=== PATIENT | female | born 1955 | race Caucasian/White ===

== ENCOUNTER 2024-02-26 05:35 | Outpatient (REF) | payer OTHER, SELFPAY ==
[2024-02-26 08:00] LABS: Basophils Absolute Auto 0.1 10^3/uL (0.0-0.1); Basophils Percent Auto 0.6 % (0.2-2.0); Eosinophils Absolute Auto 0.2 10^3/uL (0.0-0.7); Eosinophils Percent Auto 2.1 % (0.9-7.0); Hematocrit 33.3 % (36.0-48.0); Hemoglobin 10.8 g/dL (12.0-16.0); Immature Granulocytes Abs Auto 0.06 10^3/uL (0.00-0.03); Immature Granulocytes Pct Auto 0.6 % (0.0-0.5); Lymphocytes Absolute Auto 1.3 10^3/uL (1.2-3.8); Lymphocytes Percent Auto 11.8 % (20.5-60.0); Mean Corpuscular HGB Conc 32.4 g/dL (29.9-35.2); Mean Corpuscular Volume 95.7 fL (81.0-99.0); Mean Platelet Volume 8.7 fL (9.5-13.5); Monocytes Absolute Auto 0.6 10^3/uL (0.3-0.8); Monocytes Percent Auto 5.3 % (1.7-12.0); Neutrophils Absolute Auto 8.5 10^3/uL (1.4-6.5); Neutrophils Percent Auto 79.6 % (43.0-75.0); Platelet Count 203 10^3/uL (150-450); Red Blood Count 3.48 10^6/uL (4.20-5.40); Red Cell Distribution Width 13.5 % (11.0-15.0); White Blood Count 10.7 10^3/uL (4.0-11.0)
[2024-02-26 08:09] LABS: BUN Creatinine Ratio 19.6; Calcium 9.3 mg/dL (8.5-10.1); Chloride 101 mmol/L (98-107); Estimated GFR (African America 46 (>=60); Estimated GFR (Non-African Ame 38 (>=60); Glucose 91 mg/dL (74-106); Sodium 138 mmol/L (136-145)
== END 2024-02-26 05:36 | disposition home or self-care (01) ==
LOC: LAB 05:35
PROVIDERS: Visit Provider Family Medicine
DX: A41.9 Sepsis, unspecified organism (principal)
CPT/HCPCS: 36415; 80048; 85025

== ENCOUNTER 2024-03-04 03:14 | Outpatient (REF) | payer OTHER, SELFPAY ==
--- OUTSIDE RECORDS SUMMARY | 2024-03-04 03:23 | XMS_ITS ---
Author Name Auto Generated Organization OHIP Support Name Relationship Address Phone Cedric Jack Next of Kin [address] [place] [address] + Keturah Mobley Next of Kin [facility] [place] [address] + Gilmar Jacke Next of Kin [facility] [place] [address] + Keturah Mobley Next of Kin [address] [place] [phone] + HAYLEY CORDERO Next of Kin Unknown [phone] JAIME JACK Next of Kin Unknown [phone] CANELO JACK Next of Kin Unknown + Cedric Jack Next of Kin [address] [place] [address] + Keturah Mobley Next of Kin [facility] [place] [address] + HAYLEY CORDERO Next of Kin Unknown [phone] JAIME JACK Next of Kin Unknown [phone] CANELO JACK Next of Kin Unknown + HAYLEY CORDERO Next of Kin Unknown [phone] GUERO JAIME Next of Kin Unknown [phone] CANELO JACK Next of Kin Unknown + Guero Cedric Next of Kin [address] [place] [address] + Keturah Mobley Next of Kin [address] [place] [address] + Cedric Jack Next of Kin [address] [place] [address] + Keturah Mobley Next of Kin [address] [place] [address] + CORDERO, HAYLEY Next of Kin Unknown [phone] KLOS, JAIME Next of Kin Unknown [phone] KLOS, CANELO Next of Kin Unknown + CORDERO, HAYLEY Next of Kin Unknown [phone] KLOS, JAIME Next of Kin Unknown [phone] KLOS, CANELO Next of Kin Unknown + CORDERO, HAYLEY Next of Kin Unknown [phone] KLOS, JAIME Next of Kin Unknown [phone] KLOS, CANELO Next of Kin Unknown + KLOS, LETICIA Next of Kin Unknown + KLOS, LETICIA Next of Kin Unknown + KLOS, LETICIA Next of Kin Unknown + KLOS, LETICIA Next of Kin Unknown + KLOS, LETICIA Next of Kin Unknown + KLOS, LETICIA Next of Kin Unknown + KLOS, LETICIA Next of Kin Unknown + KLOS, LETICIA Next of Kin Unknown + KLOS, LETICIA Next of Kin Unknown + KLOS, LETICIA Next of Kin Unknown + KLOS, LETICIA Next of Kin Unknown + Care Team Providers Care Certified Energy Manager Name Role Phone Joceline Ortega Attending Unavailable Dr. Latrice Perez Primary Care Unavailab Joceline Panda Referring Unavailable Joceline Ortega Admitting Unavailable Dr. Latrice Perez Primary Care Unavailab JOCELINE Panda Attending Unavailable JOCELINE ORTEGA Referring Unavailable Hill, Dr. Latrice Whitfield Primary Care Unavailab le JES, JOCELINE Attending Unavailable JOCELINE ORTEGA Referring Unavailable Hill, Dr. Latrice Whitfield Primary Care Unavailab le Hill, Dr. Latrice Whitfield Primary Care Unavailab le Hardin, Dr. Latrice Whitfield Primary Care Unavailab le Hardin, Dr. Latrice Whitfield Primary Care Unavailab le Hardin, Dr. Latrice Whitfield Primary Care Unavailab le Hardin, Dr. Latrice Whitfield Primary Care Unavailab le Hardin, Dr. Latrice Whitfield Primary Care Unavailab le Hardin, Dr. Latrice Whitfield Primary Care Unavailab le Hardin, Dr. Latrice Whitfield Referring Unavailab le JOCELINE ORTEGA Attending Unavailable CHRIS, LATRICE Bartholomew Attending Unavailable HILL, LATRICE Bartholomew Referring Unavailable BARBARA, NANDO Ferreira Attending Unavailable DIDABDIRIZAK NANCE Attending Unavailable KUBITJosiah, NANDO Ferreira Attending Unavailable HILL, LATRICE Bartholomew Attending Unavailable HILL, LATRICE Bartholomew Referring Unavailable HILL, LATRICE Bartholomew Attending Unavailable HILL, LATRICE Bartholomew Referring Unavailable Hardin, Latrice Primary Care Unavailable Pradeep, Kianam Admitting Unavailable Ari Fernández Attending Unavailable [facility] Care Unavailable Andres Monterroso Attending Unavailabl Andres Ledezma Admitting Unavailabl e [facility] Care Unavailable Cheryl De La Garza Admitting Unavailable Cheryl De La Garza Attending Unavailable Caridad Ortegaa Admitting Unavailable Joceline Ortega Attending Unavailable [facility] Care Unavailable [facility] Care Unavailable Medardo Darling Admitting Unavailable Mazin Ortiz Attending Unavailab Vincenzo Ricketts Admitting Unavailabl e Pradeep Essam Consulting Unavailable Sawyer Dozier Attending Unavailable [facility] Primary Care Unavailable Deep Eubanks Consulting Unavailable Brooke Del Cid Consulting Unavailable Dandre Benson Consulting Unavailable Christa Hatch Consulting Unavailable Jermaine Rogel Consulting Unavail able Dara Fernandez Consulting Unavailable Galileo Kennedy Consulting Unavailab Brinda Baeza Consulting Unavailable Ortega, Joceline Consulting Unavailable Fabio, Olinda Bobeb Consulting Unavailab Connie Santillan Consulting Unavailable Raquel Schneider Consulting Unavailable Clarice Mcguire Consulting Unavailable [facility] Primary Care Unavailable [place] Consulting Unavailable Paige Aburto Admitting Unavailable Fahad Dobson Attending Unavailable Sydnie Milian Consulting Unavailable [facility] Primary Care Unavailable David Lane Attending Unavailable Ari Fernández Consulting Unavailable Medardo Darling Admitting Unavailable Andres Witt Admitting Unavailable Andres Witt Attending Unavailable Hardin, Latrice Primary Care Unavailable Hardin, Latrice Primary Care Unavailable Dwayne Apodaca Jr Admitting Unavailable Dwayne Apodaca Jr Attending Unavailable Hardin, Latrice Primary Care Unavailable Robyn Robin Admitting Unavailable Robyn Robin Attending Unavailable Hardin, Latrice Primary Care Unavailable Robyn Robin Admitting Unavailable NainpaRobyn Attending Unavailable Aryan Kellogg Admitting Unavailable Aryan Kellogg Attending Unavailable Hardin, Latrice Primary Care Unavailable Hardin, Latrice Primary Care Unavailable Aleksandr Pascual Admitting Unavailable Aleksandr Pascual Attending Unavailable Aleksandr Pascual Attending Unavailable PROBLEMS DATE TYPE CONDITION / CODE ATTENDING STATUS [facility] 02/13/2024 Unknown Nausea with vomi ting, unspecified / R11.2(ICD-10) [facility] 02/13/2024 Unknown Diarrhea, unspec ified / R19.7(ICD-10) [facility] 02/13/2024 Unknown Dehydration / E86.0(ICD-10) [facility] 02/13/2024 Unknown Type 2 diabetes mellitus with diabetic neuropathy, unspecified / E11.40(ICD-10) [facility] 02/13/2024 Unknown Type 2 diabetes mellitus with unspecified diabetic retinopathy without macular edema / E11.319(ICD-10) [facility] 02/13/2024 Unknown Type 2 diabetes mellitus with hyperglycemia / E11.65(ICD-10) [facility] 02/13/2024 Unknown Atherosclerotic heart disease of [place] coronary artery without angina pectoris / I25.10(ICD-10) [facility] 02/13/2024 Unknown Acute respirator y failure with hypoxia / J96.01(ICD-10) [facility] 02/13/2024 Unknown Morbid (severe) obesity with alveolar hypoventilation / E66.2(ICD-10) [facility] 02/13/2024 Unknown Elevated white b lood cell count, unspecified / D72.829(ICD-10) [facility] 02/13/2024 Unknown Varicose veins o f right lower extremity with ulcer of unspecified site / I83.019(ICD-10) [facility] 02/13/2024 Unknown Varicose veins o f left lower extremity with ulcer of unspecified site / I83.029(ICD-10) [facility] 02/13/2024 Unknown Non-pressure chr onic ulcer of unspecified part of right lower leg with unspecified severity / L97.919(ICD-10) [facility] 02/13/2024 Unknown Non-pressure chr onic ulcer of unspecified part of left lower leg with unspecified severity / L97.929(ICD-10) [facility] 02/13/2024 Unknown Hypo-osmolality and hyponatremia / E87.1(ICD-10) [facility] 02/13/2024 Unknown Chronic systolic (congestive) heart failure / I50.22(ICD-10) [facility] 02/13/2024 Unknown Coronary angiopl asty status / Z98.61(ICD-10) [facility] 02/13/2024 Unknown Hypomagnesemia / E83.42(ICD-10) [facility] 02/13/2024 Unknown Other ventricula r tachycardia / I47.29(ICD-10) [facility] 02/13/2024 Unknown Cellulitis, unspecified / L03.90(ICD-10) [facility] 02/13/2024 Unknown Generalized abdo jeremiah pain / R10.84(ICD-10) Andres Witt [facility] 01/04/2024 Unknown Non-pressure chr onic ulcer of unspecified part of right lower leg limited to breakdown of skin / L97.911(ICD-10) Cheryl De La Garza [facility] 12/14/2023 Unknown Pain in left ugo ulder / CE(ICD-10) Aryan Kellogg [facility] 12/13/2023 Unknown Atherosclerosis of [place] arteries of extremities with intermittent claudication, bilateral legs / CE(ICD-10) Andres Monterroso [facility] 09/11/2023 Unknown Radiculopathy, l umbar region / CE(ICD-10) NainchuchoRobyn Ru [facility] 08/31/2023 Unknown Sepsis, unspecif ied organism / CE(ICD-10) Doamekpor, Mazin E [facility] 08/31/2023 Unknown Unspecified abdo jeremiah pain / R10.9(ICD-10) Doamekpor, Mazin E [facility] 08/31/2023 Unknown Fever, unspecifi ed / R50.9(ICD-10) Doamekpor, Mazin E [facility] 08/31/2023 Unknown Hypokalemia / E87.6(ICD-10) Doamekpor, Mazin E [facility] 08/31/2023 Unknown Chronic kidney disease, stage 3 unspecified / N18.30(ICD-10) Doamekpor, Mazin E [facility] 08/31/2023 Unknown Type 2 diabetes mellitus with diabetic chronic kidney disease / E11.22(ICD-10) Doamekpor, Mazin E [facility] 08/31/2023 Unknown Constipation, unspecified / K59.00(ICD-10) Doamekpor, Mazin E [facility] 08/31/2023 Unknown Unspecified skin changes / R23.9(ICD-10) Doamekpor, Mazin E [facility] 08/31/2023 Unknown Gastro-esophagea l reflux disease without esophagitis / K21.9(ICD-10) Doamekpor, Mazin E [facility] 08/31/2023 Unknown Essential (prima ry) hypertension / I10(ICD-10) [facility] Unknown Morbid (severe) obesity due to excess calories / E66.01(ICD-10) [facility] 08/31/2023 Unknown Body mass index [BMI] 50.0-59.9, adult / Z68.43(ICD-10) [facility] 08/31/2023 Unknown Diverticulitis o f intestine, part unspecified, without perforation or abscess without bleeding / K57.92(ICD-10) [facility] 08/31/2023 Unknown Radiculopathy, l umbar region / M54.16(ICD-10) [facility] 06/01/2023 Active SEPSIS, UNSPECIF IED ORGANISM / A41.9(ICD-10) [facility] 06/01/2023 Active BACTEREMIA / R78.81(ICD-10) [facility] 06/01/2023 Active TYPE 2 DIABETES MELLITUS WITH DIABETIC CHRONIC KIDNEY DISEASE / E11.22(ICD-10) [facility] 06/01/2023 Active RETENTION OF URI NE, UNSPECIFIED / R33.9(ICD-10) [facility] 06/01/2023 Active HYPOKALEMIA / E87.6(ICD-10) [facility] 06/01/2023 Active HYPOTENSION, UNSPECIFIED / I95.9(ICD-10) [facility] 06/01/2023 Active DEPRESSION, UNSPECIFIED / F32.A(ICD-10) Alkesandr Pascual [facility] 05/31/2023 Active HYPERTENSIVE HEA RT AND CHRONIC KIDNEY DISEASE WITH HEART FAILURE AND STAGE 1 THROUGH STAGE 4 CHRONIC KIDNEY DISEASE, OR UNSPECIFIED CHRONIC KIDNEY DISEASE / I13.0(ICD-10) Aleksandr Pascual [facility] 05/31/2023 Active CHRONIC DIASTOLI C (CONGESTIVE) HEART FAILURE / I50.32(ICD-10) [facility] 05/31/2023 Active ACUTE KIDNEY SHANDA LURE, UNSPECIFIED / N17.9(ICD-10) [facility] 05/31/2023 Active URINARY TRACT INFECTION, SITE NOT SPECIFIED / N39.0(ICD-10) [facility] 05/31/2023 Active NON-ST ELEVATION (NSTEMI) MYOCARDIAL INFARCTION / I21.4(ICD-10) [facility] Active NONRHEUMATIC AOR TIC (VALVE) STENOSIS / I35.0(ICD-10) [facility] Active CHRONIC KIDNEY DISEASE, STAGE 3 UNSPECIFIED / N18.30(ICD-10) [facility] 05/31/2023 Active HYPERLIPIDEMIA, UNSPECIFIED / E78.5(ICD-10) [facility] 05/31/[facility]23 Active TYPE 2 DIABETES MELLITUS WITHOUT COMPLICATIONS / E11.9(ICD-10) [facility] 05/31/2023 Active ATHEROSCLEROTIC HEART DISEASE OF [place] CORONARY ARTERY WITHOUT ANGINA PECTORIS / I25.10(ICD-10) [facility] 05/31/2023 Active GASTRO-ESOPHAGEA L REFLUX DISEASE WITHOUT ESOPHAGITIS / K21.9(ICD-10) [facility] 05/31/2023 Active MORBID (SEVERE) OBESITY DUE TO EXCESS CALORIES / E66.01(ICD-10) [facility] Active UNSPECIFIED OSTEOARTHRITIS, UNSPECIFIED SITE / M19.90(ICD-10) [facility] 05/31/2023 Active MORBID (SEVERE) OBESITY WITH ALVEOLAR HYPOVENTILATION / E66.2(ICD-10) [facility] 05/31/2023 Active POLYNEUROPATHY, UNSPECIFIED / G62.9(ICD-10) [facility] 05/31/[facility]23 Active DIVERTICULOSIS O F INTESTINE, PART UNSPECIFIED, WITHOUT PERFORATION OR ABSCESS WITHOUT BLEEDING / K57.90(ICD-10) Aleksandr Pascual [facility] 05/31/2023 Active PRESENCE OF FREDDY NARY ANGIOPLASTY IMPLANT AND GRAFT / Z95.5(ICD-10) Aleksandr Pascual [facility] 05/31/2023 Active CORONARY ANGIOPL ASTY STATUS / Z98.61(ICD-10) Aleksandr Pascual [facility] 05/28/2023 Unknown Urinary tract infection, site not specified / CE(ICD-10) [facility] 05/28/2023 Unknown Bacteremia / R78.81(ICD-10) [facility] 05/28/2023 Unknown Chronic kidney disease, unspecified / N18.9(ICD-10) [facility] 05/28/2023 Unknown Hypertensive chr onic kidney disease with stage 1 through stage 4 chronic kidney disease, or unspecified chronic kidney disease / I12.9(ICD-10) [facility] 05/28/2023 Unknown Chronic diastoli c (congestive) heart failure / I50.32(ICD-10) [facility] 05/28/2023 Unknown Dorsalgia, unspecified / M54.9(ICD-10) [facility] 05/12/2023 Unknown Right heart fail ure, unspecified / CE(ICD-10) [facility] 05/12/2023 Unknown Acute kidney shanda lure, unspecified / N17.9(ICD-10) [facility] 05/04/2023 Unknown Acute on chronic diastolic (congestive) heart failure / CE(ICD-10) [facility] 05/04/2023 Unknown Type 2 diabetes mellitus without complications / E11.9(ICD-10) [facility] 05/04/2023 Unknown Right heart fail ure, unspecified / I50.810(ICD-10) Domingo, [facility] 03/16/2023 Final diagnosis (discharge) Athscl heart disease of [place] cor art w ang pctrs w spasm / I25.111(ICD-10) [facility] 03/16/2023 Final diagnosis (discharge) Hyperlipidemia, unspecified / E78.5(ICD-10) [facility] 03/16/2023 Final diagnosis (discharge) Essential (primary) hypertension / I10(ICD-10) [facility] 03/16/2023 Final diagnosis (discharge) Type 2 diabetes mellitus without complications / E11.9(ICD-10) [facility] 03/16/2023 Final diagnosis (discharge) Morbid (severe) obesity due to excess calories / E66.01(ICD-10) [facility] 03/16/2023 Final diagnosis (discharge) Body mass index [BMI] 50.0-59.9, adult / Z68.43(ICD-10) [facility] 03/16/2023 Final diagnosis (discharge) Presence of coronary angioplasty implant and graft / Z95.5(ICD-10) [facility] 03/16/2023 Active Athscl heart dis ease of [place] cor art w ang pctrs w spasm / I25.111(ICD-10) [facility] 03/15/2023 Admitting diagnosis Peripheral vascular angioplasty status / Z98.62(ICD-10) [facility] 03/15/2023 Admitting diagnosis Chest pain, unspecified / R07.9(ICD-10) [facility] PROCEDURES No Procedure Records Found RESULTS GLUCOSE POCT GLUCOMETERS Collected: 02/22/2024 10:40 AM Status: F Source: [facility] REPOSITORY TYPE CODE TESTS RESULT OUT OF RANGE REFERENCE UNITS LAB GLUPOC Glucose Poc Glucometers 153 mg/dL Result Comment: Random Gluco se Reference Range is dependent on time and content of last meal. Glucose of more than 200 mg/dL in a nonstressed, ambulatory subject supports the diagnosis of Diabetes Mellitus. PERFORMED BY: [place] [id number] PATHOLOGIST SALESPERSON HOSIERY XAVIER AGARWAL M.D. Performed By: #### GLULS ### # Point of Care testing , GLUCOSE POCT GLUCOMETERS Collected: 02/22/2024 6:36 A M Status: F Source: [facility] REPOSITORY TYPE CODE TESTS RESULT OUT OF RANGE REFERENCE UNITS LAB GLUPOC Glucose Poc Glucometers 96 mg/dL Result Comment: Random Gluc ose Reference Range is dependent on time and content of last meal. Glucose of more than 200 mg/dL in a nonstressed, ambulatory subject supports the diagnosis of Diabetes Mellitus. PERFORMED BY: [place] [address] PATHOLOGIST SALESPERSON HOSIERY XAVIER AGARWAL M.D. Performed By: #### GLULS ### # Point of Care testing , BASIC METABOLIC PANEL Collected: 2023 6:31 AM Status: F Source: [facility] REPOSITORY TYPE CODE TESTS RESULT OUT OF RANGE REFERENCE UNITS LAB GLU Glucose 69 Low 70-100 mg/dL Result Comment: Random Gluco se Reference Range is dependent on time and content of last meal. Glucose of more than 200 mg/dL in a nonstressed, ambulatory subject supports the diagnosis of Diabetes Mellitus. ADA recommended reference range LAB BUN Blood Urea Nitrogen 44 High 7-25 mg/dL LAB CREATT Creatinine 1.30 High 0.60-1.20 mg/dL LAB GFReNR Estimated GFR 44.513 LAB NA Sodium 140 Normal 136-145 mmol/L LAB K Potassium 4.2 Normal 3.5-5.1 mmol/L LAB CL Chloride 96 Low 98-107 mmol/L LAB CO2 Carbon Dioxide 33.9 High 21.0-31.0 mmol/L LAB GAP Anion Gap 14.3 Normal 6.0-15.0 LAB CA Calcium 8.7 Normal 8.6-10.3 mg/dL LAB CRCLPHA Creatinine Clr Calc Pharmacy 64.89 Performed By: #### BMP, DIFF CBC, MG #### [facility] [address] [place] [address] [facility] MAGNESIUM Collected: 6:31 AM Status: F Source: [facility] REPOSITORY TYPE CODE TESTS RESULT OUT OF RANGE REFERENCE UNITS LAB MG Magnesium 1.9 Normal 1.9-2.7 mg/dL Result Comment: PERFORMED BY : [address] [address] PATHOLOGIST SALESPERSON HOSIERY XAVIER AGARWAL M.D. Performed By: #### BMP, DIFF CBC, MG #### [facility] [address] [place] [address] [facility] DIFF AND CBC Collected: 02/22/2024 6:31 AM Status: F Source: [facility] REPOSITORY TYPE CODE TESTS RESULT OUT OF RANGE REFERENCE UNITS LAB WBC White Blood Count 17.1 High 3.8-11.6 10*3/uL LAB UNWBC Uncorrected WBC 17.1 High 3.8-11.6 10*3/uL LAB RBC Red Blood Count 3.67 Normal 3.60-5.00 LAB HGB Hemoglobin 11.2 Low 11.8-15.4 g/dL LAB HCT Hematocrit 34.0 Normal 34.0-46.4 % LAB MCV Mean Corpuscular Volume 92.6 Normal 80-100 fL LAB MCH Mean Corpuscular Hemoglobin 30.6 Normal 24.7-34.3 pg LAB MCHC Mean Corpuscular HGB Conc 33.0 Normal 32.0-35.0 g/dL LAB RDW Red Cell Distribution Width 14.3 Normal 11.9-15.3 % LAB PLT Platelet Count 285 Normal 150-450 10*3/uL LAB MPV Mean Platelet Volume 6.5 Normal 6.3-10.7 fL LAB SEG Segmented Neutrophils 82 High 50-70 % LAB LYMPH Lymphocytes 9 Low 18-42 % LAB MON Monocytes 4 Normal 2-11 % LAB EOS Eosinophils 3 Normal 1-3 % LAB MYELO Myelocytes 3 High 0-0 % LAB RM RBC Morphology Normal Normal LAB PLT EST Platelet Estimate Normal Normal LAB PLTM Platelet Morphology Normal Normal Result Comment: PERFORMED BY : [address] [address] PATHOLOGIST SALESPERSON HOSIERY XAVIER AGARWAL M.D. Performed By: #### BMP, DIFF CBC, MG #### [facility] [address] [place] [address] [facility] GLUCOSE POCT GLUCOMETERS Collected: 02/21/2024 8:38 P M Status: F Source: [facility] REPOSITORY TYPE CODE TESTS RESULT OUT OF RANGE REFERENCE UNITS LAB GLUPOC Glucose Poc Glucometers 141 mg/dL Result Comment: Random Gluco se Reference Range is dependent on time and content of last meal. Glucose of more than 200 mg/dL in a nonstressed, ambulatory subject supports the diagnosis of Diabetes Mellitus. PERFORMED BY: [place] [address] PATHOLOGIST SALESPERSON HOSIERY XAVIER AGARWAL M.D. Performed By: #### GLULS ### # Point of Care testing , GLUCOSE POCT GLUCOMETERS Collected: 02/21/2024 3:54 P M Status: F Source: [facility] REPOSITORY TYPE CODE TESTS RESULT OUT OF RANGE REFERENCE UNITS LAB GLUPOC Glucose Poc Glucometers 211 mg/dL Result Comment: Random Gluco se Reference Range is dependent on time and content of last meal. Glucose of more than 200 mg/dL in a nonstressed, ambulatory subject supports the diagnosis of Diabetes Mellitus. PERFORMED BY: [place] [id number] PATHOLOGIST SALESPERSON HOSIERY XAVIER AGARWAL M.D. Performed By: #### GLULS ### # Point of Care testing , GLUCOSE POCT GLUCOMETERS Collected: 02/21/2024 11:36 AM Status: F Source: [facility] REPOSITORY TYPE CODE TESTS RESULT OUT OF RANGE REFERENCE UNITS LAB GLUPOC Glucose Poc Glucometers 225 mg/dL Result Comment: Random Gluco se Reference Range is dependent on time and content of last meal. Glucose of more than 200 mg/dL in a nonstressed, ambulatory subject supports the diagnosis of Diabetes Mellitus. PERFORMED BY: [place] [id number] PATHOLOGIST SALESPERSON HOSIERY XAVIER AGARWAL M.D. Performed By: #### GLULS ### # Point of Care testing , ECH ECHO TRANSTHORACIC Observed: 024 11:16 AM Status: COMPLETED Source: [facility] REPOSITORY [facility] [place] Main [place] [address] [place] [address] Echocardiogram Signed Patient: Namrata Jack MR#: [id number] 6 : 1955 Acct:[id number] Age/Sex: 68 / F ADM Date: 02/13/24 Loc: Room: [address] [place] [address] Type: ADM IN Attending Dr: Sawyer Dozier MD Ordering Provider: Sawyer Dozier MD Date of Service: 02/21/24 ECH/ECH echo transthoracic: CAD, NS V TAch Copies to: MD Sawyer Nath MD BSA: 2.5 m2 BP: 124/72 mmHg HR: 70 Reason For Study: CAD, NS V TAch History: CHF, CKD, Obesity, CAD, DM, HTN, Asthma Interpretation Summary Ejection Fraction = 65-70%. The left ventricular wall motion is normal. Technically difficult study due to poor acoustic windows. Procedure/Quality: A two-dimensional transthoracic echocardiogram with color flow, Doppler and injection of contrast agent Definity was performed. The study was technically suboptimal in quality due to poor acoustic windows . Left Ventricle: The left ventricular size is normal. The left ventricular thickness is normal. Ejection Fraction = 65-70%. The left ventricular wall motion is normal. Right Ventricle: The right ventricle is not well visualized. Aortic Valve: The aortic valve is not well visualized. Mitral Valve: There is moderate mitral annular calcification. There is no mitral regurgitation noted. Tricuspid Valve: The tricuspid valve is not well visualized. Pulmonic Valve: The pulmonic valve is not well visualized. Arteries: The aortic root is normal size. Pericardium/Pleura: No pericardial effusion seen. There is no pleural effusion. IVC/Hepatic Veins: The inferior vena cava was not visualized during the exam. Measurements with Normals Ao root diam: 2.3 cm (2.0-3.6 cm) asc Aorta Diam: 2.8 cm(2.1-3.4cm) Doppler with Normals LV V1 max: 108.3 cm/sec (0.7-1.7m/s)MV E max bianka: 133.0 cm/sec(0.8-1.3m/s) MV A max bianka: 103.4 cm/sec(0.0-0.0m/s) MV E/A: 1.3 (<1.5) MMode/2D Measurements Calculations Ao root area: LVOT diam: 2.0 cmLVLd ap4: 6.8 cm SV(MOD-sp4): 4.2 cm2 LVOT area: EDV(MOD-sp4): 32.3 ml 3.2 cm2 46.3 ml LVLs ap4: 5.8 cm ESV(MOD-sp4): 14.0 ml EF(MOD-sp4): 69.8 % Doppler Measurements Calculations MV dec time: E/E' lat: 20.9 MV dec slope: Ao V2 max: 0.17 sec E/E' med: 13.3 777.5 cm/sec2 196.8 cm/sec Ao max P.5 mmHg Ao mean P.1 mmHg Ao V2 mean: 149.8 cm/sec Ao V2 VTI: 47.5 cm RASHAUN(I,D): 2.5 cm2 RASHAUN(V,D): 1.8 cm2 __ LV V1 max PG: RAP systole: 4.7 mmHg 5.0 mmHg LV V1 mean P.6 mmHg LV V1 mean: 76.8 cm/sec LV V1 VTI: 37.7 cm Transcribed By: SCV Performed At: 02/21/24 1116 Signed By: Keturah Lewis MD 02/21/24 1601 BASIC METABOLIC PANEL Collected: 2023 6:30 AM Status: F Source: [facility] REPOSITORY TYPE CODE TESTS RESULT OUT OF RANGE REFERENCE UNITS LAB GLU Glucose 109 High 70-100 mg/dL Result Comment: Random Gluco se Reference Range is dependent on time and content of last meal. Glucose of more than 200 mg/dL in a nonstressed, ambulatory subject supports the diagnosis of Diabetes Mellitus. ADA recommended reference range LAB BUN Blood Urea Nitrogen 50 High 7-25 mg/dL LAB CREATT Creatinine 1.19 Normal 0.60-1.20 mg/dL LAB GFReNR Estimated GFR 49.495 LAB NA Sodium 138 Normal 136-145 mmol/L LAB K Potassium 3.6 Normal 3.5-5.1 mmol/L LAB CL Chloride 93 Low 98-107 mmol/L LAB CO2 Carbon Dioxide 35.9 High 21.0-31.0 mmol/L LAB GAP Anion Gap 12.7 Normal 6.0-15.0 LAB CA Calcium 8.7 Normal 8.6-10.3 mg/dL LAB CRCLPHA Creatinine Clr Calc Pharmacy 70.83 Performed By: #### BMP, MG # ### [address] MAGNESIUM Collected: 6:30 AM Status: F Source: [facility] REPOSITORY TYPE CODE TESTS RESULT OUT OF RANGE REFERENCE UNITS LAB MG Magnesium 1.7 Low 1.9-2.7 mg/dL Result Comment: PERFORMED BY : [place] [address] PATHOLOGIST SALESPERSON HOSIERY XAVIER AGARWAL M.D. Performed By: #### BMP, MG # ### [place] [id number] [facility] GLUCOSE POCT GLUCOMETERS Collected: 02/21/2024 6:22 A M Status: F Source: [facility] REPOSITORY TYPE CODE TESTS RESULT OUT OF RANGE REFERENCE UNITS LAB GLUPOC Glucose Poc Glucometers 126 mg/dL Result Comment: Random Gluco se Reference Range is dependent on time and content of last meal. Glucose of more than 200 mg/dL in a nonstressed, ambulatory subject supports the diagnosis of Diabetes Mellitus. PERFORMED BY: [place] [address] PATHOLOGIST SALESPERSON HOSIERY XAVIER AGARWAL M.D. Performed By: #### GLULS ### # Point of Care testing , STOOL CULTURE Observed: 02/21/2024 2:31 AM Status: F Source: [facility] REPOSITORY Negative for Shiga Toxin 1 Negative for Shiga Toxin 2 Pred. Yeast Like Org Predominantly Yeast-like Organisms A negative Shiga Toxin result may occur if the antigen level in the specimen is below the detection limit of the assay. Stool culture results No Salmonella, Shigella, Campy or E. coli 0157:H7 Isolated PERFORMED BY: [place] [address] PATHOLOGIST SALESPERSON HOSIERY XAVIER AGARWAL M.D. Performed By: #### GI PROFIL E, STL #### [facility] , #### CUSTOOL #### [address] GASTROINTESTINAL PROFILE, PCR Collected: 02/21/2024 2 :31 AM Status: F Source: [facility] REPOSITORY Order Comment: SOURCE OF SPE CIMEN: stool TYPE CODE TESTS RESULT OUT OF RANGE REFERENCE UNITS LAB GICAMPYLOBACTER Campylobacter Not Detected Not Detected LAB GICDT C Difficile Toxi n A/B Not Detected Not Detected LAB GIPLESSHIG Plesiomonas shigelloides Not Detected Not Detected LAB GISALMONELLA Salmonella Not Detected Not Detected LAB GIVIBRIO Vibrio Not Detected Not Detected LAB GIVIBCHOL Vibrio cholerae Not Detected Not Detected LAB GIYERENT Yersinia enterocolitica Not Detected Not Detected LAB GIENTECOLI Enteroaggregativ e E coli Not Detected Not Detected LAB GIENTPECOLI Enteropathogenic E coli Not Detected Not Detected LAB GIENTTECOLI Enterotoxigenic E coli Not Detected Not Detected LAB GISHIGTECOLI Czest-dpdrz-drrf uc ing E coli Not Detected Not Detected LAB [id number] E coli O157 Not applicable Not Detected LAB GISHIGENTECOLI Shigella/Enteroi nv asive E coli Not Detected Not Detected LAB GICRYPTO Cryptosporidium Not Detected Not Detected LAB GICYCLOCAY Cyclospora cayetanensis Not Detected Not Detected LAB GIENTAHISTO Entamoeba histolytica Not Detected Not Detected LAB GIGIARDIALAM Giardia lamblia Not Detected Not Detected LAB [id number] Adenovirus F 40/41 Not Detected Not Detected LAB GIASTRO Astrovirus Not Detected Not Detected LAB GINORO Norovirus GI/GII Not Detected Not Detected LAB GIROTA Rotavirus A Not Detected Not Detected LAB GISAPO Sapovirus Not Detected Not Detected Result Comment: Performed at : [address] [id number] Lead Esthetician: Rohit eMsa MD, Phone: [phone] PERFORMED BY: [place] [address] PATHOLOGIST SALESPERSON HOSIERY XAVIER AGARWAL M.D. Performed By: #### GI PROFIL E, STL #### [facility] , #### CUSTOOL #### [place] [id number] [facility] CLOSTRIDIUM DIFFICILE Collected: 02/21/2024 2:31 AM Status: F Source: [facility] REPOSITORY Order Comment: > or = to 3 l oose/watery stools in the last 24 HRS? Y Is patient on promotility agents or tube feeding? Y TYPE CODE TESTS RESULT OUT OF RANGE REFERENCE UNITS LAB CDTRES Clostridium Difficile Negative Negative Result Comment: Testing perf ormed by RT-PCR PERFORMED BY: [place] [address] PATHOLOGIST SALESPERSON HOSIERY XAVIER AGARWAL M.D. Performed By: #### CDT #### [place] [id number] [facility] GLUCOSE POCT GLUCOMETERS Collected: 02/20/2024 8:27 P M Status: F Source: [facility] REPOSITORY TYPE CODE TESTS RESULT OUT OF RANGE REFERENCE UNITS LAB GLUPOC Glucose Poc Glucometers 219 mg/dL Result Comment: Random Gluco se Reference Range is dependent on time and content of last meal. Glucose of more than 200 mg/dL in a nonstressed, ambulatory subject supports the diagnosis of Diabetes Mellitus. PERFORMED BY: [place] [address] PATHOLOGIST SALESPERSON HOSIERY XAVIER AGARWAL M.D. Performed By: #### GLULS ### # Point of Care testing , GLUCOSE POCT GLUCOMETERS Collected: 02/20/2024 4:33 P M Status: F Source: [facility] REPOSITORY TYPE CODE TESTS RESULT OUT OF RANGE REFERENCE UNITS LAB GLUPOC Glucose Poc Glucometers 143 mg/dL Result Comment: Random Gluco se Reference Range is dependent on time and content of last meal. Glucose of more than 200 mg/dL in a nonstressed, ambulatory subject supports the diagnosis of Diabetes Mellitus. LAB COMM1 Commemt1 Glu2: Cleaned Meter Result Comment: PERFORMED BY : [place] [address] PATHOLOGIST SALESPERSON HOSIERY XAVIER AGARWAL M.D. Performed By: #### GLULS ### # Point of Care testing , US VENOUS DUPLEX LE BI Observed: 024 3:48 PM Status: COMPLETED Source: [facility] REPOSITORY [facility] [place] [address] Ultrasound Report Signed Patient: Namrata Jack MR#: [id number] 6 : 1955 Acct:[id number] Age/Sex: 68 / F ADM Date: 02/13/24 Loc: Room: [address] [place] [address] Type: ADM IN Attending Dr: Sawyer Dozier MD Ordering Provider: Sawyer Dozier MD Date of Service: 02/19/24 US/US venous duplex LE BI: Edema r/o DVT Copies to: Sawyer Dozier MD BILATERAL LOWER EXTREMITY VENOUS DUPLEX INDICATION: swollen painful legs PROCEDURE: Color-flow duplex scanning is used to interrogate the deep venous system of the right and left lower extremities. The common femoral vein, femoral vein and popliteal vein show good compressibility with normal proximal and distal augmentation. The posterior tibial and peroneal veins are compressible. US/US venous duplex LE BI IMPRESSION: NO EVIDENCE FOR DEEP VEIN THROMBOSIS OR PROXIMAL SUPERFICIAL THROMBOPHLEBITIS IN THE RIGHT OR LEFT LOWER EXTREMITY. Impression dictated by: Harmeet Jalloh M.D.02/20/2024 3:48 PM Dictation Location: [place] [address] Tech: Meri Celestin Transcribed By: FABRICIO 02/20/24 1548 Dictated By: Harmeet Jalloh MD 02/20/24 154 Signed By: <Electronically signed by MD Harmeet Jalloh in OV> 02/20/24 1548 GLUCOSE POCT GLUCOMETERS Collected: 02/20/2024 11:31 AM Status: F Source: [facility] REPOSITORY TYPE CODE TESTS RESULT OUT OF RANGE REFERENCE UNITS LAB GLUPOC Glucose Poc Glucometers 248 mg/dL Result Comment: Random Gluco se Reference Range is dependent on time and content of last meal. Glucose of more than 200 mg/dL in a nonstressed, ambulatory subject supports the diagnosis of Diabetes Mellitus. PERFORMED BY: [facility] [address] [place] [address] PATHOLOGIST SALESPERSON HOSIERY XAVIER AGARWAL M.D. Performed By: #### GLULS ### # Point of Care testing , GLUCOSE POCT GLUCOMETERS Collected: 02/20/2024 6:47 A M Status: F Source: [facility] REPOSITORY TYPE CODE TESTS RESULT OUT OF RANGE REFERENCE UNITS LAB GLUPOC Glucose Poc Glucometers 160 mg/dL Result Comment: Random Gluco se Reference Range is dependent on time and content of last meal. Glucose of more than 200 mg/dL in a nonstressed, ambulatory subject supports the diagnosis of Diabetes Mellitus. PERFORMED BY: [facility] [address] [place] [address] PATHOLOGIST SALESPERSON HOSIERY XAVIER AGARWAL M.D. Performed By: #### GLULS ### # Point of Care testing , DIFF AND CBC Collected: 02/20/2024 5:50 AM Status: F Source: [facility] REPOSITORY TYPE CODE TESTS RESULT OUT OF RANGE REFERENCE UNITS LAB WBC White Blood Count 16.5 High 3.8-11.6 10*3/ uL LAB UNWBC Uncorrected WBC 16.5 High 3.8-11.6 10*3/uL LAB RBC Red Blood Count 3.91 Normal 3.60-5.00 LAB HGB Hemoglobin 12.0 Normal 11.8-15.4 g/dL LAB HCT Hematocrit 36.1 Normal 34.0-46.4 % LAB MCV Mean Corpuscular Volume 92.3 Normal 80-100 fL LAB MCH Mean Corpuscular Hemoglobin 30.7 Normal 24.7-34.3 pg LAB MCHC Mean Corpuscular HGB Conc 33.3 Normal 32.0-35.0 g/dL LAB RDW Red Cell Distribution Width 14.5 Normal 11.9-15.3 % LAB PLT Platelet Count 311 Normal 150-450 10*3/uL LAB MPV Mean Platelet Volume 6.9 Normal 6.3-10.7 fL LAB SEG Segmented Neutrophils 66 Normal 50-70 % LAB BAND Band Neutrophils 13 High 0-5 % LAB LYMPH Lymphocytes 6 Low 18-42 % LAB MON Monocytes 3 Normal 2-11 % LAB EOS Eosinophils 4 High 1-3 % LAB META Metamyelocytes 7 High 0-0 % LAB MYELO Myelocytes 1 High 0-0 % LAB POIK Poikilocytosis Slight LAB PLT EST Platelet Estimate Normal Normal LAB PLTM Platelet Morphology Normal Normal Result Comment: PERFORMED BY : [place] [address] PATHOLOGIST SALESPERSON HOSIERY XAVIER AGARWAL M.D. Performed By: #### DIFF CBC #### [facility] [address] [place] [address] HEPATIC PANEL Collected: 02/20/2024 5:50 AM Status: F Source: [facility] REPOSITORY TYPE CODE TESTS RESULT OUT OF RANGE REFERENCE UNITS LAB TP Total Protein 5.0 Low 6.4-8.9 g/dL LAB ALB Albumin Level 2.6 Low 3.5-5.7 g/dL LAB GLOB Globulin 2.4 g/dL LAB AGRATIO Albumin/Globulin Ratio 1.1 LAB BILIT Bilirubin,Total 0.5 Normal 0.3-1.0 mg/dL LAB BILID Bilirubin,Direct 0.10 Normal 0.03-0.18 mg/dL LAB BILII Bilirubin,Indirect 0.4 mg/dL LAB AST Aspartate Amino Transferase 41 High 13-39 U/L LAB ALT Alanine Aminotransferase 28 Normal 7-52 U/L LAB ALP Alkaline Phosphatase 108 High 34-104 U/L Performed By: #### HEPATIC, BMP #### [facility] [address] [place] [address] BASIC METABOLIC PANEL Collected: 2023 5:50 AM Status: F Source: [facility] REPOSITORY TYPE CODE TESTS RESULT OUT OF RANGE REFERENCE UNITS LAB GLU Glucose 140 High 70-100 mg/dL Result Comment: Random Gluco se Reference Range is dependent on time and content of last meal. Glucose of more than 200 mg/dL in a nonstressed, ambulatory subject supports the diagnosis of Diabetes Mellitus. ADA recommended reference range LAB BUN Blood Urea Nitrogen 56 High 7-25 mg/dL LAB CREATT Creatinine 1.21 High 0.60-1.20 mg/dL LAB GFReNR Estimated GFR 48.514 LAB NA Sodium 136 Normal 136-145 mmol/L LAB K Potassium 3.7 Normal 3.5-5.1 mmol/L LAB CL Chloride 92 Low 98-107 mmol/L LAB CO2 Carbon Dioxide 35.0 High 21.0-31.0 mmol/L LAB GAP Anion Gap 12.7 Normal 6.0-15.0 LAB CA Calcium 8.7 Normal 8.6-10.3 mg/dL LAB CRCLPHA Creatinine Clr Calc Pharmacy 69.80 Result Comment: PERFORMED BY : [place] [address] PATHOLOGIST SALESPERSON HOSIERY XAVIER AGARWAL M.D. Performed By: #### HEPATIC, BMP #### [address] GLUCOSE POCT GLUCOMETERS Collected: 02/19/2024 8:46 P M Status: F Source: [facility] REPOSITORY TYPE CODE TESTS RESULT OUT OF RANGE REFERENCE UNITS LAB GLUPOC Glucose Poc Glucometers 174 mg/dL Result Comment: Random Gluco se Reference Range is dependent on time and content of last meal. Glucose of more than 200 mg/dL in a nonstressed, ambulatory subject supports the diagnosis of Diabetes Mellitus. PERFORMED BY: [place] [address] PATHOLOGIST SALESPERSON HOSIERY XAVIER AGARWAL M.D. Performed By: #### GLULS ### # Point of Care testing , GLUCOSE POCT GLUCOMETERS Collected: 02/19/2024 4:50 P M Status: F Source: [facility] REPOSITORY TYPE CODE TESTS RESULT OUT OF RANGE REFERENCE UNITS LAB GLUPOC Glucose Poc Glucometers 83 mg/dL Result Comment: Random Gluco se Reference Range is dependent on time and content of last meal. Glucose of more than 200 mg/dL in a nonstressed, ambulatory subject supports the diagnosis of Diabetes Mellitus. PERFORMED BY: [place] [id number] PATHOLOGIST SALESPERSON HOSIERY XAVIER AGARWAL M.D. Performed By: #### GLULS ### # Point of Care testing , GLUCOSE POCT GLUCOMETERS Collected: 02/19/2024 11:10 AM Status: F Source: [facility] REPOSITORY TYPE CODE TESTS RESULT OUT OF RANGE REFERENCE UNITS LAB GLUPOC Glucose Poc Glucometers 259 mg/dL Result Comment: Random Gluco se Reference Range is dependent on time and content of last meal. Glucose of more than 200 mg/dL in a nonstressed, ambulatory subject supports the diagnosis of Diabetes Mellitus. LAB COMM1 Commemt1 Glu2: Cleaned Meter Result Comment: PERFORMED BY : [facility] [address] [place] [address] PATHOLOGIST SALESPERSON HOSIERY XAVIER AGARWAL M.D. Performed By: #### GLULS ### # Point of Care testing , GLUCOSE POCT GLUCOMETERS Collected: 02/19/2024 6:45 A M Status: F Source: [facility] REPOSITORY TYPE CODE TESTS RESULT OUT OF RANGE REFERENCE UNITS LAB GLUPOC Glucose Poc Glucometers 205 mg/dL Result Comment: Random Gluco se Reference Range is dependent on time and content of last meal. Glucose of more than 200 mg/dL in a nonstressed, ambulatory subject supports the diagnosis of Diabetes Mellitus. PERFORMED BY: [facility] [address] [place] [address] PATHOLOGIST SALESPERSON HOSIERY XAVIER AGARWAL M.D. Performed By: #### GLULS ### # Point of Care testing , DIFF AND CBC Collected: 02/19/2024 6:22 AM Status: F Source: [facility] REPOSITORY TYPE CODE TESTS RESULT OUT OF RANGE REFERENCE UNITS LAB WBC White Blood Count 19.6 High 3.8-11.6 10*3/ uL LAB UNWBC Uncorrected WBC 19.6 High 3.8-11.6 10*3/uL LAB RBC Red Blood Count 3.81 Normal 3.60-5.00 LAB HGB Hemoglobin 11.8 Normal 11.8-15.4 g/dL LAB HCT Hematocrit 35.2 Normal 34.0-46.4 % LAB MCV Mean Corpuscular Volume 92.5 Normal 80-100 fL LAB MCH Mean Corpuscular Hemoglobin 31.0 Normal 24.7-34.3 pg LAB MCHC Mean Corpuscular HGB Conc 33.5 Normal 32.0-35.0 g/dL LAB RDW Red Cell Distribution Width 14.4 Normal 11.9-15.3 % LAB PLT Platelet Count 288 Normal 150-450 10*3/uL LAB MPV Mean Platelet Volume 7.4 Normal 6.3-10.7 fL Result Comment: PERFORMED BY : [place] [address] PATHOLOGIST SALESPERSON HOSIERY XAVIER AGARWAL M.D. LAB SEG Segmented Neutrophils 76 High 50-70 % LAB BAND Band Neutrophils 6 High 0-5 % LAB LYMPH Lymphocytes 3 Low 18-42 % LAB MON Monocytes 3 Normal 2-11 % LAB EOS Eosinophils 4 High 1-3 % LAB BASO Basophils 1 Normal 0-2 % LAB META Metamyelocytes 3 High 0-0 % LAB MYELO Myelocytes 4 High 0-0 % LAB POIK Poikilocytosis Slight LAB ANISO Anisocytosis Slight LAB PLT EST Platelet Estimate Normal Normal LAB PLTM Platelet Morphology Normal Normal Result Comment: PERFORMED BY : [place] [address] PATHOLOGIST SALESPERSON HOSIERY XAVIER AGARWAL M.D. Performed By: #### DIFF CBC #### [place] [id number] [facility] BASIC METABOLIC PANEL Collected: 2023 6:22 AM Status: F Source: [facility] REPOSITORY TYPE CODE TESTS RESULT OUT OF RANGE REFERENCE UNITS LAB GLU Glucose 190 High 70-100 mg/dL Result Comment: Random Gluco se Reference Range is dependent on time and content of last meal. Glucose of more than 200 mg/dL in a nonstressed, ambulatory subject supports the diagnosis of Diabetes Mellitus. ADA recommended reference range LAB BUN Blood Urea Nitrogen 66 High 7-25 mg/dL LAB CREATT Creatinine 1.43 Increased 0.60-1.20 mg/dL LAB GFReNR Estimated GFR 39.702 LAB NA Sodium 132 Low 136-145 mmol/L LAB K Potassium 3.7 Normal 3.5-5.1 mmol/L LAB CL Chloride 92 Low 98-107 mmol/L LAB CO2 Carbon Dioxide 32.0 High 21.0-31.0 mmol/L LAB GAP Anion Gap 11.7 Normal 6.0-15.0 LAB CA Calcium 9.2 Normal 8.6-10.3 mg/dL LAB CRCLPHA Creatinine Clr Calc Pharmacy 53.79 Result Comment: PERFORMED BY : [address] [place] [address] PATHOLOGIST SALESPERSON HOSIERY XAVIER AGARWAL M.D. Performed By: #### BMP #### [address] [address] [facility] GLUCOSE POCT GLUCOMETERS Collected: 02/18/2024 8:37 P M Status: F Source: [facility] REPOSITORY TYPE CODE TESTS RESULT OUT OF RANGE REFERENCE UNITS LAB GLUPOC Glucose Poc Glucometers 218 mg/dL Result Comment: Random Gluco se Reference Range is dependent on time and content of last meal. Glucose of more than 200 mg/dL in a nonstressed, ambulatory subject supports the diagnosis of Diabetes Mellitus. PERFORMED BY: [place] [address] PATHOLOGIST SALESPERSON HOSIERY XAVIER AGARWAL M.D. Performed By: #### GLULS ### # Point of Care testing , GLUCOSE POCT GLUCOMETERS Collected: 02/18/2024 5:03 P M Status: F Source: [facility] REPOSITORY TYPE CODE TESTS RESULT OUT OF RANGE REFERENCE UNITS LAB GLUPOC Glucose Poc Glucometers 231 mg/dL Result Comment: Random Gluco se Reference Range is dependent on time and content of last meal. Glucose of more than 200 mg/dL in a nonstressed, ambulatory subject supports the diagnosis of Diabetes Mellitus. PERFORMED BY: [address] [place] [address] PATHOLOGIST SALESPERSON HOSIERY XAVIER AGARWAL M.D. Performed By: #### GLULS ### # Point of Care testing , GLUCOSE POCT GLUCOMETERS Collected: 02/18/2024 11:21 AM Status: F Source: [facility] REPOSITORY TYPE CODE TESTS RESULT OUT OF RANGE REFERENCE UNITS LAB GLUPOC Glucose Poc Glucometers 212 mg/dL Result Comment: Random Gluco se Reference Range is dependent on time and content of last meal. Glucose of more than 200 mg/dL in a nonstressed, ambulatory subject supports the diagnosis of Diabetes Mellitus. PERFORMED BY: [address] [place] [address] PATHOLOGIST SALESPERSON HOSIERY XAVIER AGARWAL M.D. Performed By: #### GLULS ### # Point of Care testing , GLUCOSE POCT GLUCOMETERS Collected: 02/18/2024 6:43 A M Status: F Source: [facility] REPOSITORY TYPE CODE TESTS RESULT OUT OF RANGE REFERENCE UNITS LAB GLUPOC Glucose Poc Glucometers 137 mg/dL Result Comment: Random Gluco se Reference Range is dependent on time and content of last meal. Glucose of more than 200 mg/dL in a nonstressed, ambulatory subject supports the diagnosis of Diabetes Mellitus. PERFORMED BY: [place] [address] PATHOLOGIST SALESPERSON HOSIERY XAVIER AGARWAL M.D. Performed By: #### GLULS ### # Point of Care testing , BASIC METABOLIC PANEL Collected: 2023 6:06 AM Status: F Source: [facility] REPOSITORY TYPE CODE TESTS RESULT OUT OF RANGE REFERENCE UNITS LAB GLU Glucose 133 High 70-100 mg/dL Result Comment: Random Gluco se Reference Range is dependent on time and content of last meal. Glucose of more than 200 mg/dL in a nonstressed, ambulatory subject supports the diagnosis of Diabetes Mellitus. ADA recommended reference range LAB BUN Blood Urea Nitrogen 74 High 7-25 mg/dL LAB CREATT Creatinine 2.00 Increased 0.60-1.20 mg/dL LAB GFReNR Estimated GFR 26.544 LAB NA Sodium 131 Low 136-145 mmol/L LAB K Potassium 3.5 Normal 3.5-5.1 mmol/L LAB CL Chloride 91 Low 98-107 mmol/L LAB CO2 Carbon Dioxide 32.1 High 21.0-31.0 mmol/L LAB GAP Anion Gap 11.4 Normal 6.0-15.0 LAB CA Calcium 9.3 Normal 8.6-10.3 mg/dL LAB CRCLPHA Creatinine Clr Calc Pharmacy 38.47 Result Comment: PERFORMED BY : [place] [address] PATHOLOGIST SALESPERSON HOSIERY XAVIER AGARWAL M.D. Performed By: #### BMP #### [place] [address] [place] DIFF AND CBC Collected: 02/18/2024 6:06 AM Status: F Source: [facility] REPOSITORY TYPE CODE TESTS RESULT OUT OF RANGE REFERENCE UNITS LAB WBC White Blood Count 18.1 High 3.8-11.6 10*3/ uL LAB UNWBC Uncorrected WBC 18.1 High 3.8-11.6 10*3/uL LAB RBC Red Blood Count 3.99 Normal 3.60-5.00 LAB HGB Hemoglobin 12.3 Normal 11.8-15.4 g/dL LAB HCT Hematocrit 36.8 Normal 34.0-46.4 % LAB MCV Mean Corpuscular Volume 92.3 Normal 80-100 fL LAB MCH Mean Corpuscular Hemoglobin 30.8 Normal 24.7-34.3 pg LAB MCHC Mean Corpuscular HGB Conc 33.4 Normal 32.0-35.0 g/dL LAB RDW Red Cell Distribution Width 14.4 Normal 11.9-15.3 % LAB PLT Platelet Count 261 Normal 150-450 10*3/uL LAB MPV Mean Platelet Volume 7.9 Normal 6.3-10.7 fL Result Comment: PERFORMED BY : [place] [id number] PATHOLOGIST SALESPERSON HOSIERY XAVIER AGARWAL M.D. LAB SEG Segmented Neutrophils 73 High 50-70 % LAB BAND Band Neutrophils 4 Normal 0-5 % LAB LYMPH Lymphocytes 5 Low 18-42 % LAB MON Monocytes 4 Normal 2-11 % LAB EOS Eosinophils 3 Normal 1-3 % LAB META Metamyelocytes 5 High 0-0 % LAB MYELO Myelocytes 5 High 0-0 % LAB PROM Promyelocytes 1 High 0-0 % LAB NRBC Nucleated Red Blood Cell 1 High 0-0 /100{WBC } LAB POIK Poikilocytosis Slight LAB ANISO Anisocytosis Slight LAB PLT EST Platelet Estimate Normal Normal LAB PLTM Platelet Morphology Normal Normal Result Comment: PERFORMED BY : [place] [address] PATHOLOGIST SALESPERSON HOSIERY XAVIER AGARWAL M.D. Performed By: #### DIFF CBC #### [address] GLUCOSE POCT GLUCOMETERS Collected: 02/17/2024 8:49 P M Status: F Source: [facility] REPOSITORY TYPE CODE TESTS RESULT OUT OF RANGE REFERENCE UNITS LAB GLUPOC Glucose Poc Glucometers 206 mg/dL Result Comment: Random Gluco se Reference Range is dependent on time and content of last meal. Glucose of more than 200 mg/dL in a nonstressed, ambulatory subject supports the diagnosis of Diabetes Mellitus. PERFORMED BY: [address] [address] PATHOLOGIST SALESPERSON HOSIERY AXVIER AGARWAL M.D. Performed By: #### GLULS ### # Point of Care testing , GLUCOSE POCT GLUCOMETERS Collected: 02/17/2024 4:37 P M Status: F Source: [facility] REPOSITORY TYPE CODE TESTS RESULT OUT OF RANGE REFERENCE UNITS LAB GLUPOC Glucose Poc Glucometers 290 mg/dL Result Comment: Random Gluco se Reference Range is dependent on time and content of last meal. Glucose of more than 200 mg/dL in a nonstressed, ambulatory subject supports the diagnosis of Diabetes Mellitus. PERFORMED BY: [address] [address] PATHOLOGIST SALESPERSON HOSIERY XAVIER AGARWAL M.D. Performed By: #### GLULS ### # Point of Care testing , CT ABDOMEN PELVIS WO CON Observed: 02/16 2:51 PM Status: COMPLETED Source: [facility] REPOSITORY [facility] Main [address] [address] [address] Scan Report Signed Patient: Namrata Jack MR#: [id number] 6 : 1955 Acct:[id number] Age/Sex: 68 / F ADM Date: 02/13/24 Loc: Room: [address] [place] [address] Type: ADM IN Attending Dr: Vincenzo Ragsdale DO Copies to: Vincenzo Ragsdale DO Ordering Provider: Vincenzo Ragsdale DO Date of Service: 02/17/24 CT/CT abdomen pelvis wo con: left flank pain CT ABDOMEN AND PELVIS WITHOUT CONTRAST CLINICAL DATA: Left flank pain with nausea, vomiting and diarrhea. COMPARISON: 02/13/2024 Spiral images were obtained through the abdomen and pelvis without contrast. This CT exam was performed using one or more following dose reduction techniques: Automated exposure control, adjustment of the mA and/or kV according to patient size, or use of iterative reconstruction technique. Limited cuts through the lung bases show calcification at the mitral annulus. There is subtle patchy groundglass density. There are calcified granulomas. A trace amount of pleural fluid is seen on the left. Assessment of the intra-abdominal organs is slightly limited by the absence of contrast and artifact related to large body habitus. The gallbladder is surgically absent. The liver shows no acute findings. There are splenic granulomas. There is minimal adrenal limb thickening. The pancreas is atrophic. There is bilateral perinephric fibrofatty stranding. No renal calculi or hydronephrosis are identified. No ureteral dilatation or stones are seen. There is minor atherosclerotic plaque at the aorta, proximal visceral and iliac arteries. There are small abdominal lymph nodes. No ascites is present. The small bowel loops are normal caliber. There is stool along the colon. Postoperative and degenerative changes are present at the spine. Patient has a dorsal stimulator. Images through the pelvis show no dilated small bowel. There is air within the sigmoid colon. There is rectal stool. No diverticular disease is noted. The appendix and uterus are surgically absent. No urinary bladder abnormalities are seen. There is no ascites. There is mild skin thickening and subcutaneous infiltrative change at the anterior pelvic wall. This might relate to medicinal injections. CT/CT abdomen pelvis wo con IMPRESSION: MINOR BASILAR PARENCHYMAL CHANGES AND TINY LEFT EFFUSION. GRANULOMATOUS CHANGES. NO BOWEL OR URINARY TRACT OBSTRUCTION. NO ACUTE FINDINGS. Impression dictated by: Jessica Hawkins M.D.02/17/2024 2:58 PM Dictation Location: [place] [address] Transcribed By: [facility] 02/17/24 1458 Dictated By: Jessica Hawkins MD 02/17/24 1451 Signed By: <Electronically signed by MD Jessica Hawkins in OV> 02/17/24 1458 GLUCOSE POCT GLUCOMETERS Collected: 02/17/2024 11:15 AM Status: F Source: [facility] REPOSITORY TYPE CODE TESTS RESULT OUT OF RANGE REFERENCE UNITS LAB GLUPOC Glucose Poc Glucometers 196 mg/dL Result Comment: Random Gluco se Reference Range is dependent on time and content of last meal. Glucose of more than 200 mg/dL in a nonstressed, ambulatory subject supports the diagnosis of Diabetes Mellitus. PERFORMED BY: [place] [address] [place] [id number] PATHOLOGIST SALESPERSON HOSIERY XAVIER AGARWAL M.D. Performed By: #### GLULS ### # Point of Care testing , GLUCOSE POCT GLUCOMETERS Collected: 02/17/2024 7:14 A M Status: F Source: [facility] REPOSITORY TYPE CODE TESTS RESULT OUT OF RANGE REFERENCE UNITS LAB GLUPOC Glucose Poc Glucometers 155 mg/dL Result Comment: Random Gluco se Reference Range is dependent on time and content of last meal. Glucose of more than 200 mg/dL in a nonstressed, ambulatory subject supports the diagnosis of Diabetes Mellitus. PERFORMED BY: [place] [address] PATHOLOGIST SALESPERSON HOSIERY XAVIER AGARWAL M.D. Performed By: #### GLULS ### # Point of Care testing , BASIC METABOLIC PANEL Collected: 2023 6:13 AM Status: F Source: [facility] REPOSITORY TYPE CODE TESTS RESULT OUT OF RANGE REFERENCE UNITS LAB GLU Glucose 142 High 70-100 mg/dL Result Comment: Random Gluco se Reference Range is dependent on time and content of last meal. Glucose of more than 200 mg/dL in a nonstressed, ambulatory subject supports the diagnosis of Diabetes Mellitus. ADA recommended reference range LAB BUN Blood Urea Nitrogen 84 High 7-25 mg/dL LAB CREATT Creatinine 2.68 High 0.60-1.20 mg/dL LAB GFReNR Estimated GFR 18.683 LAB NA Sodium 127 Low 136-145 mmol/L LAB K Potassium 3.6 Normal 3.5-5.1 mmol/L LAB CL Chloride 90 Low 98-107 mmol/L LAB CO2 Carbon Dioxide 28.2 Normal 21.0-31.0 mmol/L LAB GAP Anion Gap 12.4 Normal 6.0-15.0 LAB CA Calcium 8.8 Normal 8.6-10.3 mg/dL LAB CRCLPHA Creatinine Clr Calc Pharmacy 28.70 Result Comment: PERFORMED BY : [place] [address] PATHOLOGIST SALESPERSON HOSIERY XAVIER AGARWAL M.D. Performed By: #### BMP, DIFF CBC #### [address] [address] [place] DIFF AND CBC Collected: 02/17/2024 6:13 AM Status: F Source: [facility] REPOSITORY TYPE CODE TESTS RESULT OUT OF RANGE REFERENCE UNITS LAB WBC White Blood Count 16.4 High 3.8-11.6 10*3/ uL LAB UNWBC Uncorrected WBC 16.4 High 3.8-11.6 10*3/uL LAB RBC Red Blood Count 3.74 Normal 3.60-5.00 LAB HGB Hemoglobin 11.5 Low 11.8-15.4 g/dL LAB HCT Hematocrit 34.7 Normal 34.0-46.4 % LAB MCV Mean Corpuscular Volume 92.8 Normal 80-100 fL LAB MCH Mean Corpuscular Hemoglobin 30.9 Normal 24.7-34.3 pg LAB MCHC Mean Corpuscular HGB Conc 33.2 Normal 32.0-35.0 g/dL LAB RDW Red Cell Distribution Width 14.2 Normal 11.9-15.3 % LAB PLT Platelet Count 216 Normal 150-450 10*3/uL LAB MPV Mean Platelet Volume 8.2 Normal 6.3-10.7 fL LAB SEG Segmented Neutrophils 81 High 50-70 % LAB BAND Band Neutrophils 5 Normal 0-5 % LAB LYMPH Lymphocytes 3 Low 18-42 % LAB MON Monocytes 5 Normal 2-11 % LAB EOS Eosinophils 1 Normal 1-3 % LAB META Metamyelocytes 3 High 0-0 % LAB MYELO Myelocytes 3 High 0-0 % LAB ANISO Anisocytosis Slight LAB TOX Toxic Granulation Slight LAB PLT EST Platelet Estimate Normal Normal LAB PLTM Platelet Morphology Normal Normal Result Comment: PERFORMED BY : [place] [address] PATHOLOGIST SALESPERSON HOSIERY XAVIER AGARWAL M.D. Performed By: #### BMP, DIFF CBC #### [facility] [address] GLUCOSE POCT GLUCOMETERS Collected: 02/16/2024 8:51 P M Status: F Source: [facility] REPOSITORY TYPE CODE TESTS RESULT OUT OF RANGE REFERENCE UNITS LAB GLUPOC Glucose Poc Glucometers 212 mg/dL Result Comment: Random Gluco se Reference Range is dependent on time and content of last meal. Glucose of more than 200 mg/dL in a nonstressed, ambulatory subject supports the diagnosis of Diabetes Mellitus. PERFORMED BY: [address] [place] [address] PATHOLOGIST SALESPERSON HOSIERY XAVIER AGARWAL M.D. Performed By: #### GLULS ### # Point of Care testing , GLUCOSE POCT GLUCOMETERS Collected: 02/16/2024 4:13 P M Status: F Source: [facility] REPOSITORY TYPE CODE TESTS RESULT OUT OF RANGE REFERENCE UNITS LAB GLUPOC Glucose Poc Glucometers 210 mg/dL Result Comment: Random Gluco se Reference Range is dependent on time and content of last meal. Glucose of more than 200 mg/dL in a nonstressed, ambulatory subject supports the diagnosis of Diabetes Mellitus. PERFORMED BY: [address] [address] PATHOLOGIST SALESPERSON HOSIERY XAVIER AGARWAL M.D. Performed By: #### GLULS ### # Point of Care testing , GLUCOSE POCT GLUCOMETERS Collected: 02/16/2024 11:10 AM Status: F Source: [facility] REPOSITORY TYPE CODE TESTS RESULT OUT OF RANGE REFERENCE UNITS LAB GLUPOC Glucose Poc Glucometers 225 mg/dL Result Comment: Random Gluco se Reference Range is dependent on time and content of last meal. Glucose of more than 200 mg/dL in a nonstressed, ambulatory subject supports the diagnosis of Diabetes Mellitus. PERFORMED BY: [address] [place] [address] PATHOLOGIST SALESPERSON HOSIERY XAVIER AGARWAL M.D. Performed By: #### GLULS ### # Point of Care testing , GLUCOSE POCT GLUCOMETERS Collected: 02/16/2024 6:46 A M Status: F Source: [facility] REPOSITORY TYPE CODE TESTS RESULT OUT OF RANGE REFERENCE UNITS LAB GLUPOC Glucose Poc Glucometers 218 mg/dL Result Comment: Random Gluco se Reference Range is dependent on time and content of last meal. Glucose of more than 200 mg/dL in a nonstressed, ambulatory subject supports the diagnosis of Diabetes Mellitus. PERFORMED BY: [address] [place] [address] PATHOLOGIST SALESPERSON HOSIERY XAVIER AGARWAL M.D. Performed By: #### GLULS ### # Point of Care testing , BASIC METABOLIC PANEL Collected: 2023 5:57 AM Status: F Source: [facility] REPOSITORY TYPE CODE TESTS RESULT OUT OF RANGE REFERENCE UNITS LAB GLU Glucose 198 High 70-100 mg/dL Result Comment: Random Gluco se Reference Range is dependent on time and content of last meal. Glucose of more than 200 mg/dL in a nonstressed, ambulatory subject supports the diagnosis of Diabetes Mellitus. ADA recommended reference range LAB BUN Blood Urea Nitrogen 85 High 7-25 mg/dL LAB CREATT Creatinine 3.14 High 0.60-1.20 mg/dL LAB GFReNR Estimated GFR 15.449 LAB NA Sodium 125 Low 136-145 mmol/L LAB K Potassium 4.1 Normal 3.5-5.1 mmol/L LAB CL Chloride 90 Low 98-107 mmol/L LAB CO2 Carbon Dioxide 23.2 Normal 21.0-31.0 mmol/L LAB GAP Anion Gap 15.9 High 6.0-15.0 LAB CA Calcium 8.2 Low 8.6-10.3 mg/dL LAB CRCLPHA Creatinine Clr Calc Pharmacy 24.49 Result Comment: PERFORMED BY : [place] [address] PATHOLOGIST SALESPERSON HOSIERY XAVIER AGARWAL M.D. Performed By: #### SCAN CBC, [facility] #### [address] SCAN AND CBC Collected: 02/16/2024 5:57 AM Status: F Source: [facility] REPOSITORY TYPE CODE TESTS RESULT OUT OF RANGE REFERENCE UNITS LAB WBC White Blood Count 19.7 High 3.8-11.6 10*3/uL LAB UNWBC Uncorrected WBC 20.9 High 3.8-11.6 10*3/uL LAB RBC Red Blood Count 3.55 Low 3.60-5.00 LAB HGB Hemoglobin 11.0 Low 11.8-15.4 g/dL LAB HCT Hematocrit 33.0 Low 34.0-46.4 % LAB MCV Mean Corpuscular Volume 93.0 Normal 80-100 fL LAB MCH Mean Corpuscular Hemoglobin 31.1 Normal 24.7-34.3 pg LAB MCHC Mean Corpuscular HGB Conc 33.4 Normal 32.0-35.0 g/dL LAB RDW Red Cell Distribution Width 14.1 Normal 11.9-15.3 % LAB PLT Platelet Count 202 Normal 150-450 10*3/uL LAB MPV Mean Platelet Volume 8.4 Normal 6.3-10.7 fL LAB NE% Neutrophils % (Auto) 93.7 . % LAB LY% Lymphocytes % (Auto) 3.4 . % LAB MO% Monocytes % (Auto) 1.6 . % LAB EO% Eosinophils % (Auto) 1.0 . % LAB BA% Basophils % (Auto) 0.3 . % LAB NRBC% NRBC% 0.1 Normal 0-0.5 /100{WBC } LAB NE# Neutrophils # (Auto) 18.5 High 1.8-7.7 10*3/uL LAB LY# Lymphocytes # (Auto) 0.7 Low 1.00-4.8 10*3/uL LAB MO# Monocytes # (Auto) 0.3 Normal 0.0-0.8 10*3/uL LAB EO# Eosinophils # (Auto) 0.2 Normal 0.0-0.45 10*3/uL LAB BA# Basophils # (Auto) 0.1 Normal 0.0-0.2 10*3/uL Result Comment: PERFORMED BY : [place] [address] PATHOLOGIST SALESPERSON HOSIERY XAVIER AGARWAL M.D. LAB RM RBC Morphology Normal Normal LAB PLT EST Platelet Estimate Normal Normal LAB PLTM Platelet Morphology Normal Normal Result Comment: NO CLOTS OR CLUMPS PERFORMED BY: [place] [address] PATHOLOGIST SALESPERSON HOSIERY XAVIER AGARWAL M.D. Performed By: #### SCAN CBC, BMP #### [facility] [address] [place] [address] GLUCOSE POCT GLUCOMETERS Collected: 02/15/2024 8:28 P M Status: F Source: [facility] REPOSITORY TYPE CODE TESTS RESULT OUT OF RANGE REFERENCE UNITS LAB GLUPOC Glucose Poc Glucometers 289 mg/dL Result Comment: Random Gluco se Reference Range is dependent on time and content of last meal. Glucose of more than 200 mg/dL in a nonstressed, ambulatory subject supports the diagnosis of Diabetes Mellitus. PERFORMED BY: [address] [place] [address] PATHOLOGIST SALESPERSON HOSIERY XAVIER AGARWAL M.D. Performed By: #### GLULS ### # Point of Care testing , DIPSTICK AND MICROSCOPIC Collected: 6:20 PM Status: F Source: [facility] REPOSITORY Order Comment: Name Collecti on Type:: Voided TYPE CODE TESTS RESULT OUT OF RANGE REFERENCE UNITS LAB UCOL Color,Urine Dark Yellow Abnormal Alert Yellow LAB UAPP Appearance,Uri ne Cloudy Abnormal Alert Clear LAB USG Specificy [place],Urine 1.016 Normal 1.001-1.030 LAB UPH pH,Urine 5.0 Normal 5.0-9.0 LAB ULE Leukocyte Esterase,Urine 2+ High Negative LAB UNIT Nitrite,Urine Negative Negative LAB UPRO Protein,Urine Negative Negative LAB UGL Glucose,Urine (UA) Normal Normal LAB UKET Ketones,Urine Trace High Negative LAB UURO Urobilinogen,U rine Normal Normal LAB UBIL Bilirubin,Urin e 1+ High Negative LAB UBLD Occult Blood,Urine Negative Negative Result Comment: PERFORMED BY : [place] [address] PATHOLOGIST SALESPERSON HOSIERY XAVIER AGARWAL M.D. LAB URBC RBC,Urine 3-4 0-4 LAB UWBC WBC,Urine 1-2 0-4 LAB USQEPI Squamous Epithelial Cell,Urine 5-9 High 0-2 LAB UBACT Bacteria,Urine 1+ High None Seen LAB UHYALC Hyaline Casts,Urine 0-8 0-8 Result Comment: PERFORMED BY : [place] [address] PATHOLOGIST SALESPERSON HOSIERY XAVIER AGARWAL M.D. Performed By: #### UCREA, UN A, ADDONUAPLUS #### [address] CREATININE, URINE (RANDOM) Collected: 0 02/15/2024 6:20 PM Status: F Source: [facility] REPOSITORY TYPE CODE TESTS RESULT OUT OF RANGE REFERENCE UNITS LAB UCREA Creatinine, Urine (Random) 120.0 mg/dL Result Comment: No reference range established Performed By: #### UCREA, UN A, ADDONUAPLUS #### [facility] [address] [place] [id number] [place] SODIUM, URINE (RANDOM) Collected: 02/14 6:20 PM Status: F Source: [facility] REPOSITORY TYPE CODE TESTS RESULT OUT OF RANGE REFERENCE UNITS LAB RAFIQ Sodium, Urine (Random) 19 mmol/L Result Comment: No reference range established PERFORMED BY: [place] [address] PATHOLOGIST SALESPERSON HOSIERY XAVIER AGARWAL M.D. Performed By: #### UCREA UN A, ADDONUAPLUS #### [facility] [address] [place] [address] ECG 12 LEAD ECG Observed: 02/15/2024 5:04 PM Status: COMPLETED Source: [facility] REPOSITORY [facility] [place] Main [place] [address] [place] [address] Electrocardiograph Report Signed Patient: Namrata Jack MR#: [id number] 6 : 1955 Acct:[id number] Age/Sex: 68 / F ADM Date: 02/13/24 Loc: Room: [address] [place] [address] Type: ADM IN Attending Dr: Vincenzo Ragsdale DO Ordering Provider: Vincenzo Ragsdale DO Date of Service: 02/15/24 ECG/ECG 12 lead ECG: RHYTHM CHECK Copies to: Test Reason : Blood Pressure : / mmHG Vent. Rate : 065 BPM Atrial Rate : 065 BPM P-R Int : 192 ms QRS Dur : 088 ms QT Int : 468 ms P-R-T Axes : 051 009 030 degrees QTc Int : 486 ms Normal sinus rhythm Low voltage QRS Borderline ECG When compared with ECG of 14-FEB-2024 07:42, Minimal criteria for Anterior infarct are no longer present Confirmed by Carlos Rizzo ([id number]) on 02/16/2024 9:33:47 AM Referred By: Electronically Signed By:Carlos Rizzo Transcribed By: MUS Signed By Carlos Rizzo MD 02/16/24 0933 GLUCOSE POCT GLUCOMETERS Collected: 02/15/2024 4:16 P M Status: F Source: [facility] REPOSITORY TYPE CODE TESTS RESULT OUT OF RANGE REFERENCE UNITS LAB GLUPOC Glucose Poc Glucometers 188 mg/dL Result Comment: Random Gluco se Reference Range is dependent on time and content of last meal. Glucose of more than 200 mg/dL in a nonstressed, ambulatory subject supports the diagnosis of Diabetes Mellitus. PERFORMED BY: [facility] [address] [place] [address] PATHOLOGIST SALESPERSON HOSIERY XAVIER AGARWAL M.D. Performed By: #### GLULS ### # Point of Care testing , GLUCOSE POCT GLUCOMETERS Collected: 02/15/2024 11:39 AM Status: F Source: [facility] REPOSITORY TYPE CODE TESTS RESULT OUT OF RANGE REFERENCE UNITS LAB GLUPOC Glucose Poc Glucometers 177 mg/dL Result Comment: Random Gluco se Reference Range is dependent on time and content of last meal. Glucose of more than 200 mg/dL in a nonstressed, ambulatory subject supports the diagnosis of Diabetes Mellitus. PERFORMED BY: [facility] [address] [place] [address] PATHOLOGIST SALESPERSON HOSIERY XAVIER AGARWAL M.D. Performed By: #### GLULS ### # Point of Care testing , BASIC METABOLIC PANEL Collected: 2023 6:53 AM Status: F Source: [facility] REPOSITORY TYPE CODE TESTS RESULT OUT OF RANGE REFERENCE UNITS LAB GLU Glucose 153 High 70-100 mg/dL Result Comment: Random Gluc ose Reference Range is dependent on time and content of last meal. Glucose of more than 200 mg/dL in a nonstressed, ambulatory subject supports the diagnosis of Diabetes Mellitus. ADA recommended reference range LAB BUN Blood Urea Nitrogen 72 High 7-25 mg/dL LAB CREATT Creatinine 3.37 High 0.60-1.20 mg/dL LAB GFReNR Estimated GFR 14.192 LAB NA Sodium 126 Low 136-145 mmol/L LAB K Potassium 3.9 Normal 3.5-5.1 mmol/L LAB CL Chloride 89 Low 98-107 mmol/L LAB CO2 Carbon Dioxide 26.4 Normal 21.0-31.0 mmol/L LAB GAP Anion Gap 14.5 Normal 6.0-15.0 LAB CA Calcium 8.4 Low 8.6-10.3 mg/dL LAB CRCLPHA Creatinine Clr Calc Pharmacy 22.82 Result Comment: PERFORMED BY : [address] [place] [address] PATHOLOGIST SALESPERSON HOSIERY XAVIER AGARWAL M.D. Performed By: #### BMP, DIFF CBC, LIPASE #### [facility] [address] [place] [address] [facility] DIFF AND CBC Collected: 02/15/2024 6:53 AM Status: F Source: [facility] REPOSITORY TYPE CODE TESTS RESULT OUT OF RANGE REFERENCE UNITS LAB WBC White Blood Count 16.9 High 3.8-11.6 10*3/uL LAB UNWBC Uncorrected WBC 16.9 High 3.8-11.6 10*3/uL LAB RBC Red Blood Count 3.51 Low 3.60-5.00 LAB HGB Hemoglobin 11.0 Low 11.8-15.4 g/dL LAB HCT Hematocrit 32.6 Low 34.0-46.4 % LAB MCV Mean Corpuscular Volume 92.9 Normal 80-100 fL LAB MCH Mean Corpuscular Hemoglobin 31.4 Normal 24.7-34.3 pg LAB MCHC Mean Corpuscular HGB Conc 33.8 Normal 32.0-35.0 g/dL LAB RDW Red Cell Distribution Width 14.1 Normal 11.9-15.3 % LAB PLT Platelet Count 225 Normal 150-450 10*3/uL LAB MPV Mean Platelet Volume 8.0 Normal 6.3-10.7 fL LAB SEG Segmented Neutrophils 74 High 50-70 % LAB BAND Band Neutrophils 21 High 0-5 % LAB LYMPH Lymphocytes 2 Low 18-42 % LAB MON Monocytes 1 Low 2-11 % LAB EOS Eosinophils 2 Normal 1-3 % LAB CREN Crenated RBC Slight LAB PLT EST Platelet Estimate Normal Normal LAB GPLT Giant Platelet Tally 1 /100{WBC } LAB PLTM Platelet Morphology Normal Normal Result Comment: PERFORMED BY : [facility] [address] [place] [address] PATHOLOGIST SALESPERSON HOSIERY XAVIER AGARWAL M.D. Performed By: #### BMP, DIFF CBC, LIPASE #### [facility] [address] [place] [address] [place] LIPASE Collected: 6:53 AM Status: F Source: [facility] REPOSITORY TYPE CODE TESTS RESULT OUT OF RANGE REFERENCE UNITS LAB LIPASE Lipase < 3.0 Low 11.0-82.0 Result Comment: PERFORMED BY : [place] [address] PATHOLOGIST SALESPERSON HOSIERY XAVIER AGARWAL M.D. Performed By: #### BMP, DIFF CBC, LIPASE #### [address] GLUCOSE POCT GLUCOMETERS Collected: 02/15/2024 6:31 A M Status: F Source: [facility] REPOSITORY TYPE CODE TESTS RESULT OUT OF RANGE REFERENCE UNITS LAB GLUPOC Glucose Poc Glucometers 161 mg/dL Result Comment: Random Gluco se Reference Range is dependent on time and content of last meal. Glucose of more than 200 mg/dL in a nonstressed, ambulatory subject supports the diagnosis of Diabetes Mellitus. PERFORMED BY: [place] [address] PATHOLOGIST SALESPERSON HOSIERY XAVIER AGARWAL M.D. Performed By: #### GLULS ### # Point of Care testing , GLUCOSE POCT GLUCOMETERS Collected: 02/14/2024 8:39 P M Status: F Source: [facility] REPOSITORY TYPE CODE TESTS RESULT OUT OF RANGE REFERENCE UNITS LAB GLUPOC Glucose Poc Glucometers 202 mg/dL Result Comment: Random Gluco se Reference Range is dependent on time and content of last meal. Glucose of more than 200 mg/dL in a nonstressed, ambulatory subject supports the diagnosis of Diabetes Mellitus. PERFORMED BY: [place] [address] PATHOLOGIST SALESPERSON HOSIERY XAVIER AGARWAL M.D. Performed By: #### GLULS ### # Point of Care testing , URINE CULTURE Observed: 02/14/2024 5:55 PM Status: F Source: [facility] REPOSITORY <9,000 colonies/ml mixed bacterial skin contaminants 2 Days PERFORMED BY: [place] [address] PATHOLOGIST SALESPERSON HOSIERY XAVIER AGARWAL M.D. Performed By: #### CUU #### [facility] [address] [place] [id number] [facility] DIPSTICK AND MICROSCOPIC Collected: 5:55 PM Status: F Source: [facility] REPOSITORY Order Comment: Name Collecti on Type:: Straight Catheter TYPE CODE TESTS RESULT OUT OF RANGE REFERENCE UNITS LAB UCOL Color,Urine Dark Yellow Abnormal Alert Yellow LAB UAPP Appearance,Uri ne Cloudy Abnormal Alert Clear LAB USG Specificy [place],Urine 1.019 Normal 1.001-1.030 LAB UPH pH,Urine 5.0 Normal 5.0-9.0 LAB ULE Leukocyte Esterase,Urine 2+ High Negative LAB UNIT Nitrite,Urine Negative Negative LAB UPRO Protein,Urine Negative Negative LAB UGL Glucose,Urine (UA) Normal Normal LAB UKET Ketones,Urine Negative Negative LAB UURO Urobilinogen,U rine Normal Normal LAB UBIL Bilirubin,Urin e 1+ High Negative LAB UBLD Occult Blood,Urine Negative Negative Result Comment: PERFORMED BY : [place] [address] PATHOLOGIST SALESPERSON HOSIERY XAVIER AGARWAL M.D. LAB URBC RBC,Urine 3-4 0-4 LAB UWBC WBC,Urine 10-19 High 0-4 LAB USQEPI Squamous Epithelial Cell,Urine 5-9 High 0-2 LAB UBACT Bacteria,Urine 3+ High None Seen LAB UHYALC Hyaline Casts,Urine 0-8 0-8 LAB MUCUS Mucus,Urine 2+ Abnormal Alert LAB UYEAST Yeast,Urine None Seen None Seen Result Comment: PERFORMED BY : [place] [id number] PATHOLOGIST SALESPERSON HOSIERY XAVIER AGARWAL M.D. Performed By: #### ADDONUAPL #### [place] [id number] [facility] GLUCOSE POCT GLUCOMETERS Collected: 02/14/2024 4:22 P M Status: F Source: [facility] REPOSITORY TYPE CODE TESTS RESULT OUT OF RANGE REFERENCE UNITS LAB GLUPOC Glucose Poc Glucometers 174 mg/dL Result Comment: Random Gluco se Reference Range is dependent on time and content of last meal. Glucose of more than 200 mg/dL in a nonstressed, ambulatory subject supports the diagnosis of Diabetes Mellitus. PERFORMED BY: [place] [id number] PATHOLOGIST SALESPERSON HOSIERY XAVIER AGARWAL M.D. Performed By: #### GLULS ### # Point of Care testing , BASIC METABOLIC PANEL Collected: 2023 3:00 PM Status: F Source: [facility] REPOSITORY TYPE CODE TESTS RESULT OUT OF RANGE REFERENCE UNITS LAB GLU Glucose 166 High 70-100 mg/dL Result Comment: Random Gluco se Reference Range is dependent on time and content of last meal. Glucose of more than 200 mg/dL in a nonstressed, ambulatory subject supports the diagnosis of Diabetes Mellitus. ADA recommended reference range LAB BUN Blood Urea Nitrogen 60 High 7-25 mg/dL LAB CREATT Creatinine 3.04 High 0.60-1.20 mg/dL LAB GFReNR Estimated GFR 16.061 LAB NA Sodium 127 Low 136-145 mmol/L LAB K Potassium 3.9 Normal 3.5-5.1 mmol/L LAB CL Chloride 90 Low 98-107 mmol/L LAB CO2 Carbon Dioxide 23.2 Normal 21.0-31.0 mmol/L LAB GAP Anion Gap 17.7 High 6.0-15.0 LAB CA Calcium 8.4 Low 8.6-10.3 mg/dL LAB CRCLPHA Creatinine Clr Calc Pharmacy 25.42 Result Comment: PERFORMED BY : [place] [id number] PATHOLOGIST SALESPERSON HOSIERY XAVIER AGARWAL M.D. Performed By: #### BMP, DIFF CBC #### [address] DIFF AND CBC Collected: 02/14/2024 3:00 PM Status: F Source: [facility] REPOSITORY TYPE CODE TESTS RESULT OUT OF RANGE REFERENCE UNITS LAB WBC White Blood Count 15.7 High 3.8-11.6 10*3/ uL LAB UNWBC Uncorrected WBC 15.7 High 3.8-11.6 10*3/uL LAB RBC Red Blood Count 4.11 Normal 3.60-5.00 LAB HGB Hemoglobin 12.6 Normal 11.8-15.4 g/dL LAB HCT Hematocrit 38.6 Normal 34.0-46.4 % LAB MCV Mean Corpuscular Volume 94.0 Normal 80-100 fL LAB MCH Mean Corpuscular Hemoglobin 30.8 Normal 24.7-34.3 pg LAB MCHC Mean Corpuscular HGB Conc 32.8 Normal 32.0-35.0 g/dL LAB RDW Red Cell Distribution Width 14.0 Normal 11.9-15.3 % LAB PLT Platelet Count 240 Normal 150-450 10*3/uL LAB MPV Mean Platelet Volume 7.7 Normal 6.3-10.7 fL LAB SEG Segmented Neutrophils 21 Low 50-70 % LAB BAND Band Neutrophils 65 High 0-5 % LAB LYMPH Lymphocytes 5 Low 18-42 % LAB MON Monocytes 3 Normal 2-11 % LAB EOS Eosinophils 0 Low 1-3 % LAB BASO Basophils 0 Normal 0-2 % LAB META Metamyelocytes 5 High 0-0 % LAB MYELO Myelocytes 1 High 0-0 % LAB RM RBC Morphology Normal Normal LAB PLT EST Platelet Estimate Normal Normal LAB PLTM Platelet Morphology Normal Normal Result Comment: PERFORMED BY : [place] [address] PATHOLOGIST SALESPERSON HOSIERY XAVIER AGARWAL M.D. Performed By: #### BMP, DIFF CBC #### [address] GLUCOSE POCT GLUCOMETERS Collected: 02/14/2024 11:29 AM Status: F Source: [facility] REPOSITORY TYPE CODE TESTS RESULT OUT OF RANGE REFERENCE UNITS LAB GLUPOC Glucose Poc Glucometers 175 mg/dL Result Comment: Random Gluco se Reference Range is dependent on time and content of last meal. Glucose of more than 200 mg/dL in a nonstressed, ambulatory subject supports the diagnosis of Diabetes Mellitus. PERFORMED BY: [place] [address] PATHOLOGIST SALESPERSON HOSIERY XAVIER AGARWAL M.D. Performed By: #### GLULS ### # Point of Care testing , ECG 12 LEAD ECG Observed: 02/14/2024 7:42 AM Status: COMPLETED Source: [facility] REPOSITORY [facility] [place] [place] Main [place] [address] [place] [address] Electrocardiograph Report Signed Patient: Namrata Jack MR#: [id number] 6 : 1955 Acct:[id number] Age/Sex: 68 / F ADM Date: 02/13/24 Loc: Room: [address] [place] [address] Type: ADM IN Attending Dr: Vincenzo Ragsdale DO Ordering Provider: Vincenzo Ragsdale DO Date of Service: 02/14/24 ECG/ECG 12 lead ECG: dyspnea Copies to: Test Reason : Blood Pressure : / mmHG Vent. Rate : 093 BPM Atrial Rate : 093 BPM P-R Int : 184 ms QRS Dur : 080 ms QT Int : 368 ms P-R-T Axes : 069 -11 054 degrees QTc Int : 457 ms Normal sinus rhythm Minimal voltage criteria for LVH, may be normal variant Cannot rule out Anterior infarct (cited on or before 14-FEB-2024) Abnormal ECG When compared with ECG of 13-FEB-2024 01:58, No significant change was found Confirmed by Carlos Rizzo ([id number]) on 02/14/2024 11:23:46 AM Referred By: Electronically Signed By:Carlos Rizzo Transcribed By: MUS Signed By Carlos Rizzo MD 02/14/24 1123 DIFF AND CBC Collected: 02/14/2024 6:45 AM Status: F Source: [facility] REPOSITORY TYPE CODE TESTS RESULT OUT OF RANGE REFERENCE UNITS LAB WBC White Blood Count 13.9 High 3.8-11.6 10*3/ uL LAB UNWBC Uncorrected WBC 13.9 High 3.8-11.6 10*3/uL LAB RBC Red Blood Count 4.28 Normal 3.60-5.00 LAB HGB Hemoglobin 13.1 Normal 11.8-15.4 g/dL LAB HCT Hematocrit 39.6 Normal 34.0-46.4 % LAB MCV Mean Corpuscular Volume 92.6 Normal 80-100 fL LAB MCH Mean Corpuscular Hemoglobin 30.7 Normal 24.7-34.3 pg LAB MCHC Mean Corpuscular HGB Conc 33.1 Normal 32.0-35.0 g/dL LAB RDW Red Cell Distribution Width 14.2 Normal 11.9-15.3 % LAB PLT Platelet Count 300 Normal 150-450 10*3/uL LAB MPV Mean Platelet Volume 7.7 Normal 6.3-10.7 fL Result Comment: PERFORMED BY : [place] [address] PATHOLOGIST SALESPERSON HOSIERY XAVIER AGARWAL M.D. LAB SEG Segmented Neutrophils 16 Low 50-70 % LAB BAND Band Neutrophils 75 High 0-5 % LAB LYMPH Lymphocytes 2 Low 18-42 % LAB MON Monocytes 1 Low 2-11 % LAB META Metamyelocytes 7 High 0-0 % LAB RM RBC Morphology Normal Normal LAB PLT EST Platelet Estimate Normal Normal LAB PLTM Platelet Morphology Normal Normal Result Comment: PERFORMED BY : [place] [address] PATHOLOGIST SALESPERSON HOSIERY XAVIER AGARWAL M.D. Performed By: #### DIFF CBC #### [place] [id number] [facility] BASIC METABOLIC PANEL Collected: 2023 6:45 AM Status: F Source: [facility] REPOSITORY TYPE CODE TESTS RESULT OUT OF RANGE REFERENCE UNITS LAB GLU Glucose 151 High 70-100 mg/dL Result Comment: Random Gluco se Reference Range is dependent on time and content of last meal. Glucose of more than 200 mg/dL in a nonstressed, ambulatory subject supports the diagnosis of Diabetes Mellitus. ADA recommended reference range LAB BUN Blood Urea Nitrogen 55 High 7-25 mg/dL LAB CREATT Creatinine 2.84 Increased 0.60-1.20 mg/dL LAB GFReNR Estimated GFR 17.428 LAB NA Sodium 131 Low 136-145 mmol/L LAB K Potassium 3.8 Normal 3.5-5.1 mmol/L LAB CL Chloride 88 Low 98-107 mmol/L LAB CO2 Carbon Dioxide 28.1 Normal 21.0-31.0 mmol/L LAB GAP Anion Gap 18.7 High 6.0-15.0 LAB CA Calcium 8.5 Low 8.6-10.3 mg/dL LAB CRCLPHA Creatinine Clr Calc Pharmacy 27.21 Performed By: #### BMP, A1C WTH eA, MG #### [place] [id number] [facility] MAGNESIUM Collected: 6:45 AM Status: F Source: [facility] REPOSITORY TYPE CODE TESTS RESULT OUT OF RANGE REFERENCE UNITS LAB MG Magnesium 1.4 Low 1.9-2.7 mg/dL Result Comment: PERFORMED BY : [address] [place] [address] PATHOLOGIST SALESPERSON HOSIERY XAVIER AGARWAL M.D. Performed By: #### BMP, A1C WTH eA, MG #### [place] [id number] [facility] A1C WITH ESTIMATED AVERAGE GLU Collected: 02/14/2024 6:45 AM Status: F Source: F [facility] REPOSITORY TYPE CODE TESTS RESULT OUT OF RANGE REFERENCE UNITS LAB .A1C Hemoglobin A1C 7.4 High 4.3-5.6 % Result Comment: Increased r isk for diabetes: 5.7 - 6.4 diabetes: >6.4 glycemic control for adults with diabetes: <7.0 LAB eAG Estimated Average Glucose 166 mg/dL Result Comment: PERFORMED BY : [place] [address] PATHOLOGIST SALESPERSON HOSIERY XAVIER AGARWAL M.D. Performed By: #### JEANNIE, A1C [facility] eA, MG #### [place] [id number] [facility] GLUCOSE POCT GLUCOMETERS Collected: 02/14/2024 6:28 A M Status: F Source: [facility] REPOSITORY TYPE CODE TESTS RESULT OUT OF RANGE REFERENCE UNITS LAB GLUPOC Glucose Poc Glucometers 142 mg/dL Result Comment: Random Gluco se Reference Range is dependent on time and content of last meal. Glucose of more than 200 mg/dL in a nonstressed, ambulatory subject supports the diagnosis of Diabetes Mellitus. PERFORMED BY: [address] [place] [id number] PATHOLOGIST SALESPERSON HOSIERY XAVIER AGARWAL M.D. Performed By: #### GLULS ### # Point of Care testing , GLUCOSE POCT GLUCOMETERS Collected: 02/13/2024 10:23 PM Status: F Source: [facility] REPOSITORY TYPE CODE TESTS RESULT OUT OF RANGE REFERENCE UNITS LAB GLUPOC Glucose Poc Glucometers 202 mg/dL Result Comment: Random Gluco se Reference Range is dependent on time and content of last meal. Glucose of more than 200 mg/dL in a nonstressed, ambulatory subject supports the diagnosis of Diabetes Mellitus. PERFORMED BY: [place] [address] PATHOLOGIST SALESPERSON HOSIERY XAVIER AGARWAL M.D. Performed By: #### GLULS ### # Point of Care testing , LDH LACTATE DEHYDROGENASE Collected: 02/13/2024 9:56 PM Status: F Source: [facility] REPOSITORY TYPE CODE TESTS RESULT OUT OF RANGE REFERENCE UNITS LAB LDH LDH Lactate Dehydrogenase 247 Normal 140-271 U/L Result Comment: PERFORMED BY : [address] [place] [address] PATHOLOGIST SALESPERSON HOSIERY XAVIER AGARWAL M.D. Performed By: #### LDH, CUBL D, PTT, PT #### [facility] [address] [place] [id number] [facility] PROTHROMBIN TIME INR Collected: 02/13/2024 9:56 PM S tatus: F Source: [facility] REPOSITORY TYPE CODE TESTS RESULT OUT OF RANGE REFERENCE UNITS LAB R PT Prothrombin Time 18.3 High 9.0-12.9 s Result Comment: A hematocri t value greater than 55% may lead to inaccurate results in coagulation testing. Patients having hematocrit values >55% require a special collection tube for coagulation studies. Please contact the laboratory at [phone] for redraw instructions. LAB INR INR 1.6 Result Comment: INR Therapeu tic Range A) Pre- and Peroperative OAT started two weeks before surgery. NOT HIP SURGERY: 1.5 - 2.5 HIP SURGERY: 2 - 3 B) Primary and secondary prevention of venous THROMBOSIS: 2 - 3 C) Active venous thrombosis, pulmonary embolism and prevention of recurrent venous thrombosis: 2 - 3 D) Prevention of arterial thromboembolism including patients with mechanical heart valves: 3 - 4.5 Performed By: #### LDH, CUBL D, PTT, PT #### [facility] [address] [place] [address] [place] PARTIAL THROMBOPLASTIN TIME Collected: 02/13/2024 9:5 6 PM Status: F Source: [facility] REPOSITORY TYPE CODE TESTS RESULT OUT OF RANGE REFERENCE UNITS LAB PTT Partial Thromboplastin Time 29.3 Normal 25.1-36.5 s Result Comment: A hematocrit value greater than 55% may lead to inaccurate results in coagulation testing. Patients having hematocrit values >55% require a special collection tube for coagulation studies. Please contact the laboratory at [phone] for redraw instructions. PERFORMED BY: [address] [place] [address] PATHOLOGIST SALESPERSON HOSIERY XAVIER AGARWAL M.D. Performed By: #### LDH, CUBL D, PTT, PT #### [place] [phone] [facility] BLOOD CULTURE Observed: 02/13/2024 9:56 PM Status: F Source: [facility] REPOSITORY NO GROWTH 5 DAYS PERFORMED BY: [place] [address] PATHOLOGIST SALESPERSON HOSIERY XAVIER AGARWAL M.D. Performed By: #### LDH, CUBL D, PTT, PT #### [address] BLOOD CULTURE Observed: 02/13/2024 9:46 PM Status: F Source: [facility] REPOSITORY NO GROWTH 5 DAYS PERFORMED BY: [place] [address] PATHOLOGIST SALESPERSON HOSIERY XAVIER AGARWAL M.D. Performed By: #### LDH, CUBL D, PTT, PT #### [place] [phone] [facility] REDRAW POTASSIUM Collected: 02/13/2024 7:15 PM Statu s: F Source: [facility] REPOSITORY TYPE CODE TESTS RESULT OUT OF RANGE REFERENCE UNITS LAB REDRAW K Redraw Potassium 3.7 Normal 3.5-5.1 mmol/L Result Comment: Hemolysis is present at a level that could interfere with the result. Performed By: #### REDRAW K, REDRAW AST #### [address] REDRAW AST Collected: 7:15 PM Status: F Source: [facility] REPOSITORY TYPE CODE TESTS RESULT OUT OF RANGE REFERENCE UNITS LAB REDRAW AST Redraw AST 45 High 13-39 U/L Result Comment: PERFORMED BY : [place] [address] PATHOLOGIST SALESPERSON HOSIERY XAVIER AGARWAL M.D. Performed By: #### REDCIARA Landin REDRAW AST #### [place] [phone] [facility] XR CHEST 1V PORTABLE Observed: 7:00 PM Status: COMPLETED Source: [facility] REPOSITORY [facility] [place] [address] XRay Report Signed Patient: Namrata Jack MR#: [id number] 6 : 1955 Acct:[id number] Age/Sex: 68 / F ADM Date: 02/13/24 Loc: ER Room: Type: [facility] ER Attending Dr: Copies to: NIRMALA Garcia Ordering Provider: NIRMALA Garcia Date of Service: 02/13/24 XR/XR chest 1V portable: Weakness SINGLE VIEW CHEST CLINICAL HISTORY: Flulike symptoms weakness vomiting. COMPARISON: Chest 08/31/2023 FINDINGS: Cardiomegaly with vascular congestion grossly similar to the prior study. No new consolidation pneumothorax pleural effusion or free air. XR/XR chest 1V portable IMPRESSION: CHF FINDINGS, GROSSLY SIMILAR TO THE PRIOR STUDY. NO NEW CONSOLIDATION TO SUGGEST PNEUMONIA. Impression dictated by: Chapin Maher Jr., D.OJostin02/13/2024 7:00 PM Dictation Location: [place] [address] Transcribed By: [facility] 02/13/241899 Dictated By: Chapin Maher Jr, DO 02/13/241899 Signed By: <Electronically signed by Chapin Maher Jr, DO in OV> 02/13/241899 COMPLETE BLOOD COUNT AUTO DIFF Collected: 02/13/2024 6:30 PM Status: F Source: F [facility] REPOSITORY TYPE CODE TESTS RESULT OUT OF RANGE REFERENCE UNITS LAB WBC White Blood Count 4.7 Normal 3.8-11.6 10*3/uL LAB UNWBC Uncorrected WBC 4.7 Normal 3.8-11.6 10*3/uL LAB RBC Red Blood Count 4.80 Normal 3.60-5.00 LAB HGB Hemoglobin 15.2 Normal 11.8-15.4 g/dL LAB HCT Hematocrit 44.8 Normal 34.0-46.4 % LAB MCV Mean Corpuscular Volume 93.3 Normal 80-100 fL LAB MCH Mean Corpuscular Hemoglobin 31.6 Normal 24.7-34.3 pg LAB MCHC Mean Corpuscular HGB Conc 33.9 Normal 32.0-35.0 g/dL LAB RDW Red Cell Distribution Width 13.9 Normal 11.9-15.3 % LAB PLT Platelet Count 304 Normal 150-450 10*3/uL LAB MPV Mean Platelet Volume 7.4 Normal 6.3-10.7 fL LAB MDW Monocyte Distribution Width 44.14 High 0.00-20.00 % Result Comment: For adults i n ED, MDW > 20.0 may be associated with a higher risk of sepsis during the first 12 hrs of hospital admission LAB NE% Neutrophils % (Auto) 83.3 . % LAB LY% Lymphocytes % (Auto) 11.6 . % LAB MO% Monocytes % (Auto) 4.8 . % LAB EO% Eosinophils % (Auto) 0.1 . % LAB BA% Basophils % (Auto) 0.2 . % LAB NRBC% NRBC% 0.1 Normal 0-0.5 /100{WBC } LAB NE# Neutrophils # (Auto) 3.9 Normal 1.8-7.7 10*3/uL LAB LY# Lymphocytes # (Auto) 0.5 Low 1.00-4.8 10*3/uL LAB MO# Monocytes # (Auto) 0.2 Normal 0.0-0.8 10*3/uL LAB EO# Eosinophils # (Auto) 0.0 Normal 0.0-0.45 10*3/uL LAB BA# Basophils # (Auto) 0.0 Normal 0.0-0.2 10*3/uL Result Comment: PERFORMED BY : [address] [address] PATHOLOGIST SALESPERSON HOSIERY XAVIER AGARWAL M.D. Performed By: #### CBC, CMP #### [address] B-TYPE NATRIURETIC PEPTIDE Collected: 02/13/2024 6:30 PM Status: F Source: [facility] REPOSITORY TYPE CODE TESTS RESULT OUT OF RANGE REFERENCE UNITS LAB BNP B-Type Natriuretic Peptide 242.0 High 5-100 pg/mL Result Comment: PERFORMED BY : [place] [address] PATHOLOGIST SALESPERSON HOSIERY XAVIER AGARWAL M.D. Performed By: #### BNP #### [place] [phone] [facility] COMPREHENSIVE METABOLIC PANEL Collected: 02/13/2024 6:08 PM Status: F Source: F [facility] REPOSITORY TYPE CODE TESTS RESULT OUT OF RANGE REFERENCE UNITS LAB GLU Glucose 229 Increased 70-100 mg/dL Result Comment: Random Gluco se Reference Range is dependent on time and content of last meal. Glucose of more than 200 mg/dL in a nonstressed, ambulatory subject supports the diagnosis of Diabetes Mellitus. ADA recommended reference range LAB BUN Blood Urea Nitrogen 43 High 7-25 mg/dL LAB CREATT Creatinine 1.81 High 0.60-1.20 mg/dL LAB GFReNR Estimated GFR 29.923 LAB NA Sodium 129 Decreased 136-145 mmol/L LAB K Potassium 3.5-5.1 Result Comment: Specimen hem olyzed, redraw requested LAB CL Chloride 89 Low 98-107 mmol/L LAB CO2 Carbon Dioxide 25.2 Normal 21.0-31.0 mmol/L LAB GAP Anion Gap Test not performed 6.0-15.0 LAB CA Calcium 9.0 Normal 8.6-10.3 mg/dL LAB TP Total Protein 6.8 Normal 6.4-8.9 g/dL LAB ALB Albumin Level 3.5 Normal 3.5-5.7 g/dL LAB GLOB Globulin 3.3 g/dL LAB AGRATIO Albumin/Globulin Ratio 1.1 LAB BILIT Bilirubin,Total 1.1 High 0.3-1.0 mg/dL LAB AST Aspartate Amino Transferase Test not performed 13-39 LAB ALT Alanine Aminotransferase 25 Normal 7-52 U/L LAB ALP Alkaline Phosphatase 52 Normal 34-104 U/L LAB CRCLPHA Creatinine Clr Calc Pharmacy 41.53 Result Comment: PERFORMED BY : [address] [address] PATHOLOGIST SALESPERSON HOSIERY XAVIER AGARWAL M.D. Performed By: #### CBC, CMP #### [facility] [address] ABDOMEN PELVIS WO CON Observed: 02/12 9:30 AM Status: COMPLETED Source: [facility] REPOSITORY [facility] C [facility] [place] Main [place] [address] [place] [address] CT Scan Report Signed Patient: Namrata Jack MR#: [id number] 6 : 1955 Acct:[id number] Age/Sex: 68 / F ADM Date: 02/13/24 Loc: ER Room: Type: [facility] ER Attending Dr: Copies to: Andres Witt DO Ordering Provider: Andres Witt DO Date of Service: 02/13/24 CT/CT abdomen pelvis wo con: evaluate for appendicitis, colitis CT abdomen pelvis wo con 02/13/2024 2:11 AM SIGNS AND SYMPTOMS: Abdominal pain with nausea, vomiting, and diarrhea TECHNIQUE: Multidetector ct axial images of the abdomen and pelvis were obtained without IV contrast. Multiplanar reformats were performed and reviewed to further define anatomy and possible pathology. CT was performed with one or more of the following dose reduction techniques: Automated exposure control, adjustment of the mA and/or kV according to patient size, or use of iterative reconstruction technique. COMPARISON: 08/31/2023 FINDINGS: Lower Chest: Atherosclerotic changes are noted thoracic aorta and coronary arteries. Calcification along the mitral annulus. There is a 3 mm calcified granuloma posteriorly in the right lung base with 2 mm calcified granuloma laterally in the right lung base. There is a 3 mm calcified granuloma at the left lung base. ABDOMEN: Liver: Within normal limits. Bile Ducts: Normal caliber. Gallbladder: Previously removed Pancreas: Within normal limits. Spleen: Calcified granulomas are present in the spleen. Adrenals: Within normal limits. Kidneys: Within normal limits. Pelvis: Reproductive Organs: No pelvic masses. Ureters: Within normal limits. Bladder: Within normal limits. Bowel: Normal caliber. Mesenteric Lymph Nodes: No enlarged mesenteric lymph nodes. Peritoneum: No ascites or free air, no fluid collection. Vessels: Atherosclerotic changes are noted in the abdominal aorta. Retroperitoneum: Within normal limits. Abdominal Wall: Within normal limits. Bones: Postoperative changes are noted in the lower lumbar spine. There is a spinal cord stimulator. Degenerative changes are noted in the thoracolumbar spine. CT/CT abdomen pelvis wo con IMPRESSION: No bowel obstruction or obstructive uropathy. No acute intra-abdominal pathology. Impression dictated by: Boogie Lawler M.D.02/13/2024 9:43 AM Dictation Location: [place] [address] Transcribed By: [facility] 02/13/24942 Dictated By: Boogie Lawler II, MD 02/13/24929 Signed By: <Electronically signed by Boogie Lawler II, MD in OV> 02/13/24942 DIPSTICK AND MICROSCOPIC Collected: 2:40 AM Status: F Source: [facility] REPOSITORY Order Comment: Name Collecti on Type:: Other TYPE CODE TESTS RESULT OUT OF RANGE REFERENCE UNITS LAB UCOL Color,Urine Yellow Yellow LAB UAPP Appearance,Uri ne Clear Clear LAB USG Specificy [place],Urine 1.014 Normal 1.001-1.030 LAB UPH pH,Urine 5.0 Normal 5.0-9.0 LAB ULE Leukocyte Esterase,Urine Negative Negative LAB UNIT Nitrite,Urine Negative Negative LAB UPRO Protein,Urine Trace High Negative LAB UGL Glucose,Urine (UA) Normal Normal LAB UKET Ketones,Urine Negative Negative LAB UURO Urobilinogen,U rine Normal Normal LAB UBIL Bilirubin,Urin e Negative Negative LAB UBLD Occult Blood,Urine Negative Negative Result Comment: PERFORMED BY : [address] [address] PATHOLOGIST SALESPERSON HOSIERY XAVIER AGARWAL M.D. LAB URBC RBC,Urine 0-1 0-4 LAB UWBC WBC,Urine 0-1 0-4 LAB USQEPI Squamous Epithelial Cell,Urine 0-1 0-2 LAB UBACT Bacteria,Urine None Seen None Seen LAB UHYALC Hyaline Casts,Urine None Seen 0-8 Result Comment: PERFORMED BY : [address] [address] PATHOLOGIST SALESPERSON HOSIERY XAVIER AGARWAL M.D. Performed By: #### ADDNIGELUAPL #### [address] [place] [address] [facility] B-TYPE NATRIURETIC PEPTIDE Collected: 02/13/2024 2:02 AM Status: F Source: [facility] REPOSITORY TYPE CODE TESTS RESULT OUT OF RANGE REFERENCE UNITS LAB BNP B-Type Natriuretic Peptide 87.0 Normal 5-100 pg/mL Result Comment: PERFORMED BY : [place] [address] PATHOLOGIST SALESPERSON HOSIERY XAVIER AGARWAL M.D. Performed By: #### LIPASE, C BC, BNP, HEPATIC, BMP #### [place] [phone] [facility] COMPLETE BLOOD COUNT AUTO DIFF Collected: 02/13/2024 2:02 AM Status: F Source: [facility] REPOSITORY TYPE CODE TESTS RESULT OUT OF RANGE REFERENCE UNITS LAB WBC White Blood Count 14.9 High 3.8-11.6 10*3/uL LAB UNWBC Uncorrected WBC 14.9 High 3.8-11.6 10*3/uL LAB RBC Red Blood Count 4.60 Normal 3.60-5.00 LAB HGB Hemoglobin 14.5 Normal 11.8-15.4 g/dL LAB HCT Hematocrit 42.6 Normal 34.0-46.4 % LAB MCV Mean Corpuscular Volume 92.7 Normal 80-100 fL LAB MCH Mean Corpuscular Hemoglobin 31.5 Normal 24.7-34.3 pg LAB MCHC Mean Corpuscular HGB Conc 34.0 Normal 32.0-35.0 g/dL LAB RDW Red Cell Distribution Width 13.9 Normal 11.9-15.3 % LAB PLT Platelet Count 377 Normal 150-450 10*3/uL LAB MPV Mean Platelet Volume 7.7 Normal 6.3-10.7 fL LAB MDW Monocyte Distribution Width 29.27 High 0.00-20.00 % Result Comment: For adults i n ED, MDW > 20.0 may be associated with a higher risk of sepsis during the first 12 hrs of hospital admission The predictive value of MDW for identifying sepsis in patients with hematological abnormalities has not been established LAB NE% Neutrophils % (Auto) 95.2 . % LAB LY% Lymphocytes % (Auto) 2.2 . % LAB MO% Monocytes % (Auto) 2.3 . % LAB EO% Eosinophils % (Auto) 0.2 . % LAB BA% Basophils % (Auto) 0.1 . % LAB NRBC% NRBC% 0.1 Normal 0-0.5 /100{WBC } LAB NE# Neutrophils # (Auto) 14.2 High 1.8-7.7 10*3/uL LAB LY# Lymphocytes # (Auto) 0.3 Low 1.00-4.8 10*3/uL LAB MO# Monocytes # (Auto) 0.3 Normal 0.0-0.8 10*3/uL LAB EO# Eosinophils # (Auto) 0.0 Normal 0.0-0.45 10*3/uL LAB BA# Basophils # (Auto) 0.0 Normal 0.0-0.2 10*3/uL Result Comment: PERFORMED BY : [place] [address] PATHOLOGIST SALESPERSON HOSIERY XAVIER AGARWAL M.D. Performed By: #### LIPASE, C BC, BNP, HEPATIC, BMP #### [address] HEPATIC PANEL Collected: 02/13/2024 2:02 AM Status: F Source: [facility] REPOSITORY TYPE CODE TESTS RESULT OUT OF RANGE REFERENCE UNITS LAB TP Total Protein 7.7 Normal 6.4-8.9 g/dL LAB ALB Albumin Level 4.0 Normal 3.5-5.7 g/dL LAB GLOB Globulin 3.7 g/dL LAB AGRATIO Albumin/Globulin Ratio 1.1 LAB BILIT Bilirubin,Total 0.6 Normal 0.3-1.0 mg/dL LAB BILID Bilirubin,Direct 0.10 Normal 0.03-0.18 mg/dL LAB BILII Bilirubin,Indirect 0.5 mg/dL LAB AST Aspartate Amino Transferase 18 Normal 13-39 U/L LAB ALT Alanine Aminotransferase 12 Normal 7-52 U/L LAB ALP Alkaline Phosphatase 61 Normal 34-104 U/L Performed By: #### LIPASE, C BC, BNP, HEPATIC, BMP #### [address] BASIC METABOLIC PANEL Collected: 2023 2:02 AM Status: F Source: [facility] REPOSITORY TYPE CODE TESTS RESULT OUT OF RANGE REFERENCE UNITS LAB GLU Glucose 128 High 70-100 mg/dL Result Comment: Random Gluco se Reference Range is dependent on time and content of last meal. Glucose of more than 200 mg/dL in a nonstressed, ambulatory subject supports the diagnosis of Diabetes Mellitus. ADA recommended reference range LAB BUN Blood Urea Nitrogen 40 High 7-25 mg/dL LAB CREATT Creatinine 1.57 High 0.60-1.20 mg/dL LAB GFReNR Estimated GFR 35.493 LAB NA Sodium 136 Normal 136-145 mmol/L LAB K Potassium 3.0 Low 3.5-5.1 mmol/L LAB CL Chloride 93 Low 98-107 mmol/L LAB CO2 Carbon Dioxide 27.7 Normal 21.0-31.0 mmol/L LAB GAP Anion Gap 18.3 High 6.0-15.0 LAB CA Calcium 9.8 Normal 8.6-10.3 mg/dL LAB CRCLPHA Creatinine Clr Calc Pharmacy 48.39 Performed By: #### LIPASE, C BC, BNP, HEPATIC, BMP #### [address] LIPASE Collected: 2:02 AM Status: F Source: [facility] REPOSITORY TYPE CODE TESTS RESULT OUT OF RANGE REFERENCE UNITS LAB LIPASE Lipase < 3.0 Low 11.0-82.0 Result Comment: PERFORMED BY : [place] [address] PATHOLOGIST SALESPERSON HOSIERY XAVIER AGARWAL M.D. Performed By: #### LIPASE, C BC, BNP, HEPATIC, BMP #### [address] ECG 12 LEAD ECG Observed: 02/13/2024 1:58 AM Status: COMPLETED Source: [facility] REPOSITORY [facility] [place] [address] Electrocardiograph Report Signed Patient: Namrata Jack MR#: [id number] 6 : 1955 Acct:[id number] Age/Sex: 68 / F ADM Date: 02/13/24 Loc: ER Room: Type: [facility] ER Attending Dr: Ordering Provider: Andres Witt, Date of Service: 02/13/24 ECG/ECG 12 lead ECG: Nausea/Vomiting/Diarrhea Copies to: Test Reason : Blood Pressure : 168/065 mmHG Vent. Rate : 091 BPM Atrial Rate : 091 BPM P-R Int : 174 ms QRS Dur : 078 ms QT Int : 382 ms P-R-T Axes : 016 -01 032 degrees QTc Int : 469 ms Normal sinus rhythm with sinus arrhythmia Confirmed by Andres Witt DO ([id number]) on 02/13/2024 6:56:04 AM Referred By: Electronically Signed By:Andres Witt DO Transcribed By: MUS Signed By Andres Witt DO [id number] COVID-19 / FLU A/B / RSV PCR Observed: 0 02/13/2024 1:09 AM Status: F Source: [facility] REPOSITORY COVID-19 Cepheid Result Negative for SARS-CoV-2 RNA by RT-PCR Flu A Cepheid Result Negative for Flu A RNA by RT-PCR Flu B Cepheid Result Negative for Flu B RNA by RT-PCR RSV Cepheid Result Negative for RSV RNA by RT-PCR COVID19 Blank Space Reference: Negative COVID19 Blank Space Cepheid Disclaimer The Cepheid Xpert Xpress CoV-2/Flu/RSV Plus has Cepheid Disclaimer not been FDA cleared or approved; this test has Cepheid Disclaimer been authorized by FDA under an EUA for use by Cepheid Disclaimer authorized laboratories; this test has been Cepheid Disclaimer authorized only for the simultaneous qualitative Cepheid Disclaimer detection and differentiation of nucleic acids from Cepheid Disclaimer SARS-CoV-2, influenza A, influenza B, and Cepheid Disclaimer respiratory syncytial virus (RSV), and not for any Cepheid Disclaimer other viruses or pathogens; and this test is only Cepheid Disclaimer authorized for the duration of the declaration that Cepheid Disclaimer circumstances exist justifying the authorization of Cepheid Disclaimer emergency use of in vitro diagnostic tests for Cepheid Disclaimer detection and/or diagnosis of COVID-19 under Cepheid Disclaimer Section 564(b)(1) of the Act, 21 U.S.C. 360bbb- Cepheid Disclaimer 3(b)(1), unless the authorization is terminated or Cepheid Disclaimer revoked sooner. PERFORMED BY: [place] [address] PATHOLOGIST SALESPERSON HOSIERY XAVIER AGARWAL M.D. Performed By: #### CEPHEID N EG, COVID19 FLU RSV #### [address] CEPHEID COVID PCR NEGATIVE Collected: 0 02/13/2024 1:09 AM Status: F Source: [facility] REPOSITORY TYPE CODE TESTS RESULT OUT OF RANGE REFERENCE UNITS LAB CEPHEID NEG Cepheid COVID PCR Negative Negative Negative Result Comment: This is a du plicate Cepheid Xpert Xpress CoV-2/Flu/RSV Plus RNA by RT-PCR result to be used for statistical tracking purpose only. PERFORMED BY: [place] [address] PATHOLOGIST SALESPERSON HOSIERY XAVIER AGARWAL M.D. Performed By: #### CEPHEID N EG, COVID19 FLU RSV #### [place] [id number] [facility] XR SHOULDER LT MIN 2V* Observed: 024 8:30 AM Status: COMPLETED Source: [facility] REPOSITORY [facility] [place] [address] XRay Report Signed Patient: Namrata Jack MR#: [id number] 6 : 1955 Acct:[id number] Age/Sex: 67 / F ADM Date: 12/14/23 Loc: ER Room: Type: [facility] ER Attending Dr: Copies to: Aryan Kellogg DO Ordering Provider: Aryan Kellogg DO Date of Service: 12/14/23 XR/XR shoulder LT min 2V*: Fall LEFT SHOULDER - - 3 views CLINICAL HISTORY: Fall onto left side/shoulder now with posterior shoulder pain. COMPARISON: None FINDINGS: Evidence of calcific tendinitis. Moderate degenerative changes of the AC joint. Mild degenerative changes of the glenohumeral joint. No acute bony process is seen. Bones are grossly demineralized. XR/XR shoulder LT min 2V* IMPRESSION: DEGENERATIVE CHANGES OF THE LEFT SHOULDER WITH EVIDENCE OF CALCIFIC TENDINITIS. NO ACUTE BONY PROCESS IS SEEN. Impression dictated by: Chapin Maher Jr., D.OJostin12/14/2023 8:31 AM Dictation Location: [place] [address] Transcribed By: [facility] 12/14/23830 Dictated By: Chapin Maher Jr, DO 12/14/23829 Signed By: <Electronically signed by Chapin Maher Jr, DO in OV> 12/14/23 0831 US VENOUS DUPLEX LE BI Observed: 024 11:14 AM Status: COMPLETED Source: [facility] REPOSITORY [facility] [place] [address] Ultrasound Report Signed Patient: Namrata Jack MR#: [id number] 6 : 1955 Acct:[id number] Age/Sex: 67 / F ADM Date: 12/13/23 Loc: Room: Type: [facility] Attending Dr: Andres Monterroso MD Ordering Provider: Andres Monterroso MD Date of Service: 12/13/23 US/US venous duplex LE BI: . Copies to: Andres Monterroso MD Bilateral lower extremity full functional venous duplex examination Indication for study: Nonhealing right leg wound PROCEDURE: Color-flow duplex scanning is used to interrogate the deep venous system of both lower extremities. There is no evidence for deep vein thrombosis in either leg. Bilaterally the common femoral vein, femoral vein, and popliteal veins show good compressibility, color-flow, and augmentation. In the patient's right lower extremity there is severe saphenofemoral incompetence with greater than 5 seconds of reflux from the common femoral vein emptying into the greater saphenous vein. There is also greater than 5 seconds of reflux in the femoral vein. The lesser saphenous vein junction is not visualized. Right greater saphenous vein is dilated at just under 8 mm below the saphenofemoral junction and remains 5 mm to the mid thigh. Its almost 5 mm at the level of the knee. Lesser saphenous vein is not visualized. Small varicosities at 2 mm are noted. In the patient's left lower extremity there is no reflux in the deep venous valvular system but reflux is noted in the greater saphenous vein and lasting for seconds. Left greater saphenous vein is 6 mm below the saphenofemoral junction and remains almost 4 mm to the level of the knee. Small varicosities are noted at 3 mm in the left lower extremity. There is a thigh pediatric geneticist which is 3 mm in diameter and a calf pediatric geneticist which is 3 mm in diameter. The lesser saphenous vein on the left is normal in size. US/US venous duplex LE BI IMPRESSION: No evidence for deep vein thrombosis in either lower extremity. Severe saphenofemoral incompetence is noted in the right leg with dilation of the right greater saphenous vein. There is reflux isolated to the left greater saphenous vein which may be due to the large thigh pediatric geneticist. Impression dictated by: Harmeet Jalloh M.D.12/13/2023 11:18 AM [facility] Tech: Meri Fawad Transcribed By: FABRICIO 12/13/23 1118 Dictated By: Harmeet Jalloh MD 12/13/23 1114 Signed By: <Electronically signed by MD Harmeet Jalloh in OV> 12/13/23 1118 US ARTERIAL PVR REST LE Observed: 2023 11:10 AM Status: COMPLETED Source: [facility] REPOSITORY [facility] [place] [address] Ultrasound Report Signed Patient: Namrata Jack MR#: [id number] 6 : 1955 Acct:[id number] Age/Sex: 67 / F ADM Date: 12/13/23 Loc: Room: Type: [facility] Attending Dr: Andres Mnoterroso MD Ordering Provider: Andres Monterroso MD Date of Service: 12/13/23 US/US arterial pvr rest LE: I70.213 Copies to: Andres Monterroso MD LOWER EXTREMITY SEGMENTAL ARTERIAL DOPSCAN (PVR) INDICATION: Claudication PROCEDURE: Right arm blood pressure is 183 , left is 179 . Pressures throughout the right leg are cno at the low thigh, 195 at the calf, 194 at the ankle using the posterior tibial artery, and 172 at the ankle using the dorsalis pedis artery with ankle-brachial index of 1.06 0.94 . Pressures throughout the left leg are cno at the low thigh, 189 at the calf and 168 at the ankle using the posterior tibial artery, and 153 at the ankle using the dorsalis pedis artery with ankle-brachial index of 0.92 0.84 . Wave forms by plethysmography are pulsatile US/US arterial pvr rest LE IMPRESSION: Ankle-brachial index is slightly lower on the left than the right. Right-sided plethysmographic waveforms are normal. There is mild blunting on the left. This suggest mild peripheral vascular occlusive disease and left lower extremity at rest. No hemodynamically significant peripheral vascular occlusive disease in the right lower extremity at rest. Impression dictated by: Harmeet Jalloh M.D.12/13/2023 11:14 AM Dictation Location: [place] [address] Tech: Meri Celestin Transcribed By: FABRICIO 12/13/23 1114 Dictated By: Harmeet Jalloh MD 12/13/23 1110 Signed By: <Electronically signed by MD Harmeet Jalloh in OV> 12/13/[address] HEAD/BRAIN WO CON Observed: 3 6:39 AM Status: COMPLETED Source: [facility] REPOSITORY [facility] [place] [place] [address] CT Scan Report Signed Patient: Namrata Jack MR#: [id number] 6 : 1955 Acct:[id number] Age/Sex: 67 / F ADM Date: 09/11/23 Loc: ER Room: Type: [facility] ER Attending Dr: Copies to: Robyn Robin DO Ordering Provider: Robyn Robin DO Date of Service: 09/11/23 CT/CT head/brain wo con: head inj CT BRAIN WITHOUT CONTRAST: CLINICAL HISTORY: Patient fell and hit the back of head. COMPARISON: 04/11/2023 TECHNIQUE: Contiguous axial unenhanced images were obtained through the brain. This CT exam was performed using one or more following dose reduction techniques: Automated exposure control, adjustment of the mA and/or kV according to patient size, or use of iterative reconstruction technique. FINDINGS: There is mild cortical atrophy. The ventricles are within normal limits for size and position. Microvascular changes are again noted. There are no additional areas of abnormal attenuation. There is no hemorrhage, mass effect or extra-axial collections. The calvarium is intact. The imaged paranasal sinuses and mastoid air cells are clear. Carotid siphon and intervertebral artery plaque is seen. CT/CT head/brain wo con IMPRESSION: ATROPHY AND SMALL VESSEL ISCHEMIC CHANGES. NO ACUTE INTRACRANIAL TRAUMA. Impression dictated by: Jessica Hawkins M.D.09/11/2023 6:42 AM Dictation Location: [place] [address] Transcribed By: [facility] 09/11/23641 Dictated By: Jessica Hawkins MD 09/11/23 0639 Signed By: <Electronically signed by MD Jessica Hawkins in OV> 09/11/2342 CT LUMBAR SPINE WO CON Observed: 023 6:34 AM Status: COMPLETED Source: [facility] REPOSITORY [facility] [place] [place] [address] CT Scan Report Signed Patient: Namrata Jack MR#: [id number] 6 : 1955 Acct:[id number] Age/Sex: 67 / F ADM Date: 09/11/23 Loc: ER Room: Type: [facility] ER Attending Dr: Copies to: Robyn Robin DO Ordering Provider: Robyn Robin DO Date of Service: 09/11/23 CT/CT lumbar spine wo con: back pain, fall CT LUMBAR SPINE WITHOUT CONTRAST CLINICAL DATA: Patient fell. Low back pain. COMPARISON: 04/11/2023 Spiral images were obtained through the lumbar spine without contrast. Sagittal and coronal reconstructions were reviewed. This CT exam was performed using one or more following dose reduction techniques: Automated exposure control, adjustment of the mA and/or kV according to patient size, or use of iterative reconstruction technique. Evaluation is limited by this also streak artifact from fusion hardware. Slight S-shaped thoracolumbar scoliotic curvature is present. There are posterior rods and pedicle screws at L4-5. No acute compression fractures are identified. There is disc space narrowing at L3-4 with vacuum phenomenon. There are tiny endplate spurs. There is facet disease. There is continued central and foraminal stenosis at L3-4. Patient has a dorsal stimulator. The sacrum, SI joints, imaged bony pelvis and proximal femora show no obvious acute bony injury. There are no paraspinal soft tissue abnormalities. There is atherosclerotic disease. CT/CT lumbar spine wo con IMPRESSION: SLIGHT LIMITED STUDY, WITHOUT OBVIOUS ACUTE BONY INJURY. SUBTLE SCOLIOSIS, POSTOPERATIVE AND DEGENERATIVE CHANGES SIMILAR TO THE COMPARISON. Impression dictated by: Jessica Hawkins M.D.09/11/2023 6:39 AM Dictation Location: [place] [address] Transcribed By: [facility] 09/11/23638 Dictated By: Jessica Hawkins MD 09/11/23 0634 Signed By: <Electronically signed by MD Jessica Hawkins in OV> 09/11/2339 ECG 12 LEAD ECG Observed: 09/11/2023 5:24 AM Status: COMPLETED Source: [facility] REPOSITORY [facility] [place] [address] Electrocardiograph Report Signed Patient: Namrata Jack MR#: [id number] 6 : 1955 Acct:[id number] Age/Sex: 67 / F ADM Date: 09/11/23 Loc: ER Room: Type: [facility] ER Attending Dr: Ordering Provider: Robyn Robin DO Date of Service: 09/11/23 ECG/ECG 12 lead ECG: Fall Copies to: Test Reason : Blood Pressure : 175/072 mmHG Vent. Rate : 066 BPM Atrial Rate : 066 BPM P-R Int : 182 ms QRS Dur : 086 ms QT Int : 438 ms P-R-T Axes : 041 002 023 degrees QTc Int : 459 ms Normal sinus rhythm Cannot rule out Anterior infarct , age undetermined Abnormal ECG When compared with ECG of 31-AUG-2023 00:25, premature atrial complexes are no longer present Vent. rate has decreased BY 32 BPM QT has shortened Confirmed by GERALD WELCH [facility] ([id number]) on 09/13/2023 12:22:34 PM Referred By: Electronically Signed By:ROBYN ROGEL MD [facility] Transcribed By: MUS Signed By Jermaine Rogel MD 09/13/23 1222 GLUCOSE POCT GLUCOMETERS Collected: 09/06/2023 4:18 P M Status: F Source: [facility] REPOSITORY TYPE CODE TESTS RESULT OUT OF RANGE REFERENCE UNITS LAB GLUPOC Glucose Poc Glucometers 167 mg/dL Result Comment: Random Gluco se Reference Range is dependent on time and content of last meal. Glucose of more than 200 mg/dL in a nonstressed, ambulatory subject supports the diagnosis of Diabetes Mellitus. PERFORMED BY: [address] [address] PATHOLOGIST SALESPERSON HOSIERY XAVIER AGARWAL M.D. Performed By: #### GLULS ### # Point of Care testing , GLUCOSE POCT GLUCOMETERS Collected: 09/06/2023 11:12 AM Status: F Source: [facility] REPOSITORY TYPE CODE TESTS RESULT OUT OF RANGE REFERENCE UNITS LAB GLUPOC Glucose Poc Glucometers 192 mg/dL Result Comment: Random Gluco se Reference Range is dependent on time and content of last meal. Glucose of more than 200 mg/dL in a nonstressed, ambulatory subject supports the diagnosis of Diabetes Mellitus. PERFORMED BY: [facility] [address] [place] [address] PATHOLOGIST SALESPERSON HOSIERY XAVIER AGARWAL M.D. Performed By: #### GLULS ### # Point of Care testing , SCAN AND CBC Collected: 09/06/2023 7:33 AM Status: F Source: [facility] REPOSITORY TYPE CODE TESTS RESULT OUT OF RANGE REFERENCE UNITS LAB WBC White Blood Count 9.2 Normal 3.8-11.6 10*3/ uL LAB UNWBC Uncorrected WBC 9.2 Normal 3.8-11.6 10*3/uL LAB RBC Red Blood Count 3.87 Normal 3.60-5.00 LAB HGB Hemoglobin 11.9 Normal 11.8-15.4 g/dL LAB HCT Hematocrit 35.2 Normal 34.0-46.4 % LAB MCV Mean Corpuscular Volume 91.0 Normal 80-100 fL LAB MCH Mean Corpuscular Hemoglobin 30.7 Normal 24.7-34.3 pg LAB MCHC Mean Corpuscular HGB Conc 33.7 Normal 32.0-35.0 g/dL LAB RDW Red Cell Distribution Width 13.7 Normal 11.9-15.3 % LAB PLT Platelet Count 353 Normal 150-450 10*3/uL LAB MPV Mean Platelet Volume 7.2 Normal 6.3-10.7 fL LAB NE% Neutrophils % (Auto) 70.9 . % LAB LY% Lymphocytes % (Auto) 17.6 . % LAB MO% Monocytes % (Auto) 8.0 . % LAB EO% Eosinophils % (Auto) 2.6 . % LAB BA% Basophils % (Auto) 0.9 . % LAB NRBC% NRBC% 0.1 Normal 0-0.5 /100{WBC } LAB NE# Neutrophils # (Auto) 6.5 Normal 1.8-7.7 10*3/uL LAB LY# Lymphocytes # (Auto) 1.6 Normal 1.00-4.8 10*3/uL LAB MO# Monocytes # (Auto) 0.7 Normal 0.0-0.8 10*3/ uL LAB EO# Eosinophils # (Auto) 0.2 Normal 0.0-0.45 10*3/uL LAB BA# Basophils # (Auto) 0.1 Normal 0.0-0.2 10*3/ uL LAB POIK Poikilocytosis Slight LAB ANISO Anisocytosis Slight LAB MICR Microcytosis Slight LAB PLT EST Platelet Estimate Normal Normal LAB PLTM Platelet Morphology Normal Normal Result Comment: PERFORMED BY : [facility] [address] [place] [address] PATHOLOGIST SALESPERSON HOSIERY XAVIER AGARWAL M.D. Performed By: #### SCAN CBC #### [facility] [address] BASIC METABOLIC PANEL Collected: 2022 7:33 AM Status: F Source: [facility] REPOSITORY TYPE CODE TESTS RESULT OUT OF RANGE REFERENCE UNITS LAB GLU Glucose 201 High 70-100 mg/dL Result Comment: Random Gluco se Reference Range is dependent on time and content of last meal. Glucose of more than 200 mg/dL in a nonstressed, ambulatory subject supports the diagnosis of Diabetes Mellitus. ADA recommended reference range LAB BUN Blood Urea Nitrogen 35 High 7-25 mg/dL LAB CREATT Creatinine 1.29 High 0.60-1.20 mg/dL LAB GFReNR Estimated GFR 45.208 LAB NA Sodium 134 Low 136-145 mmol/L LAB K Potassium 3.6 Normal 3.5-5.1 mmol/L LAB CL Chloride 94 Low 98-107 mmol/L LAB CO2 Carbon Dioxide 33.8 High 21.0-31.0 mmol/L LAB GAP Anion Gap 9.8 Normal 6.0-15.0 LAB CA Calcium 8.9 Normal 8.6-10.3 mg/dL LAB CRCLPHA Creatinine Clr Calc Pharmacy 60.78 Performed By: #### BMP, MG # ### [address] MAGNESIUM Collected: 7:33 AM Status: F Source: [facility] REPOSITORY TYPE CODE TESTS RESULT OUT OF RANGE REFERENCE UNITS LAB MG Magnesium 1.8 Low 1.9-2.7 mg/dL Result Comment: PERFORMED BY : [place] [address] PATHOLOGIST SALESPERSON HOSIERY XAVIER AGARWAL M.D. Performed By: #### BMP, MG # ### [facility] [address] [place], [place] [id number] [facility] GLUCOSE POCT GLUCOMETERS Collected: 09/06/2023 6:28 A M Status: F Source: [facility] REPOSITORY TYPE CODE TESTS RESULT OUT OF RANGE REFERENCE UNITS LAB GLUPOC Glucose Poc Glucometers 228 mg/dL Result Comment: Random Gluco se Reference Range is dependent on time and content of last meal. Glucose of more than 200 mg/dL in a nonstressed, ambulatory subject supports the diagnosis of Diabetes Mellitus. PERFORMED BY: [place] [address] PATHOLOGIST SALESPERSON HOSIERY XAVIER AGARWAL M.D. Performed By: #### GLULS ### # Point of Care testing , GLUCOSE POCT GLUCOMETERS Collected: 09/05/2023 9:05 P M Status: F Source: [facility] REPOSITORY TYPE CODE TESTS RESULT OUT OF RANGE REFERENCE UNITS LAB GLUPOC Glucose Poc Glucometers 147 mg/dL Result Comment: Random Gluco se Reference Range is dependent on time and content of last meal. Glucose of more than 200 mg/dL in a nonstressed, ambulatory subject supports the diagnosis of Diabetes Mellitus. PERFORMED BY: [address] [place] [address] PATHOLOGIST SALESPERSON HOSIERY XAVIER AGARWAL M.D. Performed By: #### GLULS ### # Point of Care testing , GLUCOSE POCT GLUCOMETERS Collected: 09/05/2023 4:20 P M Status: F Source: [facility] REPOSITORY TYPE CODE TESTS RESULT OUT OF RANGE REFERENCE UNITS LAB GLUPOC Glucose Poc Glucometers 158 mg/dL Result Comment: Random Gluco se Reference Range is dependent on time and content of last meal. Glucose of more than 200 mg/dL in a nonstressed, ambulatory subject supports the diagnosis of Diabetes Mellitus. PERFORMED BY: [address] [place] [address] PATHOLOGIST SALESPERSON HOSIERY XAVIER AGARWAL M.D. Performed By: #### GLULS ### # Point of Care testing , GLUCOSE POCT GLUCOMETERS Collected: 09/05/2023 11:13 AM Status: F Source: [facility] REPOSITORY TYPE CODE TESTS RESULT OUT OF RANGE REFERENCE UNITS LAB GLUPOC Glucose Poc Glucometers 170 mg/dL Result Comment: Random Gluco se Reference Range is dependent on time and content of last meal. Glucose of more than 200 mg/dL in a nonstressed, ambulatory subject supports the diagnosis of Diabetes Mellitus. PERFORMED BY: [facility] [address] [place] [address] PATHOLOGIST SALESPERSON HOSIERY XAVIER AGARWAL M.D. Performed By: #### GLULS ### # Point of Care testing , COMPLETE BLOOD COUNT AUTO DIFF Collected: 09/05/2023 6:52 AM Status: F Source: F [facility] REPOSITORY TYPE CODE TESTS RESULT OUT OF RANGE REFERENCE UNITS LAB WBC White Blood Count 10.8 Normal 3.8-11.6 10*3/uL LAB UNWBC Uncorrected WBC 10.8 Normal 3.8-11.6 10*3/uL LAB RBC Red Blood Count 3.33 Low 3.60-5.00 LAB HGB Hemoglobin 10.5 Low 11.8-15.4 g/dL LAB HCT Hematocrit 30.3 Low 34.0-46.4 % LAB MCV Mean Corpuscular Volume 91.0 Normal 80-100 fL LAB MCH Mean Corpuscular Hemoglobin 31.4 Normal 24.7-34.3 pg LAB MCHC Mean Corpuscular HGB Conc 34.5 Normal 32.0-35.0 g/dL LAB RDW Red Cell Distribution Width 13.4 Normal 11.9-15.3 % LAB PLT Platelet Count 303 Normal 150-450 10*3/uL LAB MPV Mean Platelet Volume 7.5 Normal 6.3-10.7 fL LAB NE% Neutrophils % (Auto) 74.3 . % LAB LY% Lymphocytes % (Auto) 13.2 . % LAB MO% Monocytes % (Auto) 9.6 . % LAB EO% Eosinophils % (Auto) 2.6 . % LAB BA% Basophils % (Auto) 0.3 . % LAB NRBC% NRBC% 0.0 Normal 0-0.5 /100{WBC } LAB NE# Neutrophils # (Auto) 8.0 High 1.8-7.7 10*3/uL LAB LY# Lymphocytes # (Auto) 1.4 Normal 1.00-4.8 10*3/uL LAB MO# Monocytes # (Auto) 1.0 High 0.0-0.8 10*3/uL LAB EO# Eosinophils # (Auto) 0.3 Normal 0.0-0.45 10*3/uL LAB BA# Basophils # (Auto) 0.0 Normal 0.0-0.2 10*3/uL Result Comment: PERFORMED BY : [facility] [address] [place] [address] PATHOLOGIST SALESPERSON HOSIERY XAVIER AGARWAL M.D. Performed By: #### CBC #### [facility] [address] [place] [id number] [facility] BASIC METABOLIC PANEL Collected: 2022 6:52 AM Status: F Source: [facility] REPOSITORY TYPE CODE TESTS RESULT OUT OF RANGE REFERENCE UNITS LAB GLU Glucose 103 High 70-100 mg/dL Result Comment: Random Gluco se Reference Range is dependent on time and content of last meal. Glucose of more than 200 mg/dL in a nonstressed, ambulatory subject supports the diagnosis of Diabetes Mellitus. ADA recommended reference range LAB BUN Blood Urea Nitrogen 39 High 7-25 mg/dL LAB CREATT Creatinine 1.47 High 0.60-1.20 mg/dL LAB GFReNR Estimated GFR 38.649 LAB NA Sodium 136 Normal 136-145 mmol/L LAB K Potassium 3.6 Normal 3.5-5.1 mmol/L LAB CL Chloride 93 Low 98-107 mmol/L LAB CO2 Carbon Dioxide 37.2 High 21.0-31.0 mmol/L LAB GAP Anion Gap 9.4 Normal 6.0-15.0 LAB CA Calcium 8.6 Normal 8.6-10.3 mg/dL LAB CRCLPHA Creatinine Clr Calc Pharmacy 53.34 Performed By: #### BMP, MG # ### [address] MAGNESIUM Collected: 6:52 AM Status: F Source: [facility] REPOSITORY TYPE CODE TESTS RESULT OUT OF RANGE REFERENCE UNITS LAB MG Magnesium 1.7 Low 1.9-2.7 mg/dL Result Comment: PERFORMED BY : [place] [address] PATHOLOGIST SALESPERSON HOSIERY XAVIER AGARWAL M.D. Performed By: #### BMP, MG # ### [facility] [address] [place], [place] [id number] [facility] GLUCOSE POCT GLUCOMETERS Collected: 09/05/2023 6:29 A M Status: F Source: [facility] REPOSITORY TYPE CODE TESTS RESULT OUT OF RANGE REFERENCE UNITS LAB GLUPOC Glucose Poc Glucometers 123 mg/dL Result Comment: Random Gluco se Reference Range is dependent on time and content of last meal. Glucose of more than 200 mg/dL in a nonstressed, ambulatory subject supports the diagnosis of Diabetes Mellitus. PERFORMED BY: [place] [address] PATHOLOGIST SALESPERSON HOSIERY XAVIER AGARWAL M.D. Performed By: #### GLULS ### # Point of Care testing , GLUCOSE POCT GLUCOMETERS Collected: 09/05/2023 2:33 A M Status: F Source: [facility] REPOSITORY TYPE CODE TESTS RESULT OUT OF RANGE REFERENCE UNITS LAB GLUPOC Glucose Poc Glucometers 67 mg/dL Result Comment: Random Gluco se Reference Range is dependent on time and content of last meal. Glucose of more than 200 mg/dL in a nonstressed, ambulatory subject supports the diagnosis of Diabetes Mellitus. PERFORMED BY: [facility] [address] [place] [address] PATHOLOGIST SALESPERSON HOSIERY XAVIER AGARWAL M.D. Performed By: #### GLULS ### # Point of Care testing , GLUCOSE POCT GLUCOMETERS Collected: 09/04/2023 6:45 A M Status: F Source: [facility] REPOSITORY TYPE CODE TESTS RESULT OUT OF RANGE REFERENCE UNITS LAB GLUPOC Glucose Poc Glucometers 122 mg/dL Result Comment: Random Gluco se Reference Range is dependent on time and content of last meal. Glucose of more than 200 mg/dL in a nonstressed, ambulatory subject supports the diagnosis of Diabetes Mellitus. LAB COMM1 Commemt1 Glu2: Cleaned Meter Result Comment: PERFORMED BY : [facility] [address] [place] [address] PATHOLOGIST SALESPERSON HOSIERY XAVIER AGARWAL M.D. Performed By: #### GLULS ### # Point of Care testing , BASIC METABOLIC PANEL Collected: 2022 6:10 AM Status: F Source: [facility] REPOSITORY TYPE CODE TESTS RESULT OUT OF RANGE REFERENCE UNITS LAB GLU Glucose 118 High 70-100 mg/dL Result Comment: Random Gluco se Reference Range is dependent on time and content of last meal. Glucose of more than 200 mg/dL in a nonstressed, ambulatory subject supports the diagnosis of Diabetes Mellitus. ADA recommended reference range LAB BUN Blood Urea Nitrogen 32 High 7-25 mg/dL LAB CREATT Creatinine 1.11 Normal 0.60-1.20 mg/dL LAB GFReNR Estimated GFR 54.142 LAB NA Sodium 136 Normal 136-145 mmol/L LAB K Potassium 3.2 Low 3.5-5.1 mmol/L LAB CL Chloride 93 Low 98-107 mmol/L LAB CO2 Carbon Dioxide 34.1 High 21.0-31.0 mmol/L LAB GAP Anion Gap 12.1 Normal 6.0-15.0 LAB CA Calcium 9.1 Normal 8.6-10.3 mg/dL LAB CRCLPHA Creatinine Clr Calc Pharmacy 70.60 Result Comment: PERFORMED BY : [place] [address] PATHOLOGIST SALESPERSON HOSIERY XAVIER AGARWAL M.D. Performed By: #### BMP #### [facility] [address] COMPLETE BLOOD COUNT AUTO DIFF Collected: 09/04/2023 6:10 AM Status: F Source: F [facility] REPOSITORY TYPE CODE TESTS RESULT OUT OF RANGE REFERENCE UNITS LAB WBC White Blood Count 10.8 Normal 3.8-11.6 10*3/uL LAB UNWBC Uncorrected WBC 10.8 Normal 3.8-11.6 10*3/uL LAB RBC Red Blood Count 3.87 Normal 3.60-5.00 LAB HGB Hemoglobin 11.9 Normal 11.8-15.4 g/dL LAB HCT Hematocrit 35.0 Normal 34.0-46.4 % LAB MCV Mean Corpuscular Volume 90.4 Normal 80-100 fL LAB MCH Mean Corpuscular Hemoglobin 30.8 Normal 24.7-34.3 pg LAB MCHC Mean Corpuscular HGB Conc 34.1 Normal 32.0-35.0 g/dL LAB RDW Red Cell Distribution Width 13.6 Normal 11.9-15.3 % LAB PLT Platelet Count 310 Normal 150-450 10*3/uL LAB MPV Mean Platelet Volume 7.3 Normal 6.3-10.7 fL LAB NE% Neutrophils % (Auto) 85.4 . % LAB LY% Lymphocytes % (Auto) 7.5 . % LAB MO% Monocytes % (Auto) 6.3 . % LAB EO% Eosinophils % (Auto) 0.5 . % LAB BA% Basophils % (Auto) 0.3 . % LAB NRBC% NRBC% 0.0 Normal 0-0.5 /100{WBC } LAB NE# Neutrophils # (Auto) 9.2 High 1.8-7.7 10*3/uL LAB LY# Lymphocytes # (Auto) 0.8 Low 1.00-4.8 10*3/uL LAB MO# Monocytes # (Auto) 0.7 Normal 0.0-0.8 10*3/uL LAB EO# Eosinophils # (Auto) 0.1 Normal 0.0-0.45 10*3/uL LAB BA# Basophils # (Auto) 0.0 Normal 0.0-0.2 10*3/uL Result Comment: PERFORMED BY : [place] [address] PATHOLOGIST SALESPERSON HOSIERY XAVIER AGARWAL M.D. Performed By: #### CBC #### [address] GLUCOSE POCT GLUCOMETERS Collected: 09/03/2023 8:30 P M Status: F Source: [facility] REPOSITORY TYPE CODE TESTS RESULT OUT OF RANGE REFERENCE UNITS LAB GLUPOC Glucose Poc Glucometers 189 mg/dL Result Comment: Random Gluco se Reference Range is dependent on time and content of last meal. Glucose of more than 200 mg/dL in a nonstressed, ambulatory subject supports the diagnosis of Diabetes Mellitus. LAB COMM1 Commemt1 Glu2: Cleaned Meter Result Comment: PERFORMED BY : [place] [address] PATHOLOGIST SALESPERSON HOSIERY XAVIER AGARWAL M.D. Performed By: #### GLULS ### # Point of Care testing , GLUCOSE POCT GLUCOMETERS Collected: 09/03/2023 6:12 A M Status: F Source: [facility] REPOSITORY TYPE CODE TESTS RESULT OUT OF RANGE REFERENCE UNITS LAB GLUPOC Glucose Poc Glucometers 169 mg/dL Result Comment: Random Gluco se Reference Range is dependent on time and content of last meal. Glucose of more than 200 mg/dL in a nonstressed, ambulatory subject supports the diagnosis of Diabetes Mellitus. PERFORMED BY: [place] [address] PATHOLOGIST SALESPERSON HOSIERY XAVIER AGARWAL M.D. Performed By: #### GLULS ### # Point of Care testing , BASIC METABOLIC PANEL Collected: 2022 5:54 AM Status: F Source: [facility] REPOSITORY TYPE CODE TESTS RESULT OUT OF RANGE REFERENCE UNITS LAB GLU Glucose 138 High 70-100 mg/dL Result Comment: Random Gluco se Reference Range is dependent on time and content of last meal. Glucose of more than 200 mg/dL in a nonstressed, ambulatory subject supports the diagnosis of Diabetes Mellitus. ADA recommended reference range LAB BUN Blood Urea Nitrogen 39 High 7-25 mg/dL LAB CREATT Creatinine 1.48 High 0.60-1.20 mg/dL LAB GFReNR Estimated GFR 38.336 LAB NA Sodium 133 Low 136-145 mmol/L LAB K Potassium 3.4 Low 3.5-5.1 mmol/L LAB CL Chloride 92 Low 98-107 mmol/L LAB CO2 Carbon Dioxide 32.6 High 21.0-31.0 mmol/L LAB GAP Anion Gap 11.8 Normal 6.0-15.0 LAB CA Calcium 8.5 Low 8.6-10.3 mg/dL LAB CRCLPHA Creatinine Clr Calc Pharmacy 52.93 Result Comment: PERFORMED BY : [place] [address] PATHOLOGIST SALESPERSON HOSIERY XAVIER AGARWAL M.D. Performed By: #### BMP #### [address] COMPLETE BLOOD COUNT AUTO DIFF Collected: 09/03/2023 5:54 AM Status: F Source: F [facility] REPOSITORY TYPE CODE TESTS RESULT OUT OF RANGE REFERENCE UNITS LAB WBC White Blood Count 10.4 Normal 3.8-11.6 10*3/uL LAB UNWBC Uncorrected WBC 10.4 Normal 3.8-11.6 10*3/uL LAB RBC Red Blood Count 3.66 Normal 3.60-5.00 LAB HGB Hemoglobin 11.2 Low 11.8-15.4 g/dL LAB HCT Hematocrit 33.2 Low 34.0-46.4 % LAB MCV Mean Corpuscular Volume 90.6 Normal 80-100 fL LAB MCH Mean Corpuscular Hemoglobin 30.5 Normal 24.7-34.3 pg LAB MCHC Mean Corpuscular HGB Conc 33.7 Normal 32.0-35.0 g/dL LAB RDW Red Cell Distribution Width 13.4 Normal 11.9-15.3 % LAB PLT Platelet Count 255 Normal 150-450 10*3/uL LAB MPV Mean Platelet Volume 7.5 Normal 6.3-10.7 fL LAB NE% Neutrophils % (Auto) 81.1 . % LAB LY% Lymphocytes % (Auto) 8.5 . % LAB MO% Monocytes % (Auto) 6.9 . % LAB EO% Eosinophils % (Auto) 3.0 . % LAB BA% Basophils % (Auto) 0.5 . % LAB NRBC% NRBC% 0.0 Normal 0-0.5 /100{WBC } LAB NE# Neutrophils # (Auto) 8.4 High 1.8-7.7 10*3/uL LAB LY# Lymphocytes # (Auto) 0.9 Low 1.00-4.8 10*3/uL LAB MO# Monocytes # (Auto) 0.7 Normal 0.0-0.8 10*3/uL LAB EO# Eosinophils # (Auto) 0.3 Normal 0.0-0.45 10*3/uL LAB BA# Basophils # (Auto) 0.1 Normal 0.0-0.2 10*3/uL Result Comment: PERFORMED BY : [place] [address] PATHOLOGIST SALESPERSON HOSIERY XAVIER AGARWAL M.D. Performed By: #### CBC #### [address] GLUCOSE POCT GLUCOMETERS Collected: 09/02/2023 6:06 P M Status: F Source: [facility] REPOSITORY TYPE CODE TESTS RESULT OUT OF RANGE REFERENCE UNITS LAB GLUPOC Glucose Poc Glucometers 138 mg/dL Result Comment: Random Gluco se Reference Range is dependent on time and content of last meal. Glucose of more than 200 mg/dL in a nonstressed, ambulatory subject supports the diagnosis of Diabetes Mellitus. LAB COMM1 Commemt1 Glu2: Cleaned Meter Result Comment: PERFORMED BY : [place] [address] PATHOLOGIST SALESPERSON HOSIERY XAVIER AGARWAL M.D. Performed By: #### GLULS ### # Point of Care testing , GLUCOSE POCT GLUCOMETERS Collected: 09/02/2023 3:34 P M Status: F Source: [facility] REPOSITORY TYPE CODE TESTS RESULT OUT OF RANGE REFERENCE UNITS LAB GLUPOC Glucose Poc Glucometers 75 mg/dL Result Comment: Random Gluc ose Reference Range is dependent on time and content of last meal. Glucose of more than 200 mg/dL in a nonstressed, ambulatory subject supports the diagnosis of Diabetes Mellitus. LAB COMM1 Commemt1 Glu2: Cleaned Meter Result Comment: PERFORMED BY : [place] [address] PATHOLOGIST SALESPERSON HOSIERY XAVIER AGARWAL M.D. Performed By: #### GLULS ### # Point of Care testing , SCAN AND CBC Collected: 09/02/2023 5:57 AM Status: F Source: [facility] REPOSITORY TYPE CODE TESTS RESULT OUT OF RANGE REFERENCE UNITS LAB WBC White Blood Count 13.9 High 3.8-11.6 10*3/uL LAB UNWBC Uncorrected WBC 13.9 High 3.8-11.6 10*3/uL LAB RBC Red Blood Count 3.61 Normal 3.60-5.00 LAB HGB Hemoglobin 11.0 Low 11.8-15.4 g/dL LAB HCT Hematocrit 32.9 Low 34.0-46.4 % LAB MCV Mean Corpuscular Volume 91.0 Normal 80-100 fL LAB MCH Mean Corpuscular Hemoglobin 30.3 Normal 24.7-34.3 pg LAB MCHC Mean Corpuscular HGB Conc 33.3 Normal 32.0-35.0 g/dL LAB RDW Red Cell Distribution Width 13.4 Normal 11.9-15.3 % LAB PLT Platelet Count 249 Normal 150-450 10*3/uL LAB MPV Mean Platelet Volume 7.8 Normal 6.3-10.7 fL LAB NE% Neutrophils % (Auto) 84.3 . % LAB LY% Lymphocytes % (Auto) 8.0 . % LAB MO% Monocytes % (Auto) 4.3 . % LAB EO% Eosinophils % (Auto) 3.0 . % LAB BA% Basophils % (Auto) 0.4 . % LAB NRBC% NRBC% 0.0 Normal 0-0.5 /100{WBC } LAB NE# Neutrophils # (Auto) 11.7 High 1.8-7.7 10*3/uL LAB LY# Lymphocytes # (Auto) 1.1 Normal 1.00-4.8 10*3/uL LAB MO# Monocytes # (Auto) 0.6 Normal 0.0-0.8 10*3/uL LAB EO# Eosinophils # (Auto) 0.4 Normal 0.0-0.45 10*3/uL LAB BA# Basophils # (Auto) 0.1 Normal 0.0-0.2 10*3/uL LAB ANISO Anisocytosis Slight LAB MICR Microcytosis Slight LAB PLT EST Platelet Estimate Normal Normal LAB PLTM Platelet Morphology Normal Normal Result Comment: PERFORMED BY : [place] [address] PATHOLOGIST SALESPERSON HOSIERY XAVIER AGARWAL M.D. Performed By: #### SCAN CBC #### [facility] [address] GLUCOSE POCT GLUCOMETERS Collected: 09/02/2023 12:31 AM Status: F Source: [facility] REPOSITORY TYPE CODE TESTS RESULT OUT OF RANGE REFERENCE UNITS LAB GLUPOC Glucose Poc Glucometers 70 mg/dL Result Comment: Random Gluco se Reference Range is dependent on time and content of last meal. Glucose of more than 200 mg/dL in a nonstressed, ambulatory subject supports the diagnosis of Diabetes Mellitus. PERFORMED BY: [place] [address] PATHOLOGIST SALESPERSON HOSIERY XAVIER AGARWAL M.D. Performed By: #### GLULS ### # Point of Care testing , GLUCOSE POCT GLUCOMETERS Collected: 09/01/2023 6:06 P M Status: F Source: [facility] REPOSITORY TYPE CODE TESTS RESULT OUT OF RANGE REFERENCE UNITS LAB GLUPOC Glucose Poc Glucometers 232 mg/dL Result Comment: Random Gluco se Reference Range is dependent on time and content of last meal. Glucose of more than 200 mg/dL in a nonstressed, ambulatory subject supports the diagnosis of Diabetes Mellitus. PERFORMED BY: [place] [id number] PATHOLOGIST SALESPERSON HOSIERY XAVIER AGARWAL M.D. Performed By: #### GLULS ### # Point of Care testing , GLUCOSE POCT GLUCOMETERS Collected: 09/01/2023 11:14 AM Status: F Source: [facility] REPOSITORY TYPE CODE TESTS RESULT OUT OF RANGE REFERENCE UNITS LAB GLUPOC Glucose Poc Glucometers 116 mg/dL Result Comment: Random Gluco se Reference Range is dependent on time and content of last meal. Glucose of more than 200 mg/dL in a nonstressed, ambulatory subject supports the diagnosis of Diabetes Mellitus. PERFORMED BY: [address] [place] [address] PATHOLOGIST SALESPERSON HOSIERY XAVIER AGARWAL M.D. Performed By: #### GLULS ### # Point of Care testing , GLUCOSE POCT GLUCOMETERS Collected: 09/01/2023 6:56 A M Status: F Source: [facility] REPOSITORY TYPE CODE TESTS RESULT OUT OF RANGE REFERENCE UNITS LAB GLUPOC Glucose Poc Glucometers 124 mg/dL Result Comment: Random Gluco se Reference Range is dependent on time and content of last meal. Glucose of more than 200 mg/dL in a nonstressed, ambulatory subject supports the diagnosis of Diabetes Mellitus. PERFORMED BY: [facility] [address] [facility] [place] [address] PATHOLOGIST SALESPERSON HOSIERY XAVIER AGARWAL M.D. Performed By: #### GLULS ### # Point of Care testing , COMPLETE BLOOD COUNT AUTO DIFF Collected: 09/01/2023 6:27 AM Status: F Source: [facility] REPOSITORY TYPE CODE TESTS RESULT OUT OF RANGE REFERENCE UNITS LAB WBC White Blood Count 17.6 High 3.8-11.6 10*3/uL LAB UNWBC Uncorrected WBC 17.6 High 3.8-11.6 10*3/uL LAB RBC Red Blood Count 3.64 Normal 3.60-5.00 LAB HGB Hemoglobin 11.0 Low 11.8-15.4 g/dL LAB HCT Hematocrit 33.1 Low 34.0-46.4 % LAB MCV Mean Corpuscular Volume 90.9 Normal 80-100 fL LAB MCH Mean Corpuscular Hemoglobin 30.3 Normal 24.7-34.3 pg LAB MCHC Mean Corpuscular HGB Conc 33.3 Normal 32.0-35.0 g/dL LAB RDW Red Cell Distribution Width 13.7 Normal 11.9-15.3 % LAB PLT Platelet Count 253 Normal 150-450 10*3/uL LAB MPV Mean Platelet Volume 7.8 Normal 6.3-10.7 fL LAB NE% Neutrophils % (Auto) 91.2 . % LAB LY% Lymphocytes % (Auto) 5.5 . % LAB MO% Monocytes % (Auto) 2.3 . % LAB EO% Eosinophils % (Auto) 0.7 . % LAB BA% Basophils % (Auto) 0.3 . % LAB NRBC% NRBC% 0.2 Normal 0-0.5 /100{WBC } LAB NE# Neutrophils # (Auto) 16.0 High 1.8-7.7 10*3/uL LAB LY# Lymphocytes # (Auto) 1.0 Normal 1.00-4.8 10*3/uL LAB MO# Monocytes # (Auto) 0.4 Normal 0.0-0.8 10*3/uL LAB EO# Eosinophils # (Auto) 0.1 Normal 0.0-0.45 10*3/uL LAB BA# Basophils # (Auto) 0.1 Normal 0.0-0.2 10*3/uL Result Comment: PERFORMED BY : [place] [address] PATHOLOGIST SALESPERSON HOSIERY XAVIER AGARWAL M.D. Performed By: #### CBC #### [facility] [address] GLUCOSE POCT GLUCOMETERS Collected: 08/31/2023 8:39 P M Status: F Source: [facility] REPOSITORY TYPE CODE TESTS RESULT OUT OF RANGE REFERENCE UNITS LAB GLUPOC Glucose Poc Glucometers 293 mg/dL Result Comment: Random Gluco se Reference Range is dependent on time and content of last meal. Glucose of more than 200 mg/dL in a nonstressed, ambulatory subject supports the diagnosis of Diabetes Mellitus. PERFORMED BY: [place] [address] PATHOLOGIST SALESPERSON HOSIERY XAVIER AGARWAL M.D. Performed By: #### GLULS ### # Point of Care testing , GLUCOSE POCT GLUCOMETERS Collected: 08/31/2023 4:28 P M Status: F Source: [facility] REPOSITORY TYPE CODE TESTS RESULT OUT OF RANGE REFERENCE UNITS LAB GLUPOC Glucose Poc Glucometers 476 High Off Scale mg/dL Result Comment: Random Gluco se Reference Range is dependent on time and content of last meal. Glucose of more than 200 mg/dL in a nonstressed, ambulatory subject supports the diagnosis of Diabetes Mellitus. LAB COMM1 Commemt1 Result Comment: Glu2: WILL N OTIFY DR/HEAD OF INSIGHT COMM2 Commemt2 Cleaned Meter Result Comment: PERFORMED BY : [place] [address] PATHOLOGIST SALESPERSON HOSIERY XAVIER AGARWAL M.D. Performed By: #### GLULS ### # Point of Care testing , XR CHEST 1V PORTABLE Observed: 3 8:38 AM Status: COMPLETED Source: [facility] REPOSITORY [facility] [place] [address] XRay Report Signed Patient: Namrata Jack MR#: [id number] 6 : 1955 Acct:[id number] Age/Sex: 67 / F ADM Date: 08/31/23 Loc: Room: [address] [place] [address] Type: ADM IN Attending Dr: Pavel Charles DO Copies to: DO Andres Purvis DO Ordering Provider: Andres Witt DO Date of Service: 08/31/23 XR/XR chest 1V portable: Nausea/Vomiting/Diarrhea Plain film chest Single view HISTORY: Nausea and vomiting. Weakness. COMPARISON: 05/27/2023 FINDINGS: SUPPORT DEVICES: None POSTSURGICAL CHANGES: Lower cervical spine fixation hardware HEART: Within normal limits PULMONARY MARY: Within normal limits MEDIASTINUM: Unremarkable LUNGS AND PLEURA: No acute lung process, pleural effusion or pneumothorax identified. BONY STRUCTURES: Intact ADDITIONAL FINDINGS None XR/XR chest 1V portable IMPRESSION: No acute process. Impression dictated by: Harmeet Jackson M.D.08/31/2023 8:39 AM Dictation Location: [place] [address] Transcribed By: [facility] 08/31/23838 Dictated By: Harmeet Jackson DO 08/31/23837 Signed By: <Electronically signed by Harmeet Jackson DO in OV> 08/31/23838 CT ABDOMEN PELVIS WO CON Observed: 08/31 8:34 AM Status: COMPLETED Source: [facility] REPOSITORY [facility] [place] [address] CT Scan Report Signed Patient: Namrata Jack MR#: [id number] 6 : 1955 Acct:[id number] Age/Sex: 67 / F ADM Date: 08/31/23 Loc: Room: [address] [place] [address] Type: ADM IN Attending Dr: Pavel Charles DO Copies to: DO Andres Purvis DO Ordering Provider: Andres Witt DO Date of Service: 08/31/23 CT/CT abdomen pelvis wo con: lower abd tenderness, fever CT Abdomen and Pelvis withoutcontrast TECHNIQUE: Axial imaging with 2-D reconstruction. . The CT exam was performed using one or more the following dose reduction techniques: Automated exposure control, adjustment of the MA and/or Kv according to patient size, or use of the iterative reconstruction technique. COMPARISON: 12/08/2021 History: Lower abdominal pain. Fever. LIMITATIONS: None LOWER THORAX Unremarkable LIVER: Unremarkable GALLBLADDER: Cholecystectomy clips identified. BILE DUCTS: No dilatation SPLEEN: Unremarkable PANCREAS: Atrophic changes. No pancreatic lesion or ductal dilatation seen. No inflammatory changes. ADRENAL GLANDS: Unremarkable KIDNEYS:Unremarkable AORTA: No abdominal aortic aneurysm identified. Atherosclerosis. RETROPERITONEUM: No significant retroperitoneal abnormalities identified. MESENTERY:Unremarkable SMALL BOWEL: The small bowel loops are nondistended. APPENDIX: The appendix is not seen. No pericecal inflammatory changes identified. COLON: Dense colonic catheter fecal retention without obstruction. URINARY BLADDER: Urinary bladder is unremarkable. REPRODUCTIVE SYSTEM: The uterus is absent. PNEUMOPERITONEUM: None PERITONEAL FLUID:None BONY STRUCTURES: Lumbar degeneration. L4-5 fusion. ABDOMINAL WALL: Unremarkable CT/CT abdomen pelvis wo con IMPRESSION: No nephrolithiasis or obstructive uropathy. No acute findings. Impression dictated by: Harmeet Jackson M.D.08/31/2023 8:38 AM Dictation Location: [place] [address] Transcribed By: [facility] 08/31/2338 Dictated By: Harmeet Jackson DO 08/31/23 0834 Signed By: <Electronically signed by Harmeet Jackson DO in OV> 08/31/23837 COMPREHENSIVE METABOLIC PANEL Collected: 08/31/2023 7 :01 AM Status: F Source: [facility] REPOSITORY TYPE CODE TESTS RESULT OUT OF RANGE REFERENCE UNITS LAB GLU Glucose 374 High 70-100 mg/dL Result Comment: Random Gluco se Reference Range is dependent on time and content of last meal. Glucose of more than 200 mg/dL in a nonstressed, ambulatory subject supports the diagnosis of Diabetes Mellitus. ADA recommended reference range LAB BUN Blood Urea Nitrogen 39 High 7-25 mg/d L LAB CREATT Creatinine 1.69 High 0.60-1.20 mg/dL LAB GFReNR Estimated GFR 32.693 LAB NA Sodium 130 Low 136-145 mmol/L LAB K Potassium 3.9 Normal 3.5-5.1 mmol/L LAB CL Chloride 91 Low 98-107 mmol/L LAB CO2 Carbon Dioxide 30.1 Normal 21.0-31.0 mmol/L LAB GAP Anion Gap 12.8 Normal 6.0-15.0 LAB CA Calcium 8.2 Low 8.6-10.3 mg/dL LAB TP Total Protein 5.7 Low 6.4-8.9 g/dL LAB ALB Albumin Level 3.2 Low 3.5-5.7 g/dL LAB GLOB Globulin 2.5 g/dL LAB AGRATIO Albumin/Globulin Ratio 1.3 LAB BILIT Bilirubin,Total 0.6 Normal 0.3-1.0 mg/dL LAB AST Aspartate Amino Transferase 13 Normal 13-39 U/L LAB ALT Alanine Aminotransferase 10 Normal 7-52 U/L LAB ALP Alkaline Phosphatase 48 Normal 34-104 U/L LAB CRCLPHA Creatinine Clr C alc Pharmacy 45.95 Performed By: #### MG, CMP, CBC #### [facility] [address] [place], [place] [id number] [facility] MAGNESIUM Collected: 7:01 AM Status: F Source: [facility] REPOSITORY TYPE CODE TESTS RESULT OUT OF RANGE REFERENCE UNITS LAB MG Magnesium 1.4 Low 1.9-2.7 mg/dL Result Comment: PERFORMED BY : [place] [address] PATHOLOGIST SALESPERSON HOSIERY XAVIER AGARWAL M.D. Performed By: #### MG, CMP, CBC #### [address] COMPLETE BLOOD COUNT AUTO DIFF Collected: 08/31/2023 7:01 AM Status: F Source: F [facility] REPOSITORY TYPE CODE TESTS RESULT OUT OF RANGE REFERENCE UNITS LAB WBC White Blood Count 15.6 High 3.8-11.6 10*3/uL LAB UNWBC Uncorrected WBC 15.6 High 3.8-11.6 10*3/uL LAB RBC Red Blood Count 3.73 Normal 3.60-5.00 LAB HGB Hemoglobin 11.3 Low 11.8-15.4 g/dL LAB HCT Hematocrit 34.0 Normal 34.0-46.4 % LAB MCV Mean Corpuscular Volume 91.2 Normal 80-100 fL LAB MCH Mean Corpuscular Hemoglobin 30.4 Normal 24.7-34.3 pg LAB MCHC Mean Corpuscular HGB Conc 33.3 Normal 32.0-35.0 g/dL LAB RDW Red Cell Distribution Width 13.7 Normal 11.9-15.3 % LAB PLT Platelet Count 274 Normal 150-450 10*3/uL LAB MPV Mean Platelet Volume 7.4 Normal 6.3-10.7 fL LAB MDW Monocyte Distribution Width Test Not Performed Normal 0.00-20.00 Result Comment: Unable to ca lculate MDW because the Absolute Monocyte Count is <0.8. LAB NE% Neutrophils % (Auto) 96.1 . % LAB LY% Lymphocytes % (Auto) 2.7 . % LAB MO% Monocytes % (Auto) 1.0 . % LAB EO% Eosinophils % (Auto) 0.0 . % LAB BA% Basophils % (Auto) 0.2 . % LAB NRBC% NRBC% 0.0 Normal 0-0.5 /100{WBC } LAB NE# Neutrophils # (Auto) 15.0 High 1.8-7.7 10*3/uL LAB LY# Lymphocytes # (Auto) 0.4 Low 1.00-4.8 10*3/uL LAB MO# Monocytes # (Auto) 0.2 Normal 0.0-0.8 10*3/uL LAB EO# Eosinophils # (Auto) 0.0 Normal 0.0-0.45 10*3/uL LAB BA# Basophils # (Auto) 0.0 Normal 0.0-0.2 10*3/uL Result Comment: PERFORMED BY : [place] [address] PATHOLOGIST SALESPERSON HOSIERY XAVIER AGARWAL M.D. Performed By: #### MG, CMP, CBC #### [facility] [address] [place], [place] [id number] [facility] LACTIC ACID Collected: 3:38 AM Status: F Source: [facility] REPOSITORY TYPE CODE TESTS RESULT OUT OF RANGE REFERENCE UNITS LAB LACTIC Lactic Acid 1.3 0.5-2.2 mmol/L Result Comment: PERFORMED BY : [place] [address] PATHOLOGIST SALESPERSON HOSIERY XAVIER AGARWAL M.D. Performed By: #### LACTIC ## ## [facility] [address] [place] [address] BLOOD CULTURE Observed: 08/31/2023 1:17 AM Status: F Source: [facility] REPOSITORY NO GROWTH 5 DAYS PERFORMED BY: [place] [address] PATHOLOGIST SALESPERSON HOSIERY XAVIER AGARWAL M.D. Performed By: #### BMP, CBC, CUBLD, BILIT, PTT, PT, LACTIC #### [facility] [address] [place] [address] DIPSTICK AND MICROSCOPIC Collected: 11/2022 1:06 AM Status: F Source: [facility] REPOSITORY Order Comment: Name Collecti on Type:: Clean-Voided Midstream TYPE CODE TESTS RESULT OUT OF RANGE REFERENCE UNITS LAB UCOL Color,Urine Yellow Yellow LAB UAPP Appearance,Uri ne Turbid Abnormal Alert Clear LAB USG Specificy [place],Urine 1.013 Normal 1.001-1.030 LAB UPH pH,Urine 6.0 Normal 5.0-9.0 LAB ULE Leukocyte Esterase,Urine Negative Negative LAB UNIT Nitrite,Urine Negative Negative LAB UPRO Protein,Urine Negative Negative LAB UGL Glucose,Urine (UA) Normal Normal LAB UKET Ketones,Urine Negative Negative LAB UURO Urobilinogen,U rine Normal Normal LAB UBIL Bilirubin,Urin e Negative Negative LAB UBLD Occult Blood,Urine Negative Negative Result Comment: PERFORMED BY : [place] [address] PATHOLOGIST SALESPERSON HOSIERY XAVIER AGARWAL M.D. LAB URBC RBC,Urine 5-9 High 0-4 LAB UWBC WBC,Urine 1-2 0-4 LAB USQEPI Squamous Epithelial Cell,Urine 5-9 High 0-2 LAB UBACT Bacteria,Urine None Seen None Seen LAB UHYALC Hyaline Casts,Urine 0-8 0-8 LAB UYEAST Yeast,Urine Rare Abnormal Alert None Seen Result Comment: PERFORMED BY : [facility] [address] [place] [id number] PATHOLOGIST SALESPERSON HOSIERY XAVIER AGARWAL M.D. Performed By: #### ADDONUAPL #### [address] COMPLETE BLOOD COUNT AUTO DIFF Collected: 08/31/2023 12:35 AM Status: F Source: [facility] REPOSITORY TYPE CODE TESTS RESULT OUT OF RANGE REFERENCE UNITS LAB WBC White Blood Count 18.1 High 3.8-11.6 10*3/uL LAB UNWBC Uncorrected WBC 18.1 High 3.8-11.6 10*3/uL LAB RBC Red Blood Count 4.30 Normal 3.60-5.00 LAB HGB Hemoglobin 13.0 Normal 11.8-15.4 g/dL LAB HCT Hematocrit 39.1 Normal 34.0-46.4 % LAB MCV Mean Corpuscular Volume 91.0 Normal 80-100 fL LAB MCH Mean Corpuscular Hemoglobin 30.3 Normal 24.7-34.3 pg LAB MCHC Mean Corpuscular HGB Conc 33.3 Normal 32.0-35.0 g/dL LAB RDW Red Cell Distribution Width 13.7 Normal 11.9-15.3 % LAB PLT Platelet Count 338 Normal 150-450 10*3/uL LAB MPV Mean Platelet Volume 7.8 Normal 6.3-10.7 fL LAB MDW Monocyte Distribution Width 25.60 High 0.00-20.00 % Result Comment: For adults i n ED, MDW > 20.0 may be associated with a higher risk of sepsis during the first 12 hrs of hospital admission LAB NE% Neutrophils % (Auto) 96.1 . % LAB LY% Lymphocytes % (Auto) 1.9 . % LAB MO% Monocytes % (Auto) 1.7 . % LAB EO% Eosinophils % (Auto) 0.1 . % LAB BA% Basophils % (Auto) 0.2 . % LAB NRBC% NRBC% 0.0 Normal 0-0.5 /100{WBC } LAB NE# Neutrophils # (Auto) 17.4 High 1.8-7.7 10*3/uL LAB LY# Lymphocytes # (Auto) 0.3 Low 1.00-4.8 10*3/uL LAB MO# Monocytes # (Auto) 0.3 Normal 0.0-0.8 10*3/uL LAB EO# Eosinophils # (Auto) 0.0 Normal 0.0-0.45 10*3/uL LAB BA# Basophils # (Auto) 0.0 Normal 0.0-0.2 10*3/uL Result Comment: PERFORMED BY : [place] [address] PATHOLOGIST SALESPERSON HOSIERY XAVIER AGARWAL M.D. Performed By: #### BMP, CBC, CUBLD, BILIT, PTT, PT, LACTIC #### [facility] [address] BASIC METABOLIC PANEL Collected: 2022 12:35 AM Status: F Source: [facility] REPOSITORY TYPE CODE TESTS RESULT OUT OF RANGE REFERENCE UNITS LAB GLU Glucose 280 High 70-100 mg/dL Result Comment: Random Gluco se Reference Range is dependent on time and content of last meal. Glucose of more than 200 mg/dL in a nonstressed, ambulatory subject supports the diagnosis of Diabetes Mellitus. ADA recommended reference range LAB BUN Blood Urea Nitrogen 41 High 7-25 mg/dL LAB CREATT Creatinine 1.87 High 0.60-1.20 mg/dL LAB GFReNR Estimated GFR 28.954 LAB NA Sodium 133 Low 136-145 mmol/L LAB K Potassium 3.3 Low 3.5-5.1 mmol/L LAB CL Chloride 91 Low 98-107 mmol/L LAB CO2 Carbon Dioxide 32.0 High 21.0-31.0 mmol/L LAB GAP Anion Gap 13.3 Normal 6.0-15.0 LAB CA Calcium 9.2 Normal 8.6-10.3 mg/dL LAB CRCLPHA Creatinine Clr Calc Pharmacy 41.01 Performed By: #### BMP, CBC, CUBLD, BILIT, PTT, PT, LACTIC #### [facility] [address] [place] [id number] [facility] BILIRUBIN,TOTAL Collected: 12:35 AM Status: F Source: [facility] REPOSITORY TYPE CODE TESTS RESULT OUT OF RANGE REFERENCE UNITS LAB BILIT Bilirubin,T otal 0.5 Normal 0.3-1.0 mg/dL Result Comment: PERFORMED BY : [place] [address] PATHOLOGIST [employer] HOSIERY XAVIER AGARWAL M.D. Performed By: #### BMP, CBC, CUBLD, BILIT, PTT, PT, LACTIC #### [facility] [address] [id number] [facility] PROTHROMBIN TIME INR Collected: 12:35 AM Status: F Source: [facility] REPOSITORY TYPE CODE TESTS RESULT OUT OF RANGE REFERENCE UNITS LAB R PT Prothrombin Time 13.1 High 9.0-12.9 s Result Comment: A hematocrit value greater than 55% may lead to inaccurate results in coagulation testing. Patients having hematocrit values >55% require a special collection tube for coagulation studies. Please contact the laboratory at [phone] for redraw instructions. LAB INR INR 1.1 Result Comment: INR Therapeu tic Range A) Pre- and Peroperative OAT started two weeks before surgery. NOT HIP SURGERY: 1.5 - 2.5 HIP SURGERY: 2 - 3 B) Primary and secondary prevention of venous THROMBOSIS: 2 - 3 C) Active venous thrombosis, pulmonary embolism and prevention of recurrent venous thrombosis: 2 - 3 D) Prevention of arterial thromboembolism including patients with mechanical heart valves: 3 - 4.5 Performed By: #### BMP, CBC, CUBLD, BILIT, PTT, PT, LACTIC #### [facility] [address] [id number] [facility] PARTIAL THROMBOPLASTIN TIME Collected: 08/31/2023 12: 35 AM Status: F Source: [facility] REPOSITORY TYPE CODE TESTS RESULT OUT OF RANGE REFERENCE UNITS LAB PTT Partial Thromboplastin Time 27.4 Normal 25.1-36.5 s Result Comment: A hematocrit value greater than 55% may lead to inaccurate results in coagulation testing. Patients having hematocrit values >55% require a special collection tube for coagulation studies. Please contact the laboratory at [phone] for redraw instructions. PERFORMED BY: [place] [address] PATHOLOGIST SALESPERSON HOSIERY XAVIER AGARWAL M.D. Performed By: #### BMP, CBC, CUBLD, BILIT, PTT, PT, LACTIC #### [facility] [address] [id number] [facility] LACTIC ACID Collected: 12:35 AM Status: F Source: [facility] REPOSITORY TYPE CODE TESTS RESULT OUT OF RANGE REFERENCE UNITS LAB LACTIC Lactic Acid 2.6 High Off Scale 0.5-2.2 mmol/L Result Comment: Critical Res ult : Called to and read back by: RACHEL WILLARD at: 08/31/2023 02:04:37 by:[id number] PERFORMED BY: [place] [address] PATHOLOGIST SALESPERSON HOSIERY XAVIER AGARWAL M.D. Performed By: #### BMP, CBC, CUBLD, BILIT, PTT, PT, LACTIC #### [address] [id number] [facility] BLOOD CULTURE Observed: 08/31/2023 12:35 AM Status: F Source: [facility] REPOSITORY [employer] BCID Panel results c alled at 1528 on 08/31/23 Gram Stain Gram Positive Cocci in Chains ORGANISM: Strep dysgalactiae (O:STRDYS) Aerobic Aida Charge (Strep) SUSCEPTIBILITY ORGANISM: O:STRDYS ANTIBIOTIC INTERPRETATION AIDA Ampicillin S <0.06 Cefepime S <0.25 Ceftriaxone S <0.25 Erythromycin S <0.06 Levofloxacin S 0.5 Penicillin S <0.03 Vancomycin S 0.5 [employer] BCID Panel results called at 1528 on 08/31/23 Staphylococcus aureus DNA [Presence] by BRANDY with non-probe detection in Positive blood culture Not detected Bacteroides fragilis DNA [Presence] by BRANDY with non-probe detection in Positive blood culture Not detected Maria R auris DNA [Presence] by BRANDY with non-probe detection in Positive blood culture Not detected Maria R albicans DNA [Presence] by BRANDY with non-probe detection in Positive blood culture Not detected Acinetobacter calcoaceticus-baumannii complex DNA [Presence] by BRANDY with non- probe detection in Positive blood culture Not detected Cryptococcus neoformans or gattii 9002 Not detected Cephalosporin resistance blaCTX-M gene [Presence] by Molecular method Not Applicable Escherichia coli Not detected Enterobacterales DNA [Presence] by BRANDY with non-probe detection in Positive blood culture Not detected Enterobacter cloacae complex DNA [Presence] by BRANDY with non-probe detection in Positive blood culture Not detected Staphylococcus epidermidis DNA [Presence] by RBANDY with non-probe detection in Positive blood culture Not detected Enterococcus faecalis DNA [Presence] by BRANDY with non-probe detection in Positive blood culture Not detected Enterococcus faecium DNA [Presence] by BRANDY with non-probe detection in Positive blood culture Not detected Maria R glabrata DNA [Presence] by BRANDY with non-probe detection in Positive blood culture Not detected Haemophilus influenzae (reported as H flu) Not detected Carbapenem resistance blaIMP gene [Presence] by Molecular method Not Applicable Klebsiella aerogenes DNA [Presence] by BRANDY with non-probe detection in Positive blood culture Not detected Klebsiella pneumoniae+Klebsiella variicola+Klebsiella quasipneumoniae DNA [Presence] by BRANDY with non-probe detection in Positive blood culture Not detected Klebsiella oxytoca DNA [Presence] by BRANDY with non-probe detection in Positive blood culture Not detected Carbapenem resistance blaKPC gene [Presence] by Molecular method Not Applicable Maria R krusei DNA [Presence] by BRANDY with non-probe detection in Positive blood culture Not detected Listeria monocytogenes (reported as listeriosis) Not detected Staphylococcus lugdunensis DNA [Presence] by BRANDY with non-probe detection in Positive blood culture Not detected Methicillin resistance mecA+mecC genes+SCCmec+OrfX junction [Presence] by Molecular method Not Applicable Carbapenem resistance blaNDM gene [Presence] by Molecular method Not Applicable Neisseria meningitidis - reported as meningococcal disease Not detected Carbapenem resistance marissa OXA-48-like gene [Presence] by Molecular method Not Applicable Maria R parapsilosis DNA [Presence] by BRANDY with non-probe detection in Positive blood culture Not detected Streptococcus pneumoniae - reported at IS Not detected Proteus sp DNA [Presence] by BRANDY with non-probe detection in Positive blood culture Not detected Pseudomonas aeruginosa DNA [Presence] by BRANDY with non-probe detection in Positive blood culture Not detected Salmonella sp DNA [Presence] by BRANDY with non-probe detection in Positive blood culture Not detected Serratia marcescens DNA [Presence] by BRANDY with non-probe detection in Positive blood culture Not detected Staphylococcus sp DNA [Presence] by BRANDY with non-probe detection in Positive blood culture Not detected Stenotrophomonas maltophilia DNA [Presence] by BRANDY with non-probe detection in Positive blood culture Not detected Group A (Streptococcus pyogenes) [id number] Not detected Group B Strep (Streptococcus agalactiae) Not detected Streptococcus sp DNA [Presence] by BRANDY with non-probe detection in Positive blood culture Detected Maria R tropicalis DNA [Presence] by BRANDY with non-probe detection in Positive blood culture Not detected Vancomycin resistance Abdiel + vanB genes [Presence] by Molecular method Not Applicable Carbapenem resistance blaVIM gene [Presence] by Molecular method Not Applicable Colistin resistance mcr-1 gene [Presence] by Molecular method Not Applicable Methicillin resistance mecA+mecC genes [Presence] in Isolate or Specimen by Molecular genetics method Not Applicable RESIS. GENE COMMENT 1 Antimicrobial resistance can occur via multiple RESIS. GENE COMMENT 2 mechanisms. A Not Detected result for antimicrobial RESIS. GENE COMMENT 3 resistance gene(s) does not indicate antimicrobial RESIS. GENE COMMENT 4 susceptibility. S = SUSCEPTIBLE I = INTERMEDIATE R = RESISTANT BLANK = DATA NOT AVAILABLE, OR DRUG NOT ADVISABLE OR TESTED R* = RESISTANCE DUE TO EXTENDED SPECTRUM BETA-LACTAMASES ESBL = EXTENDED SPECTRUM BETA-LACTAMASE TFG = THYMIDINE-DEPENDENT STRAIN ARTHUR = BETA-LACTAMASE POSITIVE IB = INDUCIBLE BETA-LACTAMASE. APPEARS IN PLACE OF 'S' WITH SPECIES KNOWN TO POSSESS INDUCIBLE BETA-LACTAMASES. POTENTIALLY THEY MAY BECOME RESISTANT TO ALL B-LACTAM DRUGS. PERFORMED BY: [place] [address] PATHOLOGIST SALESPERSON HOSIERY XAVIER AGARWAL M.D. Performed By: #### BMP, CBC, CUBLD, BILIT, PTT, PT, LACTIC #### [address] ECG 12 LEAD ECG Observed: 08/31/2023 12:25 AM Status: COMPLETED Source: [facility] REPOSITORY [facility] [place] [address] [place] [address] Electrocardiograph Report Signed Patient: Namrata Jack MR#: [id number] 6 : 1955 Acct:[id number] Age/Sex: 67 / F ADM Date: 08/31/23 Loc: Room: [address] [place] [address] Type: ADM IN Attending Dr: Medardo Darling DO Ordering Provider: Andres Witt DO Date of Service: 08/31/2312/22/20 ECG/ECG 12 lead ECG: Nausea/Vomiting/Diarrhea Copies to: Test Reason : Blood Pressure : 173/070 mmHG Vent. Rate : 098 BPM Atrial Rate : 098 BPM P-R Int : 192 ms QRS Dur : 086 ms QT Int : 400 ms P-R-T Axes : 014 -07 042 degrees QTc Int : 510 ms Sinus rhythm with premature atrial complexes Left ventricular hypertrophy with repolarization abnormality Prolonged QT Confirmed by Andres Witt DO ([id number]) on 08/31/2023 6:17:56 AM Referred By: Electronically Signed By:Andres Witt DO Transcribed By: MUS Signed By Andres Witt DO [id number] COVID-19 / FLU A/B / RSV PCR Observed: 1 10/31/2022 12:23 AM Status: F Source: [facility] REPOSITORY COVID-19 Cepheid Result Negative for SARS-CoV-2 RNA by RT-PCR Flu A Cepheid Result Negative for Flu A RNA by RT-PCR Flu B Cepheid Result Negative for Flu B RNA by RT-PCR RSV Cepheid Result Negative for RSV RNA by RT-PCR COVID19 Blank Space Reference: Negative COVID19 Blank Space Cepheid Disclaimer The Cepheid Xpert Xpress CoV-2/Flu/RSV Plus has Cepheid Disclaimer not been FDA cleared or approved; this test has Cepheid Disclaimer been authorized by FDA under an EUA for use by Cepheid Disclaimer authorized laboratories; this test has been Cepheid Disclaimer authorized only for the simultaneous qualitative Cepheid Disclaimer detection and differentiation of nucleic acids from Cepheid Disclaimer SARS-CoV-2, influenza A, influenza B, and Cepheid Disclaimer respiratory syncytial virus (RSV), and not for any Cepheid Disclaimer other viruses or pathogens; and this test is only Cepheid Disclaimer authorized for the duration of the declaration that Cepheid Disclaimer circumstances exist justifying the authorization of Cepheid Disclaimer emergency use of in vitro diagnostic tests for Cepheid Disclaimer detection and/or diagnosis of COVID-19 under Cepheid Disclaimer Section 564(b)(1) of the Act, 21 U.S.C. 360bbb- Cepheid Disclaimer 3(b)(1), unless the authorization is terminated or Cepheid Disclaimer revoked sooner. PERFORMED BY: [place] [address] PATHOLOGIST SALESPERSON HOSIERY XAVIER AGARWAL M.D. Performed By: #### COVID19 F LORE RSV, CEPHEID NEG #### [address] [id number] [facility] CEPHEID COVID PCR NEGATIVE Collected: 10/31/2022 12:23 AM Status: F Source: [facility] REPOSITORY TYPE CODE TESTS RESULT OUT OF RANGE REFERENCE UNITS LAB CEPHEID NEG Cepheid COVID PCR Negative Negative Negative Result Comment: This is a du plicate Cepheid Xpert Xpress CoV-2/Flu/RSV Plus RNA by RT-PCR result to be used for statistical tracking purpose only. PERFORMED BY: [address] [address] PATHOLOGIST SALESPERSON HOSIERY XAVIER AGARWAL M.D. Performed By: #### COVID19 F LORE RSV, CEPHEID NEG #### [address] [address] [facility] OFFICE VISIT (CARDIOLOGY) Observed: 05/31 12:45 PM Status: UNK Source: [facility] REPOSITORY Diagnoses/Problems Assessed Hospital discharge follow-up (V67.59) (Z09) CKD (chronic kidney disease), stage III (585.3) (N18.30) 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,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) Hypertensive kidney disease with chronic kidney disease, stage 1-4 (403.90) (I12.9) Diastolic dysfunction with chronic heart failure (428.32) (I50.32) Atherosclerosis of [place] coronary artery of [place] heart with angina pectoris (414.01,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) Hyperlipidemia (272.4) (E78.5) Hypertension (401.9) (I10) Stage 3b chronic kidney disease (585.3) (N18.32) Morbid obesity with BMI of 50.0-59.9, adult (278.01,V85.43) (E66.01,Z68.43) Never a smoker Orders Angina concurrent with and due to arteriosclerosis of coronary artery, Atherosclerosis of [place] coronary artery of [place] heart with angina pectoris Changed: From Aspirin EC 81 MG TBEC TAKE 1 TABLET DAILY To Aspirin 81 MG Oral Tablet Delayed Release TAKE 1 TABLET DAILY Atherosclerosis of [place] coronary artery of [place] heart with angina pectoris, CKD (chronic kidney disease), stage III, Diabetes mellitus with chronic kidney disease, Diastolic dysfunction with chronic heart failure, Dyspnea on exertion, Hyperlipidemia, Hypertensive kidney disease with chronic kidney disease, stage 1-4, Morbid obesity with BMI of 50.0-59.9, adult Complete Blood Count; Status:Active - Retrospective Authorization; Requested for:27Feb2023; Comprehensive Metabolic Panel; Status:Active - Retrospective Authorization; Requested for:27Feb2023; Hemoglobin A1C; Status:Active - Retrospective Authorization; Requested for:27Feb2023; Lipid Panel; Status:Active - Retrospective Authorization; Requested for:27Feb2023; Atherosclerosis of [place] coronary artery of [place] heart with angina pectoris, Hyperlipidemia Renew: Atorvastatin Calcium 80 MG Oral Tablet; TAKE 1 TABLET AT BEDTIME Morbid obesity with BMI of 50.0-59.9, adult Healthy Weight Tips; Status:Complete - Retrospective Authorization; Done: 26Jun2023 Some eating tips that can help you lose weight.; Status:Complete - Retrospective Authorization; Done: 26Jun2023 SocHx: Never a smoker Tobacco Use Screening; Status:Complete; Done: [id number] Patient Instructions Please bring all medicines, vitamins, and herbal supplements with you when you come to the office. Prescriptions will not be filled unless you are compliant with your follow up appointments or have a follow up appointment scheduled as per instruction of your physician. Refills should be requested at the time of your visit. Fall Prevention Education Given Follow up in 10 months March 2024 Chief Complaint [facility] – [place] d/c 05/30/23. History of Present Illness This is a hospital discharge follow-up Accompanied by to the office. Reviewed extensive records from the hospital at [facility] Patient was admitted with acute metabolic encephalopathy related to hypoglycemia, she says her blood sugar was in the 20s Patient was septic, related to urinary tract infection. Blood culture grew Streptococcus. Repeat cultures were negative and urine culture was negative. Treated initially with Rocephin and discharged on cefdinir. Infectious disease was involved Gastroenteritis Hyponatremia Acute on chronic kidney injury, treated with gentle hydration seen by nephrology losartan and Aldactone were held Lasix was held initially and then resumed by nephrology at the time of discharge losartan and Aldactone were placed on hold. Rehabilitated for 10 days postdischarge She says she lost 10 pounds during the course of the hospitalization and after that Laboratory data from May GFR is back to baseline. Potassium is normal. Blood pressure today is at target. Gets around in a motorized wheelchair. Denies chest pressure tightness or heaviness. Cardiology saw patient during hospital stay, medical therapy recommended, I agree, particularly given her recent coronary angiography findings. Has chronic 2+ lower extremity edema which is multifactorial. There is a dressing on the left leg, where a bleb had burst. On 03/16/2023 glucose was 242 creatinine 1.38 GFR 42. RAD 23 glucose 286 BUN 28 creatinine 1.37 GFR 42 sodium 137 potassium 4.5 Assessment: 1. 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 Morbid obesity 3. Diabetes mellitus, insulin-dependent 4. Difficulty with ambulation-predominantly gets around in the wheelchair 5. Echocardiogram November 2021-LVEF 60 to 65%, impaired diastolic filling, aortic sclerosis, RV systolic pressure 26 mmHg, TAPSE 2.2 cm, left atrial volume index 41 mL per metered square. 6. Left heart catheterization May 2019-right femoral approach-right dominant, normal left main, multiple stents overlapping mid LAD, patent, first diagonal branch 0% stenosis left circumflex nondominant, 1 major obtuse marginal branch, 50% proximal stenosis in the obtuse marginal branch, RCA dominant large, multiple stents positioned in the midsegment with no indication of in-stent restenosis LVEF 65% LVEDP 32 mmHg. Report suggested diffuse typical diabetic coronary artery disease patient was hypertensive 7. Patient's most recent PCI was to the distal RCA and that was done in April 2017 8. History of diverticulosis 9. History of back surgery cholecystectomy 10. Anaphylaxis to iodinated contrast 11. Cardiac catheterization February 2023-LVEF 50% no regional wall motion abnormality in the SALAS view LVEDP 25 to 30 mmHg no systolic gradient across the aortic valve no appreciable mitral regurgitation. Right dominant system with mild diffuse disease, mid RCA 40 to 50% smooth stenosis left main 20% stenosis left circumflex relatively large 50% to 60%ostial stenosis 50% first and major obtuse marginal branch proximal LAD 40% stenosis entire mid LAD is stented, with patent stent distal LAD subtotally occluded with CORINA II distal flow distal LAD diffusely calcified diagonal branch is small, diagonal branch fills retrograde from the distal LAD IFR of ostial circumflex was recommended by Dr. Fink, functionally ostial circumflex was not significant. 12. Echocardiogram April 2023-LVEF 65 to 70%, diastolic dysfunction, elevated left atrial pressure, peak gradient across aortic valve 25 mmHg. Left atrial diameter 4.7 cm RV systolic pressure 40 mmHg, left atrial volume index 37 ml per metered square Patient has multiple comorbidities as noted above. She has lost 10 pounds after her hospital stay with picture of sepsis acute on chronic kidney injury and several medications were changed. From now on, I think it is better if nephrology manages her diuretics and some of her antihypertensives such as SAMANTA inhibitors and angiotensin receptor blockers. Angiotensin receptor maria esther and spironolactone were held during hospital stay, and I defer to nephrology about resuming these agents or holding them, and I understand the rationale. Her kidney function is now back to baseline. She has chronic lower extremity edema which is multifactorial. She is not complaining of any angina pectoris. Recommendations are to see her back in summer 2023, with comprehensive profile CBC lipid profile and hemoglobin A1c prior to that next visit. Patient's accompanied her to the office today. I also completely concur with cardiology recommendations for ongoing medical therapy, based on this patient's prior and most recent coronary angiography. Surgical History Problems History of Appendectomy History of Back surgery History of Cataract surgery History of Cholecystectomy History of Complete colonoscopy History of Eye surgery History of Hernia repair History of Hysterectomy History of Knee surgery History of Neck surgery History of Percutaneous transluminal coronary angioplasty History of Sinus surgery Past Medical History Problems History of Patient new to provider Resolved Date: 26 Jun 2023 History of Pre-op testing (V72.84) (Z01.818) Current Meds Medication NameInstruction amLODIPine Besylate 5 MG Oral TabletTAKE 1 TABLET DAILY. Aspirin EC 81 MG TBECTAKE 1 TABLET DAILY. Atorvastatin Calcium 80 MG Oral TabletTAKE 1 TABLET AT BEDTIME. Clopidogrel Bisulfate 75 MG Oral TabletTAKE 1 TABLET DAILY. Cyclobenzaprine HCl - 10 MG Oral TabletTAKE 1 TABLET DAILY NEEDED. Docusate Sodium 100 MG Oral CapsuleTAKE 2 CAPSULE Bedtime Famotidine 20 MG Oral TabletTAKE 1 TABLET Bedtime Furosemide 40 MG Oral TabletTake 1 tablet twice daily Gabapentin 300 MG Oral CapsuleTAKE 1 CAPSULE TWICE DAILY. Levemir SOLNINJECT SUBCUTANEOUSLY EVERY 12 HOURS DIRECTED. Metoprolol Tartrate 25 MG Oral TabletTAKE 1 TABLET TWICE DAILY. Nitroglycerin 0.4 MG Sublingual Tablet SublingualPLACE 1 TABLET UNDER THE TONGUE EVERY 5 MINUTES FOR UP TO 3 DOSES NEEDED FOR CHEST PAIN.CALL 911 IF PAIN PERSISTS. [place] 10-325 MG TABSTAKE 1 TABLET EVERY 4 TO 6 HOURS NEEDED FOR PAIN. NovoLOG SOLNUSE DIRECTED Oxybutynin Chloride 5 MG Oral TabletTake 1 tablet twice daily Potassium Chloride Fabiana ER 20 MEQ Oral Tablet Extended ReleaseTAKE 1 TABLET DAILY. Ranolazine ER 500 MG Oral Tablet Extended Release 12 HourTAKE 1 TABLET Every twelve hours Sertraline HCl - 50 MG Oral TabletTAKE 2 TABLET Daily Vitamin B Complex Oral CapsuleTAKE 1 CAPSULE Daily Vitamin C 1000 MG Oral TabletTAKE 1 TABLET DAILY. Vitamin D3 50 MCG (2000 UT) Oral CapsuleTAKE 1 CAPSULE Daily Zolpidem Tartrate 5 MG Oral TabletTAKE 1 TABLET AT BEDTIME NEEDED. Allergies Medication SAMANTA Inhibitors defferal; Recorded By: Patricia Emery; 06/26/2023 1:18:32 PM Penicillins Recorded By: Lety Gann; 03/03/2023 2:35:46 PM NonMedication IV Contrast Dye Allergy; Anaphylaxis;; Updated By: Reba Zambrano; 03/06/2023 11:28:08 AM Social History Problems Daily caffeine consumption OCCASSIONAL Never a smoker No alcohol use No illicit drug use Review of Systems Constitutional: Denies: fever, chills, malaise Eye: Denies: discharge from eyes, eye pain, changes in vision HEENT: Denies: headache, nasal discharge, sore throat, ear pain Gastrointestinal: Denies: nausea, vomiting, diarrhea, abdominal pain Integument: Denies: rash, itching, new skin lesions Neurologic: Denies: muscular weakness, tingling, numbness, tremors, loss of balance Endocrine: Denies: polyuria, polydipsia, cold intolerance, heat intolerance Psychiatric: Denies: anxiety, depression, suicidal ideation Heme -lymph: Denies: easy bruising, petechia, lymph node enlargement, or tenderness Remaining ROS is negative, noncontributory, or as previously mentioned. Vitals Vital Signs Recorded: [id number] 12:54PM Heart Rate60, R Radial Hapedmem266, RUE, Sitting Mucqiitev47, RUE, Sitting Height5 ft 3 in [id number] lb BMI Gmqaldqyhj69.93 kg/m2 BSA Calculated2.38 Tobacco Useb) No Falls Screening (Age 18+)a) No falls within the last year Physical Exam GENERAL: Well developed, well nourished, in no acute distress. CHEST: Symmetrical and non-tender. NEURO/PSYCH: Alert and oriented x 3; appropriate behavior and responses. NECK: Supple, no JVD, no bruit. LUNGS: Clear to auscultation bilaterally, normal respiratory effort. HEART: Rate and rhythm regular with no evident murmur; no gallop appreciated. There are no rubs, clicks or heaves. EXTREMITIES: Warm with good color, no clubbing or cyanosis. 2+ pitting edema both extremities PERIPHERAL VASCULAR: Femoral and Pedal pulses present and equally palpable; 2+ throughout. Signatures Electronically signed by : Joceline Ortega MD; Jun 26 2023 1:57PM EST (Author) BASIC METABOLIC PANEL Collected: 2022 6:48 AM Status: F Source: [facility] REPOSITORY Order Comment: Diagnosis: N1 7.9, I50.32, E11.22 Comment: [id number], FELICIANO, RM102, , 06/01/23 TYPE CODE TESTS RESULT OUT OF RANGE REFERENCE UNITS LAB GLU Glucose 286 High 70-100 mg/dL Result Comment: Random Gluco se Reference Range is dependent on time and content of last meal. Glucose of more than 200 mg/dL in a nonstressed, ambulatory subject supports the diagnosis of Diabetes Mellitus. ADA recommended reference range LAB BUN Blood Urea Nitrogen 20 Normal 7-25 mg/dL LAB CREATT Creatinine 1.37 High 0.60-1.20 mg/dL LAB GFReNR Estimated GFR 42.059 LAB NA Sodium 137 Normal 136-145 mmol/L LAB K Potassium 4.5 Normal 3.5-5.1 mmol/L LAB CL Chloride 98 Normal 98-107 mmol/L LAB CO2 Carbon Dioxide 31.9 High 21.0-31.0 mmol/L LAB GAP Anion Gap 11.6 Normal 6.0-15.0 LAB CA Calcium 8.2 Low 8.6-10.3 mg/dL Performed By: #### DIFF CBC, [id number], BMP, ALB #### [facility] [address] [id number] [facility] ALBUMIN LEVEL Collected: 06/06/2023 6:48 AM Status: F Source: [facility] REPOSITORY Order Comment: Diagnosis: N1 7.9, I50.32, E11.22 Comment: FELICIANO Lea ALISHA, , 06/01/23 TYPE CODE TESTS RESULT OUT OF RANGE REFERENCE UNITS LAB ALB Albumin Level 3.2 Low 3.5-5.7 g/dL Performed By: #### DIFF CBC, [id number], BMP, ALB #### [facility] [address] [id number] [facility] VITAMIN D 25 HYDROXY TOTAL Collected: 0 06/06/2023 6:48 AM Status: F Source: [facility] REPOSITORY Order Comment: Diagnosis: N1 7.9, I50.32, E11.22 Comment: FELICIANO Lea RM102, , 06/01/23 TYPE CODE TESTS RESULT OUT OF RANGE REFERENCE UNITS LAB [id number] Vitamin D 25 Hydroxy Total 35.7 Normal 30-100 ng/mL Result Comment: VITAMIN D ST ATUS 25(OH)VITAMIN D RANGE (ng/mL) Deficient <20 Insufficient 20 to <30 Sufficient 30 to 100 Reference: Sudeep Yakley NC, Chloe VICTORIA, et al. Evaluation,treatment, and prevention of vitamin D deficiency; an Endocrine Society clinical practice guideline. JCEM. 2010; 96(7):1911-30. PERFORMED BY: [address] [address] PATHOLOGIST SALESPERSON HOSIERY XAVIER AGARWAL M.D. Performed By: #### DIFF CBC, [id number], BMP, ALB #### [facility] [address] [id number] [facility] DIFF AND CBC Collected: 06/06/2023 6:48 AM Status: F Source: [facility] REPOSITORY Order Comment: Diagnosis: N1 7.9, I50.32, E11.22 Comment: [id number], FELICIANO, RM102, , 06/01/23 TYPE CODE TESTS RESULT OUT OF RANGE REFERENCE UNITS LAB WBC White Blood Count 9.5 Normal 3.8-11.6 10*3/ uL LAB UNWBC Uncorrected WBC 9.5 Normal 3.8-11.6 10*3/uL LAB RBC Red Blood Count 3.48 Low 3.60-5.00 LAB HGB Hemoglobin 10.7 Low 11.8-15.4 g/dL LAB HCT Hematocrit 32.3 Low 34.0-46.4 % LAB MCV Mean Corpuscular Volume 92.7 Normal 80-100 fL LAB MCH Mean Corpuscular Hemoglobin 30.9 Normal 24.7-34.3 pg LAB MCHC Mean Corpuscular HGB Conc 33.3 Normal 32.0-35.0 g/dL LAB RDW Red Cell Distribution Width 13.8 Normal 11.9-15.3 % LAB PLT Platelet Count 431 Normal 150-450 10*3/uL LAB MPV Mean Platelet Volume 7.0 Normal 6.3-10.7 fL Result Comment: PERFORMED BY : [address] [address] PATHOLOGIST SALESPERSON HOSIERY XAVIER AGARWAL M.D. LAB SEG Segmented Neutrophils 69 Normal 50-70 % LAB BAND Band Neutrophils 4 Normal 0-5 % LAB LYMPH Lymphocytes 15 Low 18-42 % LAB MON Monocytes 8 Normal 2-11 % LAB EOS Eosinophils 2 Normal 1-3 % LAB BASO Basophils 0 Normal 0-2 % LAB META Metamyelocytes 2 High 0-0 % LAB ANISO Anisocytosis Slight LAB PLT EST Platelet Estimate Normal Normal LAB PLTM Platelet Morphology Normal Normal Result Comment: PERFORMED BY : [place] [address] PATHOLOGIST SALESPERSON HOSIERY XAVIER AGARWAL M.D. Performed By: #### DIFF CBC, [id number], BMP, ALB #### [facility] [address] [place] [address] [place] GLUCOSE POCT GLUCOMETERS Collected: 06/01/2023 11:19 AM Status: F Source: [facility] REPOSITORY TYPE CODE TESTS RESULT OUT OF RANGE REFERENCE UNITS LAB GLUPOC Glucose Poc Glucometers 332 mg/dL Result Comment: Random Gluco se Reference Range is dependent on time and content of last meal. Glucose of more than 200 mg/dL in a nonstressed, ambulatory subject supports the diagnosis of Diabetes Mellitus. PERFORMED BY: [place] [address] PATHOLOGIST SALESPERSON HOSIERY XAVIER AGARWAL M.D. Performed By: #### GLULS ### # Point of Care testing , BASIC METABOLIC PANEL Collected: 2022 6:35 AM Status: F Source: [facility] REPOSITORY TYPE CODE TESTS RESULT OUT OF RANGE REFERENCE UNITS LAB GLU Glucose 282 High 70-100 mg/dL Result Comment: Random Gluco se Reference Range is dependent on time and content of last meal. Glucose of more than 200 mg/dL in a nonstressed, ambulatory subject supports the diagnosis of Diabetes Mellitus. ADA recommended reference range LAB BUN Blood Urea Nitrogen 39 High 7-25 mg/dL LAB CREATT Creatinine 1.76 High 0.60-1.20 mg/dL LAB GFReNR Estimated GFR 31.139 LAB NA Sodium 127 Low 136-145 mmol/L LAB K Potassium 4.0 Normal 3.5-5.1 mmol/L LAB CL Chloride 93 Low 98-107 mmol/L LAB CO2 Carbon Dioxide 28.3 Normal 21.0-31.0 mmol/L LAB GAP Anion Gap 9.7 Normal 6.0-15.0 LAB CA Calcium 8.5 Low 8.6-10.3 mg/dL LAB CRCLPHA Creatinine Clr Calc Pharmacy 44.95 Result Comment: PERFORMED BY : [place] [id number] PATHOLOGIST SALESPERSON HOSIERY XAVIER AGARWAL M.D. Performed By: #### BMP #### [place] [id number] [facility] GLUCOSE POCT GLUCOMETERS Collected: 06/01/2023 6:25 A M Status: F Source: [facility] REPOSITORY TYPE CODE TESTS RESULT OUT OF RANGE REFERENCE UNITS LAB GLUPOC Glucose Poc Glucometers 319 mg/dL Result Comment: Random Gluco se Reference Range is dependent on time and content of last meal. Glucose of more than 200 mg/dL in a nonstressed, ambulatory subject supports the diagnosis of Diabetes Mellitus. PERFORMED BY: [place] [address] PATHOLOGIST SALESPERSON HOSIERY XAVIER AGARWAL M.D. Performed By: #### GLULS ### # Point of Care testing , GLUCOSE POCT GLUCOMETERS Collected: 05/31/2023 8:35 P M Status: F Source: [facility] REPOSITORY TYPE CODE TESTS RESULT OUT OF RANGE REFERENCE UNITS LAB GLUPOC Glucose Poc Glucometers 364 mg/dL Result Comment: Random Gluco se Reference Range is dependent on time and content of last meal. Glucose of more than 200 mg/dL in a nonstressed, ambulatory subject supports the diagnosis of Diabetes Mellitus. PERFORMED BY: [place] [address] PATHOLOGIST SALESPERSON HOSIERY XAVIER AGARWAL M.D. Performed By: #### GLULS ### # Point of Care testing , GLUCOSE POCT GLUCOMETERS Collected: 05/31/2023 3:55 P M Status: F Source: [facility] REPOSITORY TYPE CODE TESTS RESULT OUT OF RANGE REFERENCE UNITS LAB GLUPOC Glucose Poc Glucometers 311 mg/dL Result Comment: Random Gluco se Reference Range is dependent on time and content of last meal. Glucose of more than 200 mg/dL in a nonstressed, ambulatory subject supports the diagnosis of Diabetes Mellitus. PERFORMED BY: [address] [address] PATHOLOGIST SALESPERSON HOSIERY XAVIER AGARWAL M.D. Performed By: #### GLULS ### # Point of Care testing , GLUCOSE POCT GLUCOMETERS Collected: 05/31/2023 11:08 AM Status: F Source: [facility] REPOSITORY TYPE CODE TESTS RESULT OUT OF RANGE REFERENCE UNITS LAB GLUPOC Glucose Poc Glucometers 341 mg/dL Result Comment: Random Gluco se Reference Range is dependent on time and content of last meal. Glucose of more than 200 mg/dL in a nonstressed, ambulatory subject supports the diagnosis of Diabetes Mellitus. PERFORMED BY: [facility] [address] [place] [address] PATHOLOGIST SALESPERSON HOSIERY XAVIER AGARWAL M.D. Performed By: #### GLULS ### # Point of Care testing , GLUCOSE POCT GLUCOMETERS Collected: 05/31/2023 6:37 A M Status: F Source: [facility] REPOSITORY TYPE CODE TESTS RESULT OUT OF RANGE REFERENCE UNITS LAB GLUPOC Glucose Poc Glucometers 270 mg/dL Result Comment: Random Gluco se Reference Range is dependent on time and content of last meal. Glucose of more than 200 mg/dL in a nonstressed, ambulatory subject supports the diagnosis of Diabetes Mellitus. PERFORMED BY: [facility] [address] [place] [address] PATHOLOGIST SALESPERSON HOSIERY XAVIER AGARWAL M.D. Performed By: #### GLULS ### # Point of Care testing , BASIC METABOLIC PANEL Collected: 2022 6:11 AM Status: F Source: [facility] REPOSITORY TYPE CODE TESTS RESULT OUT OF RANGE REFERENCE UNITS LAB GLU Glucose 247 High 70-100 mg/dL Result Comment: Random Gluco se Reference Range is dependent on time and content of last meal. Glucose of more than 200 mg/dL in a nonstressed, ambulatory subject supports the diagnosis of Diabetes Mellitus. ADA recommended reference range LAB BUN Blood Urea Nitrogen 41 High 7-25 mg/dL LAB CREATT Creatinine 1.91 High 0.60-1.20 mg/dL LAB GFReNR Estimated GFR 28.228 LAB NA Sodium 127 Low 136-145 mmol/L LAB K Potassium 3.5 Normal 3.5-5.1 mmol/L LAB CL Chloride 93 Low 98-107 mmol/L LAB CO2 Carbon Dioxide 28.7 Normal 21.0-31.0 mmol/L LAB GAP Anion Gap 8.8 Normal 6.0-15.0 LAB CA Calcium 8.3 Low 8.6-10.3 mg/dL LAB CRCLPHA Creatinine Clr Calc Pharmacy 41.33 Result Comment: PERFORMED BY : [place] [address] PATHOLOGIST SALESPERSON HOSIERY XAVIER AGARWAL M.D. Performed By: #### BMP #### [facility] [address] [place], [place] [phone] [facility] US RENAL BI Observed: 05/30/2023 8:39 PM Status: COMPLETED Source: [facility] REPOSITORY [facility] [place] Main [place] [address] [place] [address] Ultrasound Report Signed Patient: Namrata Jack MR#: [id number] 6 : 1955 Acct:[id number] Age/Sex: 67 / F ADM Date: 05/28/23 Loc: Room: [address] [place] [address] Type: ADM IN Attending Dr: Fahad Dobson MD Ordering Provider: Sydnie Milian MD Date of Service: 05/30/23 US/US renal BI: JOY Copies to: MD Fahad Sosa MD BILATERAL RENAL AND BLADDER ULTRASOUND CLINICAL HISTORY: Acute kidney injury COMPARISON: None Estimation of renal size is approximately 10.83 cm on the right and 9.96 cm on the left. No contour deforming mass, shadowing stone or hydronephrosis. 2.3 cm cyst left kidney The urinary bladder is partially distended with a volume of 966.38 ml. No shadowing stone or focal lesion. US/US renal BI IMPRESSION: No acute findings. Impression dictated by: Chapin Maher Jr., D.O.05/30/2023 8:39 PM Dictation Location: [facility]15 Tech: Macy Mason Transcribed By: FABRICIO 05/30/232038 Dictated By: Chapin Maher Jr, DO 05/30/232038 Signed By: <Electronically signed by Chaipn Maher Jr, DO in OV> 05/30/232038 GLUCOSE POCT GLUCOMETERS Collected: 05/30/2023 4:01 P M Status: F Source: [facility] REPOSITORY TYPE CODE TESTS RESULT OUT OF RANGE REFERENCE UNITS LAB GLUPOC Glucose Poc Glucometers 280 mg/dL Result Comment: Random Gluco se Reference Range is dependent on time and content of last meal. Glucose of more than 200 mg/dL in a nonstressed, ambulatory subject supports the diagnosis of Diabetes Mellitus. PERFORMED BY: [place] [address] PATHOLOGIST SALESPERSON HOSIERY XAVIER AGARWAL M.D. Performed By: #### GLULS ### # Point of Care testing , THYROID STIMULATING HORMONE Collected: 05/30/2023 11:58 AM Status: F Source: [facility] REPOSITORY TYPE CODE TESTS RESULT OUT OF RANGE REFERENCE UNITS LAB TSH3 Thyroid Stimulating Hormone 1.35 Normal 0.45-5.33 u[iU]/mL Performed By: #### TSH3, COR T #### [place] [id number] [facility] CORTISOL Collected: 3 11:58 AM Status: F Source: [facility] REPOSITORY TYPE CODE TESTS RESULT OUT OF RANGE REFERENCE UNITS LAB LEVI Cortisol 20.9 ug/dL Result Comment: Reference ra nge: AM 6 - 24 ug/dl PM <10 ug/dl PERFORMED BY: [place] [id number] PATHOLOGIST SALESPERSON HOSIERY XAVIER AGARWAL M.D. Performed By: #### TSH3, COR T #### [place] [id number] [facility] MAGNESIUM Collected: 3 11:58 AM Status: F Source: [facility] REPOSITORY TYPE CODE TESTS RESULT OUT OF RANGE REFERENCE UNITS LAB MG Magnesium 2.1 Normal 1.9-2.7 mg/dL Result Comment: PERFORMED BY : [address] [address] PATHOLOGIST SALESPERSON HOSIERY XAVIER AGARWAL M.D. Performed By: #### MG #### [place] [id number] [facility] CREATINE KINASE Collected: 3 11:58 AM Status: F Source: [facility] REPOSITORY TYPE CODE TESTS RESULT OUT OF RANGE REFERENCE UNITS LAB CK Creatine Kinase 295 High 30-223 U/L Result Comment: PERFORMED BY : [address] [address] PATHOLOGIST SALESPERSON HOSIERY XAVIER AGARWAL M.D. Performed By: #### CK #### [address] [address] [facility] GLUCOSE POCT GLUCOMETERS Collected: 05/30/2023 11:10 AM Status: F Source: [facility] REPOSITORY TYPE CODE TESTS RESULT OUT OF RANGE REFERENCE UNITS LAB GLUPOC Glucose Poc Glucometers 228 mg/dL Result Comment: Random Gluco se Reference Range is dependent on time and content of last meal. Glucose of more than 200 mg/dL in a nonstressed, ambulatory subject supports the diagnosis of Diabetes Mellitus. PERFORMED BY: [address] [address] PATHOLOGIST SALESPERSON HOSIERY XAVIER AGARWAL M.D. Performed By: #### GLULS ### # Point of Care testing , GLUCOSE POCT GLUCOMETERS Collected: 05/30/2023 6:29 A M Status: F Source: [facility] REPOSITORY TYPE CODE TESTS RESULT OUT OF RANGE REFERENCE UNITS LAB GLUPOC Glucose Poc Glucometers 177 mg/dL Result Comment: Random Gluco se Reference Range is dependent on time and content of last meal. Glucose of more than 200 mg/dL in a nonstressed, ambulatory subject supports the diagnosis of Diabetes Mellitus. PERFORMED BY: [address] [address] PATHOLOGIST SALESPERSON HOSIERY XAVIER AGARWAL M.D. Performed By: #### GLULS ### # Point of Care testing , COMPLETE BLOOD COUNT AUTO DIFF Collected: 05/30/2023 5:43 AM Status: F Source: F [facility] REPOSITORY TYPE CODE TESTS RESULT OUT OF RANGE REFERENCE UNITS LAB WBC White Blood Count 12.3 High 3.8-11.6 10*3/uL LAB UNWBC Uncorrected WBC 12.3 High 3.8-11.6 10*3/uL LAB RBC Red Blood Count 3.53 Low 3.60-5.00 LAB HGB Hemoglobin 10.9 Low 11.8-15.4 g/dL LAB HCT Hematocrit 32.1 Low 34.0-46.4 % LAB MCV Mean Corpuscular Volume 91.1 Normal 80-100 fL LAB MCH Mean Corpuscular Hemoglobin 30.9 Normal 24.7-34.3 pg LAB MCHC Mean Corpuscular HGB Conc 33.9 Normal 32.0-35.0 g/dL LAB RDW Red Cell Distribution Width 13.7 Normal 11.9-15.3 % LAB PLT Platelet Count 202 Normal 150-450 10*3/uL LAB MPV Mean Platelet Volume 7.6 Normal 6.3-10.7 fL LAB NE% Neutrophils % (Auto) 88.1 . % LAB LY% Lymphocytes % (Auto) 5.6 . % LAB MO% Monocytes % (Auto) 3.3 . % LAB EO% Eosinophils % (Auto) 2.8 . % LAB BA% Basophils % (Auto) 0.2 . % LAB NRBC% NRBC% 0.1 Normal 0-0.5 /100{WBC } LAB NE# Neutrophils # (Auto) 10.9 High 1.8-7.7 10*3/uL LAB LY# Lymphocytes # (Auto) 0.7 Low 1.00-4.8 10*3/uL LAB MO# Monocytes # (Auto) 0.4 Normal 0.0-0.8 10*3/uL LAB EO# Eosinophils # (Auto) 0.3 Normal 0.0-0.45 10*3/uL LAB BA# Basophils # (Auto) 0.0 Normal 0.0-0.2 10*3/uL Result Comment: PERFORMED BY : [place] [address] PATHOLOGIST SALESPERSON HOSIERY XAVIER AGARWAL M.D. Performed By: #### CBC, BMP #### [address] BASIC METABOLIC PANEL Collected: 2022 5:43 AM Status: F Source: [facility] REPOSITORY TYPE CODE TESTS RESULT OUT OF RANGE REFERENCE UNITS LAB GLU Glucose 164 High 70-100 mg/dL Result Comment: Random Gluco se Reference Range is dependent on time and content of last meal. Glucose of more than 200 mg/dL in a nonstressed, ambulatory subject supports the diagnosis of Diabetes Mellitus. ADA recommended reference range LAB BUN Blood Urea Nitrogen 45 High 7-25 mg/dL LAB CREATT Creatinine 2.29 High 0.60-1.20 mg/dL LAB GFReNR Estimated GFR 22.705 LAB NA Sodium 131 Low 136-145 mmol/L LAB K Potassium 3.2 Low 3.5-5.1 mmol/L LAB CL Chloride 95 Low 98-107 mmol/L LAB CO2 Carbon Dioxide 29.6 Normal 21.0-31.0 mmol/L LAB GAP Anion Gap 9.6 Normal 6.0-15.0 LAB CA Calcium 8.4 Low 8.6-10.3 mg/dL LAB CRCLPHA Creatinine Clr Calc Pharmacy 34.34 Result Comment: PERFORMED BY : [place] [address] PATHOLOGIST SALESPERSON HOSIERY XAVIER AGARWAL M.D. Performed By: #### CBC, BMP #### [address] GLUCOSE POCT GLUCOMETERS Collected: 05/30/2023 4:40 A M Status: F Source: [facility] REPOSITORY TYPE CODE TESTS RESULT OUT OF RANGE REFERENCE UNITS LAB GLUPOC Glucose Poc Glucometers 156 mg/dL Result Comment: Random Gluco se Reference Range is dependent on time and content of last meal. Glucose of more than 200 mg/dL in a nonstressed, ambulatory subject supports the diagnosis of Diabetes Mellitus. PERFORMED BY: [place] [address] PATHOLOGIST SALESPERSON HOSIERY XAVIER AGARWAL M.D. Performed By: #### GLULS ### # Point of Care testing , GLUCOSE POCT GLUCOMETERS Collected: 05/30/2023 12:01 AM Status: F Source: [facility] REPOSITORY TYPE CODE TESTS RESULT OUT OF RANGE REFERENCE UNITS LAB GLUPOC Glucose Poc Glucometers 144 mg/dL Result Comment: Random Gluco se Reference Range is dependent on time and content of last meal. Glucose of more than 200 mg/dL in a nonstressed, ambulatory subject supports the diagnosis of Diabetes Mellitus. PERFORMED BY: [place] [id number] PATHOLOGIST SALESPERSON HOSIERY XAVIER AGARWAL M.D. Performed By: #### GLULS ### # Point of Care testing , GLUCOSE POCT GLUCOMETERS Collected: 05/29/2023 8:52 P M Status: F Source: [facility] REPOSITORY TYPE CODE TESTS RESULT OUT OF RANGE REFERENCE UNITS LAB GLUPOC Glucose Poc Glucometers 81 mg/dL Result Comment: Random Gluco se Reference Range is dependent on time and content of last meal. Glucose of more than 200 mg/dL in a nonstressed, ambulatory subject supports the diagnosis of Diabetes Mellitus. PERFORMED BY: [address] [place] [id number] PATHOLOGIST SALESPERSON HOSIERY XAVIER AGARWAL M.D. Performed By: #### GLULS ### # Point of Care testing , GLUCOSE POCT GLUCOMETERS Collected: 05/29/2023 7:06 P M Status: F Source: [facility] REPOSITORY TYPE CODE TESTS RESULT OUT OF RANGE REFERENCE UNITS LAB GLUPOC Glucose Poc Glucometers 70 mg/dL Result Comment: Random Gluco se Reference Range is dependent on time and content of last meal. Glucose of more than 200 mg/dL in a nonstressed, ambulatory subject supports the diagnosis of Diabetes Mellitus. LAB COMM1 Commemt1 Glu2: Cleaned Meter Result Comment: PERFORMED BY : [address] [place] [address] PATHOLOGIST SALESPERSON HOSIERY XAVIER AGARWAL M.D. Performed By: #### GLULS ### # Point of Care testing , GLUCOSE POCT GLUCOMETERS Collected: 05/29/2023 6:02 P M Status: F Source: [facility] REPOSITORY TYPE CODE TESTS RESULT OUT OF RANGE REFERENCE UNITS LAB GLUPOC Glucose Poc Glucometers 78 mg/dL Result Comment: Random Gluco se Reference Range is dependent on time and content of last meal. Glucose of more than 200 mg/dL in a nonstressed, ambulatory subject supports the diagnosis of Diabetes Mellitus. LAB COMM1 Commemt1 Glu2: Cleaned Meter Result Comment: PERFORMED BY : [address] [place] [address] PATHOLOGIST SALESPERSON HOSIERY XAVIER AGARWAL M.D. Performed By: #### GLULS ### # Point of Care testing , GLUCOSE POCT GLUCOMETERS Collected: 05/29/2023 5:00 P M Status: F Source: [facility] REPOSITORY TYPE CODE TESTS RESULT OUT OF RANGE REFERENCE UNITS LAB GLUPOC Glucose Poc Glucometers 122 mg/dL Result Comment: Random Gluco se Reference Range is dependent on time and content of last meal. Glucose of more than 200 mg/dL in a nonstressed, ambulatory subject supports the diagnosis of Diabetes Mellitus. LAB COMM1 Commemt1 Glu2: Cleaned Meter Result Comment: PERFORMED BY : [address] [place] [id number] PATHOLOGIST SALESPERSON HOSIERY XAVIER AGARWAL M.D. Performed By: #### GLULS ### # Point of Care testing , GLUCOSE POCT GLUCOMETERS Collected: 05/29/2023 4:48 P M Status: F Source: [facility] REPOSITORY TYPE CODE TESTS RESULT OUT OF RANGE REFERENCE UNITS LAB GLUPOC Glucose Poc Glucometers 24 Low Off Scale mg/dL Result Comment: Random Gluco se Reference Range is dependent on time and content of last meal. Glucose of more than 200 mg/dL in a nonstressed, ambulatory subject supports the diagnosis of Diabetes Mellitus. LAB COMM1 Commemt1 Result Comment: Glu2: Will R epeat Test PERFORMED BY: [address] [place] [address] PATHOLOGIST SALESPERSON HOSIERY XAVIER AGARWAL M.D. Performed By: #### GLULS ### # Point of Care testing , GLUCOSE POCT GLUCOMETERS Collected: 05/29/2023 11:26 AM Status: F Source: [facility] REPOSITORY TYPE CODE TESTS RESULT OUT OF RANGE REFERENCE UNITS LAB GLUPOC Glucose Poc Glucometers 131 mg/dL Result Comment: Random Gluco se Reference Range is dependent on time and content of last meal. Glucose of more than 200 mg/dL in a nonstressed, ambulatory subject supports the diagnosis of Diabetes Mellitus. LAB COMM1 Commemt1 Glu2: Cleaned Meter Result Comment: PERFORMED BY : [address] [place] [address] PATHOLOGIST SALESPERSON HOSIERY XAVIER AGARWAL M.D. Performed By: #### GLULS ### # Point of Care testing , GLUCOSE POCT GLUCOMETERS Collected: 05/29/2023 6:43 A M Status: F Source: [facility] REPOSITORY TYPE CODE TESTS RESULT OUT OF RANGE REFERENCE UNITS LAB GLUPOC Glucose Poc Glucometers 174 mg/dL Result Comment: Random Gluco se Reference Range is dependent on time and content of last meal. Glucose of more than 200 mg/dL in a nonstressed, ambulatory subject supports the diagnosis of Diabetes Mellitus. PERFORMED BY: [place] [id number] PATHOLOGIST SALESPERSON HOSIERY XAVIER AGARWAL M.D. Performed By: #### GLULS ### # Point of Care testing , BLOOD CULTURE Observed: 05/29/2023 6:28 AM Status: F Source: [facility] REPOSITORY NO GROWTH 5 DAYS PERFORMED BY: [place] [id number] PATHOLOGIST SALESPERSON HOSIERY XAVIER AGARWAL M.D. Performed By: #### CUBLD ### # [place] [id number] [facility] HEMOGRAM CBC WITHOUT DIFF Collected: 05/29/2023 6:28 AM Status: F Source: [facility] REPOSITORY TYPE CODE TESTS RESULT OUT OF RANGE REFERENCE UNITS LAB WBC White Blood Count 12.7 High 3.8-11.6 10*3/uL LAB RBC Red Blood Count 3.71 Normal 3.60-5.00 LAB HGB Hemoglobin 11.6 Low 11.8-15.4 g/dL LAB HCT Hematocrit 34.1 Normal 34.0-46.4 % LAB MCV Mean Corpuscular Volume 92.0 Normal 80-100 fL LAB MCH Mean Corpuscular Hemoglobin 31.2 Normal 24.7-34.3 pg LAB MCHC Mean Corpuscular HGB Conc 33.9 Normal 32.0-35.0 g/dL LAB RDW Red Cell Distribution Width 13.8 Normal 11.9-15.3 % LAB PLT Platelet Count 228 Normal 150-450 10*3/uL LAB MPV Mean Platelet Volume 7.6 Normal 6.3-10.7 fL Result Comment: PERFORMED BY : [place] [id number] PATHOLOGIST SALESPERSON HOSIERY XAVIER AGARWAL M.D. Performed By: #### CBCNO, BM P #### [facility] [address] [place], [place] [id number] [facility] BASIC METABOLIC PANEL Collected: 2022 6:28 AM Status: F Source: [facility] REPOSITORY TYPE CODE TESTS RESULT OUT OF RANGE REFERENCE UNITS LAB GLU Glucose 161 Increased 70-100 mg/dL Result Comment: Random Gluco se Reference Range is dependent on time and content of last meal. Glucose of more than 200 mg/dL in a nonstressed, ambulatory subject supports the diagnosis of Diabetes Mellitus. ADA recommended reference range LAB BUN Blood Urea Nitrogen 39 High 7-25 mg/dL LAB CREATT Creatinine 2.04 High 0.60-1.20 mg/dL LAB GFReNR Estimated GFR 26.083 LAB NA Sodium 132 Low 136-145 mmol/L LAB K Potassium 3.9 Normal 3.5-5.1 mmol/L LAB CL Chloride 95 Low 98-107 mmol/L LAB CO2 Carbon Dioxide 27.4 Normal 21.0-31.0 mmol/L LAB GAP Anion Gap 13.5 Normal 6.0-15.0 LAB CA Calcium 7.9 Low 8.6-10.3 mg/dL LAB CRCLPHA Creatinine Clr Calc Pharmacy 38.83 Result Comment: PERFORMED BY : [place] [address] PATHOLOGIST SALESPERSON HOSIERY XAVIER AGARWAL M.D. Performed By: #### CBCNO, BM P #### [facility] [address] [place], [place] [id number] [facility] BLOOD CULTURE Observed: 05/29/2023 6:21 AM Status: F Source: [facility] REPOSITORY NO GROWTH 5 DAYS PERFORMED BY: [place] [address] PATHOLOGIST SALESPERSON HOSIERY XAVIER AGARWAL M.D. Performed By: #### CUBLD ### # [place] [id number] [facility] LACTOFERRIN, STOOL WBC Observed: 023 2:00 AM Status: F Source: [facility] REPOSITORY LACTOFERRIN Negative for Fecal Lactoferrin Immune suppression may cause reduced WBC counts, leading to a false negative result. Reference range = Negative PERFORMED BY: [place] [address] PATHOLOGIST SALESPERSON HOSIERY XAVIER AGARWAL M.D. Performed By: #### LACTO SWB C, CDT, CUSTOOL #### [place] [id number] [facility] CLOSTRIDIUM DIFFICILE Collected: 05/29/2023 2:00 AM Status: F Source: [facility] REPOSITORY Order Comment: > or = to 3 l oose/watery stools in the last 24 HRS? Y Is patient on promotility agents or tube feeding? N TYPE CODE TESTS RESULT OUT OF RANGE REFERENCE UNITS LAB CDTRES Clostridium Difficile Negative Negative Result Comment: Testing perf ormed by RT-PCR PERFORMED BY: [place] [address] PATHOLOGIST SALESPERSON HOSIERY XAVIER AGARWAL M.D. Performed By: #### LACTO SWB C, CDT, CUSTOOL #### [place] [id number] [facility] STOOL CULTURE Observed: 05/29/2023 2:00 AM Status: F Source: [facility] REPOSITORY Negative for Shiga Toxin 1 Negative for Shiga Toxin 2 Pred. Gram Pos Org Predominantly Gram Positive Organisms A negative Shiga Toxin result may occur if the antigen level in the specimen is below the detection limit of the assay. Stool culture results No Salmonella, Shigella, Campy or E. coli 0157:H7 Isolated PERFORMED BY: [address] [place] [address] PATHOLOGIST SALESPERSON HOSIERY XAVIER AGARWAL M.D. Performed By: #### LACTO [place] Celaya CDT, CUSTOOL #### [place] [phone] [place] GLUCOSE POCT GLUCOMETERS Collected: 05/28/2023 4:51 P M Status: F Source: [facility] REPOSITORY TYPE CODE TESTS RESULT OUT OF RANGE REFERENCE UNITS LAB GLUPOC Glucose Poc Glucometers 82 mg/dL Result Comment: Random Gluco se Reference Range is dependent on time and content of last meal. Glucose of more than 200 mg/dL in a nonstressed, ambulatory subject supports the diagnosis of Diabetes Mellitus. LAB COMM1 Commemt1 Glu2: Cleaned Meter Result Comment: PERFORMED BY : [place] [id number] PATHOLOGIST SALESPERSON HOSIERY XAVIER AGARWAL M.D. Performed By: #### GLULS ### # Point of Care testing , GLUCOSE POCT GLUCOMETERS Collected: 05/28/2023 4:28 P M Status: F Source: [facility] REPOSITORY TYPE CODE TESTS RESULT OUT OF RANGE REFERENCE UNITS LAB GLUPOC Glucose Poc Glucometers 52 Low Off Scale mg/dL Result Comment: Random Gluco se Reference Range is dependent on time and content of last meal. Glucose of more than 200 mg/dL in a nonstressed, ambulatory subject supports the diagnosis of Diabetes Mellitus. LAB COMM1 Commemt1 Result Comment: Glu2: WILL N OTIFY /RN PERFORMED BY: [address] [address] PATHOLOGIST SALESPERSON HOSIERY XAVIER AGARWAL M.D. Performed By: #### GLULS ### # Point of Care testing , LACTIC ACID REFLEX Collected: 2:53 PM Status: F Source: [facility] REPOSITORY TYPE CODE TESTS RESULT OUT OF RANGE REFERENCE UNITS LAB LACTIC RFX Lactic Acid Reflex 1.5 0.5-2.2 mmol/L Result Comment: PERFORMED BY : [address] [address] PATHOLOGIST SALESPERSON HOSIERY XAVIER AGARWAL M.D. Performed By: #### LACTIC RF X #### [facility] [address] [place] [address] [place] TROPONIN I HIGH SENSITIVITY Collected: 05/28/2023 12: 16 PM Status: F Source: [facility] REPOSITORY TYPE CODE TESTS RESULT OUT OF RANGE REFERENCE UNITS LAB HS TROP Troponin I High Sensitivity 476.9 High Off Scale 0.0-15.0 pg/mL Result Comment: Critical Res ult : Called to and read back by: ALONSO NELSON at: 05/28/2023 13:02:12 by:SHAHEEN PERFORMED BY: [place] [address] PATHOLOGIST SALESPERSON HOSIERY XAVIER AGARWAL M.D. Performed By: #### HS TROP # ### [place] [id number] [facility] GLUCOSE POCT GLUCOMETERS Collected: 05/28/2023 11:44 AM Status: F Source: [facility] REPOSITORY TYPE CODE TESTS RESULT OUT OF RANGE REFERENCE UNITS LAB GLUPOC Glucose Poc Glucometers 229 mg/dL Result Comment: Random Gluco se Reference Range is dependent on time and content of last meal. Glucose of more than 200 mg/dL in a nonstressed, ambulatory subject supports the diagnosis of Diabetes Mellitus. LAB COMM1 Commemt1 Glu2: Cleaned Meter Result Comment: PERFORMED BY : [place] [address] PATHOLOGIST SALESPERSON HOSIERY XAVIER AGARWAL M.D. Performed By: #### GLULS ### # Point of Care testing , XR SHOULDER LT MIN 2V* Observed: 023 10:46 AM Status: COMPLETED Source: [facility] REPOSITORY [facility] [place] [address] XRay Report Signed Patient: Namrata Jack MR#: [id number] 6 : 1955 Acct:[id number] Age/Sex: 67 / F ADM Date: 05/28/23 Loc: Room: [address] [place] [address] Type: ADM IN Attending Dr: Rohit Francis MD Copies to: MD Robyn Harrison, Ordering Provider: Robyn Robin DO Date of Service: 05/27/23 XR/XR chest 1V: Nausea/Vomiting/Diarrhea ([id number]) XR/XR shoulder LT min 2V*: Nausea/Vomiting/Diarrhea Single view chest: , Left shoulder 3 views. CLINICAL HISTORY: Nausea vomiting diarrhea since yesterday with left-sided chest pain and posterior left shoulder pain. Fever. COMPARISON: None FINDINGS: Chest: Cardiomegaly with vascular congestion. No consolidation pneumothorax pleural effusion or free air. Left shoulder: Evidence of calcific tendinitis. No acute bony process is seen. Mild degenerative changes of the AC and glenohumeral joints. XR/XR chest 1V IMPRESSION: CHEST DEMONSTRATES CHF FINDINGS FOR ACUTE PROCESS. LEFT SHOULDER DEMONSTRATES DEGENERATIVE CHANGE WITH EVIDENCE OF CALCIFIC TENDINITIS. NO ACUTE BONY PROCESS. Impression dictated by: Chapin Maher Jr., D.O.05/28/2023 10:47 AM Dictation Location: [employer] Transcribed By: [facility] 05/28/23 1047 Dictated By: Chapin Maher Jr, DO 05/28/23 1046 Signed By: <Electronically signed by Chapin Maher Jr, DO in OV> 05/28/23 104 ECG 12 LEAD ECG Observed: 05/28/2023 7:01 AM Status: COMPLETED Source: [facility] REPOSITORY [facility] [place] [address] Electrocardiograph Report Signed Patient: Namrata Jack MR#: [id number] 6 : 1955 Acct:[id number] Age/Sex: 67 / F ADM Date: 05/28/23 Loc: Room: [address] [place] [address] Type: ADM IN Attending Dr: Fahad Dobson MD Ordering Provider: Paige Aburto MD Date of Service: 05/28/23 ECG/ECG 12 lead ECG: trop spike Copies to: Test Reason : Blood Pressure : / mmHG Vent. Rate : 094 BPM Atrial Rate : 094 BPM P-R Int : 192 ms QRS Dur : 082 ms QT Int : 366 ms P-R-T Axes : 007 -17 060 degrees QTc Int : 457 ms Normal sinus rhythm Minimal voltage criteria for LVH, may be normal variant Borderline ECG When compared with ECG of 27-MAY-2023 22:27, Minimal criteria for Anterior infarct are no longer present Confirmed by GERALD WELCH [facility] ([id number]) on 05/29/2023 2:24:39 PM Referred By: Electronically Signed By:ROBYN ROGEL MD [facility] Transcribed By: MUS Signed By Jermaine Rogel MD 05/29/23 1424 GLUCOSE POCT GLUCOMETERS Collected: 05/28/2023 6:41 A M Status: F Source: [facility] REPOSITORY TYPE CODE TESTS RESULT OUT OF RANGE REFERENCE UNITS LAB GLUPOC Glucose Poc Glucometers 263 mg/dL Result Comment: Random Gluco se Reference Range is dependent on time and content of last meal. Glucose of more than 200 mg/dL in a nonstressed, ambulatory subject supports the diagnosis of Diabetes Mellitus. LAB COMM1 Commemt1 Glu2: Cleaned Meter Result Comment: PERFORMED BY : [address] [place] [address] PATHOLOGIST SALESPERSON HOSIERY XAVIER AGARWAL M.D. Performed By: #### GLULS ### # Point of Care testing , COMPLETE BLOOD COUNT AUTO DIFF Collected: 05/28/2023 5:51 AM Status: F Source: F [facility] REPOSITORY TYPE CODE TESTS RESULT OUT OF RANGE REFERENCE UNITS LAB WBC White Blood Count 7.9 Normal 3.8-11.6 10*3/uL LAB UNWBC Uncorrected WBC 7.9 Normal 3.8-11.6 10*3/uL LAB RBC Red Blood Count 4.23 Normal 3.60-5.00 LAB HGB Hemoglobin 13.2 Normal 11.8-15.4 g/dL LAB HCT Hematocrit 39.5 Normal 34.0-46.4 % LAB MCV Mean Corpuscular Volume 93.4 Normal 80-100 fL LAB MCH Mean Corpuscular Hemoglobin 31.2 Normal 24.7-34.3 pg LAB MCHC Mean Corpuscular HGB Conc 33.4 Normal 32.0-35.0 g/dL LAB RDW Red Cell Distribution Width 13.7 Normal 11.9-15.3 % LAB PLT Platelet Count 222 Normal 150-450 10*3/uL LAB MPV Mean Platelet Volume 7.3 Normal 6.3-10.7 fL LAB NE% Neutrophils % (Auto) 89.6 . % LAB LY% Lymphocytes % (Auto) 7.6 . % LAB MO% Monocytes % (Auto) 2.5 . % LAB EO% Eosinophils % (Auto) 0.1 . % LAB BA% Basophils % (Auto) 0.2 . % LAB NRBC% NRBC% 0.1 Normal 0-0.5 /100{WBC } LAB NE# Neutrophils # (Auto) 7.1 Normal 1.8-7.7 10*3/uL LAB LY# Lymphocytes # (Auto) 0.6 Low 1.00-4.8 10*3/uL LAB MO# Monocytes # (Auto) 0.2 Normal 0.0-0.8 10*3/uL LAB EO# Eosinophils # (Auto) 0.0 Normal 0.0-0.45 10*3/uL LAB BA# Basophils # (Auto) 0.0 Normal 0.0-0.2 10*3/uL Result Comment: PERFORMED BY : [place] [address] PATHOLOGIST SALESPERSON HOSIERY XAVIER AGARWAL M.D. Performed By: #### CBC, CMP #### [address] COMPREHENSIVE METABOLIC PANEL Collected: 05/28/2023 5 :51 AM Status: F Source: [facility] REPOSITORY TYPE CODE TESTS RESULT OUT OF RANGE REFERENCE UNITS LAB GLU Glucose 296 High 70-100 mg/dL Result Comment: Random Gluco se Reference Range is dependent on time and content of last meal. Glucose of more than 200 mg/dL in a nonstressed, ambulatory subject supports the diagnosis of Diabetes Mellitus. ADA recommended reference range LAB BUN Blood Urea Nitrogen 29 High 7-25 mg/d L LAB CREATT Creatinine 1.76 High 0.60-1.20 mg/dL LAB GFReNR Estimated GFR 31.139 LAB NA Sodium 131 Low 136-145 mmol/L LAB K Potassium 4.1 Normal 3.5-5.1 mmol/L LAB CL Chloride 95 Low 98-107 mmol/L LAB CO2 Carbon Dioxide 24.5 Normal 21.0-31.0 mmol/L LAB GAP Anion Gap 15.6 High 6.0-15.0 LAB CA Calcium 8.8 Normal 8.6-10.3 mg/dL LAB TP Total Protein 6.8 Normal 6.4-8.9 g/dL LAB ALB Albumin Level 3.9 Normal 3.5-5.7 g/dL LAB GLOB Globulin 2.9 g/dL LAB AGRATIO Albumin/Globulin Ratio 1.3 LAB BILIT Bilirubin,Total 0.7 Normal 0.3-1.0 mg/dL LAB AST Aspartate Amino Transferase 22 Normal 13-39 U/L LAB ALT Alanine Aminotransferase 12 Normal 7-52 U/L LAB ALP Alkaline Phosphatase 51 Normal 34-104 U/L LAB CRCLPHA Creatinine Clr C alc Pharmacy 44.45 Result Comment: PERFORMED BY : [place] [address] PATHOLOGIST SALESPERSON HOSIERY XAVIER AGARWAL M.D. Performed By: #### CBC, CMP #### [facility] [address] [place], [place] [id number] [facility] LACTIC ACID Collected: 5:51 AM Status: F Source: [facility] REPOSITORY TYPE CODE TESTS RESULT OUT OF RANGE REFERENCE UNITS LAB LACTIC Lactic Acid 3.7 High Off Scale 0.5-2.2 mmol/L Result Comment: Critical Res ult : Called to and read back by: ARIES BROOKS at: 05/28/2023 06:58:26 by:SHAHEEN PERFORMED BY: [place] [address] PATHOLOGIST SALESPERSON HOSIERY XAVIER AGARWAL M.D. Performed By: #### LACTIC ## ## [facility] [address] [place], [place] [id number] [place] TROPONIN I HIGH SENSITIVITY Collected: 05/28/2023 5:5 1 AM Status: F Source: [facility] REPOSITORY TYPE CODE TESTS RESULT OUT OF RANGE REFERENCE UNITS LAB HS TROP Troponin I High Sensitivity 574.2 High Off Scale 0.0-15.0 pg/mL Result Comment: Critical Res ult : Called to and read back by: ARIES BROOKS at: 05/28/2023 06:55:26 by:SHAHEEN PERFORMED BY: [place] [address] PATHOLOGIST SALESPERSON HOSIERY XAVIER AGARWAL M.D. Performed By: #### HS TROP # ### [facility] [address] [place] [address] DIPSTICK AND MICROSCOPIC Collected: 12:42 AM Status: F Source: [facility] REPOSITORY Order Comment: Name Collecti on Type:: Straight Catheter TYPE CODE TESTS RESULT OUT OF RANGE REFERENCE UNITS LAB UCOL Color,Urine Yellow Yellow LAB UAPP Appearance,Uri ne Clear Clear LAB USG Specificy [place],Urine 1.017 Normal 1.001-1.030 LAB UPH pH,Urine 5.5 Normal 5.0-9.0 LAB ULE Leukocyte Esterase,Urine 1+ High Negative LAB UNIT Nitrite,Urine Negative Negative LAB UPRO Protein,Urine 30 High Negative mg/dL LAB UGL Glucose,Urine (UA) 500 High Normal mg/dL LAB UKET Ketones,Urine Trace High Negative LAB UURO Urobilinogen,U rine Normal Normal LAB UBIL Bilirubin,Urin e Negative Negative LAB UBLD Occult Blood,Urine Negative Negative Result Comment: PERFORMED BY : [place] [address] PATHOLOGIST SALESPERSON HOSIERY XAVIER AGARWAL M.D. LAB URBC RBC,Urine 0-1 0-4 LAB UWBC WBC,Urine 5-9 High 0-4 LAB USQEPI Squamous Epithelial Cell,Urine 1-2 0-2 LAB UBACT Bacteria,Urine None Seen None Seen LAB UHYALC Hyaline Casts,Urine 0-8 0-8 Result Comment: PERFORMED BY : [place] [address] PATHOLOGIST SALESPERSON HOSIERY XAVIER AGARWAL M.D. Performed By: #### CUU, SALLIE NUAPLUS #### [facility] [address] [place] [address] URINE CULTURE Observed: 05/28/2023 12:42 AM Status: F Source: [facility] REPOSITORY No Growth 2 Days PERFORMED BY: [place] [address] PATHOLOGIST SALESPERSON HOSIERY XAVIER AGARWAL M.D. Performed By: #### CUU, SALLIE NUAPLUS #### [place] [id number] [facility] TROPONIN I HIGH SENSITIVITY Collected: 05/28/2023 12: 10 AM Status: F Source: [facility] REPOSITORY TYPE CODE TESTS RESULT OUT OF RANGE REFERENCE UNITS LAB HS TROP Troponin I High Sensitivity 382.2 High Off Scale 0.0-15.0 pg/mL Result Comment: Critical Res ult : Called to and read back by: CARMINA THURSTON at: 05/28/2023 00:55:39 by:[id number] PERFORMED BY: [place] [address] PATHOLOGIST SALESPERSON HOSIERY XAVIER AGARWAL M.D. Performed By: #### HS TROP # ### [place] [id number] [facility] BLOOD CULTURE Observed: 05/27/2023 11:20 PM Status: F Source: [facility] REPOSITORY Results called at 1153 on 05/28/23 Gram Stain Gram Positive Cocci in Chains ORGANISM: Strep dysgalactiae (O:STRDYS) Aerobic Aida Charge (Strep) SUSCEPTIBILITY ORGANISM: O:STRDYS ANTIBIOTIC INTERPRETATION AIDA Ampicillin S <0.06 Cefepime S <0.25 Ceftriaxone S <0.25 Erythromycin S <0.06 Levofloxacin S 0.5 Penicillin S <0.03 Vancomycin S 0.5 Results called at 1153 on 05/28/23 Staphylococcus aureus DNA [Presence] by BRANDY with non-probe detection in Positive blood culture Not detected Bacteroides fragilis DNA [Presence] by BRANDY with non-probe detection in Positive blood culture Not detected Maria R auris DNA [Presence] by BRANDY with non-probe detection in Positive blood culture Not detected Maria R albicans DNA [Presence] by BRANDY with non-probe detection in Positive blood culture Not detected Acinetobacter calcoaceticus-baumannii complex DNA [Presence] by BRANDY with non- probe detection in Positive blood culture Not detected Cryptococcus neoformans or gattii 9002 Not detected Cephalosporin resistance blaCTX-M gene [Presence] by Molecular method Not Applicable Escherichia coli Not detected Enterobacterales DNA [Presence] by BRANDY with non-probe detection in Positive blood culture Not detected Enterobacter cloacae complex DNA [Presence] by BRANDY with non-probe detection in Positive blood culture Not detected Staphylococcus epidermidis DNA [Presence] by BRANDY with non-probe detection in Positive blood culture Not detected Enterococcus faecalis DNA [Presence] by BRANDY with non-probe detection in Positive blood culture Not detected Enterococcus faecium DNA [Presence] by BRANDY with non-probe detection in Positive blood culture Not detected Maria R glabrata DNA [Presence] by BRANDY with non-probe detection in Positive blood culture Not detected Haemophilus influenzae (reported as H flu) Not detected Carbapenem resistance blaIMP gene [Presence] by Molecular method Not Applicable Klebsiella aerogenes DNA [Presence] by BRANDY with non-probe detection in Positive blood culture Not detected Klebsiella pneumoniae+Klebsiella variicola+Klebsiella quasipneumoniae DNA [Presence] by BRANDY with non-probe detection in Positive blood culture Not detected Klebsiella oxytoca DNA [Presence] by BRANDY with non-probe detection in Positive blood culture Not detected Carbapenem resistance blaKPC gene [Presence] by Molecular method Not Applicable Maria R krusei DNA [Presence] by BRANDY with non-probe detection in Positive blood culture Not detected Listeria monocytogenes (reported as listeriosis) Not detected Staphylococcus lugdunensis DNA [Presence] by BRANDY with non-probe detection in Positive blood culture Not detected Methicillin resistance mecA+mecC genes+SCCmec+OrfX junction [Presence] by Molecular method Not Applicable Carbapenem resistance blaNDM gene [Presence] by Molecular method Not Applicable Neisseria meningitidis - reported as meningococcal disease Not detected Carbapenem resistance marissa OXA-48-like gene [Presence] by Molecular method Not Applicable Maria R parapsilosis DNA [Presence] by BRANDY with non-probe detection in Positive blood culture Not detected Streptococcus pneumoniae - reported at [facility] Not detected Proteus sp DNA [Presence] by BRANDY with non-probe detection in Positive blood culture Not detected Pseudomonas aeruginosa DNA [Presence] by BRANDY with non-probe detection in Positive blood culture Not detected Salmonella sp DNA [Presence] by BRANDY with non-probe detection in Positive blood culture Not detected Serratia marcescens DNA [Presence] by BRANDY with non-probe detection in Positive blood culture Not detected Staphylococcus sp DNA [Presence] by BRANDY with non-probe detection in Positive blood culture Not detected Stenotrophomonas maltophilia DNA [Presence] by BRANDY with non-probe detection in Positive blood culture Not detected Group A (Streptococcus pyogenes) [id number] Not detected Group B Strep (Streptococcus agalactiae) Not detected Streptococcus sp DNA [Presence] by BRANDY with non-probe detection in Positive blood culture Detected Maria R tropicalis DNA [Presence] by BRANDY with non-probe detection in Positive blood culture Not detected Vancomycin resistance Abdiel + vanB genes [Presence] by Molecular method Not Applicable Carbapenem resistance blaVIM gene [Presence] by Molecular method Not Applicable Colistin resistance mcr-1 gene [Presence] by Molecular method Not Applicable Methicillin resistance mecA+mecC genes [Presence] in Isolate or Specimen by Molecular genetics method Not Applicable RESIS. GENE COMMENT 1 Antimicrobial resistance can occur via multiple RESIS. GENE COMMENT 2 mechanisms. A Not Detected result for antimicrobial RESIS. GENE COMMENT 3 resistance gene(s) does not indicate antimicrobial RESIS. GENE COMMENT 4 susceptibility. S = SUSCEPTIBLE I = INTERMEDIATE R = RESISTANT BLANK = DATA NOT AVAILABLE, OR DRUG NOT ADVISABLE OR TESTED R* = RESISTANCE DUE TO EXTENDED SPECTRUM BETA-LACTAMASES ESBL = EXTENDED SPECTRUM BETA-LACTAMASE TFG = THYMIDINE-DEPENDENT STRAIN ARTHUR = BETA-LACTAMASE POSITIVE IB = INDUCIBLE BETA-LACTAMASE. APPEARS IN PLACE OF 'S' WITH SPECIES KNOWN TO POSSESS INDUCIBLE BETA-LACTAMASES. POTENTIALLY THEY MAY BECOME RESISTANT TO ALL B-LACTAM DRUGS. PERFORMED BY: [place] [address] PATHOLOGIST SALESPERSON HOSIERY XAVIER AGARWAL M.D. Performed By: #### CUBLD ### # [address] GLUCOSE POCT GLUCOMETERS Collected: 05/27/2023 10:56 PM Status: F Source: [facility] REPOSITORY TYPE CODE TESTS RESULT OUT OF RANGE REFERENCE UNITS LAB GLUPOC Glucose Poc Glucometers 397 mg/dL Result Comment: Random Gluco se Reference Range is dependent on time and content of last meal. Glucose of more than 200 mg/dL in a nonstressed, ambulatory subject supports the diagnosis of Diabetes Mellitus. PERFORMED BY: [place] [address] PATHOLOGIST SALESPERSON HOSIERY XAVIER AGARWAL M.D. Performed By: #### GLULS ### # Point of Care testing , MAGNESIUM Collected: 10:42 PM Status: F Source: [facility] REPOSITORY TYPE CODE TESTS RESULT OUT OF RANGE REFERENCE UNITS LAB MG Magnesium 1.4 Low 1.9-2.7 mg/dL Result Comment: PERFORMED BY : [place] [address] PATHOLOGIST SALESPERSON HOSIERY XAVIER AGARWAL M.D. Performed By: #### MG #### [address] BLOOD CULTURE Observed: 05/27/2023 10:42 PM Status: F Source: [facility] REPOSITORY NO GROWTH 5 DAYS PERFORMED BY: [place] [address] PATHOLOGIST SALESPERSON HOSIERY XAVIER AGARWAL M.D. Performed By: #### CUBLD ### # [address] LACTIC ACID Collected: 3 10:42 PM Status: F Source: [facility] REPOSITORY TYPE CODE TESTS RESULT OUT OF RANGE REFERENCE UNITS LAB LACTIC Lactic Acid 5.8 High Off Scale 0.5-2.2 mmol/L Result Comment: Critical Res ult : Called to and read back by: BHUPINDER COLEMAN at: 05/27/2023 23:12:04 by:[id number] PERFORMED BY: [place] [address] PATHOLOGIST SALESPERSON HOSIERY XAVIER AGARWAL M.D. Performed By: #### SCAN CBC, HS TROP, LACTIC, CK, CMP #### [facility] [address] [place] [address] COMPREHENSIVE METABOLIC PANEL Collected: 05/27/2023 1 0:42 PM Status: F Source: [facility] REPOSITORY TYPE CODE TESTS RESULT OUT OF RANGE REFERENCE UNITS LAB GLU Glucose 376 High 70-100 mg/dL Result Comment: Random Gluco se Reference Range is dependent on time and content of last meal. Glucose of more than 200 mg/dL in a nonstressed, ambulatory subject supports the diagnosis of Diabetes Mellitus. ADA recommended reference range LAB BUN Blood Urea Nitrogen 31 High 7-25 mg/d L LAB CREATT Creatinine 1.83 High 0.60-1.20 mg/dL LAB GFReNR Estimated GFR 29.715 LAB NA Sodium 131 Low 136-145 mmol/L LAB K Potassium 4.2 Normal 3.5-5.1 mmol/L LAB CL Chloride 93 Low 98-107 mmol/L LAB CO2 Carbon Dioxide 22.2 Normal 21.0-31.0 mmol/L LAB GAP Anion Gap 20.0 High 6.0-15.0 LAB CA Calcium 9.1 Normal 8.6-10.3 mg/dL LAB TP Total Protein 7.1 Normal 6.4-8.9 g/dL LAB ALB Albumin Level 3.8 Normal 3.5-5.7 g/dL LAB GLOB Globulin 3.3 g/dL LAB AGRATIO Albumin/Globulin Ratio 1.2 LAB BILIT Bilirubin,Total 0.8 Normal 0.3-1.0 mg/dL LAB AST Aspartate Amino Transferase 17 Normal 13-39 U/L LAB ALT Alanine Aminotransferase 13 Normal 7-52 U/L LAB ALP Alkaline Phosphatase 54 Normal 34-104 U/L LAB CRCLPHA Creatinine Clr C alc Pharmacy 42.25 Result Comment: PERFORMED BY : [place] [address] PATHOLOGIST SALESPERSON HOSIERY XAVIER AGARWAL M.D. Performed By: #### SCAN CBC, HS TROP, LACTIC, CK, CMP #### [facility] [address] [place] [address] SCAN AND CBC Collected: 3 10:42 PM Status: F Source: [facility] REPOSITORY TYPE CODE TESTS RESULT OUT OF RANGE REFERENCE UNITS LAB WBC White Blood Count 11.7 High 3.8-11.6 10*3/uL LAB UNWBC Uncorrected WBC 11.7 High 3.8-11.6 10*3/uL LAB RBC Red Blood Count 4.12 Normal 3.60-5.00 LAB HGB Hemoglobin 12.8 Normal 11.8-15.4 g/dL LAB HCT Hematocrit 38.5 Normal 34.0-46.4 % LAB MCV Mean Corpuscular Volume 93.4 Normal 80-100 fL LAB MCH Mean Corpuscular Hemoglobin 31.0 Normal 24.7-34.3 pg LAB MCHC Mean Corpuscular HGB Conc 33.2 Normal 32.0-35.0 g/dL LAB RDW Red Cell Distribution Width 13.5 Normal 11.9-15.3 % LAB PLT Platelet Count 264 Normal 150-450 10*3/uL LAB MPV Mean Platelet Volume 7.5 Normal 6.3-10.7 fL LAB MDW Monocyte Distribution Width 40.58 High 0.00-20.00 % Result Comment: The predicti ve value of MDW for identifying sepsis in patients with hematological abnormalities has not been established LAB NE% Neutrophils % (Auto) 95.2 . % LAB LY% Lymphocytes % (Auto) 3.1 . % LAB MO% Monocytes % (Auto) 1.4 . % LAB EO% Eosinophils % (Auto) 0.0 . % LAB BA% Basophils % (Auto) 0.3 . % LAB NRBC% NRBC% 0.0 Normal 0-0.5 /100{WBC } LAB NE# Neutrophils # (Auto) 11.2 High 1.8-7.7 10*3/uL LAB LY# Lymphocytes # (Auto) 0.4 Low 1.00-4.8 10*3/uL LAB MO# Monocytes # (Auto) 0.2 Normal 0.0-0.8 10*3/uL LAB EO# Eosinophils # (Auto) 0.0 Normal 0.0-0.45 10*3/uL LAB BA# Basophils # (Auto) 0.0 Normal 0.0-0.2 10*3/uL LAB RM RBC Morphology Normal Normal LAB PLT EST Platelet Estimate Normal Normal LAB PLTM Platelet Morphology Normal Normal Result Comment: PERFORMED BY : [place] [address] PATHOLOGIST SALESPERSON HOSIERY XAVIER AGARWAL M.D. Performed By: #### SCAN CBC, HS TROP, LACTIC, CK, CMP #### [facility] [address] [place], [place] [id number] [place] CREATINE KINASE Collected: 10:42 PM Status: F Source: [facility] REPOSITORY TYPE CODE TESTS RESULT OUT OF RANGE REFERENCE UNITS LAB CK Creatine Kinase 137 Normal 30-223 U/L Performed By: #### SCAN CBC, HS TROP, LACTIC, CK, CMP #### [facility] [address] [place] [address] [facility] TROPONIN I HIGH SENSITIVITY Collected: 05/27/2023 10: 42 PM Status: F Source: [facility] REPOSITORY TYPE CODE TESTS RESULT OUT OF RANGE REFERENCE UNITS LAB HS TROP Troponin I High Sensitivity 302.1 High Off Scale 0.0-15.0 pg/mL Result Comment: Critical Res ult : Called to and read back by: LUDIN SCHAEFFER at: 05/27/2023 23:39:53 by:[id number] PERFORMED BY: [place] [address] PATHOLOGIST SALESPERSON HOSIERY XAVIER AGARWAL M.D. Performed By: #### SCAN CBC, HS TROP, LACTIC, CK, CMP #### [facility] [address] [place] [address] ECG 12 LEAD ECG Observed: 05/27/2023 10:27 PM Status: COMPLETED Source: [facility] REPOSITORY [facility] [place] [address] [place] [address] Electrocardiograph Report Signed Patient: Namrata Jack MR#: [id number] 6 : 1955 Acct:[id number] Age/Sex: 67 / F ADM Date: 05/28/23 Loc: Room: [address] [place] [address] Type: ADM IN Attending Dr: Paige Aburto MD Ordering Provider: Robyn Robin DO Date of Service: 05/27/23 ECG/ECG 12 lead ECG: Nausea/Vomiting/Diarrhea Copies to: Test Reason : Blood Pressure : 144/065 mmHG Vent. Rate : 093 BPM Atrial Rate : 093 BPM P-R Int : 188 ms QRS Dur : 082 ms QT Int : 388 ms P-R-T Axes : -20 -10 048 degrees QTc Int : 482 ms Normal sinus rhythm Low voltage QRS Cannot rule out Anterior infarct , age undetermined Abnormal ECG When compared with ECG of 10-MAY-2023 03:57, Minimal criteria for Anterior infarct are now present Confirmed by ROBYN ROBIN DO ([id number]) on 05/28/2023 5:24:20 AM Referred By: Electronically Signed By:ROBYN ROBIN DO Transcribed By: MUS Signed By Robyn Robin DO 0524 BASIC METABOLIC PANEL Collected: 2022 10:10 AM Status: F Source: [facility] REPOSITORY TYPE CODE TESTS RESULT OUT OF RANGE REFERENCE UNITS LAB GLU Glucose 315 High 70-100 mg/dL Result Comment: Random Gluco se Reference Range is dependent on time and content of last meal. Glucose of more than 200 mg/dL in a nonstressed, ambulatory subject supports the diagnosis of Diabetes Mellitus. ADA recommended reference range LAB BUN Blood Urea Nitrogen 45 High 7-25 mg/dL LAB CREATT Creatinine 1.71 High 0.60-1.20 mg/dL LAB GFReNR Estimated GFR 32.235 LAB NA Sodium 137 Normal 136-145 mmol/L LAB K Potassium 4.0 Normal 3.5-5.1 mmol/L LAB CL Chloride 95 Low 98-107 mmol/L LAB CO2 Carbon Dioxide 33.0 High 21.0-31.0 mmol/L LAB GAP Anion Gap 13.0 Normal 6.0-15.0 LAB CA Calcium 9.3 Normal 8.6-10.3 mg/dL Result Comment: PERFORMED BY : [place] [address] PATHOLOGIST SALESPERSON HOSIERY XAVIER AGARWAL M.D. Performed By: #### BMP #### [address] XR CHEST 1V PORTABLE Observed: 3 9:38 AM Status: COMPLETED Source: [facility] REPOSITORY [facility] [place] [address] XRay Report Signed Patient: Namrtaa Jack MR#: [id number] 6 : 1955 Acct:[id number] Age/Sex: 67 / F ADM Date: 05/10/23 Loc: ER Room: Type: [facility] ER Attending Dr: Copies to: Robyn Robin DO Ordering Provider: Robyn Robin DO Date of Service: 05/10/23 XR/XR chest 1V portable: Weakness Plain film chest single view HISTORY: Generalized weakness. Dizziness. COMPARISON: 05/04/23 FINDINGS: SUPPORT DEVICES: None POSTSURGICAL CHANGES: Cervical spine fixation hardware redemonstrated. HEART: Continued cardiomegaly. PULMONARY MARY: Within normal limits MEDIASTINUM: Unremarkable LUNGS AND PLEURA: Similar interstitial prominence. No developing pleural effusion or pneumothorax. BONY STRUCTURES: Intact ADDITIONAL FINDINGS None XR/XR chest 1V portable IMPRESSION: Similar interstitial prominence. Impression dictated by: Harmeet Jackson M.D.05/10/2023 9:39 AM Dictation Location: [place] [address] Transcribed By: [facility] 05/10/23938 Dictated By: Harmeet Jackson DO 05/10/2338 Signed By: <Electronically signed by Harmeet Jackson DO in OV> 05/10/23938 DIPSTICK AND MICROSCOPIC Collected: 09/2023 4:55 AM Status: F Source: [facility] REPOSITORY Order Comment: Name Collecti on Type:: Straight Catheter TYPE CODE TESTS RESULT OUT OF RANGE REFERENCE UNITS LAB UCOL Color,Urine Yellow Yellow LAB UAPP Appearance,Uri ne Clear Clear LAB USG Specificy [place],Urine 1.015 Normal 1.001-1.030 LAB UPH pH,Urine 6.5 Normal 5.0-9.0 LAB ULE Leukocyte Esterase,Urine 4+ High Negative LAB UNIT Nitrite,Urine Negative Negative LAB UPRO Protein,Urine Negative Negative LAB UGL Glucose,Urine (UA) Normal Normal LAB UKET Ketones,Urine Negative Negative LAB UURO Urobilinogen,U rine Normal Normal LAB UBIL Bilirubin,Urin e Negative Negative LAB UBLD Occult Blood,Urine Negative Negative Result Comment: PERFORMED BY : [address] [address] PATHOLOGIST SALESPERSON HOSIERY XAVIER AGARWAL M.D. LAB URBC RBC,Urine 5-9 High 0-4 LAB UWBC WBC,Urine 10-19 High 0-4 LAB USQEPI Squamous Epithelial Cell,Urine 3-4 High 0-2 LAB UBACT Bacteria,Urine None Seen None Seen LAB UHYALC Hyaline Casts,Urine None Seen 0-8 Result Comment: PERFORMED BY : [address] [address] PATHOLOGIST SALESPERSON HOSIERY XAVIER AGARWAL M.D. Performed By: #### SALLIE ROSAS #### [address] [address] [facility] URINE CULTURE Observed: 05/10/2023 4:55 AM Status: F Source: [facility] REPOSITORY Urine Culture Results 75,000 colonies/ml Mixed Bacterial Skin Contaminants 2 Days PERFORMED BY: [facility] [address] [place] [address] PATHOLOGIST SALESPERSON HOSIERY XAVIER AGARWAL M.D. Performed By: #### SALLIE ROSAS #### [facility] [address] [place] [id number] [facility] COMPLETE BLOOD COUNT AUTO DIFF Collected: 05/10/2023 4:20 AM Status: F Source: F [facility] REPOSITORY TYPE CODE TESTS RESULT OUT OF RANGE REFERENCE UNITS LAB WBC White Blood Count 9.4 Normal 3.8-11.6 10*3/uL LAB UNWBC Uncorrected WBC 9.4 Normal 3.8-11.6 10*3/uL LAB RBC Red Blood Count 4.08 Normal 3.60-5.00 LAB HGB Hemoglobin 12.6 Normal 11.8-15.4 g/dL LAB HCT Hematocrit 37.6 Normal 34.0-46.4 % LAB MCV Mean Corpuscular Volume 92.2 Normal 80-100 fL LAB MCH Mean Corpuscular Hemoglobin 30.9 Normal 24.7-34.3 pg LAB MCHC Mean Corpuscular HGB Conc 33.6 Normal 32.0-35.0 g/dL LAB RDW Red Cell Distribution Width 13.6 Normal 11.9-15.3 % LAB PLT Platelet Count 283 Normal 150-450 10*3/uL LAB MPV Mean Platelet Volume 7.4 Normal 6.3-10.7 fL LAB MDW Monocyte Distribution Width 21.20 High 0.00-20.00 % Result Comment: For adults i n ED, MDW > 20.0 may be associated with a higher risk of sepsis during the first 12 hrs of hospital admission LAB NE% Neutrophils % (Auto) 72.7 . % LAB LY% Lymphocytes % (Auto) 15.2 . % LAB MO% Monocytes % (Auto) 8.2 . % LAB EO% Eosinophils % (Auto) 3.0 . % LAB BA% Basophils % (Auto) 0.9 . % LAB NRBC% NRBC% 0.2 Normal 0-0.5 /100{WBC } LAB NE# Neutrophils # (Auto) 6.9 Normal 1.8-7.7 10*3/uL LAB LY# Lymphocytes # (Auto) 1.4 Normal 1.00-4.8 10*3/uL LAB MO# Monocytes # (Auto) 0.8 Normal 0.0-0.8 10*3/uL LAB EO# Eosinophils # (Auto) 0.3 Normal 0.0-0.45 10*3/uL LAB BA# Basophils # (Auto) 0.1 Normal 0.0-0.2 10*3/uL Result Comment: PERFORMED BY : [facility] [address] [place] [address] PATHOLOGIST SALESPERSON HOSIERY XAVIER AGARWAL M.D. Performed By: #### CMP, CBC, PHOS, MG, TSH3 #### [address] COMPREHENSIVE METABOLIC PANEL Collected: 05/10/2023 4 :20 AM Status: F Source: [facility] REPOSITORY TYPE CODE TESTS RESULT OUT OF RANGE REFERENCE UNITS LAB GLU Glucose 143 High 70-100 mg/dL Result Comment: Random Gluco se Reference Range is dependent on time and content of last meal. Glucose of more than 200 mg/dL in a nonstressed, ambulatory subject supports the diagnosis of Diabetes Mellitus. ADA recommended reference range LAB BUN Blood Urea Nitrogen 38 High 7-25 mg/d L LAB CREATT Creatinine 1.71 High 0.60-1.20 mg/dL LAB GFReNR Estimated GFR 32.235 LAB NA Sodium 136 Normal 136-145 mmol/L LAB K Potassium 3.6 Normal 3.5-5.1 mmol/L LAB CL Chloride 94 Low 98-107 mmol/L LAB CO2 Carbon Dioxide 34.0 High 21.0-31.0 mmol/L LAB GAP Anion Gap 11.6 Normal 6.0-15.0 LAB CA Calcium 9.2 Normal 8.6-10.3 mg/dL LAB TP Total Protein 6.6 Normal 6.4-8.9 g/dL LAB ALB Albumin Level 3.7 Normal 3.5-5.7 g/dL LAB GLOB Globulin 2.9 g/dL LAB AGRATIO Albumin/Globulin Ratio 1.3 LAB BILIT Bilirubin,Total 0.5 Normal 0.3-1.0 mg/dL LAB AST Aspartate Amino Transferase 18 Normal 13-39 U/L LAB ALT Alanine Aminotransferase 13 Normal 7-52 U/L LAB ALP Alkaline Phosphatase 66 Normal 34-104 U/L LAB CRCLPHA Creatinine Clr C alc Pharmacy 45.39 Performed By: #### CMP, CBC, PHOS, MG, TSH3 #### [place] [id number] [facility] PHOSPHORUS Collected: 3 4:20 AM Status: F Source: [facility] REPOSITORY TYPE CODE TESTS RESULT OUT OF RANGE REFERENCE UNITS LAB PHOS Phosphorus 3.9 Normal 3.7-7.2 mg/dL Performed By: #### CMP, CBC, PHOS, MG, TSH3 #### [address] MAGNESIUM Collected: 3 4:20 AM Status: F Source: [facility] REPOSITORY TYPE CODE TESTS RESULT OUT OF RANGE REFERENCE UNITS LAB MG Magnesium 1.9 Normal 1.9-2.7 mg/dL Performed By: #### CMP, CBC, PHOS, MG, TSH3 #### [address] THYROID STIMULATING HORMONE Collected: 05/10/2023 4:2 0 AM Status: F Source: [facility] REPOSITORY TYPE CODE TESTS RESULT OUT OF RANGE REFERENCE UNITS LAB TSH3 Thyroid Stimulating Hormone 4.47 Normal 0.45-5.33 u[iU]/mL Result Comment: PERFORMED BY : [place] [address] PATHOLOGIST SALESPERSON HOSIERY XAVIER AGARWAL M.D. Performed By: #### CMP, CBC, PHOS, MG, TSH3 #### [address] ECG 12 LEAD ECG Observed: 05/10/2023 3:57 AM Status: COMPLETED Source: [facility] REPOSITORY [facility] [place] [address] Electrocardiograph Report Signed Patient: Namrata Jack MR#: [id number] 6 : 1955 Acct:[id number] Age/Sex: 67 / F ADM Date: 05/10/23 Loc: ER Room: Type: [facility] ER Attending Dr: Ordering Provider: Robyn Robin, DO Date of Service: 05/10/2310/21/345 ECG/ECG 12 lead ECG: Weakness Copies to: Test Reason : Blood Pressure : 134/096 mmHG Vent. Rate : 063 BPM Atrial Rate : 063 BPM P-R Int : 210 ms QRS Dur : 086 ms QT Int : 478 ms P-R-T Axes : 052 -06 037 degrees QTc Int : 489 ms Sinus rhythm with 1st degree AV block Prolonged QT Abnormal ECG No previous ECGs available Confirmed by DARA FERNANDEZ MD ([id number]) on 05/11/2023 12:01:21 PM Referred By: Electronically Signed By:DARA FERNANDEZ MD Transcribed By: MUS Signed By Dara Fernandez MD 0 05/11/23 1201 GLUCOSE POCT GLUCOMETERS Collected: 05/10/2023 3:53 A M Status: F Source: [facility] REPOSITORY TYPE CODE TESTS RESULT OUT OF RANGE REFERENCE UNITS LAB GLUPOC Glucose Poc Glucometers 143 mg/dL Result Comment: Random Gluco se Reference Range is dependent on time and content of last meal. Glucose of more than 200 mg/dL in a nonstressed, ambulatory subject supports the diagnosis of Diabetes Mellitus. LAB COMM1 Commemt1 Glu2: Cleaned Meter Result Comment: PERFORMED BY : [address] [place] [address] PATHOLOGIST SALESPERSON HOSIERY XAVIER AGARWAL M.D. Performed By: #### GLULS ### # Point of Care testing , GLUCOSE POCT GLUCOMETERS Collected: 05/09/2023 7:03 A M Status: F Source: [facility] REPOSITORY TYPE CODE TESTS RESULT OUT OF RANGE REFERENCE UNITS LAB GLUPOC Glucose Poc Glucometers 157 mg/dL Result Comment: Random Gluco se Reference Range is dependent on time and content of last meal. Glucose of more than 200 mg/dL in a nonstressed, ambulatory subject supports the diagnosis of Diabetes Mellitus. PERFORMED BY: [facility] [address] [facility] [place] [address] PATHOLOGIST SALESPERSON HOSIERY XAVIER AGARWAL M.D. Performed By: #### GLULS ### # Point of Care testing , IRON AND TIBC PROFILE Collected: 05/09/2023 5:50 AM Status: F Source: [facility] REPOSITORY TYPE CODE TESTS RESULT OUT OF RANGE REFERENCE UNITS LAB FE Iron 49 Low 50-212 ug/dL LAB TIBCT Total Iron Binding Capacity 280 Normal 255-450 ug/dL LAB FESAT% % Iron Saturation 17.5 Low 20-50 % LAB TRANS Transferrin 200 Low 203-362 mg/dL Performed By: #### [id number] , MANDA, FE and TIBC #### [address] FERRITIN Collected: 5:50 AM Status: F Source: [facility] REPOSITORY TYPE CODE TESTS RESULT OUT OF RANGE REFERENCE UNITS LAB MANDA Ferritin 60.9 Normal 11.0-306.8 ng/mL Performed By: #### [id number] , MANDA, FE and TIBC #### [place] [id number] [facility] VIT. B12/FOLATE PROFILE Collected: 04/29 5:50 AM Status: F Source: [facility] REPOSITORY TYPE CODE TESTS RESULT OUT OF RANGE REFERENCE UNITS LAB B12 Vitamin B12 428 Normal 180-914 pg/mL LAB FOL Folate 19.7 >5.9 ng/mL Result Comment: Folate refer ence range: >5.9 ng/ml The WHO technical consultation on folate and vitamin b12 deficiencies has determined that folate concentrations less than 4 ng/ml are considered deficient. PERFORMED BY: [place] [address] PATHOLOGIST SALESPERSON HOSIERY XAVIER AGARWAL M.D. Performed By: #### [id number] , MANDA, FE and TIBC #### [place] [id number] [facility] BASIC METABOLIC PANEL Collected: 2022 5:50 AM Status: F Source: [facility] REPOSITORY TYPE CODE TESTS RESULT OUT OF RANGE REFERENCE UNITS LAB GLU Glucose 110 High 70-100 mg/dL Result Comment: Random Gluco se Reference Range is dependent on time and content of last meal. Glucose of more than 200 mg/dL in a nonstressed, ambulatory subject supports the diagnosis of Diabetes Mellitus. ADA recommended reference range LAB BUN Blood Urea Nitrogen 35 High 7-25 mg/dL LAB CREATT Creatinine 1.76 High 0.60-1.20 mg/dL LAB GFReNR Estimated GFR 31.139 LAB NA Sodium 138 Normal 136-145 mmol/L LAB K Potassium 3.6 Normal 3.5-5.1 mmol/L LAB CL Chloride 94 Low 98-107 mmol/L LAB CO2 Carbon Dioxide 36.9 High 21.0-31.0 mmol/L LAB GAP Anion Gap 10.7 Normal 6.0-15.0 LAB CA Calcium 9.2 Normal 8.6-10.3 mg/dL LAB CRCLPHA Creatinine Clr Calc Pharmacy 43.91 Performed By: #### MG, BMP # ### [facility] [address] MAGNESIUM Collected: 5:50 AM Status: F Source: [facility] REPOSITORY TYPE CODE TESTS RESULT OUT OF RANGE REFERENCE UNITS LAB MG Magnesium 1.9 Normal 1.9-2.7 mg/dL Result Comment: PERFORMED BY : [place] [address] PATHOLOGIST SALESPERSON HOSIERY XAVIER AGARWAL M.D. Performed By: #### MG, BMP # ### [address] GLUCOSE POCT GLUCOMETERS Collected: 05/08/2023 8:42 P M Status: F Source: [facility] REPOSITORY TYPE CODE TESTS RESULT OUT OF RANGE REFERENCE UNITS LAB GLUPOC Glucose Poc Glucometers 151 mg/dL Result Comment: Random Gluco se Reference Range is dependent on time and content of last meal. Glucose of more than 200 mg/dL in a nonstressed, ambulatory subject supports the diagnosis of Diabetes Mellitus. PERFORMED BY: [place] [address] PATHOLOGIST SALESPERSON HOSIERY XAVIER AGARWAL M.D. Performed By: #### GLULS ### # Point of Care testing , GLUCOSE POCT GLUCOMETERS Collected: 05/08/2023 6:35 A M Status: F Source: [facility] REPOSITORY TYPE CODE TESTS RESULT OUT OF RANGE REFERENCE UNITS LAB GLUPOC Glucose Poc Glucometers 148 mg/dL Result Comment: Random Gluco se Reference Range is dependent on time and content of last meal. Glucose of more than 200 mg/dL in a nonstressed, ambulatory subject supports the diagnosis of Diabetes Mellitus. PERFORMED BY: [place] [id number] PATHOLOGIST SALESPERSON HOSIERY XAVIER AGARWAL M.D. Performed By: #### GLULS ### # Point of Care testing , BASIC METABOLIC PANEL Collected: 2022 6:05 AM Status: F Source: [facility] REPOSITORY TYPE CODE TESTS RESULT OUT OF RANGE REFERENCE UNITS LAB GLU Glucose 162 High 70-100 mg/dL Result Comment: Random Gluco se Reference Range is dependent on time and content of last meal. Glucose of more than 200 mg/dL in a nonstressed, ambulatory subject supports the diagnosis of Diabetes Mellitus. ADA recommended reference range LAB BUN Blood Urea Nitrogen 34 High 7-25 mg/dL LAB CREATT Creatinine 1.74 High 0.60-1.20 mg/dL LAB GFReNR Estimated GFR 31.569 LAB NA Sodium 140 Normal 136-145 mmol/L LAB K Potassium 3.7 Normal 3.5-5.1 mmol/L LAB CL Chloride 96 Low 98-107 mmol/L LAB CO2 Carbon Dioxide 37.3 High 21.0-31.0 mmol/L LAB GAP Anion Gap 10.4 Normal 6.0-15.0 LAB CA Calcium 9.2 Normal 8.6-10.3 mg/dL LAB CRCLPHA Creatinine Clr Calc Pharmacy 44.49 Result Comment: PERFORMED BY : [place] [id number] PATHOLOGIST SALESPERSON HOSIERY XAVIER AGARWAL M.D. Performed By: #### BMP #### [place] [id number] [place] GLUCOSE POCT GLUCOMETERS Collected: 05/07/2023 8:12 P M Status: F Source: [facility] REPOSITORY TYPE CODE TESTS RESULT OUT OF RANGE REFERENCE UNITS LAB GLUPOC Glucose Poc Glucometers 113 mg/dL Result Comment: Random Gluco se Reference Range is dependent on time and content of last meal. Glucose of more than 200 mg/dL in a nonstressed, ambulatory subject supports the diagnosis of Diabetes Mellitus. PERFORMED BY: [address] [address] PATHOLOGIST SALESPERSON HOSIERY XAVIER AGARWAL M.D. Performed By: #### GLULS ### # Point of Care testing , GLUCOSE POCT GLUCOMETERS Collected: 05/07/2023 4:02 P M Status: F Source: [facility] REPOSITORY TYPE CODE TESTS RESULT OUT OF RANGE REFERENCE UNITS LAB GLUPOC Glucose Poc Glucometers 125 mg/dL Result Comment: Random Gluco se Reference Range is dependent on time and content of last meal. Glucose of more than 200 mg/dL in a nonstressed, ambulatory subject supports the diagnosis of Diabetes Mellitus. PERFORMED BY: [address] [place] [address] PATHOLOGIST SALESPERSON HOSIERY XAVIER AGARWAL M.D. Performed By: #### GLULS ### # Point of Care testing , GLUCOSE POCT GLUCOMETERS Collected: 05/07/2023 11:13 AM Status: F Source: [facility] REPOSITORY TYPE CODE TESTS RESULT OUT OF RANGE REFERENCE UNITS LAB GLUPOC Glucose Poc Glucometers 180 mg/dL Result Comment: Random Gluco se Reference Range is dependent on time and content of last meal. Glucose of more than 200 mg/dL in a nonstressed, ambulatory subject supports the diagnosis of Diabetes Mellitus. LAB COMM1 Commemt1 Glu2: Cleaned Meter Result Comment: PERFORMED BY : [address] [place] [address] PATHOLOGIST SALESPERSON HOSIERY XAVIER AGARWAL M.D. Performed By: #### GLULS ### # Point of Care testing , GLUCOSE POCT GLUCOMETERS Collected: 05/07/2023 6:25 A M Status: F Source: [facility] REPOSITORY TYPE CODE TESTS RESULT OUT OF RANGE REFERENCE UNITS LAB GLUPOC Glucose Poc Glucometers 189 mg/dL Result Comment: Random Gluco se Reference Range is dependent on time and content of last meal. Glucose of more than 200 mg/dL in a nonstressed, ambulatory subject supports the diagnosis of Diabetes Mellitus. PERFORMED BY: [address] [place] [address] PATHOLOGIST SALESPERSON HOSIERY XAVIER AGARWAL M.D. Performed By: #### GLULS ### # Point of Care testing , BASIC METABOLIC PANEL Collected: 2022 4:37 AM Status: F Source: [facility] REPOSITORY TYPE CODE TESTS RESULT OUT OF RANGE REFERENCE UNITS LAB GLU Glucose 219 High 70-100 mg/dL Result Comment: Random Gluco se Reference Range is dependent on time and content of last meal. Glucose of more than 200 mg/dL in a nonstressed, ambulatory subject supports the diagnosis of Diabetes Mellitus. ADA recommended reference range LAB BUN Blood Urea Nitrogen 35 High 7-25 mg/dL LAB CREATT Creatinine 1.78 High 0.60-1.20 mg/dL LAB GFReNR Estimated GFR 30.720 LAB NA Sodium 137 Normal 136-145 mmol/L LAB K Potassium 3.7 Normal 3.5-5.1 mmol/L LAB CL Chloride 96 Low 98-107 mmol/L LAB CO2 Carbon Dioxide 33.8 High 21.0-31.0 mmol/L LAB GAP Anion Gap 10.9 Normal 6.0-15.0 LAB CA Calcium 8.9 Normal 8.6-10.3 mg/dL LAB CRCLPHA Creatinine Clr Calc Pharmacy 43.80 Performed By: #### MG, BMP # ### [facility] [address] MAGNESIUM Collected: 4:37 AM Status: F Source: [facility] REPOSITORY TYPE CODE TESTS RESULT OUT OF RANGE REFERENCE UNITS LAB MG Magnesium 1.9 Normal 1.9-2.7 mg/dL Result Comment: PERFORMED BY : [place] [address] PATHOLOGIST SALESPERSON HOSIERY XAVIER AGARWAL M.D. Performed By: #### MG, BMP # ### [facility] [address] [place] [id number] [place] GLUCOSE POCT GLUCOMETERS Collected: 05/06/2023 8:44 P M Status: F Source: [facility] REPOSITORY TYPE CODE TESTS RESULT OUT OF RANGE REFERENCE UNITS LAB GLUPOC Glucose Poc Glucometers 220 mg/dL Result Comment: Random Gluco se Reference Range is dependent on time and content of last meal. Glucose of more than 200 mg/dL in a nonstressed, ambulatory subject supports the diagnosis of Diabetes Mellitus. PERFORMED BY: [address] [address] PATHOLOGIST SALESPERSON HOSIERY XAVIER AGARWAL M.D. Performed By: #### GLULS ### # Point of Care testing , GLUCOSE POCT GLUCOMETERS Collected: 05/06/2023 3:29 P M Status: F Source: [facility] REPOSITORY TYPE CODE TESTS RESULT OUT OF RANGE REFERENCE UNITS LAB GLUPOC Glucose Poc Glucometers 60 Low Off Scale mg/dL Result Comment: Random Gluco se Reference Range is dependent on time and content of last meal. Glucose of more than 200 mg/dL in a nonstressed, ambulatory subject supports the diagnosis of Diabetes Mellitus. PERFORMED BY: [address] [address] PATHOLOGIST SALESPERSON HOSIERY XAVIER AGARWAL M.D. Performed By: #### GLULS ### # Point of Care testing , BASIC METABOLIC PANEL Collected: 2022 7:25 AM Status: F Source: [facility] REPOSITORY TYPE CODE TESTS RESULT OUT OF RANGE REFERENCE UNITS LAB GLU Glucose 141 High 70-100 mg/dL Result Comment: Random Gluco se Reference Range is dependent on time and content of last meal. Glucose of more than 200 mg/dL in a nonstressed, ambulatory subject supports the diagnosis of Diabetes Mellitus. ADA recommended reference range LAB BUN Blood Urea Nitrogen 29 High 7-25 mg/dL LAB CREATT Creatinine 1.48 High 0.60-1.20 mg/dL LAB GFReNR Estimated GFR 38.336 LAB NA Sodium 139 Normal 136-145 mmol/L LAB K Potassium 3.6 Normal 3.5-5.1 mmol/L LAB CL Chloride 99 Normal 98-107 mmol/L LAB CO2 Carbon Dioxide 33.2 High 21.0-31.0 mmol/L LAB GAP Anion Gap 10.4 Normal 6.0-15.0 LAB CA Calcium 9.2 Normal 8.6-10.3 mg/dL LAB CRCLPHA Creatinine Clr Calc Pharmacy 52.68 Result Comment: PERFORMED BY : [place] [address] PATHOLOGIST SALESPERSON HOSIERY XAVIER AGARWAL M.D. Performed By: #### BMP #### [address] [address] [facility] GLUCOSE POCT GLUCOMETERS Collected: 05/06/2023 6:22 A M Status: F Source: [facility] REPOSITORY TYPE CODE TESTS RESULT OUT OF RANGE REFERENCE UNITS LAB GLUPOC Glucose Poc Glucometers 137 mg/dL Result Comment: Random Gluco se Reference Range is dependent on time and content of last meal. Glucose of more than 200 mg/dL in a nonstressed, ambulatory subject supports the diagnosis of Diabetes Mellitus. PERFORMED BY: [place] [address] [place] [address] PATHOLOGIST SALESPERSON HOSIERY XAVIER AGARWAL M.D. Performed By: #### GLULS ### # Point of Care testing , GLUCOSE POCT GLUCOMETERS Collected: 05/05/2023 8:44 P M Status: F Source: [facility] REPOSITORY TYPE CODE TESTS RESULT OUT OF RANGE REFERENCE UNITS LAB GLUPOC Glucose Poc Glucometers 220 mg/dL Result Comment: Random Gluco se Reference Range is dependent on time and content of last meal. Glucose of more than 200 mg/dL in a nonstressed, ambulatory subject supports the diagnosis of Diabetes Mellitus. PERFORMED BY: [facility] [address] [place] [address] PATHOLOGIST SALESPERSON HOSIERY XAVIER AGARWAL M.D. Performed By: #### GLULS ### # Point of Care testing , GLUCOSE POCT GLUCOMETERS Collected: 05/05/2023 5:01 P M Status: F Source: [facility] REPOSITORY TYPE CODE TESTS RESULT OUT OF RANGE REFERENCE UNITS LAB GLUPOC Glucose Poc Glucometers 76 mg/dL Result Comment: Random Gluco se Reference Range is dependent on time and content of last meal. Glucose of more than 200 mg/dL in a nonstressed, ambulatory subject supports the diagnosis of Diabetes Mellitus. PERFORMED BY: [facility] [address] [place] [address] PATHOLOGIST SALESPERSON HOSIERY XAVIER AGARWAL M.D. Performed By: #### GLULS ### # Point of Care testing , GLUCOSE POCT GLUCOMETERS Collected: 05/05/2023 4:31 P M Status: F Source: [facility] REPOSITORY TYPE CODE TESTS RESULT OUT OF RANGE REFERENCE UNITS LAB GLUPOC Glucose Poc Glucometers 64 mg/dL Result Comment: Random Gluco se Reference Range is dependent on time and content of last meal. Glucose of more than 200 mg/dL in a nonstressed, ambulatory subject supports the diagnosis of Diabetes Mellitus. PERFORMED BY: [place] [address] PATHOLOGIST SALESPERSON HOSIERY XAVIER AGARWAL M.D. Performed By: #### GLULS ### # Point of Care testing , GLUCOSE POCT GLUCOMETERS Collected: 05/05/2023 11:09 AM Status: F Source: [facility] REPOSITORY TYPE CODE TESTS RESULT OUT OF RANGE REFERENCE UNITS LAB GLUPOC Glucose Poc Glucometers 148 mg/dL Result Comment: Random Gluco se Reference Range is dependent on time and content of last meal. Glucose of more than 200 mg/dL in a nonstressed, ambulatory subject supports the diagnosis of Diabetes Mellitus. PERFORMED BY: [place] [address] PATHOLOGIST SALESPERSON HOSIERY XAVIER AGARWAL M.D. Performed By: #### GLULS ### # Point of Care testing , ECH ECHO TRANSTHORACIC Observed: 023 10:03 AM Status: COMPLETED Source: [facility] REPOSITORY [facility] [place] Main [place] [id number] Echocardiogram Signed Patient: Namrata Jack MR#: [id number] 6 : 1955 Acct:[id number] Age/Sex: 67 / F ADM Date: 05/04/23 Loc: Room: [address] [place] [address] Type: ADM IN Attending Dr: Fahad Dobson MD Ordering Provider: Davina Grimes APRN Date of Service: 05/05/2305/21/500 ECH/ECH echo transthoracic: Shortness of Breath/Dyspnea, chf Copies to: Christa Hatch MD, FACC Davina Grimes, DYED [employer]OCK BLOWER FEEDER Height: 63 in Weight: 340 lb Performed By: Seema Sanderson TAO BSA: 2.4 m2 BP: 126/69 mmHg HR: 58 Reason For Study: Shortness of Breath/Dyspnea, chf History: Asthma. CAD. DM. GERD. HTN. HLD. PCI. Morbid Obesity. Family history of CAD. Former Smoker. Interpretation Summary Left ventricular systolic function is normal. Ejection Fraction = 65-70%. A variety of Doppler measurements indicate pseudonormalized left ventricular relaxation, which is associated with grade II/IV or mild to moderate diastolic dysfunction. Mitral valve annulus tissue Doppler imaging is consistent with elevated left atrial pressure. The left atrium appears mildly dilated. Mild valvular aortic stenosis. The aortic valve peak velocity is 248 cm/s. The aortic valve maximum pressure gradient is 25 mmHg. Compared to the prior echo report on 12/10/2021, there is no significant change. Procedure/Quality: A two-dimensional transthoracic echocardiogram with color flow, Doppler and injection of contrast agent Definity was performed. The study was technically fair in quality. Compared to the prior echo report on 12/10/2021, there is no significant change. Left Ventricle: The left ventricle is not well visualized. Left ventricular systolic function is normal. Ejection Fraction = 65-70%. A variety of Doppler measurements indicate pseudonormalized left ventricular relaxation, which is associated with grade II/IV or mild to moderate diastolic dysfunction. Mitral valve annulus tissue Doppler imaging is consistent with elevated left atrial pressure. Left Atrium: The left atrium appears mildly dilated. The atrial septum appears normal. Right Atrium: The right atrium appears normal in size. Right Ventricle: The right ventricular size, thickness and function are normal. Aortic Valve: The aortic valve is mildly calcified. Mild valvular aortic stenosis. The aortic valve peak velocity is 248 cm/s. The aortic valve maximum pressure gradient is 25 mmHg. Mitral Valve: The mitral valve is moderately sclerotic. Tricuspid Valve: The tricuspid valve is normal. There is trace tricuspid regurgitation. Pulmonic Valve: The pulmonic valve is not well seen, but is grossly normal. Arteries: The aortic root is normal size. Pericardium/Pleura: No pericardial effusion seen. There is no pleural effusion. IVC/Hepatic Viens: The IVC is normal in size with an inspiratory collapse of greater then 50%, suggesting normal right atrial pressure. Miscellaneous: No thrombus, vegetation or mass is seen. Measurements with Normals LA dimension: 4.7 cm (2.3-4.0 cm)Ao root diam: 2.8 cm(2.0-3.6 cm) asc Aorta Diam: 2.6 cm(2.1-3.4cm) Doppler with Normals RVSP(TR): 38.9 mmHg (18-35mmHg) LV V1 max: 125.0 cm/sec (0.7-1.7m/s)MV E max bianka: 171.0 cm/sec(0.8-1.3m/s) MV A max bianka: 131.0 cm/sec(0.0-0.0m/s) MV E/A: 1.3 (<1.5) MMode/2D Measurements Calculations TAPSE: 1.9 cm Ao root area: LVOT diam: 2.0 cm LVLd ap4: 8.4 cm RV S Bianka: 6.2 cm2 LVOT area: 3.1 cm2 EDV(MOD-sp4): 14.8 cm/sec 142.0 ml LVLs ap4: 8.0 cm ESV(MOD-sp4): 60.5 ml EF(MOD-sp4): 57.4 % __ SV(MOD-sp4): LAV(MOD-sp4): LA A2 area: 27.7 cm2 81.5 ml 90.2 ml LAV(MOD-sp2): LA A4 area: 29.3 cm2 83.1 ml LA length (vol): 7.7 cm LA vol: 89.2 ml LA vol index: 36.9 ml/m2 Doppler Measurements Calculations MV dec time: MV V2 max: E/E' lat: 24.3 MV P1/2t max bianka: 0.19 sec 199.0 cm/sec E/E' med: 26.3 201.0 cm/sec MV max PG: MV P1/2t: 70.1 msec 15.8 mmHg MV V2 mean: MVA(P1/2t): 3.1 cm2 92.5 cm/sec MV dec slope: MV mean P.0 cm/sec2 4.0 mmHg MV V2 VTI: 72.3 cm MVA(VTI): 1.3 cm2 __ Ao V2 max: LV V1 max PG: TV max PG: TR max bianka: 248.0 cm/sec 6.3 mmHg 31.0 mmHg 278.0 cm/sec Ao max PG: LV V1 mean PG: TR max P.9 mmHg 24.6 mmHg 4.0 mmHg RAP systole: 8.0 mmHg Ao mean PG: LV V1 mean: 15.0 mmHg 93.7 cm/sec Ao V2 mean: LV V1 VTI: 29.9 cm 187.0 cm/sec Ao V2 VTI: 58.5 cm RASHAUN(I,D): 1.6 cm2 RASHAUN(V,D): 1.6 cm2 Transcribed By: MILAGROS Performed At: 05/05/23 1003 Signed By: Christa Hatch MD, [facility] 05/05/23 1130 GLUCOSE POCT GLUCOMETERS Collected: 05/05/2023 6:32 A M Status: F Source: [facility] REPOSITORY TYPE CODE TESTS RESULT OUT OF RANGE REFERENCE UNITS LAB GLUPOC Glucose Poc Glucometers 137 mg/dL Result Comment: Random Gluco se Reference Range is dependent on time and content of last meal. Glucose of more than 200 mg/dL in a nonstressed, ambulatory subject supports the diagnosis of Diabetes Mellitus. PERFORMED BY: [facility] [address] [place] [address] PATHOLOGIST SALESPERSON HOSIERY XAVIER AGARWAL M.D. Performed By: #### GLULS ### # Point of Care testing , COMPLETE BLOOD COUNT AUTO DIFF Collected: 05/05/2023 5:33 AM Status: F Source: F [facility] REPOSITORY TYPE CODE TESTS RESULT OUT OF RANGE REFERENCE UNITS LAB WBC White Blood Count 7.6 Normal 3.8-11.6 10*3/uL LAB UNWBC Uncorrected WBC 7.6 Normal 3.8-11.6 10*3/uL LAB RBC Red Blood Count 3.54 Low 3.60-5.00 LAB HGB Hemoglobin 11.2 Low 11.8-15.4 g/dL LAB HCT Hematocrit 33.0 Low 34.0-46.4 % LAB MCV Mean Corpuscular Volume 93.3 Normal 80-100 fL LAB MCH Mean Corpuscular Hemoglobin 31.5 Normal 24.7-34.3 pg LAB MCHC Mean Corpuscular HGB Conc 33.8 Normal 32.0-35.0 g/dL LAB RDW Red Cell Distribution Width 13.6 Normal 11.9-15.3 % LAB PLT Platelet Count 240 Normal 150-450 10*3/uL LAB MPV Mean Platelet Volume 7.9 Normal 6.3-10.7 fL LAB NE% Neutrophils % (Auto) 63.5 . % LAB LY% Lymphocytes % (Auto) 23.4 . % LAB MO% Monocytes % (Auto) 8.2 . % LAB EO% Eosinophils % (Auto) 3.9 . % LAB BA% Basophils % (Auto) 1.0 . % LAB NRBC% NRBC% 0.2 Normal 0-0.5 /100{WBC } LAB NE# Neutrophils # (Auto) 4.8 Normal 1.8-7.7 10*3/uL LAB LY# Lymphocytes # (Auto) 1.8 Normal 1.00-4.8 10*3/uL LAB MO# Monocytes # (Auto) 0.6 Normal 0.0-0.8 10*3/uL LAB EO# Eosinophils # (Auto) 0.3 Normal 0.0-0.45 10*3/uL LAB BA# Basophils # (Auto) 0.1 Normal 0.0-0.2 10*3/uL Result Comment: PERFORMED BY : [place] [address] PATHOLOGIST SALESPERSON HOSIERY XAVIER AGARWAL M.D. Performed By: #### BMP, MG, CBC, A1C [facility] #### [address] BASIC METABOLIC PANEL Collected: 2022 5:33 AM Status: F Source: [facility] REPOSITORY TYPE CODE TESTS RESULT OUT OF RANGE REFERENCE UNITS LAB GLU Glucose 124 High 70-100 mg/dL Result Comment: Random Gluco se Reference Range is dependent on time and content of last meal. Glucose of more than 200 mg/dL in a nonstressed, ambulatory subject supports the diagnosis of Diabetes Mellitus. ADA recommended reference range LAB BUN Blood Urea Nitrogen 27 High 7-25 mg/dL LAB CREATT Creatinine 1.39 High 0.60-1.20 mg/dL LAB GFReNR Estimated GFR 41.334 LAB NA Sodium 141 Normal 136-145 mmol/L LAB K Potassium 3.7 Normal 3.5-5.1 mmol/L LAB CL Chloride 104 Normal 98-107 mmol/L LAB CO2 Carbon Dioxide 31.9 High 21.0-31.0 mmol/L LAB GAP Anion Gap 8.8 Normal 6.0-15.0 LAB CA Calcium 9.2 Normal 8.6-10.3 mg/dL LAB CRCLPHA Creatinine Clr Calc Pharmacy 56.89 Performed By: #### BMP, MG, CBC, A1C WTH eA #### [facility] [address] [place] [id number] [facility] MAGNESIUM Collected: 5:33 AM Status: F Source: [facility] REPOSITORY TYPE CODE TESTS RESULT OUT OF RANGE REFERENCE UNITS LAB MG Magnesium 1.7 Low 1.9-2.7 mg/dL Result Comment: PERFORMED BY : [place] [address] PATHOLOGIST SALESPERSON HOSIERY XAVIER AGARWAL M.D. Performed By: #### BMP, MG, CBC, A1C WTH eA #### [address] [address] [facility] A1C WITH ESTIMATED AVERAGE GLU Collected: 05/05/2023 5:33 AM Status: F Source: F [facility] REPOSITORY TYPE CODE TESTS RESULT OUT OF RANGE REFERENCE UNITS LAB .A1C Hemoglobin A1C 8.0 High 4.3-5.6 % Result Comment: Increased ri sk for diabetes: 5.7 - 6.4 diabetes: >6.4 glycemic control for adults with diabetes: <7.0 LAB eAG Estimated Average Glucose 183 mg/dL Result Comment: PERFORMED BY : [place] [id number] PATHOLOGIST SALESPERSON HOSIERY XAVIER AGARWAL M.D. Performed By: #### BMP, MG, CBC, A1C WTH eA #### [address] [address] [facility] GLUCOSE POCT GLUCOMETERS Collected: 05/04/2023 10:43 PM Status: F Source: [facility] REPOSITORY TYPE CODE TESTS RESULT OUT OF RANGE REFERENCE UNITS LAB GLUPOC Glucose Poc Glucometers 144 mg/dL Result Comment: Random Gluco se Reference Range is dependent on time and content of last meal. Glucose of more than 200 mg/dL in a nonstressed, ambulatory subject supports the diagnosis of Diabetes Mellitus. LAB COMM1 Commemt1 Glu2: Cleaned Meter Result Comment: PERFORMED BY : [address] [address] PATHOLOGIST SALESPERSON HOSIERY XAVIER AGARAWL M.D. Performed By: #### GLULS ### # Point of Care testing , TROPONIN I HIGH SENSITIVITY Collected: 05/04/2023 7:0 3 PM Status: F Source: [facility] REPOSITORY TYPE CODE TESTS RESULT OUT OF RANGE REFERENCE UNITS LAB HS TROP Troponin I High Sensitivity 6.4 Normal 0.0-15.0 pg/mL Result Comment: PERFORMED BY : [place] [id number] PATHOLOGIST SALESPERSON HOSIERY XAVIER AGARWAL M.D. Performed By: #### HS TROP # ### [place] [id number] [place] DIPSTICK AND MICROSCOPIC Collected: 03/2023 6:34 PM Status: F Source: [facility] REPOSITORY Order Comment: Name Collecti on Type:: Clean-Voided Midstream TYPE CODE TESTS RESULT OUT OF RANGE REFERENCE UNITS LAB UCOL Color,Urine Yellow Yellow LAB UAPP Appearance,Uri ne Clear Clear LAB USG Specificy [place],Urine 1.012 Normal 1.001-1.030 LAB UPH pH,Urine 5.0 Normal 5.0-9.0 LAB ULE Leukocyte Esterase,Urine 1+ High Negative LAB UNIT Nitrite,Urine Negative Negative LAB UPRO Protein,Urine Negative Negative LAB UGL Glucose,Urine (UA) Normal Normal LAB UKET Ketones,Urine Negative Negative LAB UURO Urobilinogen,U rine Normal Normal LAB UBIL Bilirubin,Urin e Negative Negative LAB UBLD Occult Blood,Urine Negative Negative Result Comment: PERFORMED BY : [address] [address] PATHOLOGIST SALESPERSON HOSIERY XAVIER AGARWAL M.D. LAB URBC RBC,Urine 0-1 0-4 LAB UWBC WBC,Urine 3-4 0-4 LAB USQEPI Squamous Epithelial Cell,Urine 1-2 0-2 LAB UBACT Bacteria,Urine None Seen None Seen LAB UHYALC Hyaline Casts,Urine 0-8 0-8 Result Comment: PERFORMED BY : [place] [address] PATHOLOGIST SALESPERSON HOSIERY XAVIER AGARWAL M.D. Performed By: #### ADDONUAPL #### [address] XR CHEST 2V* Observed: 05/04/2023 6:06 PM Status: COMPLETED Source: [facility] REPOSITORY [facility] [place] Main [place] [address] [place] [address] XRay Report Signed Patient: Namrata Jack MR#: [id number] 6 : 1955 Acct:[id number] Age/Sex: 67 / F ADM Date: 05/04/23 Loc: ER Room: Type: [facility] ER Attending Dr: Copies to: Ann Gillis MD Ordering Provider: Ann Gillis MD Date of Service: 05/04/23 XR/XR chest 2V*: Shortness of Breath/Dyspnea Chest 2 views CLINICAL HISTORY: Increased swelling in both legs down to the feet with shortness of breath COMPARISON: Chest 12/08/2021 FINDINGS: Cardiomegaly with vascular congestion grossly similar to the prior study. No consolidation pneumothorax pleural effusion or free air. XR/XR chest 2V* IMPRESSION: CHF FINDINGS, SIMILAR TO THE PRIOR STUDY. Impression dictated by: Chapin Maher Jr., D.OJostin05/04/2023 6:06 PM Dictation Location: [place] [address] Transcribed By: [facility] 05/04/231805 Dictated By: Chapin Maher Jr, DO 05/04/231805 Signed By: <Electronically signed by Chapin Maher Jr, DO in OV> 05/04/231805 COMPLETE BLOOD COUNT AUTO DIFF Collected: 05/04/2023 5:27 PM Status: F Source: F [facility] REPOSITORY TYPE CODE TESTS RESULT OUT OF RANGE REFERENCE UNITS LAB WBC White Blood Count 6.4 Normal 3.8-11.6 10*3/uL LAB UNWBC Uncorrected WBC 6.4 Normal 3.8-11.6 10*3/uL LAB RBC Red Blood Count 3.77 Normal 3.60-5.00 LAB HGB Hemoglobin 11.7 Low 11.8-15.4 g/dL LAB HCT Hematocrit 35.1 Normal 34.0-46.4 % LAB MCV Mean Corpuscular Volume 93.3 Normal 80-100 fL LAB MCH Mean Corpuscular Hemoglobin 31.0 Normal 24.7-34.3 pg LAB MCHC Mean Corpuscular HGB Conc 33.2 Normal 32.0-35.0 g/dL LAB RDW Red Cell Distribution Width 14.0 Normal 11.9-15.3 % LAB PLT Platelet Count 242 Normal 150-450 10*3/uL LAB MPV Mean Platelet Volume 7.8 Normal 6.3-10.7 fL LAB MDW Monocyte Distribution Width 19.38 Normal 0.00-20.00 % LAB NE% Neutrophils % (Auto) 62.4 . % LAB LY% Lymphocytes % (Auto) 23.0 . % LAB MO% Monocytes % (Auto) 9.8 . % LAB EO% Eosinophils % (Auto) 3.9 . % LAB BA% Basophils % (Auto) 0.9 . % LAB NRBC% NRBC% 0.0 Normal 0-0.5 /100{WBC } LAB NE# Neutrophils # (Auto) 4.0 Normal 1.8-7.7 10*3/uL LAB LY# Lymphocytes # (Auto) 1.5 Normal 1.00-4.8 10*3/uL LAB MO# Monocytes # (Auto) 0.6 Normal 0.0-0.8 10*3/uL LAB EO# Eosinophils # (Auto) 0.3 Normal 0.0-0.45 10*3/uL LAB BA# Basophils # (Auto) 0.1 Normal 0.0-0.2 10*3/uL Result Comment: PERFORMED BY : [facility] [address] [place] [address] PATHOLOGIST SALESPERSON HOSIERY XAVIER AGARWAL M.D. Performed By: #### BNP, HS T ROP, CK, CMP, CBC #### [facility] [address] [place] [address] [facility] B-TYPE NATRIURETIC PEPTIDE Collected: 05/04/2023 5:27 PM Status: F Source: [facility] REPOSITORY TYPE CODE TESTS RESULT OUT OF RANGE REFERENCE UNITS LAB BNP B-Type Natriuretic Peptide 115.0 High 5-100 pg/mL Result Comment: PERFORMED BY : [place] [address] PATHOLOGIST SALESPERSON HOSIERY XAVIER AGARWAL M.D. Performed By: #### BNP, HS T ROP, CK, CMP, CBC #### [place] [id number] [facility] COMPREHENSIVE METABOLIC PANEL Collected: 05/04/2023 5 :27 PM Status: F Source: [facility] REPOSITORY TYPE CODE TESTS RESULT OUT OF RANGE REFERENCE UNITS LAB GLU Glucose 94 Normal 70-100 mg/dL Result Comment: Random Gluco se Reference Range is dependent on time and content of last meal. Glucose of more than 200 mg/dL in a nonstressed, ambulatory subject supports the diagnosis of Diabetes Mellitus. ADA recommended reference range LAB BUN Blood Urea Nitrogen 29 High 7-25 mg/d L LAB CREATT Creatinine 1.44 High 0.60-1.20 mg/dL LAB GFReNR Estimated GFR 39.618 LAB NA Sodium 143 Normal 136-145 mmol/L LAB K Potassium 3.9 Normal 3.5-5.1 mmol/L LAB CL Chloride 106 Normal 98-107 mmol/L LAB CO2 Carbon Dioxide 30.1 Normal 21.0-31.0 mmol/L LAB GAP Anion Gap 10.8 Normal 6.0-15.0 LAB CA Calcium 9.5 Normal 8.6-10.3 mg/dL LAB TP Total Protein 6.6 Normal 6.4-8.9 g/dL LAB ALB Albumin Level 3.8 Normal 3.5-5.7 g/dL LAB GLOB Globulin 2.8 g/dL LAB AGRATIO Albumin/Globulin Ratio 1.4 LAB BILIT Bilirubin,Total 0.4 Normal 0.3-1.0 mg/dL LAB AST Aspartate Amino Transferase 17 Normal 13-39 U/L LAB ALT Alanine Aminotransferase 13 Normal 7-52 U/L LAB ALP Alkaline Phosphatase 58 Normal 34-104 U/L LAB CRCLPHA Creatinine Clr C alc Pharmacy 54.97 Result Comment: PERFORMED BY : [address] [address] PATHOLOGIST SALESPERSON HOSIERY XAVIER AGARWAL M.D. Performed By: #### BNP, HS T ROP, CK, CMP, CBC #### [place] [id number] [facility] CREATINE KINASE Collected: 5:27 PM Status: F Source: [facility] REPOSITORY TYPE CODE TESTS RESULT OUT OF RANGE REFERENCE UNITS LAB CK Creatine Kinase 50 Normal 30-223 U/L Performed By: #### BNP, HS T ROP, CK, CMP, CBC #### [place] [id number] [facility] TROPONIN I HIGH SENSITIVITY Collected: 05/04/2023 5:2 7 PM Status: F Source: [facility] REPOSITORY TYPE CODE TESTS RESULT OUT OF RANGE REFERENCE UNITS LAB HS TROP Troponin I High Sensitivity 6.4 Normal 0.0-15.0 pg/mL Result Comment: PERFORMED BY : [place] [address] PATHOLOGIST SALESPERSON HOSIERY XAVIER AGARWAL M.D. Performed By: #### BNP, HS T ROP, CK, CMP, CBC #### [place] [id number] [facility] ECG 12 LEAD ECG Observed: 05/04/2023 5:02 PM Status: COMPLETED Source: [facility] REPOSITORY [facility] [place] Main [place] [id number] Electrocardiograph Report Signed Patient: Namrata Jack MR#: [id number] 6 : 1955 Acct:[id number] Age/Sex: 67 / F ADM Date: 05/04/23 Loc: ER Room: Type: [facility] ER Attending Dr: Ordering Provider: Ann Gillis MD Date of Service: 05/04/2304/21/1657 ECG/ECG 12 lead ECG: Shortness of Breath/Dyspnea Copies to: Test Reason : Blood Pressure : / mmHG Vent. Rate : 056 BPM Atrial Rate : 056 BPM P-R Int : 216 ms QRS Dur : 076 ms QT Int : 476 ms P-R-T Axes : 046 002 040 degrees QTc Int : 459 ms Sinus bradycardia with 1st degree AV block Low voltage QRS Borderline ECG When compared with ECG of 11-APR-2023 04:13, No significant change was found Confirmed by Aryan Kellogg DO ([id number]) on 05/04/2023 7:04:09 PM Referred By: Electronically Signed By:Aryan Kellogg DO Transcribed By: MUS Signed By Aryan Kellogg DO [address] LUMBAR SPINE WO CON Observed: 023 9:22 AM Status: COMPLETED Source: [facility] REPOSITORY [facility] [place] [address] CT Scan Report Signed Patient: Namrata Jack MR#: [id number] 6 : 1955 Acct:[id number] Age/Sex: 67 / F ADM Date: 04/11/23 Loc: ER Room: Type: [facility] ER Attending Dr: Copies to: Dwayne Apodaca Jr, MD Ordering Provider: Dwayne Apodaca Jr, MD Date of Service: 04/11/23 CT/CT lumbar spine wo con: fall CT LUMBAR SPINE WITHOUT CONTRAST WITH 3-D RECONSTRUCTIONS COMPARISON: 05/19/2022 CLINICAL DATA: Patient fell. Back pain. Previous fusion. Spiral axial unenhanced images were obtained through the lumbar spine. Sagittal, coronal and 3-D volume rendered reconstructions were reviewed. This CT exam was performed using one or more following dose reduction techniques: Automated exposure control, adjustment of the mA and/or kV according to patient size, or use of iterative reconstruction technique. Evaluation is slightly limited by body habitus and technique. There is subtle levoscoliotic curvature. Prior laminectomy and fusion fusion is seen at L4-5 with posterior rods and pedicle screws. There is associated streak artifact. A dorsal stimulator is also noted. No acute compression fractures or displacement are present. There is mild disc space narrowing with vacuum phenomenon at L3-4. There is mild endplate spurring, greater in the thoracolumbar region. There is lower lumbar facet disease. Although evaluation is slightly limited, severe central and foraminal stenosis is still suspected at L3-4. The bony pelvis and sacrum showed no acute bony injury. At the imaged lung bases, there are calcified granulomas. There are also splenic granulomas. There is slight adrenal limb thickening. There is atherosclerotic plaque at the aorta. No paraspinal soft tissue abnormalities are present. CT/CT lumbar spine wo con IMPRESSION: SUBTLE SCOLIOSIS WITH POSTOPERATIVE AND DEGENERATIVE CHANGES SIMILAR TO THE COMPARISON. NO ACUTE BONY INJURY. Impression dictated by: Jessica Hawkins M.D.04/11/2023 9:29 AM Dictation Location: [place] [address] Transcribed By: [facility] 04/11/23928 Dictated By: Jessica Hawkins MD 04/11/23921 Signed By: <Electronically signed by MD Jessica Hawkins in OV> 04/11/23928 CT CERVICAL SPINE WO CON Observed: 04/11 9:11 AM Status: COMPLETED Source: [facility] REPOSITORY [facility] [place] [place] [address] CT Scan Report Signed Patient: Namrata Jack MR#: [id number] 6 : 1955 Acct:[id number] Age/Sex: 67 / F ADM Date: 04/11/23 Loc: ER Room: Type: [facility] ER Attending Dr: Copies to: Dwayne Apodaca Jr, MD Ordering Provider: Dwayne Apodaca Jr, MD Date of Service: 04/11/23 CT/CT cervical spine wo con: fall ([id number]) CT/CT head/brain wo con: fall CLINICAL DATA: Patient fell at home and after being dizzy. Patient hit head on the floor. Blood thinners. CT BRAIN WITHOUT CONTRAST: COMPARISON: 08/19/2022 TECHNIQUE: Contiguous axial unenhanced images were obtained through the brain. This CT exam was performed using one or more following dose reduction techniques: Automated exposure control, adjustment of the mA and/or kV according to patient size, or use of iterative reconstruction technique. FINDINGS: There is mild cortical atrophy. The ventricles are within normal limits for size and position. There is minimal white matter hypodensity which is probably microvascular disease given the presence of vertebral artery and carotid siphon plaque. There are no additional areas of abnormal attenuation. There is no hemorrhage, mass effect or extra-axial collections. The calvarium is intact. The imaged paranasal sinuses and mastoid air cells are clear. CT/CT head/brain wo con IMPRESSION: AGE-RELATED CHANGES. NO ACUTE INTRACRANIAL TRAUMA. CT CERVICAL SPINE WITHOUT CONTRAST WITH 3D RECONSTRUCTIONS: COMPARISON: 05/19/2022 TECHNIQUE: Spiral axial unenhanced images were obtained through the cervical spine. Sagittal, coronal and 3D volume-rendered reconstructions were also reviewed. This CT exam was performed using one or more following dose reduction techniques: Automated exposure control, adjustment of the mA and/or kV according to patient size, or use of iterative reconstruction technique. FINDINGS: There is straightening of the normal cervical lordosis. There is prior anterior fusion with plate and screws at C6-7. There is associated streak artifact. Alignment is maintained in the sagittal plane. No fractures are identified. There is disc space narrowing at C5-6. Endplate spurring and mild facet disease are seen. The atlantoaxial relationship is maintained. The prevertebral soft tissues are mildly prominent due to tortuous carotid arteries that have associated plaque. The upper imaged lung apices show calcified granulomas. IMPRESSION: POSTOPERATIVE AND DEGENERATIVE CHANGES. NO ACUTE BONY INJURY. Impression dictated by: Jessica Hawkins M.D.04/11/2023 9:22 AM Dictation Location: [place] [address] Transcribed By: [facility] 04/11/23921 Dictated By: Jessica Hawkins MD 04/11/23 0911 Signed By: <Electronically signed by MD Jessica Hawkins in OV> 04/11/23921 DIPSTICK AND MICROSCOPIC Collected: 7:30 AM Status: F Source: [facility] REPOSITORY Order Comment: Name Collecti on Type:: Clean-Voided Midstream TYPE CODE TESTS RESULT OUT OF RANGE REFERENCE UNITS LAB UCOL Color,Urine Dark Yellow Abnormal Alert Yellow LAB UAPP Appearance,Ur ine Cloudy Abnormal Alert Clear LAB USG Specificy [place],Urine 1.020 Normal 1.001-1.030 LAB UPH pH,Urine 5.5 Normal 5.0-9.0 LAB ULE Leukocyte Esterase,Urin e 3+ High Negative LAB UNIT Nitrite,Urine Positive High Negative LAB UPRO Protein,Urine Trace High Negative LAB UGL Glucose,Urine (UA) Normal Normal LAB UKET Ketones,Urine Negative Negative LAB UURO Urobilinogen, Urine Normal Normal LAB UBIL Bilirubin,Uri ne Negative Negative LAB UBLD Occult Blood,Urine Negative Negative Result Comment: PERFORMED BY : [place] [id number] PATHOLOGIST SALESPERSON HOSIERY XAVIER AGARWAL M.D. LAB URBC RBC,Urine 3-4 0-4 LAB UWBC WBC,Urine Innumerable High 0-4 LAB USQEPI Squamous Epithelial Cell,Urine 3-4 High 0-2 LAB UBACT Bacteria,Urin e 4+ High None Seen LAB UHYALC Hyaline Casts,Urine 0-8 0-8 Result Comment: PERFORMED BY : [place] [address] PATHOLOGIST SALESPERSON HOSIERY XAVIER AGARWAL M.D. Performed By: #### ADDNIGELUAPL , CUU #### [address] URINE CULTURE Observed: 04/11/2023 7:30 AM Status: F Source: [facility] REPOSITORY ORGANISM: Escherichia coli ( O:ESCCOL) Dupont Count >100,000 Aerobic AIDA Charge ([id number]) SUSCEPTIBILITY ORGANISM: O:ESCCOL ANTIBIOTIC INTERPRETATION AIDA Amikacin S <16 Amoxacillin/K Clavulanate S <8 Ampicillin S <8 Ampicillin/Sulbactam S <4 Aztreonam S <4 Cefazolin S <2 Cefepime S <2 Ceftazidime S <1 Ceftazidime/Avibactam S <4 Ceftolozane/Tazobactam S <2 Ceftriaxone S <1 Cefuroxime S <4 Ciprofloxacin S <0.25 Ertapenem S <0.5 Gentamicin S <2 Levofloxacin S <0.5 Meropenem S <1 Meropenem/Vaborbactam S <2 Nitrofurantoin S <32 Piperacillin/Tazobactam S <8 Tetracycline S <4 Tigecycline S <2 Tobramycin S <2 Trimethoprim/Sulfamethoxazole S <0.5 S = SUSCEPTIBLE I = INTERMEDIATE R = RESISTANT BLANK = DATA NOT AVAILABLE, OR DRUG NOT ADVISABLE OR TESTED R* = RESISTANCE DUE TO EXTENDED SPECTRUM BETA-LACTAMASES ESBL = EXTENDED SPECTRUM BETA-LACTAMASE TFG = THYMIDINE-DEPENDENT STRAIN ARTHUR = BETA-LACTAMASE POSITIVE IB = INDUCIBLE BETA-LACTAMASE. APPEARS IN PLACE OF 'S' WITH SPECIES KNOWN TO POSSESS INDUCIBLE BETA-LACTAMASES. POTENTIALLY THEY MAY BECOME RESISTANT TO ALL B-LACTAM DRUGS. PERFORMED BY: [facility] [address] [place] [address] PATHOLOGIST SALESPERSON HOSIERY XAVIER AGARWAL M.D. Performed By: #### KATELIN , CUU #### [facility] [address] [id number] [facility] COMPLETE BLOOD COUNT AUTO DIFF Collected: 04/11/2023 4:51 AM Status: F Source: F [facility] REPOSITORY TYPE CODE TESTS RESULT OUT OF RANGE REFERENCE UNITS LAB WBC White Blood Count 6.6 Normal 3.8-11.6 10*3/uL LAB UNWBC Uncorrected WBC 6.6 Normal 3.8-11.6 10*3/uL LAB RBC Red Blood Count 3.77 Normal 3.60-5.00 LAB HGB Hemoglobin 11.8 Normal 11.8-15.4 g/dL LAB HCT Hematocrit 35.1 Normal 34.0-46.4 % LAB MCV Mean Corpuscular Volume 93.1 Normal 80-100 fL LAB MCH Mean Corpuscular Hemoglobin 31.4 Normal 24.7-34.3 pg LAB MCHC Mean Corpuscular HGB Conc 33.8 Normal 32.0-35.0 g/dL LAB RDW Red Cell Distribution Width 13.9 Normal 11.9-15.3 % LAB PLT Platelet Count 229 Normal 150-450 10*3/uL LAB MPV Mean Platelet Volume 7.7 Normal 6.3-10.7 fL LAB NE% Neutrophils % (Auto) 64.5 . % LAB LY% Lymphocytes % (Auto) 21.8 . % LAB MO% Monocytes % (Auto) 8.5 . % LAB EO% Eosinophils % (Auto) 4.4 . % LAB BA% Basophils % (Auto) 0.8 . % LAB NRBC% NRBC% 0.0 Normal 0-0.5 /100{WBC } LAB NE# Neutrophils # (Auto) 4.2 Normal 1.8-7.7 10*3/uL LAB LY# Lymphocytes # (Auto) 1.4 Normal 1.00-4.8 10*3/uL LAB MO# Monocytes # (Auto) 0.6 Normal 0.0-0.8 10*3/uL LAB EO# Eosinophils # (Auto) 0.3 Normal 0.0-0.45 10*3/uL LAB BA# Basophils # (Auto) 0.1 Normal 0.0-0.2 10*3/uL Result Comment: PERFORMED BY : [place] [address] PATHOLOGIST SALESPERSON HOSIERY XAVIER AGARWAL M.D. Performed By: #### CMP, PTT, CBC, PT #### [place] [id number] [facility] PROTHROMBIN TIME INR Collected: 4:51 AM Status: F Source: [facility] REPOSITORY TYPE CODE TESTS RESULT OUT OF RANGE REFERENCE UNITS LAB R PT Prothrombin Time 12.5 Normal 9.0-12.9 s LAB INR INR 1.1 Result Comment: INR Therapeu tic Range A) Pre- and Peroperative OAT started two weeks before surgery. NOT HIP SURGERY: 1.5 - 2.5 HIP SURGERY: 2 - 3 B) Primary and secondary prevention of venous THROMBOSIS: 2 - 3 C) Active venous thrombosis, pulmonary embolism and prevention of recurrent venous thrombosis: 2 - 3 D) Prevention of arterial thromboembolism including patients with mechanical heart valves: 3 - 4.5 Performed By: #### CMP, PTT, CBC, PT #### [address] [address] [facility] PARTIAL THROMBOPLASTIN TIME Collected: 04/11/2023 4:5 1 AM Status: F Source: [facility] REPOSITORY TYPE CODE TESTS RESULT OUT OF RANGE REFERENCE UNITS LAB PTT Partial Thromboplastin Time 32.2 Normal 25.1-36.5 s Result Comment: PERFORMED BY : [place] [address] PATHOLOGIST SALESPERSON HOSIERY XAVIER AGARWAL M.D. Performed By: #### CMP, PTT, CBC, PT #### [address] [address] [facility] COMPREHENSIVE METABOLIC PANEL Collected: 04/11/2023 4 :51 AM Status: F Source: [facility] REPOSITORY TYPE CODE TESTS RESULT OUT OF RANGE REFERENCE UNITS LAB GLU Glucose 244 High 70-100 mg/dL Result Comment: Random Gluco se Reference Range is dependent on time and content of last meal. Glucose of more than 200 mg/dL in a nonstressed, ambulatory subject supports the diagnosis of Diabetes Mellitus. ADA recommended reference range LAB BUN Blood Urea Nitrogen 24 Normal 7-25 mg/d L LAB CREATT Creatinine 1.34 High 0.60-1.20 mg/dL LAB GFReNR Estimated GFR 43.191 LAB NA Sodium 139 Normal 136-145 mmol/L LAB K Potassium 4.1 Normal 3.5-5.1 mmol/L LAB CL Chloride 102 Normal 98-107 mmol/L LAB CO2 Carbon Dioxide 30.5 Normal 21.0-31.0 mmol/L LAB GAP Anion Gap 10.6 Normal 6.0-15.0 LAB CA Calcium 9.0 Normal 8.6-10.3 mg/dL LAB TP Total Protein 6.2 Low 6.4-8.9 g/dL LAB ALB Albumin Level 3.8 Normal 3.5-5.7 g/dL LAB GLOB Globulin 2.4 g/dL LAB AGRATIO Albumin/Globulin Ratio 1.6 LAB BILIT Bilirubin,Total 0.6 Normal 0.3-1.0 mg/dL LAB AST Aspartate Amino Transferase 13 Normal 13-39 U/L LAB ALT Alanine Aminotransferase 12 Normal 7-52 U/L LAB ALP Alkaline Phosphatase 62 Normal 34-104 U/L LAB CRCLPHA Creatinine Clr C [facility] Pharmacy 58.26 Result Comment: PERFORMED BY : [place] [address] PATHOLOGIST SALESPERSON HOSIERY XAVIER AGARWAL M.D. Performed By: #### CMP, PTT, CBC, PT #### [facility] [address] [place] [address] ECG 12 LEAD ECG Observed: 04/11/2023 4:13 AM Status: COMPLETED Source: [facility] REPOSITORY [facility] [place] [address] Electrocardiograph Report Signed Patient: Namrata Jack MR#: [id number] 6 : 1955 Acct:[id number] Age/Sex: 67 / F ADM Date: 04/11/23 Loc: ER Room: Type: [facility] ER Attending Dr: Ordering Provider: Dwayne Apodaca Jr, MD Date of Service: 04/11/23 ECG/ECG 12 lead ECG: Fall Copies to: Test Reason : Blood Pressure : 176/070 mmHG Vent. Rate : 051 BPM Atrial Rate : 051 BPM P-R Int : 208 ms QRS Dur : 090 ms QT Int : 520 ms P-R-T Axes : 037 -08 059 degrees QTc Int : 479 ms Sinus bradycardia with 1st degree AV block Low voltage QRS Borderline ECG When compared with ECG of 09-DEC-2021 07:32, Vent. rate has decreased BY 25 BPM WA interval has increased Confirmed by DWAYNE APODACA MD ([id number]) on 04/11/2023 5:40:25 AM Referred By: Electronically Signed By:DWAYNE APODACA MD Transcribed By: MUS Signed By Dwayne Apodaca Jr, MD [id number] OFFICE VISIT (CARDIOLOGY) Observed: 03/30 2:30 PM Status: UNK Source: [facility] REPOSITORY Diagnoses/Problems Assessed Atherosclerosis of [place] coronary artery of [place] heart with angina pectoris (414.01,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) History of angioplasty (V45.89) (Z98.62) Hyperlipidemia (272.4) (E78.5) Hypertension (401.9) (I10) Morbid obesity (278.01) (E66.01) Dyspnea on exertion (786.09) (R06.09) Arteriosclerosis of coronary artery in patient with history of myocardial infarction (414.00,412) (I25.10,I25.2) Angina, class III (413.9) (I20.9) Encounter to discuss test results (V65.49) (Z71.2) Stage 3b chronic kidney disease (585.3) (N18.32) Orders Atherosclerosis of [place] coronary artery of [place] heart with angina pectoris, Chest pain, Diabetes, Hyperlipidemia Hemoglobin A1C; Status:Active - Retrospective Authorization; Requested for:10Sep2023; Atherosclerosis of [place] coronary artery of the [place] heart with angina pectoris, History of angioplasty, Hyperlipidemia Complete Blood Count; Status:Active - Retrospective Authorization; Requested for:10Sep2023; Atherosclerosis of [place] coronary artery of [place] heart with angina pectoris, Hyperlipidemia Lipid Panel; Status:Active - Retrospective Authorization; Requested for:10Sep2023; Morbid obesity Healthy Weight Tips; Status:Complete - Retrospective Authorization; Done: 10Apr2023 Some eating tips that can help you lose weight.; Status:Complete - Retrospective Authorization; Done: 10Apr2023 Patient Instructions Please bring all medicines, vitamins, and herbal supplements with you when you come to the office. Prescriptions will not be filled unless you are compliant with your follow up appointments or have a follow up appointment scheduled as per instruction of your physician. Refills should be requested at the time of your visit. Follow up in 6 months Chief Complaint NAMRATA JACK is being seen for follow-up of a hospitalization for. History of Present Illness Patient with multiple comorbidities, some of which involve morbid obesity obstructive sleep apnea Long history of diabetes atherosclerotic the [place] vessel coronary artery disease angina pectoris functional class II sedentary lifestyle chronic lower extremity edema, presents for follow-up after cardiac catheterization. Technically challenging procedure, due to body habitus, right radial access unsuccessful. Reports feeling reasonably well, no issues pertaining to the right groin, no swelling tenderness, right radial pulse strong to palpation today, no vascular compromise. Continues to have anginal symptoms takes sublingual nitroglycerin occasionally, pattern is stable, usually with activity. Sometimes with emotional distress. Was examined in the wheelchair. Patient's health insurance nurse increased furosemide temporarily to 40 mg p.o. twice daily, and then patient says there was no improvement in lower extremity edema, her feet do not look much swollen to me, currently on 40 mg daily, BMP shows GFR in the 30s. Potassium is within normal limits No symptoms of hypoglycemia. Cardiac catheterization findings were reviewed, patient has moderate coronary artery disease, and also subtotal occlusion of the distal LAD proximal segment followed by a tortuous underfilled diffusely diseased relatively small caliber LAD. LVEF is normal discussed with Dr. Fink my interventional colleague, decision is to continue medical therapy as the risk benefit does not favor proceeding with an intervention. On 03/16/2023 glucose was 242 creatinine 1.38 GFR 42. Assessment: 1. 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 Morbid obesity 3. Diabetes mellitus, insulin-dependent 4. Difficulty with ambulation-predominantly gets around in the wheelchair 5. Echocardiogram November 2021-LVEF 60 to 65%, impaired diastolic filling, aortic sclerosis, RV systolic pressure 26 mmHg, TAPSE 2.2 cm, left atrial volume index 41 mL per metered square. 6. Left heart catheterization May 2019-right femoral approach-right dominant, normal left main, multiple stents overlapping mid LAD, patent, first diagonal branch 0% stenosis left circumflex nondominant, 1 major obtuse marginal branch, 50% proximal stenosis in the obtuse marginal branch, RCA dominant large, multiple stents positioned in the midsegment with no indication of in-stent restenosis LVEF 65% LVEDP 32 mmHg. Report suggested diffuse typical diabetic coronary artery disease patient was hypertensive 7. Patient's most recent PCI was to the distal RCA and that was done in April 2017 8. History of diverticulosis 9. History of back surgery cholecystectomy 10. Anaphylaxis to iodinated contrast 11. Cardiac catheterization February 2023-LVEF 50% no regional wall motion abnormality in the SALAS view LVEDP 25 to 30 mmHg no systolic gradient across the aortic valve no appreciable mitral regurgitation. Right dominant system with mild diffuse disease, mid RCA 40 to 50% smooth stenosis left main 20% stenosis left circumflex relatively large 50% to 60%ostial stenosis 50% first and major obtuse marginal branch proximal LAD 40% stenosis entire mid LAD is stented, with patent stent distal LAD subtotally occluded with CORINA II distal flow distal LAD diffusely calcified diagonal branch is small, diagonal branch fills retrograde from the distal LAD IFR of ostial circumflex was recommended by Dr. Fink, functionally ostial circumflex was not significant. We have a patient with class II/III angina pectoris with multiple comorbidities, and chronic diastolic heart failure hypertensive and diabetic kidney disease. Recommendations: I suggested that we add oral nitrates, she declined, says she is already on too many medications and does not want to add any more. She cannot participate in cardiac rehab habilitation because her mobility is still restricted. She also has a blistering rash in the left leg, for which she sees primary care/dermatology. Aggressive risk factor modification and medical therapy will be recommended. Follow-up in August 2023 with comprehensive profile lipid profile and hemoglobin A1c prior to visit. Regular follow-up with primary care and endocrinology. Patient was present during this visit. Surgical History Problems History of Appendectomy History of Back surgery History of Cataract surgery History of Cholecystectomy History of Complete colonoscopy History of Eye surgery History of Hernia repair History of Hysterectomy History of Knee surgery History of Neck surgery History of Percutaneous transluminal coronary angioplasty History of Sinus surgery Current Meds Medication NameInstruction amLODIPine Besylate 5 MG Oral TabletTAKE 1 TABLET DAILY. Aspirin EC 81 MG TBECTAKE 1 TABLET DAILY. Clopidogrel Bisulfate 75 MG Oral TabletTAKE 1 TABLET DAILY. Cyclobenzaprine HCl - 10 MG Oral TabletTAKE 1 TABLET DAILY NEEDED. Docusate Sodium 100 MG Oral CapsuleTAKE 1 CAPSULE Daily Furosemide 40 MG Oral TabletTake 1 tablet daily Levemir SOLNINJECT SUBCUTANEOUSLY EVERY 12 HOURS DIRECTED. Losartan Potassium 100 MG Oral TabletTAKE 1 TABLET DAILY. Metoprolol Tartrate 50 MG Oral TabletTAKE 1 TABLET TWICE DAILY. Nitroglycerin 0.4 MG Sublingual Tablet SublingualPL[address] 1 TABLET UNDER THE TONGUE EVERY 5 MINUTES FOR UP TO 3 DOSES NEEDED FOR CHEST PAIN.CALL 911 IF PAIN PERSISTS. [place] 10-325 MG TABSTAKE 1 TABLET EVERY 4 TO 6 HOURS NEEDED FOR PAIN. NovoLOG SOLNUSE DIRECTED Oxybutynin Chloride 5 MG Oral TabletTake 1 tablet twice daily Potassium Chloride Fabiana ER 20 MEQ Oral Tablet Extended ReleaseTAKE 1 TABLET DAILY. Ranolazine ER 500 MG Oral Tablet Extended Release 12 HourTAKE 1 TABLET Every twelve hours Rosuvastatin Calcium 40 MG Oral TabletTAKE 1 TABLET DAILY. Sertraline HCl - 50 MG Oral TabletTAKE 1 TABLET DAILY DIRECTED. Vitamin B Complex Oral CapsuleTAKE 1 CAPSULE Daily Vitamin C 1000 MG Oral TabletTAKE 1 TABLET DAILY. Vitamin D3 50 MCG (2000 UT) Oral CapsuleTAKE 1 CAPSULE Daily Zolpidem Tartrate 5 MG Oral TabletTAKE 1 TABLET AT BEDTIME NEEDED. Patient did not bring medication list or bottles. Updated verbally with patient Allergies Medication Penicillins Recorded By: Lety Gann; 03/03/2023 2:35:46 PM NonMedication IV Contrast Dye Allergy; Anaphylaxis;; Updated By: Reba Zambrano; 03/06/2023 11:28:08 AM Social History Problems Daily caffeine consumption OCCASSIONAL Never a smoker No alcohol use No illicit drug use Review of Systems Constitutional: not feeling tired. Cardiovascular: no intermittent leg claudication and as noted in HPI. Respiratory: no cough and no shortness of breath. Gastrointestinal: no change in bowel habits and no blood in stools. Integumentary: no skin rashes. Neurological: no seizures and no frequent falls. All other systems have been reviewed and are negative for complaint. Constitutional: Denies: fever, chills, malaise Eye: Denies: discharge from eyes, eye pain, changes in vision HEENT: Denies: headache, nasal discharge, sore throat, ear pain Gastrointestinal: Denies: nausea, vomiting, diarrhea, abdominal pain Integument: Denies: rash, itching, new skin lesions Neurologic: Denies: muscular weakness, tingling, numbness, tremors, loss of balance Endocrine: Denies: polyuria, polydipsia, cold intolerance, heat intolerance Psychiatric: Denies: anxiety, depression, suicidal ideation Heme -lymph: Denies: easy bruising, petechia, lymph node enlargement, or tenderness Remaining ROS is negative, noncontributory, or as previously mentioned. Vitals Vital Signs Recorded: 10Apr2023 02:45PM Heart Rate60, L Radial [id number], LUE, Sitting [id number], LUE, Sitting Height5 ft 3 in Height or Weight NOT DoneMedical Reason Not Done Physical Exam GENERAL: Well developed, well nourished, in no acute distress. CHEST: Symmetrical and non-tender. NEURO/PSYCH: Alert and oriented x 3; appropriate behavior and responses. NECK: Supple, no JVD, no bruit. LUNGS: Clear to auscultation bilaterally, normal respiratory effort. HEART: Rate and rhythm regular with no evident murmur; no gallop appreciated. There are no rubs, clicks or heaves. EXTREMITIES: Warm with good color, no clubbing or cyanosis. red blistery rash left lower leg. PERIPHERAL VASCULAR: Femoral and Pedal pulses present and equally palpable; 2+ throughout. physical exam done in motorized chair. Signatures Electronically signed by : Joceline Ortega MD; Apr 10 2023 6:29PM EST (Author) DISCHARGE SUMMARY Observed: 03/16/2023 9:50 AM Status: COMPLETED Source: [facility] REPOSITORY Send Summary: Discharge Summary Providers: Provider RoleProvider Name AttendingMoJoceline luna ReferringJoceline Ortega Robert L Note Recipients: Latrice Perez MD - [id number] [] Joceline Ortega MD - [id number] [preferred] Discharge: Summary: Admission Date: .15-Mar-2023 11:17:00 Discharge Date: 16-Mar-2023 Attending Physician at Discharge: Joceline Ortega Admission Reason: angina, class 3 Final Discharge Diagnoses: Angina, class III Procedures: Date: 15-Mar-2023 16:49:00 Procedure Name: LHC/Cors/LVgram/IFR of left Circumflex Condition at Discharge: Satisfactory Disposition at Discharge: .Home Vital Signs: T PRBPMAPSpO2 [id number]% Date/Time03/16 8: 8: 8: 8: 8: 8:00 Range(35.9C - 36.3C ) (46 - 49 ) (16 - 18 ) (142 - 185 )/ (63 - 77 ) (91 - 111 ) (92% - 96% ) As of 15-Mar-2023 21:47:00, patient is on 2 L/min of oxygen via nasal cannula. Date: Weight/Scale Type:Height: 15-Mar-2023 12:77546.6 kg 159.8 cm Hospital Course: 67-year-old female with history of class III angina admitted 03/15/2023 for elective left heart catheterization with Dr. Ortega. Initially attempted right radial procedure without success, then went to right femoral approach. See cardiac cath report per Dr. Ortega. Plan for medical management. At this time patient denies discomfort right groin. Pressure dressing removed. No hematoma or bleeding noted at site. Bilateral pedal pulses palpable. Patient to follow-up with Dr. Ortega in 3 to 4 weeks in the [place] office. Post procedure potential complication, activity restrictions, medications, and follow up reviewed with patient. Total time for discharge 36 minutes. Discharge Information: and Continuing Care: Lab Results - Pending: None Radiology Results - Pending: None Discharge Instructions: . Follow Up Appointments: Follow-Up Appointment 01: Physician/Dept/Service: Dr Ortega Scheduled Date/Time: 10-Apr-2023 14:30 Location: [facility] Discharge Medications: Home Medication amLODIPine 5 mg oral tablet - 1 tab(s) orally once a day Aspirin Enteric Coated 81 mg oral delayed release tablet - 1 tab(s) orally once a day Benadryl Allergy 25 mg oral tablet - 1 tab(s) orally 3 times a day before heart cath clopidogrel 75 mg oral tablet - 1 tab(s) orally once a day docusate sodium 100 mg oral capsule - 1 cap(s) orally once a day furosemide 40 mg oral tablet - 1 tab(s) orally once a day losartan 100 mg oral tablet - 1 tab(s) orally once a day Metoprolol Tartrate 50 mg oral tablet - 1 tab(s) orally 2 times a day oxyBUTYnin 5 mg oral tablet - 1 tab(s) orally 2 times a day potassium chloride 20 mEq oral tablet, extended release - 1 tab(s) orally once a day ranolazine 500 mg oral tablet, extended release - 1 tab(s) orally 2 times a day rosuvastatin 40 mg oral tablet - 1 tab(s) orally once a day sertraline 50 mg oral tablet - 1 tab(s) orally once a day Vitamin B-100 oral tablet - 1 tab(s) orally once a day Vitamin C 1000 mg oral tablet - 1 tab(s) orally once a day Vitamin D3 50 mcg (2000 intl units) oral capsule - 1 cap(s) orally once a day Levemir 100 units/mL subcutaneous solution - 50 subcutaneous 2 times a day NovoLOG 100 units/mL subcutaneous solution - 40 subcutaneous 3 times a day (with meals) In addition to sliding scale NovoLOG 100 units/mL subcutaneous solution - 20 unit(s) subcutaneous once a day (at bedtime) In addition to sliding scale PRN Medication zolpidem 5 mg oral tablet - 1 tab(s) orally once a day (at bedtime), As Needed Nitrostat 0.4 mg sublingual tablet - 1 tab(s) sublingual every 5 minutes, As Needed [place] 10 mg-325 mg oral tablet - 1 tab(s) orally every 4 hours, As Needed cyclobenzaprine 10 mg oral tablet - 1 tab(s) orally once a day, As Needed DNR Status: Code StatusCode Status order at time of discharge: Full Code Electronic Signatures: Beth Taylor ([employer] [facility]) (Signed 16-Mar-2023 10:00) Authored: Send Summary, Summary Content, Ongoing Care, DNR Status, Note Completion Last Updated: 16-Mar-2023 10:00 by Beth Taylor ([employer] [facility]) ORDER RECONCILIATION Observed: 3 8:40 AM Status: UNK Source: [facility] REPOSITORY Page 1 Discharge Reconciliation Document Reconciliation Type: Discharge requested on behalf of Beth Taylor (Advanced Practice Nurse) done by Beth Taylor ([employer] [facility]) Discharge - Reconciliation: 16-Mar-2023 08:40 by: Beth Taylor ([employer]ODUCTION [employer]NER SCHEDULER) Home Medications EnteredHOME MEDICATIONS AT DISCHARGE DateReconciliation Comment/ Additional Information amLODIPine 5 mg oral tablet 1 tab(s) orally once a day 14-Mar-2023 09:39 amLODIPine 5 mg oral tablet 1 tab(s) orally once a day 14-Mar-2023 09:39 amLODIPine 5 mg oral tablet is continued as amLODIPine 5 mg oral tablet Aspirin Enteric Coated 81 mg oral delayed release tablet 1 tab(s) orally once a day 14-Mar-2023 09:40 Aspirin Enteric Coated 81 mg oral delayed release tablet 1 tab(s) orally once a day 14-Mar-2023 09:40 Aspirin Enteric Coated 81 mg oral delayed release tablet is continued as Aspirin Enteric Coated 81 mg oral delayed release tablet Benadryl Allergy 25 mg oral tablet 1 tab(s) orally 3 times a day before heart cath 14-Mar-2023 09:40 Benadryl Allergy 25 mg oral tablet 1 tab(s) orally 3 times a day before heart cath 14-Mar-2023 09:40 Benadryl Allergy 25 mg oral tablet is continued as Benadryl Allergy 25 mg oral tablet clopidogrel 75 mg oral tablet 1 tab(s) orally once a day 14-Mar-2023 09:40 clopidogrel 75 mg oral tablet 1 tab(s) orally once a day 14-Mar-2023 09:40 clopidogrel 75 mg oral tablet is continued as clopidogrel 75 mg oral tablet cyclobenzaprine 10 mg oral tablet 1 tab(s) orally once a day, As Needed 14-Mar-2023 09:41 cyclobenzaprine 10 mg oral tablet 1 tab(s) orally once a day, As Needed 14-Mar-2023 09:41 cyclobenzaprine 10 mg oral tablet is continued as cyclobenzaprine 10 mg oral tablet docusate sodium 100 mg oral capsule 1 cap(s) orally once a day 14-Mar-2023 09:41 docusate sodium 100 mg oral capsule 1 cap(s) orally once a day 14-Mar-2023 09:41 docusate sodium 100 mg oral capsule is continued as docusate sodium 100 mg oral capsule famotidine 20 mg oral tablet 1 tab(s) orally 2 times a day before heart cath 14-Mar-2023 09:41 Discontinued; Discontinue from ORM famotidine 20 mg oral tablet is not required furosemide 40 mg oral tablet 1 tab(s) orally once a day 14-Mar-2023 09:42 furosemide 40 mg oral tablet 1 tab(s) orally once a day 14-Mar-2023 09:42 furosemide 40 mg oral tablet is continued as furosemide 40 mg oral tablet Levemir 100 units/mL subcutaneous solution 50 subcutaneous 2 times a day 15-Mar-2023 12:19 Levemir 100 units/mL subcutaneous solution 50 subcutaneous 2 times a day 15-Mar-2023 12:19 Levemir 100 units/mL subcutaneous solution is continued as Levemir 100 units/mL subcutaneous solution losartan 100 mg oral tablet 1 tab(s) orally once a day 14-Mar-2023 09:42 losartan 100 mg oral tablet 1 tab(s) orally once a day 14-Mar-2023 09:42 losartan 100 mg oral tablet is continued as losartan 100 mg oral tablet Metoprolol Tartrate 50 mg oral tablet 1 tab(s) orally 2 times a day 14-Mar-2023 09:42 Metoprolol Tartrate 50 mg oral tablet 1 tab(s) orally 2 times a day 14-Mar-2023 09:42 Metoprolol Tartrate 50 mg oral tablet is continued as Metoprolol Tartrate 50 mg oral tablet Nitrostat 0.4 mg sublingual tablet 1 tab(s) sublingual every 5 minutes, As Needed 14-Mar-2023 09:42 Nitrostat 0.4 mg sublingual tablet 1 tab(s) sublingual every 5 minutes, As Needed 14-Mar-2023 09:42 Nitrostat 0.4 mg sublingual tablet is continued as Nitrostat 0.4 mg sublingual tablet [place] 10 mg-325 mg oral tablet 1 tab(s) orally every 4 hours, As Needed 14-Mar-2023 09:43 [place] 10 mg-325 mg oral tablet 1 tab(s) orally every 4 hours, As Needed 14-Mar-2023 09:43 [place] 10 mg-325 mg oral tablet is continued as [place] 10 mg-325 mg oral tablet NovoLOG 100 units/mL subcutaneous solution 20 unit(s) subcutaneous once a day (at bedtime) In addition to sliding scale 15-Mar-2023 17:05 NovoLOG 100 units/mL subcutaneous solution 20 unit(s) subcutaneous once a day (at bedtime) In addition to sliding scale 15-Mar-2023 17:05 NovoLOG 100 units/mL subcutaneous solution is continued as NovoLOG 100 units/mL subcutaneous solution NovoLOG 100 units/mL subcutaneous solution 40 subcutaneous 3 times a day (with meals) In addition to sliding scale 15-Mar-2023 17:02 NovoLOG 100 units/mL subcutaneous solution 40 subcutaneous 3 times a day (with meals) In addition to sliding scale 15-Mar-2023 17:02 NovoLOG 100 units/mL subcutaneous solution is continued as NovoLOG 100 units/mL subcutaneous solution oxyBUTYnin 5 mg oral tablet 1 tab(s) orally 2 times a day 14-Mar-2023 09:43 oxyBUTYnin 5 mg oral tablet 1 tab(s) orally 2 times a day 14-Mar-2023 09:43 oxyBUTYnin 5 mg oral tablet is continued as oxyBUTYnin 5 mg oral tablet potassium chloride 20 mEq oral tablet, extended release 1 tab(s) orally once a day 14-Mar-2023 09:44 potassium chloride 20 mEq oral tablet, extended release 1 tab(s) orally once a day 14-Mar-2023 09:44 potassium chloride 20 mEq oral tablet, extended release is continued as potassium chloride 20 mEq oral tablet, extended release predniSONE 20 mg oral tablet 1 tab(s) orally 3 times a day before heart cath 14-Mar-2023 09:44 Discontinued; Discontinue from ORM predniSONE 20 mg oral tablet is not required ranolazine 500 mg oral tablet, extended release 1 tab(s) orally 2 times a day 14-Mar-2023 09:44 ranolazine 500 mg oral tablet, extended release 1 tab(s) orally 2 times a day 14-Mar-2023 09:44 ranolazine 500 mg oral tablet, extended release is continued as ranolazine 500 mg oral tablet, extended release rosuvastatin 40 mg oral tablet 1 tab(s) orally once a day 14-Mar-2023 09:45 rosuvastatin 40 mg oral tablet 1 tab(s) orally once a day 14-Mar-2023 09:45 rosuvastatin 40 mg oral tablet is continued as rosuvastatin 40 mg oral tablet sertraline 50 mg oral tablet 1 tab(s) orally once a day 14-Mar-2023 09:45 sertraline 50 mg oral tablet 1 tab(s) orally once a day 14-Mar-2023 09:45 sertraline 50 mg oral tablet is continued as sertraline 50 mg oral tablet Vitamin B-100 oral tablet 1 tab(s) orally once a day 14-Mar-2023 09:45 Vitamin B-100 oral tablet 1 tab(s) orally once a day 14-Mar-2023 09:45 Vitamin B-100 oral tablet is continued as Vitamin B-100 oral tablet Vitamin C 1000 mg oral tablet 1 tab(s) orally once a day 14-Mar-2023 09:45 Vitamin C 1000 mg oral tablet 1 tab(s) orally once a day 14-Mar-2023 09:45 Vitamin C 1000 mg oral tablet is continued as Vitamin C 1000 mg oral tablet Vitamin D3 50 mcg (2000 intl units) oral capsule 1 cap(s) orally once a day 14-Mar-2023 09:46 Vitamin D3 50 mcg (2000 intl units) oral capsule 1 cap(s) orally once a day 14-Mar-2023 09:46 Vitamin D3 50 mcg (2000 intl units) oral capsule is continued as Vitamin D3 50 mcg (2000 intl units) oral capsule zolpidem 5 mg oral tablet 1 tab(s) orally once a day (at bedtime), As Needed 14-Mar-2023 09:46 zolpidem 5 mg oral tablet 1 tab(s) orally once a day (at bedtime), As Needed 14-Mar-2023 09:46 zolpidem 5 mg oral tablet is continued as zolpidem 5 mg oral tablet Current OrdersDateHOME MEDICATIONS AT DISCHARGE DateReconciliation Comment/ Additional Information Acetaminophen Tablet (TYLENOL)DOSE = 650 mg Oral Every 6 Hours, PRN Pain - Mild (1-3) 15-Mar-2023 15:58 Acetaminophen is not required amLODIPine (NORVASC) TabletDOSE = 5 mg Oral Daily 15-Mar-2023 16:05 amLODIPine (NORVASC) is not required Aspirin Enteric Coated Enteric Coated Tablet (ECOTRIN)DOSE = 81 mg Oral Daily 15-Mar-2023 16:05 Aspirin Enteric Coated is not required Clopidogrel Tablet (PLAVIX)DOSE = 75 mg Oral Daily 15-Mar-2023 16:05 Clopidogrel is not required Cyclobenzaprine Tablet (FLEXERIL)DOSE = 10 mg Oral Daily, PRN spasm 15-Mar-2023 16:05 Cyclobenzaprine is not required Dextrose 50% in Water Injectable DOSE = 25 gram(s) IntraVenous Push Every 15 Minutes, PRN Blood Glucose 70 mg/dL or LESS & HAS IV access;Clinician Notes: IF patient HAS a secure IV access & is Unconscious, Conscious, NPO or Unable to Eat or Drink. R 15-Mar-2023 17:58 Dextrose 50% in Water Injectable is not required Docusate Capsule (COLACE)DOSE = 100 mg Oral Daily 15-Mar-2023 16:05 Docusate is not required Furosemide Tablet (LASIX)DOSE = 40 mg Oral Daily 15-Mar-2023 16:05 Furosemide is not required Glucagon Injectable DOSE = 1 mg IntraMuscular Every 15 Minutes, PRN Blood Glucose 70 mg/dL or LESS & NO IV accessClinician Notes: IF patient DOES NOT have secure IV access & is Unconscious, Conscious, NPO or Unable to Eat or Drink. Repeat until BG r 15-Mar-2023 17:58 Glucagon Injectable is not required HYDROcodone 10 mg - Acetaminophen 325 mg Tablet (NORCO)DOSE = 1 tablet(s) Oral Every 4 Hours, PRN Pain - Mod (4-6) 15-Mar-2023 16:05 HYDROcodone 10 mg - Acetaminophen 325 mg is not required Insulin Detemir (Levemir) Injectable - PEDS in Syringe (Total Volume) 0.5 mLDOSE = 50 unit(s) SubCutaneous Inj 2 Times a DayNotes from Pharmacy: Concentration = 100 units/mLRCRA 15-Mar-2023 16:05 Insulin Detemir (Levemir) Injectable - PEDS is not required Insulin Lispro (HumaLOG) Injectable (HUMALOG)DOSE = 40 unit(s) SubCutaneous 3 Times a Day Before MealsNotes from Pharmacy: RC 15-Mar-2023 17:56 Insulin Lispro (HumaLOG) Injectable is not required Losartan Tablet (COZAAR)DOSE = 100 mg Oral Daily 15-Mar-2023 16:05 Losartan is not required Metoprolol Tartrate Tablet (LOPRESSOR)DOSE = 50 mg Oral 2 Times a Day 15-Mar-2023 16:05 Metoprolol Tartrate is not required Oxybutynin - PEDS TabletDOSE = 5 mg Oral 2 Times a Day 15-Mar-2023 16:05 Oxybutynin - PEDS is not required Potassium Chloride Extended Release Tablet, Extended ReleaseDOSE = 20 mEq Oral Daily 15-Mar-2023 16:05 Potassium Chloride Extended Release is not required Ranolazine Tablet, Extended Release (RANEXA)DOSE = 500 mg Oral 2 Times a Day 15-Mar-2023 16:05 Ranolazine is not required Rosuvastatin Tablet (CRESTOR)DOSE = 40 mg Oral Daily 15-Mar-2023 16:05 Rosuvastatin is not required Sertraline Tablet (ZOLOFT)DOSE = 50 mg Oral Daily 15-Mar-2023 16:05 Sertraline is not required Zolpidem Tablet (AMBIEN)DOSE = 5 mg Oral At Bedtime, PRN Insomnia 15-Mar-2023 16:05 Zolpidem is not required All Active Home Medications at time of Discharge Reconciliation: 16-Mar-2023 08:40 amLODIPine 5 mg oral tablet 1 tab(s) orally once a day Aspirin Enteric Coated 81 mg oral delayed release tablet 1 tab(s) orally once a day Benadryl Allergy 25 mg oral tablet 1 tab(s) orally 3 times a day before heart cath clopidogrel 75 mg oral tablet 1 tab(s) orally once a day cyclobenzaprine 10 mg oral tablet 1 tab(s) orally once a day, As Needed docusate sodium 100 mg oral capsule 1 cap(s) orally once a day furosemide 40 mg oral tablet 1 tab(s) orally once a day Levemir 100 units/mL subcutaneous solution 50 subcutaneous 2 times a day losartan 100 mg oral tablet 1 tab(s) orally once a day Metoprolol Tartrate 50 mg oral tablet 1 tab(s) orally 2 times a day Nitrostat 0.4 mg sublingual tablet 1 tab(s) sublingual every 5 minutes, As Needed [place] 10 mg-325 mg oral tablet 1 tab(s) orally every 4 hours, As Needed NovoLOG 100 units/mL subcutaneous solution 20 unit(s) subcutaneous once a day (at bedtime) In addition to sliding scale NovoLOG 100 units/mL subcutaneous solution 40 subcutaneous 3 times a day (with meals) In addition to sliding scale oxyBUTYnin 5 mg oral tablet 1 tab(s) orally 2 times a day potassium chloride 20 mEq oral tablet, extended release 1 tab(s) orally once a day ranolazine 500 mg oral tablet, extended release 1 tab(s) orally 2 times a day rosuvastatin 40 mg oral tablet 1 tab(s) orally once a day sertraline 50 mg oral tablet 1 tab(s) orally once a day Vitamin B-100 oral tablet 1 tab(s) orally once a day Vitamin C 1000 mg oral tablet 1 tab(s) orally once a day Vitamin D3 50 mcg (2000 intl units) oral capsule 1 cap(s) orally once a day zolpidem 5 mg oral tablet 1 tab(s) orally once a day (at bedtime), As Needed DAILY PROGRESS NOTE-CARDIOLOGY Observed: 03/16/2023 8:31 AM Status: COMPLETED Source: [facility] REPOSITORY Service: Cardiology Subjective Data: NAMRATA JACK is a 67 year old Female who is Hospital Day # 2. MRS JACK IS DOING MUCH BETTER TODAY, NO CHEST PAIN OR DYSPNEA, SHE HAS BEEN UP IN THE ROOM AND USES A CANE NORMALLY IS AT HER NORM AT THIS TIME. Objective Data: Objective Information: T PRBPMAPSpO2 [id number]% Date/Time03/16 8: 8: 8: 8: 8: 8:00 Range(35.9C - 36.3C ) (46 - 49 ) (16 - 18 ) (142 - 185 )/ (63 - 77 ) (91 - 111 ) (92% - 96% ) As of 15-Mar-2023 21:47:00, patient is on 2 L/min of oxygen via nasal cannula. Pain reported at 03/15 21:45: 5 = Moderate Physical Exam by System: Constitutional: obese female , awake/alert/oriented x3, no distress, alert and cooperative Eyes: PERRL, EOMI, clear sclera ENMT: mucous membranes moist, no apparent injury, no lesions seen Head/Neck: Neck supple, no apparent injury, thyroid without mass or tenderness, No JVD, trachea midline, no bruits Respiratory/Thorax: Patent airways, CTAB, normal breath sounds with good chest expansion, thorax symmetric Cardiovascular: Regular, rate and rhythm, no murmurs, 2+ equal pulses of the extremities, normal S 1and S 2 Gastrointestinal: Nondistended, soft, non-tender, no rebound tenderness or guarding, no masses palpable, no organomegaly, +BS, no bruits Musculoskeletal: ROM intact, no joint swelling, normal strength Extremities: normal extremities, no cyanosis edema, contusions or wounds, no clubbing Neurological: alert and oriented x3, intact senses, motor, response and reflexes, normal strength Lymphatic: No significant lymphadenopathy Psychological: Appropriate mood and behavior Skin: Warm and dry, no lesions, no rashes Medication: Medications: Continuous Medications No continuous medications are active Scheduled Medications 1. amLODIPine (NORVASC): 5 mg Oral Daily 2. Docusate: 100 mg Oral Daily 3. Furosemide: 40 mg Oral Daily 4. Insulin Detemir (Levemir) Injectable - PEDS: 50 unit(s) SubCutaneous Inj 2 Times a Day 5. Insulin Lispro (HumaLOG) Injectable: 40 unit(s) SubCutaneous 3 Times a Day Before Meals 6. Losartan: 100 mg Oral Daily 7. Metoprolol Tartrate: 50 mg Oral 2 Times a Day 8. Oxybutynin - PEDS: 5 mg Oral 2 Times a Day 9. Potassium Chloride Extended Release: 20 mEq Oral Daily 10. Ranolazine: 500 mg Oral 2 Times a Day 11. Rosuvastatin: 40 mg Oral Daily 12. Sertraline: 50 mg Oral Daily PRN Medications 1. Acetaminophen: 650 mg Oral Every 6 Hours 2. Cyclobenzaprine: 10 mg Oral Daily 3. Dextrose 50% in Water Injectable: 25 gram(s) IntraVenous Push Every 15 Minutes 4. Glucagon Injectable: 1 mg IntraMuscular Every 15 Minutes 5. HYDROcodone 10 mg - Acetaminophen 325 m tablet(s) Oral Every 4 Hours 6. Zolpidem: 5 mg Oral At Bedtime Currently Suspended Medications 1. Aspirin Enteric Coated: 81 mg Oral Daily 2. Clopidogrel: 75 mg Oral Daily Recent Lab Results: Results: BMP: 03/16/2023 04:24 NA+ Cl- BUN / 138 103 34 H / Glucose 242 H K+ HCO3- Creat \ 4.1 29 1.38 H \ Calcium : 8.5 L Anion Gap : 10 I have reviewed these laboratory results: Glucose_POCT Trending View [id number] 06:49:00 15-Mar-2023 21:30:00 Glucose-[id number] H 236 H Basic Metabolic Panel 16-Mar-2023 04:24:00 ResultValue Glucose, Serum 242 H NA 138 K 4.1 CL 103 Bicarbonate, Serum 29 Anion Gap, Serum 10 BUN 34 H CREAT 1.38 H GFR Female 42 A Calcium, Serum 8.5 L Activated Clotting Time Low Range Trending View [id number] 14:43:00 15-Mar-2023 14:33:00 15-Mar-2023 14:31:00 Activated Clotting Time-Low [id number] H 221 H 69 L Radiology Results: Results: No Results have been selected. Please select Results from the Available Results list before marking as Reviewed. Conclusion: CONCLUSIONS: 1. Right dominant system. Right coronary artery arises from the right sinus of Valsalva. There is 20% diffuse disease, in addition the mid RCA has about 40 to 50% smooth stenosis. Posterior descending artery and posterolateral ventricular branch have mild luminal irregularities Left main coronary artery arises from the left sinus of Valsalva, bifurcates into the left anterior descending artery and the left circumflex artery Left circumflex artery is a relatively large. Ostium of this vessel has 50% stenosis first and major obtuse marginal branch has 50 to 60% ostial stenosis the AV groove left circumflex artery has 20% stenosis and gives off relatively small distal branches. ProximalLAD has 40% stenosis the entire mid LAD is deep stented, stents are patent. 2. There is mild diffuse disease throughout the proximal and mid LAD. The distal LAD has subtotal occlusion, and CORINA II distal flow. 3. The entire distal LAD is suboptimally visualized, diffusely calcified, and has areas of 99% stenosis. Septal perforators have diffuse disease diagonal branches are small in fact her diagonal branch is seen to fill retrograde from the distal LAD. 4. Visually estimated left ventricular ejection fraction is about 50%. No regional wall motion abnormality is apparent in the SALAS view. LV end-diastolic pressure is elevated at 25 to 30 mmHg, no systolic gradient across the aortic valve. No appreciable mitral regurgitation. Selective right common femoral angiography shows that the access is in the common femoral artery above its bifurcation. Patient underwent IFR of the ostial circumflex, based on IFR criteria lesion was not functionally significant. ____ CPT Codes: Left Heart Cath (visualization of coronaries) and LV-42399; Moderate Sedation Services initial 15 minutes patient >5 years-62320; Moderate Sedation Services 1st additional 15 minutes patient >5 years-95795; Moderate Sedation Services 2nd additional 15 minutes patient >5 years-30826; Moderate Sedation Services 3rd additional 15 minutes patient >5 years-66979; Complicated/Unusual Procedure-MOD22; Angiography, Extremity,uni,S&I (PER)-83192; FFR, initial Vessel (PCI)-58346 ICD 10 Codes: I25.111-Atherosclerotic heart disease of the [place] coronary artery with angina pectoris with documented spasm [id number] Joceline Ortega MD Performing Physician cc Report to: JOCELINE ORTEGA cc Report to: [id number] Joceline Ortega MD cc Report to: Chris Final Cardiac Catheterization Lab Procedures [Mar 15 2023 7:01PM] Assessment and Plan: Comorbidities: ComorbidityOther Code Status: Code StatusFull Code Impression 1: CAD, DIFFUSE DISTAL LAD 99% WITH COLLATERALS TO THE D1 Impression 2: HYPERTENSION Impression 3: DYSLIPIDEMIA Impression 4: DIABETES Impression 5: CKD Attestation: Note Completion: I am a: Advanced Practice Provider Attending Only - Shared Visit with Advanced Practice ProviderThis is a shared visit. I have reviewed the Advanced Practice Providers encounter note, approve the Advanced Practice Providers documentation, and provide the following additional information from my personal encounter. Comments/ Additional Findings . Electronic Signatures: Coreen Joya (DYED RAW STOCK BLOWER FEEDER-PRODUCTION PLANNER SCHEDULER) (Signed 16-Mar-2023 08:45) Authored: Service, Subjective Data, Objective Data, Assessment and Plan, Note Completion Last Updated: 22-Mar-2023 08:19 by Alberta Pichardo (DATA QUAL ASST) GLUCOSE-POCT Collected: 3 6:49 AM Status: F Source: [facility] REPOSITORY TYPE CODE TESTS RESULT OUT OF RANGE REFERENCE UNITS LAB GLUP(LOINC) GLUCOSE-POCT 179 High 74 - 99 mg/dL Performed By: #### GLUPO ### # [address] [id number] BASIC METABOLIC PANEL Collected: 2022 4:24 AM Status: F Source: [facility] REPOSITORY TYPE CODE TESTS RESULT OUT OF RANGE REFERENCE UNITS LAB GLU(LOINC) GLUCOSE 242 High 74 - 99 mg/dL LAB SOD(LOINC) SODIUM 138 136 - 145 mmol/L LAB K(LOINC) POTASSIUM 4.1 3.5 - 5.3 mmol/L LAB CHLOR(LOINC) CHLORIDE 103 98 - 107 mmol/L LAB BIC(LOINC) BICARBONATE 29 21 - 32 mmol/L LAB ANGAP(LOINC) ANION GAP 10 10 - 20 mmol/L LAB UREA(LOINC) UREA NITROGEN 34 High 6 - 23 mg/dL LAB CREA(LOINC) CREATININE 1.38 High 0.50 - 1.05 mg/dL LAB GFRF(LOINC) eGFR FEMALE 42 Abnormal >90 mL/min/ 1.73m2 Result Comment: CALCULATIONS OF ESTIMATED GFR ARE PERFORMED USING THE 2020 CKD-EPI STUDY REFIT EQUATION WITHOUT THE RACE VARIABLE FOR THE IDMS-TRACEABLE CREATININE METHODS. https://jasn.asnjournals.org/content//09/22/ASN.3014619082 LAB CA(LOINC) CALCIUM 8.5 Low 8.6 - 10.3 mg/dL Performed By: #### BMP #### [address] [id number] GLUCOSE-POCT Collected: 9:30 PM Status: F Source: [facility] REPOSITORY TYPE CODE TESTS RESULT OUT OF RANGE REFERENCE UNITS LAB GLUP(LOINC) GLUCOSE-POCT 236 High 74 - 99 mg/dL Performed By: #### GLUPO ### # [address] [id number] DISCHARGE PROFILE2 Observed: 03/15/2023 6:23 PM Status: UNK Source: [facility] REPOSITORY Discharge Orders: DNAR: Code Status at Discharge: Full Code Hospital Course (Home Care/Gold Form): Hospital Course: Hospital Course: include significant abnormal lab values 67-year-old female with history of class III angina admitted 03/15/2023 for elective left heart catheterization with Dr. Ortega. Initially attempted right radial procedure without success, then went to right femoral approach. See cardiac cath report per Dr. Ortega. Plan for medical management. At this time patient denies discomfort right groin. Pressure dressing removed. No hematoma or bleeding noted at site. Bilateral pedal pulses palpable. Patient to follow-up with Dr. Ortega in 3 to 4 weeks in the [place] office. Post procedure potential complication, activity restrictions, medications, and follow up reviewed with patient. Total time for discharge 36 minutes. Provider FINAL REVIEW of Orders: Final Review: Final Review of Medication Reconciliation and Orders Completedby DYED RAW STOCK BLOWER FEEDER Reviewing ProviderAmy ARELY Taylor at 16-Mar-2023 09:59:48 Appointments: Follow-Up Appointment 01: Physician/Dept/Americo Ortega Scheduled Date/[id number]-[id number] 14:30 [facility] office Phone [phone] Electronic Signatures: Beth Taylor (ARELY) (Signed 16-Mar-2023 09:59) Authored: Discharge Orders, Hospital Course (Home Care/Gold Form), Provider FINAL REVIEW of Orders, Appointments, Gold Form - Mathematics Education Professor Summary Last Updated: 16-Mar-2023 09:59 by Beth Taylor (SINA-DEVAN) POST PROCEDURE NOTE - NOT IN OR-LHC/CORS/LVGRAM/IFR OF LEFT Observed: 03/15/2023 4:49 PM Status: COMPLETED Source: [facility] REPOSITORY Pre-procedure Verification a nd Time Out: Pre-Procedure Verification and Time Out: Procedure Locationprocedure area HUDDLE - Pre-procedure Verificationcompleted TIME OUT - Final Verificationcompleted immediately prior to procedure start DEBRIEFcompleted General Information: Anesthesia Critical Care: Non-Anesthesia Date/Time of Procedure: 15-Mar-2023 Post-Procedure Diagnosis: Codominant system.RCA 20 to 30%.LMCA 0%.LAD extensively stented distal LAD close to LV apex subtotal then totalLarge Left Circ with ostial 50%,major OM with ostial 50%,LVedp high at 25 to 30mm Hg.LVef 55%. Ostial left Circ IFR 1.00 Angioseal RFA Watch for delayed contrast allergy.bed rest for 6 hours.High risk of groin bleed.DC in am( pt lives an hour away ,morbidly obese) Discussed with Beth Taylor Procedure Name: LHC/Cors/LVgram/IFR of left Circumflex Findings: as above Procedure performed by: me Professor Of Theater(s): none Estimated Blood Loss (mL): 20cc Specimen: no Indication(s): CAD,Class 3 angina Informed Consent: written consent obtained Electronic Signatures: Joceline Ortega) (Signed 15-Mar-2023 16:55) Authored: Pre-procedure Verification and Time Out, General Information, Note Completion Last Updated: 15-Mar-2023 16:55 by Joceline Ortega) HISTORY AND PHYSICAL - SURGICAL UPDATE < 30 DAYS Observed: 03/15/2023 4:48 PM Status: COMPLETED Source: [facility] REPOSITORY History & Physical Reviewed: I have reviewed the History and Physical dated: 06-Mar-2023 History and Physical reviewed and relevant findings noted. Patient examined to review pertinent physical findings.: No significant changes Home Medications Reviewed: changes noted Allergies Reviewed: no changes noted Airway/Sedation Assessment: Oropharyngeal ClassificationClass III ASA PS ClassificationASA III Sedation Planmoderate sedation ERAS (Enhanced Recovery After Surgery): ERAS Patient: no Consent: COVID-19 Consent: COVID-19 Risk ConsentSurgeon has reviewed da silva risks related to the risk of jolly COVID-19 and if they contract COVID-19 what the risks are. Electronic Signatures: Joceline Ortega) (Signed 15-Mar-2023 16:49) Authored: History & Physical Reviewed, Airway/Sedation, ERAS, Consent, Note Completion Last Updated: 15-Mar-2023 16:49 by Joceline Ortega) CLINICAL EVENT NOTE-LEFT HEART CATH?EDIPHONE OPERATOR NOTE Observed: 03/15/2023 4:16 PM Status: UNK Source: [facility] REPOSITORY Clinical Event: Clinical Event Note: TopicLeft heart cathNP note Details Results of left heart catheterization discussed with patient and patient's . Per Dr. Ortega, patient will remain on bedrest x6 hours and be monitored overnight. Patient had oozing from right groin site, manual pressure held, and pressure bandage applied. Follow-up with Dr. Ortega in 3 to 4 weeks in [facility] office Electronic Signatures: Beth Taylor (DYED RAW STOCK BLOWER FEEDER-[facility]) (Signed 15-Mar-2023 16:18) Authored: Clinical Event Note Last Updated: 15-Mar-2023 16:18 by Beth Taylor (DYED RAW STOCK BLOWER FEEDER-[facility]) ORDER RECONCILIATION Observed: 4:05 PM Status: UNK Source: [facility] REPOSITORY Page 1 Admission Reconciliation Document Reconciliation Type: Admission requested on behalf of Beth Taylro (Advanced Practice Nurse) done by Beth Taylor (DYED RAW STOCK BLOWER FEEDER-[facility]) Admission - Reconciliation: 15-Mar-2023 16:05 by: Beth Taylor (DYED RAW STOCK BLOWER FEEDER-PRODUCTION PLANNER SCHEDULER) Admission - Reset to Incomplete: 15-Mar-2023 17:54 by: Beth Taylor (DYED RAW STOCK BLOWER FEEDER-PRODUCTION PLANNER SCHEDULER) Admission - Reconciliation: 15-Mar-2023 17:56 by: Beth Taylor (DYED RAW STOCK BLOWER FEEDER-PRODUCTION PLANNER SCHEDULER) Home MedicationsEnteredLast Dose TakenReconciled with current Order Reconciliation Comment/ Additional Information amLODIPine 5 mg oral tablet 1 tab(s) orally once a [id number] 7:00 AM amLODIPine (NORVASC) TabletDOSE = 5 mg Oral DailyamLODIPine 5 mg oral tablet continued as the inpatient order amLODIPine (NORVASC) Aspirin Enteric Coated 81 mg oral delayed release tablet 1 tab(s) orally once a [id number] 7:00 AM Aspirin Enteric Coated Enteric Coated Tablet (ECOTRIN)DOSE = 81 mg Oral DailyAspirin Enteric Coated 81 mg oral delayed release tablet continued as the inpatient order Aspirin Enteric Coated Benadryl Allergy 25 mg oral tablet 1 tab(s) orally 3 times a day before heart [id number] 7:00 AM Reviewed and Held clopidogrel 75 mg oral tablet 1 tab(s) orally once a [id number]-Mar-2023 7:00 AM Clopidogrel Tablet (PLAVIX)DOSE = 75 mg Oral Daily clopidogrel 75 mg oral tablet continued as the inpatient order Clopidogrel cyclobenzaprine 10 mg oral tablet 1 tab(s) orally once a day, As Needed [id number] PM Cyclobenzaprine Tablet (FLEXERIL)DOSE = 10 mg Oral Daily, PRN spasmcyclobenzaprine 10 mg oral tablet continued as the inpatient order Cyclobenzaprine docusate sodium 100 mg oral capsule 1 cap(s) orally once a [id number]-Mar-2023 PM Docusate Capsule (COLACE)DOSE = 100 mg Oral Dailydocusate sodium 100 mg oral capsule continued as the inpatient order Docusate famotidine 20 mg oral tablet 1 tab(s) orally 2 times a day before heart cath [id number] 7:00 AM Famotidine Tablet (PEPCID)DOSE = 20 mg Oral 2 Times a DayStop After 2 Dosesfamotidine 20 mg oral tablet continued as the inpatient order Famotidine furosemide 40 mg oral tablet 1 tab(s) orally once a [id number] 7:00 AM Furosemide Tablet (LASIX)DOSE = 40 mg Oral Dailyfurosemide 40 mg oral tablet continued as the inpatient order Furosemide Levemir 100 units/mL subcutaneous solution 50 subcutaneous 2 times a day [id number] PM Insulin Detemir (Levemir) Injectable - PEDS in Syringe (Total Volume) 0.5 mLDOSE = 50 unit(s) SubCutaneous Inj 2 Times a DayNotes from Pharmacy: Concentration = 100 units/mLRCRALevemir 100 units/mL subcutaneous solution continued as the inpatient order Insulin Detemir (Levemir) Injectable - PEDS losartan 100 mg oral tablet 1 tab(s) orally once a [id number] 7:00 AM Losartan Tablet (COZAAR)DOSE = 100 mg Oral Dailylosartan 100 mg oral tablet continued as the inpatient order Losartan Metoprolol Tartrate 50 mg oral tablet 1 tab(s) orally 2 times a [id number]-Mar-2023 7:00 AM Metoprolol Tartrate Tablet (LOPRESSOR)DOSE = 50 mg Oral 2 Times a DayMetoprolol Tartrate 50 mg oral tablet continued as the inpatient order Metoprolol Tartrate Nitrostat 0.4 mg sublingual tablet 1 tab(s) sublingual every 5 minutes, As [id number]-5995 Reviewed and Held [place] 10 mg-325 mg oral tablet 1 tab(s) orally every 4 hours, As Needed [id number] PM HYDROcodone 10 mg - Acetaminophen 325 mg Tablet (NORCO)DOSE = 1 tablet(s) Oral Every 4 Hours, PRN Pain - Mod (4-6)[place] 10 mg-325 mg oral tablet continued as the inpatient order HYDROcodone 10 mg - Acetaminophen 325 mg NovoLOG 100 units/mL subcutaneous solution 20 unit(s) subcutaneous once a day (at bedtime) In addition to sliding -[id number] Insulin Lispro (HumaLOG) Injectable (HUMALOG)DOSE = 40 unit(s) SubCutaneous 3 Times a Day Before MealsNovoLOG 100 units/mL subcutaneous solution continued as the inpatient order Insulin Lispro (HumaLOG) Injectable NovoLOG 100 units/mL subcutaneous solution 40 subcutaneous 3 times a day (with meals) In addition to sliding [id number]-5512 PM Reviewed and Held NovoLOG 100 units/mL subcutaneous solution 40 units subcutaneous with sliding scale coverage [id number]-7113 PM Discontinued; Copy / Discontinue Reviewed and Held oxyBUTYnin 5 mg oral tablet 1 tab(s) orally 2 times a [id number]-Tim-601415-Mar-2023 7:00 AM Oxybutynin - PEDS TabletDOSE = 5 mg Oral 2 Times a Day oxyBUTYnin 5 mg oral tablet continued as the inpatient order Oxybutynin - PEDS potassium chloride 20 mEq oral tablet, extended release 1 tab(s) orally once a [id number]-[id number]-6736 7:00 AM Potassium Chloride Extended Release Tablet, Extended ReleaseDOSE = 20 mEq Oral Dailypotassium chloride 20 mEq oral tablet, extended release continued as the inpatient order Potassium Chloride Extended Release predniSONE 20 mg oral tablet 1 tab(s) orally 3 times a day before heart cath [id number] 7:00 AM Reviewed and Held ranolazine 500 mg oral tablet, extended release 1 tab(s) orally 2 times a day [id number] 7:00 AM Ranolazine Tablet, Extended Release (RANEXA)DOSE = 500 mg Oral 2 Times a Dayranolazine 500 mg oral tablet, extended release continued as the inpatient order Ranolazine rosuvastatin 40 mg oral tablet 1 tab(s) orally once a olp23-Zsk-072815-Mar-2023 PM Rosuvastatin Tablet (CRESTOR)DOSE = 40 mg Oral Daily rosuvastatin 40 mg oral tablet continued as the inpatient order Rosuvastatin sertraline 50 mg oral tablet 1 tab(s) orally once a [id number]-0210 7:00 AM Sertraline Tablet (ZOLOFT)DOSE = 50 mg Oral Dailysertraline 50 mg oral tablet continued as the inpatient order Sertraline Vitamin B-100 oral tablet 1 tab(s) orally once a [id number]-[id number]-9799 7:00 AM Reviewed and Held Vitamin C 1000 mg oral tablet 1 tab(s) orally once a [id number]-Kap-061515-Mar-2023 7:00 AM Reviewed and Held Vitamin D3 50 mcg (2000 intl units) oral capsule 1 cap(s) orally once a day [id number] 7:00 AM Reviewed and Held zolpidem 5 mg oral tablet 1 tab(s) orally once a day (at bedtime), As Needed [id number]-2154 PM Zolpidem Tablet (AMBIEN)DOSE = 5 mg Oral At Bedtime, PRN Insomniazolpidem 5 mg oral tablet continued as the inpatient order Zolpidem Additional Current Orders Acetaminophen Tablet (TYLENOL)DOSE = 650 mg Oral Every 6 Hours, PRN Pain - Mild (1-3) ACT-LOW RANGE Collected: 3 2:43 PM Status: F Source: [facility] REPOSITORY TYPE CODE TESTS RESULT OUT OF RANGE REFERENCE UNITS LAB ACTL(LOINC) ACT-LOW RANGE 226 High 89 - 169 SECONDS Result Comment: Note new ref erence range as of 02/01/2019. Target ACT range will vary based on the patient population, clinical status, and surgical intervention occurring. Performed By: #### ACTLR ### # [address] [id number] ACT-LOW RANGE Collected: 3 2:33 PM Status: F Source: [facility] REPOSITORY TYPE CODE TESTS RESULT OUT OF RANGE REFERENCE UNITS LAB ACTL(LOINC) ACT-LOW RANGE 221 High 89 - 169 SECONDS Result Comment: Note new ref erence range as of 02/01/2019. Target ACT range will vary based on the patient population, clinical status, and surgical intervention occurring. Performed By: #### ACTLR ### # [address] [id number] ACT-LOW RANGE Collected: 3 2:31 PM Status: F Source: [facility] REPOSITORY TYPE CODE TESTS RESULT OUT OF RANGE REFERENCE UNITS LAB ACTL(LOINC) ACT-LOW RANGE 69 Low 89 - 169 SECONDS Result Comment: Note new ref erence range as of 02/01/2019. Target ACT range will vary based on the patient population, clinical status, and surgical intervention occurring. Performed By: #### ACTLR ### # [address] [id number] LEFT HEART CATHETERIZATION Observed: 1:01 PM Status: F Source: [facility], Rehabilitation Therapy Aide [address] [place] [address] Cardiovascular Catheterization Report Patient Name: NAMRATA JACK Performing Physician: Omari Ortega MD Study Date: 03/15/2023 Verifying Physician: Omari Ortega MD MRN/PID: [id number] Remote Coders: Accession/Order#: [id number] Referring Physician: JOCELINE ORTEGA Date of : 1955 Referring Physician: Chris Gender: F Referring Physician: [id number] Joceline Ortega MD Study: Left Heart Catheterization Indications: NAMRATA JACK is a 67 year old female who presents with dyslipidemia, hypertension, diabetes, tobacco Use - never and obesity. Worsening angina, new onset angina <=2 months and stable known coronary artery disease, with a chest pain assessment of typical angina. Study performed as an elective cath procedure. Medical History: Stress test performed: No. CTA performed: No. Osei accessed: No. LVEF Assessed: No. Procedure Description: After infiltration with 2% Lidocaine, the right femoral artery was cannulated with a modified Seldinger technique. Subsequently a 5 Togolese sheath was placed in the right femoral artery. Selective coronary catheterization was performed using a 5 Fr catheter(s) exchanged over a guide wire to cannulate the coronary arteries. A JL 4 tip catheter was used for left coronary injections. A 3DRC tip catheter was used for right coronary injections. Multiple injections of contrast were made into the left and right coronary arteries with angiograms recorded in multiple projections. Retrograde left heart catheterizion was accomplished with a 5 Fr. pigtail catheter. A single plane left ventriculogram was recorded in the 30 degree SALAS projection. The contrast dose was 20 ml injected at 10 ml/sec. The catheter was then withdrawn across the aortic valve under continuous pressure monitoring and removed. After completion of the procedure, femoral artery angiography was performed. This demonstrated a common femoral artery puncture appropriate for closure. An Angio-Seal VIP 6F ([employer]) vascular closure device was placed per protocol. Coronary Angiography: The coronary circulation is co-dominant. Additional Findings: This is a technically challenging study. Initial attempt for right radial access was unsuccessful. At that time the right groin access was chosen. Micropuncture technique was used. Single anterior percutaneous stick was used. All catheters were exchanged over a 0.035 guidewire. In order to perform IFR, initially 5 Togolese guide catheter was tried, but the catheter would not selectively engage the left main coronary artery and was removed. The procedure was started again, with 6 Togolese system. The right femoral sheath had to be changed to a 6 Togolese sheath, and a 6 Togolese guide catheter was advanced, the flow wire had to be recalibrated, and there was also difficulty navigating the FloWire into the obtuse marginal branch. There were technical challenges with the Angio-Seal hemostatic device because of extensive soft tissue in the groin area. Amplatz Super Stiff wire was used. Multiple dilatations were performed before the Angio-Seal device would advance. Hemo Personnel: + + + Name Duty + + + Joceline Ortega MD PROC MD 1 + + + Tejal Alexandra RT PROC SCRUB 1 + + + Vilma Sheffield RN PROC SCRUB 2 + + + Du Vera RN PROC CIRC 1 + + + Susan Santa RN PROC CIRC 2 + + + Melissa Hodges RT PROC RECORD 1 + + + Vivi Bedoya RN PROC NURSE 1 + + + Sedation Time: + + + Sedation Start/End Times Time + + + Start 03/15/2023 13:45:45 + + + Drugs Fentanyl 50 mcg IV per physician for sed + + + Equipment Used: + + + Date/Time Description + + + 03/15/2023 1:45:38 PM {5 Fr Catheter} - 5F Jose Alejandro Optitorque Catheter 110CM - Qty: 1 Each Part #: 61 + + + 03/15/2023 1:59:49 PM {Sheath} - 5F Merit Stiffened Micropuncture Kit BX/10 - Qty: 1 Each Part #: 1393 + + + 03/15/2023 1:59:54 PM {Sheath} - 5F [place] Sheath w/ Wire - Qty: 1 Each Part #: 1401 + + + 03/15/2023 2:06:49 PM {5 Fr Catheter} - 5F 3DRC - Qty: 1 Each Part #: 24 + + + 03/15/2023 2:07:04 PM {5 Fr Catheter} - 5F JL4 Infiniti - Qty: 1 Each Part #: 35 + + + 03/15/2023 2:07:12 PM {5 Fr Catheter} - 5F Pigtail Angled 145 Infiniti - Qty: 1 Each Part #: 47 + + + 03/15/2023 2:13:02 PM {Closure Device} - Angio-Seal 6F Closure VIP Plus - Qty: 1 Each Part #: 395 + + + 03/15/2023 2:27:30 PM {5 Fr Coronary Guide Catheter} - 5F JL4 LBT Peytona Brite - Qty: 1 Each Part #: 51 + + + 03/15/2023 2:31:47 PM Bunch IFR wire + + + 03/15/2023 2:43:21 PM {6 Fr Coronary Guide Catheter} - 6F JL3.5 Peytona Brite Tip - Qty: 1 Each Part #: 84 + + + 03/15/2023 2:43:29 PM {Interventional Wires} - .014 Runthrough NS 180cm - Qty: 1 Each Part #: 858 + + + 03/15/2023 2:51:46 PM {Diagnostic Wires} - .035 Amplatz Super Stiff 180cm - Qty: 1 Each Part #: 469 + + + Hemodynamic Pressures: +----+ +---------+ + +------+---------+ Site Date Time Phase Systolic Diastolic ED Mean mmHg Name mmHg mmHg mmHg +----+ +---------+ + +------+---------+ AO 03/15/2023 2:08:26 AIR REST 137 76 102 PM +----+ +---------+ + +------+---------+ LV 03/15/2023 2:17:02 AIR REST 173 23 28 PM +----+ +---------+ + +------+---------+ LV 03/15/2023 2:17:18 AIR REST 170 29 34 PM +----+ +---------+ + +------+---------+ LVp 03/15/2023 2:18:01 AIR REST 162 52 64 PM +----+ +---------+ + +------+---------+ AO 03/15/2023 2:30:08 AIR REST 157 73 108 PM +----+ +---------+ + +------+---------+ Complications: No in-lab complications observed. Cardiac Cath Transition of Care Summary: Post Procedure Diagnosis: Double vessel disease. Blood Loss: Estimated blood loss during the procedure was 20cc mls. Specimens Removed: Number of specimen(s) removed: none. Recommendations: Maximize medical therapy. Agressive risk factor modification efforts. Follow-up with cardiology clinic. Follow-up with primary care physician. Anti-platelet therapy with Dual antiplatelet therapy and Clopidogrel (Plavix) 75mg daily. Lipid lowering agent or Statin therapy. Medical management of coronary artery disease. Beta maria esther therapy. ____ CONCLUSIONS: 1. Right dominant system. Right coronary artery arises from the right sinus of Valsalva. There is 20% diffuse disease, in addition the mid RCA has about 40 to 50% smooth stenosis. Posterior descending artery and posterolateral ventricular branch have mild luminal irregularities Left main coronary artery arises from the left sinus of Valsalva, bifurcates into the left anterior descending artery and the left circumflex artery Left circumflex artery is a relatively large. Ostium of this vessel has 50% stenosis first and major obtuse marginal branch has 50 to 60% ostial stenosis the AV groove left circumflex artery has 20% stenosis and gives off relatively small distal branches. Proximal LAD has 40% stenosis the entire mid LAD is deep stented, stents are patent. 2. There is mild diffuse disease throughout the proximal and mid LAD. The distal LAD has subtotal occlusion, and CORINA II distal flow. 3. The entire distal LAD is suboptimally visualized, diffusely calcified, and has areas of 99% stenosis. Septal perforators have diffuse disease diagonal branches are small in fact her diagonal branch is seen to fill retrograde from the distal LAD. 4. Visually estimated left ventricular ejection fraction is about 50%. No regional wall motion abnormality is apparent in the SALAS view. LV end-diastolic pressure is elevated at 25 to 30 mmHg, no systolic gradient across the aortic valve. No appreciable mitral regurgitation. Selective right common femoral angiography shows that the access is in the common femoral artery above its bifurcation. Patient underwent IFR of the ostial circumflex, based on IFR criteria lesion was not functionally significant. ____ CPT Codes: Left Heart Cath (visualization of coronaries) and LV-37287; Moderate Sedation Services initial 15 minutes patient >5 years-57445; Moderate Sedation Services 1st additional 15 minutes patient >5 years-30390; Moderate Sedation Services 2nd additional 15 minutes patient >5 years-43302; Moderate Sedation Services 3rd additional 15 minutes patient >5 years-88238; Complicated/Unusual Procedure- MOD22; Angiography, Extremity,uni,MAYRA (PER)-08386; FFR, initial Vessel (PCI)-18895 ICD 10 Codes: I25.111-Atherosclerotic heart disease of the [place] coronary artery with angina pectoris with documented spasm [id number] Joceline Ortega MD Performing Physician cc Report to: JOCELINE ORTEGA cc Report to: [id number] Joceline Ortega MD cc Report to: Hardin Final ELECTROCARDIOGRAM 12 LEAD Observed: 02/27 12:37 PM Status: F Source: [facility] REPOSITORY Ventricular Rate 51 Atrial Rate 51 P-R Interval 176 QRS Duration 86 Q-T Interval 494 QTC Calculation(Bazett) 455 P Uehling -15 R Uehling -10 T Uehling 47 QRS Count 8 Q Onset 218 P Onset 130 P Offset 185 T Offset 465 QTC Fredericia 468 Diagnosis Class Borderline Abnormal Diagnosis Sinus bradycardia Otherwise normal ECG No previous ECGs available Confirmed by Thierry Mishra ([id number]) on 03/16/2023 11:11:46 PM PATIENT PROFILE - PREOP V3 Observed: 12:00 PM Status: UNK Source: [facility] REPOSITORY Patient Profile - Preop: Initial Info: Patient DemographicsName: NAMRATA JACK Date: 1955 Address: [address] [place] [address] Primary Phone [phone] How to be AddressedSharon Spoken Language PreferredEnglish Source of Informationpatient Stated Reason for Admissionheart cath Primary Contact Name and NumberSteve [phone] Medications Brought to Hospitalno General Health: Weight in kg145.6 kilogram(s) Weight in gly437.9 pound(s) Weight Methodactual (measured) Scale Typestanding Height in feet5 feet Height in inches2.95 inch(es) Height in cm159.8 centimeter(s) Height Methodstated BMI (kg/m2)57.017 square meter Patient or Family Member Reaction to Anesthesiapatient reaction Patient Reaction to Anesthesianausea and vomiting Blood Avoidance/Restrictionsnone Previous Transfusion Reactionno Health Mgmt: Symptoms/Conditions Managed at Homecardiovascular; endocrine; gastrointestinal; neurological; respiratory; skin; behavioral health; chronic pain; peripheral/neurovascular Behavioral Health Symptoms/Conditionsdepression; anxiety Cardiovascular Symptoms/Conditionshypertension Cardiovascular Symptoms/Conditions Commentdyslipidemia, PCI Endocrine Symptoms/Conditionsdiabetes Gastrointestinal Symptoms/Conditionsreflux/heartburn; constipation Gastrointestinal Symptoms/Conditions Commentdiverticulitis Neurological Symptoms/Conditionsmigraines Neurological Symptoms/Conditions CommentTIA Chronic Pain Locationlower back Peripheral Neurovascular Symptoms/Conditionsneuropathy Respiratory Symptoms/Conditionssleep disordered breathing Skin Symptoms/Conditionswound Patient Receiving Wound [place] Skin Symptoms/Conditions Commentwill see 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 automatic 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 in two weeks for left lower leg wound Barriers to Managing Healthnone Relationship/Environ: Lives Withspouse Living Arrangementshouse Resource/Environmental Concernsnone Anticipated Transition [place] Services Anticipated at Transitionnone Tobacco Use: Tobacco Useno Pre-op Checklist: Arrival [id number] Arrival Time11:17 Procedure Typeheart cath NPOyes Last Food [id number]-Oxq-5199 07:00 ID Band On Patientpatient ID (name), allergy, falls risk Consent Signedyes H&P Completeyes Anesthesia Assessment Completedpending EKG Performedyes Chest X-Ray Performednot ordered Preop Antibioticsnot ordered Type and Screen Resultedn/a HCG Urine TestN/A Chlorhexadine Bath Givennot applicable Nasal Antiseptic Appliednot applicable Soap and Water Bath the Night Before Surgerynot applicable Hair Washed with Shampoonot applicable Bowel Prepno Surgical Site Infection Preventionyes Pain Scales and Managementyes Additional Information: Information Review: Allergies, Home Meds and Significant Events have been Reviewed and Verified with Patient/Familyyes Allergy, Intolerance, Adverse Event: Allergies: contrast (specific type unknown): Contrast, Anaphylaxis, Active penicillin: Drug, Unknown, Active Electronic Signatures: Vivi Bedoya) (Signed 15-Mar-2023 12:11) Authored: Initial Info, General Health, Health Mgmt, Relationship/Environ, Tobacco Use, Pre-op Checklist, Additional Information Last Updated: 15-Mar-2023 12:11 by Vivi Bedoya) COMPLETE BLOOD COUNT AUTO DIFF Collected: 03/08/2023 8:48 AM Status: F Source: F [facility] REPOSITORY TYPE CODE TESTS RESULT OUT OF RANGE REFERENCE UNITS LAB WBC White Blood Count 8.1 Normal 3.8-11.6 10*3/uL LAB UNWBC Uncorrected WBC 8.1 Normal 3.8-11.6 10*3/uL LAB RBC Red Blood Count 4.21 Normal 3.60-5.00 LAB HGB Hemoglobin 13.0 Normal 11.8-15.4 g/dL LAB HCT Hematocrit 39.3 Normal 34.0-46.4 % LAB MCV Mean Corpuscular Volume 93.2 Normal 80-100 fL LAB MCH Mean Corpuscular Hemoglobin 31.0 Normal 24.7-34.3 pg LAB MCHC Mean Corpuscular HGB Conc 33.2 Normal 32.0-35.0 g/dL LAB RDW Red Cell Distribution Width 13.8 Normal 11.9-15.3 % LAB PLT Platelet Count 311 Normal 150-450 10*3/uL LAB MPV Mean Platelet Volume 7.3 Normal 6.3-10.7 fL LAB NE% Neutrophils % (Auto) 61.7 . % LAB LY% Lymphocytes % (Auto) 26.6 . % LAB MO% Monocytes % (Auto) 6.8 . % LAB EO% Eosinophils % (Auto) 4.0 . % LAB BA% Basophils % (Auto) 0.9 . % LAB NRBC% NRBC% 0.1 Normal 0-0.5 /100{WBC } LAB NE# Neutrophils # (Auto) 5.0 Normal 1.8-7.7 10*3/uL LAB LY# Lymphocytes # (Auto) 2.1 Normal 1.00-4.8 10*3/uL LAB MO# Monocytes # (Auto) 0.5 Normal 0.0-0.8 10*3/uL LAB EO# Eosinophils # (Auto) 0.3 Normal 0.0-0.45 10*3/uL LAB BA# Basophils # (Auto) 0.1 Normal 0.0-0.2 10*3/uL Result Comment: PERFORMED BY : [place] [address] PATHOLOGIST SALESPERSON HOSIERY XAVIER AGARWAL M.D. Performed By: #### LIPID, CB C, BMP, PT #### [place] [id number] [facility] PROTHROMBIN TIME INR Collected: 8:48 AM Status: F Source: [facility] REPOSITORY TYPE CODE TESTS RESULT OUT OF RANGE REFERENCE UNITS LAB R PT Prothrombin Time 11.7 Normal 9.0-12.9 s LAB INR INR 1.0 Result Comment: INR Therapeu tic Range A) Pre- and Peroperative OAT started two weeks before surgery. NOT HIP SURGERY: 1.5 - 2.5 HIP SURGERY: 2 - 3 B) Primary and secondary prevention of venous THROMBOSIS: 2 - 3 C) Active venous thrombosis, pulmonary embolism and prevention of recurrent venous thrombosis: 2 - 3 D) Prevention of arterial thromboembolism including patients with mechanical heart valves: 3 - 4.5 PERFORMED BY: [place] [address] PATHOLOGIST SALESPERSON HOSIERY XAVIER AGARWAL M.D. Performed By: #### LIPID, CB C, BMP, PT #### [place] [id number] [facility] BASIC METABOLIC PANEL Collected: 2022 8:48 AM Status: F Source: [facility] REPOSITORY TYPE CODE TESTS RESULT OUT OF RANGE REFERENCE UNITS LAB GLU Glucose 77 Normal 70-100 mg/dL Result Comment: Random Gluco se Reference Range is dependent on time and content of last meal. Glucose of more than 200 mg/dL in a nonstressed, ambulatory subject supports the diagnosis of Diabetes Mellitus. ADA recommended reference range LAB BUN Blood Urea Nitrogen 22 Normal 7-25 mg/dL LAB CREATT Creatinine 1.05 Normal 0.60-1.20 mg/dL LAB GFReNR Estimated GFR 57.875 LAB NA Sodium 142 Normal 136-145 mmol/L LAB K Potassium 4.0 Normal 3.5-5.1 mmol/L LAB CL Chloride 105 Normal 98-107 mmol/L LAB CO2 Carbon Dioxide 29.6 Normal 21.0-31.0 mmol/L LAB GAP Anion Gap 11.4 Normal 6.0-15.0 LAB CA Calcium 8.6 Normal 8.6-10.3 mg/dL Performed By: #### LIPID, CB C, BMP, PT #### [facility] [address] [place] [place] [id number] [facility] LIPID PANEL Collected: 03/08/2023 8:48 AM Status: F Source: [facility] REPOSITORY TYPE CODE TESTS RESULT OUT OF RANGE REFERENCE UNITS LAB CHOL Cholesterol 140 Normal 140-200 mg/dL Result Comment: Chol less th an 200 mg/dl low risk Chol 201-239 mg/dl borderline risk Chol 240 mg/dl and greater high risk LAB HDL HDL Cholesterol 46 Normal 35-85 mg/dL Result Comment: HDL CHOL ATP -III CLASSIFICATION Cardiovascular Risk HDL > or equal to 60 mg/dL LOW HDL < 40 mg/dL HIGH LAB TRIG W REF Triglyceride w/Reflex 96 Normal 0-149 mg/dL Result Comment: TRIG ATP III CLASSIFICATION TRIG less than 150 mg/dL Normal TRIG 150-199 mg/dL Borderline high TRIG 200-500 mg/dL High TRIG greater than 500 mg/dL Very high Standard traceable to the Center for Disease Conrtrol and Prevention (CDC) test method. LAB LDLC LDL Cholesterol,[place] culated 75 Normal 0-100 mg/dL Result Comment: LDL ATP III CLASSIFICATION LDL less than 100 mg/dL Optimal LDL 100-129 mg/dL Near or above optimal LDL 130-159 mg/dL Borderline high LDL 160-189 mg/dL High LDL greater than 189 mg/dL Very high LAB VLDL VLDL CHOLESTEROL 19 mg/dL LAB CHLHDL Chol/HDL Ratio 3.0 <5.0 Result Comment: PERFORMED BY : [place] [address] PATHOLOGIST SALESPERSON HOSIERY XAVIER AGARWAL M.D. Performed By: #### LIPID, CB C, BMP, PT #### [place] [id number] [facility] XR BONE DENSITY (DEXA) Observed: 023 3:09 PM Status: F Source: [facility] HISTORY: Bone density screen ing. COMPARISON: DEXA 01/16/2019 PROCEDURE: Imaging of the right forearm and bilateral hips was obtained for bone density evaluation. FINDINGS: REGION BMD (g/cm??) YOUNG ADULT T-SCORE AGE-MATCHED Z-SCORE LEFT NECK 0.713 -1.2 0.5 RIGHT NECK 0.762 -0.8 0.9 RIGHT FOREARM 0.597 -1.6 0.3 The mean BMD and corresponding T-score listed above indicate: Osteopenia and places the patient at a mild to moderate increased risk for fracture. There may be a future risk of developing osteoporosis. Recommend follow-up exam in 1 year, sooner as clinically necessary. Comment: The T-score is the primary focus of the interpretation of a patient???s bone mineral density measurement. The T-score is the number of standard deviations and individual is above or below the mean value for a young female having normal bone mass. The WHO defines osteoporosis based on the T-score value: +1.0 to -0.9 : Normal bone mass -1.0 to -2.5 : Osteopenia and thus may be at future risk of fracture. -2.6 to -5.0 : Osteoporosis and at significantly increased risk of fracture. Right forearm bone mineral density change versus previous -0.7%. Hip bone mineral density change versus previous -2.8%. IMPRESSION: OSTEOPENIA : ONE YEAR FOLLOW-UP RECOMMENDED Report reported and signed by Latrice Amaya on 03/07/2023 1619 SCREENING MAMMOGRAM, BILATERAL Observed: 03/07/2023 2:55 PM Status: F Source: [facility] CLINICAL HISTORY: Screening Mammogram COMPARISON: Priors dating back to 2017. TECHNIQUE: 2D and 3D mammogram imaging of both breasts was performed. RESULT: DENSITY: There are scattered areas of fibroglandular density. There is no suspicious mass, asymmetry, architectural distortion, or calcification. No significant change since the prior mammograms. Benign calcifications including vascular calcifications. IMPRESSION: BIRADS 2 : BENIGN FINDINGS, NORMAL INTERVAL FOLLOW UP. FOLLOW-UP: 12 months DENSITY: Scattered MAMMOGRAPHY IS VERY IMPORTANT TO YOUR HEALTH. THE CURRENT [employer] GUIDELINES RECOMMENDS ANNUAL MAMMOGRAPHY BEGINNING AT AGE 39 THIS FACILITY USES A REMINDER SYSTEM TO ENSURE ALL PATIENTS RECEIVE REMINDER NOTIFICATIONS AT THE APPROPRIATE TIME BASED ON THE RECOMMENDATIONS OF THIS EXAM. Board Certified Radiologist. Accredited by the ACR and FDA. Report reported and signed by Oswald Parr on 03/08/2023 1037 OFFICE VISIT (CARDIOLOGY) Observed: 05/2023 10:30 AM Status: UNK Source: [facility] Diagnoses/Problems Assessed Atherosclerosis of the [place] coronary artery of the [place] heart with unstable angina pectoris (414.01,411.1) (I25.110) Hypertension (401.9) (I10) Hyperlipidemia (272.4) (E78.5) Patient new to provider History of angioplasty (V45.89) (Z98.62) Diabetes (250.00) (E11.9) Never a smoker Morbid obesity (278.01) (E66.01) Sleep apnea (780.57) (G47.30) Pre-op testing (V72.84) (Z01.818) Atherosclerosis of the [place] coronary artery of the [place] heart with angina pectoris (414.01,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) Dyspnea on exertion (786.09) (R06.09) Orders Atherosclerosis of the [place] coronary artery of the [place] heart with unstable angina pectoris, Chest pain Start: Benadryl Allergy 25 MG Oral Tablet; Onet tablet three tiems daily for 2 days and the last dose being the morning of the procedure IO EKG Electrocardiogram- 12 Lead; Status:Complete; Done: 06Mar2023 Start: Famotidine 20 MG Oral Tablet; one tablet twice daily for 2 days and the last dose the morning of the procedure Start: Metoprolol Tartrate 50 MG Oral Tablet; TAKE 1 TABLET TWICE DAILY Start: Nitroglycerin 0.4 MG Sublingual Tablet Sublingual; PLACE 1 TABLET UNDER THE TONGUE EVERY 5 MINUTES FOR UP TO 3 DOSES NEEDED FOR CHEST PAIN.CALL 911 IF PAIN PERSISTS Start: predniSONE 20 MG Oral Tablet; one tablet three times daily for 2 days and then the morning of the procedure Start: Ranolazine ER 500 MG Oral Tablet Extended Release 12 Hour; TAKE 1 TABLET Every twelve hours Atherosclerosis of the [place] coronary artery of the [place] heart with unstable angina pectoris, Chest pain, History of angioplasty, Hyperlipidemia Cardiac Catherization; Status:Active - Retrospective Authorization; Requested for:06Mar2023; Atherosclerosis of the [place] coronary artery of the [place] heart with unstable angina pectoris, Chest pain, History of angioplasty, Hyperlipidemia, Pre-op testing Basic Metabolic Panel; Status:Active - Retrospective Authorization; Requested for:06Mar2023; Complete Blood Count; Status:Active - Retrospective Authorization; Requested for:06Mar2023; Lipid Panel; Status:Active - Retrospective Authorization; Requested for:06Mar2023; PT/INR; Status:Active - Retrospective Authorization; Requested for:06Mar2023; Morbid obesity Healthy Weight Tips; Status:Complete - Retrospective Authorization; Done: 06Mar2023 Some eating tips that can help you lose weight.; Status:Complete - Retrospective Authorization; Done: 06Mar2023 SocHx: Never a smoker Tobacco Use Screening; Status:Complete; Done: 06Mar2023 Unlinked Stop: Metoprolol Tartrate 25 MG Oral Tablet Patient Instructions Please bring all medicines, vitamins, and herbal supplements with you when you come to the office. Prescriptions will not be filled unless you are compliant with your follow up appointments or have a follow up appointment scheduled as per instruction of your physician. Refills should be requested at the time of your visit. FALL PREVENTION EDUCATION GIVEN Nitro sent to [employer] [facility] increase Metoprolol Tartrate to 50mg twice daily Start Ranexa 500mg twice daily Cardiac cath with dye allergy prep reviewed with patient. skip sliding scale insulin the night prior, half normal dose of insulin the morning of the procedure, clear liquid breakfast by 8AM. take Aspirin and plavix morning of procedure. labs provided today to be completed at facility. iodine /dye allergy , prednisone, benadryl and pepcid rx sent to pharmacy. Follow-up after testing completed Chief Complaint NAMRATA JACK is being seen for NPT CAD/ CHEST PAIN. History of Present Illness 68-year-old is new to this provider, being seen in cardiology consultation at the request of Dr. Peerz regarding atherosclerotic the [place] vessel coronary artery disease and chest discomfort. Patient reports having chest discomfort over the last 1-1/2 weeks to 2 weeks. She is predominantly wheelchair-bound, but also ambulates with a cane, today she is examined in the wheelchair. She has been under tremendous situational stress, and she is quite tearful. Her accompanies her to the office. She has lived in this particular house for 50 years, but they are in the process of getting ready to move to [place] to be closer to patient's son. This has reported significant amount of situational stress. Patient has morbid obesity. Activity level is very limited because of degenerative joint disease and aches and pains everywhere. She is an insulin requiring diabetic hypertensive dyslipidemic, she remains on dual antiplatelet therapy, she has anaphylactic response to iodinated contrast. Any form of testing will be challenging in her case because of her body habitus. Noninvasive testing is likely to be unhelpful, moreover her symptoms are very compelling and she has history of atherosclerotic the [place] vessel coronary artery disease and the symptoms remind her about her prior angina pectoris. The symptoms are described as an anterior pressure, moderate in intensity, exacerbated by activity and sometimes by emotional stress. The chest discomfort is associated with shortness of breath. EKG today shows sinus rhythm at 66 bpm WA interval 190 ms QRS duration 80 ms QTc 463 ms. Most recent laboratory data is from April 2022, at which time hemoglobin was 14 hematocrit 42 Assessment: 1. 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 Morbid obesity 3. Diabetes mellitus, insulin-dependent 4. Difficulty with ambulation-predominantly gets around in the wheelchair 5. Echocardiogram November 2021-LVEF 60 to 65%, impaired diastolic filling, aortic sclerosis, RV systolic pressure 26 mmHg, TAPSE 2.2 cm, left atrial volume index 41 mL per metered square. 6. Left heart catheterization May 2019-right femoral approach-right dominant, normal left main, multiple stents overlapping mid LAD, patent, first diagonal branch 0% stenosis left circumflex nondominant, 1 major obtuse marginal branch, 50% proximal stenosis in the obtuse marginal branch, RCA dominant large, multiple stents positioned in the midsegment with no indication of in-stent restenosis LVEF 65% LVEDP 32 mmHg. Report suggested diffuse typical diabetic coronary artery disease patient was hypertensive 7. Patient's most recent PCI was to the distal RCA and that was done in April 2017 8. History of diverticulosis 9. History of back surgery cholecystectomy 10. Anaphylaxis to iodinated contrast Recommendations: 1. Patient with multiple risk factors including diabetes prior multivessel stenting morbid obesity presents with crescendo angina pectoris. EKG does not show any dynamic ST-T abnormality at this time, patient is chest pain-free in the office at this time. 2. Her body habitus makes it very difficult for noninvasive testing, and quality of testing either invasive or noninvasive may be affected. 3. Cardiac catheterization is preferable, rationale for cardiac catheterization and possible intervention was discussed. Procedure, risks, benefits, and alternatives were discussed. Procedure was explained to patient in layman's terms ie the catheters would be introduced under local anesthetic via the right groin or the right radial approach, and under x-ray guidance catheters would be positioned in the coronary arteries and pictures would be taken. This will be followed by opening up of blockages using balloon tipped catheters, followed by placement of stents within the arteries. Each stent is described as a metal scaffolding that keeps the artery open . Risks discussed included, but were not limited to [place], stroke, , peripheral vascular compromise, allergic reaction to dye, bleeding complications, and kidney injury. The very rare occurrence of needing emergency coronary artery bypass grafting was also discussed. When the procedure is done at in a facility that does not do coronary artery bypass grafting on site, the patient would be transferred to a facility that has bypass capability. Patient expressed understanding and agrees to the procedure. We will plan right radial approach, right femoral if clinically warranted. Patient should avoid any food for 6 hours prior to the procedure. Patient should take medications as prescribed with sips of water. If procedure is scheduled after , a light breakfast such as tea and toast or crackers is allowed before 7 am.. Patient should not stop aspirin ,Brilinta or Plavix if they are on these medications. 4. To improve antianginal therapy we will increase the metoprolol to tartrate to 50 mg p.o. twice daily 5. Start Ranexa 500 mg p.o. twice daily if cost is not prohibitive 6. Premedicate for allergy to contrast with prednisone Pepcid and Benadryl. 7. Obtain blood work to include comprehensive profile lipid profile CBC PT/INR 8. Patient should skip sliding scale insulin the night before procedure, and in the a.m. of procedure she should take half the usual dose of insulin. 9. If symptoms escalate while awaiting additional testing, she understands that she needs to seek prompt medical attention. I am avoiding p.o. nitrates at this time because of her history of migraine headaches. Thank you for allowing us to participate. Namrata's care, please do not hesitate to call if further questions arise, Sincerely, Joceline Ortega MD [facility] *Active Problems Problems Atherosclerosis of the [place] coronary artery of the [place] heart with unstable angina pectoris (414.01,411.1) (I25.110) Diabetes (250.00) (E11.9) Dyspnea on exertion (786.09) (R06.09) Esophageal reflux (530.81) (K21.9) History of angioplasty (V45.89) (Z98.62) Hyperlipidemia (272.4) (E78.5) Hypertension (401.9) (I10) Migraine headache (346.90) (G43.909) Never a smoker Sleep apnea (780.57) (G47.30) Surgical History Problems History of Appendectomy History of Back surgery History of Cataract surgery History of Cholecystectomy History of Complete colonoscopy History of Eye surgery History of Hernia repair History of Hysterectomy History of Neck surgery History of Percutaneous transluminal coronary angioplasty History of Sinus surgery Current Meds Medication NameInstruction amLODIPine Besylate 5 MG Oral TabletTAKE 1 TABLET DAILY. Aspirin EC 81 MG TBECTAKE 1 TABLET DAILY. Clopidogrel Bisulfate 75 MG Oral TabletTAKE 1 TABLET DAILY. Cyclobenzaprine HCl - 10 MG Oral TabletTAKE 1 TABLET DAILY NEEDED. Docusate Sodium 100 MG Oral CapsuleTAKE 1 CAPSULE Daily Furosemide 40 MG Oral TabletTake 1 tablet daily Levemir SOLNINJECT SUBCUTANEOUSLY EVERY 12 HOURS DIRECTED. Losartan Potassium 100 MG Oral TabletTAKE 1 TABLET DAILY. Metoprolol Tartrate 25 MG Oral TabletTAKE 1 TABLET TWICE DAILY. [place] 10-325 MG TABSTAKE 1 TABLET EVERY 4 TO 6 HOURS NEEDED FOR PAIN. NovoLOG SOLNUSE DIRECTED Oxybutynin Chloride 5 MG Oral TabletTake 1 tablet twice daily Potassium Chloride Fabiana ER 20 MEQ Oral Tablet Extended ReleaseTAKE 1 TABLET DAILY. Rosuvastatin Calcium 40 MG Oral TabletTAKE 1 TABLET DAILY. Sertraline HCl - 50 MG Oral TabletTAKE 1 TABLET DAILY DIRECTED. Vitamin B Complex Oral CapsuleTAKE 1 CAPSULE Daily Vitamin C 1000 MG Oral TabletTAKE 1 TABLET DAILY. Vitamin D3 50 MCG (2000 UT) Oral CapsuleTAKE 1 CAPSULE Daily Zolpidem Tartrate 5 MG Oral TabletTAKE 1 TABLET AT BEDTIME NEEDED. Allergies Medication Penicillins Recorded By: Lety Gann; 03/03/2023 2:35:46 PM NonMedication IV Contrast Dye Allergy; Anaphylaxis;; Updated By: Reba Zambrano; 03/06/2023 11:28:08 AM Social History Problems Daily caffeine consumption OCCASSIONAL Never a smoker No alcohol use No illicit drug use Review of Systems Constitutional: not feeling tired. Cardiovascular: chest pain and palpitations, but no intermittent leg claudication and as noted in HPI. Respiratory: shortness of breath, but no cough. Gastrointestinal: no change in bowel habits and no blood in stools. Integumentary: no skin rashes. Neurological: no seizures and no frequent falls. All other systems have been reviewed and are negative for complaint. Vitals Vital Signs Recorded: 60Iuv3263 10:36AMRecorded: 25Tfx9863 10:35AM Eqqdmfgd659, RUE, Bupgusp056, LUE, Sitting Hhyihmdhz96, RUE, Bzdywyh17, LUE, Sitting Heart Rate66, Apical Height5 ft 3 in Height or Weight NOT DonePatient Reason Not Done Tobacco Useb) No PHQ-2 #1. Over the last 2 weeks have you felt down, depressed or hopeless? (If yes, answer PHQ-9 below)No PHQ-2 #2. Over the last 2 weeks have you felt little interest or pleasure in doing things? (If yes, answer PHQ-9 below)No Falls Screening (Age 18+)b) One or more falls in the last year EKG done in office today. Physical Exam GENERAL: Well developed, well nourished, in no acute distress. CHEST: Symmetrical and nontender. INTEGUMENT: Skin warm and dry, without gross excoriations or lesions. HEENT: No gross abnormalities of conjunctiva, teeth, gums, oral mucosa. patient in scooter chair for transportation. NECK: Supple, no JVD, no bruit. Thyroid not palpable. Carotid upstrokes normal. NEURO/PSYCH: Alert and oriented x 3; appropriate behavior and responses, grossly normal cerebellar function with normal balance and coordination. LUNGS: Clear to auscultation bilaterally; normal respiratory effort. HEART: Rate and rhythm regular with no evident murmur; no gallop appreciated. There are no rubs, clicks or heaves. PMI nondisplaced. Normal S1 and S2 ABDOMEN: Soft, nontender, no palpable hepatosplenomegaly, no masses, no bruits. Abdominal aorta not noted to be enlarged . MUSCULOSKELETAL: Ambulatory with normal tandem gait. EXTREMITIES: Warm with good color, no clubbing or cyanosis. There is no edema noted. Signatures Electronically signed by : Joceline Ortega MD; Mar 07 2023 8:37PM EST (Author) XR CHEST 2 VIEWS* Observed: 07/29/2022 8:50 AM Status: F Source: [facility] CLINICAL HISTORY: Shortness of breath. Cough. COMPARISON: 06/09/2020. RESULT: No consolidation. No pleural effusion. No pneumothorax. Mildly coarsened lung markings, chronic appearing and similar to prior. Stable cardiomediastinal silhouette. Aortic vascular calcification. No acute osseous findings. Degenerative changes. Spinal stimulator, unchanged. Postsurgical changes lower cervical spine. IMPRESSION: No acute radiographic abnormality. Report reported and signed by Oswald Parr on 07/29/2022 1226 ALLERGIES DATE TYPE / CODE NAME / CODE REACTION SEVERITY SOURCE 02/13/2024 Drug Allergy/[id number](S NOMED CT) Iodinated Contrast Media/[id number](RXNORM) Anaphylaxis Mild (Qualifier Value) [facility] 02/13/2024 Drug Allergy/[id number](S NOMED CT) Penicillins/[id number](RXNORM) Anaphylaxis Severe (Severity Modifier) (Qualifier Value) [facility] Miscellaneous Allergy/[id number](S NOMED CT) Penicillins, IV Dye [facility] ENCOUNTERS ADMIT/DISCHARGE ACCOUNT NUMBER ADMITTING ENCOUNTER CLASS LOCATION SOURCE 02/13/2024/02/22/20 24 [id number] Vincenzo Ragsdale [facility] [id number]: 1 [facility] 02/13/2024/02/13/20 24 [id number] Andres Witt [facility] 01/18/2024/01/18/20 24 [id number] Ambulatory Building:NOM [facility] 01/04/2024/01/04/20 24 [id number] Cheryl De La Garza [facility]ulatory [facility] 12/21/2023/12/21/19 24 [id number] Ambulatory Building:NOM [facility] 12/21/2023/12/21/19 24 [id number] Ambulatory Building:NOM S SWS POD [facility] 12/14/2023/12/14/19 24 [id number] Aryan Kellogg [facility] 12/13/2023/12/13/19 24 [id number] Andres Monterroso Ambulatory [facility] 11/27/2023/11/27/19 24 [id number] Ambulatory Building:NOM SSWSIM [facility] 09/18/2023/09/18/20 23 [id number] Ambulatory Building:NOM S SWS POD [facility] 09/13/2023/09/13/20 23 [id number] Ambulatory Building:NOM [facility] 09/11/2023/09/11/20 23 [id number] [facility] 08/31/2023/09/06/20 23 [id number] Medardo Darling [facility] nTRoom: [id number]: 1 [facility] 06/26/2023 [id number] Ambulatory [id number] g:Unknown [facility] 06/06/2023/06/06/20 23 [id number] Aleksandr Pascual [facility]ulatory [facility] 06/01/2023/06/10/20 23 [id number] Inpatient Encounter Building:Ogo ntzRoom: 102Bed: A [facility] 05/30/2023 [id number] Ambulatory 9090Building :Unknown [facility] 05/29/2023 [id number] Ambulatory 9090Building :Unknown [facility] 05/28/2023/06/01/20 23 [id number] Paige Aburto [facility]patient [facility] nTRoom: [id number]: 1 [facility] 05/28/2023 [id number] Ambulatory 9090Building :Unknown [facility] 05/12/2023/05/12/20 23 [id number] Ari Fernández [facility] 05/10/2023/05/10/20 23 [id number] Robyn Robin Emergency [facility] 05/07/2023 [id number] Ambulatory 9090Building :Unknown [facility] 05/06/2023 [id number] Ambulatory 9090Building :Unknown [facility] 05/05/2023 [id number] Ambulatory 9090Building :Unknown [facility] 05/05/2023 [id number] Ambulatory 9090Building :Unknown [facility] 05/04/2023/05/09/20 23 [id number] Medardo Darling [facility] nTRoom: [id number]: 1 [facility] 04/11/2023/04/11/20 23 [id number] Dwayne Apodaca Jr [facility] 04/10/2023 [id number] Ambulatory [id number] g:Unknown [facility] 03/15/2023/03/16/20 23 [id number] Joceline Ortega Ambulatory 9507Building :ELCICURoom: [id number]: [id number] [facility] 03/08/2023/03/08/20 23 [id number] Joceline Ortega [facility]ulatory [facility] 03/06/2023 [id number] Ambulatory [id number] g:Unknown [facility] PAYERS ENCOUNTER GUARANTOR PAYER SUBSCRIBER SOURCE 02/13/[address] [place] [address]Gab: () Primary Insurance:[facility] [employer] [facility] Number: [id number] Date:2024-02-13 Namrata Lafleur: [id number] [address]Lzw: (HP) [facility] 02/13/2024 Secondary Insurance:MedicarePo licy Number: [id number] Date:2024-02-13 Namrata Lafleur: [id number] [place] [address]Iwu: (HP) [facility] 02/13/2024 Tertiary Insurance:Self PayPolicy Number: Effective Date:2024-02-13 [facility] 02/13/[address] [place] [address]Tsr: () Primary Insurance:[employer] [facility] PFFSPolicy Number: [id number] Date:2024-02-13 Namrata Lafleur: [id number] [place] [address]Myj: (HP) [facility] 02/13/2024 Secondary Insurance:Self PayPolicy Number: Effective Date:2024-02-13 [facility] 01/18/2024 NAMRATA LAFLEUR: [place] [address]Uox: (HP) Primary Insurance:DEVOTED HEALTHPolicy Number: [id number] Date:2023-04-04 NAMRATA LAFLEUR: [id number] [place] [address] [facility] 01/04/2024 Namrata [address] [place] [address]Kwm: (HP) Primary Insurance:[employer] [facility] PFFSPolicy Number: [id number] Date:2023-11-28 Namrata Lafleur: [id number] [place] [address]Ezh: (HP) [facility] 01/04/2024 Secondary Insurance:Self PayPolicy Number: Effective Date:2023-11-28 [facility] 12/21/2023 NAMRATA LAFLEUR: [place] [address]Rzj: (HP) Primary Insurance:DEVOTED HEALTHPolicy Number: [id number] Date:2023-04-04 NAMRATA LAFLEUR: [id number] [place] [address] [place] 12/21/2023 NAMRATA LAFLEUR: [place] [address]Hyx: (HP) Primary Insurance:DEVOTED HEALTHPolicy Number: [id number] Date:2023-04-04 NAMRATA LAFLEUR: [id number] [place] [address] [place] 12/14/2023 [address]rata [place] [address]Iqj: (HP) Primary Insurance:[employer] [facility] PFFSPolicy Number: [id number] Date:2023-12-14 Namrata Lafleur: [id number] [place] [address]Bsx: (HP) [facility] 12/14/2023 Secondary Insurance:Self PayPolicy Number: Effective Date:2023-12-14 [facility] 12/13/2023 Namrata [place] [address]Bnj: (HP) Primary Insurance:[employer] MCR PFFSPolicy Number: [id number] Date:2023-11-30 Namrata YanezB: [id number] [place] [address]Mxu: (HP) [facility] 12/13/2023 Secondary Insurance:Self PayPolicy Number: Effective Date:2023-12-01 NOT GIVENUNK [facility] 11/27/2023 NAMRATA YANEZB: [place] [address]Ltm: (HP) Primary Insurance:DEVOTED HEALTHPolicy Number: [id number] Date:2023-04-04 NAMRATA LAFLEUR: [id number] [place] [address] [facility] EPIC 09/18/2023 NAMRATA YANEZB: [address] [place] [address]Svf: (HP) Primary Insurance:DEVOTED HEALTHPolicy Number: [id number] Date:2023-04-04 NAMRATA LAFLEUR: [id number] [place] [address] [facility] EPIC 09/13/2023 NAMRATA YANEZB: [address] [place] [address]Iag: (HP) Primary Insurance:DEVOTED HEALTHPolicy Number: [id number] Date:2023-04-04 NAMRATA YANEZB: [id number] [place] [address] [facility] EPIC 06/26/2023 NAMRATA YANEZB: [address] [place], [place] [address]Wec: (HP) Primary Insurance:[employer] Health IncPolicy Number: [id number] Date:Plan Name:Health NAMRATA LAFLEUR: [id number] [place] [address]Bif: (HP) [facility] 05/30/2023 NAMRATA YANEZB: [address] [place] [address]Jbk: (HP) Primary Insurance:[employer] Health IncPolicy Number: [id number] Date:Plan Name:Martha YANEZB: [id number] [place] [address]Tnj: (HP) [facility] 05/29/2023 NAMRATA YANEZB: [address] [place] [address]Itr: (HP) Primary Insurance:[employer] Health IncPolicy Number: [id number] Date:Plan Name:Martha YANEZB: [id number] [place] [address]Ryf: (HP) [facility] 05/28/2023 NAMRATA YANEZB: [address] [place] [address]Msw: (HP) Primary Insurance:[employer]oted Health IncPolicy Number: [id number] Date:Plan Name:Martha YANEZB: [id number] [place] [address]Zns: (HP) [facility] 05/07/2023 NAMRATA JACKDOB: [address] [place] [address]Cbw: (HP) Primary Insurance:[employer]oted Health IncPolicy Number: [id number] Date:Plan Name:Martha YANEZB: [id number] [place] [address]Vcu: (HP) [facility] 05/06/2023 NAMRATA JACKDOB: [address] [place] [address]Sxs: (HP) Primary Insurance:[employer] Health IncPolicy Number: [id number] Date:Plan Name:Martha JACKDOB: [id number] [place] [address]Kyu: (HP) [facility] 05/05/2023 NAMRATA JACKDOB: [address] [place] [address]Snp: (HP) Primary Insurance:[employer] IncPolicy Number: [id number] Date:Plan Name:Martha JACKDOB: [id number] [place] [address]Cjh: (HP) [facility] 05/05/2023 Secondary Insurance:Medicare OPolicy Number: Effective Date:Plan Name:Martha JACKDOB: [id number] [place] [address]Ipo: (HP) [facility] 05/05/2023 NAMRATA JACKDOB: [address] [place] [address]Owa: (HP) Primary Insurance:[employer]Policy Number: [id number] Date:Plan Name:Martha JACKDOB: [id number] [place] [address]Ier: (HP) [facility] 04/10/2023 NAMRATA JACKDOB: [address] [place] [address]Ame: (HP) Primary Insurance:[employer] Health IncPolicy Number: [id number] Date:Plan Name:Martha JACKDOB: [id number] [place] [address]Qca: () [facility] 03/15/2023 NAMRATA Bartholomew CIARRA: [address] [place] [address]Hdq: (HP) Primary Insurance:[facility] Number: [id number] Date:Plan Name:[facility] NAMRATA Bartholomew CIARRA: [id number] [place] [address]Jif: (HP) [facility] 03/06/2023 NAMRATA Bartholomew CIARRA: [place] [address] [place] [address]Zpe: () Primary Insurance:[facility] Number: [id number] Date:Plan Name:[facility] NAMRATA [place] LAFLEUR: [id number] [place] [address]Ene: () [facility]
[2024-03-04 08:11] LABS: Basophils Absolute Auto 0.1 10^3/uL (0.0-0.1); Basophils Percent Auto 1.1 % (0.2-2.0); Eosinophils Absolute Auto 0.2 10^3/uL (0.0-0.7); Hematocrit 31.9 % (36.0-48.0); Hemoglobin 10.3 g/dL (12.0-16.0); Immature Granulocytes Abs Auto 0.03 10^3/uL (0.00-0.03); Immature Granulocytes Pct Auto 0.4 % (0.0-0.5); Lymphocytes Absolute Auto 1.6 10^3/uL (1.2-3.8); Lymphocytes Percent Auto 19.8 % (20.5-60.0); Mean Corpuscular HGB Conc 32.3 g/dL (29.9-35.2); Mean Corpuscular Hemoglobin 31.4 pg (26.7-34.0); Mean Corpuscular Volume 97.3 fL (81.0-99.0); Mean Platelet Volume 9.1 fL (9.5-13.5); Monocytes Absolute Auto 0.7 10^3/uL (0.3-0.8); Neutrophils Absolute Auto 5.4 10^3/uL (1.4-6.5); Neutrophils Percent Auto 66.7 % (43.0-75.0); Platelet Count 337 10^3/uL (150-450); Red Blood Count 3.28 10^6/uL (4.20-5.40); Red Cell Distribution Width 14.5 % (11.0-15.0)
[2024-03-04 10:00] LABS: BUN Creatinine Ratio 16.7; Calcium 9.3 mg/dL (8.5-10.1); Carbon Dioxide 27.9 mmol/L (21.0-32.0); Chloride 106 mmol/L (98-107); Estimated GFR (African America 44 (>=60); Estimated GFR (Non-African Ame 36 (>=60); Glucose 75 mg/dL (74-106); Potassium 3.9 mmol/L (3.5-5.1); Sodium 142 mmol/L (136-145)
== END 2024-03-04 03:15 | disposition home or self-care (01) ==
LOC: LAB 03:14
PROVIDERS: Visit Provider Family Medicine
DX: A41.9 Sepsis, unspecified organism (principal)
CPT/HCPCS: 36415; 80048; 85025

== ENCOUNTER 2024-03-11 01:05 | Outpatient (REF) | payer OTHER, SELFPAY ==
--- OUTSIDE RECORDS SUMMARY | 2024-03-11 01:11 | XMS_ITS | CCD ---
Author Organization [facility] Care Team Providers Care Parking Meter Attendant Name Role Phone MD Latrice Bergeron Primary Care Provider [phone] MD Antolin Apodaca Jr Emergency Provider Latrice Bergeron Unavailable Unavailable Unavailable MD Latrice Bergeron Primary Care Provider MD Joceline Ortega Attending Provider MD Antolin Apodaca Jr Emergency Provider MD Ann Gillis Emergency Provider DO Medardo Darling Admit Provider DO Medardo Darling Attending Provider MD Ari eFrnández Other Provider MD David Lane Attending Provider DO Hamzah Burnham Emergency Provider [phone] MD Ari Fernández Attending Provider [phone] MD Paige Aburto Admit Provider MD Paige Aburto Attending Provider MD Deep Eubanks Other Provider MD Fahad Dobson Attending Provider [phone] MD Sydnie Milian Other Provider MD Latrice Bergeron Primary Care Provider [phone] MD Aleksandr Pascual Attending Provider [phone] Dr. Aleksandr Pascual Unavailable Unavailable Dr. Latrice Bergeron Primary Care Unavailab le Ortega, Dr. Car Attending Unavailable Chris, Dr. Latrice Whitfield Referring Unavailab le Ortega, Dr. Car Referring Unavailable Jordan, Dr. Car Attending Unavailable Rufus, Dr. Latrice Whitfield Primary Care Unavailab le Rufus, Dr. Latrice Whitfield Primary Care Unavailab le Rufus, Dr. Latrice Whitfield Primary Care Unavailab le Rufus, Dr. Latrice Whitfield Primary Care Unavailab le Rufus, Dr. Latrice Whitfield Primary Care Unavailab le Rufus, Dr. Latrice Whitfield Primary Care Unavailab le Rufus, Dr. Latrice Whitfield Primary Care Unavailab le Rufus, Dr. Latrice Whitfield Primary Care Unavailab le Rufus, Dr. Latrice Whitfield Primary Care Unavailab le Ortega, Dr. Car Referring Unavailable Ortega, Dr. Car Attending MD Latrice Melo Primary Care Provider DO Andres Orellana Emergency Provider Unavai DO Medardo Jenkins Admit Provider [phone] DO Medardo Darling Attending Provider MD Latrice Bergeron Primary Care Provider [phone] DO Andres Orellana Emergency Provider Unavai DO Medardo Jenkins Admit Provider MD Mazin Ortiz Attending Provider [phone] DO Hamzah Burnham Emergency Provider Latrice Bergeron MD Primary Care Provider Andres Monterroso Unavailable MD Latrice Bergeron Primary Care Provider SINA De La Garza Attending Provider MD Andres Monterroso Attending Provider DO Aryan Kellogg Emergency Provider MD Latrice Bergeron Primary Care Provider [phone] SINA De La Garza Attending Provider LATRICE BERGERON Attending LATRICE Melo Referring Unavailable LASHONDA LOVE Attending Unavailable NANDO JIMENEZ Attending Unavailable NANDO JIMENEZ Attending Unavailable LATRICE BERGERON Attending Unavailable LATRICE BERGERON Referring Unavailable LATRICE BERGERON Attending Unavailable LATRICE BERGERON Referring Unavailable MD Latrice Bergeron Primary Care Provider [phone] MD Andres Monterroso Attending Provider DO Aryan Kellogg Emergency Provider SINA De La Garza Attending Provider [phone] DO Andres [facility]rellana [facility] Provider [facility] Celsa E Emergency Provider DO Vincenzo Ragsdale Admit Provider DO Vincenzo Ragsdale Attending Provider MD Ari Fernández Other Provider MD Deep Eubanks Other Provider MD Sawyer Dozier Attending Provider ROSEMARIE Del Cid Other Provider Unavailable DO Rui Benson Other Provider [phone] MD Christa Jaime Other Provider [phone] MD Jermaine Rogel Other Provider MD Pinky Kern Other Provider [phone] MD Galileo Kennedy Other Provider SINA Grimes Other Provider MD Joceline Ortega Other Provider MD Olinda Mccarthy Other Provider MD Connie Alba Other Provider Wyatt [facility] Raquel Bartholomew Other Provider MD Clarice Mcguire Other Provider [phone] Andres Monterroso Attending UnavailAndres Danielle Admitting Unavailabl e Latrice Bergeron Primary Care Unavailable Latrice Bergeron Primary Care Unavailable Cheryl De La Garza Attending Unavailable Cheryl De La Garza Admitting Unavailable Joceline Ortega Admitting Unavailable Latrice Bergeron Primary Care Unavailable Joceline Ortega Attending Unavailable Kian Fernándezam Attending Unavailable [facility] Primary Care Unavailable Elashi, Essam Admitting Unavailable Medardo Darling Admitting Unavailable [facility] Primary Care Unavailable Mazin Ortiz Attending Unavailab Fahad Cabrera Attending Unavailable Deep Eubanks Consulting Unavailable Paige Aburto Admitting Unavailable [facility] Primary Care Unavailable Sydnie Milian Consulting Unavailable Elashi, Essam Consulting Unavailable [facility] Primary Care Unavailable Vincenzo Ragsdale Admitting UnavailSawyer Wallace Attending Unavailable Deep Eubanks Consulting Unavailable Brooke Del Cid Consulting Unavailable Rui Benson Consulting Unavailable Christa Jaime Consulting Unavailable Jermaine Rogel Consulting Unavail able Pinky Kern Consulting Unavailable Galileo Kennedy Consulting Unavailab Brinda Baeza Consulting Unavailable Joceline Ortega Consulting Unavailable Olinda Mccarthy Consulting Unavailab Connie Santillan Consulting Unavailable Raquel Schneider Consulting Unavailable Clarice Mcguire Consulting Unavailable Medardo Darling Admitting Unavailable Elashi, Essam Consulting Unavailable [facility] Primary Care Unavailable David Lane Attending Unavailable [facility] Primary Care Unavailable Aryan Kellogg Admitting Unavailable Aryan Kellogg Attending Unavailable Andres Orellana Attending Unavailable Andres Orellana Admitting Unavailable [facility] Primary Care Unavailable Rufus, Latrice Primary Care Unavailable Antolin Apodaca Jr Attending Unavailable Antolin Apodaca Jr Admitting Unavailable Hamzah Burnham Attending Unavailable [facility] Latrice Primary Care Unavailable Hamzah Burnham Admitting Unavailable Hamzah Burnham M Admitting Unavailable Hamzah Burnham Attending Unavailable [facility] Primary Care Unavailable [facility] Primary Care Unavailable Aleksandr Pascual Attending Unavailable Aleksandr Pascual Admitting Unavailable Allergies Allergy Classification Reported Allergen(s) Allergy Type Date of Onset Reaction(s) Facility (15 sources) Contrast media; Translations: [IV Dye] Allergy to substance 2 Anaphylaxis [facility] (20 sources) Penicillins; Translations: [Penicillins] Allergy to substance 2 Anaphylaxis [facility] (6 sources) Contrast media All[facility] ([facility]) [facility] Work Phone: (2 sources) Angiotensin Converting Enzyme (Lisa) Inhibitors Allergy to drug (finding) [facility] 250 DO Work Phone: (1 source) Penicillin Drug Allergy Unknown [facility] [employer] Other (7 sources) Iodinated Contrast Media; Translations: [Iodinated Contrast Media] Allergy to substance Anaphylaxis [facility] Medications Current Medications Medication Drug Class(es) Dates Sig (Normalized) Sig (Original) acetaminophen 325 mg / HYDROcodone bitartrate 5 mg oral tablet (20 sources) Opioid Agonist Start: 02-22-2024 take 1 tablet by mouth every four hours Hydrocodone-Aceta minophen Active 1 TAB PO Q4H 15 February 22, 2024 Start: 09-11-2023 End: 11-30-2023 take 1 tablet by mouth every four hours Hydrocodone-Acetaminophen Discontinued 1 TAB PO Q4H 6 September 11, 2023 November 30, 2023 11:06am Start: 08-31-2023 End: 02-22-2024 take 10-325 mg by mouth every six hours Hydrocodone-Acetaminophen Discontinued 1 0 - 325 MG PO Q6H August 31, 2023 4:15am February 22, 2024 12:08pm Start: 06-01-2023 take 1 tablet by yessica th four times daily as needed for pain HYDROcodone-Acetaminophen Oral Tablet 10-325 MG 1 tablet Tablet Oral GIVE 1 TABLET BY MOUTH FOUR TIMES DAILY NEEDED FOR PAIN 06/01/2023 12:45:00 Start: 08-04-2019 End: 12-08-2021 take 1 tablet by mouth every four to six hours Hydrocodone-Acetaminophen ([place]) 5-325 mg Tablet Discontinued 1 TAB PO EVERY 4-6 HOURS 7 August 04, 2019 December 08, 2021 11:28am Start: 01-20-2018 End: 08-31-2023 take 10-325 mg by mouth four times daily Hydrocodone-Acetaminophen Discontinued 1 0 - 325 MG PO Four times daily 12 June 01, 2023 August 31, 2023 4:16am [place] 10-325 MG TABS TAKE 1 TABLET EVERY 4 TO 6 HOURS NEEDED FOR PAIN. Quantity: 0 Refills: 0 Ordered: 06-Mar-2023 DO Active amLODIPine 5 mg oral tablet (20 sources) Dihydropyridine Calcium Channel Maria Esther Start: 08-31-2023 take 5 mg by mouth once daily Amlodipine Active 5 MG PO Daily August 31, 2023 12:00am Start: 08-31-2023 take 5 mg by mouth twice daily Amlodipine Active 5 MG PO Twice daily August 31, 2023 12:00am Start: 01-20-2018 End: 05-09-2023 take 5 mg by mouth once daily Amlodipine Discontinued 5 MG PO Daily January 20, 2018 12:00am May 09, 2023 1:17pm aspirin 81 mg delayed release oral tablet (20 sources) Platelet Aggregation Inhibitor, Nonsteroidal Anti-inflammatory Drug Start: 06-02-2023 take 1 tablet by mouth once daily Aspirin Oral Tablet Chewable 81 MG 1 tablet Tablet Chewable Oral Give 1 tablet by mouth every day shift related to ATHEROSCLEROTIC HEART DISEASE OF [place] CORONARY ARTERY WITHOUT ANGINA PECTORIS (I25.10) 06/02/2023 7:00:00 Start: 06-01-2019 End: 08-31-2023 take 81 mg by mouth once daily Aspirin Active 81 MG PO Daily August 31, 2023 12:00am Aspirin 81 Activ e cefadroxil 500 mg oral capsule (1 source) Cephalosporin Antibacterial Start: 02-22-2024 take 500 mg by mouth every eight hours Cefadroxil Active 500 MG PO Every 8 hours 18 February 22, 2024 12:00am cholecalciferol 0.05 mg oral capsule (20 sources) Vitamin D Start: 02-22-2024 take 2000 [IU] by mouth once daily Cholecalciferol (Vitamin D3) Active 2000 UNIT PO Daily February 22, 2024 11:54am Start: 06-02-2023 take 2 tablets by mo ut once daily Cholecalciferol Oral Tablet 50 MCG (1999 UT) 2 tablet Tablet Oral Give 2 tablet by mouth every day shift for Vitamin D deficiency 06/02/2023 7:00:00 Start: 06-01-2019 End: 02-22-2024 take 4000 [IU] by mouth once daily Cholecalciferol (Vitamin D3) Discontinued 4000 UNIT PO Daily June 01, 2019 12:00am February 22, 2024 12:08pm Start: 06-01-2019 take 2000 [IU] by mo uth once daily Cholecalciferol (Vitamin D3) Active 2000 UNIT PO Daily June 01, 2019 12:00am clopidogrel 75 mg oral tablet (20 sources) [id number] Platelet Inhibitor Start: 06-01-2019 take 1 tablet by mouth once daily Clopidogrel (Plavix) 75 mg Tablet Active 75 MG PO Daily June 01, 2019 12:00am cyclobenzaprine hydrochloride 10 mg oral tablet (20 sources) Muscle Relaxant Start: 06-01-2023 take 1 tablet by mouth every eight hours as needed for muscle spasms Cyclobenzaprine HCl Oral Tablet 10 MG 1 tablet Tablet Oral Give 1 tablet by mouth every 8 hours as needed for Muscle spasms 06/01/2023 13:00:00 Start: 06-01-2019 End: 02-22-2024 take 10 mg by mouth three times daily Cyclobenzaprine Discontinued 10 MG PO Three times daily June 01, 2019 12:00am February 22, 2024 12:08pm Start: 01-20-2018 End: 02-24-2018 Cyclobenzaprine Discontinued TABLET January 20, 2018 12:00am February 24, 2018 9:59am Flexeril Active take 1 tablet by [facility] once daily as needed Cyclobenzaprine HCl - 10 MG Oral Tablet TAKE 1 TABLET DAILY NEEDED. Quantity: 0 Refills: 0 Ordered: 06-Mar-2023 DO Active docusate sodium 100 mg oral capsule (16 sources) Start: 02-22-2024 take 100 mg by mouth twice daily Docusate Sodium Active 100 MG PO Twice daily 0 February 22, 2024 12:00am Start: 08-31-2023 End: 08-31-2023 take 100 mg by mouth once daily Docusate Sodium Discon tinued 100 MG PO Daily August 31, 2023 12:00am August 31, 2023 11:49am take 2 capsules by [facility] at bedtime Docusate Sodium 100 MG Oral Capsule TAKE 2 CAPSULE Bedtime Quantity: 0 Refills: 0 Ordered: 26-Jun-2023 DO Active take 1 capsule by [facility] once daily Docusate Sodium 100 MG Oral Capsule TAKE 1 CAPSULE Daily Quantity: 0 Refills: 0 Ordered: 06-Mar-2023 DO Active gabapentin 100 mg oral capsule (20 sources) Anti-epileptic Agent Start: 02-22-2024 take 200 mg by mouth twice daily Gabapentin Active 200 MG PO Twice daily 0 February 22, 2024 12:00am Start: 06-01-2023 take 1 tablet by yessica th every twelve hours Gabapentin Oral Tablet 600 MG 1 tablet Tablet Oral Give 1 tablet by mouth every 12 hours related to POLYNEUROPATHY, UNSPECIFIED (G62.9) 06/01/2023 20:00:00 Start: 02-24-2018 End: 02-22-2024 take 600 mg by mouth twice daily Gabapentin Discontinued 600 MG PO Twice daily February 24, 2018 12:00am February 22, 2024 12:08pm Start: 02-24-2018 take 300 mg by mouth twice daily Gabapentin Active 300 MG PO Twice daily February 24, 2018 12:00am take 1 tablet by yessica th every twelve hours Gabapentin 600 MG 1 Capsule orally bid Active glucose 0.4 mg/mg oral gel (1 source) Start: 02-22-2024 Dextrose (Glutose-15) 40 % Gel Active 0.6 GM PO PRN 0 February 22, 2024 12:00am Insulin Aspart U-100 (Novolog Flexpen U-100 Insulin) 100 unit/mL (3 mL) Insulin Pen (1 source) Start: 02-22-2024 inject 1 [IU] by subcutaneous injection once at mealtime Insulin Aspart U-100 (Novolog Flexpen U-100 Insulin) 100 unit/mL (3 mL) Insulin Pen Active 1 UNIT SUBCUT 3X/Day with meals and bedtime 0 February 22, 2024 12:00am insulin aspart, human 100 unt/ml injectable solution (7 sources) Insulin Analog NovoLOG 100 UNIT/ML as directed Injection Active NovoLOG SOLN USE DIRECTED Quantity: 0 Refills: 0 Ordered: 06-Mar-2023 DO Active 3 ml insulin glargine 100 unt/ml pen injector (1 source) Insulin Analog Start: 02-22-2024 Insulin Glargi ne (Lantus Solostar U-100 Insulin) 100 unit/mL (3 mL) Insulin Pen Active 25 UNIT SUBCUT Twice daily 0 February 22, 2024 12:00am INSULIN GLARGINE-YFGN U100 PEN{3 ML} (2 sources) Start: 06-04-2023 INSULIN GLARGI NE-YFGN U100 PEN{3 ML} 30 unit Solution Pen-injector Subcutaneous Inject 30 unit subcutaneously at bedtime related to 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 06/04/2023 20:00:00 Start: 06-02-2023 End: 06-03-2023 inject 50 [IU] by subcutaneous injection once, then inject 42 [IU] by subcutaneous injection at bedtime INSULIN GLARGINE-YFGN U100 PEN{3 ML} 50 unit Solution Pen-injector Subcutaneous INJECT 50 UNITS SUBCUTANEOUSLY ONCE DAILY..INJECT 42 UNITS SUBCUTANEOUSLY AT BEDTIME (FORMULARY INTERCHANGE FOR LEVEMIR) 06/02/2023 20:00:00 06/03/2023 21:34:00 Aborted Insulin Lispro Injection Solution 100 UNIT/ML (2 sources) Start: 06-08-2023 Insulin Lispro Injection Solution 100 UNIT/ML Solution Injection Inject as per sliding scale: if 150 - 199 = 1 unit; 200 - 249 = 2 units; 250 - 299 = 3 units; 300 - 349 = 4 units; 350 - 06/08/2023 11:30:00 Start: 06-01-2023 End: 06-08-2023 Insulin Lispro Injection Floresita ution 100 UNIT/ML Solution Injection Inject as per sliding scale: if 150 - 199 = 1 unit; 200 - 249 = 2 units; 250 - 299 = 3 units; 300 - 349 = 4 units; 350 - 06/01/2023 16:00:00 06/08/2023 8:52:00 Aborted linezolid 600 mg oral tablet (1 source) Oxazolidinone Antibacterial Start: 02-22-2024 take 600 mg by mouth twice daily Linezolid Active 600 MG PO Twice daily 6 3 February 22, 2024 12:00am losartan potassium 25 mg oral tablet (20 sources) Angiotensin 2 Receptor Maria Esther Start: 02-22-2024 take 25 mg by mouth once daily Losartan Active 25 MG PO Daily February 22, 2024 12:00am Start: 08-31-2023 End: 02-22-2024 take 100 mg by mouth once daily Losartan Discontinued 100 MG PO Daily August 31, 2023 12:00am February 22, 2024 12:08pm Start: 08-31-2023 End: 08-31-2023 take 10 mg by mouth once daily Losartan Discontinued 1 0 MG PO Daily August 31, 2023 12:00am August 31, 2023 11:49am Start: 05-09-2023 End: 06-01-2023 take 25 mg by mouth once daily Losartan Discontinued 2 5 MG PO Daily May 09, 2023 12:00am June 01, 2023 11:22am Start: 01-20-2018 End: 05-09-2023 take 100 mg by mouth once daily Losartan Discontinued 100 MG PO Daily January 20, 2018 12:00am May 09, 2023 1:17pm magnesium oxide 400 mg oral tablet (1 source) Start: 02-22-2024 take 400 mg by mouth once daily Magnesium Oxide Active 400 MG PO Daily February 22, 2024 12:00am oxybutynin chloride 5 mg oral tablet (20 sources) Cholinergic Muscarinic Antagonist Start: 06-01-2023 take 1 tablet by mouth once daily Oxybutynin Chloride Oral Tablet 5 MG 1 tablet Tablet Oral Give 1 tablet by mouth every day and evening shift related to RETENTION OF URINE, UNSPECIFIED (R33.9) 06/01/2023 15:00:00 Start: 01-20-2018 take 5 mg by mouth twice daily Oxybutynin Chloride Active 5 MG PO Twice daily January 20, 2018 12:00am potassium chloride 20 meq or al tablet (20 sources) Start: 06-02-2023 Potassium Chlo ride ER Oral Tablet Extended Release 20 MEQ 1 tablet Tablet Extended Release Oral Give 1 tablet by mouth every day shift related to CHRONIC KIDNEY DISEASE, STAGE 3 UNSPECIFIED (N18.30) 06/02/2023 7:00:00 Start: 06-11-2019 End: 02-22-2024 take 20 mEq by mouth once daily Potassium Chloride Dis continued 20 MEQ PO Daily June 11, 2019 12:00am February 22, 2024 12:08pm take 1 tablet by yessica th once daily Potassium Chloride Fabiana ER 20 MEQ Oral Tablet Extended Release TAKE 1 TABLET DAILY. Quantity: 90 Refills: 3 Ordered: 06-Mar-2023 DO Active 12 hr ranolazine 500 mg extended release oral tablet (20 sources) Anti-anginal Start: 11-30-2023 take 500 mg by mouth every twelve hours Ranolazine Active 500 MG PO Q12H November 30, 2023 1:00am Start: 05-04-2023 End: 08-31-2023 take 500 mg by mouth twice daily Ranolazine Discontinued 500 MG PO Twice daily May 04, 2023 12:00am August 31, 2023 4:11am Start: 03-06-2023 take 1 tablet by yessica th every twelve hours Ranolazine ER 500 MG Oral Tablet Extended Release 12 Hour TAKE 1 TABLET Every twelve hours Quantity: 180 Refills: 3 Ordered: 06-Mar-2023 Joceline Ortega MD Start : 06-Mar-2023 Active new start Start: 06-03-2019 End: 07-31-2020 take 1 tablet by mouth twice daily Ranolazine (Ranexa) 1,000 mg tablet extended release 12 hr Discontinued 1000 MG PO Twice daily 60 30 June 03, 2019 12:00am July 31, 2020 9:41am Ranexa Active Ranolazine ER Oral Tablet Extended Release 12 Hour 500 MG (1 source) Start: 06-01-2023 take 1 tablet by mouth every twelve hours Ranolazine ER Oral Tablet Extended Release 12 Hour 500 MG 1 tablet Tablet Extended Release 12 Hour Oral Give 1 tablet by mouth every 12 hours related to NON-ST ELEVATION (NSTEMI) MYOCARDIAL INFARCTION (I21.4);NONRHEUMATIC AO 06/01/2023 20:00:00 sertraline 100 mg oral tablet (20 sources) Serotonin Reuptake Inhibitor Start: 11-30-2023 take 100 mg by mouth every twenty-four hours Sertraline Active 100 MG PO Q24H November 30, 2023 1:00am Start: 06-02-2023 take 1 tablet by yessica th once daily Sertraline HCl Oral Tablet 100 MG 1 tablet Tablet Oral Give 1 tablet by mouth every day shift related to DEPRESSION, UNSPECIFIED (F32.A) 06/02/2023 7:00:00 Start: 06-01-2019 End: 02-13-2024 take 2 tablets by mouth once daily Sertraline (Zoloft) 50 mg Tablet Discontinued 100 MG PO Daily June 01, 2019 12:00am February 13, 2024 7:26pm Start: 06-01-2019 take 1 tablet by yessica th once daily Sertraline (Zoloft) 50 mg Tablet Active 50 MG PO Daily June 01, 2019 12:00am Start: 01-20-2018 End: 02-24-2018 Sertraline Discontinued TABL ET January 20, 2018 12:00am February 24, 2018 10:08am Start: 01-20-2018 End: 02-24-2018 Sertraline Discontinued TABL ET January 20, 2018 12:00am February 24, 2018 10:08am simethicone 80 mg chewable tablet (1 source) Start: 02-22-2024 take 80 mg by mouth once at mealtime Simethicone Active 80 MG PO 3X/Day with meals and bedtime 0 February 22, 2024 12:00am spironolactone 25 mg oral tablet (20 sources) Aldosterone Antagonist Start: 11-30-2023 take 25 mg by mouth once daily Spironolactone Active 25 MG PO Daily November 30, 2023 1:00am Start: 05-09-2023 End: 06-01-2023 take 25 mg by mouth twice daily Spironolactone Discontinued 25 MG PO Twice daily 60 May 09, 2023 12:00am June 01, 2023 11:22am torsemide 20 mg oral tablet (1 source) Loop Diuretic Start: 02-22-2024 take 20 mg by mouth once daily Torsemide Active 20 MG PO DAILY@0800 0 February 22, 2024 12:00am Vitamin B Complex (8 sources) Start: 08-31-2023 take 1 capsule by mouth once daily Vitamin B Complex Active 1 CAP PO Daily August 31, 2023 12:00am Start: 08-31-2023 take 1 capsule by mo uth once daily Vitamin B Complex Active 1 CAP PO Daily August 30, 2023 11:00pm Vitamin B Complex (B Complex) Capsule (1 source) Start: 08-31-2023 take 1 capsule by mouth once daily Vitamin B Complex (B Complex) Capsule Active 1 CAP PO Daily August 31, 2023 12:00am Completed/Discontinued Medications Medication Drug Class(es) Dates Sig (Normalized) Sig (Original) ascorbic acid 1000 mg oral tablet (15 sources) Vitamin C Start: 08-31-2023 End: 02-22-2024 take 1 tablet by mouth once daily Ascorbic Acid (Vitamin C) (Vitamin C) 1,000 mg Tablet Discontinued 1000 MG PO Daily August 31, 2023 12:00am February 22, 2024 12:08pm take 1 tablet by mouth once pasha y Vitamin C 1000 MG Oral Tablet TAKE 1 TABLET DAILY. Quantity: 0 Refills: 0 Ordered: 06-Mar-2023 DO Active atorvastatin 80 mg oral tablet (15 sources) HMG-CoA Reductase Inhibitor Start: 05-30-2023 End: 08-31-2023 take 80 mg by mouth at bedtime Atorvastatin Discontinued 80 MG PO Bedtime 30 May 30, 2023 12:00am August 31, 2023 4:12am cefdinir 300 mg oral capsule (12 sources) Cephalosporin Antibacterial Start: 06-02-2023 End: 06-09-2023 take 1 capsule by mouth once daily Cefdinir Oral Capsule 300 MG 1 capsule Capsule Oral Give 1 capsule by mouth every day and evening shift related to URINARY TRACT INFECTION, SITE NOT SPECIFIED (N39.0) for 7 06/02/2023 7:00:00 06/09/2023 6:59:00 Completed Start: 06-01-2023 End: 08-31-2023 take 300 mg by mouth twice daily Cefdinir Discontinued 300 MG PO Twice daily June 01, 2023 12:00am August 31, 2023 4:12am cephalexin 500 mg oral capsule (6 sources) Cephalosporin Antibacterial Start: 11-30-2023 End: 02-13-2024 take 500 mg by mouth every twelve hours Cephalexin Discontinued 500 MG PO Q12H November 30, 2023 1:00am February 13, 2024 7:21pm ciprofloxacin 500 mg oral tablet (18 sources) Quinolone Antimicrobial Start: 12-11-2021 End: 05-04-2023 take 1 tablet by mouth every two hours Ciprofloxacin Hcl (Cipro) 500 mg tablet Discontinued 500 MG PO Twice daily 18 08December 11, 2021 1:00am May 04, 2023 6:10pm administer dose at least 2 hrs before/6 hrs after dairy products, calcium, zinc, and/or iron-containing products clindamycin 300 mg oral capsule (18 sources) Lincosamide Antibacterial Start: 01-20-2018 End: 02-24-2018 take 300 mg by mouth every six hours Clindamycin Hcl Discontinued 300 MG PO Q6H 40 January 20, 2018 12:00am February 24, 2018 9:57am clotrimazole 10 mg/ml topical cream (18 sources) Azole Antifungal Start: 01-20-2018 End: 02-24-2018 Clotrimazole Discontinued 1 APPLIC TOPICAL Twice daily January 20, 2018 12:00am February 24, 2018 9:57am diphenhydrAMINE hydrochloride 25 mg oral tablet (3 sources) Histamine-1 Receptor Antagonist Start: 03-06-2023 Benadryl Allergy 25 MG Oral Tablet Onet tablet three tiems daily for 2 days and the last dose being the morning of the procedure Quantity: 7 Refills: 0 Ordered: 06-Mar-2023 Joceline Ortega MD Start : 06-Mar-2023 Active famotidine 20 mg oral tablet (20 sources) Histamine-2 Receptor Antagonist Start: 08-31-2023 End: 08-31-2023 take 40 mg by mouth once daily in the morning Famotidine Discontinued 40 MG PO Every morning August 31, 2023 4:15am August 31, 2023 11:49am Start: 05-09-2023 End: 08-31-2023 take 20 mg by mouth once daily at bedtime Famotidine Discontinued 20 MG PO Daily at bedtime May 09, 2023 12:00am August 31, 2023 4:16am Start: 03-06-2023 take 1 tablet by yessica twice daily Famotidine 20 MG Oral Tablet one tablet twice daily for 2 days and the last dose the morning of the procedure Quantity: 5 Refills: 0 Ordered: 10-Mar-2023 Joceline Ortega MD Start : 06-Mar-2023 Active Start: 06-01-2019 End: 05-04-2023 take 20 mg by mouth once daily at bedtime Famotidine Discontinued 20 MG PO Daily at bedtime June 01, 2019 12:00am May 04, 2023 11:45pm furosemide 40 mg oral tablet (20 sources) Loop Diuretic Start: 09-06-2023 End: 02-22-2024 Furosemide Discontinued 40 MG PO Daily September 06, 2023 4:59pm February 22, 2024 12:08pm We discussed once a day and if your weight increases by 3 pounds, take an additional dose of Lasix in the afternoon Start: 05-28-2023 End: 09-06-2023 take 40 mg by mouth before breakfast Furosemide Discontinued 40 MG PO Before breakfast and lunch May 28, 2023 3:44am September 06, 2023 5:00pm Start: 05-28-2023 take 40 mg by mouth twice pasha y Furosemide Active 40 MG PO Twice daily May 28, 2023 3:44am Start: 05-09-2023 End: 05-28-2023 take 80 mg by mouth twice daily Furosemide Discontinue d 80 MG PO Twice daily 120 May 09, 2023 10:34am May 28, 2023 3:44am Start: 05-04-2023 End: 05-09-2023 take 80 mg by mouth once daily Furosemide Discontinued 80 MG PO Daily at 0800 May 04, 2023 6:15pm May 09, 2023 1:17pm Start: 06-11-2019 End: 05-04-2023 take 40 mg by mouth once daily Furosemide Discontinued 40 MG PO Daily at 0800 30 June 11, 2019 12:00am May 04, 2023 6:15pm Insulin Aspart U-100 (Novolog U-100 Insulin Aspart) 100 unit/mL solution (9 sources) Start: 08-31-2023 End: 02-22-2024 inject 30 [IU] by subcutaneous injection once before mealtime Insulin Aspart U-100 (Novolog U-100 Insulin Aspart) 100 unit/mL solution Discontinued 30 UNIT SUBCUT 3x/Day before meals August 31, 2023 12:00am February 22, 2024 12:08pm This in additon to Sliding scale Start: 08-31-2023 inject 30 [IU] by santana bcutaneous injection once before mealtime Insulin Aspart U-100 (Novolog U-100 Insulin Aspart) 100 unit/mL solution Active 30 UNIT SUBCUT 3x/Day before meals August 31, 2023 12:00am This in additon to Sliding scale Start: 08-31-2023 inject 40 [IU] by santana bcutaneous injection once before mealtime Insulin Aspart U-100 (Novolog U-100 Insulin Aspart) 100 unit/mL solution Active 40 UNIT SUBCUT 3x/Day before meals August 31, 2023 12:00am This in additon to Sliding scale Start: 08-31-2023 inject 40 [IU] by santana bcutaneous injection once before mealtime Insulin Aspart U-100 (Novolog U-100 Insulin Aspart) 100 unit/mL solution Active 40 UNIT SUBCUT 3x/Day before meals August 30, 2023 11:00pm This in additon to Sliding scale Start: 08-31-2023 inject 40 [IU] by santana bcutaneous injection twice daily Insulin Aspart U-100 (Novolog U-100 Insulin Aspart) 100 unit/mL solution Active 40 UNIT SUBCUT Twice daily August 31, 2023 12:00am insulin detemir 100 unt/ml injectable solution (20 sources) Insulin Analog Start: 05-04-2023 End: 02-22-2024 inject 30 [IU] by subcutaneous injection once daily at bedtime Insulin Detemir U-100 (Levemir U-100 Insulin) 100 unit/mL Solution Discontinued 30 UNIT SUBCUT Daily at bedtime August 31, 2023 12:00am February 22, 2024 12:08pm Start: 05-04-2023 inject 50 [IU] by santana bcutaneous injection once daily in the morning Insulin Detemir U-100 (Levemir U-100 Insulin) 100 unit/mL Solution Active 50 UNIT SUBCUT Daily May 04, 2023 12:00am QAM Start: 02-24-2018 End: 07-14-2020 Insulin Detemir U-100 (Levem ir Flextouch U100 Insulin) 100 unit/mL (3 mL) Insulin Pen Discontinued 60 UNITS SUBCUT Daily at bedtime February 24, 2018 12:00am July 14, 2020 10:10am Start: 01-20-2018 End: 08-31-2023 inject 40 [IU] by subcutaneous injection at bedtime Insulin Detemir U-100 (Levemir U-100 Insulin) 100 unit/mL solution Discontinued 40 UNITS SUBCUT Bedtime January 20, 2018 12:00am August 31, 2023 4:12am Start: 01-20-2018 inject 50 [IU] by santana bcutaneous injection twice daily Insulin Detemir U-100 (Levemir U-100 Insulin) 100 unit/mL solution Active 50 UNITS SUBCUT Twice daily January 20, 2018 12:00am Start: 01-20-2018 inject 70 [IU] by santana bcutaneous injection once daily in the morning Insulin Detemir U-100 (Levemir U-100 Insulin) 100 unit/mL solution Active 70 UNITS SUBCUT Every morning January 20, 2018 12:00am Levemir SOLN INJ ECT SUBCUTANEOUSLY EVERY 12 HOURS DIRECTED. Quantity: 0 Refills: 0 Ordered: 06-Mar-2023 DO Active Insulin Lispro (20 sources) Insulin Analog Start: 06-09-2019 End: 08-31-2023 inject 40 [IU] by subcutaneous injection three times daily at mealtime Insulin Lispro Discontinued 40 UNITS SUBCUT Three times daily June 09, 2019 12:00am August 31, 2023 11:51am Takes 40 units with each meal plus sliding scale Start: 06-09-2019 End: 08-31-2023 inject 40 [IU] by subcutaneous injection three times daily at mealtime Insulin Lispro Discontinued 40 UNITS SUBCUT Three times daily June 08, 2019 11:00pm August 31, 2023 10:51am Takes 40 units with each meal plus sliding scale Start: 06-09-2019 inject 40 [IU] by santana bcutaneous injection three times daily at mealtime Insulin Lispro Active 40 UNITS SUBCUT Three times daily June 09, 2019 12:00am Takes 40 units with each meal plus sliding scale Start: 06-09-2019 inject 40 [IU] by santana bcutaneous injection at mealtime Insulin Lispro Active 40 UNITS SUBCUT As Directed June 09, 2019 12:00am Takes 40 units with each meal plus sliding scale Start: 06-09-2019 inject 40 [IU] by santana bcutaneous injection at mealtime Insulin Lispro Active 40 UNITS SUBCUT As Directed June 09, 2019 12:00am Takes 40 units with each meal plus sliding scale Start: 01-20-2018 Insulin Lispro (Humalog U-100 Insulin) 100 unit/mL solution Active 1 UNIT SUBCUT As Directed January 20, 2018 12:00am sliding scale coverage Insulin Lispro (Humalog U-10 0 Insulin) 100 unit/mL solution (15 sources) Start: 01-20-2018 End: 05-04-2023 Insulin Lispro (Humalog U-10 0 Insulin) 100 unit/mL solution Discontinued 1 UNIT SUBCUT As Directed January 19, 2018 11:00pm May 04, 2023 5:12pm sliding scale coverage Start: 01-20-2018 End: 05-04-2023 Insulin Lispro (Humalog U-10 0 Insulin) 100 unit/mL solution Discontinued 1 UNIT SUBCUT As Directed January 20, 2018 12:00am May 04, 2023 6:12pm sliding scale coverage Levemir FlexTouch Subcutaneous Solution Pen-injector 100 UNIT/ML (1 source) Start: 06-01-2023 End: 06-01-2023 Levemir FlexTouch Subcutaneous Solution Pen-injector 100 UNIT/ML Solution Pen-injector Subcutaneous Inject 40 unit subcutaneously at bedtime related to TYPE 2 DIABETES MELLITUS WITHOUT COMPLICATIONS (E11.9) AND Inject 50 unit subcutaneously one time a day related to TYPE 2 DIABETES MELLITUS WITHOUT COMPLICATIONS (E11.9) 06/01/2023 20:00:00 06/01/2023 23:07:00 Aborted levoFLOXacin 750 mg oral tablet (18 sources) Quinolone Antimicrobial Start: 07-15-2020 End: 07-31-2020 take 750 mg by mouth once daily Levofloxacin Discontinued 750 MG PO Daily 10 30July 15, 2020 12:00am July 31, 2020 9:41am loperamide hydrochloride 2 mg oral capsule (3 sources) Opioid Agonist Start: 02-13-2024 End: 02-13-2024 take 1 capsule by mouth every six hours Loperamide (Imodium A-D) 2 mg capsule Discontinued 2 MG PO Every 6 hours 18 03February 13, 2024 12:00am February 13, 2024 7:24pm metaxalone 800 mg oral tablet (18 sources) Start: 01-20-2018 End: 02-24-2018 take 1 tablet by mouth three times daily Metaxalone (Skelaxin) 800 mg Tablet Discontinued 800 MG PO Three times daily January 20, 2018 12:00am February 24, 2018 10:05am metOLazone 5 mg oral tablet (10 sources) Thiazide-like Diuretic Start: 08-31-2023 End: 02-22-2024 take 5 mg by mouth once daily Metolazone Discontinued 5 MG PO Daily August 31, 2023 12:00am February 22, 2024 12:08pm metoprolol tartrate 25 mg oral tablet (20 sources) beta-Adrenergic Maria Esther Start: 08-31-2023 End: 08-31-2023 take 25 mg by mouth twice daily Metoprolol Tartrate Discontinued 25 MG PO Twice daily August 31, 2023 4:15am August 31, 2023 11:49am Start: 06-01-2023 take 0.5 tablet by m outh once daily Metoprolol Tartrate Oral Tablet 25 MG 0.5 tablet Tablet Oral Give 0.5 tablet by mouth every day and evening shift related to NON-ST ELEVATION (NSTEMI) MYOCARDIAL INFARCTION (I21.4); 06/01/2023 15:00:00 Start: 05-09-2023 End: 08-31-2023 take 12.5 mg by mouth twice daily Metoprolol Tartrate Active 12.5 MG PO Twice daily August 31, 2023 12:00am Start: 03-06-2023 take 1 tablet by yessica th twice daily Metoprolol Tartrate 50 MG Oral Tablet TAKE 1 TABLET TWICE DAILY. Quantity: 180 Refills: 3 Ordered: 06-Mar-2023 Joceline Ortega MD Start : 06-Mar-2023 Active dose increased Start: 01-20-2018 End: 05-09-2023 take 50 mg by mouth twice daily Metoprolol Tartrate Di scontinued 50 MG PO Twice daily January 20, 2018 12:00am May 09, 2023 10:34am Start: 01-20-2018 End: 07-01-2023 take 25 mg by mouth twice daily Metoprolol Tartrate Ac tive 25 MG PO Twice daily January 20, 2018 12:00am nitroglycerin 0.4 mg sublingual tablet (20 sources) Nitrate Vasodilator Start: 03-06-2023 Nitroglyce rin 0.4 MG Sublingual Tablet Sublingual PLACE 1 TABLET UNDER THE TONGUE EVERY 5 MINUTES FOR UP TO 3 DOSES NEEDED FOR CHEST PAIN.CALL 911 IF PAIN PERSISTS. Quantity: 25 Refills: 3 Ordered: 06-Mar-2023 Joceline Ortega MD Start : 06-Mar-2023 Active Start: 02-24-2018 End: 07-31-2020 apply 1 dose topically once daily Nitroglycerin Discontinued 0.2 PATCH TOPICAL Daily February 24, 2018 12:00am July 31, 2020 9:41am Nitroglycerin Ac tive ondansetron 4 mg oral tablet (20 sources) Serotonin-3 Receptor Antagonist Start: 02-13-2024 End: 02-22-2024 take 4 mg by mouth every eight hours Ondansetron Hcl Discontinued 4 MG PO Every 8 hours 15 5 February 13, 2024 12:00am February 22, 2024 12:08pm Start: 02-24-2018 End: 06-01-2019 take 1 tablet by mouth every eight hours Ondansetron (Zofran Odt) 4 mg tablet,disintegrating Discontinued 4 MG PO Q8H 9 3 February 24, 2018 12:00am June 01, 2019 5:54pm polyethylene glycol 3350 06934 mg powder for oral solution (8 sources) Osmotic Laxative Start: 09-05-2023 End: 02-22-2024 Polyethylene Glycol 3350 (Healthylax) 17 gram Powder In Packet Discontinued 17 GM PO Twice daily 0 September 05, 2023 1:00am February 22, 2024 12:08pm predniSONE 20 mg oral tablet (20 sources) Start: 03-06-2023 predniSONE 20 MG Oral Tablet one tablet three times daily for 2 days and then the morning of the procedure. Quantity: 7 Refills: 0 Ordered: 06-Mar-2023 Joceline Ortega MD Start : 06-Mar-2023 Active Start: 01-20-2018 End: 02-24-2018 take 60 mg by mouth once daily at mealtime Prednisone Discontinued 60 MG PO Daily January 20, 2018 12:00am February 24, 2018 10:08am administer with food or milk promethazine hydrochloride 25 mg oral tablet (9 sources) Phenothiazine Start: 08-31-2023 End: 08-31-2023 take 25 mg by mouth every six hours Promethazine Discontinued 25 MG PO Q6H August 31, 2023 12:00am August 31, 2023 11:49am rosuvastatin calcium 20 mg oral tablet (20 sources) HMG-CoA Reductase Inhibitor Start: 08-31-2023 End: 02-13-2024 take 40 mg by mouth once daily at bedtime Rosuvastatin Discontinued 40 MG PO Daily at bedtime August 31, 2023 12:00am February 13, 2024 7:26pm Start: 08-31-2023 End: 08-31-2023 take 20 mg by mouth once daily at bedtime Rosuvastatin Discontinued 20 MG PO Daily at bedtime August 31, 2023 12:00am August 31, 2023 11:49am Start: 06-11-2019 End: 06-01-2023 take 2 tablets by mouth at bedtime Rosuvastatin (Crestor) 20 mg Tablet Discontinued 40 MG PO Bedtime 30 June 11, 2019 2:17pm June 01, 2023 11:22am Start: 06-01-2019 End: 06-11-2019 take 1 tablet by mouth at bedtime Rosuvastatin (Crestor) 20 mg Tablet Discontinued 20 MG PO Bedtime June 01, 2019 12:00am June 11, 2019 2:18pm take 1 tablet by yessica once daily Rosuvastatin Calcium 40 MG Oral Tablet TAKE 1 TABLET DAILY. Quantity: 90 Refills: 3 Ordered: 06-Mar-2023 DO Active Vitamin B Complex Oral Capsule (6 sources) take 1 capsule by mouth once daily Vitamin B Complex Oral Capsule TAKE 1 CAPSULE Daily Quantity: 0 Refills: 0 Ordered: 06-Mar-2023 DO Active zolpidem tartrate 5 mg oral tablet (20 sources) gamma-Aminobutyri c Acid-ergic Agonist Start: 01-20-2018 End: 02-22-2024 take 5 mg by mouth at bedtime Zolpidem Discontinued 5 MG PO Bedtime January 20, 2018 12:00am February 22, 2024 12:08pm Problems Active Problems Problem Classification Problem Date Documented Date Episodic/Chronic Abdominal pain (14 sources) Abdominal pain; Translations: [Unspecified abdominal pain] Onset: 3 08-31-2023 Episodic Acute myocardial infarction (18 sources) Myocardial infarction; Translations: [Myocardial infarction type 2] 06-09-2019 Chronic Administrative/social admission (3 sources) Follow-up status; Translations: [Other specified counseling] Episodic Cardiac dysrhythmias (2 sources) Nonsustained ventricular tachycardia ; Translations: [Nonsustained ventricular tachycardia] 02-21-2024 Chronic Chronic kidney disease (20 sources) Chronic kidney disease stage 3B ; Translations: [Chronic kidney disease, Stage III (moderate)] Onset: 3 05-30-2023 Chronic Chronic kidney disease (2 sources) Chronic kidney disease; Translations: [Chronic kidney disease, stage 3 unspecified] Onset: 3 Chronic ulcer of skin (20 sources) Chronic non-pressure ulcer of calf extending to fat level; Translations: [Non-pressure chronic ulcer of left calf with fat layer exposed] Onset: 4 Chronic Congestive heart failure; nonhypertensive (20 sources) Diastolic heart failure; Translations: [Unspecified diastolic (congestive) heart failure] Onset: 3 06-09-2019 Chronic Congestive heart failure; nonhypertensive (2 sources) Congestive heart failure; nonhypertensive; Translations: [Right heart failure, unspecified] Onset: 3 Coronary atherosclerosis and other heart disease (20 sources) Coronary arteriosclerosis; Translations: [Atherosclerotic heart disease of [place] coronary artery without angina pectoris] Onset: 4 06-10-2019 Chronic Coronary atherosclerosis and other heart disease (20 sources) Past history of procedure; Translations: [Coronary angioplasty status] Onset: 4 06-09-2019 Episodic Coronary atherosclerosis and other heart disease (2 sources) Coronary atherosclerosis and other heart disease; Translations: [Atherosclerosis of [place] arteries of extremities with intermittent claudication, bilateral legs] Onset: 3 Deficiency and other anemia (18 sources) Anemia; Translations: [Anemia, unspecified] 06-10-2019 Episodic Diabetes mellitus with complications (20 sources) Neuropathy due to diabetes mellitus; Translations: [Type 2 diabetes mellitus with diabetic neuropathy, unspecified] Onset: 3 06-09-2019 Chronic Diabetes mellitus without complication (20 sources) Diabetes mellitus; Translations: [Type 2 diabetes mellitus without complications] Onset: 3 06-09-2019 Chronic Diabetes mellitus without complication (1 source) Diabetes mellitus without complication Onset: 3 Diseases of white blood cells (20 sources) Leukocytosis; Translations: [Elevated white blood cell count, unspecified] Onset: 4 12-08-2021 Chronic Disorders of lipid metabolism (7 sources) Hyperlipidemia; Translations: [Other and unspecified hyperlipidemia] 03-22-2023 Chronic Diverticulosis and diverticulitis (20 sources) Diverticular disease; Translations: [Diverticulosis of intestine, part unspecified, without perforation or abscess without bleeding] Onset: 3 06-01-2019 Chronic E Codes: Fall (20 sources) Fall; Translations: [Unspecified fall, initial encounter] 04-11-2023 Episodic Esophageal disorders (20 sources) Gastroesophageal reflux disease; Translations: [Gastro-esophageal reflux disease without esophagitis] Onset: 3 06-01-2019 Chronic Esophageal disorders (1 source) Esophageal disorders Onset: 3 Essential hypertension (20 sources) Hypertensive disorder; Translations: [Essential (primary) hypertension] Onset: 3 06-09-2019 Chronic Fluid and electrolyte disorders (20 sources) Lactic acidosis; Translations: [Acidosis] Onset: 3 12-08-2021 Episodic Genitourinary symptoms and ill-defined conditions (13 sources) Retention of urine; Translations: [Increased frequency of urination] Onset: 3 08-31-2023 Episodic Headache; including migraine (6 sources) Migraine; Translations: [Migraine, unspecified, without mention of intractable migraine without mention of status migrainosus] Chronic Hypertension with complications and secondary hypertension (17 sources) Chronic kidney disease due to hypertension; Translations: [Hypertensive chronic kidney disease with stage 1 through stage 4 chronic kidney disease, or unspecified chronic kidney disease] Onset: 3 05-30-2023 Chronic Malaise and fatigue (20 sources) Asthenia; Translations: [Weakness] 05-10-2023 Episodic Miscellaneous mental health disorders (1 source) Chronic insomnia; Translations: [Psychophysiologic insomnia] Chronic Mood disorders (1 source) Mood disorders Onset: 3 Mycoses (18 sources) Mycosis; Translations: [Candidiasis, unspecified] 01-20-2018 Episodic Nausea and vomiting (20 sources) Nausea; Translations: [Nausea] Onset: 4 12-08-2021 Episodic Noninfectious gastroenteritis (3 sources) Gastroenteritis; Translations: [Noninfective gastroenteritis and colitis, unspecified] 02-13-2024 Episodic Nonspecific chest pain (20 sources) Chest pain; Translations: [Chest pain, unspecified] 06-01-2019 Episodic Osteoarthritis (18 sources) Osteoarthritis; Translations: [Unspecified osteoarthritis, unspecified site] 06-01-2019 Chronic Other aftercare (2 sources) Post-discharge follow-up; Translations: [Other follow-up examination] Episodic Other and unspecified benign neoplasm (3 sources) Benign neoplastic disease; Translations: [Benign neoplasm, unspecified site] 01-04-2024 Episodic Other and unspecified benign neoplasm (3 sources) Benign neoplasm, unspecified site; Translations: [Benign neoplasm of unspecified site] 01-04-2024 Episodic Other circulatory disease (6 sources) History of angioplasty; Translations: [Other postprocedural status] Episodic Other circulatory disease (1 source) Low blood pressure Onset: 3 Episodic Other circulatory disease (1 source) Patient status finding; Translations: [Peripheral vascular angioplasty status] 03-15-2023 Episodic Other connective tissue disease (18 sources) Paraparesis; Translations: [Other symptoms and signs involving the musculoskeletal system] 06-09-2019 Episodic Other diseases of kidney and ureters (1 source) Secondary hyperparathyroidism; Translations: [Secondary hyperparathyroidism of renal origin] Chronic Other diseases of veins and lymphatics (6 sources) Non-infectious disorder of lymphatics; Translations: [Other specified noninfective disorders of lymphatic vessels and lymph nodes] 11-30-2023 Chronic Other diseases of veins and lymphatics (6 sources) Lymphedema of bilateral lower limbs; Translations: [Lymphedema, not elsewhere classified] 11-30-2023 Chronic Other diseases of veins and lymphatics (6 sources) Lymphedema, not elsewhere classified; Translations: [Other lymphedema] 11-30-2023 Chronic Other diseases of veins and lymphatics (6 sources) Other specified noninfective disorders of lymphatic vessels and lymph nodes; Translations: [Other noninfectious disorders of lymphatic channels] 11-30-2023 Chronic Other diseases of veins and lymphatics (6 sources) Peripheral venous insufficiency; Translations: [Venous insufficiency (chronic) (peripheral)] 11-30-2023 Episodic Other diseases of veins and lymphatics (6 sources) Venous insufficiency (chronic) (peripheral); Translations: [Venous (peripheral) insufficiency, unspecified] 11-30-2023 Episodic Other gastrointestinal disorders (18 sources) Constipation; Translations: [Constipation, unspecified] 12-10-2021 Episodic Other gastrointestinal disorders (1 source) Dysphagia; Translations: [Dysphagia, unspecified] Episodic Other gastrointestinal disorders (3 sources) Diarrhea; Translations: [Diarrhea, unspecified] 02-13-2024 Episodic Other gastrointestinal disorders (2 sources) Diarrhea, unspecified; Translations: [Diarrhea] Onset: 02-13-2024 Episodic Other hematologic conditions (18 sources) High troponin I level; Translations: [Other specified abnormalities of plasma proteins] 12-08-2021 Episodic Other hematologic conditions (18 sources) Raised cardiac enzyme or marker; Translations: [Other specified abnormalities of plasma proteins] 06-09-2019 Episodic Other hematologic conditions (3 sources) Other specified abnormalities of plasma proteins; Translations: [Other abnormal blood chemistry] 05-28-2023 Episodic Other injuries and conditions due to external causes (18 sources) Contusion of multiple sites; Translations: [Unspecified multiple injuries, initial encounter] 05-19-2022 Episodic Other injuries and conditions due to external causes (20 sources) Minor head injury; Translations: [Unspecified injury of head, initial encounter] 06-22-2020 Episodic Other injuries and conditions due to external causes (18 sources) Injury of head; Translations: [Unspecified injury of head, initial encounter] 08-04-2019 Episodic Other lower respiratory disease (18 sources) Hypoxemia; Translations: [Hypoxemia] 12-08-2021 Episodic Other lower respiratory disease (18 sources) Cough; Translations: [Cough] 12-08-2021 Episodic Other lower respiratory disease (6 sources) Dyspnea on exertion; Translations: [Other respiratory abnormalities] Episodic Other nervous system disorders (1 source) Sleep-wake schedule disorder, delayed phase type; Translations: [Circadian rhythm sleep disorder, delayed sleep phase type] Chronic Other non-traumatic joint disorders (5 sources) Shoulder pain; Translations: [Pain in unspecified shoulder] 12-14-2023 Episodic Other nutritional; endocrine; and metabolic disorders (20 sources) Morbid obesity; Translations: [Morbid (severe) obesity due to excess calories] Onset: 3 06-01-2019 Chronic Other nutritional; endocrine; and metabolic disorders (20 sources) Body mass index 40+ - severely obese; Translations: [Morbid (severe) obesity due to excess calories] 12-11-2021 Chronic Other nutritional; endocrine; and metabolic disorders (18 sources) Alveolar hypoventilation; Translations: [Morbid (severe) obesity with alveolar hypoventilation] 12-11-2021 Chronic Other nutritional; endocrine; and metabolic disorders (14 sources) Hypomagnesemia; Translations: [Hypomagnesemia] 05-05-2023 Chronic Other nutritional; endocrine; and metabolic disorders (10 sources) Hypomagnesemia; Translations: [Disorders of magnesium metabolism] Onset: 4 05-09-2023 Chronic Other nutritional; endocrine; and metabolic disorders (20 sources) Morbid (severe) obesity due to excess calories; Translations: [Morbid obesity] Onset: 3 05-09-2023 Chronic Other nutritional; endocrine; and metabolic disorders (8 sources) Morbid (severe) obesity with alveolar hypoventilation; Translations: [Obesity hypoventilation syndrome] Onset: 4 05-09-2023 Chronic Other nutritional; endocrine; and metabolic disorders (1 source) Obesity caused by energy imbalance; Translations: [Morbid (severe) obesity due to excess calories] 03-22-2023 Chronic Other nutritional; endocrine; and metabolic disorders (3 sources) Body mass index (BMI) 50.0-59.9, adult; Translations: [Body Mass Index 50.0-59.9, adult] Onset: 3 02-13-2024 Chronic Other skin disorders (6 sources) Hyperpigmentation of skin; Translations: [Disorder of pigmentation, unspecified] 11-30-2023 Episodic Other skin disorders (6 sources) Hemosiderin pigmentation of skin; Translations: [Other specified disorders of pigmentation] 11-30-2023 Episodic Other skin disorders (6 sources) Other specified disorders of pigmentation; Translations: [Other dyschromia] 11-30-2023 Episodic Other skin disorders (6 sources) Disorder of pigmentation, unspecified; Translations: [Dyschromia, unspecified] 11-30-2023 Episodic Pneumonia (except that caused by tuberculosis or sexually transmitted disease) (18 sources) Pneumonia; Translations: [Pneumonia, unspecified organism] 07-12-2020 Episodic Residual codes; unclassified (6 sources) Sleep apnea; Translations: [Unspecified sleep apnea] Chronic Residual codes; unclassified (18 sources) Chill; Translations: [Chills (without fever)] 12-08-2021 Episodic Respiratory failure; insufficiency; arrest (adult) (20 sources) Acute respiratory failure; Translations: [Acute respiratory failure with hypoxia] Onset: 4 12-10-2021 Episodic Respiratory failure; insufficiency; arrest (adult) (2 sources) Respiratory failure; insufficiency; arrest (adult) Onset: 3 Septicemia (except in labor) (20 sources) Sepsis; Translations: [Sepsis, unspecified organism] 07-12-2020 Episodic Septicemia (except in labor) (2 sources) Septicemia (except in labor); Translations: [Sepsis, unspecified organism] Onset: 3 Skin and subcutaneous tissue infections (13 sources) Cellulitis; Translations: [Cellulitis, unspecified] Onset: 4 08-31-2023 Episodic Sprains and strains (7 sources) Lumbar sprain; Translations: [Sprain of ligaments of lumbar spine, initial encounter] 09-11-2023 Episodic Superficial injury; contusion (20 sources) Contusion of coccyx; Translations: [Contusion of lower back and pelvis, initial encounter] 08-04-2019 Episodic Unclassified (12 sources) Onset: 3 Unclassified (13 sources) Inflammatory disorder; Translations: [Inflammation] 11-30-2023 Unclassified (1 source) Other ventricular tachycardia; Translations: [Other ventricular tachycardia] Onset: 4 Unclassified (1 source) Pain in left shoulder; Translations: [Pain in left shoulder] Onset: 4 Urinary tract infections (20 sources) Urinary tract infectious disease; Translations: [Urinary tract infection, site not specified] 12-11-2021 Episodic Urinary tract infections (2 sources) Urinary tract infections; Translations: [Urinary tract infection, site not specified] Onset: 3 Varicose veins of lower extremity (13 sources) Varicose veins of left lower extremity with ulcer of calf; Translations: [Varicose ulcer of lower extremity] Onset: 4 Episodic Past or Other Problems Problem Classification Problem Date Documented Da te Episodic/Chronic Acute and unspecified renal failure (20 sources) Injury of kidney; Translations: [Acute kidney failure, unspecified] Onset: 05-12-2023 06-09-2019 Episodic Bacterial infection; unspecified site (20 sources) Microbiologic culture positive; Translations: [Bacteremia] Onset: 05-28-2023 05-29-2023 Episodic Diabetes mellitus with complications (1 source) Diabetes mellitus with complications; Translations: [Type II diabetes mellitus with complication, uncontrolled] Fever of unknown origin (20 sources) Pyrexia of unknown origin; Translations: [Fever, unspecified] Onset: 08-31-2023 07-15-2020 Episodic Other gastrointestinal disorders (4 sources) Constipation, unspecified; Translations: [Constipation, unspecified] Onset: 08-31-2023 08-31-2023 Episodic Other skin disorders (1 source) Unspecified skin changes; Translations: [Unspecified skin changes] Onset: 08-31-2023 Episodic Spondylosis; intervertebral disc disorders; other back problems (20 sources) Lumbar radiculopathy; Translations: [Radiculopathy, lumbar region] Onset: 05-28-2023 01-20-2018 Episodic Unclassified (6 sources) Patient status finding; Translations: [Patient new to provider] Resolved: 06-26-2023 Unclassified (6 sources) Never smoked tobacco; Translations: [Never a smoker] Unclassified (1 source) Long-term current use of insulin; Translations: [Insulin long-term use] Results Test Name Value Interpretation Reference Range Facility Basic Metabolic Panelon 01-29 Anion gap [Moles/Vol] 14.3 mmol/L Normal 6.0-15.0 [facility] Comment on above: Performed By: #### B MP, DIFF CBC, MG ####[address] Calcium [Mass/Vol] 8.7 mg/dL Normal 8.6-10.3 [facility] Comment on above: Performed By: #### B MP, DIFF CBC, MG ####[place] [id number] [facility] Chloride [Moles/Vol] 96 mmol/L Low 98-107 [facility] Comment on above: Performed By: #### B MP, DIFF CBC, MG ####[place] [id number] [facility] CO2 [Moles/Vol] 33.9 mmol/L High 21.0-31.0 [facility] Comment on above: Performed By: #### B MP, DIFF CBC, MG ####[place] [id number] [facility] Creatinine [Mass/Vol] 1.30 mg/dL High 0.60-1.20 [facility] Comment on above: Performed By: #### B MP, DIFF CBC, MG ####[address] [address] [place] Creatinine Clr Calc Pharmacy 64.89 Normal [facility] Comment on above: Performed By: #### B MP, DIFF CBC, MG ####[place] [id number] [place] GFR/1.73 sq M.predicted MDRD (S/P/Bld) [Vol rate/Area] 44.513 mL/min/{1.73_m2} Normal [facility] Comment on above: Performed By: #### B MP, DIFF CBC, MG ####[place] [id number] Glucose [Mass/Vol] 69 mg/dL Low 70-100 [facility] Comment on above: Result Comment: [place] Glucose Reference Range is dependent on time and content of last meal. Glucose of more than 200 mg/dL in a nonstressed, ambulatory subject supports the diagnosis of Diabetes Mellitus. ADA recommended reference range Performed By: #### B MP, DIFF CBC, MG ####[facility] [id number] Potassium [Moles/Vol] 4.2 mmol/L Normal 3.5-5.1 [facility] Comment on above: Performed By: #### B MP, DIFF CBC, MG ####[facility] Sodium [Moles/Vol] 140 mmol/L Normal 136-145 [facility] Comment on above: Performed By: #### B MP, DIFF CBC, MG ####[facility] [place] [id number] [facility] Urea nitrogen [Mass/Vol] 44 mg/dL High 7-25 [facility] Comment on above: Performed By: #### B MP, DIFF CBC, MG ####[facility] [place] [id number] [facility] Basophils Auto (Bld) [#/Vol] Ordered By: Sawyer Dozier on 02-22-2024 Basophils (Bld) [#/Vol] N/A [facility] Basophils/100 WBC Auto (Bld) Ordered By: Sawyer Dozier on 02-22-2024 Basophils/100 WBC (Bld) N/A [facility] Calcium [Mass/volume] in Ser um or PlasmaOrdered By: Sawyer Dozier on 02-22-2024 Calcium [Mass/Vol] 8.7 mg/dL 8.6-10.[address] [facility] Carbon dioxide, total [Moles /volume] in Serum or PlasmaOrdered By: Sawyer Dozier on 02-22-2024 CO2 [Moles/Vol] 33.9 mmol/L 21.0-31.0 [facility] Chloride [Moles/volume] in S moriah or PlasmaOrdered By: Sawyer Dozier on 02-22-2024 Chloride [Moles/Vol] 96 mmol/L 98-107 [facility] Creatinine [Mass/volume] in Serum or PlasmaOrdered By: Sawyer Dozier on 02-22-2024 Creatinine [Mass/Vol] 1.30 mg/dL 0.60-1.20 [facility] Diff and CBCon 02-22-2024 Eosinophils/100 WBC (Bld) 3 % Normal 1-3 [facility] Comment on above: Performed By: #### B MP, DIFF CBC, MG ####[address] Erythrocyte distribution width (RBC) [Ratio] 14.3 % Normal 11.9-15.3 [facility] Comment on above: Performed By: #### B MP, DIFF CBC, MG ####[address] Hematocrit (Bld) [Volume fraction] 34.0 % Normal 34.0-46.4 [facility] Comment on above: Performed By: #### B MP, DIFF CBC, MG ####[address] Hemoglobin (Bld) [Mass/Vol] 11.2 g/dL Low 11.8-15.4 [facility] Comment on above: Performed By: #### B MP, DIFF CBC, MG ####[address] Lymphocytes/100 WBC (Bld) 9 % Low 18-42 [facility] Comment on above: Performed By: #### B MP, DIFF CBC, MG ####[address] MCH (RBC) [Entitic mass] 30.6 pg Normal 24.7-34.3 [facility] Comment on above: Performed By: #### B MP, DIFF CBC, MG ####[place] [id number] MCV (RBC) [Entitic vol] 92.6 fL Normal 80-100 [facility] Comment on above: Performed By: #### B MP, DIFF CBC, MG ####[address] Mean Corpuscular HGB Conc 33.0 g/dL Normal 32.0-35.0 [facility] Comment on above: Performed By: #### B MP, DIFF CBC, MG ####[address] Monocytes/100 WBC (Bld) 4 % Normal 2-11 [facility] Comment on above: Performed By: #### B MP, DIFF CBC, MG ####[address] Myelocytes 3 % High 0-0 [facility] Comment on above: Performed By: #### B MP, DIFF CBC, MG ####[address] Platelet Estimate Normal Normal Normal [facility] Comment on above: Performed By: #### B MP, DIFF CBC, MG ####[address] Platelet mean volume (Bld) [Entitic vol] 6.5 fL Normal 6.3-10.7 [facility] Comment on above: Performed By: #### B MP, DIFF CBC, MG ####[address] Platelet Morphology Normal Normal Normal [facility] Comment on above: Result Comment: PERF ORMED BY:[address] [place] [phone] MEDICAL DIRECTORXAVIER AGARWAL M.D. Performed By: #### B MP, DIFF CBC, MG ####[address] Platelets (Bld) [#/Vol] 285 10*3/uL Normal 150-450 [facility] Comment on above: Performed By: #### B MP, DIFF CBC, MG ####[place] [address] RBC (Bld) [#/Vol] 3.67 10*6/uL Normal 3.60-5.00 [facility] Comment on above: Performed By: #### B MP, DIFF CBC, MG ####[place] [address] RBC morphology finding Nom (Bld) Normal Normal Normal [facility] Comment on above: Performed By: #### B MP, DIFF CBC, MG ####[place] [address] Segmented neutrophils/100 WBC (Bld) 82 % High 50-70 [facility] Comment on above: Performed By: #### B MP, DIFF CBC, MG ####[place] [address] WBC (Bld) [#/Vol] 17.1 10*3/uL High 3.8-11.6 [facility] Comment on above: Performed By: #### B MP, DIFF CBC, MG ####[address] Eosinophils Auto (Bld) [#/Vo l]Ordered By: Sawyer Dozier on 02-22-2024 Eosinophils (Bld) [#/Vol] N/A [facility] Eosinophils/100 WBC Auto (Bl d)Ordered By: Sawyer Dozier on 02-22-2024 Eosinophils/100 WBC (Bld) N/A [facility] Eosinophils/100 WBC Manual c nt (Bld)Ordered By: Sawyer Dozier on 02-22-2024 Eosinophils/100 WBC (Bld) 3 % 1-3 [facility] Erythrocyte distribution wid th Auto (RBC) [Ratio]Ordered By: Sawyer Dozier on 02-22-2024 Erythrocyte distribution width (RBC) [Ratio] 14.3 % 11.9-15.3 [facility] Glucose Glucometer (BldC) [M ass/Vol]Ordered By: Sawyer Dozier on 02-22-2024 Glucose [Mass/Vol] 153 mg/dL [facility] Comment on above: Random Glucose Refer ence Range is dependent on time and content of last meal. Glucose of more than 200 mg/dL in a nonstressed, ambulatory subject supports the diagnosis of Diabetes Mellitus. Glucose Poct Glucometerson 0 02-22-2024 Glucose [Mass/Vol] 153 mg/dL Normal [facility] Comment on above: Result Comment: [place] om Glucose Reference Range is dependent on time and content of last meal. Glucose of more than 200 mg/dL in a nonstressed, ambulatory subject supports the diagnosis of Diabetes Mellitus.PERFORMED BY:[place] [address] [place], [place] [phone] MEDICAL DIRECTORXAVIER AGARWAL M.D. Performed By: #### G LULS ####Point of Care testing, Glucose [Mass/Vol] 96 mg/dL Normal [facility] Comment on above: Result Comment: [place] om Glucose Reference Range is dependent on time and content of last meal. Glucose of more than 200 mg/dL in a nonstressed, ambulatory subject supports the diagnosis of Diabetes Mellitus.PERFORMED BY:[place] [address] [place], [place] [phone] MEDICAL DIRECTORXAVIER AGARWAL M.D. Performed By: #### G LULS ####Point of Care testing, Glucose [Mass/volume] in Ser um or PlasmaOrdered By: Sawyer Dozier on 02-22-2024 Glucose [Mass/Vol] 69 mg/dL 70-[address] [facility] Comment on above: ADA recommended refe rence rangeRandom Glucose Reference Range is dependent on time and content of last meal. Glucose of more than 200 mg/dL in a nonstressed, ambulatory subject supports the diagnosis of Diabetes Mellitus. Hematocrit Auto (Bld) [Volum e fraction]Ordered By: Sawyer Dozier on 02-22-2024 Hematocrit (Bld) [Volume fraction] 34.0 % 34.0-46.4 [facility] Hemoglobin [Mass/volume] in BloodOrdered By: Sawyer Dozier on 02-22-2024 Hemoglobin (Bld) [Mass/Vol] 11.2 g/dL 11.8-15.4 [facility] Leukocytes [#/volume] correc babak for nucleated erythrocytes in Blood by Automated counOrdered By: Sawyer Dozier on 02-22-2024 WBC corrected for nucl RBC Auto (Bld) [#/Vol] 17.1 10*3/uL 3.8-11.6 [facility] Lymphocytes Auto (Bld) [#/Vo l]Ordered By: Sawyer Dozier on 02-22-2024 Lymphocytes (Bld) [#/Vol] N/A [facility] Lymphocytes/100 WBC Auto (Bl d)Ordered By: Sawyer Dozier on 02-22-2024 Lymphocytes/100 WBC (Bld) N/A [facility] Lymphocytes/100 WBC Manual c nt (Bld)Ordered By: Sawyer Dozier on 02-22-2024 Lymphocytes/100 WBC (Bld) 9 % 18-42 [facility] MCH Auto (RBC) [Entitic mass ]Ordered By: Sawyer Dozier on 02-22-2024 MCH (RBC) [Entitic mass] 30.6 pg 24.7-34.3 [facility] MCHC Auto (RBC) [Mass/Vol]Or dered By: Sawyer Dozier on 02-22-2024 MCHC (RBC) [Mass/Vol] 33.0 g/dL 32.0-35.0 [facility] MCV Auto (RBC) [Entitic vol] Ordered By: Sawyer Dozier on 02-22-2024 MCV (RBC) [Entitic vol] 92.6 fL 80-100 [facility] Magnesiumon 02-22-2024 Magnesium [Mass/Vol] 1.9 mg/dL Normal 1.9-2.7 [facility] Comment on above: Result Comment: PERF ORMED BY:[facility] [place], [place] [phone] MEDICAL DIRECTORXAVIER AGARWAL M.D. Performed By: #### B MP, DIFF CBC, MG ####[facility] [id number] [place] [address] [facility] Magnesium [Mass/volume] in S moriah or PlasmaOrdered By: Sawyer Dozier on 02-22-2024 Magnesium [Mass/Vol] 1.9 mg/dL 1.9-2.7 [facility] Monocytes Auto (Bld) [#/Vol] Ordered By: Sawyer Dozier on 02-22-2024 Monocytes (Bld) [#/Vol] N/A [facility] Monocytes/100 WBC Auto (Bld) Ordered By: Sawyer Dozier on 02-22-2024 Monocytes/100 WBC (Bld) N/A [facility] Monocytes/100 WBC Manual cnt (Bld)Ordered By: Sawyer Dozier on 02-22-2024 Monocytes/100 WBC (Bld) 4 % 2-11 [facility] Myelocytes/100 WBC Manual cn t (Bld)Ordered By: Sawyer Dozier on 02-22-2024 Myelocytes/100 WBC (Bld) 3 % 0-0 [facility] Neutrophils Auto (Bld) [#/Vo l]Ordered By: Sawyer Dozier on 02-22-2024 Neutrophils (Bld) [#/Vol] N/A [facility] Neutrophils/100 WBC Auto (Bl d)Ordered By: Sawyer Dozier on 02-22-2024 Neutrophils/100 WBC (Bld) N/A [facility] No Panel InformationOrdered By: Sawyer Dozier on 02-22-2024 Estimated GFR (CKD-EPI) 44.513 mL/Min [facility] Creatinine Clearance (Chem 64.89 [facility] Nucleated erythrocytes [Pres ence] in Blood by Automated countOrdered By: Sawyer Dozier on 02-22-2024 Nucleated RBC Auto Ql (Bld) N/A [facility] Platelet adequacy [Presence] in Blood by Light microscopyOrdered By: Sawyer Dozier on 02-22-2024 Platelets LM Ql (Bld) Normal Normal [facility] Platelet mean volume Auto (B ld) [Entitic vol]Ordered By: Sawyer Dozier on 02-22-2024 Platelet mean volume (Bld) [Entitic vol] 6.5 fL 6.3-10.7 [facility] Platelet morphology finding [Identifier] in BloodOrdered By: Sawyer Dozier on 02-22-2024 Platelet morphology finding Nom (Bld) Normal Normal [facility] Platelets Auto (Bld) [#/Vol] Ordered By: Sawyer Dozier on 02-22-2024 Platelets (Bld) [#/Vol] 285 10*3/uL 150-450 [facility] Potassium [Moles/volume] in Serum or PlasmaOrdered By: Sawyer Dozier on 02-22-2024 Potassium [Moles/Vol] 4.2 mmol/L 3.5-5.1 [facility] RBC Auto (Bld) [#/Vol]Ordere d By: Sawyer Dozier on 02-22-2024 RBC (Bld) [#/Vol] 3.67 10*6/uL 3.60-5.00 [facility] RBC morphologyOrdered By: Ra raiza Dozier on 02-22-2024 RBC morphology finding Nom (Bld) Normal Normal [facility] Segmented neutrophils/100 WB C Manual cnt (Bld)Ordered By: Sawyer Dozier on 02-22-2024 Segmented neutrophils/100 WBC (Bld) 82 % 50-70 [facility] Serum or plasma anion gap de terminationOrdered By: Sawyer Dozier on 02-22-2024 Anion gap [Moles/Vol] 14.3 mmol/L 6.0-15.0 [facility] Sodium [Moles/volume] in Ser um or PlasmaOrdered By: Sawyer Dozier on 02-22-2024 Sodium [Moles/Vol] 140 mmol/L 136-[address] [facility] Urea nitrogen [Mass/volume] in Serum or PlasmaOrdered By: Sawyer Dozier on 02-22-2024 Urea nitrogen [Mass/Vol] 44 mg/dL 05-23 [facility] WBC Auto (Bld) [#/Vol]Ordere d By: Sawyer Dozier on 02-22-2024 WBC (Bld) [#/Vol] 17.1 10*3/uL 3.8-11.6 [facility] Basic Metabolic Panelon 01-29 Anion gap [Moles/Vol] 12.7 mmol/L Normal 6.0-15.0 [facility] Comment on above: Performed By: #### B MP, MG ####[address] Calcium [Mass/Vol] 8.7 mg/dL Normal 8.6-10.3 [facility] Comment on above: Performed By: #### B MP, MG ####[address] Chloride [Moles/Vol] 93 mmol/L Low 98-107 [facility] Comment on above: Performed By: #### B MP, MG ####[address] CO2 [Moles/Vol] 35.9 mmol/L High 21.0-31.0 [facility] Comment on above: Performed By: #### B MP, MG ####[address] Creatinine [Mass/Vol] 1.19 mg/dL Normal 0.60-1.20 [facility] Comment on above: Performed By: #### B MP, MG ####[address] Creatinine Clr Calc Pharmacy 70.83 Normal [facility] Comment on above: Performed By: #### B MP, MG ####[address] GFR/1.73 sq M.predicted MDRD (S/P/Bld) [Vol rate/Area] 49.495 mL/min/{1.73_m2} Normal [facility] Comment on above: Performed By: #### B MP, MG ####[address] Glucose [Mass/Vol] 109 mg/dL High 70-100 [facility] Comment on above: Result Comment: [place] Glucose Reference Range is dependent on time and content of last meal. Glucose of more than 200 mg/dL in a nonstressed, ambulatory subject supports the diagnosis of Diabetes Mellitus. ADA recommended reference range Performed By: #### B MP, MG ####[place] [address] [place] [address] [facility] Potassium [Moles/Vol] 3.6 mmol/L Normal 3.5-5.1 [facility] Comment on above: Performed By: #### B MP, MG ####[place] [address] [place] [id number] [facility] Sodium [Moles/Vol] 138 mmol/L Normal 136-145 [facility] Comment on above: Performed By: #### B MP, MG ####[place] [address] [place] [id number] [facility] Urea nitrogen [Mass/Vol] 50 mg/dL High 7-25 [facility] Comment on above: Performed By: #### B MP, MG ####[place] [address] [place] [id number] [facility] Clostridioides difficile tox in B tcdB gene [Presence] in Stool by BRANDY with probe deteOrdered By: Deep Eubanks on 02-21-2024 C. difficile toxin B tcdB gene BRANDY+probe Ql (Stl) Negative Negative [facility] Comment on above: Testing performed by RT-PCR Clostridium Difficileon 01-29 Clostridium Difficile Negative Normal Negative [facility] Comment on above: Order Comment: > or = to 3 loose/watery stools in the last 24 HRS? Y Is patient on promotility agents or tube feeding? Y Result Comment: Test ing performed by RT-PCRPERFORMED BY:[address] [place], [place] [phone] MEDICAL DIRECTORXAVIER AGARWAL M.D. Performed By: #### C DT ####[place] [address] [place] [address] [facility] ECH echo transthoracicon ECH echo transthoracic Normal [facility] Gastrointestinal Profile, PC Guillermo 02-21-2024 Adenovirus F 40/41 Not detected Normal Not Detected [facility] Comment on above: Order Comment: SOURC E OF SPECIMEN: stool Performed By: #### G I PROFILE, STL ####[facility] ,#### CUSTOOL ####[address] Astrovirus Not detected Normal Not Detected [facility] Comment on above: Order Comment: SOURC E OF SPECIMEN: stool Performed By: #### G I PROFILE, STL ####[facility] ,#### CUSTOOL ####[place] [id number] [facility] C Difficile Toxin A/B Not detected Normal Not Detected [facility] Comment on above: Order Comment: SOURC E OF SPECIMEN: stool Performed By: #### G I PROFILE, STL ####[facility] ,#### CUSTOOL ####[address] Campylobacter Not detected Normal Not Detected [facility] Comment on above: Order Comment: SOURC E OF SPECIMEN: stool Performed By: #### G I PROFILE, STL ####[facility] ,#### CUSTOOL ####[address] Cryptosporidium Not detected Normal Not Detected [facility] Comment on above: Order Comment: SOURC E OF SPECIMEN: stool Performed By: #### G I PROFILE, STL ####[facility] ,#### CUSTOOL ####[place] [id number] [facility] Cyclospora cayetanensis Not detected Normal Not Detected [facility] Comment on above: Order Comment: SOURC E OF SPECIMEN: stool Performed By: #### G I PROFILE, STL ####[facility] ,#### CUSTOOL ####[place] [id number] [facility] E coli O157 Not applicable Normal Not Detected [facility] Comment on above: Order Comment: SOURC E OF SPECIMEN: stool Performed By: #### G I PROFILE, STL ####[facility] ,#### CUSTOOL ####[address] [address] [facility] Entamoeba histolytica Not detected Normal Not Detected [facility] Comment on above: Order Comment: SOURC E OF SPECIMEN: stool Performed By: #### G I PROFILE, STL ####[facility] ,#### CUSTOOL ####[address] [address] [place] Enteroaggregative E coli Not detected Normal Not Detected [facility] Comment on above: Order Comment: SOURC E OF SPECIMEN: stool Performed By: #### G I PROFILE, STL ####[facility] ,#### CUSTOOL ####[address] [address] [facility] Enteropathogenic E coli Not detected Normal Not Detected [facility] Comment on above: Order Comment: SOURC E OF SPECIMEN: stool Performed By: #### G I PROFILE, STL ####[facility] ,#### CUSTOOL ####[address] [address] [place] Enterotoxigenic E coli Not detected Normal Not Detected [facility] Comment on above: Order Comment: SOURC E OF SPECIMEN: stool Performed By: #### G I PROFILE, STL ####[facility] ,#### CUSTOOL ####[address] [address] [place] Giardia lamblia Not detected Normal Not Detected [facility] Comment on above: Order Comment: SOURC E OF SPECIMEN: stool Performed By: #### G I PROFILE, STL ####[facility] ,#### CUSTOOL ####[address] [address] [place] Norovirus GI/GII Not detected Normal Not Detected [facility] Comment on above: Order Comment: SOURC E OF SPECIMEN: stool Performed By: #### G I PROFILE, STL ####[facility] ,#### CUSTOOL ####[address] [address] [facility] Plesiomonas shigelloides Not detected Normal Not Detected [facility] Comment on above: Order Comment: SOURC E OF SPECIMEN: stool Performed By: #### G I PROFILE, STL ####[facility] ,#### CUSTOOL ####[address] [address] [facility] Rotavirus A Not detected Normal Not Detected [facility] Comment on above: Order Comment: SOURC E OF SPECIMEN: stool Performed By: #### G I PROFILE, STL ####[facility] ,#### CUSTOOL ####[address] [address] [facility] Salmonella Not detected Normal Not Detected [facility] Comment on above: Order Comment: SOURC E OF SPECIMEN: stool Performed By: #### G I PROFILE, STL ####[facility] ,#### CUSTOOL ####[address] [address] [place] [facility] Sapovirus Not detected Normal Not Detected [facility] Comment on above: Order Comment: SOURC E OF SPECIMEN: stool Result Comment: Perf ormed at: [facility] Lab[address] [id number] Freight Coordinator: Rohit Mesa MD, Phone: [phone] BY:[address] [place], [place] [phone] MEDICAL DIRECTORXAVIER AGARWAL M.D. Performed By: #### G I PROFILE, STL ####[facility] ,#### CUSTOOL ####[address] [address] [facility] Gdgkz-gxuvs-gzywealso E coli Not detected Normal Not Detected [facility] Comment on above: Order Comment: SOURC E OF SPECIMEN: stool Performed By: #### G I PROFILE, STL ####[facility] ,#### CUSTOOL ####[place] [id number] [facility] Shigella/Enteroinvasiv e E coli Not detected Normal Not Detected [facility] Comment on above: Order Comment: SOURC E OF SPECIMEN: stool Performed By: #### G I PROFILE, STL ####[facility] ,#### CUSTOOL ####[place] [id number] [facility] Vibrio Not detected Normal Not Detected [facility] Comment on above: Order Comment: SOURC E OF SPECIMEN: stool Performed By: #### G I PROFILE, STL ####[facility] ,#### CUSTOOL ####[address] Vibrio cholerae Not detected Normal Not Detected [facility] Comment on above: Order Comment: SOURC E OF SPECIMEN: stool Performed By: #### G I PROFILE, STL ####[facility] ,#### CUSTOOL ####[address] Yersinia enterocolitica Not detected Normal Not Detected [facility] Comment on above: Order Comment: SOURC E OF SPECIMEN: stool Performed By: #### G I PROFILE, STL ####[facility] ,#### CUSTOOL ####[place] [id number] [facility] Glucose Poct Glucometerson 0 02-21-2024 Glucose [Mass/Vol] 141 mg/dL Normal [facility] Comment on above: Result Comment: [place] Glucose Reference Range is dependent on time and content of last meal. Glucose of more than 200 mg/dL in a nonstressed, ambulatory subject supports the diagnosis of Diabetes Mellitus.PERFORMED BY:[address] [place], [place] [phone] MEDICAL DIRECTORXAVIER AGARWAL M.D. Performed By: #### G LULS ####Point of Care testing, Glucose [Mass/Vol] 211 mg/dL Normal [facility] Comment on above: Result Comment: [facility] Glucose Reference Range is dependent on time and content of last meal. Glucose of more than 200 mg/dL in a nonstressed, ambulatory subject supports the diagnosis of Diabetes Mellitus.PERFORMED BY:[address] [place], [place] [phone] MEDICAL DIRECTORXAVIER AGARWAL M.D. Performed By: #### G LULS ####Point of Care testing, Glucose [Mass/Vol] 225 mg/dL Normal [facility] Comment on above: Result Comment: [facility] Glucose Reference Range is dependent on time and content of last meal. Glucose of more than 200 mg/dL in a nonstressed, ambulatory subject supports the diagnosis of Diabetes Mellitus.PERFORMED BY:[address] [place], [place] [phone] MEDICAL LILIYA AGARWAL M.D. Performed By: #### G LULS ####Point of Care testing, Glucose [Mass/Vol] 126 mg/dL Normal [facility] Comment on above: Result Comment: [facility] Glucose Reference Range is dependent on time and content of last meal. Glucose of more than 200 mg/dL in a nonstressed, ambulatory subject supports the diagnosis of Diabetes Mellitus.PERFORMED BY:[address] [place], [place] [phone] MEDICAL LILIYA AGARWAL M.D. Performed By: #### G LULS ####Point of Care testing, Magnesiumon 02-21-2024 Magnesium [Mass/Vol] 1.7 mg/dL Low 1.9-2.7 [facility] Comment on above: Result Comment: PERF ORMED BY:[address] [place], [place] [phone] JACOBY AGARWAL M.D. Performed By: #### B MP, MG ####[address] [address] [place] Alanine aminotransferase [En zymatic activity/volume] in Serum or PlasmaOrdered By: Sawyer Dozier on 02-20-2024 ALT [Catalytic activity/Vol] 28 U/L 7-52 [facility] Albumin [Mass/volume] in Ser um or Plasma by Bromocresol green (BCG) dye binding methoOrdered By: Sawyer Dozier on 02-20-2024 Albumin BCG dye [Mass/Vol] 2.6 g/dL 3.5-5.7 [facility] Alkaline phosphatase [Enzyma tic activity/volume] in Serum or PlasmaOrdered By: Sawyer Dozier on 02-20-2024 ALP [Catalytic activity/Vol] 108 U/L 34-104 [facility] Aspartate aminotransferase [ Enzymatic activity/volume] in Serum or PlasmaOrdered By: Sawyer Dozier on 02-20-2024 AST [Catalytic activity/Vol] 41 U/L 13-39 [facility] Band form neutrophils/100 WB C Manual cnt (Bld)Ordered By: Vincenzo Ragsdale on 02-20-2024 Band form neutrophils/100 WBC (Bld) 13 % 0-5 [facility] Basic Metabolic Panelon 01-29 Anion gap [Moles/Vol] 12.7 mmol/L Normal 6.0-15.0 [facility] Comment on above: Performed By: #### H JUHI BMP ####[place] [address] [place] [id number] [facility] Calcium [Mass/Vol] 8.7 mg/dL Normal 8.6-10.3 [facility] Comment on above: Performed By: #### H EPAANDREEA, BMP ####[facility] [place] [address] [facility] Chloride [Moles/Vol] 92 mmol/L Low 98-107 [facility] Comment on above: Performed By: #### H JUHI, BMP ####[place] [address] [place] [address] [facility] CO2 [Moles/Vol] 35.0 mmol/L High 21.0-31.0 [facility] Comment on above: Performed By: #### H EPAANDREEA, BMP ####[address] [address] [facility] Creatinine [Mass/Vol] 1.21 mg/dL High 0.60-1.20 [facility] Comment on above: Performed By: #### H JUHI, BMP ####[address] [address] [facility] Creatinine Clr Calc Pharmacy 69.80 Normal [facility] Comment on above: Result Comment: PERF ORMED BY:[address] [place], [place] [phone] MEDICAL LILIYA AGARWAL M.D. Performed By: #### H JUHI BMP ####[place] [address] [facility] GFR/1.73 sq M.predicted MDRD (S/P/Bld) [Vol rate/Area] 48.514 mL/min/{1.73_m2} Normal [facility] Comment on above: Performed By: #### H JUHI, BMP ####[place] [address] [facility] Glucose [Mass/Vol] 140 mg/dL High 70-100 [facility] Comment on above: Result Comment: [facility] Glucose Reference Range is dependent on time and content of last meal. Glucose of more than 200 mg/dL in a nonstressed, ambulatory subject supports the diagnosis of Diabetes Mellitus. ADA recommended reference range Performed By: #### H JUHI BMP ####[place] [address] [facility] Potassium [Moles/Vol] 3.7 mmol/L Normal 3.5-5.1 [facility] Comment on above: Performed By: #### H JUHI, BMP ####[place] [address] [facility] Sodium [Moles/Vol] 136 mmol/L Normal 136-145 [facility] Comment on above: Performed By: #### H JUHI, BMP ####[place] [address] [facility] Urea nitrogen [Mass/Vol] 56 mg/dL High 7-25 [facility] Comment on above: Performed By: #### H EPATIC, BMP ####[place] [address] [facility] Bilirubin.direct [Mass/volum e] in Serum or PlasmaOrdered By: Sawyer Dozier on 02-20-2024 Bilirubin.direct [Mass/Vol] 0.10 mg/dL 0.03-0.18 [facility] Bilirubin.total [Mass/volume ] in Serum or PlasmaOrdered By: Sawyer Dozier on 02-20-2024 Bilirubin [Mass/Vol] 0.5 mg/dL 0.3-1.0 [facility] Diff and CBCon 02-20-2024 Band form neutrophils/100 WBC (Bld) 13 % High 0-5 [facility] Comment on above: Performed By: #### D IFF CBC ####[place] [address] [facility] Eosinophils/100 WBC (Bld) 4 % High 1-3 [facility] Comment on above: Performed By: #### D IFF CBC ####[place] [address] [facility] Erythrocyte distribution width (RBC) [Ratio] 14.5 % Normal 11.9-15.3 [facility] Comment on above: Performed By: #### D IFF CBC ####[place] [address] [facility] Hematocrit (Bld) [Volume fraction] 36.1 % Normal 34.0-46.4 [facility] Comment on above: Performed By: #### D IFF CBC ####[place] [address] [facility] Hemoglobin (Bld) [Mass/Vol] 12.0 g/dL Normal 11.8-15.4 [facility] Comment on above: Performed By: #### D IFF CBC ####[place] [address] [facility] Lymphocytes/100 WBC (Bld) 6 % Low 18-42 [facility] Comment on above: Performed By: #### D IFF CBC ####[address] [address] [facility] MCH (RBC) [Entitic mass] 30.7 pg Normal 24.7-34.3 [facility] Comment on above: Performed By: #### D IFF CBC ####[place] [address] [facility] MCV (RBC) [Entitic vol] 92.3 fL Normal 80-100 [facility] Comment on above: Performed By: #### D IFF CBC ####[place] [address] [facility] Mean Corpuscular HGB Conc 33.3 g/dL Normal 32.0-35.0 [facility] Comment on above: Performed By: #### D IFF CBC ####[place] [address] [facility] Metamyelocytes 7 % High 0-0 [facility] Comment on above: Performed By: #### D IFF CBC ####[place] [address] [facility] Monocytes/100 WBC (Bld) 3 % Normal 2-11 [facility] Comment on above: Performed By: #### D IFF CBC ####[place] [address] [facility] Myelocytes 1 % High 0-0 [facility] Comment on above: Performed By: #### D IFF CBC ####[place] [address] [facility] Platelet Estimate Normal Normal Normal [facility] Comment on above: Performed By: #### D IFF CBC ####[place] [address] [facility] Platelet mean volume (Bld) [Entitic vol] 6.9 fL Normal 6.3-10.7 [facility] Comment on above: Performed By: #### D IFF CBC ####[place] [address] [facility] Platelet Morphology Normal Normal Normal [facility] Comment on above: Result Comment: PERF ORMED BY:[address] [place] [phone] MEDICAL DIRECTORXAVIER AGARWAL M.D. Performed By: #### D IFF CBC ####[place] [address] [place] [address] [facility] Platelets (Bld) [#/Vol] 311 10*3/uL Normal 150-450 [facility] Comment on above: Performed By: #### D IFF CBC ####[place] [address] [facility] Poikilocytosis Slight Normal [facility] Comment on above: Performed By: #### D IFF CBC ####[place] [address] [place] [address] [facility] RBC (Bld) [#/Vol] 3.91 10*6/uL Normal 3.60-5.00 [facility] Comment on above: Performed By: #### D IFF CBC ####[place] [address] [facility] Segmented neutrophils/100 WBC (Bld) 66 % Normal 50-70 [facility] Comment on above: Performed By: #### D IFF CBC ####[place] [address] [facility] WBC (Bld) [#/Vol] 16.5 10*3/uL High 3.8-11.6 [facility] Comment on above: Performed By: #### D IFF CBC ####[place] [address] [facility] Globulin Calc (S) [Mass/Vol] Ordered By: Sawyer Dozier on 02-20-2024 Globulin (S) [Mass/Vol] 2.4 g/dL [facility] Glucose Poct Glucometerson 0 02-20-2024 Glucose [Mass/Vol] 219 mg/dL Normal [facility] Comment on above: Result Comment: [place] Glucose Reference Range is dependent on time and content of last meal. Glucose of more than 200 mg/dL in a nonstressed, ambulatory subject supports the diagnosis of Diabetes Mellitus.PERFORMED BY:[place] [address] [address] [place], [place] [phone] MEDICAL LILIYA AGARWAL M.D. Performed By: #### G LULS ####Point of Care testing, Commemt1 Glu2: Cleaned Meter Normal [facility] Comment on above: Result Comment: PERF ORMED BY:[place] [address] [address] [place]ost[place], [place] [phone] MEDICAL LILIYA AGARWAL M.D. Performed By: #### G LULS ####Point of Care testing, Glucose [Mass/Vol] 143 mg/dL Normal [facility] Comment on above: Result Comment: [place] om Glucose Reference Range is dependent on time and content of last meal. Glucose of more than 200 mg/dL in a nonstressed, ambulatory subject supports the diagnosis of Diabetes Mellitus. Performed By: #### G LULS ####Point of Care testing, Glucose [Mass/Vol] 248 mg/dL Normal [facility] Comment on above: Result Comment: [place] om Glucose Reference Range is dependent on time and content of last meal. Glucose of more than 200 mg/dL in a nonstressed, ambulatory subject supports the diagnosis of Diabetes Mellitus.PERFORMED BY:[place] [address] [address] [place]AUFFMANJostinDANIELLE[place], [place] [phone] MEDICAL LILIYA AGARWAL M.D. Performed By: #### G LULS ####Point of Care testing, Glucose [Mass/Vol] 160 mg/dL Normal [facility] Comment on above: Result Comment: [place] om Glucose Reference Range is dependent on time and content of last meal. Glucose of more than 200 mg/dL in a nonstressed, ambulatory subject supports the diagnosis of Diabetes Mellitus.PERFORMED BY:[place] [address] [address] [place], [place] [phone] MEDICAL LILIYA AGARWAL M.D. Performed By: #### G LULS ####Point of Care testing, Hepatic Panelon 02-20-2024 Albumin [Mass/Vol] 2.6 g/dL Low 3.5-5.7 [facility] Comment on above: Performed By: #### H EPATIC, BMP ####[address] Albumin/Globulin [Mass ratio] 1.1 {ratio} Normal [facility] Comment on above: Performed By: #### H EPATIC, BMP ####[address] ALP [Catalytic activity/Vol] 108 U/L High 34-104 [facility] Comment on above: Performed By: #### H EPATIC, BMP ####[address] ALT [Catalytic activity/Vol] 28 U/L Normal 7-52 [facility] Comment on above: Performed By: #### H EPATIC, BMP ####[address] AST [Catalytic activity/Vol] 41 U/L High 13-39 [facility] Comment on above: Performed By: #### H EPATIC, BMP ####[place] [address] [facility] Bilirubin [Mass/Vol] 0.5 mg/dL Normal 0.3-1.0 [facility] Comment on above: Performed By: #### H EPATIC, BMP ####[address] Bilirubin,Indirect 0.4 mg/dL Normal [facility] Comment on above: Performed By: #### H EPATIC, BMP ####[place] [address] [facility] Bilirubin.indirect [Mass/Vol] 0.10 mg/dL Normal 0.03-0.18 [facility] Comment on above: Performed By: #### H EPATIC, BMP ####[address] Globulin (S) [Mass/Vol] 2.4 g/dL Normal [facility] Comment on above: Performed By: #### H EPATIC, BMP ####[facility] [id number] Protein [Mass/Vol] 5.0 g/dL Low 6.4-8.9 [facility] Comment on above: Performed By: #### H JUHI, BMP ####[facility] [id number] [place] [address] [facility] Metamyelocytes/100 WBC Manua l cnt (Bld)Ordered By: Vincenzo Ragsdale on 02-20-2024 Metamyelocytes/100 WBC (Bld) 7 % 0-0 [facility] No Panel InformationOrdered By: Sawyer Dozier on 02-20-2024 Bedside Glucose Comment Glu2: cleaned meter [facility] Poikilocytosis [Presence] in Blood by Light microscopyOrdered By: Vincenzo Ragsdale on 02-20-2024 Poikilocytosis LM Ql (Bld) Slight [facility] Protein [Mass/volume] in Ser um or PlasmaOrdered By: Sawyer Dozier on 02-20-2024 Protein [Mass/Vol] 5.0 g/dL 6.4-8.[address] [facility] Serum or plasma albumin/glob ulin mass ratioOrdered By: Sawyer Dozier on 02-20-2024 Albumin/Globulin [Mass ratio] 1.1 {ratio} [facility] Serum or plasma non-glucuron idated bilirubin measurement (mass/volume)Ordered By: Sawyer Dozier on 02-20-2024 Bilirubin.indirect [Mass/Vol] 0.4 mg/dL [facility] US venous duplex LE BIon US venous duplex LE BI Normal [facility] Anisocytosis LM Ql (Bld)Orde red By: Vincenzo Ragsdale on 02-19-2024 Anisocytosis Ql (Bld) Slight [facility] Basic Metabolic Panelon 01-29 Anion gap [Moles/Vol] 11.7 mmol/L Normal 6.0-15.0 [facility] Comment on above: Performed By: #### B MP ####[facility] [place] [address] [facility] Calcium [Mass/Vol] 9.2 mg/dL Normal 8.6-10.3 [facility] Comment on above: Performed By: #### B MP ####[address] [address] [facility] Chloride [Moles/Vol] 92 mmol/L Low 98-107 [facility] Comment on above: Performed By: #### B MP ####[place] [address] [facility] CO2 [Moles/Vol] 32.0 mmol/L High 21.0-31.0 [facility] Comment on above: Performed By: #### B MP ####[place] [address] [facility] Creatinine [Mass/Vol] 1.43 mg/dL Significan t change up 0.60-1.20 [facility] Comment on above: Performed By: #### B MP ####[place] [address] [facility] Creatinine Clr Calc Pharmacy 53.79 Normal [facility] Comment on above: Result Comment: PERF ORMED BY:[address] [place], [place] [phone] MEDICAL DIRECTORXAVIER AGARWAL M.D. Performed By: #### B MP ####[address] [address] [facility] GFR/1.73 sq M.predicted MDRD (S/P/Bld) [Vol rate/Area] 39.702 mL/min/{1.73_m2} Normal [facility] Comment on above: Performed By: #### B MP ####[place] [address] [facility] Glucose [Mass/Vol] 190 mg/dL High 70-100 [facility] Comment on above: Result Comment: [place] om Glucose Reference Range is dependent on time and content of last meal. Glucose of more than 200 mg/dL in a nonstressed, ambulatory subject supports the diagnosis of Diabetes Mellitus. ADA recommended reference range Performed By: #### B MP ####[place] [address] [facility] Potassium [Moles/Vol] 3.7 mmol/L Normal 3.5-5.1 [facility] Comment on above: Performed By: #### B MP ####[place] [address] [facility] Sodium [Moles/Vol] 132 mmol/L Low 136-145 [facility] Comment on above: Performed By: #### B MP ####[place] [address] [facility] Urea nitrogen [Mass/Vol] 66 mg/dL High 7-25 [facility] Comment on above: Performed By: #### B MP ####[place] [address] [facility] Basophils/100 WBC Manual cnt (Bld)Ordered By: Vincenzo Ragsdale on 02-19-2024 Basophils/100 WBC (Bld) 1 % 0-2 [facility] Diff and CBCon 02-19-2024 Anisocytosis Ql (Bld) Slight Normal [facility] Comment on above: Performed By: #### D IFF CBC ####[address] Band form neutrophils/100 WBC (Bld) 6 % High 0-5 [facility] Comment on above: Performed By: #### D IFF CBC ####[place] [id number] [facility] Basophils/100 WBC (Bld) 1 % Normal 0-2 [facility] Comment on above: Performed By: #### D IFF CBC ####[place] [address] [facility] Eosinophils/100 WBC (Bld) 4 % High 1-3 [facility] Comment on above: Performed By: #### D IFF CBC ####[place] [address] [facility] Erythrocyte distribution width (RBC) [Ratio] 14.4 % Normal 11.9-15.3 [facility] Comment on above: Performed By: #### D IFF CBC ####[address] Hematocrit (Bld) [Volume fraction] 35.2 % Normal 34.0-46.4 [facility] Comment on above: Performed By: #### D IFF CBC ####[address] Hemoglobin (Bld) [Mass/Vol] 11.8 g/dL Normal 11.8-15.4 [facility] Comment on above: Performed By: #### D IFF CBC ####[address] Lymphocytes/100 WBC (Bld) 3 % Low 18-42 [facility] Comment on above: Performed By: #### D IFF CBC ####[address] MCH (RBC) [Entitic mass] 31.0 pg Normal 24.7-34.3 [facility] Comment on above: Performed By: #### D IFF CBC ####[address] MCV (RBC) [Entitic vol] 92.5 fL Normal 80-100 [facility] Comment on above: Performed By: #### D IFF CBC ####[address] Mean Corpuscular HGB Conc 33.5 g/dL Normal 32.0-35.0 [facility] Comment on above: Performed By: #### D IFF CBC ####[address] Metamyelocytes 3 % High 0-0 [facility] Comment on above: Performed By: #### D IFF CBC ####[address] Monocytes/100 WBC (Bld) 3 % Normal 2-11 [facility] Comment on above: Performed By: #### D IFF CBC ####[place] [address] [place] Myelocytes 4 % High 0-0 [facility] Comment on above: Performed By: #### D IFF CBC ####[place] [id number] [facility] Platelet Estimate Normal Normal Normal [facility] Comment on above: Performed By: #### D IFF CBC ####[place] [address] [facility] Platelet mean volume (Bld) [Entitic vol] 7.4 fL Normal 6.3-10.7 [facility] Comment on above: Result Comment: PERF ORMED BY:[address] [place] [phone] MEDICAL DIRECTORXAVIER AGARWAL M.D. Performed By: #### D IFF CBC ####[address] Platelet Morphology Normal Normal Normal [facility] Comment on above: Result Comment: PERF ORMED BY:[address] [place], [place] [phone] MEDICAL DIRECTORXAVIER AGARWAL M.D. Performed By: #### D IFF CBC ####[address] Platelets (Bld) [#/Vol] 288 10*3/uL Normal 150-450 [facility] Comment on above: Performed By: #### D IFF CBC ####[place] [address] [facility] Poikilocytosis Slight Normal [facility] Comment on above: Performed By: #### D IFF CBC ####[place] [address] [facility] RBC (Bld) [#/Vol] 3.81 10*6/uL Normal 3.60-5.00 [facility] Comment on above: Performed By: #### D IFF CBC ####[place] [id number] [facility] Segmented neutrophils/100 WBC (Bld) 76 % High 50-70 [facility] Comment on above: Performed By: #### D IFF CBC ####[facility] [id number] [place] [address] [facility] WBC (Bld) [#/Vol] 19.6 10*3/uL High 3.8-11.6 [facility] Comment on above: Performed By: #### D IFF CBC ####[facility] [place], [place] [address] [facility] Glucose Poct Glucometerson 0 02-19-2024 Glucose [Mass/Vol] 174 mg/dL Normal [facility] Comment on above: Result Comment: [place] om Glucose Reference Range is dependent on time and content of last meal. Glucose of more than 200 mg/dL in a nonstressed, ambulatory subject supports the diagnosis of Diabetes Mellitus.PERFORMED BY:[address] [place]ost[place], [place] [phone] MEDICAL DIRECTORXAVIER AGARWAL M.D. Performed By: #### G LULS ####Point of Care testing, Glucose [Mass/Vol] 83 mg/dL Normal [facility] Comment on above: Result Comment: [place] Glucose Reference Range is dependent on time and content of last meal. Glucose of more than 200 mg/dL in a nonstressed, ambulatory subject supports the diagnosis of Diabetes Mellitus.PERFORMED BY:[place] [address] [place], [place] [phone] MEDICAL LILIYA AGARWAL M.D. Performed By: #### G LULS ####Point of Care testing, Commemt1 Glu2: Cleaned Meter Normal [facility] Comment on above: Result Comment: PERF ORMED BY:[address] [place], [place] [phone] MEDICAL LILIYA AGARWAL M.D. Performed By: #### G LULS ####Point of Care testing, Glucose [Mass/Vol] 259 mg/dL Normal [facility] Comment on above: Result Comment: [place] om Glucose Reference Range is dependent on time and content of last meal. Glucose of more than 200 mg/dL in a nonstressed, ambulatory subject supports the diagnosis of Diabetes Mellitus. Performed By: #### G LULS ####Point of Care testing, Glucose [Mass/Vol] 205 mg/dL Normal [facility] Comment on above: Result Comment: [facility] Glucose Reference Range is dependent on time and content of last meal. Glucose of more than 200 mg/dL in a nonstressed, ambulatory subject supports the diagnosis of Diabetes Mellitus.PERFORMED BY:[address] [place], [place] [phone] MEDICAL DIRECTORXAVIER AGARWAL M.D. Performed By: #### G LULS ####Point of Care testing, Basic Metabolic Panelon 01-29 Anion gap [Moles/Vol] 11.4 mmol/L Normal 6.0-15.0 [facility] Comment on above: Performed By: #### B MP ####[address] [address] [facility] Calcium [Mass/Vol] 9.3 mg/dL Normal 8.6-10.3 [facility] Comment on above: Performed By: #### B MP ####[address] [address] [facility] Chloride [Moles/Vol] 91 mmol/L Low 98-107 [facility] Comment on above: Performed By: #### B MP ####[address] [address] [facility] CO2 [Moles/Vol] 32.1 mmol/L High 21.0-31.0 [facility] Comment on above: Performed By: #### B MP ####[address] [address] [facility] Creatinine [Mass/Vol] 2.00 mg/dL Significan t change up 0.60-1.20 [facility] Comment on above: Performed By: #### B MP ####[address] [address] [facility] Creatinine Clr Calc Pharmacy 38.47 Normal [facility] Comment on above: Result Comment: PERF ORMED BY:[address] [address] [place], [place] [phone] MEDICAL DIRECTORXAVIER AGARWAL M.D. Performed By: #### B MP ####[place] [id number] [facility] GFR/1.73 sq M.predicted MDRD (S/P/Bld) [Vol rate/Area] 26.544 mL/min/{1.73_m2} Normal [facility] Comment on above: Performed By: #### B MP ####[place] [address] [facility] Glucose [Mass/Vol] 133 mg/dL High 70-100 [facility] Comment on above: Result Comment: [facility] Glucose Reference Range is dependent on time and content of last meal. Glucose of more than 200 mg/dL in a nonstressed, ambulatory subject supports the diagnosis of Diabetes Mellitus. ADA recommended reference range Performed By: #### B MP ####[address] Potassium [Moles/Vol] 3.5 mmol/L Normal 3.5-5.1 [facility] Comment on above: Performed By: #### B MP ####[address] Sodium [Moles/Vol] 131 mmol/L Low 136-145 [facility] Comment on above: Performed By: #### B MP ####[place] [address] [facility] Urea nitrogen [Mass/Vol] 74 mg/dL High 7-25 [facility] Comment on above: Performed By: #### B MP ####[place] [address] [facility] Diff and CBCon 02-18-2024 Anisocytosis Ql (Bld) Slight Normal [facility] Comment on above: Performed By: #### D IFF CBC ####[place] [address] [facility] Band form neutrophils/100 WBC (Bld) 4 % Normal 0-5 [facility] Comment on above: Performed By: #### D IFF CBC ####[place] [address] [facility] Eosinophils/100 WBC (Bld) 3 % Normal 1-3 [facility] Comment on above: Performed By: #### D IFF CBC ####[address] [address] [facility] Erythrocyte distribution width (RBC) [Ratio] 14.4 % Normal 11.9-15.3 [facility] Comment on above: Performed By: #### D IFF CBC ####[place] [address] [facility] Hematocrit (Bld) [Volume fraction] 36.8 % Normal 34.0-46.4 [facility] Comment on above: Performed By: #### D IFF CBC ####[place] [address] [facility] Hemoglobin (Bld) [Mass/Vol] 12.3 g/dL Normal 11.8-15.4 [facility] Comment on above: Performed By: #### D IFF CBC ####[place] [address] [facility] Lymphocytes/100 WBC (Bld) 5 % Low 18-42 [facility] Comment on above: Performed By: #### D IFF CBC ####[address] [address] [facility] MCH (RBC) [Entitic mass] 30.8 pg Normal 24.7-34.3 [facility] Comment on above: Performed By: #### D IFF CBC ####[address] [address] [facility] MCV (RBC) [Entitic vol] 92.3 fL Normal 80-100 [facility] Comment on above: Performed By: #### D IFF CBC ####[place] [address] [facility] Mean Corpuscular HGB Conc 33.4 g/dL Normal 32.0-35.0 [facility] Comment on above: Performed By: #### D IFF CBC ####[address] [address] [facility] Metamyelocytes 5 % High 0-0 [facility] Comment on above: Performed By: #### D IFF CBC ####[address] [address] [facility] Monocytes/100 WBC (Bld) 4 % Normal 2-11 [facility] Comment on above: Performed By: #### D IFF CBC ####[address] [address] [facility] Myelocytes 5 % High 0-0 [facility] Comment on above: Performed By: #### D IFF CBC ####[address] [address] [facility] Nucleated Red Blood Cell 1 /100{WBC} High 0-0 [facility] Comment on above: Performed By: #### D IFF CBC ####[address] [address] [facility] Platelet Estimate Normal Normal Normal [facility] Comment on above: Performed By: #### D IFF CBC ####[address] [address] [facility] Platelet mean volume (Bld) [Entitic vol] 7.9 fL Normal 6.3-10.7 [facility] Comment on above: Result Comment: PERF ORMED BY:[place] [address] [place]NAFer[place]ostinD[place], [place] [phone] MEDICAL DIRECTORXAVIER AGARWAL M.D. Performed By: #### D IFF CBC ####[address] [address] [facility] Platelet Morphology Normal Normal Normal [facility] Comment on above: Result Comment: PERF ORMED BY:[place] [address] [place]AUFFMANJostinDANIELLE, [place] [phone] MEDICAL DIRECTORXAVIER AGARWAL M.D. Performed By: #### D IFF CBC ####[address] [address] [place] Platelets (Bld) [#/Vol] 261 10*3/uL Normal 150-450 [facility] Comment on above: Performed By: #### D IFF CBC ####[place] [address] [facility] Poikilocytosis Slight Normal [facility] Comment on above: Performed By: #### D IFF CBC ####[place] [address] [facility] Promyelocytes 1 % High 0-0 [facility] Comment on above: Performed By: #### D IFF CBC ####[place] [address] [facility] RBC (Bld) [#/Vol] 3.99 10*6/uL Normal 3.60-5.00 [facility] Comment on above: Performed By: #### D IFF CBC ####[place] [address] [facility] Segmented neutrophils/100 WBC (Bld) 73 % High 50-70 [facility] Comment on above: Performed By: #### D IFF CBC ####[place] [address] [facility] WBC (Bld) [#/Vol] 18.1 10*3/uL High 3.8-11.6 [facility] Comment on above: Performed By: #### D IFF CBC ####[place] [address] [facility] Glucose Poct Glucometerson 0 02-18-2024 Glucose [Mass/Vol] 218 mg/dL Normal [facility] Comment on above: Result Comment: [place] Glucose Reference Range is dependent on time and content of last meal. Glucose of more than 200 mg/dL in a nonstressed, ambulatory subject supports the diagnosis of Diabetes Mellitus.PERFORMED BY:[address] [place]ONELL[place], [place] [phone] MEDICAL DIRECTORXAVIER AGARWAL M.D. Performed By: #### G LULS ####Point of Care testing, Glucose [Mass/Vol] 231 mg/dL Normal [facility] Comment on above: Result Comment: [place] Glucose Reference Range is dependent on time and content of last meal. Glucose of more than 200 mg/dL in a nonstressed, ambulatory subject supports the diagnosis of Diabetes Mellitus.PERFORMED BY:[place] [address] [place], [place] [phone] MEDICAL DIRECTORXAVIER AGARWAL M.D. Performed By: #### G LULS ####Point of Care testing, Glucose [Mass/Vol] 212 mg/dL Normal [facility] Comment on above: Result Comment: [facility] Glucose Reference Range is dependent on time and content of last meal. Glucose of more than 200 mg/dL in a nonstressed, ambulatory subject supports the diagnosis of Diabetes Mellitus.PERFORMED BY:[address] [place], [place] [phone] MEDICAL DIRECTORXAVIER AGARWAL M.D. Performed By: #### G LULS ####Point of Care testing, Glucose [Mass/Vol] 137 mg/dL Normal [facility] Comment on above: Result Comment: [facility] Glucose Reference Range is dependent on time and content of last meal. Glucose of more than 200 mg/dL in a nonstressed, ambulatory subject supports the diagnosis of Diabetes Mellitus.PERFORMED BY:[place] [address] [place], [place] [phone] MEDICAL DIRECTORXAVIER AGARWAL M.D. Performed By: #### G LUROSARIO ####Point of Care testing, Nucleated RBC/100 WBC Manual cnt (Bld) [Ratio]Ordered By: Vincenzo Ragsdale on 02-18-2024 Nucleated RBC/100 WBC (Bld) [Ratio] 1 /100{WBC} 0-0 [facility] Promyelocytes/100 WBC Manual cnt (Bld)Ordered By: Vicnenzo Ragsdale on 02-18-2024 Promyelocytes/100 WBC (Bld) 1 % 0-0 [facility] Basic Metabolic Panelon 01-29 Anion gap [Moles/Vol] 12.4 mmol/L Normal 6.0-15.0 [facility] Comment on above: Performed By: #### B MP, DIFF CBC ####[address] [address] [facility] Calcium [Mass/Vol] 8.8 mg/dL Normal 8.6-10.3 [facility] Comment on above: Performed By: #### B MP, DIFF CBC ####[address] [address] [place] Chloride [Moles/Vol] 90 mmol/L Low 98-107 [facility] Comment on above: Performed By: #### B MP, DIFF CBC ####[address] [address] [place] CO2 [Moles/Vol] 28.2 mmol/L Normal 21.0-31.0 [facility] Comment on above: Performed By: #### B MP, DIFF CBC ####[address] [address] [place] Creatinine [Mass/Vol] 2.68 mg/dL High 0.60-1.20 [facility] Comment on above: Performed By: #### B MP, DIFF CBC ####[address] [address] [place] Creatinine Clr Calc Pharmacy 28.70 Normal [facility] Comment on above: Result Comment: PERF ORMED BY:[address] [place]ostin[place], [place] [phone] MEDICAL LILIYA AGARWAL M.D. Performed By: #### B MP, DIFF CBC ####[address] [address] [place] GFR/1.73 sq M.predicted MDRD (S/P/Bld) [Vol rate/Area] 18.683 mL/min/{1.73_m2} Normal [facility] Comment on above: Performed By: #### B MP, DIFF CBC ####[address] [address] [facility] Glucose [Mass/Vol] 142 mg/dL High 70-100 [facility] Comment on above: Result Comment: [place] Glucose Reference Range is dependent on time and content of last meal. Glucose of more than 200 mg/dL in a nonstressed, ambulatory subject supports the diagnosis of Diabetes Mellitus. ADA recommended reference range Performed By: #### B MP, DIFF CBC ####[facility] [place] [address] [facility] Potassium [Moles/Vol] 3.6 mmol/L Normal 3.5-5.1 [facility] Comment on above: Performed By: #### B MP, DIFF CBC ####[place] [address] [facility] Sodium [Moles/Vol] 127 mmol/L Low 136-145 [facility] Comment on above: Performed By: #### B MP, DIFF CBC ####[place] [address] Urea nitrogen [Mass/Vol] 84 mg/dL High 7-25 [facility] Comment on above: Performed By: #### B MP, DIFF CBC ####[place] [address] [facility] Blood toxic granulation dete ction by light microscopyOrdered By: Vincenzo Ragsdale on 02-17-2024 Toxic granules LM Ql (Bld) Slight [facility] CT abdomen pelvis wo conon 0 02-17-2024 CT abdomen pelvis wo con Normal [facility] Diff and CBCon 02-17-2024 Anisocytosis Ql (Bld) Slight Normal [facility] Comment on above: Performed By: #### B MP, DIFF CBC ####[place] [address] [facility] Band form neutrophils/100 WBC (Bld) 5 % Normal 0-5 [facility] Comment on above: Performed By: #### B MP, DIFF CBC ####[place] [address] [facility] Eosinophils/100 WBC (Bld) 1 % Normal 1-3 [facility] Comment on above: Performed By: #### B MP, DIFF CBC ####[place] [address] [facility] Erythrocyte distribution width (RBC) [Ratio] 14.2 % Normal 11.9-15.3 [facility] Comment on above: Performed By: #### B MP, DIFF CBC ####[address] Hematocrit (Bld) [Volume fraction] 34.7 % Normal 34.0-46.4 [facility] Comment on above: Performed By: #### B MP, DIFF CBC ####[address] Hemoglobin (Bld) [Mass/Vol] 11.5 g/dL Low 11.8-15.4 [facility] Comment on above: Performed By: #### B MP, DIFF CBC ####[address] Lymphocytes/100 WBC (Bld) 3 % Low 18-42 [facility] Comment on above: Performed By: #### B MP, DIFF CBC ####[address] MCH (RBC) [Entitic mass] 30.9 pg Normal 24.7-34.3 [facility] Comment on above: Performed By: #### B MP, DIFF CBC ####[address] MCV (RBC) [Entitic vol] 92.8 fL Normal 80-100 [facility] Comment on above: Performed By: #### B MP, DIFF CBC ####[address] Mean Corpuscular HGB Conc 33.2 g/dL Normal 32.0-35.0 [facility] Comment on above: Performed By: #### B MP, DIFF CBC ####[address] Metamyelocytes 3 % High 0-0 [facility] Comment on above: Performed By: #### B MP, DIFF CBC ####[address] Monocytes/100 WBC (Bld) 5 % Normal 2-11 [facility] Comment on above: Performed By: #### B MP, DIFF CBC ####[address] Myelocytes 3 % High 0-0 [facility] Comment on above: Performed By: #### B MP, DIFF CBC ####[address] Platelet Estimate Normal Normal Normal [facility] Comment on above: Performed By: #### B MP, DIFF CBC ####[address] Platelet mean volume (Bld) [Entitic vol] 8.2 fL Normal 6.3-10.7 [facility] Comment on above: Performed By: #### B MP, DIFF CBC ####[address] Platelet Morphology Normal Normal Normal [facility] Comment on above: Result Comment: PERF ORMED BY:[address] [place]ost[place], [place] [phone] MEDICAL DIRECTORXAVIER AGARWAL M.D. Performed By: #### B MP, DIFF CBC ####[address] Platelets (Bld) [#/Vol] 216 10*3/uL Normal 150-450 [facility] Comment on above: Performed By: #### B MP, DIFF CBC ####[address] RBC (Bld) [#/Vol] 3.74 10*6/uL Normal 3.60-5.00 [facility] Comment on above: Performed By: #### B MP, DIFF CBC ####[address] Segmented neutrophils/100 WBC (Bld) 81 % High 50-70 [facility] Comment on above: Performed By: #### B MP, DIFF CBC ####[address] Toxic Granulation Slight Normal [facility] Comment on above: Performed By: #### B MP, DIFF CBC ####[facility] [place], [place] [address] [facility] WBC (Bld) [#/Vol] 16.4 10*3/uL High 3.8-11.6 [facility] Comment on above: Performed By: #### B MP, DIFF CBC ####[facility] [place], [place] [address] [facility] Glucose Poct Glucometerson 0 02-17-2024 Glucose [Mass/Vol] 206 mg/dL Normal [facility] Comment on above: Result Comment: [place] Glucose Reference Range is dependent on time and content of last meal. Glucose of more than 200 mg/dL in a nonstressed, ambulatory subject supports the diagnosis of Diabetes Mellitus.PERFORMED BY:[address] [place], [place] [phone] MEDICAL DIRECTORXAVIER AGARWAL M.D. Performed By: #### G LULS ####Point of Care testing, Glucose [Mass/Vol] 290 mg/dL Normal [facility] Comment on above: Result Comment: [place] Glucose Reference Range is dependent on time and content of last meal. Glucose of more than 200 mg/dL in a nonstressed, ambulatory subject supports the diagnosis of Diabetes Mellitus.PERFORMED BY:[address] [place], [place] [phone] MEDICAL LILIYA AGARWAL M.D. Performed By: #### G LULS ####Point of Care testing, Glucose [Mass/Vol] 196 mg/dL Normal [facility] Comment on above: Result Comment: [facility] Glucose Reference Range is dependent on time and content of last meal. Glucose of more than 200 mg/dL in a nonstressed, ambulatory subject supports the diagnosis of Diabetes Mellitus.PERFORMED BY:[address] [place], [place] [phone] MEDICAL LILIYA AGARWAL M.D. Performed By: #### G LULS ####Point of Care testing, Glucose [Mass/Vol] 155 mg/dL Normal [facility] Comment on above: Result Comment: [facility] Glucose Reference Range is dependent on time and content of last meal. Glucose of more than 200 mg/dL in a nonstressed, ambulatory subject supports the diagnosis of Diabetes Mellitus.PERFORMED BY:[place] [address] [address] [place], [place] [phone] MEDICAL DIRECTORXAVIER AGARWAL M.D. Performed By: #### G BENSON ####Point of Care testing, Basic Metabolic Panelon 01-28 Anion gap [Moles/Vol] 15.9 mmol/L High 6.0-15.0 e [facility] Comment on above: Performed By: #### S CAN CBC, BMP ####[place] [address] [place] [address] [facility] Calcium [Mass/Vol] 8.2 mg/dL Low 8.6-10.3 [facility] Comment on above: Performed By: #### S CAN CBC, BMP ####[place] [address] [facility] Chloride [Moles/Vol] 90 mmol/L Low 98-107 [facility] Comment on above: Performed By: #### S CAN CBC, BMP ####[place] [address] [place] [address] [facility] CO2 [Moles/Vol] 23.2 mmol/L Normal 21.0-31.0 [facility] Comment on above: Performed By: #### S CAN CBC, BMP ####[place] [address] [facility] Creatinine [Mass/Vol] 3.14 mg/dL High 0.60-1.20 [facility] Comment on above: Performed By: #### S CAN CBC, BMP ####[place] [address] [facility] Creatinine Clr Calc Pharmacy 24.49 Normal [facility] Comment on above: Result Comment: PERF ORMED BY:[address] [place], [place] [phone] MEDICAL DIRECTORXAVIER AGARWAL M.D. Performed By: #### S CAN CBC, BMP ####[place] [id number] [place] GFR/1.73 sq M.predicted MDRD (S/P/Bld) [Vol rate/Area] 15.449 mL/min/{1.73_m2} Normal [facility] Comment on above: Performed By: #### S CAN CBC, BMP ####[place] [address] [facility] Glucose [Mass/Vol] 198 mg/dL High 70-100 [facility] Comment on above: Result Comment: [facility] Glucose Reference Range is dependent on time and content of last meal. Glucose of more than 200 mg/dL in a nonstressed, ambulatory subject supports the diagnosis of Diabetes Mellitus. ADA recommended reference range Performed By: #### S CAN CBC, BMP ####[place] [address] [facility] Potassium [Moles/Vol] 4.1 mmol/L Normal 3.5-5.1 [facility] Comment on above: Performed By: #### S CAN CBC, BMP ####[place] [address] [facility] Sodium [Moles/Vol] 125 mmol/L Low 136-145 [facility] Comment on above: Performed By: #### S CAN CBC, BMP ####[place] [address] [facility] Urea nitrogen [Mass/Vol] 85 mg/dL High 7-25 [facility] Comment on above: Performed By: #### S CAN CBC, BMP ####[address] [address] [facility] Glucose Poct Glucometerson 0 02-16-2024 Glucose [Mass/Vol] 212 mg/dL Normal [facility] Comment on above: Result Comment: [place] om Glucose Reference Range is dependent on time and content of last meal. Glucose of more than 200 mg/dL in a nonstressed, ambulatory subject supports the diagnosis of Diabetes Mellitus.PERFORMED BY:[place] [address] [address] [place], [place] [phone] MEDICAL LILIYA AGARWAL M.D. Performed By: #### G LULS ####Point of Care testing, Glucose [Mass/Vol] 210 mg/dL Normal [facility] Comment on above: Result Comment: [facility] Glucose Reference Range is dependent on time and content of last meal. Glucose of more than 200 mg/dL in a nonstressed, ambulatory subject supports the diagnosis of Diabetes Mellitus.PERFORMED BY:[place] [address] [address] [place]ost[place] [phone] MEDICAL LILIYA AGARWAL M.D. Performed By: #### G LULS ####Point of Care testing, Glucose [Mass/Vol] 225 mg/dL Normal [facility] Comment on above: Result Comment: [facility] Glucose Reference Range is dependent on time and content of last meal. Glucose of more than 200 mg/dL in a nonstressed, ambulatory subject supports the diagnosis of Diabetes Mellitus.PERFORMED BY:[address] [place], [place] [phone] MEDICAL LILIYA AGARWAL M.D. Performed By: #### G LULS ####Point of Care testing, Glucose [Mass/Vol] 218 mg/dL Normal [facility] Comment on above: Result Comment: [facility] Glucose Reference Range is dependent on time and content of last meal. Glucose of more than 200 mg/dL in a nonstressed, ambulatory subject supports the diagnosis of Diabetes Mellitus.PERFORMED BY:[place] [address] [place], [place] [phone] MEDICAL LILIYA AGARWAL M.D. Performed By: #### G LULS ####Point of Care testing, Scan and CBCon 02-16-2024 Basophils (Bld) [#/Vol] 0.1 10*3/uL Normal 0.0-0.2 [facility] Comment on above: Result Comment: PERF ORMED BY:[address] [place], [place] [phone] MEDICAL DIRECTORXAVIER AGARWAL M.D. Performed By: #### S CAN CBC, BMP ####[place] [id number] Basophils/100 WBC (Bld) 0.3 % Normal . [facility] Comment on above: Performed By: #### S CAN CBC, BMP ####[address] Eosinophils (Bld) [#/Vol] 0.2 10*3/uL Normal 0.0-0.45 [facility] Comment on above: Performed By: #### S CAN CBC, BMP ####[address] Eosinophils/100 WBC (Bld) 1.0 % Normal . [facility] Comment on above: Performed By: #### S CAN CBC, BMP ####[address] Erythrocyte distribution width (RBC) [Ratio] 14.1 % Normal 11.9-15.3 [facility] Comment on above: Performed By: #### S CAN CBC, BMP ####[address] Hematocrit (Bld) [Volume fraction] 33.0 % Low 34.0-46.4 [facility] Comment on above: Performed By: #### S CAN CBC, BMP ####[address] Hemoglobin (Bld) [Mass/Vol] 11.0 g/dL Low 11.8-15.4 [facility] Comment on above: Performed By: #### S CAN CBC, BMP ####[address] Lymphocytes (Bld) [#/Vol] 0.7 10*3/uL Low 1.00-4.8 [facility] Comment on above: Performed By: #### S CAN CBC, BMP ####[address] Lymphocytes/100 WBC (Bld) 3.4 % Normal . [facility] Comment on above: Performed By: #### S CAN CBC, BMP ####[address] MCH (RBC) [Entitic mass] 31.1 pg Normal 24.7-34.3 [facility] Comment on above: Performed By: #### S CAN CBC, BMP ####[address] MCV (RBC) [Entitic vol] 93.0 fL Normal 80-100 [facility] Comment on above: Performed By: #### S CAN CBC, BMP ####[address] Mean Corpuscular HGB Conc 33.4 g/dL Normal 32.0-35.0 [facility] Comment on above: Performed By: #### S CAN CBC, BMP ####[address] Monocytes (Bld) [#/Vol] 0.3 10*3/uL Normal 0.0-0.8 [facility] Comment on above: Performed By: #### S CAN CBC, BMP ####[address] Monocytes/100 WBC (Bld) 1.6 % Normal . [facility] Comment on above: Performed By: #### S CAN CBC, BMP ####[address] Neutrophils (Bld) [#/Vol] 18.5 10*3/uL High 1.8-7.7 [facility] Comment on above: Performed By: #### S CAN CBC, BMP ####[address] Neutrophils/100 WBC (Bld) 93.7 % Normal . [facility] Comment on above: Performed By: #### S CAN CBC, BMP ####[address] NRBC% 0.1 /100{WBC} Normal 0-0.5 [facility] Comment on above: Performed By: #### S CAN CBC, BMP ####[address] [address] [facility] Platelet Estimate Normal Normal Normal [facility] Comment on above: Performed By: #### S CAN CBC, BMP ####[address] [address] [facility] Platelet mean volume (Bld) [Entitic vol] 8.4 fL Normal 6.3-10.7 [facility] Comment on above: Performed By: #### S CAN CBC, BMP ####[address] [address] [facility] Platelet Morphology Normal Normal Normal [facility] Comment on above: Result Comment: NO C LOTS OR CLUMPSPERFORMED BY:[address] [place], [place] [phone] MEDICAL DIRECTORXAVIER AGARWAL M.D. Performed By: #### S CAN CBC, BMP ####[place] [id number] [facility] Platelets (Bld) [#/Vol] 202 10*3/uL Normal 150-450 [facility] Comment on above: Performed By: #### S CAN CBC, BMP ####[place] [id number] [facility] RBC (Bld) [#/Vol] 3.55 10*6/uL Low 3.60-5.00 [facility] Comment on above: Performed By: #### S CAN CBC, BMP ####[place] [id number] [facility] RBC morphology finding Nom (Bld) Normal Normal Normal [facility] Comment on above: Performed By: #### S CAN CBC, BMP ####[place] [id number] [facility] WBC (Bld) [#/Vol] 19.7 10*3/uL High 3.8-11.6 [facility] Comment on above: Performed By: #### S CAN CBC, BMP ####[place] [address] [place] [id number] [facility] WBC (Bld) [#/Vol] 20.9 10*3/uL High 3.8-11.6 [facility] Comment on above: Performed By: #### S CAN CBC, BMP ####[place] [id number] Automated erythrocytes count in urine sediment (number/area)Ordered By: Ari Fernández on 02-15-2024 RBC Auto (Urine sed) [#/Area] 3-4 [HPF] 0-4 [facility] Automated leukocytes count i n urine sediment (number/area)Ordered By: Ari Fernández on 02-15-2024 WBC Auto (Urine sed) [#/Area] 1-2 [HPF] 0-4 [facility] Basic Metabolic Panelon 01-28 Anion gap [Moles/Vol] 14.5 mmol/L Normal 6.0-15.0 [facility] Comment on above: Performed By: #### B MP, DIFF CBC, LIPASE ####[place] [id number] Calcium [Mass/Vol] 8.4 mg/dL Low 8.6-10.3 [facility] Comment on above: Performed By: #### B MP, DIFF CBC, LIPASE ####[address] Chloride [Moles/Vol] 89 mmol/L Low 98-107 [facility] Comment on above: Performed By: #### B MP, DIFF CBC, LIPASE ####[place] [id number] [facility] CO2 [Moles/Vol] 26.4 mmol/L Normal 21.0-31.0 [facility] Comment on above: Performed By: #### B MP, DIFF CBC, LIPASE ####[place] [id number] [facility] Creatinine [Mass/Vol] 3.37 mg/dL High 0.60-1.20 [facility] Comment on above: Performed By: #### B MP, DIFF CBC, LIPASE ####[place] [address] [place] [id number] [facility] Creatinine Clr Calc Pharmacy 22.82 Normal [facility] Comment on above: Result Comment: PERF ORMED BY:[address] [place], [place] [phone] MEDICAL LILIYA AGARWAL M.D. Performed By: #### B MP, DIFF CBC, LIPASE ####[address] GFR/1.73 sq M.predicted MDRD (S/P/Bld) [Vol rate/Area] 14.192 mL/min/{1.73_m2} Normal [facility] Comment on above: Performed By: #### B MP, DIFF CBC, LIPASE ####[address] Glucose [Mass/Vol] 153 mg/dL High 70-100 [facility] Comment on above: Result Comment: [place] Glucose Reference Range is dependent on time and content of last meal. Glucose of more than 200 mg/dL in a nonstressed, ambulatory subject supports the diagnosis of Diabetes Mellitus. ADA recommended reference range Performed By: #### B MP, DIFF CBC, LIPASE ####[address] Potassium [Moles/Vol] 3.9 mmol/L Normal 3.5-5.1 [facility] Comment on above: Performed By: #### B MP, DIFF CBC, LIPASE ####[address] Sodium [Moles/Vol] 126 mmol/L Low 136-145 [facility] Comment on above: Performed By: #### B MP, DIFF CBC, LIPASE ####[address] Urea nitrogen [Mass/Vol] 72 mg/dL High 7-25 [facility] Comment on above: Performed By: #### B MP, DIFF CBC, LIPASE ####[address] Bilirubin Test strip Ql (U)O rdered By: Ari Fernández on 02-15-2024 Bilirubin Ql (U) 1+ Negative [facility] Oliva cells [Presence] in Blo od by Light microscopyOrdered By: Vincenzo Ragsdale on 02-15-2024 [place] cells LM Ql (Bld) Slight [facility] Color Auto (U)Ordered By: Ibeth Fernández on 02-15-2024 Color (U) Dark yellow Yellow [facility] Creatinine [Mass/volume] in UrineOrdered By: Ari Fernández on 02-15-2024 Creatinine (U) [Mass/Vol] 120.0 mg/dL [facility] Comment on above: No reference range e stablished Creatinine, Urine (Random)on 02-15-2024 Creatinine, Urine (Random) 120.0 mg/dL Normal [facility] Comment on above: Result Comment: No r eference range established Performed By: #### U CREA, RAFIQ, ADDONUAPLUS ####[address] Diff and CBCon 02-15-2024 Band form neutrophils/100 WBC (Bld) 21 % High 0-5 [facility] Comment on above: Performed By: #### B MP, DIFF CBC, LIPASE ####[address] Crenated RBC Slight Normal [facility] Comment on above: Performed By: #### B MP, DIFF CBC, LIPASE ####[address] Eosinophils/100 WBC (Bld) 2 % Normal 1-3 [facility] Comment on above: Performed By: #### B MP, DIFF CBC, LIPASE ####[address] Erythrocyte distribution width (RBC) [Ratio] 14.1 % Normal 11.9-15.3 [facility] Comment on above: Performed By: #### B MP, DIFF CBC, LIPASE ####[address] Giant Platelet Tally 1 /100{WBC} Normal [facility] Comment on above: Performed By: #### B MP, DIFF CBC, LIPASE ####[address] Hematocrit (Bld) [Volume fraction] 32.6 % Low 34.0-46.4 [facility] Comment on above: Performed By: #### B MP, DIFF CBC, LIPASE ####[address] Hemoglobin (Bld) [Mass/Vol] 11.0 g/dL Low 11.8-15.4 [facility] Comment on above: Performed By: #### B MP, DIFF CBC, LIPASE ####[address] Lymphocytes/100 WBC (Bld) 2 % Low 18-42 [facility] Comment on above: Performed By: #### B MP, DIFF CBC, LIPASE ####[address] MCH (RBC) [Entitic mass] 31.4 pg Normal 24.7-34.3 [facility] Comment on above: Performed By: #### B MP, DIFF CBC, LIPASE ####[address] MCV (RBC) [Entitic vol] 92.9 fL Normal 80-100 [facility] Comment on above: Performed By: #### B MP, DIFF CBC, LIPASE ####[address] Mean Corpuscular HGB Conc 33.8 g/dL Normal 32.0-35.0 [facility] Comment on above: Performed By: #### B MP, DIFF CBC, LIPASE ####[address] Monocytes/100 WBC (Bld) 1 % Low 2-11 [facility] Comment on above: Performed By: #### B MP, DIFF CBC, LIPASE ####[address] Platelet Estimate Normal Normal Normal [facility] Comment on above: Performed By: #### B MP, DIFF CBC, LIPASE ####[address] Platelet mean volume (Bld) [Entitic vol] 8.0 fL Normal 6.3-10.7 [facility] Comment on above: Performed By: #### B MP, DIFF CBC, LIPASE ####[address] Platelet Morphology Normal Normal Normal [facility] Comment on above: Result Comment: PERF ORMED BY:[address] [place], [place] [phone] MEDICAL DIRECTORXAVIER AGARWAL M.D. Performed By: #### B MP, DIFF CBC, LIPASE ####[address] Platelets (Bld) [#/Vol] 225 10*3/uL Normal 150-450 [facility] Comment on above: Performed By: #### B MP, DIFF CBC, LIPASE ####[address] RBC (Bld) [#/Vol] 3.51 10*6/uL Low 3.60-5.00 [facility] Comment on above: Performed By: #### B MP, DIFF CBC, LIPASE ####[address] Segmented neutrophils/100 WBC (Bld) 74 % High 50-70 [facility] Comment on above: Performed By: #### B MP, DIFF CBC, LIPASE ####[address] WBC (Bld) [#/Vol] 16.9 10*3/uL High 3.8-11.6 [facility] Comment on above: Performed By: #### B MP, DIFF CBC, LIPASE ####[address] Dipstick and Microscopicon 0 02-15-2024 Appearance (U) Cloudy Critically abnormal Clear [facility] Comment on above: Order Comment: Name Collection Type:: Voided Performed By: #### U CREA, RAFIQ, ADDONUAPLUS ####[address] [address] [facility] Bacteria,Urine 1+ High None Seen [facility] Comment on above: Order Comment: Name Collection Type:: Voided Performed By: #### U CREA, RAFIQ, ADDONUAPLUS ####[address] [address] [facility] Bilirubin,Urine 1+ High Negative [facility] Comment on above: Order Comment: Name Collection Type:: Voided Performed By: #### U CREA, RAFIQ, ADDONUAPLUS ####[address] [address] [facility] Color (U) Dark Yellow Critically abnormal Yellow [facility] Comment on above: Order Comment: Name Collection Type:: Voided Performed By: #### U CREA, RAFIQ, ADDONUAPLUS ####[address] [address] [facility] Glucose Ql (U) Normal Normal Normal [facility] Comment on above: Order Comment: Name Collection Type:: Voided Performed By: #### U CREA, RAFIQ, ADDONUAPLUS ####[address] [address] [facility] Hyaline Casts,Urine 0-8 Normal 0-8 [facility] Comment on above: Order Comment: Name Collection Type:: Voided Result Comment: PERF ORMED BY:[address] [place], [place] [phone] MEDICAL DIRECTORXAVIER AGARWAL M.D. Performed By: #### U CREA, RAFIQ, ADDONUAPLUS ####[address] [address] [facility] Ketones Ql (U) Trace High Negative [facility] Comment on above: Order Comment: Name Collection Type:: Voided Performed By: #### U CREA, RAFIQ, ADDONUAPLUS ####[address] [address] [facility] Leukocyte esterase Test strip Ql (U) 2+ High Negative [facility] Comment on above: Order Comment: Name Collection Type:: Voided Performed By: #### U CREA, RAFIQ, ADDONUAPLUS ####[address] [address] [facility] Nitrite,Urine Negative Normal Negative [facility] Comment on above: Order Comment: Name Collection Type:: Voided Performed By: #### U CREA, RAFIQ, ADDONUAPLUS ####[address] [address] [facility] Occult Blood,Urine Negative Normal Negative [facility] Comment on above: Order Comment: Name Collection Type:: Voided Result Comment: PERF ORMED BY:[address] [place], [place] [phone] MEDICAL DIRECTORXAVIER AGARWAL M.D. Performed By: #### U CREA, RAFIQ, ADDONUAPLUS ####[address] [address] [facility] pH (U) 5.0 [pH] Normal 5.0-9.0 [facility] Comment on above: Order Comment: Name Collection Type:: Voided Performed By: #### U CREA, RAFIQ, ADDONUAPLUS ####[address] [address] [facility] Protein,Urine Negative Normal Negative [facility] Comment on above: Order Comment: Name Collection Type:: Voided Performed By: #### U CREA, RAFIQ, ADDONUAPLUS ####[address] [address] [facility] RBC,Urine 3-4 Normal 0-4 [facility] Comment on above: Order Comment: Name Collection Type:: Voided Performed By: #### U CREA, RAFIQ, ADDONUAPLUS ####[address] [address] [facility] Specificy [place],Urine 1.016 Normal 1.001-1.03 0 [facility] Comment on above: Order Comment: Name Collection Type:: Voided Performed By: #### U CREA, RAFIQ, ADDONUAPLUS ####[address] Squamous Epithelial Cell,Urine 5-9 High 0-2 [facility] Comment on above: Order Comment: Name Collection Type:: Voided Performed By: #### U CREA, RAFIQ, ADDONUAPLUS ####[address] Urobilinogen,Urine Normal Normal Normal [facility] Comment on above: Order Comment: Name Collection Type:: Voided Performed By: #### U CREA, RAFIQ, ADDONUAPLUS ####[address] WBC,Urine 1-2 Normal 0-4 [facility] Comment on above: Order Comment: Name Collection Type:: Voided Performed By: #### U CREA, RAFIQ, ADDONUAPLUS ####[address] ECG 12 lead ECGon 02-15-2024 ECG 12 lead ECG Normal [facility] Giant platelets/100 leukocyt es [Ratio] in Blood by Manual countOrdered By: Vincenzo Ragsdale on 02-15-2024 Giant platelets/100 WBC Manual cnt (Bld) [Ratio] 1 /100{WBC} [facility] Glucose Poct Glucometerson 0 02-15-2024 Glucose [Mass/Vol] 289 mg/dL Normal [facility] Comment on above: Result Comment: [facility] Glucose Reference Range is dependent on time and content of last meal. Glucose of more than 200 mg/dL in a nonstressed, ambulatory subject supports the diagnosis of Diabetes Mellitus.PERFORMED BY:[address] [place], [place] [phone] MEDICAL LILIYA AGARWAL M.D. Performed By: #### G BENSON ####Point of Care testing, Glucose [Mass/Vol] 188 mg/dL Normal [facility] Comment on above: Result Comment: [facility] Glucose Reference Range is dependent on time and content of last meal. Glucose of more than 200 mg/dL in a nonstressed, ambulatory subject supports the diagnosis of Diabetes Mellitus.PERFORMED BY:[place] [address] [place], [place] [phone] MEDICAL LILIYA AGARWAL M.D. Performed By: #### G LULS ####Point of Care testing, Glucose [Mass/Vol] 177 mg/dL Normal [facility] Comment on above: Result Comment: [facility] Glucose Reference Range is dependent on time and content of last meal. Glucose of more than 200 mg/dL in a nonstressed, ambulatory subject supports the diagnosis of Diabetes Mellitus.PERFORMED BY:[place] [address] [place], [place] [phone] MEDICAL DIRECTORXAVIER AGARWAL M.D. Performed By: #### G LULS ####Point of Care testing, Glucose [Mass/Vol] 161 mg/dL Normal [facility] Comment on above: Result Comment: [facility] Glucose Reference Range is dependent on time and content of last meal. Glucose of more than 200 mg/dL in a nonstressed, ambulatory subject supports the diagnosis of Diabetes Mellitus.PERFORMED BY:[place] [address] [place], [place] [phone] MEDICAL LILIYA AGARWAL M.D. Performed By: #### G LULS ####Point of Care testing, Ketones Auto test strip (U) [Mass/Vol]Ordered By: Ari Fernández on 02-15-2024 Ketones (U) [Mass/Vol] Trace Negative [facility] - UrinalysisOrder ed By: Ari Fernández on 02-15-2024 Hyaline casts LM Ql (Urine sed) 0-8 [LPF] 0-8 [facility] Lipaseon 02-15-2024 Lipase [Catalytic activity/Vol] U/L Low 11.0-82.0 [facility] Comment on above: Result Comment: PERF ORMED BY:[place] [address] [place], [place] [phone] MEDICAL DIRECTORXAVIER AGARWAL M.D. Performed By: #### B MP, DIFF CBC, LIPASE ####[facility] [id number] [place] [address] [facility] Lipase [Enzymatic activity/v olume] in Serum or PlasmaOrdered By: Deep Eubanks on 02-15-2024 Lipase [Catalytic activity/Vol] U/L 11.0-82.0 [facility] Nitrite Test strip Ql (U)Ord ered By: Ari Fernández on 02-15-2024 Nitrite Ql (U) Negative Negative [facility] Protein Auto test strip (U) [Mass/Vol]Ordered By: Ari Fernández on 02-15-2024 Protein (U) [Mass/Vol] Negative Negative [facility] Sodium [Moles/volume] in Uri neOrdered By: Ari Fernández on 02-15-2024 Sodium (U) [Moles/Vol] 19 mmol/L [facility] Comment on above: No reference range e stablished Sodium, Urine (Random)on Sodium (U) [Moles/Vol] 19 mmol/L Normal [facility] Comment on above: Result Comment: No r eference range establishedPERFORMED BY:[address] [place], [place] [phone] MEDICAL LILIYA AGARWAL M.D. Performed By: #### U CREA, RAFIQ, ADDONUAPLUS ####[place] [address] [place] [address] [facility] Specific gravity Auto test s trip (U) [Rel density]Ordered By: Ari Fernández on 02-15-2024 Specific gravity (U) [Rel density] 1.016 1.001-1.03 0 [facility] Squamous epithelial cells de tection in urine sediment by light microscopyOrdered By: Ari Fernández on 02-15-2024 Epithelial cells.squamous LM Ql (Urine sed) 5-9 [HPF] 0-2 [facility] Urine bacteria detection by automated methodOrdered By: Ari Fernández on 02-15-2024 Bacteria Auto Ql (U) 1+ None Seen [facility] Urine clarity by refractomet ry automatedOrdered By: Ari Johnsonemma on 02-15-2024 Clarity Refractometry automated (U) Cloudy Clear [facility] Urine glucose measurement by automated test strip (mass/volume)Ordered By: Ari Pradeep on 02-15-2024 Glucose Auto test strip (U) [Mass/Vol] Normal mg/dL Normal [facility] Urine hemoglobin detection b y automated test stripOrdered By: Ari Johnsonemma on 02-15-2024 Hemoglobin Auto test strip Ql (U) Negative Negative [facility] Urine leukocyte esterase det ection by automated test stripOrdered By: Ari Johnsonemma on 02-15-2024 Leukocyte esterase Auto test strip Ql (U) 2+ Negative [facility] Urobilinogen Auto test strip (U) [Mass/Vol]Ordered By: Ari Pradeep on 02-15-2024 Urobilinogen (U) [Mass/Vol] Normal mg/dL Normal [facility] pH Auto test strip (U)Ordere d By: Kiansarah Fernández on 02-15-2024 pH (U) 5.0 [pH] 5.0-9.0 [facility] A1C with Estimated Average G jordann 02-14-2024 HbA1c (Bld) [Mass fraction] 7.4 % High 4.3-5.6 [facility] Comment on above: Result Comment: Incr eased risk for diabetes: 5.7 - 6.4 diabetes: >6.4 glycemic control for adults with diabetes: <7.0 Performed By: #### B MP, A1C WTH eA, MG ####[facility] [id number] Basic Metabolic Panelon 01-28 Anion gap [Moles/Vol] 17.7 mmol/L High 6.0-15.0 [facility] Comment on above: Performed By: #### B MP, DIFF CBC ####[facility] [place] [id number] [facility] Calcium [Mass/Vol] 8.4 mg/dL Low 8.6-10.3 [facility] Comment on above: Performed By: #### B MP, DIFF CBC ####[place] [address] [place] [id number] [facility] Chloride [Moles/Vol] 90 mmol/L Low 98-107 [facility] Comment on above: Performed By: #### B MP, DIFF CBC ####[place] [id number] [facility] CO2 [Moles/Vol] 23.2 mmol/L Normal 21.0-31.0 [facility] Comment on above: Performed By: #### B MP, DIFF CBC ####[address] Creatinine [Mass/Vol] 3.04 mg/dL High 0.60-1.20 [facility] Comment on above: Performed By: #### B MP, DIFF CBC ####[address] Creatinine Clr Calc Pharmacy 25.42 Normal [facility] Comment on above: Result Comment: PERF ORMED BY:[address] [place], [place] [phone] MEDICAL DIRECTORXAVIER AGARWAL M.D. Performed By: #### B MP, DIFF CBC ####[address] GFR/1.73 sq M.predicted MDRD (S/P/Bld) [Vol rate/Area] 16.061 mL/min/{1.73_m2} Normal [facility] Comment on above: Performed By: #### B MP, DIFF CBC ####[place] [id number] [facility] Potassium [Moles/Vol] 3.9 mmol/L Normal 3.5-5.1 [facility] Comment on above: Performed By: #### B MP, DIFF CBC ####[address] Sodium [Moles/Vol] 127 mmol/L Low 136-145 [facility] Comment on above: Performed By: #### B MP, DIFF CBC ####[place] [id number] [facility] Urea nitrogen [Mass/Vol] 60 mg/dL High 7-25 [facility] Comment on above: Performed By: #### B MP, DIFF CBC ####[address] Anion gap [Moles/Vol] 18.7 mmol/L High 6.0-15.0 [facility] Comment on above: Performed By: #### B MP, A1C WTH eA, MG ####[address] Calcium [Mass/Vol] 8.5 mg/dL Low 8.6-10.3 [facility] Comment on above: Performed By: #### B BROOK, A1C WTH eA, MG ####[address] Chloride [Moles/Vol] 88 mmol/L Low 98-107 [facility] Comment on above: Performed By: #### B BROOK, A1C WTH eA, MG ####[address] CO2 [Moles/Vol] 28.1 mmol/L Normal 21.0-31.0 [facility] Comment on above: Performed By: #### B BROOK, A1C WTH eA, MG ####[address] Creatinine [Mass/Vol] 2.84 mg/dL Significan t change up 0.60-1.20 [facility] Comment on above: Performed By: #### B BROOK, A1C WTH eA, MG ####[place] [address] [place] Creatinine Clr Calc Pharmacy 27.21 Normal [facility] Comment on above: Performed By: #### B BROOK, A1C WTH eA, MG ####[place] [id number] [place] GFR/1.73 sq M.predicted MDRD (S/P/Bld) [Vol rate/Area] 17.428 mL/min/{1.73_m2} Normal [facility] Comment on above: Performed By: #### B MP, A1C WTH eA, MG ####[id number] [place] [address] [facility] Glucose [Mass/Vol] 166 mg/dL Normal [facility] Comment on above: Result Comment: [place] Glucose Reference Range is dependent on time and content of last meal. Glucose of more than 200 mg/dL in a nonstressed, ambulatory subject supports the diagnosis of Diabetes Mellitus. ADA recommended reference range Performed By: #### B MP, DIFF CBC ####[address] [address] [facility] Result Comment: PERF ORMED BY:[address] [place], [place] [phone] MEDICAL DIRECTORXAVIER AGARWAL M.D. Performed By: #### B MP, A1C WTH eA, MG ####[place] [id number] [facility] Glucose [Mass/Vol] 151 mg/dL High 70-100 [facility] Comment on above: Result Comment: [place] Glucose Reference Range is dependent on time and content of last meal. Glucose of more than 200 mg/dL in a nonstressed, ambulatory subject supports the diagnosis of Diabetes Mellitus. ADA recommended reference range Performed By: #### B MP, A1C WTH eA, MG ####[address] [address] [facility] Potassium [Moles/Vol] 3.8 mmol/L Normal 3.5-5.1 [facility] Comment on above: Performed By: #### B MP, A1C WTH eA, MG ####[facility] [place] [address] [place] Sodium [Moles/Vol] 131 mmol/L Low 136-145 [facility] Comment on above: Performed By: #### B MP, A1C WTH eA, MG ####[facility] [place] [address] [facility] Urea nitrogen [Mass/Vol] 55 mg/dL High 7-25 [facility] Comment on above: Performed By: #### B MP, A1C WTH eA, MG ####[address] [place] [address] [facility] Diff and CBCon 02-14-2024 Band form neutrophils/100 WBC (Bld) 65 % High 0-5 [facility] Comment on above: Performed By: #### B MP, DIFF CBC ####[address] [address] [facility] Basophils/100 WBC (Bld) 0 % Normal 0-2 [facility] Comment on above: Performed By: #### B MP, DIFF CBC ####[place] [id number] [facility] Eosinophils/100 WBC (Bld) 0 % Low 1-3 [facility] Comment on above: Performed By: #### B MP, DIFF CBC ####[place] [id number] [facility] Erythrocyte distribution width (RBC) [Ratio] 14.0 % Normal 11.9-15.3 [facility] Comment on above: Performed By: #### B MP, DIFF CBC ####[place] [address] [facility] Hematocrit (Bld) [Volume fraction] 38.6 % Normal 34.0-46.4 [facility] Comment on above: Performed By: #### B MP, DIFF CBC ####[place] [address] [facility] Hemoglobin (Bld) [Mass/Vol] 12.6 g/dL Normal 11.8-15.4 [facility] Comment on above: Performed By: #### B MP, DIFF CBC ####[place] [address] [facility] Lymphocytes/100 WBC (Bld) 5 % Low 18-42 [facility] Comment on above: Performed By: #### B MP, DIFF CBC ####[place] [address] [facility] MCH (RBC) [Entitic mass] 30.8 pg Normal 24.7-34.3 [facility] Comment on above: Performed By: #### B MP, DIFF CBC ####[address] MCV (RBC) [Entitic vol] 94.0 fL Normal 80-100 [facility] Comment on above: Performed By: #### B MP, DIFF CBC ####[address] Mean Corpuscular HGB Conc 32.8 g/dL Normal 32.0-35.0 [facility] Comment on above: Performed By: #### B MP, DIFF CBC ####[address] Metamyelocytes 5 % High 0-0 [facility] Comment on above: Performed By: #### B MP, DIFF CBC ####[address] Monocytes/100 WBC (Bld) 3 % Normal 2-11 [facility] Comment on above: Performed By: #### B MP, DIFF CBC ####[address] Myelocytes 1 % High 0-0 [facility] Comment on above: Performed By: #### B MP, DIFF CBC ####[address] Platelets (Bld) [#/Vol] 240 10*3/uL Normal 150-450 [facility] Comment on above: Performed By: #### B MP, DIFF CBC ####[address] RBC (Bld) [#/Vol] 4.11 10*6/uL Normal 3.60-5.00 [facility] Comment on above: Performed By: #### B MP, DIFF CBC ####[address] Segmented neutrophils/100 WBC (Bld) 21 % Low 50-70 [facility] Comment on above: Performed By: #### B MP, DIFF CBC ####[address] WBC (Bld) [#/Vol] 15.7 10*3/uL High 3.8-11.6 [facility] Comment on above: Performed By: #### B MP, DIFF CBC ####[address] Band form neutrophils/100 WBC (Bld) 75 % High 0-5 [facility] Comment on above: Performed By: #### D IFF CBC ####[address] Erythrocyte distribution width (RBC) [Ratio] 14.2 % Normal 11.9-15.3 [facility] Comment on above: Performed By: #### D IFF CBC ####[address] Hematocrit (Bld) [Volume fraction] 39.6 % Normal 34.0-46.4 [facility] Comment on above: Performed By: #### D IFF CBC ####[address] Hemoglobin (Bld) [Mass/Vol] 13.1 g/dL Normal 11.8-15.4 [facility] Comment on above: Performed By: #### D IFF CBC ####[address] Lymphocytes/100 WBC (Bld) 2 % Low 18-42 [facility] Comment on above: Performed By: #### D IFF CBC ####[address] MCH (RBC) [Entitic mass] 30.7 pg Normal 24.7-34.3 [facility] Comment on above: Performed By: #### D IFF CBC ####[address] MCV (RBC) [Entitic vol] 92.6 fL Normal 80-100 [facility] Comment on above: Performed By: #### D IFF CBC ####[address] Mean Corpuscular HGB Conc 33.1 g/dL Normal 32.0-35.0 [facility] Comment on above: Performed By: #### D IFF CBC ####[address] Metamyelocytes 7 % High 0-0 [facility] Comment on above: Performed By: #### D IFF CBC ####[place] [id number] [facility] Monocytes/100 WBC (Bld) 1 % Low 2-11 [facility] Comment on above: Performed By: #### D IFF CBC ####[address] Platelet Estimate Normal Normal Normal [facility] Comment on above: Performed By: #### B MP, DIFF CBC ####[address] Performed By: #### D IFF CBC ####[place] [id number] [facility] Platelet mean volume (Bld) [Entitic vol] 7.7 fL Normal 6.3-10.7 [facility] Comment on above: Performed By: #### B MP, DIFF CBC ####[place] [address] [facility] Result Comment: PERF ORMED BY:[address] [place] [place], [place] [phone] MEDICAL DIRECTORXAVIER AGARWAL M.D. Performed By: #### D IFF CBC ####[place] [address] [facility] Platelet Morphology Normal Normal Normal [facility] Comment on above: Result Comment: PERF ORMED BY:[address] [place], [place] [phone] MEDICAL DIRECTORXAVIER AGARWAL M.D. Performed By: #### B MP, DIFF CBC ####[place] [id number] [facility] Performed By: #### D IFF CBC ####[address] Platelets (Bld) [#/Vol] 300 10*3/uL Normal 150-450 [facility] Comment on above: Performed By: #### D IFF CBC ####[address] RBC (Bld) [#/Vol] 4.28 10*6/uL Normal 3.60-5.00 [facility] Comment on above: Performed By: #### D IFF CBC ####[address] RBC morphology finding Nom (Bld) Normal Normal Normal [facility] Comment on above: Performed By: #### B MP, DIFF CBC ####[address] Performed By: #### D IFF CBC ####[address] Segmented neutrophils/100 WBC (Bld) 16 % Low 50-70 [facility] Comment on above: Performed By: #### D IFF CBC ####[address] WBC (Bld) [#/Vol] 13.9 10*3/uL High 3.8-11.6 [facility] Comment on above: Performed By: #### D IFF CBC ####[address] Dipstick and Microscopicon 0 02-14-2024 Appearance (U) Cloudy Critically abnormal Clear [facility] Comment on above: Order Comment: Name Collection Type:: Straight Catheter Performed By: #### A DDONUAPLUS ####[address] Bacteria,Urine 3+ High None Seen [facility] Comment on above: Order Comment: Name Collection Type:: Straight Catheter Performed By: #### A DDONUAPLUS ####[address] Bilirubin,Urine 1+ High Negative [facility] Comment on above: Order Comment: Name Collection Type:: Straight Catheter Performed By: #### A DDONUAPLUS ####[address] [address] [facility] Color (U) Dark Yellow Critically abnormal Yellow [facility] Comment on above: Order Comment: Name Collection Type:: Straight Catheter Performed By: #### A DDONUAPLUS ####[place] [id number] [facility] Glucose Ql (U) Normal Normal Normal [facility] Comment on above: Order Comment: Name Collection Type:: Straight Catheter Performed By: #### A DDONUAPLUS ####[place] [address] [facility] Hyaline Casts,Urine 0-8 Normal 0-8 [facility] Comment on above: Order Comment: Name Collection Type:: Straight Catheter Performed By: #### A DDONUAPLUS ####[place] [address] [facility] Ketones Ql (U) Negative Normal Negative [facility] Comment on above: Order Comment: Name Collection Type:: Straight Catheter Performed By: #### A DDONUAPLUS ####[place] [id number] [facility] Leukocyte esterase Test strip Ql (U) 2+ High Negative [facility] Comment on above: Order Comment: Name Collection Type:: Straight Catheter Performed By: #### A DDONUAPLUS ####[place] [id number] [facility] Mucus,Urine 2+ Critically abnormal [facility] Comment on above: Order Comment: Name Collection Type:: Straight Catheter Performed By: #### A DDONUAPLUS ####[place] [address] [facility] Nitrite,Urine Negative Normal Negative [facility] Comment on above: Order Comment: Name Collection Type:: Straight Catheter Performed By: #### A DDONUAPLUS ####[place] [address] [place] Occult Blood,Urine Negative Normal Negative [facility] Comment on above: Order Comment: Name Collection Type:: Straight Catheter Result Comment: PERF ORMED BY:[address] [place], [place] [phone] MEDICAL DIRECTORXAVIER AGARWAL M.D. Performed By: #### A DDONUAPLUS ####[address] [address] [facility] pH (U) 5.0 [pH] Normal 5.0-9.0 [facility] Comment on above: Order Comment: Name Collection Type:: Straight Catheter Performed By: #### A DDONUAPLUS ####[address] [address] [facility] Protein,Urine Negative Normal Negative [facility] Comment on above: Order Comment: Name Collection Type:: Straight Catheter Performed By: #### A DDONUAPLUS ####[address] [address] [facility] RBC,Urine 3-4 Normal 0-4 [facility] Comment on above: Order Comment: Name Collection Type:: Straight Catheter Performed By: #### A DDONUAPLUS ####[address] [address] [facility] Specificy [place],Urine 1.019 Normal 1.001-1.03 0 [facility] Comment on above: Order Comment: Name Collection Type:: Straight Catheter Performed By: #### A DDONUAPLUS ####[address] [address] [facility] Squamous Epithelial Cell,Urine 5-9 High 0-2 [facility] Comment on above: Order Comment: Name Collection Type:: Straight Catheter Performed By: #### A DDONUAPLUS ####[address] [address] [facility] Urobilinogen,Urine Normal Normal Normal [facility] Comment on above: Order Comment: Name Collection Type:: Straight Catheter Performed By: #### A DDONUAPLUS ####[address] [address] [facility] WBC,Urine 10-19 High 0-4 [facility] Comment on above: Order Comment: Name Collection Type:: Straight Catheter Performed By: #### A DDONUAPLUS ####[place] [address] [facility] Yeast,Urine None Seen Normal None Seen [facility] Comment on above: Order Comment: Name Collection Type:: Straight Catheter Result Comment: PERF ORMED BY:[address] [place], [place] [phone] MEDICAL LILIYA AGARWAL M.D. Performed By: #### A DDONUAPLUS ####[address] [address] [facility] ECG 12 lead ECGon 02-14-2024 ECG 12 lead ECG Normal [facility] Glucose Poct Glucometerson 0 - Glucose [Mass/Vol] 202 mg/dL Normal [facility] Comment on above: Result Comment: [facility] Glucose Reference Range is dependent on time and content of last meal. Glucose of more than 200 mg/dL in a nonstressed, ambulatory subject supports the diagnosis of Diabetes Mellitus.PERFORMED BY:[address] [place], [place] [phone] MEDICAL LILIYA AGARWAL M.D. Performed By: #### G LULS ####Point of Care testing, Glucose [Mass/Vol] 174 mg/dL Normal [facility] Comment on above: Result Comment: [facility] Glucose Reference Range is dependent on time and content of last meal. Glucose of more than 200 mg/dL in a nonstressed, ambulatory subject supports the diagnosis of Diabetes Mellitus.PERFORMED BY:[address] [place], [place] [phone] MEDICAL LILIYA AGARWAL M.D. Performed By: #### G LULS ####Point of Care testing, Glucose [Mass/Vol] 175 mg/dL Normal [facility] Comment on above: Result Comment: [facility] Glucose Reference Range is dependent on time and content of last meal. Glucose of more than 200 mg/dL in a nonstressed, ambulatory subject supports the diagnosis of Diabetes Mellitus.PERFORMED BY:[address] [place] [place], [place] [phone] MEDICAL DIRECTORXAVIER AGARWAL M.D. Performed By: #### G LULS ####Point of Care testing, Glucose [Mass/Vol] 142 mg/dL Normal [facility] Comment on above: Result Comment: [facility] Glucose Reference Range is dependent on time and content of last meal. Glucose of more than 200 mg/dL in a nonstressed, ambulatory subject supports the diagnosis of Diabetes Mellitus.PERFORMED BY:[address] [place], [place] [phone] MEDICAL DIRECTORXAVIER AGARWAL M.D. Performed By: #### G LULS ####Point of Care testing, Glucose [Mass/Vol] 202 mg/dL Normal [facility] Comment on above: Result Comment: [facility] Glucose Reference Range is dependent on time and content of last meal. Glucose of more than 200 mg/dL in a nonstressed, ambulatory subject supports the diagnosis of Diabetes Mellitus.PERFORMED BY:[address] [place], [place] [phone] MEDICAL DIRECTORXAVIER AGARWAL M.D. Performed By: #### G LULS ####Point of Care testing, Glucose mean value [Mass/vol ume] in Blood Estimated from glycated hemoglobinOrdered By: Vincenzo Ragsdale on 02-14-2024 Average glucose Estimated from glycated hemoglobin (Bld) [Mass/Vol] 166 mg/dL [facility] Hemoglobin A1c percentageOrd ered By: Vincenzo Ragsdale on 02-14-2024 HbA1c (Bld) [Mass fraction] 7.4 % 4.3-5.6 [facility] Comment on above: Increased risk for d iabetes: 5.7 - 6.4diabetes: >6.4glycemic control for adults with diabetes: <7.0 Magnesiumon 02-14-2024 Magnesium [Mass/Vol] 1.4 mg/dL Low 1.9-2.7 [facility] Comment on above: Result Comment: PERF ORMED BY:[facility] [place] [place], [place] [phone] MEDICAL DIRECTORXAVIER AGARWAL M.D. Performed By: #### B MP, A1C WTH eA, MG ####[facility] [address] [place] [address] [facility] Mucus LM Ql (Urine sed)Order ed By: Vincenzo Ragsdale on 02-14-2024 Mucus Ql (Urine sed) 2+ [LPF] [facility] Urine Cultureon 02-14-2024 Bacteria identified Cx Nom (U) Normal [facility] Comment on above: Performed By: #### C UU ####[id number] [place] [id number] [facility] Urine culture routineOrdered By: Vincenzo Ragsdale on 02-14-2024 Bacteria identified Cx Nom (U) 2 Days [facility] Yeast detection in urine sed iment by light microscopyOrdered By: Vincenzo Ragsdale on 02-14-2024 Yeast LM Ql (Urine sed) None seen [HPF] None Seen [facility] Activated partial thrombopla stin time (aPTT) in platelet poor plasma by coagulation aOrdered By: Vincenzo Ragsdale on 02-13-2024 aPTT Coag (PPP) [Time] 29.3 s 25.1-36.5 [facility] Comment on above: A hematocrit value g reater than 55% may lead to inaccurate results in coagulation testing. Patients having hematocrit values >55% require a special collection tube for coagulation studies. Please contact the laboratory at [phone] for redraw instructions. Alanine aminotransferase [En zymatic activity/volume] in Serum or PlasmaOrdered By: Celsa Ratliff on 02-13-2024 ALT [Catalytic activity/Vol] 25 U/L [facility] Alanine aminotransferase [En zymatic activity/volume] in Serum or PlasmaOrdered By: Andres Orellana on 02-13-2024 ALT [Catalytic activity/Vol] 12 U/L [facility] Albumin [Mass/volume] in Ser um or Plasma by Bromocresol green (BCG) dye binding methoOrdered By: Celsa Ratliff on 02-13-2024 Albumin BCG dye [Mass/Vol] 3.5 g/dL 3.5-5.7 [facility] Albumin [Mass/volume] in Ser um or Plasma by Bromocresol green (BCG) dye binding methoOrdered By: Andres Orellana on 02-13-2024 Albumin BCG dye [Mass/Vol] 4.0 g/dL 3.5-5.7 [facility] Alkaline phosphatase [Enzyma tic activity/volume] in Serum or PlasmaOrdered By: Celsa Ratliff on 02-13-2024 ALP [Catalytic activity/Vol] 52 U/L [address] [facility] Alkaline phosphatase [Enzyma tic activity/volume] in Serum or PlasmaOrdered By: Andres Orellana on 02-13-2024 ALP [Catalytic activity/Vol] 61 U/L [address] [facility] Aspartate aminotransferase [ Enzymatic activity/volume] in Serum or PlasmaOrdered By: Celsa Ratliff on 02-13-2024 AST [Catalytic activity/Vol] 45 U/L [facility] Aspartate aminotransferase [ Enzymatic activity/volume] in Serum or PlasmaOrdered By: Andres Orellana on 02-13-2024 AST [Catalytic activity/Vol] 18 U/L 39 [facility] Automated erythrocytes count in urine sediment (number/area)Ordered By: Andres Orellana on 02-13-2024 RBC Auto (Urine sed) [#/Area] 0-1 [HPF] 0-4 [facility] Automated leukocytes count i n urine sediment (number/area)Ordered By: Andres Orellana on 02-13-2024 WBC Auto (Urine sed) [#/Area] 0-1 [HPF] 0-4 [facility] B-Type Natriuretic Peptideon 02-13-2024 Natriuretic peptide B (Bld) [Mass/Vol] 242.0 pg/mL High 5-100 [facility] Comment on above: Result Comment: PERF ORMED BY:[address] [place], [place] [phone] MEDICAL DIRECTORXAVIER AGARWAL M.D. Performed By: #### B [employer] ####[address] [address] [facility] Natriuretic peptide B (Bld) [Mass/Vol] 87.0 pg/mL Normal 5-100 [facility] Comment on above: Result Comment: PERF ORMED BY:[address] [place], [place] [phone] MEDICAL DIRECTORXAVIER AGARWAL M.D. Performed By: #### L IPASE, CBC, BNP, HEPATIC, BMP ####[address] [address] [facility] Bacterial blood cultureOrder ed By: Vincenzo Ragsdale on 02-13-2024 Bacteria identified Cx Nom (Bld) NO GROWTH 5 DAYS [facility] Bacteria identified Cx Nom (Bld) NO GROWTH 5 DAYS [facility] Basic Metabolic Panelon 01-28 Anion gap [Moles/Vol] 18.3 mmol/L High 6.0-15.0 [facility] Comment on above: Performed By: #### L IPASE, CBC, BNP, HEPATIC, BMP ####[address] [id number] [facility] Calcium [Mass/Vol] 9.8 mg/dL Normal 8.6-10.3 [facility] Comment on above: Performed By: #### L IPASE, CBC, BNP, HEPATIC, BMP ####[place] [id number] [facility] Chloride [Moles/Vol] 93 mmol/L Low 98-107 [facility] Comment on above: Performed By: #### L IPASE, CBC, BNP, HEPATIC, BMP ####[place] [id number] [facility] CO2 [Moles/Vol] 27.7 mmol/L Normal 21.0-31.0 [facility] Comment on above: Performed By: #### L IPASE, CBC, BNP, HEPATIC, BMP ####[place] [id number] [facility] Creatinine [Mass/Vol] 1.57 mg/dL High 0.60-1.20 [facility] Comment on above: Performed By: #### L IPASE, CBC, BNP, HEPATIC, BMP ####[address] Creatinine Clr Calc Pharmacy 48.39 Normal [facility] Comment on above: Performed By: #### L IPASE, CBC, BNP, HEPATIC, BMP ####[address] GFR/1.73 sq M.predicted MDRD (S/P/Bld) [Vol rate/Area] 35.493 mL/min/{1.73_m2} Normal [facility] Comment on above: Performed By: #### L IPASE, CBC, BNP, HEPATIC, BMP ####[address] Glucose [Mass/Vol] 128 mg/dL High 70-100 [facility] Comment on above: Result Comment: [facility] Glucose Reference Range is dependent on time and content of last meal. Glucose of more than 200 mg/dL in a nonstressed, ambulatory subject supports the diagnosis of Diabetes Mellitus. ADA recommended reference range Performed By: #### L IPASE, CBC, BNP, HEPATIC, BMP ####[address] Potassium [Moles/Vol] 3.0 mmol/L Low 3.5-5.1 [facility] Comment on above: Performed By: #### L IPASE, CBC, BNP, HEPATIC, BMP ####[address] Sodium [Moles/Vol] 136 mmol/L Normal 136-145 [facility] Comment on above: Performed By: #### L IPASE, CBC, BNP, HEPATIC, BMP ####[address] Urea nitrogen [Mass/Vol] 40 mg/dL High 7-25 [facility] Comment on above: Performed By: #### L IPASE, CBC, BNP, HEPATIC, BMP ####[address] [place] [address] [facility] Basophils Auto (Bld) [#/Vol] Ordered By: Celsa Ratliff on 02-13-2024 Basophils (Bld) [#/Vol] 0.0 10*3/uL 0.0-0.2 [facility] Basophils Auto (Bld) [#/Vol] Ordered By: Andres Orellana on 02-13-2024 Basophils (Bld) [#/Vol] 0.0 10*3/uL 0.0-0.2 [facility] Basophils/100 WBC Auto (Bld) Ordered By: Celsa Ratliff on 02-13-2024 Basophils/100 WBC (Bld) 0.2 % . [facility] Basophils/100 WBC Auto (Bld) Ordered By: Andres Orellana on 02-13-2024 Basophils/100 WBC (Bld) 0.1 % . [facility] Bilirubin Test strip Ql (U)O rdered By: Andres Orellana on 02-13-2024 Bilirubin Ql (U) Negative Negative [facility] Bilirubin.direct [Mass/volum e] in Serum or PlasmaOrdered By: Andres Orellana on 02-13-2024 Bilirubin.direct [Mass/Vol] 0.10 mg/dL 0.03-0.18 [facility] Bilirubin.total [Mass/volume ] in Serum or PlasmaOrdered By: Celsa Ratliff on 02-13-2024 Bilirubin [Mass/Vol] 1.1 mg/dL 0.3-1.0 [facility] Bilirubin.total [Mass/volume ] in Serum or PlasmaOrdered By: Andres Orellana on 02-13-2024 Bilirubin [Mass/Vol] 0.6 mg/dL 0.3-1.0 [facility] Blood Cultureon 02-13-2024 Bacteria identified Cx Nom (Bld) NO GROWTH 5 DAYS PERFORMED BY: [facility] [address] [place] [address] PATHOLOGIST STEREOTYPER XAVIER AGARWAL M.D. Normal [facility] Comment on above: Performed By: #### L DH, CUBLD, PTT, PT ####[place] [id number] Bacteria identified Cx Nom (Bld) NO GROWTH 5 DAYS PERFORMED BY: [facility] [address] [place] [address] PATHOLOGIST STEREOTYPER XAVIER AGARWAL M.D. Normal [facility] Comment on above: Performed By: #### L DH, CUBLD, PTT, PT ####[address] COVID CepheidOrdered By: Kevin Orellana on 02-13-2024 SARS-CoV-2 (COVID-19) Ab IA Ql Negative Negative [facility] Comment on above: This is a duplicate CepRailRunnerid Xpert Xpress CoV-2/Flu/RSV Plus RNA by RT-PCR result to be used for statistical tracking purpose only. SARS-CoV-2 (COVID-19) RNA BRANDY+probe Ql (Unsp spec) [facility] COVID-19 / Flu A/B / RSV PCR on 02-13-2024 SARS-CoV-2 (COVID-19) RNA BRANDY+probe Ql (Unsp spec) Normal [facility] Comment on above: Performed By: #### C EPHEID NEG, COVID19 FLU RSV ####[address] abdomen pelvis wo conon 0 02-13-2024 CT abdomen pelvis wo con Normal [facility] Calcium [Mass/volume] in Ser um or PlasmaOrdered By: Celsa Ratliff on 02-13-2024 Calcium [Mass/Vol] 9.0 mg/dL 8.6-10.[address] [facility] Calcium [Mass/volume] in Ser um or PlasmaOrdered By: Andres Orellana on 02-13-2024 Calcium [Mass/Vol] 9.8 mg/dL 8.6-10.[address] [facility] Carbon dioxide, total [Moles /volume] in Serum or PlasmaOrdered By: Celsa Ratliff on 02-13-2024 CO2 [Moles/Vol] 25.2 mmol/L 21.0-31.0 [facility] Carbon dioxide, total [Moles /volume] in Serum or PlasmaOrdered By: Andres Orellana on 02-13-2024 CO2 [Moles/Vol] 27.7 mmol/L 21.0-31.0 [facility] Cepheid COVID PCR Negativeon 02-13-2024 SARS-CoV-2 (COVID-19) RNA BRANDY+probe Ql (Unsp spec) Negative Normal Negative [facility] Comment on above: Result Comment: This is a duplicate Cepheid Xpert Xpress CoV-2/Flu/RSV Plus RNA by RT-PCR result to be used for statistical tracking purpose only.PERFORMED BY:[place] [address] [place], [place] [phone] MEDICAL DIRECTORXAVIER AGARWAL M.D. Performed By: #### C EPHEID NEG, COVID19 FLU RSV ####[place] [id number] [facility] [place] [address] [place] Chloride [Moles/volume] in S moriah or PlasmaOrdered By: Celsa Ratliff on 02-13-2024 Chloride [Moles/Vol] 89 mmol/L 98-107 [facility] Chloride [Moles/volume] in S moriah or PlasmaOrdered By: Andres Orellana on 02-13-2024 Chloride [Moles/Vol] 93 mmol/L 98-107 [facility] Color Auto (U)Ordered By: Nanette Orellana on 02-13-2024 Color (U) Yellow Yellow [facility] Complete Blood Count Auto Di ffon 02-13-2024 Basophils (Bld) [#/Vol] 0.0 10*3/uL Normal 0.0-0.2 [facility] Comment on above: Result Comment: PERF ORMED BY:[place] [address] [place], [place] [id number] MEDICAL DIRECTORXAVIER AGARWAL M.D. Performed By: #### C BC, CMP ####[place] [address] [place] [address] [place] Basophils/100 WBC (Bld) 0.2 % Normal . [facility] Comment on above: Performed By: #### C BC, CMP ####[address] [address] [facility] Eosinophils (Bld) [#/Vol] 0.0 10*3/uL Normal 0.0-0.45 [facility] Comment on above: Performed By: #### C BC, CMP ####[place] [id number] [facility] Eosinophils/100 WBC (Bld) 0.1 % Normal . [facility] Comment on above: Performed By: #### C BC, CMP ####[place] [id number] [facility] Erythrocyte distribution width (RBC) [Ratio] 13.9 % Normal 11.9-15.3 [facility] Comment on above: Performed By: #### C BC, CMP ####[place] [id number] [facility] Hematocrit (Bld) [Volume fraction] 44.8 % Normal 34.0-46.4 [facility] Comment on above: Performed By: #### C BC, CMP ####[place] [id number] [facility] Hemoglobin (Bld) [Mass/Vol] 15.2 g/dL Normal 11.8-15.4 [facility] Comment on above: Performed By: #### C BC, CMP ####[place] [id number] [facility] Lymphocytes (Bld) [#/Vol] 0.5 10*3/uL Low 1.00-4.8 [facility] Comment on above: Performed By: #### C BC, CMP ####[place] [id number] [facility] Lymphocytes/100 WBC (Bld) 11.6 % Normal . [facility] Comment on above: Performed By: #### C BC, CMP ####[place] [id number] [facility] MCH (RBC) [Entitic mass] 31.6 pg Normal 24.7-34.3 [facility] Comment on above: Performed By: #### C BC, CMP ####[address] MCV (RBC) [Entitic vol] 93.3 fL Normal 80-100 [facility] Comment on above: Performed By: #### C BC, CMP ####[address] Mean Corpuscular HGB Conc 33.9 g/dL Normal 32.0-35.0 [facility] Comment on above: Performed By: #### C BC, CMP ####[address] Monocytes (Bld) [#/Vol] 0.2 10*3/uL Normal 0.0-0.8 [facility] Comment on above: Performed By: #### C BC, CMP ####[address] Monocytes/100 WBC (Bld) 44.14 % High 0.00-20.00 [facility] Comment on above: Result Comment: For adults in ED, MDW > 20.0 may be associated with a higher risk of sepsis during the first 12 hrs of hospital admission Performed By: #### C BC, CMP ####[address] Monocytes/100 WBC (Bld) 4.8 % Normal . [facility] Comment on above: Performed By: #### C BC, CMP ####[address] Neutrophils (Bld) [#/Vol] 3.9 10*3/uL Normal 1.8-7.7 [facility] Comment on above: Performed By: #### C BC, CMP ####[address] Neutrophils/100 WBC (Bld) 83.3 % Normal . [facility] Comment on above: Performed By: #### C BC, CMP ####[address] NRBC% 0.1 /100{WBC} Normal 0-0.5 [facility] Comment on above: Performed By: #### C BC, CMP ####[address] Platelet mean volume (Bld) [Entitic vol] 7.4 fL Normal 6.3-10.7 [facility] Comment on above: Performed By: #### C BC, CMP ####[address] Platelets (Bld) [#/Vol] 304 10*3/uL Normal 150-450 [facility] Comment on above: Performed By: #### C DENISE, CMP ####[address] RBC (Bld) [#/Vol] 4.80 10*6/uL Normal 3.60-5.00 [facility] Comment on above: Performed By: #### C BC, CMP ####[address] WBC (Bld) [#/Vol] 4.7 10*3/uL Normal 3.8-11.6 [facility] Comment on above: Performed By: #### C DENISE, CMP ####[address] Basophils (Bld) [#/Vol] 0.0 10*3/uL Normal 0.0-0.2 [facility] Comment on above: Result Comment: PERF ORMED BY:[address] [place], [place] [phone] MEDICAL DIRECTORXAVIER AGARWAL M.D. Performed By: #### L IPASE, CBC, BNP, HEPATIC, BMP ####[address] Basophils/100 WBC (Bld) 0.1 % Normal . [facility] Comment on above: Performed By: #### L IPASE, CBC, BNP, HEPATIC, BMP ####[place] [id number] [place] Eosinophils (Bld) [#/Vol] 0.0 10*3/uL Normal 0.0-0.45 [facility] Comment on above: Performed By: #### L IPASE, CBC, BNP, HEPATIC, BMP ####[address] Eosinophils/100 WBC (Bld) 0.2 % Normal . [facility] Comment on above: Performed By: #### L IPASE, CBC, BNP, HEPATIC, BMP ####[address] Erythrocyte distribution width (RBC) [Ratio] 13.9 % Normal 11.9-15.3 [facility] Comment on above: Performed By: #### L IPASE, CBC, BNP, HEPATIC, BMP ####[address] Hematocrit (Bld) [Volume fraction] 42.6 % Normal 34.0-46.4 [facility] Comment on above: Performed By: #### L IPASE, CBC, BNP, HEPATIC, BMP ####[address] Hemoglobin (Bld) [Mass/Vol] 14.5 g/dL Normal 11.8-15.4 [facility] Comment on above: Performed By: #### L IPASE, CBC, BNP, HEPATIC, BMP ####[address] Lymphocytes (Bld) [#/Vol] 0.3 10*3/uL Low 1.00-4.8 [facility] Comment on above: Performed By: #### L IPASE, CBC, BNP, HEPATIC, BMP ####[address] Lymphocytes/100 WBC (Bld) 2.2 % Normal . [facility] Comment on above: Performed By: #### L IPASE, CBC, BNP, HEPATIC, BMP ####[address] MCH (RBC) [Entitic mass] 31.5 pg Normal 24.7-34.3 [facility] Comment on above: Performed By: #### L IPASE, CBC, BNP, HEPATIC, BMP ####[address] MCV (RBC) [Entitic vol] 92.7 fL Normal 80-100 [facility] Comment on above: Performed By: #### L IPASE, CBC, BNP, HEPATIC, BMP ####[address] Mean Corpuscular HGB Conc 34.0 g/dL Normal 32.0-35.0 [facility] Comment on above: Performed By: #### L IPASE, CBC, BNP, HEPATIC, BMP ####[address] Monocytes (Bld) [#/Vol] 0.3 10*3/uL Normal 0.0-0.8 [facility] Comment on above: Performed By: #### L IPASE, CBC, BNP, HEPATIC, BMP ####[address] Monocytes/100 WBC (Bld) 29.27 % High 0.00-20.00 [facility] Comment on above: Result Comment: For adults in ED, MDW > 20.0 may be associated with a higher risk of sepsis during the first 12 hrs of hospital admission The predictive value of MDW for identifying sepsis in patients with hematological abnormalities has not been established Performed By: #### L IPASE, CBC, BNP, HEPATIC, BMP ####[address] Monocytes/100 WBC (Bld) 2.3 % Normal . [facility] Comment on above: Performed By: #### L IPASE, CBC, BNP, HEPATIC, BMP ####[address] Neutrophils (Bld) [#/Vol] 14.2 10*3/uL High 1.8-7.7 [facility] Comment on above: Performed By: #### L IPASE, CBC, BNP, HEPATIC, BMP ####[address] Neutrophils/100 WBC (Bld) 95.2 % Normal . [facility] Comment on above: Performed By: #### L IPASE, CBC, BNP, HEPATIC, BMP ####[address] NRBC% 0.1 /100{WBC} Normal 0-0.5 [facility] Comment on above: Performed By: #### L IPASE, CBC, BNP, HEPATIC, BMP ####[address] Platelet mean volume (Bld) [Entitic vol] 7.7 fL Normal 6.3-10.7 [facility] Comment on above: Performed By: #### L IPASE, CBC, BNP, HEPATIC, BMP ####[address] Platelets (Bld) [#/Vol] 377 10*3/uL Normal 150-450 [facility] Comment on above: Performed By: #### L IPASE, CBC, BNP, HEPATIC, BMP ####[address] RBC (Bld) [#/Vol] 4.60 10*6/uL Normal 3.60-5.00 [facility] Comment on above: Performed By: #### L IPASE, CBC, BNP, HEPATIC, BMP ####[address] WBC (Bld) [#/Vol] 14.9 10*3/uL High 3.8-11.6 [facility] Comment on above: Performed By: #### L IPASE, CBC, BNP, HEPATIC, BMP ####[address] Comprehensive Metabolic Pane carlos 02-13-2024 Albumin [Mass/Vol] 3.5 g/dL Normal 3.5-5.7 [facility] Comment on above: Performed By: #### C BC, CMP ####[place] [id number] [facility] Albumin/Globulin [Mass ratio] 1.1 {ratio} Normal [facility] Comment on above: Performed By: #### C BC, CMP ####[address] [address] [facility] ALP [Catalytic activity/Vol] 52 U/L Normal 34-104 [facility] Comment on above: Performed By: #### C BC, CMP ####[place] [id number] [facility] ALT [Catalytic activity/Vol] 25 U/L Normal 7-52 [facility] Comment on above: Performed By: #### C BC, CMP ####[place] [id number] [facility] Anion gap [Moles/Vol] Not performed Normal 6.0-15.0 [facility] Comment on above: Performed By: #### C BC, CMP ####[place] [id number] [facility] AST [Catalytic activity/Vol] Not performed Normal 13-39 [facility] Comment on above: Performed By: #### C BC, CMP ####[place] [id number] [facility] Bilirubin [Mass/Vol] 1.1 mg/dL High 0.3-1.0 [facility] Comment on above: Performed By: #### C BC, CMP ####[place] [id number] [facility] Calcium [Mass/Vol] 9.0 mg/dL Normal 8.6-10.3 [facility] Comment on above: Performed By: #### C BC, CMP ####[place] [address] [facility] Chloride [Moles/Vol] 89 mmol/L Low 98-107 [facility] Comment on above: Performed By: #### C BC, CMP ####[place] [id number] [facility] CO2 [Moles/Vol] 25.2 mmol/L Normal 21.0-31.0 [facility] Comment on above: Performed By: #### C BC, CMP ####[place] [id number] [facility] Creatinine [Mass/Vol] 1.81 mg/dL High 0.60-1.20 [facility] Comment on above: Performed By: #### C BC, CMP ####[place] [address] [facility] Creatinine Clr Calc Pharmacy 41.53 Normal [facility] Comment on above: Result Comment: PERF ORMED BY:[address] [place], [place] [id number] MEDICAL DIRECTORXAVIER AGARWAL M.D. Performed By: #### C BC, CMP ####[place] [id number] [facility] GFR/1.73 sq M.predicted MDRD (S/P/Bld) [Vol rate/Area] 29.923 mL/min/{1.73_m2} Normal [facility] Comment on above: Performed By: #### C DENISE, CMP ####[place] [address] [facility] Globulin (S) [Mass/Vol] 3.3 g/dL Normal [facility] Comment on above: Performed By: #### C BC, CMP ####[place] [address] [facility] Glucose [Mass/Vol] 229 mg/dL Significant change up 70-100 [facility] Comment on above: Result Comment: [place] Glucose Reference Range is dependent on time and content of last meal. Glucose of more than 200 mg/dL in a nonstressed, ambulatory subject supports the diagnosis of Diabetes Mellitus. ADA recommended reference range Performed By: #### C BC, CMP ####[place] [id number] [facility] Potassium Normal 3.5-5.1 [facility] Comment on above: Result Comment: Spec imen hemolyzed, redraw requested Performed By: #### C BC, CMP ####[address] [address] [facility] Protein [Mass/Vol] 6.8 g/dL Normal 6.4-8.9 [facility] Comment on above: Performed By: #### C BC, CMP ####[address] [address] [facility] Sodium [Moles/Vol] 129 mmol/L Significant change down 136-145 [facility] Comment on above: Performed By: #### C BC, CMP ####[place] [id number] [facility] Urea nitrogen [Mass/Vol] 43 mg/dL High 7-25 [facility] Comment on above: Performed By: #### C BC, CMP ####[place] [id number] [facility] Creatinine [Mass/volume] in Serum or PlasmaOrdered By: Celsa Ratliff on 02-13-2024 Creatinine [Mass/Vol] 1.81 mg/dL 0.60-1.20 [facility] Creatinine [Mass/volume] in Serum or PlasmaOrdered By: Andres Orellana on 02-13-2024 Creatinine [Mass/Vol] 1.57 mg/dL 0.60-1.20 [facility] Dipstick and Microscopicon 0 02-13-2024 Appearance (U) Clear Normal Clear [facility] Comment on above: Order Comment: Name Collection Type:: Other Performed By: #### A DDONUAPLUS ####[address] [address] [facility] Bacteria,Urine None Seen Normal None Seen [facility] Comment on above: Order Comment: Name Collection Type:: Other Performed By: #### A DDONUAPLUS ####[place] [address] [facility] Bilirubin,Urine Negative Normal Negative [facility] Comment on above: Order Comment: Name Collection Type:: Other Performed By: #### A DDONUAPLUS ####[address] [address] [place] Color (U) Yellow Normal Yellow [facility] Comment on above: Order Comment: Name Collection Type:: Other Performed By: #### A DDONUAPLUS ####[address] [address] [place] Glucose Ql (U) Normal Normal Normal [facility] Comment on above: Order Comment: Name Collection Type:: Other Performed By: #### A DDONUAPLUS ####[address] [address] [place] Hyaline Casts,Urine None Seen Normal 0-8 [facility] Comment on above: Order Comment: Name Collection Type:: Other Result Comment: PERF ORMED BY:[place] [address] [place], [place] [phone] MEDICAL DIRECTORXAVIER AGARWAL M.D. Performed By: #### A DDONUAPLUS ####[address] [address] [facility] Ketones Ql (U) Negative Normal Negative [facility] Comment on above: Order Comment: Name Collection Type:: Other Performed By: #### A DDONUAPLUS ####[address] [address] [facility] Leukocyte esterase Test strip Ql (U) Negative Normal Negative [facility] Comment on above: Order Comment: Name Collection Type:: Other Performed By: #### A DDONUAPLUS ####[address] [address] [place] Nitrite,Urine Negative Normal Negative [facility] Comment on above: Order Comment: Name Collection Type:: Other Performed By: #### A DDONUAPLUS ####[address] [address] [place] Occult Blood,Urine Negative Normal Negative [facility] Comment on above: Order Comment: Name Collection Type:: Other Result Comment: PERF ORMED BY:[address] [place], [place] [phone] MEDICAL DIRECTORXAVIER AGARWAL M.D. Performed By: #### A DDONUAPLUS ####[place] [id number] [facility] pH (U) 5.0 [pH] Normal 5.0-9.0 [facility] Comment on above: Order Comment: Name Collection Type:: Other Performed By: #### A DDONUAPLUS ####[place] [address] [facility] Protein,Urine Trace High Negative [facility] Comment on above: Order Comment: Name Collection Type:: Other Performed By: #### A DDONUAPLUS ####[place] [id number] [facility] RBC LM.HPF (Urine sed) [#/Area] 0 /[HPF] Normal 0-4 [facility] Comment on above: Order Comment: Name Collection Type:: Other Performed By: #### A DDONUAPLUS ####[place] [id number] [facility] Specificy [place],Urine 1.014 Normal 1.001-1.03 0 [facility] Comment on above: Order Comment: Name Collection Type:: Other Performed By: #### A DDONUAPLUS ####[address] [address] [facility] Squamous Epithelial Cell,Urine 0-1 Normal 0-2 [facility] Comment on above: Order Comment: Name Collection Type:: Other Performed By: #### A DDONUAPLUS ####[place] [id number] [facility] Urobilinogen,Urine Normal Normal Normal [facility] Comment on above: Order Comment: Name Collection Type:: Other Performed By: #### A DDONUAPLUS ####[address] [address] [facility] WBC LM.HPF (Urine sed) [#/Area] 0 /[HPF] Normal 0-4 [facility] Comment on above: Order Comment: Name Collection Type:: Other Performed By: #### A DDONUAPLUS ####[address] [address] [facility] ECG 12 lead ECGon 02-13-2024 ECG 12 lead ECG Normal [facility] Eosinophils Auto (Bld) [#/Vo l]Ordered By: Celsa Ratliff on 02-13-2024 Eosinophils (Bld) [#/Vol] 0.0 10*3/uL 0.0-0.45 [facility] Eosinophils Auto (Bld) [#/Vo l]Ordered By: Andres Orellana on 02-13-2024 Eosinophils (Bld) [#/Vol] 0.0 10*3/uL 0.0-0.45 [facility] Eosinophils/100 WBC Auto (Bl d)Ordered By: Celsa Ratliff on 02-13-2024 Eosinophils/100 WBC (Bld) 0.1 % . [facility] Eosinophils/100 WBC Auto (Bl d)Ordered By: Andres Orellana on 02-13-2024 Eosinophils/100 WBC (Bld) 0.2 % . [facility] Erythrocyte distribution wid th Auto (RBC) [Ratio]Ordered By: Celsa Ratliff on 02-13-2024 Erythrocyte distribution width (RBC) [Ratio] 13.9 % 11.9-15.3 [facility] Erythrocyte distribution wid th Auto (RBC) [Ratio]Ordered By: Andres Orellana on 02-13-2024 Erythrocyte distribution width (RBC) [Ratio] 13.9 % 11.9-15.3 [facility] Globulin Calc (S) [Mass/Vol] Ordered By: Celsa Ratliff on 02-13-2024 Globulin (S) [Mass/Vol] 3.3 g/dL [facility] Globulin Calc (S) [Mass/Vol] Ordered By: Andres Orellana on 02-13-2024 Globulin (S) [Mass/Vol] 3.7 g/dL [facility] Glucose [Mass/volume] in Ser um or PlasmaOrdered By: Celsa Ratliff on 02-13-2024 Glucose [Mass/Vol] 229 mg/dL 70-[address] [facility] Comment on above: Delta: 128 on -0202ADA recommended reference rangeRandom Glucose Reference Range is dependent on time and content of last meal. Glucose of more than 200 mg/dL in a nonstressed, ambulatory subject supports the diagnosis of Diabetes Mellitus. Glucose [Mass/volume] in Ser um or PlasmaOrdered By: Andres Orellana on 02-13-2024 Glucose [Mass/Vol] 128 mg/dL 70-[address] [facility] Comment on above: ADA recommended refe rence rangeRandom Glucose Reference Range is dependent on time and content of last meal. Glucose of more than 200 mg/dL in a nonstressed, ambulatory subject supports the diagnosis of Diabetes Mellitus. Hematocrit Auto (Bld) [Volum e fraction]Ordered By: Celsa Ratliff on 02-13-2024 Hematocrit (Bld) [Volume fraction] 44.8 % 34.0-46.4 [facility] Hematocrit Auto (Bld) [Volum e fraction]Ordered By: Andres Orellana on 02-13-2024 Hematocrit (Bld) [Volume fraction] 42.6 % 34.0-46.4 [facility] Hemoglobin [Mass/volume] in BloodOrdered By: Celsa Ratliff on 02-13-2024 Hemoglobin (Bld) [Mass/Vol] 15.2 g/dL 11.8-15.4 [facility] Hemoglobin [Mass/volume] in BloodOrdered By: Andres Orellana on 02-13-2024 Hemoglobin (Bld) [Mass/Vol] 14.5 g/dL 11.8-15.4 [facility] Hepatic Panelon 02-13-2024 Albumin [Mass/Vol] 4.0 g/dL Normal 3.5-5.7 [facility] Comment on above: Performed By: #### L IPASE, CBC, BNP, HEPATIC, BMP ####[address] Albumin/Globulin [Mass ratio] 1.1 {ratio} Normal [facility] Comment on above: Performed By: #### L IPASE, CBC, BNP, HEPATIC, BMP ####[address] ALP [Catalytic activity/Vol] 61 U/L Normal 34-104 [facility] Comment on above: Performed By: #### L IPASE, CBC, BNP, HEPATIC, BMP ####[address] [address] [place] ALT [Catalytic activity/Vol] 12 U/L Normal 7-52 [facility] Comment on above: Performed By: #### L IPASE, CBC, BNP, HEPATIC, BMP ####[address] AST [Catalytic activity/Vol] 18 U/L Normal 13-39 [facility] Comment on above: Performed By: #### L IPASE, CBC, BNP, HEPATIC, BMP ####[address] Bilirubin [Mass/Vol] 0.6 mg/dL Normal 0.3-1.0 [facility] Comment on above: Performed By: #### L IPASE, CBC, BNP, HEPATIC, BMP ####[address] Bilirubin,Indirect 0.5 mg/dL Normal [facility] Comment on above: Performed By: #### L IPASE, CBC, BNP, HEPATIC, BMP ####[address] Bilirubin.indirect [Mass/Vol] 0.10 mg/dL Normal 0.03-0.18 [facility] Comment on above: Performed By: #### L IPASE, CBC, BNP, HEPATIC, BMP ####[address] Globulin (S) [Mass/Vol] 3.7 g/dL Normal [facility] Comment on above: Performed By: #### L IPASE, CBC, BNP, HEPATIC, BMP ####[address] Protein [Mass/Vol] 7.7 g/dL Normal 6.4-8.9 [facility] Comment on above: Performed By: #### L IPASE, CBC, BNP, HEPATIC, BMP ####[address] INR in Platelet poor plasma by Coagulation assayOrdered By: Vincenzo Ragsdale on 04-16-2024 INR Coag (PPP) [Relative time] 1.6 {INR} [facility] Comment on above: INR Therapeutic Rang e A) Pre- and Peroperative OAT started two weeks before surgery. NOT HIP SURGERY: 1.5 - 2.5 HIP SURGERY: 2 - 3B) Primary and secondary prevention of venous THROMBOSIS: 2 - 3C) Active venous thrombosis, pulmonary embolismand prevention of recurrent venous thrombosis: 2 - 3D) Prevention of arterial thromboembolismincluding patients with mechanical heart valves: 3 - 4.5 Ketones Auto test strip (U) [Mass/Vol]Ordered By: Andres Orellana on 02-13-2024 Ketones (U) [Mass/Vol] Negative Negative [facility] LDH Lactate Dehydrogenaseon 02-13-2024 LDH Lactate Dehydrogenase 247 U/L Normal 140-271 [facility] Comment on above: Result Comment: PERF ORMED BY:[facility] [place] [place], [place] [id number] MEDICAL DIRECTORXAVIER AGARWAL M.D. Performed By: #### L DH, CUBLD, PTT, PT ####[facility] [id number] [place] [address] [facility] Laboratory - UrinalysisOrder ed By: Andres Orellana on 02-13-2024 Hyaline casts LM Ql (Urine sed) None seen [LPF] 0-8 [facility] Lactate dehydrogenase [Enzym atic activity/volume] in Serum or Plasma by Lactate to pyOrdered By: Vincenzo Ragsdale on 02-13-2024 LDH Lactate to pyruvate reaction [Catalytic activity/Vol] 247 U/L 140-271 [facility] Leukocytes [#/volume] correc babak for nucleated erythrocytes in Blood by Automated counOrdered By: Celsa Ratliff on 02-13-2024 WBC corrected for nucl RBC Auto (Bld) [#/Vol] 4.7 10*3/uL 3.8-11.6 [facility] Leukocytes [#/volume] correc babak for nucleated erythrocytes in Blood by Automated counOrdered By: Andres Orellana on 02-13-2024 WBC corrected for nucl RBC Auto (Bld) [#/Vol] 14.9 10*3/uL 3.8-11.6 [facility] Lipaseon 02-13-2024 Lipase [Catalytic activity/Vol] U/L Low 11.0-82.0 [facility] Comment on above: Result Comment: PERF ORMED BY:[facility] [place], [place] [id number] MEDICAL DIRECTORXAVIER AGARWAL M.D. Performed By: #### L IPASE, CBC, BNP, HEPATIC, BMP ####[facility] [place] [address] [place] Lipase [Enzymatic activity/v olume] in Serum or PlasmaOrdered By: Andres Orellana on 02-13-2024 Lipase [Catalytic activity/Vol] U/L 11.0-82.0 [facility] Lymphocytes Auto (Bld) [#/Vo l]Ordered By: Celsa Ratliff on 02-13-2024 Lymphocytes (Bld) [#/Vol] 0.5 10*3/uL 1.00-4.8 [facility] Lymphocytes Auto (Bld) [#/Vo l]Ordered By: Andres Orellana on 02-13-2024 Lymphocytes (Bld) [#/Vol] 0.3 10*3/uL 1.00-4.8 [facility] Lymphocytes/100 WBC Auto (Bl d)Ordered By: Celsa Desouzaore on 02-13-2024 Lymphocytes/100 WBC (Bld) 11.6 % . [facility] Lymphocytes/100 WBC Auto (Bl d)Ordered By: Andres Orellana on 02-13-2024 Lymphocytes/100 WBC (Bld) 2.2 % . [facility] MCH Auto (RBC) [Entitic mass ]Ordered By: Celsa Wilsonimsee on 02-13-2024 MCH (RBC) [Entitic mass] 31.6 pg 24.7-34.3 [facility] MCH Auto (RBC) [Entitic mass ]Ordered By: Andres Orellana on 02-13-2024 MCH (RBC) [Entitic mass] 31.5 pg 24.7-34.3 [facility] MCHC Auto (RBC) [Mass/Vol]Or dered By: Celsa Bullimore on 02-13-2024 MCHC (RBC) [Mass/Vol] 33.9 g/dL 32.0-35.0 [facility] MCHC Auto (RBC) [Mass/Vol]Or dered By: Andres Orellana on 02-13-2024 MCHC (RBC) [Mass/Vol] 34.0 g/dL 32.0-35.0 [facility] MCV Auto (RBC) [Entitic vol] Ordered By: Celsa Ratliff on 02-13-2024 MCV (RBC) [Entitic vol] 93.3 fL 80-100 [facility] MCV Auto (RBC) [Entitic vol] Ordered By: Andres Orellana on 02-13-2024 MCV (RBC) [Entitic vol] 92.7 fL 80-100 [facility] Monocyte distribution width [Entitic volume] in Blood by AutomatedOrdered By: Celsa Ratliff on 02-13-2024 Monocyte distribution width Auto (Bld) [Entitic vol] 44.14 % 0.00-20.00 [facility] Comment on above: For adults in ED, MD W > 20.0 may be associated with a higher risk of sepsis during the first 12 hrs of hospital admission Monocyte distribution width [Entitic volume] in Blood by AutomatedOrdered By: Andres Orellana on 02-13-2024 Monocyte distribution width Auto (Bld) [Entitic vol] 29.27 % 0.00-20.00 [facility] Comment on above: For adults in ED, MD W > 20.0 may be associated with a higher risk of sepsis during the first 12 hrs of hospital admissionThe predictive value of MDW for identifying sepsis in patients with hematological abnormalities has not been established Monocytes Auto (Bld) [#/Vol] Ordered By: Celsa Ratliff on 02-13-2024 Monocytes (Bld) [#/Vol] 0.2 10*3/uL 0.0-0.8 [facility] Monocytes Auto (Bld) [#/Vol] Ordered By: Andres Orellana on 02-13-2024 Monocytes (Bld) [#/Vol] 0.3 10*3/uL 0.0-0.8 [facility] Monocytes/100 WBC Auto (Bld) Ordered By: Celsa Ratliff on 02-13-2024 Monocytes/100 WBC (Bld) 4.8 % . [facility] Monocytes/100 WBC Auto (Bld) Ordered By: Andres Orellana on 02-13-2024 Monocytes/100 WBC (Bld) 2.3 % . [facility] Natriuretic peptide B [Mass/ Vol]Ordered By: Celsa Ratliff on 02-13-2024 Natriuretic peptide B (Bld) [Mass/Vol] 242.0 pg/mL 5-100 [facility] Natriuretic peptide B [Mass/ Vol]Ordered By: Andres Orellana on 02-13-2024 Natriuretic peptide B (Bld) [Mass/Vol] 87.0 pg/mL 5-100 [facility] Neutrophils Auto (Bld) [#/Vo l]Ordered By: Celsa Ratliff on 02-13-2024 Neutrophils (Bld) [#/Vol] 3.9 10*3/uL 1.8-7.7 [facility] Neutrophils Auto (Bld) [#/Vo l]Ordered By: Andres Orellana on 02-13-2024 Neutrophils (Bld) [#/Vol] 14.2 10*3/uL 1.8-7.7 [facility] Neutrophils/100 WBC Auto (Bl d)Ordered By: Celsa Ratliff on 02-13-2024 Neutrophils/100 WBC (Bld) 83.3 % . [facility] Neutrophils/100 WBC Auto (Bl d)Ordered By: Andres Orellana on 02-13-2024 Neutrophils/100 WBC (Bld) 95.2 % . [facility] Nitrite Test strip Ql (U)Ord ered By: Andres Orellana on 02-13-2024 Nitrite Ql (U) Negative Negative [facility] No Panel InformationOrdered By: Celsa Ratliff on 02-13-2024 Estimated GFR (CKD-EPI) 29.923 mL/Min [facility] Creatinine Clearance (Chem 41.53 [facility] No Panel InformationOrdered By: Andres Orellana on 02-13-2024 Estimated GFR (CKD-EPI) 35.493 mL/Min [facility] Creatinine Clearance (Chem 48.39 [facility] Nucleated erythrocytes [Pres ence] in Blood by Automated countOrdered By: Celsa Rtaliff on 02-13-2024 Nucleated RBC Auto Ql (Bld) 0.1 /100{WBC} 0-0.5 [facility] Nucleated erythrocytes [Pres ence] in Blood by Automated countOrdered By: Andres Orellana on 02-13-2024 Nucleated RBC Auto Ql (Bld) 0.1 /100{WBC} 0-0.5 [facility] Partial Thromboplastin Timeo n 02-13-2024 aPTT Coag (Bld) [Time] 29.3 s Normal 25.1-36.5 [facility] Comment on above: Result Comment: A he matocrit value greater than 55% may lead to inaccurate results in coagulation testing. Patients having hematocrit values >55% require a special collection tube for coagulation studies. Please contact the laboratory at [phone] for redraw instructions.PERFORMED BY:[facility] [place], [place] [id number] MEDICAL DIRECTORXAVIER AGARWAL M.D. Performed By: #### L DH, CUBLD, PTT, PT ####[facility] [place] [address] [facility] Platelet mean volume Auto (B ld) [Entitic vol]Ordered By: Celsa Ratliff on 02-13-2024 Platelet mean volume (Bld) [Entitic vol] 7.4 fL 6.3-10.7 [facility] Platelet mean volume Auto (B ld) [Entitic vol]Ordered By: Andres Orellana on 02-13-2024 Platelet mean volume (Bld) [Entitic vol] 7.7 fL 6.3-10.7 [facility] Platelets Auto (Bld) [#/Vol] Ordered By: Celsa Ratliff on 02-13-2024 Platelets (Bld) [#/Vol] 304 10*3/uL 150-450 [facility] Platelets Auto (Bld) [#/Vol] Ordered By: Andres Orellana on 02-13-2024 Platelets (Bld) [#/Vol] 377 10*3/uL 150-450 [facility] Potassium [Moles/volume] in Serum or PlasmaOrdered By: Celsa Ratliff on 02-13-2024 Potassium [Moles/Vol] 3.7 mmol/L 3.5-5.1 [facility] Comment on above: Hemolysis is present at a level that could interfere with the result. Potassium [Moles/volume] in Serum or PlasmaOrdered By: Andres Orellana on 02-13-2024 Potassium [Moles/Vol] 3.0 mmol/L 3.5-5.1 [facility] Protein Auto test strip (U) [Mass/Vol]Ordered By: Andres Orellana on 02-13-2024 Protein (U) [Mass/Vol] Trace mg/dL Negative [facility] Protein [Mass/volume] in Ser um or PlasmaOrdered By: Celsa Ratliff on 02-13-2024 Protein [Mass/Vol] 6.8 g/dL 6.4-8.[address] [facility] Protein [Mass/volume] in Ser um or PlasmaOrdered By: Andres Orellana on 02-13-2024 Protein [Mass/Vol] 7.7 g/dL 6.4-8.[address] [facility] Prothrombin Time INRon 02-12 INR Coag (PPP) [Relative time] 1.6 {INR} Normal [facility] Comment on above: Result Comment: INR Therapeutic Range A) Pre- and Peroperative OAT started [...] valves: 3 - 4.5 Performed By: #### L DH, CUBLD, PTT, PT ####[facility] [id number] [place] [address] [facility] PT Coag (PPP) [Time] 18.3 s High 9.0-12.9 [facility] Comment on above: Result Comment: A he matocrit value greater than 55% may lead to inaccurate results in coagulation testing. Patients having hematocrit values >55% require a special collection tube for coagulation studies. Please contact the laboratory at [phone] for redraw instructions. Performed By: #### L DH, CUBLD, PTT, PT ####[facility] [place] [id number] [facility] Prothrombin time (PT)Ordered By: Vincenzo Ragsdale on 02-13-2024 PT Coag (PPP) [Time] 18.3 s 9.0-12.9 [facility] Comment on above: A hematocrit value g reater than 55% may lead to inaccurate results in coagulation testing. Patients having hematocrit values >55% require a special collection tube for coagulation studies. Please contact the laboratory at [phone] for redraw instructions. RBC Auto (Bld) [#/Vol]Ordere d By: Celsa Ratliff on 02-13-2024 RBC (Bld) [#/Vol] 4.80 10*6/uL 3.60-5.00 [facility] RBC Auto (Bld) [#/Vol]Ordere d By: Andres Orellana on 02-13-2024 RBC (Bld) [#/Vol] 4.60 10*6/uL 3.60-5.00 [facility] Redraw Marychuy 02-13-2024 AST [Catalytic activity/Vol] 45 U/L High 13-39 [facility] Comment on above: Result Comment: PERF ORMED BY:[address] [place], [place] [id number] MEDICAL DIRECTORXAVIER AGARWAL M.D. Performed By: #### R EDRAW K, REDRAW AST ####[id number] [place] [address] [facility] Redraw Potassiumon 4 Potassium [Moles/Vol] 3.7 mmol/L Normal 3.5-5.1 [facility] Comment on above: Result Comment: Hemo lysis is present at a level that could interfere with the result. Performed By: #### R EDRAW K, REDRAW AST ####[facility] [place] [address] [facility] Serum or plasma albumin/glob ulin mass ratioOrdered By: Clesa Raltiff on 02-13-2024 Albumin/Globulin [Mass ratio] 1.1 {ratio} [facility] Serum or plasma albumin/glob ulin mass ratioOrdered By: Andres Orellana on 02-13-2024 Albumin/Globulin [Mass ratio] 1.1 {ratio} [facility] Serum or plasma anion gap de terminationOrdered By: Celsa Ratliff on 02-13-2024 Anion gap [Moles/Vol] TNP [facility] Comment on above: Test not performed Serum or plasma anion gap de terminationOrdered By: Andres Orellana on 02-13-2024 Anion gap [Moles/Vol] 18.3 mmol/L 6.0-15.0 [facility] Serum or plasma non-glucuron idated bilirubin measurement (mass/volume)Ordered By: Andres Orellana on 02-13-2024 Bilirubin.indirect [Mass/Vol] 0.5 mg/dL [facility] Sodium [Moles/volume] in Ser um or PlasmaOrdered By: Celsa Ratliff on 02-13-2024 Sodium [Moles/Vol] 129 mmol/L 136-[address] [facility] Comment on above: Delta: 136 on -0202 Sodium [Moles/volume] in Ser um or PlasmaOrdered By: Andres Orellana on 02-13-2024 Sodium [Moles/Vol] 136 mmol/L 136-[address] [facility] Specific gravity Auto test s trip (U) [Rel density]Ordered By: Andres Orellana on 02-13-2024 Specific gravity (U) [Rel density] 1.014 1.001-1.03 0 [facility] Squamous epithelial cells de tection in urine sediment by light microscopyOrdered By: Andres Orellana on 02-13-2024 Epithelial cells.squamous LM Ql (Urine sed) 0-1 [HPF] 0-2 [facility] Urea nitrogen [Mass/volume] in Serum or PlasmaOrdered By: Celsa Ratliff on 02-13-2024 Urea nitrogen [Mass/Vol] 43 mg/dL 7-25 [facility] Urea nitrogen [Mass/volume] in Serum or PlasmaOrdered By: Andres Orellana on 02-13-2024 Urea nitrogen [Mass/Vol] 40 mg/dL 05-23 [facility] Urine bacteria detection by automated methodOrdered By: Andres Orellana on 02-13-2024 Bacteria Auto Ql (U) None seen None Seen [facility] Urine clarity by refractomet ry automatedOrdered By: Andres Orellana on 02-13-2024 Clarity Refractometry automated (U) Clear Clear [facility] Urine glucose measurement by automated test strip (mass/volume)Ordered By: Andres Orellana on 02-13-2024 Glucose Auto test strip (U) [Mass/Vol] Normal mg/dL Normal [facility] Urine hemoglobin detection b y automated test stripOrdered By: Andres Orellana on 02-13-2024 Hemoglobin Auto test strip Ql (U) Negative Negative [facility] Urine leukocyte esterase det ection by automated test stripOrdered By: Andres Orellana on 02-13-2024 Leukocyte esterase Auto test strip Ql (U) Negative Negative [facility] Urobilinogen Auto test strip (U) [Mass/Vol]Ordered By: Andres Orellana on 02-13-2024 Urobilinogen (U) [Mass/Vol] Normal mg/dL Normal [facility] WBC Auto (Bld) [#/Vol]Ordere d By: Celsa Ratliff on 02-13-2024 WBC (Bld) [#/Vol] 4.7 10*3/uL 3.8-11.[address] [facility] WBC Auto (Bld) [#/Vol]Ordere d By: Andres Orellana on 02-13-2024 WBC (Bld) [#/Vol] 14.9 10*3/uL 3.8-11.6 [facility] XR chest 1V portableon 02-12 XR chest 1V portable Normal [facility] pH Auto test strip (U)Ordere d By: Andres Orellana on 02-13-2024 pH (U) 5.0 [pH] 5.0-9.0 [facility] XR shoulder LT min 2V*on XR shoulder LT min 2V* Normal [facility] US arterial pvr rest Hari US arterial pvr rest LE Normal [facility] US venous duplex LE BIon US venous duplex LE BI Normal [facility] CT head/brain wo conon 09-11 CT head/brain wo con Normal [facility] CT lumbar spine wo conon CT lumbar spine wo con Normal [facility] ECG 12 lead ECGon 09-11-2023 ECG 12 lead ECG Normal [facility] Anisocytosis LM Ql (Bld)Orde red By: Mazin Ortiz on 09-06-2023 Anisocytosis Ql (Bld) Slight [facility] Basic Metabolic Panelon 11-0 Anion gap [Moles/Vol] 9.8 mmol/L Normal 6.0-15.0 [facility] Comment on above: Performed By: #### B MP, MG ####[address] Calcium [Mass/Vol] 8.9 mg/dL Normal 8.6-10.3 [facility] Comment on above: Performed By: #### B MP, MG ####[address] Chloride [Moles/Vol] 94 mmol/L Low 98-107 [facility] Comment on above: Performed By: #### B MP, MG ####[place] [id number] [facility] CO2 [Moles/Vol] 33.8 mmol/L High 21.0-31.0 [facility] Comment on above: Performed By: #### B MP, MG ####[place] [id number] [facility] Creatinine [Mass/Vol] 1.29 mg/dL High 0.60-1.20 [facility] Comment on above: Performed By: #### B MP, MG ####[place] [id number] [place] Creatinine Clr Calc Pharmacy 60.78 Normal [facility] Comment on above: Performed By: #### B MP, MG ####[place] [id number] GFR/1.73 sq M.predicted MDRD (S/P/Bld) [Vol rate/Area] 45.208 mL/min/{1.73_m2} Normal [facility] Comment on above: Performed By: #### B MP, MG ####[address] Glucose [Mass/Vol] 201 mg/dL High 70-100 [facility] Comment on above: Result Comment: [place] Glucose Reference Range is dependent on time and content of last meal. Glucose of more than 200 mg/dL in a nonstressed, ambulatory subject supports the diagnosis of Diabetes Mellitus. ADA recommended reference range Performed By: #### B MP, MG ####[address] Potassium [Moles/Vol] 3.6 mmol/L Normal 3.5-5.1 [facility] Comment on above: Performed By: #### B MP, MG ####[address] Sodium [Moles/Vol] 134 mmol/L Low 136-145 [facility] Comment on above: Performed By: #### B MP, MG ####[address] Urea nitrogen [Mass/Vol] 35 mg/dL High 7-25 [facility] Comment on above: Performed By: #### B MP, MG ####[address] Basophils Auto (Bld) [#/Vol] Ordered By: Mazin Ortiz on 09-06-2023 Basophils (Bld) [#/Vol] 0.1 10*3/uL 0.0-0.2 [facility] Basophils/100 WBC Auto (Bld) Ordered By: Mazin Ortiz on 09-06-2023 Basophils/100 WBC (Bld) 0.9 % . [facility] Calcium [Mass/volume] in Ser um or PlasmaOrdered By: Pavel Charles on 09-06-2023 Calcium [Mass/Vol] 8.9 mg/dL 8.6-10.[address] [facility] Carbon dioxide, total [Moles /volume] in Serum or PlasmaOrdered By: Pavel PollardCharles on 09-06-2023 CO2 [Moles/Vol] 33.8 mmol/L 21.0-31.0 [facility] Chloride [Moles/volume] in S moriah or PlasmaOrdered By: Pavel [place] on 09-06-2023 Chloride [Moles/Vol] 94 mmol/L 98-107 [facility] Creatinine [Mass/volume] in Serum or PlasmaOrdered By: Pavel [place] on 09-06-2023 Creatinine [Mass/Vol] 1.29 mg/dL 0.60-1.20 [facility] Eosinophils Auto (Bld) [#/Vo l]Ordered By: Mazin Ortiz on 09-06-2023 Eosinophils (Bld) [#/Vol] 0.2 10*3/uL 0.0-0.45 [facility] Eosinophils/100 WBC Auto (Bl d)Ordered By: Mazin Ortiz on 09-06-2023 Eosinophils/100 WBC (Bld) 2.6 % . [facility] Erythrocyte distribution wid th Auto (RBC) [Ratio]Ordered By: Mazin Ortiz on 09-06-2023 Erythrocyte distribution width (RBC) [Ratio] 13.7 % 11.9-15.3 [facility] Glucose Glucometer (BldC) [M ass/Vol]Ordered By: Mazin Ortiz on 09-06-2023 Glucose [Mass/Vol] 167 mg/dL [facility] Comment on above: Random Glucose Refer ence Range is dependent on time and content of last meal. Glucose of more than 200 mg/dL in a nonstressed, ambulatory subject supports the diagnosis of Diabetes Mellitus. Glucose Poct Glucometerson 1 11-06-2022 Glucose [Mass/Vol] 167 mg/dL Normal [facility] Comment on above: Result Comment: [place] Glucose Reference Range is dependent on time and content of last meal. Glucose of more than 200 mg/dL in a nonstressed, ambulatory subject supports the diagnosis of Diabetes Mellitus.PERFORMED BY:[place] [address] [place], [place] [id number] MEDICAL DIRECTORXAVIER AGARWAL M.D. Performed By: #### G LULS ####Point of Care testing, Glucose [Mass/Vol] 192 mg/dL Normal [facility] Comment on above: Result Comment: [facility] Glucose Reference Range is dependent on time and content of last meal. Glucose of more than 200 mg/dL in a nonstressed, ambulatory subject supports the diagnosis of Diabetes Mellitus.PERFORMED BY:[place] [address] [place], [place] [phone] MEDICAL DIRECTORXAVIER AGARWAL M.D. Performed By: #### G LULS ####Point of Care testing, Glucose [Mass/Vol] 228 mg/dL Normal [facility] Comment on above: Result Comment: [facility] Glucose Reference Range is dependent on time and content of last meal. Glucose of more than 200 mg/dL in a nonstressed, ambulatory subject supports the diagnosis of Diabetes Mellitus.PERFORMED BY:[place] [address] [place], [place] [phone] MEDICAL DIRECTORXAVIER AGARWAL M.D. Performed By: #### G LULS ####Point of Care testing, Glucose [Mass/volume] in Ser um or PlasmaOrdered By: Pavel Charles on 09-06-2023 Glucose [Mass/Vol] 201 mg/dL 70-[address] [facility] Comment on above: ADA recommended refe rence rangeRandom Glucose Reference Range is dependent on time and content of last meal. Glucose of more than 200 mg/dL in a nonstressed, ambulatory subject supports the diagnosis of Diabetes Mellitus. Hematocrit Auto (Bld) [Volum e fraction]Ordered By: Mazin Ortiz on 09-06-2023 Hematocrit (Bld) [Volume fraction] 35.2 % 34.0-46.4 [facility] Hemoglobin [Mass/volume] in BloodOrdered By: Mazin Ortiz on 09-06-2023 Hemoglobin (Bld) [Mass/Vol] 11.9 g/dL 11.8-15.4 [facility] Leukocytes [#/volume] correc babak for nucleated erythrocytes in Blood by Automated counOrdered By: Mazin Ortiz on 09-06-2023 WBC corrected for nucl RBC Auto (Bld) [#/Vol] 9.2 10*3/uL 3.8-11.6 [facility] Lymphocytes Auto (Bld) [#/Vo l]Ordered By: Mazinlexy Belcherfl on 09-06-2023 Lymphocytes (Bld) [#/Vol] 1.6 10*3/uL 1.00-4.8 [facility] Lymphocytes/100 WBC Auto (Bl d)Ordered By: Mazin [facility] on 09-06-2023 Lymphocytes/100 WBC (Bld) 17.6 % . [facility] MCH Auto (RBC) [Entitic mass ]Ordered By: Mazin Ortiz on 09-06-2023 MCH (RBC) [Entitic mass] 30.7 pg 24.7-34.3 [facility] MCHC Auto (RBC) [Mass/Vol]Or dered By: Mazin Ortiz on 09-06-2023 MCHC (RBC) [Mass/Vol] 33.7 g/dL 32.0-35.0 [facility] MCV Auto (RBC) [Entitic vol] Ordered By: Mazinscott Ortiz on 09-06-2023 MCV (RBC) [Entitic vol] 91.0 fL 80-100 [facility] Magnesiumon 09-06-2023 Magnesium [Mass/Vol] 1.8 mg/dL Low 1.9-2.7 [facility] Comment on above: Result Comment: PERF ORMED BY:[facility] [place], [place] [phone] MEDICAL DIRECTORXAVIER AGARWAL M.D. Performed By: #### B MP, MG ####[facility] [place] [address] [facility] Magnesium [Mass/volume] in S moriah or PlasmaOrdered By: Mazin Ortiz on 09-06-2023 Magnesium [Mass/Vol] 1.8 mg/dL 1.9-2.7 [facility] Microcytes LM Ql (Bld)Ordere d By: Mazin Ortiz on 09-06-2023 Microcytes Ql (Bld) Slight [facility] Monocytes Auto (Bld) [#/Vol] Ordered By: Mazin Ortiz on 09-06-2023 Monocytes (Bld) [#/Vol] 0.7 10*3/uL 0.0-0.8 [facility] Monocytes/100 WBC Auto (Bld) Ordered By: Mazin Ortiz on 09-06-2023 Monocytes/100 WBC (Bld) 8.0 % . [facility] Neutrophils Auto (Bld) [#/Vo l]Ordered By: Mazin Ortiz on 09-06-2023 Neutrophils (Bld) [#/Vol] 6.5 10*3/uL 1.8-7.7 [facility] Neutrophils/100 WBC Auto (Bl d)Ordered By: Mazin Ortiz on 09-06-2023 Neutrophils/100 WBC (Bld) 70.9 % . [facility] No Panel InformationOrdered By: Pavel Charles on 09-06-2023 Estimated GFR (CKD-EPI) 45.208 mL/Min [facility] Creatinine Clearance (Chem 60.78 [facility] Nucleated erythrocytes [Pres ence] in Blood by Automated countOrdered By: Mazin Ortiz on 09-06-2023 Nucleated RBC Auto Ql (Bld) 0.1 /100{WBC} 0-0.5 [facility] Platelet adequacy [Presence] in Blood by Light microscopyOrdered By: Mazin Ortiz on 09-06-2023 Platelets LM Ql (Bld) Normal Normal [facility] Platelet mean volume Auto (B ld) [Entitic vol]Ordered By: Mazin Ortiz on 09-06-2023 Platelet mean volume (Bld) [Entitic vol] 7.2 fL 6.3-10.7 [facility] Platelet morphology finding [Identifier] in BloodOrdered By: Mazin Ortiz on 09-06-2023 Platelet morphology finding Nom (Bld) Normal Normal [facility] Platelets Auto (Bld) [#/Vol] Ordered By: Mazin Ortiz on 09-06-2023 Platelets (Bld) [#/Vol] 353 10*3/uL 150-450 [facility] Poikilocytosis [Presence] in Blood by Light microscopyOrdered By: Mazin Ortiz on 09-06-2023 Poikilocytosis LM Ql (Bld) Slight [facility] Potassium [Moles/volume] in Serum or PlasmaOrdered By: Pavel Charles on 09-06-2023 Potassium [Moles/Vol] 3.6 mmol/L 3.5-5.1 [facility] RBC Auto (Bld) [#/Vol]Ordere d By: Mazin Ortiz on 09-06-2023 RBC (Bld) [#/Vol] 3.87 10*6/uL 3.60-5.00 [facility] RBC morphologyOrdered By: Fr kelli Ortiz on 09-06-2023 RBC morphology finding Nom (Bld) N/A [facility] Scan and CBCon 09-06-2023 Anisocytosis Ql (Bld) Slight Normal [facility] Comment on above: Performed By: #### S CAN CBC ####[place] [address] [place] Basophils (Bld) [#/Vol] 0.1 10*3/uL Normal 0.0-0.2 [facility] Comment on above: Performed By: #### S CAN CBC ####[place] [address] [place] Basophils/100 WBC (Bld) 0.9 % Normal . [facility] Comment on above: Performed By: #### S CAN CBC ####[address] Eosinophils (Bld) [#/Vol] 0.2 10*3/uL Normal 0.0-0.45 [facility] Comment on above: Performed By: #### S CAN CBC ####[address] Eosinophils/100 WBC (Bld) 2.6 % Normal . [facility] Comment on above: Performed By: #### S CAN CBC ####[address] Erythrocyte distribution width (RBC) [Ratio] 13.7 % Normal 11.9-15.3 [facility] Comment on above: Performed By: #### S CAN CBC ####[address] Hematocrit (Bld) [Volume fraction] 35.2 % Normal 34.0-46.4 [facility] Comment on above: Performed By: #### S CAN CBC ####[address] Hemoglobin (Bld) [Mass/Vol] 11.9 g/dL Normal 11.8-15.4 [facility] Comment on above: Performed By: #### S CAN CBC ####[address] Lymphocytes (Bld) [#/Vol] 1.6 10*3/uL Normal 1.00-4.8 [facility] Comment on above: Performed By: #### S CAN CBC ####[address] Lymphocytes/100 WBC (Bld) 17.6 % Normal . [facility] Comment on above: Performed By: #### S CAN CBC ####[address] MCH (RBC) [Entitic mass] 30.7 pg Normal 24.7-34.3 [facility] Comment on above: Performed By: #### S CAN CBC ####[address] MCV (RBC) [Entitic vol] 91.0 fL Normal 80-100 [facility] Comment on above: Performed By: #### S CAN CBC ####[place] [id number] [facility] Mean Corpuscular HGB Conc 33.7 g/dL Normal 32.0-35.0 [facility] Comment on above: Performed By: #### S CAN CBC ####[place] [id number] [facility] Microcytosis Slight Normal [facility] Comment on above: Performed By: #### S CAN CBC ####[place] [id number] [facility] Monocytes (Bld) [#/Vol] 0.7 10*3/uL Normal 0.0-0.8 [facility] Comment on above: Performed By: #### S CAN CBC ####[place] [id number] [facility] Monocytes/100 WBC (Bld) 8.0 % Normal . [facility] Comment on above: Performed By: #### S CAN CBC ####[place] [id number] [facility] Neutrophils (Bld) [#/Vol] 6.5 10*3/uL Normal 1.8-7.7 [facility] Comment on above: Performed By: #### S CAN CBC ####[place] [id number] [facility] Neutrophils/100 WBC (Bld) 70.9 % Normal . [facility] Comment on above: Performed By: #### S CAN CBC ####[place] [id number] [facility] NRBC% 0.1 /100{WBC} Normal 0-0.5 [facility] Comment on above: Performed By: #### S CAN CBC ####[place] [id number] [facility] Platelet Estimate Normal Normal Normal [facility] Comment on above: Performed By: #### S CAN CBC ####[address] Platelet mean volume (Bld) [Entitic vol] 7.2 fL Normal 6.3-10.7 [facility] Comment on above: Performed By: #### S CAN CBC ####[place] [id number] [facility] Platelet Morphology Normal Normal Normal [facility] Comment on above: Result Comment: PERF ORMED BY:[address] [place], [place] [phone] MEDICAL DIRECTORXAVIER AGARWAL M.D. Performed By: #### S CAN CBC ####[place] [id number] [facility] Platelets (Bld) [#/Vol] 353 10*3/uL Normal 150-450 [facility] Comment on above: Performed By: #### S CAN CBC ####[place] [id number] [facility] Poikilocytosis Slight Normal [facility] Comment on above: Performed By: #### S CAN CBC ####[place] [id number] [facility] RBC (Bld) [#/Vol] 3.87 10*6/uL Normal 3.60-5.00 [facility] Comment on above: Performed By: #### S CAN CBC ####[place] [id number] [facility] WBC (Bld) [#/Vol] 9.2 10*3/uL Normal 3.8-11.6 [facility] Comment on above: Performed By: #### S CAN CBC ####[place] [id number] [facility] Serum or plasma anion gap de terminationOrdered By: Pavel Charles on 09-06-2023 Anion gap [Moles/Vol] 9.8 mmol/L 6.0-15.0 [facility] Sodium [Moles/volume] in Ser um or PlasmaOrdered By: Pavel Charles on 09-06-2023 Sodium [Moles/Vol] 134 mmol/L 136-[address] [facility] Urea nitrogen [Mass/volume] in Serum or PlasmaOrdered By: Pavel Charles on 09-06-2023 Urea nitrogen [Mass/Vol] 35 mg/dL 05-23 [facility] WBC Auto (Bld) [#/Vol]Ordere d By: Mazin yin on 09-06-2023 WBC (Bld) [#/Vol] 9.2 10*3/uL 3.8-11.[address] [facility] Basic Metabolic Panelon Anion gap [Moles/Vol] 9.4 mmol/L Normal 6.0-15.0 [facility] Comment on above: Performed By: #### B MP, MG ####[place] [id number] Calcium [Mass/Vol] 8.6 mg/dL Normal 8.6-10.3 [facility] Comment on above: Performed By: #### B MP, MG ####[address] Chloride [Moles/Vol] 93 mmol/L Low 98-107 [facility] Comment on above: Performed By: #### B MP, MG ####[place] [id number] [facility] CO2 [Moles/Vol] 37.2 mmol/L High 21.0-31.0 [facility] Comment on above: Performed By: #### B MP, MG ####[place] [id number] [facility] Creatinine [Mass/Vol] 1.47 mg/dL High 0.60-1.20 [facility] Comment on above: Performed By: #### B MP, MG ####[place] [id number] [place] Creatinine Clr Calc Pharmacy 53.34 Normal [facility] Comment on above: Performed By: #### B MP, MG ####[place] [id number] [facility] GFR/1.73 sq M.predicted MDRD (S/P/Bld) [Vol rate/Area] 38.649 mL/min/{1.73_m2} Normal [facility] Comment on above: Performed By: #### B MP, MG ####[place] [address] [facility] Glucose [Mass/Vol] 103 mg/dL High 70-100 [facility] Comment on above: Result Comment: [place] Glucose Reference Range is dependent on time and content of last meal. Glucose of more than 200 mg/dL in a nonstressed, ambulatory subject supports the diagnosis of Diabetes Mellitus. ADA recommended reference range Performed By: #### B MP, MG ####[place] [id number] [facility] Potassium [Moles/Vol] 3.6 mmol/L Normal 3.5-5.1 [facility] Comment on above: Performed By: #### B MP, MG ####[address] Sodium [Moles/Vol] 136 mmol/L Normal 136-145 [facility] Comment on above: Performed By: #### B MP, MG ####[place] [id number] [facility] Urea nitrogen [Mass/Vol] 39 mg/dL High 7-25 [facility] Comment on above: Performed By: #### B MP, MG ####[place] [id number] [facility] Complete Blood Count Auto Di ffon 09-05-2023 Basophils (Bld) [#/Vol] 0.0 10*3/uL Normal 0.0-0.2 [facility] Comment on above: Result Comment: PERF ORMED BY:[address] [place], [place] [phone] MEDICAL DIRECTORXAVIER AGARWAL M.D. Performed By: #### C BC ####[place] [id number] [facility] Basophils/100 WBC (Bld) 0.3 % Normal . [facility] Comment on above: Performed By: #### C BC ####[address] Eosinophils (Bld) [#/Vol] 0.3 10*3/uL Normal 0.0-0.45 [facility] Comment on above: Performed By: #### C BC ####[address] Eosinophils/100 WBC (Bld) 2.6 % Normal . [facility] Comment on above: Performed By: #### C BC ####[address] Erythrocyte distribution width (RBC) [Ratio] 13.4 % Normal 11.9-15.3 [facility] Comment on above: Performed By: #### C BC ####[address] Hematocrit (Bld) [Volume fraction] 30.3 % Low 34.0-46.4 [facility] Comment on above: Performed By: #### C BC ####[address] Hemoglobin (Bld) [Mass/Vol] 10.5 g/dL Low 11.8-15.4 [facility] Comment on above: Performed By: #### C BC ####[address] Lymphocytes (Bld) [#/Vol] 1.4 10*3/uL Normal 1.00-4.8 [facility] Comment on above: Performed By: #### C BC ####[address] Lymphocytes/100 WBC (Bld) 13.2 % Normal . [facility] Comment on above: Performed By: #### C BC ####[address] MCH (RBC) [Entitic mass] 31.4 pg Normal 24.7-34.3 [facility] Comment on above: Performed By: #### C BC ####[address] MCV (RBC) [Entitic vol] 91.0 fL Normal 80-100 [facility] Comment on above: Performed By: #### C BC ####[address] Mean Corpuscular HGB Conc 34.5 g/dL Normal 32.0-35.0 [facility] Comment on above: Performed By: #### C BC ####[address] Monocytes (Bld) [#/Vol] 1.0 10*3/uL High 0.0-0.8 [facility] Comment on above: Performed By: #### C BC ####[address] Monocytes/100 WBC (Bld) 9.6 % Normal . [facility] Comment on above: Performed By: #### C BC ####[address] Neutrophils (Bld) [#/Vol] 8.0 10*3/uL High 1.8-7.7 [facility] Comment on above: Performed By: #### C BC ####[address] Neutrophils/100 WBC (Bld) 74.3 % Normal . [facility] Comment on above: Performed By: #### C BC ####[address] NRBC% 0.0 /100{WBC} Normal 0-0.5 [facility] Comment on above: Performed By: #### C BC ####[address] Platelet mean volume (Bld) [Entitic vol] 7.5 fL Normal 6.3-10.7 [facility] Comment on above: Performed By: #### C BC ####[address] Platelets (Bld) [#/Vol] 303 10*3/uL Normal 150-450 [facility] Comment on above: Performed By: #### C BC ####[place] [id number] [place] [address] [facility] RBC (Bld) [#/Vol] 3.33 10*6/uL Low 3.60-5.00 [facility] Comment on above: Performed By: #### C BC ####[address] [address] [facility] WBC (Bld) [#/Vol] 10.8 10*3/uL Normal 3.8-11.6 [facility] Comment on above: Performed By: #### C BC ####[address] [address] [facility] Glucose Poct Glucometerson 1 11-05-2022 Glucose [Mass/Vol] 147 mg/dL Normal [facility] Comment on above: Result Comment: [place] Glucose Reference Range is dependent on time and content of last meal. Glucose of more than 200 mg/dL in a nonstressed, ambulatory subject supports the diagnosis of Diabetes Mellitus.PERFORMED BY:[address] [place], [place] [phone] MEDICAL DIRECTORXAVIER AGARWAL M.D. Performed By: #### G LULS ####Point of Care testing, Glucose [Mass/Vol] 158 mg/dL Normal [facility] Comment on above: Result Comment: [place] Glucose Reference Range is dependent on time and content of last meal. Glucose of more than 200 mg/dL in a nonstressed, ambulatory subject supports the diagnosis of Diabetes Mellitus.PERFORMED BY:[address] [place], [place] [phone] MEDICAL DIRECTORXAVIER AGARWAL M.D. Performed By: #### G LULS ####Point of Care testing, Glucose [Mass/Vol] 170 mg/dL Normal [facility] Comment on above: Result Comment: [place] Glucose Reference Range is dependent on time and content of last meal. Glucose of more than 200 mg/dL in a nonstressed, ambulatory subject supports the diagnosis of Diabetes Mellitus.PERFORMED BY:[address], [place] [phone] MEDICAL DIRECTORXAVIER AGARWAL M.D. Performed By: #### G LULS ####Point of Care testing, Glucose [Mass/Vol] 123 mg/dL Normal [facility] Comment on above: Result Comment: [facility] Glucose Reference Range is dependent on time and content of last meal. Glucose of more than 200 mg/dL in a nonstressed, ambulatory subject supports the diagnosis of Diabetes Mellitus.PERFORMED BY:[address] [place], [place] [phone] MEDICAL DIRECTORXAVIER AGARWAL M.D. Performed By: #### G LUROSARIO ####Point of Care testing, Glucose [Mass/Vol] 67 mg/dL Normal [facility] Comment on above: Result Comment: [facility] Glucose Reference Range is dependent on time and content of last meal. Glucose of more than 200 mg/dL in a nonstressed, ambulatory subject supports the diagnosis of Diabetes Mellitus.PERFORMED BY:[place] [address] [place], [place] [phone] MEDICAL DIRECTORXAVIER AGARWAL M.D. Performed By: #### G LUROSARIO ####Point of Care testing, Magnesiumon 09-05-2023 Magnesium [Mass/Vol] 1.7 mg/dL Low 1.9-2.7 [facility] Comment on above: Result Comment: PERF ORMED BY:[address] [place], [place] [phone] MEDICAL DIRECTORXAVIER AGARWAL M.D. Performed By: #### B MP, MG ####[address] [address] [facility] Basic Metabolic Panelon 11-0 Anion gap [Moles/Vol] 12.1 mmol/L Normal 6.0-15.0 [facility] Comment on above: Performed By: #### B MP ####[address] [address] [facility] Calcium [Mass/Vol] 9.1 mg/dL Normal 8.6-10.3 [facility] Comment on above: Performed By: #### B MP ####[place] [id number] [facility] Chloride [Moles/Vol] 93 mmol/L Low 98-107 [facility] Comment on above: Performed By: #### B MP ####[place] [address] [facility] CO2 [Moles/Vol] 34.1 mmol/L High 21.0-31.0 [facility] Comment on above: Performed By: #### B MP ####[place] [id number] [facility] Creatinine [Mass/Vol] 1.11 mg/dL Normal 0.60-1.20 [facility] Comment on above: Performed By: #### B MP ####[place] [id number] [facility] Creatinine Clr Calc Pharmacy 70.60 Normal [facility] Comment on above: Result Comment: PERF ORMED BY:[address] [place], [place] [phone] MEDICAL DIRECTORXAVIER AGARWAL M.D. Performed By: #### B MP ####[address] [address] [facility] GFR/1.73 sq M.predicted MDRD (S/P/Bld) [Vol rate/Area] 54.142 mL/min/{1.73_m2} Normal [facility] Comment on above: Performed By: #### B MP ####[address] [address] [facility] Glucose [Mass/Vol] 118 mg/dL High 70-100 [facility] Comment on above: Result Comment: [place] Glucose Reference Range is dependent on time and content of last meal. Glucose of more than 200 mg/dL in a nonstressed, ambulatory subject supports the diagnosis of Diabetes Mellitus. ADA recommended reference range Performed By: #### B MP ####[place] [id number] [place] Potassium [Moles/Vol] 3.2 mmol/L Low 3.5-5.1 [facility] Comment on above: Performed By: #### B MP ####[address] Sodium [Moles/Vol] 136 mmol/L Normal 136-145 [facility] Comment on above: Performed By: #### B MP ####[address] Urea nitrogen [Mass/Vol] 32 mg/dL High 7-25 [facility] Comment on above: Performed By: #### B MP ####[address] Complete Blood Count Auto Di ffon 09-04-2023 Basophils (Bld) [#/Vol] 0.0 10*3/uL Normal 0.0-0.2 [facility] Comment on above: Result Comment: PERF ORMED BY:[address] [place], [place] [phone] MEDICAL DIRECTORXAVIER AGARWAL M.D. Performed By: #### C BC ####[address] Basophils/100 WBC (Bld) 0.3 % Normal . [facility] Comment on above: Performed By: #### C BC ####[address] Eosinophils (Bld) [#/Vol] 0.1 10*3/uL Normal 0.0-0.45 [facility] Comment on above: Performed By: #### C BC ####[address] Eosinophils/100 WBC (Bld) 0.5 % Normal . [facility] Comment on above: Performed By: #### C BC ####[address] Erythrocyte distribution width (RBC) [Ratio] 13.6 % Normal 11.9-15.3 [facility] Comment on above: Performed By: #### C BC ####[address] Hematocrit (Bld) [Volume fraction] 35.0 % Normal 34.0-46.4 [facility] Comment on above: Performed By: #### C BC ####[address] Hemoglobin (Bld) [Mass/Vol] 11.9 g/dL Normal 11.8-15.4 [facility] Comment on above: Performed By: #### C BC ####[address] Lymphocytes (Bld) [#/Vol] 0.8 10*3/uL Low 1.00-4.8 [facility] Comment on above: Performed By: #### C BC ####[address] Lymphocytes/100 WBC (Bld) 7.5 % Normal . [facility] Comment on above: Performed By: #### C BC ####[address] MCH (RBC) [Entitic mass] 30.8 pg Normal 24.7-34.3 [facility] Comment on above: Performed By: #### C BC ####[place] [id number] [facility] MCV (RBC) [Entitic vol] 90.4 fL Normal 80-100 [facility] Comment on above: Performed By: #### C BC ####[address] Mean Corpuscular HGB Conc 34.1 g/dL Normal 32.0-35.0 [facility] Comment on above: Performed By: #### C BC ####[address] Monocytes (Bld) [#/Vol] 0.7 10*3/uL Normal 0.0-0.8 [facility] Comment on above: Performed By: #### C BC ####[address] Monocytes/100 WBC (Bld) 6.3 % Normal . [facility] Comment on above: Performed By: #### C BC ####[address] Neutrophils (Bld) [#/Vol] 9.2 10*3/uL High 1.8-7.7 [facility] Comment on above: Performed By: #### C BC ####[address] Neutrophils/100 WBC (Bld) 85.4 % Normal . [facility] Comment on above: Performed By: #### C BC ####[address] NRBC% 0.0 /100{WBC} Normal 0-0.5 [facility] Comment on above: Performed By: #### C BC ####[address] Platelet mean volume (Bld) [Entitic vol] 7.3 fL Normal 6.3-10.7 [facility] Comment on above: Performed By: #### C BC ####[address] Platelets (Bld) [#/Vol] 310 10*3/uL Normal 150-450 [facility] Comment on above: Performed By: #### C BC ####[address] RBC (Bld) [#/Vol] 3.87 10*6/uL Normal 3.60-5.00 [facility] Comment on above: Performed By: #### C BC ####[place] [id number] [facility] WBC (Bld) [#/Vol] 10.8 10*3/uL Normal 3.8-11.6 [facility] Comment on above: Performed By: #### C BC ####[address] [address] [facility] Glucose Poct Glucometerson 1 11-04-2022 Commemt1 Glu2: Cleaned Meter Normal [facility] Comment on above: Result Comment: PERF ORMED BY:[place] [address] [address] [place], [place] [phone] MEDICAL DIRECTORXAVIER AGARWAL M.D. Performed By: #### G LULS ####Point of Care testing, Glucose [Mass/Vol] 122 mg/dL Normal [facility] Comment on above: Result Comment: [facility] Glucose Reference Range is dependent on time and content of last meal. Glucose of more than 200 mg/dL in a nonstressed, ambulatory subject supports the diagnosis of Diabetes Mellitus. Performed By: #### G LUROSARIO ####Point of Care testing, No Panel InformationOrdered By: Pavel Charles on 09-04-2023 Bedside Glucose Comment Glu2: cleaned meter [facility] Basic Metabolic Panelon Anion gap [Moles/Vol] 11.8 mmol/L Normal 6.0-15.0 [facility] Comment on above: Performed By: #### B MP ####[address] [address] [facility] Calcium [Mass/Vol] 8.5 mg/dL Low 8.6-10.3 [facility] Comment on above: Performed By: #### B MP ####[place] [id number] [facility] Chloride [Moles/Vol] 92 mmol/L Low 98-107 [facility] Comment on above: Performed By: #### B MP ####[address] [address] [place] CO2 [Moles/Vol] 32.6 mmol/L High 21.0-31.0 [facility] Comment on above: Performed By: #### B MP ####[address] [address] [facility] Creatinine [Mass/Vol] 1.48 mg/dL High 0.60-1.20 [facility] Comment on above: Performed By: #### B MP ####[address] [address] [facility] Creatinine Clr Calc Pharmacy 52.93 Normal [facility] Comment on above: Result Comment: PERF ORMED BY:[address] [place], [place] [phone] MEDICAL LILIYA AGARWAL M.D. Performed By: #### B MP ####[place] [id number] [facility] GFR/1.73 sq M.predicted MDRD (S/P/Bld) [Vol rate/Area] 38.336 mL/min/{1.73_m2} Normal [facility] Comment on above: Performed By: #### B MP ####[address] Glucose [Mass/Vol] 138 mg/dL High 70-100 [facility] Comment on above: Result Comment: [facility] Glucose Reference Range is dependent on time and content of last meal. Glucose of more than 200 mg/dL in a nonstressed, ambulatory subject supports the diagnosis of Diabetes Mellitus. ADA recommended reference range Performed By: #### B MP ####[place] [id number] [facility] Potassium [Moles/Vol] 3.4 mmol/L Low 3.5-5.1 [facility] Comment on above: Performed By: #### B MP ####[place] [address] [facility] Sodium [Moles/Vol] 133 mmol/L Low 136-145 [facility] Comment on above: Performed By: #### B MP ####[place] [address] [facility] Urea nitrogen [Mass/Vol] 39 mg/dL High 7-25 [facility] Comment on above: Performed By: #### B MP ####[place] [address] [facility] Complete Blood Count Auto Di ffon 09-03-2023 Basophils (Bld) [#/Vol] 0.1 10*3/uL Normal 0.0-0.2 [facility] Comment on above: Result Comment: PERF ORMED BY:[place] [address] [place] [place], [place] [phone] MEDICAL DIRECTORXAVIER AGARWAL M.D. Performed By: #### C BC ####[place] [address] [facility] Basophils/100 WBC (Bld) 0.5 % Normal . [facility] Comment on above: Performed By: #### C BC ####[place] [address] [facility] Eosinophils (Bld) [#/Vol] 0.3 10*3/uL Normal 0.0-0.45 [facility] Comment on above: Performed By: #### C BC ####[place] [id number] [facility] Eosinophils/100 WBC (Bld) 3.0 % Normal . [facility] Comment on above: Performed By: #### C BC ####[place] [address] [facility] Erythrocyte distribution width (RBC) [Ratio] 13.4 % Normal 11.9-15.3 [facility] Comment on above: Performed By: #### C BC ####[place] [address] [facility] Hematocrit (Bld) [Volume fraction] 33.2 % Low 34.0-46.4 [facility] Comment on above: Performed By: #### C BC ####[place] [address] [facility] Hemoglobin (Bld) [Mass/Vol] 11.2 g/dL Low 11.8-15.4 [facility] Comment on above: Performed By: #### C BC ####[place] [address] [facility] Lymphocytes (Bld) [#/Vol] 0.9 10*3/uL Low 1.00-4.8 [facility] Comment on above: Performed By: #### C BC ####[address] Lymphocytes/100 WBC (Bld) 8.5 % Normal . [facility] Comment on above: Performed By: #### C BC ####[address] MCH (RBC) [Entitic mass] 30.5 pg Normal 24.7-34.3 [facility] Comment on above: Performed By: #### C BC ####[address] MCV (RBC) [Entitic vol] 90.6 fL Normal 80-100 [facility] Comment on above: Performed By: #### C BC ####[address] Mean Corpuscular HGB Conc 33.7 g/dL Normal 32.0-35.0 [facility] Comment on above: Performed By: #### C BC ####[address] Monocytes (Bld) [#/Vol] 0.7 10*3/uL Normal 0.0-0.8 [facility] Comment on above: Performed By: #### C BC ####[address] Monocytes/100 WBC (Bld) 6.9 % Normal . [facility] Comment on above: Performed By: #### C BC ####[address] Neutrophils (Bld) [#/Vol] 8.4 10*3/uL High 1.8-7.7 [facility] Comment on above: Performed By: #### C BC ####[address] Neutrophils/100 WBC (Bld) 81.1 % Normal . [facility] Comment on above: Performed By: #### C BC ####[address] NRBC% 0.0 /100{WBC} Normal 0-0.5 [facility] Comment on above: Performed By: #### C BC ####[place] [id number] [facility] Platelet mean volume (Bld) [Entitic vol] 7.5 fL Normal 6.3-10.7 [facility] Comment on above: Performed By: #### C BC ####[address] Platelets (Bld) [#/Vol] 255 10*3/uL Normal 150-450 [facility] Comment on above: Performed By: #### C BC ####[address] RBC (Bld) [#/Vol] 3.66 10*6/uL Normal 3.60-5.00 [facility] Comment on above: Performed By: #### C BC ####[place] [id number] [facility] WBC (Bld) [#/Vol] 10.4 10*3/uL Normal 3.8-11.6 [facility] Comment on above: Performed By: #### C BC ####[place] [address] [facility] Glucose Poct Glucometerson 1 11-03-2022 Commemt1 Glu2: Cleaned Meter Normal [facility] Comment on above: Result Comment: PERF ORMED BY:[address] [place], [place] [phone] MEDICAL DIRECTORXAVIER AGARWAL M.D. Performed By: #### G LULS ####Point of Care testing, Glucose [Mass/Vol] 189 mg/dL Normal [facility] Comment on above: Result Comment: [place] Glucose Reference Range is dependent on time and content of last meal. Glucose of more than 200 mg/dL in a nonstressed, ambulatory subject supports the diagnosis of Diabetes Mellitus. Performed By: #### G LULS ####Point of Care testing, Glucose [Mass/Vol] 169 mg/dL Normal [facility] Comment on above: Result Comment: [place] om Glucose Reference Range is dependent on time and content of last meal. Glucose of more than 200 mg/dL in a nonstressed, ambulatory subject supports the diagnosis of Diabetes Mellitus.PERFORMED BY:[place] [address] [place], [place] [phone] MEDICAL DIRECTORXAVIER AGARWAL M.D. Performed By: #### G LULS ####Point of Care testing, Glucose Poct Glucometerson 11-02-2022 Commemt1 Glu2: Cleaned Meter Normal [facility] Comment on above: Result Comment: PERF ORMED BY:[address] [place], [place] [phone] MEDICAL LILIYA AGARWAL M.D. Performed By: #### G LULS ####Point of Care testing, Glucose [Mass/Vol] 138 mg/dL Normal [facility] Comment on above: Result Comment: [place] Glucose Reference Range is dependent on time and content of last meal. Glucose of more than 200 mg/dL in a nonstressed, ambulatory subject supports the diagnosis of Diabetes Mellitus. Performed By: #### G LULS ####Point of Care testing, Commemt1 Glu2: Cleaned Meter Normal [facility] Comment on above: Result Comment: PERF ORMED BY:[address]FFMANJostinDANIELLEMELDR[place], [place] [phone] MEDICAL LILIYA AGARWAL M.D. Performed By: #### G LULS ####Point of Care testing, Glucose [Mass/Vol] 75 mg/dL Normal [facility] Comment on above: Result Comment: [place] Glucose Reference Range is dependent on time and content of last meal. Glucose of more than 200 mg/dL in a nonstressed, ambulatory subject supports the diagnosis of Diabetes Mellitus. Performed By: #### G LULS ####Point of Care testing, Glucose [Mass/Vol] 70 mg/dL Normal [facility] Comment on above: Result Comment: [place] om Glucose Reference Range is dependent on time and content of last meal. Glucose of more than 200 mg/dL in a nonstressed, ambulatory subject supports the diagnosis of Diabetes Mellitus.PERFORMED BY:[address] [place], [place] [phone] MEDICAL DIRECTORXAVIER AGARWAL M.D. Performed By: #### G BENSON ####Point of Care testing, Scan and CBCon 09-02-2023 Anisocytosis Ql (Bld) Slight Normal [facility] Comment on above: Performed By: #### S CAN CBC ####[address] Basophils (Bld) [#/Vol] 0.1 10*3/uL Normal 0.0-0.2 [facility] Comment on above: Performed By: #### S CAN CBC ####[address] Basophils/100 WBC (Bld) 0.4 % Normal . [facility] Comment on above: Performed By: #### S CAN CBC ####[address] Eosinophils (Bld) [#/Vol] 0.4 10*3/uL Normal 0.0-0.45 [facility] Comment on above: Performed By: #### S CAN CBC ####[address] Eosinophils/100 WBC (Bld) 3.0 % Normal . [facility] Comment on above: Performed By: #### S CAN CBC ####[address] Erythrocyte distribution width (RBC) [Ratio] 13.4 % Normal 11.9-15.3 [facility] Comment on above: Performed By: #### S CAN CBC ####[address] Hematocrit (Bld) [Volume fraction] 32.9 % Low 34.0-46.4 [facility] Comment on above: Performed By: #### S CAN CBC ####[place] [address] Hemoglobin (Bld) [Mass/Vol] 11.0 g/dL Low 11.8-15.4 [facility] Comment on above: Performed By: #### S CAN CBC ####[address] Lymphocytes (Bld) [#/Vol] 1.1 10*3/uL Normal 1.00-4.8 [facility] Comment on above: Performed By: #### S CAN CBC ####[address] Lymphocytes/100 WBC (Bld) 8.0 % Normal . [facility] Comment on above: Performed By: #### S CAN CBC ####[address] MCH (RBC) [Entitic mass] 30.3 pg Normal 24.7-34.3 [facility] Comment on above: Performed By: #### S CAN CBC ####[address] MCV (RBC) [Entitic vol] 91.0 fL Normal 80-100 [facility] Comment on above: Performed By: #### S CAN CBC ####[address] Mean Corpuscular HGB Conc 33.3 g/dL Normal 32.0-35.0 [facility] Comment on above: Performed By: #### S CAN CBC ####[address] Microcytosis Slight Normal [facility] Comment on above: Performed By: #### S CAN CBC ####[address] Monocytes (Bld) [#/Vol] 0.6 10*3/uL Normal 0.0-0.8 [facility] Comment on above: Performed By: #### S CAN CBC ####[address] Monocytes/100 WBC (Bld) 4.3 % Normal . [facility] Comment on above: Performed By: #### S CAN CBC ####[address] Neutrophils (Bld) [#/Vol] 11.7 10*3/uL High 1.8-7.7 [facility] Comment on above: Performed By: #### S CAN CBC ####[address] Neutrophils/100 WBC (Bld) 84.3 % Normal . [facility] Comment on above: Performed By: #### S CAN CBC ####[address] NRBC% 0.0 /100{WBC} Normal 0-0.5 [facility] Comment on above: Performed By: #### S CAN CBC ####[address] Platelet Estimate Normal Normal Normal [facility] Comment on above: Performed By: #### S CAN CBC ####[place] [id number] [facility] Platelet mean volume (Bld) [Entitic vol] 7.8 fL Normal 6.3-10.7 [facility] Comment on above: Performed By: #### S CAN CBC ####[place] [id number] [facility] Platelet Morphology Normal Normal Normal [facility] Comment on above: Result Comment: PERF ORMED BY:[address] [place], [place] [phone] MEDICAL LILIYA AGARWAL M.D. Performed By: #### S CAN CBC ####[place] [id number] [place] Platelets (Bld) [#/Vol] 249 10*3/uL Normal 150-450 [facility] Comment on above: Performed By: #### S CAN CBC ####[place] [id number] [place] RBC (Bld) [#/Vol] 3.61 10*6/uL Normal 3.60-5.00 [facility] Comment on above: Performed By: #### S CAN CBC ####[address] WBC (Bld) [#/Vol] 13.9 10*3/uL High 3.8-11.6 [facility] Comment on above: Performed By: #### S CAN CBC ####[address] Complete Blood Count Auto Di ffon 09-01-2023 Basophils (Bld) [#/Vol] 0.1 10*3/uL Normal 0.0-0.2 [facility] Comment on above: Result Comment: PERF ORMED BY:[address] [place], [place] [phone] MEDICAL DIRECTORXAVIER AGARWAL M.D. Performed By: #### C BC ####[address] Basophils/100 WBC (Bld) 0.3 % Normal . [facility] Comment on above: Performed By: #### C BC ####[address] Eosinophils (Bld) [#/Vol] 0.1 10*3/uL Normal 0.0-0.45 [facility] Comment on above: Performed By: #### C BC ####[address] Eosinophils/100 WBC (Bld) 0.7 % Normal . [facility] Comment on above: Performed By: #### C BC ####[address] Erythrocyte distribution width (RBC) [Ratio] 13.7 % Normal 11.9-15.3 [facility] Comment on above: Performed By: #### C BC ####[address] Hematocrit (Bld) [Volume fraction] 33.1 % Low 34.0-46.4 [facility] Comment on above: Performed By: #### C BC ####[address] Hemoglobin (Bld) [Mass/Vol] 11.0 g/dL Low 11.8-15.4 [facility] Comment on above: Performed By: #### C BC ####[address] Lymphocytes (Bld) [#/Vol] 1.0 10*3/uL Normal 1.00-4.8 [facility] Comment on above: Performed By: #### C BC ####[address] Lymphocytes/100 WBC (Bld) 5.5 % Normal . [facility] Comment on above: Performed By: #### C BC ####[address] MCH (RBC) [Entitic mass] 30.3 pg Normal 24.7-34.3 [facility] Comment on above: Performed By: #### C BC ####[address] MCV (RBC) [Entitic vol] 90.9 fL Normal 80-100 [facility] Comment on above: Performed By: #### C BC ####[address] Mean Corpuscular HGB Conc 33.3 g/dL Normal 32.0-35.0 [facility] Comment on above: Performed By: #### C BC ####[address] Monocytes (Bld) [#/Vol] 0.4 10*3/uL Normal 0.0-0.8 [facility] Comment on above: Performed By: #### C BC ####[address] Monocytes/100 WBC (Bld) 2.3 % Normal . [facility] Comment on above: Performed By: #### C BC ####[address] [address] [facility] Neutrophils (Bld) [#/Vol] 16.0 10*3/uL High 1.8-7.7 [facility] Comment on above: Performed By: #### C BC ####[address] [address] [facility] Neutrophils/100 WBC (Bld) 91.2 % Normal . [facility] Comment on above: Performed By: #### C BC ####[address] [address] [facility] NRBC% 0.2 /100{WBC} Normal 0-0.5 [facility] Comment on above: Performed By: #### C BC ####[address] [address] [facility] Platelet mean volume (Bld) [Entitic vol] 7.8 fL Normal 6.3-10.7 [facility] Comment on above: Performed By: #### C BC ####[address] [address] [facility] Platelets (Bld) [#/Vol] 253 10*3/uL Normal 150-450 [facility] Comment on above: Performed By: #### C BC ####[address] [address] [facility] RBC (Bld) [#/Vol] 3.64 10*6/uL Normal 3.60-5.00 [facility] Comment on above: Performed By: #### C BC ####[address] [address] [facility] WBC (Bld) [#/Vol] 17.6 10*3/uL High 3.8-11.6 [facility] Comment on above: Performed By: #### C BC ####[address] [address] [facility] Glucose Poct Glucometerson 11-01-2022 Glucose [Mass/Vol] 232 mg/dL Normal [facility] Comment on above: Result Comment: [facility] Glucose Reference Range is dependent on time and content of last meal. Glucose of more than 200 mg/dL in a nonstressed, ambulatory subject supports the diagnosis of Diabetes Mellitus.PERFORMED BY:[place] [address] [address] [place] [phone] MEDICAL DIRECTORXAVIER AGARWAL M.D. Performed By: #### G LULS ####Point of Care testing, Glucose [Mass/Vol] 116 mg/dL Normal [facility] Comment on above: Result Comment: [facility] Glucose Reference Range is dependent on time and content of last meal. Glucose of more than 200 mg/dL in a nonstressed, ambulatory subject supports the diagnosis of Diabetes Mellitus.PERFORMED BY:[place] [address] [address], [place] [phone] MEDICAL DIRECTORXAVIER AGARWAL M.D. Performed By: #### G LULS ####Point of Care testing, Glucose [Mass/Vol] 124 mg/dL Normal [facility] Comment on above: Result Comment: [facility] Glucose Reference Range is dependent on time and content of last meal. Glucose of more than 200 mg/dL in a nonstressed, ambulatory subject supports the diagnosis of Diabetes Mellitus.PERFORMED BY:[place] [address] [address] [place]ostin[place] [phone] MEDICAL DIRECTORXAVIER AGARWAL M.D. Performed By: #### G LULS ####Point of Care testing, Activated partial thrombopla stin time (aPTT) in platelet poor plasma by coagulation aOrdered By: Andres Orellana on 08-31-2023 aPTT Coag (PPP) [Time] 27.4 s 25.1-36.5 [facility] Comment on above: A hematocrit value g reater than 55% may lead to inaccurate results in coagulation testing. Patients having hematocrit values >55% require a special collection tube for coagulation studies. Please contact the laboratory at [phone] for redraw instructions. Alanine aminotransferase [En zymatic activity/volume] in Serum or PlasmaOrdered By: Medardo Darling on 08-31-2023 ALT [Catalytic activity/Vol] 10 U/L 7-52 [facility] Albumin [Mass/volume] in Ser um or Plasma by Bromocresol green (BCG) dye binding methoOrdered By: Medardo Darling on 08-31-2023 Albumin BCG dye [Mass/Vol] 3.2 g/dL 3.5-5.7 [facility] Alkaline phosphatase [Enzyma tic activity/volume] in Serum or PlasmaOrdered By: Medardo Darling on 08-31-2023 ALP [Catalytic activity/Vol] 48 U/L 34-104 [facility] Aspartate aminotransferase [ Enzymatic activity/volume] in Serum or PlasmaOrdered By: Medardo Darling on 08-31-2023 AST [Catalytic activity/Vol] 13 U/L 13-39 [facility] Automated erythrocytes count in urine sediment (number/area)Ordered By: Andres Orellana on 08-31-2023 RBC Auto (Urine sed) [#/Area] 5-9 [HPF] 0-4 [facility] Automated leukocytes count i n urine sediment (number/area)Ordered By: Andres Orellana on 08-31-2023 WBC Auto (Urine sed) [#/Area] 1-2 [HPF] 0-4 [facility] Bacterial blood cultureOrder ed By: Andres Orellana on 08-31-2023 Bacteria identified Cx Nom (Bld) NO GROWTH 5 DAYS [facility] Basic Metabolic Panelon 11-0 Anion gap [Moles/Vol] 13.3 mmol/L Normal 6.0-15.0 [facility] Comment on above: Performed By: #### B MP, CBC, CUBLD, BILIT, PTT, PT, LACTIC ####[facility] [id number] [place] [address] [facility] Calcium [Mass/Vol] 9.2 mg/dL Normal 8.6-10.3 [facility] Comment on above: Performed By: #### B MP, CBC, CUBLD, BILIT, PTT, PT, LACTIC ####[facility] [id number] [place] [address] [facility] Chloride [Moles/Vol] 91 mmol/L Low 98-107 [facility] Comment on above: Performed By: #### B MP, CBC, CUBLD, BILIT, PTT, PT, LACTIC ####[address] CO2 [Moles/Vol] 32.0 mmol/L High 21.0-31.0 [facility] Comment on above: Performed By: #### B MP, CBC, CUBLD, BILIT, PTT, PT, LACTIC ####[address] Creatinine [Mass/Vol] 1.87 mg/dL High 0.60-1.20 [facility] Comment on above: Performed By: #### B MP, CBC, CUBLD, BILIT, PTT, PT, LACTIC ####[address] Creatinine Clr Calc Pharmacy 41.01 Normal [facility] Comment on above: Performed By: #### B MP, CBC, CUBLD, BILIT, PTT, PT, LACTIC ####[address] GFR/1.73 sq M.predicted MDRD (S/P/Bld) [Vol rate/Area] 28.954 mL/min/{1.73_m2} Normal [facility] Comment on above: Performed By: #### B MP, CBC, CUBLD, BILIT, PTT, PT, LACTIC ####[address] Glucose [Mass/Vol] 280 mg/dL High 70-100 [facility] Comment on above: Result Comment: [place] Glucose Reference Range is dependent on time and content of last meal. Glucose of more than 200 mg/dL in a nonstressed, ambulatory subject supports the diagnosis of Diabetes Mellitus. ADA recommended reference range Performed By: #### B MP, CBC, CUBLD, BILIT, PTT, PT, LACTIC ####[address] Potassium [Moles/Vol] 3.3 mmol/L Low 3.5-5.1 [facility] Comment on above: Performed By: #### B MP, CBC, CUBLD, BILIT, PTT, PT, LACTIC ####[address] Sodium [Moles/Vol] 133 mmol/L Low 136-145 [facility] Comment on above: Performed By: #### B MP, CBC, CUBLD, BILIT, PTT, PT, LACTIC ####[address] Urea nitrogen [Mass/Vol] 41 mg/dL High 7-25 [facility] Comment on above: Performed By: #### B MP, CBC, CUBLD, BILIT, PTT, PT, LACTIC ####[address] Basophils Auto (Bld) [#/Vol] Ordered By: Andres Orellana on 08-31-2023 Basophils (Bld) [#/Vol] 0.0 10*3/uL 0.0-0.2 [facility] Basophils/100 WBC Auto (Bld) Ordered By: Andres Orellana on 08-31-2023 Basophils/100 WBC (Bld) 0.2 % . [facility] Bilirubin Test strip Ql (U)O rdered By: Andres Orellana on 08-31-2023 Bilirubin Ql (U) Negative Negative [facility] Bilirubin,Totalon 08-31-2023 Bilirubin [Mass/Vol] 0.5 mg/dL Normal 0.3-1.0 [facility] Comment on above: Result Comment: PERF ORMED BY:[address] [place], [place] [phone] MEDICAL DIRECTORXAVIER AGARWAL M.D. Performed By: #### B MP, CBC, CUBLD, BILIT, PTT, PT, LACTIC ####[address] Bilirubin.total [Mass/volume ] in Serum or PlasmaOrdered By: Medardo Darling on 08-31-2023 Bilirubin [Mass/Vol] 0.6 mg/dL 0.3-1.0 [facility] Bilirubin.total [Mass/volume ] in Serum or PlasmaOrdered By: Andres Orellana on 08-31-2023 Bilirubin [Mass/Vol] 0.5 mg/dL 0.3-1.0 [facility] Blood Cultureon 08-31-2023 Bacteria identified Cx Nom (Bld) NO GROWTH 5 DAYS PERFORMED BY: [facility] [address] [place] [address] PATHOLOGIST STEREOTYPER XAVIER AGARWAL M.D. Normal [facility] Comment on above: Performed By: #### B MP, CBC, CUBLD, BILIT, PTT, PT, LACTIC ####[place] [id number] Bacteria identified Cx Nom (Bld) Normal [facility] Comment on above: Performed By: #### B MP, CBC, CUBLD, BILIT, PTT, PT, LACTIC ####[place] [id number] COVID CepheidOrdered By: Kevin Orellana on 08-31-2023 SARS-CoV-2 (COVID-19) RNA BRANDY+probe Ql (Unsp spec) [facility] SARS-CoV-2 (COVID-19) Ab IA Ql Negative Negative [facility] Comment on above: This is a duplicate [employer] Xpert Xpress CoV-2/Flu/RSV Plus RNA by RT-PCR result to be used for statistical tracking purpose only. SARS-CoV-2 (COVID-19) RNA BRANDY+probe Ql (Unsp spec) [facility] COVID-19 / Flu A/B / RSV PCR on 08-31-2023 SARS-CoV-2 (COVID-19) RNA BRANDY+probe Ql (Unsp spec) Normal [facility] Comment on above: Performed By: #### C OVID19 FLU RSV, CEPHEID NEG ####[place] [id number] [place] [id number] [facility] CT abdomen pelvis wo conon 1 10-31-2022 CT abdomen pelvis wo con Normal [facility] Calcium [Mass/volume] in Ser um or PlasmaOrdered By: Andres Orellana on 08-31-2023 Calcium [Mass/Vol] 9.2 mg/dL 8.6-10.[address] [facility] Carbon dioxide, total [Moles /volume] in Serum or PlasmaOrdered By: Andres Orellana on 08-31-2023 CO2 [Moles/Vol] 32.0 mmol/L 21.0-31.0 [facility] Cepheid COVID PCR Negativeon 08-31-2023 SARS-CoV-2 (COVID-19) RNA BRANDY+probe Ql (Unsp spec) Negative Normal Negative [facility] Comment on above: Result Comment: This is a duplicate [employer] Xpert Xpress CoV-2/Flu/RSV Plus RNA by RT-PCR result to be used for statistical tracking purpose only.PERFORMED BY:[place] [address] [place], [place] [phone] MEDICAL DIRECTORXAVIER AGARWAL M.D. Performed By: #### C OVID19 FLU RSV, CEPHEID NEG ####[place] [address] [place] [address] [place] Chloride [Moles/volume] in S moriah or PlasmaOrdered By: Andres Orellana on 08-31-2023 Chloride [Moles/Vol] 91 mmol/L 98-107 [facility] Color Auto (U)Ordered By: Nanette paulsonrui Reyna on 08-31-2023 Color (U) Yellow Yellow [facility] Complete Blood Count Auto Di ffon 08-31-2023 Basophils (Bld) [#/Vol] 0.0 10*3/uL Normal 0.0-0.2 [facility] Comment on above: Result Comment: PERF ORMED BY:[place] [address] [place], [place] [phone] MEDICAL DIRECTORXAVIER AGARWAL M.D. Performed By: #### M G, CMP, CBC ####[place] [address] [place] [address] [place] Basophils/100 WBC (Bld) 0.2 % Normal . [facility] Comment on above: Performed By: #### M G, CMP, CBC ####[address] Eosinophils (Bld) [#/Vol] 0.0 10*3/uL Normal 0.0-0.45 [facility] Comment on above: Performed By: #### M G, CMP, CBC ####[place] [id number] [facility] Eosinophils/100 WBC (Bld) 0.0 % Normal . [facility] Comment on above: Performed By: #### M G, CMP, CBC ####[address] Erythrocyte distribution width (RBC) [Ratio] 13.7 % Normal 11.9-15.3 [facility] Comment on above: Performed By: #### M G, CMP, CBC ####[address] Hematocrit (Bld) [Volume fraction] 34.0 % Normal 34.0-46.4 [facility] Comment on above: Performed By: #### M [place], CMP, CBC ####[address] Hemoglobin (Bld) [Mass/Vol] 11.3 g/dL Low 11.8-15.4 [facility] Comment on above: Performed By: #### M G, CMP, CBC ####[address] Lymphocytes (Bld) [#/Vol] 0.4 10*3/uL Low 1.00-4.8 [facility] Comment on above: Performed By: #### M G, CMP, CBC ####[place] [id number] [facility] Lymphocytes/100 WBC (Bld) 2.7 % Normal . [facility] Comment on above: Performed By: #### M G, CMP, CBC ####[address] MCH (RBC) [Entitic mass] 30.4 pg Normal 24.7-34.3 [facility] Comment on above: Performed By: #### M G, CMP, CBC ####[address] MCV (RBC) [Entitic vol] 91.2 fL Normal 80-100 [facility] Comment on above: Performed By: #### M G, CMP, CBC ####[address] Mean Corpuscular HGB Conc 33.3 g/dL Normal 32.0-35.0 [facility] Comment on above: Performed By: #### M G, CMP, CBC ####[address] Monocyte Distribution Width Not performed Normal 0.00-20.00 [facility] Comment on above: Result Comment: Unab le to calculate MDW because the Absolute Monocyte Count is <0.8. Performed By: #### M [place], CMP, CBC ####[address] Monocytes (Bld) [#/Vol] 0.2 10*3/uL Normal 0.0-0.8 [facility] Comment on above: Performed By: #### Ru Null, CMP, CBC ####[address] Monocytes/100 WBC (Bld) 1.0 % Normal . [facility] Comment on above: Performed By: #### [place], CMP, CBC ####[address] Neutrophils (Bld) [#/Vol] 15.0 10*3/uL High 1.8-7.7 [facility] Comment on above: Performed By: #### M G, CMP, CBC ####[address] Neutrophils/100 WBC (Bld) 96.1 % Normal . [facility] Comment on above: Performed By: #### M G, CMP, CBC ####[address] NRBC% 0.0 /100{WBC} Normal 0-0.5 [facility] Comment on above: Performed By: #### M [place], CMP, CBC ####[address] Platelet mean volume (Bld) [Entitic vol] 7.4 fL Normal 6.3-10.7 [facility] Comment on above: Performed By: #### M [place], CMP, CBC ####[address] Platelets (Bld) [#/Vol] 274 10*3/uL Normal 150-450 [facility] Comment on above: Performed By: #### [place], CMP, CBC ####[address] RBC (Bld) [#/Vol] 3.73 10*6/uL Normal 3.60-5.00 [facility] Comment on above: Performed By: #### M [place], CMP, CBC ####[address] WBC (Bld) [#/Vol] 15.6 10*3/uL High 3.8-11.6 [facility] Comment on above: Performed By: #### M [place], CMP, CBC ####[address] Basophils (Bld) [#/Vol] 0.0 10*3/uL Normal 0.0-0.2 [facility] Comment on above: Result Comment: PERF ORMED BY:[address] [place], [place] [phone] MEDICAL DIRECTORXAVIER AGARWAL M.D. Performed By: #### B MP, CBC, CUBLD, BILIT, PTT, PT, LACTIC ####[address] Basophils/100 WBC (Bld) 0.2 % Normal . [facility] Comment on above: Performed By: #### B MP, CBC, CUBLD, BILIT, PTT, PT, LACTIC ####[address] Eosinophils (Bld) [#/Vol] 0.0 10*3/uL Normal 0.0-0.45 [facility] Comment on above: Performed By: #### B MP, CBC, CUBLD, BILIT, PTT, PT, LACTIC ####[address] Eosinophils/100 WBC (Bld) 0.1 % Normal . [facility] Comment on above: Performed By: #### B MP, CBC, CUBLD, BILIT, PTT, PT, LACTIC ####[address] Erythrocyte distribution width (RBC) [Ratio] 13.7 % Normal 11.9-15.3 [facility] Comment on above: Performed By: #### B MP, CBC, CUBLD, BILIT, PTT, PT, LACTIC ####[address] Hematocrit (Bld) [Volume fraction] 39.1 % Normal 34.0-46.4 [facility] Comment on above: Performed By: #### B MP, CBC, CUBLD, BILIT, PTT, PT, LACTIC ####[address] Hemoglobin (Bld) [Mass/Vol] 13.0 g/dL Normal 11.8-15.4 [facility] Comment on above: Performed By: #### B MP, CBC, CUBLD, BILIT, PTT, PT, LACTIC ####[address] Lymphocytes (Bld) [#/Vol] 0.3 10*3/uL Low 1.00-4.8 [facility] Comment on above: Performed By: #### B MP, CBC, CUBLD, BILIT, PTT, PT, LACTIC ####[address] Lymphocytes/100 WBC (Bld) 1.9 % Normal . [facility] Comment on above: Performed By: #### B MP, CBC, CUBLD, BILIT, PTT, PT, LACTIC ####[address] MCH (RBC) [Entitic mass] 30.3 pg Normal 24.7-34.3 [facility] Comment on above: Performed By: #### B MP, CBC, CUBLD, BILIT, PTT, PT, LACTIC ####[address] MCV (RBC) [Entitic vol] 91.0 fL Normal 80-100 [facility] Comment on above: Performed By: #### B MP, CBC, CUBLD, BILIT, PTT, PT, LACTIC ####[address] Mean Corpuscular HGB Conc 33.3 g/dL Normal 32.0-35.0 [facility] Comment on above: Performed By: #### B MP, CBC, CUBLD, BILIT, PTT, PT, LACTIC ####[address] Monocytes (Bld) [#/Vol] 0.3 10*3/uL Normal 0.0-0.8 [facility] Comment on above: Performed By: #### B MP, CBC, CUBLD, BILIT, PTT, PT, LACTIC ####[address] Monocytes/100 WBC (Bld) 25.60 % High 0.00-20.00 [facility] Comment on above: Result Comment: For adults in ED, MDW > 20.0 may be associated with a higher risk of sepsis during the first 12 hrs of hospital admission Performed By: #### B MP, CBC, CUBLD, BILIT, PTT, PT, LACTIC ####[address] Monocytes/100 WBC (Bld) 1.7 % Normal . [facility] Comment on above: Performed By: #### B MP, CBC, CUBLD, BILIT, PTT, PT, LACTIC ####[address] Neutrophils (Bld) [#/Vol] 17.4 10*3/uL High 1.8-7.7 [facility] Comment on above: Performed By: #### B MP, CBC, CUBLD, BILIT, PTT, PT, LACTIC ####[address] Neutrophils/100 WBC (Bld) 96.1 % Normal . [facility] Comment on above: Performed By: #### B MP, CBC, CUBLD, BILIT, PTT, PT, LACTIC ####[address] NRBC% 0.0 /100{WBC} Normal 0-0.5 [facility] Comment on above: Performed By: #### B MP, CBC, CUBLD, BILIT, PTT, PT, LACTIC ####[address] Platelet mean volume (Bld) [Entitic vol] 7.8 fL Normal 6.3-10.7 [facility] Comment on above: Performed By: #### B MP, CBC, CUBLD, BILIT, PTT, PT, LACTIC ####[address] Platelets (Bld) [#/Vol] 338 10*3/uL Normal 150-450 [facility] Comment on above: Performed By: #### B MP, CBC, CUBLD, BILIT, PTT, PT, LACTIC ####[address] RBC (Bld) [#/Vol] 4.30 10*6/uL Normal 3.60-5.00 [facility] Comment on above: Performed By: #### B MP, CBC, CUBLD, BILIT, PTT, PT, LACTIC ####[address] WBC (Bld) [#/Vol] 18.1 10*3/uL High 3.8-11.6 [facility] Comment on above: Performed By: #### B MP, CBC, CUBLD, BILIT, PTT, PT, LACTIC ####[address] Comprehensive Metabolic Pane carlos 08-31-2023 Albumin [Mass/Vol] 3.2 g/dL Low 3.5-5.7 [facility] Comment on above: Performed By: #### [place], CMP, CBC ####[address] Albumin/Globulin [Mass ratio] 1.3 {ratio} Normal [facility] Comment on above: Performed By: #### M [place], CMP, CBC ####[address] ALP [Catalytic activity/Vol] 48 U/L Normal 34-104 [facility] Comment on above: Performed By: #### [place], CMP, CBC ####[address] ALT [Catalytic activity/Vol] 10 U/L Normal 7-52 [facility] Comment on above: Performed By: #### M [place] CMP, CBC ####[address] Anion gap [Moles/Vol] 12.8 mmol/L Normal 6.0-15.0 [facility] Comment on above: Performed By: #### [place], CMP, CBC ####[address] AST [Catalytic activity/Vol] 13 U/L Normal 13-39 [facility] Comment on above: Performed By: #### M G, CMP, CBC ####[address] Bilirubin [Mass/Vol] 0.6 mg/dL Normal 0.3-1.0 [facility] Comment on above: Performed By: #### M G, CMP, CBC ####[address] Calcium [Mass/Vol] 8.2 mg/dL Low 8.6-10.3 [facility] Comment on above: Performed By: #### Ru Null CMP, CBC ####[address] Chloride [Moles/Vol] 91 mmol/L Low 98-107 [facility] Comment on above: Performed By: #### Ru Null CMP, CBC ####[address] CO2 [Moles/Vol] 30.1 mmol/L Normal 21.0-31.0 [facility] Comment on above: Performed By: #### Ru Null CMP, CBC ####[address] Creatinine [Mass/Vol] 1.69 mg/dL High 0.60-1.20 [facility] Comment on above: Performed By: #### Ru Null CMP, CBC ####[address] Creatinine Clr Calc Pharmacy 45.95 Normal [facility] Comment on above: Performed By: #### Ru Null CMP, CBC ####[address] GFR/1.73 sq M.predicted MDRD (S/P/Bld) [Vol rate/Area] 32.693 mL/min/{1.73_m2} Normal [facility] Comment on above: Performed By: #### Ru Null CMP, CBC ####[address] Globulin (S) [Mass/Vol] 2.5 g/dL Normal [facility] Comment on above: Performed By: #### Ru Null CMP, CBC ####[address] Glucose [Mass/Vol] 374 mg/dL High 70-100 [facility] Comment on above: Result Comment: [facility] Glucose Reference Range is dependent on time and content of last meal. Glucose of more than 200 mg/dL in a nonstressed, ambulatory subject supports the diagnosis of Diabetes Mellitus. ADA recommended reference range Performed By: #### M G, CMP, CBC ####[place] [id number] [place] [id number] [facility] Potassium [Moles/Vol] 3.9 mmol/L Normal 3.5-5.1 [facility] Comment on above: Performed By: #### M G, CMP, CBC ####[place] [id number] [place] [id number] [facility] Protein [Mass/Vol] 5.7 g/dL Low 6.4-8.9 [facility] Comment on above: Performed By: #### M G, CMP, CBC ####[address] Sodium [Moles/Vol] 130 mmol/L Low 136-145 [facility] Comment on above: Performed By: #### M G, CMP, CBC ####[place] [id number] [facility] Urea nitrogen [Mass/Vol] 39 mg/dL High 7-25 [facility] Comment on above: Performed By: #### M G, CMP, CBC ####[place] [id number] [facility] Creatinine [Mass/volume] in Serum or PlasmaOrdered By: Andres Orellana on 08-31-2023 Creatinine [Mass/Vol] 1.87 mg/dL 0.60-1.20 [facility] Dipstick and Microscopicon 1 10-31-2022 Appearance (U) Turbid Critically abnormal Clear [facility] Comment on above: Order Comment: Name Collection Type:: Clean-Voided Midstream Performed By: #### A DDONUAPLUS ####[place] [id number] [facility] Bacteria,Urine None Seen Normal None Seen [facility] Comment on above: Order Comment: Name Collection Type:: Clean-Voided Midstream Performed By: #### A DDONUAPLUS ####[place] [id number] [facility] Bilirubin,Urine Negative Normal Negative [facility] Comment on above: Order Comment: Name Collection Type:: Clean-Voided Midstream Performed By: #### A DDONUAPLUS ####[address] [address] [facility] Color (U) Yellow Normal Yellow [facility] Comment on above: Order Comment: Name Collection Type:: Clean-Voided Midstream Performed By: #### A DDONUAPLUS ####[address] [address] [facility] Glucose Ql (U) Normal Normal Normal [facility] Comment on above: Order Comment: Name Collection Type:: Clean-Voided Midstream Performed By: #### A DDONUAPLUS ####[address] [address] [facility] Hyaline Casts,Urine 0-8 Normal 0-8 [facility] Comment on above: Order Comment: Name Collection Type:: Clean-Voided Midstream Performed By: #### A DDONUAPLUS ####[address] [address] [facility] Ketones Ql (U) Negative Normal Negative [facility] Comment on above: Order Comment: Name Collection Type:: Clean-Voided Midstream Performed By: #### A DDONUAPLUS ####[address] [address] [facility] Leukocyte esterase Test strip Ql (U) Negative Normal Negative [facility] Comment on above: Order Comment: Name Collection Type:: Clean-Voided Midstream Performed By: #### A DDONUAPLUS ####[address] [address] [place] Nitrite,Urine Negative Normal Negative [facility] Comment on above: Order Comment: Name Collection Type:: Clean-Voided Midstream Performed By: #### A DDONUAPLUS ####[address] [address] [facility] Occult Blood,Urine Negative Normal Negative [facility] Comment on above: Order Comment: Name Collection Type:: Clean-Voided Midstream Result Comment: PERF ORMED BY:[address] [place] [phone] MEDICAL DIRECTORXAVIER AGARWAL M.D. Performed By: #### A DDONUAPLUS ####[address] [address] [facility] pH (U) 6.0 [pH] Normal 5.0-9.0 [facility] Comment on above: Order Comment: Name Collection Type:: Clean-Voided Midstream Performed By: #### A DDONUAPLUS ####[address] [address] [facility] Protein,Urine Negative Normal Negative [facility] Comment on above: Order Comment: Name Collection Type:: Clean-Voided Midstream Performed By: #### A DDONUAPLUS ####[address] [address] [facility] RBC,Urine 5-9 High 0-4 [facility] Comment on above: Order Comment: Name Collection Type:: Clean-Voided Midstream Performed By: #### A DDONUAPLUS ####[address] [address] [facility] Specificy [place],Urine 1.013 Normal 1.001-1.03 0 [facility] Comment on above: Order Comment: Name Collection Type:: Clean-Voided Midstream Performed By: #### A DDONUAPLUS ####[address] [address] [facility] Squamous Epithelial Cell,Urine 5-9 High 0-2 [facility] Comment on above: Order Comment: Name Collection Type:: Clean-Voided Midstream Performed By: #### A DDONUAPLUS ####[address] [address] [facility] Urobilinogen,Urine Normal Normal Normal [facility] Comment on above: Order Comment: Name Collection Type:: Clean-Voided Midstream Performed By: #### A DDONUAPLUS ####[address] [address] [facility] WBC,Urine 1-2 Normal 0-4 [facility] Comment on above: Order Comment: Name Collection Type:: Clean-Voided Midstream Performed By: #### A DDONUAPLUS ####[address] [address] [facility] Yeast,Urine Rare Critically abnormal None Seen [facility] Comment on above: Order Comment: Name Collection Type:: Clean-Voided Midstream Result Comment: PERF ORMED BY:[place] [address] [place], [place] [phone] MEDICAL DIRECTORXAVIER AGARWAL M.D. Performed By: #### A DDONUAPLUS ####[place] [address] [place] [address] [facility] ECG 12 lead ECGon 08-31-2023 ECG 12 lead ECG Normal [facility] Eosinophils Auto (Bld) [#/Vo l]Ordered By: Andres Orellana on 08-31-2023 Eosinophils (Bld) [#/Vol] 0.0 10*3/uL 0.0-0.45 [facility] Eosinophils/100 WBC Auto (Bl d)Ordered By: Andres Orellana on 08-31-2023 Eosinophils/100 WBC (Bld) 0.1 % . [facility] Erythrocyte distribution wid th Auto (RBC) [Ratio]Ordered By: Andres Orellana on 08-31-2023 Erythrocyte distribution width (RBC) [Ratio] 13.7 % 11.9-15.3 [facility] Globulin Calc (S) [Mass/Vol] Ordered By: Medardo Darling on 08-31-2023 Globulin (S) [Mass/Vol] 2.5 g/dL [facility] Glucose Poct Glucometerson 1 10-31-2022 Glucose [Mass/Vol] 293 mg/dL Normal [facility] Comment on above: Result Comment: [place] Glucose Reference Range is dependent on time and content of last meal. Glucose of more than 200 mg/dL in a nonstressed, ambulatory subject supports the diagnosis of Diabetes Mellitus.PERFORMED BY:[place] [address] [place], [place] [phone] MEDICAL DIRECTORXAVIER AGARWAL M.D. Performed By: #### G LULS ####Point of Care testing, Commemt1 Normal [facility] Comment on above: Result Comment: Glu2 : WILL NOTIFY DR/RN Performed By: #### G LULS ####Point of Care testing, Commemt2 Cleaned Meter Normal [facility] Comment on above: Result Comment: PERF ORMED BY:[facility] [place], [place] [phone] MEDICAL DIRECTORXAVIER AGARWAL M.D. Performed By: #### G LULS ####Point of Care testing, Glucose [Mass/Vol] 476 mg/dL Off scale high [facility] Comment on above: Result Comment: [place] om Glucose Reference Range is dependent on time and content of last meal. Glucose of more than 200 mg/dL in a nonstressed, ambulatory subject supports the diagnosis of Diabetes Mellitus. Performed By: #### G LULS ####Point of Care testing, Glucose [Mass/volume] in Ser um or PlasmaOrdered By: Andres Orellana on 08-31-2023 Glucose [Mass/Vol] 280 mg/dL 70-[address] [facility] Comment on above: ADA recommended refe rence rangeRandom Glucose Reference Range is dependent on time and content of last meal. Glucose of more than 200 mg/dL in a nonstressed, ambulatory subject supports the diagnosis of Diabetes Mellitus. Hematocrit Auto (Bld) [Volum e fraction]Ordered By: Andres Orellana on 08-31-2023 Hematocrit (Bld) [Volume fraction] 39.1 % 34.0-46.4 [facility] Hemoglobin [Mass/volume] in BloodOrdered By: Andres Orellana on 08-31-2023 Hemoglobin (Bld) [Mass/Vol] 13.0 g/dL 11.8-15.4 [facility] INR in Platelet poor plasma by Coagulation assayOrdered By: Andres Orellana on 08-31-2023 INR Coag (PPP) [Relative time] 1.1 {INR} [facility] Comment on above: INR Therapeutic Rang e A) Pre- and Peroperative OAT started two weeks before surgery. NOT HIP SURGERY: 1.5 - 2.5 HIP SURGERY: 2 - 3B) Primary and secondary prevention of venous THROMBOSIS: 2 - 3C) Active venous thrombosis, pulmonary embolismand prevention of recurrent venous thrombosis: 2 - 3D) Prevention of arterial thromboembolismincluding patients with mechanical heart valves: 3 - 4.5 Ketones Auto test strip (U) [Mass/Vol]Ordered By: Andres Orellana on 08-31-2023 Ketones (U) [Mass/Vol] Negative Negative [facility] Laboratory - UrinalysisOrder ed By: Andres Orellana on 08-31-2023 Hyaline casts LM Ql (Urine sed) 0-8 [LPF] 0-8 [facility] Lactate [Moles/volume] in Se rum or PlasmaOrdered By: Andres Orellana on 08-31-2023 Lactate [Moles/Vol] 1.3 mmol/L 0.5-2.2 [facility] Lactic Acidon 08-31-2023 Lactate [Moles/Vol] 1.3 mmol/L Normal 0.5-2.2 [facility] Comment on above: Result Comment: PERF ORMED BY:[address] [place], [place] [phone] MEDICAL DIRECTORXAVIER AGARWAL M.D. Performed By: #### L ACTIC ####[address] [address] [facility] Lactate [Moles/Vol] 2.6 mmol/L Off scale high 0.5-2.2 [facility] Comment on above: Result Comment: Crit ical Result : Called to and read back by: RACHEL WILLARD at: 08/31/2023 02:04:37 by:[id number] BY:[address] [place], [place] [phone] MEDICAL DIRECTORXAVIER AGARWAL M.D. Performed By: #### B MP, CBC, CUBLD, BILIT, PTT, PT, LACTIC ####[address] [address] [facility] Leukocytes [#/volume] correc babak for nucleated erythrocytes in Blood by Automated counOrdered By: Andres Orellana on 08-31-2023 WBC corrected for nucl RBC Auto (Bld) [#/Vol] 18.1 10*3/uL 3.8-11.6 [facility] Lymphocytes Auto (Bld) [#/Vo l]Ordered By: Andres Orellana on 08-31-2023 Lymphocytes (Bld) [#/Vol] 0.3 10*3/uL 1.00-4.8 [facility] Lymphocytes/100 WBC Auto (Bl d)Ordered By: Andres Orellana on 08-31-2023 Lymphocytes/100 WBC (Bld) 1.9 % . [facility] MCH Auto (RBC) [Entitic mass ]Ordered By: Andres Orellana on 08-31-2023 MCH (RBC) [Entitic mass] 30.3 pg 24.7-34.3 [facility] MCHC Auto (RBC) [Mass/Vol]Or dered By: Andres Orellana on 08-31-2023 MCHC (RBC) [Mass/Vol] 33.3 g/dL 32.0-35.0 [facility] MCV Auto (RBC) [Entitic vol] Ordered By: Andres Orellana on 08-31-2023 MCV (RBC) [Entitic vol] 91.0 fL 80-100 [facility] Magnesiumon 08-31-2023 Magnesium [Mass/Vol] 1.4 mg/dL Low 1.9-2.7 [facility] Comment on above: Result Comment: PERF ORMED BY:[facility] [place], [place] [phone] MEDICAL DIRECTORXAVIER AGARWAL M.D. Performed By: #### M G, CMP, CBC ####[facility] [place] [address] [facility] Monocyte distribution width [Entitic volume] in Blood by AutomatedOrdered By: Medardo Darling on 08-31-2023 Monocyte distribution width Auto (Bld) [Entitic vol] Test not performed % 0.00-20.00 [facility] Comment on above: Unable to calculate MDW because the Absolute Monocyte Count is <0.8. Monocyte distribution width [Entitic volume] in Blood by AutomatedOrdered By: Andres Orellana on 08-31-2023 Monocyte distribution width Auto (Bld) [Entitic vol] 25.60 % 0.00-20.00 [facility] Comment on above: For adults in ED, MD W > 20.0 may be associated with a higher risk of sepsis during the first 12 hrs of hospital admission Monocytes Auto (Bld) [#/Vol] Ordered By: Andres Orellana on 08-31-2023 Monocytes (Bld) [#/Vol] 0.3 10*3/uL 0.0-0.8 [facility] Monocytes/100 WBC Auto (Bld) Ordered By: Andres Orellana on 08-31-2023 Monocytes/100 WBC (Bld) 1.7 % . [facility] Neutrophils Auto (Bld) [#/Vo l]Ordered By: Andres Orellana on 08-31-2023 Neutrophils (Bld) [#/Vol] 17.4 10*3/uL 1.8-7.7 [facility] Neutrophils/100 WBC Auto (Bl d)Ordered By: Andres Orellana on 08-31-2023 Neutrophils/100 WBC (Bld) 96.1 % . [facility] Nitrite Test strip Ql (U)Ord ered By: Andres Orellana on 08-31-2023 Nitrite Ql (U) Negative Negative [facility] No Panel InformationOrdered By: Pavel Charles on 08-31-2023 Bedside Glucose #2 Comment Cleaned meter [facility] No Panel InformationOrdered By: Andres Orellana on 08-31-2023 Estimated GFR (CKD-EPI) 28.954 mL/Min [facility] Creatinine Clearance (Chem 41.01 [facility] Nucleated erythrocytes [Pres ence] in Blood by Automated countOrdered By: Andres Orellana on 08-31-2023 Nucleated RBC Auto Ql (Bld) 0.0 /100{WBC} 0-0.5 [facility] Partial Thromboplastin Timeo n 08-31-2023 aPTT Coag (Bld) [Time] 27.4 s Normal 25.1-36.5 [facility] Comment on above: Result Comment: A he matocrit value greater than 55% may lead to inaccurate results in coagulation testing. Patients having hematocrit values >55% require a special collection tube for coagulation studies. Please contact the laboratory at [phone] for redraw instructions.PERFORMED BY:[facility] [place], [place] [phone] MEDICAL DIRECTORXAVIER AGARWAL M.D. Performed By: #### B MP, CBC, CUBLD, BILIT, PTT, PT, LACTIC ####[facility] [id number] [facility] [place] [address] [facility] Platelet mean volume Auto (B ld) [Entitic vol]Ordered By: Andres Orellana on 08-31-2023 Platelet mean volume (Bld) [Entitic vol] 7.8 fL 6.3-10.7 [facility] Platelets Auto (Bld) [#/Vol] Ordered By: Andres Orellana on 08-31-2023 Platelets (Bld) [#/Vol] 338 10*3/uL 150-450 [facility] Potassium [Moles/volume] in Serum or PlasmaOrdered By: Andres Orellana on 08-31-2023 Potassium [Moles/Vol] 3.3 mmol/L 3.5-5.1 [facility] Protein Auto test strip (U) [Mass/Vol]Ordered By: Andres Orellana on 08-31-2023 Protein (U) [Mass/Vol] Negative Negative [facility] Protein [Mass/volume] in Ser um or PlasmaOrdered By: Medardo Darling on 08-31-2023 Protein [Mass/Vol] 5.7 g/dL 6.4-8.[address] [facility] Prothrombin Time INRon 08-31 INR Coag (PPP) [Relative time] 1.1 {INR} Normal [facility] Comment on above: Result Comment: INR Therapeutic Range A) Pre- and Peroperative OAT started [...] valves: 3 - 4.5 Performed By: #### B MP, CBC, CUBLD, BILIT, PTT, PT, LACTIC ####[address] [place] [id number] [facility] PT Coag (PPP) [Time] 13.1 s High 9.0-12.9 [facility] Comment on above: Result Comment: A he matocrit value greater than 55% may lead to inaccurate results in coagulation testing. Patients having hematocrit values >55% require a special collection tube for coagulation studies. Please contact the laboratory at [phone] for redraw instructions. Performed By: #### B MP, CBC, CUBLD, BILIT, PTT, PT, LACTIC ####[address] [place] [place] [id number] [facility] Prothrombin time (PT)Ordered By: Andres Orellana on 08-31-2023 PT Coag (PPP) [Time] 13.1 s 9.0-12.9 [facility] Comment on above: A hematocrit value g reater than 55% may lead to inaccurate results in coagulation testing. Patients having hematocrit values >55% require a special collection tube for coagulation studies. Please contact the laboratory at [phone] for redraw instructions. RBC Auto (Bld) [#/Vol]Ordere d By: Andres Orellana on 08-31-2023 RBC (Bld) [#/Vol] 4.30 10*6/uL 3.60-5.00 [facility] Serum or plasma albumin/glob ulin mass ratioOrdered By: Medardo Darling on 08-31-2023 Albumin/Globulin [Mass ratio] 1.3 {ratio} [facility] Serum or plasma anion gap de terminationOrdered By: Andres Orellana on 08-31-2023 Anion gap [Moles/Vol] 13.3 mmol/L 6.0-15.0 [facility] Sodium [Moles/volume] in Ser um or PlasmaOrdered By: Andres Orellana on 08-31-2023 Sodium [Moles/Vol] 133 mmol/L 136-[address] [facility] Specific gravity Auto test s trip (U) [Rel density]Ordered By: Andres Orellana on 08-31-2023 Specific gravity (U) [Rel density] 1.013 1.001-1.03 0 [facility] Squamous epithelial cells de tection in urine sediment by light microscopyOrdered By: Andres Orellana on 08-31-2023 Epithelial cells.squamous LM Ql (Urine sed) 5-9 [HPF] 0-2 [facility] Urea nitrogen [Mass/volume] in Serum or PlasmaOrdered By: Andres Orellana on 08-31-2023 Urea nitrogen [Mass/Vol] 41 mg/dL 7-25 [facility] Urine bacteria detection by automated methodOrdered By: Andres Orellana on 08-31-2023 Bacteria Auto Ql (U) None seen None Seen [facility] Urine clarity by refractomet ry automatedOrdered By: Andres Orellana on 08-31-2023 Clarity Refractometry automated (U) Turbid Clear [facility] Urine glucose measurement by automated test strip (mass/volume)Ordered By: Andres Orellana on 08-31-2023 Glucose Auto test strip (U) [Mass/Vol] Normal mg/dL Normal [facility] Urine hemoglobin detection b y automated test stripOrdered By: Andres Orellana on 08-31-2023 Hemoglobin Auto test strip Ql (U) Negative Negative [facility] Urine leukocyte esterase det ection by automated test stripOrdered By: Andres Orellana on 08-31-2023 Leukocyte esterase Auto test strip Ql (U) Negative Negative [facility] Urobilinogen Auto test strip (U) [Mass/Vol]Ordered By: Andres Orellana on 08-31-2023 Urobilinogen (U) [Mass/Vol] Normal mg/dL Normal [facility] WBC Auto (Bld) [#/Vol]Ordere d By: Andres Orellana on 08-31-2023 WBC (Bld) [#/Vol] 18.1 10*3/uL 3.8-11.6 [facility] XR chest 1V portableon 08-31 XR chest 1V portable Normal [facility] Yeast detection in urine sed iment by light microscopyOrdered By: Andres Orellana on 08-31-2023 Yeast LM Ql (Urine sed) Rare [HPF] None Seen [facility] pH Auto test strip (U)Ordere d By: Andres Orellana on 08-31-2023 pH (U) 6.0 [pH] 5.0-9.0 [facility] Office Visit (Cardiology)on 06-26-2023 Follow-up visit Diagnoses/Problems Assessed Hospital discharge follow-up (V67.59) (Z09) CKD (chronic kidney disease), stage III (585.3) (N18.30) 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,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) Hypertensive kidney disease with chronic kidney disease, stage 1-4 (403.90) (I12.9) Diastolic dysfunction with chronic heart failure (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.32) (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,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) Hyperlipidemia (272.4) (E78.5) Hypertension (401.9) (I10) Stage 3b chronic kidney disease (585.3) (N18.32) Morbid obesity with BMI of 50.0-59.9, adult (278.01,V85.43) (E66.01,Z68.43) Never a smoker Orders Angina concurrent with and due to arteriosclerosis of coronary artery, Atherosclerosis of [place] coronary artery of [place] heart with angina pectoris Changed: From Aspirin EC 81 MG TBEC TAKE 1 TABLET DAILY To Aspirin 81 MG Oral Tablet Delayed Release TAKE 1 TABLET DAILY Atherosclerosis of [place] coronary artery of [place] heart with angina pectoris, CKD (chronic kidney [...] Lipid Panel; Status:Active - Retrospective Authorization; Requested for:[id number]; Atherosclerosis of [place] coronary artery of [place] heart with angina pectoris, Hyperlipidemia Renew: Atorvastatin Calcium 80 MG Oral Tablet; TAKE 1 TABLET AT BEDTIME Morbid obesity with BMI of 50.0-59.9, adult Healthy Weight Tips; Status:Complete - Retrospective Authorization; Done: 26Jun2023 Some eating tips that can help you lose weight.; Status:Complete - Retrospective Authorization; Done: 26Jun2023 SocHx: Never a smoker Tobacco Use Screening; Status:Complete; Done: 26Jun2023 Patient Instructions Please bring all medicines, vitamins, [...] in 10 months March 2024 Chief Complaint [facility]. History of Present Illness This is a hospital discharge follow-up Accompanied by to the office. Reviewed extensive records from the hospital at [facility] Patient was admitted with acute metabolic [...] sodium 137 potassium 4.5 Assessment: 1. Atherosclerotic [place] vessel coronary artery disease with crescendo/class III [...] the obtuse marginal branch, RCA dominant large, mu (more content not included)... Normal [employer] Tobacco Screening.on 023 Fall risk assessment a) No falls within the last year [facility] 250 DO Work Phone: Tobacco use status [facility] b) No [facility] R2integrated 250 DO Work Phone: Glucose (BldC) [Mass/Vol]on 06-10-2023 Glucose [Moles/Vol] 176 mmol/L Invalid Interpretation Code [facility] Work Phone: Glucose (BldC) [Mass/Vol]on 06-09-2023 Glucose [Moles/Vol] 312 mmol/L Invalid Interpretation Code [facility] Work Phone: Glucose [Moles/Vol] 318 mmol/L Invalid Interpretation Code [facility] Work Phone: Glucose [Moles/Vol] 157 mmol/L Invalid Interpretation Code [facility] Work Phone: Glucose (BldC) [Mass/Vol]on 06-08-2023 Glucose [Moles/Vol] 147 mmol/L Invalid Interpretation Code [facility] Work Phone: Glucose [Moles/Vol] 149 mmol/L Invalid Interpretation Code [facility] Work Phone: Glucose [Moles/Vol] 310 mmol/L Invalid Interpretation Code [facility] Work Phone: Glucose (BldC) [Mass/Vol]on 06-07-2023 Glucose [Moles/Vol] 130 mmol/L Invalid Interpretation Code [facility] Work Phone: [phone] Glucose [Moles/Vol] 287 mmol/L Invalid Interpretation Code [facility] Work Phone: [phone] Glucose [Moles/Vol] 180 mmol/L Invalid Interpretation Code [facility] Work Phone: [phone] Albumin Levelon 06-06-2023 Albumin [Mass/Vol] 3.2 g/dL Low 3.5-5.7 [facility] Comment on above: Order Comment: Diagn osis: N17.9, I50.32, Comment: [id number] RM102, , 06/01/23 Performed By: #### D IFF CBC, [id number], BMP, ALB ####[address] [place] [address] [facility] Albumin [Mass/volume] in Ser um or Plasma by Bromocresol green (BCG) dye binding methoOrdered By: Aleksandr Pascual on 06-06-2023 Albumin BCG dye [Mass/Vol] 3.2 g/dL 3.5-5.7 [facility] Anisocytosis LM Ql (Bld)Orde red By: Aleksandr Pascual on 06-06-2023 Anisocytosis Ql (Bld) Slight Fir [facility] Band form neutrophils/100 WB C Manual cnt (Bld)Ordered By: Aleksandr Pascual on 06-06-2023 Band form neutrophils/100 WBC (Bld) 4 % 0-5 [facility] Basic Metabolic Panelon Anion gap [Moles/Vol] 11.6 mmol/L Normal 6.0-15.0 [facility] Comment on above: Order Comment: Diagn osis: N17.9, I50.32, Comment: [id number] RM102, , 06/01/23 Performed By: #### D IFF CBC, [id number], BMP, ALB ####[address] [place] [address] [facility] Calcium [Mass/Vol] 8.2 mg/dL Low 8.6-10.3 [facility] Comment on above: Order Comment: Diagn osis: N17.9, I50.32, Comment: [id number], [facility], [facility], , 06/01/23 Performed By: #### D IFF CBC, [id number], BMP, ALB ####[address] [address] [facility] Chloride [Moles/Vol] 98 mmol/L Normal 98-107 [facility] Comment on above: Order Comment: Diagn osis: N17.9, I50.32, Comment: [id number], [facility]ONTZ, [facility], , 06/01/23 Performed By: #### D IFF CBC, [id number], BMP, ALB ####[address] [address] [facility] CO2 [Moles/Vol] 31.9 mmol/L High 21.0-31.0 [facility] Comment on above: Order Comment: Diagn osis: N17.9, I50., Comment: [id number], [facility]GLIORZ, [facility], , 06/01/23 Performed By: #### D IFF CBC, [id number], BMP, ALB ####[place] [id number] [facility] Creatinine [Mass/Vol] 1.37 mg/dL High 0.60-1.20 [facility] Comment on above: Order Comment: Diagn osis: N17.9, I50., Comment: [id number], OGLIORZ, [facility], , 06/01/23 Performed By: #### D IFF CBC, [id number], BMP, ALB ####[address] [address] [facility] GFR/1.73 sq M.predicted MDRD (S/P/Bld) [Vol rate/Area] 42.059 mL/min/{1.73_m2} Normal [facility] Comment on above: Order Comment: Diagn osis: N17.9, I50.32, Comment: [id number], OGONTZ, RM102, , 06/01/23 Performed By: #### D IFF CBC, [id number], BMP, ALB ####[place] [address] [facility] Glucose [Mass/Vol] 286 mg/dL High 70-100 [facility] Comment on above: Order Comment: Diagn osis: N17.9, I50.32, Comment: [id number], [facility]GLIORZ, [facility], , 06/01/23 Result Comment: [place] Glucose Reference Range is dependent on time and content of last meal. Glucose of more than 200 mg/dL in a nonstressed, ambulatory subject supports the diagnosis of Diabetes Mellitus. ADA recommended reference range Performed By: #### D IFF CBC, [id number], BMP, ALB ####[place] [id number] [facility] Potassium [Moles/Vol] 4.5 mmol/L Normal 3.5-5.1 [facility] Comment on above: Order Comment: Diagn osis: N17.9, I50.32, Comment: [id number], OGKATE, RM102, , 06/01/23 Performed By: #### D IFF CBC, [id number], BMP, ALB ####[place] [id number] [facility] Sodium [Moles/Vol] 137 mmol/L Normal 136-145 [facility] Comment on above: Order Comment: Diagn osis: N17.9, I50.32, Comment: [id number], OGKATE, RM102, , 06/01/23 Performed By: #### D IFF CBC, [id number], BMP, ALB ####[address] [address] [facility] Urea nitrogen [Mass/Vol] 20 mg/dL Normal 7-25 [facility] Comment on above: Order Comment: Diagn osis: N17.9, I50.32, Comment: [id number], OGLIORZ, RM102, , 06/01/23 Performed By: #### D IFF CBC, [id number], BMP, ALB ####[facility] [id number] [place] [id number] [facility] Basophils Auto (Bld) [#/Vol] Ordered By: Aleksandr Pascual on 06-06-2023 Basophils (Bld) [#/Vol] N/A [facility] Basophils/100 WBC Auto (Bld) Ordered By: Aleksandr Pascual on 06-06-2023 Basophils/100 WBC (Bld) N/A [facility] Basophils/100 WBC Manual cnt (Bld)Ordered By: Aleksandr Pascual on 06-06-2023 Basophils/100 WBC (Bld) 0 % 0-2 [facility] Calcium [Mass/volume] in Ser um or PlasmaOrdered By: Aleksandr Pascual on 06-06-2023 Calcium [Mass/Vol] 8.2 mg/dL 8.6-10.[address] [facility] Carbon dioxide, total [Moles /volume] in Serum or PlasmaOrdered By: Aleksandr Pascual on 06-06-2023 CO2 [Moles/Vol] 31.9 mmol/L 21.0-31.0 [facility] Chloride [Moles/volume] in S moriah or PlasmaOrdered By: Aleksandr Pascual on 06-06-2023 Chloride [Moles/Vol] 98 mmol/L 98-107 [facility] Creatinine [Mass/volume] in Serum or PlasmaOrdered By: Aleksandr Pascual on 06-06-2023 Creatinine [Mass/Vol] 1.37 mg/dL 0.60-1.20 [facility] Diff and CBCon 06-06-2023 Anisocytosis Ql (Bld) Slight Normal [facility] Comment on above: Order Comment: Diagn osis: N17.9, I50.32, E11.22 Comment: [id number], FELICIANO, ALISHA, , 06/01/23 Performed By: #### D IFF CBC, [id number], BMP, ALB ####[facility] [id number] [place] [address] [facility] Band form neutrophils/100 WBC (Bld) 4 % Normal 0-5 [facility] Comment on above: Order Comment: Diagn osis: N17.9, I50.32, E11.22 Comment: [id number], OGONTZ, RM102, , 06/01/23 Performed By: #### D IFF CBC, [id number], BMP, ALB ####[place] [id number] [facility] Basophils/100 WBC (Bld) 0 % Normal 0-2 [facility] Comment on above: Order Comment: Diagn osis: N17.9, I50.32, Comment: [id number], OGONTZ, RM102, , 06/01/23 Performed By: #### D IFF CBC, [id number], BMP, ALB ####[place] [address] [facility] Eosinophils/100 WBC (Bld) 2 % Normal 1-3 [facility] Comment on above: Order Comment: Diagn osis: N17.9, I50.32, Comment: [id number], OGONTZ, RM102, , 06/01/23 Performed By: #### D IFF CBC, [id number], BMP, ALB ####[address] Erythrocyte distribution width (RBC) [Ratio] 13.8 % Normal 11.9-15.3 [facility] Comment on above: Order Comment: Diagn osis: N17.9, I50.32, Comment: [id number], OGONTZ, RM102, , 06/01/23 Performed By: #### D IFF CBC, [id number], BMP, ALB ####[place] [address] [facility] Hematocrit (Bld) [Volume fraction] 32.3 % Low 34.0-46.4 [facility] Comment on above: Order Comment: Diagn osis: N17.9, I50.32, Comment: [id number], OGONTZ, RM102, , 06/01/23 Performed By: #### D IFF CBC, [id number], BMP, ALB ####[place] [address] [facility] Hemoglobin (Bld) [Mass/Vol] 10.7 g/dL Low 11.8-15.4 [facility] Comment on above: Order Comment: Diagn osis: N17.9, I50.32, Comment: [id number], OGONTZ, RM102, , 06/01/23 Performed By: #### D IFF CBC, [id number], BMP, ALB ####[address] Lymphocytes/100 WBC (Bld) 15 % Low 18-42 [facility] Comment on above: Order Comment: Diagn osis: N17.9, I50.32, Comment: [id number], OGONTZ, RM102, , 06/01/23 Performed By: #### D IFF CBC, [id number], BMP, ALB ####[address] MCH (RBC) [Entitic mass] 30.9 pg Normal 24.7-34.3 [facility] Comment on above: Order Comment: Diagn osis: N17.9, I50.32, Comment: [id number], OGONTZ, RM102, , 06/01/23 Performed By: #### D IFF CBC, [id number], BMP, ALB ####[address] MCV (RBC) [Entitic vol] 92.7 fL Normal 80-100 [facility] Comment on above: Order Comment: Diagn osis: N17.9, I50.32, Comment: [id number], OGONTZ, RM102, , 06/01/23 Performed By: #### D IFF CBC, [id number], BMP, ALB ####[place] [id number] [facility] Mean Corpuscular HGB Conc 33.3 g/dL Normal 32.0-35.0 [facility] Comment on above: Order Comment: Diagn osis: N17.9, I50.32, Comment: [id number], OGONTZ, RM102, , 06/01/23 Performed By: #### D IFF CBC, [id number], BMP, ALB ####[address] [address] [facility] Metamyelocytes 2 % High 0-0 [facility] Comment on above: Order Comment: Diagn osis: N17.9, I50.32, Comment: [id number], OGONTZ, RM102, , 06/01/23 Performed By: #### D IFF CBC, [id number], BMP, ALB ####[place] [id number] [facility] Monocytes/100 WBC (Bld) 8 % Normal 2-11 [facility] Comment on above: Order Comment: Diagn osis: N17.9, I50.32, Comment: [id number], OGONTZ, RM102, , 06/01/23 Performed By: #### D IFF CBC, [id number], BMP, ALB ####[address] Platelet Estimate Normal Normal Normal [facility] Comment on above: Order Comment: Diagn osis: N17.9, I50.32, Comment: [id number], OGONTZ, RM102, , 06/01/23 Performed By: #### D IFF CBC, [id number], BMP, ALB ####[place] [id number] [facility] Platelet mean volume (Bld) [Entitic vol] 7.0 fL Normal 6.3-10.7 [facility] Comment on above: Order Comment: Diagn osis: N17.9, I50.32, Comment: [id number], OGONTZ, RM102, , 06/01/23 Result Comment: PERF ORMED BY:[address] [place], [place] [phone] MEDICAL DIRECTORXAVIER AGARWAL M.D. Performed By: #### D IFF CBC, [id number], BMP, ALB ####[place] [id number] [facility] Platelet Morphology Normal Normal Normal [facility] Comment on above: Order Comment: Diagn osis: N17.9, I50.32, Comment: [id number], OGLIORZ, RM102, , 06/01/23 Result Comment: PERF ORMED BY:[place] [address] [place] [phone] MEDICAL DIRECTORXAVIER AGARWAL M.D. Performed By: #### D IFF CBC, [id number], BMP, ALB ####[address] [address] [facility] Platelets (Bld) [#/Vol] 431 10*3/uL Normal 150-450 [facility] Comment on above: Order Comment: Diagn osis: N17.9, I50.32, Comment: [id number], OGKATE, RM102, , 06/01/23 Performed By: #### D IFF CBC, [id number], BMP, ALB ####[address] [address] [facility] RBC (Bld) [#/Vol] 3.48 10*6/uL Low 3.60-5.00 [facility] Comment on above: Order Comment: Diagn osis: N17.9, I50.32, Comment: [id number], FELICIANO, RM102, , 06/01/23 Performed By: #### D IFF CBC, [id number], BMP, ALB ####[address] [address] [facility] Segmented neutrophils/100 WBC (Bld) 69 % Normal 50-70 [facility] Comment on above: Order Comment: Diagn osis: N17.9, I50.32, Comment: [id number], OGLIORZ, RM102, , 06/01/23 Performed By: #### D IFF CBC, [id number], BMP, ALB ####[address] [address] [facility] WBC (Bld) [#/Vol] 9.5 10*3/uL Normal 3.8-11.6 [facility] Comment on above: Order Comment: Diagn osis: N17.9, I50.32, E11.22 Comment: [id number], FELICIANO, RM102, , 06/01/23 Performed By: #### D IFF CBC, [id number], BMP, ALB ####[facility] [id number] [place] [id number] [facility] Eosinophils Auto (Bld) [#/Vo l]Ordered By: Aleksandr Pascual on 06-06-2023 Eosinophils (Bld) [#/Vol] N/A [facility] Eosinophils/100 WBC Auto (Bl d)Ordered By: Aleksandr Pascual on 06-06-2023 Eosinophils/100 WBC (Bld) N/A [facility] Eosinophils/100 WBC Manual c nt (Bld)Ordered By: Aleksandr Pascual on 06-06-2023 Eosinophils/100 WBC (Bld) 2 % 1-3 [facility] Erythrocyte distribution wid th Auto (RBC) [Ratio]Ordered By: Aleksandr Pascual on 06-06-2023 Erythrocyte distribution width (RBC) [Ratio] 13.8 % 11.9-15.3 [facility] Glucose (BldC) [Mass/Vol]on 06-06-2023 Glucose [Moles/Vol] 64 mmol/L Invalid Interpretation Code [facility] Work Phone: Glucose [Moles/Vol] 149 mmol/L Invalid Interpretation Code [facility] Work Phone: Glucose [Moles/Vol] 287 mmol/L Invalid Interpretation Code [facility] Work Phone: Glucose [Mass/volume] in Ser um or PlasmaOrdered By: Aleksandr Pascual on 06-06-2023 Glucose [Mass/Vol] 286 mg/dL 70-[address] [facility] Comment on above: ADA recommended refe rence rangeRandom Glucose Reference Range is dependent on time and content of last meal. Glucose of more than 200 mg/dL in a nonstressed, ambulatory subject supports the diagnosis of Diabetes Mellitus. Hematocrit Auto (Bld) [Volum e fraction]Ordered By: Aleksandr Pascual on 06-06-2023 Hematocrit (Bld) [Volume fraction] 32.3 % 34.0-46.4 [facility] Hemoglobin [Mass/volume] in BloodOrdered By: Aleksandr Pascual on 06-06-2023 Hemoglobin (Bld) [Mass/Vol] 10.7 g/dL 11.8-15.4 [facility] Leukocytes [#/volume] correc babak for nucleated erythrocytes in Blood by Automated counOrdered By: Aleksandr Pascual on 06-06-2023 WBC corrected for nucl RBC Auto (Bld) [#/Vol] 9.5 10*3/uL 3.8-11.6 [facility] Lymphocytes Auto (Bld) [#/Vo l]Ordered By: Aleksandr Pascual on 06-06-2023 Lymphocytes (Bld) [#/Vol] N/A [facility] Lymphocytes/100 WBC Auto (Bl d)Ordered By: Aleksandr Pascual on 06-06-2023 Lymphocytes/100 WBC (Bld) N/A [facility] Lymphocytes/100 WBC Manual c nt (Bld)Ordered By: Aleksandr Pascual on 06-06-2023 Lymphocytes/100 WBC (Bld) 15 % 18-42 [facility] MCH Auto (RBC) [Entitic mass ]Ordered By: Aleksandr Pascual on 06-06-2023 MCH (RBC) [Entitic mass] 30.9 pg 24.7-34.3 [facility] MCHC Auto (RBC) [Mass/Vol]Or dered By: Aleksandr Pascual on 06-06-2023 MCHC (RBC) [Mass/Vol] 33.3 g/dL 32.0-35.0 [facility] MCV Auto (RBC) [Entitic vol] Ordered By: Aleksandr Pascual on 06-06-2023 MCV (RBC) [Entitic vol] 92.7 fL 80-100 [facility] Metamyelocytes/100 WBC Manua l cnt (Bld)Ordered By: Aleksandr Pascual on 06-06-2023 Metamyelocytes/100 WBC (Bld) 2 % 0-0 [facility] Monocytes Auto (Bld) [#/Vol] Ordered By: Aleksandr Pascual on 06-06-2023 Monocytes (Bld) [#/Vol] N/A [facility] Monocytes/100 WBC Auto (Bld) Ordered By: Aleksandr Pascual on 06-06-2023 Monocytes/100 WBC (Bld) N/A [facility] Monocytes/100 WBC Manual cnt (Bld)Ordered By: Aleksandr Pascual on 06-06-2023 Monocytes/100 WBC (Bld) 8 % 2-11 [facility] Neutrophils Auto (Bld) [#/Vo l]Ordered By: Aleksandr Pascual on 06-06-2023 Neutrophils (Bld) [#/Vol] N/A [facility] Neutrophils/100 WBC Auto (Bl d)Ordered By: Aleksandr Pascual on 06-06-2023 Neutrophils/100 WBC (Bld) N/A [facility] No Panel InformationOrdered By: Aleksandr Pascual on 06-06-2023 Estimated GFR (CKD-EPI) 42.059 mL/Min [facility] Creatinine Clearance (Chem N/A [facility] Nucleated erythrocytes [Pres ence] in Blood by Automated countOrdered By: Aleksandr Pascual on 06-06-2023 Nucleated RBC Auto Ql (Bld) N/A [facility] Platelet adequacy [Presence] in Blood by Light microscopyOrdered By: Aleksandr Pascual on 06-06-2023 Platelets LM Ql (Bld) Normal Normal [facility] Platelet mean volume Auto (B ld) [Entitic vol]Ordered By: Aleksandr Pascual on 06-06-2023 Platelet mean volume (Bld) [Entitic vol] 7.0 fL 6.3-10.7 [facility] Platelet morphology finding [Identifier] in BloodOrdered By: Aleksandr Pascual on 06-06-2023 Platelet morphology finding Nom (Bld) Normal Normal [facility] Platelets Auto (Bld) [#/Vol] Ordered By: Aleksandr Pascual on 06-06-2023 Platelets (Bld) [#/Vol] 431 10*3/uL 150-450 [facility] Potassium [Moles/volume] in Serum or PlasmaOrdered By: Aleksandr Pascual on 06-06-2023 Potassium [Moles/Vol] 4.5 mmol/L 3.5-5.1 [facility] RBC Auto (Bld) [#/Vol]Ordere d By: Aleksandr Pascual on 06-06-2023 RBC (Bld) [#/Vol] 3.48 10*6/uL 3.60-5.00 [facility] RBC morphologyOrdered By: Huong Pascual on 06-06-2023 RBC morphology finding Nom (Bld) N/A [facility] Relevant diagnostic tests/la boratory data Narrativeon 06-06-2023 Albumin [Mass/Vol] 3.2 g/dL Low 3.5-5.7 [facility] Work Phone: Anion gap [Moles/Vol] 11.6 mmol/L 6.0-15.0 [facility] Work Phone: Anisocytosis Ql (Bld) Slight [facility] Work Phone: Band form neutrophils/100 WBC (Bld) 4 % 0-5 [facility] Work Phone: Basophils/100 WBC (Bld) 0 % 0-2 [facility] Work Phone: Calcium [Mass/Vol] 8.2 mg/dL Low 8.6-10.3 [facility] Work Phone: Chloride [Moles/Vol] 98 mmol/L 98-107 [facility] Work Phone: CO2 [Moles/Vol] 31.9 mmol/L High 21.0-31.0 [facility] Work Phone: Creatinine [Mass/Vol] 1.37 mg/dL High 0.60-1.20 [facility] Work Phone: Eosinophils/100 WBC (Bld) 2 % 1-3 [facility] Work Phone: Erythrocyte distribution width (RBC) [Entitic vol] 13.8 % 11.9-15.3 [facility] Work Phone: GFR/1.73 sq M.predicted MDRD (S/P/Bld) [Vol rate/Area] 42.059 mL/min/{1.73_m2} [facility] Work Phone: Glucose [Mass/Vol] 286 mg/dL High 70-100 [facility] Work Phone: Hematocrit (Bld) [Volume fraction] 32.3 % Low 34.0-46.4 [facility] Work Phone: Hemoglobin (Bld) [Mass/Vol] 10.7 g/dL Low 11.8-15.4 [facility] Work Phone: Lymphocytes/100 WBC (Bld) 15 % Low 18-42 [facility] Work Phone: MCH (RBC) [Entitic mass] 92.7 fL 80-100 [facility] Work Phone: MCH (RBC) [Entitic mass] 30.9 pg 24.7-34.3 [facility] Work Phone: MCHC (RBC) [Mass/Vol] 33.3 g/dL 32.0-35.0 [facility] Work Phone: Metamyelocytes/100 WBC (Bld) 2 % High 0-0 [facility] Work Phone: Monocytes/100 WBC (Bld) 8 % 2-11 [facility] Work Phone: Platelet mean volume (Bld) [Entitic vol] 7 fL 6.3-10.7 [facility] Work Phone: Platelet morphology finding Nom (Bld) Normal Normal [facility] Work Phone: Platelets (Bld) [#/Vol] 431 10*3/uL 150-450 [facility] Work Phone: Platelets Estimate (Bld) [#/Vol] Normal Normal [facility] Work Phone: Potassium [Moles/Vol] 4.5 mmol/L 3.5-5.1 [facility] Work Phone: RBC (Bld) [#/Vol] 3.48 10*6/uL Low 3.60-5.00 [facility] Work Phone: Segmented neutrophils/100 WBC (Bld) 69 % 50-70 [facility] Work Phone: Sodium [Moles/Vol] 137 mmol/L 136-145 [facility] Work Phone: Urea nitrogen [Mass/Vol] 20 mg/dL 7-25 [facility] Work Phone: Vitamin D 25 Hydroxy Total 35.7 ng/mL 30-100 [facility] Work Phone: WBC (Bld) [#/Vol] 9.5 10*3/uL 3.8-11.6 [facility] Work Phone: WBC casts LM.LPF (Urine sed) [#/Area] 9.5 10*3/uL 3.8-11.6 [facility] Work Phone: Segmented neutrophils/100 WB C Manual cnt (Bld)Ordered By: Aleksandr Pascual on 06-06-2023 Segmented neutrophils/100 WBC (Bld) 69 % 50-70 [facility] Serum or plasma anion gap de terminationOrdered By: Aleksandr Pascual on 06-06-2023 Anion gap [Moles/Vol] 11.6 mmol/L 6.0-15.0 [facility] Sodium [Moles/volume] in Ser um or PlasmaOrdered By: Aleksandr Pascual on 06-06-2023 Sodium [Moles/Vol] 137 mmol/L 136-[address] [facility] Urea nitrogen [Mass/volume] in Serum or PlasmaOrdered By: Aleksandr Pascual on 06-06-2023 Urea nitrogen [Mass/Vol] 20 mg/dL 7-25 [facility] Vitamin D 25 Hydroxy Totalon 06-06-2023 Vitamin D 25 Hydroxy Total 35.7 ng/mL Normal 30-100 [facility] Comment on above: Order Comment: Diagn osis: N17.9, I50.32, E11.22 Comment: [id number], FELICIANO, RM102, , 06/01/23 Result Comment: TRACI MIN D STATUS 25([place])VITAMIN D RANGE (ng/mL) Deficient <20 Insufficient 20 to <30 Sufficient 30 to 100 Reference: Carroll Ya, Chloe VICTORIA, et al. Evaluation,treatment, and prevention of vitamin D deficiency; an Endocrine Society clinical practice guideline. JCEM. 2010; 96(7):1911-.PERFORMED BY:[facility] [place], [place] [phone] MEDICAL DIRECTORXAVIER AGARWAL M.D. Performed By: #### D IFF CBC, [id number], BMP, ALB ####[facility] [place] [address] [facility] Vitamin D+Metabolites [Mass/ volume] in Serum or PlasmaOrdered By: Aleksandr Pascual on 06-06-2023 Vitamin D+Metabolites [Mass/Vol] 35.7 ng/mL 30-100 [facility] Comment on above: VITAMIN D STATUS 25( [place])VITAMIN D RANGE (ng/mL) Deficient <20 Insufficient 20 to <30Sufficient 30 to 100Reference: Carroll Ya, Chloe VICTORIA, et al. Evaluation,treatment, and prevention of vitamin D deficiency; an Endocrine Society clinical practice guideline. JCEM. 2010; 96(7):1911-30. WBC Auto (Bld) [#/Vol]Ordere d By: Aleksandr Pascual on 06-06-2023 WBC (Bld) [#/Vol] 9.5 10*3/uL 3.8-11.[address] [facility] Glucose (BldC) [Mass/Vol]on 06-05-2023 Glucose [Moles/Vol] 127 mmol/L Invalid Interpretation Code [facility] Work Phone: Glucose [Moles/Vol] 95 mmol/L Invalid Interpretation Code [facility] Work Phone: Glucose [Moles/Vol] 81 mmol/L Invalid Interpretation Code [facility] Work Phone: Glucose (BldC) [Mass/Vol]on 06-04-2023 Glucose [Moles/Vol] 203 mmol/L Invalid Interpretation Code [facility] Work Phone: Glucose [Moles/Vol] 218 mmol/L Invalid Interpretation Code [facility] Work Phone: [phone] Glucose [Moles/Vol] 281 mmol/L Invalid Interpretation Code [facility] Work Phone: Glucose [Moles/Vol] 293 mmol/L Invalid Interpretation Code [facility] Work Phone: Glucose (BldC) [Mass/Vol]on 06-03-2023 Glucose [Moles/Vol] 64 mmol/L Invalid Interpretation Code [facility] Work Phone: [phone] Glucose [Moles/Vol] 184 mmol/L Invalid Interpretation Code [facility] Work Phone: Glucose [Moles/Vol] 122 mmol/L Invalid Interpretation Code [facility] Work Phone: Glucose (BldC) [Mass/Vol]on 06-02-2023 Glucose [Moles/Vol] 213 mmol/L Invalid Interpretation Code [facility] Work Phone: [phone] Glucose [Moles/Vol] 193 mmol/L Invalid Interpretation Code [facility] Work Phone: Glucose [Moles/Vol] 169 mmol/L Invalid Interpretation Code [facility] Work Phone: Basic Metabolic Panelon 08-0 Anion gap [Moles/Vol] 9.7 mmol/L Normal 6.0-15.0 [facility] Comment on above: Performed By: #### B MP ####[place] [id number] [facility] Calcium [Mass/Vol] 8.5 mg/dL Low 8.6-10.3 [facility] Comment on above: Performed By: #### B MP ####[place] [id number] [place] [id number] [facility] Chloride [Moles/Vol] 93 mmol/L Low 98-107 [facility] Comment on above: Performed By: #### B MP ####[place] [id number] [facility] CO2 [Moles/Vol] 28.3 mmol/L Normal 21.0-31.0 [facility] Comment on above: Performed By: #### B MP ####[place] [id number] [facility] Creatinine [Mass/Vol] 1.76 mg/dL High 0.60-1.20 [facility] Comment on above: Performed By: #### B MP ####[place] [id number] [facility] Creatinine Clr Calc Pharmacy 44.95 Normal [facility] Comment on above: Result Comment: PERF ORMED BY:[address] [place], [place] [phone] MEDICAL DIRECTORXAVIER AGARWAL M.D. Performed By: #### B MP ####[place] [id number] [facility] GFR/1.73 sq M.predicted MDRD (S/P/Bld) [Vol rate/Area] 31.139 mL/min/{1.73_m2} Normal [facility] Comment on above: Performed By: #### B MP ####[place] [id number] [facility] Glucose [Mass/Vol] 282 mg/dL High 70-100 [facility] Comment on above: Result Comment: [facility] Glucose Reference Range is dependent on time and content of last meal. Glucose of more than 200 mg/dL in a nonstressed, ambulatory subject supports the diagnosis of Diabetes Mellitus. ADA recommended reference range Performed By: #### B MP ####[place] [id number] [facility] Potassium [Moles/Vol] 4.0 mmol/L Normal 3.5-5.1 [facility] Comment on above: Performed By: #### B MP ####[place] [id number] [facility] Sodium [Moles/Vol] 127 mmol/L Low 136-145 [facility] Comment on above: Performed By: #### B MP ####[place] [id number] [facility] Urea nitrogen [Mass/Vol] 39 mg/dL High 7-25 [facility] Comment on above: Performed By: #### B MP ####[facility] [id number] [place] [address] [facility] Calcium [Mass/volume] in Ser um or PlasmaOrdered By: Fahad Dobson on 06-01-2023 Calcium [Mass/Vol] 8.5 mg/dL 8.6-10.[address] [facility] Carbon dioxide, total [Moles /volume] in Serum or PlasmaOrdered By: Fahad Dobson on 06-01-2023 CO2 [Moles/Vol] 28.3 mmol/L 21.0-31.0 [facility] Chloride [Moles/volume] in S moriah or PlasmaOrdered By: Fahad Dobson on 06-01-2023 Chloride [Moles/Vol] 93 mmol/L 98-107 [facility] Creatinine [Mass/volume] in Serum or PlasmaOrdered By: Fahad Dobson on 06-01-2023 Creatinine [Mass/Vol] 1.76 mg/dL 0.60-1.20 [facility] Glucose (BldC) [Mass/Vol]on 06-01-2023 Glucose [Moles/Vol] 438 mmol/L Invalid Interpretation Code [facility] Work Phone: Glucose Glucometer (BldC) [M ass/Vol]Ordered By: Fahad Dobson on 06-01-2023 Glucose [Mass/Vol] 332 mg/dL [facility] Comment on above: Random Glucose Refer ence Range is dependent on time and content of last meal. Glucose of more than 200 mg/dL in a nonstressed, ambulatory subject supports the diagnosis of Diabetes Mellitus. Glucose Poct Glucometerson 0 06-01-2023 Glucose [Mass/Vol] 332 mg/dL Normal [facility] Comment on above: Result Comment: [place] Glucose Reference Range is dependent on time and content of last meal. Glucose of more than 200 mg/dL in a nonstressed, ambulatory subject supports the diagnosis of Diabetes Mellitus.PERFORMED BY:[facility] [place], [place] [phone] MEDICAL DIRECTORXAVIER AGARWAL M.D. Performed By: #### G LULS ####Point of Care testing, Glucose [Mass/Vol] 319 mg/dL Normal [facility] Comment on above: Result Comment: [place] om Glucose Reference Range is dependent on time and content of last meal. Glucose of more than 200 mg/dL in a nonstressed, ambulatory subject supports the diagnosis of Diabetes Mellitus.PERFORMED BY:[facility] [place], [place] [phone] MEDICAL DIRECTORXAVIER AGARWAL M.D. Performed By: #### G LULS ####Point of Care testing, Glucose [Mass/volume] in Ser um or PlasmaOrdered By: Fahad Dobson on 06-01-2023 Glucose [Mass/Vol] 282 mg/dL 70-[address] [facility] Comment on above: ADA recommended refe rence rangeRandom Glucose Reference Range is dependent on time and content of last meal. Glucose of more than 200 mg/dL in a nonstressed, ambulatory subject supports the diagnosis of Diabetes Mellitus. No Panel InformationOrdered By: Fahad Dobson on 06-01-2023 Estimated GFR (CKD-EPI) 31.139 mL/Min [facility] Creatinine Clearance (Chem 44.95 [facility] Potassium [Moles/volume] in Serum or PlasmaOrdered By: Fahad Dobson on 06-01-2023 Potassium [Moles/Vol] 4.0 mmol/L 3.5-5.1 [facility] Serum or plasma anion gap de terminationOrdered By: Fahad Dobson on 06-01-2023 Anion gap [Moles/Vol] 9.7 mmol/L 6.0-15.0 [facility] Sodium [Moles/volume] in Ser um or PlasmaOrdered By: Fahad Dobson on 06-01-2023 Sodium [Moles/Vol] 127 mmol/L 136-[address] [facility] Urea nitrogen [Mass/volume] in Serum or PlasmaOrdered By: Fahad Dobson on 06-01-2023 Urea nitrogen [Mass/Vol] 39 mg/dL 7-25 [facility] Basic Metabolic Panelon 08-0 Anion gap [Moles/Vol] 8.8 mmol/L Normal 6.0-15.0 [facility] Comment on above: Performed By: #### B MP ####[address] [address] [facility] Calcium [Mass/Vol] 8.3 mg/dL Low 8.6-10.3 [facility] Comment on above: Performed By: #### B MP ####[address] [address] [facility] Chloride [Moles/Vol] 93 mmol/L Low 98-107 [facility] Comment on above: Performed By: #### B MP ####[address] [address] [facility] CO2 [Moles/Vol] 28.7 mmol/L Normal 21.0-31.0 [facility] Comment on above: Performed By: #### B MP ####[place] [id number] [facility] Creatinine [Mass/Vol] 1.91 mg/dL High 0.60-1.20 [facility] Comment on above: Performed By: #### B MP ####[address] [address] [facility] Creatinine Clr Calc Pharmacy 41.33 Normal [facility] Comment on above: Result Comment: PERF ORMED BY:[address] [place] [phone] MEDICAL DIRECTORXAVIER AGARWAL M.D. Performed By: #### B MP ####[address] [address] [facility] GFR/1.73 sq M.predicted MDRD (S/P/Bld) [Vol rate/Area] 28.228 mL/min/{1.73_m2} Normal [facility] Comment on above: Performed By: #### B MP ####[address] [address] [facility] Glucose [Mass/Vol] 247 mg/dL High 70-100 [facility] Comment on above: Result Comment: [place] Glucose Reference Range is dependent on time and content of last meal. Glucose of more than 200 mg/dL in a nonstressed, ambulatory subject supports the diagnosis of Diabetes Mellitus. ADA recommended reference range Performed By: #### B MP ####[address] [address] [facility] Potassium [Moles/Vol] 3.5 mmol/L Normal 3.5-5.1 [facility] Comment on above: Performed By: #### B MP ####[address] [address] [facility] Sodium [Moles/Vol] 127 mmol/L Low 136-145 [facility] Comment on above: Performed By: #### B MP ####[address] [address] [facility] Urea nitrogen [Mass/Vol] 41 mg/dL High 7-25 [facility] Comment on above: Performed By: #### B MP ####[address] [address] [facility] Glucose Poct Glucometerson 0 05-31-2023 Glucose [Mass/Vol] 364 mg/dL Normal [facility] Comment on above: Result Comment: [facility] Glucose Reference Range is dependent on time and content of last meal. Glucose of more than 200 mg/dL in a nonstressed, ambulatory subject supports the diagnosis of Diabetes Mellitus.PERFORMED BY:[place] [address] [place], [place] [phone] MEDICAL LILIYA AGARWAL M.D. Performed By: #### G LULS ####Point of Care testing, Glucose [Mass/Vol] 311 mg/dL Normal [facility] Comment on above: Result Comment: [facility] Glucose Reference Range is dependent on time and content of last meal. Glucose of more than 200 mg/dL in a nonstressed, ambulatory subject supports the diagnosis of Diabetes Mellitus.PERFORMED BY:[place] [address] [place], [place] [phone] MEDICAL DIRECTORXAVIRE AGARWAL M.D. Performed By: #### G LULS ####Point of Care testing, Glucose [Mass/Vol] 341 mg/dL Normal [facility] Comment on above: Result Comment: [facility] Glucose Reference Range is dependent on time and content of last meal. Glucose of more than 200 mg/dL in a nonstressed, ambulatory subject supports the diagnosis of Diabetes Mellitus.PERFORMED BY:[address] [place], [place] [phone] MEDICAL DIRECTORXAVIER AGARWAL M.D. Performed By: #### G LULS ####Point of Care testing, Glucose [Mass/Vol] 270 mg/dL Normal [facility] Comment on above: Result Comment: [facility] Glucose Reference Range is dependent on time and content of last meal. Glucose of more than 200 mg/dL in a nonstressed, ambulatory subject supports the diagnosis of Diabetes Mellitus.PERFORMED BY:[address] [place], [place] [phone] MEDICAL LILIYA AGARWAL M.D. Performed By: #### G LULS ####Point of Care testing, Basic Metabolic Panelon 08-0 Anion gap [Moles/Vol] 9.6 mmol/L Normal 6.0-15.0 [facility] Comment on above: Performed By: #### C BC, BMP ####[address] [address] [facility] Calcium [Mass/Vol] 8.4 mg/dL Low 8.6-10.3 [facility] Comment on above: Performed By: #### C BC, BMP ####[address] [address] [place] Chloride [Moles/Vol] 95 mmol/L Low 98-107 [facility] Comment on above: Performed By: #### C BC, BMP ####[address] [address] [facility] CO2 [Moles/Vol] 29.6 mmol/L Normal 21.0-31.0 [facility] Comment on above: Performed By: #### C BC, BMP ####[address] [address] [facility] Creatinine [Mass/Vol] 2.29 mg/dL High 0.60-1.20 [facility] Comment on above: Performed By: #### C BC, BMP ####[address] [address] [facility] Creatinine Clr Calc Pharmacy 34.34 Normal [facility] Comment on above: Result Comment: PERF ORMED BY:[address] [place], [place] [phone] MEDICAL DIRECTORXAVIER AGARWAL M.D. Performed By: #### C BC, BMP ####[place] [id number] [facility] GFR/1.73 sq M.predicted MDRD (S/P/Bld) [Vol rate/Area] 22.705 mL/min/{1.73_m2} Normal [facility] Comment on above: Performed By: #### C BC, BMP ####[place] [address] [facility] Glucose [Mass/Vol] 164 mg/dL High 70-100 [facility] Comment on above: Result Comment: [place] Glucose Reference Range is dependent on time and content of last meal. Glucose of more than 200 mg/dL in a nonstressed, ambulatory subject supports the diagnosis of Diabetes Mellitus. ADA recommended reference range Performed By: #### C BC, BMP ####[place] [address] [facility] Potassium [Moles/Vol] 3.2 mmol/L Low 3.5-5.1 [facility] Comment on above: Performed By: #### C BC, BMP ####[place] [address] [facility] Sodium [Moles/Vol] 131 mmol/L Low 136-145 [facility] Comment on above: Performed By: #### C BC, BMP ####[place] [address] [facility] Urea nitrogen [Mass/Vol] 45 mg/dL High 7-25 [facility] Comment on above: Performed By: #### C BC, BMP ####[address] [address] [facility] Basophils Auto (Bld) [#/Vol] Ordered By: Fahad Dobson on 05-30-2023 Basophils (Bld) [#/Vol] 0.0 10*3/uL 0.0-0.2 [facility] Basophils/100 WBC Auto (Bld) Ordered By: Fahad Dobson on 05-30-2023 Basophils/100 WBC (Bld) 0.2 % . [facility] Complete Blood Count Auto Di ffon 05-30-2023 Basophils (Bld) [#/Vol] 0.0 10*3/uL Normal 0.0-0.2 [facility] Comment on above: Result Comment: PERF ORMED BY:[address] [place], [place] [phone] MEDICAL DIRECTORXAVIER AGARWAL M.D. Performed By: #### C BC, BMP ####[place] [address] [facility] Basophils/100 WBC (Bld) 0.2 % Normal . [facility] Comment on above: Performed By: #### C BC, BMP ####[place] [address] [facility] Eosinophils (Bld) [#/Vol] 0.3 10*3/uL Normal 0.0-0.45 [facility] Comment on above: Performed By: #### C BC, BMP ####[place] [address] [facility] Eosinophils/100 WBC (Bld) 2.8 % Normal . [facility] Comment on above: Performed By: #### C BC, BMP ####[place] [address] [facility] Erythrocyte distribution width (RBC) [Ratio] 13.7 % Normal 11.9-15.3 [facility] Comment on above: Performed By: #### C BC, BMP ####[address] Hematocrit (Bld) [Volume fraction] 32.1 % Low 34.0-46.4 [facility] Comment on above: Performed By: #### C BC, BMP ####[address] Hemoglobin (Bld) [Mass/Vol] 10.9 g/dL Low 11.8-15.4 [facility] Comment on above: Performed By: #### C BC, BMP ####[address] Lymphocytes (Bld) [#/Vol] 0.7 10*3/uL Low 1.00-4.8 [facility] Comment on above: Performed By: #### C DENISE, BMP ####[address] Lymphocytes/100 WBC (Bld) 5.6 % Normal . [facility] Comment on above: Performed By: #### C BC, BMP ####[address] MCH (RBC) [Entitic mass] 30.9 pg Normal 24.7-34.3 [facility] Comment on above: Performed By: #### C BC, BMP ####[address] MCV (RBC) [Entitic vol] 91.1 fL Normal 80-100 [facility] Comment on above: Performed By: #### C BC, BMP ####[address] Mean Corpuscular HGB Conc 33.9 g/dL Normal 32.0-35.0 [facility] Comment on above: Performed By: #### C BC, BMP ####[address] Monocytes (Bld) [#/Vol] 0.4 10*3/uL Normal 0.0-0.8 [facility] Comment on above: Performed By: #### C BC, BMP ####[address] [address] [facility] Monocytes/100 WBC (Bld) 3.3 % Normal . [facility] Comment on above: Performed By: #### C DENISE, BMP ####[address] [address] [facility] Neutrophils (Bld) [#/Vol] 10.9 10*3/uL High 1.8-7.7 [facility] Comment on above: Performed By: #### C DENISE, BMP ####[address] [address] [facility] Neutrophils/100 WBC (Bld) 88.1 % Normal . [facility] Comment on above: Performed By: #### C DENISE, BMP ####[place] [address] [facility] NRBC% 0.1 /100{WBC} Normal 0-0.5 [facility] Comment on above: Performed By: #### C DENISE, BMP ####[address] [address] [facility] Platelet mean volume (Bld) [Entitic vol] 7.6 fL Normal 6.3-10.7 [facility] Comment on above: Performed By: #### C DENISE, BMP ####[address] [address] [facility] Platelets (Bld) [#/Vol] 202 10*3/uL Normal 150-450 [facility] Comment on above: Performed By: #### C DENISE, BMP ####[address] [address] [facility] RBC (Bld) [#/Vol] 3.53 10*6/uL Low 3.60-5.00 [facility] Comment on above: Performed By: #### C DENISE, BMP ####[address] [address] [facility] WBC (Bld) [#/Vol] 12.3 10*3/uL High 3.8-11.6 [facility] Comment on above: Performed By: #### C DENISE, BMP ####[address] [place] [place] [address] [facility] Cortisolon 05-30-2023 Cortisol 20.9 ug/dL Normal [facility] Comment on above: Result Comment: Refe rence range: AM 6 - 24 ug/dl PM <10 ug/dlPERFORMED BY:[address] [place], [place] [phone] MEDICAL DIRECTORXAVIER AGARWAL M.D. Performed By: #### T SH3, LEVI ####[address] [address] [facility] Creatine Kinaseon 05-30-2023 CK [Catalytic activity/Vol] 295 U/L High [facility] Comment on above: Result Comment: PERF ORMED BY:[address] [place], [place] [phone] MEDICAL DIRECTORXAVIER AGARWAL M.D. Performed By: #### C K ####[address] [address] [facility] Creatine kinase [Enzymatic a ctivity/volume] in Serum or PlasmaOrdered By: Sydnie Milian on 05-30-2023 CK [Catalytic activity/Vol] 295 U/L [facility] Eosinophils Auto (Bld) [#/Vo l]Ordered By: Fahad Dobson on 05-30-2023 Eosinophils (Bld) [#/Vol] 0.3 10*3/uL 0.0-0.45 [facility] Eosinophils/100 WBC Auto (Bl d)Ordered By: Fahad Dobson on 05-30-2023 Eosinophils/100 WBC (Bld) 2.8 % . [facility] Erythrocyte distribution wid th Auto (RBC) [Ratio]Ordered By: Fahad Dobson on 05-30-2023 Erythrocyte distribution width (RBC) [Ratio] 13.7 % 11.9-15.3 [facility] Glucose (BldC) [Mass/Vol]on 05-30-2023 Glucose [Mass/Vol] Invalid Interpretation Code [facility] Work Phone: Glucose Poct Glucometerson 0 05-30-2023 Glucose [Mass/Vol] 280 mg/dL Normal [facility] Comment on above: Result Comment: [facility] Glucose Reference Range is dependent on time and content of last meal. Glucose of more than 200 mg/dL in a nonstressed, ambulatory subject supports the diagnosis of Diabetes Mellitus.PERFORMED BY:[address] [place], [place] [phone] MEDICAL LILIYA AGARWAL M.D. Performed By: #### G LULS ####Point of Care testing, Glucose [Mass/Vol] 228 mg/dL Normal [facility] Comment on above: Result Comment: [facility] Glucose Reference Range is dependent on time and content of last meal. Glucose of more than 200 mg/dL in a nonstressed, ambulatory subject supports the diagnosis of Diabetes Mellitus.PERFORMED BY:[address] [place], [place] [phone] MEDICAL LILIYA AGARWAL M.D. Performed By: #### G LULS ####Point of Care testing, Glucose [Mass/Vol] 177 mg/dL Normal [facility] Comment on above: Result Comment: [facility] Glucose Reference Range is dependent on time and content of last meal. Glucose of more than 200 mg/dL in a nonstressed, ambulatory subject supports the diagnosis of Diabetes Mellitus.PERFORMED BY:[address] [place], [place] [phone] JACOBY AGARWAL M.D. Performed By: #### G LULS ####Point of Care testing, Glucose [Mass/Vol] 156 mg/dL Normal [facility] Comment on above: Result Comment: [facility] Glucose Reference Range is dependent on time and content of last meal. Glucose of more than 200 mg/dL in a nonstressed, ambulatory subject supports the diagnosis of Diabetes Mellitus.PERFORMED BY:[address] [place], [place] [phone] JACOBY AGARWAL M.D. Performed By: #### G LULS ####Point of Care testing, Glucose [Mass/Vol] 144 mg/dL Normal [facility] Comment on above: Result Comment: [facility] Glucose Reference Range is dependent on time and content of last meal. Glucose of more than 200 mg/dL in a nonstressed, ambulatory subject supports the diagnosis of Diabetes Mellitus.PERFORMED BY:[facility] [place], [place] [phone] MEDICAL DIRECTORXAVIER AGARWAL M.D. Performed By: #### G LUROSARIO ####Point of Care testing, Hematocrit Auto (Bld) [Volum e fraction]Ordered By: Fahad Dobson on 05-30-2023 Hematocrit (Bld) [Volume fraction] 32.1 % 34.0-46.4 [facility] Hemoglobin [Mass/volume] in BloodOrdered By: Fahad Dobson on 05-30-2023 Hemoglobin (Bld) [Mass/Vol] 10.9 g/dL 11.8-15.4 [facility] Leukocytes [#/volume] correc babak for nucleated erythrocytes in Blood by Automated counOrdered By: Fahad Dobson on 05-30-2023 WBC corrected for nucl RBC Auto (Bld) [#/Vol] 12.3 10*3/uL 3.8-11.6 [facility] Lymphocytes Auto (Bld) [#/Vo l]Ordered By: Fahad Dosbon on 05-30-2023 Lymphocytes (Bld) [#/Vol] 0.7 10*3/uL 1.00-4.8 [facility] Lymphocytes/100 WBC Auto (Bl d)Ordered By: Fahad Dobson on 05-30-2023 Lymphocytes/100 WBC (Bld) 5.6 % . [facility] MCH Auto (RBC) [Entitic mass ]Ordered By: Fahad Dobson on 05-30-2023 MCH (RBC) [Entitic mass] 30.9 pg 24.7-34.3 [facility] MCHC Auto (RBC) [Mass/Vol]Or dered By: Fahad Dobson on 05-30-2023 MCHC (RBC) [Mass/Vol] 33.9 g/dL 32.0-35.0 [facility] MCV Auto (RBC) [Entitic vol] Ordered By: Fahad Dobson on 05-30-2023 MCV (RBC) [Entitic vol] 91.1 fL 80-100 [facility] Magnesiumon 05-30-2023 Magnesium [Mass/Vol] 2.1 mg/dL Normal 1.9-2.7 [facility] Comment on above: Result Comment: PERF ORMED BY:[facility] [place], [place] [phone] MEDICAL DIRECTORXAVIER AGARWAL M.D. Performed By: #### M G ####[facility] [place] [address] [facility] Magnesium [Mass/volume] in S moriah or PlasmaOrdered By: Sydnie Milian on 05-30-2023 Magnesium [Mass/Vol] 2.1 mg/dL 1.9-2.7 [facility] Monocytes Auto (Bld) [#/Vol] Ordered By: Fahad Dobson on 05-30-2023 Monocytes (Bld) [#/Vol] 0.4 10*3/uL 0.0-0.8 [facility] Monocytes/100 WBC Auto (Bld) Ordered By: Fahad Dobson on 05-30-2023 Monocytes/100 WBC (Bld) 3.3 % . [facility] Neutrophils Auto (Bld) [#/Vo l]Ordered By: Fahad Dobson on 05-30-2023 Neutrophils (Bld) [#/Vol] 10.9 10*3/uL 1.8-7.7 [facility] Neutrophils/100 WBC Auto (Bl d)Ordered By: Fahad Dobson on 05-30-2023 Neutrophils/100 WBC (Bld) 88.1 % . [facility] Nucleated erythrocytes [Pres ence] in Blood by Automated countOrdered By: Fahad Dobson on 05-30-2023 Nucleated RBC Auto Ql (Bld) 0.1 /100{WBC} 0-0.5 [facility] Platelet mean volume Auto (B ld) [Entitic vol]Ordered By: Fahad Dobson on 05-30-2023 Platelet mean volume (Bld) [Entitic vol] 7.6 fL 6.3-10.7 [facility] Platelets Auto (Bld) [#/Vol] Ordered By: Fahad Dobson on 05-30-2023 Platelets (Bld) [#/Vol] 202 10*3/uL 150-450 [facility] RBC Auto (Bld) [#/Vol]Ordere d By: Fahad Dobson on 05-30-2023 RBC (Bld) [#/Vol] 3.53 10*6/uL 3.60-5.00 [facility] Random cortisol measurementO rdered By: Sydnie Milian on 05-30-2023 Cortisol [Mass/Vol] 20.9 ug/dL [facility] Comment on above: Reference range: AM 6 - 24 ug/dl PM <10 ug/dl Thyroid Stimulating Hormoneo n 05-30-2023 TSH Qn 1.35 m[IU]/L Normal 0.45-5.33 [facility] Comment on above: Performed By: #### T SH3, LEVI ####[facility] [id number] [place] [id number] [facility] Thyrotropin [Units/volume] i n Serum or PlasmaOrdered By: Sydnie Milian on 05-30-2023 TSH Qn 1.35 m[IU]/L 0.45-5.33 [facility] US renal BIon 05-30-2023 US renal BI Normal [facility] WBC Auto (Bld) [#/Vol]Ordere d By: Fahad Dobson on 05-30-2023 WBC (Bld) [#/Vol] 12.3 10*3/uL 3.8-11.6 [facility] Bacterial blood cultureOrder ed By: Rohit Francis on 05-29-2023 Bacteria identified Cx Nom (Bld) NO GROWTH 5 DAYS [facility] Basic Metabolic Panelon 05-01 Anion gap [Moles/Vol] 13.5 mmol/L Normal 6.0-15.0 [facility] Comment on above: Performed By: #### C BCNO, BMP ####[place] [address] [place] [address] [facility] Calcium [Mass/Vol] 7.9 mg/dL Low 8.6-10.3 [facility] Comment on above: Performed By: #### C TERRY, BMP ####[place] [address] [facility] Chloride [Moles/Vol] 95 mmol/L Low 98-107 [facility] Comment on above: Performed By: #### C TERRY, BMP ####[place] [address] [facility] CO2 [Moles/Vol] 27.4 mmol/L Normal 21.0-31.0 [facility] Comment on above: Performed By: #### C TERRY, BMP ####[place] [address] [facility] Creatinine [Mass/Vol] 2.04 mg/dL High 0.60-1.20 [facility] Comment on above: Performed By: #### C TERRY, BMP ####[place] [address] [facility] Creatinine Clr Calc Pharmacy 38.83 Normal [facility] Comment on above: Result Comment: PERF ORMED BY:[address] [place], [place] [phone] MEDICAL LILIYA AGARWAL M.D. Performed By: #### C TERRY, BMP ####[place] [address] [facility] GFR/1.73 sq M.predicted MDRD (S/P/Bld) [Vol rate/Area] 26.083 mL/min/{1.73_m2} Normal [facility] Comment on above: Performed By: #### C TERRY, BMP ####[place] [address] [facility] Glucose [Mass/Vol] 161 mg/dL Significant change up 70-100 [facility] Comment on above: Result Comment: [facility] Glucose Reference Range is dependent on time and content of last meal. Glucose of more than 200 mg/dL in a nonstressed, ambulatory subject supports the diagnosis of Diabetes Mellitus. ADA recommended reference range Performed By: #### C BCNO, BMP ####[place] [address] [place] [address] [facility] Potassium [Moles/Vol] 3.9 mmol/L Normal 3.5-5.1 [facility] Comment on above: Performed By: #### C BCNO, BMP ####[place] [address] [facility] Sodium [Moles/Vol] 132 mmol/L Low 136-145 [facility] Comment on above: Performed By: #### C BCNO, BMP ####[place] [address] [place] [address] [facility] Urea nitrogen [Mass/Vol] 39 mg/dL High 7-25 [facility] Comment on above: Performed By: #### C BCNO, BMP ####[place] [address] [facility] Blood Cultureon 05-29-2023 Bacteria identified Cx Nom (Bld) NO GROWTH 5 DAYS PERFORMED BY: [place] [id number] PATHOLOGIST STEREOTYPER XAVIER AGARWAL M.D. Normal [facility] Comment on above: Performed By: #### C UBLD ####[place] [address] [facility] Bacteria identified Cx Nom (Bld) NO GROWTH 5 DAYS PERFORMED BY: [facility] [id number] PATHOLOGIST STEREOTYPER XAVIER AGARWAL M.D. Normal [facility] Comment on above: Performed By: #### C UBLD ####[place] [address] [facility] Clostridioides difficile tox in B tcdB gene [Presence] in Stool by BRANDY with probe deteOrdered By: Rohit Francis on 05-29-2023 C. difficile toxin B tcdB gene BRANDY+probe Ql (Stl) Negative Negative [facility] Comment on above: Testing performed by RT-PCR Clostridium Difficileon 05-013 Clostridium Difficile Negative Normal Negative [facility] Comment on above: Order Comment: > or = to 3 loose/watery stools in the last 24 HRS? Y Is patient on promotility agents or tube feeding? N Result Comment: Test ing performed by RT-PCRPERFORMED BY:[place] [place], [place] [phone] MEDICAL DIRECTORXAVIER AGARWAL M.D. Performed By: #### L ACTO SWBC, CDT, CUSTOOL ####[facility] [address] [place] [address] [place] [address] [facility] Glucose Poct Glucometerson 0 05-29-2023 Glucose [Mass/Vol] 81 mg/dL Normal [facility] Comment on above: Result Comment: [place] om Glucose Reference Range is dependent on time and content of last meal. Glucose of more than 200 mg/dL in a nonstressed, ambulatory subject supports the diagnosis of Diabetes Mellitus.PERFORMED BY:[address] [place], [place] [phone] MEDICAL DIRECTORXAVIER AGARWAL M.D. Performed By: #### G LULS ####Point of Care testing, Commemt1 Glu2: Cleaned Meter Normal [facility] Comment on above: Result Comment: PERF ORMED BY:[place] [address] [place], [place] [phone] MEDICAL DIRECTORXAVIER AGARWAL M.D. Performed By: #### G LULS ####Point of Care testing, Glucose [Mass/Vol] 70 mg/dL Normal [facility] Comment on above: Result Comment: [place] [facility] Glucose Reference Range is dependent on time and content of last meal. Glucose of more than 200 mg/dL in a nonstressed, ambulatory subject supports the diagnosis of Diabetes Mellitus. Performed By: #### G LULS ####Point of Care testing, Commemt1 Glu2: Cleaned Meter Normal [facility] Comment on above: Result Comment: PERF ORMED BY:[address] [place], [place] [phone] MEDICAL DIRECTORYOANALAN SUN M.D. Performed By: #### G LULS ####Point of Care testing, Glucose [Mass/Vol] 78 mg/dL Normal [facility] Comment on above: Result Comment: [place] [facility] Glucose Reference Range is dependent on time and content of last meal. Glucose of more than 200 mg/dL in a nonstressed, ambulatory subject supports the diagnosis of Diabetes Mellitus. Performed By: #### G LULS ####Point of Care testing, Glucose [Mass/Vol] 122 mg/dL Normal [facility] Comment on above: Result Comment: [place] om Glucose Reference Range is dependent on time and content of last meal. Glucose of more than 200 mg/dL in a nonstressed, ambulatory subject supports the diagnosis of Diabetes Mellitus. Performed By: #### G LULS ####Point of Care testing, Commemt1 Normal [facility] Comment on above: Result Comment: Glu2 : Will Repeat TestPERFORMED BY:[address] [place], [place] [phone] MEDICAL LILIYA AGARWAL M.D. Performed By: #### G LULS ####Point of Care testing, Glucose [Mass/Vol] 24 mg/dL Off scale low [facility] Comment on above: Result Comment: [place] [facility] Glucose Reference Range is dependent on time and content of last meal. Glucose of more than 200 mg/dL in a nonstressed, ambulatory subject supports the diagnosis of Diabetes Mellitus. Performed By: #### G LULS ####Point of Care testing, Commemt1 Glu2: Cleaned Meter Normal [facility] Comment on above: Result Comment: PERF ORMED BY:[place] [address] [place], [place] [phone] MEDICAL LILIYA AGARWAL M.D. Performed By: #### G LULS ####Point of Care testing, Glucose [Mass/Vol] 131 mg/dL Normal [facility] Comment on above: Result Comment: [place] om Glucose Reference Range is dependent on time and content of last meal. Glucose of more than 200 mg/dL in a nonstressed, ambulatory subject supports the diagnosis of Diabetes Mellitus. Performed By: #### G LULS ####Point of Care testing, Glucose [Mass/Vol] 174 mg/dL Normal [facility] Comment on above: Result Comment: [facility] Glucose Reference Range is dependent on time and content of last meal. Glucose of more than 200 mg/dL in a nonstressed, ambulatory subject supports the diagnosis of Diabetes Mellitus.PERFORMED BY:[address] [place], [place] [phone] MEDICAL DIRECTORXAVIER AGARWAL M.D. Performed By: #### G BENSON ####Point of Care testing, Hemogram CBC Without Diffon 05-29-2023 Erythrocyte distribution width (RBC) [Ratio] 13.8 % Normal 11.9-15.3 [facility] Comment on above: Performed By: #### C TERRY, BMP ####[place] [address] [facility] Hematocrit (Bld) [Volume fraction] 34.1 % Normal 34.0-46.4 [facility] Comment on above: Performed By: #### C TERRY, BMP ####[place] [address] [facility] Hemoglobin (Bld) [Mass/Vol] 11.6 g/dL Low 11.8-15.4 [facility] Comment on above: Performed By: #### C BCTONIE, BMP ####[place] [address] [facility] MCH (RBC) [Entitic mass] 31.2 pg Normal 24.7-34.3 [facility] Comment on above: Performed By: #### C BCNO, BMP ####[place] [address] [facility] MCV (RBC) [Entitic vol] 92.0 fL Normal 80-100 [facility] Comment on above: Performed By: #### C BCNO, BMP ####[place] [id number] [facility] Mean Corpuscular HGB Conc 33.9 g/dL Normal 32.0-35.0 [facility] Comment on above: Performed By: #### C TERRY, BMP ####[address] [address] [facility] Platelet mean volume (Bld) [Entitic vol] 7.6 fL Normal 6.3-10.7 [facility] Comment on above: Result Comment: PERF ORMED BY:[address] [place], [place] [phone] MEDICAL DIRECTORXAVIER AGARWAL M.D. Performed By: #### C TERRY, BMP ####[address] [address] [facility] Platelets (Bld) [#/Vol] 228 10*3/uL Normal 150-450 [facility] Comment on above: Performed By: #### C TERRY, BMP ####[address] [place] [address] [facility] RBC (Bld) [#/Vol] 3.71 10*6/uL Normal 3.60-5.00 [facility] Comment on above: Performed By: #### C TERRY, BMP ####[address] [address] [facility] WBC (Bld) [#/Vol] 12.7 10*3/uL High 3.8-11.6 [facility] Comment on above: Performed By: #### C TERRY, BMP ####[place] [id number] [facility] Lactoferrin, Stool WBCon Lactoferrin, Stool WBC Normal [facility] Comment on above: Performed By: #### L ACTO SWBC, CDT, CUSTOOL ####[address] [address] [facility] No Panel InformationOrdered By: Fahad Dobson on 05-29-2023 Bedside Glucose Comment Glu2: cleaned meter [facility] Stool bacteria identificatio n by cultureOrdered By: Rohit Francis on 05-29-2023 Bacteria identified Cx Nom (Stl) [facility] Alanine aminotransferase [En zymatic activity/volume] in Serum or PlasmaOrdered By: Paige Aburto on 05-28-2023 ALT [Catalytic activity/Vol] 12 U/L 7-52 [facility] Albumin [Mass/volume] in Ser um or Plasma by Bromocresol green (BCG) dye binding methoOrdered By: Paige Aburto on 05-28-2023 Albumin BCG dye [Mass/Vol] 3.9 g/dL 3.5-5.7 [facility] Alkaline phosphatase [Enzyma tic activity/volume] in Serum or PlasmaOrdered By: Paige Aburto on 05-28-2023 ALP [Catalytic activity/Vol] 51 U/L 34-104 [facility] Aspartate aminotransferase [ Enzymatic activity/volume] in Serum or PlasmaOrdered By: Paige Aburto on 05-28-2023 AST [Catalytic activity/Vol] 22 U/L 13-39 [facility] Automated erythrocytes count in urine sediment (number/area)Ordered By: Hamzah Burnham on 05-28-2023 RBC Auto (Urine sed) [#/Area] 0-1 [HPF] 0-4 [facility] Automated leukocytes count i n urine sediment (number/area)Ordered By: Hamzah Burnham on 05-28-2023 WBC Auto (Urine sed) [#/Area] 5-9 [HPF] 0-4 [facility] Bilirubin Test strip Ql (U)O rdered By: Hamzah Burnham on 05-28-2023 Bilirubin Ql (U) Negative Negative [facility] Bilirubin.total [Mass/volume ] in Serum or PlasmaOrdered By: Paige Aburto on 05-28-2023 Bilirubin [Mass/Vol] 0.7 mg/dL 0.3-1.0 [facility] Blood Cultureon 05-28-2023 Bacteria identified Cx Nom (Bld) Normal [facility] Comment on above: Performed By: #### C UBLD ####[facility] [id number] [place] [address] [facility] Bacteria identified Cx Nom (Bld) NO GROWTH 5 DAYS PERFORMED BY: [facility] [address] [place] [address] PATHOLOGIST STEREOTYPER XAVIER AGARWAL M.D. Normal [facility] Comment on above: Performed By: #### C UBLD ####[place] [id number] [facility] Color Auto (U)Ordered By: Hilton Burnham on 05-28-2023 Color (U) Yellow Yellow [facility] Complete Blood Count Auto Di ffon 05-28-2023 Basophils (Bld) [#/Vol] 0.0 10*3/uL Normal 0.0-0.2 [facility] Comment on above: Result Comment: PERF ORMED BY:[address] [place], [place] [phone] MEDICAL DIRECTORXAVIER AGARWAL M.D. Performed By: #### C BC, CMP ####[address] Basophils/100 WBC (Bld) 0.2 % Normal . [facility] Comment on above: Performed By: #### C BC, CMP ####[address] Eosinophils (Bld) [#/Vol] 0.0 10*3/uL Normal 0.0-0.45 [facility] Comment on above: Performed By: #### C BC, CMP ####[address] Eosinophils/100 WBC (Bld) 0.1 % Normal . [facility] Comment on above: Performed By: #### C BC, CMP ####[address] Erythrocyte distribution width (RBC) [Ratio] 13.7 % Normal 11.9-15.3 [facility] Comment on above: Performed By: #### C BC, CMP ####[place] [id number] [facility] Hematocrit (Bld) [Volume fraction] 39.5 % Normal 34.0-46.4 [facility] Comment on above: Performed By: #### C BC, CMP ####[address] Hemoglobin (Bld) [Mass/Vol] 13.2 g/dL Normal 11.8-15.4 [facility] Comment on above: Performed By: #### C BC, CMP ####[address] Lymphocytes (Bld) [#/Vol] 0.6 10*3/uL Low 1.00-4.8 [facility] Comment on above: Performed By: #### C BC, CMP ####[address] Lymphocytes/100 WBC (Bld) 7.6 % Normal . [facility] Comment on above: Performed By: #### C DENISE, CMP ####[address] MCH (RBC) [Entitic mass] 31.2 pg Normal 24.7-34.3 [facility] Comment on above: Performed By: #### C DENISE, CMP ####[address] MCV (RBC) [Entitic vol] 93.4 fL Normal 80-100 [facility] Comment on above: Performed By: #### C DENISE, CMP ####[address] Mean Corpuscular HGB Conc 33.4 g/dL Normal 32.0-35.0 [facility] Comment on above: Performed By: #### C BC, CMP ####[address] Monocytes (Bld) [#/Vol] 0.2 10*3/uL Normal 0.0-0.8 [facility] Comment on above: Performed By: #### C BC, CMP ####[address] Monocytes/100 WBC (Bld) 2.5 % Normal . [facility] Comment on above: Performed By: #### C BC, CMP ####[address] [place] [address] [facility] Neutrophils (Bld) [#/Vol] 7.1 10*3/uL Normal 1.8-7.7 [facility] Comment on above: Performed By: #### C DENISE, CMP ####[address] [address] [facility] Neutrophils/100 WBC (Bld) 89.6 % Normal . [facility] Comment on above: Performed By: #### C DENISE, CMP ####[address] [address] [facility] NRBC% 0.1 /100{WBC} Normal 0-0.5 [facility] Comment on above: Performed By: #### C DENISE, CMP ####[place] [id number] [facility] Platelet mean volume (Bld) [Entitic vol] 7.3 fL Normal 6.3-10.7 [facility] Comment on above: Performed By: #### C DENISE, CMP ####[address] [address] [facility] Platelets (Bld) [#/Vol] 222 10*3/uL Normal 150-450 [facility] Comment on above: Performed By: #### C DENISE, CMP ####[address] [address] [facility] RBC (Bld) [#/Vol] 4.23 10*6/uL Normal 3.60-5.00 [facility] Comment on above: Performed By: #### C DENISE, CMP ####[address] [address] [facility] WBC (Bld) [#/Vol] 7.9 10*3/uL Normal 3.8-11.6 [facility] Comment on above: Performed By: #### C DENISE, CMP ####[address] [address] [facility] Comprehensive Metabolic Pane carlos 05-28-2023 Albumin [Mass/Vol] 3.9 g/dL Normal 3.5-5.7 [facility] Comment on above: Performed By: #### C BC, CMP ####[address] [address] [facility] Albumin/Globulin [Mass ratio] 1.3 {ratio} Normal [facility] Comment on above: Performed By: #### C BC, CMP ####[address] [address] [facility] ALP [Catalytic activity/Vol] 51 U/L Normal 34-104 [facility] Comment on above: Performed By: #### C BC, CMP ####[address] [address] [facility] ALT [Catalytic activity/Vol] 12 U/L Normal 7-52 [facility] Comment on above: Performed By: #### C BC, CMP ####[address] [address] [facility] Anion gap [Moles/Vol] 15.6 mmol/L High 6.0-15.0 [facility] Comment on above: Performed By: #### C BC, CMP ####[address] [address] [facility] AST [Catalytic activity/Vol] 22 U/L Normal 13-39 [facility] Comment on above: Performed By: #### C BC, CMP ####[address] [address] [facility] Bilirubin [Mass/Vol] 0.7 mg/dL Normal 0.3-1.0 [facility] Comment on above: Performed By: #### C BC, CMP ####[address] [address] [facility] Calcium [Mass/Vol] 8.8 mg/dL Normal 8.6-10.3 [facility] Comment on above: Performed By: #### C BC, CMP ####[place] [id number] [facility] Chloride [Moles/Vol] 95 mmol/L Low 98-107 [facility] Comment on above: Performed By: #### C BC, CMP ####[place] [address] [facility] CO2 [Moles/Vol] 24.5 mmol/L Normal 21.0-31.0 [facility] Comment on above: Performed By: #### C BC, CMP ####[place] [address] [facility] Creatinine [Mass/Vol] 1.76 mg/dL High 0.60-1.20 [facility] Comment on above: Performed By: #### C BC, CMP ####[place] [address] [facility] Creatinine Clr Calc Pharmacy 44.45 Normal [facility] Comment on above: Result Comment: PERF ORMED BY:[address] [place], [place] [phone] MEDICAL LILIYA AGARWAL M.D. Performed By: #### C DENISE, CMP ####[place] [address] [facility] GFR/1.73 sq M.predicted MDRD (S/P/Bld) [Vol rate/Area] 31.139 mL/min/{1.73_m2} Normal [facility] Comment on above: Performed By: #### C DENISE, CMP ####[place] [address] [facility] Globulin (S) [Mass/Vol] 2.9 g/dL Normal [facility] Comment on above: Performed By: #### C BC, CMP ####[place] [address] [facility] Glucose [Mass/Vol] 296 mg/dL High 70-100 [facility] Comment on above: Result Comment: [place] om Glucose Reference Range is dependent on time and content of last meal. Glucose of more than 200 mg/dL in a nonstressed, ambulatory subject supports the diagnosis of Diabetes Mellitus. ADA recommended reference range Performed By: #### C BC, CMP ####[place] [id number] [facility] Potassium [Moles/Vol] 4.1 mmol/L Normal 3.5-5.1 [facility] Comment on above: Performed By: #### C BC, CMP ####[place] [address] [facility] Protein [Mass/Vol] 6.8 g/dL Normal 6.4-8.9 [facility] Comment on above: Performed By: #### C BC, CMP ####[address] Sodium [Moles/Vol] 131 mmol/L Low 136-145 [facility] Comment on above: Performed By: #### C BC, CMP ####[place] [id number] [place] [id number] [facility] Urea nitrogen [Mass/Vol] 29 mg/dL High 7-25 [facility] Comment on above: Performed By: #### C BC, CMP ####[place] [id number] [facility] Albumin [Mass/Vol] 3.8 g/dL Normal 3.5-5.7 [facility] Comment on above: Performed By: #### S CAN CBC, HS TROP, LACTIC, CK, CMP ####[address] Albumin/Globulin [Mass ratio] 1.2 {ratio} Normal [facility] Comment on above: Performed By: #### S CAN CBC, HS TROP, LACTIC, CK, CMP ####[place] [address] [facility] ALP [Catalytic activity/Vol] 54 U/L Normal 34-104 [facility] Comment on above: Performed By: #### S CAN CBC, HS TROP, LACTIC, CK, CMP ####[place] [address] [facility] ALT [Catalytic activity/Vol] 13 U/L Normal 7-52 [facility] Comment on above: Performed By: #### S CAN CBC, HS TROP, LACTIC, CK, CMP ####[place] [address] [facility] Anion gap [Moles/Vol] 20.0 mmol/L High 6.0-15.0 [facility] Comment on above: Performed By: #### S CAN CBC, HS TROP, LACTIC, CK, CMP ####[address] AST [Catalytic activity/Vol] 17 U/L Normal 13-39 [facility] Comment on above: Performed By: #### S CAN CBC, HS TROP, LACTIC, CK, CMP ####[address] Bilirubin [Mass/Vol] 0.8 mg/dL Normal 0.3-1.0 [facility] Comment on above: Performed By: #### S CAN CBC, HS TROP, LACTIC, CK, CMP ####[address] Calcium [Mass/Vol] 9.1 mg/dL Normal 8.6-10.3 [facility] Comment on above: Performed By: #### S CAN CBC, HS TROP, LACTIC, CK, CMP ####[address] Chloride [Moles/Vol] 93 mmol/L Low 98-107 [facility] Comment on above: Performed By: #### S CAN CBC, HS TROP, LACTIC, CK, CMP ####[address] CO2 [Moles/Vol] 22.2 mmol/L Normal 21.0-31.0 [facility] Comment on above: Performed By: #### S CAN CBC, HS TROP, LACTIC, CK, CMP ####[address] Creatinine [Mass/Vol] 1.83 mg/dL High 0.60-1.20 [facility] Comment on above: Performed By: #### S CAN CBC, HS TROP, LACTIC, CK, CMP ####[address] Creatinine Clr Calc Pharmacy 42.25 Normal [facility] Comment on above: Result Comment: PERF ORMED BY:[place] [place], [place] [phone] MEDICAL DIRECTORXAVIER AGARWAL M.D. Performed By: #### S CAN CBC, HS TROP, LACTIC, CK, CMP ####[place] [phone] [facility] GFR/1.73 sq M.predicted MDRD (S/P/Bld) [Vol rate/Area] 29.715 mL/min/{1.73_m2} Normal [facility] Comment on above: Performed By: #### S CAN CBC, HS TROP, LACTIC, CK, CMP ####[place] [place] [id number] [facility] Globulin (S) [Mass/Vol] 3.3 g/dL Normal [facility] Comment on above: Performed By: #### S CAN CBC, HS TROP, LACTIC, CK, CMP ####[address] Glucose [Mass/Vol] 376 mg/dL High 70-100 [facility] Comment on above: Result Comment: [facility] Glucose Reference Range is dependent on time and content of last meal. Glucose of more than 200 mg/dL in a nonstressed, ambulatory subject supports the diagnosis of Diabetes Mellitus. ADA recommended reference range Performed By: #### S CAN CBC, HS TROP, LACTIC, CK, CMP ####[address] Potassium [Moles/Vol] 4.2 mmol/L Normal 3.5-5.1 [facility] Comment on above: Performed By: #### S CAN CBC, HS TROP, LACTIC, CK, CMP ####[place] [id number] [facility] Protein [Mass/Vol] 7.1 g/dL Normal 6.4-8.9 [facility] Comment on above: Performed By: #### S CAN CBC, HS TROP, LACTIC, CK, CMP ####[address] Sodium [Moles/Vol] 131 mmol/L Low 136-145 [facility] Comment on above: Performed By: #### S CAN CBC, HS TROP, LACTIC, CK, CMP ####[place] [address] [facility] Urea nitrogen [Mass/Vol] 31 mg/dL High 05-23 [facility] Comment on above: Performed By: #### S CAN CBC, HS TROP, LACTIC, CK, CMP ####[place] [address] [facility] Creatine Kinaseon 05-28-2023 CK [Catalytic activity/Vol] 137 U/L Normal [facility] Comment on above: Performed By: #### S CAN CBC, HS TROP, LACTIC, CK, CMP ####[place] [id number] [facility] Dipstick and Microscopicon 0 05-28-2023 Appearance (U) Clear Normal Clear [facility] Comment on above: Order Comment: Name Collection Type:: Straight Catheter Performed By: #### C UU, ADDONUAPLUS ####[address] Bacteria,Urine None Seen Normal None Seen [facility] Comment on above: Order Comment: Name Collection Type:: Straight Catheter Performed By: #### C UU, ADDONUAPLUS ####[address] Bilirubin,Urine Negative Normal Negative [facility] Comment on above: Order Comment: Name Collection Type:: Straight Catheter Performed By: #### C UU, ADDONUAPLUS ####[place] [address] [facility] Color (U) Yellow Normal Yellow [facility] Comment on above: Order Comment: Name Collection Type:: Straight Catheter Performed By: #### C UU, ADDONUAPLUS ####[place] [id number] [facility] Glucose Ql (U) 500 mg/dL High Normal [facility] Comment on above: Order Comment: Name Collection Type:: Straight Catheter Performed By: #### C UU, ADDONUAPLUS ####[address] [address] [facility] Hyaline Casts,Urine 0-8 Normal 0-8 [facility] Comment on above: Order Comment: Name Collection Type:: Straight Catheter Result Comment: PERF ORMED BY:[place] [address] [place], [place] [phone] MEDICAL DIRECTORXAVIER AGARWAL M.D. Performed By: #### C UU, ADDONUAPLUS ####[place] [address] [facility] Ketones Ql (U) Trace High Negative [facility] Comment on above: Order Comment: Name Collection Type:: Straight Catheter Performed By: #### C UU, ADDONUAPLUS ####[place] [id number] [facility] Leukocyte esterase Test strip Ql (U) 1+ High Negative [facility] Comment on above: Order Comment: Name Collection Type:: Straight Catheter Performed By: #### C UU, ADDONUAPLUS ####[place] [address] [facility] Nitrite,Urine Negative Normal Negative [facility] Comment on above: Order Comment: Name Collection Type:: Straight Catheter Performed By: #### C UU, ADDONUAPLUS ####[place] [id number] [facility] Occult Blood,Urine Negative Normal Negative [facility] Comment on above: Order Comment: Name Collection Type:: Straight Catheter Result Comment: PERF ORMED BY:[address] [place] [place], [place] [phone] MEDICAL DIRECTORXAVIER AGARWAL M.D. Performed By: #### C UU, ADDONUAPLUS ####[place] [id number] [facility] pH (U) 5.5 [pH] Normal 5.0-9.0 [facility] Comment on above: Order Comment: Name Collection Type:: Straight Catheter Performed By: #### C UU, ADDONUAPLUS ####[address] [address] [place] Protein (U) [Mass/Vol] 30 mg/dL High Negative [facility] Comment on above: Order Comment: Name Collection Type:: Straight Catheter Performed By: #### C UU, ADDONUAPLUS ####[address] RBC LM.HPF (Urine sed) [#/Area] 0 /[HPF] Normal 0-4 [facility] Comment on above: Order Comment: Name Collection Type:: Straight Catheter Performed By: #### C UU, ADDONUAPLUS ####[address] Specificy [place],Urine 1.017 Normal 1.001-1.03 0 [facility] Comment on above: Order Comment: Name Collection Type:: Straight Catheter Performed By: #### C UU, ADDONUAPLUS ####[address] Squamous Epithelial Cell,Urine 1-2 Normal 0-2 [facility] Comment on above: Order Comment: Name Collection Type:: Straight Catheter Performed By: #### C UU, ADDONUAPLUS ####[address] Urobilinogen,Urine Normal Normal Normal [facility] Comment on above: Order Comment: Name Collection Type:: Straight Catheter Performed By: #### C UU, ADDONUAPLUS ####[address] WBC,Urine 5-9 High 0-4 [facility] Comment on above: Order Comment: Name Collection Type:: Straight Catheter Performed By: #### C UU, ADDONUAPLUS ####[address] ECG 12 lead ECGon 05-28-2023 ECG 12 lead ECG Normal [facility] ECG 12 lead ECG Normal [facility] Globulin Calc (S) [Mass/Vol] Ordered By: Paige Aburto on 05-28-2023 Globulin (S) [Mass/Vol] 2.9 g/dL [facility] Glucose Poct Glucometerson 0 05-28-2023 Commemt1 Glu2: Cleaned Meter Normal [facility] Comment on above: Result Comment: PERF ORMED BY:[address] [place], [place] [phone] MEDICAL LILIYA AGARWAL M.D. Performed By: #### G LULS ####Point of Care testing, Glucose [Mass/Vol] 82 mg/dL Normal [facility] Comment on above: Result Comment: [place] [facility] Glucose Reference Range is dependent on time and content of last meal. Glucose of more than 200 mg/dL in a nonstressed, ambulatory subject supports the diagnosis of Diabetes Mellitus. Performed By: #### G LULS ####Point of Care testing, Commemt1 Normal [facility] Comment on above: Result Comment: Glu2 : WILL NOTIFY DR/DARVINERFORMED BY:[place] [address] [place], [place] [phone] MEDICAL LILIYA AGARWAL M.D. Performed By: #### G LULS ####Point of Care testing, Glucose [Mass/Vol] 52 mg/dL Off scale low [facility] Comment on above: Result Comment: [place] [facility] Glucose Reference Range is dependent on time and content of last meal. Glucose of more than 200 mg/dL in a nonstressed, ambulatory subject supports the diagnosis of Diabetes Mellitus. Performed By: #### G LULS ####Point of Care testing, Commemt1 Glu2: Cleaned Meter Normal [facility] Comment on above: Result Comment: PERF ORMED BY:[address] [place] [place] [phone] MEDICAL LILIYA AGARWAL M.D. Performed By: #### G LULS ####Point of Care testing, Glucose [Mass/Vol] 229 mg/dL Normal [facility] Comment on above: Result Comment: [place] Glucose Reference Range is dependent on time and content of last meal. Glucose of more than 200 mg/dL in a nonstressed, ambulatory subject supports the diagnosis of Diabetes Mellitus. Performed By: #### G LULS ####Point of Care testing, Commemt1 Glu2: Cleaned Meter Normal [facility] Comment on above: Result Comment: PERF ORMED BY:[address] [address] [place] [phone] MEDICAL DIRECTORXAVIER AGARWAL M.D. Performed By: #### G LULS ####Point of Care testing, Glucose [Mass/Vol] 263 mg/dL Normal [facility] Comment on above: Result Comment: [place] [facility] Glucose Reference Range is dependent on time and content of last meal. Glucose of more than 200 mg/dL in a nonstressed, ambulatory subject supports the diagnosis of Diabetes Mellitus. Performed By: #### G LULS ####Point of Care testing, Glucose [Mass/Vol] 397 mg/dL Normal [facility] Comment on above: Result Comment: [place] [facility] Glucose Reference Range is dependent on time and content of last meal. Glucose of more than 200 mg/dL in a nonstressed, ambulatory subject supports the diagnosis of Diabetes Mellitus.PERFORMED BY:[address] [address] [place] [phone] MEDICAL DIRECTORXAVIER AGARWAL M.D. Performed By: #### G LULS ####Point of Care testing, Ketones Auto test strip (U) [Mass/Vol]Ordered By: Hamzah Burnham on 05-28-2023 Ketones (U) [Mass/Vol] Trace Negative [facility] - UrinalysisOrder ed By: Hamzah Burnham on 05-28-2023 Hyaline casts LM Ql (Urine sed) 0-8 [LPF] 0-8 [facility] Lactate [Moles/volume] in Se rum or PlasmaOrdered By: Hamazh Burnham on 05-28-2023 Lactate [Moles/Vol] 1.5 mmol/L 0.5-2.2 [facility] Lactic Acidon 05-28-2023 Lactate [Moles/Vol] 3.7 mmol/L Off scale high 0.5-2.2 [facility] Comment on above: Result Comment: Crit ical Result : Called to and read back by: ARIES BROOKS at: 05/28/2023 06:58:26 by:[email or web address] BY:[place] [address] [place], [place] [phone] MEDICAL DIRECTORXAVIER AGARWAL M.D. Performed By: #### L ACTIC ####[address] [address] [facility] Lactate [Moles/Vol] 5.8 mmol/L Off scale high 0.5-2.2 [facility] Comment on above: Result Comment: Crit ical Result : Called to and read back by: BHUPINDER COLEMAN at: 05/27/2023 23:12:04 by:[id number] BY:[place] [address] [place], [place] [phone] MEDICAL DIRECTORXAVIER AGARWAL M.D. Performed By: #### S CAN CBC, HS TROP, LACTIC, CK, CMP ####[address] [address] [facility] Lactic Acid Reflexon 023 Lactic Acid Reflex 1.5 mmol/L Normal 0.5-2.2 [facility] Comment on above: Result Comment: PERF ORMED BY:[place] [address] [place], [place] [phone] MEDICAL DIRECTORXAVIER AGARWAL M.D. Performed By: #### L ACTIC RFX ####[address] [address] [facility] Magnesiumon 05-28-2023 Magnesium [Mass/Vol] 1.4 mg/dL Low 1.9-2.7 [facility] Comment on above: Result Comment: PERF ORMED BY:[place] [address] [place], [place] [phone] MEDICAL DIRECTORXAVIER AGARWAL M.D. Performed By: #### M G ####[address] [address] [facility] Nitrite Test strip Ql (U)Ord ered By: Hamzahlacey Burnham on 05-28-2023 Nitrite Ql (U) Negative Negative [facility] Protein Auto test strip (U) [Mass/Vol]Ordered By: Hamzah Burnham on 05-28-2023 Protein (U) [Mass/Vol] 30 mg/dL Negative [facility] Protein [Mass/volume] in Ser um or PlasmaOrdered By: Paige Aburto on 05-28-2023 Protein [Mass/Vol] 6.8 g/dL 6.4-8.[address] [facility] Scan and CBCon 05-28-2023 Basophils (Bld) [#/Vol] 0.0 10*3/uL Normal 0.0-0.2 [facility] Comment on above: Performed By: #### S CAN CBC, HS TROP, LACTIC, CK, CMP ####[address] Basophils/100 WBC (Bld) 0.3 % Normal . [facility] Comment on above: Performed By: #### S CAN CBC, HS TROP, LACTIC, CK, CMP ####[address] Eosinophils (Bld) [#/Vol] 0.0 10*3/uL Normal 0.0-0.45 [facility] Comment on above: Performed By: #### S CAN CBC, HS TROP, LACTIC, CK, CMP ####[address] Eosinophils/100 WBC (Bld) 0.0 % Normal . [facility] Comment on above: Performed By: #### S CAN CBC, HS TROP, LACTIC, CK, CMP ####[address] Erythrocyte distribution width (RBC) [Ratio] 13.5 % Normal 11.9-15.3 [facility] Comment on above: Performed By: #### S CAN CBC, HS TROP, LACTIC, CK, CMP ####[address] Hematocrit (Bld) [Volume fraction] 38.5 % Normal 34.0-46.4 [facility] Comment on above: Performed By: #### S CAN CBC, HS TROP, LACTIC, CK, CMP ####[address] Hemoglobin (Bld) [Mass/Vol] 12.8 g/dL Normal 11.8-15.4 [facility] Comment on above: Performed By: #### S CAN CBC, HS TROP, LACTIC, CK, CMP ####[address] Lymphocytes (Bld) [#/Vol] 0.4 10*3/uL Low 1.00-4.8 [facility] Comment on above: Performed By: #### S CAN CBC, HS TROP, LACTIC, CK, CMP ####[address] Lymphocytes/100 WBC (Bld) 3.1 % Normal . [facility] Comment on above: Performed By: #### S CAN CBC, HS TROP, LACTIC, CK, CMP ####[address] MCH (RBC) [Entitic mass] 31.0 pg Normal 24.7-34.3 [facility] Comment on above: Performed By: #### S CAN CBC, HS TROP, LACTIC, CK, CMP ####[address] MCV (RBC) [Entitic vol] 93.4 fL Normal 80-100 [facility] Comment on above: Performed By: #### S CAN CBC, HS TROP, LACTIC, CK, CMP ####[address] Mean Corpuscular HGB Conc 33.2 g/dL Normal 32.0-35.0 [facility] Comment on above: Performed By: #### S CAN CBC, HS TROP, LACTIC, CK, CMP ####[address] Monocytes (Bld) [#/Vol] 0.2 10*3/uL Normal 0.0-0.8 [facility] Comment on above: Performed By: #### S CAN CBC, HS TROP, LACTIC, CK, CMP ####[address] Monocytes/100 WBC (Bld) 40.58 % High 0.00-20.00 [facility] Comment on above: Result Comment: The predictive value of MDW for identifying sepsis in patients with hematological abnormalities has not been established Performed By: #### S CAN CBC, HS TROP, LACTIC, CK, CMP ####[address] Monocytes/100 WBC (Bld) 1.4 % Normal . [facility] Comment on above: Performed By: #### S CAN CBC, HS TROP, LACTIC, CK, CMP ####[address] Neutrophils (Bld) [#/Vol] 11.2 10*3/uL High 1.8-7.7 [facility] Comment on above: Performed By: #### S CAN CBC, HS TROP, LACTIC, CK, CMP ####[address] Neutrophils/100 WBC (Bld) 95.2 % Normal . [facility] Comment on above: Performed By: #### S CAN CBC, HS TROP, LACTIC, CK, CMP ####[address] NRBC% 0.0 /100{WBC} Normal 0-0.5 [facility] Comment on above: Performed By: #### S CAN CBC, HS TROP, LACTIC, CK, CMP ####[address] Platelet Estimate Normal Normal Normal [facility] Comment on above: Performed By: #### S CAN CBC, HS TROP, LACTIC, CK, CMP ####[address] Platelet mean volume (Bld) [Entitic vol] 7.5 fL Normal 6.3-10.7 [facility] Comment on above: Performed By: #### S CAN CBC, HS TROP, LACTIC, CK, CMP ####[address] Platelet Morphology Normal Normal Normal [facility] Comment on above: Result Comment: PERF ORMED BY:[address] [place], [place] [phone] MEDICAL DIRECTORXAVIER AGARWAL M.D. Performed By: #### S CAN CBC, HS TROP, LACTIC, CK, CMP ####[address] Platelets (Bld) [#/Vol] 264 10*3/uL Normal 150-450 [facility] Comment on above: Performed By: #### S CAN CBC, HS TROP, LACTIC, CK, CMP ####[address] RBC (Bld) [#/Vol] 4.12 10*6/uL Normal 3.60-5.00 [facility] Comment on above: Performed By: #### S CAN CBC, HS TROP, LACTIC, CK, CMP ####[address] RBC morphology finding Nom (Bld) Normal Normal Normal [facility] Comment on above: Performed By: #### S CAN CBC, HS TROP, LACTIC, CK, CMP ####[address] WBC (Bld) [#/Vol] 11.7 10*3/uL High 3.8-11.6 [facility] Comment on above: Performed By: #### S CAN CBC, HS TROP, LACTIC, CK, CMP ####[address] Serum or plasma albumin/glob ulin mass ratioOrdered By: Paige Aburto on 05-28-2023 Albumin/Globulin [Mass ratio] 1.3 {ratio} [facility] Specific gravity Auto test s trip (U) [Rel density]Ordered By: Hamzah Burnham on 05-28-2023 Specific gravity (U) [Rel density] 1.017 1.001-1.03 0 [facility] Squamous epithelial cells de tection in urine sediment by light microscopyOrdered By: Hamzah Burnham on 05-28-2023 Epithelial cells.squamous LM Ql (Urine sed) 1-2 [HPF] 0-2 [facility] Troponin I High Sensitivityo n 05-28-2023 Troponin I High Sensitivity 476.9 pg/mL Off scale high 0.0-15.0 [facility] Comment on above: Result Comment: Crit ical Result : Called to and read back by: ALONSO NELSON at: 05/28/2023 13:02:12 by:RGPERFORMED BY:[place] [address] [place], [place] [phone] MEDICAL DIRECTORXAVIER AGARWAL M.D. Performed By: #### H S TROP ####[place] [id number] [facility] Troponin I High Sensitivity 574.2 pg/mL Off scale high 0.0-15.0 [facility] Comment on above: Result Comment: Crit ical Result : Called to and read back by: ARIES BROOKS at: 05/28/2023 06:55:26 by:RGPERFORMED BY:[place] [address] [place], [place] [phone] MEDICAL DIRECTORXAVIER AGARWAL M.D. Performed By: #### H S TROP ####[place] [id number] [facility] Troponin I High Sensitivity 382.2 pg/mL Off scale high 0.0-15.0 [facility] Comment on above: Result Comment: Crit ical Result : Called to and read back by: CARMINA THURSTON at: 05/28/2023 00:55:39 by:[id number] BY:[place] [address] [place], [place] [phone] MEDICAL DIRECTORXAVIER AGARWAL M.D. Performed By: #### H S TROP ####[id number] [place] [address] [facility] Troponin I High Sensitivity 302.1 pg/mL Off scale high 0.0-15.0 [facility] Comment on above: Result Comment: Crit ical Result : Called to and read back by: LUDIN SCHAEFFER at: 05/27/2023 23:39:53 by:[id number] BY:[facility] [place], [place] [phone] MEDICAL DIRECTORXAVIER AGARWAL M.D. Performed By: #### S CAN CBC, HS TROP, LACTIC, CK, CMP ####[place] [id number] [facility] Troponin I.cardiac [Mass/vol ume] in Serum or Plasma by Detection limit <= 0.01 ng/Ordered By: Paige Aburto on 05-28-2023 Troponin I.cardiac DL <= 0.01 ng/mL [Mass/Vol] 476.9 pg/mL 0.0-15.0 [facility] Comment on above: Critical Result : Ca lled to and read back by: ALONSO NELSON at: 05/28/2023 13:02:12 by:[email or web address] Troponin I.cardiac [Mass/vol ume] in Serum or Plasma by Detection limit <= 0.01 ng/Ordered By: Hamzah Burnham on 05-28-2023 Troponin I.cardiac DL <= 0.01 ng/mL [Mass/Vol] 382.2 pg/mL 0.0-15.0 [facility] Comment on above: Critical Result : Ca lled to and read back by: CARMINA THURSTON at: 05/28/2023 00:55:39 by:[id number] Urine Cultureon 05-28-2023 Bacteria identified Cx Nom (U) No Growth 2 Days PERFORMED BY: [facility] [address] [place] [address] PATHOLOGIST STEREOTYPER XAVIER AGARWAL M.D. Normal [facility] Comment on above: Performed By: #### C UU, ADDONUAPLUS ####[place] [id number] [facility] Urine bacteria detection by automated methodOrdered By: Hamzah Burnham on 05-28-2023 Bacteria Auto Ql (U) None seen None Seen [facility] Urine clarity by refractomet ry automatedOrdered By: Hamzah Burnham on 05-28-2023 Clarity Refractometry automated (U) Clear Clear [facility] Urine culture routineOrdered By: Hamzah Burnham on 05-28-2023 Bacteria identified Cx Nom (U) No Growth 2 Days [facility] Urine glucose measurement by automated test strip (mass/volume)Ordered By: Hamzah Burnham on 05-28-2023 Glucose Auto test strip (U) [Mass/Vol] 500 mg/dL Normal [facility] Urine hemoglobin detection b y automated test stripOrdered By: Hamzah Burnham on 05-28-2023 Hemoglobin Auto test strip Ql (U) Negative Negative [facility] Urine leukocyte esterase det ection by automated test stripOrdered By: Hamzah Burnham on 05-28-2023 Leukocyte esterase Auto test strip Ql (U) 1+ Negative [facility] Urobilinogen Auto test strip (U) [Mass/Vol]Ordered By: Hamzah Burnham on 05-28-2023 Urobilinogen (U) [Mass/Vol] Normal mg/dL Normal [facility] XR shoulder LT min 2V*on XR shoulder LT min 2V* Normal Th e [facility] pH Auto test strip (U)Ordere d By: Hamzah Burnham on 05-28-2023 pH (U) 5.5 [pH] 5.0-9.0 [facility] Alanine aminotransferase [En zymatic activity/volume] in Serum or PlasmaOrdered By: Hamzah Burnham on 05-27-2023 ALT [Catalytic activity/Vol] 13 U/L 7-52 [facility] Albumin [Mass/volume] in Ser um or Plasma by Bromocresol green (BCG) dye binding methoOrdered By: Hamzah Burnham on 05-27-2023 Albumin BCG dye [Mass/Vol] 3.8 g/dL 3.5-5.7 [facility] Alkaline phosphatase [Enzyma tic activity/volume] in Serum or PlasmaOrdered By: Hamzah Burnham on 05-27-2023 ALP [Catalytic activity/Vol] 54 U/L 34-104 [facility] Aspartate aminotransferase [ Enzymatic activity/volume] in Serum or PlasmaOrdered By: Hamzah Burnham on 05-27-2023 AST [Catalytic activity/Vol] 17 U/L 13-39 [facility] Basophils Auto (Bld) [#/Vol] Ordered By: Hamzah Burnham on 05-27-2023 Basophils (Bld) [#/Vol] 0.0 10*3/uL 0.0-0.2 [facility] Basophils/100 WBC Auto (Bld) Ordered By: Hamzah Burnham on 05-27-2023 Basophils/100 WBC (Bld) 0.3 % . [facility] Bilirubin.total [Mass/volume ] in Serum or PlasmaOrdered By: Hamzah Burnham on 05-27-2023 Bilirubin [Mass/Vol] 0.8 mg/dL 0.3-1.0 [facility] Calcium [Mass/volume] in Ser um or PlasmaOrdered By: Hamzah Burnham on 05-27-2023 Calcium [Mass/Vol] 9.1 mg/dL 8.6-10.[address] [facility] Carbon dioxide, total [Moles /volume] in Serum or PlasmaOrdered By: Hamzah Burnham 05-27-2023 CO2 [Moles/Vol] 22.2 mmol/L 21.0-31.0 [facility] Chloride [Moles/volume] in S moriah or PlasmaOrdered By: Hamzah Burnham 05-27-2023 Chloride [Moles/Vol] 93 mmol/L 98-107 [facility] Creatine kinase [Enzymatic a ctivity/volume] in Serum or PlasmaOrdered By: Hamzah Burnham on 05-27-2023 CK [Catalytic activity/Vol] 137 U/L 30-223 [facility] Creatinine [Mass/volume] in Serum or PlasmaOrdered By: Hamzah Burnham on 05-27-2023 Creatinine [Mass/Vol] 1.83 mg/dL 0.60-1.20 [facility] Eosinophils Auto (Bld) [#/Vo l]Ordered By: Hamzah Burnham on 05-27-2023 Eosinophils (Bld) [#/Vol] 0.0 10*3/uL 0.0-0.45 [facility] Eosinophils/100 WBC Auto (Bl d)Ordered By: Hamzah Burnham on 05-27-2023 Eosinophils/100 WBC (Bld) 0.0 % . [facility] Erythrocyte distribution wid th Auto (RBC) [Ratio]Ordered By: Hamzah Burnham on 05-27-2023 Erythrocyte distribution width (RBC) [Ratio] 13.5 % 11.9-15.3 [facility] Globulin Calc (S) [Mass/Vol] Ordered By: Hamzah Burnham on 05-27-2023 Globulin (S) [Mass/Vol] 3.3 g/dL [facility] Glucose Glucometer (BldC) [M ass/Vol]Ordered By: Hamzah Burnham on 05-27-2023 Glucose [Mass/Vol] 397 mg/dL [facility] Comment on above: Random Glucose Refer ence Range is dependent on time and content of last meal. Glucose of more than 200 mg/dL in a nonstressed, ambulatory subject supports the diagnosis of Diabetes Mellitus. Glucose [Mass/volume] in Ser um or PlasmaOrdered By: Hamzah Burnham on 05-27-2023 Glucose [Mass/Vol] 376 mg/dL 70-[address] [facility] Comment on above: ADA recommended refe rence rangeRandom Glucose Reference Range is dependent on time and content of last meal. Glucose of more than 200 mg/dL in a nonstressed, ambulatory subject supports the diagnosis of Diabetes Mellitus. Hematocrit Auto (Bld) [Volum e fraction]Ordered By: Hamzah Burnham on 05-27-2023 Hematocrit (Bld) [Volume fraction] 38.5 % 34.0-46.4 [facility] Hemoglobin [Mass/volume] in BloodOrdered By: Hamzah Burhnam on 05-27-2023 Hemoglobin (Bld) [Mass/Vol] 12.8 g/dL 11.8-15.4 [facility] Lactate [Moles/volume] in Se rum or PlasmaOrdered By: Hamzah Burnham on 05-27-2023 Lactate [Moles/Vol] 5.8 mmol/L 0.5-2.2 [facility] Comment on above: Critical Result : Ca lled to and read back by: BHUPINDER COLEMAN at: 05/27/2023 23:12:04 by:[id number] Leukocytes [#/volume] correc babak for nucleated erythrocytes in Blood by Automated counOrdered By: Hamzah Burnham on 05-27-2023 WBC corrected for nucl RBC Auto (Bld) [#/Vol] 11.7 10*3/uL 3.8-11.6 [facility] Lymphocytes Auto (Bld) [#/Vo l]Ordered By: Hamzah Burnham on 05-27-2023 Lymphocytes (Bld) [#/Vol] 0.4 10*3/uL 1.00-4.8 [facility] Lymphocytes/100 WBC Auto (Bl d)Ordered By: Hamzah Burnham on 05-27-2023 Lymphocytes/100 WBC (Bld) 3.1 % . [facility] MCH Auto (RBC) [Entitic mass ]Ordered By: Hamzah Burnham on 05-27-2023 MCH (RBC) [Entitic mass] 31.0 pg 24.7-34.3 [facility] MCHC Auto (RBC) [Mass/Vol]Or dered By: Hamzah Burnham on 05-27-2023 MCHC (RBC) [Mass/Vol] 33.2 g/dL 32.0-35.0 [facility] MCV Auto (RBC) [Entitic vol] Ordered By: Hamzah Burnham on 05-27-2023 MCV (RBC) [Entitic vol] 93.4 fL 80-100 [facility] Magnesium [Mass/volume] in S moriah or PlasmaOrdered By: Hamzah Burnham on 05-27-2023 Magnesium [Mass/Vol] 1.4 mg/dL 1.9-2.7 [facility] Monocyte distribution width [Entitic volume] in Blood by AutomatedOrdered By: Hamzah Burnham on 05-27-2023 Monocyte distribution width Auto (Bld) [Entitic vol] 40.58 % 0.00-20.00 [facility] Comment on above: The predictive value of MDW for identifying sepsis in patients with hematological abnormalities has not been established Monocytes Auto (Bld) [#/Vol] Ordered By: Hamzah Burnham on 05-27-2023 Monocytes (Bld) [#/Vol] 0.2 10*3/uL 0.0-0.8 [facility] Monocytes/100 WBC Auto (Bld) Ordered By: Hamzah Burnham on 05-27-2023 Monocytes/100 WBC (Bld) 1.4 % . [facility] Neutrophils Auto (Bld) [#/Vo l]Ordered By: Hamzah Burnham on 05-27-2023 Neutrophils (Bld) [#/Vol] 11.2 10*3/uL 1.8-7.7 [facility] Neutrophils/100 WBC Auto (Bl d)Ordered By: Hamzah Burnham on 05-27-2023 Neutrophils/100 WBC (Bld) 95.2 % . [facility] No Panel InformationOrdered By: Hamzah Burnham on 05-27-2023 Estimated GFR (CKD-EPI) 29.715 mL/Min [facility] Creatinine Clearance (Chem 42.25 [facility] Nucleated erythrocytes [Pres ence] in Blood by Automated countOrdered By: Hamzah Burnham on 05-27-2023 Nucleated RBC Auto Ql (Bld) 0.0 /100{WBC} 0-0.5 [facility] Platelet adequacy [Presence] in Blood by Light microscopyOrdered By: Hamzah Burnham on 05-27-2023 Platelets LM Ql (Bld) Normal Normal [facility] Platelet mean volume Auto (B ld) [Entitic vol]Ordered By: Hamzah Burnham on 05-27-2023 Platelet mean volume (Bld) [Entitic vol] 7.5 fL 6.3-10.7 [facility] Platelet morphology finding [Identifier] in BloodOrdered By: Hamzah Burnham on 05-27-2023 Platelet morphology finding Nom (Bld) Normal Normal [facility] Platelets Auto (Bld) [#/Vol] Ordered By: Hamzah Burnham on 05-27-2023 Platelets (Bld) [#/Vol] 264 10*3/uL 150-450 [facility] Potassium [Moles/volume] in Serum or PlasmaOrdered By: Hamzah Burnham on 05-27-2023 Potassium [Moles/Vol] 4.2 mmol/L 3.5-5.1 [facility] Protein [Mass/volume] in Ser um or PlasmaOrdered By: Hamzah Burnham on 05-27-2023 Protein [Mass/Vol] 7.1 g/dL 6.4-8.[address] [facility] RBC Auto (Bld) [#/Vol]Ordere d By: Hamzah Burnham on 05-27-2023 RBC (Bld) [#/Vol] 4.12 10*6/uL 3.60-5.00 [facility] RBC morphologyOrdered By: Hilton Burnham on 05-27-2023 RBC morphology finding Nom (Bld) Normal Normal [facility] Serum or plasma albumin/glob ulin mass ratioOrdered By: Hamzah Burnham on 05-27-2023 Albumin/Globulin [Mass ratio] 1.2 {ratio} [facility] Serum or plasma anion gap de terminationOrdered By: Hamzah Burnham on 05-27-2023 Anion gap [Moles/Vol] 20.0 mmol/L 6.0-15.0 [facility] Sodium [Moles/volume] in Ser um or PlasmaOrdered By: Hamzah Burnham on 05-27-2023 Sodium [Moles/Vol] 131 mmol/L 136-[address] [facility] Urea nitrogen [Mass/volume] in Serum or PlasmaOrdered By: Hamzah Burnham on 05-27-2023 Urea nitrogen [Mass/Vol] 31 mg/dL 7-25 [facility] WBC Auto (Bld) [#/Vol]Ordere d By: Hamzah Burnham on 05-27-2023 WBC (Bld) [#/Vol] 11.7 10*3/uL 3.8-11.6 [facility] Basic Metabolic Panelon 04-29 Anion gap [Moles/Vol] 13.0 mmol/L Normal 6.0-15.0 [facility] Comment on above: Performed By: #### B MP ####[facility] [id number] [place] [address] [facility] Calcium [Mass/Vol] 9.3 mg/dL Normal 8.6-10.3 [facility] Comment on above: Result Comment: PERF ORMED BY:[place] [address] [place], [place] [phone] MEDICAL DIRECTORXAVIER AGARWAL M.D. Performed By: #### B MP ####[place] [id number] [facility] Chloride [Moles/Vol] 95 mmol/L Low 98-107 [facility] Comment on above: Performed By: #### B MP ####[place] [id number] [facility] CO2 [Moles/Vol] 33.0 mmol/L High 21.0-31.0 [facility] Comment on above: Performed By: #### B MP ####[place] [id number] [facility] Creatinine [Mass/Vol] 1.71 mg/dL High 0.60-1.20 [facility] Comment on above: Performed By: #### B MP ####[place] [id number] [facility] GFR/1.73 sq M.predicted MDRD (S/P/Bld) [Vol rate/Area] 32.235 mL/min/{1.73_m2} Normal [facility] Comment on above: Performed By: #### B MP ####[place] [id number] [facility] Glucose [Mass/Vol] 315 mg/dL High 70-100 [facility] Comment on above: Result Comment: [place] Glucose Reference Range is dependent on time and content of last meal. Glucose of more than 200 mg/dL in a nonstressed, ambulatory subject supports the diagnosis of Diabetes Mellitus. ADA recommended reference range Performed By: #### B MP ####[place] [id number] [facility] Potassium [Moles/Vol] 4.0 mmol/L Normal 3.5-5.1 [facility] Comment on above: Performed By: #### B MP ####[place] [id number] [facility] Sodium [Moles/Vol] 137 mmol/L Normal 136-145 [facility] Comment on above: Performed By: #### B MP ####[facility] [id number] [place] [id number] [facility] Urea nitrogen [Mass/Vol] 45 mg/dL High 7-25 [facility] Comment on above: Performed By: #### B MP ####[facility] [id number] [place] [id number] [facility] Calcium [Mass/volume] in Ser um or PlasmaOrdered By: Ari Fernández on 05-12-2023 Calcium [Mass/Vol] 9.3 mg/dL 8.6-10.[address] [facility] Carbon dioxide, total [Moles /volume] in Serum or PlasmaOrdered By: Ari Fernández on 05-12-2023 CO2 [Moles/Vol] 33.0 mmol/L 21.0-31.0 [facility] Chloride [Moles/volume] in S moriah or PlasmaOrdered By: Ari Fernández on 05-12-2023 Chloride [Moles/Vol] 95 mmol/L 98-107 [facility] Creatinine [Mass/volume] in Serum or PlasmaOrdered By: Ari Fernández 05-12-2023 Creatinine [Mass/Vol] 1.71 mg/dL 0.60-1.20 [facility] Glucose [Mass/volume] in Ser um or PlasmaOrdered By: Ari Fernández 05-12-2023 Glucose [Mass/Vol] 315 mg/dL 70-[address] [facility] Comment on above: ADA recommended refe rence rangeRandom Glucose Reference Range is dependent on time and content of last meal. Glucose of more than 200 mg/dL in a nonstressed, ambulatory subject supports the diagnosis of Diabetes Mellitus. No Panel InformationOrdered By: Ari Fernández on 05-12-2023 Estimated GFR (CKD-EPI) 32.235 mL/Min [facility] Creatinine Clearance (Chem N/A [facility] Potassium [Moles/volume] in Serum or PlasmaOrdered By: Ari Fernández 05-12-2023 Potassium [Moles/Vol] 4.0 mmol/L 3.5-5.1 [facility] Serum or plasma anion gap de terminationOrdered By: Ari Fernández on 05-12-2023 Anion gap [Moles/Vol] 13.0 mmol/L 6.0-15.0 [facility] Sodium [Moles/volume] in Ser um or PlasmaOrdered By: Ari Fernández on 05-12-2023 Sodium [Moles/Vol] 137 mmol/L 136-[address] [facility] Urea nitrogen [Mass/volume] in Serum or PlasmaOrdered By: Ari Fernández on 05-12-2023 Urea nitrogen [Mass/Vol] 45 mg/dL 7-25 [facility] Alanine aminotransferase [En zymatic activity/volume] in Serum or PlasmaOrdered By: Hamzah Burnham on 05-10-2023 ALT [Catalytic activity/Vol] 13 U/L 7-52 [facility] Albumin [Mass/volume] in Ser um or Plasma by Bromocresol green (BCG) dye binding methoOrdered By: Hamzah Burnham on 05-10-2023 Albumin BCG dye [Mass/Vol] 3.7 g/dL 3.5-5.7 [facility] Alkaline phosphatase [Enzyma tic activity/volume] in Serum or PlasmaOrdered By: Hamzah Burnham on 05-10-2023 ALP [Catalytic activity/Vol] 66 U/L 34-104 [facility] Aspartate aminotransferase [ Enzymatic activity/volume] in Serum or PlasmaOrdered By: Hamzah Burnham on 05-10-2023 AST [Catalytic activity/Vol] 18 U/L 13-39 [facility] Automated erythrocytes count in urine sediment (number/area)Ordered By: Hamzah Burnham on 05-10-2023 RBC Auto (Urine sed) [#/Area] 5-9 [HPF] 0-4 [facility] Automated leukocytes count i n urine sediment (number/area)Ordered By: Hamzah Burnham on 05-10-2023 WBC Auto (Urine sed) [#/Area] 10-19 [HPF] 0-4 [facility] Basophils Auto (Bld) [#/Vol] Ordered By: Hamzah Burnham on 05-10-2023 Basophils (Bld) [#/Vol] 0.1 10*3/uL 0.0-0.2 [facility] Basophils/100 WBC Auto (Bld) Ordered By: Hamzah Burnham on 05-10-2023 Basophils/100 WBC (Bld) 0.9 % . [facility] Bilirubin Test strip Ql (U)O rdered By: Hamzah Burnham on 05-10-2023 Bilirubin Ql (U) Negative Negative [facility] Bilirubin.total [Mass/volume ] in Serum or PlasmaOrdered By: Hamzah Burnham on 05-10-2023 Bilirubin [Mass/Vol] 0.5 mg/dL 0.3-1.0 [facility] Calcium [Mass/volume] in Ser um or PlasmaOrdered By: Hamzah Burnham on 05-10-2023 Calcium [Mass/Vol] 9.2 mg/dL 8.6-10.[address] [facility] Carbon dioxide, total [Moles /volume] in Serum or PlasmaOrdered By: Hamzah Burnham on 05-10-2023 CO2 [Moles/Vol] 34.0 mmol/L 21.0-31.0 [facility] Chloride [Moles/volume] in S moriah or PlasmaOrdered By: Hamzah Burnham on 05-10-2023 Chloride [Moles/Vol] 94 mmol/L 98-107 [facility] Color Auto (U)Ordered By: Hilton Burnham on 05-10-2023 Color (U) Yellow Yellow [facility] Complete Blood Count Auto Di ffon 05-10-2023 Basophils (Bld) [#/Vol] 0.1 10*3/uL Normal 0.0-0.2 [facility] Comment on above: Result Comment: PERF ORMED BY:[facility] [place], [place] [phone] MEDICAL DIRECTORXAVIER AGARWAL M.D. Performed By: #### C MP, CBC, PHOS, MG, TSH3 ####[address] [address] [facility] Basophils/100 WBC (Bld) 0.9 % Normal . [facility] Comment on above: Performed By: #### C MP, CBC, PHOS, MG, TSH3 ####[address] Eosinophils (Bld) [#/Vol] 0.3 10*3/uL Normal 0.0-0.45 [facility] Comment on above: Performed By: #### C MP, CBC, PHOS, MG, TSH3 ####[address] Eosinophils/100 WBC (Bld) 3.0 % Normal . [facility] Comment on above: Performed By: #### C MP, CBC, PHOS, MG, TSH3 ####[address] Erythrocyte distribution width (RBC) [Ratio] 13.6 % Normal 11.9-15.3 [facility] Comment on above: Performed By: #### C MP, CBC, PHOS, MG, TSH3 ####[address] Hematocrit (Bld) [Volume fraction] 37.6 % Normal 34.0-46.4 [facility] Comment on above: Performed By: #### C MP, CBC, PHOS, MG, TSH3 ####[address] Hemoglobin (Bld) [Mass/Vol] 12.6 g/dL Normal 11.8-15.4 [facility] Comment on above: Performed By: #### C MP, CBC, PHOS, MG, TSH3 ####[address] Lymphocytes (Bld) [#/Vol] 1.4 10*3/uL Normal 1.00-4.8 [facility] Comment on above: Performed By: #### C MP, CBC, PHOS, MG, TSH3 ####[address] Lymphocytes/100 WBC (Bld) 15.2 % Normal . [facility] Comment on above: Performed By: #### C MP, CBC, PHOS, MG, TSH3 ####[address] MCH (RBC) [Entitic mass] 30.9 pg Normal 24.7-34.3 [facility] Comment on above: Performed By: #### C MP, CBC, PHOS, MG, TSH3 ####[address] MCV (RBC) [Entitic vol] 92.2 fL Normal 80-100 [facility] Comment on above: Performed By: #### C MP, CBC, PHOS, MG, TSH3 ####[address] Mean Corpuscular HGB Conc 33.6 g/dL Normal 32.0-35.0 [facility] Comment on above: Performed By: #### C MP, CBC, PHOS, MG, TSH3 ####[address] Monocytes (Bld) [#/Vol] 0.8 10*3/uL Normal 0.0-0.8 [facility] Comment on above: Performed By: #### C MP, CBC, PHOS, MG, TSH3 ####[address] Monocytes/100 WBC (Bld) 21.20 % High 0.00-20.00 [facility] Comment on above: Result Comment: For adults in ED, MDW > 20.0 may be associated with a higher risk of sepsis during the first 12 hrs of hospital admission Performed By: #### C MP, CBC, PHOS, MG, TSH3 ####[address] Monocytes/100 WBC (Bld) 8.2 % Normal . [facility] Comment on above: Performed By: #### C MP, CBC, PHOS, MG, TSH3 ####[address] Neutrophils (Bld) [#/Vol] 6.9 10*3/uL Normal 1.8-7.7 [facility] Comment on above: Performed By: #### C MP, CBC, PHOS, MG, TSH3 ####[address] Neutrophils/100 WBC (Bld) 72.7 % Normal . [facility] Comment on above: Performed By: #### C MP, CBC, PHOS, MG, TSH3 ####[address] NRBC% 0.2 /100{WBC} Normal 0-0.5 [facility] Comment on above: Performed By: #### C MP, CBC, PHOS, MG, TSH3 ####[address] Platelet mean volume (Bld) [Entitic vol] 7.4 fL Normal 6.3-10.7 [facility] Comment on above: Performed By: #### C MP, CBC, PHOS, MG, TSH3 ####[address] Platelets (Bld) [#/Vol] 283 10*3/uL Normal 150-450 [facility] Comment on above: Performed By: #### C MP, CBC, PHOS, MG, TSH3 ####[address] RBC (Bld) [#/Vol] 4.08 10*6/uL Normal 3.60-5.00 [facility] Comment on above: Performed By: #### C MP, CBC, PHOS, MG, TSH3 ####[address] WBC (Bld) [#/Vol] 9.4 10*3/uL Normal 3.8-11.6 [facility] Comment on above: Performed By: #### C MP, CBC, PHOS, MG, TSH3 ####[address] Comprehensive Metabolic Pane carlos 05-10-2023 Albumin [Mass/Vol] 3.7 g/dL Normal 3.5-5.7 [facility] Comment on above: Performed By: #### C MP, CBC, PHOS, MG, TSH3 ####[address] Albumin/Globulin [Mass ratio] 1.3 {ratio} Normal [facility] Comment on above: Performed By: #### C MP, CBC, PHOS, MG, TSH3 ####[address] ALP [Catalytic activity/Vol] 66 U/L Normal 34-104 [facility] Comment on above: Performed By: #### C MP, CBC, PHOS, MG, TSH3 ####[address] ALT [Catalytic activity/Vol] 13 U/L Normal 7-52 [facility] Comment on above: Performed By: #### C MP, CBC, PHOS, MG, TSH3 ####[address] Anion gap [Moles/Vol] 11.6 mmol/L Normal 6.0-15.0 [facility] Comment on above: Performed By: #### C MP, CBC, PHOS, MG, TSH3 ####[address] AST [Catalytic activity/Vol] 18 U/L Normal 13-39 [facility] Comment on above: Performed By: #### C MP, CBC, PHOS, MG, TSH3 ####[address] Bilirubin [Mass/Vol] 0.5 mg/dL Normal 0.3-1.0 [facility] Comment on above: Performed By: #### C MP, CBC, PHOS, MG, TSH3 ####[address] Calcium [Mass/Vol] 9.2 mg/dL Normal 8.6-10.3 [facility] Comment on above: Performed By: #### C MP, CBC, PHOS, MG, TSH3 ####[place] [id number] [address] Chloride [Moles/Vol] 94 mmol/L Low 98-107 [facility] Comment on above: Performed By: #### C MP, CBC, PHOS, MG, TSH3 ####[address] CO2 [Moles/Vol] 34.0 mmol/L High 21.0-31.0 [facility] Comment on above: Performed By: #### C MP, CBC, PHOS, MG, TSH3 ####[address] Creatinine [Mass/Vol] 1.71 mg/dL High 0.60-1.20 [facility] Comment on above: Performed By: #### C MP, CBC, PHOS, MG, TSH3 ####[address] Creatinine Clr Calc Pharmacy 45.39 Normal [facility] Comment on above: Performed By: #### C MP, CBC, PHOS, MG, TSH3 ####[address] GFR/1.73 sq M.predicted MDRD (S/P/Bld) [Vol rate/Area] 32.235 mL/min/{1.73_m2} Normal [facility] Comment on above: Performed By: #### C MP, CBC, PHOS, MG, TSH3 ####[address] Globulin (S) [Mass/Vol] 2.9 g/dL Normal [facility] Comment on above: Performed By: #### C MP, CBC, PHOS, MG, TSH3 ####[address] Glucose [Mass/Vol] 143 mg/dL High 70-100 [facility] Comment on above: Result Comment: [facility] Glucose Reference Range is dependent on time and content of last meal. Glucose of more than 200 mg/dL in a nonstressed, ambulatory subject supports the diagnosis of Diabetes Mellitus. ADA recommended reference range Performed By: #### C MP, CBC, PHOS, MG, TSH3 ####[address] Potassium [Moles/Vol] 3.6 mmol/L Normal 3.5-5.1 [facility] Comment on above: Performed By: #### C MP, CBC, PHOS, MG, TSH3 ####[address] Protein [Mass/Vol] 6.6 g/dL Normal 6.4-8.9 [facility] Comment on above: Performed By: #### C MP, CBC, PHOS, MG, TSH3 ####[address] Sodium [Moles/Vol] 136 mmol/L Normal 136-145 [facility] Comment on above: Performed By: #### C MP, CBC, PHOS, MG, TSH3 ####[address] Urea nitrogen [Mass/Vol] 38 mg/dL High 7-25 [facility] Comment on above: Performed By: #### C MP, CBC, PHOS, MG, TSH3 ####[address] Creatinine [Mass/volume] in Serum or PlasmaOrdered By: Hamzah Burnham on 05-10-2023 Creatinine [Mass/Vol] 1.71 mg/dL 0.60-1.20 [facility] Dipstick and Microscopicon 0 05-10-2023 Appearance (U) Clear Normal Clear [facility] Comment on above: Order Comment: Name Collection Type:: Straight Catheter Performed By: #### C UU, ADDONUAPLUS ####[address] Bacteria,Urine None Seen Normal None Seen [facility] Comment on above: Order Comment: Name Collection Type:: Straight Catheter Performed By: #### C UU, ADDONUAPLUS ####[address] [address] [facility] Bilirubin,Urine Negative Normal Negative [facility] Comment on above: Order Comment: Name Collection Type:: Straight Catheter Performed By: #### C UU, ADDONUAPLUS ####[address] [address] [facility] Color (U) Yellow Normal Yellow [facility] Comment on above: Order Comment: Name Collection Type:: Straight Catheter Performed By: #### C UU, ADDONUAPLUS ####[address] [address] [facility] Glucose Ql (U) Normal Normal Normal [facility] Comment on above: Order Comment: Name Collection Type:: Straight Catheter Performed By: #### C UU, ADDONUAPLUS ####[address] [address] [facility] Hyaline Casts,Urine None Seen Normal 0-8 [facility] Comment on above: Order Comment: Name Collection Type:: Straight Catheter Result Comment: PERF ORMED BY:[address] [place], [place] [phone] MEDICAL DIRECTORXAVIER AGARWAL M.D. Performed By: #### C UU, ADDONUAPLUS ####[address] [address] [facility] Ketones Ql (U) Negative Normal Negative [facility] Comment on above: Order Comment: Name Collection Type:: Straight Catheter Performed By: #### C UU, ADDONUAPLUS ####[address] [address] [facility] Leukocyte esterase Test strip Ql (U) 4+ High Negative [facility] Comment on above: Order Comment: Name Collection Type:: Straight Catheter Performed By: #### C UU, ADDONUAPLUS ####[address] [address] [facility] Nitrite,Urine Negative Normal Negative [facility] Comment on above: Order Comment: Name Collection Type:: Straight Catheter Performed By: #### C UU, ADDONUAPLUS ####[address] [address] [facility] Occult Blood,Urine Negative Normal Negative [facility] Comment on above: Order Comment: Name Collection Type:: Straight Catheter Result Comment: PERF ORMED BY:[place] [address] [address] [place], [place] [phone] MEDICAL LILIYA AGARWAL M.D. Performed By: #### C UU, ADDONUAPLUS ####[address] [address] [facility] pH (U) 6.5 [pH] Normal 5.0-9.0 [facility] Comment on above: Order Comment: Name Collection Type:: Straight Catheter Performed By: #### C UU, ADDONUAPLUS ####[address] [address] [facility] Protein,Urine Negative Normal Negative [facility] Comment on above: Order Comment: Name Collection Type:: Straight Catheter Performed By: #### C UU, ADDONUAPLUS ####[address] [address] [facility] RBC,Urine 5-9 High 0-4 [facility] Comment on above: Order Comment: Name Collection Type:: Straight Catheter Performed By: #### C UU, ADDONUAPLUS ####[address] [address] [facility] Specificy [place],Urine 1.015 Normal 1.001-1.03 0 [facility] Comment on above: Order Comment: Name Collection Type:: Straight Catheter Performed By: #### C UU, ADDONUAPLUS ####[address] [address] [facility] Squamous Epithelial Cell,Urine 3-4 High 0-2 [facility] Comment on above: Order Comment: Name Collection Type:: Straight Catheter Performed By: #### C UU, ADDONUAPLUS ####[address] [address] [facility] Urobilinogen,Urine Normal Normal Normal [facility] Comment on above: Order Comment: Name Collection Type:: Straight Catheter Performed By: #### C URiley, ADDONUAPLUS ####[facility] [id number] [place] [address] [facility] WBC,Urine 10-19 High 0-4 [facility] Comment on above: Order Comment: Name Collection Type:: Straight Catheter Performed By: #### C UU, ADDONUAPLUS ####[facility] [id number] [place] [address] [facility] ECG 12 lead ECGon 05-10-2023 ECG 12 lead ECG Normal [facility] Eosinophils Auto (Bld) [#/Vo l]Ordered By: Hamzah Burnham on 05-10-2023 Eosinophils (Bld) [#/Vol] 0.3 10*3/uL 0.0-0.45 [facility] Eosinophils/100 WBC Auto (Bl d)Ordered By: Hamzah Burnham on 05-10-2023 Eosinophils/100 WBC (Bld) 3.0 % . [facility] Erythrocyte distribution wid th Auto (RBC) [Ratio]Ordered By: Hamzah Burnham on 05-10-2023 Erythrocyte distribution width (RBC) [Ratio] 13.6 % 11.9-15.3 [facility] Globulin Calc (S) [Mass/Vol] Ordered By: Hamzah Burnham on 05-10-2023 Globulin (S) [Mass/Vol] 2.9 g/dL [facility] Glucose Glucometer (BldC) [M ass/Vol]Ordered By: Hamzah Burnham on 05-10-2023 Glucose [Mass/Vol] 143 mg/dL [facility] Comment on above: Random Glucose Refer ence Range is dependent on time and content of last meal. Glucose of more than 200 mg/dL in a nonstressed, ambulatory subject supports the diagnosis of Diabetes Mellitus. Glucose Poct Glucometerson 0 05-10-2023 Commemt1 Glu2: Cleaned Meter Normal [facility] Comment on above: Result Comment: PERF ORMED BY:[facility] [place], [place] [phone] MEDICAL DIRECTORXAVIER AGARWAL M.D. Performed By: #### G LUROSARIO ####Point of Care testing, Glucose [Mass/Vol] 143 mg/dL Normal [facility] Comment on above: Result Comment: [place] [facility] Glucose Reference Range is dependent on time and content of last meal. Glucose of more than 200 mg/dL in a nonstressed, ambulatory subject supports the diagnosis of Diabetes Mellitus. Performed By: #### G LUROSARIO ####Point of Care testing, Glucose [Mass/volume] in Ser um or PlasmaOrdered By: Hamzah Burnham on 05-10-2023 Glucose [Mass/Vol] 143 mg/dL 70-[address] [facility] Comment on above: ADA recommended refe rence rangeRandom Glucose Reference Range is dependent on time and content of last meal. Glucose of more than 200 mg/dL in a nonstressed, ambulatory subject supports the diagnosis of Diabetes Mellitus. Hematocrit Auto (Bld) [Volum e fraction]Ordered By: Hamzah Burnham on 05-10-2023 Hematocrit (Bld) [Volume fraction] 37.6 % 34.0-46.4 [facility] Hemoglobin [Mass/volume] in BloodOrdered By: Hamzah Burnham on 05-10-2023 Hemoglobin (Bld) [Mass/Vol] 12.6 g/dL 11.8-15.4 [facility] Ketones Auto test strip (U) [Mass/Vol]Ordered By: Hamzah Burnham on 05-10-2023 Ketones (U) [Mass/Vol] Negative Negative [facility] - UrinalysisOrder ed By: Hamzah Burnham on 05-10-2023 Hyaline casts LM Ql (Urine sed) None seen [LPF] 0-8 [facility] Leukocytes [#/volume] correc babak for nucleated erythrocytes in Blood by Automated counOrdered By: Hamzah Burnham on 05-10-2023 WBC corrected for nucl RBC Auto (Bld) [#/Vol] 9.4 10*3/uL 3.8-11.6 [facility] Lymphocytes Auto (Bld) [#/Vo l]Ordered By: Hamzah Burnham on 05-10-2023 Lymphocytes (Bld) [#/Vol] 1.4 10*3/uL 1.00-4.8 [facility] Lymphocytes/100 WBC Auto (Bl d)Ordered By: Hamzah Burnham on 05-10-2023 Lymphocytes/100 WBC (Bld) 15.2 % . [facility] MCH Auto (RBC) [Entitic mass ]Ordered By: Hamzah Burnham on 05-10-2023 MCH (RBC) [Entitic mass] 30.9 pg 24.7-34.3 [facility] MCHC Auto (RBC) [Mass/Vol]Or dered By: Hamzah Burnham on 05-10-2023 MCHC (RBC) [Mass/Vol] 33.6 g/dL 32.0-35.0 [facility] MCV Auto (RBC) [Entitic vol] Ordered By: Hamzah Burnham on 05-10-2023 MCV (RBC) [Entitic vol] 92.2 fL 80-100 [facility] Magnesiumon 05-10-2023 Magnesium [Mass/Vol] 1.9 mg/dL Normal 1.9-2.7 [facility] Comment on above: Performed By: #### C MP, CBC, PHOS, MG, TSH3 ####[facility] [id number] [place] [address] [facility] Magnesium [Mass/volume] in S moriah or PlasmaOrdered By: Hamzah Burnham on 05-10-2023 Magnesium [Mass/Vol] 1.9 mg/dL 1.9-2.7 [facility] Monocyte distribution width [Entitic volume] in Blood by AutomatedOrdered By: Hamzah Burnham on 05-10-2023 Monocyte distribution width Auto (Bld) [Entitic vol] 21.20 % 0.00-20.00 [facility] Comment on above: For adults in ED, MD W > 20.0 may be associated with a higher risk of sepsis during the first 12 hrs of hospital admission Monocytes Auto (Bld) [#/Vol] Ordered By: Hamzah Burnham on 05-10-2023 Monocytes (Bld) [#/Vol] 0.8 10*3/uL 0.0-0.8 [facility] Monocytes/100 WBC Auto (Bld) Ordered By: Hamzah Burnham on 05-10-2023 Monocytes/100 WBC (Bld) 8.2 % . [facility] Neutrophils Auto (Bld) [#/Vo l]Ordered By: Hamzah Burnham on 05-10-2023 Neutrophils (Bld) [#/Vol] 6.9 10*3/uL 1.8-7.7 [facility] Neutrophils/100 WBC Auto (Bl d)Ordered By: Hamzah Burnham on 05-10-2023 Neutrophils/100 WBC (Bld) 72.7 % . [facility] Nitrite Test strip Ql (U)Ord ered By: Hamzah Burnham on 05-10-2023 Nitrite Ql (U) Negative Negative [facility] No Panel InformationOrdered By: Hamzah Burnham on 05-10-2023 Estimated GFR (CKD-EPI) 32.235 mL/Min [facility] Creatinine Clearance (Chem 45.39 [facility] Bedside Glucose Comment Glu2: cleaned meter [facility] Nucleated erythrocytes [Pres ence] in Blood by Automated countOrdered By: Hamzah Burnham on 05-10-2023 Nucleated RBC Auto Ql (Bld) 0.2 /100{WBC} 0-0.5 [facility] Phosphate [Mass/volume] in S moriah or PlasmaOrdered By: Hamzah Burnham on 05-10-2023 Phosphate [Mass/Vol] 3.9 mg/dL 3.7-7.2 [facility] Phosphoruson 05-10-2023 Phosphate [Mass/Vol] 3.9 mg/dL Normal 3.7-7.2 [facility] Comment on above: Performed By: #### C MP, CBC, PHOS, MG, TSH3 ####[facility] [id number] [place] [id number] [facility] Platelet mean volume Auto (B ld) [Entitic vol]Ordered By: Hamzah Burnham on 05-10-2023 Platelet mean volume (Bld) [Entitic vol] 7.4 fL 6.3-10.7 [facility] Platelets Auto (Bld) [#/Vol] Ordered By: Hamzah Burnham on 05-10-2023 Platelets (Bld) [#/Vol] 283 10*3/uL 150-450 [facility] Potassium [Moles/volume] in Serum or PlasmaOrdered By: Hamzah Burnham on 05-10-2023 Potassium [Moles/Vol] 3.6 mmol/L 3.5-5.1 [facility] Protein Auto test strip (U) [Mass/Vol]Ordered By: Hamzah Burnham on 05-10-2023 Protein (U) [Mass/Vol] Negative Negative [facility] Protein [Mass/volume] in Ser um or PlasmaOrdered By: Hamzah Burnham on 05-10-2023 Protein [Mass/Vol] 6.6 g/dL 6.4-8.[address] [facility] RBC Auto (Bld) [#/Vol]Ordere d By: Hamzah Burnham on 05-10-2023 RBC (Bld) [#/Vol] 4.08 10*6/uL 3.60-5.00 [facility] Serum or plasma albumin/glob ulin mass ratioOrdered By: Hamzah Burnham on 05-10-2023 Albumin/Globulin [Mass ratio] 1.3 {ratio} [facility] Serum or plasma anion gap de terminationOrdered By: Hamzah Burnham on 05-10-2023 Anion gap [Moles/Vol] 11.6 mmol/L 6.0-15.0 [facility] Sodium [Moles/volume] in Ser um or PlasmaOrdered By: Hamzah Burnham on 05-10-2023 Sodium [Moles/Vol] 136 mmol/L 136-[address] [facility] Specific gravity Auto test s trip (U) [Rel density]Ordered By: Hamzah Burnham on 05-10-2023 Specific gravity (U) [Rel density] 1.015 1.001-1.03 0 [facility] Squamous epithelial cells de tection in urine sediment by light microscopyOrdered By: Hamzah Burnham on 05-10-2023 Epithelial cells.squamous LM Ql (Urine sed) 3-4 [HPF] 0-2 [facility] Thyroid Stimulating Hormoneo n 05-10-2023 TSH Qn 4.47 m[IU]/L Normal 0.45-5.33 [facility] Comment on above: Result Comment: PERF ORMED BY:[place] [id number] [place], [place] [phone] MEDICAL DIRECTORXAVIER AGARWAL M.D. Performed By: #### C MP, CBC, PHOS, MG, TSH3 ####[facility] [id number] [place] [id number] [facility] Thyrotropin [Units/volume] i n Serum or PlasmaOrdered By: Hamzah Burnham on 05-10-2023 TSH Qn 4.47 m[IU]/L 0.45-5.33 [facility] Urea nitrogen [Mass/volume] in Serum or PlasmaOrdered By: Hamzah Burnham on 05-10-2023 Urea nitrogen [Mass/Vol] 38 mg/dL 7- [facility] Urine Cultureon 05-10-2023 Bacteria identified Cx Nom (U) Urine Culture Results 75,000 colonies/ml Mixed Bacterial Skin Contaminants 2 Days PERFORMED BY: [facility] [address] [facility] CENTERKings [place] [id number] PATHOLOGIST STEREOTYPER XAVIER AGARWAL M.D. Normal [facility] Comment on above: Performed By: #### C UU, ADDONUAPLUS ####[place] [address] [place] [id number] [facility] Urine bacteria detection by automated methodOrdered By: Hamzah Burnham on 05-10-2023 Bacteria Auto Ql (U) None seen None Seen [facility] Urine clarity by refractomet ry automatedOrdered By: Hamzah Burnham on 05-10-2023 Clarity Refractometry automated (U) Clear Clear [facility] Urine culture routineOrdered By: Hamzah Burnham on 05-10-2023 Bacteria identified Cx Nom (U) [facility] Urine glucose measurement by automated test strip (mass/volume)Ordered By: Hamzah Burnham on 05-10-2023 Glucose Auto test strip (U) [Mass/Vol] Normal mg/dL Normal [facility] Urine hemoglobin detection b y automated test stripOrdered By: Hamzah Burnham on 05-10-2023 Hemoglobin Auto test strip Ql (U) Negative Negative [facility] Urine leukocyte esterase det ection by automated test stripOrdered By: Hamzah Burnham on 05-10-2023 Leukocyte esterase Auto test strip Ql (U) 4+ Negative [facility] Urobilinogen Auto test strip (U) [Mass/Vol]Ordered By: Hamzah Burnham on 05-10-2023 Urobilinogen (U) [Mass/Vol] Normal mg/dL Normal [facility] WBC Auto (Bld) [#/Vol]Ordere d By: Hamzah Burnham on 05-10-2023 WBC (Bld) [#/Vol] 9.4 10*3/uL 3.8-11.[address] [facility] XR chest 1V portableon 05-10 XR chest 1V portable Normal [facility] pH Auto test strip (U)Ordere d By: Hamzah Burnham on 05-10-2023 pH (U) 6.5 [pH] 5.0-9.0 [facility] Basic Metabolic Panelon 04-29 Anion gap [Moles/Vol] 10.7 mmol/L Normal 6.0-15.0 [facility] Comment on above: Performed By: #### Ru Null, BMP ####[address] Calcium [Mass/Vol] 9.2 mg/dL Normal 8.6-10.3 [facility] Comment on above: Performed By: #### Ru Null, BMP ####[place] [id number] [facility] Chloride [Moles/Vol] 94 mmol/L Low 98-107 [facility] Comment on above: Performed By: #### Ru Null, BMP ####[place] [address] [facility] CO2 [Moles/Vol] 36.9 mmol/L High 21.0-31.0 [facility] Comment on above: Performed By: #### Ru Null, BMP ####[place] [address] [facility] Creatinine [Mass/Vol] 1.76 mg/dL High 0.60-1.20 [facility] Comment on above: Performed By: #### Ru Null, BMP ####[place] [address] [facility] Creatinine Clr Calc Pharmacy 43.91 Normal [facility] Comment on above: Performed By: #### M G, BMP ####[place] [address] [place] [address] [facility] GFR/1.73 sq M.predicted MDRD (S/P/Bld) [Vol rate/Area] 31.139 mL/min/{1.73_m2} Normal [facility] Comment on above: Performed By: #### M G, BMP ####[address] [address] [facility] Glucose [Mass/Vol] 110 mg/dL High 70-100 [facility] Comment on above: Result Comment: [facility] Glucose Reference Range is dependent on time and content of last meal. Glucose of more than 200 mg/dL in a nonstressed, ambulatory subject supports the diagnosis of Diabetes Mellitus. ADA recommended reference range Performed By: #### M G, BMP ####[place] [address] [place] [address] [facility] Potassium [Moles/Vol] 3.6 mmol/L Normal 3.5-5.1 [facility] Comment on above: Performed By: #### M G, BMP ####[place] [address] [facility] Sodium [Moles/Vol] 138 mmol/L Normal 136-145 [facility] Comment on above: Performed By: #### M G, BMP ####[address] [address] [facility] Urea nitrogen [Mass/Vol] 35 mg/dL High 7-25 [facility] Comment on above: Performed By: #### Ru G, BMP ####[place] [address] [place] [address] [facility] Calcium [Mass/volume] in Ser um or PlasmaOrdered By: Ari Fernández on 05-09-2023 Calcium [Mass/Vol] 9.2 mg/dL 8.6-10.[address] [facility] Carbon dioxide, total [Moles /volume] in Serum or PlasmaOrdered By: Ari Fernández on 05-09-2023 CO2 [Moles/Vol] 36.9 mmol/L 21.0-31.0 [facility] Chloride [Moles/volume] in S moriah or PlasmaOrdered By: Ari Fernández on 05-09-2023 Chloride [Moles/Vol] 94 mmol/L 98-107 [facility] Creatinine [Mass/volume] in Serum or PlasmaOrdered By: Ari Fernández on 05-09-2023 Creatinine [Mass/Vol] 1.76 mg/dL 0.60-1.20 [facility] Ferritinon 05-09-2023 Ferritin [Mass/Vol] 60.9 ng/mL Normal 11.0-306.8 [facility] Comment on above: Performed By: #### V [id number], MANDA, FE and TIBC ####[facility] [address] [place] [id number] [facility] Ferritin [Mass/volume] in Se rum or PlasmaOrdered By: Sydnie Milian on 05-09-2023 Ferritin [Mass/Vol] 60.9 ng/mL 11.0-306.8 [facility] Folate [Mass/volume] in Seru m or PlasmaOrdered By: Sydnie Milian on 05-09-2023 Folate [Mass/Vol] 19.7 ng/mL >5.9 [facility] Comment on above: Folate reference ran ge: >5.9 ng/mlThe WHO technical consultation on folate and vitamin [id number] has determined that folate concentrations lessthan 4 ng/ml are considered deficient. Glucose Glucometer (BldC) [M ass/Vol]Ordered By: David Lane on 05-09-2023 Glucose [Mass/Vol] 157 mg/dL [facility] Comment on above: Random Glucose Refer ence Range is dependent on time and content of last meal. Glucose of more than 200 mg/dL in a nonstressed, ambulatory subject supports the diagnosis of Diabetes Mellitus. Glucose Poct Glucometerson 0 05-09-2023 Glucose [Mass/Vol] 157 mg/dL Normal [facility] Comment on above: Result Comment: [place] [facility] Glucose Reference Range is dependent on time and content of last meal. Glucose of more than 200 mg/dL in a nonstressed, ambulatory subject supports the diagnosis of Diabetes Mellitus.PERFORMED BY:[facility] [place] [address] [place], [place] [phone] MEDICAL DIRECTORXAVIER AGARWAL M.D. Performed By: #### G BENSON ####Point of Care testing, Glucose [Mass/volume] in Ser um or PlasmaOrdered By: Ari Fernández on 05-09-2023 Glucose [Mass/Vol] 110 mg/dL 70-[address] [facility] Comment on above: ADA recommended refe rence rangeRandom Glucose Reference Range is dependent on time and content of last meal. Glucose of more than 200 mg/dL in a nonstressed, ambulatory subject supports the diagnosis of Diabetes Mellitus. Iron [Mass/volume] in Serum or PlasmaOrdered By: Sydnie Milian on 05-09-2023 Iron [Mass/Vol] 49 ug/dL 50-212 [facility] Iron and TIBC Profileon 04-29 % Iron Saturation 17.5 % Low 20-50 [facility] Comment on above: Performed By: #### V [id number], MANDA, FE and TIBC ####[place] [address] [place] [address] [facility] Iron [Mass/Vol] 49 ug/dL Low 50-212 [facility] Comment on above: Performed By: #### V [id number], MANDA, FE and TIBC ####[address] [address] [facility] Total Iron Binding Capacity 280 ug/dL Normal 255-450 [facility] Comment on above: Performed By: #### V [id number], MANDA, FE and TIBC ####[place] [address] [place] [address] [facility] Transferrin [Mass/Vol] 200 mg/dL Low 203-362 [facility] Comment on above: Performed By: #### V [id number], MANDA, FE and TIBC ####[address] [address] [facility] Iron binding capacity [Mass/ volume] in Serum or PlasmaOrdered By: Sydnie Milian on 07-11-2023 Iron binding capacity [Mass/Vol] 280 ug/dL 255-450 [facility] Iron saturation [Mass Fracti on] in Serum or PlasmaOrdered By: Sydnie Milian on 05-09-2023 Iron saturation [Mass fraction] 17.5 % 20-50 [facility] Magnesiumon 05-09-2023 Magnesium [Mass/Vol] 1.9 mg/dL Normal 1.9-2.7 [facility] Comment on above: Result Comment: PERF ORMED BY:[facility] [place], [place] [phone] MEDICAL DIRECTORXAVIER AGARWAL M.D. Performed By: #### [place], [facility] ####[facility] [place] [address] [place] Magnesium [Mass/volume] in S moriah or PlasmaOrdered By: Sydnie Milian on 05-09-2023 Magnesium [Mass/Vol] 1.9 mg/dL 1.9-2.7 [facility] No Panel InformationOrdered By: Ari Fernández on 05-09-2023 Estimated GFR (CKD-EPI) 31.139 mL/Min [facility] Creatinine Clearance (Chem 43.91 [facility] Potassium [Moles/volume] in Serum or PlasmaOrdered By: Ari Fernández on 05-09-2023 Potassium [Moles/Vol] 3.6 mmol/L 3.5-5.1 [facility] Serum or plasma anion gap de terminationOrdered By: Ari Fernández on 05-09-2023 Anion gap [Moles/Vol] 10.7 mmol/L 6.0-15.0 [facility] Sodium [Moles/volume] in Ser um or PlasmaOrdered By: Ari Fernández on 05-09-2023 Sodium [Moles/Vol] 138 mmol/L 136-[address] [facility] Transferrin [Mass/volume] in Serum or PlasmaOrdered By: Sydnie Milian on 05-09-2023 Transferrin [Mass/Vol] 200 mg/dL 203-362 [facility] Urea nitrogen [Mass/volume] in Serum or PlasmaOrdered By: Ari Fernández on 05-09-2023 Urea nitrogen [Mass/Vol] 35 mg/dL 7-25 [facility] Vit. B12/Folate Profileon Cobalamin (Vitamin B12) [Mass/Vol] 428 pg/mL Normal 180-914 [facility] Comment on above: Performed By: #### V [id number], MANDA, FE and TIBC ####[place] [address] [facility] Folate 19.7 ng/mL Normal >5.9 [facility] Comment on above: Result Comment: [place] te reference range: >5.9 ng/ml The WHO technical consultation on folate and vitamin b12 deficiencies has determined that folate concentrations less than 4 ng/ml are considered deficient.PERFORMED BY:[address] [place]ERONIMODANIEL[place], [place] [phone] MEDICAL DIRECTORXAVIER AGARWAL M.D. Performed By: #### V [id number], MANDA, FE and TIBC ####[address] Vitamin B12 ser/plasOrdered By: Sydnie Milian on 05-09-2023 Cobalamin (Vitamin B12) [Mass/Vol] 428 pg/mL 180-914 [facility] Basic Metabolic Panelon 04-29 Anion gap [Moles/Vol] 10.4 mmol/L Normal 6.0-15.0 [facility] Comment on above: Performed By: #### B MP ####[place] [address] [facility] Calcium [Mass/Vol] 9.2 mg/dL Normal 8.6-10.3 [facility] Comment on above: Performed By: #### B MP ####[address] Chloride [Moles/Vol] 96 mmol/L Low 98-107 [facility] Comment on above: Performed By: #### B MP ####[address] CO2 [Moles/Vol] 37.3 mmol/L High 21.0-31.0 [facility] Comment on above: Performed By: #### B MP ####[address] [address] [facility] Creatinine [Mass/Vol] 1.74 mg/dL High 0.60-1.20 [facility] Comment on above: Performed By: #### B MP ####[address] [address] [facility] Creatinine Clr Calc Pharmacy 44.49 Normal [facility] Comment on above: Result Comment: PERF ORMED BY:[address] [place], [place] [phone] MEDICAL DIRECTORXAVIER AGARWAL M.D. Performed By: #### B MP ####[place] [address] [facility] GFR/1.73 sq M.predicted MDRD (S/P/Bld) [Vol rate/Area] 31.569 mL/min/{1.73_m2} Normal [facility] Comment on above: Performed By: #### B MP ####[place] [address] [facility] Glucose [Mass/Vol] 162 mg/dL High 70-100 [facility] Comment on above: Result Comment: [place] Glucose Reference Range is dependent on time and content of last meal. Glucose of more than 200 mg/dL in a nonstressed, ambulatory subject supports the diagnosis of Diabetes Mellitus. ADA recommended reference range Performed By: #### B MP ####[place] [address] [facility] Potassium [Moles/Vol] 3.7 mmol/L Normal 3.5-5.1 [facility] Comment on above: Performed By: #### B MP ####[place] [address] [facility] Sodium [Moles/Vol] 140 mmol/L Normal 136-145 [facility] Comment on above: Performed By: #### B MP ####[place] [address] [facility] Urea nitrogen [Mass/Vol] 34 mg/dL High 7-25 [facility] Comment on above: Performed By: #### B MP ####[address] [address] [place] Glucose Poct Glucometerson 0 05-08-2023 Glucose [Mass/Vol] 151 mg/dL Normal [facility] Comment on above: Result Comment: [place] Glucose Reference Range is dependent on time and content of last meal. Glucose of more than 200 mg/dL in a nonstressed, ambulatory subject supports the diagnosis of Diabetes Mellitus.PERFORMED BY:[address] [place], [place] [phone] MEDICAL DIRECTORXAVIER AGARWAL M.D. Performed By: #### G BENSON ####Point of Care testing, Glucose [Mass/Vol] 148 mg/dL Normal [facility] Comment on above: Result Comment: [facility] Glucose Reference Range is dependent on time and content of last meal. Glucose of more than 200 mg/dL in a nonstressed, ambulatory subject supports the diagnosis of Diabetes Mellitus.PERFORMED BY:[address] [place], [place] [phone] MEDICAL DIRECTORXAVIER AGARWAL M.D. Performed By: #### G LULS ####Point of Care testing, Basic Metabolic Panelon 07-0 Anion gap [Moles/Vol] 10.9 mmol/L Normal 6.0-15.0 [facility] Comment on above: Performed By: #### [place], BMP ####[address] [address] [place] Calcium [Mass/Vol] 8.9 mg/dL Normal 8.6-10.3 [facility] Comment on above: Performed By: #### Ru Null, BMP ####[address] [address] [facility] Chloride [Moles/Vol] 96 mmol/L Low 98-107 [facility] Comment on above: Performed By: #### Ru Null, BMP ####[address] [address] [place] CO2 [Moles/Vol] 33.8 mmol/L High 21.0-31.0 [facility] Comment on above: Performed By: #### Ru Null, BMP ####[place] [address] [facility] Creatinine [Mass/Vol] 1.78 mg/dL High 0.60-1.20 [facility] Comment on above: Performed By: #### Ru Null, BMP ####[place] [address] [facility] Creatinine Clr Calc Pharmacy 43.80 Normal [facility] Comment on above: Performed By: #### Ru Null, BMP ####[place] [address] [facility] GFR/1.73 sq M.predicted MDRD (S/P/Bld) [Vol rate/Area] 30.720 mL/min/{1.73_m2} Normal [facility] Comment on above: Performed By: #### Ru Null, BMP ####[address] Glucose [Mass/Vol] 219 mg/dL High 70-100 [facility] Comment on above: Result Comment: [facility] Glucose Reference Range is dependent on time and content of last meal. Glucose of more than 200 mg/dL in a nonstressed, ambulatory subject supports the diagnosis of Diabetes Mellitus. ADA recommended reference range Performed By: #### Ru G, BMP ####[place] [address] [facility] Potassium [Moles/Vol] 3.7 mmol/L Normal 3.5-5.1 [facility] Comment on above: Performed By: #### Ru G, BMP ####[place] [address] [facility] Sodium [Moles/Vol] 137 mmol/L Normal 136-145 [facility] Comment on above: Performed By: #### Ru G, BMP ####[place] [address] [facility] Urea nitrogen [Mass/Vol] 35 mg/dL High 7-25 [facility] Comment on above: Performed By: #### M G, BMP ####[facility] [place] [address] [place] Glucose Glucometer (dC) [M ass/Vol]Ordered By: David Lane on 05-07-2023 Glucose [Mass/Vol] 125 mg/dL [facility] Comment on above: Random Glucose Refer ence Range is dependent on time and content of last meal. Glucose of more than 200 mg/dL in a nonstressed, ambulatory subject supports the diagnosis of Diabetes Mellitus. Glucose Poct Glucometerson 0 05-07-2023 Glucose [Mass/Vol] 113 mg/dL Normal [facility] Comment on above: Result Comment: [place] Glucose Reference Range is dependent on time and content of last meal. Glucose of more than 200 mg/dL in a nonstressed, ambulatory subject supports the diagnosis of Diabetes Mellitus.PERFORMED BY:[place] [address] [address] [place], [place] [phone] MEDICAL DIRECTORXAVIER AGARWAL M.D. Performed By: #### G LULS ####Point of Care testing, Glucose [Mass/Vol] 125 mg/dL Normal [facility] Comment on above: Result Comment: [facility] Glucose Reference Range is dependent on time and content of last meal. Glucose of more than 200 mg/dL in a nonstressed, ambulatory subject supports the diagnosis of Diabetes Mellitus.PERFORMED BY:[place] [address] [place], [place] [phone] MEDICAL LILIYA AGARWAL M.D. Performed By: #### G LULS ####Point of Care testing, Commemt1 Glu2: Cleaned Meter Normal [facility] Comment on above: Result Comment: PERF ORMED BY:[place] [address] [address] [place], [place] [phone] MEDICAL LILIYA AGARWAL M.D. Performed By: #### G LULS ####Point of Care testing, Glucose [Mass/Vol] 180 mg/dL Normal [facility] Comment on above: Result Comment: [place] Glucose Reference Range is dependent on time and content of last meal. Glucose of more than 200 mg/dL in a nonstressed, ambulatory subject supports the diagnosis of Diabetes Mellitus. Performed By: #### G LULS ####Point of Care testing, Glucose [Mass/Vol] 189 mg/dL Normal [facility] Comment on above: Result Comment: [place] om Glucose Reference Range is dependent on time and content of last meal. Glucose of more than 200 mg/dL in a nonstressed, ambulatory subject supports the diagnosis of Diabetes Mellitus.PERFORMED BY:[address] [place]ost[place], [place] [phone] MEDICAL DIRECTORXAVIER AGARWAL M.D. Performed By: #### G LULS ####Point of Care testing, Magnesiumon 05-07-2023 Magnesium [Mass/Vol] 1.9 mg/dL Normal 1.9-2.7 [facility] Comment on above: Result Comment: PERF ORMED BY:[place] [address] [place], [place] [phone] MEDICAL DIRECTORXAVIER AGARWAL M.D. Performed By: #### [place], [facility] ####[place] [id number] [facility] No Panel InformationOrdered By: David Lane on 05-07-2023 Bedside Glucose Comment Glu2: cleaned meter [facility] Basic Metabolic Panelon Anion gap [Moles/Vol] 10.4 mmol/L Normal 6.0-15.0 [facility] Comment on above: Performed By: #### B MP ####[address] [address] [facility] Calcium [Mass/Vol] 9.2 mg/dL Normal 8.6-10.3 [facility] Comment on above: Performed By: #### B MP ####[place] [address] [facility] Chloride [Moles/Vol] 99 mmol/L Normal 98-107 [facility] Comment on above: Performed By: #### B MP ####[place] [place] [address] [facility] CO2 [Moles/Vol] 33.2 mmol/L High 21.0-31.0 [facility] Comment on above: Performed By: #### B MP ####[address] [address] [facility] Creatinine [Mass/Vol] 1.48 mg/dL High 0.60-1.20 [facility] Comment on above: Performed By: #### B MP ####[address] [address] [facility] Creatinine Clr Calc Pharmacy 52.68 Normal [facility] Comment on above: Result Comment: PERF ORMED BY:[address] [place], [place] [phone] MEDICAL LILIYA AGARWAL M.D. Performed By: #### B MP ####[place] [id number] [facility] GFR/1.73 sq M.predicted MDRD (S/P/Bld) [Vol rate/Area] 38.336 mL/min/{1.73_m2} Normal [facility] Comment on above: Performed By: #### B MP ####[address] [address] [facility] Glucose [Mass/Vol] 141 mg/dL High 70-100 [facility] Comment on above: Result Comment: [place] Glucose Reference Range is dependent on time and content of last meal. Glucose of more than 200 mg/dL in a nonstressed, ambulatory subject supports the diagnosis of Diabetes Mellitus. ADA recommended reference range Performed By: #### B MP ####[address] [address] [facility] Potassium [Moles/Vol] 3.6 mmol/L Normal 3.5-5.1 [facility] Comment on above: Performed By: #### B MP ####[address] [address] [facility] Sodium [Moles/Vol] 139 mmol/L Normal 136-145 [facility] Comment on above: Performed By: #### B MP ####[facility] [place] [address] [facility] Urea nitrogen [Mass/Vol] 29 mg/dL High 05-23 [facility] Comment on above: Performed By: #### B MP ####[facility] [place] [address] [facility] Glucose Poct Glucometerson 0 05-06-2023 Glucose [Mass/Vol] 220 mg/dL Normal [facility] Comment on above: Result Comment: [facility] Glucose Reference Range is dependent on time and content of last meal. Glucose of more than 200 mg/dL in a nonstressed, ambulatory subject supports the diagnosis of Diabetes Mellitus.PERFORMED BY:[address] [place], [place] [phone] MEDICAL DIRECTORXAVIER AGARWAL M.D. Performed By: #### G LULS ####Point of Care testing, Glucose [Mass/Vol] 60 mg/dL Off scale low [facility] Comment on above: Result Comment: [facility] Glucose Reference Range is dependent on time and content of last meal. Glucose of more than 200 mg/dL in a nonstressed, ambulatory subject supports the diagnosis of Diabetes Mellitus.PERFORMED BY:[place] [address] [place], [place] [phone] MEDICAL DIRECTORXAVIER AGARWAL M.D. Performed By: #### G LULS ####Point of Care testing, Glucose [Mass/Vol] 137 mg/dL Normal [facility] Comment on above: Result Comment: [facility] Glucose Reference Range is dependent on time and content of last meal. Glucose of more than 200 mg/dL in a nonstressed, ambulatory subject supports the diagnosis of Diabetes Mellitus.PERFORMED BY:[address] [place], [place] [phone] MEDICAL DIRECTORXAVIER AGARWAL M.D. Performed By: #### G LULS ####Point of Care testing, A1C with Estimated Average G jung 05-05-2023 Glucose [Mass/Vol] 183 mg/dL Normal [facility] Comment on above: Result Comment: PERF ORMED BY:[address] [place] [id number] MEDICAL DIRECTORXAVIER AGARWAL M.D. Performed By: #### B MP, MG, CBC, A1C WTH eA ####[address] [address] [facility] HbA1c (Bld) [Mass fraction] 8.0 % High 4.3-5.6 [facility] Comment on above: Result Comment: Incr eased risk for diabetes: 5.7 - 6.4 diabetes: >6.4 glycemic control for adults with diabetes: <7.0 Performed By: #### B MP, MG, CBC, A1C WTH eA ####[address] [address] [facility] Basic Metabolic Panelon 07-0 Anion gap [Moles/Vol] 8.8 mmol/L Normal 6.0-15.0 [facility] Comment on above: Performed By: #### B MP, MG, CBC, A1C WTH eA ####[address] [address] [facility] Calcium [Mass/Vol] 9.2 mg/dL Normal 8.6-10.3 [facility] Comment on above: Performed By: #### B MP, MG, CBC, A1C WTH eA ####[address] [address] [facility] Chloride [Moles/Vol] 104 mmol/L Normal 98-107 [facility] Comment on above: Performed By: #### B MP, MG, CBC, A1C WTH eA ####[address] [address] [facility] CO2 [Moles/Vol] 31.9 mmol/L High 21.0-31.0 [facility] Comment on above: Performed By: #### B MP, MG, CBC, A1C WTH eA ####[place] [id number] [facility] Creatinine [Mass/Vol] 1.39 mg/dL High 0.60-1.20 [facility] Comment on above: Performed By: #### B MP, MG, CBC, A1C WTH eA ####[address] Creatinine Clr Calc Pharmacy 56.89 Normal [facility] Comment on above: Performed By: #### B MP, MG, CBC, A1C WTH eA ####[address] GFR/1.73 sq M.predicted MDRD (S/P/Bld) [Vol rate/Area] 41.334 mL/min/{1.73_m2} Normal [facility] Comment on above: Performed By: #### B MP, MG, CBC, A1C WTH eA ####[address] Glucose [Mass/Vol] 124 mg/dL High 70-100 [facility] Comment on above: Result Comment: [place] Glucose Reference Range is dependent on time and content of last meal. Glucose of more than 200 mg/dL in a nonstressed, ambulatory subject supports the diagnosis of Diabetes Mellitus. ADA recommended reference range Performed By: #### B MP, MG, CBC, A1C WTH eA ####[address] Potassium [Moles/Vol] 3.7 mmol/L Normal 3.5-5.1 [facility] Comment on above: Performed By: #### B MP, MG, CBC, A1C WTH eA ####[address] Sodium [Moles/Vol] 141 mmol/L Normal 136-145 [facility] Comment on above: Performed By: #### B MP, MG, CBC, A1C WTH eA ####[address] Urea nitrogen [Mass/Vol] 27 mg/dL High 7-25 [facility] Comment on above: Performed By: #### B MP, MG, CBC, A1C WTH eA ####[address] Basophils Auto (Bld) [#/Vol] Ordered By: Davina Grimes on 05-05-2023 Basophils (Bld) [#/Vol] 0.1 10*3/uL 0.0-0.2 [facility] Basophils/100 WBC Auto (Bld) Ordered By: Davina Grimes on 05-05-2023 Basophils/100 WBC (Bld) 1.0 % . [facility] Complete Blood Count Auto Di ffon 05-05-2023 Basophils (Bld) [#/Vol] 0.1 10*3/uL Normal 0.0-0.2 [facility] Comment on above: Result Comment: PERF ORMED BY:[address] [place], [place] [phone] MEDICAL DIRECTORXAVIER AGARWAL M.D. Performed By: #### B MP, MG, CBC, A1C WTH eA ####[address] Basophils/100 WBC (Bld) 1.0 % Normal . [facility] Comment on above: Performed By: #### B MP, MG, CBC, A1C WTH eA ####[address] Eosinophils (Bld) [#/Vol] 0.3 10*3/uL Normal 0.0-0.45 [facility] Comment on above: Performed By: #### B MP, MG, CBC, A1C WTH eA ####[address] Eosinophils/100 WBC (Bld) 3.9 % Normal . [facility] Comment on above: Performed By: #### B MP, MG, CBC, A1C WTH eA ####[address] Erythrocyte distribution width (RBC) [Ratio] 13.6 % Normal 11.9-15.3 [facility] Comment on above: Performed By: #### B MP, MG, CBC, A1C WTH eA ####[address] Hematocrit (Bld) [Volume fraction] 33.0 % Low 34.0-46.4 [facility] Comment on above: Performed By: #### B MP, MG, CBC, A1C WTH eA ####[address] Hemoglobin (Bld) [Mass/Vol] 11.2 g/dL Low 11.8-15.4 [facility] Comment on above: Performed By: #### B MP, MG, CBC, A1C WTH eA ####[address] Lymphocytes (Bld) [#/Vol] 1.8 10*3/uL Normal 1.00-4.8 [facility] Comment on above: Performed By: #### B MP, MG, CBC, A1C WTH eA ####[address] Lymphocytes/100 WBC (Bld) 23.4 % Normal . [facility] Comment on above: Performed By: #### B MP, MG, CBC, A1C WTH eA ####[address] MCH (RBC) [Entitic mass] 31.5 pg Normal 24.7-34.3 [facility] Comment on above: Performed By: #### B MP, MG, CBC, A1C WTH eA ####[address] MCV (RBC) [Entitic vol] 93.3 fL Normal 80-100 [facility] Comment on above: Performed By: #### B MP, MG, CBC, A1C WTH eA ####[address] Mean Corpuscular HGB Conc 33.8 g/dL Normal 32.0-35.0 [facility] Comment on above: Performed By: #### B MP, MG, CBC, A1C WTH eA ####[address] Monocytes (Bld) [#/Vol] 0.6 10*3/uL Normal 0.0-0.8 [facility] Comment on above: Performed By: #### B MP, MG, CBC, A1C WTH eA ####[address] Monocytes/100 WBC (Bld) 8.2 % Normal . [facility] Comment on above: Performed By: #### B MP, MG, CBC, A1C WTH eA ####[address] Neutrophils (Bld) [#/Vol] 4.8 10*3/uL Normal 1.8-7.7 [facility] Comment on above: Performed By: #### B MP, MG, CBC, A1C WTH eA ####[address] Neutrophils/100 WBC (Bld) 63.5 % Normal . [facility] Comment on above: Performed By: #### B MP, MG, CBC, A1C WTH eA ####[address] NRBC% 0.2 /100{WBC} Normal 0-0.5 [facility] Comment on above: Performed By: #### B MP, MG, CBC, A1C WTH eA ####[address] Platelet mean volume (Bld) [Entitic vol] 7.9 fL Normal 6.3-10.7 [facility] Comment on above: Performed By: #### B MP, MG, CBC, A1C WTH eA ####[address] Platelets (Bld) [#/Vol] 240 10*3/uL Normal 150-450 [facility] Comment on above: Performed By: #### B MP, MG, CBC, A1C WTH eA ####[address] RBC (Bld) [#/Vol] 3.54 10*6/uL Low 3.60-5.00 [facility] Comment on above: Performed By: #### B MP, MG, CBC, A1C WTH eA ####[address] WBC (Bld) [#/Vol] 7.6 10*3/uL Normal 3.8-11.6 [facility] Comment on above: Performed By: #### B MP, MG, CBC, A1C WTH eA ####[address] ECH echo transthoracicon ECH echo transthoracic Normal [facility] Eosinophils Auto (Bld) [#/Vo l]Ordered By: Davina Grimes on 05-05-2023 Eosinophils (Bld) [#/Vol] 0.3 10*3/uL 0.0-0.45 [facility] Eosinophils/100 WBC Auto (Bl d)Ordered By: Davina Grimes on 05-05-2023 Eosinophils/100 WBC (Bld) 3.9 % . [facility] Erythrocyte distribution wid th Auto (RBC) [Ratio]Ordered By: Davina Grimes on 05-05-2023 Erythrocyte distribution width (RBC) [Ratio] 13.6 % 11.9-15.3 [facility] Glucose Poct Glucometerson 0 05-05-2023 Glucose [Mass/Vol] 220 mg/dL Normal [facility] Comment on above: Result Comment: [facility] Glucose Reference Range is dependent on time and content of last meal. Glucose of more than 200 mg/dL in a nonstressed, ambulatory subject supports the diagnosis of Diabetes Mellitus.PERFORMED BY:[address] [place], [place] [phone] MEDICAL DIRECTORXAVIER AGARWAL M.D. Performed By: #### G LULS ####Point of Care testing, Glucose [Mass/Vol] 76 mg/dL Normal [facility] Comment on above: Result Comment: [facility] Glucose Reference Range is dependent on time and content of last meal. Glucose of more than 200 mg/dL in a nonstressed, ambulatory subject supports the diagnosis of Diabetes Mellitus.PERFORMED BY:[place] [address] [address] [place], [place] [phone] MEDICAL LILIYA AGARWAL M.D. Performed By: #### G LULS ####Point of Care testing, Glucose [Mass/Vol] 64 mg/dL Normal [facility] Comment on above: Result Comment: [facility] Glucose Reference Range is dependent on time and content of last meal. Glucose of more than 200 mg/dL in a nonstressed, ambulatory subject supports the diagnosis of Diabetes Mellitus.PERFORMED BY:[place] [address] [place], [place] [phone] MEDICAL LILIYA AGARWAL M.D. Performed By: #### G LULS ####Point of Care testing, Glucose [Mass/Vol] 148 mg/dL Normal [facility] Comment on above: Result Comment: [facility] Glucose Reference Range is dependent on time and content of last meal. Glucose of more than 200 mg/dL in a nonstressed, ambulatory subject supports the diagnosis of Diabetes Mellitus.PERFORMED BY:[place] [address] [place], [place] [phone] MEDICAL LILIYA AGARWAL M.D. Performed By: #### G LULS ####Point of Care testing, Glucose [Mass/Vol] 137 mg/dL Normal [facility] Comment on above: Result Comment: [facility] Glucose Reference Range is dependent on time and content of last meal. Glucose of more than 200 mg/dL in a nonstressed, ambulatory subject supports the diagnosis of Diabetes Mellitus.PERFORMED BY:[place] [address] [place], [place] [phone] MEDICAL LILIYA AGARWAL M.D. Performed By: #### G LULS ####Point of Care testing, Commemt1 Glu2: Cleaned Meter Normal [facility] Comment on above: Result Comment: PERF ORMED BY:[place] [address] [address] [place], [place] [phone] JACOBY AGARWAL M.D. Performed By: #### G LULS ####Point of Care testing, Glucose [Mass/Vol] 144 mg/dL Normal [facility] Comment on above: Result Comment: [place] Glucose Reference Range is dependent on time and content of last meal. Glucose of more than 200 mg/dL in a nonstressed, ambulatory subject supports the diagnosis of Diabetes Mellitus. Performed By: #### G BENSON ####Point of Care testing, Glucose mean value [Mass/vol ume] in Blood Estimated from glycated hemoglobinOrdered By: Davina Grimes on 05-05-2023 Average glucose Estimated from glycated hemoglobin (Bld) [Mass/Vol] 183 mg/dL [facility] Hematocrit Auto (Bld) [Volum e fraction]Ordered By: Davina Grimes on 05-05-2023 Hematocrit (Bld) [Volume fraction] 33.0 % 34.0-46.4 [facility] Hemoglobin A1c percentageOrd ered By: Davina Grimes on 05-05-2023 HbA1c (Bld) [Mass fraction] 8.0 % 4.3-5.6 [facility] Comment on above: Increased risk for d iabetes: 5.7 - 6.4diabetes: >6.4glycemic control for adults with diabetes: <7.0 Hemoglobin [Mass/volume] in BloodOrdered By: Davina Grimes on 05-05-2023 Hemoglobin (Bld) [Mass/Vol] 11.2 g/dL 11.8-15.4 [facility] Leukocytes [#/volume] correc babak for nucleated erythrocytes in Blood by Automated counOrdered By: Davina Grimes on 05-05-2023 WBC corrected for nucl RBC Auto (Bld) [#/Vol] 7.6 10*3/uL 3.8-11.6 [facility] Lymphocytes Auto (Bld) [#/Vo l]Ordered By: Davina Grimes on 05-05-2023 Lymphocytes (Bld) [#/Vol] 1.8 10*3/uL 1.00-4.8 [facility] Lymphocytes/100 WBC Auto (Bl d)Ordered By: Davina Grimes on 05-05-2023 Lymphocytes/100 WBC (Bld) 23.4 % . [facility] MCH Auto (RBC) [Entitic mass ]Ordered By: Davina Grimes on 05-05-2023 MCH (RBC) [Entitic mass] 31.5 pg 24.7-34.3 [facility] MCHC Auto (RBC) [Mass/Vol]Or dered By: Davnia Grimes on 05-05-2023 MCHC (RBC) [Mass/Vol] 33.8 g/dL 32.0-35.0 [facility] MCV Auto (RBC) [Entitic vol] Ordered By: Davina Grimes on 05-05-2023 MCV (RBC) [Entitic vol] 93.3 fL 80-100 [facility] Magnesiumon 05-05-2023 Magnesium [Mass/Vol] 1.7 mg/dL Low 1.9-2.7 [facility] Comment on above: Result Comment: PERF ORMED BY:[facility] [place] [address] [place], [place] [phone] MEDICAL DIRECTORXAVIER AGARWAL M.D. Performed By: #### B MP, MG, CBC, A1C WTH eA ####[facility] [place] [address] [facility] Monocytes Auto (Bld) [#/Vol] Ordered By: Davina Grmies on 05-05-2023 Monocytes (Bld) [#/Vol] 0.6 10*3/uL 0.0-0.8 [facility] Monocytes/100 WBC Auto (Bld) Ordered By: Davina Grimes on 05-05-2023 Monocytes/100 WBC (Bld) 8.2 % . [facility] Neutrophils Auto (Bld) [#/Vo l]Ordered By: Davina Grimes on 05-05-2023 Neutrophils (Bld) [#/Vol] 4.8 10*3/uL 1.8-7.7 [facility] Neutrophils/100 WBC Auto (Bl d)Ordered By: Davina Grimes on 05-05-2023 Neutrophils/100 WBC (Bld) 63.5 % . [facility] Nucleated erythrocytes [Pres ence] in Blood by Automated countOrdered By: Davina Grimes on 05-05-2023 Nucleated RBC Auto Ql (Bld) 0.2 /100{WBC} 0-0.5 [facility] Platelet mean volume Auto (B ld) [Entitic vol]Ordered By: Davina Grimes on 05-05-2023 Platelet mean volume (Bld) [Entitic vol] 7.9 fL 6.3-10.7 [facility] Platelets Auto (Bld) [#/Vol] Ordered By: Davina Grimes on 05-05-2023 Platelets (Bld) [#/Vol] 240 10*3/uL 150-450 [facility] RBC Auto (Bld) [#/Vol]Ordere d By: Davina Grimes on 05-05-2023 RBC (Bld) [#/Vol] 3.54 10*6/uL 3.60-5.00 [facility] WBC Auto (Bld) [#/Vol]Ordere d By: Davina Grimes on 05-05-2023 WBC (Bld) [#/Vol] 7.6 10*3/uL 3.8-11.[address] [facility] Alanine aminotransferase [En zymatic activity/volume] in Serum or PlasmaOrdered By: Ann Gillis on 05-04-2023 ALT [Catalytic activity/Vol] 13 U/L 7-52 [facility] Albumin [Mass/volume] in Ser um or Plasma by Bromocresol green (BCG) dye binding methoOrdered By: Ann Gillis on 05-04-2023 Albumin BCG dye [Mass/Vol] 3.8 g/dL 3.5-5.7 [facility] Alkaline phosphatase [Enzyma tic activity/volume] in Serum or PlasmaOrdered By: Ann Gillis on 05-04-2023 ALP [Catalytic activity/Vol] 58 U/L 34-104 [facility] Aspartate aminotransferase [ Enzymatic activity/volume] in Serum or PlasmaOrdered By: Ann Gillis on 05-04-2023 AST [Catalytic activity/Vol] 17 U/L 13-39 [facility] Automated erythrocytes count in urine sediment (number/area)Ordered By: Ann Gillis on 05-04-2023 RBC Auto (Urine sed) [#/Area] 0-1 [HPF] 0-4 [facility] Automated leukocytes count i n urine sediment (number/area)Ordered By: Ann Gillis on 05-04-2023 WBC Auto (Urine sed) [#/Area] 3-4 [HPF] 0-4 [facility] B-Type Natriuretic Peptideon 05-04-2023 Natriuretic peptide B (Bld) [Mass/Vol] 115.0 pg/mL High 5-100 [facility] Comment on above: Result Comment: PERF ORMED BY:[facility] [place], [place] [phone] MEDICAL DIRECTORXAVIER AGARWAL M.D. Performed By: #### B [employer], HS TROP, CK, CMP, CBC ####[facility] [place] [address] [facility] Basophils Auto (Bld) [#/Vol] Ordered By: Ann Gillis on 05-04-2023 Basophils (Bld) [#/Vol] 0.1 10*3/uL 0.0-0.2 [facility] Basophils/100 WBC Auto (Bld) Ordered By: Ann Gillis on 05-04-2023 Basophils/100 WBC (Bld) 0.9 % . [facility] Bilirubin Test strip Ql (U)O rdered By: Ann Gillis on 05-04-2023 Bilirubin Ql (U) Negative Negative [facility] Bilirubin.total [Mass/volume ] in Serum or PlasmaOrdered By: Ann Gillis on 05-04-2023 Bilirubin [Mass/Vol] 0.4 mg/dL 0.3-1.0 [facility] Calcium [Mass/volume] in Ser um or PlasmaOrdered By: Ann Gillis on 05-04-2023 Calcium [Mass/Vol] 9.5 mg/dL 8.6-10.[address] [facility] Carbon dioxide, total [Moles /volume] in Serum or PlasmaOrdered By: Ann Gillis on 05-04-2023 CO2 [Moles/Vol] 30.1 mmol/L 21.0-31.0 [facility] Chloride [Moles/volume] in S moriah or PlasmaOrdered By: Ann Gillis on 05-04-2023 Chloride [Moles/Vol] 106 mmol/L 98-107 [facility] Color Auto (U)Ordered By: Timmy Gillis on 05-04-2023 Color (U) Yellow Yellow [facility] Complete Blood Count Auto Di ffon 05-04-2023 Basophils (Bld) [#/Vol] 0.1 10*3/uL Normal 0.0-0.2 [facility] Comment on above: Result Comment: PERF ORMED BY:[address] [place], [place] [phone] MEDICAL DIRECTORXAVIER AGARWAL M.D. Performed By: #### B [employer]ANT, HS TROP, CK, CMP, CBC ####[address] Basophils/100 WBC (Bld) 0.9 % Normal . [facility] Comment on above: Performed By: #### B [employer]ANT, HS TROP, CK, CMP, CBC ####[address] Eosinophils (Bld) [#/Vol] 0.3 10*3/uL Normal 0.0-0.45 [facility] Comment on above: Performed By: #### B [employer]ANT, HS TROP, CK, CMP, CBC ####[address] Eosinophils/100 WBC (Bld) 3.9 % Normal . [facility] Comment on above: Performed By: #### B [employer] CONS[employer]ANT, HS TROP, CK, CMP, CBC ####[address] Erythrocyte distribution width (RBC) [Ratio] 14.0 % Normal 11.9-15.3 [facility] Comment on above: Performed By: #### B [employer]ANT, HS TROP, CK, CMP, CBC ####[address] Hematocrit (Bld) [Volume fraction] 35.1 % Normal 34.0-46.4 [facility] Comment on above: Performed By: #### B [employer]ANT, HS TROP, CK, CMP, CBC ####[address] Hemoglobin (Bld) [Mass/Vol] 11.7 g/dL Low 11.8-15.4 [facility] Comment on above: Performed By: #### B [employer]ANT, HS TROP, CK, CMP, CBC ####[address] Lymphocytes (Bld) [#/Vol] 1.5 10*3/uL Normal 1.00-4.8 [facility] Comment on above: Performed By: #### B [employer] CONS[employer]ANT, HS TROP, CK, CMP, CBC ####[address] Lymphocytes/100 WBC (Bld) 23.0 % Normal . [facility] Comment on above: Performed By: #### B [employer]ANT, HS TROP, CK, CMP, CBC ####[address] MCH (RBC) [Entitic mass] 31.0 pg Normal 24.7-34.3 [facility] Comment on above: Performed By: #### B [employer] CONS[employer]ANT, HS TROP, CK, CMP, CBC ####[address] MCV (RBC) [Entitic vol] 93.3 fL Normal 80-100 [facility] Comment on above: Performed By: #### B [employer] CONSULTANT, HS TROP, CK, CMP, CBC ####[address] Mean Corpuscular HGB Conc 33.2 g/dL Normal 32.0-35.0 [facility] Comment on above: Performed By: #### B [employer] CONS[employer]ANT, HS TROP, CK, CMP, CBC ####[address] Monocytes (Bld) [#/Vol] 0.6 10*3/uL Normal 0.0-0.8 [facility] Comment on above: Performed By: #### B [employer] CONS[employer]ANT, HS TROP, CK, CMP, CBC ####[address] Monocytes/100 WBC (Bld) 19.38 % Normal 0.00-20.00 [facility] Comment on above: Performed By: #### B [employer] CONSULTANT, HS TROP, CK, CMP, CBC ####[address] Monocytes/100 WBC (Bld) 9.8 % Normal . [facility] Comment on above: Performed By: #### B [employer] CONSULTANT, HS TROP, CK, CMP, CBC ####[address] Neutrophils (Bld) [#/Vol] 4.0 10*3/uL Normal 1.8-7.7 [facility] Comment on above: Performed By: #### B [employer] CONSULTANT, HS TROP, CK, CMP, CBC ####[address] Neutrophils/100 WBC (Bld) 62.4 % Normal . [facility] Comment on above: Performed By: #### B [employer] CONSULTANT, HS TROP, CK, CMP, CBC ####[address] NRBC% 0.0 /100{WBC} Normal 0-0.5 [facility] Comment on above: Performed By: #### B [employer] CONSULTANT, HS TROP, CK, CMP, CBC ####[address] Platelet mean volume (Bld) [Entitic vol] 7.8 fL Normal 6.3-10.7 [facility] Comment on above: Performed By: #### B [employer] CONSULTANT, HS TROP, CK, CMP, CBC ####[address] Platelets (Bld) [#/Vol] 242 10*3/uL Normal 150-450 [facility] Comment on above: Performed By: #### B [employer] CONSULTANT, HS TROP, CK, CMP, CBC ####[address] RBC (Bld) [#/Vol] 3.77 10*6/uL Normal 3.60-5.00 [facility] Comment on above: Performed By: #### B [employer] CONSULTANT, HS TROP, CK, CMP, CBC ####[address] WBC (Bld) [#/Vol] 6.4 10*3/uL Normal 3.8-11.6 [facility] Comment on above: Performed By: #### B [employer] CONSULTANT, HS TROP, CK, CMP, CBC ####[address] Comprehensive Metabolic Pane carlos 05-04-2023 Albumin [Mass/Vol] 3.8 g/dL Normal 3.5-5.7 [facility] Comment on above: Performed By: #### B [employer] CONSULTANT, HS TROP, CK, CMP, CBC ####[address] Albumin/Globulin [Mass ratio] 1.4 {ratio} Normal [facility] Comment on above: Performed By: #### B [employer] CONSULTANT, HS TROP, CK, CMP, CBC ####[address] ALP [Catalytic activity/Vol] 58 U/L Normal 34-104 [facility] Comment on above: Performed By: #### B [employer] CONSULTANT, HS TROP, CK, CMP, CBC ####[address] ALT [Catalytic activity/Vol] 13 U/L Normal 7-52 [facility] Comment on above: Performed By: #### B [employer] CONSULTANT, HS TROP, CK, CMP, CBC ####[address] Anion gap [Moles/Vol] 10.8 mmol/L Normal 6.0-15.0 [facility] Comment on above: Performed By: #### B [employer] CONSULTANT, HS TROP, CK, CMP, CBC ####[address] AST [Catalytic activity/Vol] 17 U/L Normal 13-39 [facility] Comment on above: Performed By: #### B [employer] CONSULTANT, HS TROP, CK, CMP, CBC ####[address] Bilirubin [Mass/Vol] 0.4 mg/dL Normal 0.3-1.0 [facility] Comment on above: Performed By: #### B [employer] CONSULTANT, HS TROP, CK, CMP, CBC ####[address] Calcium [Mass/Vol] 9.5 mg/dL Normal 8.6-10.3 [facility] Comment on above: Performed By: #### B [employer] CONSULTANT, HS TROP, CK, CMP, CBC ####[address] Chloride [Moles/Vol] 106 mmol/L Normal 98-107 [facility] Comment on above: Performed By: #### B [employer] CONSULTANT, HS TROP, CK, CMP, CBC ####[address] CO2 [Moles/Vol] 30.1 mmol/L Normal 21.0-31.0 [facility] Comment on above: Performed By: #### B [employer] CONSULTANT, HS TROP, CK, CMP, CBC ####[place] [id number] [facility] Creatinine [Mass/Vol] 1.44 mg/dL High 0.60-1.20 [facility] Comment on above: Performed By: #### B [employer] CONSULTANT, HS TROP, CK, CMP, CBC ####[address] Creatinine Clr Calc Pharmacy 54.97 Normal [facility] [facility] Comment on above: Result Comment: PERF ORMED BY:[address] [place], [place] [phone] MEDICAL DIRECTORXAVIER AGARWAL M.D. Performed By: #### B [employer] CONSULTANT, HS TROP, CK, CMP, CBC ####[address] GFR/1.73 sq M.predicted MDRD (S/P/Bld) [Vol rate/Area] 39.618 mL/min/{1.73_m2} Normal [facility] Comment on above: Performed By: #### B [employer] CONSULTANT, HS TROP, CK, CMP, CBC ####[place] [id number] [place] [id number] [facility] Globulin (S) [Mass/Vol] 2.8 g/dL Normal [facility] Comment on above: Performed By: #### B [employer] CONSULTANT, HS TROP, CK, CMP, CBC ####[place] [id number] [facility] Glucose [Mass/Vol] 94 mg/dL Normal 70-100 [facility] Comment on above: Result Comment: [facility] Glucose Reference Range is dependent on time and content of last meal. Glucose of more than 200 mg/dL in a nonstressed, ambulatory subject supports the diagnosis of Diabetes Mellitus. ADA recommended reference range Performed By: #### B [employer] CONSULTANT, HS TROP, CK, CMP, CBC ####[address] Potassium [Moles/Vol] 3.9 mmol/L Normal 3.5-5.1 [facility] Comment on above: Performed By: #### B [employer] CONSULTANT, HS TROP, CK, CMP, CBC ####[place] [id number] [facility] Protein [Mass/Vol] 6.6 g/dL Normal 6.4-8.9 [facility] Comment on above: Performed By: #### B [employer] CONSULTANT, HS TROP, CK, CMP, CBC ####[place] [id number] [facility] Sodium [Moles/Vol] 143 mmol/L Normal 136-145 [facility] Comment on above: Performed By: #### B [employer] CONSULTANT, HS TROP, CK, CMP, CBC ####[place] [id number] [facility] Urea nitrogen [Mass/Vol] 29 mg/dL High 7-25 [facility] Comment on above: Performed By: #### B [employer] CONSULTANT, HS TROP, CK, CMP, CBC ####[place] [id number] [facility] Creatine Kinaseon 05-04-2023 CK [Catalytic activity/Vol] 50 U/L Normal 30-223 [facility] Comment on above: Performed By: #### B [employer] CONSULTANT, HS TROP, CK, CMP, CBC ####[address] [address] [facility] Creatine kinase [Enzymatic a ctivity/volume] in Serum or PlasmaOrdered By: Ann Gillis on 05-04-2023 CK [Catalytic activity/Vol] 50 U/L [facility] Creatinine [Mass/volume] in Serum or PlasmaOrdered By: Ann Gillis on 05-04-2023 Creatinine [Mass/Vol] 1.44 mg/dL 0.60-1.20 [facility] Dipstick and Microscopicon 0 05-04-2023 Appearance (U) Clear Normal Clear [facility] Comment on above: Order Comment: Name Collection Type:: Clean-Voided Midstream Performed By: #### A DDONUAPLUS ####[address] [address] [facility] Bacteria,Urine None Seen Normal None Seen [facility] Comment on above: Order Comment: Name Collection Type:: Clean-Voided Midstream Performed By: #### A DDONUAPLUS ####[address] [address] [facility] Bilirubin,Urine Negative Normal Negative [facility] Comment on above: Order Comment: Name Collection Type:: Clean-Voided Midstream Performed By: #### A DDONUAPLUS ####[address] [address] [facility] Color (U) Yellow Normal Yellow [facility] Comment on above: Order Comment: Name Collection Type:: Clean-Voided Midstream Performed By: #### A DDONUAPLUS ####[address] [address] [facility] Glucose Ql (U) Normal Normal Normal [facility] Comment on above: Order Comment: Name Collection Type:: Clean-Voided Midstream Performed By: #### A DDONUAPLUS ####[address] [address] [place] Hyaline Casts,Urine 0-8 Normal 0-8 [facility] Comment on above: Order Comment: Name Collection Type:: Clean-Voided Midstream Result Comment: PERF ORMED BY:[place] [address] [address] [place], [place] [phone] MEDICAL DIRECTORXAVIER AGARWAL M.D. Performed By: #### A DDONUAPLUS ####[address] [address] [facility] Ketones Ql (U) Negative Normal Negative [facility] Comment on above: Order Comment: Name Collection Type:: Clean-Voided Midstream Performed By: #### A DDONUAPLUS ####[address] [address] [facility] Leukocyte esterase Test strip Ql (U) 1+ High Negative [facility] Comment on above: Order Comment: Name Collection Type:: Clean-Voided Midstream Performed By: #### A DDONUAPLUS ####[address] [address] [facility] Nitrite,Urine Negative Normal Negative [facility] Comment on above: Order Comment: Name Collection Type:: Clean-Voided Midstream Performed By: #### A DDONUAPLUS ####[address] [address] [place] Occult Blood,Urine Negative Normal Negative [facility] Comment on above: Order Comment: Name Collection Type:: Clean-Voided Midstream Result Comment: PERF ORMED BY:[place] [address] [place], [place] [phone] MEDICAL DIRECTORXAVIER AGARWAL M.D. Performed By: #### A DDONUAPLUS ####[address] [address] [place] pH (U) 5.0 [pH] Normal 5.0-9.0 [facility] Comment on above: Order Comment: Name Collection Type:: Clean-Voided Midstream Performed By: #### A DDONUAPLUS ####[address] [address] [place] Protein,Urine Negative Normal Negative [facility] Comment on above: Order Comment: Name Collection Type:: Clean-Voided Midstream Performed By: #### A DDONUAPLUS ####[address] RBC LM.HPF (Urine sed) [#/Area] 0 /[HPF] Normal 0-4 [facility] Comment on above: Order Comment: Name Collection Type:: Clean-Voided Midstream Performed By: #### A DDONUAPLUS ####[address] Specificy [place],Urine 1.012 Normal 1.001-1.03 0 [facility] Comment on above: Order Comment: Name Collection Type:: Clean-Voided Midstream Performed By: #### A DDONUAPLUS ####[address] Squamous Epithelial Cell,Urine 1-2 Normal 0-2 [facility] Comment on above: Order Comment: Name Collection Type:: Clean-Voided Midstream Performed By: #### A DDONUAPLUS ####[address] Urobilinogen,Urine Normal Normal Normal [facility] Comment on above: Order Comment: Name Collection Type:: Clean-Voided Midstream Performed By: #### A DDONUAPLUS ####[place] [id number] [facility] WBC,Urine 3-4 Normal 0-4 [facility] Comment on above: Order Comment: Name Collection Type:: Clean-Voided Midstream Performed By: #### A DDONUAPLUS ####[address] ECG 12 lead ECGon 05-04-2023 ECG 12 lead ECG Normal [facility] Eosinophils Auto (Bld) [#/Vo l]Ordered By: Ann Gillis on 05-04-2023 Eosinophils (Bld) [#/Vol] 0.3 10*3/uL 0.0-0.45 [facility] Eosinophils/100 WBC Auto (Bl d)Ordered By: Ann Gillis on 05-04-2023 Eosinophils/100 WBC (Bld) 3.9 % . [facility] Erythrocyte distribution wid th Auto (RBC) [Ratio]Ordered By: Ann Gillis on 05-04-2023 Erythrocyte distribution width (RBC) [Ratio] 14.0 % 11.9-15.3 [facility] Globulin Calc (S) [Mass/Vol] Ordered By: Ann Gillis on 05-04-2023 Globulin (S) [Mass/Vol] 2.8 g/dL [facility] Glucose [Mass/volume] in Ser um or PlasmaOrdered By: Ann Gillis on 05-04-2023 Glucose [Mass/Vol] 94 mg/dL 70-[address] [facility] Comment on above: ADA recommended refe rence rangeRandom Glucose Reference Range is dependent on time and content of last meal. Glucose of more than 200 mg/dL in a nonstressed, ambulatory subject supports the diagnosis of Diabetes Mellitus. Hematocrit Auto (Bld) [Volum e fraction]Ordered By: Ann Gillis on 05-04-2023 Hematocrit (Bld) [Volume fraction] 35.1 % 34.0-46.4 [facility] Hemoglobin [Mass/volume] in BloodOrdered By: Ann Gillis on 05-04-2023 Hemoglobin (Bld) [Mass/Vol] 11.7 g/dL 11.8-15.4 [facility] Ketones Auto test strip (U) [Mass/Vol]Ordered By: Ann Gillis on 05-04-2023 Ketones (U) [Mass/Vol] Negative Negative [facility] - UrinalysisOrder ed By: Ann Gillis on 05-04-2023 Hyaline casts LM Ql (Urine sed) 0-8 [LPF] 0-8 [facility] Leukocytes [#/volume] correc babak for nucleated erythrocytes in Blood by Automated counOrdered By: Ann Gillis on 05-04-2023 WBC corrected for nucl RBC Auto (Bld) [#/Vol] 6.4 10*3/uL 3.8-11.6 [facility] Lymphocytes Auto (Bld) [#/Vo l]Ordered By: Ann Gillis on 05-04-2023 Lymphocytes (Bld) [#/Vol] 1.5 10*3/uL 1.00-4.8 [facility] Lymphocytes/100 WBC Auto (Bl d)Ordered By: Ann Gillis on 05-04-2023 Lymphocytes/100 WBC (Bld) 23.0 % . [facility] MCH Auto (RBC) [Entitic mass ]Ordered By: Ann Gillis on 05-04-2023 MCH (RBC) [Entitic mass] 31.0 pg 24.7-34.3 [facility] MCHC Auto (RBC) [Mass/Vol]Or dered By: Ann Gillis on 05-04-2023 MCHC (RBC) [Mass/Vol] 33.2 g/dL 32.0-35.0 [facility] MCV Auto (RBC) [Entitic vol] Ordered By: Ann Gillis on 05-04-2023 MCV (RBC) [Entitic vol] 93.3 fL 80-100 [facility] Monocyte distribution width [Entitic volume] in Blood by AutomatedOrdered By: Ann Gillis on 05-04-2023 Monocyte distribution width Auto (Bld) [Entitic vol] 19.38 % 0.00-20.00 [facility] Monocytes Auto (Bld) [#/Vol] Ordered By: Ann Gillis on 05-04-2023 Monocytes (Bld) [#/Vol] 0.6 10*3/uL 0.0-0.8 [facility] Monocytes/100 WBC Auto (Bld) Ordered By: Ann Gillis on 05-04-2023 Monocytes/100 WBC (Bld) 9.8 % . [facility] Natriuretic peptide B [Mass/ Vol]Ordered By: Ann Gillis on 05-04-2023 Natriuretic peptide B (Bld) [Mass/Vol] 115.0 pg/mL 5-100 [facility] Neutrophils Auto (Bld) [#/Vo l]Ordered By: Ann Gillis on 05-04-2023 Neutrophils (Bld) [#/Vol] 4.0 10*3/uL 1.8-7.7 [facility] Neutrophils/100 WBC Auto (Bl d)Ordered By: Ann Gillis on 05-04-2023 Neutrophils/100 WBC (Bld) 62.4 % . [facility] Nitrite Test strip Ql (U)Ord ered By: Ann Gillis on 05-04-2023 Nitrite Ql (U) Negative Negative [facility] No Panel InformationOrdered By: Ann Gillis on 05-04-2023 Estimated GFR (CKD-EPI) 39.618 mL/Min [facility] Creatinine Clearance (Chem 54.97 [facility] Nucleated erythrocytes [Pres ence] in Blood by Automated countOrdered By: Ann Gillis on 05-04-2023 Nucleated RBC Auto Ql (Bld) 0.0 /100{WBC} 0-0.5 [facility] Platelet mean volume Auto (B ld) [Entitic vol]Ordered By: Ann Gillis on 05-04-2023 Platelet mean volume (Bld) [Entitic vol] 7.8 fL 6.3-10.7 [facility] Platelets Auto (Bld) [#/Vol] Ordered By: Ann Gillis on 05-04-2023 Platelets (Bld) [#/Vol] 242 10*3/uL 150-450 [facility] Potassium [Moles/volume] in Serum or PlasmaOrdered By: Ann Gillis on 05-04-2023 Potassium [Moles/Vol] 3.9 mmol/L 3.5-5.1 [facility] Protein Auto test strip (U) [Mass/Vol]Ordered By: Ann Gillis on 05-04-2023 Protein (U) [Mass/Vol] Negative Negative [facility] Protein [Mass/volume] in Ser um or PlasmaOrdered By: Ann Gillis on 05-04-2023 Protein [Mass/Vol] 6.6 g/dL 6.4-8.[address] [facility] RBC Auto (Bld) [#/Vol]Ordere d By: Ann Gillis on 05-04-2023 RBC (Bld) [#/Vol] 3.77 10*6/uL 3.60-5.00 [facility] Serum or plasma albumin/glob ulin mass ratioOrdered By: Ann Gillis on 05-04-2023 Albumin/Globulin [Mass ratio] 1.4 {ratio} [facility] Serum or plasma anion gap de terminationOrdered By: Ann Gillis on 05-04-2023 Anion gap [Moles/Vol] 10.8 mmol/L 6.0-15.0 [facility] Sodium [Moles/volume] in Ser um or PlasmaOrdered By: Ann Gillis on 05-04-2023 Sodium [Moles/Vol] 143 mmol/L 136-[address] [facility] Specific gravity Auto test s trip (U) [Rel density]Ordered By: Ann Gillis on 05-04-2023 Specific gravity (U) [Rel density] 1.012 1.001-1.03 0 [facility] Squamous epithelial cells de tection in urine sediment by light microscopyOrdered By: Ann Gillis on 05-04-2023 Epithelial cells.squamous LM Ql (Urine sed) 1-2 [HPF] 0-2 [facility] Troponin I High Sensitivityo n 05-04-2023 Troponin I High Sensitivity 6.4 pg/mL Normal 0.0-15.0 [facility] Comment on above: Result Comment: PERF ORMED BY:[place] [address] [place] [place], [place] [phone] MEDICAL DIRECTORXAVIER AGARWAL M.D. Performed By: #### H S TROP ####[address] [address] [facility] Troponin I High Sensitivity 6.4 pg/mL Normal 0.0-15.0 [facility] Comment on above: Result Comment: PERF ORMED BY:[place] [address] [place] [place], [place] [phone] MEDICAL DIRECTORXAVIER AGARWAL M.D. Performed By: #### B [employer] FIN[employer]CI[employer] CONSULTANT, HS TROP, CK, CMP, CBC ####[address] [address] [facility] Troponin I.cardiac [Mass/vol ume] in Serum or Plasma by Detection limit <= 0.01 ng/Ordered By: Ann iGllis on 05-04-2023 Troponin I.cardiac DL <= 0.01 ng/mL [Mass/Vol] 6.4 pg/mL 0.0-15.0 [facility] Urea nitrogen [Mass/volume] in Serum or PlasmaOrdered By: Ann Gillis on 05-04-2023 Urea nitrogen [Mass/Vol] 29 mg/dL 05-23 [facility] Urine bacteria detection by automated methodOrdered By: Ann Gillis on 05-04-2023 Bacteria Auto Ql (U) None seen None Seen [facility] Urine clarity by refractomet ry automatedOrdered By: Ann Gillis on 05-04-2023 Clarity Refractometry automated (U) Clear Clear [facility] Urine glucose measurement by automated test strip (mass/volume)Ordered By: Ann Gillis on 05-04-2023 Glucose Auto test strip (U) [Mass/Vol] Normal mg/dL Normal [facility] Urine hemoglobin detection b y automated test stripOrdered By: Ann Gillis on 05-04-2023 Hemoglobin Auto test strip Ql (U) Negative Negative [facility] Urine leukocyte esterase det ection by automated test stripOrdered By: Ann Gillis on 05-04-2023 Leukocyte esterase Auto test strip Ql (U) 1+ Negative [facility] Urobilinogen Auto test strip (U) [Mass/Vol]Ordered By: Ann Gillis on 05-04-2023 Urobilinogen (U) [Mass/Vol] Normal mg/dL Normal [facility] WBC Auto (Bld) [#/Vol]Ordere d By: Ann Gillis on 05-04-2023 WBC (Bld) [#/Vol] 6.4 10*3/uL 3.8-11.[address] [facility] XR chest 2V*on 05-04-2023 XR chest 2V* Normal [facility] pH Auto test strip (U)Ordere d By: Ann Gillis on 05-04-2023 pH (U) 5.0 [pH] 5.0-9.0 [facility] Activated partial thrombopla stin time (aPTT) in platelet poor plasma by coagulation aOrdered By: Antolin Apodaca on 04-11-2023 aPTT Coag (PPP) [Time] 32.2 s 25.1-36.5 [facility] Alanine aminotransferase [En zymatic activity/volume] in Serum or PlasmaOrdered By: Antolin Apodaca on 04-11-2023 ALT [Catalytic activity/Vol] 12 U/L [facility] Albumin [Mass/volume] in Ser um or Plasma by Bromocresol green (BCG) dye binding methoOrdered By: Antolin Apodaca on 04-11-2023 Albumin BCG dye [Mass/Vol] 3.8 g/dL 3.5-5.7 [facility] Alkaline phosphatase [Enzyma tic activity/volume] in Serum or PlasmaOrdered By: Antolin Apodaca on 04-11-2023 ALP [Catalytic activity/Vol] 62 U/L 34-104 [facility] Aspartate aminotransferase [ Enzymatic activity/volume] in Serum or PlasmaOrdered By: Antolin Apodaca on 04-11-2023 AST [Catalytic activity/Vol] 13 U/L 13-39 [facility] Automated erythrocytes count in urine sediment (number/area)Ordered By: Aryan Kellogg on 04-11-2023 RBC Auto (Urine sed) [#/Area] 3-4 [HPF] 0-4 [facility] Automated leukocytes count i n urine sediment (number/area)Ordered By: Aryan Kellogg on 04-11-2023 WBC Auto (Urine sed) [#/Area] Innumerable [HPF] 0-4 [facility] Basophils Auto (Bld) [#/Vol] Ordered By: Antolin Apodaca on 04-11-2023 Basophils (Bld) [#/Vol] 0.1 10*3/uL 0.0-0.2 [facility] Basophils/100 WBC Auto (Bld) Ordered By: Antolin Apodaca on 04-11-2023 Basophils/100 WBC (Bld) 0.8 % . [facility] Bilirubin Test strip Ql (U)O rdered By: Aryan Kellogg on 04-11-2023 Bilirubin Ql (U) Negative Negative [facility] Bilirubin.total [Mass/volume ] in Serum or PlasmaOrdered By: Antolin Apodaca on 04-11-2023 Bilirubin [Mass/Vol] 0.6 mg/dL 0.3-1.[address] [facility] [address] cervical spine wo conon 0 04-11-2023 CT cervical spine wo con Normal [facility] CT lumbar spine wo conon CT lumbar spine wo con Normal [facility] Calcium [Mass/volume] in Ser um or PlasmaOrdered By: Antolin Apodaca on 04-11-2023 Calcium [Mass/Vol] 9.0 mg/dL 8.6-10.[address] [facility] Carbon dioxide, total [Moles /volume] in Serum or PlasmaOrdered By: Antolin Apodaca on 04-11-2023 CO2 [Moles/Vol] 30.5 mmol/L 21.0-31.0 [facility] Chloride [Moles/volume] in S moriah or PlasmaOrdered By: Antolin Apodaca on 04-11-2023 Chloride [Moles/Vol] 102 mmol/L 98-107 [facility] Color Auto (U)Ordered By: Gaetano Kellogg on 04-11-2023 Color (U) Dark yellow Yellow [facility] Complete Blood Count Auto Di ffon 04-11-2023 Basophils (Bld) [#/Vol] 0.1 10*3/uL Normal 0.0-0.2 [facility] Comment on above: Result Comment: PERF ORMED BY:[address] [place], [place] [phone] MEDICAL DIRECTORXAVIER AGARWAL M.D. Performed By: #### C MP, PTT, CBC, PT ####[place] [id number] [facility] Basophils/100 WBC (Bld) 0.8 % Normal . [facility] Comment on above: Performed By: #### C MP, PTT, CBC, PT ####[address] [address] [facility] Eosinophils (Bld) [#/Vol] 0.3 10*3/uL Normal 0.0-0.45 [facility] Comment on above: Performed By: #### C MP, PTT, CBC, PT ####[address] [address] [facility] Eosinophils/100 WBC (Bld) 4.4 % Normal . [facility] Comment on above: Performed By: #### C MP, PTT, CBC, PT ####[place] [id number] [facility] Erythrocyte distribution width (RBC) [Ratio] 13.9 % Normal 11.9-15.3 [facility] Comment on above: Performed By: #### C MP, PTT, CBC, PT ####[address] Hematocrit (Bld) [Volume fraction] 35.1 % Normal 34.0-46.4 [facility] Comment on above: Performed By: #### C MP, PTT, CBC, PT ####[address] Hemoglobin (Bld) [Mass/Vol] 11.8 g/dL Normal 11.8-15.4 [facility] Comment on above: Performed By: #### C MP, PTT, CBC, PT ####[address] Lymphocytes (Bld) [#/Vol] 1.4 10*3/uL Normal 1.00-4.8 [facility] Comment on above: Performed By: #### C MP, PTT, CBC, PT ####[address] Lymphocytes/100 WBC (Bld) 21.8 % Normal . [facility] Comment on above: Performed By: #### C MP, PTT, CBC, PT ####[address] MCH (RBC) [Entitic mass] 31.4 pg Normal 24.7-34.3 [facility] Comment on above: Performed By: #### C MP, PTT, CBC, PT ####[address] MCV (RBC) [Entitic vol] 93.1 fL Normal 80-100 [facility] Comment on above: Performed By: #### C MP, PTT, CBC, PT ####[address] Mean Corpuscular HGB Conc 33.8 g/dL Normal 32.0-35.0 [facility] Comment on above: Performed By: #### C MP, PTT, CBC, PT ####[place] [address] Monocytes (Bld) [#/Vol] 0.6 10*3/uL Normal 0.0-0.8 [facility] Comment on above: Performed By: #### C MP, PTT, CBC, PT ####[address] Monocytes/100 WBC (Bld) 8.5 % Normal . [facility] Comment on above: Performed By: #### C MP, PTT, CBC, PT ####[address] Neutrophils (Bld) [#/Vol] 4.2 10*3/uL Normal 1.8-7.7 [facility] Comment on above: Performed By: #### C MP, PTT, CBC, PT ####[address] Neutrophils/100 WBC (Bld) 64.5 % Normal . [facility] Comment on above: Performed By: #### C MP, PTT, CBC, PT ####[address] NRBC% 0.0 /100{WBC} Normal 0-0.5 [facility] Comment on above: Performed By: #### C MP, PTT, CBC, PT ####[address] Platelet mean volume (Bld) [Entitic vol] 7.7 fL Normal 6.3-10.7 [facility] Comment on above: Performed By: #### C MP, PTT, CBC, PT ####[address] Platelets (Bld) [#/Vol] 229 10*3/uL Normal 150-450 [facility] Comment on above: Performed By: #### C MP, PTT, CBC, PT ####[address] RBC (Bld) [#/Vol] 3.77 10*6/uL Normal 3.60-5.00 [facility] Comment on above: Performed By: #### C MP, PTT, CBC, PT ####[address] WBC (Bld) [#/Vol] 6.6 10*3/uL Normal 3.8-11.6 [facility] Comment on above: Performed By: #### C MP, PTT, CBC, PT ####[address] Comprehensive Metabolic Pane carlos 04-11-2023 Albumin [Mass/Vol] 3.8 g/dL Normal 3.5-5.7 [facility] Comment on above: Performed By: #### C MP, PTT, CBC, PT ####[address] Albumin/Globulin [Mass ratio] 1.6 {ratio} Normal [facility] Comment on above: Performed By: #### C MP, PTT, CBC, PT ####[address] ALP [Catalytic activity/Vol] 62 U/L Normal 34-104 [facility] Comment on above: Performed By: #### C MP, PTT, CBC, PT ####[address] ALT [Catalytic activity/Vol] 12 U/L Normal 7-52 [facility] Comment on above: Performed By: #### C MP, PTT, CBC, PT ####[address] Anion gap [Moles/Vol] 10.6 mmol/L Normal 6.0-15.0 [facility] Comment on above: Performed By: #### C MP, PTT, CBC, PT ####[address] AST [Catalytic activity/Vol] 13 U/L Normal 13-39 [facility] Comment on above: Performed By: #### C MP, PTT, CBC, PT ####[place] [id number] [place] Bilirubin [Mass/Vol] 0.6 mg/dL Normal 0.3-1.0 [facility] Comment on above: Performed By: #### C MP, PTT, CBC, PT ####[address] Calcium [Mass/Vol] 9.0 mg/dL Normal 8.6-10.3 [facility] Comment on above: Performed By: #### C MP, PTT, CBC, PT ####[address] Chloride [Moles/Vol] 102 mmol/L Normal 98-107 [facility] Comment on above: Performed By: #### C MP, PTT, CBC, PT ####[address] CO2 [Moles/Vol] 30.5 mmol/L Normal 21.0-31.0 [facility] Comment on above: Performed By: #### C MP, PTT, CBC, PT ####[address] Creatinine [Mass/Vol] 1.34 mg/dL High 0.60-1.20 [facility] Comment on above: Performed By: #### C MP, PTT, CBC, PT ####[address] Creatinine Clr Calc Pharmacy 58.26 Normal [facility] Comment on above: Result Comment: PERF ORMED BY:[address] [place], [place] [phone] MEDICAL LILIYA AGARWAL M.D. Performed By: #### C MP, PTT, CBC, PT ####[place] [id number] [place] [facility] GFR/1.73 sq M.predicted MDRD (S/P/Bld) [Vol rate/Area] 43.191 mL/min/{1.73_m2} Normal [facility] Comment on above: Performed By: #### C MP, PTT, CBC, PT ####[address] Globulin (S) [Mass/Vol] 2.4 g/dL Normal [facility] Comment on above: Performed By: #### C MP, PTT, CBC, PT ####[address] Glucose [Mass/Vol] 244 mg/dL High 70-100 [facility] Comment on above: Result Comment: [facility] Glucose Reference Range is dependent on time and content of last meal. Glucose of more than 200 mg/dL in a nonstressed, ambulatory subject supports the diagnosis of Diabetes Mellitus. ADA recommended reference range Performed By: #### C MP, PTT, CBC, PT ####[address] Potassium [Moles/Vol] 4.1 mmol/L Normal 3.5-5.1 [facility] Comment on above: Performed By: #### C MP, PTT, CBC, PT ####[address] Protein [Mass/Vol] 6.2 g/dL Low 6.4-8.9 [facility] Comment on above: Performed By: #### C MP, PTT, CBC, PT ####[address] Sodium [Moles/Vol] 139 mmol/L Normal 136-145 [facility] Comment on above: Performed By: #### C MP, PTT, CBC, PT ####[address] Urea nitrogen [Mass/Vol] 24 mg/dL Normal 7-25 [facility] Comment on above: Performed By: #### C MP, PTT, CBC, PT ####[address] Creatinine [Mass/volume] in Serum or PlasmaOrdered By: Antolin Apodaca on 04-11-2023 Creatinine [Mass/Vol] 1.34 mg/dL 0.60-1.20 [facility] Dipstick and Microscopicon 0 04-11-2023 Appearance (U) Cloudy Critically abnormal Clear [facility] Comment on above: Order Comment: Name Collection Type:: Clean-Voided Midstream Performed By: #### A DDONUAPLUS, CUU ####[id number] [place] [address] [facility] Bacteria,Urine 4+ High None Seen [facility] Comment on above: Order Comment: Name Collection Type:: Clean-Voided Midstream Performed By: #### A DDONUAPLUS, CUU ####[address] [address] [place] Bilirubin,Urine Negative Normal Negative [facility] Comment on above: Order Comment: Name Collection Type:: Clean-Voided Midstream Performed By: #### A DDONUAPLUS, CUU ####[address] [address] [facility] Color (U) Dark Yellow Critically abnormal Yellow [facility] Comment on above: Order Comment: Name Collection Type:: Clean-Voided Midstream Performed By: #### A DDONUAPLUS, CUU ####[address] [address] [place] Glucose Ql (U) Normal Normal Normal [facility] Comment on above: Order Comment: Name Collection Type:: Clean-Voided Midstream Performed By: #### A DDONUAPLUS, CUU ####[address] [address] [place] Hyaline Casts,Urine 0-8 Normal 0-8 [facility] Comment on above: Order Comment: Name Collection Type:: Clean-Voided Midstream Result Comment: PERF ORMED BY:[address] [place], [place] [id number] MEDICAL DIRECTORXAVIER AGARWAL M.D. Performed By: #### A DDONUAPLUS, CUU ####[address] [place] [address] [place] Ketones Ql (U) Negative Normal Negative [facility] Comment on above: Order Comment: Name Collection Type:: Clean-Voided Midstream Performed By: #### A DDONUAPLUS, CUU ####[address] [address] [facility] Leukocyte esterase Test strip Ql (U) 3+ High Negative [facility] Comment on above: Order Comment: Name Collection Type:: Clean-Voided Midstream Performed By: #### A DDONUAPLUS, CUU ####[address] [address] [facility] Nitrite,Urine Positive High Negative [facility] Comment on above: Order Comment: Name Collection Type:: Clean-Voided Midstream Performed By: #### A DDONUAPLUS, CUU ####[id number] [facility] Occult Blood,Urine Negative Normal Negative [facility] Comment on above: Order Comment: Name Collection Type:: Clean-Voided Midstream Result Comment: PERF ORMED BY:[address] [place], [place] [phone] MEDICAL DIRECTORXAVIER AGARWAL M.D. Performed By: #### A DDONUAPLUS, CUU ####[address] [address] [facility] pH (U) 5.5 [pH] Normal 5.0-9.0 [facility] Comment on above: Order Comment: Name Collection Type:: Clean-Voided Midstream Performed By: #### A DDONUAPLUS, CUU ####[id number] [facility] Protein,Urine Trace High Negative [facility] Comment on above: Order Comment: Name Collection Type:: Clean-Voided Midstream Performed By: #### A DDONUAPLUS, CUU ####[address] [address] [facility] RBC,Urine 3-4 Normal 0-4 [facility] Comment on above: Order Comment: Name Collection Type:: Clean-Voided Midstream Performed By: #### A DDONUAPLUS, CUU ####[id number] [facility] Specificy [place],Urine 1.020 Normal 1.001-1.03 0 [facility] Comment on above: Order Comment: Name Collection Type:: Clean-Voided Midstream Performed By: #### A DDONUAPLUS, CUU ####[id number] [facility] Squamous Epithelial Cell,Urine 3-4 High 0-2 [facility] Comment on above: Order Comment: Name Collection Type:: Clean-Voided Midstream Performed By: #### A DDONUAPLUS, CUU ####[address] [place] [id number] [facility] Urobilinogen,Urine Normal Normal Normal [facility] Comment on above: Order Comment: Name Collection Type:: Clean-Voided Midstream Performed By: #### A DDONUAPLUS, CUU ####[address] [id number] [facility] WBC,Urine Innumerable High 0-4 [facility] Comment on above: Order Comment: Name Collection Type:: Clean-Voided Midstream Performed By: #### A DDONUAPLUS, CUU ####[address] ECG 12 lead ECGon 04-11-2023 ECG 12 lead ECG Normal [facility] Eosinophils Auto (Bld) [#/Vo l]Ordered By: Antolin Apodaca on 04-11-2023 Eosinophils (Bld) [#/Vol] 0.3 10*3/uL 0.0-0.45 [facility] Eosinophils/100 WBC Auto (Bl d)Ordered By: Antolin Apodaca on 04-11-2023 Eosinophils/100 WBC (Bld) 4.4 % . [facility] Erythrocyte distribution wid th Auto (RBC) [Ratio]Ordered By: Antolin Apodaca on 04-11-2023 Erythrocyte distribution width (RBC) [Ratio] 13.9 % 11.9-15.3 [facility] Globulin Calc (S) [Mass/Vol] Ordered By: Antolin Apodaca on 04-11-2023 Globulin (S) [Mass/Vol] 2.4 g/dL [facility] Glucose [Mass/volume] in Ser um or PlasmaOrdered By: Antolin Apodaca on 04-11-2023 Glucose [Mass/Vol] 244 mg/dL 70-[address] [facility] Comment on above: ADA recommended refe rence rangeRandom Glucose Reference Range is dependent on time and content of last meal. Glucose of more than 200 mg/dL in a nonstressed, ambulatory subject supports the diagnosis of Diabetes Mellitus. Hematocrit Auto (Bld) [Volum e fraction]Ordered By: Antolin Apodaca on 04-11-2023 Hematocrit (Bld) [Volume fraction] 35.1 % 34.0-46.4 [facility] Hemoglobin [Mass/volume] in BloodOrdered By: Antolin Apodaca on 04-11-2023 Hemoglobin (Bld) [Mass/Vol] 11.8 g/dL 11.8-15.4 [facility] Ketones Auto test strip (U) [Mass/Vol]Ordered By: Aryan Kellogg on 04-11-2023 Ketones (U) [Mass/Vol] Negative Negative [facility] - CoagulationOrde red By: Antolin Apodaca on 04-11-2023 PT Coag (PPP) [Time] 12.5 s 9.0-12.9 [facility] - UrinalysisOrder ed By: Aryan Kellogg on 04-11-2023 Hyaline casts LM Ql (Urine sed) 0-8 [LPF] 0-8 [facility] Leukocytes [#/volume] correc babak for nucleated erythrocytes in Blood by Automated counOrdered By: Antolin Apodaca on 04-11-2023 WBC corrected for nucl RBC Auto (Bld) [#/Vol] 6.6 10*3/uL 3.8-11.6 [facility] Lymphocytes Auto (Bld) [#/Vo l]Ordered By: Antolin Apodaca on 04-11-2023 Lymphocytes (Bld) [#/Vol] 1.4 10*3/uL 1.00-4.8 [facility] Lymphocytes/100 WBC Auto (Bl d)Ordered By: Antolin Apodaca on 04-11-2023 Lymphocytes/100 WBC (Bld) 21.8 % . [facility] MCH Auto (RBC) [Entitic mass ]Ordered By: Antolin Apodaca on 04-11-2023 MCH (RBC) [Entitic mass] 31.4 pg 24.7-34.3 [facility] MCHC Auto (RBC) [Mass/Vol]Or dered By: Antolin Apodaca on 04-11-2023 MCHC (RBC) [Mass/Vol] 33.8 g/dL 32.0-35.0 [facility] MCV Auto (RBC) [Entitic vol] Ordered By: Antolin Apodaca on 04-11-2023 MCV (RBC) [Entitic vol] 93.1 fL 80-100 [facility] Monocytes Auto (Bld) [#/Vol] Ordered By: Antolin Apodaca on 04-11-2023 Monocytes (Bld) [#/Vol] 0.6 10*3/uL 0.0-0.8 [facility] Monocytes/100 WBC Auto (Bld) Ordered By: Antolin Apodaca on 04-11-2023 Monocytes/100 WBC (Bld) 8.5 % . [facility] Neutrophils Auto (Bld) [#/Vo l]Ordered By: Antolin Apodaca on 04-11-2023 Neutrophils (Bld) [#/Vol] 4.2 10*3/uL 1.8-7.7 [facility] Neutrophils/100 WBC Auto (Bl d)Ordered By: Antolin Apodaca on 04-11-2023 Neutrophils/100 WBC (Bld) 64.5 % . [facility] Nitrite Test strip Ql (U)Ord ered By: Aryan Kellogg on 04-11-2023 Nitrite Ql (U) Positive Negative [facility] No Panel InformationOrdered By: Antolin Apodaca on 04-11-2023 Estimated GFR (CKD-EPI) 43.191 mL/Min [facility] Creatinine Clearance (Chem 58.26 [facility] Nucleated erythrocytes [Pres ence] in Blood by Automated countOrdered By: Antolin Apodaca on 04-11-2023 Nucleated RBC Auto Ql (Bld) 0.0 /100{WBC} 0-0.5 [facility] Partial Thromboplastin Timeo n 04-11-2023 aPTT Coag (Bld) [Time] 32.2 s Normal 25.1-36.5 [facility] Comment on above: Result Comment: PERF ORMED BY:[facility].MERYL SANTOS [id number] MEDICAL DIRECTORXAVIER AGARWAL M.D. Performed By: #### C MP, PTT, CBC, PT ####[facility] [id number] [place] [address] [facility] Platelet mean volume Auto (B ld) [Entitic vol]Ordered By: Antolin Apodaca on 04-11-2023 Platelet mean volume (Bld) [Entitic vol] 7.7 fL 6.3-10.7 [facility] Platelet poor plasma interna tional normalized ratio (INR) by coagulation assay (relatOrdered By: Antolin Apodaca on 04-11-2023 INR Coag (PPP) [Relative time] 1.1 {INR} [facility] Comment on above: INR Therapeutic Rang e A) Pre- and Peroperative OAT started two weeks before surgery. NOT HIP SURGERY: 1.5 - 2.5 HIP SURGERY: 2 - 3B) Primary and secondary prevention of venous THROMBOSIS: 2 - 3C) Active venous thrombosis, pulmonary embolismand prevention of recurrent venous thrombosis: 2 - 3D) Prevention of arterial thromboembolismincluding patients with mechanical heart valves: 3 - 4.5 Platelets Auto (Bld) [#/Vol] Ordered By: Antolin Apodaca on 04-11-2023 Platelets (Bld) [#/Vol] 229 10*3/uL 150-450 [facility] Potassium [Moles/volume] in Serum or PlasmaOrdered By: Antolin Apodaca on 04-11-2023 Potassium [Moles/Vol] 4.1 mmol/L 3.5-5.1 [facility] Protein Auto test strip (U) [Mass/Vol]Ordered By: Aryan Kellogg on 04-11-2023 Protein (U) [Mass/Vol] Trace mg/dL Negative [facility] Protein [Mass/volume] in Ser um or PlasmaOrdered By: Antolin Apodaca on 04-11-2023 Protein [Mass/Vol] 6.2 g/dL 6.4-8.[address] [facility] Prothrombin Time INRon 04-11 INR Coag (PPP) [Relative time] 1.1 {INR} Normal [facility] Comment on above: Result Comment: INR Therapeutic Range A) Pre- and Peroperative OAT started [...] valves: 3 - 4.5 Performed By: #### C MP, PTT, CBC, PT ####[facility] [id number] [place] [address] [facility] PT Coag (PPP) [Time] 12.5 s Normal 9.0-12.9 [facility] Comment on above: Performed By: #### C MP, PTT, CBC, PT ####[facility] RBC Auto (Bld) [#/Vol]Ordere d By: Antolin Apodaca on 04-11-2023 RBC (Bld) [#/Vol] 3.77 10*6/uL 3.60-5.00 [facility] Serum or plasma albumin/glob ulin mass ratioOrdered By: Antolin Apodaca on 04-11-2023 Albumin/Globulin [Mass ratio] 1.6 {ratio} [facility] Serum or plasma anion gap de terminationOrdered By: Antolin Apodaca on 04-11-2023 Anion gap [Moles/Vol] 10.6 mmol/L 6.0-15.0 [facility] Sodium [Moles/volume] in Ser um or PlasmaOrdered By: Antolin Apodaca on 04-11-2023 Sodium [Moles/Vol] 139 mmol/L 136-[address] [facility] Specific gravity Auto test s trip (U) [Rel density]Ordered By: Aryan Kellogg on 04-11-2023 Specific gravity (U) [Rel density] 1.020 1.001-1.03 0 [facility] Squamous epithelial cells de tection in urine sediment by light microscopyOrdered By: Aryan Kellogg on 04-11-2023 Epithelial cells.squamous LM Ql (Urine sed) 3-4 [HPF] 0-2 [facility] Urea nitrogen [Mass/volume] in Serum or PlasmaOrdered By: Antolin Apodaca on 04-11-2023 Urea nitrogen [Mass/Vol] 24 mg/dL 7-25 [facility] Urine Cultureon 04-11-2023 Bacteria identified Cx Nom (U) Normal [facility] Comment on above: Performed By: #### A RALPH LOPEZ ####[facility] [id number] [place] [address] [facility] Urine bacteria detection by automated methodOrdered By: Aryan Kellogg on 04-11-2023 Bacteria Auto Ql (U) 4+ None Seen [facility] Urine clarity by refractomet ry automatedOrdered By: Aryan Kellogg on 04-11-2023 Clarity Refractometry automated (U) Cloudy Clear [facility] Urine culture routineOrdered By: Aryan Kellogg on 04-11-2023 Bacteria identified Cx Nom (U) Escherichia coli [facility] Urine glucose measurement by automated test strip (mass/volume)Ordered By: Aryan Kellogg on 04-11-2023 Glucose Auto test strip (U) [Mass/Vol] Normal mg/dL Normal [facility] Urine hemoglobin detection b y automated test stripOrdered By: Aryan Kellogg on 04-11-2023 Hemoglobin Auto test strip Ql (U) Negative Negative [facility] Urine leukocyte esterase det ection by automated test stripOrdered By: Aryan Kellogg on 04-11-2023 Leukocyte esterase Auto test strip Ql (U) 3+ Negative [facility] Urobilinogen Auto test strip (U) [Mass/Vol]Ordered By: Aryan Kellogg on 04-11-2023 Urobilinogen (U) [Mass/Vol] Normal mg/dL Normal [facility] WBC Auto (Bld) [#/Vol]Ordere d By: Antolin Apodaca on 04-11-2023 WBC (Bld) [#/Vol] 6.6 10*3/uL 3.8-11.[address] [facility] pH Auto test strip (U)Ordere d By: Aryan Kellogg on 04-11-2023 pH (U) 5.5 [pH] 5.0-9.0 [facility] Office Visit (Cardiology)on 04-10-2023 Follow-up visit Diagnoses/Problems Assessed Atherosclerosis of [place] coronary artery of [place] heart with angina pectoris (414.01,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) History of angioplasty (V45.89) (Z98.62) Hyperlipidemia (272.4) (E78.5) Hypertension (401.9) (I10) Morbid obesity (278.01) (E66.01) Dyspnea on exertion (786.09) (R06.09) Arteriosclerosis of coronary artery in patient with history of myocardial infarction (414.00,412) (I25.10,I25.2) Angina, class III (413.9) (I20.9) Encounter to discuss test results (V65.49) (Z71.2) Stage 3b chronic kidney disease (585.3) (N18.32) Orders Atherosclerosis of [place] coronary artery of [place] heart with angina pectoris, Chest pain, Diabetes, Hyperlipidemia Hemoglobin A1C; Status:Active - Retrospective Authorization; Requested for:10Sep2023; Atherosclerosis of [place] coronary artery of [place] heart with angina pectoris, History of angioplasty, Hyperlipidemia Complete Blood Count; Status:Active - Retrospective Authorization; Requested for:10Sep2023; Atherosclerosis of [place] coronary artery of [place] heart with angina pectoris, Hyperlipidemia Lipid Panel; [...] sleep apnea Long history of diabetes atherosclerotic [place] vessel coronary artery disease angina pectoris functional [...] creatinine 1.38 GFR 42. Assessment: 1. Atherosclerotic [place] vessel coronary artery disease with crescendo/class III [...] stenosis left circumflex relatively large 50% to 60%o (more content not included)... Normal [employer] Basic metabolic 2000 panelon 03-16-2023 Anion gap [Moles/Vol] 10 mmol/L 10 - 2 0 mmol/L [facility] Calcium [Mass/Vol] 8.5 mg/dL Low 8.6 - 10. 3 mg/dL [facility] Chloride [Moles/Vol] 103 mmol/L 98 - 10 7 mmol/L [facility] CO2 [Moles/Vol] 29 mmol/L 21 - 32 mmol/L [facility] Creatinine [Mass/Vol] 1.38 mg/dL High 0.50 - 1.05 mg/dL [facility] GFR Female 42 Abnormal - PINF [facility] Comment on above: CALCULATIONS OF AMISH MATED GFR ARE PERFORMED USING THE 2020 CKD-EPI STUDY REFIT EQUATION WITHOUT THE RACE VARIABLE FOR THE IDMS-TRACEABLE CREATININE METHODS. https://jasn.asnjournals.org/content//ASN.59147 15020 Glucose [Mass/Vol] 242 mg/dL High 74 - 99 mg/dL [facility] Interpretation and review of laboratory results Abnormal [facility] Potassium [Moles/Vol] 4.1 mmol/L 3.5 - 5.3 mmol/L [facility] Sodium [Moles/Vol] 138 mmol/L 136 - 145 mmol/L [facility] Urea nitrogen [Mass/Vol] 34 mg/dL High 6 - 23 mg/dL [facility] Electrocardiogram 12 LeadOrd ered By: Thierry Mishra on 03-16-2023 Atrial Rate 51 BPM [facility] Work Phone: P Isabel -15 degrees [facility] Work Phone: P Offset 185 ms [facility] Work Phone: P Onset 130 ms [facility] Work Phone: [phone] [place] Interval 176 ms [facility] Work Phone: Q Onset 218 ms [facility] Work Phone: QRS Count 8 beats [facility] Work Phone: QRS Duration 86 ms [facility] Work Phone: QT Interval 494 ms [facility] Work Phone: QTC Calculation(Bazett) 455 ms [facility] Work Phone: QTC Fredericia 468 ms [facility] Work Phone: R Isabel -10 degrees [facility] Work Phone: T Isabel 47 degrees [facility] Work Phone: T Offset 465 ms [facility] Work Phone: Ventricular Rate 51 BPM [facility] Work Phone: [facility] Work Phone: Electrocardiogram 12 Leadon 03-16-2023 Sinus bradycardia Otherwise normal ECG No previous ECGs available Confirmed by Thierry Mishra ([id number]) on 03/16/2023 11:11:46 PM MUSE Thierry Mishra M D - 03/16/2023 Sinus bradycardia Otherwise normal ECG No previous ECGs available Confirmed by Thierry Mishra ([id number]) on 03/16/2023 11:11:46 PM [facility] Work Phone: Glucose Test strip manual (B ld) [Mass/Vol]on 03-16-2023 Glucose [Mass/Vol] 179 mg/dL High 74 - 99 mg/dL [facility] Interpretation and review of laboratory results Abnormal [facility] Laboratory - Chemistry and C hemistry - challengeon 03-16-2023 Glucose [Mass/Vol] 179 mg/dL above high threshold 74 - 99 [facility]-Sandu cal 250 DO Work Phone: Anion gap [Moles/Vol] 10 mmol/L 10 - [address] [facility] cal 250 DO Work Phone: Calcium [Mass/Vol] 8.5 mg/dL below low threshold 8.6 - 10.[address] [facility]-[employer]u cal 250 DO Work Phone: Chloride [Moles/Vol] 103 mmol/L 98 - 107 [facility] cal 250 DO Work Phone: CO2 [Moles/Vol] 29 mmol/L 21 - 32 [facility] 250 DO Work Phone: Creatinine [Mass/Vol] 1.38 mg/dL above high threshold See Below [place] [address] DO Work Phone: Comment on above: Reference Range: 0.5 0 - 1.05 Glucose [Mass/Vol] 242 mg/dL above high threshold 74 - 99 [facility] cal 250 DO Work Phone: Potassium [Moles/Vol] 4.1 mmol/L 3.5 - 5.3 [place] [address] DO Work Phone: Sodium [Moles/Vol] 138 mmol/L 136 - 145 [facility] cal 250 DO Work Phone: Urea nitrogen [Mass/Vol] 34 mg/dL above high threshold 6 - 23 [place] [address] DO Work Phone: No Panel Informationon 03-16 42 {mL/min/1.73m2} Abnormal >90 [facility] DO Work Phone: Comment on above: CALCULATIONS OF AMISH MATED GFR ARE PERFORMED USING THE 2020 CKD-EPI STUDY REFIT EQUATION WITHOUT THE RACE VARIABLE FOR THE IDMS-TRACEABLE CREATININE METHODS.https://jasn.asnjournals.org/content/early//A SN.4877946257 ACT Coag (Bld)on 03-15-2023 Interpretation and review of laboratory results Abnormal [facility] ACTIVATED CLOTTING TIME LOWo n 03-15-2023 ACT Coag (Bld) 69 s [facility] Comment on above: Note new reference r balbina as of 02/01/2019. Target ACT range will vary based on the patient population, clinical status, and surgical intervention occurring. ACT Coag (Bld) 221 s [facility] Comment on above: Note new reference r balbina as of 02/01/2019. Target ACT range will vary based on the patient population, clinical status, and surgical intervention occurring. ACT Coag (Bld) 226 s [facility] Comment on above: Note new reference r balbina as of 02/01/2019. Target ACT range will vary based on the patient population, clinical status, and surgical intervention occurring. 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 Subsequently a 5 Senegalese sheath was placed in the right femoral [...] In order to perform IFR, initially 5 Senegalese guide catheter was tried, but the catheter would not selectively engage the left main coronary artery and was removed. The procedure was started again, with 6 Senegalese system. The right femoral sheath had to be changed to a 6 [place]egalese sheath, and a 6 [place]egalese guide catheter was advanced, the flow wire had to be recalibrated, and there was also difficulty navigating the FloWire into the obtuse marginal branch. There were technical challenges with the Angio-Seal hemostatic device because of extensive soft tissue in the groin area. Amplatz Super Stiff wire was used. Multiple dilatations were performed before the Angio-Seal device would advance. Hemo Personnel: + +-- + Name Duty + +-- + Joceline Ortega MD PROC 1 + +-- + Tejal Alexandra RT PROC SCRUB 1 + +-- + Vilma Sheffield RN PROC SCRUB 2 + +-- + Du Vera RN PROC CIRC 1 + +-- + Susan Santa RN PROC CIRC 2 + +-- + Melissa Hodges PROC RECORD 1 + +-- + Vivi Bedoya RN PROC NURSE 1 + +-- + Sedation Time: + + + Sedation Start/End Times Time + + + Start 03/15/2023 13:45:45 + + + Drugs Fentanyl 50 mcg IV per physician for sed + + + Equipment Used: + +---- -+ Date/Time Description + +---- -+ 03/15/2023 1:45:38 PM {5 Fr Catheter} - 5F [place]andro [employer]itor[employer] Catheter 110CM - Qty: 1 Each Part #: 61 + +---- -+ (more content not included)... 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 Worsening angina, new onset angina <=2 months and stable known coronary artery disease, with a chest pain assessment of typical angina. Study performed as an elective cath procedure. Medical History: Stress test performed: No. CTA performed: NoJostin Franz accessed: No. LVEF Assessed: No. Procedure Description: After infiltration with 2% Lidocaine, the right femoral artery was cannulated with a modified Seldinger technique. Subsequently a 5 Senegalese sheath was placed in the right femoral [...] In order to perform IFR, initially 5 Senegalese guide catheter was tried, but the catheter would not selectively engage the left main coronary artery and was removed. The procedure was started again, with 6 Senegalese system. The right femoral sheath had to be changed to a 6 Senegalese sheath, and a 6 Senegalese guide catheter was advanced, the flow wire had to be recalibrated, and there was also difficulty navigating the FloWire into the obtuse marginal branch. There were technical challenges with the Angio-Seal hemostatic device because of extensive soft tissue in the groin area. Amplatz Super Stiff wire was used. Multiple dilatations were performed before the Angio-Seal device would advance. Hemo Personnel: + +-- + Name Duty + +-- + Ortega, Joceline MD PROC MD 1 + +-- + Tejal Alexandra RT PROC SCRUB 1 + +-- + Vilma Sheffield RN PROC SCRUB 2 + +-- + Du Vera RN PROC CIRC 1 + +-- + Susan Santa RN PROC CIRC 2 + +-- + Melissa Hodges RT PROC RECORD 1 + +-- + Vivi Bedoya RN PROC NURSE 1 + +-- + Sedation Time: + + + Sedation Start/End Times Time + + + Start 03/15/2023 13:45:45 + + + Drugs Fentanyl 50 mcg IV per physician for sed + + + Equipment Used: + +---- ----+ Date/Time Description + +---- ----+ 03/15/2023 1:45:38 PM {5 Fr Catheter} - 5F Jose Alejandro Optitorque Catheter 110CM - Qty: 1 Each Part #: 61 + +---- ----+ 03/15/2023 1:59:49 PM {Sheath} - 5F Merit Stiffened Micropuncture Kit BX/10 - Qty: 1 Each Part #: 1393 + +---- ----+ 03/15/2023 1:59:54 PM {Sheath} - 5F Dewitt S (more content not included)... [facility] Work Phone: [facility] Work Phone: Electrocardiogram 12 Leadon 03-15-2023 Electrocardiogram 12 Lead Ventricular Rate 51 Atrial Rate 51 P-R Interval 176 QRS Duration 86 Q-T Interval 494 QTC Calculation(Bazett) 455 P Isabel -15 R Isabel -10 T Isabel 47 QRS Count 8 Q Onset 218 P Onset 130 P Offset 185 T Offset 465 QTC Fredericia 468 Diagnosis Class Borderline Abnormal Diagnosis Sinus bradycardia Otherwise normal ECG No previous ECGs available Confirmed by Thierry Mishra ([id number]) on 03/16/2023 11:11:46 PM Normal [facility] Glucose Test strip manual (B ld) [Mass/Vol]on 03-15-2023 Glucose [Mass/Vol] 236 mg/dL High 74 - 99 mg/dL [facility] Interpretation and review of laboratory results Abnormal [facility] Laboratory - Chemistry and C hemistry - challengeon 03-15-2023 Glucose [Mass/Vol] 236 mg/dL above high threshold 74 - 99 [facility] 250 DO Work Phone: No Panel Informationon 03-15 226 {SECONDS} above high threshold 89 - 169 [facility] cal 250 DO Work Phone: Comment on above: Note new reference r balbina as of 02/01/2019. Target ACT range will vary based on the patient population, clinical status, and surgical intervention occurring. 221 {SECONDS} above high threshold 89 - 169 [facility] 250 DO Work Phone: Comment on above: Note new reference r balbina as of 02/01/2019. Target ACT range will vary based on the patient population, clinical status, and surgical intervention occurring. 69 {SECONDS} below low threshold 89 - 169 [facility] 250 DO Work Phone: Comment on above: Note new reference luis mortensen as of 02/01/2019. Target ACT range will vary based on the patient population, clinical status, and surgical intervention occurring. [facility] 250 DO Work Phone: [email or web address] ?RetrieveTestByDateTime?Pa [email or web address]=[id number]&Date=&Time=12%3a37%3a42% 3a00&TestType=ECG&Site=11& OutputType=PDF&Ext=PDF [facility] 250 DO Work Phone: Sinus bradycardia [facility] cal 250 DO Work Phone: Borderline Abnormal [facility] 250 DO Work Phone: [phone] [facility] 250 DO Work Phone: [phone] [facility] 250 DO Work Phone: [phone] [facility] 250 DO Work Phone: [phone] [facility] 250 DO Work Phone: [phone] [facility] 250 DO Work Phone: [phone] [facility] 250 DO Work Phone: [phone] [facility] 250 DO Work Phone: [phone] [facility] 250 DO Work Phone: [phone] [facility] 250 DO Work Phone: [phone] [facility] 250 DO Work Phone: [phone] [facility] 250 DO Work Phone: [phone] [facility] 250 DO Work Phone: [phone] [facility] 250 DO Work Phone: [phone] [facility] 250 DO Work Phone: Basic Metabolic Panelon 05- Anion gap [Moles/Vol] 11.4 mmol/L Normal 6.0-15.0 [facility] Comment on above: Performed By: #### L IPID, CBC, BMP, PT ####[address] [address] [facility] Calcium [Mass/Vol] 8.6 mg/dL Normal 8.6-10.3 [facility] Comment on above: Performed By: #### L IPID, CBC, BMP, PT ####[address] [address] [facility] Chloride [Moles/Vol] 105 mmol/L Normal 98-107 [facility] Comment on above: Performed By: #### L IPID, CBC, BMP, PT ####[address] [address] [facility] CO2 [Moles/Vol] 29.6 mmol/L Normal 21.0-31.0 [facility] Comment on above: Performed By: #### L IPID, CBC, BMP, PT ####[address] [address] [facility] Creatinine [Mass/Vol] 1.05 mg/dL Normal 0.60-1.20 [facility] Comment on above: Performed By: #### L IPID, CBC, BMP, PT ####[address] [address] [facility] GFR/1.73 sq M.predicted MDRD (S/P/Bld) [Vol rate/Area] 57.875 mL/min/{1.73_m2} Normal [facility] Comment on above: Performed By: #### L IPID, CBC, BMP, PT ####[address] [address] [facility] Glucose [Mass/Vol] 77 mg/dL Normal 70-100 [facility] Comment on above: Result Comment: [facility] Glucose Reference Range is dependent on time and content of last meal. Glucose of more than 200 mg/dL in a nonstressed, ambulatory subject supports the diagnosis of Diabetes Mellitus. ADA recommended reference range Performed By: #### L IPID, CBC, BMP, PT ####[place] [id number] [address] Potassium [Moles/Vol] 4.0 mmol/L Normal 3.5-5.1 [facility] Comment on above: Performed By: #### L IPID, CBC, BMP, PT ####[place] [address] [address] Sodium [Moles/Vol] 142 mmol/L Normal 136-145 [facility] Comment on above: Performed By: #### L IPID, CBC, BMP, PT ####[address] Urea nitrogen [Mass/Vol] 22 mg/dL Normal 7-25 [facility] Comment on above: Performed By: #### L IPID, CBC, BMP, PT ####[place] [id number] [address] Basophils Auto (Bld) [#/Vol] Ordered By: Joceline Ortega on 03-08-2023 Basophils (Bld) [#/Vol] 0.1 10*3/uL 0.0-0.2 [facility] Basophils/100 WBC Auto (Bld) Ordered By: Joceline Ortega on 03-08-2023 Basophils/100 WBC (Bld) 0.9 % . [facility] Calcium [Mass/volume] in Ser um or PlasmaOrdered By: Joceline Ortega on 03-08-2023 Calcium [Mass/Vol] 8.6 mg/dL 8.6-10.[address] [facility] Carbon dioxide, total [Moles /volume] in Serum or PlasmaOrdered By: Joceline Ortega on 03-08-2023 CO2 [Moles/Vol] 29.6 mmol/L 21.0-31.0 [facility] Chloride [Moles/volume] in S moriah or PlasmaOrdered By: Joceline Ortega on 03-08-2023 Chloride [Moles/Vol] 105 mmol/L 98-107 [facility] Cholesterol [Mass/volume] in Serum or PlasmaOrdered By: Joceline Ortega on 03-08-2023 Cholesterol [Mass/Vol] 140 mg/dL 140-200 [facility] Comment on above: Chol less than 200 m g/dl low riskChol 201-239 mg/dl borderline riskChol 240 mg/dl and greater high risk Cholesterol in LDL Calc [Mas s/Vol]Ordered By: Joceline Ortega on 03-08-2023 Cholesterol in LDL [Mass/Vol] 75 mg/dL 0-100 [facility] Comment on above: LDL ATP III CLASSIFI CATIONLDL less than 100 mg/dL OptimalLDL 100-129 mg/dL Near or above optimalLDL 130-159 mg/dL Borderline highLDL 160-189 mg/dL HighLDL greater than 189 mg/dL Very high Cholesterol in VLDL Calc [Ma ss/Vol]Ordered By: Joceline Ortega on 03-08-2023 Cholesterol in VLDL [Mass/Vol] 19 mg/dL [facility] Complete Blood Count Auto Di ffon 03-08-2023 Basophils (Bld) [#/Vol] 0.1 10*3/uL Normal 0.0-0.2 [facility] Comment on above: Result Comment: PERF ORMED BY:[address] [place], [place] [id number] MEDICAL DIRECTORXAVIER AGARWAL M.D. Performed By: #### L IPID, CBC, BMP, PT ####[facility] [id number] [place] [address] [place] Basophils/100 WBC (Bld) 0.9 % Normal . [facility] Comment on above: Performed By: #### L IPID, CBC, BMP, PT ####[facility] [id number] [place] [address] [place] Eosinophils (Bld) [#/Vol] 0.3 10*3/uL Normal 0.0-0.45 [facility] Comment on above: Performed By: #### L IPID, CBC, BMP, PT ####[address] Eosinophils/100 WBC (Bld) 4.0 % Normal . [facility] Comment on above: Performed By: #### L IPID, CBC, BMP, PT ####[address] Erythrocyte distribution width (RBC) [Ratio] 13.8 % Normal 11.9-15.3 [facility] Comment on above: Performed By: #### L IPID, CBC, BMP, PT ####[address] Hematocrit (Bld) [Volume fraction] 39.3 % Normal 34.0-46.4 [facility] Comment on above: Performed By: #### L IPID, CBC, BMP, PT ####[address] Hemoglobin (Bld) [Mass/Vol] 13.0 g/dL Normal 11.8-15.4 [facility] Comment on above: Performed By: #### L IPID, CBC, BMP, PT ####[address] Lymphocytes (Bld) [#/Vol] 2.1 10*3/uL Normal 1.00-4.8 [facility] Comment on above: Performed By: #### L IPID, CBC, BMP, PT ####[address] Lymphocytes/100 WBC (Bld) 26.6 % Normal . [facility] Comment on above: Performed By: #### L IPID, CBC, BMP, PT ####[address] MCH (RBC) [Entitic mass] 31.0 pg Normal 24.7-34.3 [facility] Comment on above: Performed By: #### L IPID, CBC, BMP, PT ####[address] MCV (RBC) [Entitic vol] 93.2 fL Normal 80-100 [facility] Comment on above: Performed By: #### L IPID, CBC, BMP, PT ####[address] Mean Corpuscular HGB Conc 33.2 g/dL Normal 32.0-35.0 [facility] Comment on above: Performed By: #### L IPID, CBC, BMP, PT ####[address] Monocytes (Bld) [#/Vol] 0.5 10*3/uL Normal 0.0-0.8 [facility] Comment on above: Performed By: #### L IPID, CBC, BMP, PT ####[address] Monocytes/100 WBC (Bld) 6.8 % Normal . [facility] Comment on above: Performed By: #### L IPID, CBC, BMP, PT ####[address] Neutrophils (Bld) [#/Vol] 5.0 10*3/uL Normal 1.8-7.7 [facility] Comment on above: Performed By: #### L IPID, CBC, BMP, PT ####[address] Neutrophils/100 WBC (Bld) 61.7 % Normal . [facility] Comment on above: Performed By: #### L IPID, CBC, BMP, PT ####[address] NRBC% 0.1 /100{WBC} Normal 0-0.5 [facility] Comment on above: Performed By: #### L IPID, CBC, BMP, PT ####[address] Platelet mean volume (Bld) [Entitic vol] 7.3 fL Normal 6.3-10.7 [facility] Comment on above: Performed By: #### L IPID, CBC, BMP, PT ####[address] Platelets (Bld) [#/Vol] 311 10*3/uL Normal 150-450 [facility] Comment on above: Performed By: #### L IPID, CBC, BMP, PT ####[address] RBC (Bld) [#/Vol] 4.21 10*6/uL Normal 3.60-5.00 [facility] Comment on above: Performed By: #### L IPID, CBC, BMP, PT ####[address] WBC (Bld) [#/Vol] 8.1 10*3/uL Normal 3.8-11.6 [facility] Comment on above: Performed By: #### L IPID, CBC, BMP, PT ####[address] Creatinine [Mass/volume] in Serum or PlasmaOrdered By: Joceline Ortega on 03-08-2023 Creatinine [Mass/Vol] 1.05 mg/dL 0.60-1.20 [facility] Eosinophils Auto (Bld) [#/Vo l]Ordered By: Joceline Ortega on 03-08-2023 Eosinophils (Bld) [#/Vol] 0.3 10*3/uL 0.0-0.45 [facility] Eosinophils/100 WBC Auto (Bl d)Ordered By: Joceline Ortega on 03-08-2023 Eosinophils/100 WBC (Bld) 4.0 % . [facility] Erythrocyte distribution wid th Auto (RBC) [Ratio]Ordered By: Joceline Ortega on 03-08-2023 Erythrocyte distribution width (RBC) [Ratio] 13.8 % 11.9-15.3 [facility] Glucose [Mass/volume] in Ser um or PlasmaOrdered By: Joceline Ortega on 03-08-2023 Glucose [Mass/Vol] 77 mg/dL 70-[address] [facility] Comment on above: ADA recommended refe rence rangeRandom Glucose Reference Range is dependent on time and content of last meal. Glucose of more than 200 mg/dL in a nonstressed, ambulatory subject supports the diagnosis of Diabetes Mellitus. Hematocrit Auto (Bld) [Volum e fraction]Ordered By: Joceline Ortega on 03-08-2023 Hematocrit (Bld) [Volume fraction] 39.3 % 34.0-46.4 [facility] Hemoglobin [Mass/volume] in BloodOrdered By: Joceline Ortega on 03-08-2023 Hemoglobin (Bld) [Mass/Vol] 13.0 g/dL 11.8-15.4 [facility] Laboratory - Chemistry and C hemistry - challengeon 03-08-2023 Cholesterol [Mass/Vol] 140\S\140 Normal 140-200 [facility] DO Work Phone: Comment on above: Chol less than 200 m g/dl low risk Chol 201-239 mg/dl borderline risk Chol 240 mg/dl and greater high risk Cholesterol in LDL [Mass/Vol] 75\S\75 Normal 0-100 [facility] cal 250 DO Work Phone: Comment on above: LDL ATP III CLASSIFI CATION LDL less than 100 mg/dL Optimal LDL 100-129 mg/dL Near or above optimal LDL 130-159 mg/dL Borderline high LDL 160-189 mg/dL High LDL greater than 189 mg/dL Very high Laboratory - CoagulationOrde red By: Joceline Ortega on 03-08-2023 PT Coag (PPP) [Time] 11.7 s 9.0-12.9 [facility] Leukocytes [#/volume] correc babak for nucleated erythrocytes in Blood by Automated counOrdered By: Joceline Ortega on 03-08-2023 WBC corrected for nucl RBC Auto (Bld) [#/Vol] 8.1 10*3/uL 3.8-11.6 [facility] Lipid Panelon 03-08-2023 Cholesterol [Mass/Vol] 140 mg/dL Normal 140-200 [facility] Comment on above: Result Comment: Chol less than 200 mg/dl low risk Chol 201-239 mg/dl borderline risk Chol 240 mg/dl and greater high risk Performed By: #### L IPID, CBC, BMP, PT ####[address] [address] [facility] Cholesterol in HDL [Mass/Vol] 46 mg/dL Normal 35-85 [facility] Comment on above: Result Comment: HDL CHOL ATP-III CLASSIFICATION Cardiovascular Risk HDL > or equal to 60 mg/dL LOW HDL < 40 mg/dL HIGH Performed By: #### L IPID, CBC, BMP, PT ####[address] [address] [facility] Cholesterol.total/Chol esterol in HDL [Mass ratio] 3.0 {ratio} Normal <5.0 [facility] Comment on above: Result Comment: PERF ORMED BY:[address]ETJ[address]inDALL[address], [place] [phone] MEDICAL DIRECTORXAVIER AGARWAL M.D. Performed By: #### L IPID, CBC, BMP, PT ####[place] [id number] [facility] LDL Cholesterol,Calculated 75 mg/dL Normal 0-100 [facility] Comment on above: Result Comment: LDL ATP III CLASSIFICATION LDL less than 100 mg/dL Optimal LDL 100-129 mg/dL Near or above optimal LDL 130-159 mg/dL Borderline high LDL 160-189 mg/dL High LDL greater than 189 mg/dL Very high Performed By: #### L IPID, CBC, BMP, PT ####[address] [address] [facility] Triglyceride w/Reflex 96 mg/dL Normal 0-149 [facility] Comment on above: Result Comment: TRIG ATP III CLASSIFICATION TRIG less than 150 mg/dL Normal TRIG 150-199 mg/dL Borderline high TRIG 200-500 mg/dL High TRIG greater than 500 mg/dL Very high Standard traceable to the Center for Disease Conrtrol and Prevention (CDC) test method. Performed By: #### L IPID, CBC, BMP, PT ####[address] [address] [facility] VLDL CHOLESTEROL 19 mg/dL Normal [facility] Comment on above: Performed By: #### L IPID, CBC, BMP, PT ####[facility] [id number] Lymphocytes Auto (Bld) [#/Vo l]Ordered By: Joceline Ortega on 03-08-2023 Lymphocytes (Bld) [#/Vol] 2.1 10*3/uL 1.00-4.8 [facility] Lymphocytes/100 WBC Auto (Bl d)Ordered By: Joceline Ortega on 03-08-2023 Lymphocytes/100 WBC (Bld) 26.6 % . [facility] MCH Auto (RBC) [Entitic mass ]Ordered By: Joceline Ortega on 03-08-2023 MCH (RBC) [Entitic mass] 31.0 pg 24.7-34.3 [facility] MCHC Auto (RBC) [Mass/Vol]Or dered By: Joceline Ortega on 03-08-2023 MCHC (RBC) [Mass/Vol] 33.2 g/dL 32.0-35.0 [facility] MCV Auto (RBC) [Entitic vol] Ordered By: Joceline Ortega on 03-08-2023 MCV (RBC) [Entitic vol] 93.2 fL 80-100 [facility] Monocytes Auto (Bld) [#/Vol] Ordered By: Joceline Ortega on 03-08-2023 Monocytes (Bld) [#/Vol] 0.5 10*3/uL 0.0-0.8 [facility] Monocytes/100 WBC Auto (Bld) Ordered By: Joceline Ortega on 03-08-2023 Monocytes/100 WBC (Bld) 6.8 % . [facility] Neutrophils Auto (Bld) [#/Vo l]Ordered By: Joceline Ortega on 03-08-2023 Neutrophils (Bld) [#/Vol] 5.0 10*3/uL 1.8-7.7 [facility] Neutrophils/100 WBC Auto (Bl d)Ordered By: Joceline Ortega on 03-08-2023 Neutrophils/100 WBC (Bld) 61.7 % . [facility] No Panel InformationOrdered By: Joceline Ortega on 03-08-2023 Estimated GFR (CKD-EPI) 57.875 mL/Min [facility] Creatinine Clearance (Chem N/A [facility] No Panel Informationon 03-08 0.1\S\0.1 Normal 0-0.5 [facility] cal 250 DO Work Phone: Comment on above: PERFORMED BY:[facility] [place], [place] [phone] MEDICAL DIRECTORXAVIER AGARWAL M.D. 0.3\S\0.3 Normal 0.0-0.45 [facility] cal 250 DO Work Phone: [phone] 0.5\S\0.5 Normal 0.0-0.8 [facility] cal 250 DO Work Phone: [phone] 2.1\S\2.1 Normal 1.00-4.8 [facility] cal 250 DO Work Phone: [phone] 5.0\S\5.0 Normal 1.8-7.7 [facility] cal 250 DO Work Phone: [phone] 0.9\S\0.9 Normal . [facility] 250 DO Work Phone: [phone] 4.0\S\4.0 Normal 3.5-5.1 [facility] cal 250 DO Work Phone: [phone] 6.8\S\6.8 Normal . [facility] 250 DO Work Phone: [phone] 26.6\S\26.6 Normal . [facility] 250 DO Work Phone: [phone] 61.7\S\61.7 Normal . [facility] cal 250 DO Work Phone: [phone] 7.3\S\7.3 Normal 6.3-10.7 [facility] cal 250 DO Work Phone: [phone] 311\S\311 Normal 150-450 [facility] cal 250 DO Work Phone: [phone] 13.8\S\13.8 Normal 11.9-15.3 [facility]u cal 250 DO Work Phone: [phone] 33.2\S\33.2 Normal 32.0-35.0 [facility]u cal 250 DO Work Phone: [phone] 31.0\S\31.0 Normal 24.7-34.3 [facility]riley cal 250 DO Work Phone: [phone] 93.2\S\93.2 Normal 80-100 [facility] cal 250 DO Work Phone: [phone] 39.3\S\39.3 Normal 34.0-46.4 [facility]riley cal 250 DO Work Phone: [phone] 13.0\S\13.0 Normal 11.8-15.4 [facility] cal 250 DO Work Phone: [phone] 4.21\S\4.21 Normal 3.60-5.00 [facility] cal 250 DO Work Phone: [phone] 8.1\S\8.1 Normal 3.8-11.6 [facility] cal 250 DO Work Phone: [phone] 1.0\S\1.0 Normal [facility] cal 250 DO Work Phone: [phone] Comment on above: INR Therapeutic Rang e A) Pre- and Peroperative OAT started two weeks before surgery. NOT HIP SURGERY: 1.5 - 2.5 HIP SURGERY: 2 - 3 B) Primary and secondary prevention of venous THROMBOSIS: 2 - 3 C) Active venous thrombosis, pulmonary embolism and prevention of recurrent venous thrombosis: 2 - 3 D) Prevention of arterial thromboembolism including patients with mechanical heart valves: 3 - 4.5PERFORMED BY:[facility] AVFerJostinDANIELLE [place] [id number] MEDICAL DIRECTORXAVIER AGARWAL M.D. 11.7\S\11.7 Normal 9.0-12.9 [facility] cal 250 DO Work Phone: 57.875\S\57.875 [facility] DO Work Phone: 11.4\S\11.4 Normal 6.0-15.0 [facility] DO Work Phone: 8.6\S\8.6 Normal 8.6-10.3 [facility] DO Work Phone: 29.6\S\29.6 Normal 21.0-31.0 [facility] cal 250 DO Work Phone: [phone] 105\S\105 Normal 98-107 [facility] Nik mccall 250 DO Work Phone: [phone] 142\S\142 Normal 136-145 [facility] DO Work Phone: 1.05\S\1.05 Normal 0.60-1.20 [facility]odeF[employer]al cal 250 DO Work Phone: [phone] 22\S\22 Normal 7-25 [facility] Ne[facility]odeF[facility]al cal 250 DO Work Phone: 77\S\77 Normal 70-100 [facility] 250 DO Work Phone: Comment on above: Random Glucose Refer ence Range is dependent on time and content of last meal. Glucose of more than 200 mg/dL in a nonstressed, ambulatory subject supports the diagnosis of Diabetes Mellitus. ADA recommended reference range 3.0\S\3.0 Normal <5.0 [facility] [employer] ArraysFazal cal 250 DO Work Phone: Comment on above: PERFORMED BY:[facility] [place] [phone] MEDICAL DIRECTORXAVIER AGARWAL M.D. 19\S\19 Normal [facility] [employer]integrated 250 DO Work Phone: 96\S\96 Normal 0-149 [facility] [employer] 250 DO Work Phone: Comment on above: TRIG ATP III CLASSIF ICATION TRIG less than 150 mg/dL Normal TRIG 150-199 mg/dL Borderline high TRIG 200-500 mg/dL High TRIG greater than 500 mg/dL Very high Standard traceable to the Center for Disease Conrtrol and Prevention (CDC) test method. 46\S\46 Normal 35-85 [facility] [employer] 250 DO Work Phone: Comment on above: HDL CHOL ATP-III CLA SSIFICATION Cardiovascular Risk HDL > or equal to 60 mg/dL LOW HDL < 40 mg/dL HIGH Nucleated erythrocytes [Pres ence] in Blood by Automated countOrdered By: Joceline Ortega on 03-08-2023 Nucleated RBC Auto Ql (Bld) 0.1 /100{WBC} 0-0.5 [facility] Platelet mean volume Auto (B ld) [Entitic vol]Ordered By: Joceline Ortega on 03-08-2023 Platelet mean volume (Bld) [Entitic vol] 7.3 fL 6.3-10.7 [facility] Platelet poor plasma interna tional normalized ratio (INR) by coagulation assay (relatOrdered By: Joceline Ortega on 03-08-2023 INR Coag (PPP) [Relative time] 1.0 {INR} [facility] Comment on above: INR Therapeutic Rang e A) Pre- and Peroperative OAT started two weeks before surgery. NOT HIP SURGERY: 1.5 - 2.5 HIP SURGERY: 2 - 3B) Primary and secondary prevention of venous THROMBOSIS: 2 - 3C) Active venous thrombosis, pulmonary embolismand prevention of recurrent venous thrombosis: 2 - 3D) Prevention of arterial thromboembolismincluding patients with mechanical heart valves: 3 - 4.5 Platelets Auto (Bld) [#/Vol] Ordered By: Joceline Ortega on 03-08-2023 Platelets (Bld) [#/Vol] 311 10*3/uL 150-450 [facility] Potassium [Moles/volume] in Serum or PlasmaOrdered By: Joceline Ortega on 03-08-2023 Potassium [Moles/Vol] 4.0 mmol/L 3.5-5.1 [facility] Prothrombin Time INRon 03-08 INR Coag (PPP) [Relative time] 1.0 {INR} Normal [facility] Comment on above: Result Comment: INR Therapeutic Range A) Pre- and Peroperative OAT started two weeks before surgery. NOT HIP SURGERY: 1.5 - 2.5 HIP SURGERY: 2 - 3 B) Primary and secondary prevention of venous THROMBOSIS: 2 - 3 C) Active venous thrombosis, pulmonary embolism and prevention of recurrent venous thrombosis: 2 - 3 D) Prevention of arterial thromboembolism including patients with mechanical heart valves: 3 - 4.5PERFORMED BY:[place] [place], [place] [phone] MEDICAL DIRECTORXAVIER AGARWAL M.D. Performed By: #### L IPID, CBC, BMP, PT ####[id number] [place] [address] [facility] PT Coag (PPP) [Time] 11.7 s Normal 9.0-12.9 [facility] Comment on above: Performed By: #### L IPID, CBC, BMP, PT ####[facility] [place] [address] [facility] RBC Auto (Bld) [#/Vol]Ordere d By: Joceline Ortega on 03-08-2023 RBC (Bld) [#/Vol] 4.21 10*6/uL 3.60-5.00 [facility] Serum or plasma anion gap de terminationOrdered By: Joceline Ortega on 03-08-2023 Anion gap [Moles/Vol] 11.4 mmol/L 6.0-15.0 [facility] Serum or plasma high density lipoprotein (HDL) cholesterol measurementOrdered By: Joceline Ortega on 03-08-2023 Cholesterol in HDL [Mass/Vol] 46 mg/dL 35-85 [facility] Comment on above: HDL CHOL ATP-III CLA SSIFICATION Cardiovascular RiskHDL > or equal to 60 mg/dL LOWHDL < 40 mg/dL HIGH Serum or plasma total choles terol/high density lipoprotein (HDL) cholesterol mass ratOrdered By: Joceline Ortega on 03-08-2023 Cholesterol.total/Chol esterol in HDL [Mass ratio] 3.0 {ratio} <5.0 [facility] Sodium [Moles/volume] in Ser um or PlasmaOrdered By: Joceline Ortega on 03-08-2023 Sodium [Moles/Vol] 142 mmol/L 136-[address] [facility] Triglyceride [Mass/volume] i n Serum or PlasmaOrdered By: Joceline Ortega on 03-08-2023 Triglyceride [Mass/Vol] 96 mg/dL 0-149 [facility] Comment on above: TRIG ATP III CLASSIF ICATIONTRIG less than 150 mg/dL NormalTRIG 150-199 mg/dL Borderline highTRIG 200-500 mg/dL High TRIG greater than 500 mg/dL Very highStandard traceable to the Center for Disease Conrtrol and Prevention (CDC) test method. Urea nitrogen [Mass/volume] in Serum or PlasmaOrdered By: Joceline Ortega on 03-08-2023 Urea nitrogen [Mass/Vol] 22 mg/dL 7-25 [facility] WBC Auto (Bld) [#/Vol]Ordere d By: Joceline Ortega on 03-08-2023 WBC (Bld) [#/Vol] 8.1 10*3/uL 3.8-11.[address] 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) (I25.110) Hypertension (401.9) (I10) Hyperlipidemia (272.4) (E78.5) Patient new to provider History of angioplasty (V45.89) (Z98.62) Diabetes (250.00) (E11.9) Never a smoker Morbid obesity (278.01) (E66.01) Sleep apnea (780.57) (G47.30) Pre-op testing (V72.84) (Z01.818) Atherosclerosis of [place] coronary artery of [place] heart with angina pectoris (414.01,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) Dyspnea on exertion (786.09) (R06.09) Orders Atherosclerosis of [place] coronary artery of [place] heart with unstable angina pectoris, Chest pain [...] 1 TABLET Every twelve hours Atherosclerosis of [place] coronary artery of [place] heart with unstable angina pectoris, Chest pain, History of angioplasty, Hyperlipidemia Cardiac Catherization; Status:Active - Retrospective Authorization; Requested for:06Mar2023; Atherosclerosis of [place] coronary artery of [place] heart with unstable angina pectoris, Chest pain, [...] FALL PREVENTION EDUCATION GIVEN Nitro sent to [employer] increase Metoprolol Tartrate to 50mg twice [...] cardiology consultation at the request of Dr. Bergeron regarding atherosclerotic [place] vessel coronary artery disease and chest discomfort. [...] process of getting ready to move to [place] to be closer to patient's son. This [...] compelling and she has history of atherosclerotic [place] vessel coronary artery disease and the symptoms remind her about her prior angina pectoris. The symptoms are described as an anterior pressure, moderate in (more content not included)... Normal [employer] Tobacco Screening.on 023 Adult depression screening assessment No -[facility] Heart-Sandu cal 250 DO Work Phone: Fall risk assessment b) One or more fall s in the last year [facility] [employer] cal 250 DO Work Phone: Tobacco use status CP b) No [facility] [employer]2integrated 250 DO Work Phone: XR Chest 2 Views*on 07-29-20 22 XR Chest 2 Views* CLINICAL HISTORY: Shortness of breath. Cough. COMPARISON: 06/09/2020. RESULT: No consolidation. No pleural effusion. No pneumothorax. Mildly coarsened lung markings, chronic appearing and similar to prior. Stable cardiomediastinal silhouette. Aortic vascular calcification. No acute osseous findings. Degenerative changes. Spinal stimulator, unchanged. Postsurgical changes lower cervical spine. IMPRESSION: No acute radiographic abnormality. Report reported and signed by Oswald Parr on 07/29/2022 1226 Normal [facility] [employer] Activated partial thrombopla stin time (aPTT) in platelet poor plasma by coagulation aOrdered By: Yury Barry on 05-19-2022 aPTT Coag (PPP) [Time] 32.3 s 25.1-36.5 [facility] Automated erythrocytes count in urine sediment (number/area)Ordered By: Yury Barry on 05-19-2022 RBC Auto (Urine sed) [#/Area] 0-1 [HPF] 0-4 [facility] Automated leukocytes count i n urine sediment (number/area)Ordered By: Yury Barry on 05-19-2022 WBC Auto (Urine sed) [#/Area] 3-4 [HPF] 0-4 [facility] Automated urine hyaline cast s count (number/volume)Ordered By: Yury Barry on 05-19-2022 Hyaline casts Auto (U) [#/Vol] 0-8 [LPF] 0-1 [facility] Basophils Auto (Bld) [#/Vol] Ordered By: Yury Barry on 05-19-2022 Basophils (Bld) [#/Vol] 0.1 10*3/uL 0.0-0.2 [facility] Basophils/100 WBC Auto (Bld) Ordered By: Yury Barry on 05-19-2022 Basophils/100 WBC (Bld) 0.9 % . [facility] Bilirubin Test strip Ql (U)O rdered By: Yury Barry on 05-19-2022 Bilirubin Ql (U) Negative Negative [facility] Blood hemoglobin measurement (mass/volume)Ordered By: Yury Barry on 05-19-2022 Hemoglobin (Bld) [Mass/Vol] 14.0 g/dL 11.8-15.4 [facility] Blood leukocytes automated c ount (number/volume)Ordered By: Yury Barry on 05-19-2022 WBC (Bld) [#/Vol] 8.2 10*3/uL 4.5-11.[address] [facility] Casts typing in urine sedime nt by light microscopyOrdered By: Yury Barry on 05-19-2022 Casts LM Nom (Urine sed) None seen [LPF] None Seen [facility] Color Auto (U)Ordered By: Rico Barry on 05-19-2022 Color (U) Yellow Yellow [facility] Eosinophils Auto (Bld) [#/Vo l]Ordered By: Yury Barry on 05-19-2022 Eosinophils (Bld) [#/Vol] 0.2 10*3/uL 0.0-0.45 [facility] Eosinophils/100 WBC Auto (Bl d)Ordered By: Yury Barry on 05-19-2022 Eosinophils/100 WBC (Bld) 2.8 % . [facility] Erythrocyte distribution wid th Auto (RBC) [Ratio]Ordered By: Yury Barry on 05-19-2022 Erythrocyte distribution width (RBC) [Ratio] 13.9 % 11.9-15.3 [facility] Hematocrit Auto (Bld) [Volum e fraction]Ordered By: Yury Barry on 05-19-2022 Hematocrit (Bld) [Volume fraction] 41.7 % 34.0-46.4 [facility] Ketones Auto test strip (U) [Mass/Vol]Ordered By: Yury Barry on 05-19-2022 Ketones (U) [Mass/Vol] Trace Negative [facility] - CoagulationOrde red By: Yury Barry on 05-19-2022 PT Coag (PPP) [Time] 11.9 s 9.0-12.9 [facility] - Hematology and Cell countsOrdered By: Yury Barry on 05-19-2022 Nucleated RBC/100 WBC (Bld) [Ratio] 0.0 % 0-0.5 [facility] Lymphocytes Auto (Bld) [#/Vo l]Ordered By: Yury Barry on 05-19-2022 Lymphocytes (Bld) [#/Vol] 1.6 10*3/uL 1.00-4.8 [facility] Lymphocytes/100 WBC Auto (Bl d)Ordered By: Yury Barry on 05-19-2022 Lymphocytes/100 WBC (Bld) 20.1 % . [facility] MCH Auto (RBC) [Entitic mass ]Ordered By: Yury Barry on 05-19-2022 MCH (RBC) [Entitic mass] 31.1 pg 24.7-34.3 [facility] MCHC Auto (RBC) [Mass/Vol]Or dered By: Yury Barry on 05-19-2022 MCHC (RBC) [Mass/Vol] 33.7 g/dL 32.0-35.0 [facility] MCV Auto (RBC) [Entitic vol] Ordered By: Yury Barry on 05-19-2022 MCV (RBC) [Entitic vol] 92.5 fL 80-100 [facility] Monocytes Auto (Bld) [#/Vol] Ordered By: Yury Barry on 05-19-2022 Monocytes (Bld) [#/Vol] 0.5 10*3/uL 0.0-0.8 [facility] Monocytes/100 WBC Auto (Bld) Ordered By: Yury Barry on 05-19-2022 Monocytes/100 WBC (Bld) 6.2 % . [facility] Neutrophils Auto (Bld) [#/Vo l]Ordered By: Yury Barry on 05-19-2022 Neutrophils (Bld) [#/Vol] 5.7 10*3/uL 1.8-7.7 [facility] Neutrophils/100 WBC Auto (Bl d)Ordered By: Yury Barry on 05-19-2022 Neutrophils/100 WBC (Bld) 70.0 % . [facility] Nitrite Test strip Ql (U)Ord ered By: Yury Barry on 05-19-2022 Nitrite Ql (U) Negative Negative [facility] Platelet mean volume Auto (B ld) [Entitic vol]Ordered By: Yury Barry on 05-19-2022 Platelet mean volume (Bld) [Entitic vol] 7.8 fL 6.3-10.7 [facility] Platelet poor plasma interna tional normalized ratio (INR) by coagulation assay (relatOrdered By: Yury Barry on 05-19-2022 INR Coag (PPP) [Relative time] 1.1 {INR} [facility] Comment on above: INR Therapeutic Rang e A) Pre- and Peroperative OAT started two weeks before surgery. NOT HIP SURGERY: 1.5 - 2.5 HIP SURGERY: 2 - 3 B) Primary and secondary prevention of venous THROMBOSIS: 2 - 3 C) Active venous thrombosis, pulmonary embolism and prevention of recurrent venous thrombosis: 2 - 3 D) Prevention of arterial thromboembolism including patients with mechanical heart valves: 3 - 4.5 Platelets Auto (Bld) [#/Vol] Ordered By: Yury Barry on 05-19-2022 Platelets (Bld) [#/Vol] 300 10*3/uL 150-450 [facility] Protein Auto test strip (U) [Mass/Vol]Ordered By: Yury Barry on 05-19-2022 Protein (U) [Mass/Vol] Trace mg/dL Negative F [facility] RBC Auto (Bld) [#/Vol]Ordere d By: Yury Barry on 05-19-2022 RBC (Bld) [#/Vol] 4.51 10*6/uL 3.60-5.00 [facility] Specific gravity Auto test s trip (U) [Rel density]Ordered By: Yury Barry on 05-19-2022 Specific gravity (U) [Rel density] 1.021 1.001-1.03 0 [facility] Squamous epithelial cells de tection in urine sediment by light microscopyOrdered By: Yury Barry on 05-19-2022 Epithelial cells.squamous LM Ql (Urine sed) 20-30 [HPF] 0-2 [facility] Urine bacteria detection by automated methodOrdered By: Yury Barry on 05-19-2022 Bacteria Auto Ql (U) 3+ None Seen [facility] Urine clarity by refractomet ry automatedOrdered By: Yury Barry on 05-19-2022 Clarity Refractometry automated (U) Cloudy Clear [facility] Urine glucose measurement by automated test strip (mass/volume)Ordered By: Yury Barry on 05-19-2022 Glucose Auto test strip (U) [Mass/Vol] Normal mg/dL Normal [facility] Urine hemoglobin detection b y automated test stripOrdered By: Yury Barry on 05-19-2022 Hemoglobin Auto test strip Ql (U) Trace Negative [facility] Urine leukocyte esterase det ection by automated test stripOrdered By: Yury Barry on 05-19-2022 Leukocyte esterase Auto test strip Ql (U) 1+ Negative [facility] Urobilinogen Auto test strip (U) [Mass/Vol]Ordered By: Yury Barry on 05-19-2022 Urobilinogen (U) [Mass/Vol] Normal mg/dL Normal [facility] pH Auto test strip (U)Ordere d By: Yury Barry on 05-19-2022 pH (U) 5.0 [pH] 5.0-9.0 [facility] Complete Blood Count with Au to Diffon 12-21-2021 Basophils (Bld) [#/Vol] 0.09 10*3/uL Normal 0.00-0.20 [facility] [employer] Comment on above: Performed By: #### C BCAD, CMP, VITD, PHOS #### [facility] [address] [place], [place] [id number] Basophils/100 WBC (Bld) 0.8 % Normal [facility] [employer] Comment on above: Performed By: #### C BCAD, CMP, VITD, PHOS #### [facility] [address] [place] [id number] Eosinophils (Bld) [#/Vol] 0.19 10*3/uL Normal 0.02-0.50 [facility] [employer] Comment on above: Performed By: #### C BCAD, CMP, VITD, PHOS #### [facility] [address] [place] [id number] Eosinophils/100 WBC (Bld) 1.8 % Normal [facility] [employer] Comment on above: Performed By: #### C BCAD, CMP, VITD, PHOS #### [facility] [address] [place], [place] [id number] Erythrocyte distribution width (RBC) [Ratio] 13.1 % Normal 11.0-15.0 [facility] Specialist Comment on above: Performed By: #### C BCAD, CMP, VITD, PHOS #### [facility] [address] [place], [place] [id number] Hematocrit (Bld) [Volume fraction] 41.4 % Normal 35.0-47.0 [facility] Special[facility] Comment on above: Performed By: #### C BCAD, CMP, VITD, PHOS #### [facility] [address] [place], [place] [id number] Hemoglobin (Bld) [Mass/Vol] 13.1 g/dL Normal 11.6-15.5 [facility] [employer] Comment on above: Performed By: #### C BCAD, CMP, VITD, PHOS #### [facility] [address] [place], [place] [id number] Lymphocytes (Bld) [#/Vol] 1.3 10*3/uL Normal 0.9-3.9 [facility] Special[facility] Comment on above: Performed By: #### C BCAD, CMP, VITD, PHOS #### [facility] [address] [place], [place] [id number] Lymphocytes/100 WBC (Bld) 12.3 % Normal [facility] Special[facility] Comment on above: Performed By: #### C BCAD, CMP, VITD, PHOS #### [facility] [address], [place] [id number] MCH (RBC) [Entitic mass] 30.3 pg Normal 27.0-33.0 [facility] Comment on above: Performed By: #### C BCAD, CMP, VITD, PHOS #### [facility] [address] [place], [place] [id number] MCHC (RBC) [Mass/Vol] 31.6 g/dL Low 32.0-36.0 [facility] Comment on above: Performed By: #### C BCAD, CMP, VITD, PHOS #### [facility] [address] [place], [place] [id number] MCV (RBC) [Entitic vol] 96 fL Normal 80-100 [facility] [employer] Comment on above: Performed By: #### C BCAD, CMP, VITD, PHOS #### [facility] [address], [place] [id number] Monocytes (Bld) [#/Vol] 0.7 10*3/uL Normal 0.2-0.9 [facility] [employer] Comment on above: Performed By: #### C BCAD, CMP, VITD, PHOS #### [facility] [address], [place] [id number] Monocytes/100 WBC (Bld) 6.6 % Normal [facility] [employer] Comment on above: Performed By: #### C BCAD, CMP, VITD, PHOS #### [facility] [address], [place] [id number] Neutrophils (Bld) [#/Vol] 8.3 10*3/uL High 1.5-7.8 [facility] [employer] Comment on above: Performed By: #### C BCAD, CMP, VITD, PHOS #### [facility] [address] [place], [place] [id number] Neutrophils/100 WBC (Bld) 77.8 % Normal [facility] [employer] Comment on above: Performed By: #### C BCAD, CMP, VITD, PHOS #### [facility] [address], [place] [id number] Platelet mean volume (Bld) [Entitic vol] 9.20 fL Normal 7.50-12.50 [facility] [employer] Comment on above: Performed By: #### C BCAD, CMP, VITD, PHOS #### [facility] [address], [place] [id number] Platelets (Bld) [#/Vol] 404 10*3/uL High 140-400 [facility] [employer] Comment on above: Performed By: #### C BCAD, CMP, VITD, PHOS #### [facility] [address], [place] [id number] RBC (Bld) [#/Vol] 4.32 10*6/uL Normal 3.90-5.20 [place] [employer] Comment on above: Performed By: #### C BCAD, CMP, VITD, PHOS #### [facility] [address], [place] [id number] RDW-SD 45.4 fL Normal 37.0-50.0 [facility] Special[facility] Comment on above: Performed By: #### C BCAD, CMP, VITD, PHOS #### [facility] [address], [place] [id number] WBC (Bld) [#/Vol] 10.6 10*3/uL Normal 3.8-11.0 [facility] Comment on above: Performed By: #### C BCAD, CMP, VITD, PHOS #### [facility] [address] [place], [place] [id number] Comprehensive Metabolic Pane [facility] 12-21-2021 Albumin [Mass/Vol] 4.1 g/dL Normal 3.6-5.1 [facility] Comment on above: Performed By: #### C BCAD, CMP, VITD, PHOS #### [facility] [address], [place] [id number] Albumin/Globulin [Mass ratio] 1.6 {ratio} Normal 1.0-2.5 [facility] Comment on above: Performed By: #### C BCAD, CMP, VITD, PHOS #### [facility] [address], [place] [id number] ALP [Catalytic activity/Vol] 79 U/L Normal 35-119 [facility] Comment on above: Performed By: #### C BCAD, CMP, VITD, PHOS #### [facility] [address], [place] [id number] ALT [Catalytic activity/Vol] 12 U/L Normal 6-33 [facility] Comment on above: Result Comment: 09/29 Female reference range changed. Performed By: #### C BCAD, CMP, VITD, PHOS #### [facility] [address], [place] [id number] Anion gap [Moles/Vol] 20 mmol/L Normal 12-20 [facility] Specialist Comment on above: Result Comment: Effe ctive 11/04/2019 reference range changed. Performed By: #### C BCAD, CMP, VITD, PHOS #### [facility] [address], [place] [id number] AST [Catalytic activity/Vol] 16 U/L Normal 9-34 [facility] Comment on above: Performed By: #### C BCAD, CMP, VITD, PHOS #### [facility] [address], [place] [id number] Bilirubin [Mass/Vol] 0.52 mg/dL Normal 0.30-1.20 [facility] Comment on above: Performed By: #### C BCAD, CMP, VITD, PHOS #### [facility] [address] [place], [place] [id number] BUN/CREA 23 Ratio High 6-22 [facility] Comment on above: Performed By: #### C BCAD, CMP, VITD, PHOS #### [facility] [address] [place], [place] [id number] Calcium [Mass/Vol] 9.8 mg/dL Normal 8.6-10.2 [facility] Comment on above: Performed By: #### C BCAD, CMP, VITD, PHOS #### [facility] [address] [place], [place] [id number] Chloride [Moles/Vol] 104 mmol/L Normal 98-107 [facility] Comment on above: Performed By: #### C BCAD, CMP, VITD, PHOS #### [facility] [address], [place] [id number] CO2 [Moles/Vol] 24 mmol/L Normal 20-31 [facility] Comment on above: Performed By: #### C BCAD, CMP, VITD, PHOS #### [facility] [address] [place], [place] [id number] Creatinine [Mass/Vol] 1.1 mg/dL Normal 0.6-1.4 [facility] Comment on above: Performed By: #### C BCAD, CMP, VITD, PHOS #### [facility] [address], [place] [id number] eGFRAA 62 mL/min/1.73m2 Normal >60 [facility] Specialist Comment on above: Performed By: #### C BCAD, CMP, VITD, PHOS #### [facility] [address], [place] [id number] eGFRNAA 51 mL/min/1.73m2 Low >60 [facility] Specialist Comment on above: Performed By: #### C BCAD, CMP, VITD, PHOS #### [facility] [address], [place] [id number] Globulin (S) [Mass/Vol] 2.6 g/dL Normal 1.9-3.7 [facility] Special[facility] Comment on above: Performed By: #### C BCAD, CMP, VITD, PHOS #### [facility] [address] [place], [place] [id number] Glucose [Mass/Vol] 135 mg/dL High 65-99 [facility] Specialist Comment on above: Result Comment: For FASTING Glucose --- ADA reference ranges: Normal 65-99 mg/dl Prediabetes 100-125 Diabetes >/= 126 Performed By: #### C BCAD, CMP, VITD, PHOS #### [facility] [address] [place], [place] [id number] Potassium [Moles/Vol] 4.2 mmol/L Normal 3.5-5.5 [facility] Comment on above: Performed By: #### C BCAD, CMP, VITD, PHOS #### [facility] [address] [place], [place] [id number] Sodium [Moles/Vol] 143 mmol/L Normal 135-146 [facility] Specialist Comment on above: Performed By: #### C BCAD, CMP, VITD, PHOS #### [facility] [address] [place], [place] [id number] Urea nitrogen [Mass/Vol] 24 mg/dL Normal 7-25 [facility] Ant[employer]r Comment on above: Performed By: #### C BCAD, CMP, VITD, PHOS #### [facility] [address] [place], [place] [id number] Hemoglobin A1Con 12-21-2021 EAG 191.51 Normal [facility] Specialist Comment on above: Performed By: #### A 1C #### [facility] [address] [place] [id number] HbA1c (Bld) [Mass fraction] 8.3 % High 4.0-6.0 [facility] Specialist Comment on above: Performed By: #### A 1C #### [facility] [address] [place], [place] [id number] Parathyroid Hormone, Intacto n 12-21-2021 PTH 59.68 pg/mL Normal 16.00-65.0 0 [facility] Specialist Comment on above: Performed By: #### P TH* #### [facility] [address] [place], [place] [id number] Phosphoruson 12-21-2021 Phosphate [Mass/Vol] 3.8 mg/dL Normal 2.2-4.4 [facility] Comment on above: Performed By: #### C BCAD, CMP, VITD, PHOS #### [facility] [address] [place], [place] [id number] Q - IMMUNOFIXATION SERon INTERPRETATION SEE NOTE Normal [facility] Ant[employer]r Comment on above: Order Comment: [facility] Testing performed at: [employer] [facility], [address] [place] [address], [address] [place] [address], [id number], Chief Mate: Kobi Colmenares MD [facility] Collection Date/Time: [facility] Results Received Date/Time: [facility] Reported Date/Time: Result Comment: Nithya t indistinct bands are highlighted by one or more immunofixation reagents. In most cases, this pattern represents reactive inflammatory conditions with immune complexes or oligoclonal immunoglobulins. However, a clonal B-cell or plasma cell disorder cannot be completely excluded. Clinical correlation is suggested Performed By: #### 5 49, [id number], [id number] #### [facility] Default [address] [place] [address] Q - KAPPA/LAMBDA LIGHT CHAIN S,FREE WITH RATIO,SERUMon 12-21-2021 KAPPA LIGHT CHAIN, FREE, SERUM 59.4 mg/L High 3.3-19.4 [place] [employer] Comment on above: Order Comment: [facility] performed at: [employer], [employer] [facility], [address] [facility], [address] [place] [address], [id number], Chief Mate: Kobi Colmenares MD [facility] Date/Time: [facility] Results Received Date/Time: [facility] Reported Date/Time: Performed By: #### 5 49, [id number], [id number] #### [facility] Default [address] [place] [address] KAPPA/LAMBDA LIGHT CHAINS FREE WITH RATIO, SERUM 2.40 High 0.26-1.65 [facility] [employer] Comment on above: Order Comment: [facility] performed at: [employer], [employer] [facility], [address] [facility], [address] [place] [address], [address] [place] [address], Chief Mate: Kobi Colmenares MD [facility] Date/Time: [facility] Results Received Date/Time: [facility] Reported Date/Time: Result Comment: Free kappa/lambda ratio in serum of normal individuals is 0.26-1.65. Excess production of free kappa or lambda chains can alter this ratio. Monoclonal free light chains are found in serum of patients with multiple myeloma, Waldenstrom's macroglobulinemia, mu-heavy chain disease, primary amyloidosis, light chain deposition disease, monoclonal gammopathy of undetermined significance, and lymphoproliferative disorders. Measurement of free light chain concentration in serum is useful for diagnosis, prognosis, monitoring disease activity and following response to therapy of these disorders. Performed By: #### 5 49, [id number], [id number] #### [facility] [address] [place] [address] LAMBDA LIGHT CHAIN, FREE, SERUM 24.7 mg/L Normal 5.7-26.3 [facility] [employer] Comment on above: Order Comment: [facility] performed at: [employer], [employer] [facility], [address] , [address] [place] [address], [phone], Chief Mate: Kobi Colmenares MD [facility] Date/Time: [facility] Results Received Date/Time: [facility] Reported Date/Time: Performed By: #### 5 49, [id number], [id number] #### [facility] [address] [place] [address] Q - PROTEIN ELECTROPHORESIS, WITH TOTAL PROTEIN AND RFX TO IFon 12-21-2021 ABNORMAL PROTEIN BAND 1 SEE NOTE Normal NONE DETECTED [facility] [employer] Comment on above: Order Comment: [facility] performed at: [employer], [employer] [facility], [address] [facility], [address] [place] [address], [address] [place] [address], Chief Mate: Kobi Colmenares MD [facility] Date/Time: [facility] Results Received Date/Time: [facility] Reported Date/Time: Result Comment: See below Performed By: #### 5 49, [id number], [id number] #### [facility] [address] [place] [address] Albumin [Mass/Vol] 3.4 g/dL Low 3.8-4.8 [facility] Comment on above: Order Comment: [facility] performed at: [employer] [facility], [address] [place] [address], [address] [place] [address], [address] [place] [address], Chief Mate: Kobi Colmenares MD [facility] Date/Time: [facility] Results Received Date/Time: [facility] Reported Date/Time: Performed By: #### 5 49, [id number], [id number] #### [facility] [address] [place] [address] ALPHA 1 GLOBULIN 0.4 g/dL High 0.2-0.3 [facility] Specialist Comment on above: Order Comment: [facility] performed at: [employer] [facility], [address] [facility], [address] [place] [address], [address] [place] [address], Chief Mate: Kobi Colmenares MD [facility] Date/Time: [facility] Results Received Date/Time: [facility] Reported Date/Time: [id number] Performed By: #### 5 49, [id number], [id number] #### [facility] [address] [place] [address] ALPHA 2 GLOBULIN 1.0 g/dL High 0.5-0.9 [place] [employer] Comment on above: Order Comment: [facility] performed at: [employer], [employer] [facility], [address] [place] [address], [address] [place] [address], [address] [place] [address], Chief Mate: Kobi Colmenares MD [facility] Date/Time: [facility] Results Received Date/Time: [facility] Reported Date/Time: Performed By: #### 5 49, [id number], [id number] #### [facility] [address] [place] [address] BETA 1 GLOBULIN 0.4 g/dL Normal 0.4-0.6 [facility] Ant[employer] Rep[employer]r Comment on above: Order Comment: [facility] performed at: [employer], [employer] [facility], [address] [place] [address], [address] [place] [address], [address] [place] [address], Chief Mate: Kobi Colmenares MD [facility] Date/Time: [facility] Results Received Date/Time: [facility] Reported Date/Time: Performed By: #### 5 49, [id number], [id number] #### [facility] [address] [place] [address] BETA 2 GLOBULIN 0.4 g/dL Normal 0.2-0.5 [place] [employer] Comment on above: Order Comment: [facility] performed at: [employer], [employer] [facility], [address] [facility], [address] [place] [address], [address] [place] [address], Chief Mate: Kobi Colmenares MD [facility] Date/Time: [facility] Results Received Date/Time: [facility] Reported Date/Time: Performed By: #### 5 49, [id number], [id number] #### [facility] [address] [place] [address] GAMMA GLOBULIN 1.1 g/dL Normal 0.8-1.7 [facility] Ant[employer] Rep[employer]r Comment on above: Order Comment: [facility] performed at: [employer], [employer] [facility], [address] , [address] [place] [address], [phone], Chief Mate: Kobi Colmenares MD [facility] Date/Time: [facility] Results Received Date/Time: [facility] Reported Date/Time: Performed By: #### 5 49, [id number], [id number] #### [facility] [address] [place] [address] Protein [Mass/Vol] 6.7 g/dL Normal 6.1-8.1 [facility] Specialist Comment on above: Order Comment: [facility] performed at: [employer], [employer] [facility], [address], [address] [place] [address], [phone], Chief Mate: Kobi Colmenares MD [facility] Date/Time: [facility] Results Received Date/Time: [facility] Reported Date/Time: Performed By: #### 5 49, [id number], [id number] #### [facility] [address] [place] [address] Performed By: #### C BCAD, CMP, VITD, PHOS #### [facility] [address] [facility] [place] [id number] Vitamin D 25-OHon 12-21-2021 VIT D 25 OH 69 ng/ml Normal >29 [facility] Ant[employer] Rep[employer]r Comment on above: Result Comment: Traci min D Status Deficiency <20 ng/mL Insufficiency 20-29 ng/mL Optimal 30-100 ng/mL Possible Toxicity >=150 ng/mL Performed By: #### C BCAD, CMP, VITD, PHOS #### [facility] [address] [facility] [place] [id number] Vital Signs Date Time Vital Sign Value Performing Clinician Facility 02-22-2024 07:49-0400 Body temperature 97.5 [degF] MD Latrice Bergeron Work Phone: [facility] 02-22-2024 07:49-0400 Diastolic blood pressure 73 mm[Hg] MD Latrice Bergeron Work Phone: [facility] 02-22-2024 07:49-0400 Heart rate 71 /min MD Latrice Bergeron Work Phone: [facility] 02-22-2024 07:49-0400 Respiratory rate 16 /min MD Latrice Bergeron Work Phone: [facility] 02-22-2024 07:49-0400 SaO2% (BldA) [Mass fraction] 95 % MD Latrice Bergeron Work Phone: [facility] 02-22-2024 07:49-0400 Systolic blood pressure 155 mm[Hg] MD Latrice Bergeron Work Phone: [facility] 02-22-2024 06:29-0400 Body weight 173 kg MD Latrice Bergeron Work Phone: [facility] 02-20-2024 17:19-0400 Body height 160.02 cm MD Latrice Bergeron Work Phone: [facility] 02-15-2024 22:35-0400 Inhaled oxygen concentration 21 % MD Latrice Bergeron Work Phone: [facility] 02-15-2024 20:00-0400 Inhaled oxygen flow rate 1 L/min MD Latrice Bergeron Work Phone: [facility] 02-13-2024 20:56-0400 Body temperature 100.2 [degF] MD Latrice Bergeron Work Phone: [facility] 02-13-2024 20:56-0400 Diastolic blood pressure 63 mm[Hg] MD Latrice Bergeron Work Phone: [facility] 02-13-2024 20:56-0400 Heart rate 89 /min MD Latrice Bergeron Work Phone: [facility] 02-13-2024 20:56-0400 Inhaled oxygen flow rate 2 L/min MD Latrice Bergeron Work Phone: [facility] 02-13-2024 20:56-0400 Respiratory rate 18 /min MD Latrice Bergeron Work Phone: [facility] 02-13-2024 20:56-0400 SaO2% (BldA) [Mass fraction] 94 % MD Latrice Bergeron Work Phone: [facility] 02-13-2024 20:56-0400 Systolic blood pressure 136 mm[Hg] MD Latrice Bergeron Work Phone: [facility] 02-13-2024 17:19-0400 Body height 160.02 cm MD Latrice Bergreon Work Phone: [facility] 02-13-2024 17:19-0400 Body weight 145.6 kg MD Latrice Bergeron Work Phone: [facility] 02-13-2024 06:00-0400 Diastolic blood pressure 58 mm[Hg] MD Latrice Bergeron Work Phone: [facility] 02-13-2024 06:00-0400 Heart rate 76 /min MD Latrice Bergeron Work Phone: [facility] 02-13-2024 06:00-0400 SaO2% (BldA) [Mass fraction] 95 % MD Latrice Bergeron Work Phone: [facility] 02-13-2024 06:00-0400 Systolic blood pressure 124 mm[Hg] MD Latrice Bergeron Work Phone: [facility] 02-13-2024 01:04-0400 Body height 160.02 cm MD Latrice Bergeron Work Phone: [facility] 02-13-2024 01:04-0400 Body temperature 98.5 [degF] MD Latrice Bergeron Work Phone: [facility] 02-13-2024 01:04-0400 Body weight 148 kg MD Latrice Bergeron Work Phone: [facility] 01-04-2024 08:20-0500 Body height 160.02 cm MD Latrice Bergeron Work Phone: [facility] 01-04-2024 08:20-0500 Body mass index (BMI) [Ratio] 58.6 kg/m2 MD Latrice Bergeron Work Phone: [facility] 01-04-2024 08:20-0500 Body weight 150.13 kg MD Latrice Bergeron Work Phone: [facility] 01-04-2024 08:13-0500 Body temperature 97.5 [degF] MD Latrice Bergeron Work Phone: [facility] 01-04-2024 08:13-0500 Diastolic blood pressure 73 mm[Hg] MD Latrice Bergeron Work Phone: [facility] 01-04-2024 08:13-0500 Heart rate 70 /min MD Latrice Bergeron Work Phone: [facility] 01-04-2024 08:13-0500 Respiratory rate 24 /min MD Latrice Bergeron Work Phone: [facility] 01-04-2024 08:13-0500 Systolic blood pressure 125 mm[Hg] MD Latrice Bergeron Work Phone: [facility] 12-21-2023 11:58-0500 Body height 160.02 cm MD Latrice Bergeron Work Phone: [facility] 12-21-2023 11:58-0500 Body mass index (BMI) [Ratio] 58.6 kg/m2 MD Latrice Bergeron Work Phone: [facility] 12-21-2023 11:58-0500 Body temperature 97.6 [degF] MD Latrice Bergeron Work Phone: [facility] 12-21-2023 11:58-0500 Body weight 150.13 kg MD Latrice Bergeron Work Phone: [facility] 12-21-2023 11:58-0500 Diastolic blood pressure 84 mm[Hg] MD Latrice Bergeron Work Phone: [facility] 12-21-2023 11:58-0500 Heart rate 61 /min MD Latrice Bergeron Work Phone: [facility] 12-21-2023 11:58-0500 Respiratory rate 16 /min MD Latrice Bergeron Work Phone: [facility] 12-21-2023 11:58-0500 SaO2% (BldA) [Mass fraction] 96 % MD Latrice Bergeron Work Phone: [facility] 12-21-2023 11:58-0500 Systolic blood pressure 130 mm[Hg] MD Latrice Bergeron Work Phone: [facility] 12-21-2023 08:13-0500 Body height 160.02 cm MD Latrice Bergeron Work Phone: [facility] 12-21-2023 08:13-0500 Body mass index (BMI) [Ratio] 58.6 kg/m2 MD Latrice Bergeron Work Phone: [facility] 12-21-2023 08:13-0500 Body weight 150.13 kg MD Latrice Bergeron Work Phone: [facility] 12-21-2023 08:04-0500 Body temperature 97.3 [degF] MD Latrice Bergeron Work Phone: [facility] 12-21-2023 08:04-0500 Diastolic blood pressure 71 mm[Hg] MD Latrice Bergeron Work Phone: [facility] 12-21-2023 08:04-0500 Heart rate 81 /min MD Latrice Bergeron Work Phone: [facility] 12-21-2023 08:04-0500 Respiratory rate 24 /min MD Latrice Bergeron Work Phone: [facility] 12-21-2023 08:04-0500 Systolic blood pressure 132 mm[Hg] MD Latrice Bergeron Work Phone: [facility] 12-14-2023 07:44-0500 Body height 160.02 cm MD Latrice Bergeron Work Phone: [facility] 12-14-2023 07:44-0500 Body temperature 97.2 [degF] MD Latrice Bergeron Work Phone: [facility] 12-14-2023 07:44-0500 Body weight 151 kg MD Latrice Bergeron Work Phone: [facility] 12-14-2023 07:44-0500 Diastolic blood pressure 77 mm[Hg] MD Latrice Bergeron Work Phone: [facility] 12-14-2023 07:44-0500 Heart rate 65 /min MD Latrice Bergeron Work Phone: [facility] 12-14-2023 07:44-0500 Respiratory rate 20 /min MD Latrice Bergeron Work Phone: [facility] 12-14-2023 07:44-0500 SaO2% (BldA) [Mass fraction] 95 % MD Latrice Bergeron Work Phone: [facility] 12-14-2023 07:44-0500 Systolic blood pressure 201 mm[Hg] MD Latrice Bergeron Work Phone: [facility] 11-30-2023 10:28-0500 Body height 160.02 cm MD Lartice Bergeron Work Phone: [facility] 11-30-2023 10:28-0500 Body mass index (BMI) [Ratio] 58.6 kg/m2 MD Latrice Bergeron Work Phone: [facility] 11-30-2023 10:28-0500 Body weight 150.13 kg MD Latrice Bergeron Work Phone: [facility] 11-30-2023 10:13-0500 Body temperature 97.5 [degF] MD Latrice Bergeron Work Phone: [facility] 11-30-2023 10:13-0500 Diastolic blood pressure 73 mm[Hg] MD Latrice Bergeron Work Phone: [facility] 11-30-2023 10:13-0500 Heart rate 68 /min MD Latrice Bergeron Work Phone: [facility] 11-30-2023 10:13-0500 Respiratory rate 18 /min MD Latrice Bergeron Work Phone: [facility] 11-30-2023 10:13-0500 Systolic blood pressure 143 mm[Hg] MD Latrice Bergeron Work Phone: [facility] 11-30-2023 09:15-0500 Body height 160.02 cm Andres Monterroso Other [facility] 11-30-2023 09:15-0500 Body mass index (BMI) [Ratio] 58.65 kg/m2 Andres Monterroso Other [facility] [employer] Other 11-30-2023 09:15-0500 Body temperature 97.8 [degF] Andres Monterroso Other [facility] [employer] Other 11-30-2023 09:15-0500 Body weight 150.19 kg Andres Monterroso Other [facility] [employer] Other 11-30-2023 09:15-0500 Body weight 150.18 kg MD Latrice Bergeron Work Phone: [facility] 11-30-2023 09:15-0500 Diastolic blood pressure 82 mm[Hg] Andres Monterroso Other [facility] 11-30-2023 09:15-0500 SaO2% (BldA) [Mass fraction] 94 % Andres Monterroso Other [facility] [employer] Other 11-30-2023 09:15-0500 Systolic blood pressure 136 mm[Hg] Andres Monterroso Other [facility] 09-11-2023 09:09-0500 Diastolic blood pressure 64 mm[Hg] MD Latrice Bergeron Work Phone: [facility] 09-11-2023 09:09-0500 Heart rate 61 /min MD Latrice Bergeron Work Phone: [facility] 09-11-2023 09:09-0500 Respiratory rate 18 /min MD Latrice Bergeron Work Phone: [facility] 09-11-2023 09:09-0500 SaO2% (BldA) [Mass fraction] 95 % MD Latrice Bergeron Work Phone: [facility] 09-11-2023 09:09-0500 Systolic blood pressure 148 mm[Hg] MD Latrice Bergeron Work Phone: [facility] 09-11-2023 05:15-0500 Body height 160.02 cm MD Latrice Bergeron Work Phone: [facility] 09-11-2023 05:15-0500 Body temperature 97.9 [degF] MD Latrice Bergeron Work Phone: [facility] 09-11-2023 05:15-0500 Body weight 151.04 kg MD Latrice Bergeron Work Phone: [facility] 09-06-2023 17:46-0500 Body temperature 97.8 [degF] MD Latrice Bergeron Work Phone: [facility] 09-06-2023 17:46-0500 Diastolic blood pressure 74 mm[Hg] MD Latrice Bergeron Work Phone: [facility] 09-06-2023 17:46-0500 Heart rate 68 /min MD Latrice Bergeron Work Phone: [facility] 09-06-2023 17:46-0500 Inhaled oxygen flow rate 0 L/min MD Latrice Bergeron Work Phone: [facility] 09-06-2023 17:46-0500 Respiratory rate 18 /min MD Latrice Bergeron Work Phone: [facility] 09-06-2023 17:46-0500 SaO2% (BldA) [Mass fraction] 96 % MD Latrice Bergeron Work Phone: [facility] 09-06-2023 17:46-0500 Systolic blood pressure 126 mm[Hg] MD Latrice Bergeron Work Phone: [facility] 09-06-2023 06:00-0500 Body weight 152 kg MD Latrice Bergeron Work Phone: [facility] 08-31-2023 15:26-0400 Body height 160.02 cm MD Latrice Bergeron Work Phone: [facility] 08-31-2023 05:04-0400 Body height 160.02 cm MD Latrice Bergeron Work Phone: [facility] 08-31-2023 05:04-0400 Body temperature 99.1 [degF] MD Latrice Bergeron Work Phone: [facility] 08-31-2023 05:04-0400 Body weight 149.8 kg MD Latrice Bergeron Work Phone: [facility] 08-31-2023 05:04-0400 Diastolic blood pressure 69 mm[Hg] MD Latrice Bergeron Work Phone: [facility] 08-31-2023 05:04-0400 Heart rate 78 /min MD Latrice Bergeron Work Phone: [facility] 08-31-2023 05:04-0400 Inhaled oxygen flow rate 2 L/min MD Latrice Bergeron Work Phone: [facility] 08-31-2023 05:04-0400 Respiratory rate 18 /min MD Latrice Bergeron Work Phone: [facility] 08-31-2023 05:04-0400 SaO2% (BldA) [Mass fraction] 94 % MD Latrice Bergeron Work Phone: [facility] 08-31-2023 05:04-0400 Systolic blood pressure 146 mm[Hg] MD Latrice Bergeron Work Phone: [facility] 06-26-2023 12:54-0400 Body height 160.02 cm Latrice Bergeron Work Phone: [facility] DO Work Phone: 06-26-2023 12:54-0400 Body mass index (BMI) [Ratio] 57.93 kg/m2 Latrice Bergeron Work Phone: [facility] DO Work Phone: 06-26-2023 12:54-0400 Body surface area Derived from formula 2.38 m2 Latrice Bergeron Work Phone: [facility] DO Work Phone: 06-26-2023 12:54-0400 Body weight 148.33 kg Latrice Bergeron Work Phone: [facility] DO Work Phone: 06-26-2023 12:54-0400 Diastolic blood pressure 62 mm[Hg] Latrice Bergeron Work Phone: [facility] [employer] DO Work Phone: 06-26-2023 12:54-0400 Heart rate 60 /min Latrice Bergeron Work Phone: [facility] DO Work Phone: 06-26-2023 12:54-0400 Systolic blood pressure 126 mm[Hg] Latrice Bergeron Work Phone: [facility] DO Work Phone: 06-10-2023 08:41-0400 PAIN LEVEL 3 {score} Dr. Aleksandr Lozoya [facility] 06-10-2023 02:54-0400 Body temperature 97.5 [degF] Dr. Aleksandr Lozoya [facility] 06-10-2023 02:54-0400 Diastolic blood pressure 74 mm[Hg[facility] 02:54-0400 Heart rate 64 /min Dr. Aleksandr Lozoya [facility] 06-10-2023 02:54-0400 Respiratory rate 18 /min Dr. Aleksandr Lozoya [facility] 06-10-2023 02:54-0400 Systolic blood pressure 155 mm[Hg[facility]-09-[facility] 23:49-0400 PAIN LEVEL 0 {score} Dr. Aleksandr Lozoya [facility] 06-09-2023 16:32-0400 PAIN LEVEL 0 {score} Dr. Aleksandr Lozoya [facility] 06-09-2023 14:36-0400 Body weight 151.[address] Aleksandr Pascual [facility] 06-09-2023 09:50-0400 PAIN LEVEL 0 {score} [facility] 02:37-0400 Body temperature 97.3 [degF] Dr. Aleksandr Lozoya [facility] 06-09-2023 02:37-0400 Diastolic blood pressure 69 mm[Hg[facility] 02:37-0400 Heart rate 60 /[facility]-09-2023 02:37-0400 Respiratory rate 18 /[facility] 02:37-0400 Systolic blood pressure 121 mm[Hg] Dr. Aleksandr Pascual [facility] 06-09-2023 00:30-0400 PAIN LEVEL 0 {score} Dr. Aleksandr Lozoya [facility] 06-08-2023 18:35-0400 Body temperature 97.9 [degF] Dr. Aleksandr Lozoya [facility] 06-08-2023 18:35-0400 Diastolic blood pressure 72 mm[Hg] Dr. Aleksandr Pascual [facility] 06-08-2023 18:35-0400 Heart rate 60 /min Dr. Aleksandr Lozoya [facility] 06-08-2023 18:35-0400 Respiratory rate 16 /[facility]-08-2023 18:35-0400 Systolic blood pressure 148 mm[Hg] Dr. Aleksandr Pascual [facility] 06-08-2023 16:22-0400 PAIN LEVEL 0 {score} [facility]-08-2023 13:07-0400 Body weight 150.[address] [facility]-08-2023 13:04-0400 Body temperature 98.4 [degF] Dr. Aleksandr Lozoya [facility] 06-08-2023 13:04-0400 Diastolic blood pressure 76 mm[Hg[facility]-08-[facility] 13:04-0400 Heart rate 72 /[facility]-08-2023 13:04-0400 Respiratory rate 20 /min Dr. Aleksandr Lozoya [facility] 06-08-2023 13:04-0400 Systolic blood pressure 134 mm[Hg[facility] 06-08-[facility]23 08:45-0400 PAIN LEVEL 3 {score} Dr. Aleksandr Lozoya [facility] 06-08-2023 00:28-0400 PAIN LEVEL 0 {score} [facility]-07-[facility] 23:44-0400 Body temperature 98.2 [degF] Dr. Aleksandr Lozoya [facility] 06-07-2023 23:44-0400 Diastolic blood pressure 74 mm[Hg] Dr. Aleksandr Pascual [facility] 06-07-2023 23:44-0400 Heart rate 65 /min Dr. Aleksandr Pascual [facility] 06-07-2023 23:44-0400 Respiratory rate 18 /min Dr. Aleksandr Pascual [facility] 06-07-2023 23:44-0400 Systolic blood pressure 125 mm[Hg] Dr. Aleksandr Pascual [facility] 06-07-2023 16:02-0400 PAIN LEVEL 0 {score} [facility]-07-2023 13:55-0400 Body weight 150.[address] Aleksandr Lozoya [facility] 06-07-2023 10:53-0400 Body temperature 97.8 [degF] Dr. Aleksandr Lozoya [facility] 06-07-2023 10:53-0400 Diastolic blood pressure 72 mm[Hg] Dr. Aleksandr Pascual [facility] 06-07-2023 10:53-0400 Heart rate 66 /min Dr. Aleksandr Lozoya [facility] 06-07-2023 10:53-0400 Respiratory rate 20 /min Dr. Aleksandr Lozoya [facility] 06-07-2023 10:53-0400 Systolic blood pressure 140 mm[Hg] Dr. Aleksandr Pascual [facility] 06-07-2023 08:30-0400 PAIN LEVEL 3 {score} Dr. Aleksandr Lozoya [facility] 06-07-2023 06:58-0400 Body temperature 98.9 [degF] [facility] 06:58-0400 Diastolic blood pressure 77 mm[Hg] Dr. Aleksandr Pascual [facility] 06-07-2023 06:58-0400 Heart rate 60 /[facility] 06:58-0400 Respiratory rate 20 /min Dr. Aleksandr Pascual [facility] 06-07-2023 06:58-0400 Systolic blood pressure 162 mm[Hg] Dr. Aleksandr Pascual [facility] 06-06-2023 23:33-0400 PAIN LEVEL 0 {score} [facility]-06-[facility]23 16:32-0400 Body temperature 97.7 [degF] [facility] 16:32-0400 Diastolic blood pressure 74 mm[Hg] Dr. Aleksadnr Pascual [facility] 06-06-2023 16:32-0400 Heart rate 64 /min Dr. Aleksandr Lozoya [facility] 06-06-2023 16:32-0400 Respiratory rate 18 /min Dr. Aleksandr Lozoya [facility] 06-06-2023 16:32-0400 Systolic blood pressure 157 mm[Hg] Dr. Aleksandr Pascual [facility] 06-06-2023 15:55-0400 PAIN LEVEL 0 {score} Dr. Aleksandr Lozoya [facility] 06-06-2023 13:19-0400 Body temperature 97.8 [degF] Dr. Aleksandr Lozoya [facility] 06-06-2023 13:19-0400 Body weight 151.[address] Aleksandr Pascual [facility] 06-06-2023 13:19-0400 Diastolic blood pressure 78 mm[Hg] Dr. Aleksandr Pascual [facility] 06-06-2023 13:19-0400 Heart rate 78 /min Dr. Aleksandr Pascual [facility] 06-06-2023 13:19-0400 Respiratory rate 22 /min Dr. Aleksandr Pascual [facility] 06-06-2023 13:19-0400 Systolic blood pressure 144 mm[Hg] Dr. Aleksandr Pascual [facility] 06-06-2023 08:24-0400 PAIN LEVEL 3 {score} Dr. Aleksandr Lozoya [facility] 06-05-2023 23:35-0400 PAIN LEVEL 0 {score} Dr. Aleksandr Lozoya [facility] 06-05-2023 17:52-0400 Body weight 151.[address] [facility] 06-05-2023 17:51-0400 Body temperature 95.6 [degF] Dr. Aleksandr Lozoya [facility] 06-05-2023 17:51-0400 Diastolic blood pressure 66 mm[Hg] Dr. Aleksandr Pascual [facility] 06-05-2023 17:51-0400 Heart rate 67 /min Dr. Aleksandr Lozoya [facility] 06-05-2023 17:51-0400 Respiratory rate 18 /min Dr. Aleksandr Lozoya [facility] 06-05-2023 17:51-0400 Systolic blood pressure 152 mm[Hg] Dr. Aleksandr Pascual [facility] 06-05-2023 16:17-0400 PAIN LEVEL 0 {score} Dr. Aleksandr Lozoya [facility] 06-05-2023 14:59-0400 Body weight 151.[address] [facility] 06-05-2023 10:09-0400 Body temperature 97.2 [degF] Dr. Aleksandr Lozoya [facility] 06-05-2023 10:09-0400 Diastolic blood pressure 80 mm[Hg] Dr. Aleksandr Pascual [facility] 06-05-2023 10:09-0400 Heart rate 67 /[facility] 06-05-2023 10:09-0400 Respiratory rate 16 /min Dr. Aleksandr Lozoya [facility] 06-05-2023 10:09-0400 Systolic blood pressure 134 mm[Hg] Dr. Aleksandr Pascual [facility] 06-05-2023 08:43-0400 PAIN LEVEL 3 {score} Dr. Aleksandr Lozoya [facility] 06-05-2023 04:26-0400 Body temperature 97.8 [degF] Dr. Aleksandr Juarezting [facility] 06-05-2023 04:26-0400 Diastolic blood pressure 66 mm[Hg] Dr. Aleksandr Pascual [facility] 06-05-2023 04:26-0400 Heart rate 61 /[facility] 06-05-2023 04:26-0400 Respiratory rate 17 /min Dr. Aleksandr Pascual [facility] 06-05-2023 04:26-0400 Systolic blood pressure 112 mm[Hg] Dr. Aleksandr Pascual [facility] 06-05-2023 00:39-0400 PAIN LEVEL 0 {score} Dr. Aleksandr Lozoya [facility] 06-05-2023 00:38-0400 PAIN LEVEL 0 {score} [facility] 06-04-2023 22:51-0400 PAIN LEVEL 6 {score} [facility] 06-04-2023 22:16-0400 Oxygen saturation in Blood 97 % Dr. Aleksandr Pascual [facility] 06-04-2023 17:00-0400 Body temperature 97.3 [degF] [facility] 17:00-0400 Diastolic blood pressure 64 mm[Hg[facility]-04-[facility] 17:00-0400 Heart rate 62 /min Dr. Aleksandr Lozoya [facility] 06-04-2023 17:00-0400 Respiratory rate 16 /min Dr. Aleksandr Lozoya [facility] 06-04-2023 17:00-0400 Systolic blood pressure 122 mm[Hg] [facility] 06-04-2023 11:14-0400 Body temperature 98.4 [degF] Dr. Aleksandr Lozoya [facility] 06-04-2023 11:14-0400 Diastolic blood pressure 82 mm[Hg] Dr. Aleksandr Pascual [facility] 06-04-2023 11:14-0400 Heart rate 74 /[facility] 06-04-2023 11:14-0400 Respiratory rate 20 /min Dr. Aleksandr Juarezting [facility] 06-04-2023 11:14-0400 Systolic blood pressure 146 mm[Hg] Dr. Aleksandr Pascual [facility] 06-04-2023 09:48-0400 PAIN LEVEL 0 {score} Dr. Aleksandr Lozoya [facility] 06-04-2023 05:59-0400 Body temperature 97.9 [degF] Dr. Aleksandr Lozoya [facility] 06-04-2023 05:59-0400 Diastolic blood pressure 80 mm[Hg] Dr. Aleksandr Pascual [facility] 06-04-2023 05:59-0400 Heart rate 68 /min Dr. Aleksandr Lozoya [facility] 06-04-2023 05:59-0400 Respiratory rate 18 /min Dr. Aleksandr Lozoya [facility] 06-04-2023 05:59-0400 Systolic blood pressure 150 mm[Hg] Dr. Aleksandr Pascual [facility] 06-03-2023 15:39-0400 Body temperature 98.5 [degF] Dr. Aleksandr Lozoya [facility] 06-03-2023 15:39-0400 Diastolic blood pressure 75 mm[Hg] [facility] 06-03-2023 15:39-0400 Heart rate 61 /min Dr. Aleksandr Lozoya [facility] 06-03-2023 15:39-0400 Respiratory rate 18 /min Dr. Aleksandr Lozoya [facility] 06-03-2023 15:39-0400 Systolic blood pressure 120 mm[Hg] Dr. Aleksandr Pascual [facility] 06-03-2023 11:16-0400 Body temperature 97.3 [degF] Dr. Aleksandr Lozoya [facility] 06-03-2023 11:16-0400 Diastolic blood pressure 87 mm[Hg] [facility] 06-03-2023 11:16-0400 Heart rate 65 /min Dr. Aleksandr Lozoya [facility] 06-03-2023 11:16-0400 Respiratory rate 18 /min Dr. Aleksandr Lozoya [facility] 06-03-2023 11:16-0400 Systolic blood pressure 153 mm[Hg] Dr. Aleksandr Pascual [facility] 06-03-2023 09:35-0400 PAIN LEVEL 0 {score} Dr. Aleksandr Lozoya [facility] 06-02-2023 22:11-0400 Body weight 152.[address] Aleksandr Juarezting [facility] 06-02-2023 16:41-0400 PAIN LEVEL 0 {score} Dr. Aleksandr Lozoya [facility] 06-02-2023 09:15-0400 PAIN LEVEL 3 {score} Dr. Aleksandr Lozoya [facility] 06-02-2023 01:33-0400 Body temperature 98.1 [degF] Dr. Aleksandr Lozoya [facility] 06-02-2023 01:33-0400 Diastolic blood pressure 70 mm[Hg] Dr. Aleksandr Pascual [facility] 06-02-2023 01:33-0400 Heart rate 60 /min Dr. Aleksandr Lozoya [facility] 06-02-2023 01:33-0400 Respiratory rate 20 /[facility] 06-02-2023 01:33-0400 Systolic blood pressure 145 mm[Hg] Dr. Aleksandr Pascual [facility] 06-02-2023 00:03-0400 PAIN LEVEL 0 {score} [facility] 06-01-2023 22:59-0400 Body temperature 98.5 [degF] Dr. Aleksandr Lozoya [facility] 06-01-2023 22:59-0400 Diastolic blood pressure 67 mm[Hg] Dr. Aleksandr Pascual [facility] 06-01-2023 22:59-0400 Heart rate 79 /min Dr. Aleksandr Pascual [facility] 06-01-2023 22:59-0400 Respiratory rate 16 /min MD Latrice Bergeron Work Phone: [facility] 06-01-2023 22:59-0400 Systolic blood pressure 142 mm[Hg] Dr. Aleksandr Pascual [facility] 06-01-2023 22:21-0400 PAIN LEVEL 1 {score} [facility] 06-01-2023 14:46-0400 PAIN LEVEL 4 {score} Dr. Aleksandr Pascual [facility] 06-01-2023 14:40-0400 Body temperature 97.7 [degF] MD Latrice Bergeron Work Phone: [facility] 06-01-2023 14:40-0400 Body weight 152.[address] Aleksandr Pascual [facility] 06-01-2023 14:40-0400 Diastolic blood pressure 66 mm[Hg] Dr. Aleksandr Pascual [facility] 06-01-2023 14:40-0400 Heart rate 67 /min Dr. Aleksandr Pascual [facility] 06-01-2023 14:40-0400 Oxygen saturation in Blood 92 % Dr. Aleksandr Pascual [facility] 06-01-2023 14:40-0400 Respiratory rate 18 /min Dr. Aleksandr Lozoya [facility] 06-01-2023 14:40-0400 Systolic blood pressure 155 mm[Hg] [facility] 06-01-2023 12:00-0400 Diastolic blood pressure 73 mm[Hg] MD Latrice Bergeron Work Phone: [facility] 06-01-2023 12:00-0400 Heart rate 68 /min MD Latrice Bergeron Work Phone: [facility] 06-01-2023 12:00-0400 SaO2% (BldA) [Mass fraction] 96 % MD Latrice Bergeron Work Phone: [facility] 06-01-2023 12:00-0400 Systolic blood pressure 134 mm[Hg] MD Latrice Bergeron Work Phone: [facility] 06-01-2023 06:00-0400 Body weight 154.1 kg MD Latrice Bergeron Work Phone: [facility] 05-31-2023 16:30-0400 Inhaled oxygen flow rate 2 L/min MD Latrice Bergeron Work Phone: [facility] 05-30-2023 14:00-0400 Body height 160.[address] [facility]r [facility]ual [facility] 05-30-2023 14:00-0400 Body temperature 97.9 [degF] Dr. Aleksandr Lozoya [facility] 05-29-2023 15:34-0400 Body height 160.02 cm MD Latrice Bergeron Work Phone: [facility] 05-28-2023 14:00-0400 Diastolic blood pressure 81 mm[Hg] MD Latrice Bergeron Work Phone: [facility] 05-28-2023 14:00-0400 Heart rate 86 /min MD Latrice Bergeron Work Phone: [facility] 05-28-2023 14:00-0400 Respiratory rate 20 /min MD Latrice Bergeron Work Phone: [facility] 05-28-2023 14:00-0400 SaO2% (BldA) [Mass fraction] 95 % MD Latrice Bergeron Work Phone: [facility] 05-28-2023 14:00-0400 Systolic blood pressure 184 mm[Hg] MD Latrice Bergeron Work Phone: [facility] 05-28-2023 00:51-0400 Body temperature 102.3 [degF] MD Latrice Bergeron Work Phone: [facility] 05-27-2023 22:23-0400 Body height 160.02 cm MD Latrice Bergeron Work Phone: [facility] 05-27-2023 22:23-0400 Body weight 148.77 kg MD Latrice Bergeron Work Phone: [facility] 05-10-2023 06:07-0400 Diastolic blood pressure 65 mm[Hg] MD Latrice Bergeron Work Phone: [facility] 05-10-2023 06:07-0400 Heart rate 59 /min MD Latrice Bergeron Work Phone: [facility] 05-10-2023 06:07-0400 Respiratory rate 19 /min MD Latrice Bergeron Work Phone: [facility] 05-10-2023 06:07-0400 SaO2% (BldA) [Mass fraction] 92 % MD Latrice Bergeron Work Phone: [facility] 05-10-2023 06:07-0400 Systolic blood pressure 139 mm[Hg] MD Latrice Bergeron Work Phone: [facility] 05-10-2023 04:59-0400 Inhaled oxygen flow rate 2 L/min MD Latrice Bergeron Work Phone: [facility] 05-10-2023 03:46-0400 Body height 160.02 cm MD Latrice Bergeron Work Phone: [facility] 07-12-2023 03:46-0400 Body temperature 97.2 [degF] MD Latrice Bergeron Work Phone: [facility] 05-10-2023 03:46-0400 Body weight 149.7 kg MD Latrice Bergeron Work Phone: [facility] 05-09-2023 11:32-0400 Diastolic blood pressure 54 mm[Hg] MD Latrice Bergeron Work Phone: [facility] 05-09-2023 11:32-0400 Heart rate 63 /min MD Latrice Bergeron Work Phone: [facility] 05-09-2023 11:32-0400 Respiratory rate 16 /min MD Latrice Bergeron Work Phone: [facility] 05-09-2023 11:32-0400 SaO2% (BldA) [Mass fraction] 95 % MD Latrice Bergeron Work Phone: [facility] 05-09-2023 11:32-0400 Systolic blood pressure 130 mm[Hg] MD Latrice Bergeron Work Phone: [facility] 05-09-2023 07:42-0400 Body temperature 97.9 [degF] MD Latrice Bergeron Work Phone: [facility] 05-09-2023 06:00-0400 Body weight 148.7 kg MD Latrice Bergeron Work Phone: [facility] 05-05-2023 12:36-0400 Body height 160.02 cm MD Latrice Bergeron Work Phone: [facility] 05-04-2023 21:52-0400 Diastolic blood pressure 59 mm[Hg] MD Latrice Bergeron Work Phone: [facility] 05-04-2023 21:52-0400 Heart rate 51 /min MD Latrice Bergeron Work Phone: [facility] 05-04-2023 21:52-0400 Respiratory rate 18 /min MD Latrice Bergeron Work Phone: [facility] 05-04-2023 21:52-0400 SaO2% (BldA) [Mass fraction] 90 % MD Latrice Bergeron Work Phone: [facility] 05-04-2023 21:52-0400 Systolic blood pressure 136 mm[Hg] MD Latrice Bergeron Work Phone: [facility] 05-04-2023 16:38-0400 Body height 160.02 cm MD Latrice Bergeron Work Phone: [facility] 05-04-2023 16:38-0400 Body temperature 98.1 [degF] MD Latrice Bergeron Work Phone: [facility] 05-04-2023 16:38-0400 Body weight 154.22 kg MD Latrice Bergeron Work Phone: [facility] 04-11-2023 07:47-0400 Body temperature 98.2 [degF] MD Latrice Bergeron Work Phone: [facility] 04-11-2023 07:47-0400 Diastolic blood pressure 62 mm[Hg] MD Latrice Bergeron Work Phone: [facility] 04-11-2023 07:47-0400 Heart rate 62 /min MD Latrice Bergeron Work Phone: [facility] 04-11-2023 07:47-0400 Inhaled oxygen flow rate 2 L/min MD Latrice Bergeron Work Phone: [facility] 04-11-2023 07:47-0400 Respiratory rate 18 /min MD Latrice Bergeron Work Phone: [facility] 04-11-2023 07:47-0400 SaO2% (BldA) [Mass fraction] 99 % MD Latrice Bergeron Work Phone: [facility] 04-11-2023 07:47-0400 Systolic blood pressure 120 mm[Hg] MD Latrice Bergeron Work Phone: [facility] 04-11-2023 03:47-0400 Body height 160.02 cm MD Latrice Bergeron Work Phone: [facility] 04-11-2023 03:47-0400 Body weight 151 kg MD Latrice Bergeron Work Phone: [facility] 04-10-2023 14:45-0400 Body height 160.02 cm Latrice Bartholomew Chris Work Phone: [facility] [address] DO Work Phone: 04-10-2023 14:45-0400 Body mass index (BMI) [Ratio] Medical Reason Not Done Latrice [place] Chris Work Phone: [facility] [address] DO Work Phone: 04-10-2023 14:45-0400 Diastolic blood pressure 58 mm[Hg] Latrice Bergeron Work Phone: [facility] DO Work Phone: 04-10-2023 14:45-0400 Heart rate 60 /min Latrice Bergeron Work Phone: [facility] DO Work Phone: 04-10-2023 14:45-0400 Systolic blood pressure 122 mm[Hg] Latrice [place] Chris Work Phone: [facility] DO Work Phone: 03-15-2023 12:00-0400 Body height 159.8 cm Joceline Ortega MD Work Phone: [facility] 03-15-2023 12:00-0400 Body mass index (BMI) [Ratio] 57.02 kg/m2 Joceline Ortega MD Work Phone: [facility] 03-15-2023 12:00-0400 Body weight 145.6 kg Joceline Ortega MD Work Phone: [facility] 03-06-2023 10:36-0400 Diastolic blood pressure 62 mm[Hg] Latrice Bergeron Work Phone: [facility] DO Work Phone: 03-06-2023 10:36-0400 Systolic blood pressure 128 mm[Hg] Latrice Bergeron Work Phone: [facility] DO Work Phone: 03-06-2023 10:35-0400 Body height 160.02 cm Latrice Bartholomew Chris Work Phone: [facility] DO Work Phone: 03-06-2023 10:35-0400 Body mass index (BMI) [Ratio] Patient Reason Not Done Latrice Bartholomew Chris Work Phone: [facility] DO Work Phone: 03-06-2023 10:35-0400 Diastolic blood pressure 60 mm[Hg] Latrice Bergeron Work Phone: [facility] DO Work Phone: 03-06-2023 10:35-0400 Heart rate 66 /min Latrice Bergeron Work Phone: [facility] DO Work Phone: 03-06-2023 10:35-0400 Systolic blood pressure 130 mm[Hg] Latrice Bergeron Work Phone: [facility] DO Work Phone: 05-19-2022 08:24-0400 Diastolic blood pressure 61 mm[Hg] MD Latrice Bergeron Work Phone: [facility] 05-19-2022 08:24-0400 Heart rate 68 /min MD Latrice Bergeron Work Phone: [facility] 05-19-2022 08:24-0400 Respiratory rate 16 /min MD Latrice Bergeron Work Phone: [facility] 05-19-2022 08:24-0400 SaO2% (BldA) [Mass fraction] 96 % MD Latrice Bergeron Work Phone: [facility] 05-19-2022 08:24-0400 Systolic blood pressure 127 mm[Hg] MD Latrice Bergeron Work Phone: [facility] 05-19-2022 03:14-0400 Body height 160.02 cm MD Latrice Bergeron Work Phone: [facility] 05-19-2022 03:14-0400 Body temperature 97.5 [degF] MD Latrice Bergeron Work Phone: [facility] 05-19-2022 03:14-0400 Body weight 146.51 kg MD Latrice Bergeron Work Phone: [facility] Encounters Encounter Date Encounter Type Care Provider Facility Start: 02-22-2024 Non-patient / Non-visit MD Anoop Bergeron Work Phone: [facility] Physician [facility] Nephrology Work Phone: Start: 02-22-2024 Non-patient / Non-visit MD Anoop Bergeron Work Phone: [facility] Physician [facility] Infectious Disease Work Phone: Start: 02-20-2024 Non-patient / Non-visit MD Anoop Bergeron Work Phone: [facility] Physician [facility] Med OutPt Work Phone: Start: 02-15-2024 Non-patient / Non-visit MD Anoop Bergeron Work Phone: [facility] Physician [facility] Work Phone: Start: 02-13-2024 End: 02-22-2024 [facility] Start: 02-13-2024 Non-patient / Non-visit MD Anoop Bergeron Work Phone: [facility] Physician [facility] Med OutPt Work Phone: Start: 02-13-2024 End: 02-22-2024 Evaluation and management of inpatient MD Latrice Bergeron Work Phone: [facility] [place] Med Surg Work Phone: Start: 02-13-2024 End: 02-13-2024 Emergency department patient visit Andres Vences Reyna Facility:[facility] Start: 02-13-2024 End: 02-13-2024 Emergency department patient visit MD Latrice Bergeron Work Phone: [facility]Emergency [facility] Work Phone: Start: 01-18-2024 End: 01-18-2024 ambulatory LATRICE BERGERON Not Available Start: 01-04-2024 End: 01-04-2024 ambulatory Latrice Bergeron Facility:[facility] Start: 01-04-2024 End: 01-04-2024 Discharged Recurring MD Latrice Bergeron Work Phone: [facility] Work Phone: Start: 12-21-2023 End: 12-21-2023 ambulatory LATRICE BERGERON Not Available Start: 12-21-2023 End: 12-21-2023 Patient encounter procedure MD Latrice Bergeron Work Phone: [facility] Work Phone: Start: 12-21-2023 End: 12-21-2023 ambulatory MD Latrice Bergeron Work Phone: [facility] Work Phone: Start: 12-21-2023 Registered Recurring MD Latrice Bergeron Work Phone: [facility] Work Phone: Start: 12-14-2023 End: 12-14-2023 Emergency department patient visit Latrice Bergeron Facility:[facility] Start: 12-14-2023 End: 12-14-2023 Emergency department patient visit MD Latrice Bergeron Work Phone: [facility]Emer[facility] Work Phone: Start: 12-13-2023 End: 12-13-2023 ambulatory Andres Monterroso Facility:[facility] Start: 12-13-2023 End: 12-13-2023 ambulatory MD Latrice Bergeron Work Phone: [facility] Work Phone: Start: 12-13-2023 End: 12-13-2023 Patient encounter procedure MD Latrice Bergeron Work Phone: [facility]-Ultrasound Main [place] Work Phone: Start: 11-30-2023 End: 11-30-2023 ambulatory Andres Monterroso Other [facility] [employer] Other Start: 11-30-2023 Office outpatient ne w 60 minutes Andres Monterroso [facility] Start: 11-30-2023 Registered Recurring MD Latrice Bergeron Work Phone: [facility] Work Phone: Start: 11-30-2023 End: 11-30-2023 Patient encounter procedure MD Latrice Bergeron Work Phone: [facility]- Start: 11-27-2023 End: 11-27-2023 ambulatory LASHONDA LOVE Not Available Start: 09-18-2023 End: 09-18-2023 ambulatory NANDO JIMENEZ Not Available Start: 09-13-2023 End: 09-13-2023 ambulatory LATRICE BERGERON Not Available Start: 09-11-2023 End: 09-11-2023 Emergency department patient visit Hamzah Burnham Facility:[facility] Start: 09-11-2023 End: 09-11-2023 Emergency department patient visit MD Latrice Bergeron Work Phone: [facility]Emergency Room Work Phone: Start: 08-31-2023 End: 09-06-2023 Evaluation and management of inpatient Medardo Darling Facility:[facility] Start: 08-31-2023 End: 09-06-2023 Evaluation and management of inpatient MD Latrice Bergeron Work Phone: [facility] [place] Med Surg Work Phone: Start: 06-26-2023 Office outpatient vi sit 25 minutes Latrice Bergeron Work Phone: [facility] DO Work Phone: Start: 06-26-[address] Joceline Landon ty: Start: 06-06-2023 End: 06-06-2023 ambulatory Latrice Bergeron Facility:[facility] Start: 06-06-2023 End: 06-06-2023 ambulatory MD Latrice Bergeron Work Phone: [facility] Work Phone: Start: 06-06-2023 End: 06-06-2023 Patient encounter procedure MD Latrice Bergeron Work Phone: [facility] Start: 05-30-[address] Latrice Bergeron F acility:[id number] Start: 05-29-[address] Latrice Bergeron F acility:[id number] Start: 05-28-2023 End: 06-01-2023 Evaluation and management of inpatient Alaa Alamarisaad Facility:[facility] Start: 05-28-[address] Latrice Bergeron F acility:[id number] Start: 05-28-2023 End: 06-01-2023 Evaluation and management of inpatient MD Latrice Bergeron Work Phone: [facility] [place] Med Surg Work Phone: Start: 05-12-2023 End: 05-12-2023 ambulatory Esssarah Elashi Facility:[facility] Start: 05-12-2023 End: 05-12-2023 ambulatory MD Latrice Bergeron Work Phone: [facility] [facility] Work Phone: Start: 05-12-2023 End: 05-12-2023 Patient encounter procedure MD Latrice Bergeron Work Phone: [facility] Main [place] Work Phone: Start: 05-10-2023 End: 05-10-2023 Emergency department patient visit Hamzah Burnham Facility:[facility] Start: 05-10-2023 End: 05-10-2023 Emergency department patient visit MD Latrice Bergeron Work Phone: [facility]-Emergency Room Work Phone: Start: 05-07-[address] Latrice Bergeron F acility:[id number] Start: 05-06-[address] Latrice Bergeron F acility:[id number] Start: 05-05-[address] Latrice Bergeron F acility:[id number] Start: 05-04-2023 End: 05-09-2023 Evaluation and management of inpatient Medardo Darling Facility:[facility] Start: 05-04-2023 End: 05-09-2023 Evaluation and management of inpatient MD Latrice Bergeron Work Phone: [facility] [place] [facility] Work Phone: Start: 04-11-2023 End: 04-11-2023 Emergency department patient visit Latrice Bergeron Facility:[facility] Start: 04-11-2023 End: 04-11-2023 Emergency department patient visit MD Latrice Bergeron Work Phone: [facility] Work Phone: Start: 04-10-2023 Office outpatient vi sit 25 minutes Latrice Bergeron Work Phone: [facility] Heart-Danielle 250 DO Work Phone: Start: 04-10-[address] 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 ([facility]); Hyperlipidemia, unspecified; Essential (primary) hypertension; Type 2 diabetes mellitus without complications ([facility]); Morbid (severe) obesity due to excess calories ([facility]); Body mass index (BMI) 50.0-59.9, adult ([facility]); Presence of coronary angioplasty implant and graft Start: 03-08-2023 End: 03-08-2023 ambulatory Joceline Ortega Facility:[facility] Start: 03-08-2023 End: 03-08-2023 ambulatory MD Latrice Bergeron Work Phone: [facility] Work Phone: Start: 03-08-2023 End: 03-08-2023 Patient encounter procedure MD Latrice Bergeron Work Phone: [facility] Main [place] Work Phone: Start: 03-06-2023 Office consultation new/estab patient 60 min Latrice Bergeron Work Phone: [facility] Heart-Nuha 101 DO Work Phone: Start: 03-06-2023 Patient encounter procedure Latrice Bergeron Work Phone: [facility] 250 DO Work Phone: Start: 03-06-[address] Latrice Monaco acility: Start: 05-19-2022 End: 05-19-2022 Emergency department patient visit MD Latrice Bergeron Work Phone: [facility]-Emergency Room Patient encounter status Latrice Bergeron Work Phone: [facility] Heart-[facility] 250 DO Work Phone: End: 06-26-2023 Patient encounter status Latrice Bergeron Work Phone: [facility] 250 DO Work Phone: Procedures Date Procedure Procedure Detail Performing Clinician Start: 02-21-2024 Stool culture Andres nova Comment on above: Performed By: #### G I PROFILE, STL ####[facility] ,#### CUSTOOL ####[facility] [id number] [place] [address] [facility] Start: 02-19-2024 Duplex scan of lower limb veins MD Latrice Bergeron Work Phone: Start: 02-17-2024 CT of abdomen and pe lvis without contrast MD Latrice Bergeron Work Phone: Start: 02-14-2024 Urine culture MD Latrice Bergeron Work Phone: Start: 02-13-2024 Plain chest X-ray MD Sanjuanita Bergeron Work Phone: Start: 02-13-2024 Blood culture for ba cteria, including anaerobic screen MD Latrice Bergeron Work Phone: Start: 02-13-2024 SARS-CoV-2, Influenz a & RSV (PCR) MD Latrice Bergeron Work Phone: Start: 02-13-2024 CT of abdomen and pe lvis without contrast MD Latrice Bergeron Work Phone: Start: 12-14-2023 Plain X-ray of left shoulder MD Latrice Bergeron Work Phone: Start: 12-13-2023 Duplex scan of lower limb veins MD Latrice Bergeron Work Phone: Start: 12-13-2023 Pulse volume recorde r pneumoplethysmography MD Latrice Bergeron Work Phone: Start: 09-11-2023 CT of lumbar spine w ithout contrast MD Latrice Bergeron Work Phone: Start: 09-11-2023 CT of head without contrast MD Latrice Bergeron Work Phone: Start: 08-31-2023 Blood culture for ba cteria, including anaerobic screen MD Latrice Bergeron Work Phone: Start: 08-31-2023 SARS-CoV-2, Influenz a & RSV (PCR) MD Latrice Bergeron Work Phone: Start: 08-31-2023 Plain chest X-ray MD Sanjuanita Bergeron Work Phone: Start: 08-31-2023 CT of abdomen and pe lvis without contrast MD Latrice Bergeron Work Phone: Start: 05-30-2023 Ultrasonography of b ilateral kidneys MD Latrice Bergeron Work Phone: Start: 05-29-2023 Blood culture for ba cteria, including anaerobic screen MD Latrice Bergeron Work Phone: Start: 05-29-2023 Stool culture for bacteria MD Latrice Bergeron Work Phone: Start: 05-29-2023 Stool culture Andres nova Comment on above: Performed By: #### L ACTO SWBC, CDT, CUSTOOL ####[facility] [id number] [place] [id number] [facility] Start: 05-28-2023 Urine culture MD Latrice Bergeron Work Phone: Start: 05-27-2023 Plain X-ray of left shoulder MD Latrice Bergeron Work Phone: Start: 05-10-2023 Urine culture MD Latrice Bergeron Work Phone: Start: 05-10-2023 Plain chest X-ray MD Sanjuanita Bergeron Work Phone: Start: 05-04-2023 Plain chest X-ray MD Sanjuanita Bergeron Work Phone: Start: 04-11-2023 Urine culture MD Latrice Bergeron Work Phone: Start: 04-11-2023 CT cervical spine wi thout contrast MD Latrice Bergeron Work Phone: Start: 04-11-2023 CT of head without contrast MD Latrice Bergeron Work Phone: Start: 04-11-2023 CT of lumbar spine w ithout contrast MD Latrice Bergeron Work Phone: Start: 03-16-2023 Glucose [Mass/volume ] in Serum or Plasma Joceline Ortega MD Work Phone: Start: 03-16-2023 Basic metabolic pane l calcium total [employer] Work Phone: Start: 03-15-2023 Glucose [Mass/volume ] in Serum or Plasma Joceline Ortega MD Work Phone: Start: 03-15-2023 End: 03-15-2023 Activated clotting time (ACT) of Blood by Coagulation assay Joceline Ortega MD Work Phone: Start: 03-15-2023 ADULT CATH Joceline valladares MD Work Phone: Start: 03-15-2023 ELECTROCARDIOGRAM 12 LEAD Joceline Ortega MD Work Phone: Start: 03-30-2017 Total colonoscopy Kar tricia Bergeron Work Phone: Appendectomy Latrice Bergeron Work Phone: Cataract surgery Latrice Stapleton ll Work Phone: Cholecystectomy [facility]rice [facility]w [facility] Work Phone: Hysterectomy Latrice Bergeron Work Phone: Nasal sinus procedure Latrice Bergeron Work Phone: Operative procedure on knee Latrice Bergeron Work Phone: Percutaneous translu jeremiah coronary angioplasty Latrice Bergeron Work Phone: Procedure on back Latrice garland Work Phone: Procedure on neck Latrice garland Work Phone: Surgical procedure o n eye proper Latrice Bergeron Work Phone: Plan of Treatment Date Care Activity Detail Author Start: 04-25-2024 FUV, Provider: Joceline Ortega, Status: Pen, Time: 9:00 AM FUV, Provider: Joceline Ortega, Status: Pen, Time: 9:00 AM [facility] 250 DO Work Phone: Start: 04-25-2024 End: 04-25-2024 Patient encounter procedure 04/25/2024 9:00 AM EDT Office Visit [facility] [address] [facility] [address] [place] [address] Joceline Ortega MD [address] [facility] [address] [place] [address] [facility] Start: 02-23-2024 [facility] Start: 02-22-2024 End: 02-22-2024 [facility] Start: 02-21-2024 Stool culture for bacteria Stool Culture [facility] Start: 02-21-2024 Referral to premium representative [facility] Start: 02-21-2024 End: 02-21-2024 [facility] Start: 02-20-2024 [facility] Start: 02-19-2024 [facility] Start: 02-18-2024 [facility] Start: 02-17-2024 [facility] Start: 02-16-2024 [facility] Start: 02-15-2024 Referral to infectious diseases physician [facility] Start: 02-15-2024 Referral to bundle clerk [facility] Start: 02-15-2024 [facility] Start: 02-14-2024 Administration of prophylactic treatment [facility] Start: 02-14-2024 [facility] Start: 02-13-2024 Hospital admission [facility] Start: 02-13-2024 [facility] Start: 02-13-2024 Bacteria identified in Stool by Culture [facility] Start: 02-13-2024 End: 02-13-2024 [facility] Start: 02-13-2024 CT Abdomen and Pelvis WO contrast [facility] Start: 02-13-2024 CT of abdomen and pelvis without contrast CT abdomen pelvis wo con [facility] Start: 10-02-2023 FUV, Provider: Joceline Ortega, Status: Pen, Time: 9:45 AM FUV, Provider: Joceline Ortega, Status: Pen, Time: 9:45 AM [facility]le 250 DO Work Phone: Start: 09-06-2023 [facility] Start: 09-04-2023 [facility] Start: 09-03-2023 [facility] Start: 09-02-2023 [facility] Start: 09-01-2023 [facility] Start: 08-31-2023 Bacteria identified in Blood by Culture Blood Culture [facility] Start: 08-31-2023 End: 08-31-2023 [facility] Start: 08-31-2023 Hospital admission [facility] Start: 08-31-2023 Plain chest X-ray XR chest 1V portable [facility] Start: 08-31-2023 XR Chest Single view [facility] Start: 08-31-2023 CT Abdomen and Pelvis WO contrast [facility] Start: 08-31-2023 CT of abdomen and pelvis without contrast CT abdomen pelvis wo con [facility] Start: 06-30-2023 Influenza vaccination Influenza Vaccine (#1) [facility] Start: 06-01-2023 [facility] Start: 05-30-2023 Referral to bundle clerk [facility] Start: 05-29-2023 Blood culture for bacteria, including anaerobic screen Blood Culture [facility] Start: 05-28-2023 Referral to infectious diseases physician [facility] Start: 05-28-2023 Bacteria identified in Urine by Culture Urine Culture [facility] Start: 05-28-2023 Hospital admission [facility] Start: 05-27-2023 [facility] Start: 05-27-2023 Plain X-ray of left shoulder XR shoulder LT min 2V* [facility] Start: 05-27-2023 XR Shoulder - left Views [facility] Start: 05-27-2023 Bacteria identified in Blood by Culture Blood Culture [facility] Start: 05-09-2023 [facility] Start: 05-05-2023 Referral to bundle clerk [facility] Start: 05-05-2023 Blood chemistry [facility] Start: 05-05-2023 [facility] Start: 05-04-2023 Referral to premium representative [facility] Start: 05-04-2023 End: 05-04-2023 [facility] Start: 05-04-2023 Hospital admission [facility] Start: 04-11-2023 [facility] Start: 04-11-2023 CT cervical spine without contrast CT cervical spine wo [facility] Start: 04-11-2023 CT Cervical spine WO [facility] Start: 04-11-2023 CT Lumbar spine WO 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 3,[id number], Status: Pen, Time: 1:00 PM [facility], Provider: [facility] NEEDLE P[employer] MACHINE OPERATOR HELPER 3,[id number], Status: Pen, Time: 1:00 PM [facility] Heart-[facility]ha 101 DO Work Phone: Start: 03-15-2023 [facility], Provider: Joceline Ortega, Status: Pen, Time: 1:00 PM [facility], Provider: Joceline Ortega, Status: Pen, Time: 1:00 PM [facility] 250 DO Work Phone: Start: 05-19-2022 CT Lumbar spine WO [facility] Work Phone: Start: 05-19-2022 CT of lumbar spine without contrast CT lumbar spine wo [facility] Start: 05-19-2022 Computed tomography of thoracic spine without contrast CT thoracic spine wo [facility] Start: 05-19-2022 CT cervical spine without contrast CT cervical spine wo [facility] Start: 05-19-2022 CT Cervical spine WO [facility] Work Phone: Start: 05-19-2022 CT of head without contrast CT head/brain wo [facility] Start: 05-19-2022 CT Thoracic spine WO [facility] Work Phone: Start: 05-19-2022 CT Unspecified body region WO [facility] Work Phone: Start: 05-19-2022 X-ray of right knee XR knee RT 4V* [facility] Start: 05-19-2022 XR Knee - right 4 Views [facility] Work Phone: Start: 2004 Zoster Vaccines (1 of 2) Zoster Vaccines (1 of 2) [facility] Start: 1994 Screening for malignant neoplasm of breast Mammogram [facility] Start: 1976 DTaP/Tdap/Td Vaccines (1 - Tdap) DTaP/Tdap/Td Vaccines (1 - Tdap) [facility] Start: 1973 Urine screening for protein Diabetes: Urine Protein Screening [facility] Start: 1972 Hepatitis C screening Hepatitis C Screening [facility] Start: 1964 Diabetic foot examination Diabetes: Foot Exam [facility] Start: 1964 Glaucoma screening Diabetes: Retinopathy Screening [facility] Start: 1960 Pneumococcal Vaccine: 65+ Years (1 - PCV) Pneumococcal Vaccine: 65+ Years (1 - PCV) [facility] Start: 06-25-1955 COVID-19 Vaccine (#1) COVID-19 Vaccine (#1) [facility] Start: 1954 Hemoglobin A1c measurement Diabetes: Hemoglobin A1C [facility] Start: 1954 Lipid panel Lipid Panel [facility] Start: 1954 Screening for malignant neoplasm of colon [facility] Start: 1954 Screening for osteoporosis Bone Density Scan [facility] Start: 1954 Yearly Adult Physical Yearly Adult Physical [facility] Albumin/Globulin ratio [facility] Anion gap measurement [facility] aPTT in Platelet poo r plasma by Coagulation assay [facility] Bacteria identified in Blood by Culture [facility] Bacteria identified in Blood by Culture [facility] Bacteria identified in Urine by Culture [facility] Basophils [#/volume] in Blood by Automated count [facility] Basophils/100 leukoc ytes in Blood by Automated count [facility] Blood chemistry [facility] Campylobacter coli+jejuni+upsaliensis DNA [Presence] in Stool by BRANDY with non-probe detection [facility] Eosinophils [#/volum e] in Blood [facility] Eosinophils/100 leuk ocytes in Blood by Automated count [facility] Erythrocyte distribu tion width [Ratio] by Automated count [facility] Erythrocytes [#/volu me] in Blood [facility] Escherichia coli enteropathogenic eae gene [Presence] in Stool by BRANDY with non-probe [facility] Escherichia coli enterotoxigenic ltA+st1a+st1b genes [Presence] in Stool by BRANDY with [facility] Escherichia coli O15 7 DNA [Presence] in Stool by BRANDY with non-probe detection [facility] Escherichia coli Stx 1 and Stx2 toxin stx1+stx2 genes [Presence] in Stool by BRANDY with non-probe detection [facility] Globulin [Mass/volum e] in Serum [facility] Hematocrit [Volume Fraction] of Blood [facility] Hemoglobin [Mass/vol ume] in Blood [facility] Infectious agent gen otype identification [facility] INR in Platelet poor plasma by Coagulation assay [facility] Leukocytes [#/volume ] corrected for nucleated erythrocytes in Blood by Automated coun [facility] Leukocytes [#/volume ] in Blood [facility] Lymphocytes [#/volum e] in Blood by Automated count [facility] Lymphocytes/100 leuk ocytes in Blood by Automated count [facility] MCH [Entitic mass] b y Automated count [facility] MCHC [Mass/volume] b y Automated count [facility] MCV [Entitic volume] by Automated count [facility] Monocytes [#/volume] in Blood by Automated count [facility] Monocytes/100 leukoc ytes in Blood by Automated count [facility] Neutrophils [#/volum e] in Blood by Automated count [facility] Neutrophils/100 leuk ocytes in Blood by Automated count [facility] Nucleated erythrocyt es [Presence] in Blood by Automated count [facility] Patient Education [facility] Work Phone: Patient referral [facility] Work Phone: Platelet mean volume [Entitic volume] in Blood by Automated count [facility] Platelets [#/volume] in Blood [facility] Plesiomonas shigello ides DNA [Presence] in Stool by BRANDY with non-probe detection [facility] Prothrombin time (PT) [facility] Salmonella enterica+ bongori DNA [Presence] in Stool by BRANDY with non-probe detection [facility] Shigella species+EIE C invasion plasmid antigen H ipaH gene [Presence] in Stool by BRANDY [facility] Vibrio cholerae DNA [Presence] in Stool by BRANDY with non-probe detection [facility] Vibrio cholerae+parahaemolyticus+v ulnificus DNA [Presence] in Stool by BRANDY with non-probe detection [facility] Immunizations Immunization Date Immunization Notes Care Provider Fa [facility] 07-11-2022 Fluad Quadrivalent 0 .5 ML Intramuscular Prefilled Syringe Latrice Bergeron Work Phone: [facility] 713 DO Work Phone: 07-11-2022 Pfizer COVID-19 Vac Bivalent 30 MCG/0.3ML Intramuscular Suspension Latrice Bergeron Work Phone: [facility] [employer] DO Work Phone: 02-15-2022 Pfizer-BioNTech COVI D-19 Vacc 30 MCG/0.3ML Intramuscular Suspension Latrice Bergeron Work Phone: [facility] 08-14-2021 COVID-19 Sharron Juarez (Pfizer) MD Latrice Bergeron Work Phone: [facility] 07-12-2021 Flu Vaccine - Adult MD Kar Bergeron Work Phone: [facility] 07-12-2021 influenza, seasonal, injectable MD Latrice Bergeron Work Phone: [facility] 07-02-2021 influenza, high dose seasonal, preservative-free Latrice Bergeron Work Phone: [facility] 250 DO Work Phone: 01-24-2021 COVID-19 Sharron Juarez (Pfizer) MD Latirce Bergeron Work Phone: [facility] 01-21-2021 Pfizer-BioNTech COVI D-19 Vacc 30 MCG/0.3ML Intramuscular Suspension Latrice Bergeron Work Phone: [facility] [employer] DO Work Phone: 12-31-2020 COVID-19 mRNASharron (Pfizer) MD Latrice Bergeron Work Phone: [facility] 09-04-2020 influenza, injectabl e, quadrivalent, preservative free Latrice [place] Chris Work Phone: [facility] [employer] DO Work Phone: 06-09-2020 pneumococcal conjuga te vaccine, 13 valent Latrice [place] Chris Work Phone: [facility] [employer] DO Work Phone: 11-12-2019 zoster vaccine recombinant Latrice Bergeron Work Phone: [facility] [employer] DO Work Phone: 07-30-2019 influenza, seasonal, injectable Latrice Bergeron Work Phone: [facility] [employer] DO Work Phone: 07-24-2019 zoster vaccine recombinant Latrice Bergeron Work Phone: [place] [address] DO Work Phone: 07-22-2019 influenza, injectabl e, madin kathleen canine kidney, preservative free Latrice [place] Chris Work Phone: [facility] 250 DO Work Phone: 08-07-2018 Influenza, injectabl e, Madin [place] Canine Kidney, preservative free, quadrivalent Latrice Bartholomew Chris Work Phone: [facility] 250 DO Work Phone: 07-21-2017 influenza, injectabl e, quadrivalent, preservative free Latrice L Chris Work Phone: [facility] 250 DO Work Phone: 07-19-2016 influenza, injectabl e, madin kathleen canine kidney, preservative free Latrice L Chris Work Phone: [place] [address] DO Work Phone: 07-22-2015 influenza, injectabl e, madin kathleen canine kidney, preservative free Latrice L Chris Work Phone: [place] [address] DO Work Phone: 06-18-2015 zoster vaccine, live Latrice L Chris Work Phone: [place] [address] DO Work Phone: Payers Date Payer Category Payer Medicare [id number] 2023 Self-pay [id number] 2023 Medicare [id number] 1954 Unknown [id number] 1954 Unknown [id number] .[id number] 1954 Unknown [id number] ..[id number] 1954 Unknown [id number] .[id number] 1954 Unknown [id number] .[id number] 1954 Unknown [id number] 2.16.840.1.144133.3.579.2.356 1954 Unknown [id number] 2.16.840.1.974970.3.579.2.356 1954 Unknown [id number] 2.16.840.1.415156.3.579.2.356 1954 Unknown [id number] 2.16.840.1.336415.3.579.2.356 1954 Unknown [id number] 2.16.840.1.340138.3.579.2.356 1954 Unknown [id number] 2.16.840.1.813091.3.579.2.1259 1954 Unknown [id number] 2.16.840.1.899796.3.579.2.1259 1954 Unknown [id number] 2.16.840.1.030744.3.579.2.1259 1954 Unknown [id number] 2.16.840.1.208856.3.579.2.1259 1954 Unknown [id number] 2.16.840.1.106786.3.579.2.1259 1954 Unknown [id number] 2.16.840. 1.244652.3.579.2.1259 Medicare [place] [id number] Medicare Unknown Unknown [facility] [id number] Unknown [id number] 2.16.840.1.793566.3.579.2.531 Unknown [id number] 2.16.840.1.617438.3.579.2.531 Unknown [id number] 2.16.840.1.921146.3.579.2.531 Unknown [id number] 2.16.840.1.616473.3.579.2.531 Unknown [id number] 2.16.840.1.050533.3.579.2.531 Social History Date Type Detail Facility Start: 05-19-2022 End: 02-13-2024 Tobacco smoking status NHIS Never smoked tobacco (finding) [facility] Start: 1955 Sex Assigned At Female F [facility] No alcohol use No alcohol use [facility] 250 DO Work Phone: Comment on above: OCCASSIONAL; Start: 05-04-2023 End: 02-21-2024 Tobacco smoking status NHIS Ex-smoker (finding) [facility] Start: 05-30-2023 Unknown if vincent smith smoked [facility] Start: 1955 Sex Assigned At Not on file [facility] Work Phone: Gender identity Not on file [facility] Work Phone: Goals Date Patient Goal Desired Activity /State Functional Status Date Assessment Result Facility 02-22-2024 Functional status Patient at Baseline [facility] Work Phone: 09-06-2023 Functional status Patient at Baseline [facility] Work Phone: 08-31-2023 Functional status Patient at Baseline [facility] Work Phone: 06-01-2023 Functional status Patient is Pro gressing Toward [facility] Work Phone: 05-28-2023 Functional status Disability Sta tus Patient Not at [facility] Work Phone: 05-09-2023 Functional status Patient at Baseline [facility] Work Phone: Mental Status Date Assessment Result Facility 02-22-2024 Cognitive function Cognitive Sta tus Patient at Baseline [facility] Work Phone: 09-06-2023 Cognitive function Cognitive Sta tus Patient at Baseline [facility] Work Phone: 08-31-2023 Cognitive function Cognitive Sta tus Patient at Baseline [facility] Work Phone: 06-01-2023 Cognitive function Cognitive Sta tus Patient at Baseline [facility] Work Phone: 05-09-2023 Cognitive function Cognitive Sta tus Patient at Baseline [facility] Work Phone: Clinical Notes 12-21-2021 to 02-22-2024 Note Date & Type Note Facility 02-22-2024 Progress note Note Date/Time February 22, 2024 10:07am [facility] [address] [place] [address] Infect. Disease Progress Note Signed Patient: Namrata Jack MR#: [id number] : 1955 Acct:[id number] Age/Sex: 68 / F Adm Date: 4 Loc: Room: [address] [place] [address] Type: ADM IN Attending Dr: Sawyer Dozier MD Copies to: ~ Date of Service: 02/22/2024 Subjective Interval history: Patient is doing okay today. States she is actually doing good. No new complaints physically. Exam Physical Exam Vital Signs: Temp Pulse Resp BP Pulse Ox O2 Del Method O2 Flow Rate 97.5 F L 71 16 155/73 H 95 Room Air 1 02/22/24 07:49 02/22/24 07:49 02/22/24 07:49 02/22/24 07:49 02/22/24 07:49 02/22/24 07:49 02/15/24 20:00 FiO2 21 02/15/24 22:35 Const General: comfortable Orientation: oriented x3 HEENT Head: normal to inspection Ears: hearing grossly normal bilaterally Mouth: oral mucosae normal Eyes General: appearance normal, both eyes and all related structures Neck Neck: normal visual inspection Chest Chest palpation & inspection: normal inspection of the chest Resp Effort & Inspection: normal respiratory effort Auscultation: clear to auscultation bilaterally Cardio Palpation: normal PMI Rate: regular rate Rhythm: regular rhythm GI Inspection: normal to inspection Palpation: soft and nontender Auscultation: normal bowel sounds Skin General: other (Compression dressings on the lower legs) Neuro General: patient oriented x3 Extrem General: abnormal to inspection (see skin) Objective Labs CBC/BMP: CBC, BMP 02/22/24 06:31 Corrected WBC 17.1 H Uncorrected WBC Count 17.1 H RBC 3.67 Hgb 11.2 L Hct 34.0 Plt Count 285 Sodium 140 Potassium 4.2 Chloride 96 L Carbon Dioxide 33.9 H Anion Gap 14.3 BUN 44 H Creatinine 1.30 H Calcium 8.7 Labs: 02/22/24 06:31 BUN 44 H Creatinine 1.30 H Microbiology Microbiology: Microbiology - Results from entire visit 02/21/24 02:31 Stool Stool Culture - Preliminary 02/13/24 21:46 Blood - Left Arm Blood Culture - Final NO GROWTH 5 DAYS 02/13/24 21:56 Blood - Left Hand Blood Culture - Final NO GROWTH 5 DAYS 02/14/24 17:55 Straight Catheter Urine Culture - Final <9,000 colonies/ml mixed bacterial skin contaminants 2 Days Allergies and Medications Allergies and Active Meds Allergies Penicillins Allergy (Severe, Verified 02/13/24 17:20) Anaphylaxis Iodinated Contrast Media Allergy (Mild, Verified 02/13/24 17:20) Anaphylaxis Active Medications Acetaminophen (Acetaminophen 325 Mg Tablet) 650 mg PO Q4H PRN PRN Reason: Pain Scale 1 - 3 or fever Stop: 02/12/25 20:56 Last Admin: 02/22/24 01:38 Dose: 650 mg Hydrocodone Bitart/Acetaminophen (Hydrocodone/Acetaminophen 5-325 Mg Tablet) 1 tab PO Q4H PRN PRN Reason: Pain Scale 6 - 10 Last Admin: 02/22/24 06:44 Dose: 1 tab Amlodipine Besylate (Amlodipine 5 Mg Tablet) 5 mg PO DAILY [facility] Stop: 02/13/25 08:59 Last Admin: 02/22/24 08:48 Dose: 5 mg Ascorbic Acid (Ascorbic Acid 500 Mg Tablet) 1,000 mg PO DAILY [facility] Stop: 02/15/25 08:59 Last Admin: 02/22/24 08:48 Dose: 1,000 mg Aspirin (Aspirin 81 Mg Tablet.) 81 mg PO DAILY [facility] Stop: 02/13/25 08:59 Last Admin: 02/22/24 08:48 Dose: 81 mg Balsam Harriet/Altoona Oil (Balsam Harriet/Altoona Oil Oint 60 Gm Tube) 1 applic TOPICAL TID [facility] Stop: 02/13/25 13:59 Last Admin: 02/22/24 08:49 Dose: 1 applic Clopidogrel Bisulfate (Clopidogrel Bisulfate 75 Mg Tablet) 75 mg PO DAILY [facility] Stop: 02/13/25 08:59 Last Admin: 02/22/24 08:48 Dose: 75 mg Dextrose (Dextrose 50% In Water 25 Gm/50 Ml Syringe) 0 gm IV-PUSH PRN PRN PRN Reason: Hypoglycemia Stop: 02/12/25 20:40 Diclofenac Sodium (Diclofenac Sodium 1% Gel 100 Gm Tube) 4 gm TOPICAL QID [facility] Stop: 02/12/25 21:59 Last Admin: 02/22/24 08:49 Dose: 4 gm Docusate Sodium (Docusate 100 Mg Capsule) 100 mg PO BID [facility] Stop: 02/16/25 20:59 Last Admin: 02/22/24 08:48 Dose: 100 mg Enoxaparin Sodium (Enoxaparin 40 Mg/0.4 Ml Syringe) 40 mg SUBCUT BID@1000,2200 [facility] Stop: 02/20/25 21:59 Last Admin: 02/21/24 21:58 Dose: 40 mg Folic Acid (Cyanocobalamin/Fa/Pyridoxine 1 Tab Tablet) 1 tab PO DAILY [facility] Stop: 02/15/25 08:59 Last Admin: 02/22/24 08:48 Dose: 1 tab Furosemide (Furosemide 40 Mg Tablet) 40 mg PO BID@0800,1600 [facility] Stop: 02/17/25 15:59 Last Admin: 02/22/24 08:49 Dose: 40 mg Gabapentin (Gabapentin 600 Mg Tablet) 600 mg PO BID [facility] Stop: 02/12/25 21:29 Last Admin: 02/13/24 22:29 Dose: 600 mg Gabapentin (Gabapentin 100 Mg Capsule) 200 mg PO BID [facility] Stop: 02/13/25 08:59 Last Admin: 02/22/24 08:48 Dose: 200 mg Glucose (Dextrose 40% Gel 15 Gm Tube) 0 gm PO PRN PRN PRN Reason: Hypoglycemia Stop: 02/12/25 20:40 Hydromorphone HCl (Hydromorphone 0.5 Mg/0.5 Ml Syringe) 0.5 mg IV-PUSH Q4H PRN PRN Reason: Pain Scale 6 - 10 Last Admin: 02/21/24 12:31 Dose: 0.5 mg Ertapenem (Invanz) 1 gm in 100 mls @ 200 mls/hr IV Q24H [facility] Last Admin: 02/21/24 11:42 Dose: 200 mls/hr Insulin Aspart (Insulin Aspart 300 Units/3 Ml Insuln.Pen) 0 units SUBCUT TID.WM.HS [facility]; Protocol Stop: 02/12/25 21:59 Last Admin: 02/22/24 08:49 Dose: Not Given Insulin Glargine (Insulin Glargine 300 Units/3 Ml Insuln.Pen) 25 units SUBCUT BID [facility] Stop: 02/15/25 20:59 Last Admin: 02/22/24 08:50 Dose: 25 units Linezolid (Linezolid 600 Mg Tablet) 600 mg PO BID [facility] Stop: 02/24/24 20:59 Last Admin: 02/22/24 08:48 Dose: 600 mg Magnesium Oxide (Magnesium Oxide 400 Mg Tablet) 400 mg PO DAILY [facility] Stop: 02/20/25 17:59 Last Admin: 02/22/24 08:48 Dose: 400 mg Metoclopramide HCl (Metoclopramide 10 Mg/2 Ml Vial) 5 mg IV-PUSH Q6H PRN PRN Reason: Nausea/Vomiting Stop: 02/12/25 20:40 Metoprolol Tartrate (Metoprolol Tartrate 12.5 Mg Tablet) 12.5 mg PO BID [facility] Stop: 02/12/25 21:29 Last Admin: 02/22/24 08:48 Dose: 12.5 mg Oxybutynin Chloride (Oxybutynin Chloride 5 Mg Tablet) 5 mg PO BID [facility] Stop: 02/14/25 20:59 Last Admin: 02/22/24 08:49 Dose: 5 mg Potassium Chloride (Potassium Chloride Er 10 Meq Tablet.Er) 30 meq PO BID [facility] Stop: 02/20/25 20:59 Last Admin: 02/22/24 08:48 Dose: 30 meq Ranolazine (Ranolazine 500 Mg Tab.Er.12h) 500 mg PO Q12H [facility] Stop: 02/12/25 20:44 Last Admin: 02/22/24 08:49 Dose: 500 mg Sertraline HCl (Sertraline 100 Mg Tablet) 100 mg PO DAILY [facility] Stop: 02/13/25 08:59 Last Admin: 02/22/24 08:48 Dose: 100 mg Simethicone (Simethicone 80 Mg Tab.Chew) 80 mg PO TID.WM.HS PRN PRN Reason: Abdominal Distention Stop: 02/19/25 20:40 Last Admin: 02/20/24 22:00 Dose: 80 mg Sodium Chloride (Sodium Chloride 0.9 % 10 Ml Syringe) 0 ml IV-PUSH PRN PRN PRN Reason: Flush Stop: 02/12/25 17:17 Last Admin: 02/18/24 08:38 Dose: 10 ml Sodium Chloride (Sodium Chloride 0.9 % 10 Ml Syringe) 0 ml IV-PUSH PRN PRN PRN Reason: Flush Stop: 02/12/25 20:56 Last Admin: 02/16/24 15:07 Dose: 10 ml Vitamin D (Cholecalciferol 25 Mcg (1,000 Units) Tablet) 100 mcg PO DAILY [facility] Stop: 02/15/25 08:59 Last Admin: 02/22/24 08:48 Dose: 100 mcg A&P - Infectious Disease Assessment/Plan (1) Leukocytosis: (2) Intractable nausea and vomiting: (3) Diarrhea: (4) Venous stasis ulcers of both lower extremities: Plan Patient likely to be discharged today. [facility]. Transition to oral antibiotics on discharge. Wound care to continue there. White count still remains elevated but overall has improved. Based on antibiotics and her history feel that when discharged to a usp facility that Linezolid can finish another 3 days and that ertapenem can be transition to a third-generation oral cephalosporin to finish an additional 6 days. Documented By: Deep Eubanks MD 02/22/24 1003 Signed By: <Electronically signed by MD Deep Eubanks> 02/22/24 1007 [facility] Work Phone: 1(184) 885-286404-25-2024 Discharge summary Author Sawyer Dozier [facility] February 22, 2024 12:18pm Note Date/Time February 22, 2024 9:1 0am [facility] [address] [place] [address] Discharge Summary Signed Patient: Namrata Jack MR#: [id number] : 1955 Acct:[id number] Age/Sex: 68 / F Adm Date: 4 Loc: Room: [address] [place] [address]: Sawyer Dozier MD Copies to: MD Latrice Oseguera MD~ Providers Date of Discharge: 02/22/24 Discharging Provider: Sawyer Dozier Primary Care Provider: Latrice Bergeron Consults: 02/14/24 14:50 Consult to Dietitian Routine Comment: Reason for Consult: PO Supplement Eval&Order 02/15/24 08:00 Consult to Nephrology Routine Comment: Consulting Provider: Ari Fernández Has Provider Been Notified: Yes Date of Notification: 02/15/24 Time of Notification: 08:06 Reason for Consult: Acute Kidney Injury 02/15/24 10:17 Consult to Infectious Diseases Routine Comment: Consulting Provider: Deep Eubanks Reason For Exam: leukocytosis Has Provider Been Notified: Yes Date of Notification: 02/15/24 Time of Notification: 10:37 02/16/24 10:59 OT [Consult to Occupational Therapy] Routine Comment: Physician Instructions: Consult to OT for:: Evaluation and Treat PT [Consult to Physical Therapy] Routine Comment: Physician Instructions: Consult to PT for:: Evaluation and Treat 02/16/24 11:03 Consult to Occupational Therapy Routine Comment: Physician Instructions: Consult to OT for:: Evaluation and Treat Consult to Physical Therapy Routine Comment: Physician Instructions: Consult to PT for:: Evaluation and Treat 02/21/24 10:48 Consult to Cardiology Routine Comment: Consulting Provider: [facility], [facility] Reason For Exam: CAD, NS V tach Has Provider Been Notified: Yes Date of Notification: 02/21/24 Time of Notification: 11:39 Discharge Diagnosis (1) Intractable nausea and vomiting: (2) BMI 50.0-59.9, adult: (3) Dehydration: (4) Inflammation: (5) Coronary angioplasty status: (6) Hypomagnesemia: (7) Hypokalemia: (8) NSVT (nonsustained ventricular tachycardia): (9) Cellulitis: (10) Acute kidney injury: Final Diagnosis Final Discharge Diagnosis: As stated above and others that are not listed Summary Hospital Course Hospital course: Namrata Jack is a 68-year-old female with past medical history of diabetes, hypertension, CAD, GERD, and CKD presented to the ER for nausea and vomiting. She was diagnosed having dehydration and intractable nausea and vomiting. Her hospital stay was complicated by venous stasis ulcers, JOY, and NSVT. Patient was seen by cardiology team recommended placement of her potassium and magnesium and continuation of beta-maria esther. Patient was seen by nephrology team regarding her JOY. Initially patient was started on IV fluid infusion and subsequently converted to intravenous diureticsdue to her fluid overload. Her JOY had resolved. Echocardiogram showed normal ejection fraction. Patient was seen by infectious disease to manage her antibiotic treatment for bilateral lower extremity cellulitis. Patient completed the recommended course of IV antibiotic and will be discharged on Zyvox for 3 days and cephalosporin for 6 days. Functional impairment. Patient was seen by physical Occupational Therapy team and recommended to be admitted to the skilled unit for short-term skilled therapy rehabilitation. Diabetes, adjustment of insulin were made. Hypertension. Adjustment of BP meds were made. Patient has multiple complex medical issues as listed above and others that are not listed. All appear to be stable. Patient is cleared by nephrology and infectious disease as well as cardiology to be discharged to the nursing facility. At this time, I do not have any clear or strong clinical justification to extend inpatient hospitalization. Patient however will requireclose and frequent monitoring as well as additional work-up, investigation and therapeutic intervention that could take place from this point on post discharge. That is to prevent relapse, decompensation, rehospitalization and other medical implications. I instructed patient to ask her primary care doctor to obtain [facility] record entirely to address abnormalities seen on labs and imagingthat I have and have not addressed during this hospitalization, follow-up on pending blood work, imaging and pathology is if available and to follow-up on needed medical care in the outpatient setting. Time Spent with Patient Time spent providing/coordinating discharge services (# min): 30 Discharge Plan Discharge Plan Patient Disposition: Senior Care Facility Activity: Ambulate as Tolerated and With Assist Diet: Regular Additional Instructions: SNF TO MANAGE: PT/OT to eval and treat Monitor VS per protocol Monitor FSBS Monitor GI assessment--Nausea, Vomiting Monitor Cardiac assessment--CAD, Nonsustained VT Monitor Skin assessment Daily wound care to bilateral lower leg ulcers, foot blisters and medial thigh blisters: *clean with vashe, apply xerofoam, apply abd pads and secure with kerlix *then 4 inch lisa wrap then 6 inch lisa wrap to include lower thigh start attoes Skin care TID to right lateral hip suspected deep tissue injury- apply venelex ointment Dietitian recommendations: Glucerna, 1 container, daily with a meal and after each meal if eats < 50% Maintain high risk fall precautions Care to be managed by SNF providers retirement providers: -Please titrate blood pressure medication to keep blood pressure under control. -Please titrate diuretics to keep patient in euvolemic state. -Please order weekly BMP and CBC for 4 weeks to monitor electrolytes, kidney function, WBC and hemoglobin. I may not have addressed or treated all of your medical illnesses or the abnormal blood work or imaging studies during this hospitalization. Please ask your primary care provider to obtain [facility] records entirely to follow up on all of the abnormal physical, laboratory, and imaging findings that I have not addressed. Please return back to the emergency room or seek medical attention if your symptoms worsen or return. Discharging you from [facility] does not mean that your medical care ends here and now. You may still need additional monitoring, work up, investigation, and treatment plan to be handled from this point on by out patient providers including your primary care provider and specialists. For any medication question, please contact your retail pharmacist or your primary care provider. Thank you. Check your blood sugar 3 times a day before meals. Document these numbers on a blood glucose log and bring them with you to your follow-up appointment with your primary care doctor. Communicate with your primary care doctor or holistic specialist if your blood sugar is under 100 or above 300 on 2 consecutive checks. Communicate with your primary care doctor or holistic specialist if you have anyquestions about your diabetes medications. Signs of a low blood sugar include sweating, racing heart, dizziness and/or weakness. Check your blood sugar if you have any of the symptoms. Prescriptions: New linezolid 600 mg Tablet 600 mg PO BID 3 Days Qty: 6 0RF cefadroxil 500 mg capsule 500 mg PO Q8HR 6 Days Qty: 18 0RF magnesium oxide 400 mg (241.3 mg magnesium) Tablet 400 mg PO DAILY Qty: 0 0RF simethicone 80 mg Tablet,Chewable 80 mg PO TID.WM.HS PRN (Reason: Abdominal Distention) Qty: 0 0RF insulin glargine [Lantus Solostar U-100 Insulin] 100 unit/mL (3 mL) Insulin Pen 25 unit subcut BID Qty: 0 0RF hydrocodone-acetaminophen 5-325 mg Tablet 1 tab PO Q4H PRN (Reason: Pain Scale 6 - 10) 5 Days Qty: 15 0RF dextrose [Glutose-15] 40 % Gel 0.6 g PO PRN PRN (Reason: Hypoglycemia) Qty: 0 0RF docusate sodium 100 mg Capsule 100 mg PO BID Qty: 0 0RF gabapentin 100 mg Capsule 200 mg PO BID Qty: 0 0RF torsemide 20 mg Tablet 20 mg PO DAILY@0800 Qty: 0 0RF insulin aspart U-100 [Novolog FlexPen U-100 Insulin] 100 unit/mL (3 mL) Insulin Pen 1 unit subcut TID.WM.HS Qty: 0 0RF Protocol: Corrective Scale #3 (TDI 51-75 UNITS) Condition: Corrective Scale #3 (TDI 51-75 UNITS) Condition: Dose/Route: Instruction: Condition: Fingerstick Blood Glucose Dose/Route: Insulin Units Condition: 150-199 mg/dl Dose/Route: 3 unit Condition: 200-249 mg/dl Dose/Route: 4 unit Condition: 250-299 mg/dl Dose/Route: 7 unit Condition: 300-349 mg/dl Dose/Route: 10 unit Condition: 350-399 mg/dl Dose/Route: 12 unit Condition: greater than or = 400 mg/dl Dose/Route: 14 unit Instruction: Call Provider Protocol Text: *If the corrective scale dose has been administered within the past 4 hours, do not use corrective scale again unless approved by prescriber* losartan 25 mg tablet 25 mg PO DAILY Qty: 30 0RF Continued oxybutynin chloride 5 mg tablet 5 mg PO BID Patient Comments: clopidogrel [Plavix] 75 mg Tablet 75 mg PO DAILY amlodipine 5 mg tablet 5 mg PO DAILY Patient Comments: TAKE 1 TABLET BY MOUTH ONCE DAILY vitamin B complex Capsule 1 cap PO DAILY aspirin 81 mg Tablet,Delayed Release (Dr/Ec) 81 mg PO DAILY metoprolol tartrate 25 mg Tablet 12.5 mg PO BID ranolazine 500 mg tablet extended release 12 hr 500 mg PO Q12H sertraline 100 mg tablet 100 mg PO Q24H spironolactone 25 mg tablet 25 mg PO DAILY Changed cholecalciferol (vitamin D3) 2,000 unit Capsule 2,000 unit PO DAILY Qty: 14 0RF Discontinued zolpidem 5 mg tablet 5 mg PO HS PRN (Reason: Insomnia) Patient Comments: gabapentin 300 mg capsule 600 mg PO BID Patient Comments: cyclobenzaprine 10 mg Tablet 10 mg PO TID PRN (Reason: Spasms) Levemir U-100 Insulin 100 unit/mL Solution 30 unit SUBCUT DAILY Rx Instructions: QHS ascorbic acid (vitamin C) [Vitamin C] 1,000 mg Tablet 1,000 mg PO DAILY metolazone 5 mg tablet 5 mg PO DAILY Patient Comments: TAKE 1 TABLET BY MOUTH IN THE MORNING insulin aspart U-100 [Novolog U-100 Insulin aspart] 100 unit/mL solution 30 unit subcut TID.AC Rx Instructions: This in additon to Sliding scale losartan 100 mg Tablet 100 mg PO DAILY hydrocodone-acetaminophen 10-325 mg tablet 10 - 325 mg PO Q6H PRN (Reason: Pain) Levemir U-100 Insulin 100 unit/mL Solution 30 unit SUBCUT QHS polyethylene glycol 3350 [HealthyLax] 17 gram Powder In Packet 17 g PO BID Qty: 0 0RF furosemide 40 mg tablet 40 mg PO DAILY Qty: 30 3RF Rx Instructions: We discussed once a day and if your weight increases by 3 pounds, take an additional dose of Lasix in the afternoon potassium chloride 20 mEq tablet extended release 20 meq PO DAILY Qty: 30 3RF ondansetron HCl 4 mg tablet 4 mg PO Q8HR PRN (Reason: nausea and vomiting) 5 Days Qty: 15 0RF Follow Up: [facility] [place] [Outside] - 03/26/24 10:40 am (Dr. Nelson appointment.) Joceline Ortega MD [Courtesy/Consulting Physician] - 04/25/24 9:00 am Exam Physical Exam Vital Signs: Temp Pulse Resp BP Pulse Ox O2 Del Method O2 Flow Rate 97.5 F L 71 16 155/73 H 95 Room Air 1 04/25/24 07:49 02/22/24 07:49 02/22/24 07:49 02/22/24 07:49 02/22/24 07:49 02/22/24 07:49 02/15/24 20:00 FiO2 21 02/15/24 22:35 Narrative: General: Patient is seen laying in bed this morning. She is acting appropriate and cooperative. Cardiac: Heart rate and rhythm regular without murmurs, rubs, or gallops. Pulmonary: Lungs clear to auscultation bilaterally without wheezes, rales, rhonchi. GI: Soft, nondistended, diffuse tenderness to palpation predominantly in the lateral aspects of her pannus. Bowel sounds x 4. Lower extremity: I inspected her lower extremities after the nurse opened up. Dressing. The blistering had faded away. Less erythema, induration and tenderness. Still quite extensive cellulitic involvement in both legs from the mid thigh down to the ankle. The most affected area is from the knee down to the ankle anteriorly, medially and laterally. Diagnostic Studies Completed and Pending Studies Pending studies at discharge: 02/21/24 02:31 Gastrointestinal Profile, PCR Routine Stool Culture Routine Preliminary micro results at discharge 02/21/24 02:31 Stool Culture - Pending Stool Labs on day of discharge: 02/22/24 06:36: POC Glucose 96 02/22/24 06:31: Corrected WBC 17.1 H, Uncorrected WBC Count 17.1 H, RBC 3.67, Hgb 11.2 L, Hct 34.0, MCV 92.6, MCH 30.6, MCHC 33.0, RDW 14.3, Plt Count 285, MPV 6.5, Neut % (Auto) N/A, Lymph % (Auto) N/A, Mesa % (Auto) N/A, Eos % (Auto) N/A, Baso % (Auto) N/A, Nucleat RBC Rel Count N/A, Neut # (Auto) N/A, Lymph # (Auto) N/A, Mesa # (Auto) N/A, Eos # (Auto) N/A, Baso # (Auto) N/A, Lymphocytes % 9 L, Monocytes % 4, Eosinophils % 3, Myelocytes % 3 H, Segmented Neutrophils 82 H, Platelet Estimate Normal, Plt Morphology Comment Normal, RBC Morphology Normal, PHA Creatinine Clear 64.89, Sodium 140, Potassium 4.2, Chloride 96 L, Carbon Dioxide 33.9 H, Anion Gap 14.3, BUN 44 H, Creatinine 1.30 H, Est GFR (CKD-EPI) 44.513, Glucose 69 L, Calcium 8.7, Magnesium 1.9 02/21/24 20:38: POC Glucose 141 02/21/24 15:54: POC Glucose 211 02/21/24 11:36: POC Glucose 225 Documented By: Sawyer Dozier MD 02/22/24 0842 Signed By: <Electronically signed by Sawyer Dozier MD> 02/22/24 1218 [facility] Work Phone: 1(906) 371-129604-24-2024 Consult note Author W Marcelino [facility] February 21, 2024 6:17pm Note Date/Time February 21, 2024 6:0 5pm [facility] [address] [place] [address] Cardiology Consult Note Signed Patient: Namrata Jack MR#: [id number] : 1955 Acct:[id number] Age/Sex: 68 / F Adm Date: 4 Loc: Room: [address] [place] [address] Type: ADM IN Attending Dr: Sawyer Dozier MD Copies to: MD Latrice Oseguera MD W Scott Sheldon, DO~ Cardiology HPI History of Present Illness Consult Date: 02/21/24 Reason for Consult: Nonsustained VT HPI: Ms. Jack is a 68 year old female seen in cardiology consultation at the request of the hospitalist and patient who presents on February 12 with recurrent nausea vomiting and diarrhea, and electrolyte disorders (hypokalemia, hyponatremia, hypomagnesemia); Details of which are reviewed and hospitalist admission note and ER notes. Initial temperature was as high as 100.4. She denies any chest heaviness, pressure or discomfort other than feeling very weak. Yesterday and today she developed short runs of nonsustained VT between 4 and 9 beats that are asymptomatic, associated with low magnesium of 1.4-1.7, and potassium 3.6. ECG is otherwise nonischemic, troponins are not measured and patient is asymptomatic without chest discomfort See details of previous cardiology consultations performed by myself, Dr. Kern and Dr. Chaparro in 2022 as well. Notably she does have coronary artery disease, she has had previous stents and acute coronary syndrome dating back to prior 2016 and 2016 with revascularizations of the LAD and proximal and distal RCA; and very severe disease of the apical LAD not amenable to revascularization with preserved LV function. Echocardiogram from this admission reveals normal left ventricular function without wall motion abnormality. ECGs also revealed no ischemic changes. I believe her nonsustained VT represents a combination of comorbidities including ongoing inflammation likely GI in etiology, electrolyte abnormalities with persistent hypokalemia and hypomagnesemia, as well as ischemic involving the apical LAD (although asymptomatic) with a very small myocardial substrate atrisk. Notably patient did have heart catheterization in February [address] Joceline Ortega at [facility] revealing widely patent RCA and LAD stents and persistent very distal apical LAD disease. Based on the above is no evidence of acute coronary syndrome, evidence of activeinflammation/possible infection, and electrolyte abnormalities, I would simply recommend repletion of potassium and magnesium as initial therapeutic intervention for nonsustained VT. Her baseline heart rate is otherwise sinus bradycardia at 60 currently on very low-dose beta-maria esther, and I would keep metoprolol at same dosage at the present time. Will institute higher dose potassium and magnesium supplementation this evening [facility] Medical History (Updated 02/21/24 @ 18:17 by Rui Benson DO) CKD (chronic kidney disease) stage 3, GFR 30-59 ml/min Presence of neurostimulator nonfunctioning Pickwickian syndrome Morbid obesity with BMI of 50.0-59.9, adult Neuropathy CAD (coronary artery disease) Diverticulosis Diabetes mellitus HTN (hypertension) Osteoarthritis GERD (gastroesophageal reflux disease) Asthma allergy induced Surgical History Hx of neck surgery History of back surgery Hx of knee surgery Hx of cholecystectomy Hx of hysterectomy Hx of appendectomy Hx of heart artery stent X6 Family History Father CAD (coronary artery disease) AMI (acute myocardial infarction) Sister CAD (coronary artery disease) AMI (acute myocardial infarction) Sister CAD (coronary artery disease) AMI (acute myocardial infarction) Brother CAD (coronary artery disease) Father History of stroke [facility] Problem: Diagnosed with Stroke Heart disease Hypertension Diabetes Mother History of malignant neoplasm of cervix Cancer [facility] Problem: Diagnosed with Cancer Family history of mental disorder [facility] Problem: Diagnosed with Mental Illness Social History Smoking Status: Former smoker Tobacco Type: cigarettes Substance Use Type: None Meds Medications and Allergies Allergies Penicillins Allergy (Severe, Verified 02/13/24 17:20) Anaphylaxis Iodinated Contrast Media Allergy (Mild, Verified 02/13/24 17:20) Anaphylaxis Home Medications oxybutynin chloride 5 mg tablet 5 mg PO BID 01/20/18 [History Confirmed 02/13/24] zolpidem 5 mg tablet 5 mg PO HS PRN Insomnia 01/20/18 [History Confirmed 02/13/24] gabapentin 300 mg capsule 600 mg PO BID 02/24/18 [History Confirmed 02/13/24] cholecalciferol (vitamin D3) 50 mcg (2,000 unit) capsule 4,000 unit PO DAILY 06/01/19 [History Confirmed 02/13/24] clopidogrel 75 mg tablet (Plavix) 75 mg PO DAILY 06/01/19 [History Confirmed 02/13/24] cyclobenzaprine 10 mg tablet 10 mg PO TID PRN Spasms 06/01/19 [History Confirmed 02/13/24] potassium chloride 20 mEq tablet,extended release 20 meq PO DAILY #30 tabs 06/11/19 [Rx Confirmed 02/13/24] insulin detemir U-100 100 unit/mL subcutaneous solution (Levemir U-100 Insulin) 30 unit subcut DAILY 05/04/23 [History Confirmed 02/13/24] amlodipine 5 mg tablet 5 mg PO DAILY 08/31/23 [History Confirmed 02/13/24] ascorbic acid (vitamin C) 1,000 mg tablet (Vitamin C) 1,000 mg PO DAILY 08/31/23[History Confirmed 02/13/24] aspirin 81 mg tablet,delayed release 81 mg PO DAILY 08/31/23 [History Confirmed 02/13/24] hydrocodone 10 mg-acetaminophen 325 mg tablet 10 - 325 mg PO Q6H PRN Pain 08/31/23 [History Confirmed 02/13/24] insulin aspart U-100 100 unit/mL subcutaneous solution (Novolog U-100 Insulin aspart) 30 unit subcut TID.AC 08/31/23 [History Confirmed 02/13/24] insulin detemir U-100 100 unit/mL subcutaneous solution (Levemir U-100 Insulin) 30 unit subcut QHS 08/31/23 [History Confirmed 02/13/24] losartan 100 mg tablet 100 mg PO DAILY 08/31/23 [History Confirmed 02/13/24] metolazone 5 mg tablet 5 mg PO DAILY 08/31/23 [History Confirmed 02/13/24] metoprolol tartrate 25 mg tablet 12.5 mg PO BID 08/31/23 [History Confirmed 02/13/24] vitamin B complex 1 cap PO DAILY 08/31/23 [History Confirmed 02/13/24] polyethylene glycol 3350 17 gram oral powder packet (HealthyLax) 17 g PO BID #0 ea 09/05/23 [Rx Confirmed 02/13/24] furosemide 40 mg tablet 40 mg PO DAILY #30 tabs 09/06/23 [Rx Confirmed 02/13/24] ranolazine 500 mg tablet,extended release,12 hr 500 mg PO Q12H 11/30/23 [History Confirmed 02/13/24] sertraline 100 mg tablet 100 mg PO Q24H 11/30/23 [History Confirmed 02/13/24] spironolactone 25 mg tablet 25 mg PO DAILY 11/30/23 [History Confirmed 02/13/24] ondansetron HCl 4 mg tablet 4 mg PO Q8HR PRN nausea and vomiting 5 days #15 tabs02/13/24 [Rx Confirmed 02/13/24] Exam Physical Exam Vital Signs: Temp Pulse Resp BP Pulse Ox O2 Del Method O2 Flow Rate 97.7 F 61 14 138/70 90 L Room Air 1 02/21/24 15:30 02/21/24 15:30 02/21/24 15:30 02/21/24 15:30 02/21/24 15:30 02/21/24 15:30 02/15/24 20:00 FiO2 21 02/15/24 22:35 Const General: cooperative, comfortable and no acute distress Nutritional Appearance: obese Orientation: alert, awake and oriented x3 HEENT Head: normal to inspection Neck Neck: normal visual inspection Chest Chest palpation & inspection: normal inspection of the chest Resp Effort & Inspection: normal respiratory effort Auscultation: clear to auscultation bilaterally Cardio Rate: regular rate Rhythm: regular rhythm Heart Sounds: S1 normal and S2 normal GI Inspection: large pannus and obesity Palpation: soft Skin General: no rashes or lesions noted Neuro General: patient alert, patient awake and patient oriented x3 Cognition: normal cognition Speech: speech normal Extrem General: edema Results - Cardiology Labs 02/20/24 05:50 02/21/24 06:30 Lab results: Comprehensive Metabolic Panel 02/21/24 Range/Units 06:30 Sodium 138 (136-145) mmol/L Potassium 3.6 (3.5-5.1) mmol/L Chloride 93 L (98-107) mmol/L Carbon Dioxide 35.9 H (21.0-31.0) mmol/L BUN 50 H (7-25) mg/dL Creatinine 1.19 (0.60-1.20) mg/dL Glucose 109 H (70-100) mg/dL Calcium 8.7 (8.6-10.3) mg/dL Intake and Output 02/21/24 02/21/24 02/21/24 07:59 15:59 23:59 Intake Total 200 / 200 Output Total 200 / 200 Balance 0 / 0 Intake: Oral 200 / 200 Output: Urine Amount (Catheter) 200 / 200 [place] 200 / 200 Other: # Incontinent Voids 1 # Incontinent Bowel Movements 1 Weight 172.8 kg Date of Last Bowel Movement 02/21/24 02/21/24 Patient Weight 02/21/24 23:59 Weight 172.8 kg Lab 02/13/24 21:56 PT 18.3 H INR 1.6 APTT 29.3 EKG Interpretations EKG EKG results cardiology: WNL and sinus rhythm A&P - Cardiology (1) Intractable nausea and vomiting: Code(s): R11.2 - Nausea with vomiting, unspecified (2) BMI 50.0-59.9, adult: Code(s): Z68.43 - Body mass index [BMI] 50.0-59.9, adult (3) Dehydration: Code(s): E86.0 - Dehydration (4) Inflammation: (5) Coronary angioplasty status: Code(s): Z98.61 - Coronary angioplasty status (6) Hypomagnesemia: Code(s): E83.42 - Hypomagnesemia (7) Hypokalemia: Code(s): E87.6 - Hypokalemia (8) NSVT (nonsustained ventricular tachycardia): Code(s): I47.29 - Other ventricular tachycardia Plan See above Documented By: Rui Benson DO 02/21/241801 Signed By: <Electronically signed by Rui Benson DO> 02/21/241816 [facility] Work Phone: 1(522) 482-327104-24-2024 Progress note Author Mauro Nelson [facility] February 21, 2024 11:52am Note Date/Time February 21, 2024 11: 52am [facility] [address] [place] [address] Nephrology Progress Note Signed Patient: Namrata Jack MR#: [id number] : 1955 Acct:[id number] Age/Sex: 68 / F Adm Date: 4 Loc: Room: [address] [place] [address] Type: ADM IN Attending Dr: Sawyer Dozier MD Copies to: ~ Date of Service: 02/21/2024 Subjective Subjective Narrative: Ms. Jack is a 68-year-old white female with PMH of CKD III, T2DM, diastolic heart failure with chronic edema on diuretics, mild aortic stenosis, CAD s/p 6 stents. Patient has baseline creatinine around 1.3 to 1.6 mg/dL over the last year with intermittent JOY related to diastolic CHF on diuretics. She did require Bumex drip during admission in April 2023 for volume overload. Patient was admitted on 02/12 with intractable nausea, vomiting and diarrhea that has been going on for the last 1 week. She had 2 ER visits with the same problem and she was prescribed Zofran during the previous visits however does not work for her and she has to come back to the ER. Patient had low-grade fever on admission 99.3 with peaked 100.4. Patient had generalized weakness and not ableto stand at home. Abdomen was diffusely tender. Patient had CT scan of the abdomen and pelvis without contrast on admission that was unremarkable. Urine analysis does not suggest UTI. COVID-19, flu and RSV were negative. Patient was started on IV fluid, 2 L/min oxygen and she was admitted for further evaluation. Creatinine admission was 1.5 mg/dL however creatinine continued to increase up to 3.37 mg/dL today despite IV hydration and holding amlodipine. 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 She is supposed to follow- up with renal clinic however she had multiple doctor appointments and shewas not able to do that. Creatinine has been variable between 1.5 to 1.8 mg/dL on diuretics. She had another hospitalization August 2023 with abdominal discomfort and vomiting and she was treated with Flagyl and Rocephin for what appears to be diverticulitis and she stated that she felt better. Interval history: Patient was seen and examined in her room. Denied nausea vomiting. No diarrhea. No shortness of breath. Continues to be on room air. Blood pressure has been well-controlled since resuming metoprolol and Norvasc She remains at baseline patient made 3 L urine output. Patient remains on Lasix40 mg oral twice daily White cell count is better. Currently on Invanz and Zyvox for lower extremity cellulitis Exam Physical Exam Vital Signs: Temp Pulse Resp BP Pulse Ox O2 Del Method O2 Flow Rate 97.7 F 60 14 124/72 93 L Room Air 1 02/21/24 07:59 02/21/24 07:59 02/21/24 07:59 02/21/24 07:59 02/21/24 07:59 02/21/24 07:59 02/15/24 20:00 FiO2 21 02/15/24 22:35 Narrative: General: No acute distress Head :atraumatic normocephalic Eyes: PERRLA. Neck: no JVD no bruit. Heart: S1-S2. RRR Respiratory: Clear to auscultation. No wheezing. No crackles Abdomen: Soft, positive bowel sounds,no tenderness. Neurology: Awake alert oriented x3. No focal deficits Extremity. No cyanosis. Both legs are wrapped up to the knees Skin: No skin rash Objective Intake and Output I&O: Intake & Output 02/18/24 02/19/24 02/20/24 02/21/24 23:59 23:59 23:59 23:59 Intake Total 1400 / 1400 1700 / 1700 100 / 100 200 / 200 Output Total 2700 / 2700 1800 / 1800 2600 / 2600 200 / 200 Balance -1300 / -1300 -100 / -100 -2500 / -2500 0 / 0 Weight 332 lb 10.841 oz 332 lb 7.313 oz 382 lb 0.977 oz 380 lb 15.34 oz Meds and Allergies Meds: Active Medications Acetaminophen (Acetaminophen 325 Mg Tablet) 650 mg PO Q4H PRN PRN Reason: Pain Scale 1 - 3 or fever Stop: 02/12/25 20:56 Hydrocodone Bitart/Acetaminophen (Hydrocodone/Acetaminophen 5-325 Mg Tablet) 1 tab PO Q4H PRN PRN Reason: Pain Scale 6 - 10 Last Admin: 02/21/24 09:56 Dose: 1 tab Amlodipine Besylate (Amlodipine 5 Mg Tablet) 5 mg PO DAILY [facility] Stop: 02/13/25 08:59 Last Admin: 02/21/24 09:56 Dose: 5 mg Ascorbic Acid (Ascorbic Acid 500 Mg Tablet) 1,000 mg PO DAILY [facility] Stop: 02/15/25 08:59 Last Admin: 02/21/24 09:53 Dose: 1,000 mg Aspirin (Aspirin 81 Mg Tablet.) 81 mg PO DAILY [facility] Stop: 02/13/25 08:59 Last Admin: 02/21/24 09:56 Dose: 81 mg Balsam Harriet/Altoona Oil (Balsam Buffalo/Altoona Oil Oint 60 Gm Tube) 1 applic TOPICAL TID [facility] Stop: 02/13/25 13:59 Last Admin: 02/21/24 10:03 Dose: 1 applic Clopidogrel Bisulfate (Clopidogrel Bisulfate 75 Mg Tablet) 75 mg PO DAILY [facility] Stop: 02/13/25 08:59 Last Admin: 02/21/24 09:57 Dose: 75 mg Dextrose (Dextrose 50% In Water 25 Gm/50 Ml Syringe) 0 gm IV-PUSH PRN PRN PRN Reason: Hypoglycemia Stop: 02/12/25 20:40 Diclofenac Sodium (Diclofenac Sodium 1% Gel 100 Gm Tube) 4 gm TOPICAL QID [facility] Stop: 02/12/25 21:59 Last Admin: 02/21/24 10:04 Dose: 4 gm Docusate Sodium (Docusate 100 Mg Capsule) 100 mg PO BID [facility] Stop: 02/16/25 20:59 Last Admin: 02/21/24 10:00 Dose: 100 mg Enoxaparin Sodium (Enoxaparin 40 Mg/0.4 Ml Syringe) 40 mg SUBCUT BID@1000,2200 [facility] Stop: 02/20/25 21:59 Folic Acid (Cyanocobalamin/Fa/Pyridoxine 1 Tab Tablet) 1 tab PO DAILY [facility] Stop: 02/15/25 08:59 Last Admin: 02/21/24 09:56 Dose: 1 tab Furosemide (Furosemide 40 Mg Tablet) 40 mg PO BID@0800,1600 [facility] Stop: 02/17/25 15:59 Last Admin: 02/21/24 09:57 Dose: 40 mg Gabapentin (Gabapentin 600 Mg Tablet) 600 mg PO BID [facility] Stop: 02/12/25 21:29 Last Admin: 02/13/24 22:29 Dose: 600 mg Gabapentin (Gabapentin 100 Mg Capsule) 200 mg PO BID [facility] Stop: 02/13/25 08:59 Last Admin: 02/21/24 09:57 Dose: 200 mg Glucose (Dextrose 40% Gel 15 Gm Tube) 0 gm PO PRN PRN PRN Reason: Hypoglycemia Stop: 02/12/25 20:40 Hydromorphone HCl (Hydromorphone 0.5 Mg/0.5 Ml Syringe) 0.5 mg IV-PUSH Q4H PRN PRN Reason: Pain Scale 6 - 10 Last Admin: 02/20/24 08:51 Dose: 0.5 mg Ertapenem (Invanz) 1 gm in 100 mls @ 200 mls/hr IV Q24H [facility] Last Admin: 02/21/24 11:42 Dose: 200 mls/hr Magnesium Sulfate (Magnesium Sulf 2gm-*Swfi*) 2 gm in 50 mls @ 25 mls/hr IV ONCE ONE Stop: 02/21/24 12:47 Insulin Aspart (Insulin Aspart 300 Units/3 Ml Insuln.Pen) 0 units SUBCUT TID.WM.HS [facility]; Protocol Stop: 02/12/25 21:59 Last Admin: 02/21/24 10:00 Dose: Not Given Insulin Glargine (Insulin Glargine 300 Units/3 Ml Insuln.Pen) 25 units SUBCUT BID [facility] Stop: 02/15/25 20:59 Last Admin: 02/21/24 10:02 Dose: 25 units Linezolid (Linezolid 600 Mg Tablet) 600 mg PO BID [facility] Stop: 02/24/24 20:59 Last Admin: 02/21/24 09:53 Dose: 600 mg Metoclopramide HCl (Metoclopramide 10 Mg/2 Ml Vial) 5 mg IV-PUSH Q6H PRN PRN Reason: Nausea/Vomiting Stop: 02/12/25 20:40 Metoprolol Tartrate (Metoprolol Tartrate 12.5 Mg Tablet) 12.5 mg PO BID [facility] Stop: 02/12/25 21:29 Last Admin: 02/21/24 09:56 Dose: 12.5 mg Oxybutynin Chloride (Oxybutynin Chloride 5 Mg Tablet) 5 mg PO BID [facility] Stop: 02/14/25 20:59 Last Admin: 02/21/24 09:57 Dose: 5 mg Potassium Chloride (Potassium Chloride Er 10 Meq Tablet.Er) 20 meq PO BID [facility] Stop: 02/20/25 20:59 Ranolazine (Ranolazine 500 Mg Tab.Er.12h) 500 mg PO Q12H [facility] Stop: 02/12/25 20:44 Last Admin: 02/21/24 09:56 Dose: 500 mg Sertraline HCl (Sertraline 100 Mg Tablet) 100 mg PO DAILY [facility] Stop: 02/13/25 08:59 Last Admin: 02/21/24 09:56 Dose: 100 mg Simethicone (Simethicone 80 Mg Tab.Chew) 80 mg PO TID.WM.HS PRN PRN Reason: Abdominal Distention Stop: 02/19/25 20:40 Last Admin: 02/20/24 22:00 Dose: 80 mg Sodium Chloride (Sodium Chloride 0.9 % 10 Ml Syringe) 0 ml IV-PUSH PRN PRN PRN Reason: Flush Stop: 02/12/25 17:17 Last Admin: 02/18/24 08:38 Dose: 10 ml Sodium Chloride (Sodium Chloride 0.9 % 10 Ml Syringe) 0 ml IV-PUSH PRN PRN PRN Reason: Flush Stop: 02/12/25 20:56 Last Admin: 02/16/24 15:07 Dose: 10 ml Vitamin D (Cholecalciferol 25 Mcg (1,000 Units) Tablet) 100 mcg PO DAILY [facility] Stop: 02/15/25 08:59 Last Admin: 02/21/24 09:54 Dose: 100 mcg Allergies Penicillins Allergy (Severe, Verified 02/13/24 17:20) Anaphylaxis Iodinated Contrast Media Allergy (Mild, Verified 02/13/24 17:20) Anaphylaxis Results - Nephrology Labs 02/20/24 05:50 02/21/24 06:30 Labs: 02/21/24 06:30 BUN 50 H Creatinine 1.19 Radiology Impressions Impressions - last 24 hours: Impressions Venous Duplex 02/19/24 11:57 IMPRESSION: NO EVIDENCE FOR DEEP VEIN THROMBOSIS OR PROXIMAL SUPERFICIAL THROMBOPHLEBITIS INTHE RIGHT OR LEFT LOWER EXTREMITY. Impression dictated by: Harmeet Jalloh M.D.02/20/2024 3:48 PM Dictation Location: [place] [address] Any impression(s) listed above is documentation that was entered by the reading physician into a diagnostic report(s) for Namrata Jack. I have reviewed the report(s) and am incorporating any findings in the treatment plan of this patient where applicable. A&P - Nephrology Assessment/Plan (1) Acute kidney injury: Assessment/Problem Details: Patient presented with JOY with progressive rise of serum creatinine in setting of low blood pressure, nausea, vomiting and diarrhea. Patient on IV fluid however serum creatinine still rising. Patient has no Garrett catheter however itwas reported that she has multiple voids. Although JOY could be prerenal related to nausea and vomiting, patient may possibly had ATN by the time of admission and the creatinine continues to increase. Clinically she is euvolemicto mildly hypervolemic with history of CHF. Chest x-ray on admission also showed cardiomegaly with mild congestion. * CT scan of the abdomen without contrast on admission showed no evidence of hydronephrosis * Urine analysis showed no bacteriuria or significant proteinuria. No casts. * Furosemide, metolazone and spironolactone are on hold on admission. * IV fluid was stopped on 02/14 for concern about volume overload. Urinary sodium is only 19 mmol/L, with edema and mild pulmonary congestion on chest x- ray suggestive of CHF. Patient was given a trial of furosemide with improvement of renal function * Amlodipine, metoprolol and Ranexa are on hold because of low blood pressure (2) CKD (chronic kidney disease) stage 3, GFR 30-59 ml/min: Assessment/Problem Details: Patient has CKD stage III related to diabetes and atherosclerotic renovascular disease. Baseline creatinine variable between 1.5 to 1.8 mg/dL. (3) Hyponatremia: Assessment/Problem Details: Sodium is lower than 130 in the setting of JOY, nausea and vomiting. She looks hypovolemic as well at this point (4) Leukocytosis: Assessment/Problem Details: Patient has leukocytosis with abdominal tenderness on admission. * On empirical treatment with Levaquin and Flagyl for colitis. Blood cultures are negative x 4 days. Stool for C. difficile is negative * Patient was evaluated by ID and linezolid was added to cover possible left lower extremity cellulitis (5) Intractable nausea and vomiting: Assessment/Problem Details: Patient presented with nausea and vomiting, workup still pending. GI profile was sent. Patient on Flagyl and levofloxacin (6) BMI 50.0-59.9, adult: Plan * Renal function continues to improve with diuretics suggestive that JOY is related to right-sided heart failure with renal congestion. * I will continue same diuretics doses with Lasix 40 mg twice daily since the patient continues to have edema. * Blood pressure improved with resuming home blood pressure medications. Will continue same doses of amlodipine and metoprolol Will continue to monitor blood pressure adjust medication as needed * Serum sodium level corrected. Will continue to monitor sodium level with Lasix. Keep output more than input * Patient is on ertapenem and Zyvox for lower extremities high risk. Wound care service following the patient for lower extremity wounds * Monitor daily intake, output and renal panel Renal team will continue to follow. Call if any question or concern Documented By: Mauro Nelson MD 02/21/24 1150 Signed By: <Electronically signed by Mauro Nelson MD> 02/21/24 1152 [facility] Work Phone: 1([phone]) 394-616104-24-2024 Progress note Author Sawyer Dozier [facility] February 21, 2024 10:53am Note Date/Time February 21, 2024 10: 53am [facility] [address] [place] [address] Hospitalist Progress Note Signed Patient: Namrata Jack MR#: [id number] : 1955 Acct:[id number] Age/Sex: 68 / F Adm Date: 04/16/2 4 Loc: Room: 4E1329-8 Type: ADM IN Attending Dr: Sawyer Dozier MD Copies to: ~ Date of Service: 02/21/2024 Subjective Subjective Narrative: Patient is seen and evaluated on the floor. She reports that she is feeling better today. She denies any nausea, vomiting, diarrhea. She continues to havediffuse abdominal pain predominantly in the lateral aspects. She also notes legsoreness due to the significant constant wrapping and unwrapping of Lisa wraps onher legs. She did have a bowel movement yesterday which was collected for culture. She did not attempt PT/OT yesterday due to weakness, but plans to attempt it today. She denies shortness of breath or chest pain. She had appropriate sleep last night and normal appetite. Exam Physical Exam Vital Signs: Temp Pulse Resp BP Pulse Ox O2 Del Method O2 Flow Rate 97.7 F 60 14 124/72 93 L Room Air 1 02/21/24 07:59 02/21/24 07:59 02/21/24 07:59 02/21/24 07:59 02/21/24 07:59 02/21/24 07:59 02/15/24 20:00 FiO2 21 02/15/24 22:35 Narrative: General: Patient is seen laying in bed this morning. She is acting appropriate and cooperative. Cardiac: Heart rate and rhythm regular without murmurs, rubs, or gallops. Pulmonary: Lungs clear to auscultation bilaterally without wheezes, rales, rhonchi. GI: Soft, nondistended, diffuse tenderness to palpation predominantly in the lateral aspects of her pannus. Bowel sounds x 4. Lower extremity: I inspected her lower extremities after the nurse opened up. Dressing. The blistering had faded away. Less erythema, induration and tenderness. Still quite extensive cellulitic involvement in both legs from the mid thigh down to the ankle. The most affected area is from the knee down to the ankle anteriorly, medially and laterally. Objective Lab Results 02/20/24 05:50 02/21/24 06:30 Meds Allergies and Active Meds Allergies Penicillins Allergy (Severe, Verified 02/13/24 17:20) Anaphylaxis Iodinated Contrast Media Allergy (Mild, Verified 02/13/24 17:20) Anaphylaxis Active Meds: Active Medications Generic Name Dose Route Start Last Admin Trade Name Freq PRN Reason Stop Dose Admin Acetaminophen 650 mg 02/13/24 20:57 Acetaminophen 325 Mg Tablet PO 02/12/25 20:56 Q4H PRN Pain Scale 1 - 3 or fever Hydrocodone Bitart/Acetaminophen 1 tab 02/14/24 00:20 02/21/24 02:26 Hydrocodone/Acetaminophen 5-325 Mg Tablet PO 1 tab Q4H PRN Administration Pain Scale 6 - 10 Amlodipine Besylate 5 mg 02/14/24 09:00 02/20/24 08:55 Amlodipine 5 Mg Tablet PO 02/13/25 08:59 5 mg DAILY [facility]ONY Administration Ascorbic Acid 1,000 mg 02/16/24 09:00 02/20/24 08:54 Ascorbic Acid 500 Mg Tablet PO 02/15/25 08:59 1,000 mg DAILY [facility]ON[facility] Administration Aspirin 81 mg 02/14/24 09:00 02/20/24 08:52 Aspirin 81 Mg Tablet. PO 02/13/25 08:59 81 mg DAILY [facility] Administration Balsam Harriet/Al[place] Oil 1 applic 02/14/24 14:00 02/20/24 22:00 Balsam Harriet/[place] Oil Oint 60 Gm Tube TOPICAL 02/13/25 13:59 1 applic TID [facility] Administration Clopidogrel Bisulfate 75 mg 02/14/24 09:00 02/20/24 08:55 Clopidogrel Bisulfate 75 Mg Tablet PO 02/13/25 08:59 75 mg DAILY [facility] Administration Dextrose 0 gm 02/13/24 20:41 Dextrose 50% In Water 25 Gm/50 Ml Syringe IV-PUSH 02/12/25 20:40 PRN PRN Hypoglycemia Diclofenac Sodium 4 gm 02/13/24 22:00 02/20/24 22:03 Diclofenac Sodium 1% Gel 100 Gm Tube TOPICAL 02/12/25 21:59 Not Given QID TONY Docusate Sodium 100 mg 02/17/24 21:00 02/20/24 20:17 Docusate 100 Mg Capsule PO 02/16/25 20:59 100 mg BID TONY Administration Folic Acid 1 tab 02/16/24 09:00 02/20/24 08:52 Cyanocobalamin/Fa/Pyridoxine 1 Tab Tablet PO 02/15/25 08:59 1 tab DAILY [facility] Administration Furosemide 40 mg 02/18/24 16:00 02/20/24 16:40 Furosemide 40 Mg Tablet PO 02/17/25 15:59 40 mg BID@0800,1600 [facility] Administration Gabapentin 600 mg 02/13/24 21:30 02/13/24 22:29 Gabapentin 600 Mg Tablet PO 02/12/25 21:29 600 mg BID [facility]ONY Administration Gabapentin 200 mg 02/14/24 09:00 02/20/24 20:17 Gabapentin 100 Mg Capsule PO 02/13/25 08:59 200 mg BID [facility] Administration Glucose 0 gm 02/13/24 20:41 Dextrose 40% Gel 15 Gm Tube PO 02/12/25 20:40 PRN PRN Hypoglycemia Heparin Sodium (Porcine) 5,000 unit 02/20/24 14:00 02/21/24 05:20 Heparin 5,000 Unit/Ml Vial SUBCUT 02/19/25 13:59 5,000 unit Q8HR TONY Administration Hydromorphone HCl 0.5 mg 02/19/24 11:50 02/20/24 08:51 Hydromorphone 0.5 Mg/0.5 Ml Syringe IV-PUSH 0.5 mg Q4H PRN Administration Pain Scale 6 - 10 Magnesium Sulfate 2 gm in 50 mls @ 25 mls/hr 02/13/24 20:57 02/16/24 00:46 Magnesium Sulf 2gm-*Swfi* IV 02/12/25 20:56 Infused DAILY PRN Infusion Magnesium Level < 1.5 Ertapenem 1 gm in 100 mls @ 200 mls/hr 02/19/24 11:30 02/20/24 13:49 Invanz IV 200 mls/hr Q24H TONY Administration Insulin Aspart 0 units 02/13/24 22:00 02/20/24 22:03 Insulin Aspart 300 Units/3 Ml Insuln.Pen SUBCUT 02/12/25 21:59 9 units TID.WM.HS TONY Administration Protocol Insulin Glargine 25 units 02/16/24 21:00 02/20/24 22:00 Insulin Glargine 300 Units/3 Ml Insuln.Pen SUBCUT 02/15/25 20:59 25 units BID TONY Administration Linezolid 600 mg 02/20/24 21:00 02/20/24 20:17 Linezolid 600 Mg Tablet PO 02/24/24 20:59 600 mg BID TONY Administration Metoclopramide HCl 5 mg 02/13/24 20:41 Metoclopramide 10 Mg/2 Ml Vial IV-PUSH 02/12/25 20:40 Q6H PRN Nausea/Vomiting Metoprolol Tartrate 12.5 mg 02/13/24 21:30 02/20/24 20:17 Metoprolol Tartrate 12.5 Mg Tablet PO 02/12/25 21:29 12.5 mg BID TONY Administration Oxybutynin Chloride 5 mg 02/15/24 21:00 02/20/24 20:17 Oxybutynin Chloride 5 Mg Tablet PO 02/14/25 20:59 5 mg BID TONY Administration Ranolazine 500 mg 02/13/24 20:45 02/20/24 20:17 Ranolazine 500 Mg Tab.Er.12h PO 02/12/25 20:44 500 mg Q12H TONY Administration Sertraline HCl 100 mg 02/14/24 09:00 02/20/24 08:53 Sertraline 100 Mg Tablet PO 02/13/25 08:59 100 mg DAILY TONY Administration Simethicone 80 mg 02/20/24 20:41 02/20/24 22:00 Simethicone 80 Mg Tab.Chew PO 02/19/25 20:40 80 mg TID.WM.HS PRN Administration Abdominal Distention Sodium Chloride 0 ml 02/13/24 17:18 02/18/24 08:38 Sodium Chloride 0.9 % 10 Ml Syringe IV-PUSH 02/12/25 17:17 10 ml PRN PRN Administration Flush Sodium Chloride 0 ml 02/13/24 20:57 02/16/24 15:07 Sodium Chloride 0.9 % 10 Ml Syringe IV-PUSH 02/12/25 20:56 10 ml PRN PRN Administration Flush Vitamin D 100 mcg 02/16/24 09:00 02/20/24 08:52 Cholecalciferol 25 Mcg (1,000 Units) Tablet PO 02/15/25 08:59 100 mcg DAILY TONY Administration A&P - Hospitalist Assessment/Plan (1) Intractable nausea and vomiting: (2) Diarrhea: (3) Dehydration: (4) Diabetic neuropathy: (5) Diabetic retinopathy: (6) Diabetes mellitus with hyperglycemia: (7) CAD (coronary artery disease): (8) Acute respiratory failure with hypoxia: (9) Fever: (10) Morbid obesity with BMI of 50.0-59.9, adult: (11) Pickwickian syndrome: (12) Chronic HFrEF (heart failure with reduced ejection fraction): (13) CKD (chronic kidney disease) stage 3, GFR 30-59 ml/min: (14) Morbid obesity: (15) GERD (gastroesophageal reflux disease): Plan Sepsis present on admission Continue Zyvox and ertapenem per ID Continue wound care. Defer further needed diagnostic and therapeutic intervention related to her infectious process to infectious disease team Episode of nonsustained V. tach. Patient is asymptomatic Potassium and magnesium are low. Potassium and magnesium supplementation Echocardiogram to exclude cardiomyopathy Avoid beta-maria esther due to borderline bradycardia heart rate of 60 Cardiac consultation. Acute on chronic kidney failure Volume overload, diastolic heart failure Appreciate nephrology input and recommendation. BUN improved from 56 to 50 Creatinine improved from 1.21 to 1.19 Continue 40mg Lasix BID per nephrology Hypertension, diabetes Continue to titrate the medication to achieve optimal control if possible Continue metoprolol and amlodipine Continue home diabetes regimen Functional impairment Continue PT OT. The plan to discharge to a skilled facility. CAD. No active angina. Continue dual antiplatelets treatment. Multiple other medical issues to be addressed in the outpatient setting. Documented By: Sawyer Dozier MD 02/21/24821 Signed By: <Electronically signed by Sawyer Dozier MD> 02/21/24 1050 [facility] Work Phone: [phone] 602-828804-24-2024 Progress note Author Deep Eubanks [facility] February 21, 2024 9:19am Note Date/Time February 21, 2024 9:1 8am [facility] [address] [place] [address] Infect. Disease Progress Note Signed Patient: Namrata Jack MR#: [id number] : 1955 Acct:[id number] Age/Sex: 68 / F Adm Date: 4 Loc: Room: [address] [place] [address] Type: ADM IN Attending Dr: Sawyer Dozier MD Copies to: ~ Date of Service: 02/21/2024 Subjective Interval history: Patient was in a recliner when I walked into the room. Her legs actually had the dressing taken down. States she is feeling better today which is encouraging based on how she has felt she has been doing over the past few days. Exam Physical Exam Vital Signs: Vital Signs Temp Pulse Resp BP Pulse Ox O2 Del Method 02/21/24 07:59 97.7 F 60 14 124/72 93 L Room Air 02/21/24 04:00 97.6 F 58 L 16 110/63 92 L Room Air 02/21/24 00:00 Room Air 02/21/24 00:00 97.6 F 56 L 20 140/70 95 Room Air 02/20/24 20:00 Room Air 02/20/24 20:00 97.7 F 73 17 159/76 H 95 Room Air 02/20/24 16:30 97.9 F 60 20 156/75 H 91 L Room Air 02/20/24 13:00 98.4 F 78 20 137/82 98 Room Air 02/20/24 09:43 Room Air Intake and Output 02/20/24 02/21/24 02/21/24 23:59 07:59 15:59 Intake Total 200 / 200 Output Total 900 / 2600 200 / 200 Balance -900 / -2600 0 / 0 Intake: Oral 200 / 200 Output: Urine Amount (Catheter) 900 / 2600 200 / 200 Purwick 900 / 2600 200 / 200 Other: # Incontinent Voids 2 1 # Incontinent Bowel Movements 1 1 Weight 380 lb 15.34 oz Date of Last Bowel Movement 02/20/24 02/21/24 Patient Weight 02/21/24 23:59 Weight 380 lb 15.34 oz Const General: comfortable Orientation: oriented x3 HEENT Head: normal to inspection Ears: hearing grossly normal bilaterally Mouth: oral mucosae normal Eyes General: appearance normal, both eyes and all related structures Neck Neck: normal visual inspection Chest Chest palpation & inspection: normal inspection of the chest Resp Effort & Inspection: normal respiratory effort Auscultation: clear to auscultation bilaterally Cardio Palpation: normal PMI Rate: regular rate Rhythm: regular rhythm GI Inspection: normal to inspection Palpation: soft and nontender Auscultation: normal bowel sounds Skin Other: Lower extremities basically with a dressing taken down. Compared to earlier this week clinically there is been much improvement to the edema as well as the ulcerations and bulla that had been present. Less intense erythema appreciated. Much less swelling noted. Neuro General: patient oriented x3 Extrem General: abnormal to inspection (see skin) Objective Labs CBC/BMP: CBC, BMP 02/21/24 06:30 Sodium 138 Potassium 3.6 Chloride 93 L Carbon Dioxide 35.9 H Anion Gap 12.7 BUN 50 H Creatinine 1.19 Calcium 8.7 Labs: 02/21/24 06:30 BUN 50 H Creatinine 1.19 Microbiology Microbiology: Microbiology - Results from entire visit 02/13/24 21:46 Blood - Left Arm Blood Culture - Final NO GROWTH 5 DAYS 02/13/24 21:56 Blood - Left Hand Blood Culture - Final NO GROWTH 5 DAYS 02/14/24 17:55 Straight Catheter Urine Culture - Final <9,000 colonies/ml mixed bacterial skin contaminants 2 Days Allergies and Medications Allergies and Active Meds Allergies Penicillins Allergy (Severe, Verified 02/13/24 17:20) Anaphylaxis Iodinated Contrast Media Allergy (Mild, Verified 02/13/24 17:20) Anaphylaxis Active Medications Acetaminophen (Acetaminophen 325 Mg Tablet) 650 mg PO Q4H PRN PRN Reason: Pain Scale 1 - 3 or fever Stop: 02/12/25 20:56 Hydrocodone Bitart/Acetaminophen (Hydrocodone/Acetaminophen 5-325 Mg Tablet) 1 tab PO Q4H PRN PRN Reason: Pain Scale 6 - 10 Last Admin: 02/21/24 02:26 Dose: 1 tab Amlodipine Besylate (Amlodipine 5 Mg Tablet) 5 mg PO DAILY TONY Stop: 02/13/25 08:59 Last Admin: 02/20/24 08:55 Dose: 5 mg Ascorbic Acid (Ascorbic Acid 500 Mg Tablet) 1,000 mg PO DAILY TONY Stop: 02/15/25 08:59 Last Admin: 02/20/24 08:54 Dose: 1,000 mg Aspirin (Aspirin 81 Mg Tablet.Dr) 81 mg PO DAILY TONY Stop: 02/13/25 08:59 Last Admin: 02/20/24 08:52 Dose: 81 mg Balsam [place]/Alto[place] Oil (Balsam [place] Oil Oint 60 Gm Tube) 1 applic TOPICAL TID TONY Stop: 02/13/25 13:59 Last Admin: 02/20/24 22:00 Dose: 1 applic Clopidogrel Bisulfate (Clopidogrel Bisulfate 75 Mg Tablet) 75 mg PO DAILY TONY Stop: 02/13/25 08:59 Last Admin: 02/20/24 08:55 Dose: 75 mg Dextrose (Dextrose 50% In Water 25 Gm/50 Ml Syringe) 0 gm IV-PUSH PRN PRN PRN Reason: Hypoglycemia Stop: 02/12/25 20:40 Diclofenac Sodium (Diclofenac Sodium 1% Gel 100 Gm Tube) 4 gm TOPICAL QID [facility] Stop: 02/12/25 21:59 Last Admin: 02/20/24 22:03 Dose: Not Given Docusate Sodium (Docusate 100 Mg Capsule) 100 mg PO BID [facility] Stop: 02/16/25 20:59 Last Admin: 02/20/24 20:17 Dose: 100 mg Folic Acid (Cyanocobalamin/Fa/Pyridoxine 1 Tab Tablet) 1 tab PO DAILY [facility] Stop: 02/15/25 08:59 Last Admin: 02/20/24 08:52 Dose: 1 tab Furosemide (Furosemide 40 Mg Tablet) 40 mg PO BID@0800,1600 [facility] Stop: 02/17/25 15:59 Last Admin: 02/20/24 16:40 Dose: 40 mg Gabapentin (Gabapentin 600 Mg Tablet) 600 mg PO BID [facility] Stop: 02/12/25 21:29 Last Admin: 02/13/24 22:29 Dose: 600 mg Gabapentin (Gabapentin 100 Mg Capsule) 200 mg PO BID [facility] Stop: 02/13/25 08:59 Last Admin: 02/20/24 20:17 Dose: 200 mg Glucose (Dextrose 40% Gel 15 Gm Tube) 0 gm PO PRN PRN PRN Reason: Hypoglycemia Stop: 02/12/25 20:40 Heparin Sodium (Porcine) (Heparin 5,000 Unit/Ml Vial) 5,000 unit SUBCUT Q8HR [facility] Stop: 02/19/25 13:59 Last Admin: 02/21/24 05:20 Dose: 5,000 unit Hydromorphone HCl (Hydromorphone 0.5 Mg/0.5 Ml Syringe) 0.5 mg IV-PUSH Q4H PRN PRN Reason: Pain Scale 6 - 10 Last Admin: 02/20/24 08:51 Dose: 0.5 mg Magnesium Sulfate (Magnesium Sulf 2gm-*Swfi*) 2 gm in 50 mls @ 25 mls/hr IV DAILY PRN PRN Reason: Magnesium Level < 1.5 Stop: 02/12/25 20:56 Last Infusion: 02/16/24 00:46 Dose: Infused Ertapenem (Invanz) 1 gm in 100 mls @ 200 mls/hr IV Q24H [facility] Last Admin: 02/20/24 13:49 Dose: 200 mls/hr Insulin Aspart (Insulin Aspart 300 Units/3 Ml Insuln.Pen) 0 units SUBCUT TID.WM.HS [facility]; Protocol Stop: 02/12/25 21:59 Last Admin: 02/20/24 22:03 Dose: 9 units Insulin Glargine (Insulin Glargine 300 Units/3 Ml Insuln.Pen) 25 units SUBCUT BID [facility] Stop: 02/15/25 20:59 Last Admin: 02/20/24 22:00 Dose: 25 units Linezolid (Linezolid 600 Mg Tablet) 600 mg PO BID [facility] Stop: 02/24/24 20:59 Last Admin: 02/20/24 20:17 Dose: 600 mg Metoclopramide HCl (Metoclopramide 10 Mg/2 Ml Vial) 5 mg IV-PUSH Q6H PRN PRN Reason: Nausea/Vomiting Stop: 02/12/25 20:40 Metoprolol Tartrate (Metoprolol Tartrate 12.5 Mg Tablet) 12.5 mg PO BID [facility] Stop: 02/12/25 21:29 Last Admin: 02/20/24 20:17 Dose: 12.5 mg Oxybutynin Chloride (Oxybutynin Chloride 5 Mg Tablet) 5 mg PO BID [facility] Stop: 02/14/25 20:59 Last Admin: 02/20/24 20:17 Dose: 5 mg Ranolazine (Ranolazine 500 Mg Tab.Er.12h) 500 mg PO Q12H [facility] Stop: 02/12/25 20:44 Last Admin: 02/20/24 20:17 Dose: 500 mg Sertraline HCl (Sertraline 100 Mg Tablet) 100 mg PO DAILY [facility] Stop: 02/13/25 08:59 Last Admin: 02/20/24 08:53 Dose: 100 mg Simethicone (Simethicone 80 Mg Tab.Chew) 80 mg PO TID.WM.HS PRN PRN Reason: Abdominal Distention Stop: 02/19/25 20:40 Last Admin: 02/20/24 22:00 Dose: 80 mg Sodium Chloride (Sodium Chloride 0.9 % 10 Ml Syringe) 0 ml IV-PUSH PRN PRN PRN Reason: Flush Stop: 02/12/25 17:17 Last Admin: 02/18/24 08:38 Dose: 10 ml Sodium Chloride (Sodium Chloride 0.9 % 10 Ml Syringe) 0 ml IV-PUSH PRN PRN PRN Reason: Flush Stop: 02/12/25 20:56 Last Admin: 02/16/24 15:07 Dose: 10 ml Vitamin D (Cholecalciferol 25 Mcg (1,000 Units) Tablet) 100 mcg PO DAILY [facility] Stop: 02/15/25 08:59 Last Admin: 02/20/24 08:52 Dose: 100 mcg A&P - Infectious Disease Assessment/Plan (1) Leukocytosis: (2) Intractable nausea and vomiting: (3) Diarrhea: (4) Venous stasis ulcers of both lower extremities: Plan Patient shows clinical improvement with regard to how her legs are doing as I was able to evaluate them today and compared to earlier this week they are looking a lot better. White count yesterday was trending down. No CBC done today. Patient endorses that she is feeling better which is the first time she has had that since being here. Based on antibiotics and her history feel that when discharged to a [facility]p facility that Linezolid can finish another 4days and that ertapenem can be transition to a third-generation oral cephalosporin to finish an additional 7 days. Documented By: Deep Eubanks MD 02/21/24913 Signed By: <Electronically signed by MD Deep Eubanks> 02/21/24918 [facility] Work Phone: [phone]) 646-996604-23-2024 Progress note Author Deep Eubanks [facility] February 20, 2024 3:36pm Note Date/Time February 20, 2024 3:3 6pm [facility] [address] [place] [address] Infect. Disease Progress Note Signed Patient: Namrata Jack MR#: [id number] : 1955 Acct:[id number] Age/Sex: 68 / F Adm Date: 4 Loc: Room: [address] [place] [address] Type: ADM IN Attending Dr: Sawyer Dozier MD Copies to: ~ Date of Service: 02/20/2024 Subjective Interval history: Patient states she feels ornery today but still very weak and did not participate in any physical therapy due to this. Patient did not however statesshe hurts all over like she did yesterday. Vital signs have remained stable. Invanz was added yesterday to the Linezolid that was already on board. Exam Physical Exam Vital Signs: Vital Signs Temp Pulse Resp BP Pulse Ox O2 Del Method 02/20/24 13:00 98.4 F 78 20 137/82 98 Room Air 02/20/24 09:43 Room Air 02/20/24 09:07 88 22 140/87 96 Room Air 02/20/24 04:00 97.6 F 63 17 146/72 H 95 Room Air 02/20/24 00:00 79 18 154/75 H 92 L Room Air 02/19/24 20:00 Room Air 02/19/24 20:00 97.6 F 79 17 148/69 H 95 Room Air 02/19/24 16:00 67 20 132/71 96 Room Air Intake and Output 02/19/24 02/20/24 02/20/24 23:59 07:59 15:59 Intake Total 1000 / 1700 Output Total 1300 / 1800 1700 / 1700 Balance -300 / -100 -1700 / -1700 Intake: IV 300 / 1000 Linezolid 600 mg 600 mg In 300 300 / 900 ml @ 300 mls/hr IV Q12H [facility] Rx# :[id number] Oral 700 / 700 Output: Urine Amount (Catheter) 1300 / 1800 1700 / 1700 Purwick 1300 / 1800 1700 / 1700 Other: # Incontinent Voids 1 # Incontinent Bowel Movements 2 Weight 382 lb 0.977 oz Date of Last Bowel Movement 02/19/24 02/19/24 Patient Weight 02/20/24 23:59 Weight 382 lb 0.977 oz Const General: comfortable Orientation: oriented x3 HEENT Head: normal to inspection Ears: hearing grossly normal bilaterally Mouth: oral mucosae normal Eyes General: appearance normal, both eyes and all related structures Neck Neck: normal visual inspection Chest Chest palpation & inspection: normal inspection of the chest Resp Effort & Inspection: normal respiratory effort Auscultation: clear to auscultation bilaterally Cardio Palpation: normal PMI Rate: regular rate Rhythm: regular rhythm GI Inspection: normal to inspection Palpation: soft and nontender Auscultation: normal bowel sounds Skin General: other (Compression dressings on the lower legs) Neuro General: patient oriented x3 Extrem General: abnormal to inspection (see skin) Objective Labs CBC/BMP: CBC, BMP 02/20/24 05:50 Corrected WBC 16.5 H Uncorrected WBC Count 16.5 H RBC 3.91 Hgb 12.0 Hct 36.1 Plt Count 311 Sodium 136 Potassium 3.7 Chloride 92 L Carbon Dioxide 35.0 H Anion Gap 12.7 BUN 56 H Creatinine 1.21 H Calcium 8.7 Labs: 02/20/24 05:50 BUN 56 H Creatinine 1.21 H Microbiology Microbiology: Microbiology - Results from entire visit 02/13/24 21:46 Blood - Left Arm Blood Culture - Final NO GROWTH 5 DAYS 02/13/24 21:56 Blood - Left Hand Blood Culture - Final NO GROWTH 5 DAYS 02/14/24 17:55 Straight Catheter Urine Culture - Final <9,000 colonies/ml mixed bacterial skin contaminants 2 Days Allergies and Medications Allergies and Active Meds Allergies Penicillins Allergy (Severe, Verified 02/13/24 17:20) Anaphylaxis Iodinated Contrast Media Allergy (Mild, Verified 02/13/24 17:20) Anaphylaxis Active Medications Acetaminophen (Acetaminophen 325 Mg Tablet) 650 mg PO Q4H PRN PRN Reason: Pain Scale 1 - 3 or fever Stop: 02/12/25 20:56 Hydrocodone Bitart/Acetaminophen (Hydrocodone/Acetaminophen 5-325 Mg Tablet) 1 tab PO Q4H PRN PRN Reason: Pain Scale 6 - 10 Last Admin: 02/20/24 09:02 Dose: 1 tab Amlodipine Besylate (Amlodipine 5 Mg Tablet) 5 mg PO DAILY [facility] Stop: 02/13/25 08:59 Last Admin: 02/20/24 08:55 Dose: 5 mg Ascorbic Acid (Ascorbic Acid 500 Mg Tablet) 1,000 mg PO DAILY [facility] Stop: 02/15/25 08:59 Last Admin: 02/20/24 08:54 Dose: 1,000 mg Aspirin (Aspirin 81 Mg Tablet.Dr) 81 mg PO DAILY [facility] Stop: 02/13/25 08:59 Last Admin: 02/20/24 08:52 Dose: 81 mg Balsam [place]/Altoona Oil (Balsam [place]riet/Al[place] Oil Oint 60 Gm Tube) 1 applic TOPICAL TID [facility] Stop: 02/13/25 13:59 Last Admin: 02/20/24 13:27 Dose: Not Given Clopidogrel Bisulfate (Clopidogrel Bisulfate 75 Mg Tablet) 75 mg PO DAILY [facility] Stop: 02/13/25 08:59 Last Admin: 02/20/24 08:55 Dose: 75 mg Dextrose (Dextrose 50% In Water 25 Gm/50 Ml Syringe) 0 gm IV-PUSH PRN PRN PRN Reason: Hypoglycemia Stop: 02/12/25 20:40 Diclofenac Sodium (Diclofenac Sodium 1% Gel 100 Gm Tube) 4 gm TOPICAL QID [facility] Stop: 02/12/25 21:59 Last Admin: 02/20/24 13:27 Dose: Not Given Docusate Sodium (Docusate 100 Mg Capsule) 100 mg PO BID [facility] Stop: 02/16/25 20:59 Last Admin: 02/20/24 08:53 Dose: 100 mg Folic Acid (Cyanocobalamin/Fa/Pyridoxine 1 Tab Tablet) 1 tab PO DAILY [facility] Stop: 02/15/25 08:59 Last Admin: 02/20/24 08:52 Dose: 1 tab Furosemide (Furosemide 40 Mg Tablet) 40 mg PO BID@0800,1600 [facility] Stop: 02/17/25 15:59 Last Admin: 02/20/24 08:54 Dose: 40 mg Gabapentin (Gabapentin 600 Mg Tablet) 600 mg PO BID [facility] Stop: 02/12/25 21:29 Last Admin: 02/13/24 22:29 Dose: 600 mg Gabapentin (Gabapentin 100 Mg Capsule) 200 mg PO BID [facility] Stop: 02/13/25 08:59 Last Admin: 02/20/24 08:54 Dose: 200 mg Glucose (Dextrose 40% Gel 15 Gm Tube) 0 gm PO PRN PRN PRN Reason: Hypoglycemia Stop: 02/12/25 20:40 Heparin Sodium (Porcine) (Heparin 5,000 Unit/Ml Vial) 5,000 unit SUBCUT Q8HR [facility] Stop: 02/19/25 13:59 Last Admin: 02/20/24 13:49 Dose: 5,000 unit Hydromorphone HCl (Hydromorphone 0.5 Mg/0.5 Ml Syringe) 0.5 mg IV-PUSH Q4H PRN PRN Reason: Pain Scale 6 - 10 Last Admin: 02/20/24 08:51 Dose: 0.5 mg Magnesium Sulfate (Magnesium Sulf 2gm-*Swfi*) 2 gm in 50 mls @ 25 mls/hr IV DAILY PRN PRN Reason: Magnesium Level < 1.5 Stop: 02/12/25 20:56 Last Infusion: 02/16/24 00:46 Dose: Infused Linezolid (Zyvox) 600 mg in 300 mls @ 300 mls/hr IV Q12H [facility] Last Admin: 02/20/24 12:00 Dose: 300 mls/hr Ertapenem (Invanz) 1 gm in 100 mls @ 200 mls/hr IV Q24H [facility] Last Admin: 02/20/24 13:49 Dose: 200 mls/hr Insulin Aspart (Insulin Aspart 300 Units/3 Ml Insuln.Pen) 0 units SUBCUT TID.WM.HS [facility]; Protocol Stop: 02/12/25 21:59 Last Admin: 02/20/24 12:00 Dose: 14 units Insulin Glargine (Insulin Glargine 300 Units/3 Ml Insuln.Pen) 25 units SUBCUT BID [facility] Stop: 02/15/25 20:59 Last Admin: 02/20/24 08:58 Dose: 25 units Metoclopramide HCl (Metoclopramide 10 Mg/2 Ml Vial) 5 mg IV-PUSH Q6H PRN PRN Reason: Nausea/Vomiting Stop: 02/12/25 20:40 Metoprolol Tartrate (Metoprolol Tartrate 12.5 Mg Tablet) 12.5 mg PO BID [facility] Stop: 02/12/25 21:29 Last Admin: 02/20/24 08:53 Dose: 12.5 mg Oxybutynin Chloride (Oxybutynin Chloride 5 Mg Tablet) 5 mg PO BID [facility] Stop: 02/14/25 20:59 Last Admin: 02/20/24 08:54 Dose: 5 mg Ranolazine (Ranolazine 500 Mg Tab.Er.12h) 500 mg PO Q12H [facility] Stop: 02/12/25 20:44 Last Admin: 02/20/24 08:52 Dose: 500 mg Sertraline HCl (Sertraline 100 Mg Tablet) 100 mg PO DAILY [facility] Stop: 02/13/25 08:59 Last Admin: 02/20/24 08:53 Dose: 100 mg Sodium Chloride (Sodium Chloride 0.9 % 10 Ml Syringe) 0 ml IV-PUSH PRN PRN PRN Reason: Flush Stop: 02/12/25 17:17 Last Admin: 02/18/24 08:38 Dose: 10 ml Sodium Chloride (Sodium Chloride 0.9 % 10 Ml Syringe) 0 ml IV-PUSH PRN PRN PRN Reason: Flush Stop: 02/12/25 20:56 Last Admin: 02/16/24 15:07 Dose: 10 ml Vitamin D (Cholecalciferol 25 Mcg (1,000 Units) Tablet) 100 mcg PO DAILY [facility] Stop: 02/15/25 08:59 Last Admin: 02/20/24 08:52 Dose: 100 mcg A&P - Infectious Disease Assessment/Plan (1) Leukocytosis: (2) Intractable nausea and vomiting: (3) Diarrhea: (4) Venous stasis ulcers of both lower extremities: Plan She has had 2 CT scans of her abdomen pelvis that did not find anything acute. White count finally trended down somewhat today. Her lower extremities were seen again yesterday and I was surprised to see all the bulla that had a formed as these were not present on admission. She had a significant amount of edema to which is getting better now that she is being diuresed. Blood cultures have remained negative. Wound care is being maximized. They just seen her today andredressed the lower extremities. Patient feels extremely weak and because of this she chose not to do any type of therapy today. Really has not been out of bed she states since coming into the hospital. Ultimately from an antibiotic standpoint she was broadly covered since arrival without significant bacterial etiology found. Lower extremity wounds however are of concern for these being source of infection so would favor finishing 7 to 10 days of antibiotics for this. She has been on Linezolid now for 5 days IV but feel we can switch this to oral. We can continue ertapenem as this was to started yesterday IV Documented By: Deep Eubanks MD 02/20/241531 Signed By: <Electronically signed by MD Deep Eubanks> 02/20/24 3196 [facility] Work Phone: [phone]) 427-867004-23-2024 Progress note Author Sawyer Dozier [facility] February 20, 2024 12:27pm Note Date/Time February 20, 2024 11: 45am [facility] [address] [place] [address] Hospitalist Progress Note Signed Patient: Namrata Jack MR#: [id number] : 1955 Acct:[id number] Age/Sex: 68 / F Adm Date: 4 Loc: 3T Room: [address] [place] [address] Type: ADM IN Attending Dr: Sawyer Dozier MD Copies to: ~ Date of Service: 02/20/2024 Subjective Subjective Narrative: Patient is seen and evaluated on the floor. She reports feeling much better today. She states that this is the [facility] She continues to endorse abdominal pain that remains unchanged. She denies nausea, vomiting, or diarrhea. Her last bowel movement was yesterday morning and was described as loose. She denies chest pain or shortness of breath. She was able to get some sleep last night and woke up around 3 or 4 AM which is normal for her. She states her appetite is all the way back. Exam Physical Exam Vital Signs: Temp Pulse Resp BP Pulse Ox O2 Del Method O2 Flow Rate 97.6 F 63 17 146/72 H 95 Room Air 1 02/20/24 04:00 02/20/24 04:00 02/20/24 04:00 02/20/24 04:00 02/20/24 04:00 02/20/24 04:00 02/15/24 20:00 FiO2 21 02/15/24 22:35 Narrative: General: Patient is seen laying in bed this morning. She is acting appropriate and cooperative. Cardiac: Heart rate and rhythm regular without murmurs, rubs, or gallops. Pulmonary: Lungs clear to auscultation bilaterally without wheezes, rales, rhonchi. GI: Soft, nondistended, diffuse tenderness to palpation predominantly in the lateral aspects of her pannus. Bowel sounds x 4. Lower extremity: Wrapped in Lisa wrap. Erythematous change in 8 duration noted on the anterior superior aspect of the left leg. Seems unchanged from yesterday. Objective Lab Results 02/20/24 05:50 02/20/24 05:50 Microbiology Results Microbiology 02/13/24 21:46 Blood - Left Arm Blood Culture - Final NO GROWTH 5 DAYS Meds Allergies and Active Meds Allergies Penicillins Allergy (Severe, Verified 02/13/24 17:20) Anaphylaxis Iodinated Contrast Media Allergy (Mild, Verified 02/13/24 17:20) Anaphylaxis Active Meds: Active Medications Generic Name Dose Route Start Last Admin Trade Name Ellie PRN Reason Stop Dose Admin Acetaminophen 650 mg 02/13/24 20:57 Acetaminophen 325 Mg Tablet PO 02/12/25 20:56 Q4H PRN Pain Scale 1 - 3 or fever Hydrocodone Bitart/Acetaminophen 1 tab 02/14/24 00:20 02/19/24 22:48 Hydrocodone/Acetaminophen 5-325 Mg Tablet PO 1 tab Q4H PRN Administration Pain Scale 6 - 10 Amlodipine Besylate 5 mg 02/14/24 09:00 02/19/24 09:53 Amlodipine 5 Mg Tablet PO 02/13/25 08:59 5 mg DAILY TONY Administration Ascorbic Acid 1,000 mg 02/16/24 09:00 02/19/24 09:52 Ascorbic Acid 500 Mg Tablet PO 02/15/25 08:59 1,000 mg DAILY TONY Administration Aspirin 81 mg 02/14/24 09:00 02/19/24 09:53 Aspirin 81 Mg Tablet.Dr PO 02/13/25 08:59 81 mg DAILY TONY Administration Balsam Harriet/Altoona Oil 1 applic 02/14/24 14:00 02/19/24 22:47 Balsam [place]riet/[place] Oil Oint 60 Gm Tube TOPICAL 02/13/25 13:59 1 applic TID TONY Administration Clopidogrel Bisulfate 75 mg 02/14/24 09:00 02/19/24 09:53 Clopidogrel Bisulfate 75 Mg Tablet PO 02/13/25 08:59 75 mg DAILY TONY Administration Dextrose 0 gm 02/13/24 20:41 Dextrose 50% In Water 25 Gm/50 Ml Syringe IV-PUSH 02/12/25 20:40 PRN PRN Hypoglycemia Diclofenac Sodium 4 gm 02/13/24 22:00 02/19/24 22:53 Diclofenac Sodium 1% Gel 100 Gm Tube TOPICAL 02/12/25 21:59 Not Given QID TONY Docusate Sodium 100 mg 02/17/24 21:00 02/19/24 22:45 Docusate 100 Mg Capsule PO 02/16/25 20:59 100 mg BID TONY Administration Folic Acid 1 tab 02/16/24 09:00 02/19/24 09:53 Cyanocobalamin/Fa/Pyridoxine 1 Tab Tablet PO 02/15/25 08:59 1 tab DAILY TONY Administration Furosemide 40 mg 02/18/24 16:00 02/19/24 17:28 Furosemide 40 Mg Tablet PO 02/17/25 15:59 40 mg BID@0800,1600 TONY Administration Gabapentin 600 mg 02/13/24 21:30 02/13/24 22:29 Gabapentin 600 Mg Tablet PO 02/12/25 21:29 600 mg BID TONY Administration Gabapentin 200 mg 02/14/24 09:00 02/19/24 22:45 Gabapentin 100 Mg Capsule PO 02/13/25 08:59 200 mg BID TONY Administration Glucose 0 gm 02/13/24 20:41 Dextrose 40% Gel 15 Gm Tube PO 02/12/25 20:40 PRN PRN Hypoglycemia Heparin Sodium (Porcine) 5,000 unit 02/14/24 21:00 02/19/24 22:46 Heparin 5,000 Unit/Ml Vial SUBCUT 02/13/25 20:59 5,000 unit Q12HR TONY Administration Hydromorphone HCl 0.5 mg 02/19/24 11:50 02/19/24 12:07 Hydromorphone 0.5 Mg/0.5 Ml Syringe IV-PUSH 0.5 mg Q4H PRN Administration Pain Scale 6 - 10 Magnesium Sulfate 2 gm in 50 mls @ 25 mls/hr 02/13/24 20:57 02/16/24 00:46 Magnesium Sulf 2gm-*Swfi* IV 02/12/25 20:56 Infused DAILY PRN Infusion Magnesium Level < 1.5 Linezolid 600 mg in 300 mls @ 300 mls/hr 02/15/24 11:30 02/19/24 22:50 Zyvox IV 300 mls/hr Q12H TONY Administration Ertapenem 1 gm in 100 mls @ 200 mls/hr 02/19/24 11:30 02/19/24 14:35 Invanz IV 200 mls/hr Q24H TONY Administration Insulin Aspart 0 units 02/13/24 22:00 02/19/24 22:47 Insulin Aspart 300 Units/3 Ml Insuln.Pen SUBCUT 02/12/25 21:59 5 units TID.WM.HS TONY Administration Protocol Insulin Glargine 25 units 02/16/24 21:00 02/19/24 22:46 Insulin Glargine 300 Units/3 Ml Insuln.Pen SUBCUT 02/15/25 20:59 25 units BID TONY Administration Metoclopramide HCl 5 mg 02/13/24 20:41 Metoclopramide 10 Mg/2 Ml Vial IV-PUSH 02/12/25 20:40 Q6H PRN Nausea/Vomiting Metoprolol Tartrate 12.5 mg 02/13/24 21:30 02/19/24 22:47 Metoprolol Tartrate 12.5 Mg Tablet PO 02/12/25 21:29 12.5 mg BID TONY Administration Oxybutynin Chloride 5 mg 02/15/24 21:00 02/19/24 22:47 Oxybutynin Chloride 5 Mg Tablet PO 02/14/25 20:59 5 mg BID TONY Administration Ranolazine 500 mg 02/13/24 20:45 02/15/24 09:11 Ranolazine 500 Mg Tab.Er.12h PO 02/12/25 20:44 500 mg Q12H TONY Administration Sertraline HCl 100 mg 02/14/24 09:00 02/19/24 09:52 Sertraline 100 Mg Tablet PO 02/13/25 08:59 100 mg DAILY TONY Administration Sodium Chloride 0 ml 02/13/24 17:18 02/18/24 08:38 Sodium Chloride 0.9 % 10 Ml Syringe IV-PUSH 02/12/25 17:17 10 ml PRN PRN Administration Flush Sodium Chloride 0 ml 02/13/24 20:57 02/16/24 15:07 Sodium Chloride 0.9 % 10 Ml Syringe IV-PUSH 02/12/25 20:56 10 ml PRN PRN Administration Flush Vitamin D 100 mcg 02/16/24 09:00 02/19/24 09:52 Cholecalciferol 25 Mcg (1,000 Units) Tablet PO 02/15/25 08:59 100 mcg DAILY TONY Administration A&P - Hospitalist Assessment/Plan (1) Intractable nausea and vomiting: (2) Diarrhea: (3) Dehydration: (4) Diabetic neuropathy: (5) Diabetic retinopathy: (6) Diabetes mellitus with hyperglycemia: (7) CAD (coronary artery disease): (8) Acute respiratory failure with hypoxia: (9) Fever: (10) Morbid obesity with BMI of 50.0-59.9, adult: (11) Pickwickian syndrome: (12) Chronic HFrEF (heart failure with reduced ejection fraction): (13) CKD (chronic kidney disease) stage 3, GFR 30-59 ml/min: (14) Morbid obesity: (15) GERD (gastroesophageal reflux disease): Plan Sepsis present on admission Continue Zyvox and ertapenem per ID WBC count decreased from 19.6 to 16.5 Defer further needed diagnostic and therapeutic intervention related to her infectious process to infectious disease team Acute on chronic kidney failure Volume overload, diastolic heart failure Appreciate nephrology input and recommendation. BUN improved from 66 to 56 Creatinine improved from 1.43 to 1.21 Continue 40mg Lasix BID per nephrology Hypertension, diabetes Continue to titrate the medication to achieve optimal control if possible Patient resumed on metoprolol and amlodipine yesterday Continue home diabetes regimen Functional impairment Continue PT OT. The plan to discharge to a skilled facility. CAD. No active angina. Continue dual antiplatelets treatment. Multiple other medical issues to be addressed in the outpatient setting. Documented By: Sawyer Dozier MD 02/20/24 0845 Signed By: <Electronically signed by Sawyer Dozier MD> 02/20/[address] [place] [address] Work Phone: [phone] Progress note Author Mauro Nelson [facility] February 20, 2024 11:03am Note Date/Time February 20, 2024 11: 03am [facility] [address] [place] [address] Nephrology Progress Note Signed Patient: Namrata Jack MR#: [id number] : 1955 Acct:[id number] Age/Sex: 68 / F Adm Date: 4 Loc: Room: [address] [place] [address] Type: ADM IN Attending Dr: Sawyer Dozier MD Copies to: ~ Date of Service: 02/20/2024 Subjective Subjective Narrative: Ms. Jack is a 68-year-old white female with PMH of CKD III, T2DM, diastolic heart failure with chronic edema on diuretics, mild aortic stenosis, CAD s/p 6 stents. Patient has baseline creatinine around 1.3 to 1.6 mg/dL over the last year with intermittent JOY related to diastolic CHF on diuretics. She did require Bumex drip during admission in April 2023 for volume overload. Patient was admitted on 02/12 with intractable nausea, vomiting and diarrhea that has been going on for the last 1 week. She had 2 ER visits with the same problem and she was prescribed Zofran during the previous visits however does not work for her and she has to come back to the ER. Patient had low-grade fever on admission 99.3 with peaked 100.4. Patient had generalized weakness and not ableto stand at home. Abdomen was diffusely tender. Patient had CT scan of the abdomen and pelvis without contrast on admission that was unremarkable. Urine analysis does not suggest UTI. COVID-19, flu and RSV were negative. Patient was started on IV fluid, 2 L/min oxygen and she was admitted for further evaluation. Creatinine admission was 1.5 mg/dL however creatinine continued to increase up to 3.37 mg/dL today despite IV hydration and holding amlodipine. 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 She is supposed to follow- up with renal clinic however she had multiple doctor appointments and shewas not able to do that. Creatinine has been variable between 1.5 to 1.8 mg/dL on diuretics. She had another hospitalization August 2023 with abdominal discomfort and vomiting and she was treated with Flagyl and Rocephin for what appears to be diverticulitis and she stated that she felt better. Interval history: Patient was seen and examined in her room. Denied nausea vomiting. No diarrhea. No shortness of breath. Continues to be on room air. Blood pressureis better resuming Norvasc and metoprolol. Kidney function is better today. Serum creatinine down to 1.2mg deciliter. Patient made 3 L urine output. Patient remains on Lasix 40 mg twice daily White cell count is better. Currently on Invanz for lower extremity cellulitis Exam Physical Exam Vital Signs: Temp Pulse Resp BP Pulse Ox O2 Del Method O2 Flow Rate 97.6 F 88 22 140/87 96 Room Air 1 02/20/24 04:00 02/20/24 09:07 02/20/24 09:07 02/20/24 09:07 02/20/24 09:07 02/20/24 09:43 02/15/24 20:00 FiO2 21 02/15/24 22:35 Narrative: General: No acute distress Head :atraumatic normocephalic Eyes: PERRLA. Neck: no JVD no bruit. Heart: S1-S2. RRR Respiratory: Clear to auscultation. No wheezing. No crackles Abdomen: Soft, positive bowel sounds,no tenderness. Neurology: Awake alert oriented x3. No focal deficits Extremity. No cyanosis. Bilateral lower extremity edema +1 with wounds Skin: No skin rash Objective Intake and Output I&O: Intake & Output 02/17/24 02/18/24 02/19/24 02/20/24 23:59 23:59 23:59 23:59 Intake Total 1550 / 1550 1400 / 1400 1300 / 1300 Output Total 2225 / 2225 2700 / 2700 1800 / 1800 1700 / 1700 Balance -675 / -675 -1300 / -1300 -500 / -500 -1700 / -1700 Weight 332 lb 7.313 oz 332 lb 10.841 oz 332 lb 7.313 oz 382 lb 0.977 oz Meds and Allergies Meds: Active Medications Acetaminophen (Acetaminophen 325 Mg Tablet) 650 mg PO Q4H PRN PRN Reason: Pain Scale 1 - 3 or fever Stop: 02/12/25 20:56 Hydrocodone Bitart/Acetaminophen (Hydrocodone/Acetaminophen 5-325 Mg Tablet) 1 tab PO Q4H PRN PRN Reason: Pain Scale 6 - 10 Last Admin: 02/20/24 09:02 Dose: 1 tab Amlodipine Besylate (Amlodipine 5 Mg Tablet) 5 mg PO DAILY [facility] Stop: 02/13/25 08:59 Last Admin: 02/20/24 08:55 Dose: 5 mg Ascorbic Acid (Ascorbic Acid 500 Mg Tablet) 1,000 mg PO DAILY [facility] Stop: 02/15/25 08:59 Last Admin: 02/20/24 08:54 Dose: 1,000 mg Aspirin (Aspirin 81 Mg Tablet.) 81 mg PO DAILY [facility] Stop: 02/13/25 08:59 Last Admin: 02/20/24 08:52 Dose: 81 mg Balsam [place]/Altoona Oil (Balsam [place] Oil Oint 60 Gm Tube) 1 applic TOPICAL TID [facility] Stop: 02/13/25 13:59 Last Admin: 02/20/24 08:55 Dose: 1 applic Clopidogrel Bisulfate (Clopidogrel Bisulfate 75 Mg Tablet) 75 mg PO DAILY [facility] Stop: 02/13/25 08:59 Last Admin: 02/20/24 08:55 Dose: 75 mg Dextrose (Dextrose 50% In Water 25 Gm/50 Ml Syringe) 0 gm IV-PUSH PRN PRN PRN Reason: Hypoglycemia Stop: 02/12/25 20:40 Diclofenac Sodium (Diclofenac Sodium 1% Gel 100 Gm Tube) 4 gm TOPICAL QID TONY Stop: 02/12/25 21:59 Last Admin: 02/20/24 09:01 Dose: 4 gm Docusate Sodium (Docusate 100 Mg Capsule) 100 mg PO BID TONY Stop: 02/16/25 20:59 Last Admin: 02/20/24 08:53 Dose: 100 mg Folic Acid (Cyanocobalamin/Fa/Pyridoxine 1 Tab Tablet) 1 tab PO DAILY [facility] Stop: 02/15/25 08:59 Last Admin: 02/20/24 08:52 Dose: 1 tab Furosemide (Furosemide 40 Mg Tablet) 40 mg PO BID@0800,1600 [facility] Stop: 02/17/25 15:59 Last Admin: 02/20/24 08:54 Dose: 40 mg Gabapentin (Gabapentin 600 Mg Tablet) 600 mg PO BID [facility] Stop: 02/12/25 21:29 Last Admin: 02/13/24 22:29 Dose: 600 mg Gabapentin (Gabapentin 100 Mg Capsule) 200 mg PO BID [facility] Stop: 02/13/25 08:59 Last Admin: 02/20/24 08:54 Dose: 200 mg Glucose (Dextrose 40% Gel 15 Gm Tube) 0 gm PO PRN PRN PRN Reason: Hypoglycemia Stop: 02/12/25 20:40 Heparin Sodium (Porcine) (Heparin 5,000 Unit/Ml Vial) 5,000 unit SUBCUT Q12HR [facility] Stop: 02/13/25 20:59 Last Admin: 02/20/24 09:10 Dose: 5,000 unit Hydromorphone HCl (Hydromorphone 0.5 Mg/0.5 Ml Syringe) 0.5 mg IV-PUSH Q4H PRN PRN Reason: Pain Scale 6 - 10 Last Admin: 02/20/24 08:51 Dose: 0.5 mg Magnesium Sulfate (Magnesium Sulf 2gm-*Swfi*) 2 gm in 50 mls @ 25 mls/hr IV DAILY PRN PRN Reason: Magnesium Level < 1.5 Stop: 02/12/25 20:56 Last Infusion: 02/16/24 00:46 Dose: Infused Linezolid (Zyvox) 600 mg in 300 mls @ 300 mls/hr IV Q12H [facility] Last Admin: 02/19/24 22:50 Dose: 300 mls/hr Ertapenem (Invanz) 1 gm in 100 mls @ 200 mls/hr IV Q24H [facility] Last Admin: 02/19/24 14:35 Dose: 200 mls/hr Insulin Aspart (Insulin Aspart 300 Units/3 Ml Insuln.Pen) 0 units SUBCUT TID.WM.HS [facility]; Protocol Stop: 02/12/25 21:59 Last Admin: 02/20/24 08:58 Dose: 5 units Insulin Glargine (Insulin Glargine 300 Units/3 Ml Insuln.Pen) 25 units SUBCUT BID [facility] Stop: 02/15/25 20:59 Last Admin: 02/20/24 08:58 Dose: 25 units Metoclopramide HCl (Metoclopramide 10 Mg/2 Ml Vial) 5 mg IV-PUSH Q6H PRN PRN Reason: Nausea/Vomiting Stop: 02/12/25 20:40 Metoprolol Tartrate (Metoprolol Tartrate 12.5 Mg Tablet) 12.5 mg PO BID [facility] Stop: 02/12/25 21:29 Last Admin: 02/20/24 08:53 Dose: 12.5 mg Oxybutynin Chloride (Oxybutynin Chloride 5 Mg Tablet) 5 mg PO BID [facility] Stop: 02/14/25 20:59 Last Admin: 02/20/24 08:54 Dose: 5 mg Ranolazine (Ranolazine 500 Mg Tab.Er.12h) 500 mg PO Q12H [facility] Stop: 02/12/25 20:44 Last Admin: 02/20/24 08:52 Dose: 500 mg Sertraline HCl (Sertraline 100 Mg Tablet) 100 mg PO DAILY [facility] Stop: 02/13/25 08:59 Last Admin: 02/20/24 08:53 Dose: 100 mg Sodium Chloride (Sodium Chloride 0.9 % 10 Ml Syringe) 0 ml IV-PUSH PRN PRN PRN Reason: Flush Stop: 02/12/25 17:17 Last Admin: 02/18/24 08:38 Dose: 10 ml Sodium Chloride (Sodium Chloride 0.9 % 10 Ml Syringe) 0 ml IV-PUSH PRN PRN PRN Reason: Flush Stop: 02/12/25 20:56 Last Admin: 02/16/24 15:07 Dose: 10 ml Vitamin D (Cholecalciferol 25 Mcg (1,000 Units) Tablet) 100 mcg PO DAILY [facility] Stop: 02/15/25 08:59 Last Admin: 02/20/24 08:52 Dose: 100 mcg Allergies Penicillins Allergy (Severe, Verified 02/13/24 17:20) Anaphylaxis Iodinated Contrast Media Allergy (Mild, Verified 02/13/24 17:20) Anaphylaxis Results - Nephrology Labs 02/20/24 05:50 02/20/24 05:50 Labs: 02/20/24 05:50 BUN 56 H Creatinine 1.21 H Albumin 2.6 L Radiology Impressions Impressions - last 24 hours: Any impression(s) listed above is documentation that was entered by the reading physician into a diagnostic report(s) for Namrata Jack. I have reviewed the report(s) and am incorporating any findings in the treatment plan of this patient where applicable. A&P - Nephrology Assessment/Plan (1) Acute kidney injury: Assessment/Problem Details: Patient presented with JOY with progressive rise of serum creatinine in setting of low blood pressure, nausea, vomiting and diarrhea. Patient on IV fluid however serum creatinine still rising. Patient has no Garrett catheter however itwas reported that she has multiple voids. Although JOY could be prerenal related to nausea and vomiting, patient may possibly had ATN by the time of admission and the creatinine continues to increase. Clinically she is euvolemicto mildly hypervolemic with history of CHF. Chest x-ray on admission also showed cardiomegaly with mild congestion. * CT scan of the abdomen without contrast on admission showed no evidence of hydronephrosis * Urine analysis showed no bacteriuria or significant proteinuria. No casts. * Furosemide, metolazone and spironolactone are on hold on admission. * IV fluid was stopped on 02/14 for concern about volume overload. Urinary sodium is only 19 mmol/L, with edema and mild pulmonary congestion on chest x- ray suggestive of CHF. Patient was given a trial of furosemide with improvement of renal function * Amlodipine, metoprolol and Ranexa are on hold because of low blood pressure (2) CKD (chronic kidney disease) stage 3, GFR 30-59 ml/min: Assessment/Problem Details: Patient has CKD stage III related to diabetes and atherosclerotic renovascular disease. Baseline creatinine variable between 1.5 to 1.8 mg/dL. (3) Hyponatremia: Assessment/Problem Details: Sodium is lower than 130 in the setting of JOY, nausea and vomiting. She looks hypovolemic as well at this point (4) Leukocytosis: Assessment/Problem Details: Patient has leukocytosis with abdominal tenderness on admission. * On empirical treatment with Levaquin and Flagyl for colitis. Blood cultures are negative x 4 days. Stool for C. difficile is negative * Patient was evaluated by ID and linezolid was added to cover possible left lower extremity cellulitis (5) Intractable nausea and vomiting: Assessment/Problem Details: Patient presented with nausea and vomiting, workup still pending. GI profile was sent. Patient on Flagyl and levofloxacin (6) BMI 50.0-59.9, adult: Plan * Renal functions continue to improve with diuretics suggestive that JOY is related to right-sided heart failure with renal congestion. * I will continue same diuretics doses with Lasix 40 mg twice daily since the patient continues to have anasarca. * Blood pressure improved with resuming home blood pressure medications. Will continue same doses of amlodipine and metoprolol Will continue to monitor blood pressure adjust medication as needed * Serum sodium level corrected. Will continue to monitor sodium level with Lasix. Keep output more than input * Patient is on ertapenem for lower extremities high risk. Wound care service following the patient for lower extremity wounds * Monitor daily intake, output and renal panel Renal team will continue to follow. Call if any question or concern Documented By: Mauro Nelson MD 02/20/24 1100 Signed By: <Electronically signed by Mauro Nelson MD> 02/20/24 0[address] [facility] Work Phone: 1(791) 943-100604-22-2024 Progress note Author Sawyer Dozier [facility] February 19, 2024 11:54am Note Date/Time February 19, 2024 11: 52am [facility] [address] [place] [address] Hospitalist Progress Note Signed Patient: Namrata Jack MR#: [id number] : 1955 Acct:[id number] Age/Sex: 68 / F Adm Date: 4 Loc: 3T Room: [address] [place] [address] Type: ADM IN Attending Dr: Sawyer Dozier MD Copies to: ~ Date of Service: 02/19/2024 Subjective Subjective Narrative: Today the patient is getting turned in bed by nursing staff and reapplying a pure wick. The patient has a number of blisters on her skin which I think is from gravity pulling edema downward. None of them look infected. Looking at all of her skinher skin is actually really good condition with minimal fungal disease, but justlots of chronic changes from her squeezing herself into a lift chair at home that is too small for her. The patient reports that she is feeling better overall. Nausea is gone. Abdominal pain seems to be getting better. She has not moved her bowels in a couple days. She did start taking MiraLAX again. The patient says that she refused BiPAP for the last 3 nights. This is because it caused her to have dry mouth and dry nose. I did encourage her to use this because I think it would reduce lower extremity edema but she adamantly refuses to wear BiPAP. Case management is in the process of finding a [facility] facility for her. 02/18: The aforementioned paragraph was documented by my colleague yesterday. Persistent lower extremities pain and discomfort no chest pain palpitation. Resolution of abdominal pain. No nausea or vomiting. No diarrhea. Exam Physical Exam Vital Signs: Temp Pulse Resp BP Pulse Ox O2 Del Method O2 Flow Rate 97.8 F 78 18 144/74 H 96 Room Air 1 02/19/24 04:00 02/19/24 09:00 02/19/24 09:00 02/19/24 09:00 02/19/24 09:00 02/19/24 09:00 02/15/24 20:00 FiO2 21 02/15/24 22:35 Narrative: [pt is awake and alert. oriented to place, time and person, morbidly obese HEENT: [place] conjunctiva and NL buccal mucosa Neck: Supple, no tenderness Endocrine: No Thyromegaly. Vascular: No JVD or carotid bruit. Lymphatic: No cervical lymphadenopathy. Chest: CTA no DTP. Heart RRR, no extra sound or murmur. Abd: Soft, no tenderness, no rebound and no rigidity. Increase abd girth therefore clinically I could not exclude the possibility of intra abd mass or organomegaly. LE: Lateral lower extremities erythema, induration, tenderness, ulceration involving both legs from the knee down to the ankle with some extension to the dorsal foot. Neuro: A A O. Nl speech, comprehension and attention. Nl and symetrical motor and tone examination through out. []] Objective Lab Results 02/19/24 06:22 02/19/24 06:22 Microbiology Results Microbiology 02/13/24 21:56 Blood - Left Hand Blood Culture - Final NO GROWTH 5 DAYS 02/13/24 21:46 Blood - Left Arm Blood Culture - Preliminary No Growth 4 Days Meds Allergies and Active Meds Allergies Penicillins Allergy (Severe, Verified 02/13/24 17:20) Anaphylaxis Iodinated Contrast Media Allergy (Mild, Verified 02/13/24 17:20) Anaphylaxis Active Meds: Active Medications Generic Name Dose Route Start Last Admin Trade Name Freq PRN Reason Stop Dose Admin Acetaminophen 650 mg 02/13/24 20:57 Acetaminophen 325 Mg Tablet PO 02/12/25 20:56 Q4H PRN Pain Scale 1 - 3 or fever Hydrocodone Bitart/Acetaminophen 1 tab 02/14/24 00:20 02/19/24 05:32 Hydrocodone/Acetaminophen 5-325 Mg Tablet PO 1 tab Q4H PRN Administration Pain Scale 6 - 10 Amlodipine Besylate 5 mg 02/14/24 09:00 02/19/24 09:53 Amlodipine 5 Mg Tablet PO 02/13/25 08:59 5 mg DAILY [facility] Administration Ascorbic Acid 1,000 mg 02/16/24 09:00 02/19/24 09:52 Ascorbic Acid 500 Mg Tablet PO 02/15/25 08:59 1,000 mg DAILY [facility] Administration Aspirin 81 mg 02/14/24 09:00 02/19/24 09:53 Aspirin 81 Mg Tablet. PO 02/13/25 08:59 81 mg DAILY [facility] Administration Balsam [place] Oil 1 applic 02/14/24 14:00 02/19/24 09:54 Balsam [place] Oil Oint 60 Gm Tube TOPICAL 02/13/25 13:59 1 applic TID [facility] Administration Clopidogrel Bisulfate 75 mg 02/14/24 09:00 02/19/24 09:53 Clopidogrel Bisulfate 75 Mg Tablet PO 02/13/25 08:59 75 mg DAILY [facility] Administration Dextrose 0 gm 02/13/24 20:41 Dextrose 50% In Water 25 Gm/50 Ml Syringe IV-PUSH 02/12/25 20:40 PRN PRN Hypoglycemia Diclofenac Sodium 4 gm 02/13/24 22:00 02/19/24 09:54 Diclofenac Sodium 1% Gel 100 Gm Tube TOPICAL 02/12/25 21:59 2 gm QID [facility] Administration Docusate Sodium 100 mg 02/17/24 21:00 02/19/24 09:53 Docusate 100 Mg Capsule PO 02/16/25 20:59 100 mg BID [facility]ONY Administration Folic Acid 1 tab 02/16/24 09:00 02/19/24 09:53 Cyanocobalamin/Fa/Pyridoxine 1 Tab Tablet PO 02/15/25 08:59 1 tab DAILY [facility] Administration Furosemide 40 mg 02/18/24 16:00 02/19/24 09:53 Furosemide 40 Mg Tablet PO 02/17/25 15:59 40 mg BID@0800,1600 [facility] Administration Gabapentin 600 mg 02/13/24 21:30 02/13/24 22:29 Gabapentin 600 Mg Tablet PO 02/12/25 21:29 600 mg BID [facility] Administration Gabapentin 200 mg 02/14/24 09:00 02/19/24 09:53 Gabapentin 100 Mg Capsule PO 02/13/25 08:59 200 mg BID [facility] Administration Glucose 0 gm 02/13/24 20:41 Dextrose 40% Gel 15 Gm Tube PO 02/12/25 20:40 PRN PRN Hypoglycemia Heparin Sodium (Porcine) 5,000 unit 02/14/24 21:00 02/19/24 09:53 Heparin 5,000 Unit/Ml Vial SUBCUT 02/13/25 20:59 5,000 unit Q12HR [facility] Administration Magnesium Sulfate 2 gm in 50 mls @ 25 mls/hr 02/13/24 20:57 02/16/24 00:46 Magnesium Sulf 2gm-*Swfi* IV 02/12/25 20:56 Infused DAILY PRN Infusion Magnesium Level < 1.5 Linezolid 600 mg in 300 mls @ 300 mls/hr 02/15/24 11:30 02/19/24 00:00 Zyvox IV 300 mls/hr Q12H [facility] Administration Ertapenem 1 gm in 100 mls @ 200 mls/hr 02/19/24 11:30 Invanz IV Q24H [facility] Insulin Aspart 0 units 02/13/24 22:00 02/19/24 09:58 Insulin Aspart 300 Units/3 Ml Insuln.Pen SUBCUT 02/12/25 21:59 9 units TID.WM.HS [facility] Administration Protocol Insulin Glargine 25 units 02/16/24 21:00 02/19/24 09:54 Insulin Glargine 300 Units/3 Ml Insuln.Pen SUBCUT 02/15/25 20:59 25 units BID [facility] Administration Metoclopramide HCl 5 mg 02/13/24 20:41 Metoclopramide 10 Mg/2 Ml Vial IV-PUSH 02/12/25 20:40 Q6H PRN Nausea/Vomiting Metoprolol Tartrate 12.5 mg 02/13/24 21:30 02/19/24 09:53 Metoprolol Tartrate 12.5 Mg Tablet PO 02/12/25 21:29 12.5 mg BID TONY Administration Oxybutynin Chloride 5 mg 02/15/24 21:00 02/19/24 09:53 Oxybutynin Chloride 5 Mg Tablet PO 02/14/25 20:59 5 mg BID TONY Administration Polyethylene Glycol 17 gm 02/16/24 21:00 02/19/24 09:51 Polyethylene Glycol 3350 17 Gm Powd.Pack PO 02/15/25 20:59 17 gm BID TONY Administration Ranolazine 500 mg 02/13/24 20:45 02/15/24 09:11 Ranolazine 500 Mg Tab.Er.12h PO 02/12/25 20:44 500 mg Q12H TONY Administration Sertraline HCl 100 mg 02/14/24 09:00 02/19/24 09:52 Sertraline 100 Mg Tablet PO 02/13/25 08:59 100 mg DAILY TONY Administration Sodium Chloride 0 ml 02/13/24 17:18 02/18/24 08:38 Sodium Chloride 0.9 % 10 Ml Syringe IV-PUSH 02/12/25 17:17 10 ml PRN PRN Administration Flush Sodium Chloride 0 ml 02/13/24 20:57 02/16/24 15:07 Sodium Chloride 0.9 % 10 Ml Syringe IV-PUSH 02/12/25 20:56 10 ml PRN PRN Administration Flush Vitamin D 100 mcg 02/16/24 09:00 02/19/24 09:52 Cholecalciferol 25 Mcg (1,000 Units) Tablet PO 02/15/25 08:59 100 mcg DAILY TONY Administration A&P - Hospitalist Assessment/Plan (1) Intractable nausea and vomiting: (2) Diarrhea: (3) Dehydration: (4) Diabetic neuropathy: (5) Diabetic retinopathy: (6) Diabetes mellitus with hyperglycemia: (7) CAD (coronary artery disease): (8) Acute respiratory failure with hypoxia: (9) Fever: (10) Morbid obesity with BMI of 50.0-59.9, adult: (11) Pickwickian syndrome: (12) Chronic HFrEF (heart failure with reduced ejection fraction): (13) CKD (chronic kidney disease) stage 3, GFR 30-59 ml/min: (14) Morbid obesity: (15) GERD (gastroesophageal reflux disease): Plan Assessment: Presentation emergency room with intractable large-volume nausea and vomiting and diarrhea for 2 different ER visits. May have had a foodborne illness causing intractable nausea vomiting and diarrhea at home for 2 days. Development of acute kidney, due to dehydration at home and hypotension at home, with acute tubular necrosis. Cellulitis of both lower extremities. Chronic lower extremity edema. Patient with acute hypoxic respiratory failure in the emergency room requiring 2 L of oxygen by nasal cannula, and she has never needed supplemental oxygen before. BMI 58.9, high suspicion of obstructive sleep apnea and obesity hypoventilation syndrome. Chronic problems: Chronic heart failure with reduced ejection fraction, Diabetes mellitus type 2, with A1c right now at 7.4. Chronic kidney disease stage III. GERD. Chronic edema to both lower extremities. Second CT scan, done yesterday on 02/17/2024 due to the patient having left flank pain just like kidney stones shows no acute findings. She does have a tiny left pleural effusion. Plan: Appreciate ID and Nephrology involvement. Advance regular diet as tolerated. Continue insulin scale level 3 regimen. Discontinued IV Levaquin and IV Flagyl per ID on 02/15/24 Continue IV linezolid per infectious disease. Re initiation of diuretics with furosemide per nephrology Continue DVT prophylaxis with Heparin 5000 units SC BID Hold home blood pressure medications such as amlodipine and metoprolol 02/18: The aforementioned paragraph was documented by my colleague yesterday. This is my first day taking care of this patient. I discussed her case with Dr. Eubanks. Sepsis present on admission Patient had been on Zyvox Dr. Eubanks is adding Ertapenem. Defer further needed diagnostic and therapeutic intervention related to her infectious process to infectious disease team Acute on chronic kidney failure Volume overload, diastolic heart failure Appreciate nephrology input and recommendation. Patient is on diuretics. Hypertension, diabetes Continue to titrate the medication to achieve optimal control if possible Multiple other medical issues to be addressed in the outpatient setting. Documented By: Sawyer Dozier MD 02/19/24 1151 Signed By: <Electronically signed by Sawyer Dozier MD> 02/19/24 1154 [facility] Work Phone: 1([phone]) 474-274204-22-2024 Progress note Author Mauro Victoriaolamide [facility] February 19, 2024 11:41am Note Date/Time February 19, 2024 11: 41am [facility] [address] [place] [address] Nephrology Progress Note Signed Patient: Namrata Jack MR#: [id number] : 1955 Acct:[id number] Age/Sex: 68 / F Adm Date: 4 Loc: Room: [address] [place] [address] Type: ADM IN Attending Dr: Sawyer Dozier MD Copies to: ~ Date of Service: 02/19/2024 Subjective Subjective Narrative: Ms. Jack is a 68-year-old white female with PMH of CKD III, T2DM, diastolic heart failure with chronic edema on diuretics, mild aortic stenosis, CAD s/p 6 stents. Patient has baseline creatinine around 1.3 to 1.6 mg/dL over the last year with intermittent JOY related to diastolic CHF on diuretics. She did require Bumex drip during admission in April 2023 for volume overload. Patient was admitted on 02/12 with intractable nausea, vomiting and diarrhea that has been going on for the last 1 week. She had 2 ER visits with the same problem and she was prescribed Zofran during the previous visits however does not work for her and she has to come back to the ER. Patient had low-grade fever on admission 99.3 with peaked 100.4. Patient had generalized weakness and not ableto stand at home. Abdomen was diffusely tender. Patient had CT scan of the abdomen and pelvis without contrast on admission that was unremarkable. Urine analysis does not suggest UTI. COVID-19, flu and RSV were negative. Patient was started on IV fluid, 2 L/min oxygen and she was admitted for further evaluation. Creatinine admission was 1.5 mg/dL however creatinine continued to increase up to 3.37 mg/dL today despite IV hydration and holding amlodipine. 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 She is supposed to follow- up with renal clinic however she had multiple doctor appointments and shewas not able to do that. Creatinine has been variable between 1.5 to 1.8 mg/dL on diuretics. She had another hospitalization August 2023 with abdominal discomfort and vomiting and she was treated with Flagyl and Rocephin for what appears to be diverticulitis and she stated that she felt better. Interval history: Patient was seen and examined in her room. Denied nausea vomiting. No diarrhea. No shortness of breath. Continues to be on room air. Noted high blood pressure this morning. Home Norvasc and metoprolol remain on hold Kidney function is better today. Serum creatinine down to 1.4 mg deciliter. Patient made 2.2 L urine output P. Exam Physical Exam Vital Signs: Temp Pulse Resp BP Pulse Ox O2 Del Method O2 Flow Rate 97.8 F 78 18 144/74 H 96 Room Air 1 02/19/24 04:00 02/19/24 09:00 02/19/24 09:00 02/19/24 09:00 02/19/24 09:00 02/19/24 09:00 02/15/24 20:00 FiO2 21 02/15/24 22:35 Narrative: General: No acute distress Head :atraumatic normocephalic Eyes: PERRLA. Neck: no JVD no bruit. Heart: S1-S2. RRR Respiratory: Clear to auscultation. No wheezing. No crackles Abdomen: Soft, positive bowel sounds,no tenderness. Neurology: Awake alert oriented x3. No focal deficits Extremity. No cyanosis. Bilateral lower extremity edema +1 with wounds Skin: No skin rash Objective Intake and Output I&O: Intake & Output 02/16/24 02/17/24 02/18/24 02/19/24 23:59 23:59 23:59 23:59 Intake Total 1900 / 1900 1550 / 1550 1400 / 1400 Output Total 2225 / 2225 2700 / 2700 500 / 500 Balance 1900 / 1900 -675 / -675 -1300 / -1300 -500 / -500 Weight 332 lb 7.313 oz 332 lb 7.313 oz 332 lb 10.841 oz 332 lb 7.313 oz Meds and Allergies Meds: Active Medications Acetaminophen (Acetaminophen 325 Mg Tablet) 650 mg PO Q4H PRN PRN Reason: Pain Scale 1 - 3 or fever Stop: 02/12/25 20:56 Hydrocodone Bitart/Acetaminophen (Hydrocodone/Acetaminophen 5-325 Mg Tablet) 1 tab PO Q4H PRN PRN Reason: Pain Scale 6 - 10 Last Admin: 02/19/24 05:32 Dose: 1 tab Amlodipine Besylate (Amlodipine 5 Mg Tablet) 5 mg PO DAILY [facility] Stop: 02/13/25 08:59 Last Admin: 02/19/24 09:53 Dose: 5 mg Ascorbic Acid (Ascorbic Acid 500 Mg Tablet) 1,000 mg PO DAILY [facility] Stop: 02/15/25 08:59 Last Admin: 02/19/24 09:52 Dose: 1,000 mg Aspirin (Aspirin 81 Mg Tablet.Dr) 81 mg PO DAILY [facility] Stop: 02/13/25 08:59 Last Admin: 02/19/24 09:53 Dose: 81 mg Balsam Harriet/Altoona Oil (Balsam Buffalo/Al[place]ona Oil Oint 60 Gm Tube) 1 applic TOPICAL TID [facility] Stop: 02/13/25 13:59 Last Admin: 02/19/24 09:54 Dose: 1 applic Clopidogrel Bisulfate (Clopidogrel Bisulfate 75 Mg Tablet) 75 mg PO DAILY [facility] Stop: 02/13/25 08:59 Last Admin: 02/19/24 09:53 Dose: 75 mg Dextrose (Dextrose 50% In Water 25 Gm/50 Ml Syringe) 0 gm IV-PUSH PRN PRN PRN Reason: Hypoglycemia Stop: 02/12/25 20:40 Diclofenac Sodium (Diclofenac Sodium 1% Gel 100 Gm Tube) 4 gm TOPICAL QID [facility] Stop: 02/12/25 21:59 Last Admin: 02/19/24 09:54 Dose: 2 gm Docusate Sodium (Docusate 100 Mg Capsule) 100 mg PO BID [facility] Stop: 02/16/25 20:59 Last Admin: 02/19/24 09:53 Dose: 100 mg Folic Acid (Cyanocobalamin/Fa/Pyridoxine 1 Tab Tablet) 1 tab PO DAILY [facility] Stop: 02/15/25 08:59 Last Admin: 02/19/24 09:53 Dose: 1 tab Furosemide (Furosemide 40 Mg Tablet) 40 mg PO BID@0800,1600 [facility] Stop: 02/17/25 15:59 Last Admin: 02/19/24 09:53 Dose: 40 mg Gabapentin (Gabapentin 600 Mg Tablet) 600 mg PO BID [facility] Stop: 02/12/25 21:29 Last Admin: 02/13/24 22:29 Dose: 600 mg Gabapentin (Gabapentin 100 Mg Capsule) 200 mg PO BID [facility] Stop: 02/13/25 08:59 Last Admin: 02/19/24 09:53 Dose: 200 mg Glucose (Dextrose 40% Gel 15 Gm Tube) 0 gm PO PRN PRN PRN Reason: Hypoglycemia Stop: 02/12/25 20:40 Heparin Sodium (Porcine) (Heparin 5,000 Unit/Ml Vial) 5,000 unit SUBCUT Q12HR [facility] Stop: 02/13/25 20:59 Last Admin: 02/19/24 09:53 Dose: 5,000 unit Magnesium Sulfate (Magnesium Sulf 2gm-*Swfi*) 2 gm in 50 mls @ 25 mls/hr IV DAILY PRN PRN Reason: Magnesium Level < 1.5 Stop: 02/12/25 20:56 Last Infusion: 02/16/24 00:46 Dose: Infused Linezolid (Zyvox) 600 mg in 300 mls @ 300 mls/hr IV Q12H [facility] Last Admin: 02/19/24 00:00 Dose: 300 mls/hr Ertapenem (Invanz) 1 gm in 100 mls @ 200 mls/hr IV Q24H [facility] Insulin Aspart (Insulin Aspart 300 Units/3 Ml Insuln.Pen) 0 units SUBCUT TID.[facility]; Protocol Stop: 02/12/25 21:59 Last Admin: 02/19/24 09:58 Dose: 9 units Insulin Glargine (Insulin Glargine 300 Units/3 Ml Insuln.Pen) 25 units SUBCUT BID TONY Stop: 02/15/25 20:59 Last Admin: 02/19/24 09:54 Dose: 25 units Metoclopramide HCl (Metoclopramide 10 Mg/2 Ml Vial) 5 mg IV-PUSH Q6H PRN PRN Reason: Nausea/Vomiting Stop: 02/12/25 20:40 Metoprolol Tartrate (Metoprolol Tartrate 12.5 Mg Tablet) 12.5 mg PO BID TONY Stop: 02/12/25 21:29 Last Admin: 02/19/24 09:53 Dose: 12.5 mg Oxybutynin Chloride (Oxybutynin Chloride 5 Mg Tablet) 5 mg PO BID TONY Stop: 02/14/25 20:59 Last Admin: 02/19/24 09:53 Dose: 5 mg Polyethylene Glycol (Polyethylene Glycol 3350 17 Gm Powd.Pack) 17 gm PO BID TONY Stop: 02/15/25 20:59 Last Admin: 02/19/24 09:51 Dose: 17 gm Ranolazine (Ranolazine 500 Mg Tab.Er.12h) 500 mg PO Q12H [facility]ONY Stop: 02/12/25 20:44 Last Admin: 02/15/24 09:11 Dose: 500 mg Sertraline HCl (Sertraline 100 Mg Tablet) 100 mg PO DAILY [facility] Stop: 02/13/25 08:59 Last Admin: 02/19/24 09:52 Dose: 100 mg Sodium Chloride (Sodium Chloride 0.9 % 10 Ml Syringe) 0 ml IV-PUSH PRN PRN PRN Reason: Flush Stop: 02/12/25 17:17 Last Admin: 02/18/24 08:38 Dose: 10 ml Sodium Chloride (Sodium Chloride 0.9 % 10 Ml Syringe) 0 ml IV-PUSH PRN PRN PRN Reason: Flush Stop: 02/12/25 20:56 Last Admin: 02/16/24 15:07 Dose: 10 ml Vitamin D (Cholecalciferol 25 Mcg (1,000 Units) Tablet) 100 mcg PO DAILY [facility] Stop: 02/15/25 08:59 Last Admin: 02/19/24 09:52 Dose: 100 mcg Allergies Penicillins Allergy (Severe, Verified 02/13/24 17:20) Anaphylaxis Iodinated Contrast Media Allergy (Mild, Verified 02/13/24 17:20) Anaphylaxis Results - Nephrology Labs 02/19/24 06:22 02/19/24 06:22 Labs: 02/19/24 06:22 BUN 66 H Creatinine 1.43 H D Radiology Impressions Impressions - last 24 hours: Any impression(s) listed above is documentation that was entered by the reading physician into a diagnostic report(s) for Namrata Jack. I have reviewed the report(s) and am incorporating any findings in the treatment plan of this patient where applicable. A&P - Nephrology Assessment/Plan (1) Acute kidney injury: Assessment/Problem Details: Patient presented with JOY with progressive rise of serum creatinine in setting of low blood pressure, nausea, vomiting and diarrhea. Patient on IV fluid however serum creatinine still rising. Patient has no Garrett catheter however itwas reported that she has multiple voids. Although JOY could be prerenal related to nausea and vomiting, patient may possibly had ATN by the time of admission and the creatinine continues to increase. Clinically she is euvolemicto mildly hypervolemic with history of CHF. Chest x-ray on admission also showed cardiomegaly with mild congestion. * CT scan of the abdomen without contrast on admission showed no evidence of hydronephrosis * Urine analysis showed no bacteriuria or significant proteinuria. No casts. * Furosemide, metolazone and spironolactone are on hold on admission. * IV fluid was stopped on 02/14 for concern about volume overload. Urinary sodium is only 19 mmol/L, with edema and mild pulmonary congestion on chest x- ray suggestive of CHF. Patient was given a trial of furosemide with improvement of renal function * Amlodipine, metoprolol and Ranexa are on hold because of low blood pressure (2) CKD (chronic kidney disease) stage 3, GFR 30-59 ml/min: Assessment/Problem Details: Patient has CKD stage III related to diabetes and atherosclerotic renovascular disease. Baseline creatinine variable between 1.5 to 1.8 mg/dL. (3) Hyponatremia: Assessment/Problem Details: Sodium is lower than 130 in the setting of JOY, nausea and vomiting. She looks hypovolemic as well at this point (4) Leukocytosis: Assessment/Problem Details: Patient has leukocytosis with abdominal tenderness on admission. * On empirical treatment with Levaquin and Flagyl for colitis. Blood cultures are negative x 4 days. Stool for C. difficile is negative * Patient was evaluated by ID and linezolid was added to cover possible left lower extremity cellulitis (5) Intractable nausea and vomiting: Assessment/Problem Details: Patient presented with nausea and vomiting, workup still pending. GI profile was sent. Patient on Flagyl and levofloxacin (6) BMI 50.0-59.9, adult: Plan * Renal functions continue to improve with diuretics suggestive that JOY is related to right-sided heart failure with renal congestion. Blood pressure did improve with diuretics and holding blood pressure medications. * I will continue same diuretics doses with Lasix 40 mg twice daily since the patient continues to have anasarca. * I will resume home amlodipine and metoprolol due to elevated blood pressure. Will continue to monitor blood pressure adjust medication as needed * Serum sodium level corrected. Will continue to monitor sodium level with Lasix. Keep output more than input * Patient is on ertapenem for lower extremities high risk. Wound care service following the patient for lower extremity wounds * Monitor daily intake, output and renal panel Renal team will continue to follow. Call if any question or concern Documented By: Mauro Nelson MD 02/19/24 4109 Signed By: <Electronically signed by Mauro Nelson MD> 02/19/24 1141 [facility] Work Phone: 1(115) 865-146704-22-2024 Progress note Author Deep Eubanks [facility] February 19, 2024 11:30am Note Date/Time February 19, 2024 11: 30am [facility] [address] [place] [address] Infect. Disease Progress Note Signed Patient: Namrata Jack MR#: [id number] : 1955 Acct:[id number] Age/Sex: 68 / F Adm Date: 4 Loc: Room: [address] [place] [address] Type: ADM IN Attending Dr: Sawyer Dozier MD Copies to: ~ Date of Service: 02/19/2024 Subjective Interval history: Patient continues to endorse that she hurts all over. Patient states she had loose bowel movements this morning. Stool for C. difficile and gastrointestinalprofile still pending from the as uncollected. Patient just had her lower extremities unwrapped that have significant bolus that have deflated with ulcerations. Patient states these hurt. Exam Physical Exam Vital Signs: Temp Pulse Resp BP Pulse Ox O2 Del Method O2 Flow Rate 97.8 F 78 18 144/74 H 96 Room Air 1 02/19/24 04:00 02/19/24 09:00 02/19/24 09:00 02/19/24 09:00 02/19/24 09:00 02/19/24 09:00 02/15/24 20:00 FiO2 21 02/15/24 22:35 Const General: uncomfortable (uncomforatable) Orientation: oriented x3 HEENT Head: normal to inspection Ears: hearing grossly normal bilaterally Mouth: oral mucosae normal Eyes General: appearance normal, both eyes and all related structures Neck Neck: normal visual inspection Chest Chest palpation & inspection: normal inspection of the chest Resp Effort & Inspection: normal respiratory effort Auscultation: clear to auscultation bilaterally Cardio Palpation: normal PMI Rate: regular rate Rhythm: regular rhythm GI Inspection: normal to inspection Palpation: soft and tender (Still has discomfort when you press lightly all overher abdomen) Auscultation: normal bowel sounds Skin General: other (Lower extremities are worse compared to when I saw them) Other: bulla melanie le deflated. ulcers noted. stasis changes. dark erythema Extrem General: abnormal to inspection (see skin) Objective Labs CBC/BMP: CBC, BMP 02/19/24 06:22 Corrected WBC 19.6 H Uncorrected WBC Count 19.6 H RBC 3.81 Hgb 11.8 Hct 35.2 Plt Count 288 Sodium 132 L Potassium 3.7 Chloride 92 L Carbon Dioxide 32.0 H Anion Gap 11.7 BUN 66 H Creatinine 1.43 H D Calcium 9.2 Labs: 02/19/24 06:22 BUN 66 H Creatinine 1.43 H D Microbiology Microbiology: Microbiology - Results from entire visit 02/13/24 21:56 Blood - Left Hand Blood Culture - Final NO GROWTH 5 DAYS 02/13/24 21:46 Blood - Left Arm Blood Culture - Preliminary No Growth 4 Days 02/14/24 17:55 Straight Catheter Urine Culture - Final <9,000 colonies/ml mixed bacterial skin contaminants 2 Days Allergies and Medications Allergies and Active Meds Allergies Penicillins Allergy (Severe, Verified 02/13/24 17:20) Anaphylaxis Iodinated Contrast Media Allergy (Mild, Verified 02/13/24 17:20) Anaphylaxis Active Medications Acetaminophen (Acetaminophen 325 Mg Tablet) 650 mg PO Q4H PRN PRN Reason: Pain Scale 1 - 3 or fever Stop: 02/12/25 20:56 Hydrocodone Bitart/Acetaminophen (Hydrocodone/Acetaminophen 5-325 Mg Tablet) 1 tab PO Q4H PRN PRN Reason: Pain Scale 6 - 10 Last Admin: 02/19/24 05:32 Dose: 1 tab Amlodipine Besylate (Amlodipine 5 Mg Tablet) 5 mg PO DAILY [facility] Stop: 02/13/25 08:59 Last Admin: 02/19/24 09:53 Dose: 5 mg Ascorbic Acid (Ascorbic Acid 500 Mg Tablet) 1,000 mg PO DAILY [facility] Stop: 02/15/25 08:59 Last Admin: 02/19/24 09:52 Dose: 1,000 mg Aspirin (Aspirin 81 Mg Tablet.Dr) 81 mg PO DAILY [facility] Stop: 02/13/25 08:59 Last Admin: 02/19/24 09:53 Dose: 81 mg Balsam Buffalo/Altoona Oil (Balsam Buffalo/Al[place] Oil Oint 60 Gm Tube) 1 applic TOPICAL TID [facility] Stop: 02/13/25 13:59 Last Admin: 02/19/24 09:54 Dose: 1 applic Clopidogrel Bisulfate (Clopidogrel Bisulfate 75 Mg Tablet) 75 mg PO DAILY [facility] Stop: 02/13/25 08:59 Last Admin: 02/19/24 09:53 Dose: 75 mg Dextrose (Dextrose 50% In Water 25 Gm/50 Ml Syringe) 0 gm IV-PUSH PRN PRN PRN Reason: Hypoglycemia Stop: 02/12/25 20:40 Diclofenac Sodium (Diclofenac Sodium 1% Gel 100 Gm Tube) 4 gm TOPICAL QID [facility] Stop: 02/12/25 21:59 Last Admin: 02/19/24 09:54 Dose: 2 gm Docusate Sodium (Docusate 100 Mg Capsule) 100 mg PO BID [facility] Stop: 02/16/25 20:59 Last Admin: 02/19/24 09:53 Dose: 100 mg Folic Acid (Cyanocobalamin/Fa/Pyridoxine 1 Tab Tablet) 1 tab PO DAILY [facility] Stop: 02/15/25 08:59 Last Admin: 02/19/24 09:53 Dose: 1 tab Furosemide (Furosemide 40 Mg Tablet) 40 mg PO BID@0800,1600 [facility] Stop: 02/17/25 15:59 Last Admin: 02/19/24 09:53 Dose: 40 mg Gabapentin (Gabapentin 600 Mg Tablet) 600 mg PO BID [facility] Stop: 02/12/25 21:29 Last Admin: 02/13/24 22:29 Dose: 600 mg Gabapentin (Gabapentin 100 Mg Capsule) 200 mg PO BID [facility] Stop: 02/13/25 08:59 Last Admin: 02/19/24 09:53 Dose: 200 mg Glucose (Dextrose 40% Gel 15 Gm Tube) 0 gm PO PRN PRN PRN Reason: Hypoglycemia Stop: 02/12/25 20:40 Heparin Sodium (Porcine) (Heparin 5,000 Unit/Ml Vial) 5,000 unit SUBCUT Q12HR [facility] Stop: 02/13/25 20:59 Last Admin: 02/19/24 09:53 Dose: 5,000 unit Magnesium Sulfate (Magnesium Sulf 2gm-*Swfi*) 2 gm in 50 mls @ 25 mls/hr IV DAILY PRN PRN Reason: Magnesium Level < 1.5 Stop: 02/12/25 20:56 Last Infusion: 02/16/24 00:46 Dose: Infused Linezolid (Zyvox) 600 mg in 300 mls @ 300 mls/hr IV Q12H [facility] Last Admin: 02/19/24 00:00 Dose: 300 mls/hr Insulin Aspart (Insulin Aspart 300 Units/3 Ml Insuln.Pen) 0 units SUBCUT TID.WM.HS [facility]; Protocol Stop: 02/12/25 21:59 Last Admin: 02/19/24 09:58 Dose: 9 units Insulin Glargine (Insulin Glargine 300 Units/3 Ml Insuln.Pen) 25 units SUBCUT BID [facility] Stop: 02/15/25 20:59 Last Admin: 02/19/24 09:54 Dose: 25 units Metoclopramide HCl (Metoclopramide 10 Mg/2 Ml Vial) 5 mg IV-PUSH Q6H PRN PRN Reason: Nausea/Vomiting Stop: 02/12/25 20:40 Metoprolol Tartrate (Metoprolol Tartrate 12.5 Mg Tablet) 12.5 mg PO BID [facility] Stop: 02/12/25 21:29 Last Admin: 02/19/24 09:53 Dose: 12.5 mg Oxybutynin Chloride (Oxybutynin Chloride 5 Mg Tablet) 5 mg PO BID [facility] Stop: 02/14/25 20:59 Last Admin: 02/19/24 09:53 Dose: 5 mg Polyethylene Glycol (Polyethylene Glycol 3350 17 Gm Powd.Pack) 17 gm PO BID [facility] Stop: 02/15/25 20:59 Last Admin: 02/19/24 09:51 Dose: 17 gm Ranolazine (Ranolazine 500 Mg Tab.Er.12h) 500 mg PO Q12H [facility] Stop: 02/12/25 20:44 Last Admin: 02/15/24 09:11 Dose: 500 mg Sertraline HCl (Sertraline 100 Mg Tablet) 100 mg PO DAILY [facility] Stop: 02/13/25 08:59 Last Admin: 02/19/24 09:52 Dose: 100 mg Sodium Chloride (Sodium Chloride 0.9 % 10 Ml Syringe) 0 ml IV-PUSH PRN PRN PRN Reason: Flush Stop: 02/12/25 17:17 Last Admin: 02/18/24 08:38 Dose: 10 ml Sodium Chloride (Sodium Chloride 0.9 % 10 Ml Syringe) 0 ml IV-PUSH PRN PRN PRN Reason: Flush Stop: 02/12/25 20:56 Last Admin: 02/16/24 15:07 Dose: 10 ml Vitamin D (Cholecalciferol 25 Mcg (1,000 Units) Tablet) 100 mcg PO DAILY [facility] Stop: 02/15/25 08:59 Last Admin: 02/19/24 09:52 Dose: 100 mcg A&P - Infectious Disease Assessment/Plan (1) Leukocytosis: (2) Intractable nausea and vomiting: (3) Diarrhea: (4) Venous stasis ulcers of both lower extremities: Plan Patient had a repeat CT scan due to her ongoing abdominal pain that did not showanything different than seen on her prior remains on Linezolid. With lower extremity findings we will add additional gram-negative coverage with ertapenem. It is documented patient did receive ceftriaxone at some point in time. I do see her penicillin allergy but feel she should tolerate ertapenem. Continue to maximize lower extremity wound care. Left lower extremity much more edematous than right lower extremity especially up in the inner thigh. Continuing diuresis Documented By: Deep Eubanks MD 02/19/24 1126 Signed By: <Electronically signed by MD Deep Eubanks> 02/19/24 1130 [facility] Work Phone: [phone]) [phone] Progress note Author Vincenzo Ragsdale [facility] February 18, 2024 12:28pm Note Date/Time February 18, 2024 12: 28pm [facility] [address] [place], [place] [id number] Hospitalist Progress Note Signed Patient: Namrata Jack MR#: [id number] : 1955 Acct:[id number] Age/Sex: 68 / F Adm Date: 4 Loc: Room: [address] [place] [address] Type: ADM IN Attending Dr: Vincenzo Ragsdale DO Copies to: ~ Date of Service: 02/18/2024 Subjective Subjective Narrative: Today the patient is getting turned in bed by nursing staff and reapplying a pure wick. The patient has a number of blisters on her skin which I think is from gravity pulling edema downward. None of them look infected. Looking at all of her skinher skin is actually really good condition with minimal fungal disease, but justlots of chronic changes from her squeezing herself into a lift chair at home that is too small for her. The patient reports that she is feeling better overall. Nausea is gone. Abdominal pain seems to be getting better. She has not moved her bowels in a couple days. She did start taking MiraLAX again. The patient says that she refused BiPAP for the last 3 nights. This is because it caused her to have dry mouth and dry nose. I did encourage her to use this because I think it would reduce lower extremity edema but she adamantly refuses to wear BiPAP. Case management is in the process of finding a [facility]p facility for her. Exam Physical Exam Vital Signs: Temp Pulse Resp BP Pulse Ox O2 Del Method O2 Flow Rate 98.0 F 71 16 152/71 H 93 L Room Air 1 02/18/24 08:00 02/18/24 12:00 02/18/24 12:00 02/18/24 12:00 02/18/24 12:00 02/18/24 12:00 02/15/24 20:00 FiO2 21 02/15/24 22:35 Narrative: Lungs: Clear to auscultation bilaterally, no wheezing, no crackles. Heart: Regular rate and rhythm, no murmurs, rubs, or gallops. Abdomen: Soft, and really does not have any tenderness to palpation of my examination. Auscultation bowel sounds are very hypoactive. Extremities: She does have chronic 2+ pitting edema from her knees down to her ankles bilaterally with resultant chronic venous stasis changes in the bottom half of her legs. Objective Lab Results 02/18/24 06:06 02/18/24 06:06 Microbiology Results Microbiology 02/13/24 21:56 Blood - Left Hand Blood Culture - Preliminary No Growth 4 Days 02/13/24 21:46 Blood - Left Arm Blood Culture - Preliminary No Growth 3 Days Meds Allergies and Active Meds Allergies Penicillins Allergy (Severe, Verified 02/13/24 17:20) Anaphylaxis Iodinated Contrast Media Allergy (Mild, Verified 02/13/24 17:20) Anaphylaxis Active Meds: Active Medications Generic Name Dose Route Start Last Admin Trade Name Freq PRN Reason Stop Dose Admin Acetaminophen 650 mg 02/13/24 20:57 Acetaminophen 325 Mg Tablet PO 02/12/25 20:56 Q4H PRN Pain Scale 1 - 3 or fever Hydrocodone Bitart/Acetaminophen 1 tab 02/14/24 00:20 02/18/24 08:33 Hydrocodone/Acetaminophen 5-325 Mg Tablet PO 1 tab Q4H PRN Administration Pain Scale 6 - 10 Amlodipine Besylate 5 mg 02/14/24 09:00 02/14/24 10:17 Amlodipine 5 Mg Tablet PO 02/13/25 08:59 5 mg DAILY TONY Administration Ascorbic Acid 1,000 mg 02/16/24 09:00 02/18/24 08:33 Ascorbic Acid 500 Mg Tablet PO 02/15/25 08:59 1,000 mg DAILY TONY Administration Aspirin 81 mg 02/14/24 09:00 02/18/24 08:33 Aspirin 81 Mg Tablet. PO 02/13/25 08:59 81 mg DAILY TONY Administration Balsam Buffalo/Al[place]ona Oil 1 applic 02/14/24 14:00 02/18/24 08:36 Balsam Buffalo/[place] Oil Oint 60 Gm Tube TOPICAL 02/13/25 13:59 1 applic TID TONY Administration Clopidogrel Bisulfate 75 mg 02/14/24 09:00 02/18/24 08:33 Clopidogrel Bisulfate 75 Mg Tablet PO 02/13/25 08:59 75 mg DAILY TONY Administration Dextrose 0 gm 02/13/24 20:41 Dextrose 50% In Water 25 Gm/50 Ml Syringe IV-PUSH 02/12/25 20:40 PRN PRN Hypoglycemia Diclofenac Sodium 4 gm 02/13/24 22:00 02/18/24 08:36 Diclofenac Sodium 1% Gel 100 Gm Tube TOPICAL 02/12/25 21:59 4 gm QID TONY Administration Docusate Sodium 100 mg 02/17/24 21:00 02/18/24 08:33 Docusate 100 Mg Capsule PO 02/16/25 20:59 100 mg BID TONY Administration Folic Acid 1 tab 02/16/24 09:00 02/18/24 08:33 Cyanocobalamin/Fa/Pyridoxine 1 Tab Tablet PO 02/15/25 08:59 1 tab DAILY TONY Administration Furosemide 40 mg 02/18/24 16:00 Furosemide 40 Mg Tablet PO 02/17/25 15:59 BID@0800,1600 TONY Gabapentin 600 mg 02/13/24 21:30 02/13/24 22:29 Gabapentin 600 Mg Tablet PO 02/12/25 21:29 600 mg BID TONY Administration Gabapentin 200 mg 02/14/24 09:00 02/18/24 08:32 Gabapentin 100 Mg Capsule PO 02/13/25 08:59 200 mg BID TONY Administration Glucose 0 gm 02/13/24 20:41 Dextrose 40% Gel 15 Gm Tube PO 02/12/25 20:40 PRN PRN Hypoglycemia Heparin Sodium (Porcine) 5,000 unit 02/14/24 21:00 02/18/24 08:35 Heparin 5,000 Unit/Ml Vial SUBCUT 02/13/25 20:59 5,000 unit Q12HR TONY Administration Magnesium Sulfate 2 gm in 50 mls @ 25 mls/hr 02/13/24 20:57 02/16/24 00:46 Magnesium Sulf 2gm-*Swfi* IV 02/12/25 20:56 Infused DAILY PRN Infusion Magnesium Level < 1.5 Linezolid 600 mg in 300 mls @ 300 mls/hr 02/15/24 11:30 02/18/24 11:17 Zyvox IV 300 mls/hr Q12H TONY Administration Insulin Aspart 0 units 02/13/24 22:00 02/18/24 11:21 Insulin Aspart 300 Units/3 Ml Insuln.Pen SUBCUT 02/12/25 21:59 9 units TID.WM.HS TONY Administration Protocol Insulin Glargine 25 units 02/16/24 21:00 02/18/24 08:36 Insulin Glargine 300 Units/3 Ml Insuln.Pen SUBCUT 02/15/25 20:59 25 units BID TONY Administration Metoclopramide HCl 5 mg 02/13/24 20:41 Metoclopramide 10 Mg/2 Ml Vial IV-PUSH 02/12/25 20:40 Q6H PRN Nausea/Vomiting Metoprolol Tartrate 12.5 mg 02/13/24 21:30 02/15/24 09:11 Metoprolol Tartrate 12.5 Mg Tablet PO 02/12/25 21:29 12.5 mg BID TONY Administration Oxybutynin Chloride 5 mg 02/15/24 21:00 02/18/24 08:33 Oxybutynin Chloride 5 Mg Tablet PO 02/14/25 20:59 5 mg BID TONY Administration Polyethylene Glycol 17 gm 02/16/24 21:00 02/18/24 08:27 Polyethylene Glycol 3350 17 Gm Powd.Pack PO 02/15/25 20:59 17 gm BID TONY Administration Ranolazine 500 mg 02/13/24 20:45 02/15/24 09:11 Ranolazine 500 Mg Tab.Er.12h PO 02/12/25 20:44 500 mg Q12H TONY Administration Sertraline HCl 100 mg 02/14/24 09:00 02/18/24 08:33 Sertraline 100 Mg Tablet PO 02/13/25 08:59 100 mg DAILY TONY Administration Sodium Chloride 0 ml 02/13/24 17:18 02/18/24 08:38 Sodium Chloride 0.9 % 10 Ml Syringe IV-PUSH 02/12/25 17:17 10 ml PRN PRN Administration Flush Sodium Chloride 0 ml 02/13/24 20:57 02/16/24 15:07 Sodium Chloride 0.9 % 10 Ml Syringe IV-PUSH 02/12/25 20:56 10 ml PRN PRN Administration Flush Vitamin D 100 mcg 02/16/24 09:00 02/18/24 08:32 Cholecalciferol 25 Mcg (1,000 Units) Tablet PO 02/15/25 08:59 100 mcg DAILY TONY Administration A&P - Hospitalist Assessment/Plan (1) Intractable nausea and vomiting: (2) Diarrhea: (3) Dehydration: (4) Diabetic neuropathy: (5) Diabetic retinopathy: (6) Diabetes mellitus with hyperglycemia: (7) CAD (coronary artery disease): (8) Acute respiratory failure with hypoxia: (9) Fever: (10) Morbid obesity with BMI of 50.0-59.9, adult: (11) Pickwickian syndrome: (12) Chronic HFrEF (heart failure with reduced ejection fraction): (13) CKD (chronic kidney disease) stage 3, GFR 30-59 ml/min: (14) Morbid obesity: (15) GERD (gastroesophageal reflux disease): Plan Assessment: Presentation emergency room with intractable large-volume nausea and vomiting and diarrhea for 2 different ER visits. May have had a foodborne illness causing intractable nausea vomiting and diarrhea at home for 2 days. Development of acute kidney, due to dehydration at home and hypotension at home,with acute tubular necrosis. Cellulitis of both lower extremities. Chronic lower extremity edema. Patient with acute hypoxic respiratory failure in the emergency room requiring 2L of oxygen by nasal cannula, and she has never needed supplemental oxygen before. BMI 58.9, high suspicion of obstructive sleep apnea and obesity hypoventilation syndrome. Chronic problems: Chronic heart failure with reduced ejection fraction, Diabetes mellitus type 2, with A1c right now at 7.4. Chronic kidney disease stage III. GERD. Chronic edema to both lower extremities. Second CT scan, done yesterday on 02/17/2024 due to the patient having left flankpain just like kidney stones shows no acute findings. She does have a tiny left pleural effusion. Plan: Appreciate ID and Nephrology involvement. Advance regular diet as tolerated. Continue insulin scale level 3 regimen. Discontinued IV Levaquin and IV Flagyl per ID on 02/15/24 Continue IV linezolid per infectious disease. Re initiation of diuretics with furosemide per nephrology Continue DVT prophylaxis with Heparin 5000 units SC BID Hold home blood pressure medications such as amlodipine and metoprolol Documented By: Vincenzo Ragsdale DO 122 Signed By: <Electronically signed by Vincenzo Ragsdale DO> 02/18/24 [id number] [facility] Work Phone: 1([phone] 128-431804-21-2024 Progress note Author Ari Johnsonemma [facility] February 18, 2024 9:16am Note Date/Time February 18, 2024 9:1 6am [facility] [address] [place] [address] Nephrology Progress Note Signed Patient: Namrata Jack MR#: [id number] : 1955 Acct:[id number] Age/Sex: 68 / F Adm Date: 4 Loc: Room: [address] [place] [address] Type: ADM IN Attending Dr: Vincenzo Ragsdale DO Copies to: ~ Date of Service: 02/18/2024 Subjective Subjective Narrative: Ms. Jack is a 68-year-old white female with PMH of CKD III, T2DM, diastolic heart failure with chronic edema on diuretics, mild aortic stenosis, CAD s/p 6 stents. Patient has baseline creatinine around 1.3 to 1.6 mg/dL over the last year with intermittent JOY related to diastolic CHF on diuretics. She did require Bumex drip during admission in April 2023 for volume overload. Patient was admitted on 02/12 with intractable nausea, vomiting and diarrhea that has been going on for the last 1 week. She had 2 ER visits with the same problem and she was prescribed Zofran during the previous visits however does not work for her and she has to come back to the ER. Patient had low-grade fever on admission 99.3 with peaked 100.4. Patient had generalized weakness and not ableto stand at home. Abdomen was diffusely tender. Patient had CT scan of the abdomen and pelvis without contrast on admission that was unremarkable. Urine analysis does not suggest UTI. COVID-19, flu and RSV were negative. Patient was started on IV fluid, 2 L/min oxygen and she was admitted for further evaluation. Creatinine admission was 1.5 mg/dL however creatinine continued to increase up to 3.37 mg/dL today despite IV hydration and holding amlodipine. 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 She is supposed to follow- up with renal clinic however she had multiple doctor appointments and shewas not able to do that. Creatinine has been variable between 1.5 to 1.8 mg/dL on diuretics. She had another hospitalization August 2023 with abdominal discomfort and vomiting and she was treated with Flagyl and Rocephin for what appears to be diverticulitis and she stated that she felt better. Interval history: Patient is up in the bed, awake and she feels better. Patient was given a trial of furosemide 40 mg IV twice a day yesterday as she looked volume overloaded with possible right-sided heart failure. Blood pressure did improve and creatinine continue to improve down to 2 mg/dL today closer to the baseline. Exam Physical Exam Vital Signs: Temp Pulse Resp BP Pulse Ox O2 Del Method O2 Flow Rate 36.7 C 70 16 146/73 H 94 L Room Air 1 02/18/24 08:00 02/18/24 08:00 02/18/24 08:00 02/18/24 08:00 02/18/24 08:00 02/18/24 08:00 02/15/24 20:00 FiO2 02/15/24 22:35 Narrative: Constitutional: Morbidly obese, appears comfortable and not in distress HEENT: Mild pallor. No jaundice. Mucous membranes are moist Cardiovascular: Distant heart sound, RRR, normal S1-S2, no gallop or rub, No JVD Respiratory: Diminished breath sounds with no wheezes or crackles Gastrointestinal: Obese soft, non tender, positive bowel sounds. No palpable organs Extremities: 2+ chronic edema, legs and wraps. The wraps are soaked with serousfluid. She has stasis dermatitis with cellulitis Skin: No rashes or bruises Musculoskeletal: No joints swellings or inflammation Neurology: Awake, alert, oriented ?3, No focal motor or sensory deficits Psych: Normal mood and affect Objective Intake and Output I&O: Intake & Output 02/15/24 02/16/24 02/17/24 02/18/24 23:59 23:59 23:59 23:59 Intake Total 1984 / 1899 1550 / 1550 Output Total 2225 / 2225 1000 / 1000 Balance 1984 -675 / -675 -1000 / -1000 Weight 150.8 kg 150.8 kg 150.8 kg 150.9 kg Meds and Allergies Meds: Active Medications Acetaminophen (Acetaminophen 325 Mg Tablet) 650 mg PO Q4H PRN PRN Reason: Pain Scale 1 - 3 or fever Stop: 02/12/25 20:56 Hydrocodone Bitart/Acetaminophen (Hydrocodone/Acetaminophen 5-325 Mg Tablet) 1 tab PO Q4H PRN PRN Reason: Pain Scale 6 - 10 Last Admin: 02/18/24 08:33 Dose: 1 tab Amlodipine Besylate (Amlodipine 5 Mg Tablet) 5 mg PO DAILY TONY Stop: 02/13/25 08:59 Last Admin: 02/14/24 10:17 Dose: 5 mg Ascorbic Acid (Ascorbic Acid 500 Mg Tablet) 1,000 mg PO DAILY TONY Stop: 02/15/25 08:59 Last Admin: 02/18/24 08:33 Dose: 1,000 mg Aspirin (Aspirin 81 Mg Tablet.Dr) 81 mg PO DAILY TONY Stop: 02/13/25 08:59 Last Admin: 02/18/24 08:33 Dose: 81 mg Balsam Harriet/Altoona Oil (Balsam Buffalo/Altoona Oil Oint 60 Gm Tube) 1 applic TOPICAL TID TONY Stop: 02/13/25 13:59 Last Admin: 02/18/24 08:36 Dose: 1 applic Clopidogrel Bisulfate (Clopidogrel Bisulfate 75 Mg Tablet) 75 mg PO DAILY TONY Stop: 02/13/25 08:59 Last Admin: 02/18/24 08:33 Dose: 75 mg Dextrose (Dextrose 50% In Water 25 Gm/50 Ml Syringe) 0 gm IV-PUSH PRN PRN PRN Reason: Hypoglycemia Stop: 02/12/25 20:40 Diclofenac Sodium (Diclofenac Sodium 1% Gel 100 Gm Tube) 4 gm TOPICAL QID TONY Stop: 02/12/25 21:59 Last Admin: 02/18/24 08:36 Dose: 4 gm Docusate Sodium (Docusate 100 Mg Capsule) 100 mg PO BID TONY Stop: 02/16/25 20:59 Last Admin: 02/18/24 08:33 Dose: 100 mg Folic Acid (Cyanocobalamin/Fa/Pyridoxine 1 Tab Tablet) 1 tab PO DAILY TONY Stop: 02/15/25 08:59 Last Admin: 02/18/24 08:33 Dose: 1 tab Furosemide (Furosemide 40 Mg/4 Ml Vial) 40 mg IV-PUSH BID@0800,1600 TONY Stop: 02/16/25 15:59 Last Admin: 02/18/24 08:35 Dose: 40 mg Gabapentin (Gabapentin 600 Mg Tablet) 600 mg PO BID [facility] Stop: 02/12/25 21:29 Last Admin: 02/13/24 22:29 Dose: 600 mg Gabapentin (Gabapentin 100 Mg Capsule) 200 mg PO BID [facility] Stop: 02/13/25 08:59 Last Admin: 02/18/24 08:32 Dose: 200 mg Glucose (Dextrose 40% Gel 15 Gm Tube) 0 gm PO PRN PRN PRN Reason: Hypoglycemia Stop: 02/12/25 20:40 Heparin Sodium (Porcine) (Heparin 5,000 Unit/Ml Vial) 5,000 unit SUBCUT Q12HR [facility] Stop: 02/13/25 20:59 Last Admin: 02/18/24 08:35 Dose: 5,000 unit Magnesium Sulfate (Magnesium Sulf 2gm-*Swfi*) 2 gm in 50 mls @ 25 mls/hr IV DAILY PRN PRN Reason: Magnesium Level < 1.5 Stop: 02/12/25 20:56 Last Infusion: 02/16/24 00:46 Dose: Infused Linezolid (Zyvox) 600 mg in 300 mls @ 300 mls/hr IV Q12H [facility] Last Admin: 02/18/24 00:14 Dose: 300 mls/hr Insulin Aspart (Insulin Aspart 300 Units/3 Ml Insuln.Pen) 0 units SUBCUT TID.[facility]; Protocol Stop: 02/12/25 21:59 Last Admin: 02/18/24 08:35 Dose: Not Given Insulin Glargine (Insulin Glargine 300 Units/3 Ml Insuln.Pen) 25 units SUBCUT BID [facility] Stop: 02/15/25 20:59 Last Admin: 02/18/24 08:36 Dose: 25 units Metoclopramide HCl (Metoclopramide 10 Mg/2 Ml Vial) 5 mg IV-PUSH Q6H PRN PRN Reason: Nausea/Vomiting Stop: 02/12/25 20:40 Metoprolol Tartrate (Metoprolol Tartrate 12.5 Mg Tablet) 12.5 mg PO BID [facility] Stop: 02/12/25 21:29 Last Admin: 02/15/24 09:11 Dose: 12.5 mg Oxybutynin Chloride (Oxybutynin Chloride 5 Mg Tablet) 5 mg PO BID [facility] Stop: 02/14/25 20:59 Last Admin: 02/18/24 08:33 Dose: 5 mg Polyethylene Glycol (Polyethylene Glycol 3350 17 Gm Powd.Pack) 17 gm PO BID TONY Stop: 02/15/25 20:59 Last Admin: 02/18/24 08:27 Dose: 17 gm Ranolazine (Ranolazine 500 Mg Tab.Er.12h) 500 mg PO Q12H TONY Stop: 02/12/25 20:44 Last Admin: 02/15/24 09:11 Dose: 500 mg Sertraline HCl (Sertraline 100 Mg Tablet) 100 mg PO DAILY TONY Stop: 02/13/25 08:59 Last Admin: 02/18/24 08:33 Dose: 100 mg Sodium Chloride (Sodium Chloride 0.9 % 10 Ml Syringe) 0 ml IV-PUSH PRN PRN PRN Reason: Flush Stop: 02/12/25 17:17 Last Admin: 02/18/24 08:38 Dose: 10 ml Sodium Chloride (Sodium Chloride 0.9 % 10 Ml Syringe) 0 ml IV-PUSH PRN PRN PRN Reason: Flush Stop: 02/12/25 20:56 Last Admin: 02/16/24 15:07 Dose: 10 ml Vitamin D (Cholecalciferol 25 Mcg (1,000 Units) Tablet) 100 mcg PO DAILY TONY Stop: 02/15/25 08:59 Last Admin: 02/18/24 08:32 Dose: 100 mcg Allergies Penicillins Allergy (Severe, Verified 02/13/24 17:20) Anaphylaxis Iodinated Contrast Media Allergy (Mild, Verified 02/13/24 17:20) Anaphylaxis Results - Nephrology Labs 02/18/24 06:06 02/18/24 06:06 Labs: 02/18/24 06:06 BUN 74 H Creatinine 2.00 H D Radiology Impressions Impressions - last 24 hours: Impressions Abdomen/Pelvis CT 02/17/24 10:39 IMPRESSION: MINOR BASILAR PARENCHYMAL CHANGES AND TINY LEFT EFFUSION. GRANULOMATOUS CHANGES. NO BOWEL OR URINARY TRACT OBSTRUCTION. NO ACUTE FINDINGS. Impression dictated by: Jessica Hawkins M.D.02/17/2024 2:58 PM Dictation Location: [place] [address] Any impression(s) listed above is documentation that was entered by the reading physician into a diagnostic report(s) for Namrata Jack. I have reviewed the report(s) and am incorporating any findings in the treatment plan of this patient where applicable. A&P - Nephrology Assessment/Plan (1) Acute kidney injury: Assessment/Problem Details: Patient presented with JOY with progressive rise of serum creatinine in setting of low blood pressure, nausea, vomiting and diarrhea. Patient on IV fluid however serum creatinine still rising. Patient has no Garrett catheter however itwas reported that she has multiple voids. Although JOY could be prerenal related to nausea and vomiting, patient may possibly had ATN by the time of admission and the creatinine continues to increase. Clinically she is euvolemicto mildly hypervolemic with history of CHF. Chest x-ray on admission also showed cardiomegaly with mild congestion. * CT scan of the abdomen without contrast on admission showed no evidence of hydronephrosis * Urine analysis showed no bacteriuria or significant proteinuria. No casts. * Furosemide, metolazone and spironolactone are on hold on admission. * IV fluid was stopped on 02/14 for concern about volume overload. Urinary sodium is only 19 mmol/L, with edema and mild pulmonary congestion on chest x- ray suggestive of CHF. Patient was given a trial of furosemide with improvement of renal function * Amlodipine, metoprolol and Ranexa are on hold because of low blood pressure (2) CKD (chronic kidney disease) stage 3, GFR 30-59 ml/min: Assessment/Problem Details: Patient has CKD stage III related to diabetes and atherosclerotic renovascular disease. Baseline creatinine variable between 1.5 to 1.8 mg/dL. (3) Hyponatremia: Assessment/Problem Details: Sodium is lower than 130 in the setting of JOY, nausea and vomiting. She looks hypovolemic as well at this point (4) Leukocytosis: Assessment/Problem Details: Patient has leukocytosis with abdominal tenderness on admission. * On empirical treatment with Levaquin and Flagyl for colitis. Blood cultures are negative x 4 days. Stool for C. difficile is negative * Patient was evaluated by ID and linezolid was added to cover possible left lower extremity cellulitis (5) Intractable nausea and vomiting: Assessment/Problem Details: Patient presented with nausea and vomiting, workup still pending. GI profile was sent. Patient on Flagyl and levofloxacin (6) BMI 50.0-59.9, adult: Plan * Renal functions continue to improve with diuretics suggestive that JOY is related to right-sided heart failure with renal congestion. Blood pressure did improve with diuretics and holding blood pressure medications. Will switch furosemide IV to oral 40 mg twice a day and continue to monitor renal function. * Amlodipine, metoprolol and Ranexa are on hold because of low blood pressure on admission. Blood pressure did improve even on furosemide. Ideally hypertension should be treated with diuretics for since she has significant edema with addition of other blood pressure medications if BP still elevated. Patient can restart Ranexa once serum creatinine is down to baseline 1.6 to 1.7 mg/dL as she stated that she had recurrent chest pain before. * Monitor daily intake, output and renal panel Documented By: Ari Fernández MD 02/18/24 0908 Signed By: <Electronically signed by MD Ari Fernández> 02/18/24 0916 [facility] Work Phone: 1([phone]) 936-780404-20-2024 Progress note Author Vincenzo Ragsdale [facility] February 17, 2024 2:32pm Note Date/Time February 17, 2024 12: 20pm [facility] [address] [place] [address] Hospitalist Progress Note Signed Patient: Namrata Jack MR#: [id number] : 1955 Acct:[id number] Age/Sex: 68 / F Adm Date: 4 Loc: Room: [address] [place] [address] Type: ADM IN Attending Dr: Vincenzo Ragsdale DO Copies to: ~ Date of Service: 02/17/2024 Subjective Subjective Narrative: Patient is seen and evaluated on the floor this morning. She states that she isfeeling better than yesterday. She is not having any nausea, vomiting, or diarrhea. She believes that her appetite is coming back as well. She is still having abdominal pain, particularly in the lateral inferior aspects of her abdomen. She states this has not improved or gotten worse. She denies any respiratory issues such as shortness of breath. She is still yet to have a normal bowel movement since hospital stay. She did urinate quite a bit yesterday. She denies chest pain, chest tightness, racing heart. She notes some new flank pain. She has a history of kidney stones and states this feels similar. Exam Physical Exam Vital Signs: Temp Pulse Resp BP Pulse Ox O2 Del Method O2 Flow Rate 97.4 F L 64 16 141/74 H 95 Room Air 1 02/17/24 08:00 02/17/24 08:00 02/17/24 08:00 02/17/24 08:00 02/17/24 08:00 02/17/24 08:05 02/17/24 08:05 FiO2 21 02/17/24 08:05 Narrative: General: Patient is cooperative and acting appropriately. Her discomfort has improved today. Pulmonary: Lungs clear to auscultation bilaterally without wheezes, rales, rhonchi. Cardiac: heart rate and rhythm regular without murmurs, rubs, gallops. Abdomen: Soft, but tenderness to palpation all over. More pain is concentrated on the lateral inferior aspects bilaterally. Bowel sounds decreased x 4. Extremities: Both legs wrapped in Lisa wrap. Patient able to wiggle all toes. Pain to palpation noted on the anterior aspect of the left leg. Objective Lab Results 02/17/24 06:13 02/17/24 06:13 Microbiology Results Microbiology 02/13/24 21:56 Blood - Left Hand Blood Culture - Preliminary No Growth 3 Days 02/13/24 21:46 Blood - Left Arm Blood Culture - Preliminary No Growth 2 Days 02/14/24 17:55 Straight Catheter Urine Culture - Final <9,000 colonies/ml mixed bacterial skin contaminants 2 Days Meds Allergies and Active Meds Allergies Penicillins Allergy (Severe, Verified 02/13/24 17:20) Anaphylaxis Iodinated Contrast Media Allergy (Mild, Verified 02/13/24 17:20) Anaphylaxis Active Meds: Active Medications Generic Name Dose Route Start Last Admin Trade Name Freq PRN Reason Stop Dose Admin Acetaminophen 650 mg 02/13/24 20:57 Acetaminophen 325 Mg Tablet PO 02/12/25 20:56 Q4H PRN Pain Scale 1 - 3 or fever Hydrocodone Bitart/Acetaminophen 1 tab 02/14/24 00:20 02/17/24 08:16 Hydrocodone/Acetaminophen 5-325 Mg Tablet PO 1 tab Q4H PRN Administration Pain Scale 6 - 10 Amlodipine Besylate 5 mg 02/14/24 09:00 02/14/24 10:17 Amlodipine 5 Mg Tablet PO 02/13/25 08:59 5 mg DAILY TONY Administration Ascorbic Acid 1,000 mg 02/16/24 09:00 02/17/24 08:16 Ascorbic Acid 500 Mg Tablet PO 02/15/25 08:59 1,000 mg DAILY TONY Administration Aspirin 81 mg 02/14/24 09:00 02/17/24 08:16 Aspirin 81 Mg Tablet. PO 02/13/25 08:59 81 mg DAILY TONY Administration Balsam Buffalo/Altoona Oil 1 applic 02/14/24 14:00 02/17/24 08:16 Balsam Harriet/Altoona Oil Oint 60 Gm Tube TOPICAL 02/13/25 13:59 1 applic TID TNOY Administration Clopidogrel Bisulfate 75 mg 02/14/24 09:00 02/17/24 08:16 Clopidogrel Bisulfate 75 Mg Tablet PO 02/13/25 08:59 75 mg DAILY TONY Administration Dextrose 0 gm 02/13/24 20:41 Dextrose 50% In Water 25 Gm/50 Ml Syringe IV-PUSH 02/12/25 20:40 PRN PRN Hypoglycemia Diclofenac Sodium 4 gm 02/13/24 22:00 02/17/24 08:16 Diclofenac Sodium 1% Gel 100 Gm Tube TOPICAL 02/12/25 21:59 4 gm QID TONY Administration Folic Acid 1 tab 02/16/24 09:00 02/17/24 08:15 Cyanocobalamin/Fa/Pyridoxine 1 Tab Tablet PO 02/15/25 08:59 1 tab DAILY TONY Administration Gabapentin 600 mg 02/13/24 21:30 02/13/24 22:29 Gabapentin 600 Mg Tablet PO 02/12/25 21:29 600 mg BID TONY Administration Gabapentin 200 mg 02/14/24 09:00 02/17/24 08:16 Gabapentin 100 Mg Capsule PO 02/13/25 08:59 200 mg BID TONY Administration Glucose 0 gm 02/13/24 20:41 Dextrose 40% Gel 15 Gm Tube PO 02/12/25 20:40 PRN PRN Hypoglycemia Heparin Sodium (Porcine) 5,000 unit 02/14/24 21:00 02/17/24 08:16 Heparin 5,000 Unit/Ml Vial SUBCUT 02/13/25 20:59 5,000 unit Q12HR TONY Administration Magnesium Sulfate 2 gm in 50 mls @ 25 mls/hr 02/13/24 20:57 02/16/24 00:46 Magnesium Sulf 2gm-*Swfi* IV 02/12/25 20:56 Infused DAILY PRN Infusion Magnesium Level < 1.5 Linezolid 600 mg in 300 mls @ 300 mls/hr 02/15/24 11:30 02/17/24 02:08 Zyvox IV Infused Q12H TONY Infusion Insulin Aspart 0 units 02/13/24 22:00 02/17/24 08:17 Insulin Aspart 300 Units/3 Ml Insuln.Pen SUBCUT 02/12/25 21:59 5 units TID.WM.HS TOYN Administration Protocol Insulin Glargine 25 units 02/16/24 21:00 02/17/24 08:17 Insulin Glargine 300 Units/3 Ml Insuln.Pen SUBCUT 02/15/25 20:59 25 units BID TONY Administration Metoclopramide HCl 5 mg 02/13/24 20:41 Metoclopramide 10 Mg/2 Ml Vial IV-PUSH 02/12/25 20:40 Q6H PRN Nausea/Vomiting Metoprolol Tartrate 12.5 mg 02/13/24 21:30 02/15/24 09:11 Metoprolol Tartrate 12.5 Mg Tablet PO 02/12/25 21:29 12.5 mg BID TONY Administration Oxybutynin Chloride 5 mg 02/15/24 21:00 02/17/24 08:22 Oxybutynin Chloride 5 Mg Tablet PO 02/14/25 20:59 5 mg BID TONY Administration Polyethylene Glycol 17 gm 02/16/24 21:00 02/17/24 08:14 Polyethylene Glycol 3350 17 Gm Powd.Pack PO 02/15/25 20:59 17 gm BID TONY Administration Ranolazine 500 mg 02/13/24 20:45 02/15/24 09:11 Ranolazine 500 Mg Tab.Er.12h PO 02/12/25 20:44 500 mg Q12H TONY Administration Sertraline HCl 100 mg 02/14/24 09:00 02/17/24 08:15 Sertraline 100 Mg Tablet PO 02/13/25 08:59 100 mg DAILY TONY Administration Sodium Chloride 0 ml 02/13/24 17:18 02/16/24 12:00 Sodium Chloride 0.9 % 10 Ml Syringe IV-PUSH 02/12/25 17:17 10 ml PRN PRN Administration Flush Sodium Chloride 0 ml 02/13/24 20:57 02/16/24 15:07 Sodium Chloride 0.9 % 10 Ml Syringe IV-PUSH 02/12/25 20:56 10 ml PRN PRN Administration Flush Vitamin D 100 mcg 02/16/24 09:00 02/17/24 08:15 Cholecalciferol 25 Mcg (1,000 Units) Tablet PO 02/15/25 08:59 100 mcg DAILY TONY Administration A&P - Hospitalist Assessment/Plan (1) Intractable nausea and vomiting: (2) Diarrhea: (3) Dehydration: (4) Diabetic neuropathy: (5) Diabetic retinopathy: (6) Diabetes mellitus with hyperglycemia: (7) CAD (coronary artery disease): (8) Acute respiratory failure with hypoxia: (9) Fever: (10) Morbid obesity with BMI of 50.0-59.9, adult: (11) Pickwickian syndrome: (12) Chronic HFrEF (heart failure with reduced ejection fraction): (13) CKD (chronic kidney disease) stage 3, GFR 30-59 ml/min: (14) Morbid obesity: (15) GERD (gastroesophageal reflux disease): Plan Assessment: Patient having complaint of right flank pain. She has a history of kidney stonesand states this is similar to her past stones. Presentation emergency room with intractable large-volume nausea and vomiting and diarrhea for 2 different ER visits. Development of acute kidney injury most likely with acute tubular necrosis. Hypotension. Cellulitis of both lower extremities. Nausea. Patient with acute hypoxic respiratory failure in the emergency room requiring 2L of oxygen by nasal cannula, this does seem to be improving and she is on room air now. BMI 58.9, high suspicion of obstructive sleep apnea and obesity hypoventilation syndrome. Chronic problems: Chronic heart failure with reduced ejection fraction, Diabetes mellitus type 2, with A1c right now at 7.4. Chronic kidney disease stage III. GERD. Chronic edema to both lower extremities. Plan: Appreciate ID and Nephrology involvement. Advance regular diet as tolerated. Continue insulin scale level 3 regimen. Discontinue IV Levaquin and IV Flagyl per ID Continue IV linezolid per infectious disease. Trial IV furosemide 40mg IV twice a day x 2 doses per nephrology Continue DVT prophylaxis Start PT/OT Hold home blood pressure medications such as amlodipine and metoprolol Order CT abdomen/pelvis for flank pain work up. +++ +++ I discussed the case with nephrology in person on rounds earlier in the day. Her urine output has improved tremendously and now her creatinine is improving. Her blood pressure is also rising to where we would like it to be to allow for better renal recovery. I personally examined the patient on this day of the encounter. I reviewed the relevant history, performed the da silva elements of the physical examination, and coordinated the plan of care and I confirmed the resident's medical documentation as written. - - - Vincenzo Ragsdale DO. Internal Medicine + Hospitalist attending physician. Documented By: Vincenzo Ragsdale DO [id number] Signed By: <Electronically signed by Vincenzo Ragsdale DO> 02/17/24 1432 [facility] Work Phone: [phone] 999-465604-20-2024 Progress note Author Ari Fernández [facility] February 17, 2024 10:34am Note Date/Time February 17, 2024 10: 34am [facility] [address] [place] [address] Nephrology Progress Note Signed Patient: Namrata Jack MR#: [id number] : 1955 Acct:[id number] Age/Sex: 68 / F Adm Date: 4 Loc: Room: [address] [place] [address] Type: ADM IN Attending Dr: Vincenzo Ragsdale DO Copies to: ~ Date of Service: 02/17/2024 Subjective Subjective Narrative: Ms. Jack is a 68-year-old white female with PMH of CKD III, T2DM, diastolic heart failure with chronic edema on diuretics, mild aortic stenosis, CAD s/p 6 stents. Patient has baseline creatinine around 1.3 to 1.6 mg/dL over the last year with intermittent JOY related to diastolic CHF on diuretics. She did require Bumex drip during admission in April 2023 for volume overload. Patient was admitted on 02/12 with intractable nausea, vomiting and diarrhea that has been going on for the last 1 week. She had 2 ER visits with the same problem and she was prescribed Zofran during the previous visits however does not work for her and she has to come back to the ER. Patient had low-grade fever on admission 99.3 with peaked 100.4. Patient had generalized weakness and not ableto stand at home. Abdomen was diffusely tender. Patient had CT scan of the abdomen and pelvis without contrast on admission that was unremarkable. Urine analysis does not suggest UTI. COVID-19, flu and RSV were negative. Patient was started on IV fluid, 2 L/min oxygen and she was admitted for further evaluation. Creatinine admission was 1.5 mg/dL however creatinine continued to increase up to 3.37 mg/dL today despite IV hydration and holding amlodipine. 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 She is supposed to follow- up with renal clinic however she had multiple doctor appointments and shewas not able to do that. Creatinine has been variable between 1.5 to 1.8 mg/dL on diuretics. She had another hospitalization August 2023 with abdominal discomfort and vomiting and she was treated with Flagyl and Rocephin for what appears to be diverticulitis and she stated that she felt better. Interval history: Patient was given a trial of furosemide 40 mg IV twice a day yesterday as she looked volume overloaded with possible right-sided heart failure. Blood pressure did improve with diuretics and renal function started to improve with creatinine down to 2.68 mg/dL. Potassium is normal. BUN is elevated however stable at 84 mg/dL IV fluid was stopped yesterday as the patient looks volume overloaded. Leukocytosis is better down to 16,000. Patient is currently on Flagyl for possible colitis/diverticulitis. She also has bilateral lower extremity wounds oozing serous fluid on linezolid. Patient denies any fever. No nausea or vomiting. Exam Physical Exam Vital Signs: Temp Pulse Resp BP Pulse Ox O2 Del Method O2 Flow Rate 36.3 C L 64 16 141/74 H 95 Room Air 1 02/17/24 08:00 02/17/24 08:00 02/17/24 08:00 02/17/24 08:00 02/17/24 08:00 02/17/24 08:05 02/17/24 08:05 FiO2 21 02/17/24 08:05 Narrative: Constitutional: Morbidly obese, appears comfortable and not in distress HEENT: Mild pallor. No jaundice. Mucous membranes are moist Cardiovascular: Distant heart sound, RRR, normal S1-S2, no gallop or rub, No JVD Respiratory: Diminished breath sounds with no wheezes or crackles Gastrointestinal: Obese soft, non tender, positive bowel sounds. No palpable organs Extremities: 2+ chronic edema, legs and wraps. The wraps are soaked with serousfluid. She has stasis dermatitis with questionable cellulitis Skin: No rashes or bruises Musculoskeletal: No joints swellings or inflammation Neurology: Awake, alert, oriented ?3, No focal motor or sensory deficits Psych: Normal mood and affect Objective Intake and Output I&O: Intake & Output 02/14/24 02/15/24 02/16/24 02/17/24 23:59 23:59 23:59 23:59 Intake Total 3070 / 3070 1984 500 / 500 Output Total 425 / 425 650 / 650 Balance 2645 / 2645 1984 / 1899 -150 / -150 Weight 151.9 kg 150.8 kg 150.8 kg 150.8 kg Meds and Allergies Meds: Active Medications Acetaminophen (Acetaminophen 325 Mg Tablet) 650 mg PO Q4H PRN PRN Reason: Pain Scale 1 - 3 or fever Stop: 02/12/25 20:56 Hydrocodone Bitart/Acetaminophen (Hydrocodone/Acetaminophen 5-325 Mg Tablet) 1 tab PO Q4H PRN PRN Reason: Pain Scale 6 - 10 Last Admin: 02/17/24 08:16 Dose: 1 tab Amlodipine Besylate (Amlodipine 5 Mg Tablet) 5 mg PO DAILY [facility] Stop: 02/13/25 08:59 Last Admin: 02/14/24 10:17 Dose: 5 mg Ascorbic Acid (Ascorbic Acid 500 Mg Tablet) 1,000 mg PO DAILY TONY Stop: 02/15/25 08:59 Last Admin: 02/17/24 08:16 Dose: 1,000 mg Aspirin (Aspirin 81 Mg Tablet.) 81 mg PO DAILY TONY Stop: 02/13/25 08:59 Last Admin: 02/17/24 08:16 Dose: 81 mg Balsam Harriet/Altoona Oil (Balsam Buffalo/Altoona Oil Oint 60 Gm Tube) 1 applic TOPICAL TID [facility] Stop: 02/13/25 13:59 Last Admin: 02/17/24 08:16 Dose: 1 applic Clopidogrel Bisulfate (Clopidogrel Bisulfate 75 Mg Tablet) 75 mg PO DAILY [facility] Stop: 02/13/25 08:59 Last Admin: 02/17/24 08:16 Dose: 75 mg Dextrose (Dextrose 50% In Water 25 Gm/50 Ml Syringe) 0 gm IV-PUSH PRN PRN PRN Reason: Hypoglycemia Stop: 02/12/25 20:40 Diclofenac Sodium (Diclofenac Sodium 1% Gel 100 Gm Tube) 4 gm TOPICAL QID [facility] Stop: 02/12/25 21:59 Last Admin: 02/17/24 08:16 Dose: 4 gm Docusate Sodium (Docusate 100 Mg Capsule) 100 mg PO BID [facility] Stop: 02/16/25 20:59 Folic Acid (Cyanocobalamin/Fa/Pyridoxine 1 Tab Tablet) 1 tab PO DAILY [facility] Stop: 02/15/25 08:59 Last Admin: 02/17/24 08:15 Dose: 1 tab Gabapentin (Gabapentin 600 Mg Tablet) 600 mg PO BID [facility] Stop: 02/12/25 21:29 Last Admin: 02/13/24 22:29 Dose: 600 mg Gabapentin (Gabapentin 100 Mg Capsule) 200 mg PO BID [facility] Stop: 02/13/25 08:59 Last Admin: 02/17/24 08:16 Dose: 200 mg Glucose (Dextrose 40% Gel 15 Gm Tube) 0 gm PO PRN PRN PRN Reason: Hypoglycemia Stop: 02/12/25 20:40 Heparin Sodium (Porcine) (Heparin 5,000 Unit/Ml Vial) 5,000 unit SUBCUT Q12HR [facility] Stop: 02/13/25 20:59 Last Admin: 02/17/24 08:16 Dose: 5,000 unit Magnesium Sulfate (Magnesium Sulf 2gm-*Swfi*) 2 gm in 50 mls @ 25 mls/hr IV DAILY PRN PRN Reason: Magnesium Level < 1.5 Stop: 02/12/25 20:56 Last Infusion: 02/16/24 00:46 Dose: Infused Linezolid (Zyvox) 600 mg in 300 mls @ 300 mls/hr IV Q12H [facility] Last Infusion: 02/17/24 02:08 Dose: Infused Insulin Aspart (Insulin Aspart 300 Units/3 Ml Insuln.Pen) 0 units SUBCUT TID.WM.HS [facility]; Protocol Stop: 02/12/25 21:59 Last Admin: 02/17/24 08:17 Dose: 5 units Insulin Glargine (Insulin Glargine 300 Units/3 Ml Insuln.Pen) 25 units SUBCUT BID TONY Stop: 02/15/25 20:59 Last Admin: 02/17/24 08:17 Dose: 25 units Metoclopramide HCl (Metoclopramide 10 Mg/2 Ml Vial) 5 mg IV-PUSH Q6H PRN PRN Reason: Nausea/Vomiting Stop: 02/12/25 20:40 Metoprolol Tartrate (Metoprolol Tartrate 12.5 Mg Tablet) 12.5 mg PO BID TONY Stop: 02/12/25 21:29 Last Admin: 02/15/24 09:11 Dose: 12.5 mg Oxybutynin Chloride (Oxybutynin Chloride 5 Mg Tablet) 5 mg PO BID TONY Stop: 02/14/25 20:59 Last Admin: 02/17/24 08:22 Dose: 5 mg Polyethylene Glycol (Polyethylene Glycol 3350 17 Gm Powd.Pack) 17 gm PO BID TONY Stop: 02/15/25 20:59 Last Admin: 02/17/24 08:14 Dose: 17 gm Ranolazine (Ranolazine 500 Mg Tab.Er.12h) 500 mg PO Q12H [facility] Stop: 02/12/25 20:44 Last Admin: 02/15/24 09:11 Dose: 500 mg Sertraline HCl (Sertraline 100 Mg Tablet) 100 mg PO DAILY TONY Stop: 02/13/25 08:59 Last Admin: 02/17/24 08:15 Dose: 100 mg Sodium Chloride (Sodium Chloride 0.9 % 10 Ml Syringe) 0 ml IV-PUSH PRN PRN PRN Reason: Flush Stop: 02/12/25 17:17 Last Admin: 02/16/24 12:00 Dose: 10 ml Sodium Chloride (Sodium Chloride 0.9 % 10 Ml Syringe) 0 ml IV-PUSH PRN PRN PRN Reason: Flush Stop: 02/12/25 20:56 Last Admin: 02/16/24 15:07 Dose: 10 ml Vitamin D (Cholecalciferol 25 Mcg (1,000 Units) Tablet) 100 mcg PO DAILY TONY Stop: 02/15/25 08:59 Last Admin: 02/17/24 08:15 Dose: 100 mcg Allergies Penicillins Allergy (Severe, Verified 02/13/24 17:20) Anaphylaxis Iodinated Contrast Media Allergy (Mild, Verified 02/13/24 17:20) Anaphylaxis Results - Nephrology Labs 02/17/24 06:13 02/17/24 06:13 Labs: 02/17/24 06:13 BUN 84 H Creatinine 2.68 H Radiology Impressions Impressions - last 24 hours: Any impression(s) listed above is documentation that was entered by the reading physician into a diagnostic report(s) for Namrata Jack. I have reviewed the report(s) and am incorporating any findings in the treatment plan of this patient where applicable. A&P - Nephrology Assessment/Plan (1) Acute kidney injury: Assessment/Problem Details: Patient presented with JOY with progressive rise of serum creatinine in setting of low blood pressure, nausea, vomiting and diarrhea. Patient on IV fluid however serum creatinine still rising. Patient has no Garrett catheter however itwas reported that she has multiple voids. Although JOY could be prerenal related to nausea and vomiting, patient may possibly had ATN by the time of admission and the creatinine continues to increase. Clinically she is euvolemicto mildly hypervolemic with history of CHF. Chest x-ray on admission also showed cardiomegaly with mild congestion. * CT scan of the abdomen without contrast on admission showed no evidence of hydronephrosis * Urine analysis showed no bacteriuria or significant proteinuria. No casts. * Furosemide, metolazone and spironolactone are on hold. * IV fluid was stopped on 02/14 for concern about volume overload. Urinary sodium is only 19 mmol/L, with edema and mild pulmonary congestion on chest x- ray suggestive of CHF * Amlodipine, metoprolol and Ranexa are on hold because of low blood pressure (2) CKD (chronic kidney disease) stage 3, GFR 30-59 ml/min: Assessment/Problem Details: Patient has CKD stage III related to diabetes and atherosclerotic renovascular disease. Baseline creatinine variable between 1.5 to 1.8 mg/dL. (3) Hyponatremia: Assessment/Problem Details: Sodium is lower than 130 in the setting of JOY, nausea and vomiting. She looks hypovolemic as well at this point (4) Leukocytosis: Assessment/Problem Details: Patient has leukocytosis with abdominal tenderness on admission. * On empirical treatment with Levaquin and Flagyl for colitis * Patient was evaluated by ID and linezolid was added to cover possible left lower extremity cellulitis (5) Intractable nausea and vomiting: Assessment/Problem Details: Patient presented with nausea and vomiting, workup still pending. GI profile was sent. Patient on Flagyl and levofloxacin (6) BMI 50.0-59.9, adult: Plan * Patient has favorable response to the IV furosemide with improvement of blood pressure and serum creatinine is trending down to 2.68 mg/dL. She has normal potassium. BUN is still elevated however it is stable. Will continue furosemide 40 mg IV twice a day and monitor blood pressure and renal panel. * Amlodipine, metoprolol and Ranexa are on hold because of low blood pressure * Monitor daily intake, output and renal panel Plan of care was discussed with Dr. Ragsdale Documented By: Ari Fernández MD 02/17/24 1030 Signed By: <Electronically signed by MD Ari Fernández> 02/17/24 1034 [facility] Work Phone: [phone] 625-479204-19-2024 Progress note Author Vincenzo Ragsdale [facility] February 16, 2024 4:17pm Note Date/Time February 16, 2024 4:0 7pm [facility] [address] [place] [address] Hospitalist Progress Note Signed Patient: Namrata Jack MR#: [id number] : 1955 Acct:[id number] Age/Sex: 68 / F Adm Date: 4 Loc: Room: [address] [place] [address] Type: ADM IN Attending Dr: Vincenzo Ragsdale DO Copies to: ~ Date of Service: 02/16/2024 Subjective Subjective Narrative: Patient is seen and evaluated on the floor today. She states that she is feeling worse today. She denies any nausea, vomiting, or diarrhea. She continues to have abdominal pain. She attributes feeling worse today to not getting enough sleep last night. Patient feels that she can hardly talk due to the CPAP machine. Patient is no longer using nasal cannula and is not feeling any shortness of breath. She has not had a bowel movement since 02/13. She states her appetite has not fully returned. She is urinating quite frequently. While in room, nurses were checking patient's blood pressure and it was noted tammy fairly low at 98/63. Patient has been receiving Lasix. Exam Physical Exam Vital Signs: Temp Pulse Resp BP Pulse Ox O2 Del Method O2 Flow Rate 97.4 F L 60 14 98/63 L 92 L Room Air 1 02/16/24 11:59 02/16/24 11:59 02/16/24 11:59 02/16/24 11:59 02/16/24 11:59 02/16/24 11:59 02/15/24 20:00 FiO2 21 02/15/24 22:35 Narrative: General: Patient is cooperative. She is still in a lot of discomfort on exam. Pulmonary: Lungs clear to auscultation bilaterally without wheezes, rales, rhonchi. Cardiac: heart rate and rhythm regular without murmurs, rubs, gallops. Abdomen: Soft, but tenderness to palpation all over. More pain is concentrated on the lateral aspects bilaterally. Bowel sounds decreased x 4. Extremities: Both legs wrapped in Lisa wrap. Patient able to wiggle all toes. Objective Lab Results 02/16/24 05:57 02/16/24 05:57 Microbiology Results Microbiology 02/14/24 17:55 Straight Catheter Urine Culture - Final <9,000 colonies/ml mixed bacterial skin contaminants 2 Days 02/13/24 21:56 Blood - Left Hand Blood Culture - Preliminary No Growth 2 Days 02/13/24 21:46 Blood - Left Arm Blood Culture - Preliminary No Growth 1 Day Meds Allergies and Active Meds Allergies Penicillins Allergy (Severe, Verified 02/13/24 17:20) Anaphylaxis Iodinated Contrast Media Allergy (Mild, Verified 02/13/24 17:20) Anaphylaxis Active Meds: Active Medications Generic Name Dose Route Start Last Admin Trade Name Freq PRN Reason Stop Dose Admin Acetaminophen 650 mg 02/13/24 20:57 Acetaminophen 325 Mg Tablet PO 02/12/25 20:56 Q4H PRN Pain Scale 1 - 3 or fever Hydrocodone Bitart/Acetaminophen 1 tab 02/14/24 00:20 02/16/24 08:55 Hydrocodone/Acetaminophen 5-325 Mg Tablet PO 1 tab Q4H PRN Administration Pain Scale 6 - 10 Amlodipine Besylate 5 mg 02/14/24 09:00 02/14/24 10:17 Amlodipine 5 Mg Tablet PO 02/13/25 08:59 5 mg DAILY TONY Administration Ascorbic Acid 1,000 mg 02/16/24 09:00 02/16/24 08:55 Ascorbic Acid 500 Mg Tablet PO 02/15/25 08:59 1,000 mg DAILY TONY Administration Aspirin 81 mg 02/14/24 09:00 02/16/24 08:56 Aspirin 81 Mg Tablet. PO 02/13/25 08:59 81 mg DAILY TONY Administration Balsam Buffalo/[place] Oil 1 applic 02/14/24 14:00 02/16/24 09:01 Balsam Buffalo/[place] Oil Oint 60 Gm Tube TOPICAL 02/13/25 13:59 1 applic TID TONY Administration Clopidogrel Bisulfate 75 mg 02/14/24 09:00 02/16/24 08:56 Clopidogrel Bisulfate 75 Mg Tablet PO 02/13/25 08:59 75 mg DAILY TONY Administration Dextrose 0 gm 02/13/24 20:41 Dextrose 50% In Water 25 Gm/50 Ml Syringe IV-PUSH 02/12/25 20:40 PRN PRN Hypoglycemia Diclofenac Sodium 4 gm 02/13/24 22:00 02/16/24 09:01 Diclofenac Sodium 1% Gel 100 Gm Tube TOPICAL 02/12/25 21:59 4 gm QID TONY Administration Folic Acid 1 tab 02/16/24 09:00 02/16/24 08:55 Cyanocobalamin/Fa/Pyridoxine 1 Tab Tablet PO 02/15/25 08:59 1 tab DAILY TONY Administration Furosemide 40 mg 02/16/24 11:15 02/16/24 12:00 Furosemide 40 Mg/4 Ml Vial IV-PUSH 02/16/24 16:01 40 mg BID@0800,1600 TONY Administration Gabapentin 600 mg 02/13/24 21:30 02/13/24 22:29 Gabapentin 600 Mg Tablet PO 02/12/25 21:29 600 mg BID TONY Administration Gabapentin 200 mg 02/14/24 09:00 02/16/24 08:55 Gabapentin 100 Mg Capsule PO 02/13/25 08:59 200 mg BID TONY Administration Glucose 0 gm 02/13/24 20:41 Dextrose 40% Gel 15 Gm Tube PO 02/12/25 20:40 PRN PRN Hypoglycemia Heparin Sodium (Porcine) 5,000 unit 02/14/24 21:00 02/16/24 08:56 Heparin 5,000 Unit/Ml Vial SUBCUT 02/13/25 20:59 5,000 unit Q12HR TONY Administration Levofloxacin 750 mg in 150 mls @ 100 mls/hr 02/13/24 21:30 02/16/24 00:46 Levaquin IV Infused Q48H TONY Infusion Metronidazole 500 mg in 100 mls @ 100 mls/hr 02/13/24 22:00 02/16/24 05:20 Flagyl IV 100 mls/hr Q8H TONY Administration Magnesium Sulfate 2 gm in 50 mls @ 25 mls/hr 02/13/24 20:57 02/16/24 00:46 Magnesium Sulf 2gm-*Swfi* IV 02/12/25 20:56 Infused DAILY PRN Infusion Magnesium Level < 1.5 Linezolid 600 mg in 300 mls @ 300 mls/hr 02/15/24 11:30 02/16/24 11:56 Zyvox IV 300 mls/hr Q12H TONY Administration Insulin Aspart 0 units 02/13/24 22:00 02/16/24 12:01 Insulin Aspart 300 Units/3 Ml Insuln.Pen SUBCUT 02/12/25 21:59 4 units TID.WM.HS TONY Administration Protocol Insulin Glargine 15 units 02/15/24 21:00 02/16/24 09:03 Insulin Glargine 300 Units/3 Ml Insuln.Pen SUBCUT 02/14/25 20:59 15 units BID TONY Administration Metoclopramide HCl 5 mg 02/13/24 20:41 Metoclopramide 10 Mg/2 Ml Vial IV-PUSH 02/12/25 20:40 Q6H PRN Nausea/Vomiting Metoprolol Tartrate 12.5 mg 02/13/24 21:30 02/15/24 09:11 Metoprolol Tartrate 12.5 Mg Tablet PO 02/12/25 21:29 12.5 mg BID TONY Administration Metoprolol Tartrate 5 mg 02/13/24 20:44 Metoprolol Tartrate 5 Mg/5 Ml Vial IV-PUSH 02/12/25 20:43 Q4H PRN Blood Pressure Oxybutynin Chloride 5 mg 02/15/24 21:00 02/16/24 08:56 Oxybutynin Chloride 5 Mg Tablet PO 02/14/25 20:59 5 mg BID TONY Administration Ranolazine 500 mg 02/13/24 20:45 02/15/24 09:11 Ranolazine 500 Mg Tab.Er.12h PO 02/12/25 20:44 500 mg Q12H TONY Administration Sertraline HCl 100 mg 02/14/24 09:00 02/16/24 08:55 Sertraline 100 Mg Tablet PO 02/13/25 08:59 100 mg DAILY TONY Administration Sodium Chloride 0 ml 02/13/24 17:18 02/16/24 12:00 Sodium Chloride 0.9 % 10 Ml Syringe IV-PUSH 02/12/25 17:17 10 ml PRN PRN Administration Flush Sodium Chloride 0 ml 02/13/24 20:57 Sodium Chloride 0.9 % 10 Ml Syringe IV-PUSH 02/12/25 20:56 PRN PRN Flush Vitamin D 100 mcg 02/16/24 09:00 02/16/24 08:54 Cholecalciferol 25 Mcg (1,000 Units) Tablet PO 02/15/25 08:59 100 mcg DAILY TONY Administration A&P - Hospitalist Assessment/Plan (1) Intractable nausea and vomiting: (2) Diarrhea: (3) Dehydration: (4) Diabetic neuropathy: (5) Diabetic retinopathy: (6) Diabetes mellitus with hyperglycemia: (7) CAD (coronary artery disease): (8) Acute respiratory failure with hypoxia: (9) Fever: (10) Morbid obesity with BMI of 50.0-59.9, adult: (11) Pickwickian syndrome: (12) Acute kidney injury: (13) Chronic HFrEF (heart failure with reduced ejection fraction): (14) CKD (chronic kidney disease) stage 3, GFR 30-59 ml/min: (15) Morbid obesity: (16) GERD (gastroesophageal reflux disease): Plan Assessment: Presentation emergency room with intractable large-volume nausea and vomiting and diarrhea for 2 different ER visits. Development of acute kidney injury most likely with acute tubular necrosis. Hypotension. Cellulitis of both lower extremities. Nausea. Patient with acute hypoxic respiratory failure in the emergency room requiring 2L of oxygen by nasal cannula, this does seem to be improving and she is on room air now. BMI 58.9, high suspicion of obstructive sleep apnea and obesity hypoventilation syndrome. Chronic problems: Chronic heart failure with reduced ejection fraction, Diabetes mellitus type 2, with A1c right now at 7.4. Chronic kidney disease stage III. GERD. Chronic edema to both lower extremities. Plan: Appreciate ID and Nephrology involvement. Advance regular diet as tolerated. Continue insulin scale level 3 regimen. Discontinue IV Levaquin and IV Flagyl per ID Continue IV linezolid per infectious disease. Trial IV furosemide 40mg IV twice a day x 2 doses per nephrology Continue DVT prophylaxis Start PT/OT Hold home blood pressure medications such as amlodipine and metoprolol +++ +++ I discussed the case with nephrology in person on rounds earlier in the day. Ipersonally examined the patient on this day of the encounter. I reviewed the relevant history, performed the da silva elements of the physical examination, and coordinated the plan of care and I confirmed the resident's medical documentation as written. - - - Vincenzo Ragsdale DO. Internal Medicine + Hospitalist attending physician. Documented By: Vincenzo Ragsdale DO [id number] Signed By: <Electronically signed by Vincenzo Ragsdale DO> 02/16/24 [facility] Work Phone: [phone]) 501-435504-19-2024 Progress note Author Deep Eubanks [facility] February 16, 2024 3:23pm Note Date/Time February 16, 2024 2:1 8pm [facility] [address] [place] [address] Infect. Disease Progress Note Signed Patient: Namrata Jack MR#: [id number] : 1955 Acct:[id number] Age/Sex: 68 / F Adm Date: 4 Loc: Room: [address] [place] [address] Type: ADM IN Attending Dr: Vincenzo Ragsdale DO Copies to: ~ Date of Service: 02/16/2024 Subjective Interval history: Patient continues to endorse that he is having abdominal discomfort and is uncomfortable overall. Denies diarrhea as well as further nausea or vomiting. Main complaint is abdominal pain. Exam Physical Exam Vital Signs: Temp Pulse Resp BP Pulse Ox O2 Del Method O2 Flow Rate 97.4 F L 60 14 98/63 L 92 L Room Air 1 02/16/24 11:59 02/16/24 11:59 02/16/24 11:59 02/16/24 11:59 02/16/24 11:59 02/16/24 11:59 02/15/24 20:00 FiO2 21 02/15/24 22:35 Const General: uncomfortable (Still uncomfortable in her abdomen.) Orientation: oriented x3 HEENT Head: normal to inspection Ears: hearing grossly normal bilaterally Mouth: oral mucosae normal Eyes General: appearance normal, both eyes and all related structures Neck Neck: normal visual inspection Chest Chest palpation & inspection: normal inspection of the chest Resp Effort & Inspection: normal respiratory effort Auscultation: clear to auscultation bilaterally Cardio Palpation: normal PMI Rate: regular rate Rhythm: regular rhythm GI Inspection: normal to inspection Palpation: soft and tender in the epigastrum, in the LLQ, in the RLQ and with norebound tenderness Auscultation: normal bowel sounds Skin General: other (Finding changes over the lower extremity consistent with stasis dermatitis ) Other: Warmth noted over the left lower extremity with more skin involvement here mild cellulitis. Bilateral lateral buttocks with significant erythematous changes. Of note she has striae on her abdomen that is engorged from edema as well Extrem General: abnormal to inspection (see skin) Objective Labs CBC/BMP: CBC, BMP 02/15/24 02/16/24 06:53 05:57 Corrected WBC 19.7 H Uncorrected WBC Count 20.9 H RBC 3.55 L Hgb 11.0 L Hct 33.0 L Plt Count 202 Sodium 126 L 125 L Potassium 3.9 4.1 Chloride 89 L 90 L Carbon Dioxide 26.4 23.2 Anion Gap 14.5 15.9 H BUN 72 H 85 H Creatinine 3.37 H 3.14 H Calcium 8.4 L 8.2 L Labs: 02/15/24 02/16/24 06:53 05:57 BUN 72 H 85 H Creatinine 3.37 H 3.14 H Microbiology Microbiology: Microbiology - Results from entire visit 02/13/24 21:46 Blood - Left Arm Blood Culture - Preliminary No Growth 2 Days 02/14/24 17:55 Straight Catheter Urine Culture - Final <9,000 colonies/ml mixed bacterial skin contaminants 2 Days 02/13/24 21:56 Blood - Left Hand Blood Culture - Preliminary No Growth 2 Days Allergies and Medications Allergies and Active Meds Allergies Penicillins Allergy (Severe, Verified 02/13/24 17:20) Anaphylaxis Iodinated Contrast Media Allergy (Mild, Verified 02/13/24 17:20) Anaphylaxis Active Medications Acetaminophen (Acetaminophen 325 Mg Tablet) 650 mg PO Q4H PRN PRN Reason: Pain Scale 1 - 3 or fever Stop: 02/12/25 20:56 Hydrocodone Bitart/Acetaminophen (Hydrocodone/Acetaminophen 5-325 Mg Tablet) 1 tab PO Q4H PRN PRN Reason: Pain Scale 6 - 10 Last Admin: 02/16/24 08:55 Dose: 1 tab Amlodipine Besylate (Amlodipine 5 Mg Tablet) 5 mg PO DAILY TONY Stop: 02/13/25 08:59 Last Admin: 02/14/24 10:17 Dose: 5 mg Ascorbic Acid (Ascorbic Acid 500 Mg Tablet) 1,000 mg PO DAILY TONY Stop: 02/15/25 08:59 Last Admin: 02/16/24 08:55 Dose: 1,000 mg Aspirin (Aspirin 81 Mg Tablet.Dr) 81 mg PO DAILY TONY Stop: 02/13/25 08:59 Last Admin: 02/16/24 08:56 Dose: 81 mg Balsam Buffalo/Altoona Oil (Balsam Harriet/Altoona Oil Oint 60 Gm Tube) 1 applic TOPICAL TID TONY Stop: 02/13/25 13:59 Last Admin: 02/16/24 09:01 Dose: 1 applic Clopidogrel Bisulfate (Clopidogrel Bisulfate 75 Mg Tablet) 75 mg PO DAILY TONY Stop: 02/13/25 08:59 Last Admin: 02/16/24 08:56 Dose: 75 mg Dextrose (Dextrose 50% In Water 25 Gm/50 Ml Syringe) 0 gm IV-PUSH PRN PRN PRN Reason: Hypoglycemia Stop: 02/12/25 20:40 Diclofenac Sodium (Diclofenac Sodium 1% Gel 100 Gm Tube) 4 gm TOPICAL QID TONY Stop: 02/12/25 21:59 Last Admin: 02/16/24 09:01 Dose: 4 gm Folic Acid (Cyanocobalamin/Fa/Pyridoxine 1 Tab Tablet) 1 tab PO DAILY TONY Stop: 02/15/25 08:59 Last Admin: 02/16/24 08:55 Dose: 1 tab Furosemide (Furosemide 40 Mg/4 Ml Vial) 40 mg IV-PUSH BID@0800,1600 TONY Stop: 02/16/24 16:01 Last Admin: 02/16/24 12:00 Dose: 40 mg Gabapentin (Gabapentin 600 Mg Tablet) 600 mg PO BID [facility] Stop: 02/12/25 21:29 Last Admin: 02/13/24 22:29 Dose: 600 mg Gabapentin (Gabapentin 100 Mg Capsule) 200 mg PO BID [facility] Stop: 02/13/25 08:59 Last Admin: 02/16/24 08:55 Dose: 200 mg Glucose (Dextrose 40% Gel 15 Gm Tube) 0 gm PO PRN PRN PRN Reason: Hypoglycemia Stop: 02/12/25 20:40 Heparin Sodium (Porcine) (Heparin 5,000 Unit/Ml Vial) 5,000 unit SUBCUT Q12HR [facility] Stop: 02/13/25 20:59 Last Admin: 02/16/24 08:56 Dose: 5,000 unit Levofloxacin (Levaquin) 750 mg in 150 mls @ 100 mls/hr IV Q48H [facility] Last Infusion: 02/16/24 00:46 Dose: Infused Metronidazole (Flagyl) 500 mg in 100 mls @ 100 mls/hr IV Q8H [facility] Last Admin: 02/16/24 05:20 Dose: 100 mls/hr Magnesium Sulfate (Magnesium Sulf 2gm-*Swfi*) 2 gm in 50 mls @ 25 mls/hr IV DAILY PRN PRN Reason: Magnesium Level < 1.5 Stop: 02/12/25 20:56 Last Infusion: 02/16/24 00:46 Dose: Infused Linezolid (Zyvox) 600 mg in 300 mls @ 300 mls/hr IV Q12H [facility] Last Admin: 02/16/24 11:56 Dose: 300 mls/hr Insulin Aspart (Insulin Aspart 300 Units/3 Ml Insuln.Pen) 0 units SUBCUT TID.WM.HS [facility]; Protocol Stop: 02/12/25 21:59 Last Admin: 02/16/24 12:01 Dose: 4 units Insulin Glargine (Insulin Glargine 300 Units/3 Ml Insuln.Pen) 15 units SUBCUT BID [facility] Stop: 02/14/25 20:59 Last Admin: 02/16/24 09:03 Dose: 15 units Metoclopramide HCl (Metoclopramide 10 Mg/2 Ml Vial) 5 mg IV-PUSH Q6H PRN PRN Reason: Nausea/Vomiting Stop: 02/12/25 20:40 Metoprolol Tartrate (Metoprolol Tartrate 12.5 Mg Tablet) 12.5 mg PO BID [facility] Stop: 02/12/25 21:29 Last Admin: 02/15/24 09:11 Dose: 12.5 mg Metoprolol Tartrate (Metoprolol Tartrate 5 Mg/5 Ml Vial) 5 mg IV-PUSH Q4H PRN PRN Reason: Blood Pressure Stop: 02/12/25 20:43 Oxybutynin Chloride (Oxybutynin Chloride 5 Mg Tablet) 5 mg PO BID [facility] Stop: 02/14/25 20:59 Last Admin: 02/16/24 08:56 Dose: 5 mg Ranolazine (Ranolazine 500 Mg Tab.Er.12h) 500 mg PO Q12H [facility] Stop: 02/12/25 20:44 Last Admin: 02/15/24 09:11 Dose: 500 mg Sertraline HCl (Sertraline 100 Mg Tablet) 100 mg PO DAILY [facility] Stop: 02/13/25 08:59 Last Admin: 02/16/24 08:55 Dose: 100 mg Sodium Chloride (Sodium Chloride 0.9 % 10 Ml Syringe) 0 ml IV-PUSH PRN PRN PRN Reason: Flush Stop: 02/12/25 17:17 Last Admin: 02/16/24 12:00 Dose: 10 ml Sodium Chloride (Sodium Chloride 0.9 % 10 Ml Syringe) 0 ml IV-PUSH PRN PRN PRN Reason: Flush Stop: 02/12/25 20:56 Vitamin D (Cholecalciferol 25 Mcg (1,000 Units) Tablet) 100 mcg PO DAILY [facility]ON[facility] Stop: 02/15/25 08:59 Last Admin: 02/16/24 08:54 Dose: 100 mcg A&P - Infectious Disease Assessment/Plan (1) Leukocytosis: (2) Intractable nausea and vomiting: (3) Diarrhea: (4) Venous stasis ulcers of both lower extremities: Plan Patient continues to complain of abdominal pain but CT scan on 02/12 does not show anything acute. This was done without contrast. Patient with acute on chronic kidney disease with a creatinine now down to 3.14 from 3.37. Empiric Levaquin and Flagyl were started for diverticular disease but CT scan does not confirm this so therefore we will get her off of this. Will maintain Linezolid to cover potential skin and soft tissue infection. Clinically patient seems volume overloaded given edema in her abd pannus/lower extremities. Diuresis started today. I feel patient may need to have a Garrett catheter inserted in order to monitor appropriate I's and O's. Cultures however have not yielded anypositive results suggestive of a significant infection. Documented By: Deep Eubanks MD 02/16/24 1413 Signed By: <Electronically signed by MD Deep Eubanks> 02/16/24 1103 [facility] Work Phone: [phone] 624-563904-19-2024 [facility] February 16, 2024 10:55am Note Date/Time February 16, 2024 10: 55am [facility] [address] [place] [address] Nephrology Progress Note Signed Patient: Namrata Jack MR#: [id number] : 1955 Acct:[id number] Age/Sex: 68 / F Adm Date: 4 Loc: Room: [address] [place] [address] Type: ADM IN Attending Dr: Vincenzo Ragsdale DO Copies to: ~ Date of Service: 02/16/2024 Subjective Subjective Narrative: Ms. Jack is a 68-year-old white female with PMH of CKD III, T2DM, diastolic heart failure with chronic edema on diuretics, mild aortic stenosis, CAD s/p 6 stents. Patient has baseline creatinine around 1.3 to 1.6 mg/dL over the last year with intermittent JOY related to diastolic CHF on diuretics. She did require Bumex drip during admission in April 2023 for volume overload. Patient was admitted on 02/12 with intractable nausea, vomiting and diarrhea that has been going on for the last 1 week. She had 2 ER visits with the same problem and she was prescribed Zofran during the previous visits however does not work for her and she has to come back to the ER. Patient had low-grade fever on admission 99.3 with peaked 100.4. Patient had generalized weakness and not ableto stand at home. Abdomen was diffusely tender. Patient had CT scan of the abdomen and pelvis without contrast on admission that was unremarkable. Urine analysis does not suggest UTI. COVID-19, flu and RSV were negative. Patient was started on IV fluid, 2 L/min oxygen and she was admitted for further evaluation. Creatinine admission was 1.5 mg/dL however creatinine continued to increase up to 3.37 mg/dL today despite IV hydration and holding amlodipine. 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 She is supposed to follow- up with renal clinic however she had multiple doctor appointments and shewas not able to do that. Creatinine has been variable between 1.5 to 1.8 mg/dL on diuretics. She had another hospitalization August 2023 with abdominal discomfort and vomiting and she was treated with Flagyl and Rocephin for what appears to be diverticulitis and she stated that she felt better. Interval history: IV fluid was stopped yesterday as the patient looks volume overloaded. Blood pressure still borderline. Renal function stabilized and serum creatinine slightly down to 3.14. Patient continues to have leukocytosis up to 19,000. Patient is currently on Flagyl for possible colitis/diverticulitis. She also has bilateral lower extremity wounds oozing serous fluid on linezolid. Patient denies any fever. No nausea or vomiting. Exam Physical Exam Vital Signs: Temp Pulse Resp BP Pulse Ox O2 Del Method O2 Flow Rate 36.4 C L 59 L 14 108/68 93 L Room Air 1 02/16/24 07:52 02/16/24 07:52 02/16/24 07:52 02/16/24 07:52 02/16/24 07:52 02/16/24 08:15 02/15/24 20:00 FiO2 21 02/15/24 22:35 Narrative: Constitutional: Morbidly obese, appears comfortable and not in distress HEENT: Mild pallor. No jaundice. Mucous membranes are moist Cardiovascular: Distant heart sound, RRR, normal S1-S2, no gallop or rub, No JVD Respiratory: Diminished breath sounds with no wheezes or crackles Gastrointestinal: Obese soft, non tender, positive bowel sounds. No palpable organs Extremities: 2+ chronic edema, legs and wraps. The wraps are soaked with serousfluid. She has stasis dermatitis with questionable cellulitis Skin: No rashes or bruises Musculoskeletal: No joints swellings or inflammation Neurology: Awake, alert, oriented ?3, No focal motor or sensory deficits Psych: Normal mood and affect Objective Intake and Output I&O: Intake & Output 02/13/24 02/14/24 02/15/24 02/16/24 23:59 23:59 23:59 23:59 Intake Total 1100 / 1250 3070 / 3070 1984 300 / 300 Output Total 425 / 425 Balance 1100 / 1250 2645 / 2645 1984 300 / 300 Weight 152.3 kg 151.9 kg 150.8 kg 150.8 kg Meds and Allergies Meds: Active Medications Acetaminophen (Acetaminophen 325 Mg Tablet) 650 mg PO Q4H PRN PRN Reason: Pain Scale 1 - 3 or fever Stop: 02/12/25 20:56 Hydrocodone Bitart/Acetaminophen (Hydrocodone/Acetaminophen 5-325 Mg Tablet) 1 tab PO Q4H PRN PRN Reason: Pain Scale 6 - 10 Last Admin: 02/16/24 08:55 Dose: 1 tab Amlodipine Besylate (Amlodipine 5 Mg Tablet) 5 mg PO DAILY [facility] Stop: 02/13/25 08:59 Last Admin: 02/14/24 10:17 Dose: 5 mg Ascorbic Acid (Ascorbic Acid 500 Mg Tablet) 1,000 mg PO DAILY [facility] Stop: 02/15/25 08:59 Last Admin: 02/16/24 08:55 Dose: 1,000 mg Aspirin (Aspirin 81 Mg Tablet.Dr) 81 mg PO DAILY [facility] Stop: 02/13/25 08:59 Last Admin: 02/16/24 08:56 Dose: 81 mg Balsam Harriet/Altoona Oil (Balsam Buffalo/[place] Oil Oint 60 Gm Tube) 1 applic TOPICAL TID [facility] Stop: 02/13/25 13:59 Last Admin: 02/16/24 09:01 Dose: 1 applic Clopidogrel Bisulfate (Clopidogrel Bisulfate 75 Mg Tablet) 75 mg PO DAILY [facility] Stop: 02/13/25 08:59 Last Admin: 02/16/24 08:56 Dose: 75 mg Dextrose (Dextrose 50% In Water 25 Gm/50 Ml Syringe) 0 gm IV-PUSH PRN PRN PRN Reason: Hypoglycemia Stop: 02/12/25 20:40 Diclofenac Sodium (Diclofenac Sodium 1% Gel 100 Gm Tube) 4 gm TOPICAL QID [facility]ON[facility] Stop: 02/12/25 21:59 Last Admin: 02/16/24 09:01 Dose: 4 gm Folic Acid (Cyanocobalamin/Fa/Pyridoxine 1 Tab Tablet) 1 tab PO DAILY [facility] Stop: 02/15/25 08:59 Last Admin: 02/16/24 08:55 Dose: 1 tab Gabapentin (Gabapentin 600 Mg Tablet) 600 mg PO BID [facility] Stop: 02/12/25 21:29 Last Admin: 02/13/24 22:29 Dose: 600 mg Gabapentin (Gabapentin 100 Mg Capsule) 200 mg PO BID [facility] Stop: 02/13/25 08:59 Last Admin: 02/16/24 08:55 Dose: 200 mg Glucose (Dextrose 40% Gel 15 Gm Tube) 0 gm PO PRN PRN PRN Reason: Hypoglycemia Stop: 02/12/25 20:40 Heparin Sodium (Porcine) (Heparin 5,000 Unit/Ml Vial) 5,000 unit SUBCUT Q12HR [facility] Stop: 02/13/25 20:59 Last Admin: 02/16/24 08:56 Dose: 5,000 unit Levofloxacin (Levaquin) 750 mg in 150 mls @ 100 mls/hr IV Q48H [facility] Last Infusion: 02/16/24 00:46 Dose: Infused Metronidazole (Flagyl) 500 mg in 100 mls @ 100 mls/hr IV Q8H [facility] Last Admin: 02/16/24 05:20 Dose: 100 mls/hr Magnesium Sulfate (Magnesium Sulf 2gm-*Swfi*) 2 gm in 50 mls @ 25 mls/hr IV DAILY PRN PRN Reason: Magnesium Level < 1.5 Stop: 02/12/25 20:56 Last Infusion: 02/16/24 00:46 Dose: Infused Linezolid (Zyvox) 600 mg in 300 mls @ 300 mls/hr IV Q12H [facility] Last Admin: 02/15/24 23:39 Dose: 300 mls/hr Insulin Aspart (Insulin Aspart 300 Units/3 Ml Insuln.Pen) 0 units SUBCUT TID.WM.HS [facility]; Protocol Stop: 02/12/25 21:59 Last Admin: 02/16/24 09:02 Dose: 4 units Insulin Glargine (Insulin Glargine 300 Units/3 Ml Insuln.Pen) 15 units SUBCUT BID [facility] Stop: 02/14/25 20:59 Last Admin: 02/16/24 09:03 Dose: 15 units Metoclopramide HCl (Metoclopramide 10 Mg/2 Ml Vial) 5 mg IV-PUSH Q6H PRN PRN Reason: Nausea/Vomiting Stop: 02/12/25 20:40 Metoprolol Tartrate (Metoprolol Tartrate 12.5 Mg Tablet) 12.5 mg PO BID [facility] Stop: 02/12/25 21:29 Last Admin: 02/15/24 09:11 Dose: 12.5 mg Metoprolol Tartrate (Metoprolol Tartrate 5 Mg/5 Ml Vial) 5 mg IV-PUSH Q4H PRN PRN Reason: Blood Pressure Stop: 02/12/25 20:43 Oxybutynin Chloride (Oxybutynin Chloride 5 Mg Tablet) 5 mg PO BID [facility] Stop: 02/14/25 20:59 Last Admin: 02/16/24 08:56 Dose: 5 mg Ranolazine (Ranolazine 500 Mg Tab.Er.12h) 500 mg PO Q12H [facility] Stop: 02/12/25 20:44 Last Admin: 02/15/24 09:11 Dose: 500 mg Sertraline HCl (Sertraline 100 Mg Tablet) 100 mg PO DAILY [facility] Stop: 02/13/25 08:59 Last Admin: 02/16/24 08:55 Dose: 100 mg Sodium Chloride (Sodium Chloride 0.9 % 10 Ml Syringe) 0 ml IV-PUSH PRN PRN PRN Reason: Flush Stop: 02/12/25 17:17 Last Admin: 02/14/24 15:14 Dose: 10 ml Sodium Chloride (Sodium Chloride 0.9 % 10 Ml Syringe) 0 ml IV-PUSH PRN PRN PRN Reason: Flush Stop: 02/12/25 20:56 Vitamin D (Cholecalciferol 25 Mcg (1,000 Units) Tablet) 100 mcg PO DAILY [facility]ON[facility] Stop: 02/15/25 08:59 Last Admin: 02/16/24 08:54 Dose: 100 mcg Allergies Penicillins Allergy (Severe, Verified 02/13/24 17:20) Anaphylaxis Iodinated Contrast Media Allergy (Mild, Verified 02/13/24 17:20) Anaphylaxis Results - Nephrology Labs 02/16/24 05:57 02/16/24 05:57 Labs: 02/15/24 02/15/2424 06:53 18:20 05:57 BUN 72 H 85 H Creatinine 3.37 H 3.14 H Urine Color Dark yellow A Urine Appearance Cloudy A Urine pH 5.0 Ur Specific [place] 1.016 Urine Protein Negative Urine Glucose (UA) Normal Urine Ketones Trace H Urine Occult Blood Negative Urine Nitrite Negative Ur Leukocyte Esterase 2+ H Urine RBC 3-4 Urine WBC 1-2 Urine Bacteria 1+ H Radiology Impressions Impressions - last 24 hours: Any impression(s) listed above is documentation that was entered by the reading physician into a diagnostic report(s) for Namrata Jack. I have reviewed the report(s) and am incorporating any findings in the treatment plan of this patient where applicable. A&P - Nephrology Assessment/Plan (1) Acute kidney injury: Assessment/Problem Details: Patient presented with JOY with progressive rise of serum creatinine in setting of low blood pressure, nausea, vomiting and diarrhea. Patient on IV fluid however serum creatinine still rising. Patient has no Garrett catheter however itwas reported that she has multiple voids. Although JOY could be prerenal related to nausea and vomiting, patient may possibly had ATN by the time of admission and the creatinine continues to increase. Clinically she is euvolemicto mildly hypervolemic with history of CHF. Chest x-ray on admission also showed cardiomegaly with mild congestion. * CT scan of the abdomen without contrast on admission showed no evidence of hydronephrosis * Urine analysis showed no bacteriuria or significant proteinuria. No casts. * Furosemide, metolazone and spironolactone are on hold. * IV fluid was stopped on 02/14 for concern about volume overload. Urinary sodium is only 19 mmol/L, with edema and mild pulmonary congestion on chest x- ray suggestive of CHF * Amlodipine, metoprolol and Ranexa are on hold because of low blood pressure (2) CKD (chronic kidney disease) stage 3, GFR 30-59 ml/min: Assessment/Problem Details: Patient has CKD stage III related to diabetes and atherosclerotic renovascular disease. Baseline creatinine variable between 1.5 to 1.8 mg/dL. (3) Hyponatremia: Assessment/Problem Details: Sodium is lower than 130 in the setting of JOY, nausea and vomiting. She looks hypovolemic as well at this point (4) Leukocytosis: Assessment/Problem Details: Patient has leukocytosis with abdominal tenderness on admission. * On empirical treatment with Levaquin and Flagyl for colitis * Patient was evaluated by ID and linezolid was added to cover possible left lower extremity cellulitis (5) Intractable nausea and vomiting: Assessment/Problem Details: Patient presented with nausea and vomiting, workup still pending. GI profile was sent. Patient on Flagyl and levofloxacin (6) BMI 50.0-59.9, adult: Plan * Patient looks volume overloaded with possible renal congestion. Will try IV furosemide 40 mg IV twice a day x 2 doses. Although the patient has low urinary sodium with low FENa however seems to be volume overload with CHF rather than volume depletion. Will continue furosemide if renal functions continue to improve. * Amlodipine, metoprolol and Ranexa are on hold because of low blood pressure * Recheck urine analysis and spot urine for sodium and creatinine * Plan to try diuretics tomorrow if serum creatinine continues to rise. Most likely patient has an element of ATN since blood pressure was low and currently has volume overload and mild CHF. * Monitor daily intake, output and renal panel Documented By: Ari Fernández MD 02/16/24 1046 Signed By: <Electronically signed by MD Ari Fernández> 02/16/24 1050 [facility] Work Phone: [phone] 849-695404-18-2024 Progress note Author Vincenzo Ragsdale [facility] February 15, 2024 5:29pm Note Date/Time February 15, 2024 2:5 5pm [facility] [address] [place] [address] Hospitalist Progress Note Signed Patient: Namrata Jack MR#: [id number] : 1955 Acct:[id number] Age/Sex: 68 / F Adm Date: 4 Loc: Room: [address] [place] [address] Type: ADM IN Attending Dr: Vincenzo Ragsdale DO Copies to: ~ Date of Service: 02/15/2024 Subjective Subjective Narrative: Patient is seen and evaluated on the floor today. She states she is feeling better than yesterday. She still is having some nausea but denies any vomiting or diarrhea. She states she had a small bowel movement yesterday. She continues to have abdominal pain that is more concentrated on the lateral aspects. The nurses attempted to take her nasal cannula off but her pulse ox dropped. She did experience some shortness of breath as well. She is currentlyon 1 L of oxygen. She mentioned she saw the infectious disease doctor earlier who is adding another antibiotic. Additionally, she was able to get sleep last night and slept with the BiPAP mask on. She denies chest pain, chest tightness,racing heart. Exam Physical Exam Vital Signs: Temp Pulse Resp BP Pulse Ox O2 Del Method O2 Flow Rate 97.8 F 68 16 102/64 93 L Room Air 2 02/15/24 08:16 02/15/24 08:16 02/15/24 08:16 02/15/24 08:16 02/15/24 08:16 02/15/24 08:16 02/15/24 08:00 FiO2 21 02/14/24 23:00 Narrative: General: Patient is cooperative. She is still in a lot of discomfort on exam. Pulmonary: Lungs clear to auscultation bilaterally without wheezes, rales, rhonchi. Cardiac: heart rate and rhythm regular without murmurs, rubs, gallops. Abdomen: Soft, but tenderness to palpation all over. More pain is concentrated on the lateral aspects bilaterally. Bowel sounds decreased x 4. Extremities: Both legs wrapped in Lisa wrap. Patient able to wiggle all toes. Objective Lab Results 02/15/24 06:53 02/15/24 06:53 Microbiology Results Microbiology 02/14/24 17:55 Straight Catheter Urine Culture - Preliminary No Growth 1 Day 02/13/24 21:56 Blood - Left Hand Blood Culture - Preliminary No Growth 1 Day Imaging Imaging Results Comments: CT: IMPRESSION: No bowel obstruction or obstructive uropathy. No acute intra-abdominal pathology. Meds Allergies and Active Meds Allergies Penicillins Allergy (Severe, Verified 02/13/24 17:20) Anaphylaxis Iodinated Contrast Media Allergy (Mild, Verified 02/13/24 17:20) Anaphylaxis Active Meds: Active Medications Generic Name Dose Route Start Last Admin Trade Name Freq PRN Reason Stop Dose Admin Acetaminophen 650 mg 02/13/24 20:57 Acetaminophen 325 Mg Tablet PO 02/12/25 20:56 Q4H PRN Pain Scale 1 - 3 or fever Hydrocodone Bitart/Acetaminophen 1 tab 02/14/24 00:20 02/15/24 09:11 Hydrocodone/Acetaminophen 5-325 Mg Tablet PO 1 tab Q4H PRN Administration Pain Scale 6 - 10 Amlodipine Besylate 5 mg 02/14/24 09:00 02/14/24 10:17 Amlodipine 5 Mg Tablet PO 02/13/25 08:59 5 mg DAILY TONY Administration Aspirin 81 mg 02/14/24 09:00 02/15/24 09:11 Aspirin 81 Mg Tablet.Dr PO 02/13/25 08:59 81 mg DAILY TONY Administration Balsam [place] Oil 1 applic 02/14/24 14:00 02/14/24 21:56 Balsam Harriet/[place] Oil Oint 60 Gm Tube TOPICAL 02/13/25 13:59 Not Given TID TONY Clopidogrel Bisulfate 75 mg 02/14/24 09:00 02/15/24 09:11 Clopidogrel Bisulfate 75 Mg Tablet PO 02/13/25 08:59 75 mg DAILY TONY Administration Dextrose 0 gm 02/13/24 20:41 Dextrose 50% In Water 25 Gm/50 Ml Syringe IV-PUSH 02/12/25 20:40 PRN PRN Hypoglycemia Diclofenac Sodium 4 gm 02/13/24 22:00 02/15/24 09:12 Diclofenac Sodium 1% Gel 100 Gm Tube TOPICAL 02/12/25 21:59 4 gm QID TONY Administration Gabapentin 600 mg 02/13/24 21:30 02/13/24 22:29 Gabapentin 600 Mg Tablet PO 02/12/25 21:29 600 mg BID TONY Administration Gabapentin 200 mg 02/14/24 09:00 02/15/24 09:11 Gabapentin 100 Mg Capsule PO 02/13/25 08:59 200 mg BID TONY Administration Glucose 0 gm 02/13/24 20:41 Dextrose 40% Gel 15 Gm Tube PO 02/12/25 20:40 PRN PRN Hypoglycemia Heparin Sodium (Porcine) 5,000 unit 02/14/24 21:00 02/15/24 09:13 Heparin 5,000 Unit/Ml Vial SUBCUT 02/13/25 20:59 5,000 unit Q12HR TONY Administration Levofloxacin 750 mg in 150 mls @ 100 mls/hr 02/13/24 21:30 02/13/24 22:30 Levaquin IV 100 mls/hr Q48H TONY Administration Metronidazole 500 mg in 100 mls @ 100 mls/hr 02/13/24 22:00 02/15/24 06:08 Flagyl IV 100 mls/hr Q8H TONY Administration Magnesium Sulfate 2 gm in 50 mls @ 25 mls/hr 02/13/24 20:57 Magnesium Sulf 2gm-*Swfi* IV 02/12/25 20:56 DAILY PRN Magnesium Level < 1.5 Linezolid 600 mg in 300 mls @ 300 mls/hr 02/15/24 11:30 Zyvox IV Q12H TONY Insulin Aspart 0 units 02/13/24 22:00 02/15/24 09:12 Insulin Aspart 300 Units/3 Ml Insuln.Pen SUBCUT 02/12/25 21:59 3 units TID.WM.HS TONY Administration Protocol Metoclopramide HCl 5 mg 02/13/24 20:41 Metoclopramide 10 Mg/2 Ml Vial IV-PUSH 02/12/25 20:40 Q6H PRN Nausea/Vomiting Metoprolol Tartrate 12.5 mg 02/13/24 21:30 02/15/24 09:11 Metoprolol Tartrate 12.5 Mg Tablet PO 02/12/25 21:29 12.5 mg BID TONY Administration Metoprolol Tartrate 5 mg 02/13/24 20:44 Metoprolol Tartrate 5 Mg/5 Ml Vial IV-PUSH 02/12/25 20:43 Q4H PRN Blood Pressure Pantoprazole Sodium 40 mg 02/13/24 21:30 02/15/24 09:13 Pantoprazole 40 Mg Vial IV-PUSH 02/12/25 21:29 40 mg BID TONY Administration Ranolazine 500 mg 02/13/24 20:45 02/15/24 09:11 Ranolazine 500 Mg Tab.Er.12h PO 02/12/25 20:44 500 mg Q12H TONY Administration Sertraline HCl 100 mg 02/14/24 09:00 02/15/24 09:11 Sertraline 100 Mg Tablet PO 02/13/25 08:59 100 mg DAILY TONY Administration Sodium Chloride 0 ml 02/13/24 17:18 02/14/24 15:14 Sodium Chloride 0.9 % 10 Ml Syringe IV-PUSH 02/12/25 17:17 10 ml PRN PRN Administration Flush Sodium Chloride 0 ml 02/13/24 20:57 Sodium Chloride 0.9 % 10 Ml Syringe IV-PUSH 02/12/25 20:56 PRN PRN Flush Sodium Chloride 10 ml 02/13/24 20:57 02/13/24 22:29 Sodium Chloride 0.9 % 10 Ml Vial.Pf INJECTION 02/12/25 20:56 10 ml PRN PRN Administration Dilution Sodium Chloride 10 ml 02/13/24 20:57 Sodium Chloride 0.9 % 10 Ml Syringe IV-PUSH 02/12/25 20:56 PRN PRN Flush A&P - Hospitalist Assessment/Plan (1) Intractable nausea and vomiting: (2) Diarrhea: (3) Dehydration: (4) Diabetic neuropathy: (5) Diabetic retinopathy: (6) Diabetes mellitus with hyperglycemia: (7) CAD (coronary artery disease): (8) Acute respiratory failure with hypoxia: (9) Fever: (10) Morbid obesity with BMI of 50.0-59.9, adult: (11) Pickwickian syndrome: (12) Acute kidney injury: (13) Chronic HFrEF (heart failure with reduced ejection fraction): (14) CKD (chronic kidney disease) stage 3, GFR 30-59 ml/min: (15) Morbid obesity: (16) GERD (gastroesophageal reflux disease): Plan Plan: Discontinue hydration with IV fluids. Advance regular diet as tolerated. Continue supplemental oxygen as needed if O2 saturation is below 90 to 92% Continue insulin scale level 3 regimen. Continue IV Levaquin and IV Flagyl for possibility of diverticulitis or enterocolitis Add IV linezolid per infectious disease. Continue DVT prophylaxis Start PT/OT Hold home blood pressure medications such as amlodipine and metoprolol +++ +++ I discussed the case with the patient today and then later in the afternoon withthe at the bedside. I discussed the case with nephrology in person on rounds earlier in the day. I personally examined the patient on this day of [facility]. I reviewed the relevant history, performed the da silva elements of the physical examination, and coordinated the plan of care and I confirmed the resident's medical documentation as written. - - - Vincenzo Ragsdale DO. Internal Medicine + Hospitalist attending physician. Documented By: Vincenzo Ragsdale DO [id number] Signed By: <Electronically signed by Vincenzo Ragsdale DO> 02/15/24 [address] [facility] Work Phone: [phone]) 543-725104-18-2024 Consult note Author Ari Fernández [facility] February 15, 2024 12:07pm Note Date/Time February 15, 2024 11: 51am [facility] [address] [place] [address] Nephrology Consult Note Signed Patient: Namrata Jack MR#: [id number] : 1955 Acct:[id number] Age/Sex: 68 / F Adm Date: 4 Loc: Room: [address] [place] [address] Type: ADM IN Attending Dr: Vincenzo Ragsdale DO Copies to: MD Vincenzo Robles DO Robert L Hill, MD~ Providers Consult Date: 02/15/24 Requesting Provider: Vincenzo Ragsdale DO Primary Care Provider: Latrice Bergeron MD HPI Reason for Consult: JOY with creatinine up to 3.37 from 1.5 on admission History of Present Illness: Ms. Jack is a 68-year-old white female with PMH of CKD III, T2DM, diastolic heart failure with chronic edema on diuretics, mild aortic stenosis, CAD s/p 6 stents. Patient has baseline creatinine around 1.3 to 1.6 mg/dL over the last year with intermittent JOY related to diastolic CHF on diuretics. She did require Bumex drip during admission in April 2023 for volume overload. Patient was admitted on 02/12 with intractable nausea, vomiting and diarrhea that has been going on for the last 1 week. She had 2 ER visits with the same problem and she was prescribed Zofran during the previous visits however does not work for her and she has to come back to the ER. Patient had low-grade fever on admission 99.3 with peaked 100.4. Patient had generalized weakness and not ableto stand at home. Abdomen was diffusely tender. Patient had CT scan of the abdomen and pelvis without contrast on admission that was unremarkable. Urine analysis does not suggest UTI. COVID-19, flu and RSV were negative. Patient was started on IV fluid, 2 L/min oxygen and she was admitted for further evaluation. Creatinine admission was 1.5 mg/dL however creatinine continued to increase up to 3.37 mg/dL today despite IV hydration and holding amlodipine. 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 She is supposed to follow- up with renal clinic however she had multiple doctor appointments and shewas not able to do that. Creatinine has been variable between 1.5 to 1.8 mg/dL on diuretics. She had another hospitalization August 2023 with abdominal discomfort and vomiting and she was treated with Flagyl and Rocephin for what appears to be diverticulitis and she stated that she felt better. Patient is being seen and examined in room. She still has poor oral intake. She stated diarrhea has improved. I did review the CT scan of the abdomen that showed normal-sized kidneys with no hydronephrosis. Lab today showed sodium 126, potassium 3.9, carbon oxide 26, BUN 72 and creatinine 3.37. Urinalysis yesterday showed dark yellow urine, cloudy with specific gravity 1.019, 10-19 WBCs 3+ bacteria and 0- 8/ LPF hyaline cast. Urine culture and blood culture showed no growth for 1 day. Patient still has mild leukocytosis 16,000. Gastroenterology profile including C. difficile was send and still pending. Patient denies chest pain. She has mild shortness of breath that seems to be atbaseline. She has generalized weakness. No more fever or chills. No cough or expectoration. No hemoptysis. No hematuria, dysuria or frequency Review of Systems Review of Systems All other systems reviewed & are negative unless noted below or in HPI [facility] Medical History (Updated 02/15/24 @ 11:08 by Deep Eubanks MD) BMI 50.0-59.9, adult Presence of neurostimulator nonfunctioning Pickwickian syndrome Morbid obesity with BMI of 50.0-59.9, adult Neuropathy CAD (coronary artery disease) Morbid obesity Diverticulosis Diabetes mellitus HTN (hypertension) Osteoarthritis GERD (gastroesophageal reflux disease) Asthma allergy induced Surgical History Hx of neck surgery History of back surgery Hx of knee surgery Hx of cholecystectomy Hx of hysterectomy Hx of appendectomy Hx of heart artery stent X6 Family History Father CAD (coronary artery disease) AMI (acute myocardial infarction) Sister CAD (coronary artery disease) AMI (acute myocardial infarction) Sister CAD (coronary artery disease) AMI (acute myocardial infarction) Brother CAD (coronary artery disease) Father History of stroke [facility] Problem: Diagnosed with Stroke Heart disease Hypertension Diabetes Mother History of malignant neoplasm of cervix Cancer [facility] Problem: Diagnosed with Cancer Family history of mental disorder [facility] Problem: Diagnosed with Mental Illness Social History Smoking Status: Former smoker Tobacco Type: cigarettes Substance Use Type: None Meds Medications & Allergies Allergies Penicillins Allergy (Severe, Verified 02/13/24 17:20) Anaphylaxis Iodinated Contrast Media Allergy (Mild, Verified 02/13/24 17:20) Anaphylaxis Home Medications oxybutynin chloride 5 mg tablet 5 mg PO BID 01/20/18 [History Confirmed 02/13/24] zolpidem 5 mg tablet 5 mg PO HS PRN Insomnia 01/20/18 [History Confirmed 02/13/24] gabapentin 300 mg capsule 600 mg PO BID 02/24/18 [History Confirmed 02/13/24] cholecalciferol (vitamin D3) 50 mcg (2,000 unit) capsule 4,000 unit PO DAILY 06/01/19 [History Confirmed 02/13/24] clopidogrel 75 mg tablet (Plavix) 75 mg PO DAILY 06/01/19 [History Confirmed 02/13/24] cyclobenzaprine 10 mg tablet 10 mg PO TID PRN Spasms 06/01/19 [History Confirmed 02/13/24] potassium chloride 20 mEq tablet,extended release 20 meq PO DAILY #30 tabs 06/11/19 [Rx Confirmed 02/13/24] insulin detemir U-100 100 unit/mL subcutaneous solution (Levemir U-100 Insulin) 30 unit subcut DAILY 05/04/23 [History Confirmed 02/13/24] amlodipine 5 mg tablet 5 mg PO DAILY 08/31/23 [History Confirmed 02/13/24] ascorbic acid (vitamin C) 1,000 mg tablet (Vitamin C) 1,000 mg PO DAILY 08/31/23[History Confirmed 02/13/24] aspirin 81 mg tablet,delayed release 81 mg PO DAILY 08/31/23 [History Confirmed 02/13/24] hydrocodone 10 mg-acetaminophen 325 mg tablet 10 - 325 mg PO Q6H PRN Pain 08/31/23 [History Confirmed 02/13/24] insulin aspart U-100 100 unit/mL subcutaneous solution (Novolog U-100 Insulin aspart) 30 unit subcut TID.AC 08/31/23 [History Confirmed 02/13/24] insulin detemir U-100 100 unit/mL subcutaneous solution (Levemir U-100 Insulin) 30 unit subcut QHS 08/31/23 [History Confirmed 02/13/24] losartan 100 mg tablet 100 mg PO DAILY 08/31/23 [History Confirmed 02/13/24] metolazone 5 mg tablet 5 mg PO DAILY 08/31/23 [History Confirmed 02/13/24] metoprolol tartrate 25 mg tablet 12.5 mg PO BID 08/31/23 [History Confirmed 02/13/24] vitamin B complex 1 cap PO DAILY 08/31/23 [History Confirmed 02/13/24] polyethylene glycol 3350 17 gram oral powder packet (HealthyLax) 17 g PO BID #0 ea 09/05/23 [Rx Confirmed 02/13/24] furosemide 40 mg tablet 40 mg PO DAILY #30 tabs 09/06/23 [Rx Confirmed 02/13/24] ranolazine 500 mg tablet,extended release,12 hr 500 mg PO Q12H 11/30/23 [History Confirmed 02/13/24] sertraline 100 mg tablet 100 mg PO Q24H 11/30/23 [History Confirmed 02/13/24] spironolactone 25 mg tablet 25 mg PO DAILY 11/30/23 [History Confirmed 02/13/24] ondansetron HCl 4 mg tablet 4 mg PO Q8HR PRN nausea and vomiting 5 days #15 tabs02/13/24 [Rx Confirmed 02/13/24] Active Medications: Active Medications Acetaminophen (Acetaminophen 325 Mg Tablet) 650 mg PO Q4H PRN PRN Reason: Pain Scale 1 - 3 or fever Stop: 02/12/25 20:56 Hydrocodone Bitart/Acetaminophen (Hydrocodone/Acetaminophen 5-325 Mg Tablet) 1 tab PO Q4H PRN PRN Reason: Pain Scale 6 - 10 Last Admin: 02/15/24 09:11 Dose: 1 tab Amlodipine Besylate (Amlodipine 5 Mg Tablet) 5 mg PO DAILY TONY Stop: 02/13/25 08:59 Last Admin: 02/14/24 10:17 Dose: 5 mg Aspirin (Aspirin 81 Mg Tablet.Dr) 81 mg PO DAILY TONY Stop: 02/13/25 08:59 Last Admin: 02/15/24 09:11 Dose: 81 mg Balsam [place] Oil (Balsam Harriet/[place] Oil Oint 60 Gm Tube) 1 applic TOPICAL TID TONY Stop: 02/13/25 13:59 Last Admin: 02/14/24 21:56 Dose: Not Given Clopidogrel Bisulfate (Clopidogrel Bisulfate 75 Mg Tablet) 75 mg PO DAILY TONY Stop: 02/13/25 08:59 Last Admin: 02/15/24 09:11 Dose: 75 mg Dextrose (Dextrose 50% In Water 25 Gm/50 Ml Syringe) 0 gm IV-PUSH PRN PRN PRN Reason: Hypoglycemia Stop: 02/12/25 20:40 Diclofenac Sodium (Diclofenac Sodium 1% Gel 100 Gm Tube) 4 gm TOPICAL QID TONY Stop: 02/12/25 21:59 Last Admin: 02/15/24 09:12 Dose: 4 gm Gabapentin (Gabapentin 600 Mg Tablet) 600 mg PO BID TONY Stop: 02/12/25 21:29 Last Admin: 02/13/24 22:29 Dose: 600 mg Gabapentin (Gabapentin 100 Mg Capsule) 200 mg PO BID TONY Stop: 02/13/25 08:59 Last Admin: 02/15/24 09:11 Dose: 200 mg Glucose (Dextrose 40% Gel 15 Gm Tube) 0 gm PO PRN PRN PRN Reason: Hypoglycemia Stop: 02/12/25 20:40 Heparin Sodium (Porcine) (Heparin 5,000 Unit/Ml Vial) 5,000 unit SUBCUT Q12HR [facility] Stop: 02/13/25 20:59 Last Admin: 02/15/24 09:13 Dose: 5,000 unit Levofloxacin (Levaquin) 750 mg in 150 mls @ 100 mls/hr IV Q48H [facility] Last Admin: 02/13/24 22:30 Dose: 100 mls/hr Metronidazole (Flagyl) 500 mg in 100 mls @ 100 mls/hr IV Q8H [facility] Last Admin: 02/15/24 06:08 Dose: 100 mls/hr Magnesium Sulfate (Magnesium Sulf 2gm-*Swfi*) 2 gm in 50 mls @ 25 mls/hr IV DAILY PRN PRN Reason: Magnesium Level < 1.5 Stop: 02/12/25 20:56 Linezolid (Zyvox) 600 mg in 300 mls @ 300 mls/hr IV Q12H [facility] Insulin Aspart (Insulin Aspart 300 Units/3 Ml Insuln.Pen) 0 units SUBCUT TID.WM.HS [facility]; Protocol Stop: 02/12/25 21:59 Last Admin: 02/15/24 09:12 Dose: 3 units Metoclopramide HCl (Metoclopramide 10 Mg/2 Ml Vial) 5 mg IV-PUSH Q6H PRN PRN Reason: Nausea/Vomiting Stop: 02/12/25 20:40 Metoprolol Tartrate (Metoprolol Tartrate 12.5 Mg Tablet) 12.5 mg PO BID [facility] Stop: 02/12/25 21:29 Last Admin: 02/15/24 09:11 Dose: 12.5 mg Metoprolol Tartrate (Metoprolol Tartrate 5 Mg/5 Ml Vial) 5 mg IV-PUSH Q4H PRN PRN Reason: Blood Pressure Stop: 02/12/25 20:43 Pantoprazole Sodium (Pantoprazole 40 Mg Vial) 40 mg IV-PUSH BID [facility] Stop: 02/12/25 21:29 Last Admin: 02/15/24 09:13 Dose: 40 mg Ranolazine (Ranolazine 500 Mg Tab.Er.12h) 500 mg PO Q12H [facility] Stop: 02/12/25 20:44 Last Admin: 02/15/24 09:11 Dose: 500 mg Sertraline HCl (Sertraline 100 Mg Tablet) 100 mg PO DAILY [facility] Stop: 02/13/25 08:59 Last Admin: 02/15/24 09:11 Dose: 100 mg Sodium Chloride (Sodium Chloride 0.9 % 10 Ml Syringe) 0 ml IV-PUSH PRN PRN PRN Reason: Flush Stop: 02/12/25 17:17 Last Admin: 02/14/24 15:14 Dose: 10 ml Sodium Chloride (Sodium Chloride 0.9 % 10 Ml Syringe) 0 ml IV-PUSH PRN PRN PRN Reason: Flush Stop: 02/12/25 20:56 Sodium Chloride (Sodium Chloride 0.9 % 10 Ml Vial.Pf) 10 ml INJECTION PRN PRN PRN Reason: Dilution Stop: 02/12/25 20:56 Last Admin: 02/13/24 22:29 Dose: 10 ml Sodium Chloride (Sodium Chloride 0.9 % 10 Ml Syringe) 10 ml IV-PUSH PRN PRN PRN Reason: Flush Stop: 02/12/25 20:56 Exam Physical Exam Vital Signs: Temp Pulse Resp BP Pulse Ox O2 Del Method O2 Flow Rate 36.6 C 68 16 102/64 93 L Room Air 2 02/15/24 08:16 02/15/24 08:16 02/15/24 08:16 02/15/24 08:16 02/15/24 08:16 02/15/24 08:16 02/15/24 08:00 FiO2 21 02/14/24 23:00 Narrative: Constitutional: Morbidly obese, appears comfortable and not in distress HEENT: Mild pallor. No jaundice. Mucous membranes are moist Cardiovascular: Distant heart sound, RRR, normal S1-S2, no gallop or rub, No JVD Respiratory: Diminished breath sounds with no wheezes or crackles Gastrointestinal: Obese soft, non tender, positive bowel sounds. No palpable organs Extremities: 2+ chronic edema, legs and wraps. Patient has stasis dermatitis with questionable cellulitis Skin: No rashes or bruises Musculoskeletal: No joints swellings or inflammation Neurology: Awake, alert, oriented ?3, No focal motor or sensory deficits Psych: Normal mood and affect Results - Nephrology Labs 02/15/24 06:53 02/15/24 06:53 Labs: 02/14/24 02/14/24 02/15/24 15:00 17:55 06:53 BUN 60 H 72 H Creatinine 3.04 H 3.37 H Urine Color Dark yellow A Urine Appearance Cloudy A Urine pH 5.0 Ur Specific [place] 1.019 Urine Protein Negative Urine Glucose (UA) Normal Urine Ketones Negative Urine Occult Blood Negative Urine Nitrite Negative Ur Leukocyte Esterase 2+ H Urine RBC 3-4 Urine WBC 10-19 H Urine Bacteria 3+ H Abnormal lab results 3 02/14/24 02/14/24 02/15/24 Range/Units 15:00 17:55 06:53 Corrected WBC 15.7 H 16.9 H (3.8-11.6) X10E3/uL Uncorrected WBC Count 15.7 H 16.9 H (3.8-11.6) x10E3/uL RBC 3.51 L (3.60-5.00) X10E6/uL Hgb 11.0 L (11.8-15.4) g/dL Hct 32.6 L (34.0-46.4) % Band Neutrophils % 65 H 21 H (0-5) % Lymphocytes % 5 L 2 L (18-42) % Monocytes % 1 L (2-11) % Eosinophils % 0 L (1-3) % Metamyelocytes % 5 H (0-0) % Myelocytes % 1 H (0-0) % Segmented Neutrophils 21 L 74 H (50-70) % Sodium 127 L 126 L (136-145) mmol/L Chloride 90 L 89 L (98-107) mmol/L Anion Gap 17.7 H (6.0-15.0) mEq/L BUN 60 H 72 H (7-25) mg/dL Creatinine 3.04 H 3.37 H (0.60-1.20) mg/dL Glucose 166 H 153 H (70-100) mg/dL Calcium 8.4 L 8.4 L (8.6-10.3) mg/dL Urine Color Dark yellow A (Yellow) Urine Appearance Cloudy A (Clear) Urine Bilirubin 1+ H (Negative) Ur Leukocyte Esterase 2+ H (Negative) Urine WBC 10-19 H (0-4) /HPF Ur Squamous Epith Cells 5-9 H (0-2) /HPF Urine Bacteria 3+ H (None Seen) Urine Mucus 2+ A /LPF 02/14/24 17:55 Urine Culture - Preliminary Straight Catheter No Growth 1 Day 02/13/24 21:56 Blood Culture - Preliminary Blood - Left Hand No Growth 1 Day Imaging Chest x-ray: Imaging Reports Attestation: Image and/or report reviewed and findings are: Imaging Comments: 02/13/2024: Cardiomegaly with with possible pulmonary congestion Radiology Impressions Impressions - last 24 hours: Any impression(s) listed above is documentation that was entered by the reading physician into a diagnostic report(s) for Namrata Jack. I have reviewed the report(s) and am incorporating any findings in the treatment plan of this patient where applicable. ECG Data Attestation: I reviewed this ECG and interpreted as documented below: ECG Narrative: Normal sinus rhythm, minimal LVH criteria A&P - Nephrology Assessment/Plan (1) Acute kidney injury: Assessment/Problem Details: Patient presented with JOY with progressive rise of serum creatinine in setting of low blood pressure, nausea, vomiting and diarrhea. Patient on IV fluid however serum creatinine still rising. Patient has no Garrett catheter however itwas reported that she has multiple voids. Although JOY could be prerenal related to nausea and vomiting, patient may possibly had ATN by the time of admission and the creatinine continues to increase. Clinically she is euvolemicto mildly hypervolemic with history of CHF. Chest x-ray on admission also showed cardiomegaly with mild congestion. * CT scan of the abdomen without contrast on admission showed no evidence of hydronephrosis * Urine analysis showed no bacteriuria or significant proteinuria. No casts. * Furosemide, metolazone and spironolactone are on hold. (2) CKD (chronic kidney disease) stage 3, GFR 30-59 ml/min: Assessment/Problem Details: Patient has CKD stage III related to diabetes and atherosclerotic renovascular disease. Baseline creatinine variable between 1.5 to 1.8 mg/dL. (3) Hyponatremia: Assessment/Problem Details: Sodium is lower than 130 in the setting of JYO, nausea and vomiting. She looks hypovolemic as well at this point (4) Leukocytosis: Assessment/Problem Details: Patient has leukocytosis with abdominal tenderness on admission. * On empirical treatment with Levaquin and Flagyl for colitis * Patient was evaluated by ID and linezolid was added to cover possible left lower extremity cellulitis (5) Intractable nausea and vomiting: Assessment/Problem Details: Patient presented with nausea and vomiting, workup still pending. GI profile was sent. Patient on Flagyl and levofloxacin (6) BMI 50.0-59.9, adult: Plan * I agree with holding diuretics as stated above * Patient seems to be euvolemic to mildly hypervolemic. I will stop IV fluid to avoid recurrent CHF. Chest x-ray on admission already showed cardiomegaly with mild congestion * I agree with holding amlodipine at the blood pressure is low. Will stop metoprolol as well. * Will hold ranolazine especially in the setting of progressive rise of serum creatinine as it may cause hypotension and exacerbation of JOY * Recheck urine analysis and spot urine for sodium and creatinine * Plan to try diuretics tomorrow if serum creatinine continues to rise. Most likely patient has an element of ATN since blood pressure was low and currently has volume overload and mild CHF. * Monitor daily intake, output and renal panel I appreciate this consultation and will be happy to follow the patient with you during hospital stay. This document was dictated utilizing computerized voice recognition technology. Errors in grammar, spelling, and or syntax may be noted. The creator of this document does not proofread for this. Documented By: Ari Fernández MD 02/15/24 1132 Signed By: <Electronically signed by MD Ari Fernández> 02/15/24 [address] [facility] Work Phone: [phone]) 682-457104-18-2024 Consult note Author Deep Eubanks [facility] February 15, 2024 11:15am Note Date/Time February 15, 2024 11: 01am [facility] [address] [place] [address] Infect. Disease Consult Note Signed Patient: Namrata Jack MR#: [id number] : 1955 Acct:[id number] Age/Sex: 68 / F Adm Date: 4 Loc: Room: [address] [place] [address] Type: ADM IN Attending Dr: Vincenzo Ragsdale DO Copies to: DO Deep Mcdaniel MD Robert L Hill, MD~ HPI Data of Consult Consult date: 02/15/24 Requesting Physician: Vincenzo Ragsdale DO Primary Care Provider: Latrice Bergeron MD Consult Narrative History of present illness: Ms. Jack is a 68 year old female who is going to the ER on the and then came back to the ER due to continued symptoms. She had intractable nausea and vomiting along with diarrhea. She also had abdominal pain. CT scan done initial ER visit without acute findings. She is found of leukocytosis cultures were sent and remain negative to date. Empiric Levaquin and Flagyl started. Patient states her vomiting last occurred yesterday. She still had a loose bowel movement this morning. She has ongoing abdominal discomfort. She denies any sick contacts. She said she vomited about 6 times prior to coming emergencyroom. She states she is diabetic but overall her sugars are controlled okay at home. She was noted to be hyponatremic which is likely secondary to her nausea. White count however since coming to the hospital has climbed. Left shift seemsto be improving though that was present on admission despite white count going up. Chest x-ray shows findings with CHF without pneumonia consolidation etc. She remains on Levaquin and Flagyl. Her creatinine has worsened. Overall her lower extremities are also wrapped she states that she has skin changes and blisters. CC: Vincenzo Ragsdale DO Review of Systems Review of Systems All other systems reviewed & are negative unless noted below or in HPI [facility] Medical History (Updated 02/15/24 @ 11:08 by Deep Eubanks MD) BMI 50.0-59.9, adult Presence of neurostimulator nonfunctioning Pickwickian syndrome Morbid obesity with BMI of 50.0-59.9, adult Neuropathy CAD (coronary artery disease) Morbid obesity Diverticulosis Diabetes mellitus HTN (hypertension) Osteoarthritis GERD (gastroesophageal reflux disease) Asthma allergy induced Surgical History Hx of neck surgery History of back surgery Hx of knee surgery Hx of cholecystectomy Hx of hysterectomy Hx of appendectomy Hx of heart artery stent X6 Family History Father CAD (coronary artery disease) AMI (acute myocardial infarction) Sister CAD (coronary artery disease) AMI (acute myocardial infarction) Sister CAD (coronary artery disease) AMI (acute myocardial infarction) Brother CAD (coronary artery disease) Father History of stroke [facility] Problem: Diagnosed with Stroke Heart disease Hypertension Diabetes Mother History of malignant neoplasm of cervix Cancer [facility] Problem: Diagnosed with Cancer Family history of mental disorder [facility] Problem: Diagnosed with Mental Illness Social History Smoking Status: Former smoker Tobacco Type: cigarettes Substance Use Type: None Allergies and Medications Allergies and Active Meds Allergies Penicillins Allergy (Severe, Verified 02/13/24 17:20) Anaphylaxis Iodinated Contrast Media Allergy (Mild, Verified 02/13/24 17:20) Anaphylaxis Active Medications Acetaminophen (Acetaminophen 325 Mg Tablet) 650 mg PO Q4H PRN PRN Reason: Pain Scale 1 - 3 or fever Stop: 02/12/25 20:56 Hydrocodone Bitart/Acetaminophen (Hydrocodone/Acetaminophen 5-325 Mg Tablet) 1 tab PO Q4H PRN PRN Reason: Pain Scale 6 - 10 Last Admin: 02/15/24 09:11 Dose: 1 tab Amlodipine Besylate (Amlodipine 5 Mg Tablet) 5 mg PO DAILY TONY Stop: 02/13/25 08:59 Last Admin: 02/14/24 10:17 Dose: 5 mg Aspirin (Aspirin 81 Mg Tablet.Dr) 81 mg PO DAILY TONY Stop: 02/13/25 08:59 Last Admin: 02/15/24 09:11 Dose: 81 mg Balsam Harriet/Altoona Oil (Balsam Harriet/[place] Oil Oint 60 Gm Tube) 1 applic TOPICAL TID TONY Stop: 02/13/25 13:59 Last Admin: 02/14/24 21:56 Dose: Not Given Clopidogrel Bisulfate (Clopidogrel Bisulfate 75 Mg Tablet) 75 mg PO DAILY TONY Stop: 02/13/25 08:59 Last Admin: 02/15/24 09:11 Dose: 75 mg Dextrose (Dextrose 50% In Water 25 Gm/50 Ml Syringe) 0 gm IV-PUSH PRN PRN PRN Reason: Hypoglycemia Stop: 02/12/25 20:40 Diclofenac Sodium (Diclofenac Sodium 1% Gel 100 Gm Tube) 4 gm TOPICAL QID TONY Stop: 02/12/25 21:59 Last Admin: 02/15/24 09:12 Dose: 4 gm Gabapentin (Gabapentin 600 Mg Tablet) 600 mg PO BID TONY Stop: 02/12/25 21:29 Last Admin: 02/13/24 22:29 Dose: 600 mg Gabapentin (Gabapentin 100 Mg Capsule) 200 mg PO BID TONY Stop: 02/13/25 08:59 Last Admin: 02/15/24 09:11 Dose: 200 mg Glucose (Dextrose 40% Gel 15 Gm Tube) 0 gm PO PRN PRN PRN Reason: Hypoglycemia Stop: 02/12/25 20:40 Heparin Sodium (Porcine) (Heparin 5,000 Unit/Ml Vial) 5,000 unit SUBCUT Q12HR TONY Stop: 02/13/25 20:59 Last Admin: 02/15/24 09:13 Dose: 5,000 unit Potassium Chloride 20 meq/ (Lactated Ringer's) 1,010 mls @ 150 mls/hr IV .Q6H44M TONY Stop: 02/12/25 21:44 Last Admin: 02/15/24 09:11 Dose: 150 mls/hr Levofloxacin (Levaquin) 750 mg in 150 mls @ 100 mls/hr IV Q48H [facility] Last Admin: 02/13/24 22:30 Dose: 100 mls/hr Metronidazole (Flagyl) 500 mg in 100 mls @ 100 mls/hr IV Q8H [facility] Last Admin: 02/15/24 06:08 Dose: 100 mls/hr Magnesium Sulfate (Magnesium Sulf 2gm-*Swfi*) 2 gm in 50 mls @ 25 mls/hr IV DAILY PRN PRN Reason: Magnesium Level < 1.5 Stop: 02/12/25 20:56 Insulin Aspart (Insulin Aspart 300 Units/3 Ml Insuln.Pen) 0 units SUBCUT TID.[facility]; Protocol Stop: 02/12/25 21:59 Last Admin: 02/15/24 09:12 Dose: 3 units Metoclopramide HCl (Metoclopramide 10 Mg/2 Ml Vial) 5 mg IV-PUSH Q6H PRN PRN Reason: Nausea/Vomiting Stop: 02/12/25 20:40 Metoprolol Tartrate (Metoprolol Tartrate 12.5 Mg Tablet) 12.5 mg PO BID [facility] Stop: 02/12/25 21:29 Last Admin: 02/15/24 09:11 Dose: 12.5 mg Metoprolol Tartrate (Metoprolol Tartrate 5 Mg/5 Ml Vial) 5 mg IV-PUSH Q4H PRN PRN Reason: Blood Pressure Stop: 02/12/25 20:43 Pantoprazole Sodium (Pantoprazole 40 Mg Vial) 40 mg IV-PUSH BID [facility] Stop: 02/12/25 21:29 Last Admin: 02/15/24 09:13 Dose: 40 mg Ranolazine (Ranolazine 500 Mg Tab.Er.12h) 500 mg PO Q12H [facility] Stop: 02/12/25 20:44 Last Admin: 02/15/24 09:11 Dose: 500 mg Sertraline HCl (Sertraline 100 Mg Tablet) 100 mg PO DAILY [facility] Stop: 02/13/25 08:59 Last Admin: 02/15/24 09:11 Dose: 100 mg Sodium Chloride (Sodium Chloride 0.9 % 10 Ml Syringe) 0 ml IV-PUSH PRN PRN PRN Reason: Flush Stop: 02/12/25 17:17 Last Admin: 02/14/24 15:14 Dose: 10 ml Sodium Chloride (Sodium Chloride 0.9 % 10 Ml Syringe) 0 ml IV-PUSH PRN PRN PRN Reason: Flush Stop: 02/12/25 20:56 Sodium Chloride (Sodium Chloride 0.9 % 10 Ml Vial.Pf) 10 ml INJECTION PRN PRN PRN Reason: Dilution Stop: 02/12/25 20:56 Last Admin: 02/13/24 22:29 Dose: 10 ml Sodium Chloride (Sodium Chloride 0.9 % 10 Ml Syringe) 10 ml IV-PUSH PRN PRN PRN Reason: Flush Stop: 02/12/25 20:56 Exam Physical Exam Vital Signs: Vital Signs Temp Pulse Resp BP Pulse Ox O2 Del Method O2 Flow Rate 02/15/24 08:16 97.8 F 68 16 102/64 93 L Room Air 02/15/24 08:00 Nasal Cannula 2 02/15/24 08:00 Room Air 02/15/24 04:00 97.9 F 70 16 142/69 H 97 Nasal Cannula 2 02/15/24 00:00 97.5 F L 70 16 114/65 94 L Nasal Cannula 2 02/15/24 00:00 Nasal Cannula 2 02/14/24 23:00 66 15 93 L 02/14/24 20:00 Nasal Cannula 2 02/14/24 20:00 98.1 F 67 14 122/69 97 Nasal Cannula 2 02/14/24 18:48 97.6 F 68 16 120/60 97 Nasal Cannula 2 02/14/24 16:00 Nasal Cannula 2 02/14/24 14:36 Nasal Cannula 2 02/14/24 12:00 97.5 F L 68 16 90/46 L 96 Room Air 2 FiO2 02/15/24 08:16 02/15/24 08:00 02/15/24 08:00 02/15/24 04:00 02/15/24 00:00 02/15/24 00:00 02/14/24 23:00 21 02/14/24 20:00 02/14/24 20:00 02/14/24 18:48 02/14/24 16:00 02/14/24 14:36 02/14/24 12:00 Intake and Output 04/17/24 04/18/24 04/18/24 23:59 07:59 15:59 Intake Total 1810 / 2920 1010 / 1010 Output Total 425 / 425 Balance 1385 / 2495 1010 / 1010 Intake: IV 1210 / 2320 1010 / 1010 Potassium Chloride Pf 20 meq In 1009 1010 / 1010 Lactated Ringers 1,000 ml @ 150 mls/hr IV .Q6H44M TONY Rx#: [id number] metroNIDAZOLE 500MG-*NS* 500 mg 200 / 300 In 100 ml @ 100 mls/hr IV Q8H TONY Rx#:[id number] Oral 600 / 600 Output: Urine Amount (Catheter) 425 / 425 Straight 425 / 425 Other: # Incontinent Voids 1 # Bowel Movements 0 0 Weight 332 lb 7.313 oz Date of Last Bowel Movement 02/12/24 02/12/24 Patient Weight 02/15/24 23:59 Weight 332 lb 7.313 oz Const General: uncomfortable (Complaining of abdominal pain) Orientation: oriented x3 HEENT Head: normal to inspection Ears: hearing grossly normal bilaterally Mouth: oral mucosae normal Eyes General: appearance normal, both eyes and all related structures Neck Neck: normal visual inspection Chest Chest palpation & inspection: normal inspection of the chest Resp Effort & Inspection: normal respiratory effort Auscultation: clear to auscultation bilaterally Cardio Palpation: normal PMI Rate: regular rate Rhythm: regular rhythm GI Inspection: normal to inspection Palpation: soft and tender in the epigastrum, in the LLQ, in the RLQ and with norebound tenderness Auscultation: normal bowel sounds Skin General: other (Finding changes over the lower extremity consistent with stasis dermatitis ) Other: Warmth noted over the left lower extremity with more skin involvement here mild cellulitis. Extrem General: abnormal to inspection (see skin) Results - Infectious Disease Labs 02/15/24 06:53 02/15/24 06:53 Labs: 02/14/24 15:00: Corrected WBC 15.7 H, Uncorrected WBC Count 15.7 H, BUN 60 H, Creatinine 3.04 H 02/15/24 06:53: Corrected WBC 16.9 H, Uncorrected WBC Count 16.9 H, BUN 72 H, Creatinine 3.37 H Laboratory Tests 02/13/24 02/13/2402/13/24 02:02 18:30 06:45 Corrected WBC 14.9 H 4.7 13.9 H 02/14/24 02/15/24 15:00 06:53 Corrected WBC 15.7 H 16.9 H 02/14/24 17:55 Urine Color Dark yellow A Urine Appearance Cloudy A Urine pH 5.0 Ur Specific [place] 1.019 Urine Protein Negative Urine Glucose (UA) Normal Urine Ketones Negative Urine Occult Blood Negative Urine Nitrite Negative Urine Bilirubin 1+ H Urine Urobilinogen Normal Ur Leukocyte Esterase 2+ H Urine RBC 3-4 Urine WBC 10-19 H Ur Squamous Epith Cells 5-9 H Urine Bacteria 3+ H Hyaline Casts 0-8 Urine Mucus 2+ A Urine Yeast None seen Microbiology Results Microbiology Narrative: 02/14/24 17:55 Urine Culture - Preliminary Straight Catheter No Growth 1 Day 02/13/24 21:56 Blood Culture - Preliminary Blood - Left Hand No Growth 1 Day 02/13/24 21:46 Blood Culture - Pending Blood - Left Arm Imaging and Cardiology Status: report viewed by me Results Comments: CT: IMPRESSION: No bowel obstruction or obstructive uropathy. No acute intra-abdominal pathology. A&P - Infectious Disease (1) Leukocytosis: (2) Intractable nausea and vomiting: (3) Diarrhea: (4) Venous stasis ulcers of both lower extremities: Plan Patient currently on Levaquin and Flagyl for empiric coverage for enterocolitis or diverticulitis. CT scan 02/12 without acute findings or mention of any specific bowel pathology. This however was done without contrast. Patient endorses ongoing abdominal discomfort. Will send lipase as well as stool for C.difficile and gastrointestinal profile given patient's presenting symptoms. It appears a gastrointestinal profile was ordered on admission but still remains uncollected. To date blood cultures and urine cultures remain negative. Will add linezolid to cover for potential cellulitis of the lower extremity. Patient's creatinine is notably worse. Patient states her vomiting that was better she did have a loose bowel movement last night that was small. Given patient's ongoing abdominal pain there could be a degree of reactivity causing her white count to remain elevated and climb a little bit as well. Her left shift however with the bands do not show that these are improving. Therefore maintaining Levaquin and Flagyl with the addition of Linezolid to cover left lower extremity cellulitis will be planned. Documented By: Deep Eubanks MD 02/15/24 1057 Signed By: <Electronically signed by MD Deep Eubanks> 02/15/24 1115 [facility] Work Phone: [phone] 281-167504-17-2024 Progress note Author Vincenzo Ragsdale [facility] February 14, 2024 5:25pm Note Date/Time February 14, 2024 2:5 5pm [facility] [address] [place] [address] Hospitalist Progress Note Signed Patient: Namrata Jack MR#: [id number] : 1955 Acct:[id number] Age/Sex: 68 / F Adm Date: 4 Loc: Room: [address] [place] [address] Type: ADM IN Attending Dr: Vincenzo Ragsdale DO Copies to: ~ Date of Service: 02/14/2024 Subjective Subjective Narrative: Patient is seen and evaluated on the floor. Patient states she is still feelingvery bad. She describes her current symptoms as nauseous, abdominal pain, and overall weakness. She states she had similar symptoms back in 2009 when she took a trip to [place]. She does not remember being hospitalized for that experience. Patient states she is no longer vomiting or having diarrhea. The abdominal pain is described as severe and that her stomach is flipped to the right side . She is having some shortness of breath at rest. She states this is out of the ordinary for her. She usually has shortness of breath when movingbut never at rest. She did not get any sleep last night as she could not get comfortable. Her appetite is still decreased significantly, but she is able to keep her medications down. She denies feverish symptoms, chest pain, racing heart, and chest tightness. Exam Physical Exam Vital Signs: Temp Pulse Resp BP Pulse Ox O2 Del Method O2 Flow Rate 98.2 F 98 20 106/64 95 Nasal Cannula 2 02/14/24 08:00 02/14/24 08:00 02/14/24 08:00 02/14/24 08:00 02/14/24 08:00 02/14/24 08:00 02/14/24 08:00 Narrative: General: Patient is cooperative but does appear in distress throughout exam. Itseems like even talking causes her discomfort. Pulmonary: Lungs clear to auscultation bilaterally without wheezes, rales, rhonchi. Cardiac: Heart rate and rhythm regular without murmurs, rubs, gallops. Abdomen: Soft, but tenderness to palpation all over. No specific spot more tender than the others. Bowel sounds decreased x 4 Extremities: Both legs wrapped in Lisa wrap. Objective Lab Results 02/14/24 15:00 02/14/24 15:00 Meds Allergies and Active Meds Allergies Penicillins Allergy (Severe, Verified 02/13/24 17:20) Anaphylaxis Iodinated Contrast Media Allergy (Mild, Verified 02/13/24 17:20) Anaphylaxis Active Meds: Active Medications Generic Name Dose Route Start Last Admin Trade Name Freq PRN Reason Stop Dose Admin Acetaminophen 650 mg 02/13/24 20:57 Acetaminophen 325 Mg Tablet PO 02/12/25 20:56 Q4H PRN Pain Scale 1 - 3 or fever Hydrocodone Bitart/Acetaminophen 1 tab 02/14/24 00:20 02/14/24 09:48 Hydrocodone/Acetaminophen 5-325 Mg Tablet PO 1 tab Q4H PRN Administration Pain Scale 6 - 10 Amlodipine Besylate 5 mg 02/14/24 09:00 02/14/24 10:17 Amlodipine 5 Mg Tablet PO 02/13/25 08:59 5 mg DAILY TONY Administration Aspirin 81 mg 02/14/24 09:00 02/14/24 09:48 Aspirin 81 Mg Tablet. PO 02/13/25 08:59 81 mg DAILY TONY Administration Balsam Harriet/[place] Oil 1 applic 02/14/24 14:00 Balsam [place] Oil Oint 60 Gm Tube TOPICAL 02/13/25 13:59 TID TONY Clopidogrel Bisulfate 75 mg 02/14/24 09:00 02/14/24 09:50 Clopidogrel Bisulfate 75 Mg Tablet PO 02/13/25 08:59 75 mg DAILY TONY Administration Dextrose 0 gm 02/13/24 20:41 Dextrose 50% In Water 25 Gm/50 Ml Syringe IV-PUSH 02/12/25 20:40 PRN PRN Hypoglycemia Diclofenac Sodium 4 gm 02/13/24 22:00 02/13/24 22:30 Diclofenac Sodium 1% Gel 100 Gm Tube TOPICAL 02/12/25 21:59 Not Given QID TONY Gabapentin 600 mg 02/13/24 21:30 02/13/24 22:29 Gabapentin 600 Mg Tablet PO 02/12/25 21:29 600 mg BID TONY Administration Gabapentin 200 mg 02/14/24 09:00 02/14/24 09:52 Gabapentin 100 Mg Capsule PO 02/13/25 08:59 200 mg BID TONY Administration Glucose 0 gm 02/13/24 20:41 Dextrose 40% Gel 15 Gm Tube PO 02/12/25 20:40 PRN PRN Hypoglycemia Heparin Sodium (Porcine) 5,000 unit 02/13/24 22:00 02/14/24 05:05 Heparin 5,000 Unit/Ml Vial SUBCUT 02/12/25 21:59 5,000 unit Q8HR TONY Administration Potassium Chloride 20 meq/ 1,010 mls @ 150 mls/hr 02/13/24 21:45 02/14/24 09:51 Lactated Ringer's IV 02/12/25 21:44 150 mls/hr .Q6H44M TONY Infusion Levofloxacin 750 mg in 150 mls @ 100 mls/hr 02/13/24 21:30 02/13/24 22:30 Levaquin IV 100 mls/hr Q48H TONY Administration Metronidazole 500 mg in 100 mls @ 100 mls/hr 02/13/24 22:00 02/14/24 05:06 Flagyl IV 100 mls/hr Q8H TONY Administration Magnesium Sulfate 2 gm in 50 mls @ 25 mls/hr 02/13/24 20:57 Magnesium Sulf 2gm-*Swfi* IV 02/12/25 20:56 DAILY PRN Magnesium Level < 1.5 Magnesium Sulfate 4 gm in 100 mls @ 25 mls/hr 02/14/24 08:27 02/14/24 09:51 Magnesium Sulf 4 Gm-*Swfi* IV 02/14/24 12:26 25 mls/hr ONCE ONE Administration Insulin Aspart 0 units 02/13/24 22:00 02/14/24 09:47 Insulin Aspart 300 Units/3 Ml Insuln.Pen SUBCUT 02/12/25 21:59 Not Given TID.WM.[facility] Protocol Metoclopramide HCl 5 mg 02/13/24 20:41 Metoclopramide 10 Mg/2 Ml Vial IV-PUSH 02/12/25 20:40 Q6H PRN Nausea/Vomiting Metoprolol Tartrate 12.5 mg 02/13/24 21:30 02/14/24 09:50 Metoprolol Tartrate 12.5 Mg Tablet PO 02/12/25 21:29 12.5 mg BID TONY Administration Metoprolol Tartrate 5 mg 02/13/24 20:44 Metoprolol Tartrate 5 Mg/5 Ml Vial IV-PUSH 02/12/25 20:43 Q4H PRN Blood Pressure Pantoprazole Sodium 40 mg 02/13/24 21:30 02/14/24 09:50 Pantoprazole 40 Mg Vial IV-PUSH 02/12/25 21:29 40 mg BID TONY Administration Ranolazine 500 mg 02/13/24 20:45 02/14/24 09:50 Ranolazine 500 Mg Tab.Er.12h PO 02/12/25 20:44 500 mg Q12H TONY Administration Sertraline HCl 100 mg 02/14/24 09:00 02/14/24 09:48 Sertraline 100 Mg Tablet PO 02/13/25 08:59 100 mg DAILY TONY Administration Sodium Chloride 0 ml 02/13/24 17:18 02/14/24 09:50 Sodium Chloride 0.9 % 10 Ml Syringe IV-PUSH 02/12/25 17:17 10 ml PRN PRN Administration Flush Sodium Chloride 0 ml 02/13/24 20:57 Sodium Chloride 0.9 % 10 Ml Syringe IV-PUSH 02/12/25 20:56 PRN PRN Flush Sodium Chloride 10 ml 02/13/24 20:57 02/13/24 22:29 Sodium Chloride 0.9 % 10 Ml Vial.Pf INJECTION 02/12/25 20:56 10 ml PRN PRN Administration Dilution Sodium Chloride 10 ml 02/13/24 20:57 Sodium Chloride 0.9 % 10 Ml Syringe IV-PUSH 02/12/25 20:56 PRN PRN Flush A&P - Hospitalist Assessment/Plan (1) Intractable nausea and vomiting: (2) Diarrhea: (3) Dehydration: (4) Diabetic neuropathy: (5) Diabetic retinopathy: (6) Diabetes mellitus with hyperglycemia: (7) CAD (coronary artery disease): (8) Acute respiratory failure with hypoxia: (9) Fever: (10) Morbid obesity with BMI of 50.0-59.9, adult: (11) Pickwickian syndrome: Plan Plan: Continue gentle hydration with IV fluids. Advance bland diet as tolerated. Continue supplemental oxygen as needed if O2 saturation is below 90 to 92% Collect stool cultures if she has a bout of diarrhea. Order urinalysis due to urine retention. Blood cultures ordered and pending. Continue insulin scale level 3 regimen. Continue IV Levaquin and IV Flagyl for possibility of diverticulitis or enterocolitis Continue DVT prophylaxis +++ +++ I discussed the case with wound care today with wound care nurse. I personally examined the patient on this day of the encounter. I reviewed the relevant history, performed the da silva elements of the physical examination, and coordinatedthe plan of care and I confirmed the resident's medical documentation as written. - - - Vincenzo Ragsdale DO. Internal Medicine + Hospitalist attending physician. Documented By: Vincenzo Ragsdale DO [id number] Signed By: <Electronically signed by Vincenzo Ragsdale DO> 02/14/24 [id number] [facility] Work Phone: [phone] 430-123504-16-2024 History and physical note Author Vincenzo Ragsdale [facility] February 13, 2024 8:57pm Note Date/Time February 13, 2024 8:4 7pm [facility] [address] [place] [address] Hospitalist H&P Signed Patient: Namrata Jack MR#: [id number] : 1955 Acct:[id number] Age/Sex: 68 / F Adm Date: 4 Loc: Room: [address] [place] [address] Type: ADM IN Attending Dr: Vincenzo Ragsdale DO Copies to: DO Latrice Mcdaniel MD~ HPI DATE OF EXAMINATION: 02/13/24 CHIEF COMPLAINT: non-stop nausea, vomiting, and diarrhrea. HISTORY OF PRESENT ILLNESS: This is a 68-year-old woman who has now had 2 ER visits in less than 24 hours due to intractable nausea and vomiting along with diarrhea. She said that all of her problems started yesterday and the vomiting started suddenly. She had large profuse amounts of vomiting. She came to the emergencyroom. A CT scan was done in emergency room which showed no acute problems. Shewas medicated and apparently wanted to go home. It seems that at home she took 2 doses of Zofran but has been at home having vomiting all day today. She also describes that in beginning from when she came to the emergency room yesterday she was having a tremendous amount of diarrhea. The emergency room physicians notes from around midnight last night described her as being diffusely tender all over which is the reason that the CT scan of the abdomen pelvis was done. Urinalysis on that visit was perfectly normal. On her repeat visit here swab for COVID and influenza and RSV is negative. She did begin spiking a temperature of 99.3 and then 100.4. She received Tylenol and Zofran and a liter of IV fluids. She received morphine which seems to causerespiratory sedation that she has had to be placed on 2 L oxygen by nasal cannula. The patient tells me that she does not believe that she has any sleep apnea. 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 She says that her has sleep apnea, and uses his machine but she has never needed a machine and she has never needed supplemental oxygen. She is extremely weak. One of the main reasons for admission is that the patient just does not have the strength to stand or walk at all. In the ER whenI come to room the bedside nurses try to get her to sign her admission consent as she is so weak and people that she cannot sign this form. It is clear that she would not have the strength even try and stand up out of bed at this time. Fortunately she says that the pain in her belly is better than it was last nightand she has been able to take sips of liquids. Despite all the vomiting at homeshe believes that she was able to keep down all of her routine medications. She was in the hospital for something similar in August of 2023, and she stayed for about a week and was treated with Flagyl and Rocephin out of concern for possible diverticulitis. Of note her lab work portends worsening diarrhea and hydration leading to the risk of acute kidney injury and worsening hyponatremia. Her white blood count last night was 14.9 but today it is much lower at 4.7. Her monocyte distribution width, and early marker for bacterial infection has gone from a high 29.27 up to an astonishingly high at 44.14. Her sodium dropped in this 15-hour timeframe from 136 down to 129. And her BUN is risen from 40-43 and her serum creatinine is risen from a baseline of 1.29 up to 1.57 last night and then1.81 today. Review of Systems Review of Systems Review of systems: 10 systems are reviewed and are negative except as mentioned elsewhere in the documentation. [facility] Medical History (Updated 02/13/24 @ 20:53 by Vincenzo Ragsdale DO) BMI 50.0-59.9, adult Presence of neurostimulator nonfunctioning Pickwickian syndrome Morbid obesity with BMI of 50.0-59.9, adult Neuropathy CAD (coronary artery disease) Morbid obesity Diverticulosis Diabetes mellitus HTN (hypertension) Osteoarthritis GERD (gastroesophageal reflux disease) Asthma allergy induced Surgical History Hx of neck surgery History of back surgery Hx of knee surgery Hx of cholecystectomy Hx of hysterectomy Hx of appendectomy Hx of heart artery stent X6 Family History Father CAD (coronary artery disease) AMI (acute myocardial infarction) Sister CAD (coronary artery disease) AMI (acute myocardial infarction) Sister CAD (coronary artery disease) AMI (acute myocardial infarction) Brother CAD (coronary artery disease) Father [facility]: Diagnosed with Stroke Heart disease Hypertension Diabetes Mother History of malignant neoplasm of cervix [facility] Problem: Diagnosed with Cancer Family history of mental disorder [facility]: Diagnosed with Mental Illness Social History Smoking Status: Never smoker Substance Use Type: None Meds Medications and Allergies Allergies Penicillins Allergy (Severe, Verified 02/13/24 17:20) Anaphylaxis Iodinated Contrast Media Allergy (Mild, Verified 02/13/24 17:20) Anaphylaxis Home Medications oxybutynin chloride 5 mg tablet 5 mg PO BID 01/20/18 [History Confirmed 02/13/24] zolpidem 5 mg tablet 5 mg PO HS PRN Insomnia 01/20/18 [History Confirmed 02/13/24] gabapentin 300 mg capsule 600 mg PO BID 02/24/18 [History Confirmed 02/13/24] cholecalciferol (vitamin D3) 50 mcg (2,000 unit) capsule 4,000 unit PO DAILY 06/01/19 [History Confirmed 02/13/24] clopidogrel 75 mg tablet (Plavix) 75 mg PO DAILY 06/01/19 [History Confirmed 02/13/24] cyclobenzaprine 10 mg tablet 10 mg PO TID PRN Spasms 06/01/19 [History Confirmed 02/13/24] potassium chloride 20 mEq tablet,extended release 20 meq PO DAILY #30 tabs 06/11/19 [Rx Confirmed 02/13/24] insulin detemir U-100 100 unit/mL subcutaneous solution (Levemir U-100 Insulin) 50 unit subcut DAILY 05/04/23 [History Confirmed 12/21/23] amlodipine 5 mg tablet 5 mg PO BID 08/31/23 [History Confirmed 02/13/24] ascorbic acid (vitamin C) 1,000 mg tablet (Vitamin C) 1,000 mg PO DAILY 08/31/23[History Confirmed 02/13/24] aspirin 81 mg tablet,delayed release 81 mg PO DAILY 08/31/23 [History Confirmed 02/13/24] hydrocodone 10 mg-acetaminophen 325 mg tablet 10 - 325 mg PO Q6H PRN Pain 08/31/23 [History Confirmed 02/13/24] insulin aspart U-100 100 unit/mL subcutaneous solution (Novolog U-100 Insulin aspart) 30 unit subcut TID.AC 08/31/23 [History Confirmed 02/13/24] insulin detemir U-100 100 unit/mL subcutaneous solution (Levemir U-100 Insulin) 30 unit subcut QHS 08/31/23 [History Confirmed 02/13/24] losartan 100 mg tablet 100 mg PO DAILY 08/31/23 [History Confirmed 02/13/24] metolazone 5 mg tablet 5 mg PO DAILY 08/31/23 [History Confirmed 02/13/24] metoprolol tartrate 25 mg tablet 12.5 mg PO BID 08/31/23 [History Confirmed 02/13/24] vitamin B complex 1 cap PO DAILY 08/31/23 [History Confirmed 02/13/24] polyethylene glycol 3350 17 gram oral powder packet (HealthyLax) 17 g PO BID #0 ea 09/05/23 [Rx Confirmed 02/13/24] furosemide 40 mg tablet 40 mg PO DAILY #30 tabs 09/06/23 [Rx Confirmed 02/13/24] ranolazine 500 mg tablet,extended release,12 hr 500 mg PO Q12H 11/30/23 [History Confirmed 02/13/24] sertraline 100 mg tablet 100 mg PO Q24H 11/30/23 [History Confirmed 02/13/24] spironolactone 25 mg tablet 25 mg PO DAILY 11/30/23 [History Confirmed 02/13/24] ondansetron HCl 4 mg tablet 4 mg PO Q8HR PRN nausea and vomiting 5 days #15 tabs02/13/24 [Rx Confirmed 02/13/24] Exam Physical Exam Vital Signs: Temp Pulse Resp BP Pulse Ox O2 Del Method O2 Flow Rate 100.4 F H 90 18 164/80 H 93 L Nasal Cannula 2 02/13/24 19:28 02/13/24 20:15 02/13/24 20:15 02/13/24 20:15 02/13/24 20:15 02/13/24 20:15 02/13/24 20:15 Narrative: GEN: Profoundly weak and malaised and needs help from the nurse to sign Admission Department needs help for me to hold a cup to her lips so that she candrink sips of water with a straw. Head: Normal Cephalic, Atraumatic. Eyes: Conjunctiva and sclera clear bilaterally. Nose: External nose and nares normal bilaterally. Mouth: Lips and tongue normal. No erythema in the posterior oropharynx. No thrush on the tongue. Neck: No JVD. No thyromegaly. No lymphadenopathy. Lungs: Clear to auscultation bilaterally, no wheezing, no crackles. Heart: Regular rate and rhythm, no murmurs, rubs, or gallops. Abdomen: Soft, and really does not have any tenderness to palpation of my examination. Auscultation bowel sounds are very hypoactive. Extremities: She does have chronic 2+ pitting edema from her knees down to her ankles bilaterally with resultant chronic venous stasis changes in the bottom half of her legs. Skin: Rest of her body has no systemic rashes or lesions. Psychiatric: Calm. Conversant. Cooperative. Results - Hospitalist H&P Lab Results Labs: Laboratory Last Values Corrected WBC 4.7 X10E3/uL (3.8-11.6) 02/13/24 18:30 Uncorrected WBC Count 4.7 x10E3/uL (3.8-11.6) 02/13/24 18:30 RBC 4.80 X10E6/uL (3.60-5.00) 02/13/24 18:30 Hgb 15.2 g/dL (11.8-15.4) 02/13/24 18:30 Hct 44.8 % (34.0-46.4) 02/13/24 18:30 MCV 93.3 fl (80-100) 02/13/24 18:30 MCH 31.6 pg (24.7-34.3) 02/13/24 18:30 MCHC 33.9 g/dL (32.0-35.0) 02/13/24 18:30 RDW 13.9 % (11.9-15.3) 02/13/24 18:30 Plt Count 304 x10E3/uL (150-450) 02/13/24 18:30 MPV 7.4 fl (6.3-10.7) 02/13/24 18:30 Neut % (Auto) 83.3 % (.) 02/13/24 18:30 Lymph % (Auto) 11.6 % (.) 02/13/24 18:30 Mesa % (Auto) 4.8 % (.) 02/13/24 18:30 Eos % (Auto) 0.1 % (.) 02/13/24 18:30 Baso % (Auto) 0.2 % (.) 02/13/24 18:30 Nucleat RBC Rel Count 0.1 /100 WBC (0-0.5) 02/13/24 18:30 Neut # (Auto) 3.9 x10E3/uL (1.8-7.7) 02/13/24 18:30 Lymph # (Auto) 0.5 x10E3/uL (1.00-4.8) L 02/13/24 18:30 [place] # (Auto) 0.2 x10E3/uL (0.0-0.8) 02/13/24 18:30 Eos # (Auto) 0.0 x10E3/uL (0.0-0.45) 02/13/24 18:30 Baso # (Auto) 0.0 x10E3/uL (0.0-0.2) 02/13/24 18:30 Monocyte Dist Width 44.14 % (0.00-20.00) H 02/13/24 18:30 PHA Creatinine Clear 41.53 02/13/24 18:08 Sodium 129 mmol/L (136-145) L D 02/13/24 18:08 Potassium 3.7 mmol/L (3.5-5.1) 02/13/24 19:15 Chloride 89 mmol/L (98-107) L 02/13/24 18:08 Carbon Dioxide 25.2 mmol/L (21.0-31.0) 02/13/24 18:08 Anion Gap TNP 02/13/24 18:08 BUN 43 mg/dL (7-25) H 02/13/24 18:08 Creatinine 1.81 mg/dL (0.60-1.20) H 02/13/24 18:08 Est GFR (CKD-EPI) 29.923 mL/Min 02/13/24 18:08 Glucose 229 mg/dL (70-100) H D 02/13/24 18:08 Calcium 9.0 mg/dL (8.6-10.3) 02/13/24 18:08 Total Bilirubin 1.1 mg/dl (0.3-1.0) H 02/13/24 18:08 AST 45 U/L (13-39) H 02/13/24 19:15 ALT 25 U/L (7-52) 02/13/24 18:08 Alkaline Phosphatase 52 U/L (34-104) 02/13/24 18:08 B-Natriuretic Peptide 242.0 pg/mL (5-100) H 02/13/24 18:30 Total Protein 6.8 gm/dL (6.4-8.9) 02/13/24 18:08 Albumin 3.5 gm/dL (3.5-5.7) 02/13/24 18:08 Globulin 3.3 gm/dL 02/13/24 18:08 Albumin/Globulin Ratio 1.1 02/13/24 18:08 Assessment & Plan Assessment/Plan (1) Intractable nausea and vomiting: (2) Diarrhea: (3) Dehydration: (4) Diabetic neuropathy: (5) Diabetic retinopathy: (6) Diabetes mellitus with hyperglycemia: (7) CAD (coronary artery disease): (8) Acute respiratory failure with hypoxia: (9) Fever: (10) Morbid obesity with BMI of 50.0-59.9, adult: (11) Pickwickian syndrome: (12) BMI 50.0-59.9, adult: Plan Assessment: Intractable nausea and vomiting, with diarrhea. Clinical dehydration acute kidney injury. Laboratory markers raising suspicion of early development of sepsis. Acute hypoxic respiratory failure in the emergency room requiring application ofsupplemental oxygen. Fever. The exact infectious etiology is not clear. BMI of 56. Pickwickian syndrome. Artery disease. Diabetes with hyperglycemia. Plan: Hospital admission, inpatient status. Gentle hydration with IV fluids overnight. If he continues to need supplemental oxygen BiPAP may need to be applied I wouldput her at 12/5 with FiO2 of 30% and infraduction saturations of 90 to 92%. If she has another bout of diarrhea his stool will be sent for culture, PCR testing for infectious organisms, and C. difficile. Blood cultures x 2 were ordered while he was on the phone with the ER provider. Recheck labs in the morning. Insulin scale level 3. Clear liquid diet overnight and then consider advancing diet when she is showingclinical progress. It is possible that she has diverticulitis or an enterocolitis which has not yetdeclared itself on the CT scanning last night. Given the presence of the fever and progression and worsening of the symptoms I will start her on IV Levaquin and IV Flagyl and then monitor clinical progress. DVT prophylaxis with heparin 5000 units subcutaneously every 8 hours. IP vs OBS Justification Based on differential dx, clinical care plan, and risk of adverse events, if untreated, in my clinical judgement this patient requires an acute care setting as: INPATIENT because of an expectation of an over 2 midnight stay. Estimated length of stay (# of days): 4 Documented By: Vincenzo Ragsdale DO [id number] Signed By: <Electronically signed by Vincenzo Ragsdale DO> 02/13/242056 [facility] Work Phone: [phone] 400-964104-16-2024 Hospital Discharge instructions Additional Instructions Take Zofran as prescribed for nausea vomiting take Imodium as prescribed for diarrhea. Increase intake of fluids and rest. Follow-up with PCP for recheck next 3 to 5 days. 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 The question as to whether or not the patient also has an arterial component which is defined as mixed disease. The patient has numerous factors for arterial sclerosis including hypertension hyperlipidemia significant family history of diabetes. We will need to check a noninvasive arterial study to evaluate the blood supply to the feet and legs. I feel this is important prior to ordering compression therapy for the ulcers. Patient is due to see wound care tomorrow here in [facility] at [facility]. I suggest that she keep her appointment for the wound care. We will focus on the blood supply and the venous disease. Will also order comprehensive venous duplex to evaluate for any valvular reflux. Nov, Non-pressure chronic ulcer of right calf with fat layer exposed (ICD-10 - L97.212) Nov, Varicose veins of left lower extremity with ulcer of calf (ICD-10 - I83.022) Nov, Non-pressure chronic ulcer of left calf with fat layer exposed (ICD-10 - L97.222) [email or web address] Other 11-07-2023 Progress note Author Mazin Ortiz [facility] September 05, 2023 6:09pm Note Date/Time September 05, 2023 6 :01pm [facility] [address] [place] [address] Hospitalist Progress Note Signed Patient: Namrata Jack MR#: [id number] : 1955 Acct:[id number] Age/Sex: 67 / F Adm Date: 3 Loc: Room: [address] [place] [address] Type: ADM IN Attending Dr: Mazin Ortiz MD Copies to: ~ Date of Service: 09/05/2023 Subjective Subjective Narrative: Patient is seen and assessed at bedside today. She does feel better overall. She did have some dizziness/lightheadedness with standing. Orthostatics were performed and she did have drop in systolic blood pressure from 140s to 100s systolic. Patient had PureWick in place and urine was very dark. He did discuss, patient will be monitored an additional night due to her orthostatic hypotension. Exam Physical Exam Vital Signs: Temp Pulse Resp BP Pulse Ox O2 Del Method O2 Flow Rate 97.7 F 60 12 120/71 96 Room Air 2 09/05/23 15:49 09/05/23 15:49 09/05/23 15:49 09/05/23 15:49 09/05/23 15:49 09/05/23 16:00 09/04/23 17:05 Narrative: Constitutional: Middle-aged WF, resting in bed with mild-moderate nausea HEENT: Moist mucous membranes, neck supple Cardiovascular: RRR, no M/R/G, normal S1 and S2, no JVD Respiratory: Lungs clear to auscultation bilaterally, no wheezes, rales or rhonchi GI: Soft, minimally tender diffusely, normoactive bowel sounds : Deferred Neuro: AAO x3, no focal deficits. CN III-XII grossly intact, Strength 5/5 throughout Extremities: No clubbing, cyanosis or edema Psych: Patient calm, cooperative and conversant Objective Lab Results 09/05/23 06:52 09/05/23 06:52 Microbiology Results Microbiology 08/31/23 01:17 Blood - Right Antecubital Blood Culture - Final NO GROWTH 5 DAYS Meds Allergies and Active Meds Allergies Penicillins Allergy (Severe, Verified 08/31/23 00:21) Anaphylaxis IV Dye Allergy (Severe, Uncoded 08/31/23 00:21) Anaphylaxis Active Meds: Active Medications Generic Name Dose Route Start Last Admin Trade Name Freq PRN Reason Stop Dose Admin Acetaminophen 650 mg 08/31/23 04:04 09/05/23 08:28 Acetaminophen 325 Mg Tablet PO 08/30/24 04:03 650 mg Q6HR PRN Administration Pain Scale 1 - 3 or fever Amlodipine Besylate 5 mg 08/31/23 09:00 09/05/23 08:32 Amlodipine 5 Mg Tablet PO 08/30/24 08:59 5 mg DAILY TONY Administration Ascorbic Acid 1,000 mg 08/31/23 09:00 09/05/23 08:32 Ascorbic Acid 500 Mg Tablet PO 08/30/24 08:59 1,000 mg DAILY TONY Administration Aspirin 81 mg 08/31/23 09:00 09/05/23 08:32 Aspirin 81 Mg Tablet.Dr PO 08/30/24 08:59 81 mg DAILY TONY Administration Atorvastatin Calcium 80 mg 08/31/23 22:00 09/04/23 21:29 Atorvastatin 80 Mg Tablet PO 08/30/24 21:59 80 mg QHS TONY Administration Clopidogrel Bisulfate 75 mg 08/31/23 12:30 09/05/23 08:33 Clopidogrel Bisulfate 75 Mg Tablet PO 08/30/24 12:29 75 mg DAILY TONY Administration Cyclobenzaprine HCl 10 mg 08/31/23 06:53 09/05/23 08:29 Cyclobenzaprine 10 Mg Tablet PO 08/30/24 06:52 10 mg TID PRN Administration Spasms Dextrose 0 gm 08/31/23 14:06 09/02/23 15:36 Dextrose 50% In Water 25 Gm/50 Ml Syringe IV-PUSH 08/30/24 14:05 12.5 gm PRN PRN Administration Hypoglycemia Docusate Sodium 100 mg 08/31/23 21:00 09/05/23 08:33 Docusate 100 Mg Capsule PO 08/30/24 20:59 100 mg BID TONY Administration Enoxaparin Sodium 40 mg 09/01/23 21:00 09/05/23 08:33 Enoxaparin 40 Mg/0.4 Ml Syringe SUBCUT 08/30/24 09:59 40 mg BID TONY Administration Folic Acid 1 tab 08/31/23 09:00 09/05/23 08:33 Cyanocobalamin/Fa/Pyridoxine 1 Tab Tablet PO 08/30/24 08:59 1 tab DAILY TONY Administration Furosemide 40 mg 08/31/23 13:00 09/05/23 11:55 Furosemide 40 Mg Tablet PO 08/30/24 12:59 40 mg BID.AC.BKFAST.LUNCH TONY Administration Gabapentin 600 mg 08/31/23 09:00 09/05/23 08:33 Gabapentin 300 Mg Capsule PO 08/30/24 08:59 600 mg BID TONY Administration Glucose 0 gm 08/31/23 14:06 Dextrose 40% Gel 15 Gm Tube PO 08/30/24 14:05 PRN PRN Hypoglycemia Hydralazine HCl 10 mg 08/31/23 04:09 Hydralazine 20 Mg/Ml Vial IV-PUSH 08/30/24 04:08 Q4H PRN Hypertension Lactated Ringer's 1,000 mls @ 75 mls/hr 09/05/23 17:30 Lactated Ringers IV 09/06/23 06:49 .[id number] TONY Insulin Aspart 0 units 08/31/23 17:00 09/05/23 17:11 Insulin Aspart 300 Units/3 Ml Insuln.Pen SUBCUT 08/30/24 16:59 2 units TID.WM.HS TONY Administration Protocol Insulin Aspart 5 units 09/04/23 16:30 09/05/23 17:10 Insulin Aspart 300 Units/3 Ml Insuln.Pen SUBCUT 09/03/24 16:29 5 units TID.AC TONY Administration Insulin Glargine 30 units 08/31/23 22:00 09/04/23 21:29 Insulin Glargine 300 Units/3 Ml Insuln.Pen SUBCUT 08/30/24 21:59 30 units HS TONY Administration Insulin Glargine 50 units 09/01/23 09:00 09/05/23 08:33 Insulin Glargine 300 Units/3 Ml Insuln.Pen SUBCUT 08/31/24 08:59 50 units DAILY TONY Administration Losartan Potassium 50 mg 09/06/23 09:00 Losartan 50 Mg Tablet PO 09/05/24 08:59 DAILY TONY Melatonin 5 mg 08/31/23 04:09 09/03/23 21:17 Melatonin 5 Mg Tablet PO 08/30/24 04:08 5 mg QHS PRN Administration Insomnia Metolazone 5 mg 08/31/23 09:00 09/05/23 08:35 Metolazone 5 Mg Tablet PO 08/30/24 08:59 5 mg DAILY TONY Administration Metoprolol Tartrate 12.5 mg 08/31/23 09:00 09/05/23 08:35 Metoprolol Tartrate 12.5 Mg Tablet PO 08/30/24 08:59 Not Given BID TONY Mineral Oil 1 each 09/01/23 14:20 09/01/23 21:38 Mineral Oil ([place]) 1 Each Enema [place] 08/31/24 14:19 1 each DAILY PRN Administration Constipation Morphine Sulfate 2 mg 08/31/23 04:04 09/04/23 07:24 Morphine Sulfate 2 Mg/Ml Vial IV-PUSH 2 mg Q4H PRN Administration Pain Scale 8 - 10 Ondansetron HCl 4 mg 08/31/23 04:09 09/04/23 02:08 Ondansetron 4 Mg/2 Ml Vial IV-PUSH 08/30/24 04:08 4 mg Q8H PRN Administration Nausea And Vomiting Oxybutynin Chloride 5 mg 08/31/23 13:00 09/05/23 08:35 Oxybutynin Chloride 5 Mg Tablet PO 08/30/24 12:59 5 mg BID TONY Administration Polyethylene Glycol 17 gm 08/31/23 21:00 09/05/23 08:29 Polyethylene Glycol 3350 17 Gm Powd.Pack PO 08/30/24 20:59 17 gm BID TONY Administration Potassium Chloride 20 meq 08/31/23 09:00 09/05/23 08:36 Potassium Chloride Er 20 Meq Tab.Er.Prt PO 08/30/24 08:59 20 meq DAILY TONY Administration Promethazine HCl 25 mg 08/31/23 06:53 09/04/23 05:36 Promethazine 25 Mg Tablet PO 08/30/24 06:52 25 mg Q6H PRN Administration Nausea Sennosides 2 tab 08/31/23 22:00 09/04/23 21:28 Sennosides 8.6 Mg Tablet PO 08/30/24 21:59 2 tab QHS TONY Administration Sertraline HCl 100 mg 08/31/23 12:30 09/05/23 08:36 Sertraline 100 Mg Tablet PO 08/30/24 12:29 100 mg DAILY TONY Administration Sodium Chloride 0 ml 08/31/23 00:20 09/03/23 16:09 Sodium Chloride 0.9 % 10 Ml Syringe IV-PUSH 08/30/24 00:19 10 ml PRN PRN Administration Flush Vitamin D 100 mcg 08/31/23 09:00 09/05/23 08:32 Cholecalciferol 25 Mcg (1,000 Units) Tablet PO 08/30/24 08:59 100 mcg DAILY TOYN Administration Zolpidem Tartrate 5 mg 08/31/23 06:53 09/03/23 21:17 Zolpidem 5 Mg Tablet PO 02/27/24 06:52 5 mg HS PRN Administration Insomnia A&P - Hospitalist Assessment/Plan (1) Sepsis: (2) Abdominal pain: (3) Hypokalemia: (4) CKD (chronic kidney disease) stage 3, GFR 30-59 ml/min: (5) Type 2 diabetes mellitus with diabetic chronic kidney disease: (6) GERD (gastroesophageal reflux disease): (7) HTN (hypertension): (8) Morbid obesity: (9) Morbid obesity with BMI of 50.0-59.9, adult: (10) Diverticulitis: Plan # Orthostatic Hypotension # Acute kidney injury Blood pressures decreased with standing today. She is maintained on multiple antihypertensives and furosemide twice daily. We will place diuretics on hold and will attempt IV hydration given elevation of creatinine and positive orthostatics today. Patient agreeable to staying an additional night for IV hydration and reassessment in the a.m. # Abd pain, constipation, likely Diverticulitis Abdominal pain complaints have improved. Patient was maintained on metronidazole for the previous 5 days - leukocytosis on admission - monitor - aggressive bowel regimen with Colace, Miralax, senna and prn enema - cont empiric abx for diverticulitis - transition to PO abx at discharge - Advance diet as tolerated. Back to clears if unable to tolerate solids - pain/nausea control # Hypokalemia - replace as needed # CKD - cont to monitor with daily labs # DM2 - ISS while admitted. Resume home regimen at discharge # DVT prophylaxis: Full code Disposition: Pt with severe constipation and likely subclinical diverticulitis (symptoms fit, but not seen on CT). Continuing IVF, abx, aggressive bowel regimen. Given orthostatics today, plan will be for discharge tomorrow once IV hydration has been performed. Documented By: Mazin Ortiz MD 3 [id number] Signed By: <Electronically signed by Mazin Ortiz MD> 09/05/23 8317 [facility] Work Phone: [phone] 854-787311-06-2023 Progress note Author Mazin Ortiz [facility] September 04, 2023 3:28pm Note Date/Time September 04, 2023 3 :04pm [facility] [address] [place] [address] Hospitalist Progress Note Signed Patient: Namrata Jack MR#: [id number] : 1955 Acct:[id number] Age/Sex: 67 / F Adm Date: 3 Loc: 3T Room: [address] [place] [address] Type: ADM IN Attending Dr: Mazin Ortiz MD Copies to: ~ Date of Service: 09/04/2023 Subjective Subjective Narrative: Patient still having difficulty tolerating any p.o. intake. She has been declining her large dose short-acting insulin. Exam Physical Exam Vital Signs: Temp Pulse Resp BP Pulse Ox O2 Del Method O2 Flow Rate 97.6 F 61 16 151/76 H 98 Nasal Cannula 2 09/04/23 11:38 09/04/23 11:38 09/04/23 11:38 09/04/23 11:38 09/04/23 11:38 09/04/23 11:38 09/04/23 11:38 Narrative: Constitutional: Middle-aged WF, resting in bed with mild-moderate nausea HEENT: Moist mucous membranes, neck supple Cardiovascular: RRR, no M/R/G, normal S1 and S2, no JVD Respiratory: Lungs clear to auscultation bilaterally, no wheezes, rales or rhonchi GI: Soft, minimally tender diffusely, normoactive bowel sounds : Deferred Neuro: AAO x3, no focal deficits. CN III-XII grossly intact, Strength 5/5 throughout Extremities: No clubbing, cyanosis or edema Psych: Patient calm, cooperative and conversant Objective Lab Results 09/04/23 06:10 09/04/23 06:10 Microbiology Results Microbiology 08/31/23 01:17 Blood - Right Antecubital Blood Culture - Preliminary No Growth 4 Days Meds Allergies and Active Meds Allergies Penicillins Allergy (Severe, Verified 08/31/23 00:21) Anaphylaxis IV Dye Allergy (Severe, Uncoded 08/31/23 00:21) Anaphylaxis Active Meds: Active Medications Generic Name Dose Route Start Last Admin Trade Name Freq PRN Reason Stop Dose Admin Acetaminophen 650 mg 08/31/23 04:04 09/02/23 00:19 Acetaminophen 325 Mg Tablet PO 08/30/24 04:03 650 mg Q6HR PRN Administration Pain Scale 1 - 3 or fever Amlodipine Besylate 5 mg 08/31/23 09:00 09/04/23 09:02 Amlodipine 5 Mg Tablet PO 08/30/24 08:59 5 mg DAILY TONY Administration Ascorbic Acid 1,000 mg 08/31/23 09:00 09/04/23 09:02 Ascorbic Acid 500 Mg Tablet PO 08/30/24 08:59 1,000 mg DAILY TONY Administration Aspirin 81 mg 08/31/23 09:00 09/04/23 09:02 Aspirin 81 Mg Tablet.Dr PO 08/30/24 08:59 81 mg DAILY TONY Administration Atorvastatin Calcium 80 mg 08/31/23 22:00 09/03/23 21:17 Atorvastatin 80 Mg Tablet PO 08/30/24 21:59 80 mg QHS TONY Administration Clopidogrel Bisulfate 75 mg 08/31/23 12:30 09/04/23 09:02 Clopidogrel Bisulfate 75 Mg Tablet PO 08/30/24 12:29 75 mg DAILY TONY Administration Cyclobenzaprine HCl 10 mg 08/31/23 06:53 09/03/23 06:01 Cyclobenzaprine 10 Mg Tablet PO 08/30/24 06:52 10 mg TID PRN Administration Spasms Dextrose 0 gm 08/31/23 14:06 09/02/23 15:36 Dextrose 50% In Water 25 Gm/50 Ml Syringe IV-PUSH 08/30/24 14:05 12.5 gm PRN PRN Administration Hypoglycemia Docusate Sodium 100 mg 08/31/23 21:00 09/04/23 09:02 Docusate 100 Mg Capsule PO 08/30/24 20:59 100 mg BID TONY Administration Enoxaparin Sodium 40 mg 09/01/23 21:00 09/04/23 09:02 Enoxaparin 40 Mg/0.4 Ml Syringe SUBCUT 08/30/24 09:59 40 mg BID TONY Administration Folic Acid 1 tab 08/31/23 09:00 09/04/23 09:02 Cyanocobalamin/Fa/Pyridoxine 1 Tab Tablet PO 08/30/24 08:59 1 tab DAILY TONY Administration Furosemide 40 mg 08/31/23 13:00 09/04/23 11:34 Furosemide 40 Mg Tablet PO 08/30/24 12:59 40 mg BID.AC.BKFAST.LUNCH TONY Administration Gabapentin 600 mg 08/31/23 09:00 09/04/23 09:02 Gabapentin 300 Mg Capsule PO 08/30/24 08:59 600 mg BID TONY Administration Glucose 0 gm 08/31/23 14:06 Dextrose 40% Gel 15 Gm Tube PO 08/30/24 14:05 PRN PRN Hypoglycemia Hydralazine HCl 10 mg 08/31/23 04:09 Hydralazine 20 Mg/Ml Vial IV-PUSH 08/30/24 04:08 Q4H PRN Hypertension Metronidazole 500 mg in 100 mls @ 100 mls/hr 08/31/23 07:00 09/04/23 07:56 Flagyl IV 09/05/23 06:59 Infused Q8H [facility] Infusion Insulin Aspart 40 units 08/31/23 16:30 09/04/23 11:25 Insulin Aspart 300 Units/3 Ml Insuln.Pen SUBCUT 08/30/24 16:29 Not Given TID.[facility] Insulin Aspart 0 units 08/31/23 17:00 09/04/23 11:25 Insulin Aspart 300 Units/3 Ml Insuln.Pen SUBCUT 08/30/24 16:59 Not Given TID.WM.[facility] Protocol Insulin Glargine 30 units 08/31/23 22:00 09/03/23 21:32 Insulin Glargine 300 Units/3 Ml Insuln.Pen SUBCUT 08/30/24 21:59 Not Given [facility] Insulin Glargine 50 units 09/01/23 09:00 09/04/23 09:03 Insulin Glargine 300 Units/3 Ml Insuln.Pen SUBCUT 08/31/24 08:59 50 units DAILY TONY Administration Losartan Potassium 100 mg 08/31/23 13:00 09/04/23 09:07 Losartan 50 Mg Tablet PO 08/30/24 12:59 100 mg DAILY TONY Administration Melatonin 5 mg 08/31/23 04:09 09/03/23 21:17 Melatonin 5 Mg Tablet PO 08/30/24 04:08 5 mg QHS PRN Administration Insomnia Metolazone 5 mg 08/31/23 09:00 09/04/23 09:02 Metolazone 5 Mg Tablet PO 08/30/24 08:59 5 mg DAILY TONY Administration Metoprolol Tartrate 12.5 mg 08/31/23 09:00 09/04/23 09:02 Metoprolol Tartrate 12.5 Mg Tablet PO 08/30/24 08:59 12.5 mg BID TONY Administration Mineral Oil 1 each 09/01/23 14:20 09/01/23 21:38 Mineral Oil ([place]) 1 Each Enema [place] 08/31/24 14:19 1 each DAILY PRN Administration Constipation Morphine Sulfate 2 mg 08/31/23 04:04 09/04/23 07:24 Morphine Sulfate 2 Mg/Ml Vial IV-PUSH 2 mg Q4H PRN Administration Pain Scale 8 - 10 Ondansetron HCl 4 mg 08/31/23 04:09 09/04/23 02:08 Ondansetron 4 Mg/2 Ml Vial IV-PUSH 08/30/24 04:08 4 mg Q8H PRN Administration Nausea And Vomiting Oxybutynin Chloride 5 mg 08/31/23 13:00 09/04/23 09:02 Oxybutynin Chloride 5 Mg Tablet PO 08/30/24 12:59 5 mg BID TONY Administration Polyethylene Glycol 17 gm 08/31/23 21:00 09/04/23 09:03 Polyethylene Glycol 3350 17 Gm Powd.Pack PO 08/30/24 20:59 Not Given BID TONY Potassium Chloride 20 meq 08/31/23 09:00 09/04/23 09:02 Potassium Chloride Er 20 Meq Tab.Er.Prt PO 08/30/24 08:59 20 meq DAILY TONY Administration Promethazine HCl 25 mg 08/31/23 06:53 09/04/23 05:36 Promethazine 25 Mg Tablet PO 08/30/24 06:52 25 mg Q6H PRN Administration Nausea Sennosides 2 tab 08/31/23 22:00 09/03/23 21:18 Sennosides 8.6 Mg Tablet PO 08/30/24 21:59 Not Given QHS TONY Sertraline HCl 100 mg 08/31/23 12:30 09/04/23 09:02 Sertraline 100 Mg Tablet PO 08/30/24 12:29 100 mg DAILY TONY Administration Sodium Chloride 0 ml 08/31/23 00:20 09/03/23 16:09 Sodium Chloride 0.9 % 10 Ml Syringe IV-PUSH 08/30/24 00:19 10 ml PRN PRN Administration Flush Vitamin D 100 mcg 08/31/23 09:00 09/04/23 09:02 Cholecalciferol 25 Mcg (1,000 Units) Tablet PO 08/30/24 08:59 100 mcg DAILY TONY Administration Zolpidem Tartrate 5 mg 08/31/23 06:53 09/03/23 21:17 Zolpidem 5 Mg Tablet PO 02/27/24 06:52 5 mg HS PRN Administration Insomnia A&P - Hospitalist Assessment/Plan (1) Sepsis: (2) Abdominal pain: (3) Hypokalemia: (4) CKD (chronic kidney disease) stage 3, GFR 30-59 ml/min: (5) Type 2 diabetes mellitus with diabetic chronic kidney disease: Plan # Abd pain, constipation, likely diverticulitis Patient feels mildly improved. Had large bowel movement last night. - leukocytosis on admission - monitor - pt admits to dealing with severe constipation for months - aggressive bowel regimen with Colace, Miralax, senna and prn enema - cont empiric abx for diverticulitis - transition to PO abx at discharge - Advance diet as tolerated. Back to clears if unable to tolerate solids - pain/nausea control # Hypokalemia - replace as needed # CKD - cont to monitor with daily labs # DM2 - ISS while admitted. Resume home regimen at discharge # DVT prophylaxis: Full code Disposition: Pt with severe constipation and likely subclinical diverticulitis (symptoms fit, but not seen on CT). Continuing IVF, abx, aggressive bowel regimen. Large BM overnight and feels better today, but not ready to go home today. Hoping to go home tomorrow if feeling better Documented By: Mazin Ortiz MD 3 [id number] Signed By: <Electronically signed by Mazin Ortiz MD> 09/04/23 3767 [facility] Work Phone: [phone] 843-225911-05-2023 Progress note Author Pavel Charles [facility] September 03, 2023 2:23pm Note Date/Time September 03, 2023 2 :23pm [facility] [address] [place] [address] Hospitalist Progress Note Signed Patient: Namrata Jack MR#: [id number] : 1955 Acct:[id number] Age/Sex: 67 / F Adm Date: 3 Loc: Room: [address] [place] [address] Type: ADM IN Attending Dr: Pavel T Charles DO Copies to: ~ Date of Service: 09/03/2023 Subjective Subjective Narrative: Pt seen and examined. States she feels improved today but still slightly nauseated. States she had a large BM last night which gave some relief. Hoping to go home tomorrow Exam Physical Exam Vital Signs: Temp Pulse Resp BP Pulse Ox O2 Del Method O2 Flow Rate 97.9 F 78 16 148/80 H 98 Nasal Cannula 2 09/03/23 11:37 09/03/23 11:37 09/03/23 11:37 09/03/23 11:37 09/03/23 11:37 09/03/23 11:37 09/03/23 11:37 Narrative: General: Awake and alert. Lying in bed comfortably HEENT: Normocephalic, atraumatic, trachea midline Respiratory: good inspiratory effort, no wheeze, no rhonchi, no crackles Cardiovascular: RRR, normal S1 and S2 Abdominal: soft, obese, generalized tenderness, no rebound, no guarding, +BS Skin: warm, dry MSK: no edema Neurologic: No focal deficits Psych: appropriate affect Objective Lab Results 09/03/23 05:54 09/03/23 05:54 Microbiology Results Microbiology 08/31/23 01:17 Blood - Right Antecubital Blood Culture - Preliminary No Growth 3 Days Meds Allergies and Active Meds Allergies Penicillins Allergy (Severe, Verified 08/31/23 00:21) Anaphylaxis IV Dye Allergy (Severe, Uncoded 08/31/23 00:21) Anaphylaxis Active Meds: Active Medications Generic Name Dose Route Start Last Admin Trade Name Freq PRN Reason Stop Dose Admin Acetaminophen 650 mg 08/31/23 04:04 09/02/23 00:19 Acetaminophen 325 Mg Tablet PO 08/30/24 04:03 650 mg Q6HR PRN Administration Pain Scale 1 - 3 or fever Amlodipine Besylate 5 mg 08/31/23 09:00 09/03/23 08:31 Amlodipine 5 Mg Tablet PO 08/30/24 08:59 5 mg DAILY TONY Administration Ascorbic Acid 1,000 mg 08/31/23 09:00 09/03/23 08:30 Ascorbic Acid 500 Mg Tablet PO 08/30/24 08:59 1,000 mg DAILY TONY Administration Aspirin 81 mg 08/31/23 09:00 09/03/23 08:31 Aspirin [address] ORELLANA 08/30/24 08:59 81 mg DAILY TONY Administration Atorvastatin Calcium 80 mg 08/31/23 22:00 09/02/23 21:21 Atorvastatin 80 Mg Tablet PO 08/30/24 21:59 80 mg QHS TONY Administration Clopidogrel Bisulfate 75 mg 08/31/23 12:30 09/03/23 08:31 Clopidogrel Bisulfate 75 Mg Tablet PO 08/30/24 12:29 75 mg DAILY TONY Administration Cyclobenzaprine HCl 10 mg 08/31/23 06:53 09/03/23 06:01 Cyclobenzaprine 10 Mg Tablet PO 08/30/24 06:52 10 mg TID PRN Administration Spasms Dextrose 0 gm 08/31/23 14:06 09/02/23 15:36 Dextrose 50% In Water 25 Gm/50 Ml Syringe IV-PUSH 08/30/24 14:05 12.5 gm PRN PRN Administration Hypoglycemia Docusate Sodium 100 mg 08/31/23 21:00 09/03/23 08:31 Docusate 100 Mg Capsule PO 08/30/24 20:59 100 mg BID TONY Administration Enoxaparin Sodium 40 mg 09/01/23 21:00 09/03/23 08:31 Enoxaparin 40 Mg/0.4 Ml Syringe SUBCUT 08/30/24 09:59 40 mg BID TONY Administration Folic Acid 1 tab 08/31/23 09:00 09/03/23 08:30 Cyanocobalamin/Fa/Pyridoxine 1 Tab Tablet PO 08/30/24 08:59 1 tab DAILY TONY Administration Furosemide 40 mg 08/31/23 13:00 09/03/23 11:31 Furosemide 40 Mg Tablet PO 08/30/24 12:59 40 mg BID.AC.BKFAST.LUNCH TONY Administration Gabapentin 600 mg 08/31/23 09:00 09/03/23 08:30 Gabapentin 300 Mg Capsule PO 08/30/24 08:59 600 mg BID TONY Administration Glucose 0 gm 08/31/23 14:06 Dextrose 40% Gel 15 Gm Tube PO 08/30/24 14:05 PRN PRN Hypoglycemia Hydralazine HCl 10 mg 08/31/23 04:09 Hydralazine 20 Mg/Ml Vial IV-PUSH 08/30/24 04:08 Q4H PRN Hypertension Ceftriaxone Sodium 2 gm in 50 mls @ 100 mls/hr 09/01/23 01:30 09/03/23 01:04 EST Rocephin IV 09/04/23 01:59 100 mls/hr Q24H TONY Administration Metronidazole 500 mg in 100 mls @ 100 mls/hr 08/31/23 07:00 09/03/23 08:32 Flagyl IV 09/05/23 06:59 Infused Q8H TONY Infusion Insulin Aspart 40 units 08/31/23 16:30 09/03/23 11:31 Insulin Aspart 300 Units/3 Ml Insuln.Pen SUBCUT 08/30/24 16:29 Not Given TID.AC TONY Insulin Aspart 0 units 08/31/23 17:00 09/03/23 11:31 Insulin Aspart 300 Units/3 Ml Insuln.Pen SUBCUT 08/30/24 16:59 Not Given TID.WM.HS [facility] Protocol Insulin Glargine 30 units 08/31/23 22:00 09/02/23 21:26 Insulin Glargine 300 Units/3 Ml Insuln.Pen SUBCUT 08/30/24 21:59 30 units HS [facility] Administration Insulin Glargine 50 units 09/01/23 09:00 09/03/23 08:32 Insulin Glargine 300 Units/3 Ml Insuln.Pen SUBCUT 08/31/24 08:59 50 units DAILY TONY Administration Losartan Potassium 100 mg 08/31/23 13:00 09/03/23 08:30 Losartan 50 Mg Tablet PO 08/30/24 12:59 100 mg DAILY TONY Administration Melatonin 5 mg 08/31/23 04:09 Melatonin 5 Mg Tablet PO 08/30/24 04:08 QHS PRN Insomnia Metolazone 5 mg 08/31/23 09:00 09/03/23 08:30 Metolazone 5 Mg Tablet PO 08/30/24 08:59 5 mg DAILY TONY Administration Metoprolol Tartrate 12.5 mg 08/31/23 09:00 09/03/23 08:31 Metoprolol Tartrate 12.5 Mg Tablet PO 08/30/24 08:59 12.5 mg BID TONY Administration Mineral Oil 1 each 09/01/23 14:20 09/01/23 21:38 Mineral Oil ([place]) 1 Each Enema [place] 08/31/24 14:19 1 each DAILY PRN Administration Constipation Morphine Sulfate 2 mg 08/31/23 04:04 09/03/23 11:31 Morphine Sulfate 2 Mg/Ml Vial IV-PUSH 2 mg Q4H PRN Administration Pain Scale 8 - 10 Ondansetron HCl 4 mg 08/31/23 04:09 09/03/23 08:35 Ondansetron 4 Mg/2 Ml Vial IV-PUSH 08/30/24 04:08 4 mg Q8H PRN Administration Nausea And Vomiting Oxybutynin Chloride 5 mg 08/31/23 13:00 09/03/23 08:31 Oxybutynin Chloride 5 Mg Tablet PO 08/30/24 12:59 5 mg BID TONY Administration Polyethylene Glycol 17 gm 08/31/23 21:00 09/03/23 08:32 Polyethylene Glycol 3350 17 Gm Powd.Pack PO 08/30/24 20:59 Not Given BID TONY Potassium Chloride 20 meq 08/31/23 09:00 09/03/23 08:31 Potassium Chloride Er 20 Meq Tab.Er.Prt PO 08/30/24 08:59 20 meq DAILY TONY Administration Promethazine HCl 25 mg 08/31/23 06:53 09/03/23 12:27 Promethazine 25 Mg Tablet PO 08/30/24 06:52 25 mg Q6H PRN Administration Nausea Sennosides 2 tab 08/31/23 22:00 09/02/23 21:22 Sennosides 8.6 Mg Tablet PO 08/30/24 21:59 Not Given QHS TONY Sertraline HCl 100 mg 08/31/23 12:30 09/03/23 08:30 Sertraline 100 Mg Tablet PO 08/30/24 12:29 100 mg DAILY TONY Administration Sodium Chloride 0 ml 08/31/23 00:20 09/03/23 11:31 Sodium Chloride 0.9 % 10 Ml Syringe IV-PUSH 08/30/24 00:19 10 ml PRN PRN Administration Flush Vitamin D 100 mcg 08/31/23 09:00 09/03/23 08:30 Cholecalciferol 25 Mcg (1,000 Units) Tablet PO 08/30/24 08:59 100 mcg DAILY TONY Administration Zolpidem Tartrate 5 mg 08/31/23 06:53 09/03/23 00:59 Zolpidem 5 Mg Tablet PO 02/27/24 06:52 5 mg HS PRN Administration Insomnia A&P - Hospitalist Assessment/Plan (1) Sepsis: (2) Abdominal pain: (3) Hypokalemia: (4) CKD (chronic kidney disease) stage 3, GFR 30-59 ml/min: (5) Type 2 diabetes mellitus with diabetic chronic kidney disease: Plan # Abd pain, constipation, likely diverticulitis - CT with large stool burden, no obstruction - leukocytosis on admission - monitor - pt admits to dealing with severe constipation for months - aggressive bowel regimen with colace, miralax, senna and prn enema - cont empiric abx for diverticulitis - transition to PO abx at discharge - Advance diet as tolerated. Back to clears if unable to tolerate solids - pain/nausea control # Hypokalemia - replace as needed # CKD - cont to monitor with daily labs # DM2 - ISS while admitted. Resume home regimen at discharge DVT prophylaxis addressed Full code Disposition: Pt with severe constipation and likely subclinical diverticulitis (symptoms fit, but not seen on CT). Continuing IVF, abx, aggressive bowel regimen. Large BM overnight and feels better today, but not ready to go home today. Hoping to go home tomorrow if feeling better Time Spent With Patient (min): 45 Documented By: Pavel Charles DO 09/03/23 142 0 Signed By: <Electronically signed by Pavel Charles DO> 09/03/23 1423 [facility] Work Phone: [phone] Progress note Author Pavel Charles [facility] September 02, 2023 1:58pm Note Date/Time September 02, 2023 1 :59pm [facility] [address] [place] [address] Hospitalist Progress Note Signed Patient: Namrata Jack MR#: [id number] : 1955 Acct:[id number] Age/Sex: 67 / F Adm Date: 3 Loc: 3T Room: [address] [place] [address] Type: ADM IN Attending Dr: Pavel Charles DO Copies to: ~ Date of Service: 09/02/2023 Subjective Subjective Narrative: Pt seen and examined. States she feels improved today. Leukocytosis improved. Passing gas which is progress, but still no BM. Asking for a diet. Will advance as tolerated Exam Physical Exam Vital Signs: Temp Pulse Resp BP Pulse Ox O2 Del Method O2 Flow Rate 97.7 F 67 16 132/78 99 Nasal Cannula 2 09/02/23 08:00 09/02/23 08:00 09/02/23 08:00 09/02/23 08:00 09/02/23 08:00 09/02/23 09:41 09/02/23 09:41 Narrative: General: Awake and alert. Lying in bed comfortably HEENT: Normocephalic, atraumatic, trachea midline Respiratory: good inspiratory effort, no wheeze, no rhonchi, no crackles Cardiovascular: RRR, normal S1 and S2 Abdominal: soft, obese, generalized tenderness, no rebound, no guarding, +BS Skin: warm, dry MSK: no edema Neurologic: No focal deficits Psych: appropriate affect Objective Lab Results 09/02/23 05:57 08/31/23 07:01 Microbiology Results Microbiology 08/31/23 00:35 Blood - Left Antecubital Blood Culture - Final Strep dysgalactiae 08/31/23 00:35 Blood - Left Antecubital Bacterial ID (NA Multiplex Assay) - Final 08/31/23 01:17 Blood - Right Antecubital Blood Culture - Preliminary No Growth 2 Days Meds Allergies and Active Meds Allergies Penicillins Allergy (Severe, Verified 08/31/23 00:21) Anaphylaxis IV Dye Allergy (Severe, Uncoded 08/31/23 00:21) Anaphylaxis Active Meds: Active Medications Generic Name Dose Route Start Last Admin Trade Name Freq PRN Reason Stop Dose Admin Acetaminophen 650 mg 08/31/23 04:04 09/02/23 00:19 Acetaminophen 325 Mg Tablet PO 08/30/24 04:03 650 mg Q6HR PRN Administration Pain Scale 1 - 3 or fever Amlodipine Besylate 5 mg 08/31/23 09:00 09/02/23 09:47 Amlodipine 5 Mg Tablet PO 08/30/24 08:59 5 mg DAILY TONY Administration Ascorbic Acid 1,000 mg 08/31/23 09:00 09/02/23 09:47 Ascorbic Acid 500 Mg Tablet PO 08/30/24 08:59 1,000 mg DAILY TONY Administration Aspirin 81 mg 08/31/23 09:00 09/02/23 09:46 Aspirin [address] ORELLANA 08/30/24 08:59 81 mg DAILY TONY Administration Atorvastatin Calcium 80 mg 08/31/23 22:00 09/01/23 21:30 Atorvastatin 80 Mg Tablet PO 08/30/24 21:59 80 mg QHS TONY Administration Clopidogrel Bisulfate 75 mg 08/31/23 12:30 09/02/23 09:48 Clopidogrel Bisulfate 75 Mg Tablet PO 08/30/24 12:29 75 mg DAILY TONY Administration Cyclobenzaprine HCl 10 mg 08/31/23 06:53 09/02/23 00:20 Cyclobenzaprine 10 Mg Tablet PO 08/30/24 06:52 10 mg TID PRN Administration Spasms Dextrose 0 gm 08/31/23 14:06 Dextrose 50% In Water 25 Gm/50 Ml Syringe IV-PUSH 08/30/24 14:05 PRN PRN Hypoglycemia Docusate Sodium 100 mg 08/31/23 21:00 09/02/23 09:49 Docusate 100 Mg Capsule PO 08/30/24 20:59 100 mg BID TONY Administration Enoxaparin Sodium 40 mg 09/01/23 21:00 09/02/23 09:52 Enoxaparin 40 Mg/0.4 Ml Syringe SUBCUT 08/30/24 09:59 40 mg BID TONY Administration Folic Acid 1 tab 08/31/23 09:00 09/02/23 09:48 Cyanocobalamin/Fa/Pyridoxine 1 Tab Tablet PO 08/30/24 08:59 1 tab DAILY TONY Administration Furosemide 40 mg 08/31/23 13:00 09/02/23 12:06 Furosemide 40 Mg Tablet PO 08/30/24 12:59 40 mg BID.AC.BKFAST.LUNCH TONY Administration Gabapentin 600 mg 08/31/23 09:00 09/02/23 09:46 Gabapentin 300 Mg Capsule PO 08/30/24 08:59 600 mg BID TONY Administration Glucose 0 gm 08/31/23 14:06 Dextrose 40% Gel 15 Gm Tube PO 08/30/24 14:05 PRN PRN Hypoglycemia Hydralazine HCl 10 mg 08/31/23 04:09 Hydralazine 20 Mg/Ml Vial IV-PUSH 08/30/24 04:08 Q4H PRN Hypertension Ceftriaxone Sodium 2 gm in 50 mls @ 100 mls/hr 09/01/23 01:30 09/02/23 02:26 Rocephin IV 09/04/23 01:59 100 mls/hr Q24H TONY Administration Metronidazole 500 mg in 100 mls @ 100 mls/hr 08/31/23 07:00 09/02/23 06:49 Flagyl IV 09/05/23 06:59 100 mls/hr Q8H TONY Administration Insulin Aspart 40 units 08/31/23 16:30 09/02/23 12:01 Insulin Aspart 300 Units/3 Ml Insuln.Pen SUBCUT 08/30/24 16:29 40 units TID.AC TONY Administration Insulin Aspart 0 units 08/31/23 17:00 09/02/23 12:02 Insulin Aspart 300 Units/3 Ml Insuln.Pen SUBCUT 08/30/24 16:59 2 units TID.WM.HS TONY Administration Protocol Insulin Glargine 30 units 08/31/23 22:00 09/01/23 21:31 Insulin Glargine 300 Units/3 Ml Insuln.Pen SUBCUT 08/30/24 21:59 30 units HS TONY Administration Insulin Glargine 50 units 09/01/23 09:00 09/02/23 09:58 Insulin Glargine 300 Units/3 Ml Insuln.Pen SUBCUT 08/31/24 08:59 50 units DAILY TONY Administration Losartan Potassium 100 mg 08/31/23 13:00 09/02/23 09:48 Losartan 50 Mg Tablet PO 08/30/24 12:59 100 mg DAILY TONY Administration Melatonin 5 mg 08/31/23 04:09 Melatonin 5 Mg Tablet PO 08/30/24 04:08 QHS PRN Insomnia Metolazone 5 mg 08/31/23 09:00 09/02/23 09:49 Metolazone 5 Mg Tablet PO 08/30/24 08:59 5 mg DAILY TONY Administration Metoprolol Tartrate 12.5 mg 08/31/23 09:00 09/02/23 09:48 Metoprolol Tartrate 12.5 Mg Tablet PO 08/30/24 08:59 12.5 mg BID TONY Administration Mineral Oil 1 each 09/01/23 14:20 09/01/23 21:38 Mineral Oil ([place]) 1 Each Enema [place] 08/31/24 14:19 1 each DAILY PRN Administration Constipation Morphine Sulfate 2 mg 08/31/23 04:04 09/02/23 04:18 Morphine Sulfate 2 Mg/Ml Vial IV-PUSH 2 mg Q4H PRN Administration Pain Scale 8 - 10 Ondansetron HCl 4 mg 08/31/23 04:09 09/01/23 12:03 Ondansetron 4 Mg/2 Ml Vial IV-PUSH 08/30/24 04:08 4 mg Q8H PRN Administration Nausea And Vomiting Oxybutynin Chloride 5 mg 08/31/23 13:00 09/02/23 09:47 Oxybutynin Chloride 5 Mg Tablet PO 08/30/24 12:59 5 mg BID TONY Administration Polyethylene Glycol 17 gm 08/31/23 21:00 09/02/23 09:49 Polyethylene Glycol 3350 17 Gm Powd.Pack PO 08/30/24 20:59 17 gm BID TONY Administration Potassium Chloride 20 meq 08/31/23 09:00 09/02/23 09:47 Potassium Chloride Er 20 Meq Tab.Er.Prt PO 08/30/24 08:59 20 meq DAILY TONY Administration Promethazine HCl 25 mg 08/31/23 06:53 Promethazine 25 Mg Tablet PO 08/30/24 06:52 Q6H PRN Nausea Sennosides 2 tab 08/31/23 22:00 09/01/23 21:32 Sennosides 8.6 Mg Tablet PO 08/30/24 21:59 2 tab QHS TONY Administration Sertraline HCl 100 mg 08/31/23 12:30 09/02/23 09:48 Sertraline 100 Mg Tablet PO 08/30/24 12:29 100 mg DAILY TONY Administration Sodium Chloride 0 ml 08/31/23 00:20 09/02/23 06:49 Sodium Chloride 0.9 % 10 Ml Syringe IV-PUSH 08/30/24 00:19 10 ml PRN PRN Administration Flush Vitamin D 100 mcg 08/31/23 09:00 09/02/23 09:52 Cholecalciferol 25 Mcg (1,000 Units) Tablet PO 08/30/24 08:59 100 mcg DAILY TONY Administration Zolpidem Tartrate 5 mg 08/31/23 06:53 Zolpidem 5 Mg Tablet PO 02/27/24 06:52 HS PRN Insomnia A&P - Hospitalist Assessment/Plan (1) Sepsis: (2) Abdominal pain: (3) Hypokalemia: (4) CKD (chronic kidney disease) stage 3, GFR 30-59 ml/min: (5) Type 2 diabetes mellitus with diabetic chronic kidney disease: Plan # Abd pain, constipation, likely diverticulitis - CT with large stool burden, no obstruction - leukocytosis on admission - monitor - pt admits to dealing with severe constipation for months - aggressive bowel regimen with colace, miralax, senna and prn enema - cont empiric abx for diverticulitis - transition to PO abx at discharge - Advance diet as tolerated. Back to clears if unable to tolerate solids - pain/nausea control # Hypokalemia - replace as needed # CKD - cont to monitor with daily labs # DM2 - ISS while admitted. Resume home regimen at discharge DVT prophylaxis addressed Full code Disposition: Pt with severe constipation and likely subclinical diverticulitis (symptoms fit, but not seen on CT). Continuing IVF, abx, aggressive bowel regimen. Anticipate pt will get significant relief with BM. Will continue to monitor. Will consider discharge when having BM's and abd pain improved, likely another couple of days Time Spent With Patient (min): 45 Documented By: Pavel Charles DO 09/02/23 135 7 Signed By: <Electronically signed by Pavel Charles DO> 09/02/23 1168 [facility] Work Phone: [phone] 179-476211-03-2023 Progress note Author Pavel Charles [facility] September 01, 2023 2:27pm Note Date/Time September 01, 2023 2 :27pm [facility] [address] [place] [address] Hospitalist Progress Note Signed Patient: Namrata Jack MR#: [id number] : 1955 Acct:[id number] Age/Sex: 67 / F Adm Date: 3 Loc: 3T Room: [address] [place] [address] Type: ADM IN Attending Dr: Pavel Charles DO Copies to: ~ Date of Service: 09/01/2023 Subjective Subjective Narrative: Pt seen and examined. Nauseated today. Still no BM. Added prn enema Exam Physical Exam Vital Signs: Temp Pulse Resp BP Pulse Ox O2 Del Method O2 Flow Rate 99.4 F H 84 18 131/71 91 L Room Air 2 09/01/23 12:00 09/01/23 12:00 09/01/23 12:00 09/01/23 12:00 09/01/23 12:00 09/01/23 12:00 09/01/23 08:00 Narrative: General: Awake and alert. Lying in bed comfortably HEENT: Normocephalic, atraumatic, trachea midline Respiratory: good inspiratory effort, no wheeze, no rhonchi, no crackles Cardiovascular: RRR, normal S1 and S2 Abdominal: soft, obese, generalized tenderness, no rebound, no guarding, +BS Skin: warm, dry MSK: no edema Neurologic: No focal deficits Psych: appropriate affect Objective Lab Results 09/01/23 06:27 08/31/23 07:01 Microbiology Results Microbiology 08/31/23 00:35 Blood - Left Antecubital Blood Culture - Preliminary Strep dysgalactiae 08/31/23 00:35 Blood - Left Antecubital Bacterial ID (NA Multiplex Assay) - Final 08/31/23 01:17 Blood - Right Antecubital Blood Culture - Preliminary No Growth 1 Day Meds Allergies and Active Meds Allergies Penicillins Allergy (Severe, Verified 08/31/23 00:21) Anaphylaxis IV Dye Allergy (Severe, Uncoded 08/31/23 00:21) Anaphylaxis Active Meds: Active Medications Generic Name Dose Route Start Last Admin Trade Name Barryq PRN Reason Stop Dose Admin Acetaminophen 650 mg 08/31/23 04:04 09/01/23 12:03 Acetaminophen 325 Mg Tablet PO 08/30/24 04:03 650 mg Q6HR PRN Administration Pain Scale 1 - 3 or fever Amlodipine Besylate 5 mg 08/31/23 09:00 09/01/23 09:05 Amlodipine 5 Mg Tablet PO 08/30/24 08:59 Not Given DAILY TONY Ascorbic Acid 1,000 mg 08/31/23 09:00 09/01/23 09:05 Ascorbic Acid 500 Mg Tablet PO 08/30/24 08:59 Not Given DAILY TONY Aspirin 81 mg 08/31/23 09:00 09/01/23 09:05 Aspirin 81 Mg Tablet. PO 08/30/24 08:59 Not Given DAILY TONY Atorvastatin Calcium 80 mg 08/31/23 22:00 08/31/23 21:28 Atorvastatin 80 Mg Tablet PO 08/30/24 21:59 80 mg QHS TONY Administration Clopidogrel Bisulfate 75 mg 08/31/23 12:30 09/01/23 09:06 Clopidogrel Bisulfate 75 Mg Tablet PO 08/30/24 12:29 Not Given DAILY TONY Cyclobenzaprine HCl 10 mg 08/31/23 06:53 09/01/23 07:48 Cyclobenzaprine 10 Mg Tablet PO 08/30/24 06:52 10 mg TID PRN Administration Spasms Dextrose 0 gm 08/31/23 14:06 Dextrose 50% In Water 25 Gm/50 Ml Syringe IV-PUSH 08/30/24 14:05 PRN PRN Hypoglycemia Docusate Sodium 100 mg 08/31/23 21:00 09/01/23 09:06 Docusate 100 Mg Capsule PO 08/30/24 20:59 Not Given BID TONY Enoxaparin Sodium 40 mg 08/31/23 10:00 09/01/23 09:05 Enoxaparin 40 Mg/0.4 Ml Syringe SUBCUT 08/30/24 09:59 40 mg DAILY@10 OTNY Administration Folic Acid 1 tab 08/31/23 09:00 09/01/23 09:06 Cyanocobalamin/Fa/Pyridoxine 1 Tab Tablet PO 08/30/24 08:59 Not Given DAILY TOYN Furosemide 40 mg 08/31/23 13:00 09/01/23 11:48 Furosemide 40 Mg Tablet PO 08/30/24 12:59 40 mg BID.AC.BKFAST.LUNCH TONY Administration Gabapentin 600 mg 08/31/23 09:00 09/01/23 09:06 Gabapentin 300 Mg Capsule PO 08/30/24 08:59 Not Given BID TONY Glucose 0 gm 08/31/23 14:06 Dextrose 40% Gel 15 Gm Tube PO 08/30/24 14:05 PRN PRN Hypoglycemia Hydralazine HCl 10 mg 08/31/23 04:09 Hydralazine 20 Mg/Ml Vial IV-PUSH 08/30/24 04:08 Q4H PRN Hypertension Ceftriaxone Sodium 2 gm in 50 mls @ 100 mls/hr 09/01/23 01:30 09/01/23 02:01 Rocephin IV 09/04/23 01:59 100 mls/hr Q24H TONY Administration Metronidazole 500 mg in 100 mls @ 100 mls/hr 08/31/23 07:00 09/01/23 06:27 Flagyl IV 09/05/23 06:59 100 mls/hr Q8H TONY Administration Insulin Aspart 40 units 08/31/23 16:30 09/01/23 11:48 Insulin Aspart 300 Units/3 Ml Insuln.Pen SUBCUT 08/30/24 16:29 40 units TID.AC TONY Administration Insulin Aspart 0 units 08/31/23 17:00 09/01/23 11:49 Insulin Aspart 300 Units/3 Ml Insuln.Pen SUBCUT 08/30/24 16:59 Not Given TID.WM.HS TONY Protocol Insulin Glargine 30 units 08/31/23 22:00 09/01/23 07:49 Insulin Glargine 300 Units/3 Ml Insuln.Pen SUBCUT 08/30/24 21:59 30 units HS [facility] Administration Insulin Glargine 50 units 09/01/23 09:00 09/01/23 09:06 Insulin Glargine 300 Units/3 Ml Insuln.Pen SUBCUT 08/31/24 08:59 50 units DAILY TONY Administration Losartan Potassium 100 mg 08/31/23 13:00 09/01/23 09:06 Losartan 50 Mg Tablet PO 08/30/24 12:59 Not Given DAILY TONY Melatonin 5 mg 08/31/23 04:09 Melatonin 5 Mg Tablet PO 08/30/24 04:08 QHS PRN Insomnia Metolazone 5 mg 08/31/23 09:00 09/01/23 09:07 Metolazone 5 Mg Tablet PO 08/30/24 08:59 Not Given DAILY TONY Metoprolol Tartrate 12.5 mg 08/31/23 09:00 09/01/23 09:07 Metoprolol Tartrate 12.5 Mg Tablet PO 08/30/24 08:59 Not Given BID TONY Mineral Oil 1 each 09/01/23 14:20 Mineral Oil ([place]) 1 Each Enema [place] 08/31/24 14:19 DAILY PRN Constipation Morphine Sulfate 2 mg 08/31/23 04:04 08/31/23 17:32 Morphine Sulfate 2 Mg/Ml Vial IV-PUSH 2 mg Q4H PRN Administration Pain Scale 8 - 10 Ondansetron HCl 4 mg 08/31/23 04:09 09/01/23 12:03 Ondansetron 4 Mg/2 Ml Vial IV-PUSH 08/30/24 04:08 4 mg Q8H PRN Administration Nausea And Vomiting Oxybutynin Chloride 5 mg 08/31/23 13:00 09/01/23 09:07 Oxybutynin Chloride 5 Mg Tablet PO 08/30/24 12:59 Not Given BID TONY Polyethylene Glycol 17 gm 08/31/23 21:00 09/01/23 09:07 Polyethylene Glycol 3350 17 Gm Powd.Pack PO 08/30/24 20:59 Not Given BID TONY Potassium Chloride 20 meq 08/31/23 09:00 09/01/23 09:07 Potassium Chloride Er 20 Meq Tab.Er.Prt PO 08/30/24 08:59 Not Given DAILY TONY Promethazine HCl 25 mg 08/31/23 06:53 Promethazine 25 Mg Tablet PO 08/30/24 06:52 Q6H PRN Nausea Sennosides 2 tab 08/31/23 22:00 08/31/23 21:27 Sennosides 8.6 Mg Tablet PO 08/30/24 21:59 2 tab QHS TONY Administration Sertraline HCl 100 mg 08/31/23 12:30 09/01/23 09:07 Sertraline 100 Mg Tablet PO 08/30/24 12:29 Not Given DAILY TONY Sodium Chloride 0 ml 08/31/23 00:20 09/01/23 06:28 Sodium Chloride 0.9 % 10 Ml Syringe IV-PUSH 08/30/24 00:19 10 ml PRN PRN Administration Flush Vitamin D 100 mcg 08/31/23 09:00 09/01/23 09:06 Cholecalciferol 25 Mcg (1,000 Units) Tablet PO 08/30/24 08:59 Not Given DAILY [facility] Zolpidem Tartrate 5 mg 08/31/23 06:53 Zolpidem 5 Mg Tablet PO 02/27/24 06:52 HS PRN Insomnia A&P - Hospitalist Assessment/Plan (1) Sepsis: (2) Abdominal pain: (3) Hypokalemia: (4) CKD (chronic kidney disease) stage 3, GFR 30-59 ml/min: (5) Type 2 diabetes mellitus with diabetic chronic kidney disease: Plan # Abd pain, constipation, likely diverticulitis - CT with large stool burden, no obstruction - leukocytosis on admission - monitor - pt admits to dealing with severe constipation for months - aggressive bowel regimen with colace, miralax, senna and prn enema - cont empiric abx for diverticulitis - transition to PO abx at discharge - clear liquids as tolerated. Advance as tolerated - pain/nausea control # Hypokalemia - replace as needed # CKD - cont to monitor with daily labs # DM2 - ISS while admitted. Resume home regimen at discharge DVT prophylaxis addressed Full code Disposition: Pt with severe constipation and likely subclinical diverticulitis (symptoms fit, but not seen on CT). Continuing IVF, abx, aggressive bowel regimen. Anticipate pt will get significant relief with BM. Will continue to monitor. Will consider discharge when having BM's and abd pain improved, likely another couple of days Time Spent With Patient (min): 45 Documented By: Pavel Charles DO 09/01/23 142 1 Signed By: <Electronically signed by Pavel Charles DO> 09/01/23 1421 [facility] Work Phone: [phone] 109-341911-02-2023 Progress note [facility] August 31, 2023 2:12pm Note Date/Time August 31, 2023 2 :12pm [facility] [address] [place] [address] Progress Note Signed Patient: Namrata Jack MR#: [id number] : 1955 Acct:[id number] Age/Sex: 67 / F Adm Date: 3 Loc: Room: [address] [place] [address] Type: ADM IN Attending Dr: Pavel Charles DO Copies to: ~ Date of Service: 08/31/2023 Progress Narrative Note PROGRESS NOTE Progress Note: Pt admitted after midnight by hospitalist for presumed diverticulitis based on history of constipation, abd pain, leukocytosis and started on empiric abx. Pt still having pain today and no BM. Advanced bowel regimen and advancing diet to clear liquids today. Leukocytosis improved this AM. Pt also with L buttocks pressure wound noted by wound care. Continuing current plan of care. Agree with assessment and plan as outlined in the H&P Documented By: Pavel Charles DO 08/31/23 140 9 Signed By: <Electronically signed by Pavel Charles DO> 08/31/23 1412 [facility] Work Phone: 1(843) 982-458911-02-2023 History and physical note Author Medardo Darling [facility] August 31, 2023 6:05am Note Date/Time August 31, 2023 4 :56am [facility] [address] [place] [address] Hospitalist H&P Signed Patient: Namrata Jack MR#: [id number] : 1955 Acct:[id number] Age/Sex: 67 / F Adm Date: 3 Loc: Room: [address] [place] [address] Type: ADM IN Attending Dr: Medardo Darling DO Copies to: MD Medardo Isaac, ~ HPI DATE OF EXAMINATION: 08/31/23 CHIEF COMPLAINT: abdominal pain HISTORY OF PRESENT ILLNESS: Miss Jack is a 67-year-old female with past medical history of coronary disease,diabetes mellitus, diverticulosis, GERD, hypertension, and pickwickian syndrome who presents hospital today with chief complaint of nausea/vomiting/abdominal pain which started Monday afternoon sometime. Patient states that her last bowel movement was Monday, she was extremely constipated and she had a very hardstool on Monday, followed by diarrhea Monday night. She has not had a bowel movement since. She was not having abdominal pain until today when she suddenlystarted having some nausea and vomiting, she says the emesis was brown-colored. She states her abdominal pain is in her right lower quadrant, 6- 10 in severity, worse with palpation and movement. She also has some lower abdominal tendernessin the suprapubic region and the left lower quadrant though they are less severe. She does have a history of diverticulosis, she says she is overdue for her colonoscopy and her last flareup was around 5 to 10 years ago. She alsohas a history of hysterectomy, appendectomy, and cholecystectomy roughly 20 to 40 years ago for all 3 of them. She has never had a problem with bowel obstruction in the past. She is also complaining of increased frequency in urination but she is known to be slightly incontinent and denies any dysuria. In the emergency room she was found to have elevated white count 18, her chemistry is notable for being slightly hypokalemic, her creatinine is elevated at 1.87 though this is actually near baseline. Her lactic acid was elevated 2.6. She did receive 1.5 L fluid bolus for sepsis protocol based on her ideal weight in hopes to avoid any issues with fluid overload. She was started on broad-spectrum antibiotics ceftriaxone vancomycin for sepsis protocol and admitted to hospital for further evaluation and treatment. Review of Systems Review of Systems All other systems reviewed & are negative unless noted below or in HPI [facility] Medical History Asthma allergy induced CAD (coronary artery disease) Diabetes mellitus Diverticulosis GERD (gastroesophageal reflux disease) HTN (hypertension) Morbid obesity Morbid obesity with BMI of 50.0-59.9, adult Neuropathy Osteoarthritis Pickwickian syndrome Surgical History History of back surgery Hx of appendectomy Hx of cholecystectomy Hx of heart artery stent X6 Hx of hysterectomy Hx of knee surgery Hx of neck surgery Family History Father CAD (coronary artery disease) AMI (acute myocardial infarction) Sister CAD (coronary artery disease) AMI (acute myocardial infarction) Sister CAD (coronary artery disease) AMI (acute myocardial infarction) Brother CAD (coronary artery disease) Social History Smoking Status: Never smoker Tobacco Type: cigarettes Substance Use Type: None Meds Medications and Allergies Allergies Penicillins Allergy (Severe, Verified 08/31/23 00:21) Anaphylaxis IV Dye Allergy (Severe, Uncoded 08/31/23 00:21) Anaphylaxis Home Medications oxybutynin chloride 5 mg tablet 5 mg PO BID 01/20/18 [History Confirmed 08/31/23] zolpidem 5 mg tablet 5 mg PO HS PRN Insomnia 01/20/18 [History Confirmed 08/31/23] gabapentin 300 mg capsule 600 mg PO BID 02/24/18 [History Confirmed 08/31/23] aspirin 81 mg tablet,delayed release (Aspir-Low) 81 mg PO DAILY 06/01/19 [History Confirmed 08/31/23] cholecalciferol (vitamin D3) 50 mcg (2,000 unit) capsule 4,000 unit PO DAILY 06/01/19 [History Confirmed 08/31/23] clopidogrel 75 mg tablet (Plavix) 75 mg PO DAILY 06/01/19 [History Confirmed 08/31/23] cyclobenzaprine 10 mg tablet 10 mg PO TID PRN Spasms 06/01/19 [History Confirmed 08/31/23] sertraline 50 mg tablet (Zoloft) 50 mg PO DAILY 06/01/19 [History Confirmed 08/31/23] insulin lispro 100 unit/mL subcutaneous solution 40 units subcut TID 06/09/19 [History Confirmed 08/31/23] potassium chloride 20 mEq tablet,extended release 20 meq PO DAILY #30 tabs 06/11/19 [Rx Confirmed 08/31/23] insulin detemir U-100 100 unit/mL subcutaneous solution (Levemir U-100 Insulin) 50 unit subcut BID 05/04/23 [History Confirmed 08/31/23] furosemide 40 mg tablet 40 mg PO QAM 05/28/23 [History Confirmed 08/31/23] amlodipine 5 mg tablet 5 mg PO DAILY 08/31/23 [History Confirmed 08/31/23] ascorbic acid (vitamin C) 1,000 mg tablet (Vitamin C) 1,000 mg PO DAILY 08/31/23[History Confirmed 08/31/23] docusate sodium 100 mg tablet 100 mg PO DAILY 08/31/23 [History Confirmed 08/31/23] famotidine 20 mg tablet 40 mg PO QAM 08/31/23 [History Confirmed 08/31/23] hydrocodone 10 mg-acetaminophen 325 mg tablet 10 - 325 mg PO Q6H PRN Pain 08/31/23 [History Confirmed 08/31/23] insulin aspart U-100 100 unit/mL subcutaneous solution (Novolog U-100 Insulin aspart) 40 unit subcut BID 08/31/23 [History Confirmed 08/31/23] losartan 100 mg tablet 100 mg PO DAILY 08/31/23 [History Confirmed 08/31/23] losartan 25 mg tablet 10 mg PO DAILY 08/31/23 [History Confirmed 08/31/23] metolazone 5 mg tablet 5 mg PO DAILY 08/31/23 [History Confirmed 08/31/23] metoprolol tartrate 25 mg tablet 25 mg PO BID 08/31/23 [History Confirmed 08/31/23] promethazine 25 mg tablet 25 mg PO Q6H PRN Nausea 08/31/23 [History Confirmed 08/31/23] rosuvastatin 20 mg tablet 20 mg PO QHS 08/31/23 [History Confirmed 08/31/23] rosuvastatin 40 mg tablet 40 mg PO QHS 08/31/23 [History Confirmed 08/31/23] vitamin B complex 1 cap PO DAILY 08/31/23 [History Confirmed 08/31/23] Exam Physical Exam Vital Signs: Temp Pulse Resp BP Pulse Ox O2 Del Method O2 Flow Rate 98.1 F 84 16 166/69 H 97 Nasal Cannula 2 08/31/23 04:00 08/31/23 04:00 08/31/23 04:00 08/31/23 04:00 08/31/23 04:00 08/31/23 04:00 08/31/23 04:00 Narrative: General: Awake alert, no acute distress HEENT: head atraumatic, normocephalic, moist mucous membranes Neck: supple no masses, no lymphadenopathy CVS: regular rate and rhythm, no murmurs or gallops Respiratory: clear to auscultation bilaterally, no wheezing or crackles, symmetric expansion Back: Blanching warm area across her back GI: soft, nondistended, tenderness in right lower quadrant, no rebound tenderness. positive bowel sounds with no organomegaly Extremity: moves all extremities, no restrictions of movements, no calf tenderness, no edema Neuro: AOx3, CN II-VII intact. Moves all extremities in all planes of motion. Skin: dry, intact no rashes or lesions Results Lab Results Labs: Laboratory Last Values Corrected WBC 18.1 X10E3/uL (3.8-11.6) H 08/31/23 00:35 Uncorrected WBC Count 18.1 x10E3/uL (3.8-11.6) H 08/31/23 00:35 RBC 4.30 X10E6/uL (3.60-5.00) 08/31/23 00:35 Hgb 13.0 g/dL (11.8-15.4) 08/31/23 00:35 Hct 39.1 % (34.0-46.4) 08/31/23 00:35 MCV 91.0 fl (80-100) 08/31/23 00:35 MCH 30.3 pg (24.7-34.3) 08/31/23 00:35 MCHC 33.3 g/dL (32.0-35.0) 08/31/23 00:35 RDW 13.7 % (11.9-15.3) 08/31/23 00:35 Plt Count 338 x10E3/uL (150-450) 08/31/23 00:35 MPV 7.8 fl (6.3-10.7) 08/31/23 00:35 Neut % (Auto) 96.1 % (.) 08/31/23 00:35 Lymph % (Auto) 1.9 % (.) 08/31/23 00:35 [place] % (Auto) 1.7 % (.) 08/31/23 00:35 Eos % (Auto) 0.1 % (.) 08/31/23 00:35 Baso % (Auto) 0.2 % (.) 08/31/23 00:35 Nucleat RBC Rel Count 0.0 /100 WBC (0-0.5) 08/31/23 00:35 Neut # (Auto) 17.4 x10E3/uL (1.8-7.7) H 08/31/23 00:35 Lymph # (Auto) 0.3 x10E3/uL (1.00-4.8) L 08/31/23 00:35 [place] # (Auto) 0.3 x10E3/uL (0.0-0.8) 08/31/23 00:35 Eos # (Auto) 0.0 x10E3/uL (0.0-0.45) 08/31/23 00:35 Baso # (Auto) 0.0 x10E3/uL (0.0-0.2) 08/31/23 00:35 Monocyte Dist Width 25.60 % (0.00-20.00) H 08/31/23 00:35 PT 13.1 Seconds (9.0-12.9) H 08/31/23 00:35 INR 1.1 08/31/23 00:35 APTT 27.4 Seconds (25.1-36.5) 08/31/23 00:35 PHA Creatinine Clear 41.01 08/31/23 00:35 Sodium 133 mmol/L (136-145) L 08/31/23 00:35 Potassium 3.3 mmol/L (3.5-5.1) L 08/31/23 00:35 Chloride 91 mmol/L (98-107) L 08/31/23 00:35 Carbon Dioxide 32.0 mmol/L (21.0-31.0) H 08/31/23 00:35 Anion Gap 13.3 mEq/L (6.0-15.0) 08/31/23 00:35 BUN 41 mg/dL (7-25) H 08/31/23 00:35 Creatinine 1.87 mg/dL (0.60-1.20) H 08/31/23 00:35 Est GFR (CKD-EPI) 28.954 mL/Min 08/31/23 00:35 Glucose 280 mg/dL (70-100) H 08/31/23 00:35 Lactic Acid 1.3 mmol/L (0.5-2.2) 08/31/23 03:38 Calcium 9.2 mg/dL (8.6-10.3) 08/31/23 00:35 Total Bilirubin 0.5 mg/dl (0.3-1.0) 08/31/23 00:35 Urine Color Yellow (Yellow) 08/31/23 01:06 Urine Appearance Turbid (Clear) A 08/31/23 01:06 Urine pH 6.0 (5.0-9.0) 08/31/23 01:06 Ur Specific [place] 1.013 (1.001-1.030) 08/31/23 01:06 Urine Protein Negative mg/dL (Negative) 08/31/23 01:06 Urine Glucose (UA) Normal mg/dL (Normal) 08/31/23 01:06 Urine Ketones Negative (Negative) 08/31/23 01:06 Urine Occult Blood Negative (Negative) 08/31/23 01:06 Urine Nitrite Negative (Negative) 08/31/23 01:06 Urine Bilirubin Negative (Negative) 08/31/23 01:06 Urine Urobilinogen Normal mg/dL (Normal) 08/31/23 01:06 Ur Leukocyte Esterase Negative (Negative) 08/31/23 01:06 Urine RBC 5-9 /HPF (0-4) H 08/31/23 01:06 Urine WBC 1-2 /HPF (0-4) 08/31/23 01:06 Ur Squamous Epith Cells 5-9 /HPF (0-2) H 08/31/23 01:06 Urine Bacteria None seen (None Seen) 08/31/23 01:06 Hyaline Casts 0-8 /LPF (0-8) 08/31/23 01:06 Urine Yeast Rare /HPF (None Seen) A 08/31/23 01:06 SARS-CoV-2 Rap RNA(RT-PCR) Negative (Negative) 08/31/23 00:23 Microbiology Results Micro: Microbiology - Results from entire visit 08/31/23 00:23 Nasopharyngeal SARS-CoV-2, Influenza & RSV (PCR) - Final Assessment & Plan Assessment/Plan (1) Sepsis: Plan: ? Patient is status post 1.5 L fluid bolus in the emergency room ? She is currently hypertensive and there is never any recorded issues with hypotension, will defer further fluid management at this point in time and reassess during the day. ? Patient perfusing well, her cap refill less than 2 seconds ? She received ceftriaxone 1 g and vancomycin in the emergency room ? Antibiotics switched to ceftriaxone 2 g every 24 and IV Flagyl 500 mg every 8 for diverticulosis/intra-abdominal source, her CT did not show any evidence of active diverticulitis however the symptomatology fits ? Also the differential is a possible pseudo-obstruction, patient is currently n.p.o. for this. She is not nauseous or actively vomiting at this point time, will defer NG tube. ? IV Zofran 4 mg every 6 ? Blood cultures obtained in the ED (2) Abdominal pain: Plan: ? Undifferentiated, at this point time I am most concerned for diverticulitis orpending bowel obstruction, see above (3) Fever: Plan: ? Tylenol as needed (4) Hypokalemia: Plan: ? Replenish ? Follow-up morning BMP (5) CKD (chronic kidney disease) stage 3, GFR 30-59 ml/min: Plan: ? Creatinine currently at baseline (6) Type 2 diabetes mellitus with diabetic chronic kidney disease: Plan: ? Continue home insulin regimen ? Glucose checks 3 times daily AC, #2 sliding scale (7) Constipation: Plan: ? Patient's last bowel movement was Monday, states it was very hard and formed followed by some diarrhea couple hours later Plan ? DVT prophylaxis addressed ? N.p.o. ? Full code IP vs OBS Justification Based on differential dx, clinical care plan, and risk of adverse events, if untreated, in my clinical judgement this patient requires an acute care setting as: INPATIENT because of an expectation of an over 2 midnight stay. Estimated length of stay (# of days): 3 Documented By: Medardo Darling DO 08/31/23 0447 Signed By: <Electronically signed by Medardo Darling DO> 08/31/23 0605 [facility] Work Phone: 1(717) 722-393808-03-2023 Discharge summary Author Fahad Dobson [facility] June 01, 2023 11:30am Note Date/Time June 01, 2023 11: 30am [facility] [address] [place] [address] Discharge Summary Signed Patient: Namrata Jack MR#: [id number] : 1955 Acct:[id number] Age/Sex: 67 / F Adm Date: 3 Loc: Room: [address] [place] [address]: Fahad Dobson MD Copies to: MD Latrice Acevedo MD~ Providers Date of Discharge: 06/01/23 Discharging Provider: Fahad Dobson Primary Care Provider: Latrice Bergeron Consults: 05/28/23 04:12 Consult to Occupational Therapy Routine Consult to Physical Therapy Routine 05/28/23 04:13 Consult to Cardiology Routine 05/28/23 15:18 Consult to Infectious Diseases Routine 05/30/23 07:37 Consult to Nephrology Routine 05/30/23 09:52 Consult to Speech Therapy Routine Discharge Diagnosis (1) Acute kidney injury superimposed on CKD: (2) CKD (chronic kidney disease) stage 3, GFR 30-59 ml/min: (3) Type 2 diabetes mellitus with diabetic chronic kidney disease: (4) Hypertensive chronic kidney disease with stage 1 through stage 4 chronic kidney disease, or unspecified chronic kidney disease: (5) Chronic diastolic (congestive) heart failure: (6) Bacteremia: (7) Hyponatremia: (8) Hypokalemia: Final Diagnosis Final Discharge Diagnosis: Sepsis Possible UTI Summary Hospital Course Hospital course: 63F with PMH of HTN, DM, HLD, Diabetic neuropathy, CAD s/p Stenting, Mild MR, GERD, diverticulosis, Morbid Obesity who p/w N/V/Chest pain. found with Fever, lactic acidosis? and admitted for possible UTI Acute metabolic encephalopathy due to hypoglycemia: resolved Hypoglycemia: resolved Seen and examined Resolved Clinically better More awake Blood sugar is improving D10 was discontinued Chest pain/Elevated Troponin rule out NSTEMI Resolved No more chest pain Seen by cardiology No further cardiac work up Continue aspirin and Plavix Continue Lopressor Continue Ranexa Septicemia Febrile illness ,? suspected due to urinary tract Clinically better ? No fever 1 blood culture grew Streptococcus Repeat Blood cultures are negative Urine culture is negative ID was consulted Treated initially with Rocephin and she was discharged cefdinir p.o. for 1 Gastroenteritis? Resolved No more diarrhea NO abdominal pain Hyponatremia: Improving / BMP in am Acute on CKD Treated with gentle hydration Losartan and Aldactone were held Lasix was held Nephrology was consulted Ultrasound no hydronephrosis Lasix was resumed per nephrology Keep holding losartan and Aldactone on discharge per nephrology recommended Chronic left lower extremity wound wound care nurse consulted Diabetes mellitus type, Insulin was held due to hypoglycemia was placed on D10 Blood sugar is improving Hypomagnesemia?replaced She was discharged to SNF in stable She is going to need a sleep apnea study as outpatient Condition Condition at Discharge: Stable Status at Discharge Functional status at discharge: independent ambulation Time Spent with Patient Time spent providing/coordinating discharge services (# min): 35 Complications Complications: None Diagnostic Studies Completed and Pending Studies Pending studies at discharge: 05/27/23 23:20 Blood Culture Stat 05/29/23 06:21 Blood Culture IN AM Preliminary micro results at discharge 05/29/23 06:21 Blood Culture - Preliminary Blood - Right Antecubital No Growth 3 Days 05/29/23 06:28 Blood Culture - Preliminary Blood - Right Hand No Growth 3 Days 05/27/23 22:42 Blood Culture - Preliminary Blood - Right Antecubital No Growth 4 Days Labs on day of discharge: 06/01/23 06:35: PHA Creatinine Clear 44.95, Sodium 127 L, Potassium 4.0, Chloride 93 L, Carbon Dioxide 28.3, Anion Gap 9.7, BUN 39 H, Creatinine 1.76 H, Est GFR (CKD-EPI) 31.139, Glucose 282 H, Calcium 8.5 L 06/01/23 06:25: POC Glucose 319 05/31/23 20:35: POC Glucose 364 05/31/23 15:55: POC Glucose 311 Exam Physical Exam Vital Signs: Temp Pulse Resp BP Pulse Ox O2 Del Method O2 Flow Rate 98.4 F 69 16 117/72 97 Room Air 2 06/01/23 08:00 06/01/23 08:00 06/01/23 04:00 06/01/23 08:00 06/01/23 08:00 06/01/23 08:00 05/31/23 16:30 Narrative: General patient laying in bed alert awake oriented x3 HEENT pupils are equal round reactive light Neck supple no JVD no carotid bruit CVS S1-S2 regular rate and rhythm no murmur no gallop Chest clear to auscultation percussion Abdomen soft bowel sounds normoactive no rebound no Extremities +1 edema Neurologic exam oriented x3 alert awake no focal deficit Skin exam normal no skin rash or lesion Musculoskeletal exam normal no movement limitation no joint effusion Discharge Plan Discharge Plan Activity: No Activity Restriction Diet: Diabetic and Low-Sodium Additional Instructions: Skin care BID: Theraworx protect to gluteal cleft and coccyx, thern apply zinx barrier Daily wound care to left lower leg- clean wounds with vashe, apply xeroform gauze to wound beds, top with abd pads and secure with kerlix then lisa wraps Instructions: Heart Failure, Adult (DC), Chronic kidney disease Prescriptions: New atorvastatin 80 mg Tablet 80 mg PO HS 30 Days Qty: 30 12RF cefdinir 300 mg Capsule 300 mg PO BID Qty: 14 0RF Continued hydrocodone-acetaminophen 10-325 mg tablet 10 - 325 mg PO QID PRN (Reason: Pain) Patient Comments: can have [id number] if needed zolpidem 5 mg tablet 5 mg PO HS PRN (Reason: Insomnia) Patient Comments: oxybutynin chloride 5 mg tablet 5 mg PO BID Patient Comments: Levemir U-100 Insulin 100 unit/mL solution 40 units Sub-Q HS Patient Comments: gabapentin 300 mg capsule 600 mg PO BID Patient Comments: cyclobenzaprine 10 mg Tablet 10 mg PO TID PRN (Reason: Spasms) clopidogrel [Plavix] 75 mg Tablet 75 mg PO DAILY aspirin [Aspir-Low] 81 mg Tablet,Delayed Release (Dr/Ec) 81 mg PO DAILY sertraline [Zoloft] 50 mg Tablet 100 mg PO DAILY cholecalciferol (vitamin D3) 2,000 unit Capsule 4,000 unit PO DAILY Levemir U-100 Insulin 100 unit/mL Solution 50 unit SUBCUT DAILY.0730A Rx Instructions: QAM ranolazine 500 mg tablet extended release 12 hr 500 mg PO BID Patient Comments: TAKE 1 TABLET BY MOUTH EVERY 12 HOURS famotidine 20 mg Tablet 20 mg PO QHS 30 Days Qty: 30 0RF metoprolol tartrate 25 mg Tablet 12.5 mg PO BID 30 Days Qty: 30 0RF insulin lispro 100 unit/mL solution 40 units subcut DIRECTED Rx Instructions: Takes 40 units with each meal plus sliding scale potassium chloride 20 mEq tablet extended release 20 meq PO DAILY Qty: 30 3RF furosemide 40 mg tablet 40 mg PO BID Discontinued spironolactone 25 mg Tablet 25 mg PO BID 30 Days Qty: 60 0RF losartan 25 mg Tablet 25 mg PO DAILY 30 Days Qty: 30 0RF rosuvastatin [Crestor] 20 mg Tablet 40 mg PO HS 30 Days Qty: 30 11RF Follow Up: Joceline Ortega MD [Courtesy/Consulting Physician] - 06/26/23 12:45 pm Documented By: Fahad Dobson MD 06/01/23 1124 Signed By: <Electronically signed by Fahad Dobson MD> 06/01/23 1130 [facility] Work Phone: 1(831) 464-501008-03-2023 Progress note Author Sydnie Milian [facility] June 01, 2023 1:39pm Note Date/Time June 01, 2023 8:5 7am [facility] [address] [place] [address] Nephrology Progress Note Signed Patient: Namrata Jack MR#: [id number] : 1955 Acct:[id number] Age/Sex: 67 / F Adm Date: 3 Loc: Room: [address] [place] [address] Type: ADM IN Attending Dr: Fahad Dobson MD Copies to: ~ Date of Service: 06/01/2023 Subjective Subjective Narrative: This is a 67-year-old female with a medical history of type 2 diabetes mellitus,hypertension, chronic diastolic congestive heart failure, mild aortic stenosis, CAD s/p PCI, dyslipidemia was presented to the emergency room for nausea and vomiting. On presentation in the emergency room patient was noticed to have a serum creatinine 1.0 mg/dL, hyponatremia with serum sodium 131 mmol/L. She was given fluid bolus in the emergency room and was started on maintenance fluid forpossible hypovolemia. Patient was recently admitted at [facility] for acute on chronic diastolic congestive heart failure and was discharged home on oral Lasix losartan and spironolactone. Patient was also found to have a elevated troponin and was seen by cardiology for type II NC. She was also found to have a fever and had a blood culture done on presentation which came out positive for strep. She was empirically started on IV ceftriaxone for possible UTI. Her hospital course was also complicated by hypoglycemia so insulin glargine was held and she was started on D10 water. Patient was seen by ID for positive blood culture and bacteremia. Her renal function continues to decline during the hospital stay despite holding diureticsand IV fluid resuscitation. Her serum creatinine went up to 2.2 mg/dL and she continues to have a persistent hyponatremia. Nephrology is consulted for JOY onCKD and hyponatremia management. Interval history She is feeling better denies any chest pain palpitation cough nausea vomiting diarrhea shortness of breath. She reported that her appetite has improved. Sheate all of her breakfast this morning. Exam Physical Exam Vital Signs: Temp Pulse Resp BP Pulse Ox O2 Del Method O2 Flow Rate 97.8 F 68 16 125/76 96 Room Air 2 06/01/23 00:00 06/01/23 04:00 06/01/23 04:00 06/01/23 04:00 06/01/23 04:00 06/01/23 04:00 05/31/23 16:30 Narrative: General: Appears comfortable and not in distress Heart: S1-S2, no rub Lung: Bilateral air entry, no wheezing or crackles Abdomen: Soft, positive bowel sounds Extremities: Bilateral chronic lymphedema, no cyanosis Head: Atraumatic, normocephalic Ear: No gross hearing Deficit or external ear redness Eyes: No pallor or redness Neck: No JVD or visible mass Skin: No rashes or warm to touch [employer]PER[employer]: Awake,Alert, following simple command Musculoskeletal: No joint swelling or limitation of movement Psychiatric: Cooperative, normal mood and affect Objective Intake and Output I&O: Intake & Output 05/29/23 05/30/23 05/31/23 06/01/23 23:59 23:59 23:59 23:59 Intake Total 550 / 550 1450 / 1450 590 / 590 250 / 250 Output Total 900 / 900 1650 / 1650 Balance 550 / 550 550 / 550 -1060 / -1060 250 / 250 Weight 154.4 kg 152.7 kg 153.6 kg 154.1 kg Meds and Allergies Meds: Active Medications Acetaminophen (Acetaminophen 325 Mg Tablet) 650 mg PO Q4H PRN PRN Reason: Pain Scale 1 - 5 Stop: 05/27/24 04:09 Last Admin: 05/28/23 09:02 Dose: 650 mg Hydrocodone Bitart/Acetaminophen (Hydrocodone/Acetaminophen 10-325 Mg Tablet) 1tab PO QID PRN PRN Reason: Pain Last Admin: 05/31/23 09:03 Dose: 1 tab Albuterol (Albuterol Neb 2.5 Mg/3 Ml Vial.Neb) 2.5 mg INHALATION Q2H PRN PRN Reason: Shortness Of Breath Stop: 05/27/24 04:09 Last Admin: 06/01/23 01:10 Dose: 2.5 mg Aspirin (Aspirin 81 Mg Tablet.) 81 mg PO DAILY [facility] Stop: 05/27/24 08:59 Last Admin: 05/31/23 08:52 Dose: 81 mg Atorvastatin Calcium (Atorvastatin 80 Mg Tablet) 80 mg PO HS [facility] Stop: 05/27/24 21:59 Last Admin: 05/31/23 22:31 Dose: 80 mg Clopidogrel Bisulfate (Clopidogrel Bisulfate 75 Mg Tablet) 75 mg PO DAILY [facility] Stop: 05/27/24 08:59 Last Admin: 05/31/23 08:52 Dose: 75 mg Cyclobenzaprine HCl (Cyclobenzaprine 10 Mg Tablet) 10 mg PO TID PRN PRN Reason: Spasms Stop: 05/27/24 04:07 Last Admin: 05/30/23 20:41 Dose: 10 mg Dextrose (Dextrose 50% In Water 25 Gm/50 Ml Syringe) 0 gm IV-PUSH PRN PRN PRN Reason: Hypoglycemia Stop: 05/27/24 04:09 Last Admin: 05/29/23 16:52 Dose: 25 gm Docusate Sodium (Docusate 100 Mg Capsule) 200 mg PO BID PRN PRN Reason: Constipation Stop: 05/27/24 04:09 Last Admin: 05/28/23 18:21 Dose: 200 mg Enoxaparin Sodium (Enoxaparin 40 Mg/0.4 Ml Syringe) 40 mg SUBCUT DAILY@1000 [facility] Stop: 05/31/24 09:59 Gabapentin (Gabapentin 300 Mg Capsule) 600 mg PO BID [facility] Stop: 05/27/24 08:59 Last Admin: 05/31/23 22:35 Dose: 600 mg Glucose (Dextrose 40% Gel 15 Gm Tube) 0 gm PO PRN PRN PRN Reason: Hypoglycemia Stop: 05/27/24 04:09 Insulin Aspart (Insulin Aspart 300 Units/3 Ml Insuln.Pen) 0 units SUBCUT TID.[facility]; Protocol Stop: 05/27/24 07:59 Last Admin: 05/29/23 17:05 Dose: Not Given Insulin Aspart (Insulin Aspart 300 Units/3 Ml Insuln.Pen) 40 units SUBCUT TID.WITH.MEALS [facility] Stop: 05/27/24 07:59 Last Admin: 05/29/23 17:05 Dose: Not Given Insulin Glargine (Insulin Glargine 300 Units/3 Ml Insuln.Pen) 50 units SUBCUT DAILY.0730A [facility] Stop: 05/27/24 07:29 Last Admin: 05/29/23 08:49 Dose: 50 units Insulin Glargine (Insulin Glargine 300 Units/3 Ml Insuln.Pen) 40 units SUBCUT [facility] Stop: 05/27/24 21:59 Last Admin: 05/28/23 21:12 Dose: Not Given Metoprolol Tartrate (Metoprolol Tartrate 12.5 Mg Tablet) 12.5 mg PO BID [facility] Stop: 05/27/24 08:59 Last Admin: 05/31/23 22:31 Dose: 12.5 mg Nystatin (Nystatin Susp 500,000 Unit/5 Ml Udc) 500,000 unit PO QID [facility] Stop: 05/30/24 08:59 Last Admin: 05/31/23 22:31 Dose: 500,000 unit Oxybutynin Chloride (Oxybutynin Chloride 5 Mg Tablet) 5 mg PO BID [facility] Stop: 05/27/24 08:59 Last Admin: 05/31/23 22:31 Dose: 5 mg Pantoprazole Sodium (Pantoprazole 40 Mg Tablet.Dr) 40 mg PO BID [facility] Stop: 05/30/24 08:59 Last Admin: 05/31/23 22:31 Dose: 40 mg Prochlorperazine Edisylate (Prochlorperazine Edisylate 10 Mg/2 Ml Vial) 5 mg IV- PUSH Q4H PRN PRN Reason: Nausea And Vomiting Stop: 05/27/24 04:09 Last Admin: 05/31/23 09:03 Dose: 5 mg Ranolazine (Ranolazine 500 Mg Tab.Er.12h) 500 mg PO BID [facility] Stop: 05/27/24 08:59 Last Admin: 05/31/23 22:32 Dose: 500 mg Sertraline HCl (Sertraline 100 Mg Tablet) 100 mg PO DAILY [facility] Stop: 05/27/24 08:59 Last Admin: 05/31/23 08:52 Dose: 100 mg Spironolactone (Spironolactone 25 Mg Tablet) 25 mg PO BID [facility] Stop: 05/27/24 08:59 Sucralfate (Sucralfate 1 Gm Tablet) 1 gm PO Q6HR [facility] Stop: 05/30/24 11:59 Last Admin: 06/01/23 07:02 Dose: 1 gm Zinc Oxide (Zinc Oxide 20% Ointment 56 Gm Tube) 1 applic TOPICAL PRN PRN PRN Reason: Rash Stop: 05/28/24 10:51 Zolpidem Tartrate (Zolpidem 5 Mg Tablet) 5 mg PO HS PRN PRN Reason: Insomnia Stop: 11/24/23 04:07 Last Admin: 05/30/23 20:41 Dose: 5 mg Allergies Penicillins Allergy (Severe, Verified 05/27/23 22:27) Anaphylaxis IV Dye Allergy (Severe, Uncoded 05/27/23 22:27) Anaphylaxis Results Labs 05/30/23 05:43 06/01/23 06:35 Labs: 06/01/23 06:35 BUN 39 H Creatinine 1.76 H Radiology Impressions Impressions - last 24 hours: Any impression(s) listed above is documentation that was entered by the reading physician into a diagnostic report(s) for Namrata Jack. I have reviewed the report(s) and am incorporating any findings in the treatment plan of this patient where applicable. A&P - Nephrology Assessment/Plan (1) Acute kidney injury superimposed on CKD: Plan: She has JOY possibly due to the relative hypotension in setting of infection andurinary retention (2) CKD (chronic kidney disease) stage 3, GFR 30-59 ml/min: Plan: She has CKD due to the longstanding DM, HTN and chronic cardiorenal syndrome with baseline serum creatinine 1.3 mg/dL. (3) Type 2 diabetes mellitus with diabetic chronic kidney disease: Plan: She has insulin-dependent type 2 diabetes mellitus. She was taking insulin glargine at home. (4) Hypertensive chronic kidney disease with stage 1 through stage 4 chronic kidney disease, or unspecified chronic kidney disease: Plan: Her blood pressure has improved. She was taking losartan, spironolactone, Lasixand metoprolol at home. (5) Chronic diastolic (congestive) heart failure: Plan: She appears to be well compensated. Her echocardiogram in April 2023 showed EF 65-70%, mild to moderate diastolic dysfunction, mild aortic stenosis (6) Bacteremia: Plan: Patient was presented with fever and has a positive blood culture with strep dysgalactiae. She is currently on ceftriaxone ID has been following the patient. (7) Hyponatremia: Plan: She has hyponatremia but appears to be euvolemic. This may be due to the nauseainduced or medication related like sertraline. (8) Hypokalemia: Plan: She has hypokalemia possibly due to the vomiting. Plan * Okay to resume the home dose of the Lasix * Will continue to hold home dose of the spironolactone and losartan. * Continue DM management as per the primary hospitalist team. * Continue management of the bacteremia as per ID. * Check renal function 2 to 3 days after discharge. Patient can be discharged from renal standpoint. Outpatient follow-up in our office 4 to 6 weeks. Documented By: Sydnie Milian MD 06/01/23 0853 Signed By: <Electronically signed by Sydnie Milian MD> 06/01/23 8939 [facility] Work Phone: [phone]) 644-829408-02-2023 Progress note Author Sydnie Milian [facility] May 31, 2023 11:37am Note Date/Time May 31, 2023 11: 32am [facility] [address] [place] [address] Nephrology Progress Note Signed Patient: Namrata Jack MR#: [id number] : 1955 Acct:[id number] Age/Sex: 67 / F Adm Date: 3 Loc: Room: 1D5801-5 Type: ADM IN Attending Dr: Fahad Dobson MD Copies to: ~ Date of Service: 05/31/2023 Subjective Subjective Narrative: This is a 67-year-old female with a medical history of type 2 diabetes mellitus,hypertension, chronic diastolic congestive heart failure, mild aortic stenosis, CAD s/p PCI, dyslipidemia was presented to the emergency room for nausea and vomiting. On presentation in the emergency room patient was noticed to have a serum creatinine 1.0 mg/dL, hyponatremia with serum sodium 131 mmol/L. She was given fluid bolus in the emergency room and was started on maintenance fluid forpossible hypovolemia. Patient was recently admitted at [facility] for acute on chronic diastolic congestive heart failure and was discharged home on oral Lasix losartan and spironolactone. Patient was also found to have a elevated troponin and was seen by cardiology for type II NC. She was also found to have a fever and had a blood culture done on presentation which came out positive for strep. She was empirically started on IV ceftriaxone for possible UTI. Her hospital course was also complicated by hypoglycemia so insulin glargine was held and she was started on D10 water. Patient was seen by ID for positive blood culture and bacteremia. Her renal function continues to decline during the hospital stay despite holding diureticsand IV fluid resuscitation. Her serum creatinine went up to 2.2 mg/dL and she continues to have a persistent hyponatremia. Nephrology is consulted for JOY onCKD and hyponatremia management. Interval history Patient was seen and examined bedside. She is feeling better denies any chest pain palpitation cough nausea vomiting diarrhea shortness of breath. Her blood sugars has improved and D10 was discontinued. Exam Physical Exam Vital Signs: Temp Pulse Resp BP Pulse Ox O2 Del Method O2 Flow Rate 97.7 F 66 14 115/71 98 Nasal Cannula 2 05/31/23 08:00 05/31/23 08:00 05/31/23 08:00 05/31/23 08:00 05/31/23 08:00 05/31/23 08:00 05/31/23 08:00 Narrative: General: Appears comfortable and not in distress Heart: S1-S2, no rub Lung: Bilateral air entry, no wheezing or crackles Abdomen: Soft, positive bowel sounds Extremities: Bilateral chronic lymphedema, no cyanosis Head: Atraumatic, normocephalic Ear: No gross hearing Deficit or external ear redness Eyes: No pallor or redness Neck: No JVD or visible mass Skin: No rashes or warm to touch [employer]: Awake,Alert, following simple command Musculoskeletal: No joint swelling or limitation of movement Psychiatric: Cooperative, normal mood and affect Objective Intake and Output I&O: Intake & Output 05/28/23 05/29/23 05/30/23 05/31/23 23:59 23:59 23:59 23:59 Intake Total 4990 / 4990 550 / 550 1450 / 1450 50 / 50 Output Total 400 / 400 900 / 900 1250 / 1250 Balance 4590 / 4590 550 / 550 550 / 550 -1200 / -1200 Weight 151.5 kg 154.4 kg 152.7 kg 153.6 kg Meds and Allergies Meds: Active Medications Acetaminophen (Acetaminophen 325 Mg Tablet) 650 mg PO Q4H PRN PRN Reason: Pain Scale 1 - 5 Stop: 05/27/24 04:09 Last Admin: 05/28/23 09:02 Dose: 650 mg Hydrocodone Bitart/Acetaminophen (Hydrocodone/Acetaminophen 10-325 Mg Tablet) 1tab PO QID PRN PRN Reason: Pain Last Admin: 05/31/23 09:03 Dose: 1 tab Albuterol (Albuterol Neb 2.5 Mg/3 Ml Vial.Neb) 2.5 mg INHALATION Q2H PRN PRN Reason: Shortness Of Breath Stop: 05/27/24 04:09 Last Admin: 05/31/23 06:46 Dose: 2.5 mg Aspirin (Aspirin 81 Mg Tablet.) 81 mg PO DAILY [facility] Stop: 05/27/24 08:59 Last Admin: 05/31/23 08:52 Dose: 81 mg Atorvastatin Calcium (Atorvastatin 80 Mg Tablet) 80 mg PO HS [facility] Stop: 05/27/24 21:59 Last Admin: 05/30/23 20:41 Dose: 80 mg Clopidogrel Bisulfate (Clopidogrel Bisulfate 75 Mg Tablet) 75 mg PO DAILY [facility] Stop: 05/27/24 08:59 Last Admin: 05/31/23 08:52 Dose: 75 mg Cyclobenzaprine HCl (Cyclobenzaprine 10 Mg Tablet) 10 mg PO TID PRN PRN Reason: Spasms Stop: 05/27/24 04:07 Last Admin: 05/30/23 20:41 Dose: 10 mg Dextrose (Dextrose 50% In Water 25 Gm/50 Ml Syringe) 0 gm IV-PUSH PRN PRN PRN Reason: Hypoglycemia Stop: 05/27/24 04:09 Last Admin: 05/29/23 16:52 Dose: 25 gm Docusate Sodium (Docusate 100 Mg Capsule) 200 mg PO BID PRN PRN Reason: Constipation Stop: 05/27/24 04:09 Last Admin: 05/28/23 18:21 Dose: 200 mg Enoxaparin Sodium (Enoxaparin 30 Mg/0.3 Ml Syringe) 30 mg SUBCUT DAILY@1000 [facility] Stop: 05/30/24 09:59 Last Admin: 05/31/23 09:53 Dose: 30 mg Gabapentin (Gabapentin 300 Mg Capsule) 600 mg PO BID [facility] Stop: 05/27/24 08:59 Last Admin: 05/31/23 08:52 Dose: 600 mg Glucose (Dextrose 40% Gel 15 Gm Tube) 0 gm PO PRN PRN PRN Reason: Hypoglycemia Stop: 05/27/24 04:09 Insulin Aspart (Insulin Aspart 300 Units/3 Ml Insuln.Pen) 0 units SUBCUT TID[facility]; Protocol Stop: 05/27/24 07:59 Last Admin: 05/29/23 17:05 Dose: Not Given Insulin Aspart (Insulin Aspart 300 Units/3 Ml Insuln.Pen) 40 units SUBCUT TID.WITH.MEALS [facility] Stop: 05/27/24 07:59 Last Admin: 05/29/23 17:05 Dose: Not Given Insulin Glargine (Insulin Glargine 300 Units/3 Ml Insuln.Pen) 50 units SUBCUT DAILY.0730A [facility] Stop: 05/27/24 07:29 Last Admin: 05/29/23 08:49 Dose: 50 units Insulin Glargine (Insulin Glargine 300 Units/3 Ml Insuln.Pen) 40 units SUBCUT HS [facility] Stop: 05/27/24 21:59 Last Admin: 05/28/23 21:12 Dose: Not Given Metoprolol Tartrate (Metoprolol Tartrate 12.5 Mg Tablet) 12.5 mg PO BID [facility] Stop: 05/27/24 08:59 Last Admin: 05/31/23 08:52 Dose: 12.5 mg Nystatin (Nystatin Susp 500,000 Unit/5 Ml Udc) 500,000 unit PO QID [facility] Stop: 05/30/24 08:59 Last Admin: 05/31/23 09:52 Dose: 500,000 unit Oxybutynin Chloride (Oxybutynin Chloride 5 Mg Tablet) 5 mg PO BID [facility] Stop: 05/27/24 08:59 Last Admin: 05/31/23 08:51 Dose: 5 mg Pantoprazole Sodium (Pantoprazole 40 Mg Tablet.Dr) 40 mg PO BID [facility] Stop: 05/30/24 08:59 Last Admin: 05/31/23 09:52 Dose: 40 mg Prochlorperazine Edisylate (Prochlorperazine Edisylate 10 Mg/2 Ml Vial) 5 mg IV- PUSH Q4H PRN PRN Reason: Nausea And Vomiting Stop: 05/27/24 04:09 Last Admin: 05/31/23 09:03 Dose: 5 mg Ranolazine (Ranolazine 500 Mg Tab.Er.12h) 500 mg PO BID [facility] Stop: 05/27/24 08:59 Last Admin: 05/31/23 08:52 Dose: 500 mg Sertraline HCl (Sertraline 100 Mg Tablet) 100 mg PO DAILY [facility] Stop: 05/27/24 08:59 Last Admin: 05/31/23 08:52 Dose: 100 mg Spironolactone (Spironolactone 25 Mg Tablet) 25 mg PO BID [facility] Stop: 05/27/24 08:59 Sucralfate (Sucralfate 1 Gm Tablet) 1 gm PO Q6HR [facility] Stop: 05/30/24 11:59 Last Admin: 05/31/23 11:16 Dose: 1 gm Zinc Oxide (Zinc Oxide 20% Ointment 56 Gm Tube) 1 applic TOPICAL PRN PRN PRN Reason: Rash Stop: 05/28/24 10:51 Zolpidem Tartrate (Zolpidem 5 Mg Tablet) 5 mg PO HS PRN PRN Reason: Insomnia Stop: 11/24/23 04:07 Last Admin: 05/30/23 20:41 Dose: 5 mg Allergies Penicillins Allergy (Severe, Verified 05/27/23 22:27) Anaphylaxis IV Dye Allergy (Severe, Uncoded 05/27/23 22:27) Anaphylaxis Results Labs 05/30/23 05:43 05/31/23 06:11 Labs: 05/31/23 06:11 BUN 41 H Creatinine 1.91 H Radiology Impressions Impressions - last 24 hours: Impressions Renal Ultrasound 05/30/23 11:40 IMPRESSION: No acute findings. Impression dictated by: Chapin Maher Jr., D.O.05/30/2023 8:39 PM Dictation Location: [place] [address] Any impression(s) listed above is documentation that was entered by the reading physician into a diagnostic report(s) for Namrata Jack. I have reviewed the report(s) and am incorporating any findings in the treatment plan of this patient where applicable. A&P - Nephrology Assessment/Plan (1) Acute kidney injury superimposed on CKD: Plan: She has JOY possibly due to the relative hypotension in setting of infection andurinary retention (2) CKD (chronic kidney disease) stage 3, GFR 30-59 ml/min: Plan: She has CKD due to the longstanding DM, HTN and chronic cardiorenal syndrome with baseline serum creatinine 1.3 mg/dL. (3) Type 2 diabetes mellitus with diabetic chronic kidney disease: Plan: She has insulin-dependent type 2 diabetes mellitus. She was taking insulin glargine at home. (4) Hypertensive chronic kidney disease with stage 1 through stage 4 chronic kidney disease, or unspecified chronic kidney disease: Plan: Her blood pressure is relatively low. She was taking losartan, spironolactone, Lasix and metoprolol at home. (5) Chronic diastolic (congestive) heart failure: Plan: She appears to be well compensated. Her echocardiogram in April 2023 showed EF 65-70%, mild to moderate diastolic dysfunction, mild aortic stenosis (6) Bacteremia: Plan: Patient was presented with fever and has a positive blood culture with strep dysgalactiae. She is currently on ceftriaxone ID has been following the patient. (7) Hyponatremia: Plan: She has hyponatremia but appears to be euvolemic. This may be due to the nauseainduced or medication related like sertraline. (8) Hypokalemia: Plan: She has hypokalemia possibly due to the vomiting. Plan * Continue to hold home dose of the spironolactone, Lasix and losartan. * Her renal ultrasound showed urinary retention. Garrett catheter has been placed and she is having good urine output. * Continue DM management as per the primary hospitalist team. * Continue management of the bacteremia as per ID. * Check renal function daily monitor input output * Documented By: Sydnie Milian MD 05/31/238 Signed By: <Electronically signed by Sydnie Milian MD> 05/31/23 1137 [facility] Work Phone: [phone]) [phone] Progress note Author Deep Eubanks [facility] May 31, 2023 9:48am Note Date/Time May 31, 2023 9:4 8am [facility] [address] [place] [address] Infect. Disease Progress Note Signed Patient: Namrata Jack MR#: [id number] : 1955 Acct:[id number] Age/Sex: 67 / F Adm Date: 3 Loc: Room: [address] [place] [address] Type: ADM IN Attending Dr: Fahad Dobson MD Copies to: ~ Date of Service: 05/31/2023 Subjective Interval history: Patient is asleep in a chair. Appears comfortable. Exam Physical Exam Vital Signs: Temp Pulse Resp BP Pulse Ox O2 Del Method O2 Flow Rate 97.7 F 66 14 115/71 98 Nasal Cannula 2 05/31/23 08:00 05/31/23 08:00 05/31/23 08:00 05/31/23 08:00 05/31/23 08:00 05/31/23 08:00 05/31/23 08:00 Const General: no acute distress Orientation: other (sleeping) HEENT Head: normal to inspection Ears: hearing grossly normal bilaterally Mouth: oral mucosae normal Eyes General: appearance normal, both eyes and all related structures Neck Neck: normal visual inspection Chest Chest palpation & inspection: normal inspection of the chest Resp Effort & Inspection: normal respiratory effort Auscultation: clear to auscultation bilaterally Cardio Palpation: normal PMI Rate: regular rate Rhythm: regular rhythm GI Inspection: normal to inspection Palpation: soft and nontender Auscultation: normal bowel sounds Skin General: other (Left lower extremity visualized. Superficial ulcerations noted. ) Other: LLE wrapped but erythematous changes on left lower extremity chronic do not appear cellulitic seen yesterday Neuro General: other (sleeping) Extrem General: abnormal to inspection (Lisa bandages) Objective Labs CBC/BMP: CBC, BMP 05/31/23 06:11 Sodium 127 L Potassium 3.5 Chloride 93 L Carbon Dioxide 28.7 Anion Gap 8.8 BUN 41 H Creatinine 1.91 H Calcium 8.3 L Labs: 05/31/23 06:11 BUN 41 H Creatinine 1.91 H Microbiology Microbiology: Microbiology - Results from entire visit 05/29/23 02:00 Stool Stool Culture - Preliminary 05/27/23 23:20 Blood - Left Antecubital Blood Culture - Final Strep dysgalactiae 05/27/23 23:20 Blood - Left Antecubital Bacterial ID (NA Multiplex Assay) - Final 05/29/23 06:28 Blood - Right Hand Blood Culture - Preliminary No Growth 2 Days 05/29/23 06:21 Blood - Right Antecubital Blood Culture - Preliminary No Growth 2 Days 05/27/23 22:42 Blood - Right Antecubital Blood Culture - Preliminary No Growth 3 Days 05/28/23 00:42 Urine - Straight Cath Urine Culture - Final No Growth 2 Days 05/29/23 02:00 Stool Stool Lactoferrin - Final Allergies and Medications Allergies and Active Meds Allergies Penicillins Allergy (Severe, Verified 05/27/23 22:27) Anaphylaxis IV Dye Allergy (Severe, Uncoded 05/27/23 22:27) Anaphylaxis Active Medications Acetaminophen (Acetaminophen 325 Mg Tablet) 650 mg PO Q4H PRN PRN Reason: Pain Scale 1 - 5 Stop: 05/27/24 04:09 Last Admin: 05/28/23 09:02 Dose: 650 mg Hydrocodone Bitart/Acetaminophen (Hydrocodone/Acetaminophen 10-325 Mg Tablet) 1tab PO QID PRN PRN Reason: Pain Last Admin: 05/31/23 09:03 Dose: 1 tab Albuterol (Albuterol Neb 2.5 Mg/3 Ml Vial.Neb) 2.5 mg INHALATION Q2H PRN PRN Reason: Shortness Of Breath Stop: 05/27/24 04:09 Last Admin: 05/31/23 06:46 Dose: 2.5 mg Aspirin (Aspirin 81 Mg Tablet.) 81 mg PO DAILY [facility] Stop: 05/27/24 08:59 Last Admin: 05/31/23 08:52 Dose: 81 mg Atorvastatin Calcium (Atorvastatin 80 Mg Tablet) 80 mg PO [facility] Stop: 05/27/24 21:59 Last Admin: 05/30/23 20:41 Dose: 80 mg Clopidogrel Bisulfate (Clopidogrel Bisulfate 75 Mg Tablet) 75 mg PO DAILY [facility] Stop: 05/27/24 08:59 Last Admin: 05/31/23 08:52 Dose: 75 mg Cyclobenzaprine HCl (Cyclobenzaprine 10 Mg Tablet) 10 mg PO TID PRN PRN Reason: Spasms Stop: 05/27/24 04:07 Last Admin: 05/30/23 20:41 Dose: 10 mg Dextrose (Dextrose 50% In Water 25 Gm/50 Ml Syringe) 0 gm IV-PUSH PRN PRN PRN Reason: Hypoglycemia Stop: 05/27/24 04:09 Last Admin: 05/29/23 16:52 Dose: 25 gm Docusate Sodium (Docusate 100 Mg Capsule) 200 mg PO BID PRN PRN Reason: Constipation Stop: 05/27/24 04:09 Last Admin: 05/28/23 18:21 Dose: 200 mg Enoxaparin Sodium (Enoxaparin 30 Mg/0.3 Ml Syringe) 30 mg SUBCUT DAILY@1000 [facility] Stop: 05/30/24 09:59 Gabapentin (Gabapentin 300 Mg Capsule) 600 mg PO BID [facility] Stop: 05/27/24 08:59 Last Admin: 05/31/23 08:52 Dose: 600 mg Glucose (Dextrose 40% Gel 15 Gm Tube) 0 gm PO PRN PRN PRN Reason: Hypoglycemia Stop: 05/27/24 04:09 Insulin Aspart (Insulin Aspart 300 Units/3 Ml Insuln.Pen) 0 units SUBCUT TID[facility]; Protocol Stop: 05/27/24 07:59 Last Admin: 05/29/23 17:05 Dose: Not Given Insulin Aspart (Insulin Aspart 300 Units/3 Ml Insuln.Pen) 40 units SUBCUT TID.WITH.MEALS [facility] Stop: 05/27/24 07:59 Last Admin: 05/29/23 17:05 Dose: Not Given Insulin Glargine (Insulin Glargine 300 Units/3 Ml Insuln.Pen) 50 units SUBCUT DAILY.0730A [facility] Stop: 05/27/24 07:29 Last Admin: 05/29/23 08:49 Dose: 50 units Insulin Glargine (Insulin Glargine 300 Units/3 Ml Insuln.Pen) 40 units SUBCUT HS [facility] Stop: 05/27/24 21:59 Last Admin: 05/28/23 21:12 Dose: Not Given Metoprolol Tartrate (Metoprolol Tartrate 12.5 Mg Tablet) 12.5 mg PO BID [facility] Stop: 05/27/24 08:59 Last Admin: 05/31/23 08:52 Dose: 12.5 mg Nystatin (Nystatin Susp 500,000 Unit/5 Ml Udc) 500,000 unit PO QID [facility] Stop: 05/30/24 08:59 Oxybutynin Chloride (Oxybutynin Chloride 5 Mg Tablet) 5 mg PO BID [facility] Stop: 05/27/24 08:59 Last Admin: 05/31/23 08:51 Dose: 5 mg Pantoprazole Sodium (Pantoprazole 40 Mg Tablet.Dr) 40 mg PO BID [facility] Stop: 05/30/24 08:59 Prochlorperazine Edisylate (Prochlorperazine Edisylate 10 Mg/2 Ml Vial) 5 mg IV- PUSH Q4H PRN PRN Reason: Nausea And Vomiting Stop: 05/27/24 04:09 Last Admin: 05/31/23 09:03 Dose: 5 mg Ranolazine (Ranolazine 500 Mg Tab.Er.12h) 500 mg PO BID [facility] Stop: 05/27/24 08:59 Last Admin: 05/31/23 08:52 Dose: 500 mg Sertraline HCl (Sertraline 100 Mg Tablet) 100 mg PO DAILY [facility] Stop: 05/27/24 08:59 Last Admin: 05/31/23 08:52 Dose: 100 mg Spironolactone (Spironolactone 25 Mg Tablet) 25 mg PO BID [facility] Stop: 05/27/24 08:59 Sucralfate (Sucralfate 1 Gm Tablet) 1 gm PO Q6HR [facility] Stop: 05/30/24 11:59 Zinc Oxide (Zinc Oxide 20% Ointment 56 Gm Tube) 1 applic TOPICAL PRN PRN PRN Reason: Rash Stop: 05/28/24 10:51 Zolpidem Tartrate (Zolpidem 5 Mg Tablet) 5 mg PO HS PRN PRN Reason: Insomnia Stop: 11/24/23 04:07 Last Admin: 05/30/23 20:41 Dose: 5 mg A&P - Infectious Disease Assessment/Plan (1) Positive blood culture: Code(s): R78.81 - Bacteremia Status: Acute Plan Patient blood culture 1 set had strep dysgalactiae. Blood cultures today remainnegative. Urinalysis not that impressive but her creatinine was higher than her baseline and it appears they are considering UTI as a diagnosis. She clearly came in due to vomiting and then was admitted with fever and concerns ofchest pain. It seemed that she had acute onset of persistent nausea and vomiting that has now resolved. She denies any sick contacts around her. She was having diarrhea prior to coming to the hospital but has not had diarrhea since. Patient completed 3 days of ceftriaxone. The hospitalist note today states continue ceftriaxone blood the hospitalist is also going to discontinue this antibiotic. Again without obvious source perhaps it was just translocationwhich would not require a significant course of antibiotics. At this point in time we will not adjust anything until I speak with the hospitalist. Documented By: Deep Eubanks MD 05/31/23 0942 Signed By: <Electronically signed by MD Deep Eubanks> 05/31/23 0948 [facility] Work Phone: [phone] 390-437208-02-2023 Progress note Author Fahad Dobson [facility] May 31, 2023 8:41am Note Date/Time May 31, 2023 7:0 8am [facility] [address] [place] [address] Hospitalist Progress Note Signed Patient: Namrata Jack MR#: [id number] : 1955 Acct:[id number] Age/Sex: 67 / F Adm Date: 3 Loc: Room: [address] [place] [address] Type: ADM IN Attending Dr: Fahad Dobson MD Copies to: ~ Date of Service: 05/31/2023 Subjective Subjective Narrative: Assessment And Plan 63F with PMH of HTN, DM, HLD, Diabetic neuropathy, CAD s/p Stenting, Mild MR, GERD, diverticulosis, Morbid Obesity who p/w N/V/Chest pain. found with Fever, lactic acidosis and admitted for possible UTI Acute metabolic encephalopathy due to hypoglycemia: resolved Hypoglycemia: resolved Seen and examined Resolved Clinically better More awake Blood sugar is improving D10 was discontinued Chest pain/Elevated Troponin rule out NSTEMI Resolved No more chest pain Seen by cardiology No further cardiac work up Continue aspirin and Plavix Continue Lopressor Continue Ranexa Febrile illness , suspected due to urinary tract Clinically better No fever Blood cultures are negative Urine culture is negative Discontinue Rocephin Gastroenteritis Resolved No more diarrhea NO abdominal pain Hyponatremia: Improving / BMP in am Acute on CKD Kidney function is improving down to 1.9 Hold Losartan Keep holding Lasix US kidney : No acute finding Nephrology input appreciated Chronic left lower extremity wound wound care nurse consulted Diabetes mellitus type, Insulin was held due to hypoglycemia was placed on D10 Blood sugar is improving Hypomagnesemia replaced PT OT evaluation Disposition: Plan to discharge to acute rehab Waiting for pre-CERT Exam Physical Exam Vital Signs: Temp Pulse Resp BP Pulse Ox O2 Del Method O2 Flow Rate 97.7 F 64 18 121/64 98 Room Air 2 05/31/23 03:42 05/31/23 06:53 05/31/23 06:53 05/31/23 03:42 05/31/23 03:42 05/31/23 03:42 05/31/23 03:38 Narrative: General patient laying in bed alert awake oriented x3 HEENT pupils are equal round reactive light Neck supple no JVD no carotid bruit CVS S1-S2 regular rate and rhythm no murmur no gallop Chest clear to auscultation percussion Abdomen soft bowel sounds normoactive no rebound no Extremities +1 edema Neurologic exam oriented x3 alert awake no focal deficit Skin exam normal no skin rash or lesion Musculoskeletal exam normal no movement limitation no joint effusion Objective Lab Results 05/30/23 05:43 05/30/23 05:43 Microbiology Results Microbiology 05/29/23 06:28 Blood - Right Hand Blood Culture - Preliminary No Growth 2 Days 05/29/23 06:21 Blood - Right Antecubital Blood Culture - Preliminary No Growth 2 Days 05/27/23 22:42 Blood - Right Antecubital Blood Culture - Preliminary No Growth 3 Days 05/29/23 02:00 Stool Stool Culture - Preliminary 05/28/23 00:42 Urine - Straight Cath Urine Culture - Final No Growth 2 Days 05/27/23 23:20 Blood - Left Antecubital Blood Culture - Preliminary Strep dysgalactiae 05/27/23 23:20 Blood - Left Antecubital Bacterial ID (NA Multiplex Assay) - Final Meds Allergies and Active Meds Allergies Penicillins Allergy (Severe, Verified 05/27/23 22:27) Anaphylaxis IV Dye Allergy (Severe, Uncoded 05/27/23 22:27) Anaphylaxis Active Meds: Active Medications Generic Name Dose Route Start Last Admin Trade Name Freq PRN Reason Stop Dose Admin Acetaminophen 650 mg 05/28/23 04:10 05/28/23 09:02 Acetaminophen 325 Mg Tablet PO 05/27/24 04:09 650 mg Q4H PRN Administration Pain Scale 1 - 5 Hydrocodone Bitart/Acetaminophen 1 tab 05/28/23 04:08 05/30/23 20:41 Hydrocodone/Acetaminophen 10-325 Mg Tablet PO 1 tab QID PRN Administration Pain Albuterol 2.5 mg 05/28/23 04:10 05/31/23 06:46 Albuterol Neb 2.5 Mg/3 Ml Vial.Neb INHALATION 05/27/24 04:09 2.5 mg Q2H PRN Administration Shortness Of Breath Aspirin 81 mg 05/28/23 09:00 05/30/23 08:25 Aspirin 81 Mg Tablet. PO 05/27/24 08:59 81 mg DAILY TONY Administration Atorvastatin Calcium 80 mg 05/28/23 22:00 05/30/23 20:41 Atorvastatin 80 Mg Tablet PO 05/27/24 21:59 80 mg HS TONY Administration Clopidogrel Bisulfate 75 mg 05/28/23 09:00 05/30/23 08:25 Clopidogrel Bisulfate 75 Mg Tablet PO 05/27/24 08:59 75 mg DAILY TONY Administration Cyclobenzaprine HCl 10 mg 05/28/23 04:08 05/30/23 20:41 Cyclobenzaprine 10 Mg Tablet PO 05/27/24 04:07 10 mg TID PRN Administration Spasms Dextrose 0 gm 05/28/23 04:10 05/29/23 16:52 Dextrose 50% In Water 25 Gm/50 Ml Syringe IV-PUSH 05/27/24 04:09 25 gm PRN PRN Administration Hypoglycemia Docusate Sodium 200 mg 05/28/23 04:10 05/28/23 18:21 Docusate 100 Mg Capsule PO 05/27/24 04:09 200 mg BID PRN Administration Constipation Enoxaparin Sodium 30 mg 05/31/23 10:00 Enoxaparin 30 Mg/0.3 Ml Syringe SUBCUT 05/30/24 09:59 DAILY@1000 TONY Famotidine 20 mg 05/28/23 22:00 05/30/23 20:42 Famotidine 20 Mg Tablet PO 05/27/24 21:59 20 mg QHS TONY Administration Gabapentin 600 mg 05/28/23 09:00 05/30/23 20:41 Gabapentin 300 Mg Capsule PO 05/27/24 08:59 600 mg BID TONY Administration Glucose 0 gm 05/28/23 04:10 Dextrose 40% Gel 15 Gm Tube PO 05/27/24 04:09 PRN PRN Hypoglycemia Ceftriaxone Sodium 2 gm in 50 mls @ 100 mls/hr 05/28/23 16:00 05/30/23 15:18 Rocephin IV 100 mls/hr Q24H TONY Administration Dextrose 1,000 mls @ 50 mls/hr 05/29/23 17:15 05/30/23 16:12 10 % Dextrose In Water IV 05/28/24 17:14 50 mls/hr .Q20H TONY Infusion Insulin Aspart 0 units 05/28/23 08:00 05/29/23 17:05 Insulin Aspart 300 Units/3 Ml Insuln.Pen SUBCUT 05/27/24 07:59 Not Given TID.WM.HS [facility] Protocol Insulin Aspart 40 units 05/28/23 08:00 05/29/23 17:05 Insulin Aspart 300 Units/3 Ml Insuln.Pen SUBCUT 05/27/24 07:59 Not Given TID.WITH.MEALS [facility] Insulin Glargine 50 units 05/28/23 07:30 05/29/23 08:49 Insulin Glargine 300 Units/3 Ml Insuln.Pen SUBCUT 05/27/24 07:29 50 units DAILY.0730A [facility] Administration Insulin Glargine 40 units 05/28/23 22:00 05/28/23 21:12 Insulin Glargine 300 Units/3 Ml Insuln.Pen SUBCUT 05/27/24 21:59 Not Given HS TONY Metoprolol Tartrate 12.5 mg 05/28/23 09:00 05/30/23 20:42 Metoprolol Tartrate 12.5 Mg Tablet PO 05/27/24 08:59 12.5 mg BID TONY Administration Oxybutynin Chloride 5 mg 05/28/23 09:00 05/30/23 20:42 Oxybutynin Chloride 5 Mg Tablet PO 05/27/24 08:59 5 mg BID TONY Administration Prochlorperazine Edisylate 5 mg 05/28/23 04:10 05/30/23 17:54 Prochlorperazine Edisylate 10 Mg/2 Ml Vial IV-PUSH 05/27/24 04:09 5 mg Q4H PRN Administration Nausea And Vomiting Ranolazine 500 mg 05/28/23 09:00 05/30/23 20:42 Ranolazine 500 Mg Tab.Er.12h PO 05/27/24 08:59 500 mg BID TONY Administration Sertraline HCl 100 mg 05/28/23 09:00 05/30/23 08:25 Sertraline 100 Mg Tablet PO 05/27/24 08:59 100 mg DAILY TONY Administration Spironolactone 25 mg 05/28/23 09:00 Spironolactone 25 Mg Tablet PO 05/27/24 08:59 BID TONY Zinc Oxide 1 applic 05/29/23 10:52 Zinc Oxide 20% Ointment 56 Gm Tube TOPICAL 05/28/24 10:51 PRN PRN Rash Zolpidem Tartrate 5 mg 05/28/23 04:08 05/30/23 20:41 Zolpidem 5 Mg Tablet PO 11/24/23 04:07 5 mg HS PRN Administration Insomnia A&P - Hospitalist Assessment/Plan (1) Acute UTI: Plan 1. Fever suspected due to urinary tract I could not appreciate any other focal signs of infection, however patient complains of diarrhea as well but no abdominal pain. We will check for C. difficile. For now continue with Rocephin Await cultures 2. Mild acute kidney injury, start gentle hydration, recheck in a.m. 3. Chronic left lower extremity wound, I do not appreciate any active signs of infection, wound care nurse consulted 4. Chest pain, with underlying coronary artery disease, status post multiple intervention, with last cardiac cath in February 2023, no intervention done at that time. Troponins slightly elevated, EKG nonischemic, will consult cardiology For now continue with antiplatelets, troponins flat 5. Elevated lactic acid -again patient denies any abdominal pain but she does have diarrhea For now continue with hydration, blood pressure seems to be stable, no hypotension noted Unlikely mesenteric ischemia as the patient denies abdominal pain Recheck lactic acid 6. Diabetes mellitus type 2, continue with home medical therapy, add sliding 7. Hypomagnesemia replacement Documented By: Fahad Dobson MD 05/31/23 0706 Signed By: <Electronically signed by Fahad Dobson MD> 05/31/23 0841 [facility] Work Phone: [phone]) 876-995608-01-2023 Progress note Author Pinky Kern [facility] May 30, 2023 1:08pm Note Date/Time May 30, 2023 1:0 7pm [facility] [address] [place] [address] Cardiology Progress Note Signed Patient: Namrata Jack MR#: [id number] : 1955 Acct:[id number] Age/Sex: 67 / F Adm Date: 3 Loc: Room: [address] [place] [address] Type: ADM IN Attending Dr: Fahad Dobson MD Copies to: ~ Date of Service: 05/30/2023 Subjective Interval history: Patient feels better. Afebrile. No chest pain Exam Physical Exam Vital Signs: Temp Pulse Resp BP Pulse Ox O2 Del Method O2 Flow Rate 97.6 F 70 16 118/75 99 Nasal Cannula 2 05/30/23 12:00 05/30/23 12:00 05/30/23 12:00 05/30/23 12:05/30/23 12:05/30/23 12:05/30/23 12:00 Eyes General: appearance normal, both eyes and all related structures Pupils: PERRL Neck Neck: normal visual inspection, supple and no lymphadenopathy noted Neck mass: No Thyroid: thyroid normal Carotids: normal carotid upstroke Chest Chest palpation & inspection: normal inspection of the chest Resp Effort & Inspection: normal respiratory effort Auscultation: clear to auscultation bilaterally Cardio Palpation: normal PMI Rate: regular rate Rhythm: regular rhythm Heart Sounds: S1 normal, S2 normal and murmur systolic II/ and at the left sternal border GI Palpation: soft and no hepatosplenomegaly Percussion: normal to percussion Auscultation: normal bowel sounds Skin General: no rashes or lesions noted and dry skin Neuro General: patient alert, patient awake, patient oriented x3, tone normal and moves all extremities Extrem General: full ROM, capillary refill normal and no clubbing, cyanosis or edema Psych Mental Status: mental status grossly normal Objective Labs 05/30/23 05:43 05/30/23 05:43 Labs: Laboratory Results - last 24 hr 05/29/23 05/29/23 05/29/23 16:48 17:00 18:02 Corrected WBC Uncorrected WBC Count RBC Hgb Hct MCV MCH MCHC RDW Plt Count MPV Neut % (Auto) Lymph % (Auto) Mesa % (Auto) Eos % (Auto) Baso % (Auto) Nucleat RBC Rel Count Neut # (Auto) Lymph # (Auto) Mesa # (Auto) Eos # (Auto) Baso # (Auto) PHA Creatinine Clear Sodium Potassium Chloride Carbon Dioxide Anion Gap BUN Creatinine Est GFR (CKD-EPI) Glucose POC Glucose 24 L* 122 78 POC Glucose Comment Glu2: cleaned meter Glu2: cleaned meter Calcium Magnesium Total Creatine Kinase TSH 3rd Generation Total Cortisol 05/29/23 05/29/23 05/30/23 19:06 20:52 00:01 Corrected WBC Uncorrected WBC Count RBC Hgb Hct MCV MCH MCHC RDW Plt Count MPV Neut % (Auto) Lymph % (Auto) Mesa % (Auto) Eos % (Auto) Baso % (Auto) Nucleat RBC Rel Count Neut # (Auto) Lymph # (Auto) Mesa # (Auto) Eos # (Auto) Baso # (Auto) PHA Creatinine Clear Sodium Potassium Chloride Carbon Dioxide Anion Gap BUN Creatinine Est GFR (CKD-EPI) Glucose POC Glucose 70 81 144 POC Glucose Comment Glu2: cleaned meter Calcium Magnesium Total Creatine Kinase TSH 3rd Generation Total Cortisol 05/30/23 05/30/23 05/30/23 04:40 05:43 05:43 Corrected WBC 12.3 H Uncorrected WBC Count 12.3 H RBC 3.53 L Hgb 10.9 L Hct 32.1 L MCV 91.1 MCH 30.9 MCHC 33.9 RDW 13.7 Plt Count 202 MPV 7.6 Neut % (Auto) 88.1 Lymph % (Auto) 5.6 Mesa % (Auto) 3.3 Eos % (Auto) 2.8 Baso % (Auto) 0.2 Nucleat RBC Rel Count 0.1 Neut # (Auto) 10.9 H Lymph # (Auto) 0.7 L Mesa # (Auto) 0.4 Eos # (Auto) 0.3 Baso # (Auto) 0.0 PHA Creatinine Clear 34.34 Sodium 131 L Potassium 3.2 L Chloride 95 L Carbon Dioxide 29.6 Anion Gap 9.6 BUN 45 H Creatinine 2.29 H Est GFR (CKD-EPI) 22.705 Glucose 164 H POC Glucose 156 POC Glucose Comment Calcium 8.4 L Magnesium Total Creatine Kinase TSH 3rd Generation Total Cortisol 05/30/23 05/30/23 05/30/23 06:29 11:10 11:58 Corrected WBC Uncorrected WBC Count RBC Hgb Hct MCV MCH MCHC RDW Plt Count MPV Neut % (Auto) Lymph % (Auto) Mesa % (Auto) Eos % (Auto) Baso % (Auto) Nucleat RBC Rel Count Neut # (Auto) Lymph # (Auto) Mesa # (Auto) Eos # (Auto) Baso # (Auto) PHA Creatinine Clear Sodium Potassium Chloride Carbon Dioxide Anion Gap BUN Creatinine Est GFR (CKD-EPI) Glucose POC Glucose 177 228 POC Glucose Comment Calcium Magnesium Total Creatine Kinase 295 H TSH 3rd Generation Total Cortisol 05/30/23 05/30/23 11:58 11:58 Corrected WBC Uncorrected WBC Count RBC Hgb Hct MCV MCH MCHC RDW Plt Count MPV Neut % (Auto) Lymph % (Auto) Mesa % (Auto) Eos % (Auto) Baso % (Auto) Nucleat RBC Rel Count Neut # (Auto) Lymph # (Auto) Mesa # (Auto) Eos # (Auto) Baso # (Auto) PHA Creatinine Clear Sodium Potassium Chloride Carbon Dioxide Anion Gap BUN Creatinine Est GFR (CKD-EPI) Glucose POC Glucose POC Glucose Comment Calcium Magnesium 2.1 Total Creatine Kinase TSH 3rd Generation 1.35 Total Cortisol 20.9 A&P - Cardiology (1) Acute UTI: Code(s): N39.0 - Urinary tract infection, site not specified Status: Acute Plan Assessment 1. Acute coronary syndrome I suspect likely due to type II myocardial infarction. Patient is known to have a history of severe disease affecting the apical segment of the LAD. Her last heart cath was 2 months ago. She had no recurrence of her chest pain. She appears to be hemodynamically stable. Her EKG is nonacute. 2. Febrile illness treated for presumed urinary tract infection the patient hadsignificant GI symptomatology including recurrent nausea and vomiting 3. Mild aortic stenosis 4. Recurrent nausea and vomiting seem to have improved 5. Hypertension 6. Hyperlipidemia 7. Diabetes mellitus 8. Stage III chronic kidney disease with evidence of acute kidney injury 9. Morbid obesity with BMI 59 Plan 1. Continue aspirin, Plavix, metoprolol, Ranexa and heparin 2. Her febrile illness being addressed by the hospitalist service 3. I reviewed with the patient invasive or conservative management. Considering she had recent heart cath and her anatomy is well known medical therapy was chosen by the patient 4. Can be switch to DVT prophylaxis Lovenox dose or subcu heparin. 5. Would recommend to continue with medical therapy cardiac velazquez. I will follow on as-needed basis Documented By: Pinky Kern MD 05/30/23 1306 Signed By: <Electronically signed by MD Pinky Kern> 05/30/23 1308 [facility] Work Phone: [phone] 170-304008-01-2023 Consult note Author Sydnie Milian [facility] May 30, 2023 12:12pm Note Date/Time May 30, 2023 10: 37am [facility] [address] [place] [address] Nephrology Consult Note Signed Patient: Namrata Jack MR#: [id number] : 1955 Acct:[id number] Age/Sex: 67 / F Adm Date: 3 Loc: Room: [address] [place] [address] Type: ADM IN Attending Dr: Fahad Dobson MD Copies to: MD Fahad Sosa MD Robert L Hill, MD~ Providers Consult Date: 05/30/23 Requesting Provider: Fahad Dobson MD Primary Care Provider: Latrice Bergeron MD HPI Reason for Consult: JOY on CKD History of Present Illness: This is a 67-year-old female with a medical history of type 2 diabetes mellitus,hypertension, chronic diastolic congestive heart failure, mild aortic stenosis, CAD s/p PCI, dyslipidemia was presented to the emergency room for nausea and vomiting. On presentation in the emergency room patient was noticed to have a serum creatinine 1.0 mg/dL, hyponatremia with serum sodium 131 mmol/L. She was given fluid bolus in the emergency room and was started on maintenance fluid forpossible hypovolemia. Patient was recently admitted at [facility] for acute on chronic diastolic congestive heart failure and was discharged home on oral Lasix losartan and spironolactone. Patient was also found to have a elevated troponin and was seen by cardiology for type II NC. She was also found to have a fever and had a blood culture done on presentation which came out positive for strep. She was empirically started on IV ceftriaxone for possible UTI. Her hospital course was also complicated by hypoglycemia so insulin glargine was held and she was started on D10 water. Patient was seen by ID for positive blood culture and bacteremia. Her renal function continues to decline during the hospital stay despite holding diureticsand IV fluid resuscitation. Her serum creatinine went up to 2.2 mg/dL and she continues to have a persistent hyponatremia. Nephrology is consulted for JOY onCKD and hyponatremia management. Patient was seen and examined at bedside reported she is still having poor intake and was not able to tolerate her breakfast this morning. Review of Systems Review of Systems All other systems reviewed & are negative unless noted below or in HPI Review of systems: Cardiovascular: denies any chest pain, palpitation Pulmonary: denies any cough, hemoptysis Neurological :denies any headache, numbness, weakness Endocrine: denies any polyuria, polydipsia Dermatological: denies any itching or rash PMFSH Vaccinated for COVID-19?: Unknown Medical History (Updated 05/30/23 @ 12:02 by Sydnie Milian MD) Asthma allergy induced CAD (coronary artery disease) Diabetes mellitus Diverticulosis GERD (gastroesophageal reflux disease) HTN (hypertension) Morbid obesity Morbid obesity with BMI of 50.0-59.9, adult Neuropathy Osteoarthritis Pickwickian syndrome Surgical History History of back surgery Hx of appendectomy Hx of cholecystectomy Hx of heart artery stent X6 Hx of hysterectomy Hx of knee surgery Hx of neck surgery Family History Father CAD (coronary artery disease) AMI (acute myocardial infarction) Sister CAD (coronary artery disease) AMI (acute myocardial infarction) Sister CAD (coronary artery disease) AMI (acute myocardial infarction) Brother CAD (coronary artery disease) Social History Smoking Status: Never smoker Tobacco Type: cigarettes Substance Use Type: None Meds Medications & Allergies Allergies Penicillins Allergy (Severe, Verified 05/27/23 22:27) Anaphylaxis IV Dye Allergy (Severe, Uncoded 05/27/23 22:27) Anaphylaxis Home Medications hydrocodone 10 mg-acetaminophen 325 mg tablet 10 - 325 mg PO QID PRN Pain 01/20/18 [History Confirmed 05/28/23] insulin detemir U-100 100 unit/mL subcutaneous solution (Levemir U-100 Insulin) 40 units subcut HS 01/20/18 [History Confirmed 05/28/23] oxybutynin chloride 5 mg tablet 5 mg PO BID 01/20/18 [History Confirmed 05/28/23] zolpidem 5 mg tablet 5 mg PO HS PRN Insomnia 01/20/18 [History Confirmed 05/28/23] gabapentin 300 mg capsule 600 mg PO BID 02/24/18 [History Confirmed 05/28/23] aspirin 81 mg tablet,delayed release (Aspir-Low) 81 mg PO DAILY 06/01/19 [History Confirmed 05/28/23] cholecalciferol (vitamin D3) 50 mcg (2,000 unit) capsule 4,000 unit PO DAILY 06/01/19 [History Confirmed 05/28/23] clopidogrel 75 mg tablet (Plavix) 75 mg PO DAILY 06/01/19 [History Confirmed 05/28/23] cyclobenzaprine 10 mg tablet 10 mg PO TID PRN Spasms 06/01/19 [History Confirmed 05/28/23] sertraline 50 mg tablet (Zoloft) 100 mg PO DAILY 06/01/19 [History Confirmed 05/28/23] insulin lispro 100 unit/mL subcutaneous solution 40 units subcut DIRECTED 06/09/19 [History Confirmed 05/28/23] potassium chloride 20 mEq tablet,extended release 20 meq PO DAILY #30 tabs 06/11/19 [Rx Confirmed 05/28/23] rosuvastatin 20 mg tablet (Crestor) 40 mg PO HS 30 days #30 tabs 06/11/19 [Rx Confirmed 05/28/23] insulin detemir U-100 100 unit/mL subcutaneous solution (Levemir U-100 Insulin) 50 unit subcut DAILY.0730A 05/04/23 [History Confirmed 05/28/23] ranolazine 500 mg tablet,extended release,12 hr 500 mg PO BID 05/04/23 [History Confirmed 05/28/23] famotidine 20 mg tablet 20 mg PO QHS 30 days #30 tabs 05/09/23 [Rx Confirmed 05/28/23] losartan 25 mg tablet 25 mg PO DAILY 30 days #30 tabs 05/09/23 [Rx Confirmed 05/28/23] metoprolol tartrate 25 mg tablet 12.5 mg PO BID 30 days #30 tabs 05/09/23 [Rx Confirmed 05/28/23] spironolactone 25 mg tablet 25 mg PO BID 30 days #60 tabs 05/09/23 [Rx Confirmed 05/28/23] furosemide 40 mg tablet 40 mg PO BID 05/28/23 [History Confirmed 05/28/23] Active Medications: Active Medications Acetaminophen (Acetaminophen 325 Mg Tablet) 650 mg PO Q4H PRN PRN Reason: Pain Scale 1 - 5 Stop: 05/27/24 04:09 Last Admin: 05/28/23 09:02 Dose: 650 mg Hydrocodone Bitart/Acetaminophen (Hydrocodone/Acetaminophen 10-325 Mg Tablet) 1tab PO QID PRN PRN Reason: Pain Last Admin: 05/29/23 06:31 Dose: 1 tab Albuterol (Albuterol Neb 2.5 Mg/3 Ml Vial.Neb) 2.5 mg INHALATION Q2H PRN PRN Reason: Shortness Of Breath Stop: 05/27/24 04:09 Last Admin: 05/30/23 05:16 Dose: 2.5 mg Aspirin (Aspirin 81 Mg Tablet.) 81 mg PO DAILY TONY Stop: 05/27/24 08:59 Last Admin: 05/30/23 08:25 Dose: 81 mg Atorvastatin Calcium (Atorvastatin 80 Mg Tablet) 80 mg PO HS TONY Stop: 05/27/24 21:59 Last Admin: 05/29/23 21:44 Dose: 80 mg Clopidogrel Bisulfate (Clopidogrel Bisulfate 75 Mg Tablet) 75 mg PO DAILY TONY Stop: 05/27/24 08:59 Last Admin: 05/30/23 08:25 Dose: 75 mg Cyclobenzaprine HCl (Cyclobenzaprine 10 Mg Tablet) 10 mg PO TID PRN PRN Reason: Spasms Stop: 05/27/24 04:07 Dextrose (Dextrose 50% In Water 25 Gm/50 Ml Syringe) 0 gm IV-PUSH PRN PRN PRN Reason: Hypoglycemia Stop: 05/27/24 04:09 Last Admin: 05/29/23 16:52 Dose: 25 gm Docusate Sodium (Docusate 100 Mg Capsule) 200 mg PO BID PRN PRN Reason: Constipation Stop: 05/27/24 04:09 Last Admin: 05/28/23 18:21 Dose: 200 mg Enoxaparin Sodium (Enoxaparin 150 Mg/Ml Syringe) 150 mg SUBCUT Q12HR TONY Stop: 05/27/24 08:59 Last Admin: 05/30/23 08:54 Dose: 150 mg Famotidine (Famotidine 20 Mg Tablet) 20 mg PO QHS TONY Stop: 05/27/24 21:59 Last Admin: 05/29/23 21:45 Dose: 20 mg Gabapentin (Gabapentin 300 Mg Capsule) 600 mg PO BID TONY Stop: 05/27/24 08:59 Last Admin: 05/30/23 08:24 Dose: 600 mg Glucose (Dextrose 40% Gel 15 Gm Tube) 0 gm PO PRN PRN PRN Reason: Hypoglycemia Stop: 05/27/24 04:09 Ceftriaxone Sodium (Rocephin) 2 gm in 50 mls @ 100 mls/hr IV Q24H [facility] Last Admin: 05/29/23 17:05 Dose: 100 mls/hr Dextrose (10 % Dextrose In Water) 1,000 mls @ 50 mls/hr IV .Q20H [facility] Stop: 05/28/24 17:14 Last Admin: 05/29/23 17:27 Dose: 50 mls/hr Insulin Aspart (Insulin Aspart 300 Units/3 Ml Insuln.Pen) 0 units SUBCUT TID.[facility]; Protocol Stop: 05/27/24 07:59 Last Admin: 05/29/23 17:05 Dose: Not Given Insulin Aspart (Insulin Aspart 300 Units/3 Ml Insuln.Pen) 40 units SUBCUT TID.WITH.MEALS [facility] Stop: 05/27/24 07:59 Last Admin: 05/29/23 17:05 Dose: Not Given Insulin Glargine (Insulin Glargine 300 Units/3 Ml Insuln.Pen) 50 units SUBCUT DAILY.0730A [facility] Stop: 05/27/24 07:29 Last Admin: 05/29/23 08:49 Dose: 50 units Insulin Glargine (Insulin Glargine 300 Units/3 Ml Insuln.Pen) 40 units SUBCUT HS [facility] Stop: 05/27/24 21:59 Last Admin: 05/28/23 21:12 Dose: Not Given Metoprolol Tartrate (Metoprolol Tartrate 12.5 Mg Tablet) 12.5 mg PO BID [facility] Stop: 05/27/24 08:59 Last Admin: 05/30/23 08:24 Dose: 12.5 mg Oxybutynin Chloride (Oxybutynin Chloride 5 Mg Tablet) 5 mg PO BID [facility] Stop: 05/27/24 08:59 Last Admin: 05/30/23 08:24 Dose: 5 mg Prochlorperazine Edisylate (Prochlorperazine Edisylate 10 Mg/2 Ml Vial) 5 mg IV- PUSH Q4H PRN PRN Reason: Nausea And Vomiting Stop: 05/27/24 04:09 Last Admin: 05/29/23 06:31 Dose: 5 mg Ranolazine (Ranolazine 500 Mg Tab.Er.12h) 500 mg PO BID [facility] Stop: 05/27/24 08:59 Last Admin: 05/30/23 08:24 Dose: 500 mg Sertraline HCl (Sertraline 100 Mg Tablet) 100 mg PO DAILY [facility] Stop: 05/27/24 08:59 Last Admin: 05/30/23 08:25 Dose: 100 mg Spironolactone (Spironolactone 25 Mg Tablet) 25 mg PO BID [facility] Stop: 05/27/24 08:59 Zinc Oxide (Zinc Oxide 20% Ointment 56 Gm Tube) 1 applic TOPICAL PRN PRN PRN Reason: Rash Stop: 05/28/24 10:51 Zolpidem Tartrate (Zolpidem 5 Mg Tablet) 5 mg PO HS PRN PRN Reason: Insomnia Stop: 11/24/23 04:07 Exam Physical Exam Vital Signs: Temp Pulse Resp BP Pulse Ox O2 Del Method O2 Flow Rate 97.8 F 75 14 120/72 97 Nasal Cannula 2 05/30/23 07:41 05/30/23 07:41 05/30/23 07:41 05/30/23 07:41 05/30/23 07:41 05/30/23 08:00 05/30/23 08:00 Narrative: General: Appears comfortable and not in distress Heart: S1-S2, no rub Lung: Bilateral air entry, no wheezing or crackles Abdomen: Soft, positive bowel sounds Extremities: Bilateral chronic lymphedema, no cyanosis Head: Atraumatic, normocephalic Ear: No gross hearing Deficit or external ear redness Eyes: No pallor or redness Neck: No JVD or visible mass Skin: No rashes or warm to touch [employer]PER[employer]: Awake,Alert, following simple command Musculoskeletal: No joint swelling or limitation of movement Psychiatric: Cooperative, normal mood and affect Results Labs 05/30/23 05:43 05/30/23 05:43 Labs: 05/30/23 05:43 BUN 45 H Creatinine 2.29 H Radiology Impressions Impressions - last 24 hours: Any impression(s) listed above is documentation that was entered by the reading physician into a diagnostic report(s) for Namrata Jack. I have reviewed the report(s) and am incorporating any findings in the treatment plan of this patient where applicable. A&P - Nephrology Assessment/Plan (1) Acute kidney injury superimposed on CKD: Plan: She has JOY possibly due to the relative hypotension in setting of infection (2) CKD (chronic kidney disease) stage 3, GFR 30-59 ml/min: Plan: She has CKD due to the longstanding DM, HTN and chronic cardiorenal syndrome with baseline serum creatinine 1.3 mg/dL. (3) Type 2 diabetes mellitus with diabetic chronic kidney disease: Plan: She has insulin-dependent type 2 diabetes mellitus. She was taking insulin glargine at home. (4) Hypertensive chronic kidney disease with stage 1 through stage 4 chronic kidney disease, or unspecified chronic kidney disease: Plan: Her blood pressure is relatively low. She was taking losartan, spironolactone, Lasix and metoprolol at home. (5) Chronic diastolic (congestive) heart failure: Plan: She appears to be well compensated. Her echocardiogram in April 2023 showed EF 65-70%, mild to moderate diastolic dysfunction, mild aortic stenosis (6) Bacteremia: Plan: Patient was presented with fever and has a positive blood culture with strep dysgalactiae. She is currently on ceftriaxone ID has been following the patient. (7) Hyponatremia: Plan: She has hyponatremia but appears to be euvolemic. This may be due to the nauseainduced or medication related like sertraline. (8) Hypokalemia: Plan: She has hypokalemia possibly due to the vomiting. Currently does not take any diuretics. Plan * Continue to hold home dose of the spironolactone, Lasix and losartan. * Check renal ultrasound to evaluate the renal anatomy. * Continue DM management as per the primary hospitalist team. Patient currently on D10 water due to the hypoglycemia in the setting of poor oral intake and insulin glargine. * Continue management of the bacteremia as per ID. * Will give potassium chloride 20 mEq and p.o. x1 dose. * Will check serum magnesium cortisol and TSH * Check renal function daily monitor input output * Thanks for the consult. We will continue follow with you. Please feel free to call us with any question. Documented By: Sydnie Milian MD 05/30/23 1037 Signed By: <Electronically signed by Sydnie Milian MD> 05/30/[address] [place] [address] Ctr Work Phone: 1(598) 529-658908-01-2023 Progress note Author Deep Eubanks [facility] May 30, 2023 9:55am Note Date/Time May 30, 2023 9:5 5am [facility] [address] [place] [address] Infect. Disease Progress Note Signed Patient: Namrata Jack MR#: [id number] : 1955 Acct:[id number] Age/Sex: 67 / F Adm Date: 3 Loc: Room: 5I9971-2 Type: ADM IN Attending Dr: Fahad Dobson MD Copies to: ~ Date of Service: 05/30/2023 Subjective Interval history: Patient no longer having nausea but states when she tries to eat food is gettingstuck. This occurs with liquids as well. Exam Physical Exam Vital Signs: Temp Pulse Resp BP Pulse Ox O2 Del Method O2 Flow Rate 97.8 F 75 14 120/72 97 Nasal Cannula 2 05/30/23 07:41 05/30/23 07:41 05/30/23 07:41 05/30/23 07:41 05/30/23 07:41 05/30/23 08:00 05/30/23 08:00 Const General: cooperative and no acute distress Orientation: oriented x3 HEENT Head: normal to inspection Ears: hearing grossly normal bilaterally Mouth: oral mucosae normal Eyes General: appearance normal, both eyes and all related structures Neck Neck: normal visual inspection Chest Chest palpation & inspection: normal inspection of the chest Resp Effort & Inspection: normal respiratory effort Auscultation: clear to auscultation bilaterally Cardio Palpation: normal PMI Rate: regular rate Rhythm: regular rhythm GI Inspection: normal to inspection Palpation: soft and nontender Auscultation: normal bowel sounds Skin General: other (Left lower extremity visualized. Superficial ulcerations noted. ) Other: Erythematous changes on left lower extremity chronic do not appear cellulitic Neuro General: patient oriented x3 Extrem General: abnormal to inspection (Lisa bandages) Objective Labs CBC/BMP: CBC, BMP 05/30/23 05/30/23 05:43 05:43 Corrected WBC 12.3 H Uncorrected WBC Count 12.3 H RBC 3.53 L Hgb 10.9 L Hct 32.1 L Plt Count 202 Sodium 131 L Potassium 3.2 L Chloride 95 L Carbon Dioxide 29.6 Anion Gap 9.6 BUN 45 H Creatinine 2.29 H Calcium 8.4 L Labs: 05/30/23 05:43 BUN 45 H Creatinine 2.29 H Microbiology Microbiology: Microbiology - Results from entire visit 05/28/23 00:42 Urine - Straight Cath Urine Culture - Final No Growth 2 Days 05/27/23 23:20 Blood - Left Antecubital Blood Culture - Preliminary Strep dysgalactiae 05/27/23 23:20 Blood - Left Antecubital Bacterial ID (NA Multiplex Assay) - Final 05/29/23 06:21 Blood - Right Antecubital Blood Culture - Preliminary No Growth 1 Day 05/29/23 06:28 Blood - Right Hand Blood Culture - Preliminary No Growth 1 Day 05/27/23 22:42 Blood - Right Antecubital Blood Culture - Preliminary No Growth 2 Days 05/29/23 02:00 Stool Stool Lactoferrin - Final Allergies and Medications Allergies and Active Meds Allergies Penicillins Allergy (Severe, Verified 05/27/23 22:27) Anaphylaxis IV Dye Allergy (Severe, Uncoded 05/27/23 22:27) Anaphylaxis Active Medications Acetaminophen (Acetaminophen 325 Mg Tablet) 650 mg PO Q4H PRN PRN Reason: Pain Scale 1 - 5 Stop: 05/27/24 04:09 Last Admin: 05/28/23 09:02 Dose: 650 mg Hydrocodone Bitart/Acetaminophen (Hydrocodone/Acetaminophen 10-325 Mg Tablet) 1tab PO QID PRN PRN Reason: Pain Last Admin: 05/29/23 06:31 Dose: 1 tab Albuterol (Albuterol Neb 2.5 Mg/3 Ml Vial.Neb) 2.5 mg INHALATION Q2H PRN PRN Reason: Shortness Of Breath Stop: 05/27/24 04:09 Last Admin: 05/30/23 05:16 Dose: 2.5 mg Aspirin (Aspirin 81 Mg Tablet.) 81 mg PO DAILY [facility] Stop: 05/27/24 08:59 Last Admin: 05/30/23 08:25 Dose: 81 mg Atorvastatin Calcium (Atorvastatin 80 Mg Tablet) 80 mg PO HS [facility] Stop: 05/27/24 21:59 Last Admin: 05/29/23 21:44 Dose: 80 mg Clopidogrel Bisulfate (Clopidogrel Bisulfate 75 Mg Tablet) 75 mg PO DAILY [facility] Stop: 05/27/24 08:59 Last Admin: 05/30/23 08:25 Dose: 75 mg Cyclobenzaprine HCl (Cyclobenzaprine 10 Mg Tablet) 10 mg PO TID PRN PRN Reason: Spasms Stop: 05/27/24 04:07 Dextrose (Dextrose 50% In Water 25 Gm/50 Ml Syringe) 0 gm IV-PUSH PRN PRN PRN Reason: Hypoglycemia Stop: 05/27/24 04:09 Last Admin: 05/29/23 16:52 Dose: 25 gm Docusate Sodium (Docusate 100 Mg Capsule) 200 mg PO BID PRN PRN Reason: Constipation Stop: 05/27/24 04:09 Last Admin: 05/28/23 18:21 Dose: 200 mg Enoxaparin Sodium (Enoxaparin 150 Mg/Ml Syringe) 150 mg SUBCUT Q12HR [facility] Stop: 05/27/24 08:59 Last Admin: 05/30/23 08:54 Dose: 150 mg Famotidine (Famotidine 20 Mg Tablet) 20 mg PO QHS [facility] Stop: 05/27/24 21:59 Last Admin: 05/29/23 21:45 Dose: 20 mg Gabapentin (Gabapentin 300 Mg Capsule) 600 mg PO BID [facility] Stop: 05/27/24 08:59 Last Admin: 05/30/23 08:24 Dose: 600 mg Glucose (Dextrose 40% Gel 15 Gm Tube) 0 gm PO PRN PRN PRN Reason: Hypoglycemia Stop: 05/27/24 04:09 Ceftriaxone Sodium (Rocephin) 2 gm in 50 mls @ 100 mls/hr IV Q24H [facility] Last Admin: 05/29/23 17:05 Dose: 100 mls/hr Dextrose (10 % Dextrose In Water) 1,000 mls @ 50 mls/hr IV .Q20H [facility] Stop: 05/28/24 17:14 Last Admin: 05/29/23 17:27 Dose: 50 mls/hr Insulin Aspart (Insulin Aspart 300 Units/3 Ml Insuln.Pen) 0 units SUBCUT TID.[facility]; Protocol Stop: 05/27/24 07:59 Last Admin: 05/29/23 17:05 Dose: Not Given Insulin Aspart (Insulin Aspart 300 Units/3 Ml Insuln.Pen) 40 units SUBCUT TID.WITH.MEALS [facility] Stop: 05/27/24 07:59 Last Admin: 05/29/23 17:05 Dose: Not Given Insulin Glargine (Insulin Glargine 300 Units/3 Ml Insuln.Pen) 50 units SUBCUT DAILY.0730A [facility] Stop: 05/27/24 07:29 Last Admin: 05/29/23 08:49 Dose: 50 units Insulin Glargine (Insulin Glargine 300 Units/3 Ml Insuln.Pen) 40 units SUBCUT HS [facility] Stop: 05/27/24 21:59 Last Admin: 05/28/23 21:12 Dose: Not Given Metoprolol Tartrate (Metoprolol Tartrate 12.5 Mg Tablet) 12.5 mg PO BID [facility] Stop: 05/27/24 08:59 Last Admin: 05/30/23 08:24 Dose: 12.5 mg Oxybutynin Chloride (Oxybutynin Chloride 5 Mg Tablet) 5 mg PO BID [facility] Stop: 05/27/24 08:59 Last Admin: 05/30/23 08:24 Dose: 5 mg Prochlorperazine Edisylate (Prochlorperazine Edisylate 10 Mg/2 Ml Vial) 5 mg IV- PUSH Q4H PRN PRN Reason: Nausea And Vomiting Stop: 05/27/24 04:09 Last Admin: 05/29/23 06:31 Dose: 5 mg Ranolazine (Ranolazine 500 Mg Tab.Er.12h) 500 mg PO BID [facility] Stop: 05/27/24 08:59 Last Admin: 05/30/23 08:24 Dose: 500 mg Sertraline HCl (Sertraline 100 Mg Tablet) 100 mg PO DAILY [facility] Stop: 05/27/24 08:59 Last Admin: 05/30/23 08:25 Dose: 100 mg Spironolactone (Spironolactone 25 Mg Tablet) 25 mg PO BID [facility] Stop: 05/27/24 08:59 Zinc Oxide (Zinc Oxide 20% Ointment 56 Gm Tube) 1 applic TOPICAL PRN PRN PRN Reason: Rash Stop: 05/28/24 10:51 Zolpidem Tartrate (Zolpidem 5 Mg Tablet) 5 mg PO HS PRN PRN Reason: Insomnia Stop: 11/24/23 04:07 A&P - Infectious Disease Assessment/Plan (1) Positive blood culture: Code(s): R78.81 - Bacteremia Status: Acute Plan Patient blood culture 1 set had strep dysgalactiae. Blood cultures today remainnegative. Urinalysis not that impressive but her creatinine was higher than her baseline and it appears they are considering UTI as a diagnosis. She clearly came in due to vomiting and then was admitted with fever and concerns ofchest pain. It seemed that she had acute onset of persistent nausea and vomiting that has now resolved. She denies any sick contacts around her. She was having diarrhea prior to coming to the hospital but has not had diarrhea since. Bowel movement last night she tells me was formed. She is not having abdominal pain at this time. No longer feels nauseated but then told me she hasbeen getting food and liquid stuck when she attempts to swallow which is new. Discussed with the charge nurse who is going to relate this to the hospitalist. In the meantime continuing ceftriaxone. Feel source of positive blood culture could be translocation from her vomiting episode versus just the left lower extremity wound infection. Clearly there is no significant findings suggestive of infection. She came in with vomiting and now is having difficulties with eating. GI may need to be consulted. Documented By: Deep Eubanks MD 05/30/23 0951 Signed By: <Electronically signed by MD Deep Eubanks> 05/30/23 0955 [facility] Work Phone: 1(851) 801-509108-01-2023 Progress note Author Fahad Dobson [facility] May 30, 2023 7:37am Note Date/Time May 30, 2023 7:1 1am [facility] [address] [place] [address] Hospitalist Progress Note Signed Patient: Namrata Jack MR#: [id number] : 1955 Acct:[id number] Age/Sex: 67 / F Adm Date: 3 Loc: Room: [address] [place] [address] Type: ADM IN Attending Dr: Fahad Dobson MD Copies to: ~ Date of Service: 05/30/2023 Subjective Subjective Narrative: Assessment And Plan 63F with PMH of HTN, DM, HLD, Diabetic neuropathy, CAD s/p Stenting, Mild MR, GERD, diverticulosis, Morbid Obesity who p/w N/V/Chest pain. found with Fever, lactic acidosis and admitted for possible UTI Acute metabolic encephalopathy Seen and examined Clinically better More awake Blood sugar is improving ON d10 at 50 cc per hour Chest pain/Elevated Troponin rule out NSTEMI Resolved No more chest pain Seen by cardiology No further cardiac work up Continue aspirin and Plavix Continue Lopressor Continue Ranexa Febrile illness , suspected due to urinary tract Clinically better No fever Blood cultures are negative On Rocephin IV daily Gastroenteritis Resolved No more diarrhea NO abdominal pain Hyponatremia: Improving / BMP in am Acute on CKD Kidney function slightly worse today creatinine up to 2.29 Hold Losartan BMP in am US kidney Nephrology consult Chronic left lower extremity wound wound care nurse consulted Diabetes mellitus type, Insulin was held due to hypoglycemia was placed on D10 Blood sugar is improving Hypomagnesemia replaced Exam Physical Exam Vital Signs: Temp Pulse Resp BP Pulse Ox O2 Del Method O2 Flow Rate 97.8 F 72 18 133/76 100 Nasal Cannula 2 05/30/23 04:45 05/30/23 05:21 05/30/23 05:21 05/30/23 04:45 05/30/23 04:45 05/30/23 04:45 05/30/23 04:45 Narrative: General patient laying in bed alert awake oriented x3 HEENT pupils are equal round reactive light Neck supple no JVD no carotid bruit CVS S1-S2 regular rate and rhythm no murmur no gallop Chest clear to auscultation percussion Abdomen soft bowel sounds normoactive no rebound no Extremities +1 edema Neurologic exam oriented x3 alert awake no focal deficit Skin exam normal no skin rash or lesion Musculoskeletal exam normal no movement limitation no joint effusion Objective Lab Results 05/30/23 05:43 05/29/23 06:28 Microbiology Results Microbiology 05/29/23 06:21 Blood - Right Antecubital Blood Culture - Preliminary No Growth 1 Day 05/29/23 06:28 Blood - Right Hand Blood Culture - Preliminary No Growth 1 Day 05/27/23 22:42 Blood - Right Antecubital Blood Culture - Preliminary No Growth 2 Days 05/27/23 23:20 Blood - Left Antecubital Blood Culture - Preliminary Strep dysgalactiae 05/27/23 23:20 Blood - Left Antecubital Bacterial ID (NA Multiplex Assay) - Final 05/28/23 00:42 Urine - Straight Cath Urine Culture - Preliminary No Growth 1 Day Meds Allergies and Active Meds Allergies Penicillins Allergy (Severe, Verified 05/27/23 22:27) Anaphylaxis IV Dye Allergy (Severe, Uncoded 05/27/23 22:27) Anaphylaxis Active Meds: Active Medications Generic Name Dose Route Start Last Admin Trade Name Barryq PRN Reason Stop Dose Admin Acetaminophen 650 mg 05/28/23 04:10 05/28/23 09:02 Acetaminophen 325 Mg Tablet PO 05/27/24 04:09 650 mg Q4H PRN Administration Pain Scale 1 - 5 Hydrocodone Bitart/Acetaminophen 1 tab 05/28/23 04:08 05/29/23 06:31 Hydrocodone/Acetaminophen 10-325 Mg Tablet PO 1 tab QID PRN Administration Pain Albuterol 2.5 mg 05/28/23 04:10 05/30/23 05:16 Albuterol Neb 2.5 Mg/3 Ml Vial.Neb INHALATION 05/27/24 04:09 2.5 mg Q2H PRN Administration Shortness Of Breath Aspirin 81 mg 05/28/23 09:00 05/29/23 08:46 Aspirin 81 Mg Tablet. PO 05/27/24 08:59 81 mg DAILY [facility] Administration Atorvastatin Calcium 80 mg 05/28/23 22:00 05/29/23 21:44 Atorvastatin 80 Mg Tablet PO 05/27/24 21:59 80 mg HS [facility] Administration Clopidogrel Bisulfate 75 mg 05/28/23 09:00 05/29/23 08:46 Clopidogrel Bisulfate 75 Mg Tablet PO 05/27/24 08:59 75 mg DAILY [facility] Administration Cyclobenzaprine HCl 10 mg 05/28/23 04:08 Cyclobenzaprine 10 Mg Tablet PO 05/27/24 04:07 TID PRN Spasms Dextrose 0 gm 05/28/23 04:10 05/29/23 16:52 Dextrose 50% In Water 25 Gm/50 Ml Syringe IV-PUSH 05/27/24 04:09 25 gm PRN PRN Administration Hypoglycemia Docusate Sodium 200 mg 05/28/23 04:10 05/28/23 18:21 Docusate 100 Mg Capsule PO 05/27/24 04:09 200 mg BID PRN Administration Constipation Enoxaparin Sodium 150 mg 05/28/23 09:00 05/29/23 22:08 Enoxaparin 150 Mg/Ml Syringe SUBCUT 05/27/24 08:59 150 mg Q12HR [facility] Administration Famotidine 20 mg 05/28/23 22:00 05/29/23 21:45 Famotidine 20 Mg Tablet PO 05/27/24 21:59 20 mg QHS [facility] Administration Gabapentin 600 mg 05/28/23 09:00 05/29/23 21:45 Gabapentin 300 Mg Capsule PO 05/27/24 08:59 600 mg BID [facility] Administration Glucose 0 gm 05/28/23 04:10 Dextrose 40% Gel 15 Gm Tube PO 05/27/24 04:09 PRN PRN Hypoglycemia Ceftriaxone Sodium 2 gm in 50 mls @ 100 mls/hr 05/28/23 16:00 05/29/23 17:05 Rocephin IV 100 mls/hr Q24H [facility] Administration Dextrose 1,000 mls @ 50 mls/hr 05/29/23 17:15 05/29/23 17:27 10 % Dextrose In Water IV 05/28/24 17:14 50 mls/hr .Q20H [facility] Administration Insulin Aspart 0 units 05/28/23 08:00 05/29/23 17:05 Insulin Aspart 300 Units/3 Ml Insuln.Pen SUBCUT 05/27/24 07:59 Not Given TID.WM.HS [facility] Protocol Insulin Aspart 40 units 05/28/23 08:00 05/29/23 17:05 Insulin Aspart 300 Units/3 Ml Insuln.Pen SUBCUT 05/27/24 07:59 Not Given TID.WITH.MEALS [facility] Insulin Glargine 50 units 05/28/23 07:30 05/29/23 08:49 Insulin Glargine 300 Units/3 Ml Insuln.Pen SUBCUT 05/27/24 07:29 50 units DAILY.0730A [facility] Administration Insulin Glargine 40 units 05/28/23 22:00 05/28/23 21:12 Insulin Glargine 300 Units/3 Ml Insuln.Pen SUBCUT 05/27/24 21:59 Not Given [facility] Metoprolol Tartrate 12.5 mg 05/28/23 09:00 05/29/23 21:44 Metoprolol Tartrate 12.5 Mg Tablet PO 05/27/24 08:59 12.5 mg BID [facility] Administration Oxybutynin Chloride 5 mg 05/28/23 09:00 05/29/23 21:45 Oxybutynin Chloride 5 Mg Tablet PO 05/27/24 08:59 5 mg BID [facility] Administration Prochlorperazine Edisylate 5 mg 05/28/23 04:10 05/29/23 06:31 Prochlorperazine Edisylate 10 Mg/2 Ml Vial IV-PUSH 05/27/24 04:09 5 mg Q4H PRN Administration Nausea And Vomiting Ranolazine 500 mg 05/28/23 09:00 05/29/23 21:45 Ranolazine 500 Mg Tab.Er.12h PO 05/27/24 08:59 500 mg BID [facility] Administration Sertraline HCl 100 mg 05/28/23 09:00 05/29/23 08:46 Sertraline 100 Mg Tablet PO 05/27/24 08:59 100 mg DAILY [facility] Administration Spironolactone 25 mg 05/28/23 09:00 Spironolactone 25 Mg Tablet PO 05/27/24 08:59 BID [facility] Zinc Oxide 1 applic 05/29/23 10:52 Zinc Oxide 20% Ointment 56 Gm Tube TOPICAL 05/28/24 10:51 PRN PRN Rash Zolpidem Tartrate 5 mg 05/28/23 04:08 Zolpidem 5 Mg Tablet PO 11/24/23 04:07 HS PRN Insomnia A&P - Hospitalist Assessment/Plan (1) Acute UTI: Plan 1. Fever suspected due to urinary tract I could not appreciate any other focal signs of infection, however patient complains of diarrhea as well but no abdominal pain. We will check for C. difficile. For now continue with Rocephin Await cultures 2. Mild acute kidney injury, start gentle hydration, recheck in a.m. 3. Chronic left lower extremity wound, I do not appreciate any active signs of infection, wound care nurse consulted 4. Chest pain, with underlying coronary artery disease, status post multiple intervention, with last cardiac cath in February 2023, no intervention done at that time. Troponins slightly elevated, EKG nonischemic, will consult cardiology For now continue with antiplatelets, troponins flat 5. Elevated lactic acid -again patient denies any abdominal pain but she does have diarrhea For now continue with hydration, blood pressure seems to be stable, no hypotension noted Unlikely mesenteric ischemia as the patient denies abdominal pain Recheck lactic acid 6. Diabetes mellitus type 2, continue with home medical therapy, add sliding 7. Hypomagnesemia replacement Documented By: Fahad Dobson MD 05/30/23 0708 Signed By: <Electronically signed by Fahad Dobson MD> 05/30/23 0737 [facility] Work Phone: 1(206) 362-240207-31-2023 Progress note Author Pinky Kern [facility] May 29, 2023 10:22am Note Date/Time May 29, 2023 10:2 2am [facility] [address] [place] [address] Cardiology Progress Note Signed Patient: Namrata Jack MR#: [id number] : 1955 Acct:[id number] Age/Sex: 67 / F Adm Date: 3 Loc: 3T Room: [address] [place] [address] Type: ADM IN Attending Dr: Fahad Dobson MD Copies to: ~ Date of Service: 05/29/2023 Subjective Interval history: Patient feels better. Afebrile. No chest pain Exam Physical Exam Vital Signs: Temp Pulse Resp BP Pulse Ox O2 Del Method 98.8 F 80 18 132/78 93 L Room Air 05/29/23 04:00 05/29/23 04:00 05/29/23 04:00 05/29/23 04:00 05/29/23 04:00 05/29/23 04:00 HEENT Head: atraumatic Mouth: oral mucosae normal Eyes General: appearance normal, both eyes and all related structures Pupils: PERRL Neck Neck: normal visual inspection, supple and no lymphadenopathy noted Neck mass: No Thyroid: thyroid normal Carotids: normal carotid upstroke Chest Chest palpation & inspection: normal inspection of the chest Resp Effort & Inspection: normal respiratory effort Auscultation: clear to auscultation bilaterally Cardio Palpation: normal PMI Rate: regular rate Rhythm: regular rhythm Heart Sounds: S1 normal, S2 normal and murmur systolic II/ and at the left sternal border GI Palpation: soft and no hepatosplenomegaly Percussion: normal to percussion Auscultation: normal bowel sounds Extrem General: full ROM, capillary refill normal and no clubbing, cyanosis or edema Objective Labs 05/29/23 06:28 05/29/23 06:28 Labs: Laboratory Results - last 24 hr 05/28/23 05/28/23 05/28/23 11:44 12:16 14:53 Corrected WBC RBC Hgb Hct MCV MCH MCHC RDW Plt Count MPV PHA Creatinine Clear Sodium Potassium Chloride Carbon Dioxide Anion Gap BUN Creatinine Est GFR (CKD-EPI) Glucose POC Glucose 229 POC Glucose Comment Glu2: cleaned meter Lactic Acid 1.5 Calcium Troponin I High Sens 476.9 H* C. difficile Tox B Gene 05/28/23 05/28/23 05/29/23 16:28 16:51 02:00 Corrected WBC RBC Hgb Hct MCV MCH MCHC RDW Plt Count MPV PHA Creatinine Clear Sodium Potassium Chloride Carbon Dioxide Anion Gap BUN Creatinine Est GFR (CKD-EPI) Glucose POC Glucose 52 L* 82 POC Glucose Comment Glu2: cleaned meter Lactic Acid Calcium Troponin I High Sens C. difficile Tox B Gene Negative 05/29/23 05/29/23 05/29/23 06:28 06:28 06:43 Corrected WBC 12.7 H RBC 3.71 Hgb 11.6 L Hct 34.1 MCV 92.0 MCH 31.2 MCHC 33.9 RDW 13.8 Plt Count 228 MPV 7.6 PHA Creatinine Clear 38.83 Sodium 132 L Potassium 3.9 Chloride 95 L Carbon Dioxide 27.4 Anion Gap 13.5 BUN 39 H Creatinine 2.04 H Est GFR (CKD-EPI) 26.083 Glucose 161 H D POC Glucose 174 POC Glucose Comment Lactic Acid Calcium 7.9 L Troponin I High Sens C. difficile Tox B Gene A&P - Cardiology (1) Acute UTI: Code(s): N39.0 - Urinary tract infection, site not specified Status: Acute Plan Assessment 1. Acute coronary syndrome I suspect likely due to type II myocardial infarction. Patient is known to have a history of severe disease affecting the apical segment of the LAD. Her last heart cath was 2 months ago. She had no recurrence of her chest pain. She appears to be hemodynamically stable. Her EKG is nonacute. 2. Febrile illness treated for presumed urinary tract infection the patient hadsignificant GI symptomatology including recurrent nausea and vomiting 3. Mild aortic stenosis 4. Recurrent nausea and vomiting seem to have improved 5. Hypertension 6. Hyperlipidemia 7. Diabetes mellitus 8. Stage III chronic kidney disease 9. Morbid obesity with BMI 59 Plan 1. Continue aspirin, Plavix, metoprolol, Ranexa and heparin 2. Her febrile illness being addressed by the hospitalist service 3. I reviewed with the patient invasive or conservative management. Considering she had recent heart cath and her anatomy is well known medical therapy was chosen by the patient 4. Continue with aggressive approach risk factor modification Documented By: Pinky Kern MD 05/29/23 1021 Signed By: <Electronically signed by MD Pinky Kern> 05/29/23 1022 [facility] Work Phone: [phone] Consult note Author Deep Eubanks [facility] May 29, 2023 9:40am Note Date/Time May 29, 2023 9:40 am [facility] [address] [place], [place] [id number] Infect. Disease Consult Note Signed Patient: Namrata Jack MR#: [id number] : 1955 Acct:[id number] Age/Sex: 67 / F Adm Date: 3 Loc: Room: [address] [place] [address] Type: ADM IN Attending Dr: Fahad Dobson MD Copies to: MD Deep Acevedo MD Robert L Hill, MD~ HPI Data of Consult Consult date: 05/29/23 Requesting Physician: Fahad Dobson MD Primary Care Provider: Latrice Bergeron MD Consult Narrative History of present illness: Ms. Jack is a 67 year old female who tells me she came into the hospital after 2to 3 hours of vomiting at home. She had some diarrhea at home but is not had diarrhea since she got to the hospital. She denied any significant abdominal pain but was sore after vomiting. Seems the main reason she seem to be admitted was because of some chest pain that she also had reported that relieved with nitro. She had a fever when she presented here to 102. She has defervesced. Empiric ceftriaxone has been started. Concern over urinary tract infection was raised. To date 1 blood culture is growing presumptive strep viridans. She is feeling better and has not vomited in the last 24 hours. Her bowel movement last night she states was normal and formed. She still feels nauseated and queasy. She denies any other localizing complaints. She has a wound on her left lower extremity that is documented but does not appear infected based on documentation by the hospitalist. Both his lower extremities are wrapped today. CC: Fahad Dobson MD Review of Systems Review of Systems All other systems reviewed & are negative unless noted below or in HPI [facility] Attestation Statement: The following information was validated with the patient. Vaccinated for COVID-19?: Unknown Medical History Asthma allergy induced CAD (coronary artery disease) Diabetes mellitus Diverticulosis GERD (gastroesophageal reflux disease) HTN (hypertension) Morbid obesity Morbid obesity with BMI of 50.0-59.9, adult Neuropathy Osteoarthritis Pickwickian syndrome Surgical History History of back surgery Hx of appendectomy Hx of cholecystectomy Hx of heart artery stent X6 Hx of hysterectomy Hx of knee surgery Hx of neck surgery Family History Father CAD (coronary artery disease) AMI (acute myocardial infarction) Sister CAD (coronary artery disease) AMI (acute myocardial infarction) Sister CAD (coronary artery disease) AMI (acute myocardial infarction) Brother CAD (coronary artery disease) Social History Smoking Status: Never smoker Tobacco Type: cigarettes Substance Use Type: None Allergies and Medications Allergies and Active Meds Allergies Penicillins Allergy (Severe, Verified 05/27/23 22:27) Anaphylaxis IV Dye Allergy (Severe, Uncoded 05/27/23 22:27) Anaphylaxis Active Medications Acetaminophen (Acetaminophen 325 Mg Tablet) 650 mg PO Q4H PRN PRN Reason: Pain Scale 1 - 5 Stop: 05/27/24 04:09 Last Admin: 05/28/23 09:02 Dose: 650 mg Hydrocodone Bitart/Acetaminophen (Hydrocodone/Acetaminophen 10-325 Mg Tablet) 1tab PO QID PRN PRN Reason: Pain Last Admin: 05/29/23 06:31 Dose: 1 tab Albuterol (Albuterol Neb 2.5 Mg/3 Ml Vial.Neb) 2.5 mg INHALATION Q2H PRN PRN Reason: Shortness Of Breath Stop: 05/27/24 04:09 Aspirin (Aspirin 81 Mg Tablet.) 81 mg PO DAILY TONY Stop: 05/27/24 08:59 Last Admin: 05/29/23 08:46 Dose: 81 mg Atorvastatin Calcium (Atorvastatin 80 Mg Tablet) 80 mg PO HS TONY Stop: 05/27/24 21:59 Last Admin: 05/28/23 21:10 Dose: 80 mg Clopidogrel Bisulfate (Clopidogrel Bisulfate 75 Mg Tablet) 75 mg PO DAILY TONY Stop: 05/27/24 08:59 Last Admin: 05/29/23 08:46 Dose: 75 mg Cyclobenzaprine HCl (Cyclobenzaprine 10 Mg Tablet) 10 mg PO TID PRN PRN Reason: Spasms Stop: 05/27/24 04:07 Dextrose (Dextrose 50% In Water 25 Gm/50 Ml Syringe) 0 gm IV-PUSH PRN PRN PRN Reason: Hypoglycemia Stop: 05/27/24 04:09 Docusate Sodium (Docusate 100 Mg Capsule) 200 mg PO BID PRN PRN Reason: Constipation Stop: 05/27/24 04:09 Last Admin: 05/28/23 18:21 Dose: 200 mg Enoxaparin Sodium (Enoxaparin 150 Mg/Ml Syringe) 150 mg SUBCUT Q12HR [facility] Stop: 05/27/24 08:59 Last Admin: 05/29/23 08:47 Dose: 150 mg Famotidine (Famotidine 20 Mg Tablet) 20 mg PO QHS [facility] Stop: 05/27/24 21:59 Last Admin: 05/28/23 21:10 Dose: 20 mg Gabapentin (Gabapentin 300 Mg Capsule) 600 mg PO BID [facility] Stop: 05/27/24 08:59 Last Admin: 05/29/23 08:46 Dose: 600 mg Glucose (Dextrose 40% Gel 15 Gm Tube) 0 gm PO PRN PRN PRN Reason: Hypoglycemia Stop: 05/27/24 04:09 Ceftriaxone Sodium (Rocephin) 2 gm in 50 mls @ 100 mls/hr IV Q24H [facility] Last Admin: 05/28/23 16:00 Dose: 100 mls/hr Insulin Aspart (Insulin Aspart 300 Units/3 Ml Insuln.Pen) 0 units SUBCUT TID.[facility]; Protocol Stop: 05/27/24 07:59 Last Admin: 05/29/23 08:49 Dose: 1 units Insulin Aspart (Insulin Aspart 300 Units/3 Ml Insuln.Pen) 40 units SUBCUT TID.WITH.MEALS [facility] Stop: 05/27/24 07:59 Last Admin: 05/29/23 08:49 Dose: 40 units Insulin Glargine (Insulin Glargine 300 Units/3 Ml Insuln.Pen) 50 units SUBCUT DAILY.0730A [facility] Stop: 05/27/24 07:29 Last Admin: 05/29/23 08:49 Dose: 50 units Insulin Glargine (Insulin Glargine 300 Units/3 Ml Insuln.Pen) 40 units SUBCUT HS [facility] Stop: 05/27/24 21:59 Last Admin: 05/28/23 21:12 Dose: Not Given Metoprolol Tartrate (Metoprolol Tartrate 12.5 Mg Tablet) 12.5 mg PO BID TONY Stop: 05/27/24 08:59 Last Admin: 05/29/23 08:46 Dose: 12.5 mg Oxybutynin Chloride (Oxybutynin Chloride 5 Mg Tablet) 5 mg PO BID TONY Stop: 05/27/24 08:59 Last Admin: 05/29/23 08:46 Dose: 5 mg Prochlorperazine Edisylate (Prochlorperazine Edisylate 10 Mg/2 Ml Vial) 5 mg IV- PUSH Q4H PRN PRN Reason: Nausea And Vomiting Stop: 05/27/24 04:09 Last Admin: 05/29/23 06:31 Dose: 5 mg Ranolazine (Ranolazine 500 Mg Tab.Er.12h) 500 mg PO BID TONY Stop: 05/27/24 08:59 Last Admin: 05/29/23 08:46 Dose: 500 mg Sertraline HCl (Sertraline 100 Mg Tablet) 100 mg PO DAILY TONY Stop: 05/27/24 08:59 Last Admin: 05/29/23 08:46 Dose: 100 mg Spironolactone (Spironolactone 25 Mg Tablet) 25 mg PO BID TONY Stop: 05/27/24 08:59 Zolpidem Tartrate (Zolpidem 5 Mg Tablet) 5 mg PO HS PRN PRN Reason: Insomnia Stop: 11/24/23 04:07 Exam Physical Exam Vital Signs: Vital Signs Temp Pulse Resp BP Pulse Ox O2 Del Method 05/29/23 04:00 98.8 F 80 18 132/78 93 L Room Air 05/29/23 00:00 98.9 F 76 18 114/66 92 L Room Air 05/28/23 20:00 Room Air 05/28/23 20:00 99.2 F H 84 20 139/76 91 L Room Air 05/28/23 15:13 100.4 F H 86 17 116/68 94 L Room Air 05/28/23 12:00 100.5 F H 86 18 118/69 94 L Room Air Const General: cooperative and no acute distress Orientation: oriented x3 HEENT Head: normal to inspection Ears: hearing grossly normal bilaterally Mouth: oral mucosae normal Eyes General: appearance normal, both eyes and all related structures Neck Neck: normal visual inspection Chest Chest palpation & inspection: normal inspection of the chest Resp Effort & Inspection: normal respiratory effort Auscultation: clear to auscultation bilaterally Cardio Palpation: normal PMI Rate: regular rate Rhythm: regular rhythm GI Inspection: normal to inspection Palpation: soft and nontender Auscultation: normal bowel sounds Skin General: other (Lower extremity wrapped with Lisa bandages) Neuro General: patient oriented x3 Extrem General: abnormal to inspection (Lisa bandages) Results Labs 05/29/23 06:28 05/29/23 06:28 Labs: Laboratory Results - Last 48 hrs. 05/29/23 06:43: POC Glucose 174 05/29/23 06:28: PHA Creatinine Clear 38.83, Sodium 132 L, Potassium 3.9, Chloride 95 L, Carbon Dioxide 27.4, Anion Gap 13.5, BUN 39 H, Creatinine 2.04 H,Est GFR (CKD-EPI) 26.083, Glucose 161 H D, Calcium 7.9 L 05/29/23 06:28: Corrected WBC 12.7 H, RBC 3.71, Hgb 11.6 L, Hct 34.1, MCV 92.0, MCH 31.2, MCHC 33.9, RDW 13.8, Plt Count 228, MPV 7.6 05/29/23 02:00: C. difficile Tox B Gene Negative 05/28/23 16:51: POC Glucose 82, POC Glucose Comment Glu2: cleaned meter 05/28/23 16:28: POC Glucose 52 L*, POC Glucose Comment 05/28/23 14:53: Lactic Acid 1.5 05/28/23 12:16: Troponin I High Sens 476.9 H* 05/28/23 11:44: POC Glucose 229, POC Glucose Comment Glu2: cleaned meter 05/28/23 06:41: POC Glucose 263, POC Glucose Comment Glu2: cleaned meter 05/28/23 05:51: Lactic Acid 3.7 H* 05/28/23 05:51: PHA Creatinine Clear 44.45, Sodium 131 L, Potassium 4.1, Chloride 95 L, Carbon Dioxide 24.5, Anion Gap 15.6 H, BUN 29 H, Creatinine 1.76 H, Est GFR (CKD-EPI) 31.139, Glucose 296 H, Calcium 8.8, Total Bilirubin 0.7, AST 22, ALT 12, Alkaline Phosphatase 51, Total Protein 6.8, Albumin 3.9, Globulin 2.9, Albumin/Globulin Ratio 1.3 05/28/23 05:51: Corrected WBC 7.9, Uncorrected WBC Count 7.9, RBC 4.23, Hgb 13.2, Hct 39.5, MCV 93.4, MCH 31.2, MCHC 33.4, RDW 13.7, Plt Count 222, MPV 7.3,Neut % (Auto) 89.6, Lymph % (Auto) 7.6, [place] % (Auto) 2.5, Eos % (Auto) 0.1, Baso % (Auto) 0.2, Nucleat RBC Rel Count 0.1, Neut # (Auto) 7.1, Lymph # (Auto) 0.6 L, [place] # (Auto) 0.2, Eos # (Auto) 0.0, Baso # (Auto) 0.0 05/28/23 05:51: Troponin I High Sens 574.2 H* 05/28/23 00:42: Urine Color Yellow, Urine Appearance Clear, Urine pH 5.5, Ur Specific [place] 1.017, Urine Protein 30 H, Urine Glucose (UA) 500 H, Urine Ketones Trace H, Urine Occult Blood Negative, Urine Nitrite Negative, Urine Bilirubin Negative, Urine Urobilinogen Normal, Ur Leukocyte Esterase 1+ H, UrineRBC 0-1, Urine WBC 5-9 H, Ur Squamous Epith Cells 1-2, Urine Bacteria None seen,Hyaline Casts 0-8 05/28/23 00:10: Troponin I High Sens 382.2 H* 05/27/23 22:56: POC Glucose 397 05/27/23 22:42: Magnesium 1.4 L 05/27/23 22:42: Total Creatine Kinase 137, Troponin I High Sens 302.1 H* 05/27/23 22:42: Lactic Acid 5.8 H* 05/27/23 22:42: PHA Creatinine Clear 42.25, Sodium 131 L, Potassium 4.2, Chloride 93 L, Carbon Dioxide 22.2, Anion Gap 20.0 H, BUN 31 H, Creatinine 1.83 H, Est GFR (CKD-EPI) 29.715, Glucose 376 H, Calcium 9.1, Total Bilirubin 0.8, AST 17, ALT 13, Alkaline Phosphatase 54, Total Protein 7.1, Albumin 3.8, Globulin 3.3, Albumin/Globulin Ratio 1.2 05/27/23 22:42: Corrected WBC 11.7 H, Uncorrected WBC Count 11.7 H, RBC 4.12, Hgb 12.8, Hct 38.5, MCV 93.4, MCH 31.0, MCHC 33.2, RDW 13.5, Plt Count 264, MPV 7.5, Neut % (Auto) 95.2, Lymph % (Auto) 3.1, [place] % (Auto) 1.4, Eos % (Auto) 0.0, Baso % (Auto) 0.3, Nucleat RBC Rel Count 0.0, Neut # (Auto) 11.2 H, Lymph #(Auto) 0.4 L, [place] # (Auto) 0.2, Eos # (Auto) 0.0, Baso # (Auto) 0.0, Monocyte Dist Width 40.58 H, Platelet Estimate Normal, Plt Morphology Comment Normal, RBCMorphology Normal Microbiology Results Microbiology Narrative: 05/27/23 23:20 Blood Culture - Preliminary Blood - Left Antecubital Presumptive Viridans Strep Bacterial ID (NA Multiplex Assay) - Final 05/29/23 06:28 Blood Culture - Pending Blood - Right Hand 05/29/23 06:21 Blood Culture - Pending Blood - Right Antecubital 05/29/23 02:00 Stool Lactoferrin - Final Stool 05/29/23 02:00 Stool Culture - Pending Stool 05/28/23 00:42 Urine Culture - Pending Urine - Straight Cath 05/27/23 22:42 Blood Culture - Pending Blood - Right Antecubital Imaging and Cardiology Status: report viewed by me Results Comments: IMPRESSION: ? CHEST DEMONSTRATES CHF FINDINGS FOR ACUTE PROCESS. ? LEFT SHOULDER DEMONSTRATES DEGENERATIVE CHANGE WITH EVIDENCE OF CALCIFIC TENDINITIS.? NO ACUTE BONY PROCESS. A&P - Infectious Disease (1) Positive blood culture: Status: Acute Plan Patient had positive blood culture with presumptive strep viridans with other blood cultures pending. Urine analysis not that impressive but her creatinine was higher than her baseline and it appears they are considering UTI as a diagnosis. She clearly came in due to vomiting and then was admitted with feverand concerns of chest pain. It seemed that she had acute onset of persistent nausea and bloody vomiting that has now resolved. She denies any sick contacts around her. She was having diarrhea prior to coming to the hospital but has nothad diarrhea since. Bowel movement last night she tells me was formed. She is not having abdominal pain at this time. She still feels nauseated. LFTs were really not impressive. Given the positive blood culture awaiting further identification of this organism. Ceftriaxone however should be effective. Awaiting repeat blood cultures. Documented By: Deep Eubanks MD 05/29/23930 Signed By: <Electronically signed by MD Deep Eubanks> 05/29/2340 [facility] Work Phone: 1(754) 375-178607-31-2023 Progress note Author Fahad Dobson [facility] May 29, 2023 9:02am Note Date/Time May 29, 2023 8:54 am [facility] [address] [place] [address] Hospitalist Progress Note Signed Patient: Namrata Jack MR#: [id number] : 1955 Acct:[id number] Age/Sex: 67 / F Adm Date: 3 Loc: Room: [address] [place] [address] Type: ADM IN Attending Dr: Fahad Dobson MD Copies to: ~ Date of Service: 05/29/2023 Subjective Subjective Narrative: Assessment And Plan 63F with PMH of HTN, DM, HLD, Diabetic neuropathy, CAD s/p Stenting, Mild MR, GERD, diverticulosis, Morbid Obesity who p/w N/V/Chest pain. found with Fever, lactic acidosis and admitted for possible UTI Chest pain/Elevated Troponin rule out NSTEMI Seen and examined Clinically stable No more chest pain Seen by cardiology No further cardiac work up Continue aspirin and Plavix Continue Lopressor Continue Ranexa Febrile illness , suspected due to urinary tract Clinically better No fever Chest: Cardiomegaly with vascular congestion.? No consolidation pneumothorax pleural effusion or free air. Left shoulder: Evidence of calcific tendinitis.? No acute bony process is seen.?Mild degenerative changes of the AC and glenohumeral joints.? Blood cultures are pending Urine cultures is pending Rocephin IV daily Gastroenteritis No more diarrhea Mild nausea NO abdominal pain Hyponatremia: Improving / BMP in am Acute on CKD Kidney function slightly worse today creatinine up to 2.04 Hold Losartan BMP in am Chronic left lower extremity wound wound care nurse consulted Diabetes mellitus type, continue with home medical therapy, add sliding Hypomagnesemia replacement Exam Physical Exam Vital Signs: Temp Pulse Resp BP Pulse Ox O2 Del Method 98.8 F 80 18 132/78 93 L Room Air 05/29/23 04:00 05/29/23 04:00 05/29/23 04:00 05/29/23 04:00 05/29/23 04:00 05/29/23 04:00 Objective Lab Results 05/29/23 06:28 05/29/23 06:28 Microbiology Results Microbiology 05/27/23 23:20 Blood - Left Antecubital Blood Culture - Preliminary Presumptive Viridans Strep 05/27/23 23:20 Blood - Left Antecubital Bacterial ID (NA Multiplex Assay) - Final 05/29/23 02:00 Stool Stool Lactoferrin - Final Meds Allergies and Active Meds Allergies Penicillins Allergy (Severe, Verified 05/27/23 22:27) Anaphylaxis IV Dye Allergy (Severe, Uncoded 05/27/23 22:27) Anaphylaxis Active Meds: Active Medications Generic Name Dose Route Start Last Admin Trade Name Ellie PRN Reason Stop Dose Admin Acetaminophen 650 mg 05/28/23 04:10 05/28/23 09:02 Acetaminophen 325 Mg Tablet PO 05/27/24 04:09 650 mg Q4H PRN Administration Pain Scale 1 - 5 Hydrocodone Bitart/Acetaminophen 1 tab 05/28/23 04:08 05/29/23 06:31 Hydrocodone/Acetaminophen 10-325 Mg Tablet PO 1 tab QID PRN Administration Pain Albuterol 2.5 mg 05/28/23 04:10 Albuterol Neb 2.5 Mg/3 Ml Vial.Neb INHALATION 05/27/24 04:09 Q2H PRN Shortness Of Breath Aspirin 81 mg 05/28/23 09:00 05/28/23 09:03 Aspirin 81 Mg Tablet.Dr PO 05/27/24 08:59 81 mg DAILY TONY Administration Atorvastatin Calcium 80 mg 05/28/23 22:00 05/28/23 21:10 Atorvastatin 80 Mg Tablet PO 05/27/24 21:59 80 mg HS TONY Administration Clopidogrel Bisulfate 75 mg 05/28/23 09:00 05/28/23 09:02 Clopidogrel Bisulfate 75 Mg Tablet PO 05/27/24 08:59 75 mg DAILY TONY Administration Cyclobenzaprine HCl 10 mg 05/28/23 04:08 Cyclobenzaprine 10 Mg Tablet PO 05/27/24 04:07 TID PRN Spasms Dextrose 0 gm 05/28/23 04:10 Dextrose 50% In Water 25 Gm/50 Ml Syringe IV-PUSH 05/27/24 04:09 PRN PRN Hypoglycemia Docusate Sodium 200 mg 05/28/23 04:10 05/28/23 18:21 Docusate 100 Mg Capsule PO 05/27/24 04:09 200 mg BID PRN Administration Constipation Enoxaparin Sodium 150 mg 05/28/23 09:00 05/29/23 04:25 Enoxaparin 150 Mg/Ml Syringe SUBCUT 05/27/24 08:59 Not Given Q12HR TONY Famotidine 20 mg 05/28/23 22:00 05/28/23 21:10 Famotidine 20 Mg Tablet PO 05/27/24 21:59 20 mg QHS TONY Administration Gabapentin 600 mg 05/28/23 09:00 05/28/23 21:11 Gabapentin 300 Mg Capsule PO 05/27/24 08:59 600 mg BID TONY Administration Glucose 0 gm 05/28/23 04:10 Dextrose 40% Gel 15 Gm Tube PO 05/27/24 04:09 PRN PRN Hypoglycemia Ceftriaxone Sodium 2 gm in 50 mls @ 100 mls/hr 05/28/23 16:00 05/28/23 16:00 Rocephin IV 100 mls/hr Q24H TONY Administration Insulin Aspart 0 units 05/28/23 08:00 05/28/23 21:13 Insulin Aspart 300 Units/3 Ml Insuln.Pen SUBCUT 05/27/24 07:59 Not Given TID.WM.HS [facility] Protocol Insulin Aspart 40 units 05/28/23 08:00 05/28/23 16:56 Insulin Aspart 300 Units/3 Ml Insuln.Pen SUBCUT 05/27/24 07:59 Not Given TID.WITH.MEALS TONY Insulin Glargine 50 units 05/28/23 07:30 05/28/23 09:17 Insulin Glargine 300 Units/3 Ml Insuln.Pen SUBCUT 05/27/24 07:29 50 units DAILY.0730A TONY Administration Insulin Glargine 40 units 05/28/23 22:00 05/28/23 21:12 Insulin Glargine 300 Units/3 Ml Insuln.Pen SUBCUT 05/27/24 21:59 Not Given HS TONY Metoprolol Tartrate 12.5 mg 05/28/23 09:00 05/28/23 21:10 Metoprolol Tartrate 12.5 Mg Tablet PO 05/27/24 08:59 12.5 mg BID TONY Administration Oxybutynin Chloride 5 mg 05/28/23 09:00 05/28/23 21:10 Oxybutynin Chloride 5 Mg Tablet PO 05/27/24 08:59 5 mg BID TONY Administration Prochlorperazine Edisylate 5 mg 05/28/23 04:10 05/29/23 06:31 Prochlorperazine Edisylate 10 Mg/2 Ml Vial IV-PUSH 05/27/24 04:09 5 mg Q4H PRN Administration Nausea And Vomiting Ranolazine 500 mg 05/28/23 09:00 05/28/23 21:10 Ranolazine 500 Mg Tab.Er.12h PO 05/27/24 08:59 500 mg BID TONY Administration Sertraline HCl 100 mg 05/28/23 09:00 05/28/23 09:02 Sertraline 100 Mg Tablet PO 05/27/24 08:59 100 mg DAILY TONY Administration Spironolactone 25 mg 05/28/23 09:00 Spironolactone 25 Mg Tablet PO 05/27/24 08:59 BID TONY Zolpidem Tartrate 5 mg 05/28/23 04:08 Zolpidem 5 Mg Tablet PO 11/24/23 04:07 HS PRN Insomnia A&P - Hospitalist Assessment/Plan (1) Acute UTI: Plan 1. Fever suspected due to urinary tract I could not appreciate any other focal signs of infection, however patient complains of diarrhea as well but no abdominal pain. We will check for C. difficile. For now continue with Rocephin Await cultures 2. Mild acute kidney injury, start gentle hydration, recheck in a.m. 3. Chronic left lower extremity wound, I do not appreciate any active signs of infection, wound care nurse consulted 4. Chest pain, with underlying coronary artery disease, status post multiple intervention, with last cardiac cath in February 2023, no intervention done at that time. Troponins slightly elevated, EKG nonischemic, will consult cardiology For now continue with antiplatelets, troponins flat 5. Elevated lactic acid -again patient denies any abdominal pain but she does have diarrhea For now continue with hydration, blood pressure seems to be stable, no hypotension noted Unlikely mesenteric ischemia as the patient denies abdominal pain Recheck lactic acid 6. Diabetes mellitus type 2, continue with home medical therapy, add sliding 7. Hypomagnesemia replacement Documented By: Fahad Dobson MD 05/29/23 0844 Signed By: <Electronically signed by Fahad Dobson MD> 05/29/23 0902 [facility] Work Phone: [phone]) 757-947507-31-2023 History and physical note Author Paige Aburto [facility] May 29, 2023 6:44am Note Date/Time May 28, 2023 4:21 am [facility] [address] [place] [address] Hospitalist H&P Signed Patient: Namrata Jack MR#: [id number] : 1955 Acct:[id number] Age/Sex: 67 / F Adm Date: 3 Loc: Room: [address] [place] [address] Type: ADM IN Attending Dr: Rohit Francis MD Copies to: MD Latrice Harrison MD Ruta Semaskiene, MD~ HPI DATE OF EXAMINATION: 05/28/23 CHIEF COMPLAINT: Nausea/vomiting HISTORY OF PRESENT ILLNESS: 67 years old female who was discharged from this institution on May 09, 2023. She was treated for acute on chronic congestive heart failure. Today she presented with multiple episodes of nausea associated with nonbloody vomitus andnonbloody diarrhea since yesterday. Patient complained of poor appetite. She denied any abdominal pain. She complained of weakness, it seems like she sustained a fall without loss of consciousness. She complains of pain in her left inner thigh significant trauma. Also she complains of intermittent chest pains. Per patient she has been having chest pains for couple of months. She is following NOMs and it seems like she underwent cardiac cath in February, at that time no intervention was done per patient report. However this time chest pain did not subside after 1 nitroglycerin so she took 2. Currently patient is asymptomatic and denies any chest pain. But she admits worsening cough exertional shortness of breath. She also complains of fevers, but denied any urinary symptoms such as dysuria urgency frequency 10 systems are reviewed and are negative apart as mentioned in H&P General -patient is awake alert oriented ?3, does not appear to be in distress HEENT dry oropharyngeal mucosa without any ulcers or exudates Cardiovascular -S1 plus S2, with regular rate, without any murmurs, gallops, rubs Pulmonary -clear to auscultation bilaterally Gastrointestinal -abdomen is soft, nondistended, diffusely tender, bowel sounds positive, no rigidity, no rebound Genitourinary -deferred Musculoskeletal -no back tenderness, no significant joint swelling, full range of motion Neurological -no focal Skin -ulcer on the left leg noted, but without any significant signs of Extremities - no edema in bilateral lower extremities noted Tenderness in the right inner thigh but no significant skin lesions, fluctuation, redness or erythema noted Psychiatry - appropriate affect Laboratory work up, imaging studies reviewed EKG personally reviewed by me normal sinus rhythm without acute ST-T wave changes Previous records in the computer system reviewed [facility] Medical History Asthma allergy induced CAD (coronary artery disease) Diabetes mellitus Diverticulosis GERD (gastroesophageal reflux disease) HTN (hypertension) Morbid obesity Morbid obesity with BMI of 50.0-59.9, adult Neuropathy Osteoarthritis Pickwickian syndrome Surgical History History of back surgery Hx of appendectomy Hx of cholecystectomy Hx of heart artery stent X6 Hx of hysterectomy Hx of knee surgery Hx of neck surgery Family History Father CAD (coronary artery disease) AMI (acute myocardial infarction) Sister CAD (coronary artery disease) AMI (acute myocardial infarction) Sister CAD (coronary artery disease) AMI (acute myocardial infarction) Brother CAD (coronary artery disease) Social History Smoking Status: Never smoker Tobacco Type: cigarettes Substance Use Type: None Meds Medications and Allergies Allergies Penicillins Allergy (Severe, Verified 05/27/23 22:27) Anaphylaxis IV Dye Allergy (Severe, Uncoded 05/27/23 22:27) Anaphylaxis Home Medications hydrocodone 10 mg-acetaminophen 325 mg tablet 10 - 325 mg PO QID PRN Pain 01/20/18 [History Confirmed 05/28/23] insulin detemir U-100 100 unit/mL subcutaneous solution (Levemir U-100 Insulin) 40 units subcut HS 01/20/18 [History Confirmed 05/28/23] oxybutynin chloride 5 mg tablet 5 mg PO BID 01/20/18 [History Confirmed 05/28/23] zolpidem 5 mg tablet 5 mg PO HS PRN Insomnia 01/20/18 [History Confirmed 05/28/23] gabapentin 300 mg capsule 600 mg PO BID 02/24/18 [History Confirmed 05/28/23] aspirin 81 mg tablet,delayed release (Aspir-Low) 81 mg PO DAILY 06/01/19 [History Confirmed 05/28/23] cholecalciferol (vitamin D3) 50 mcg (2,000 unit) capsule 4,000 unit PO DAILY 06/01/19 [History Confirmed 05/28/23] clopidogrel 75 mg tablet (Plavix) 75 mg PO DAILY 06/01/19 [History Confirmed 05/28/23] cyclobenzaprine 10 mg tablet 10 mg PO TID PRN Spasms 06/01/19 [History Confirmed 05/28/23] sertraline 50 mg tablet (Zoloft) 100 mg PO DAILY 06/01/19 [History Confirmed 05/28/23] insulin lispro 100 unit/mL subcutaneous solution 40 units subcut DIRECTED 06/09/19 [History Confirmed 05/28/23] potassium chloride 20 mEq tablet,extended release 20 meq PO DAILY #30 tabs 06/11/19 [Rx Confirmed 05/28/23] rosuvastatin 20 mg tablet (Crestor) 40 mg PO HS 30 days #30 tabs 06/11/19 [Rx Confirmed 05/28/23] insulin detemir U-100 100 unit/mL subcutaneous solution (Levemir U-100 Insulin) 50 unit subcut DAILY.0730A 05/04/23 [History Confirmed 05/28/23] ranolazine 500 mg tablet,extended release,12 hr 500 mg PO BID 05/04/23 [History Confirmed 05/28/23] famotidine 20 mg tablet 20 mg PO QHS 30 days #30 tabs 05/09/23 [Rx Confirmed 05/28/23] losartan 25 mg tablet 25 mg PO DAILY 30 days #30 tabs 05/09/23 [Rx Confirmed 05/28/23] metoprolol tartrate 25 mg tablet 12.5 mg PO BID 30 days #30 tabs 05/09/23 [Rx Confirmed 05/28/23] spironolactone 25 mg tablet 25 mg PO BID 30 days #60 tabs 05/09/23 [Rx Confirmed 05/28/23] furosemide 40 mg tablet 40 mg PO BID 05/28/23 [History Confirmed 05/28/23] Exam Physical Exam Vital Signs: Temp Pulse Resp BP Pulse Ox O2 Del Method 37.7 C H 78 20 124/70 93 L Room Air 05/28/23 03:36 05/28/23 03:36 05/28/23 03:36 05/28/23 03:36 05/28/23 03:36 05/28/23 03:36 Results Lab Results Labs: Laboratory Last Values Corrected WBC 11.7 X10E3/uL (3.8-11.6) H 05/27/23 22:42 Uncorrected WBC Count 11.7 x10E3/uL (3.8-11.6) H 05/27/23 22:42 RBC 4.12 X10E6/uL (3.60-5.00) 05/27/23 22:42 Hgb 12.8 g/dL (11.8-15.4) 05/27/23 22:42 Hct 38.5 % (34.0-46.4) 05/27/23 22:42 MCV 93.4 fl (80-100) 05/27/23 22:42 MCH 31.0 pg (24.7-34.3) 05/27/23 22:42 MCHC 33.2 g/dL (32.0-35.0) 05/27/23 22:42 RDW 13.5 % (11.9-15.3) 05/27/23 22:42 Plt Count 264 x10E3/uL (150-450) 05/27/23 22:42 MPV 7.5 fl (6.3-10.7) 05/27/23 22:42 Neut % (Auto) 95.2 % (.) 05/27/23 22:42 Lymph % (Auto) 3.1 % (.) 05/27/23 22:42 [place] % (Auto) 1.4 % (.) 05/27/23 22:42 Eos % (Auto) 0.0 % (.) 05/27/23 22:42 Baso % (Auto) 0.3 % (.) 05/27/23 22:42 Nucleat RBC Rel Count 0.0 /100 WBC (0-0.5) 05/27/23 22:42 Neut # (Auto) 11.2 x10E3/uL (1.8-7.7) H 05/27/23 22:42 Lymph # (Auto) 0.4 x10E3/uL (1.00-4.8) L 05/27/23 22:42 [place] # (Auto) 0.2 x10E3/uL (0.0-0.8) 05/27/23 22:42 Eos # (Auto) 0.0 x10E3/uL (0.0-0.45) 05/27/23 22:42 Baso # (Auto) 0.0 x10E3/uL (0.0-0.2) 05/27/23 22:42 Monocyte Dist Width 40.58 % (0.00-20.00) H 05/27/23 22:42 Platelet Estimate Normal (Normal) 05/27/23 22:42 Plt Morphology Comment Normal (Normal) 05/27/23 22:42 RBC Morphology Normal (Normal) 05/27/23 22:42 PHA Creatinine Clear 42.25 05/27/23 22:42 Sodium 131 mmol/L (136-145) L 05/27/23 22:42 Potassium 4.2 mmol/L (3.5-5.1) 05/27/23 22:42 Chloride 93 mmol/L (98-107) L 05/27/23 22:42 Carbon Dioxide 22.2 mmol/L (21.0-31.0) 05/27/23 22:42 Anion Gap 20.0 mEq/L (6.0-15.0) H 05/27/23 22:42 BUN 31 mg/dL (7-25) H 05/27/23 22:42 Creatinine 1.83 mg/dL (0.60-1.20) H 05/27/23 22:42 Est GFR (CKD-EPI) 29.715 mL/Min 05/27/23 22:42 Glucose 376 mg/dL (70-100) H 05/27/23 22:42 POC Glucose 397 mg/dl 05/27/23 22:56 Lactic Acid 5.8 mmol/L (0.5-2.2) H* 05/27/23 22:42 Calcium 9.1 mg/dL (8.6-10.3) 05/27/23 22:42 Magnesium 1.4 mg/dL (1.9-2.7) L 05/27/23 22:42 Total Bilirubin 0.8 mg/dl (0.3-1.0) 05/27/23 22:42 AST 17 U/L (13-39) 05/27/23 22:42 ALT 13 U/L (7-52) 05/27/23 22:42 Alkaline Phosphatase 54 U/L (34-104) 05/27/23 22:42 Total Creatine Kinase 137 U/L (30-223) 05/27/23 22:42 Troponin I High Sens 382.2 pg/mL (0.0-15.0) H* 05/28/23 00:10 Total Protein 7.1 gm/dL (6.4-8.9) 05/27/23 22:42 Albumin 3.8 gm/dL (3.5-5.7) 05/27/23 22:42 Globulin 3.3 gm/dL 05/27/23 22:42 Albumin/Globulin Ratio 1.2 05/27/23 22:42 Urine Color Yellow (Yellow) 05/28/23 00:42 Urine Appearance Clear (Clear) 05/28/23 00:42 Urine pH 5.5 (5.0-9.0) 05/28/23 00:42 Ur Specific [place] 1.017 (1.001-1.030) 05/28/23 00:42 Urine Protein 30 mg/dL (Negative) H 05/28/23 00:42 Urine Glucose (UA) 500 mg/dL (Normal) H 05/28/23 00:42 Urine Ketones Trace (Negative) H 05/28/23 00:42 Urine Occult Blood Negative (Negative) 05/28/23 00:42 Urine Nitrite Negative (Negative) 05/28/23 00:42 Urine Bilirubin Negative (Negative) 05/28/23 00:42 Urine Urobilinogen Normal mg/dL (Normal) 05/28/23 00:42 Ur Leukocyte Esterase 1+ (Negative) H 05/28/23 00:42 Urine RBC 0-1 /HPF (0-4) 05/28/23 00:42 Urine WBC 5-9 /HPF (0-4) H 05/28/23 00:42 Ur Squamous Epith Cells 1-2 /HPF (0-2) 05/28/23 00:42 Urine Bacteria None seen (None Seen) 05/28/23 00:42 Hyaline Casts 0-8 /LPF (0-8) 05/28/23 00:42 Assessment & Plan Assessment/Plan (1) Acute UTI: Plan 1. Fever suspected due to urinary tract I could not appreciate any other focal signs of infection, however patient complains of diarrhea as well but no abdominal pain. We will check for C. difficile. For now continue with Rocephin Await cultures 2. Mild acute kidney injury, start gentle hydration, recheck in a.m. 3. Chronic left lower extremity wound, I do not appreciate any active signs of infection, wound care nurse consulted 4. Chest pain, with underlying coronary artery disease, status post multiple intervention, with last cardiac cath in February 2023, no intervention done at that time. Troponins slightly elevated, EKG nonischemic, will consult cardiology For now continue with antiplatelets, troponins flat 5. Elevated lactic acid -again patient denies any abdominal pain but she does have diarrhea For now continue with hydration, blood pressure seems to be stable, no hypotension noted Unlikely mesenteric ischemia as the patient denies abdominal pain Recheck lactic acid 6. Diabetes mellitus type 2, continue with home medical therapy, add sliding 7. Hypomagnesemia replacement IP vs OBS Justification Based on differential dx, clinical care plan, and risk of adverse events, if untreated, in my clinical judgement this patient requires an acute care setting as: INPATIENT because of an expectation of an over 2 midnight stay. Estimated length of stay (# of days): 3 Documented By: Paige Aburto MD 05/28/23 0414 Signed By: <Electronically signed by Paige Aburto MD> 05/29/23 0644 [facility] Work Phone: 1(492) 472-433207-30-2023 Progress note Author Rohit Francis [facility] May 28, 2023 3:33pm Note Date/Time May 28, 2023 7:53 am [facility] [address] [place] [address] Hospitalist Progress Note Signed Patient: Namrata Jack MR#: [id number] : 1955 Acct:[id number] Age/Sex: 67 / F Adm Date: 3 Loc: Room: [address] [place] [address] Type: ADM IN Attending Dr: Rohit Francis MD Copies to: ~ Date of Service: 05/28/2023 Subjective Subjective Narrative: Assessment And Plan 63F with PMH of HTN, DM, HLD, Diabetic neuropathy, CAD s/p Stenting, Mild MR, GERD, diverticulosis, Morbid Obesity who p/w N/V/Chest pain. found with Fever, lactic acidosis and admitted for possible UTI Chest pain/Elevated Troponin rule out NSTEMI no chest pain now but reported that she has intermittent chest pain EKG normal Troponin is up to 500s likely type two NC due to sepsis. however given her CAD history NSTEMI can't be ruled out Telemetry Cardiology consult start Leponex ASA , Plavix , Metoprolol and statin Febrile illness , suspected due to urinary tract The patient received around 2L of IVF in the ED which done at 1 am . i did a revelation after giving IVF within 6 hours. the Capillary refill is more than 3 seconds,? Pulses present bilaterally and? Skin normal for ethnicity. repeat lactate level was better continue with Rocephin Await cultures IV hydration Clear diet Gastroenteritis C. difficile pending Stool study Supportive CKD Cr at baseline Chronic left lower extremity wound wound care nurse consulted Diabetes mellitus type, continue with home medical therapy, add sliding Hypomagnesemia replacement Addendum: blood Cx came back positive will increase ceftriaxone dose to 2 g daily and consult to ID . blood Cx to be repeated too in the am INTERVAL HPI: As Above, Pt resting in bed. feeling the same . Denies any chest pain, SOB now. didn't have any BMP so far. Chronic diseases: Unless mentioned Above, Essential home medications have been continued. DVT Px: Addressed Disposition: To be determined Plan of care Discussed with: the medical team, the patient Exam Physical Exam Vital Signs: Temp Pulse Resp BP Pulse Ox O2 Del Method 37.7 C H 95 H 18 146/78 H 95 Room Air 05/28/23 07:36 05/28/23 07:36 05/28/23 07:36 05/28/23 07:36 05/28/23 07:36 05/28/23 07:36 Narrative: GENERAL:Pleasant, cooperative, Not in acute distress. NECK: no JVD LUNGS: Lungs clear to auscultation. Normal respiratory effort. CARDIAC: normal S1 and S2; no rubs, murmurs, or gallops. ABDOMEN: Abdomen soft, minimal non focal tenderest . BS normal. No palpable masses or organomegaly. EXTREMITIES: no edema in LE bilaterally, both legs wrapped with lisa bandage no calf muscle tenderness. NEURO: No focal neurological deficits Objective Lab Results 05/28/23 05:51 05/28/23 05:51 Meds Allergies and Active Meds Allergies Penicillins Allergy (Severe, Verified 05/27/23 22:27) Anaphylaxis IV Dye Allergy (Severe, Uncoded 05/27/23 22:27) Anaphylaxis Active Meds: Active Medications Generic Name Dose Route Start Last Admin Trade Name Ellie PRN Reason Stop Dose Admin Acetaminophen 650 mg 05/28/23 04:10 Acetaminophen 325 Mg Tablet PO 05/27/24 04:09 Q4H PRN Pain Scale 1 - 5 Hydrocodone Bitart/Acetaminophen 1 tab 05/28/23 04:08 05/28/23 05:08 Hydrocodone/Acetaminophen 10-325 Mg Tablet PO 1 tab QID PRN Administration Pain Albuterol 2.5 mg 05/28/23 04:10 Albuterol Neb 2.5 Mg/3 Ml Vial.Neb INHALATION 05/27/24 04:09 Q2H PRN Shortness Of Breath Aspirin 81 mg 05/28/23 09:00 Aspirin 81 Mg Tablet. PO 05/27/24 08:59 DAILY TONY Atorvastatin Calcium 80 mg 05/28/23 22:00 Atorvastatin 80 Mg Tablet PO 05/27/24 21:59 HS TONY Clopidogrel Bisulfate 75 mg 05/28/23 09:00 Clopidogrel Bisulfate 75 Mg Tablet PO 05/27/24 08:59 DAILY TONY Cyclobenzaprine HCl 10 mg 05/28/23 04:08 Cyclobenzaprine 10 Mg Tablet PO 05/27/24 04:07 TID PRN Spasms Dextrose 0 gm 05/28/23 04:10 Dextrose 50% In Water 25 Gm/50 Ml Syringe IV-PUSH 05/27/24 04:09 PRN PRN Hypoglycemia Docusate Sodium 200 mg 05/28/23 04:10 Docusate 100 Mg Capsule PO 05/27/24 04:09 BID PRN Constipation Enoxaparin Sodium 150 mg 05/28/23 09:00 Enoxaparin 150 Mg/Ml Syringe SUBCUT 05/27/24 08:59 Q12HR TONY Famotidine 20 mg 05/28/23 22:00 Famotidine 20 Mg Tablet PO 05/27/24 21:59 QHS TONY Gabapentin 600 mg 05/28/23 09:00 Gabapentin 300 Mg Capsule PO 05/27/24 08:59 BID TONY Glucose 0 gm 05/28/23 04:10 Dextrose 40% Gel 15 Gm Tube PO 05/27/24 04:09 PRN PRN Hypoglycemia Ceftriaxone Sodium 1 gm in 50 mls @ 100 mls/hr 05/29/23 02:00 Rocephin IV Q24H TONY Sodium Chloride 1,000 mls @ 100 mls/hr 05/28/23 04:15 05/28/23 05:08 0.9% Sodium Chloride 1,000 Ml IV 05/28/23 15:03 75 mls/hr .Q10H TONY Administration Magnesium Sulfate 2 gm in 50 mls @ 12.5 mls/hr 05/28/23 04:23 05/28/23 05:22 Magnesium Sulf 2gm-*Swfi* IV 05/28/23 08:22 12.5 mls/hr ONCE ONE Administration Insulin Aspart 0 units 05/28/23 08:00 Insulin Aspart 300 Units/3 Ml Insuln.Pen SUBCUT 05/27/24 07:59 TID.WM.HS [facility] Protocol Insulin Aspart 40 units 05/28/23 08:00 Insulin Aspart 300 Units/3 Ml Insuln.Pen SUBCUT 05/27/24 07:59 TID.WITH.MEALS [facility] Insulin Glargine 50 units 05/28/23 07:30 Insulin Glargine 300 Units/3 Ml Insuln.Pen SUBCUT 05/27/24 07:29 DAILY.0730A [facility] Insulin Glargine 40 units 05/28/23 22:00 Insulin Glargine 300 Units/3 Ml Insuln.Pen SUBCUT 05/27/24 21:59 HS [facility] Metoprolol Tartrate 12.5 mg 05/28/23 09:00 Metoprolol Tartrate 12.5 Mg Tablet PO 05/27/24 08:59 BID [facility] Oxybutynin Chloride 5 mg 05/28/23 09:00 Oxybutynin Chloride 5 Mg Tablet PO 05/27/24 08:59 BID [facility] Prochlorperazine Edisylate 5 mg 05/28/23 04:10 05/28/23 05:23 Prochlorperazine Edisylate 10 Mg/2 Ml Vial IV-PUSH 05/27/24 04:09 5 mg Q4H PRN Administration Nausea And Vomiting Ranolazine 500 mg 05/28/23 09:00 Ranolazine 500 Mg Tab.Er.12h PO 05/27/24 08:59 BID [facility] Sertraline HCl 100 mg 05/28/23 09:00 Sertraline 100 Mg Tablet PO 05/27/24 08:59 DAILY [facility] Spironolactone 25 mg 05/28/23 09:00 Spironolactone 25 Mg Tablet PO 05/27/24 08:59 BID TONY Zolpidem Tartrate 5 mg 05/28/23 04:08 Zolpidem 5 Mg Tablet PO 11/24/23 04:07 HS PRN Insomnia Documented By: Rohit Francis MD 05/28/23 0741 Signed By: <Electronically signed by Rohit Francis MD> 05/28/23 1207 [facility] Work Phone: [phone]) 735-777207-30-2023 Consult note Author Pinky Kern [facility] May 28, 2023 3:04pm Note Date/Time May 28, 2023 3:00 pm [facility] [address] [place] [address] Cardiology Consult Note Signed Patient: Namrata Jack MR#: [id number] : 1955 Acct:[id number] Age/Sex: 67 / F Adm Date: 3 Loc: Room: [address] [place] [address] Type: ADM IN Attending Dr: Rohit Francis MD Copies to: MD Pinky Harrison MD Robert L Hill, MD~ Cardiology HPI History of Present Illness Consult Date: 05/28/23 Reason for Consult: Cardiac consultation requested for evaluation for chest pain and elevated cardiac enzyme HPI: Ms. Jack is a 67 year old female known to our practice. She is known to have history of coronary artery disease status post multivessel PCI including the LADand RCA remotely. She underwent cardiac catheterization back in 2018 showing mild diffuse disease and then repeat in February 2023 showing mild left circumflex and RCA disease with severe disease of the distal LAD that appeared to be subtotal occluded medical therapy was recommended. Patient brought to the hospital because of complaint of recurrent episode of nausea vomiting and multiple episodes of diarrhea she reported also few episode of chest pain for which she took nitroglycerin with resolution. She presented to the hospital andwas noted to be febrile her work-up were suggestive of urinary tract infection she started on antibiotic. She remains weak and fatigued. She remains febrile. She denies recurrence of her chest pain. She is hemodynamically stable. Serial enzymes showed a rise of her troponin up to about 400. EKG was nonacute. Review of Systems Review of Systems All other systems reviewed & are negative unless noted below or in HPI Constitutional Constitutional: Reports fatigue and Reports weakness Eyes Eyes: Reports system reviewed and no additional complaints, except as documented ENT Ears, Nose, Mouth, and Throat: Reports system reviewed and no additional complaints, except as documented Cardiovascular Cardiovascular: Reports chest pain Respiratory Respiratory: Reports dyspnea on exertion Gastrointestinal Gastrointestinal: Reports system reviewed and no additional complaints, except as documented Genitourinary Genitourinary: Reports system reviewed and no additional complaints, except as documented Musculoskeletal Musculoskeletal: Reports system reviewed and no additional complaints, except asdocumented Integumentary/Breasts Skin/Breast: Reports system reviewed and no additional complaints, except as documented Neurologic Neurologic: Reports system reviewed and no additional complaints, except as documented Psychiatric Psychiatric: Reports system reviewed and no additional complaints, except as documented Endocrine Endocrine: Reports system reviewed and no additional complaints, except as documented Hematologic/Lymphatic Hematologic/Lymphatic: Reports system reviewed and no additional complaints, except as documented PMFSH Vaccinated for COVID-19?: Unknown Medical History Asthma allergy induced CAD (coronary artery disease) Diabetes mellitus Diverticulosis GERD (gastroesophageal reflux disease) HTN (hypertension) Morbid obesity Morbid obesity with BMI of 50.0-59.9, adult Neuropathy Osteoarthritis Pickwickian syndrome Surgical History History of back surgery Hx of appendectomy Hx of cholecystectomy Hx of heart artery stent X6 Hx of hysterectomy Hx of knee surgery Hx of neck surgery Family History Father CAD (coronary artery disease) AMI (acute myocardial infarction) Sister CAD (coronary artery disease) AMI (acute myocardial infarction) Sister CAD (coronary artery disease) AMI (acute myocardial infarction) Brother CAD (coronary artery disease) Social History Smoking Status: Never smoker Tobacco Type: cigarettes Substance Use Type: None Meds Medications and Allergies Allergies Penicillins Allergy (Severe, Verified 05/27/23 22:27) Anaphylaxis IV Dye Allergy (Severe, Uncoded 05/27/23 22:27) Anaphylaxis Home Medications hydrocodone 10 mg-acetaminophen 325 mg tablet 10 - 325 mg PO QID PRN Pain 01/20/18 [History Confirmed 05/28/23] insulin detemir U-100 100 unit/mL subcutaneous solution (Levemir U-100 Insulin) 40 units subcut HS 01/20/18 [History Confirmed 05/28/23] oxybutynin chloride 5 mg tablet 5 mg PO BID 01/20/18 [History Confirmed 05/28/23] zolpidem 5 mg tablet 5 mg PO HS PRN Insomnia 01/20/18 [History Confirmed 05/28/23] gabapentin 300 mg capsule 600 mg PO BID 02/24/18 [History Confirmed 05/28/23] aspirin 81 mg tablet,delayed release (Aspir-Low) 81 mg PO DAILY 06/01/19 [History Confirmed 05/28/23] cholecalciferol (vitamin D3) 50 mcg (2,000 unit) capsule 4,000 unit PO DAILY 06/01/19 [History Confirmed 05/28/23] clopidogrel 75 mg tablet (Plavix) 75 mg PO DAILY 06/01/19 [History Confirmed 05/28/23] cyclobenzaprine 10 mg tablet 10 mg PO TID PRN Spasms 06/01/19 [History Confirmed 05/28/23] sertraline 50 mg tablet (Zoloft) 100 mg PO DAILY 06/01/19 [History Confirmed 05/28/23] insulin lispro 100 unit/mL subcutaneous solution 40 units subcut DIRECTED 06/09/19 [History Confirmed 05/28/23] potassium chloride 20 mEq tablet,extended release 20 meq PO DAILY #30 tabs 06/11/19 [Rx Confirmed 05/28/23] rosuvastatin 20 mg tablet (Crestor) 40 mg PO HS 30 days #30 tabs 06/11/19 [Rx Confirmed 05/28/23] insulin detemir U-100 100 unit/mL subcutaneous solution (Levemir U-100 Insulin) 50 unit subcut DAILY.0730A 05/04/23 [History Confirmed 05/28/23] ranolazine 500 mg tablet,extended release,12 hr 500 mg PO BID 05/04/23 [History Confirmed 05/28/23] famotidine 20 mg tablet 20 mg PO QHS 30 days #30 tabs 05/09/23 [Rx Confirmed 05/28/23] losartan 25 mg tablet 25 mg PO DAILY 30 days #30 tabs 05/09/23 [Rx Confirmed 05/28/23] metoprolol tartrate 25 mg tablet 12.5 mg PO BID 30 days #30 tabs 05/09/23 [Rx Confirmed 05/28/23] spironolactone 25 mg tablet 25 mg PO BID 30 days #60 tabs 05/09/23 [Rx Confirmed 05/28/23] furosemide 40 mg tablet 40 mg PO BID 05/28/23 [History Confirmed 05/28/23] Exam Physical Exam Vital Signs: Temp Pulse Resp BP Pulse Ox O2 Del Method 100.5 F H 86 18 118/69 94 L Room Air 05/28/23 12:00 05/28/23 12:00 05/28/23 12:00 05/28/23 12:00 05/28/23 12:00 05/28/23 12:00 Const General: cooperative, no acute distress, well developed, acute distress mild andin distress Nutritional Appearance: obese HEENT Head: atraumatic Mouth: oral mucosae normal Eyes General: appearance normal, both eyes and all related structures Pupils: PERRL Neck Neck: normal visual inspection, supple and no lymphadenopathy noted Neck mass: No Thyroid: thyroid normal Carotids: normal carotid upstroke Chest Chest palpation & inspection: normal inspection of the chest Resp Effort & Inspection: normal respiratory effort Auscultation: clear to auscultation bilaterally Cardio Palpation: normal PMI Rate: regular rate Rhythm: regular rhythm Heart Sounds: S1 normal, S2 normal and murmur systolic II/ and at the left sternal border GI Palpation: soft and no hepatosplenomegaly Percussion: normal to percussion Auscultation: normal bowel sounds Skin General: no rashes or lesions noted and dry skin Neuro General: patient alert, patient awake, patient oriented x3, tone normal and moves all extremities Extrem General: full ROM, capillary refill normal and no clubbing, cyanosis or edema Psych Mental Status: mental status grossly normal Results Labs 05/28/23 05:51 05/28/23 05:51 Lab results: Cardiac Enzymes 05/27/23 05/27/23 05/28/23 Range/Units 22:42 22:42 05:51 AST 17 22 (13-39) U/L Total Creatine Kinase 137 (30-223) U/L CBC 05/27/23 05/28/23 Range/Units 22:42 05:51 RBC 4.12 4.23 (3.60-5.00) X10E6/uL Hgb 12.8 13.2 (11.8-15.4) g/dL Hct 38.5 39.5 (34.0-46.4) % Plt Count 264 222 (150-450) x10E3/uL Neut # (Auto) 11.2 H 7.1 (1.8-7.7) x10E3/uL Lymph # (Auto) 0.4 L 0.6 L (1.00-4.8) x10E3/uL [place] # (Auto) 0.2 0.2 (0.0-0.8) x10E3/uL Eos # (Auto) 0.0 0.0 (0.0-0.45) x10E3/uL Baso # (Auto) 0.0 0.0 (0.0-0.2) x10E3/uL Comprehensive Metabolic Panel 05/27/23 05/28/23 Range/Units 22:42 05:51 Sodium 131 L 131 L (136-145) mmol/L Potassium 4.2 4.1 (3.5-5.1) mmol/L Chloride 93 L 95 L (98-107) mmol/L Carbon Dioxide 22.2 24.5 (21.0-31.0) mmol/L BUN 31 H 29 H (7-25) mg/dL Creatinine 1.83 H 1.76 H (0.60-1.20) mg/dL Glucose 376 H 296 H (70-100) mg/dL Calcium 9.1 8.8 (8.6-10.3) mg/dL AST 17 22 (13-39) U/L ALT 13 12 (7-52) U/L Alkaline Phosphatase 54 51 (34-104) U/L Total Protein 7.1 6.8 (6.4-8.9) gm/dL Albumin 3.8 3.9 (3.5-5.7) gm/dL Intake and Output 05/27/23 05/28/23 05/28/23 23:59 07:59 15:59 Intake Total 3100 / 3440 340 / 3440 Output Total 400 / 400 Balance 2700 / 3040 340 / 3040 Intake: IV 2100 / 2100 Magnesium Sulf 2Gm-*Swfi* 2 gm 50 / 50 In 50 ml @ 200 mls/hr IV ONCE ONE Rx#:[id number] Sodium Chloride 0.9% 1,000 ml 2 2000 / 2000 ,000 ml @ 999 mls/hr IV .Q2H1M ONE Rx#:[id number] cefTRIAXone 1GM-*NS* 1 gm In 50 50 / 50 ml @ 100 mls/hr IV ONCE ONE Rx #:[id number] Oral 1000 / 1240 240 / 1240 Other 100 / 100 Output: Urine 400 / 400 Other: # Unmeasured Voids 200 # Incontinent Voids 2 Weight 148.778 kg 151.5 kg Date of Last Bowel Movement 05/26/23 05/26/23 Patient Weight 05/28/23 23:59 Weight 151.5 kg EKG Interpretations EKG Attestation EKG: I reviewed this ECG and interpreted as documented below: (Normal sinus rhythm without acute ST-T changes) A&P - Cardiology (1) Acute UTI: Code(s): N39.0 - Urinary tract infection, site not specified Plan Assessment 1. Acute coronary syndrome I suspect likely due to type II myocardial infarction. Patient is known to have a history of severe disease affecting the apical segment of the LAD. Her last heart cath was 2 months ago. She had no recurrence of her chest pain. She appears to be hemodynamically stable. Her EKG is nonacute. 2. Febrile illness treated for presumed urinary tract infection the patient hadsignificant GI symptomatology including recurrent nausea and vomiting 3. Mild aortic stenosis 4. Recurrent nausea and vomiting seem to have improved 5. Hypertension 6. Hyperlipidemia 7. Diabetes mellitus 8. Stage III chronic kidney disease 9. Morbid obesity with BMI 59 Plan 1. Continue aspirin, Plavix, metoprolol, Ranexa and heparin 2. Her febrile illness being addressed by the hospitalist service 3. Doubt need to repeat ischemic evaluation considering recent cardiac catheterization 4. Continue with aggressive approach risk factor modification Documented By: Pinky Kern MD 05/28/23 1456 Signed By: <Electronically signed by MD Pinky Kern> 05/28/23 1504 [facility] Work Phone: 1(863) 263-573007-11-2023 Progress note Author Sydnie Milina [facility] May 09, 2023 12:18pm Note Date/Time May 09, 2023 12:1 5pm [facility] [address] [place] [address] Nephrology Progress Note Signed Patient: Namrata Jack MR#: [id number] : 1955 Acct:[id number] Age/Sex: 67 / F Adm Date: 3 Loc: 3T Room: [address] [place] [address] Type: ADM IN Attending Dr: David Lane MD Copies to: ~ Date of Service: 05/09/2023 Subjective Subjective Narrative: Mrs. Jack is a 67-year-old female with a PMH of T2DM, HTN, diastolic heart failure, mild aortic stenosis, heart cath with stent placement x6, HLD that presents to the emergency room for increased shortness of breath with exertion and increased swelling to legs. Patient had a heart cath on March 15 for increased shortness of breath, after which she reports slowly worsening bilateral lower extremity edema up into her abdomen with shortness of breath with activity. No new stents were placed after recent cath. Patient reports occasional chest pain for which she takes nitro. Patient has been experiencing ruptured bullae mostly in the LLE. She currently takes Lasix 40 mg once a day with an increase to 80 mg for the past 3 days per recommendation of her nurse. Patient reports having SONYA but does not use a CPAP. She does sleep in a recliner due to shortness of breath when laying flat. Patient had an echo done 1 year ago which showed EF of 60 to 65% with mild to moderate diastolic dysfunction. ER work-up was significant for sinus bradycardia with first-degree block on EKG. Mild anemia 11.7, BUN 29, creatinine 1.44 which is close to baseline, BNP 115. Her UA showed 1+ leuk, no protein. Chest x-ray significant for cardiomegaly andvascular congestion. She was admitted to the floor on telemetry. And nephrology was consulted for 4+ BLE edema. Interval history: She did today and would like to go home. Denies any chest pain palpation cough nausea vomit diarrhea shortness of breath. Patient was evaluated by cardiology and since she had recent cath on February 2023 with no significant coronary artery disease, no intervention is required. Patient has HFpEF Exam Physical Exam Vital Signs: Temp Pulse Resp BP Pulse Ox O2 Del Method 97.9 F 63 16 130/54 L 95 Room Air 05/09/23 07:42 05/09/23 11:32 05/09/23 11:32 05/09/23 11:32 05/09/23 11:32 05/09/23 11:32 Narrative: General: Appears comfortable and not in distress Heart: S1-S2, no rub Lung: Bilateral air entry, no wheezing or crackles Abdomen: Soft, positive bowel sounds Extremities: Trace edema, no cyanosis Head: Atraumatic, normocephalic Ear: No gross hearing Deficit or external ear redness Eyes: No pallor or redness Neck: No JVD or visible mass Skin: No rashes or warm to touch [employer]: Awake,Alert, following simple command Musculoskeletal: No joint swelling or limitation of movement Psychiatric: Cooperative, normal mood and affect Objective Intake and Output I&O: Intake & Output 05/06/23 05/07/23 05/08/23 05/09/23 23:59 23:59 23:59 23:59 Intake Total 1316 / 1316 2236 / 2236 1546 / 1546 200 / 200 Output Total 6125 / 6125 4000 / 4000 4675 / 4675 1000 / 1000 Balance -4809 / -4809 -1764 / -1764 -3129 / -3129 -800 / -800 Weight 150.7 kg 150.9 kg 149.1 kg 148.7 kg Meds and Allergies Meds: Active Medications Acetaminophen (Acetaminophen 500 Mg Tablet) 1,000 mg PO Q6HR PRN PRN Reason: Pain Scale 1 - 3 or fever Stop: 05/03/24 21:00 Hydrocodone Bitart/Acetaminophen (Hydrocodone/Acetaminophen 10-325 Mg Tablet) 1tab PO QID PRN PRN Reason: Pain Last Admin: 05/08/23 21:14 Dose: 1 tab Aspirin (Aspirin 81 Mg Tablet.) 81 mg PO DAILY [facility] Stop: 05/04/24 08:59 Last Admin: 05/09/23 08:42 Dose: 81 mg Atorvastatin Calcium (Atorvastatin 80 Mg Tablet) 80 mg PO HS [facility] Stop: 05/03/24 21:59 Last Admin: 05/08/23 21:16 Dose: 80 mg Clopidogrel Bisulfate (Clopidogrel Bisulfate 75 Mg Tablet) 75 mg PO DAILY [facility] Stop: 05/04/24 08:59 Last Admin: 05/09/23 08:42 Dose: 75 mg Cyclobenzaprine HCl (Cyclobenzaprine 10 Mg Tablet) 10 mg PO TID PRN PRN Reason: Spasms Stop: 05/03/24 21:17 Last Admin: 05/08/23 21:15 Dose: 10 mg Dextrose (Dextrose 50% In Water 25 Gm/50 Ml Syringe) 0 gm IV-PUSH PRN PRN PRN Reason: Hypoglycemia Stop: 05/03/24 21:06 Enoxaparin Sodium (Enoxaparin 40 Mg/0.4 Ml Syringe) 40 mg SUBCUT DAILY@10 [facility] Stop: 05/04/24 09:59 Last Admin: 05/09/23 08:47 Dose: 40 mg Famotidine (Famotidine 20 Mg Tablet) 20 mg PO QHS [facility] Stop: 05/03/24 21:59 Last Admin: 05/08/23 21:16 Dose: 20 mg Furosemide (Furosemide 80 Mg Tablet) 80 mg PO BID@0800,1600 [facility] Stop: 05/08/24 15:59 Gabapentin (Gabapentin 300 Mg Capsule) 600 mg PO BID [facility] Stop: 05/03/24 21:29 Last Admin: 05/09/23 08:43 Dose: 600 mg Glucose (Dextrose 40% Gel 15 Gm Tube) 0 gm PO PRN PRN PRN Reason: Hypoglycemia Stop: 05/03/24 21:06 Last Admin: 05/06/23 14:47 Dose: 15 gm Hydralazine HCl (Hydralazine 20 Mg/Ml Vial) 10 mg IV-PUSH Q4H PRN PRN Reason: hypertension Stop: 05/05/24 11:07 Insulin Aspart (Insulin Aspart 300 Units/3 Ml Insuln.Pen) 0 units SUBCUT TID.WM.HS [facility]; Protocol Stop: 05/03/24 21:59 Last Admin: 05/09/23 08:43 Dose: 3 units Insulin Aspart (Insulin Aspart 300 Units/3 Ml Insuln.Pen) 35 units SUBCUT TID.WITH.MEALS [facility] Stop: 05/06/24 11:59 Last Admin: 05/09/23 08:43 Dose: 35 units Insulin Glargine (Insulin Glargine 300 Units/3 Ml Insuln.Pen) 45 units SUBCUT BID [facility] Stop: 05/06/24 08:59 Last Admin: 05/09/23 08:44 Dose: 45 units Losartan Potassium (Losartan 25 Mg Tablet) 25 mg PO DAILY [facility] Stop: 05/06/24 08:59 Last Admin: 05/09/23 08:42 Dose: 25 mg Metoprolol Tartrate (Metoprolol Tartrate 12.5 Mg Tablet) 12.5 mg PO BID [facility] Stop: 05/06/24 20:59 Last Admin: 05/09/23 08:42 Dose: 12.5 mg Oxybutynin Chloride (Oxybutynin Chloride 5 Mg Tablet) 5 mg PO BID [facility] Stop: 05/04/24 08:59 Last Admin: 05/09/23 08:42 Dose: 5 mg Potassium Chloride (Potassium Chloride Er 20 Meq Tab.Er.Prt) 20 meq PO DAILY [facility] Stop: 05/04/24 08:59 Last Admin: 05/09/23 08:42 Dose: 20 meq Ranolazine (Ranolazine 500 Mg Tab.Er.12h) 500 mg PO BID [facility] Stop: 05/04/24 08:59 Last Admin: 05/09/23 08:42 Dose: 500 mg Sertraline HCl (Sertraline 50 Mg Tablet) 50 mg PO DAILY [facility] Stop: 05/04/24 08:59 Last Admin: 05/09/23 08:42 Dose: 50 mg Sodium Chloride (Sodium Chloride 0.9 % 10 Ml Syringe) 0 ml IV-PUSH PRN PRN PRN Reason: Flush Stop: 05/03/24 16:39 Last Admin: 05/09/23 06:07 Dose: 10 ml Spironolactone (Spironolactone 25 Mg Tablet) 25 mg PO BID [facility] Stop: 05/04/24 20:59 Last Admin: 05/09/23 08:43 Dose: 25 mg Vitamin D (Cholecalciferol 25 Mcg (1,000 Units) Tablet) 100 mcg PO DAILY [facility] Stop: 05/04/24 09:59 Last Admin: 05/09/23 08:41 Dose: 100 mcg Zolpidem Tartrate (Zolpidem 5 Mg Tablet) 5 mg PO HS PRN PRN Reason: Insomnia Stop: 10/31/23 21:17 Last Admin: 05/08/23 21:15 Dose: 5 mg Allergies Penicillins Allergy (Severe, Verified 05/04/23 16:40) Anaphylaxis IV Dye Allergy (Severe, Uncoded 05/04/23 16:40) Anaphylaxis Results Labs 05/05/23 05:33 05/09/23 05:50 Labs: 05/09/23 05:50 BUN 35 H Creatinine 1.76 H Radiology Impressions Impressions - last 24 hours: Any impression(s) listed above is documentation that was entered by the reading physician into a diagnostic report(s) for Namrata Jack. I have reviewed the report(s) and am incorporating any findings in the treatment plan of this patient where applicable. A&P - Nephrology Assessment/Plan (1) Acute on chronic diastolic heart failure: Assessment/Problem Details: Right-sided diastolic mild to moderate heart failure with acute exacerbation andsignificant volume retention and lower extremity edema. Echo mostly unchanged from 12/21 and today. Her BNP is 115 which suggested less left ventricular contribution. This does not rule out pulmonary hypertension. Patient takes Lasix 40 mg daily with a recent increase to 80 mg over the last 3 days. Despitethis she has had significant shortness of breath with exertion and persistent volume overload. Kidney function is grossly preserved. Her Lasix has been heldand started on Bumex 1 mg/h IV. The goal is to increase diuresis and continue to monitor kidney function, electrolyte balance, and blood pressure. Cardiology has also been consulted. She had recent cardiac cath on February 2023 with minimal CAD. No intervention is required at this point. Patient has HFpEF. Ironicallythe patient had low BNP on admission that has been noticed in obese patient withCHF possibly related to BNP deficiency and those patients are more likely to develop fluid overload. (2) Morbid obesity with BMI of 50.0-59.9, adult: Plan: She is morbidly obese with upper regulation of mineralocorticoid system with excessive salt and water retention. (3) Pickwickian syndrome: Plan: Patient is morbidly obese with history of sleep apnea however he does not use BiPAP. (4) Hypomagnesemia: Assessment/Problem Details: She has hypomagnesemia due to the diuretic induced renal magnesium wasting. Plan * Stop Bumex 1 mg IV every 8 hour and start Lasix 80 mg p.o. twice daily * Continue spironolactone 25 mg twice daily and oral potassium 20 mg once daily. * Continue to hold amlodipine upon discharge * Continue salt restriction * Continue current dose of the losartan 25 mg daily and metoprolol 12.5 mg twice daily upon discharge. * Check renal function 3 days after discharge. Follow-up in our office in 3 weeks. * Check iron studies, B12 and folate level. * Patient should monitor her weight at home and call our office if she gains 2 pounds in 24 hours or 5 pounds in 1 week. Documented By: Sydnie Milian MD 05/09/231212 Signed By: <Electronically signed by Sydnie Milian MD> 05/09/23 1218 [facility] Work Phone: [phone] 345-629107-10-2023 Progress note Author Sydnie Milian [facility] May 08, 2023 1:10pm Note Date/Time May 08, 2023 1:10 pm [facility] [address] [place] [address] Nephrology Progress Note Signed Patient: Namrata Jack MR#: [id number] : 1955 Acct:[id number] Age/Sex: 67 / F Adm Date: 3 Loc: Room: [address] [place] [address] Type: ADM IN Attending Dr: David Lane MD Copies to: ~ Date of Service: 05/08/2023 Subjective Subjective Narrative: Mrs. Jack is a 67-year-old female with a PMH of T2DM, HTN, diastolic heart failure, mild aortic stenosis, heart cath with stent placement x6, HLD that presents to the emergency room for increased shortness of breath with exertion and increased swelling to legs. Patient had a heart cath on March 15 for increased shortness of breath, after which she reports slowly worsening bilateral lower extremity edema up into her abdomen with shortness of breath with activity. No new stents were placed after recent cath. Patient reports occasional chest pain for which she takes nitro. Patient has been experiencing ruptured bullae mostly in the LLE. She currently takes Lasix 40 mg once a day with an increase to 80 mg for the past 3 days per recommendation of her nurse. Patient reports having SONYA but does not use a CPAP. She does sleep in a recliner due to shortness of breath when laying flat. Patient had an echo done 1 year ago which showed EF of 60 to 65% with mild to moderate diastolic dysfunction. ER work-up was significant for sinus bradycardia with first-degree block on EKG. Mild anemia 11.7, BUN 29, creatinine 1.44 which is close to baseline, BNP 115. Her UA showed 1+ leuk, no protein. Chest x-ray significant for cardiomegaly andvascular congestion. She was admitted to the floor on telemetry. And nephrology was consulted for 4+ BLE edema. Interval history: Patient was seen and examined bedside. She is feeling better than yesterday reported leg swelling has gone down. She denies any chest pain palpation cough nausea vomit diarrhea shortness of breath. She is continues to have a good urine output with Bumex drip Patient was evaluated by cardiology and since she had recent cath on February 2023 with no significant coronary artery disease, no intervention is required. Patient has HFpEF Exam Physical Exam Vital Signs: Temp Pulse Resp BP Pulse Ox O2 Del Method 97.4 F L 59 L 18 130/63 94 L Room Air 05/08/23 08:00 05/08/23 11:30 05/08/23 11:30 05/08/23 11:30 05/08/23 11:30 05/08/23 11:30 Narrative: Constitutional: Morbidly obese, laying flat in the bed with respiratory distressand oxygen HEENT: Head with atraumatic, normal cephalic. He has mild pallor with no jaundice or cyanosis. Cardiovascular: RRR, normal S1-S2, no gallop or rub, No JVD Respiratory: Diminished breath sounds with scattered crackles in both lung naylor. Gastrointestinal: Soft, non tender, positive bowel sounds. Difficult to palpateorgans. Extremities: Pitting edema did improve down to 1+. He has wound on the left legafter light trauma. The wound seeping fluid currently in dressing. Skin: No rashes or bruises Musculoskeletal: No joints swellings or inflammation Neurology: Awake, alert, oriented ?3, No focal motor or sensory deficits Psych: Normal mood and affect Objective Intake and Output I&O: Intake & Output 05/05/23 05/06/23 05/07/23 05/08/23 23:59 23:59 23:59 23:59 Intake Total 1740 / 1740 1316 / 1316 2236 / 2236 96 / 96 Output Total 2900 / 2900 6125 / 6125 4000 / 4000 1325 / 1325 Balance -1160 / -1160 -4809 / -4809 -1764 / -1764 -1229 / -1229 Weight 154 kg 150.7 kg 150.9 kg 149.1 kg Meds and Allergies Meds: Active Medications Acetaminophen (Acetaminophen 500 Mg Tablet) 1,000 mg PO Q6HR PRN PRN Reason: Pain Scale 1 - 3 or fever Stop: 05/03/24 21:00 Hydrocodone Bitart/Acetaminophen (Hydrocodone/Acetaminophen 10-325 Mg Tablet) 1tab PO QID PRN PRN Reason: Pain Last Admin: 05/08/23 12:41 Dose: 1 tab Aspirin (Aspirin 81 Mg Tablet.) 81 mg PO DAILY [facility] Stop: 05/04/24 08:59 Last Admin: 05/08/23 08:56 Dose: 81 mg Atorvastatin Calcium (Atorvastatin 80 Mg Tablet) 80 mg PO HS [facility] Stop: 05/03/24 21:59 Last Admin: 05/07/23 22:07 Dose: 80 mg Bumetanide (Bumetanide 1 Mg/4 Ml Vial) 1 mg IV-PUSH Q8HR [facility] Stop: 05/07/24 13:59 Clopidogrel Bisulfate (Clopidogrel Bisulfate 75 Mg Tablet) 75 mg PO DAILY [facility] Stop: 05/04/24 08:59 Last Admin: 05/08/23 08:57 Dose: 75 mg Cyclobenzaprine HCl (Cyclobenzaprine 10 Mg Tablet) 10 mg PO TID PRN PRN Reason: Spasms Stop: 05/03/24 21:17 Last Admin: 05/07/23 22:52 Dose: 10 mg Dextrose (Dextrose 50% In Water 25 Gm/50 Ml Syringe) 0 gm IV-PUSH PRN PRN PRN Reason: Hypoglycemia Stop: 05/03/24 21:06 Enoxaparin Sodium (Enoxaparin 40 Mg/0.4 Ml Syringe) 40 mg SUBCUT DAILY@10 [facility] Stop: 05/04/24 09:59 Last Admin: 05/08/23 09:43 Dose: 40 mg Famotidine (Famotidine 20 Mg Tablet) 20 mg PO QHS [facility] Stop: 05/03/24 21:59 Last Admin: 05/07/23 22:07 Dose: 20 mg Gabapentin (Gabapentin 300 Mg Capsule) 600 mg PO BID [facility] Stop: 05/03/24 21:29 Last Admin: 05/08/23 08:56 Dose: 600 mg Glucose (Dextrose 40% Gel 15 Gm Tube) 0 gm PO PRN PRN PRN Reason: Hypoglycemia Stop: 05/03/24 21:06 Last Admin: 05/06/23 14:47 Dose: 15 gm Hydralazine HCl (Hydralazine 20 Mg/Ml Vial) 10 mg IV-PUSH Q4H PRN PRN Reason: hypertension Stop: 05/05/24 11:07 Sodium Chloride (0.9% Sodium Chloride 1,000 Ml) 1,000 mls @ 20 mls/hr IV .Q24H [facility] Stop: 05/04/24 10:44 Last Admin: 05/07/23 09:57 Dose: 20 mls/hr Insulin Aspart (Insulin Aspart 300 Units/3 Ml Insuln.Pen) 0 units SUBCUT TID.WM.HS [facility]; Protocol Stop: 05/03/24 21:59 Last Admin: 05/08/23 12:28 Dose: 3 units Insulin Aspart (Insulin Aspart 300 Units/3 Ml Insuln.Pen) 35 units SUBCUT TID.WITH.MEALS [facility] Stop: 05/06/24 11:59 Last Admin: 05/08/23 12:31 Dose: 35 units Insulin Glargine (Insulin Glargine 300 Units/3 Ml Insuln.Pen) 45 units SUBCUT BID [facility] Stop: 05/06/24 08:59 Last Admin: 05/08/23 08:54 Dose: 45 units Losartan Potassium (Losartan 25 Mg Tablet) 25 mg PO DAILY [facility] Stop: 05/06/24 08:59 Last Admin: 05/08/23 08:56 Dose: 25 mg Metoprolol Tartrate (Metoprolol Tartrate 12.5 Mg Tablet) 12.5 mg PO BID [facility] Stop: 05/06/24 20:59 Last Admin: 05/08/23 08:56 Dose: 12.5 mg Oxybutynin Chloride (Oxybutynin Chloride 5 Mg Tablet) 5 mg PO BID [facility] Stop: 05/04/24 08:59 Last Admin: 05/08/23 08:57 Dose: 5 mg Potassium Chloride (Potassium Chloride Er 20 Meq Tab.Er.Prt) 20 meq PO DAILY [facility] Stop: 05/04/24 08:59 Last Admin: 05/08/23 08:57 Dose: 20 meq Ranolazine (Ranolazine 500 Mg Tab.Er.12h) 500 mg PO BID [facility] Stop: 05/04/24 08:59 Last Admin: 05/08/23 08:57 Dose: 500 mg Sertraline HCl (Sertraline 50 Mg Tablet) 50 mg PO DAILY [facility] Stop: 05/04/24 08:59 Last Admin: 05/08/23 08:56 Dose: 50 mg Sodium Chloride (Sodium Chloride 0.9 % 10 Ml Syringe) 0 ml IV-PUSH PRN PRN PRN Reason: Flush Stop: 05/03/24 16:39 Last Admin: 05/04/23 19:21 Dose: 6 ml Spironolactone (Spironolactone 25 Mg Tablet) 25 mg PO BID [facility] Stop: 05/04/24 20:59 Last Admin: 05/08/23 08:57 Dose: 25 mg Vitamin D (Cholecalciferol 25 Mcg (1,000 Units) Tablet) 100 mcg PO DAILY [facility] Stop: 05/04/24 09:59 Last Admin: 05/08/23 08:56 Dose: 100 mcg Zolpidem Tartrate (Zolpidem 5 Mg Tablet) 5 mg PO HS PRN PRN Reason: Insomnia Stop: 10/31/23 21:17 Last Admin: 05/07/23 22:52 Dose: 5 mg Allergies Penicillins Allergy (Severe, Verified 05/04/23 16:40) Anaphylaxis IV Dye Allergy (Severe, Uncoded 05/04/23 16:40) Anaphylaxis Results Labs 05/05/23 05:33 05/08/23 06:05 Labs: 05/08/23 06:05 BUN 34 H Creatinine 1.74 H Radiology Impressions Impressions - last 24 hours: Any impression(s) listed above is documentation that was entered by the reading physician into a diagnostic report(s) for Namrata Jack. I have reviewed the report(s) and am incorporating any findings in the treatment plan of this patient where applicable. A&P - Nephrology Assessment/Plan (1) Acute on chronic diastolic heart failure: Assessment/Problem Details: Right-sided diastolic mild to moderate heart failure with acute exacerbation andsignificant volume retention and lower extremity edema. Echo mostly unchanged from 12/21 and today. Her BNP is 115 which suggested less left ventricular contribution. This does not rule out pulmonary hypertension. Patient takes Lasix 40 mg daily with a recent increase to 80 mg over the last 3 days. Despitethis she has had significant shortness of breath with exertion and persistent volume overload. Kidney function is grossly preserved. Her Lasix has been heldand started on Bumex 1 mg/h IV. The goal is to increase diuresis and continue to monitor kidney function, electrolyte balance, and blood pressure. Cardiologyhas also been consulted. She had recent cardiac cath on February 2023 with minimal CAD. No intervention is required at this point. Patient has HFpEF. Ironicallythe patient had low BNP on admission that has been noticed in obese patient withCHF possibly related to BNP deficiency and those patients are more likely to develop fluid overload. (2) Morbid obesity with BMI of 50.0-59.9, adult: Plan: She is morbidly obese with upper regulation of mineralocorticoid system with excessive salt and water retention. (3) Pickwickian syndrome: Plan: Patient is morbidly obese with history of sleep apnea however he does not use BiPAP. (4) Hypomagnesemia: Assessment/Problem Details: She has hypomagnesemia due to the diuretic induced renal magnesium wasting. Plan * Stop Bumex drip and start Bumex 1 mg IV every 8 hour * Continue spironolactone 25 mg twice daily and oral potassium 20 mg once daily. * Will discontinue amlodipine to allow diuresis with a stable blood pressure and renal function. Patient still have significant fluid overload with high risk of readmission. * Continue salt restriction * Continue current dose of the losartan 25 mg daily and metoprolol 12.5 mg twice daily. * Monitor daily renal panel and monitor input and output Documented By: Sydnie Milian MD 05/08/23 1305 Signed By: <Electronically signed by Sydnie Milian MD> 05/08/23 1310 [facility] Work Phone: [phone] 566-352007-10-2023 Progress note Author David Lane [facility] May 08, 2023 12:15pm Note Date/Time May 08, 2023 12:1 5pm [facility] [address] [place] [address] Hospitalist Progress Note Signed Patient: Namrata Jack MR#: [id number] : 1955 Acct:[id number] Age/Sex: 67 / F Adm Date: 3 Loc: Room: [address] [place] [address] Type: ADM IN Attending Dr: David Lane MD Copies to: ~ Date of Service: 05/08/2023 Subjective Subjective Narrative: Mrs. Jack is a 67-year-old female with a PMH of T2DM, HTN, diastolic heart failure, mild aortic stenosis, heart cath with stent placement x6, HLD that presents to the emergency room today for increased shortness of breath with exertion and increased swelling to legs. Patient seen and evaluated in the emergency room, resting on the cart quietly, at bedside. She reports that her premium representative Dr. Ortega instructed her to be seen in the emergency room for increased shortness of breath and swelling to her legs. She reports that she had a left heart cath in March 15, 2 weeks later she noticed that her legs were swelling more and she was getting short of breath with activity and has worsened over the last couple of weeks. She sleeps in a recliner at home. She reports she does have a nonproductive cough. She denies fever, chills. She states that she did experience occasional chest pain, last time was last night and she took 1 nitro and it went away. She states that she normally takes 40 ofLasix every day however for the last 3 days her insurance nurse told her to take80, last dose of 80 was today. She states she was diagnosed with a UTI a coupleweeks ago and just finished Bactrim for that. She also has a wound to her left lower extremity, she states it began about 4 years ago she had fallen and gottenroad rash to that leg. About a year and a half ago he started to blister, 1 month ago she noticed huge blisters and they had ruptured. She was sent to Dr. Christian who performed a punch biopsy which was essentially negative. She reports she smoked a little bit when she was a teenager, denies alcohol use. EKG in the ER shows sinus bradycardia with a first-degree block. CBC with an H&Hof 11.7/35.1, WBC 6.4. CMP with a potassium of 3.9, BUN 29, creatinine 1.44. Troponin 6.4. BNP 115. UA with clear, yellow urine, 1+ leukocytes, no bacteriaseen. Chest x-ray shows cardiomegaly with vascular congestion. Patient was medicated with Lasix and levofloxacin. She will be admitted to the [facility] telemetry floor under the care of the hospitalist team for further evaluation and treatment. Today 05/06 Patient has been on Bumex drip. She diuresed about 2.3 L negative so far. Creatinine stable around 1.4. Potassium 3.6. Patient on room air. 05/07. Patient seen and examined. She is laying in bed currently eating breakfast. Remains on room air. Still have significant lower extremity edema. Has slightly bumped from 1.48-1.78. Patient is net -4.8 L over the past 24 hours. She is on Bumex drip. Patient blood sugar has been running slightly lowbefore dinnertime. She stated that she is eating light meals for lunch. 05/08. no new complaint. minimal sob with activity. negative 8.8 L since admission. LE edema is improving. weight trending down. bicarb rising. cr stable at 1.7 Exam Physical Exam Vital Signs: Temp Pulse Resp BP Pulse Ox O2 Del Method 97.4 F L 59 L 18 130/63 94 L Room Air 05/08/23 08:00 05/08/23 11:30 05/08/23 11:30 05/08/23 11:30 05/08/23 11:30 05/08/23 11:30 Const General: comfortable Nutritional Appearance: obese Orientation: alert and awake HEENT Head: normocephalic and atraumatic Eyes General: appearance normal, both eyes and all related structures Pupils: PERRL EOM: EOM intact bilaterally Neck Neck: full ROM and supple Chest Chest palpation & inspection: normal inspection of the chest Resp Auscultation: rales and other ( diminished due to patient body habitus.) Cardio Rate: regular rate Rhythm: regular rhythm Heart Sounds: S1 normal and S2 normal GI Inspection: edema (improving) and obesity General: other (Garrett catheter in place) Skin General: ecchymosis and erythema (Chronic left lower extremity wound secondary to stasis) Neuro General: patient alert, patient awake and patient oriented x3 Extrem General: full ROM and edema (improving leg edema) Psych Appearance: grossly normal Objective Lab Results 05/05/23 05:33 05/08/23 06:05 Meds Allergies and Active Meds Allergies Penicillins Allergy (Severe, Verified 05/04/23 16:40) Anaphylaxis IV Dye Allergy (Severe, Uncoded 05/04/23 16:40) Anaphylaxis Active Meds: Active Medications Generic Name Dose Route Start Last Admin Trade Name Ellie PRN Reason Stop Dose Admin Acetaminophen 1,000 mg 05/04/23 21:01 Acetaminophen 500 Mg Tablet PO 05/03/24 21:00 Q6HR PRN Pain Scale 1 - 3 or fever Hydrocodone Bitart/Acetaminophen 1 tab 05/04/23 21:18 05/07/23 22:53 Hydrocodone/Acetaminophen 10-325 Mg Tablet PO 1 tab QID PRN Administration Pain Aspirin 81 mg 05/05/23 09:00 05/08/23 08:56 Aspirin 81 Mg Tablet. PO 05/04/24 08:59 81 mg DAILY TONY Administration Atorvastatin Calcium 80 mg 05/04/23 22:00 05/07/23 22:07 Atorvastatin 80 Mg Tablet PO 05/03/24 21:59 80 mg HS TONY Administration Bumetanide 1 mg 05/08/23 14:00 Bumetanide 1 Mg/4 Ml Vial IV-PUSH 05/07/24 13:59 Q8HR TONY Clopidogrel Bisulfate 75 mg 05/05/23 09:00 05/08/23 08:57 Clopidogrel Bisulfate 75 Mg Tablet PO 05/04/24 08:59 75 mg DAILY TONY Administration Cyclobenzaprine HCl 10 mg 05/04/23 21:18 05/07/23 22:52 Cyclobenzaprine 10 Mg Tablet PO 05/03/24 21:17 10 mg TID PRN Administration Spasms Dextrose 0 gm 05/04/23 21:07 Dextrose 50% In Water 25 Gm/50 Ml Syringe IV-PUSH 05/03/24 21:06 PRN PRN Hypoglycemia Enoxaparin Sodium 40 mg 05/05/23 10:00 05/08/23 09:43 Enoxaparin 40 Mg/0.4 Ml Syringe SUBCUT 05/04/24 09:59 40 mg DAILY@10 TONY Administration Famotidine 20 mg 05/04/23 22:00 05/07/23 22:07 Famotidine 20 Mg Tablet PO 05/03/24 21:59 20 mg QHS TONY Administration Gabapentin 600 mg 05/04/23 21:30 05/08/23 08:56 Gabapentin 300 Mg Capsule PO 05/03/24 21:29 600 mg BID TONY Administration Glucose 0 gm 05/04/23 21:07 05/06/23 14:47 Dextrose 40% Gel 15 Gm Tube PO 05/03/24 21:06 15 gm PRN PRN Administration Hypoglycemia Hydralazine HCl 10 mg 05/06/23 11:08 Hydralazine 20 Mg/Ml Vial IV-PUSH 05/05/24 11:07 Q4H PRN hypertension Sodium Chloride 1,000 mls @ 20 mls/hr 05/05/23 10:45 05/07/23 09:57 0.9% Sodium Chloride 1,000 Ml IV 05/04/24 10:44 20 mls/hr .Q24H TONY Administration Insulin Aspart 0 units 05/04/23 22:00 05/08/23 08:07 Insulin Aspart 300 Units/3 Ml Insuln.Pen SUBCUT 05/03/24 21:59 Not Given TID.WM.HS TONY Protocol Insulin Aspart 35 units 05/07/23 12:00 05/08/23 08:54 Insulin Aspart 300 Units/3 Ml Insuln.Pen SUBCUT 05/06/24 11:59 35 units TID.WITH.MEALS TONY Administration Insulin Glargine 45 units 05/07/23 09:00 05/08/23 08:54 Insulin Glargine 300 Units/3 Ml Insuln.Pen SUBCUT 05/06/24 08:59 45 units BID TONY Administration Losartan Potassium 25 mg 05/07/23 09:00 05/08/23 08:56 Losartan 25 Mg Tablet PO 05/06/24 08:59 25 mg DAILY TONY Administration Metoprolol Tartrate 12.5 mg 05/07/23 21:00 05/08/23 08:56 Metoprolol Tartrate 12.5 Mg Tablet PO 05/06/24 20:59 12.5 mg BID TONY Administration Oxybutynin Chloride 5 mg 05/05/23 09:00 05/08/23 08:57 Oxybutynin Chloride 5 Mg Tablet PO 05/04/24 08:59 5 mg BID TONY Administration Potassium Chloride 20 meq 05/05/23 09:00 05/08/23 08:57 Potassium Chloride Er 20 Meq Tab.Er.Prt PO 05/04/24 08:59 20 meq DAILY TONY Administration Ranolazine 500 mg 05/05/23 09:00 05/08/23 08:57 Ranolazine 500 Mg Tab.Er.12h PO 05/04/24 08:59 500 mg BID TONY Administration Sertraline HCl 50 mg 05/05/23 09:00 05/08/23 08:56 Sertraline 50 Mg Tablet PO 05/04/24 08:59 50 mg DAILY TONY Administration Sodium Chloride 0 ml 05/04/23 16:40 05/04/23 19:21 Sodium Chloride 0.9 % 10 Ml Syringe IV-PUSH 05/03/24 16:39 6 ml PRN PRN Administration Flush Spironolactone 25 mg 05/05/23 21:00 05/08/23 08:57 Spironolactone 25 Mg Tablet PO 05/04/24 20:59 25 mg BID TONY Administration Vitamin D 100 mcg 05/05/23 10:00 05/08/23 08:56 Cholecalciferol 25 Mcg (1,000 Units) Tablet PO 05/04/24 09:59 100 mcg DAILY TONY Administration Zolpidem Tartrate 5 mg 05/04/23 21:18 05/07/23 22:52 Zolpidem 5 Mg Tablet PO 10/31/23 21:17 5 mg HS PRN Administration Insomnia A&P - Hospitalist Assessment/Plan (1) Acute on chronic diastolic heart failure: (2) Diabetes mellitus: (3) HTN (hypertension): (4) GERD (gastroesophageal reflux disease): Plan Mrs. Jack is a 67-year-old female with a PMH of T2DM, HTN, diastolic heart failure, mild aortic stenosis, heart cath with stent placement x6, HLD that presents to the emergency room today for increased shortness of breath with exertion and increased swelling to legs A/P Acute on chronic diastolic heart failure?failed outpatient increase of Lasix Patient responded to IV Bumex drip and clinically feeling better. net neg 8.8 L. developing some contraction alkalosis now. agree with switching to bolus Lasix 1 mg q 8 hr. Monitor I's and O, daily weight, Nephrology consult appreciated Lisa bandage to bilateral lower extremity during daytime. increase patient activity. anticipate dc home tomorrow. Hypomagnesemia replace per protocol Hypokalemia: Replace per protocol T2DM?fingersticks ACHS. Sugar appears to be dropping before dinner. Decrease prandial insulin to 35 units with each meal. Decrease Lantus to 45 unit twice daily. no further drop in sugar. HTN?losartan-restart at a lower dose 25 mg daily per nephrology.decrease metoprolol 12.5 mg twice daily as patient heart rate has been 50s. Continue amlodipine GERD?resume home meds?famotidine Left lower extremity wound?consult wound nurse for dressing changes. Elevate lower extremity. Apply Ilsa bandage. Morbid obesity lifestyle modification, DVT PPx- SCDs, compression socks, enoxaparin Diet order-1800 ADA, 2 g sodium, heart healthy CODE STATUS-full code as discussed with patient Documented By: David Lane MD 05/08/23 1210 Signed By: <Electronically signed by David Lane MD> 05/08/23 1215 [facility] Work Phone: [phone] 403-302707-09-2023 Progress note Author Ari Fernández [facility] May 07, 2023 2:24pm Note Date/Time May 07, 2023 2:24p m [facility] [address] [place] [address] Nephrology Progress Note Signed Patient: Namrata Jack MR#: [id number] : 1955 Acct:[id number] Age/Sex: 67 / F Adm Date: 3 Loc: Room: [address] [place] [address] Type: ADM IN Attending Dr: David Lane MD Copies to: ~ Date of Service: 05/07/2023 Subjective Subjective Narrative: Mrs. Jack is a 67-year-old female with a PMH of T2DM, HTN, diastolic heart failure, mild aortic stenosis, heart cath with stent placement x6, HLD that presents to the emergency room for increased shortness of breath with exertion and increased swelling to legs. Patient had a heart cath on March 15 for increased shortness of breath, after which she reports slowly worsening bilateral lower extremity edema up into her abdomen with shortness of breath with activity. No new stents were placed after recent cath. Patient reports occasional chest pain for which she takes nitro. Patient has been experiencing ruptured bullae mostly in the LLE. She currently takes Lasix 40 mg once a day with an increase to 80 mg for the past 3 days per recommendation of her nurse. Patient reports having SONYA but does not use a CPAP. She does sleep in a recliner due to shortness of breath when laying flat. Patient had an echo done 1 year ago which showed EF of 60 to 65% with mild to moderate diastolic dysfunction. ER work-up was significant for sinus bradycardia with first-degree block on EKG. Mild anemia 11.7, BUN 29, creatinine 1.44 which is close to baseline, BNP 115. Her UA showed 1+ leuk, no protein. Chest x-ray significant for cardiomegaly andvascular congestion. She was admitted to the floor on telemetry. And nephrology was consulted for 4+ BLE edema. Interval history: Patient has been on bumetanide drip 1 mg/h for the last 48 hours with the spironolactone 25 mg twice a day. Urine output has picked up and has increased over the last 24 hours with more than 6 L yesterday however it is slightly down to 0.66 mL/kg/hr today with improvement of blood pressure Renal function is about the same with creatinine slightly up to 1.78 with creatinine up to 35 mg/dL as expected with diuresis and improvement in the bloodpressure. Edema has improved and the patient feels better. She still has significant edema Patient was evaluated by cardiology and since she had recent cath on February 2023 with no significant coronary artery disease, no intervention is required. Patient has HFpEF Exam Physical Exam Vital Signs: Temp Pulse Resp BP Pulse Ox O2 Del Method 36.3 C L 58 L 17 132/72 93 L Room Air 05/07/23 08:00 05/07/23 08:00 05/07/23 08:00 05/07/23 08:00 05/07/23 08:00 05/07/23 08:00 Narrative: Constitutional: Morbidly obese, laying flat in the bed with respiratory distressand oxygen HEENT: Head with atraumatic, normal cephalic. He has mild pallor with no jaundice or cyanosis. Cardiovascular: RRR, normal S1-S2, no gallop or rub, No JVD Respiratory: Diminished breath sounds with scattered crackles in both lung naylor. Gastrointestinal: Soft, non tender, positive bowel sounds. Difficult to palpateorgans. Extremities: Pitting edema did improve down to 2+. He has wound on the left legafter light trauma. The wound seeping fluid currently in dressing. Skin: No rashes or bruises Musculoskeletal: No joints swellings or inflammation Neurology: Awake, alert, oriented ?3, No focal motor or sensory deficits Psych: Normal mood and affect Objective Intake and Output I&O: Intake & Output 05/04/23 05/05/23 05/06/23 05/07/23 23:59 23:59 23:59 23:59 Intake Total 150 / 150 1740 / 1740 1316 / 1316 1396 / 1396 Output Total 2900 / 2900 6125 / 6125 1075 / 1075 Balance 150 / 150 -1160 / -1160 -4809 / -4809 321 / 321 Weight 153.7 kg 154 kg 150.7 kg 150.9 kg Meds and Allergies Meds: Active Medications Acetaminophen (Acetaminophen 500 Mg Tablet) 1,000 mg PO Q6HR PRN PRN Reason: Pain Scale 1 - 3 or fever Stop: 05/03/24 21:00 Hydrocodone Bitart/Acetaminophen (Hydrocodone/Acetaminophen 10-325 Mg Tablet) 1tab PO QID PRN PRN Reason: Pain Last Admin: 05/06/23 23:10 Dose: 1 tab Amlodipine Besylate (Amlodipine 5 Mg Tablet) 5 mg PO DAILY [facility] Stop: 05/04/24 09:59 Last Admin: 05/07/23 09:30 Dose: 5 mg Aspirin (Aspirin 81 Mg Tablet.Dr) 81 mg PO DAILY [facility] Stop: 05/04/24 08:59 Last Admin: 05/07/23 09:30 Dose: 81 mg Atorvastatin Calcium (Atorvastatin 80 Mg Tablet) 80 mg PO HS [facility] Stop: 05/03/24 21:59 Last Admin: 05/06/23 21:36 Dose: 80 mg Clopidogrel Bisulfate (Clopidogrel Bisulfate 75 Mg Tablet) 75 mg PO DAILY [facility] Stop: 05/04/24 08:59 Last Admin: 05/07/23 09:55 Dose: 75 mg Cyclobenzaprine HCl (Cyclobenzaprine 10 Mg Tablet) 10 mg PO TID PRN PRN Reason: Spasms Stop: 05/03/24 21:17 Last Admin: 05/06/23 23:10 Dose: 10 mg Dextrose (Dextrose 50% In Water 25 Gm/50 Ml Syringe) 0 gm IV-PUSH PRN PRN PRN Reason: Hypoglycemia Stop: 05/03/24 21:06 Enoxaparin Sodium (Enoxaparin 40 Mg/0.4 Ml Syringe) 40 mg SUBCUT DAILY@10 [facility] Stop: 05/04/24 09:59 Last Admin: 05/07/23 09:55 Dose: 40 mg Famotidine (Famotidine 20 Mg Tablet) 20 mg PO QHS [facility] Stop: 05/03/24 21:59 Last Admin: 05/06/23 21:37 Dose: 20 mg Gabapentin (Gabapentin 300 Mg Capsule) 600 mg PO BID [facility] Stop: 05/03/24 21:29 Last Admin: 05/07/23 09:30 Dose: 600 mg Glucose (Dextrose 40% Gel 15 Gm Tube) 0 gm PO PRN PRN PRN Reason: Hypoglycemia Stop: 05/03/24 21:06 Last Admin: 05/06/23 14:47 Dose: 15 gm Hydralazine HCl (Hydralazine 20 Mg/Ml Vial) 10 mg IV-PUSH Q4H PRN PRN Reason: hypertension Stop: 05/05/24 11:07 Bumetanide 24 mg/ IV (Miscellaneous Supplies) 96 mls @ 4 mls/hr IV .Q24H [facility] Stop: 05/04/24 10:14 Last Admin: 05/07/23 09:56 Dose: 1 mg/hr, 4 mls/hr Sodium Chloride (0.9% Sodium Chloride 1,000 Ml) 1,000 mls @ 20 mls/hr IV .Q24H [facility] Stop: 05/04/24 10:44 Last Admin: 05/07/23 09:57 Dose: 20 mls/hr Insulin Aspart (Insulin Aspart 300 Units/3 Ml Insuln.Pen) 0 units SUBCUT TID.WM.HS [facility]; Protocol Stop: 05/03/24 21:59 Last Admin: 05/07/23 12:40 Dose: 3 units Insulin Aspart (Insulin Aspart 300 Units/3 Ml Insuln.Pen) 35 units SUBCUT TID.WITH.MEALS [facility] Stop: 05/06/24 11:59 Last Admin: 05/07/23 12:41 Dose: 35 units Insulin Glargine (Insulin Glargine 300 Units/3 Ml Insuln.Pen) 45 units SUBCUT BID [facility] Stop: 05/06/24 08:59 Last Admin: 05/07/23 09:29 Dose: 45 units Losartan Potassium (Losartan 25 Mg Tablet) 25 mg PO DAILY [facility] Stop: 05/06/24 08:59 Last Admin: 05/07/23 09:30 Dose: 25 mg Metoprolol Tartrate (Metoprolol Tartrate 12.5 Mg Tablet) 12.5 mg PO BID [facility] Stop: 05/06/24 20:59 Oxybutynin Chloride (Oxybutynin Chloride 5 Mg Tablet) 5 mg PO BID [facility] Stop: 05/04/24 08:59 Last Admin: 05/07/23 09:30 Dose: 5 mg Potassium Chloride (Potassium Chloride Er 20 Meq Tab.Er.Prt) 20 meq PO DAILY [facility] Stop: 05/04/24 08:59 Last Admin: 05/07/23 09:55 Dose: 20 meq Ranolazine (Ranolazine 500 Mg Tab.Er.12h) 500 mg PO BID [facility] Stop: 05/04/24 08:59 Last Admin: 05/07/23 09:55 Dose: 500 mg Sertraline HCl (Sertraline 50 Mg Tablet) 50 mg PO DAILY [facility] Stop: 05/04/24 08:59 Last Admin: 05/07/23 09:30 Dose: 50 mg Sodium Chloride (Sodium Chloride 0.9 % 10 Ml Syringe) 0 ml IV-PUSH PRN PRN PRN Reason: Flush Stop: 05/03/24 16:39 Last Admin: 05/04/23 19:21 Dose: 6 ml Spironolactone (Spironolactone 25 Mg Tablet) 25 mg PO BID [facility] Stop: 05/04/24 20:59 Last Admin: 05/07/23 09:55 Dose: 25 mg Vitamin D (Cholecalciferol 25 Mcg (1,000 Units) Tablet) 100 mcg PO DAILY [facility] Stop: 05/04/24 09:59 Last Admin: 05/07/23 09:31 Dose: 100 mcg Zolpidem Tartrate (Zolpidem 5 Mg Tablet) 5 mg PO HS PRN PRN Reason: Insomnia Stop: 10/31/23 21:17 Last Admin: 05/06/23 23:10 Dose: 5 mg Allergies Penicillins Allergy (Severe, Verified 05/04/23 16:40) Anaphylaxis IV Dye Allergy (Severe, Uncoded 05/04/23 16:40) Anaphylaxis Results Labs 05/05/23 05:33 05/07/23 04:37 Labs: 05/07/23 04:37 BUN 35 H Creatinine 1.78 H Radiology Impressions Impressions - last 24 hours: Any impression(s) listed above is documentation that was entered by the reading physician into a diagnostic report(s) for Namrata Jack. I have reviewed the report(s) and am incorporating any findings in the treatment plan of this patient where applicable. A&P - Nephrology Assessment/Plan (1) Acute on chronic diastolic heart failure: Assessment/Problem Details: Right-sided diastolic mild to moderate heart failure with acute exacerbation andsignificant volume retention and lower extremity edema. Echo mostly unchanged from 12/21 and today. Her BNP is 115 which suggested less left ventricular contribution. This does not rule out pulmonary hypertension. Patient takes Lasix 40 mg daily with a recent increase to 80 mg over the last 3 days. Despitethis she has had significant shortness of breath with exertion and persistent volume overload. Kidney function is grossly preserved. Her Lasix has been heldand started on Bumex 1 mg/h IV. The goal is to increase diuresis and continue to monitor kidney function, electrolyte balance, and blood pressure. Cardiologyhas also been consulted. She had recent cardiac cath on February 2023 with minimal CAD. No intervention is required at this point. Patient has HFpEF. Ironicallythe patient had low BNP on admission that has been noticed in obese patient withCHF possibly related to BNP deficiency and those patients are more likely to develop fluid overload. (2) Morbid obesity with BMI of 50.0-59.9, adult: Plan: She is morbidly obese with upper regulation of mineralocorticoid system with excessive salt and water retention. (3) Pickwickian syndrome: Plan: Patient is morbidly obese with history of sleep apnea however he does not use BiPAP. (4) Hypomagnesemia: Assessment/Problem Details: Mild hypomagnesemia of 1.7. Supplementation has been given. Magnesium up to 1.9 g/dL Plan * Continue bumetanide 1 mg/h and spironolactone 25 mg twice a day. Patient has good diuresis that has increased overnight. Creatinine has increased slightly with normal blood pressure which expected. * Will discontinue amlodipine to allow diuresis with a stable blood pressure and renal function. Patient still have significant fluid overload with high risk of readmission. * Continue salt restriction * Monitor daily intake and output, possibly switch to intermittent IV bumetanide within 24 to 48 hours when she achieved adequate diuresis. Patient need to be discharged on higher dose diuretics twice a day. She used to be on furosemide 40 mg once a day which is not enough. * Losartan was decreased to 25 mg daily at the blood pressure improved with diuresis. * Monitor daily renal panel and adjust diuretics as indicated Documented By: Ari Fernández MD 05/07/23 1414 Signed By: <Electronically signed by MD Ari Fernández> 05/07/23 1424 [facility] Work Phone: [phone] 196-351807-09-2023 Progress note Author Jermaine Rogel [facility] May 07, 2023 11:18am Note Date/Time May 07, 2023 11:18 am [facility] [address] [place] [address] Cardiology Progress Note Signed Patient: Namrata Jack MR#: [id number] : 1955 Acct:[id number] Age/Sex: 67 / F Adm Date: 3 Loc: Room: [address] [place] [address] Type: ADM IN Attending Dr: David Lane MD Copies to: ~ Date of Service: 05/07/2023 Subjective Principal diagnosis: Dyspnea, fluid overload Interval history: Patient slept well last night. No dyspnea lying flat in bed. She states her breathing is better and her subjective sense of abdominal distention and leg tightness are also improved. Significant urine output noted. Also rising BUN and creatinine. Exam Physical Exam Vital Signs: Temp Pulse Resp BP Pulse Ox O2 Del Method 97.4 F L 58 L 17 132/72 93 L Room Air 05/07/23 08:00 05/07/23 08:00 05/07/23 08:00 05/07/23 08:00 05/07/23 08:00 05/07/23 08:00 HEENT Head: normal to inspection Ears: hearing grossly normal bilaterally Nose: external nose normal and nares normal Face and sinus: normal facial exam Mouth: oral mucosae normal and tongue normal Eyes Conjunctivae: conjunctivae normal Sclera: sclerae normal Neck Neck: normal visual inspection Carotids: normal carotid upstroke Lymphatic: no lymphadenopathy noted Chest Chest palpation & inspection: normal inspection of the chest Resp Effort & Inspection: normal respiratory effort Auscultation: clear to auscultation bilaterally Cardio Rate: regular rate Rhythm: regular rhythm Heart Sounds: S1 normal and S2 normal GI Inspection: normal to inspection Palpation: soft Skin General: no rashes or lesions noted Neuro General: patient alert, patient awake and patient oriented x3 Cognition: normal cognition Motor: muscle tone normal throughout Sensory Exam: no sensory deficits noted Objective Labs 05/05/23 05:33 05/07/23 04:37 Labs: Laboratory Results - last 24 hr 05/06/23 05/06/23 05/07/23 15:29 20:44 04:37 PHA Creatinine Clear 43.80 Sodium 137 Potassium 3.7 Chloride 96 L Carbon Dioxide 33.8 H Anion Gap 10.9 BUN 35 H Creatinine 1.78 H Est GFR (CKD-EPI) 30.720 Glucose 219 H POC Glucose 60 L* 220 Calcium 8.9 Magnesium 1.9 05/07/23 06:25 PHA Creatinine Clear Sodium Potassium Chloride Carbon Dioxide Anion Gap BUN Creatinine Est GFR (CKD-EPI) Glucose POC Glucose 189 Calcium Magnesium A&P - Cardiology (1) CAD (coronary artery disease): Assessment/Problem Details: Coronary disease appears stable. No diagnostic or therapeutic interventions arerecommended at this time. Code(s): I25.10 - Atherosclerotic heart disease of [place] coronary artery without angina pectoris Status: Acute (2) Right heart failure: Assessment/Problem Details: Patient's edema appears to be multifactorial. We feel it is predominantly rightheart failure and potentially unrecognized and/or underlying renal insufficiencyas well. There may be a small component of diastolic dysfunction that cannot beexcluded, although the minimally elevated BNP speaks against that. Code(s): I50.810 - Right heart failure, unspecified Status: Acute Plan Will defer continued diuretic management to nephrology. At this time we have no further cardiovascular diagnostic and/or therapeutic intervention is recommended. We will sign off. Documented By: Jermaine Rogel MD [id number] Signed By: <Electronically signed by MD Jermaine Rogel> 05/07/238 [facility] Work Phone: 1(115) 392-723907-09-2023 Progress note Author David Lane [facility] May 07, 2023 10:58am Note Date/Time May 07, 2023 10:56 am [facility] [address] [place] [address] Hospitalist Progress Note Signed Patient: Namrata Jack MR#: [id number] : 1955 Acct:[id number] Age/Sex: 67 / F Adm Date: 3 Loc: Room: [address] [place] [address] Type: ADM IN Attending Dr: David Lane MD Copies to: ~ Date of Service: 05/07/2023 Subjective Subjective Narrative: Mrs. Jack is a 67-year-old female with a PMH of T2DM, HTN, diastolic heart failure, mild aortic stenosis, heart cath with stent placement x6, HLD that presents to the emergency room today for increased shortness of breath with exertion and increased swelling to legs. Patient seen and evaluated in the emergency room, resting on the cart quietly, at bedside. She reports that her premium representative Dr. Ortega instructed her to be seen in the emergency room for increased shortness of breath and swelling to her legs. She reports that she had a left heart cath in March 15, 2 weeks later she noticed that her legs were swelling more and she was getting short of breath with activity and has worsened over the last couple of weeks. She sleeps in a recliner at home. She reports she does have a nonproductive cough. She denies fever, chills. She states that she did experience occasional chest pain, last time was last night and she took 1 nitro and it went away. She states that she normally takes 40 ofLasix every day however for the last 3 days her insurance nurse told her to take80, last dose of 80 was today. She states she was diagnosed with a UTI a coupleweeks ago and just finished Bactrim for that. She also has a wound to her left lower extremity, she states it began about 4 years ago she had fallen and gottenroad rash to that leg. About a year and a half ago he started to blister, 1 month ago she noticed huge blisters and they had ruptured. She was sent to Dr. Christian who performed a punch biopsy which was essentially negative. She reports she smoked a little bit when she was a teenager, denies alcohol use. EKG in the ER shows sinus bradycardia with a first-degree block. CBC with an H&Hof 11.7/35.1, WBC 6.4. CMP with a potassium of 3.9, BUN 29, creatinine 1.44. Troponin 6.4. BNP 115. UA with clear, yellow urine, 1+ leukocytes, no bacteriaseen. Chest x-ray shows cardiomegaly with vascular congestion. Patient was medicated with Lasix and levofloxacin. She will be admitted to the [facility] telemetry floor under the care of the hospitalist team for further evaluation and treatment. Today 05/06 Patient has been on Bumex drip. She diuresed about 2.3 L negative so far. Creatinine stable around 1.4. Potassium 3.6. Patient on room air. 05/07. Patient seen and examined. She is laying in bed currently eating breakfast. Remains on room air. Still have significant lower extremity edema. Has slightly bumped from 1.48-1.78. Patient is net -4.8 L over the past 24 hours. She is on Bumex drip. Patient blood sugar has been running slightly lowbefore dinnertime. She stated that she is eating light meals for lunch. Exam Physical Exam Vital Signs: Temp Pulse Resp BP Pulse Ox O2 Del Method 97.4 F L 58 L 17 132/72 93 L Room Air 05/07/23 08:00 05/07/23 08:00 05/07/23 08:00 05/07/23 08:00 05/07/23 08:00 05/07/23 08:00 Const General: comfortable Nutritional Appearance: obese Orientation: alert and awake HEENT Head: normocephalic and atraumatic Eyes General: appearance normal, both eyes and all related structures Pupils: PERRL EOM: EOM intact bilaterally Neck Neck: full ROM and supple Chest Chest palpation & inspection: normal inspection of the chest Resp Auscultation: rales and other ( diminished due to patient body habitus.) Cardio Rate: regular rate Rhythm: regular rhythm Heart Sounds: S1 normal and S2 normal GI Inspection: edema and obesity General: other (Garrett catheter in place) Skin General: ecchymosis and erythema (Chronic left lower extremity wound secondary to stasis) Neuro General: patient alert, patient awake and patient oriented x3 Extrem General: full ROM Psych Appearance: grossly normal Objective Lab Results 05/05/23 05:33 05/07/23 04:37 Meds Allergies and Active Meds Allergies Penicillins Allergy (Severe, Verified 05/04/23 16:40) Anaphylaxis IV Dye Allergy (Severe, Uncoded 05/04/23 16:40) Anaphylaxis Active Meds: Active Medications Generic Name Dose Route Start Last Admin Trade Name Ellie PRN Reason Stop Dose Admin Acetaminophen 1,000 mg 05/04/23 21:01 Acetaminophen 500 Mg Tablet PO 05/03/24 21:00 Q6HR PRN Pain Scale 1 - 3 or fever Hydrocodone Bitart/Acetaminophen 1 tab 05/04/23 21:18 05/06/23 23:10 Hydrocodone/Acetaminophen 10-325 Mg Tablet PO 1 tab QID PRN Administration Pain Amlodipine Besylate 5 mg 05/05/23 10:00 05/07/23 09:30 Amlodipine 5 Mg Tablet PO 05/04/24 09:59 5 mg DAILY TONY Administration Aspirin 81 mg 05/05/23 09:00 05/07/23 09:30 Aspirin 81 Mg Tablet. PO 05/04/24 08:59 81 mg DAILY TONY Administration Atorvastatin Calcium 80 mg 05/04/23 22:00 05/06/23 21:36 Atorvastatin 80 Mg Tablet PO 05/03/24 21:59 80 mg HS TONY Administration Clopidogrel Bisulfate 75 mg 05/05/23 09:00 05/07/23 09:55 Clopidogrel Bisulfate 75 Mg Tablet PO 05/04/24 08:59 75 mg DAILY TONY Administration Cyclobenzaprine HCl 10 mg 05/04/23 21:18 05/06/23 23:10 Cyclobenzaprine 10 Mg Tablet PO 05/03/24 21:17 10 mg TID PRN Administration Spasms Dextrose 0 gm 05/04/23 21:07 Dextrose 50% In Water 25 Gm/50 Ml Syringe IV-PUSH 05/03/24 21:06 PRN PRN Hypoglycemia Enoxaparin Sodium 40 mg 05/05/23 10:00 05/07/23 09:55 Enoxaparin 40 Mg/0.4 Ml Syringe SUBCUT 05/04/24 09:59 40 mg DAILY@10 TONY Administration Famotidine 20 mg 05/04/23 22:00 05/06/23 21:37 Famotidine 20 Mg Tablet PO 05/03/24 21:59 20 mg QHS TONY Administration Gabapentin 600 mg 05/04/23 21:30 05/07/23 09:30 Gabapentin 300 Mg Capsule PO 05/03/24 21:29 600 mg BID TONY Administration Glucose 0 gm 05/04/23 21:07 05/06/23 14:47 Dextrose 40% Gel 15 Gm Tube PO 05/03/24 21:06 15 gm PRN PRN Administration Hypoglycemia Hydralazine HCl 10 mg 05/06/23 11:08 Hydralazine 20 Mg/Ml Vial IV-PUSH 05/05/24 11:07 Q4H PRN hypertension Bumetanide 24 mg/ IV 96 mls @ 4 mls/hr 05/05/23 10:15 05/07/23 09:56 Miscellaneous Supplies IV 05/04/24 10:14 1 mg/hr .Q24H TONY 4 mls/hr Administration 1 MG/HR Sodium Chloride 1,000 mls @ 20 mls/hr 05/05/23 10:45 05/07/23 09:57 0.9% Sodium Chloride 1,000 Ml IV 05/04/24 10:44 20 mls/hr .Q24H TONY Administration Insulin Aspart 0 units 05/04/23 22:00 05/07/23 09:31 Insulin Aspart 300 Units/3 Ml Insuln.Pen SUBCUT 05/03/24 21:59 3 units TID.WM.HS TONY Administration Protocol Insulin Aspart 35 units 05/07/23 12:00 Insulin Aspart 300 Units/3 Ml Insuln.Pen SUBCUT 05/06/24 11:59 TID.WITH.MEALS TONY Insulin Glargine 45 units 05/07/23 09:00 05/07/23 09:29 Insulin Glargine 300 Units/3 Ml Insuln.Pen SUBCUT 05/06/24 08:59 45 units BID TONY Administration Losartan Potassium 25 mg 05/07/23 09:00 05/07/23 09:30 Losartan 25 Mg Tablet PO 05/06/24 08:59 25 mg DAILY TONY Administration Metoprolol Tartrate 12.5 mg 05/07/23 21:00 Metoprolol Tartrate 12.5 Mg Tablet PO 05/06/24 20:59 BID TONY Oxybutynin Chloride 5 mg 05/05/23 09:00 05/07/23 09:30 Oxybutynin Chloride 5 Mg Tablet PO 05/04/24 08:59 5 mg BID TONY Administration Potassium Chloride 20 meq 05/05/23 09:00 05/07/23 09:55 Potassium Chloride Er 20 Meq Tab.Er.Prt PO 05/04/24 08:59 20 meq DAILY TONY Administration Ranolazine 500 mg 05/05/23 09:00 05/07/23 09:55 Ranolazine 500 Mg Tab.Er.12h PO 05/04/24 08:59 500 mg BID TONY Administration Sertraline HCl 50 mg 05/05/23 09:00 05/07/23 09:30 Sertraline 50 Mg Tablet PO 05/04/24 08:59 50 mg DAILY TONY Administration Sodium Chloride 0 ml 05/04/23 16:40 05/04/23 19:21 Sodium Chloride 0.9 % 10 Ml Syringe IV-PUSH 05/03/24 16:39 6 ml PRN PRN Administration Flush Spironolactone 25 mg 05/05/23 21:00 05/07/23 09:55 Spironolactone 25 Mg Tablet PO 05/04/24 20:59 25 mg BID TONY Administration Vitamin D 100 mcg 05/05/23 10:00 05/07/23 09:31 Cholecalciferol 25 Mcg (1,000 Units) Tablet PO 05/04/24 09:59 100 mcg DAILY TONY Administration Zolpidem Tartrate 5 mg 05/04/23 21:18 05/06/23 23:10 Zolpidem 5 Mg Tablet PO 10/31/23 21:17 5 mg HS PRN Administration Insomnia A&P - Hospitalist Assessment/Plan (1) Acute on chronic diastolic heart failure: (2) Diabetes mellitus: (3) HTN (hypertension): (4) GERD (gastroesophageal reflux disease): Plan Mrs. Jack is a 67-year-old female with a PMH of T2DM, HTN, diastolic heart failure, mild aortic stenosis, heart cath with stent placement x6, HLD that presents to the emergency room today for increased shortness of breath with exertion and increased swelling to legs A/P Acute on chronic diastolic heart failure?failed outpatient increase of Lasix Patient responded to IV Bumex drip. Monitor renal function closely as creatinine is slowly rising but still acceptable. Discussed with nephrology. Avoid any hypotension's. Monitor I's and O, daily weight, Nephrology consult appreciated Lisa bandage to bilateral lower extremity during daytime. Hypomagnesemia replace per protocol Hypokalemia: Replace per protocol T2DM?fingersticks ACHS. Sugar appears to be dropping before dinner. Decrease prandial insulin to 35 units with each meal. Decrease Lantus to 45 unit twice daily. Continue sliding scale insulin. HTN?losartan-restart at a lower dose 25 mg daily per nephrology.decrease metoprolol 12.5 mg twice daily as patient heart rate has been 50s. Continue amlodipine GERD?resume home meds?famotidine Left lower extremity wound?consult wound nurse for dressing changes. Elevate lower extremity. Apply Lisa bandage. Morbid obesity lifestyle modification, DVT PPx- SCDs, compression socks, enoxaparin Diet order-1800 ADA, 2 g sodium, heart healthy CODE STATUS-full code as discussed with patient Documented By: David Lane MD 05/07/23 1050 Signed By: <Electronically signed by David Lane MD> 05/07/23 1058 [facility] Work Phone: [phone]) 185-284407-08-2023 Progress note Author Jermaine Rogel [facility] May 06, 2023 3:51pm Note Date/Time May 06, 2023 12:54 pm [facility] [address] [place] [address] Cardiology Progress Note Signed Patient: Namrata Jack MR#: [id number] : 1955 Acct:[id number] Age/Sex: 67 / F Adm Date: 3 Loc: Room: [address] [place] [address] Type: ADM IN Attending Dr: David Lane MD Copies to: ~ Date of Service: 05/06/2023 Subjective Principal diagnosis: Dyspnea, fluid overload Interval history: Patient appears to be responding favorably to parenteral bumetanide. Nephrologyalso feels that the addition of aldosterone blockade would be beneficial based upon her physiology. A brisk diuresis has been noted. Patient has no symptoms or manifestations of myocardial ischemia. She has normal left ventricular systolic function and minimal elevation in her pediatricpeptide. Hence we feel most of her fluid overload and her manifestations of such fluid overload are on the basis of obstructive sleep apnea and pulmonary hypertension, and the physiology associated with obesity. Exam Physical Exam Vital Signs: Temp Pulse Resp BP Pulse Ox O2 Del Method 97.9 F 50 L 18 177/83 H 93 L Room Air 07/08/23 04:49 05/06/23 04:49 05/06/23 04:49 05/06/23 04:49 05/06/23 04:49 05/06/23 08:00 HEENT Head: normal to inspection Ears: hearing grossly normal bilaterally Nose: external nose normal and nares normal Face and sinus: normal facial exam Mouth: oral mucosae normal and tongue normal Eyes Conjunctivae: conjunctivae normal Sclera: sclerae normal Neck Neck: normal visual inspection Carotids: normal carotid upstroke Lymphatic: no lymphadenopathy noted Chest Chest palpation & inspection: normal inspection of the chest Resp Effort & Inspection: normal respiratory effort Auscultation: clear to auscultation bilaterally Cardio Rate: regular rate Rhythm: regular rhythm Heart Sounds: S1 normal and S2 normal GI Inspection: normal to inspection Palpation: soft Skin General: no rashes or lesions noted Neuro General: patient alert, patient awake and patient oriented x3 Cognition: normal cognition Motor: muscle tone normal throughout Sensory Exam: no sensory deficits noted Objective Labs 05/05/23 05:33 05/06/23 07:25 Labs: Laboratory Results - last 24 hr 05/05/23 05/05/23 05/05/23 16:31 17:01 20:44 PHA Creatinine Clear Sodium Potassium Chloride Carbon Dioxide Anion Gap BUN Creatinine Est GFR (CKD-EPI) Glucose POC Glucose 64 76 220 Calcium 05/06/23 05/06/23 06:22 07:25 PHA Creatinine Clear 52.68 Sodium 139 Potassium 3.6 Chloride 99 Carbon Dioxide 33.2 H Anion Gap 10.4 BUN 29 H Creatinine 1.48 H Est GFR (CKD-EPI) 38.336 Glucose 141 H POC Glucose 137 Calcium 9.2 A&P - Cardiology (1) CAD (coronary artery disease): Assessment/Problem Details: Patient has no overt manifestations of myocardial ischemia. She is also recently undergone an angiographic evaluation and there were no findings of disease in need of intervention. Code(s): I25.10 - Atherosclerotic heart disease of [place] coronary artery without angina pectoris Status: Acute (2) Acute on chronic diastolic heart failure: Assessment/Problem Details: Acute on chronic diastolic heart failure cannot be excluded, the patient did have elevated left ventricular end-diastolic pressure at the time of cardiac catheterization. The natural peptide, though, is minimally elevated. Code(s): I50.33 - Acute on chronic diastolic (congestive) heart failure Status: Acute (3) Pickwickian syndrome: Assessment/Problem Details: Pickwickian syndrome predisposes patient to sleep apnea and attendant pulmonary hypertension and the possibility of right heart failure. Most of her clinical findings are consistent with right heart failure. Code(s): E66.2 - Morbid (severe) obesity with alveolar hypoventilation Status: Acute (4) Right heart failure: Assessment/Problem Details: Manifesting itself by ascites and lower extremity edema. Code(s): I50.810 - Right heart failure, unspecified Status: Acute Plan Agree with diuretic regimen implemented by nephrology. No treatment for coronary disease necessary. Patient does not require afterload reduction because there is not a systolic element of heart failure. Documented By: Jermaine Rogel MD [id number] Signed By: <Electronically signed by MD Jermaine Rogel> 05/06/23 155 [facility] Work Phone: [phone]) 169-752007-08-2023 Progress note Author Ari Fernández [facility] May 06, 2023 11:34am Note Date/Time May 06, 2023 11:34 am [facility] [address] [place] [address] Nephrology Progress Note Signed Patient: Namrata Jack MR#: [id number] : 1955 Acct:[id number] Age/Sex: 67 / F Adm Date: 3 Loc: Room: [address] [place] [address] Type: ADM IN Attending Dr: David Lane MD Copies to: ~ Date of Service: 05/06/2023 Subjective Subjective Narrative: Mrs. Jack is a 67-year-old female with a PMH of T2DM, HTN, diastolic heart failure, mild aortic stenosis, heart cath with stent placement x6, HLD that presents to the emergency room for increased shortness of breath with exertion and increased swelling to legs. Patient had a heart cath on March 15 for increased shortness of breath, after which she reports slowly worsening bilateral lower extremity edema up into her abdomen with shortness of breath with activity. No new stents were placed after recent cath. Patient reports occasional chest pain for which she takes nitro. Patient has been experiencing ruptured bullae mostly in the LLE. She currently takes Lasix 40 mg once a day with an increase to 80 mg for the past 3 days per recommendation of her nurse. Patient reports having SONYA but does not use a CPAP. She does sleep in a recliner due to shortness of breath when laying flat. Patient had an echo done 1 year ago which showed EF of 60 to 65% with mild to moderate diastolic dysfunction. ER work-up was significant for sinus bradycardia with first-degree block on EKG. Mild anemia 11.7, BUN 29, creatinine 1.44 which is close to baseline, BNP 115. Her UA showed 1+ leuk, no protein. Chest x-ray significant for cardiomegaly andvascular congestion. She was admitted to the floor on telemetry. And nephrology was consulted for 4+ BLE edema. Interval history: Patient was started on bumetanide drip 1 mg/h and spironolactone 25 mg twice a day was added for massive edema and weight gain. She has no significant proteinuria. She has a Garrett catheter. Urine output has increased overnight currently -2300 mL. Blood pressure stable 140s to 150s systolic. Potassium supplement. Potassium 3.6 mmol/L, currently on potassium 20 mEq p.o. daily. Patient was evaluated by cardiology and since she had recent cath on February 2023 with no significant coronary artery disease, no intervention is required. Patient has HFpEF Exam Physical Exam Vital Signs: Temp Pulse Resp BP Pulse Ox O2 Del Method 36.6 C 50 L 18 177/83 H 93 L Room Air 05/06/23 04:49 05/06/23 04:49 05/06/23 04:49 05/06/23 04:49 05/06/23 04:49 05/06/23 08:00 Narrative: Constitutional: Morbidly obese, laying flat in the bed with respiratory distressand oxygen HEENT: Head with atraumatic, normal cephalic. He has mild pallor with no jaundice or cyanosis. Cardiovascular: RRR, normal S1-S2, no gallop or rub, No JVD Respiratory: Diminished breath sounds with scattered crackles in both lung naylor. Gastrointestinal: Soft, non tender, positive bowel sounds. Difficult to palpateorgans. Extremities: 4+ pitting edema. He has wound on the left leg after light trauma. The wound seeping fluid currently in dressing. Skin: No rashes or bruises Musculoskeletal: No joints swellings or inflammation Neurology: Awake, alert, oriented ?3, No focal motor or sensory deficits Psych: Normal mood and affect Objective Intake and Output I&O: Intake & Output 05/03/23 05/04/23 05/05/23 05/06/23 23:59 23:59 23:59 23:59 Intake Total 150 / 150 1740 / 1740 96 / 96 Output Total 2900 / 2900 2400 / 2400 Balance 150 / 150 -1160 / -1160 -2304 / -2304 Weight 153.7 kg 154 kg 150.7 kg Meds and Allergies Meds: Active Medications Acetaminophen (Acetaminophen 500 Mg Tablet) 1,000 mg PO Q6HR PRN PRN Reason: Pain Scale 1 - 3 or fever Stop: 05/03/24 21:00 Hydrocodone Bitart/Acetaminophen (Hydrocodone/Acetaminophen 10-325 Mg Tablet) 1tab PO QID PRN PRN Reason: Pain Last Admin: 05/05/23 22:58 Dose: 1 tab Amlodipine Besylate (Amlodipine 5 Mg Tablet) 5 mg PO DAILY [facility] Stop: 05/04/24 09:59 Last Admin: 05/06/23 10:04 Dose: 5 mg Aspirin (Aspirin 81 Mg Tablet.Dr) 81 mg PO DAILY [facility] Stop: 05/04/24 08:59 Last Admin: 05/06/23 10:03 Dose: 81 mg Atorvastatin Calcium (Atorvastatin 80 Mg Tablet) 80 mg PO HS [facility] Stop: 05/03/24 21:59 Last Admin: 05/05/23 21:10 Dose: 80 mg Clopidogrel Bisulfate (Clopidogrel Bisulfate 75 Mg Tablet) 75 mg PO DAILY [facility] Stop: 05/04/24 08:59 Last Admin: 05/06/23 10:03 Dose: 75 mg Cyclobenzaprine HCl (Cyclobenzaprine 10 Mg Tablet) 10 mg PO TID PRN PRN Reason: Spasms Stop: 05/03/24 21:17 Last Admin: 05/05/23 22:59 Dose: 10 mg Dextrose (Dextrose 50% In Water 25 Gm/50 Ml Syringe) 0 gm IV-PUSH PRN PRN PRN Reason: Hypoglycemia Stop: 05/03/24 21:06 Enoxaparin Sodium (Enoxaparin 40 Mg/0.4 Ml Syringe) 40 mg SUBCUT DAILY@10 [facility] Stop: 05/04/24 09:59 Last Admin: 05/06/23 10:05 Dose: 40 mg Famotidine (Famotidine 20 Mg Tablet) 20 mg PO QHS [facility] Stop: 05/03/24 21:59 Last Admin: 05/05/23 21:10 Dose: 20 mg Gabapentin (Gabapentin 300 Mg Capsule) 600 mg PO BID [facility] Stop: 05/03/24 21:29 Last Admin: 05/06/23 10:01 Dose: 600 mg Glucose (Dextrose 40% Gel 15 Gm Tube) 0 gm PO PRN PRN PRN Reason: Hypoglycemia Stop: 05/03/24 21:06 Hydralazine HCl (Hydralazine 20 Mg/Ml Vial) 10 mg IV-PUSH Q4H PRN PRN Reason: hypertension Stop: 05/05/24 11:07 Bumetanide 24 mg/ IV (Miscellaneous Supplies) 96 mls @ 4 mls/hr IV .Q24H [facility] Stop: 05/04/24 10:14 Last Admin: 05/06/23 05:23 Dose: 1 mg/hr, 4 mls/hr Sodium Chloride (0.9% Sodium Chloride 1,000 Ml) 1,000 mls @ 20 mls/hr IV .Q24H [facility] Stop: 05/04/24 10:44 Last Admin: 05/05/23 11:07 Dose: 20 mls/hr Insulin Aspart (Insulin Aspart 300 Units/3 Ml Insuln.Pen) 0 units SUBCUT TID.WM.HS [facility]; Protocol Stop: 05/03/24 21:59 Last Admin: 05/06/23 10:13 Dose: Not Given Insulin Aspart (Insulin Aspart 300 Units/3 Ml Insuln.Pen) 40 units SUBCUT TID.WITH.MEALS [facility] Stop: 05/04/24 07:59 Last Admin: 05/06/23 10:12 Dose: 40 units Insulin Glargine (Insulin Glargine 300 Units/3 Ml Insuln.Pen) 50 units SUBCUT BID [facility] Stop: 05/04/24 08:59 Last Admin: 05/06/23 10:05 Dose: 50 units Metoprolol Tartrate (Metoprolol Tartrate 25 Mg Tablet) 25 mg PO BID [facility] Stop: 05/04/24 08:59 Last Admin: 05/06/23 10:04 Dose: 25 mg Oxybutynin Chloride (Oxybutynin Chloride 5 Mg Tablet) 5 mg PO BID [facility] Stop: 05/04/24 08:59 Last Admin: 05/06/23 10:04 Dose: 5 mg Potassium Chloride (Potassium Chloride Er 20 Meq Tab.Er.Prt) 20 meq PO DAILY [facility] Stop: 05/04/24 08:59 Last Admin: 05/06/23 10:02 Dose: 20 meq Ranolazine (Ranolazine 500 Mg Tab.Er.12h) 500 mg PO BID [facility] Stop: 05/04/24 08:59 Last Admin: 05/05/23 21:10 Dose: 500 mg Sertraline HCl (Sertraline 50 Mg Tablet) 50 mg PO DAILY [facility] Stop: 05/04/24 08:59 Last Admin: 05/06/23 10:04 Dose: 50 mg Sodium Chloride (Sodium Chloride 0.9 % 10 Ml Syringe) 0 ml IV-PUSH PRN PRN PRN Reason: Flush Stop: 05/03/24 16:39 Last Admin: 05/04/23 19:21 Dose: 6 ml Spironolactone (Spironolactone 25 Mg Tablet) 25 mg PO BID [facility] Stop: 05/04/24 20:59 Last Admin: 05/06/23 10:03 Dose: 25 mg Vitamin D (Cholecalciferol 25 Mcg (1,000 Units) Tablet) 100 mcg PO DAILY [facility] Stop: 05/04/24 09:59 Last Admin: 05/06/23 10:00 Dose: 100 mcg Zolpidem Tartrate (Zolpidem 5 Mg Tablet) 5 mg PO HS PRN PRN Reason: Insomnia Stop: 10/31/23 21:17 Last Admin: 05/05/23 22:58 Dose: 5 mg Allergies Penicillins Allergy (Severe, Verified 05/04/23 16:40) Anaphylaxis IV Dye Allergy (Severe, Uncoded 05/04/23 16:40) Anaphylaxis Results Labs 05/05/23 05:33 05/06/23 07:25 Labs: 05/06/23 07:25 BUN 29 H Creatinine 1.48 H Radiology Impressions Impressions - last 24 hours: Any impression(s) listed above is documentation that was entered by the reading physician into a diagnostic report(s) for Namrata Jack. I have reviewed the report(s) and am incorporating any findings in the treatment plan of this patient where applicable. A&P - Nephrology Assessment/Plan (1) Acute on chronic diastolic heart failure: Assessment/Problem Details: Right-sided diastolic mild to moderate heart failure with acute exacerbation andsignificant volume retention and lower extremity edema. Echo mostly unchanged from 12/21 and today. Her BNP is 115 which suggested less left ventricular contribution. This does not rule out pulmonary hypertension. Patient takes Lasix 40 mg daily with a recent increase to 80 mg over the last 3 days. Despitethis she has had significant shortness of breath with exertion and persistent volume overload. Kidney function is grossly preserved. Her Lasix has been heldand started on Bumex 1 mg/h IV. The goal is to increase diuresis and continue to monitor kidney function, electrolyte balance, and blood pressure. Cardiologyhas also been consulted. She had recent cardiac cath on February 2023 with minimal CAD. No intervention is required at this point. Patient has HFpEF (2) Morbid obesity with BMI of 50.0-59.9, adult: Plan: She is morbidly obese with upper regulation of mineralocorticoid system with excessive salt and water retention. (3) Pickwickian syndrome: Plan: Patient is morbidly obese with history of sleep apnea however he does not use BiPAP. (4) Hypomagnesemia: Assessment/Problem Details: Mild hypomagnesemia of 1.7. Supplementation has been given. Plan * Continue bumetanide 1 mg/h and spironolactone 25 mg twice a day. Patient has good diuresis that has increased overnight. Creatinine at baseline 1.48 mg/dL. Potassium stable on potassium supplement. * Continue salt restriction * Monitor daily intake and output, will add low-dose metolazone if patient is not able to achieve adequate diuresis. Patient has adequate blood pressure for diuresis. * Patient had IV magnesium yesterday. We will recheck magnesium tomorrow and provide additional doses as needed. * Continue losartan 100 mg daily. He may need to decrease the dose if blood pressure drops with diuresis. * Monitor daily intake, output and renal panel to adjust diuretics as indicated Documented By: Ari Fernández MD 05/06/23 1128 Signed By: <Electronically signed by MD Ari Fernández> 05/06/23 8899 [facility] Work Phone: [phone]) 267-296707-08-2023 Progress note Author David Lane [facility] May 06, 2023 11:06am Note Date/Time May 06, 2023 11:01 am [facility] [address] [place] [address] Hospitalist Progress Note Signed Patient: Namrata Jack MR#: [id number] : 1955 Acct:[id number] Age/Sex: 67 / F Adm Date: 3 Loc: Room: [address] [place] [address] Type: ADM IN Attending Dr: David Lane MD Copies to: ~ Date of Service: 05/06/2023 Subjective Subjective Narrative: Mrs. Jack is a 67-year-old female with a PMH of T2DM, HTN, diastolic heart failure, mild aortic stenosis, heart cath with stent placement x6, HLD that presents to the emergency room today for increased shortness of breath with exertion and increased swelling to legs. Patient seen and evaluated in the emergency room, resting on the cart quietly, at bedside. She reports that her premium representative Dr. Ortega instructed her to be seen in the emergency room for increased shortness of breath and swelling to her legs. She reports that she had a left heart cath in March 15, 2 weeks later she noticed that her legs were swelling more and she was getting short of breath with activity and has worsened over the last couple of weeks. She sleeps in a recliner at home. She reports she does have a nonproductive cough. She denies fever, chills. She states that she did experience occasional chest pain, last time was last night and she took 1 nitro and it went away. She states that she normally takes 40 ofLasix every day however for the last 3 days her insurance nurse told her to take80, last dose of 80 was today. She states she was diagnosed with a UTI a coupleweeks ago and just finished Bactrim for that. She also has a wound to her left lower extremity, she states it began about 4 years ago she had fallen and gottenroad rash to that leg. About a year and a half ago he started to blister, 1 month ago she noticed huge blisters and they had ruptured. She was sent to Dr. Christian who performed a punch biopsy which was essentially negative. She reports she smoked a little bit when she was a teenager, denies alcohol use. EKG in the ER shows sinus bradycardia with a first-degree block. CBC with an H&Hof 11.7/35.1, WBC 6.4. CMP with a potassium of 3.9, BUN 29, creatinine 1.44. Troponin 6.4. BNP 115. UA with clear, yellow urine, 1+ leukocytes, no bacteriaseen. Chest x-ray shows cardiomegaly with vascular congestion. Patient was medicated with Lasix and levofloxacin. She will be admitted to the [facility] telemetry floor under the care of the hospitalist team for further evaluation and treatment. Today 05/06 Patient has been on Bumex drip. She diuresed about 2.3 L negative so far. Creatinine stable around 1.4. Potassium 3.6. Patient on room air. Exam Physical Exam Vital Signs: Temp Pulse Resp BP Pulse Ox O2 Del Method 97.9 F 50 L 18 177/83 H 93 L Room Air 05/06/23 04:49 05/06/23 04:49 05/06/23 04:49 05/06/23 04:49 05/06/23 04:49 05/06/23 04:49 Const General: comfortable Nutritional Appearance: obese Orientation: alert and awake HEENT Head: normocephalic and atraumatic Eyes General: appearance normal, both eyes and all related structures Pupils: PERRL EOM: EOM intact bilaterally Neck Neck: full ROM and supple Chest Chest palpation & inspection: normal inspection of the chest Resp Auscultation: rales and other ( diminished due to patient body habitus.) Cardio Rate: regular rate Rhythm: regular rhythm Heart Sounds: S1 normal and S2 normal GI Inspection: edema and obesity General: other (Garrett catheter in place) Skin General: ecchymosis and erythema (Chronic left lower extremity wound secondary to stasis) Neuro General: patient alert, patient awake and patient oriented x3 Extrem General: full ROM Psych Appearance: grossly normal Objective Lab Results 05/05/23 05:33 05/06/23 07:25 Meds Allergies and Active Meds Allergies Penicillins Allergy (Severe, Verified 05/04/23 16:40) Anaphylaxis IV Dye Allergy (Severe, Uncoded 05/04/23 16:40) Anaphylaxis Active Meds: Active Medications Generic Name Dose Route Start Last Admin Trade Name Ellie PRN Reason Stop Dose Admin Acetaminophen 1,000 mg 05/04/23 21:01 Acetaminophen 500 Mg Tablet PO 05/03/24 21:00 Q6HR PRN Pain Scale 1 - 3 or fever Hydrocodone Bitart/Acetaminophen 1 tab 05/04/23 21:18 05/05/23 22:58 Hydrocodone/Acetaminophen 10-325 Mg Tablet PO 1 tab QID PRN Administration Pain Amlodipine Besylate 5 mg 05/05/23 10:00 05/06/23 10:04 Amlodipine 5 Mg Tablet PO 05/04/24 09:59 5 mg DAILY TONY Administration Aspirin 81 mg 05/05/23 09:00 05/06/23 10:03 Aspirin 81 Mg Tablet.Dr PO 05/04/24 08:59 81 mg DAILY TONY Administration Atorvastatin Calcium 80 mg 05/04/23 22:00 05/05/23 21:10 Atorvastatin 80 Mg Tablet PO 05/03/24 21:59 80 mg HS TONY Administration Clopidogrel Bisulfate 75 mg 05/05/23 09:00 05/06/23 10:03 Clopidogrel Bisulfate 75 Mg Tablet PO 05/04/24 08:59 75 mg DAILY TONY Administration Cyclobenzaprine HCl 10 mg 05/04/23 21:18 05/05/23 22:59 Cyclobenzaprine 10 Mg Tablet PO 05/03/24 21:17 10 mg TID PRN Administration Spasms Dextrose 0 gm 05/04/23 21:07 Dextrose 50% In Water 25 Gm/50 Ml Syringe IV-PUSH 05/03/24 21:06 PRN PRN Hypoglycemia Enoxaparin Sodium 40 mg 05/05/23 10:00 05/06/23 10:05 Enoxaparin 40 Mg/0.4 Ml Syringe SUBCUT 05/04/24 09:59 40 mg DAILY@10 TONY Administration Famotidine 20 mg 05/04/23 22:00 05/05/23 21:10 Famotidine 20 Mg Tablet PO 05/03/24 21:59 20 mg QHS TONY Administration Gabapentin 600 mg 05/04/23 21:30 05/06/23 10:01 Gabapentin 300 Mg Capsule PO 05/03/24 21:29 600 mg BID TONY Administration Glucose 0 gm 05/04/23 21:07 Dextrose 40% Gel 15 Gm Tube PO 05/03/24 21:06 PRN PRN Hypoglycemia Bumetanide 24 mg/ IV 96 mls @ 4 mls/hr 05/05/23 10:15 05/06/23 05:23 Miscellaneous Supplies IV 05/04/24 10:14 1 mg/hr .Q24H TONY 4 mls/hr Administration 1 MG/HR Sodium Chloride 1,000 mls @ 20 mls/hr 05/05/23 10:45 05/05/23 11:07 0.9% Sodium Chloride 1,000 Ml IV 05/04/24 10:44 20 mls/hr .Q24H TONY Administration Insulin Aspart 0 units 05/04/23 22:00 05/06/23 10:13 Insulin Aspart 300 Units/3 Ml Insuln.Pen SUBCUT 05/03/24 21:59 Not Given TID.WM.HS TONY Protocol Insulin Aspart 40 units 05/05/23 08:00 05/06/23 10:12 Insulin Aspart 300 Units/3 Ml Insuln.Pen SUBCUT 05/04/24 07:59 40 units TID.WITH.MEALS TONY Administration Insulin Glargine 50 units 05/05/23 09:00 05/06/23 10:05 Insulin Glargine 300 Units/3 Ml Insuln.Pen SUBCUT 05/04/24 08:59 50 units BID TONY Administration Losartan Potassium 100 mg 05/05/23 09:00 05/06/23 10:05 Losartan 50 Mg Tablet PO 05/04/24 08:59 100 mg DAILY TONY Administration Metoprolol Tartrate 25 mg 05/05/23 09:00 05/06/23 10:04 Metoprolol Tartrate 25 Mg Tablet PO 05/04/24 08:59 25 mg BID TONY Administration Oxybutynin Chloride 5 mg 05/05/23 09:00 05/06/23 10:04 Oxybutynin Chloride 5 Mg Tablet PO 05/04/24 08:59 5 mg BID TONY Administration Potassium Chloride 20 meq 05/05/23 09:00 05/06/23 10:02 Potassium Chloride Er 20 Meq Tab.Er.Prt PO 05/04/24 08:59 20 meq DAILY TONY Administration Ranolazine 500 mg 05/05/23 09:00 05/05/23 21:10 Ranolazine 500 Mg Tab.Er.12h PO 07/06/24 08:59 500 mg BID TONY Administration Sertraline HCl 50 mg 05/05/23 09:00 05/06/23 10:04 Sertraline 50 Mg Tablet PO 05/04/24 08:59 50 mg DAILY TONY Administration Sodium Chloride 0 ml 05/04/23 16:40 05/04/23 19:21 Sodium Chloride 0.9 % 10 Ml Syringe IV-PUSH 05/03/24 16:39 6 ml PRN PRN Administration Flush Spironolactone 25 mg 05/05/23 21:00 05/06/23 10:03 Spironolactone 25 Mg Tablet PO 05/04/24 20:59 25 mg BID TONY Administration Vitamin D 100 mcg 05/05/23 10:00 05/06/23 10:00 Cholecalciferol 25 Mcg (1,000 Units) Tablet PO 05/04/24 09:59 100 mcg DAILY TONY Administration Zolpidem Tartrate 5 mg 05/04/23 21:18 05/05/23 22:58 Zolpidem 5 Mg Tablet PO 10/31/23 21:17 5 mg HS PRN Administration Insomnia A&P - Hospitalist Assessment/Plan (1) Acute on chronic diastolic heart failure: (2) Diabetes mellitus: (3) HTN (hypertension): (4) GERD (gastroesophageal reflux disease): Plan Mrs. Jack is a 67-year-old female with a PMH of T2DM, HTN, diastolic heart failure, mild aortic stenosis, heart cath with stent placement x6, HLD that presents to the emergency room today for increased shortness of breath with exertion and increased swelling to legs IMP Acute on chronic diastolic heart failure?failed outpatient increase of Lasix Patient responded to IV Bumex drip. We will continue this. Monitor I's and O, daily weight, Nephrology consult appreciated Hypomagnesemia replace per protocol Hypokalemia: Replace per protocol T2DM?fingersticks ACHS, SSIC, resume home meds?Levemir, insulin lispro with meals. Monitor for any low blood sugars. HTN?losartan-hold.continue metoprolol, amlodipine GERD?resume home meds?famotidine Left lower extremity wound?consult wound nurse for dressing changes Morbid obesity lifestyle modification, DVT PPx- SCDs, compression socks, enoxaparin Diet order-1800 ADA, 2 g sodium, heart healthy CODE STATUS-full code as discussed with patient Documented By: David Lane MD 05/06/23 1055 Signed By: <Electronically signed by David Lane MD> 05/06/23 [address] [facility] Work Phone: [phone]) [phone] Consult note Author Ari Fernández [facility] May 05, 2023 5:54pm Note Date/Time May 05, 2023 1:47p m [facility] [address] [place] [address] Nephrology Consult Note Signed with Addenda Patient: Namrata Jack MR#: [id number] : 1955 Acct:[id number] Age/Sex: 67 / F Adm Date: 3 Loc: Room: [address] [place] [address] Type: ADM IN Attending Dr: Fahad Dobson MD Copies to: Yury Barry DO, RES MD Ari Acevedo MD Robert L Hill, MD~ ADDENDUM1 Attending Physician Attestation: I personally saw this patient on the day of the encounter, reviewed the history,performed the da silva elements of the exam, formulated the plan of care and confirmed the written note. I agree with the findings and plan as documented in this note and have edited it if needed to reflect my findings and plan. Addendum Documented By: MD Ari Fernández 05/05/231753 Addendum Signed By: <Electronically signed by MD Ari Fernández> 05/05/23 175 Providers Consult Date: 05/05/23 Requesting Provider: Fahad Dobson MD Primary Care Provider: Latrice Bergeron MD [facility] Reason for Consult: Bilateral lower extremity edema History of Present Illness: Mrs. Jack is a 67-year-old female with a PMH of T2DM, HTN, diastolic heart failure, mild aortic stenosis, heart cath with stent placement x6, HLD that presents to the emergency room for increased shortness of breath with exertion and increased swelling to legs. Patient had a heart cath on March 15 for increased shortness of breath, after which she reports slowly worsening bilateral lower extremity edema up into her abdomen with shortness of breath with activity. No new stents were placed after recent cath. Patient reports occasional chest pain for which she takes nitro. Patient has been experiencing ruptured bullae mostly in the LLE. She currently takes Lasix 40 mg once a day with an increase to 80 mg for the past 3 days per recommendation of her nurse. Patient reports having SONYA but does not use a CPAP. She does sleep in a recliner due to shortness of breath when laying flat. Patient had an echo done 1 year ago which showed EF of 60 to 65% with mild to moderate diastolic dysfunction. ER work-up was significant for sinus bradycardia with first-degree block on EKG. Mild anemia 11.7, BUN 29, creatinine 1.44 which is close to baseline, BNP 115. Her UA showed 1+ leuk, no protein. Chest x-ray significant for cardiomegaly andvascular congestion. She was admitted to the floor on telemetry. And nephrology was consulted for 4+ BLE edema. Patient is being seen and examined in his room. He is morbidly obese with mild shortness of breath however he was satting in the low 90s on room air. Lasix was stopped and switched to bumetanide 1 mg/h by hospitalist team. Creatinine function improved from 1.44-1.39, mild hypomagnesemia 1.7. Repeat echo today mostly unchanged. EF 65 to 70% Urine analysis was reviewed. He has no significant proteinuria. Patient scheduled to have VQ scan to rule out PE. He had DVTs and PE last year and currently on heparin drip. Chest x-ray showed cardiomegaly with mild pulmonary congestion Patient denies any chest pain. He has shortness of breath on mild exertion. Hehas significant lower extremity edema that has increased recently over the last few days. No urinary symptoms. Review of Systems Review of Systems Review of systems: 10 point review of system negative, other than whats in HPI/assessment and plan [facility] Vaccinated for COVID-19?: Unknown Medical History (Updated 05/05/23 @ 13:42 by Yury Barry DO, RES) Asthma allergy induced CAD (coronary artery disease) Diabetes mellitus Diverticulosis GERD (gastroesophageal reflux disease) HTN (hypertension) Morbid obesity Morbid obesity with BMI of 50.0-59.9, adult Neuropathy Osteoarthritis Pickwickian syndrome Surgical History History of back surgery Hx of appendectomy Hx of cholecystectomy Hx of heart artery stent X6 Hx of hysterectomy Hx of knee surgery Hx of neck surgery Family History (Updated 05/04/23 @ 20:49 by Davina Grimes APRN) Father CAD (coronary artery disease) AMI (acute myocardial infarction) Sister CAD (coronary artery disease) AMI (acute myocardial infarction) Sister CAD (coronary artery disease) AMI (acute myocardial infarction) Brother CAD (coronary artery disease) Social History Smoking Status: Former smoker Tobacco Type: cigarettes Substance Use Type: None Meds Medications & Allergies Allergies Penicillins Allergy (Severe, Verified 05/04/23 16:40) Anaphylaxis IV Dye Allergy (Severe, Uncoded 05/04/23 16:40) Anaphylaxis Home Medications amlodipine 5 mg tablet 5 mg PO DAILY 01/20/18 [History Confirmed 05/04/23] hydrocodone 10 mg-acetaminophen 325 mg tablet 10 - 325 mg PO QID PRN Pain 01/20/18 [History Confirmed 05/04/23] insulin detemir U-100 100 unit/mL subcutaneous solution (Levemir U-100 Insulin) 50 units subcut BID 01/20/18 [History Confirmed 05/04/23] losartan 100 mg tablet 100 mg PO DAILY 01/20/18 [History Confirmed 05/04/23] metoprolol tartrate 25 mg tablet 50 mg PO BID 01/20/18 [History Confirmed 05/04/23] oxybutynin chloride 5 mg tablet 5 mg PO BID 01/20/18 [History Confirmed 05/04/23] zolpidem 5 mg tablet 5 mg PO HS PRN Insomnia 01/20/18 [History Confirmed 05/04/23] gabapentin 300 mg capsule 600 mg PO BID 02/24/18 [History Confirmed 05/04/23] aspirin 81 mg tablet,delayed release (Aspir-Low) 81 mg PO DAILY 06/01/19 [History Confirmed 05/04/23] cholecalciferol (vitamin D3) 50 mcg (2,000 unit) capsule 4,000 unit PO DAILY 06/01/19 [History Confirmed 05/04/23] clopidogrel 75 mg tablet (Plavix) 75 mg PO DAILY 06/01/19 [History Confirmed 05/04/23] cyclobenzaprine 10 mg tablet 10 mg PO TID PRN Spasms 06/01/19 [History Confirmed 05/04/23] sertraline 50 mg tablet (Zoloft) 50 mg PO DAILY 06/01/19 [History Confirmed 05/04/23] insulin lispro 100 unit/mL subcutaneous solution 40 units subcut DIRECTED 06/09/19 [History Confirmed 05/04/23] potassium chloride 20 mEq tablet,extended release 20 meq PO DAILY #30 tabs 06/11/19 [Rx Confirmed 05/04/23] rosuvastatin 20 mg tablet (Crestor) 40 mg PO HS 30 days #30 tabs 06/11/19 [Rx Confirmed 05/04/23] furosemide 40 mg tablet 80 mg PO DAILY.8A 05/04/23 [History Confirmed 05/04/23] insulin detemir U-100 100 unit/mL subcutaneous solution (Levemir U-100 Insulin) 50 unit subcut BID 05/04/23 [History Confirmed 05/04/23] ranolazine 500 mg tablet,extended release,12 hr 500 mg PO BID 05/04/23 [History Confirmed 05/04/23] Active Medications: Active Medications Acetaminophen (Acetaminophen 500 Mg Tablet) 1,000 mg PO Q6HR PRN PRN Reason: Pain Scale 1 - 3 or fever Stop: 05/03/24 21:00 Hydrocodone Bitart/Acetaminophen (Hydrocodone/Acetaminophen 10-325 Mg Tablet) 1tab PO QID PRN PRN Reason: Pain Last Admin: 05/05/23 00:42 Dose: 1 tab Amlodipine Besylate (Amlodipine 5 Mg Tablet) 5 mg PO DAILY TONY Stop: 05/04/24 09:59 Last Admin: 05/05/23 11:07 Dose: 5 mg Aspirin (Aspirin 81 Mg Tablet.) 81 mg PO DAILY TONY Stop: 05/04/24 08:59 Last Admin: 05/05/23 08:26 Dose: 81 mg Atorvastatin Calcium (Atorvastatin 80 Mg Tablet) 80 mg PO HS TONY Stop: 05/03/24 21:59 Last Admin: 05/05/23 00:43 Dose: 80 mg Clopidogrel Bisulfate (Clopidogrel Bisulfate 75 Mg Tablet) 75 mg PO DAILY TONY Stop: 05/04/24 08:59 Last Admin: 05/05/23 08:26 Dose: 75 mg Cyclobenzaprine HCl (Cyclobenzaprine 10 Mg Tablet) 10 mg PO TID PRN PRN Reason: Spasms Stop: 05/03/24 21:17 Last Admin: 05/05/23 00:42 Dose: 10 mg Dextrose (Dextrose 50% In Water 25 Gm/50 Ml Syringe) 0 gm IV-PUSH PRN PRN PRN Reason: Hypoglycemia Stop: 05/03/24 21:06 Enoxaparin Sodium (Enoxaparin 40 Mg/0.4 Ml Syringe) 40 mg SUBCUT DAILY@10 [facility] Stop: 05/04/24 09:59 Last Admin: 05/05/23 11:07 Dose: 40 mg Famotidine (Famotidine 20 Mg Tablet) 20 mg PO QHS [facility] Stop: 05/03/24 21:59 Last Admin: 05/05/23 00:43 Dose: Not Given Gabapentin (Gabapentin 300 Mg Capsule) 600 mg PO BID [facility] Stop: 05/03/24 21:29 Last Admin: 05/05/23 08:27 Dose: 600 mg Glucose (Dextrose 40% Gel 15 Gm Tube) 0 gm PO PRN PRN PRN Reason: Hypoglycemia Stop: 05/03/24 21:06 Bumetanide 24 mg/ IV (Miscellaneous Supplies) 96 mls @ 4 mls/hr IV .Q24H [facility] Stop: 05/04/24 10:14 Last Admin: 05/05/23 11:06 Dose: 1 mg/hr, 4 mls/hr Sodium Chloride (0.9% Sodium Chloride 1,000 Ml) 1,000 mls @ 20 mls/hr IV .Q24H [facility] Stop: 05/04/24 10:44 Last Admin: 05/05/23 11:07 Dose: 20 mls/hr Insulin Aspart (Insulin Aspart 300 Units/3 Ml Insuln.Pen) 0 units SUBCUT TID.WM.HS [facility]; Protocol Stop: 05/03/24 21:59 Last Admin: 05/05/23 11:15 Dose: Not Given Insulin Aspart (Insulin Aspart 300 Units/3 Ml Insuln.Pen) 40 units SUBCUT TID.WITH.MEALS [facility] Stop: 05/04/24 07:59 Last Admin: 05/05/23 11:07 Dose: 40 units Insulin Glargine (Insulin Glargine 300 Units/3 Ml Insuln.Pen) 50 units SUBCUT BID [facility] Stop: 05/04/24 08:59 Last Admin: 05/05/23 08:28 Dose: 50 units Losartan Potassium (Losartan 50 Mg Tablet) 100 mg PO DAILY TONY Stop: 05/04/24 08:59 Last Admin: 05/05/23 08:27 Dose: 100 mg Metoprolol Tartrate (Metoprolol Tartrate 25 Mg Tablet) 25 mg PO BID TONY Stop: 05/04/24 08:59 Last Admin: 05/05/23 08:26 Dose: 25 mg Oxybutynin Chloride (Oxybutynin Chloride 5 Mg Tablet) 5 mg PO BID TONY Stop: 05/04/24 08:59 Last Admin: 05/05/23 08:27 Dose: 5 mg Potassium Chloride (Potassium Chloride Er 20 Meq Tab.Er.Prt) 20 meq PO DAILY TONY Stop: 05/04/24 08:59 Last Admin: 05/05/23 08:27 Dose: 20 meq Ranolazine (Ranolazine 500 Mg Tab.Er.12h) 500 mg PO BID TONY Stop: 05/04/24 08:59 Last Admin: 05/05/23 08:27 Dose: 500 mg Sertraline HCl (Sertraline 50 Mg Tablet) 50 mg PO DAILY TONY Stop: 05/04/24 08:59 Last Admin: 05/05/23 08:26 Dose: 50 mg Sodium Chloride (Sodium Chloride 0.9 % 10 Ml Syringe) 0 ml IV-PUSH PRN PRN PRN Reason: Flush Stop: 05/03/24 16:39 Last Admin: 05/04/23 19:21 Dose: 6 ml Spironolactone (Spironolactone 25 Mg Tablet) 25 mg PO BID [facility] Stop: 05/04/24 20:59 Vitamin D (Cholecalciferol 25 Mcg (1,000 Units) Tablet) 100 mcg PO DAILY [facility] Stop: 05/04/24 09:59 Last Admin: 05/05/23 11:07 Dose: 100 mcg Zolpidem Tartrate (Zolpidem 5 Mg Tablet) 5 mg PO HS PRN PRN Reason: Insomnia Stop: 10/31/23 21:17 Last Admin: 05/05/23 00:42 Dose: 5 mg Exam Physical Exam Vital Signs: Temp Pulse Resp BP Pulse Ox O2 Del Method 97.6 F 62 16 144/75 H 92 L Room Air 05/05/23 04:00 05/05/23 11:50 05/05/23 11:50 05/05/23 11:50 05/05/23 11:50 05/05/23 11:50 Narrative: Constitutional: Morbidly obese, laying flat in the bed with respiratory distressand oxygen HEENT: Head with atraumatic, normal cephalic. He has mild pallor with no jaundice or cyanosis. Cardiovascular: RRR, normal S1-S2, no gallop or rub, No JVD Respiratory: Diminished breath sounds with scattered crackles in both lung naylor. Gastrointestinal: Soft, non tender, positive bowel sounds. Difficult to palpateorgans. Extremities: 4+ pitting edema. He has wound on the left leg after light trauma. The wound seeping fluid currently in dressing. Skin: No rashes or bruises Musculoskeletal: No joints swellings or inflammation Neurology: Awake, alert, oriented ?3, No focal motor or sensory deficits Psych: Normal mood and affect Results Labs 05/05/23 05:33 05/05/23 05:33 Labs: 05/04/23 05/04/23 05/05/23 17:27 18:34 05:33 BUN 29 H 27 H Creatinine 1.44 H 1.39 H Albumin 3.8 Urine Color Yellow Urine Appearance Clear Urine pH 5.0 Ur Specific [place] 1.012 Urine Protein Negative Urine Glucose (UA) Normal Urine Ketones Negative Urine Occult Blood Negative Urine Nitrite Negative Ur Leukocyte Esterase 1+ H Urine RBC 0-1 Urine WBC 3-4 Urine Bacteria None seen Radiology Impressions Impressions - last 24 hours: Impressions Chest X-Ray 05/04/23 16:57 IMPRESSION: CHF FINDINGS, SIMILAR TO THE PRIOR STUDY. Impression dictated by: Chapin Maher Jr., D.O.05/04/2023 6:06 PM Dictation Location: [place] [address] Any impression(s) listed above is documentation that was entered by the reading physician into a diagnostic report(s) for Namrata Bartholomew Guero. I have reviewed the report(s) and am incorporating any findings in the treatment plan of this patient where applicable. A&P - Nephrology Assessment/Plan (1) Acute on chronic diastolic heart failure: Assessment/Problem Details: Right-sided diastolic mild to moderate heart failure with acute exacerbation andsignificant volume retention and lower extremity edema. Echo mostly unchanged from 12/21 and today. Her BNP is 115 which suggested less left ventricular contribution. This does not rule out pulmonary hypertension. Patient takes Lasix 40 mg daily with a recent increase to 80 mg over the last 3 days. Despitethis she has had significant shortness of breath with exertion and persistent volume overload. Kidney function is grossly preserved. Her Lasix has been heldand started on Bumex 1 mg/h IV. The goal is to increase diuresis and continue to monitor kidney function, electrolyte balance, and blood pressure. Cardiologyhas also been consulted. (2) Morbid obesity with BMI of 50.0-59.9, adult: (3) Pickwickian syndrome: Plan: Patient is morbidly obese with history of sleep apnea however he does not use BiPAP. (4) Hypomagnesemia: Assessment/Problem Details: Mild hypomagnesemia of 1.7. Supplementation has been given. Plan * I agree bumetanide drip 1 mg/h. Patient has Garrett catheter and will monitor daily intake and output. * Since patient is morbidly obese with intermittent hypokalemia currently on potassium supplement, will add spironolactone 25 mg twice a day to be increased to 50 mg twice a day if needed since obese patient has upper regulation of mineralocorticoid receptors with enhanced salt and water retention. * Importance of salt restriction will be stressed at the time of discharge. * Monitor daily intake and output, will add low-dose metolazone if patient is not able to achieve adequate diuresis. Patient has adequate blood pressure for diuresis. * Magnesium will be repleted as needed to avoid hypokalemia with diuresis. * Continue losartan 100 mg daily. He may need to decrease the dose if blood pressure drops with diuresis. I appreciate this consultation we will be happy to follow the patient with you during hospital stay. Documented By: Yury Barry DO, KASSIE 05/05/23 13 01 Signed By: <Electronically signed by DO KASSIE Barry> 05/05/23 1347 <Electronically signed by MD Ari Fernández> 05/05/23 [address] [facility] Work Phone: 1(876) 867-374307-07-2023 Consult note Author W Piter Benson [facility] May 05, 2023 12:27pm Note Date/Time May 05, 2023 12:18 pm [facility] [address] [place] [address] Cardiology Consult Note Signed Patient: Namrata Jack MR#: [id number] : 1955 Acct:[id number] Age/Sex: 67 / F Adm Date: 3 Loc: 3T Room: [address] [place] [address] Type: ADM IN Attending Dr: Fahad Dobson MD Copies to: MD Latrice Acevedo MD W Scott Sheldon, DO~ Cardiology HPI History of Present Illness Consult Date: 05/05/23 Reason for Consult: Shortness of breath, ASHD, morbid obesity, history of PCI's HPI: Ms. Jack is a 67 year old female seen in interventional cardiology consultation at request of hospitalist and patient presents with severe exertional dyspnea, shortness of breath and edema. Chest x-ray revealing bilateral vascular congestion, cardiomegaly, and significant bilateral lower extremity edema with cellulitis of the left calf area. Patient has known history of coronary disease with extensive revascularizations of the LAD performed by myself in the past, normal left ventricular function, morbid obesity, sleep apnea, diabetes with associated diabetic neuropathy and retinopathy, history of previous diastolic congestive heart failure episodes. Most recent heart catheterization performed by Dr. Ortega at [facility] revealed patent proximal and mid LAD stents, 50% ostial circumflex disease, subtotal occlusion of the apical LAD (diabetic vasculopathy as previously described), and widely patent RCA and mild disease of obtuse marginalbranches. Left ventricular function by cath was normal and by today's echo alsowas normal, left ventricular ejection fraction of 65%; RVSP is 38.9 mmHg (not substantially elevated) and RV is not dilated. She presents once again with essentially left ventricular diastolic heart failure, primarily secondary to her underlying comorbidities with no evidence ofacute coronary syndrome. Consistent with HFpEF. Case discussed with nephrology during consultation, plans for intravenous Bumex and oral spironolactone already initiated Cardiology will follow for the next 24 to 48 hours; as per most recent heart cath in February 2023, no interventions required. Notably patient has been diagnosed with sleep apnea and is noncompliant with device. Review of Systems Review of Systems All other systems reviewed & are negative unless noted below or in HPI Constitutional Constitutional: Reports as per HPI, Reports fatigue and Reports frequent falls Eyes Eyes: Reports system reviewed and no additional complaints, except as documented ENT Ears, Nose, Mouth, and Throat: Reports system reviewed and no additional complaints, except as documented Cardiovascular Cardiovascular: Reports as per HPI, Denies chest pain, Denies chest pain at rest, Denies chest pain with activity, Reports dyspnea on exertion, Reports leg edema, Reports pedal edema and Denies syncope Respiratory Respiratory: Reports as per HPI and Reports dyspnea on exertion Gastrointestinal Gastrointestinal: Reports system reviewed and no additional complaints, except as documented Genitourinary Genitourinary: Reports system reviewed and no additional complaints, except as documented Musculoskeletal Musculoskeletal: Reports system reviewed and no additional complaints, except asdocumented Integumentary/Breasts Skin/Breast: Reports system reviewed and no additional complaints, except as documented Neurologic Neurologic: Reports system reviewed and no additional complaints, except as documented PMFSH Vaccinated for COVID-19?: Unknown Medical History (Updated 05/04/23 @ 19:47 by Ann Gillis MD) Asthma allergy induced CAD (coronary artery disease) Diabetes mellitus Diverticulosis GERD (gastroesophageal reflux disease) HTN (hypertension) Morbid obesity Morbid obesity with BMI of 50.0-59.9, adult Neuropathy Osteoarthritis Pickwickian syndrome Surgical History History of back surgery Hx of appendectomy Hx of cholecystectomy Hx of heart artery stent X6 Hx of hysterectomy Hx of knee surgery Hx of neck surgery Family History (Updated 05/04/23 @ 20:49 by Davina Grimes APRN) Father CAD (coronary artery disease) AMI (acute myocardial infarction) Sister CAD (coronary artery disease) AMI (acute myocardial infarction) Sister CAD (coronary artery disease) AMI (acute myocardial infarction) Brother CAD (coronary artery disease) Social History Smoking Status: Former smoker Tobacco Type: cigarettes Substance Use Type: None Meds Medications and Allergies Allergies Penicillins Allergy (Severe, Verified 05/04/23 16:40) Anaphylaxis IV Dye Allergy (Severe, Uncoded 05/04/23 16:40) Anaphylaxis Home Medications amlodipine 5 mg tablet 5 mg PO DAILY 01/20/18 [History Confirmed 05/04/23] hydrocodone 10 mg-acetaminophen 325 mg tablet 10 - 325 mg PO QID PRN Pain 01/20/18 [History Confirmed 05/04/23] insulin detemir U-100 100 unit/mL subcutaneous solution (Levemir U-100 Insulin) 50 units subcut BID 01/20/18 [History Confirmed 05/04/23] losartan 100 mg tablet 100 mg PO DAILY 01/20/18 [History Confirmed 05/04/23] metoprolol tartrate 25 mg tablet 50 mg PO BID 01/20/18 [History Confirmed 05/04/23] oxybutynin chloride 5 mg tablet 5 mg PO BID 01/20/18 [History Confirmed 05/04/23] zolpidem 5 mg tablet 5 mg PO HS PRN Insomnia 01/20/18 [History Confirmed 05/04/23] gabapentin 300 mg capsule 600 mg PO BID 02/24/18 [History Confirmed 05/04/23] aspirin 81 mg tablet,delayed release (Aspir-Low) 81 mg PO DAILY 06/01/19 [History Confirmed 05/04/23] cholecalciferol (vitamin D3) 50 mcg (2,000 unit) capsule 4,000 unit PO DAILY 06/01/19 [History Confirmed 05/04/23] clopidogrel 75 mg tablet (Plavix) 75 mg PO DAILY 06/01/19 [History Confirmed 05/04/23] cyclobenzaprine 10 mg tablet 10 mg PO TID PRN Spasms 06/01/19 [History Confirmed 05/04/23] sertraline 50 mg tablet (Zoloft) 50 mg PO DAILY 06/01/19 [History Confirmed 05/04/23] insulin lispro 100 unit/mL subcutaneous solution 40 units subcut DIRECTED 06/09/19 [History Confirmed 05/04/23] potassium chloride 20 mEq tablet,extended release 20 meq PO DAILY #30 tabs 06/11/19 [Rx Confirmed 05/04/23] rosuvastatin 20 mg tablet (Crestor) 40 mg PO HS 30 days #30 tabs 06/11/19 [Rx Confirmed 05/04/23] furosemide 40 mg tablet 80 mg PO DAILY.8A 05/04/23 [History Confirmed 05/04/23] insulin detemir U-100 100 unit/mL subcutaneous solution (Levemir U-100 Insulin) 50 unit subcut BID 05/04/23 [History Confirmed 05/04/23] ranolazine 500 mg tablet,extended release,12 hr 500 mg PO BID 05/04/23 [History Confirmed 05/04/23] Exam Physical Exam Vital Signs: Temp Pulse Resp BP Pulse Ox O2 Del Method 97.6 F 62 16 144/75 H 92 L Room Air 05/05/23 04:00 05/05/23 11:50 05/05/23 11:50 05/05/23 11:50 05/05/23 11:50 05/05/23 11:50 Const General: cooperative, comfortable and no acute distress Nutritional Appearance: obese Orientation: alert, awake and oriented x3 HEENT Head: normal to inspection Eyes General: appearance normal, both eyes and all related structures Neck Neck: normal visual inspection Chest Chest palpation & inspection: normal inspection of the chest Resp Effort & Inspection: normal respiratory effort Auscultation: clear to auscultation bilaterally Cardio Rate: regular rate Heart Sounds: S1 normal, S2 normal and no murmurs Pulses: radial pulses present GI Inspection: large pannus and obesity Palpation: soft Skin General: no rashes or lesions noted Neuro General: patient alert, patient awake and patient oriented x3 Cognition: normal cognition Speech: speech normal Extrem General: edema and pedal edema Results Labs 05/05/23 05:33 05/05/23 05:33 Lab results: Cardiac Enzymes 05/04/23 05/04/23 05/04/23 Range/Units 17:27 17:27 17:27 AST 17 (13-39) U/L Total Creatine Kinase 50 (30-223) U/L B-Natriuretic Peptide 115.0 H (5-100) pg/mL CBC 05/04/23 05/05/23 Range/Units 17:27 05:33 RBC 3.77 3.54 L (3.60-5.00) X10E6/uL Hgb 11.7 L 11.2 L (11.8-15.4) g/dL Hct 35.1 33.0 L (34.0-46.4) % Plt Count 242 240 (150-450) x10E3/uL Neut # (Auto) 4.0 4.8 (1.8-7.7) x10E3/uL Lymph # (Auto) 1.5 1.8 (1.00-4.8) x10E3/uL [place] # (Auto) 0.6 0.6 (0.0-0.8) x10E3/uL Eos # (Auto) 0.3 0.3 (0.0-0.45) x10E3/uL Baso # (Auto) 0.1 0.1 (0.0-0.2) x10E3/uL Comprehensive Metabolic Panel 05/04/23 05/05/23 Range/Units 17:27 05:33 Sodium 143 141 (136-145) mmol/L Potassium 3.9 3.7 (3.5-5.1) mmol/L Chloride 106 104 (98-107) mmol/L Carbon Dioxide 30.1 31.9 H (21.0-31.0) mmol/L BUN 29 H 27 H (7-25) mg/dL Creatinine 1.44 H 1.39 H (0.60-1.20) mg/dL Glucose 94 124 H (70-100) mg/dL Calcium 9.5 9.2 (8.6-10.3) mg/dL AST 17 (13-39) U/L ALT 13 (7-52) U/L Alkaline Phosphatase 58 (34-104) U/L Total Protein 6.6 (6.4-8.9) gm/dL Albumin 3.8 (3.5-5.7) gm/dL Intake and Output 05/04/23 05/05/23 05/05/23 23:59 07:59 15:59 Intake Total 150 / 150 440 / 440 Output Total 1600 / 1600 Balance 150 / 150 -1160 / -1160 Intake: IV 150 / 150 levoFLOXacin 750MG-*D5W* 750 mg 150 / 150 In 150 ml @ 100 mls/hr IV ONCE ONE Rx#:[id number] Oral 440 / 440 Output: Urine Amount (Catheter) 1600 / 1600 Urethral (Garrett) 1600 / 1600 Other: # Voids 2 # Bowel Movements 0 Weight 153.7 kg 154 kg Date of Last Bowel Movement 04/28/23 04/28/23 04/28/23 Patient Weight 05/05/23 23:59 Weight 154 kg A&P - Cardiology (1) Pickwickian syndrome: Code(s): E66.2 - Morbid (severe) obesity with alveolar hypoventilation (2) Morbid obesity with BMI of 50.0-59.9, adult: Code(s): E66.01 - Morbid (severe) obesity due to excess calories; Z68.43 - Body mass index [BMI] 50.0-59.9, adult (3) Coronary angioplasty status: Code(s): Z98.61 - Coronary angioplasty status (4) Acute on chronic diastolic heart failure: Code(s): I50.33 - Acute on chronic diastolic (congestive) heart failure Documented By: Rui Benson DO 05/05/23 1216 Signed By: <Electronically signed by Rui Benson DO> 05/05/23 1227 [facility] Work Phone: 1(407) 402-991307-07-2023 Progress note Author Fahad Dobson [facility] May 05, 2023 9:42am Note Date/Time May 05, 2023 9:30a m [facility] [address] [place] [address] Hospitalist Progress Note Signed Patient: Namrata Jack MR#: [id number] : 1955 Acct:[id number] Age/Sex: 67 / F Adm Date: 3 Loc: Room: [address] [place] [address] Type: ADM IN Attending Dr: Fahad Dobson MD Copies to: ~ Date of Service: 05/05/2023 Subjective Subjective Narrative: Mrs. Jack is a 67-year-old female with a PMH of T2DM, HTN, diastolic heart failure, mild aortic stenosis, heart cath with stent placement x6, HLD that presents to the emergency room today for increased shortness of breath with exertion and increased swelling to legs. Patient seen and evaluated in the emergency room, resting on the cart quietly, at bedside. She reports that her premium representative Dr. Ortega instructed her to be seen in the emergency room for increased shortness of breath and swelling to her legs. She reports that she had a left heart cath in March 15, 2 weeks later she noticed that her legs were swelling more and she was getting short of breath with activity and has worsened over the last couple of weeks. She sleeps in a recliner at home. She reports she does have a nonproductive cough. She denies fever, chills. She states that she did experience occasional chest pain, last time was last night and she took 1 nitro and it went away. She states that she normally takes 40 ofLasix every day however for the last 3 days her insurance nurse told her to take80, last dose of 80 was today. She states she was diagnosed with a UTI a coupleweeks ago and just finished Bactrim for that. She also has a wound to her left lower extremity, she states it began about 4 years ago she had fallen and gottenroad rash to that leg. About a year and a half ago he started to blister, 1 month ago she noticed huge blisters and they had ruptured. She was sent to Dr. Christian who performed a punch biopsy which was essentially negative. She reports she smoked a little bit when she was a teenager, denies alcohol use. EKG in the ER shows sinus bradycardia with a first-degree block. CBC with an H&Hof 11.7/35.1, WBC 6.4. CMP with a potassium of 3.9, BUN 29, creatinine 1.44. Troponin 6.4. BNP 115. UA with clear, yellow urine, 1+ leukocytes, no bacteriaseen. Chest x-ray shows cardiomegaly with vascular congestion. Patient was medicated with Lasix and levofloxacin. She will be admitted to the [facility] telemetry floor under the care of the hospitalist team for further evaluation and treatment. Exam Physical Exam Vital Signs: Temp Pulse Resp BP Pulse Ox O2 Del Method 97.6 F 52 L 14 144/73 H 92 L Room Air 05/05/23 04:00 05/05/23 08:00 05/05/23 08:00 05/05/23 08:00 05/05/23 08:00 05/05/23 08:00 Narrative: General patient laying on bed not in acute distress alert awake x3 HEENT pupils are equal round reactive light accommodation neck supple no JVD CVS S1-S2 regular rhythm no murmur no gallop Chest clear to auscultation percussion Abdomen soft bowel sounds normoactive no rebound no guarding Extremities +4 edema Neuro exam oriented x3 alert awake no focal deficit Skin exam normal no skin rash or lesions Psychiatry normal. Normal judgment and insight Objective Lab Results 05/05/23 05:33 05/05/23 05:33 Meds Allergies and Active Meds Allergies Penicillins Allergy (Severe, Verified 05/04/23 16:40) Anaphylaxis IV Dye Allergy (Severe, Uncoded 05/04/23 16:40) Anaphylaxis Active Meds: Active Medications Generic Name Dose Route Start Last Admin Trade Name Freq PRN Reason Stop Dose Admin Acetaminophen 1,000 mg 05/04/23 21:01 Acetaminophen 500 Mg Tablet PO 05/03/24 21:00 Q6HR PRN Pain Scale 1 - 3 or fever Hydrocodone Bitart/Acetaminophen 1 tab 05/04/23 21:18 05/05/23 00:42 Hydrocodone/Acetaminophen 10-325 Mg Tablet PO 1 tab QID PRN Administration Pain Aspirin 81 mg 05/05/23 09:00 05/05/23 08:26 Aspirin 81 Mg Tablet. PO 05/04/24 08:59 81 mg DAILY TONY Administration Atorvastatin Calcium 80 mg 05/04/23 22:00 05/05/23 00:43 Atorvastatin 80 Mg Tablet PO 05/03/24 21:59 80 mg HS TONY Administration Bumetanide 1 mg 05/05/23 09:00 05/05/23 08:27 Bumetanide 1 Mg/4 Ml Vial IV-PUSH 05/04/24 08:59 1 mg BID TONY Administration Clopidogrel Bisulfate 75 mg 05/05/23 09:00 05/05/23 08:26 Clopidogrel Bisulfate 75 Mg Tablet PO 05/04/24 08:59 75 mg DAILY TONY Administration Cyclobenzaprine HCl 10 mg 05/04/23 21:18 05/05/23 00:42 Cyclobenzaprine 10 Mg Tablet PO 05/03/24 21:17 10 mg TID PRN Administration Spasms Dextrose 0 gm 05/04/23 21:07 Dextrose 50% In Water 25 Gm/50 Ml Syringe IV-PUSH 05/03/24 21:06 PRN PRN Hypoglycemia Enoxaparin Sodium 40 mg 05/05/23 10:00 Enoxaparin 40 Mg/0.4 Ml Syringe SUBCUT 05/04/24 09:59 DAILY@10 TONY Famotidine 20 mg 05/04/23 22:00 05/05/23 00:43 Famotidine 20 Mg Tablet PO 05/03/24 21:59 Not Given QHS TONY Gabapentin 600 mg 05/04/23 21:30 05/05/23 08:27 Gabapentin 300 Mg Capsule PO 05/03/24 21:29 600 mg BID TONY Administration Glucose 0 gm 05/04/23 21:07 Dextrose 40% Gel 15 Gm Tube PO 05/03/24 21:06 PRN PRN Hypoglycemia Insulin Aspart 0 units 05/04/23 22:00 05/05/23 08:01 Insulin Aspart 300 Units/3 Ml Insuln.Pen SUBCUT 05/03/24 21:59 Not Given TID.WM.HS TONY Protocol Insulin Aspart 40 units 05/05/23 08:00 05/05/23 08:28 Insulin Aspart 300 Units/3 Ml Insuln.Pen SUBCUT 05/04/24 07:59 40 units TID.WITH.MEALS TONY Administration Insulin Glargine 50 units 05/05/23 09:00 05/05/23 08:28 Insulin Glargine 300 Units/3 Ml Insuln.Pen SUBCUT 05/04/24 08:59 50 units BID TONY Administration Losartan Potassium 100 mg 05/05/23 09:00 05/05/23 08:27 Losartan 50 Mg Tablet PO 05/04/24 08:59 100 mg DAILY TONY Administration Metoprolol Tartrate 25 mg 05/05/23 09:00 05/05/23 08:26 Metoprolol Tartrate 25 Mg Tablet PO 05/04/24 08:59 25 mg BID TONY Administration Oxybutynin Chloride 5 mg 05/05/23 09:00 05/05/23 08:27 Oxybutynin Chloride 5 Mg Tablet PO 05/04/24 08:59 5 mg BID TONY Administration Potassium Chloride 20 meq 05/05/23 09:00 05/05/23 08:27 Potassium Chloride Er 20 Meq Tab.Er.Prt PO 05/04/24 08:59 20 meq DAILY TONY Administration Ranolazine 500 mg 05/05/23 09:00 05/05/23 08:27 Ranolazine 500 Mg Tab.Er.12h PO 05/04/24 08:59 500 mg BID TONY Administration Sertraline HCl 50 mg 05/05/23 09:00 05/05/23 08:26 Sertraline 50 Mg Tablet PO 05/04/24 08:59 50 mg DAILY TONY Administration Sodium Chloride 0 ml 05/04/23 16:40 05/04/23 19:21 Sodium Chloride 0.9 % 10 Ml Syringe IV-PUSH 05/03/24 16:39 6 ml PRN PRN Administration Flush Zolpidem Tartrate 5 mg 05/04/23 21:18 05/05/23 00:42 Zolpidem 5 Mg Tablet PO 10/31/23 21:17 5 mg HS PRN Administration Insomnia A&P - Hospitalist Assessment/Plan (1) Acute on chronic diastolic heart failure: (2) Diabetes mellitus: (3) HTN (hypertension): (4) GERD (gastroesophageal reflux disease): Plan Mrs. Jack is a 67-year-old female with a PMH of T2DM, HTN, diastolic heart failure, mild aortic stenosis, heart cath with stent placement x6, HLD that presents to the emergency room today for increased shortness of breath with exertion and increased swelling to legs IMP Acute on chronic diastolic heart failure?failed outpatient increase of Lasix Seen and examined Clinically stable Strict input output Daily weight 154. She gained more than 20 pounds in the last couple weeks Bilateral leg edema +4 On room air Saturation 92% Kidney function is better Discontinue IV Bumex Bumex infusion at 1 mg/h BMP daily Nephrology consult Hypomagnesemia replaced Hypokalemia: Replaced T2DM?fingersticks ACHS, SSIC, resume home meds?Levemir, insulin lispro with meals, A1c in a.m. HTN?losartan, metoprolol, resume amlodipine GERD?resume home meds?famotidine Left lower extremity wound?consult wound nurse for dressing changes Morbid obesity lifestyle modification, DVT PPx- SCDs, compression socks, enoxaparin Diet order-1800 ADA, 2 g sodium, heart healthy CODE STATUS-full code as discussed with patient Documented By: Fahad Dobson MD 05/05/23926 Signed By: <Electronically signed by Fahad Dobson MD> 05/05/23941 [facility] Work Phone: 1(676) 676-176507-07-2023 History and physical note Author Medardo Darling [facility] May 05, 2023 5:06am Note Date/Time May 04, 2023 8:50p m [facility] [address] [place] [address] Hospitalist H&P Signed Patient: Namrata Jack MR#: [id number] : 1955 Acct:[id number] Age/Sex: 67 / F Adm Date: 3 Loc: Room: [address] [place] [address] Type: ADM IN Attending Dr: Medardo Darling DO Copies to: SINA English MD Shawn J Warner, DO~ HPI DATE OF EXAMINATION: 05/04/23 CHIEF COMPLAINT: shorntess of breath on exertion HISTORY OF PRESENT ILLNESS: Mrs. Jack is a 67-year-old female with a PMH of T2DM, HTN, diastolic heart failure, mild aortic stenosis, heart cath with stent placement x6, HLD that presents to the emergency room today for increased shortness of breath with exertionand increased swelling to legs. Patient seen and evaluated in the emergency room, resting on the cart quietly, at bedside. She reports that her premium representative Dr. Ortega instructed her to be seen in the emergency room for increased shortness of breath and swelling to her legs. She reports that she had a left heart cath in March 15, 2 weeks later she noticed that her legs were swelling more and she was getting short of breath with activity and has worsenedover the last couple of weeks. She sleeps in a recliner at home. She reports she does have a nonproductive cough. She denies fever, chills. She states thatshe did experience occasional chest pain, last time was last night and she took 1 nitro and it went away. She states that she normally takes 40 of Lasix every day however for the last 3 days her insurance nurse told her to take 80, last dose of 80 was today. She states she was diagnosed with a UTI a couple weeks ago and just finished Bactrim for that. She also has a wound to her left lower extremity, she states it began about 4 years ago she had fallen and gotten road rash to that leg. About a year and a half ago he started to blister, 1 month ago she noticed huge blisters and they had ruptured. She was sent to Dr. Christian who performed a punch biopsy which was essentially negative. She reports she smoked a little bit when she was a teenager, denies alcohol use. EKG in the ER shows sinus bradycardia with a first-degree block. CBC with an H&Hof 11.7/35.1, WBC 6.4. CMP with a potassium of 3.9, BUN 29, creatinine 1.44. Troponin 6.4. BNP 115. UA with clear, yellow urine, 1+ leukocytes, no bacteriaseen. Chest x-ray shows cardiomegaly with vascular congestion. Patient was medicated with Lasix and levofloxacin. She will be admitted to the [facility] telemetry floor under the care of the hospitalist team for further evaluation and treatment. Review of Systems Review of Systems Review of systems: A 10 point review of systems was obtained, negative unless noted in the HPI or below. [facility] Attestation Statement: The following information was validated with the patient. Medical History (Updated 05/04/23 @ 19:47 by Ann Gillis MD) Asthma allergy induced CAD (coronary artery disease) Diabetes mellitus Diverticulosis GERD (gastroesophageal reflux disease) HTN (hypertension) Morbid obesity Morbid obesity with BMI of 50.0-59.9, adult Neuropathy Osteoarthritis Pickwickian syndrome Surgical History History of back surgery Hx of appendectomy Hx of cholecystectomy Hx of heart artery stent X6 Hx of hysterectomy Hx of knee surgery Hx of neck surgery Family History (Updated 05/04/23 @ 20:49 by Davina Grimes APRN) Father CAD (coronary artery disease) AMI (acute myocardial infarction) Sister CAD (coronary artery disease) AMI (acute myocardial infarction) Sister CAD (coronary artery disease) AMI (acute myocardial infarction) Brother CAD (coronary artery disease) Social History Marital Status: Household Members: spouse Housing: house Smoking Status: Former smoker Tobacco Type: cigarettes Substance Use Type: None Current Occupational Status: retired [employer] Medications and Allergies Allergies Penicillins Allergy (Severe, Verified 05/04/23 16:40) Anaphylaxis IV Dye Allergy (Severe, Uncoded 05/04/23 16:40) Anaphylaxis Home Medications amlodipine 5 mg tablet 5 mg PO DAILY 01/20/18 [History Confirmed 05/04/23] hydrocodone 10 mg-acetaminophen 325 mg tablet 10 - 325 mg PO QID PRN Pain 01/20/18 [History Confirmed 05/04/23] insulin detemir U-100 100 unit/mL subcutaneous solution (Levemir U-100 Insulin) 50 units subcut BID 01/20/18 [History Confirmed 05/04/23] losartan 100 mg tablet 100 mg PO DAILY 01/20/18 [History Confirmed 05/04/23] metoprolol tartrate 25 mg tablet 50 mg PO BID 01/20/18 [History Confirmed 05/04/23] oxybutynin chloride 5 mg tablet 5 mg PO BID 01/20/18 [History Confirmed 05/04/23] zolpidem 5 mg tablet 5 mg PO HS PRN Insomnia 01/20/18 [History Confirmed 05/04/23] gabapentin 300 mg capsule 600 mg PO BID 02/24/18 [History Confirmed 05/04/23] aspirin 81 mg tablet,delayed release (Aspir-Low) 81 mg PO DAILY 06/01/19 [History Confirmed 05/04/23] cholecalciferol (vitamin D3) 50 mcg (2,000 unit) capsule 4,000 unit PO DAILY 06/01/19 [History Confirmed 05/04/23] clopidogrel 75 mg tablet (Plavix) 75 mg PO DAILY 06/01/19 [History Confirmed 05/04/23] cyclobenzaprine 10 mg tablet 10 mg PO TID PRN Spasms 06/01/19 [History Confirmed 05/04/23] sertraline 50 mg tablet (Zoloft) 50 mg PO DAILY 06/01/19 [History Confirmed 05/04/23] insulin lispro 100 unit/mL subcutaneous solution 40 units subcut DIRECTED 06/09/19 [History Confirmed 05/04/23] potassium chloride 20 mEq tablet,extended release 20 meq PO DAILY #30 tabs 06/11/19 [Rx Confirmed 05/04/23] rosuvastatin 20 mg tablet (Crestor) 40 mg PO HS 30 days #30 tabs 06/11/19 [Rx Confirmed 05/04/23] furosemide 40 mg tablet 80 mg PO DAILY.8A 05/04/23 [History Confirmed 05/04/23] insulin detemir U-100 100 unit/mL subcutaneous solution (Levemir U-100 Insulin) 50 unit subcut BID 05/04/23 [History Confirmed 05/04/23] ranolazine 500 mg tablet,extended release,12 hr 500 mg PO BID 05/04/23 [History Confirmed 05/04/23] Exam Physical Exam Vital Signs: Temp Pulse Resp BP Pulse Ox O2 Del Method 98.1 F 64 18 132/59 L 91 L Room Air 05/04/23 16:38 05/04/23 19:00 05/04/23 19:00 05/04/23 19:00 05/04/23 19:00 05/04/23 19:00 Narrative: CONST- Appears well -developed and well nourished. Morbidly obese HEAD - Normocephalic and atraumatic EENT-Sclera nonicteric, conjunctive are non-erythemic, moist oral mucosa, pharynx clear NECK-Supple, no cervical lymphadenopathy CARDIAC-bradycardia, regular rhythm, S1 & S2. PULM-diminished without wheeze or rhonchi, fine crackles to bibasilar bases, RA,no accessory muscle use or cough noted ABD - Soft. Bowel sounds are normal. Softly distended. No tenderness EXTREM-+4 pitting edema BLE and groin, multiple scabbed areas and redness to LLE SKIN- W/D good turgor, wounds to LLE, redness and odor to abdominal fold MS- MAEX4 spontaneously with equal with equal strength, uses cane NEURO- A&Ox3 speech clear and tongue midline, equal facial symmetry, no focal motor deficits PSYCH-Mood, affect, and behavior appropriate Results Lab Results Labs: Laboratory Last Values Corrected WBC 6.4 X10E3/uL (3.8-11.6) 05/04/23 17:27 Uncorrected WBC Count 6.4 x10E3/uL (3.8-11.6) 05/04/23 17:27 RBC 3.77 X10E6/uL (3.60-5.00) 05/04/23 17:27 Hgb 11.7 g/dL (11.8-15.4) L 05/04/23 17: Hct 35.1 % (34.0-46.4) 05/04/23 17: MCV 93.3 fl (80-100) 05/04/23 17: MCH 31.0 pg (24.7-34.3) 05/04/23 17:27 MCHC 33.2 g/dL (32.0-35.0) 05/04/23 17:27 RDW 14.0 % (11.9-15.3) 05/04/23 17: Plt Count 242 x10E3/uL (150-450) 05/04/23 17: MPV 7.8 fl (6.3-10.7) 05/04/23 17:27 Neut % (Auto) 62.4 % (.) 05/04/23 17: Lymph % (Auto) 23.0 % (.) 05/04/23 17:27 [place] % (Auto) 9.8 % (.) 05/04/23 17:27 Eos % (Auto) 3.9 % (.) 05/04/23 17:27 Baso % (Auto) 0.9 % (.) 05/04/23 17:27 Nucleat RBC Rel Count 0.0 /100 WBC (0-0.5) 05/04/23 17:27 Neut # (Auto) 4.0 x10E3/uL (1.8-7.7) 05/04/23 17: Lymph # (Auto) 1.5 x10E3/uL (1.00-4.8) 05/04/23 17:27 [place] # (Auto) 0.6 x10E3/uL (0.0-0.8) 05/04/23 17: Eos # (Auto) 0.3 x10E3/uL (0.0-0.45) 05/04/23 17: Baso # (Auto) 0.1 x10E3/uL (0.0-0.2) 05/04/23 17: Monocyte Dist Width 19.38 % (0.00-20.00) 05/04/23 17:27 PHA Creatinine Clear 54.97 05/04/23 17:27 Sodium 143 mmol/L (136-145) 05/04/23 17: Potassium 3.9 mmol/L (3.5-5.1) 05/04/23 17: Chloride 106 mmol/L (98-107) 05/04/23 17: Carbon Dioxide 30.1 mmol/L (21.0-31.0) 05/04/23 17: Anion Gap 10.8 mEq/L (6.0-15.0) 05/04/23 17:27 BUN 29 mg/dL (7-25) H 05/04/23 17:27 Creatinine 1.44 mg/dL (0.60-1.20) H 05/04/23 17:27 Est GFR (CKD-EPI) 39.618 mL/Min 05/04/23 17: Glucose 94 mg/dL (70-100) 05/04/23 17: Calcium 9.5 mg/dL (8.6-10.3) 05/04/23 17: Total Bilirubin 0.4 mg/dl (0.3-1.0) 05/04/23 17:27 AST 17 U/L (13-39) 05/04/23 17:27 ALT 13 U/L (7-52) 05/04/23 17:27 Alkaline Phosphatase 58 U/L (34-104) 05/04/23 17:27 Total Creatine Kinase 50 U/L (30-223) 05/04/23 17:27 Troponin I High Sens 6.4 pg/mL (0.0-15.0) 05/04/23 19:03 B-Natriuretic Peptide 115.0 pg/mL (5-100) H 05/04/23 17:27 Total Protein 6.6 gm/dL (6.4-8.9) 05/04/23 17:27 Albumin 3.8 gm/dL (3.5-5.7) 05/04/23 17:27 Globulin 2.8 gm/dL 05/04/23 17:27 Albumin/Globulin Ratio 1.4 05/04/23 17:27 Urine Color Yellow (Yellow) 05/04/23 18:34 Urine Appearance Clear (Clear) 05/04/23 18:34 Urine pH 5.0 (5.0-9.0) 05/04/23 18:34 Ur Specific [place] 1.012 (1.001-1.030) 05/04/23 18:34 Urine Protein Negative mg/dL (Negative) 05/04/23 18:34 Urine Glucose (UA) Normal mg/dL (Normal) 05/04/23 18:34 Urine Ketones Negative (Negative) 05/04/23 18:34 Urine Occult Blood Negative (Negative) 05/04/23 18:34 Urine Nitrite Negative (Negative) 05/04/23 18:34 Urine Bilirubin Negative (Negative) 05/04/23 18:34 Urine Urobilinogen Normal mg/dL (Normal) 05/04/23 18:34 Ur Leukocyte Esterase 1+ (Negative) H 05/04/23 18:34 Urine RBC 0-1 /HPF (0-4) 05/04/23 18:34 Urine WBC 3-4 /HPF (0-4) 05/04/23 18:34 Ur Squamous Epith Cells 1-2 /HPF (0-2) 05/04/23 18:34 Urine Bacteria None seen (None Seen) 05/04/23 18:34 Hyaline Casts 0-8 /LPF (0-8) 05/04/23 18:34 Assessment & Plan Assessment/Plan (1) Acute on chronic diastolic heart failure: (2) Diabetes mellitus: (3) HTN (hypertension): (4) GERD (gastroesophageal reflux disease): Plan Acute on chronic diastolic heart failure?failed outpatient increase of Lasix ? Echo in a.m. ? Cardiology consult ? Diuresis, strict I&O, may place Garrett for accurate I&O, daily weight Chronic conditions T2DM?fingersticks ACHS, SSIC, resume home meds?Levemir, insulin lispro with meals, A1c in a.m. HTN?monitor, resume home meds?losartan, metoprolol, hold amlodipine GERD?resume home meds?famotidine Left lower extremity wound?consult wound nurse for dressing changes DVT PPx- SCDs, compression socks, enoxaparin Diet order-1800 ADA, 2 g sodium, heart healthy CODE STATUS-full code as discussed with patient I personally saw this patient on the day of the encounter, reviewed the history,performed the da silva elements of the exam, formulated the plan of care and confirmed the Nurse Practitioner's assessment and plan. - Medardo Darling DO IP vs OBS Justification Based on differential dx, clinical care plan, and risk of adverse events, if untreated, in my clinical judgement this patient requires an acute care setting as: INPATIENT because of an expectation of an over 2 midnight stay. Estimated length of stay (# of days): 3 Documented By: Davina Grimes APRN 05/04/232046 Signed By: <Electronically signed by SINA Grimes> 05/04/234 <Electronically signed by Medardo Darling DO> 05/05/23 0506 [facility] Work Phone: 1(311) 556-448205-18-2023 Hospital course Narrative* Beth Taylor APRN-SUPERVISOR [employer]PERATIONS - 03/16/2023 9:50 AM EDT Send Summary: Discharge Summary Providers: Provider Role Provider Name Attending Joceline Ortega Referring Joceline Ortega Primary Latrice Bergeron Note Recipients: Latrice Bergeron MD - [id number] [] Joceline Ortega MD - [id number] [preferred] Discharge: Summary: Admission Date: .15-Mar-2023 11:17:00 Discharge Date: 16-Mar-2023 Attending Physician at Discharge: Joceline Ortega Admission Reason: angina, class 3 Final Discharge Diagnoses: Angina, class III Procedures: Date: 15-Mar-2023 16:49:00 Procedure Name: LHC/Cors/LVgram/IFR of left Circumflex Condition at Discharge: Satisfactory Disposition at Discharge: .Home Vital Signs: T P R BP MAP SpO2 Value 36.3 49 18 154/67 96 93% Date/Time 03/16 8:00 03/16 8:00 5 8:00 5 8:00 03/16 8:00 03/16 8:00 Range (35.9C - 36.3C ) (46 - 49 ) (16 - 18 ) (142 - 185 )/ (63 - 77 ) (91 - 111 ) (92% - 96% ) As of 15-Mar-2023 21:47:00, patient is on 2 L/min of oxygen via nasal cannula. Date: Weight/Scale Type: Height: 15-Mar-2023 12:00 145.6 kg 159.8 cm Hospital Course: 67-year-old female with history of class III angina admitted 03/15/2023 for elective left heart catheterization with Dr. Ortega. Initially attempted right radial procedure without success, then went toright femoral approach. See cardiac cath report per Dr. Ortega. Plan for medical management. At thistime patient denies discomfort right groin. Pressure dressing removed. No hematoma or bleeding noted at site. Bilateral pedal pulses palpable. Patient to follow-up with Dr. Ortega in 3 to 4 weeks in the [facility] office. Post procedure potential complication, activity restrictions, medications, and follow up reviewed with patient. Total time for discharge 36 minutes. Discharge Information: and Continuing Care: Lab Results - Pending: None Radiology Results - Pending: None Discharge Instructions: . Follow Up Appointments: Follow-Up Appointment 01: Physician/Dept/Service: Dr Ortega Scheduled Date/Time: 10-Apr-2023 14:30 Location: [facility] office Discharge Medications: Home Medication amLODIPine 5 mg [...] 3 times a day (with meals) In additionto sliding scale NovoLOG 100 units/mL subcutaneous solution - 20 unit(s) subcutaneous once a day (at bedtime) In addition to sliding scale PRN Medication zolpidem 5 mg oral tablet - 1 tab(s) orally once a day (at bedtime), As Needed Nitrostat 0.4 mg sublingual tablet - 1 tab(s) sublingual every 5 minutes, As Needed [place] 10 mg-325 mg oral tablet - 1 tab(s) orally every 4 hours, As Needed cyclobenzaprine 10 mg oral tablet - 1 tab(s) orally once a day, As Needed DNR Status: Code Status Code Status order at time of discharge: Full Code Electronic Signatures: Beth Taylor ([employer]-SUPERVISOR [employer]) (Signed 16-Mar-2023 10:00) Authored: Send Summary, Summary Content, Ongoing Care, DNR Status, Note Completion Last Updated: 16-Mar-2023 10:00 by Beth Taylor ([employer]OR [employer]) documented in this [facility] Work Phone: 1(387) 803-872405-18-2023 History of Present illness Narrative* Coreen Joya, ARELY - 03/16/2023 8:31 AM EDT Service: Cardiology Subjective Data: NAMRATA JACK is a 67 year old Female who is Hospital Day # 2. MRS JACK IS DOING MUCH BETTER TODAY, NO CHEST PAIN OR DYSPNEA, SHE HAS BEEN UP IN THE ROOM AND USESA CANE NORMALLY IS AT HER NORM AT THIS TIME. Objective Data: Objective Information: T P R BP MAP SpO2 Value 36.3 49 18 154/67 96 93% Date/Time 03/16 8:00 03/16 8:00 03/16 8:00 03/16 8:00 03/16 8:00 03/16 8:00 Range (35.9C - 36.3C ) (46 - 49 ) [...] reviewed these laboratory results: Glucose_POCT Trending View Result 16-Mar-2023 06:49:00 15-Mar-2023 21:30:00 Glucose-POCT 179 H 236 H Basic Metabolic Panel 16-Mar-2023 04:24:00 Result Value Glucose, Serum 242 H NA 138 K 4.1 CL 103 Bicarbonate, Serum 29 Anion Gap, Serum 10 BUN 34 H CREAT 1.38 H GFR Female 42 A Calcium, Serum 8.5 L Activated Clotting Time Low Range Trending View Result 15-Mar-2023 14:43:00 15-Mar-2023 14:33:00 15-Mar-2023 14:31:00 Activated Clotting Time-Low Range 226 H 221 H 69 L Radiology Results: Results: No Results have been selected. Please select Results from the Available Results list before markingas Reviewed. Conclusion: CONCLUSIONS: 1. Right dominant system. Right coronary artery arises from the right sinus of Valsalva. There is 20% diffuse disease, in addition the mid RCA has about 40 to 50% smooth stenosis. Posterior descending artery and posterolateral ventricular branch have mild luminal irregularities Left main coronary artery arises from the left sinus of Valsalva, bifurcates into the left anteriordescending artery and the left circumflex artery Left [...] Left Heart Cath (visualization of coronaries) and LV-27669; Moderate Sedation Services initial 15 minutes patient >5 years-67478; Moderate Sedation Services 1st additional 15 minutes patient >5years-91464; Moderate Sedation Services 2nd additional 15 minutes patient >5 years-27715; Moderate Sedation Services 3rd additional 15 minutes patient >5 years-67469; Complicated/Unusual Procedure- MOD22; Angiography, Extremity,uni,S&I (PER)-97411; FFR, initial Vessel (PCI)-59189 ICD 10 Codes: I25.111-Atherosclerotic heart disease of [place] coronary artery with angina pectoris with documented spasm 11309 Joceline Ortega MD Performing Physician cc Report to: JOCELINE ORTEGA cc Report to: [id number] Joceline Ortega MD cc Report to: Chris Final Cardiac Catheterization Lab Procedures [Mar 15 2023 7:01PM] Assessment and Plan: Comorbidities: Comorbidity Other Code Status: Code Status Full Code Impression 1: CAD, DIFFUSE DISTAL LAD 99% WITH COLLATERALS TO THE D1 Impression 2: HYPERTENSION Impression 3: DYSLIPIDEMIA Impression 4: DIABETES Impression 5: CKD Attestation: Note Completion: I am a: Advanced Practice Provider Attending Only - Shared Visit with Advanced Practice Provider This is a shared visit. I have reviewed the Advanced Practice Provider?s encounter note, approve the Advanced Practice Provider?s documentation, and provide the following additional information from my personal encounter. Comments/ Additional Findings . Electronic Signatures: Coreen Joya ([employer]PER[employer]OR [employer]) (Signed 16-Mar-2023 08:45) Authored: Service, Subjective Data, Objective Data, Assessment and Plan, Note Completion Last Updated: 22-Mar-2023 08:19 by Alberta Pichardo (DATA QUAL ASST) [facility] Work Phone: 1(979) 255-511105-17-2023 History and physical note* Joceline Ortega MD - 03/15/2023 4:48 PM EDT History & Physical Reviewed: I have reviewed the History and Physical dated: 06-Mar-2023 History and Physical reviewed and relevant findings noted. Patient examined to review pertinent physical findings.: No significant changes Home Medications Reviewed: changes noted Allergies Reviewed: no changes noted Airway/Sedation Assessment: Oropharyngeal Classification Class III ASA PS Classification ASA III Sedation Plan moderate sedation ERAS (Enhanced Recovery After Surgery): ERAS Patient: no Consent: COVID-19 Consent: COVID-19 Risk Consent Surgeon has reviewed da silva risks related to the risk of jolly COVID-19 and if they contract COVID-19 what the risks are. Electronic Signatures: Joceline Ortega) (Signed 15-Mar-2023 16:49) Authored: History & Physical Reviewed, Airway/Sedation, ERAS, Consent, Note Completion Last Updated: 15-Mar-2023 16:49 by Joceline Ortega) [facility] Work Phone: [phone]) [phone] History and physical note* Joceline Ortega MD - 03/15/2023 4:48 PM EDT History & Physical Reviewed: I have reviewed the History and Physical dated: 06-Mar-2023 History and Physical reviewed and relevant findings noted. Patient examined to review pertinent physical findings.: No significant changes Home Medications Reviewed: changes noted Allergies Reviewed: no changes noted Airway/Sedation Assessment: Oropharyngeal Classification Class III ASA PS Classification ASA III Sedation Plan moderate sedation ERAS (Enhanced Recovery After Surgery): ERAS Patient: no Consent: COVID-19 Consent: COVID-19 Risk Consent Surgeon has reviewed da silva risks related to the risk of jolly COVID-19 and if they contract COVID-19 what the risks are. Electronic Signatures: Joceline Ortega) (Signed 15-Mar-2023 16:49) Authored: History & Physical Reviewed, Airway/Sedation, ERAS, Consent, Note Completion Last Updated: 15-Mar-2023 16:49 by Joceline Ortega) documented in this [facility] Work Phone: 1(141) 439-443002-22-2022 NoteEvaluation is consistent with an acute inflammatory pattern.[facility] Medical SpecialistComment on above:Order Comment: [facility] Testing performed at: [facility], [facility], [address] [place] [address], [address] [place] [address], [id number], Chief Mate: Kobi Colmenares MD [facility] Collection Date/Time: [facility] Results Received Date/Time: [facility] Reported Date/Time: [id number] Comment: Evaluation reveals a faint restricted band (M-spike) migrating in the gamma globulin region. If not already requested, Immunofixation should be considered.Performed By: #### 549, [id number], [id number] #### [facility] Default [address] [place] [id number] note Author Pinky Kern [facility] May 28, 2023 3:04pm Note Date/Time May 28, 2023 3:00 pm [facility] [address] [place] [address] Cardiology Consult Note Signed Patient: Namrata Jack MR#: [id number] : 1955 Acct:[id number] Age/Sex: 67 / F Adm Date: 3 Loc: Room: [address] [place] [address] Type: ADM IN Attending Dr: Rohit Francis MD Copies to: MD Pinky Harrison MD Robert L Hill, MD~ Cardiology HPI History of Present Illness Consult Date: 05/28/23 Reason for Consult: Cardiac consultation requested for evaluation for chest pain and elevated cardiac enzyme HPI: Ms. Jack is a 67 year old female known to our practice. She is known to have history of coronary artery disease status post multivessel PCI including the LADand RCA remotely. She underwent cardiac catheterization back in 2018 showing mild diffuse disease and then repeat in February 2023 showing mild left circumflex and RCA disease with severe disease of the distal LAD that appeared to be subtotal occluded medical therapy was recommended. Patient brought to the hospital because of complaint of recurrent episode of nausea vomiting and multiple episodes of diarrhea she reported also few episode of chest pain for which she took nitroglycerin with resolution. She presented to the hospital andwas noted to be febrile her work-up were suggestive of urinary tract infection she started on antibiotic. She remains weak and fatigued. She remains febrile. She denies recurrence of her chest pain. She is hemodynamically stable. Serial enzymes showed a rise of her troponin up to about 400. EKG was nonacute. Review of Systems Review of Systems All other systems reviewed & are negative unless noted below or in HPI Constitutional Constitutional: Reports fatigue and Reports weakness Eyes Eyes: Reports system reviewed and no additional complaints, except as documented ENT Ears, Nose, Mouth, and Throat: Reports system reviewed and no additional complaints, except as documented Cardiovascular Cardiovascular: Reports chest pain Respiratory Respiratory: Reports dyspnea on exertion Gastrointestinal Gastrointestinal: Reports system reviewed and no additional complaints, except as documented Genitourinary Genitourinary: Reports system reviewed and no additional complaints, except as documented Musculoskeletal Musculoskeletal: Reports system reviewed and no additional complaints, except asdocumented Integumentary/Breasts Skin/Breast: Reports system reviewed and no additional complaints, except as documented Neurologic Neurologic: Reports system reviewed and no additional complaints, except as documented Psychiatric Psychiatric: Reports system reviewed and no additional complaints, except as documented Endocrine Endocrine: Reports system reviewed and no additional complaints, except as documented Hematologic/Lymphatic Hematologic/Lymphatic: Reports system reviewed and no additional complaints, except as documented PMFSH Vaccinated for COVID-19?: Unknown Medical History Asthma allergy induced CAD (coronary artery disease) Diabetes mellitus Diverticulosis GERD (gastroesophageal reflux disease) HTN (hypertension) Morbid obesity Morbid obesity with BMI of 50.0-59.9, adult Neuropathy Osteoarthritis Pickwickian syndrome Surgical History History of back surgery Hx of appendectomy Hx of cholecystectomy Hx of heart artery stent X6 Hx of hysterectomy Hx of knee surgery Hx of neck surgery Family History Father CAD (coronary artery disease) AMI (acute myocardial infarction) Sister CAD (coronary artery disease) AMI (acute myocardial infarction) Sister CAD (coronary artery disease) AMI (acute myocardial infarction) Brother CAD (coronary artery disease) Social History Smoking Status: Never smoker Tobacco Type: cigarettes Substance Use Type: None Meds Medications and Allergies Allergies Penicillins Allergy (Severe, Verified 05/27/23 22:27) Anaphylaxis IV Dye Allergy (Severe, Uncoded 05/27/23 22:27) Anaphylaxis Home Medications hydrocodone 10 mg-acetaminophen 325 mg tablet 10 - 325 mg PO QID PRN Pain 01/20/18 [History Confirmed 05/28/23] insulin detemir U-100 100 unit/mL subcutaneous solution (Levemir U-100 Insulin) 40 units subcut HS 01/20/18 [History Confirmed 05/28/23] oxybutynin chloride 5 mg tablet 5 mg PO BID 01/20/18 [History Confirmed 05/28/23] zolpidem 5 mg tablet 5 mg PO HS PRN Insomnia 01/20/18 [History Confirmed 05/28/23] gabapentin 300 mg capsule 600 mg PO BID 02/24/18 [History Confirmed 05/28/23] aspirin 81 mg tablet,delayed release (Aspir-Low) 81 mg PO DAILY 06/01/19 [History Confirmed 05/28/23] cholecalciferol (vitamin D3) 50 mcg (2,000 unit) capsule 4,000 unit PO DAILY 06/01/19 [History Confirmed 05/28/23] clopidogrel 75 mg tablet (Plavix) 75 mg PO DAILY 06/01/19 [History Confirmed 05/28/23] cyclobenzaprine 10 mg tablet 10 mg PO TID PRN Spasms 06/01/19 [History Confirmed 05/28/23] sertraline 50 mg tablet (Zoloft) 100 mg PO DAILY 06/01/19 [History Confirmed 05/28/23] insulin lispro 100 unit/mL subcutaneous solution 40 units subcut DIRECTED 06/09/19 [History Confirmed 05/28/23] potassium chloride 20 mEq tablet,extended release 20 meq PO DAILY #30 tabs 06/11/19 [Rx Confirmed 05/28/23] rosuvastatin 20 mg tablet (Crestor) 40 mg PO HS 30 days #30 tabs 06/11/19 [Rx Confirmed 05/28/23] insulin detemir U-100 100 unit/mL subcutaneous solution (Levemir U-100 Insulin) 50 unit subcut DAILY.0730A 05/04/23 [History Confirmed 05/28/23] ranolazine 500 mg tablet,extended release,12 hr 500 mg PO BID 05/04/23 [History Confirmed 05/28/23] famotidine 20 mg tablet 20 mg PO QHS 30 days #30 tabs 05/09/23 [Rx Confirmed 05/28/23] losartan 25 mg tablet 25 mg PO DAILY 30 days #30 tabs 05/09/23 [Rx Confirmed 05/28/23] metoprolol tartrate 25 mg tablet 12.5 mg PO BID 30 days #30 tabs 05/09/23 [Rx Confirmed 05/28/23] spironolactone 25 mg tablet 25 mg PO BID 30 days #60 tabs 05/09/23 [Rx Confirmed 05/28/23] furosemide 40 mg tablet 40 mg PO BID 05/28/23 [History Confirmed 05/28/23] Exam Physical Exam Vital Signs: Temp Pulse Resp BP Pulse Ox O2 Del Method 100.5 F H 86 18 118/69 94 L Room Air 05/28/23 12:00 05/28/23 12:00 05/28/23 12:00 05/28/23 12:00 05/28/23 12:00 05/28/23 12:00 Const General: cooperative, no acute distress, well developed, acute distress mild andin distress Nutritional Appearance: obese HEENT Head: atraumatic Mouth: oral mucosae normal Eyes General: appearance normal, both eyes and all related structures Pupils: PERRL Neck Neck: normal visual inspection, supple and no lymphadenopathy noted Neck mass: No Thyroid: thyroid normal Carotids: normal carotid upstroke Chest Chest palpation & inspection: normal inspection of the chest Resp Effort & Inspection: normal respiratory effort Auscultation: clear to auscultation bilaterally Cardio Palpation: normal PMI Rate: regular rate Rhythm: regular rhythm Heart Sounds: S1 normal, S2 normal and murmur systolic II/ and at the left sternal border GI Palpation: soft and no hepatosplenomegaly Percussion: normal to percussion Auscultation: normal bowel sounds Skin General: no rashes or lesions noted and dry skin Neuro General: patient alert, patient awake, patient oriented x3, tone normal and moves all extremities Extrem General: full ROM, capillary refill normal and no clubbing, cyanosis or edema Psych Mental Status: mental status grossly normal Results Labs 05/28/23 05:51 05/28/23 05:51 Lab results: Cardiac Enzymes 05/27/23 05/27/23 05/28/23 Range/Units 22:42 22:42 05:51 AST 17 22 (13-39) U/L Total Creatine Kinase 137 (30-223) U/L CBC 05/27/23 05/28/23 Range/Units 22:42 05:51 RBC 4.12 4.23 (3.60-5.00) X10E6/uL Hgb 12.8 13.2 (11.8-15.4) g/dL Hct 38.5 39.5 (34.0-46.4) % Plt Count 264 222 (150-450) x10E3/uL Neut # (Auto) 11.2 H 7.1 (1.8-7.7) x10E3/uL Lymph # (Auto) 0.4 L 0.6 L (1.00-4.8) x10E3/uL [place] # (Auto) 0.2 0.2 (0.0-0.8) x10E3/uL Eos # (Auto) 0.0 0.0 (0.0-0.45) x10E3/uL Baso # (Auto) 0.0 0.0 (0.0-0.2) x10E3/uL Comprehensive Metabolic Panel 05/27/23 05/28/23 Range/Units 22:42 05:51 Sodium 131 L 131 L (136-145) mmol/L Potassium 4.2 4.1 (3.5-5.1) mmol/L Chloride 93 L 95 L (98-107) mmol/L Carbon Dioxide 22.2 24.5 (21.0-31.0) mmol/L BUN 31 H 29 H (7-25) mg/dL Creatinine 1.83 H 1.76 H (0.60-1.20) mg/dL Glucose 376 H 296 H (70-100) mg/dL Calcium 9.1 8.8 (8.6-10.3) mg/dL AST 17 22 (13-39) U/L ALT 13 12 (7-52) U/L Alkaline Phosphatase 54 51 (34-104) U/L Total Protein 7.1 6.8 (6.4-8.9) gm/dL Albumin 3.8 3.9 (3.5-5.7) gm/dL Intake and Output 05/27/23 05/28/23 05/28/23 23:59 07:59 15:59 Intake Total 3100 / 3440 340 / 3440 Output Total 400 / 400 Balance 2700 / 3040 340 / 3040 Intake: IV 2100 / 2100 Magnesium Sulf 2Gm-*Swfi* 2 gm 50 / 50 In 50 ml @ 200 mls/hr IV ONCE ONE Rx#:[id number] Sodium Chloride 0.9% 1,000 ml 2 2000 / 2000 ,000 ml @ 999 mls/hr IV .Q2H1M ONE Rx#:[id number] cefTRIAXone 1GM-*NS* 1 gm In 50 50 / 50 ml @ 100 mls/hr IV ONCE ONE Rx #:[id number] Oral 1000 / 1240 240 / 1240 Other 100 / 100 Output: Urine 400 / 400 Other: # Unmeasured Voids 200 # Incontinent Voids 2 Weight 148.778 kg 151.5 kg Date of Last Bowel Movement 05/26/23 05/26/23 Patient Weight 05/28/23 23:59 Weight 151.5 kg EKG Interpretations EKG Attestation EKG: I reviewed this ECG and interpreted as documented below: (Normal sinus rhythm without acute ST-T changes) A&P - Cardiology (1) Acute UTI: Code(s): N39.0 - Urinary tract infection, site not specified Plan Assessment 1. Acute coronary syndrome I suspect likely due to type II myocardial infarction. Patient is known to have a history of severe disease affecting the apical segment of the LAD. Her last heart cath was 2 months ago. She had no recurrence of her chest pain. She appears to be hemodynamically stable. Her EKG is nonacute. 2. Febrile illness treated for presumed urinary tract infection the patient hadsignificant GI symptomatology including recurrent nausea and vomiting 3. Mild aortic stenosis 4. Recurrent nausea and vomiting seem to have improved 5. Hypertension 6. Hyperlipidemia 7. Diabetes mellitus 8. Stage III chronic kidney disease 9. Morbid obesity with BMI 59 Plan 1. Continue aspirin, Plavix, metoprolol, Ranexa and heparin 2. Her febrile illness being addressed by the hospitalist service 3. Doubt need to repeat ischemic evaluation considering recent cardiac catheterization 4. Continue with aggressive approach risk factor modification Documented By: Pinky Kern MD 05/28/23 1456 Signed By: <Electronically signed by MD Pinky Kern> 05/28/23 1504 [facility] Work Phone: Consult note Author Deep Eubanks [facility] May 29, 2023 9:40am Note Date/Time May 29, 2023 9:40 am [facility] [address] [place] [address] Infect. Disease Consult Note Signed Patient: Namrata Jack MR#: [id number] : 1955 Acct:[id number] Age/Sex: 67 / F Adm Date: 3 Loc: Room: [address] [place] [address] Type: ADM IN Attending Dr: Fahad Dobson MD Copies to: MD Deep Acevedo MD Robert L Hill, MD~ HPI Data of Consult Consult date: 05/29/23 Requesting Physician: Fahad Dobson MD Primary Care Provider: Latrice Bergeron MD Consult Narrative History of present illness: Ms. Jack is a 67 year old female who tells me she came into the hospital after 2to 3 hours of vomiting at home. She had some diarrhea at home but is not had diarrhea since she got to the hospital. She denied any significant abdominal pain but was sore after vomiting. Seems the main reason she seem to be admitted was because of some chest pain that she also had reported that relieved with nitro. She had a fever when she presented here to 102. She has defervesced. Empiric ceftriaxone has been started. Concern over urinary tract infection was raised. To date 1 blood culture is growing presumptive strep viridans. She is feeling better and has not vomited in the last 24 hours. Her bowel movement last night she states was normal and formed. She still feels nauseated and queasy. She denies any other localizing complaints. She has a wound on her left lower extremity that is documented but does not appear infected based on documentation by the hospitalist. Both his lower extremities are wrapped today. CC: Fahad Dobson MD Review of Systems Review of Systems All other systems reviewed & are negative unless noted below or in HPI [facility] Attestation Statement: The following information was validated with the patient. Vaccinated for COVID-19?: Unknown Medical History Asthma allergy induced CAD (coronary artery disease) Diabetes mellitus Diverticulosis GERD (gastroesophageal reflux disease) HTN (hypertension) Morbid obesity Morbid obesity with BMI of 50.0-59.9, adult Neuropathy Osteoarthritis Pickwickian syndrome Surgical History History of back surgery Hx of appendectomy Hx of cholecystectomy Hx of heart artery stent X6 Hx of hysterectomy Hx of knee surgery Hx of neck surgery Family History Father CAD (coronary artery disease) AMI (acute myocardial infarction) Sister CAD (coronary artery disease) AMI (acute myocardial infarction) Sister CAD (coronary artery disease) AMI (acute myocardial infarction) Brother CAD (coronary artery disease) Social History Smoking Status: Never smoker Tobacco Type: cigarettes Substance Use Type: None Allergies and Medications Allergies and Active Meds Allergies Penicillins Allergy (Severe, Verified 05/27/23 22:27) Anaphylaxis IV Dye Allergy (Severe, Uncoded 05/27/23 22:27) Anaphylaxis Active Medications Acetaminophen (Acetaminophen 325 Mg Tablet) 650 mg PO Q4H PRN PRN Reason: Pain Scale 1 - 5 Stop: 05/27/24 04:09 Last Admin: 05/28/23 09:02 Dose: 650 mg Hydrocodone Bitart/Acetaminophen (Hydrocodone/Acetaminophen 10-325 Mg Tablet) 1tab PO QID PRN PRN Reason: Pain Last Admin: 05/29/23 06:31 Dose: 1 tab Albuterol (Albuterol Neb 2.5 Mg/3 Ml Vial.Neb) 2.5 mg INHALATION Q2H PRN PRN Reason: Shortness Of Breath Stop: 05/27/24 04:09 Aspirin (Aspirin 81 Mg Tablet.) 81 mg PO DAILY TONY Stop: 05/27/24 08:59 Last Admin: 05/29/23 08:46 Dose: 81 mg Atorvastatin Calcium (Atorvastatin 80 Mg Tablet) 80 mg PO HS TONY Stop: 05/27/24 21:59 Last Admin: 05/28/23 21:10 Dose: 80 mg Clopidogrel Bisulfate (Clopidogrel Bisulfate 75 Mg Tablet) 75 mg PO DAILY TONY Stop: 05/27/24 08:59 Last Admin: 05/29/23 08:46 Dose: 75 mg Cyclobenzaprine HCl (Cyclobenzaprine 10 Mg Tablet) 10 mg PO TID PRN PRN Reason: Spasms Stop: 05/27/24 04:07 Dextrose (Dextrose 50% In Water 25 Gm/50 Ml Syringe) 0 gm IV-PUSH PRN PRN PRN Reason: Hypoglycemia Stop: 05/27/24 04:09 Docusate Sodium (Docusate 100 Mg Capsule) 200 mg PO BID PRN PRN Reason: Constipation Stop: 05/27/24 04:09 Last Admin: 05/28/23 18:21 Dose: 200 mg Enoxaparin Sodium (Enoxaparin 150 Mg/Ml Syringe) 150 mg SUBCUT Q12HR TONY Stop: 05/27/24 08:59 Last Admin: 05/29/23 08:47 Dose: 150 mg Famotidine (Famotidine 20 Mg Tablet) 20 mg PO QHS TONY Stop: 05/27/24 21:59 Last Admin: 05/28/23 21:10 Dose: 20 mg Gabapentin (Gabapentin 300 Mg Capsule) 600 mg PO BID TONY Stop: 05/27/24 08:59 Last Admin: 05/29/23 08:46 Dose: 600 mg Glucose (Dextrose 40% Gel 15 Gm Tube) 0 gm PO PRN PRN PRN Reason: Hypoglycemia Stop: 05/27/24 04:09 Ceftriaxone Sodium (Rocephin) 2 gm in 50 mls @ 100 mls/hr IV Q24H [facility] Last Admin: 05/28/23 16:00 Dose: 100 mls/hr Insulin Aspart (Insulin Aspart 300 Units/3 Ml Insuln.Pen) 0 units SUBCUT TID.WM.HS [facility]; Protocol Stop: 05/27/24 07:59 Last Admin: 05/29/23 08:49 Dose: 1 units Insulin Aspart (Insulin Aspart 300 Units/3 Ml Insuln.Pen) 40 units SUBCUT TID.WITH.MEALS [facility] Stop: 05/27/24 07:59 Last Admin: 05/29/23 08:49 Dose: 40 units Insulin Glargine (Insulin Glargine 300 Units/3 Ml Insuln.Pen) 50 units SUBCUT DAILY.0730A [facility] Stop: 05/27/24 07:29 Last Admin: 05/29/23 08:49 Dose: 50 units Insulin Glargine (Insulin Glargine 300 Units/3 Ml Insuln.Pen) 40 units SUBCUT HS [facility] Stop: 05/27/24 21:59 Last Admin: 05/28/23 21:12 Dose: Not Given Metoprolol Tartrate (Metoprolol Tartrate 12.5 Mg Tablet) 12.5 mg PO BID [facility] Stop: 05/27/24 08:59 Last Admin: 05/29/23 08:46 Dose: 12.5 mg Oxybutynin Chloride (Oxybutynin Chloride 5 Mg Tablet) 5 mg PO BID [facility] Stop: 05/27/24 08:59 Last Admin: 05/29/23 08:46 Dose: 5 mg Prochlorperazine Edisylate (Prochlorperazine Edisylate 10 Mg/2 Ml Vial) 5 mg IV- PUSH Q4H PRN PRN Reason: Nausea And Vomiting Stop: 05/27/24 04:09 Last Admin: 05/29/23 06:31 Dose: 5 mg Ranolazine (Ranolazine 500 Mg Tab.Er.12h) 500 mg PO BID [facility] Stop: 05/27/24 08:59 Last Admin: 05/29/23 08:46 Dose: 500 mg Sertraline HCl (Sertraline 100 Mg Tablet) 100 mg PO DAILY [facility] Stop: 05/27/24 08:59 Last Admin: 05/29/23 08:46 Dose: 100 mg Spironolactone (Spironolactone 25 Mg Tablet) 25 mg PO BID [facility] Stop: 07/29/24 08:59 Zolpidem Tartrate (Zolpidem 5 Mg Tablet) 5 mg PO HS PRN PRN Reason: Insomnia Stop: 11/24/23 04:07 Exam Physical Exam Vital Signs: Vital Signs Temp Pulse Resp BP Pulse Ox O2 Del Method 05/29/23 04:00 98.8 F 80 18 132/78 93 L Room Air 05/29/23 00:00 98.9 F 76 18 114/66 92 L Room Air 05/28/23 20:00 Room Air 05/28/23 20:00 99.2 F H 84 20 139/76 91 L Room Air 05/28/23 15:13 100.4 F H 86 17 116/68 94 L Room Air 05/28/23 12:00 100.5 F H 86 18 118/69 94 L Room Air Const General: cooperative and no acute distress Orientation: oriented x3 HEENT Head: normal to inspection Ears: hearing grossly normal bilaterally Mouth: oral mucosae normal Eyes General: appearance normal, both eyes and all related structures Neck Neck: normal visual inspection Chest Chest palpation & inspection: normal inspection of the chest Resp Effort & Inspection: normal respiratory effort Auscultation: clear to auscultation bilaterally Cardio Palpation: normal PMI Rate: regular rate Rhythm: regular rhythm GI Inspection: normal to inspection Palpation: soft and nontender Auscultation: normal bowel sounds Skin General: other (Lower extremity wrapped with Lisa bandages) Neuro General: patient oriented x3 Extrem General: abnormal to inspection (Lisa bandages) Results Labs 05/29/23 06:28 05/29/23 06:28 Labs: Laboratory Results - Last 48 hrs. 05/29/23 06:43: POC Glucose 174 05/29/23 06:28: PHA Creatinine Clear 38.83, Sodium 132 L, Potassium 3.9, Chloride 95 L, Carbon Dioxide 27.4, Anion Gap 13.5, BUN 39 H, Creatinine 2.04 H,Est GFR (CKD-EPI) 26.083, Glucose 161 H D, Calcium 7.9 L 05/29/23 06:28: Corrected WBC 12.7 H, RBC 3.71, Hgb 11.6 L, Hct 34.1, MCV 92.0, MCH 31.2, MCHC 33.9, RDW 13.8, Plt Count 228, MPV 7.6 05/29/23 02:00: C. difficile Tox B Gene Negative 05/28/23 16:51: POC Glucose 82, POC Glucose Comment Glu2: cleaned meter 05/28/23 16:28: POC Glucose 52 L*, POC Glucose Comment 05/28/23 14:53: Lactic Acid 1.5 05/28/23 12:16: Troponin I High Sens 476.9 H* 05/28/23 11:44: POC Glucose 229, POC Glucose Comment Glu2: cleaned meter 05/28/23 06:41: POC Glucose 263, POC Glucose Comment Glu2: cleaned meter 05/28/23 05:51: Lactic Acid 3.7 H* 05/28/23 05:51: PHA Creatinine Clear 44.45, Sodium 131 L, Potassium 4.1, Chloride 95 L, Carbon Dioxide 24.5, Anion Gap 15.6 H, BUN 29 H, Creatinine 1.76 H, Est GFR (CKD-EPI) 31.139, Glucose 296 H, Calcium 8.8, Total Bilirubin 0.7, AST 22, ALT 12, Alkaline Phosphatase 51, Total Protein 6.8, Albumin 3.9, Globulin 2.9, Albumin/Globulin Ratio 1.3 05/28/23 05:51: Corrected WBC 7.9, Uncorrected WBC Count 7.9, RBC 4.23, Hgb 13.2, Hct 39.5, MCV 93.4, MCH 31.2, MCHC 33.4, RDW 13.7, Plt Count 222, MPV 7.3,Neut % (Auto) 89.6, Lymph % (Auto) 7.6, [place] % (Auto) 2.5, Eos % (Auto) 0.1, Baso % (Auto) 0.2, Nucleat RBC Rel Count 0.1, Neut # (Auto) 7.1, Lymph # (Auto) 0.6 L, [place] # (Auto) 0.2, Eos # (Auto) 0.0, Baso # (Auto) 0.0 05/28/23 05:51: Troponin I High Sens 574.2 H* 05/28/23 00:42: Urine Color Yellow, Urine Appearance Clear, Urine pH 5.5, Ur Specific [place] 1.017, Urine Protein 30 H, Urine Glucose (UA) 500 H, Urine Ketones Trace H, Urine Occult Blood Negative, Urine Nitrite Negative, Urine Bilirubin Negative, Urine Urobilinogen Normal, Ur Leukocyte Esterase 1+ H, UrineRBC 0-1, Urine WBC 5-9 H, Ur Squamous Epith Cells 1-2, Urine Bacteria None seen,Hyaline Casts 0-8 05/28/23 00:10: Troponin I High Sens 382.2 H* 05/27/23 22:56: POC Glucose 397 05/27/23 22:42: Magnesium 1.4 L 05/27/23 22:42: Total Creatine Kinase 137, Troponin I High Sens 302.1 H* 05/27/23 22:42: Lactic Acid 5.8 H* 05/27/23 22:42: PHA Creatinine Clear 42.25, Sodium 131 L, Potassium 4.2, Chloride 93 L, Carbon Dioxide 22.2, Anion Gap 20.0 H, BUN 31 H, Creatinine 1.83 H, Est GFR (CKD-EPI) 29.715, Glucose 376 H, Calcium 9.1, Total Bilirubin 0.8, AST 17, ALT 13, Alkaline Phosphatase 54, Total Protein 7.1, Albumin 3.8, Globulin 3.3, Albumin/Globulin Ratio 1.2 05/27/23 22:42: Corrected WBC 11.7 H, Uncorrected WBC Count 11.7 H, RBC 4.12, Hgb 12.8, Hct 38.5, MCV 93.4, MCH 31.0, MCHC 33.2, RDW 13.5, Plt Count 264, MPV 7.5, Neut % (Auto) 95.2, Lymph % (Auto) 3.1, [place] % (Auto) 1.4, Eos % (Auto) 0.0, Baso % (Auto) 0.3, Nucleat RBC Rel Count 0.0, Neut # (Auto) 11.2 H, Lymph #(Auto) 0.4 L, [place] # (Auto) 0.2, Eos # (Auto) 0.0, Baso # (Auto) 0.0, Monocyte Dist Width 40.58 H, Platelet Estimate Normal, Plt Morphology Comment Normal, RBCMorphology Normal Microbiology Results Microbiology Narrative: 05/27/23 23:20 Blood Culture - Preliminary Blood - Left Antecubital Presumptive Viridans Strep Bacterial ID (NA Multiplex Assay) - Final 05/29/23 06:28 Blood Culture - Pending Blood - Right Hand 05/29/23 06:21 Blood Culture - Pending Blood - Right Antecubital 05/29/23 02:00 Stool Lactoferrin - Final Stool 05/29/23 02:00 Stool Culture - Pending Stool 05/28/23 00:42 Urine Culture - Pending Urine - Straight Cath 05/27/23 22:42 Blood Culture - Pending Blood - Right Antecubital Imaging and Cardiology Status: report viewed by me Results Comments: IMPRESSION: ? CHEST DEMONSTRATES CHF FINDINGS FOR ACUTE PROCESS. ? LEFT SHOULDER DEMONSTRATES DEGENERATIVE CHANGE WITH EVIDENCE OF CALCIFIC TENDINITIS.? NO ACUTE BONY PROCESS. A&P - Infectious Disease (1) Positive blood culture: Status: Acute Plan Patient had positive blood culture with presumptive strep viridans with other blood cultures pending. Urine analysis not that impressive but her creatinine was higher than her baseline and it appears they are considering UTI as a diagnosis. She clearly came in due to vomiting and then was admitted with feverand concerns of chest pain. It seemed that she had acute onset of persistent nausea and bloody vomiting that has now resolved. She denies any sick contacts around her. She was having diarrhea prior to coming to the hospital but has nothad diarrhea since. Bowel movement last night she tells me was formed. She is not having abdominal pain at this time. She still feels nauseated. LFTs were really not impressive. Given the positive blood culture awaiting further identification of this organism. Ceftriaxone however should be effective. Awaiting repeat blood cultures. Documented By: Deep Eubanks MD 05/29/23930 Signed By: <Electronically signed by MD Deep Eubanks> 05/29/23939 [facility] Work Phone: Consult note Author Sydnie Milian [facility] May 30, 2023 12:12pm Note Date/Time May 30, 2023 10: 37am [facility] [address] [place] [address] Nephrology Consult Note Signed Patient: Namrata Jack MR#: [id number] : 1955 Acct:[id number] Age/Sex: 67 / F Adm Date: 3 Loc: 3T Room: [address] [place] [address] Type: ADM IN Attending Dr: Fahad Dobson MD Copies to: Sydnie MaicolMD Fahad mcconnell MD Robert L Hill, MD~ Providers Consult Date: 05/30/23 Requesting Provider: Fahad Dobson MD Primary Care Provider: Latrice Bergeron MD HPI Reason for Consult: JOY on CKD History of Present Illness: This is a 67-year-old female with a medical history of type 2 diabetes mellitus,hypertension, chronic diastolic congestive heart failure, mild aortic stenosis, CAD s/p PCI, dyslipidemia was presented to the emergency room for nausea and vomiting. On presentation in the emergency room patient was noticed to have a serum creatinine 1.0 mg/dL, hyponatremia with serum sodium 131 mmol/L. She was given fluid bolus in the emergency room and was started on maintenance fluid forpossible hypovolemia. Patient was recently admitted at [facility] for acute on chronic diastolic congestive heart failure and was discharged home on oral Lasix losartan and spironolactone. Patient was also found to have a elevated troponin and was seen by cardiology for type II NC. She was also found to have a fever and had a blood culture done on presentation which came out positive for strep. She was empirically started on IV ceftriaxone for possible UTI. Her hospital course was also complicated by hypoglycemia so insulin glargine was held and she was started on D10 water. Patient was seen by ID for positive blood culture and bacteremia. Her renal function continues to decline during the hospital stay despite holding diureticsand IV fluid resuscitation. Her serum creatinine went up to 2.2 mg/dL and she continues to have a persistent hyponatremia. Nephrology is consulted for JOY onCKD and hyponatremia management. Patient was seen and examined at bedside reported she is still having poor intake and was not able to tolerate her breakfast this morning. Review of Systems Review of Systems All other systems reviewed & are negative unless noted below or in HPI Review of systems: Cardiovascular: denies any chest pain, palpitation Pulmonary: denies any cough, hemoptysis Neurological :denies any headache, numbness, weakness Endocrine: denies any polyuria, polydipsia Dermatological: denies any itching or rash PMFSH Vaccinated for COVID-19?: Unknown Medical History (Updated 05/30/23 @ 12:02 by Sydnie Milian MD) Asthma allergy induced CAD (coronary artery disease) Diabetes mellitus Diverticulosis GERD (gastroesophageal reflux disease) HTN (hypertension) Morbid obesity Morbid obesity with BMI of 50.0-59.9, adult Neuropathy Osteoarthritis Pickwickian syndrome Surgical History History of back surgery Hx of appendectomy Hx of cholecystectomy Hx of heart artery stent X6 Hx of hysterectomy Hx of knee surgery Hx of neck surgery Family History Father CAD (coronary artery disease) AMI (acute myocardial infarction) Sister CAD (coronary artery disease) AMI (acute myocardial infarction) Sister CAD (coronary artery disease) AMI (acute myocardial infarction) Brother CAD (coronary artery disease) Social History Smoking Status: Never smoker Tobacco Type: cigarettes Substance Use Type: None Meds Medications & Allergies Allergies Penicillins Allergy (Severe, Verified 05/27/23 22:27) Anaphylaxis IV Dye Allergy (Severe, Uncoded 05/27/23 22:27) Anaphylaxis Home Medications hydrocodone 10 mg-acetaminophen 325 mg tablet 10 - 325 mg PO QID PRN Pain 01/20/18 [History Confirmed 05/28/23] insulin detemir U-100 100 unit/mL subcutaneous solution (Levemir U-100 Insulin) 40 units subcut HS 01/20/18 [History Confirmed 05/28/23] oxybutynin chloride 5 mg tablet 5 mg PO BID 01/20/18 [History Confirmed 05/28/23] zolpidem 5 mg tablet 5 mg PO HS PRN Insomnia 01/20/18 [History Confirmed 05/28/23] gabapentin 300 mg capsule 600 mg PO BID 02/24/18 [History Confirmed 05/28/23] aspirin 81 mg tablet,delayed release (Aspir-Low) 81 mg PO DAILY 06/01/19 [History Confirmed 05/28/23] cholecalciferol (vitamin D3) 50 mcg (2,000 unit) capsule 4,000 unit PO DAILY 06/01/19 [History Confirmed 05/28/23] clopidogrel 75 mg tablet (Plavix) 75 mg PO DAILY 06/01/19 [History Confirmed 05/28/23] cyclobenzaprine 10 mg tablet 10 mg PO TID PRN Spasms 06/01/19 [History Confirmed 05/28/23] sertraline 50 mg tablet (Zoloft) 100 mg PO DAILY 06/01/19 [History Confirmed 05/28/23] insulin lispro 100 unit/mL subcutaneous solution 40 units subcut DIRECTED 06/09/19 [History Confirmed 05/28/23] potassium chloride 20 mEq tablet,extended release 20 meq PO DAILY #30 tabs 06/11/19 [Rx Confirmed 05/28/23] rosuvastatin 20 mg tablet (Crestor) 40 mg PO HS 30 days #30 tabs 06/11/19 [Rx Confirmed 05/28/23] insulin detemir U-100 100 unit/mL subcutaneous solution (Levemir U-100 Insulin) 50 unit subcut DAILY.0730A 05/04/23 [History Confirmed 05/28/23] ranolazine 500 mg tablet,extended release,12 hr 500 mg PO BID 05/04/23 [History Confirmed 05/28/23] famotidine 20 mg tablet 20 mg PO QHS 30 days #30 tabs 05/09/23 [Rx Confirmed 05/28/23] losartan 25 mg tablet 25 mg PO DAILY 30 days #30 tabs 05/09/23 [Rx Confirmed 05/28/23] metoprolol tartrate 25 mg tablet 12.5 mg PO BID 30 days #30 tabs 05/09/23 [Rx Confirmed 05/28/23] spironolactone 25 mg tablet 25 mg PO BID 30 days #60 tabs 05/09/23 [Rx Confirmed 05/28/23] furosemide 40 mg tablet 40 mg PO BID 05/28/23 [History Confirmed 05/28/23] Active Medications: Active Medications Acetaminophen (Acetaminophen 325 Mg Tablet) 650 mg PO Q4H PRN PRN Reason: Pain Scale 1 - 5 Stop: 05/27/24 04:09 Last Admin: 05/28/23 09:02 Dose: 650 mg Hydrocodone Bitart/Acetaminophen (Hydrocodone/Acetaminophen 10-325 Mg Tablet) 1tab PO QID PRN PRN Reason: Pain Last Admin: 05/29/23 06:31 Dose: 1 tab Albuterol (Albuterol Neb 2.5 Mg/3 Ml Vial.Neb) 2.5 mg INHALATION Q2H PRN PRN Reason: Shortness Of Breath Stop: 05/27/24 04:09 Last Admin: 05/30/23 05:16 Dose: 2.5 mg Aspirin (Aspirin 81 Mg Tablet.) 81 mg PO DAILY [facility]ONY Stop: 05/27/24 08:59 Last Admin: 05/30/23 08:25 Dose: 81 mg Atorvastatin Calcium (Atorvastatin 80 Mg Tablet) 80 mg PO HS [facility]ON[facility] Stop: 05/27/24 21:59 Last Admin: 05/29/23 21:44 Dose: 80 mg Clopidogrel Bisulfate (Clopidogrel Bisulfate 75 Mg Tablet) 75 mg PO DAILY [facility] Stop: 05/27/24 08:59 Last Admin: 05/30/23 08:25 Dose: 75 mg Cyclobenzaprine HCl (Cyclobenzaprine 10 Mg Tablet) 10 mg PO TID PRN PRN Reason: Spasms Stop: 05/27/24 04:07 Dextrose (Dextrose 50% In Water 25 Gm/50 Ml Syringe) 0 gm IV-PUSH PRN PRN PRN Reason: Hypoglycemia Stop: 05/27/24 04:09 Last Admin: 05/29/23 16:52 Dose: 25 gm Docusate Sodium (Docusate 100 Mg Capsule) 200 mg PO BID PRN PRN Reason: Constipation Stop: 05/27/24 04:09 Last Admin: 05/28/23 18:21 Dose: 200 mg Enoxaparin Sodium (Enoxaparin 150 Mg/Ml Syringe) 150 mg SUBCUT Q12HR [facility] Stop: 05/27/24 08:59 Last Admin: 05/30/23 08:54 Dose: 150 mg Famotidine (Famotidine 20 Mg Tablet) 20 mg PO QHS [facility] Stop: 05/27/24 21:59 Last Admin: 05/29/23 21:45 Dose: 20 mg Gabapentin (Gabapentin 300 Mg Capsule) 600 mg PO BID [facility] Stop: 05/27/24 08:59 Last Admin: 05/30/23 08:24 Dose: 600 mg Glucose (Dextrose 40% Gel 15 Gm Tube) 0 gm PO PRN PRN PRN Reason: Hypoglycemia Stop: 05/27/24 04:09 Ceftriaxone Sodium (Rocephin) 2 gm in 50 mls @ 100 mls/hr IV Q24H [facility] Last Admin: 05/29/23 17:05 Dose: 100 mls/hr Dextrose (10 % Dextrose In Water) 1,000 mls @ 50 mls/hr IV .Q20H [facility] Stop: 05/28/24 17:14 Last Admin: 05/29/23 17:27 Dose: 50 mls/hr Insulin Aspart (Insulin Aspart 300 Units/3 Ml Insuln.Pen) 0 units SUBCUT TID.[facility]; Protocol Stop: 05/27/24 07:59 Last Admin: 05/29/23 17:05 Dose: Not Given Insulin Aspart (Insulin Aspart 300 Units/3 Ml Insuln.Pen) 40 units SUBCUT TID.WITH.MEALS [facility] Stop: 05/27/24 07:59 Last Admin: 05/29/23 17:05 Dose: Not Given Insulin Glargine (Insulin Glargine 300 Units/3 Ml Insuln.Pen) 50 units SUBCUT DAILY.0730A [facility] Stop: 05/27/24 07:29 Last Admin: 05/29/23 08:49 Dose: 50 units Insulin Glargine (Insulin Glargine 300 Units/3 Ml Insuln.Pen) 40 units SUBCUT [facility] Stop: 05/27/24 21:59 Last Admin: 05/28/23 21:12 Dose: Not Given Metoprolol Tartrate (Metoprolol Tartrate 12.5 Mg Tablet) 12.5 mg PO BID [facility] Stop: 05/27/24 08:59 Last Admin: 05/30/23 08:24 Dose: 12.5 mg Oxybutynin Chloride (Oxybutynin Chloride 5 Mg Tablet) 5 mg PO BID [facility] Stop: 05/27/24 08:59 Last Admin: 05/30/23 08:24 Dose: 5 mg Prochlorperazine Edisylate (Prochlorperazine Edisylate 10 Mg/2 Ml Vial) 5 mg IV- PUSH Q4H PRN PRN Reason: Nausea And Vomiting Stop: 05/27/24 04:09 Last Admin: 05/29/23 06:31 Dose: 5 mg Ranolazine (Ranolazine 500 Mg Tab.Er.12h) 500 mg PO BID [facility] Stop: 05/27/24 08:59 Last Admin: 05/30/23 08:24 Dose: 500 mg Sertraline HCl (Sertraline 100 Mg Tablet) 100 mg PO DAILY [facility] Stop: 05/27/24 08:59 Last Admin: 05/30/23 08:25 Dose: 100 mg Spironolactone (Spironolactone 25 Mg Tablet) 25 mg PO BID [facility] Stop: 05/27/24 08:59 Zinc Oxide (Zinc Oxide 20% Ointment 56 Gm Tube) 1 applic TOPICAL PRN PRN PRN Reason: Rash Stop: 05/28/24 10:51 Zolpidem Tartrate (Zolpidem 5 Mg Tablet) 5 mg PO HS PRN PRN Reason: Insomnia Stop: 11/24/23 04:07 Exam Physical Exam Vital Signs: Temp Pulse Resp BP Pulse Ox O2 Del Method O2 Flow Rate 97.8 F 75 14 120/72 97 Nasal Cannula 2 05/30/23 07:41 05/30/23 07:41 05/30/23 07:41 05/30/23 07:41 05/30/23 07:41 05/30/23 08:00 05/30/23 08:00 Narrative: General: Appears comfortable and not in distress Heart: S1-S2, no rub Lung: Bilateral air entry, no wheezing or crackles Abdomen: Soft, positive bowel sounds Extremities: Bilateral chronic lymphedema, no cyanosis Head: Atraumatic, normocephalic Ear: No gross hearing Deficit or external ear redness Eyes: No pallor or redness Neck: No JVD or visible mass Skin: No rashes or warm to touch [employer]PER[employer]: Awake,Alert, following simple command Musculoskeletal: No joint swelling or limitation of movement Psychiatric: Cooperative, normal mood and affect Results Labs 05/30/23 05:43 05/30/23 05:43 Labs: 05/30/23 05:43 BUN 45 H Creatinine 2.29 H Radiology Impressions Impressions - last 24 hours: Any impression(s) listed above is documentation that was entered by the reading physician into a diagnostic report(s) for Namrata Jack. I have reviewed the report(s) and am incorporating any findings in the treatment plan of this patient where applicable. A&P - Nephrology Assessment/Plan (1) Acute kidney injury superimposed on CKD: Plan: She has JOY possibly due to the relative hypotension in setting of infection (2) CKD (chronic kidney disease) stage 3, GFR 30-59 ml/min: Plan: She has CKD due to the longstanding DM, HTN and chronic cardiorenal syndrome with baseline serum creatinine 1.3 mg/dL. (3) Type 2 diabetes mellitus with diabetic chronic kidney disease: Plan: She has insulin-dependent type 2 diabetes mellitus. She was taking insulin glargine at home. (4) Hypertensive chronic kidney disease with stage 1 through stage 4 chronic kidney disease, or unspecified chronic kidney disease: Plan: Her blood pressure is relatively low. She was taking losartan, spironolactone, Lasix and metoprolol at home. (5) Chronic diastolic (congestive) heart failure: Plan: She appears to be well compensated. Her echocardiogram in April 2023 showed EF 65-70%, mild to moderate diastolic dysfunction, mild aortic stenosis (6) Bacteremia: Plan: Patient was presented with fever and has a positive blood culture with strep dysgalactiae. She is currently on ceftriaxone ID has been following the patient. (7) Hyponatremia: Plan: She has hyponatremia but appears to be euvolemic. This may be due to the nauseainduced or medication related like sertraline. (8) Hypokalemia: Plan: She has hypokalemia possibly due to the vomiting. Currently does not take any diuretics. Plan * Continue to hold home dose of the spironolactone, Lasix and losartan. * Check renal ultrasound to evaluate the renal anatomy. * Continue DM management as per the primary hospitalist team. Patient currently on D10 water due to the hypoglycemia in the setting of poor oral intake and insulin glargine. * Continue management of the bacteremia as per ID. * Will give potassium chloride 20 mEq and p.o. x1 dose. * Will check serum magnesium cortisol and TSH * Check renal function daily monitor input output * Thanks for the consult. We will continue follow with you. Please feel free to call us with any question. Documented By: Sydnie Milian MD 05/30/23 1037 Signed By: <Electronically signed by Sydnie Milian MD> 05/30/23 [facility] Work Phone: Discharge summary Author David Lane [facility] May 09, 2023 1:25pm Note Date/Time May 09, 2023 1:26 pm [facility] [address] [place] [address] Discharge Summary Signed Patient: Namrata Jack MR#: [id number] : 1955 Acct:[id number] Age/Sex: 67 / F Adm Date: 3 Loc: Room: [address] [place] [address]: David Lane MD Copies to: MD Latrice Hollingsworth MD~ Providers Date of Admission: 05/04/23 Date of Discharge: 05/09/23 Discharging Provider: David Lane Primary Care Provider: Latrice Bergeron Consults: 05/04/23 21:07 Consult to Cardiology Routine 05/05/23 09:42 Consult to Nephrology Routine 05/08/23 10:37 Consult to Physical Therapy Routine OT [Consult to Occupational Therapy] Routine Discharge Diagnosis (1) Acute on chronic diastolic heart failure: (2) Morbid obesity with BMI of 50.0-59.9, adult: (3) Pickwickian syndrome: (4) Hypomagnesemia: Final Diagnosis Final Discharge Diagnosis: Acute on chronic diastolic heart failure Hypomagnesemia Hypokalemia Left lower extremity wound?venous stasis ulcer Orbit obesity Summary Hospital Course Hospital course: Mrs. Jack is a 67-year-old female with a PMH of T2DM, HTN, diastolic heart failure, mild aortic stenosis, heart cath with stent placement x6, HLD that presents to the emergency room today for increased shortness of breath with exertion and increased swelling to legs.? Patient seen and evaluated in the emergency room, resting on the cart quietly, at bedside.? She reports that her premium representative Dr. Ortega instructed her to be seen in the emergency room for increased shortness of breath and swelling to her legs.? She reports that she had a left heart cath in March 15, 2 weeks later she noticed that her legs were swelling more and she was getting short of breath with activity and has worsened over the last couple of weeks.? She sleeps in a recliner at home.? She reports she does have a nonproductive cough.? She denies fever, chills.? She states that she did experience occasional chest pain, last time was last night and she took 1 nitro and it went away.? She states that she normally takes 40 ofLasix every day however for the last 3 days her insurance nurse told her to take80, last dose of 80 was today.? She states she was diagnosed with a UTI a coupleweeks ago and just finished Bactrim for that.? She also has a wound to her left lower extremity, she states it began about 4 years ago she had fallen and gottenroad rash to that leg.? About a year and a half ago he started to blister, 1 month ago she noticed huge blisters and they had ruptured.? She was sent to Dr. Christian who performed a punch biopsy which was essentially negative.? She reports she smoked a little bit when she was a teenager, denies alcohol use. EKG in the ER shows sinus bradycardia with a first-degree block. CBC with an H&Hof 11.7/35.1, WBC 6.4.? CMP with a potassium of 3.9, BUN 29, creatinine 1.44.? Troponin 6.4.? BNP 115.? UA with clear, yellow urine, 1+ leukocytes, no bacteriaseen.? Chest x-ray shows cardiomegaly with vascular congestion.? Patient was medicated with Lasix and levofloxacin.? She was admitted to the [facility] telemetry floor under the care of the hospitalist team. Patient was admitted to hospital and started on IV Bumex which was then transitioned to Bumex drip. Patient had good response to Bumex drip and low extremity edema and shortness of breath improved. He is net -11.5 L since admission. Her electrolytes were supplemented as needed. Patient had slight bump in her creatinine to 1.7 and remained stable there. Patient was followed by nephrology. Her blood pressure medication has been adjusted as needed. Losartan dose has been decreased from 100 to 25 mg daily. Metoprolol has been decreased to 12.5 mg twice daily. Patient is now transitioned to oral Lasix 80 mg twice daily. She is also started on Aldactone 25 mg twice daily. No repeat has been discontinued due to concern of hypotension as Lasix dose has been increased and Aldactone has been started. Patient has clinically improved and stable for discharge home. She has repeat BMP ordered to be done in 3 days and results will go to nephrology for evaluation. Patient will follow-up with nephrology office in 3 to 4 weeks. Patient be discharged home with home health care. Condition Condition at Discharge: Stable Status at Discharge Functional status at discharge: independent ambulation Time Spent with Patient Time spent providing/coordinating discharge services (# min): 50 Diagnostic Studies Completed and Pending Studies Pending studies at discharge: 05/09/23 Ferritin [CHEM] Routine Iron and TIBC Profile [CHEM] Routine Vit. B12/Folate Profile [CHEM] Routine 05/10/23 05:00 Basic Metabolic Panel [CHEM] IN AM Labs on day of discharge: 05/09/23 05:50: PHA Creatinine Clear 43.91, Sodium 138, Potassium 3.6, Chloride 94 L, Carbon Dioxide 36.9 H, Anion Gap 10.7, BUN 35 H, Creatinine 1.76 H, Est GFR (CKD-EPI) 31.139, Glucose 110 H, Calcium 9.2, Magnesium 1.9 Exam Physical Exam Vital Signs: Temp Pulse Resp BP Pulse Ox O2 Del Method 97.9 F 63 16 130/54 L 95 Room Air 05/09/23 07:42 05/09/23 11:32 05/09/23 11:32 05/09/23 11:32 05/09/23 11:32 05/09/23 11:32 Const General: comfortable Nutritional Appearance: obese Orientation: alert and awake HEENT Head: normocephalic and atraumatic Eyes General: appearance normal, both eyes and all related structures Pupils: PERRL EOM: EOM intact bilaterally Neck Neck: full ROM and supple Chest Chest palpation & inspection: normal inspection of the chest Resp Auscultation: rales and other ( diminished due to patient body habitus.) Cardio Rate: regular rate Rhythm: regular rhythm Heart Sounds: S1 normal and S2 normal GI Inspection: edema (improving) and obesity General: other (Garrett catheter in place) Skin General: ecchymosis and erythema (Chronic left lower extremity wound secondary to stasis) Neuro General: patient alert, patient awake and patient oriented x3 Extrem General: full ROM and edema (improving leg edema) Psych Appearance: grossly normal Discharge Plan Discharge Plan Patient Disposition: Home Activity: No Activity Restriction Diet: Diabetic and Low-Sodium Comment: 2gm sodium in 24 hours Additional Instructions: Please have blood work done first thing Monday morning, please call Dr. Milian's office (before 11:30am) and let them know when it is done so they can watch for the results. Please weigh your self daily and keep a log to take with you to your follow up appointments. Please call Dr. Milian's office if you gain 2 pounds in 24 hours or 5 pounds in 1 week. Apply Lisa Bandage to bilateral lower extremities during day time, starting from toes to knee height Wound care: -- Daily - left lower leg ulcers- clean wounds with vashe, wipe free loose debris, apply xeroform gauze, abd pads, kerlix then stockinette Prescriptions: New spironolactone 25 mg Tablet 25 mg PO BID 30 Days Qty: 60 0RF losartan 25 mg Tablet 25 mg PO DAILY 30 Days Qty: 30 0RF famotidine 20 mg Tablet 20 mg PO QHS 30 Days Qty: 30 0RF metoprolol tartrate 25 mg Tablet 12.5 mg PO BID 30 Days Qty: 30 0RF Continued hydrocodone-acetaminophen 10-325 mg tablet 10 - 325 mg PO QID PRN (Reason: Pain) Patient Comments: can have [id number] if needed zolpidem 5 mg tablet 5 mg PO HS PRN (Reason: Insomnia) Patient Comments: oxybutynin chloride 5 mg tablet 5 mg PO BID Patient Comments: Levemir U-100 Insulin 100 unit/mL solution 50 units Sub-Q BID Patient Comments: gabapentin 300 mg capsule 600 mg PO BID Patient Comments: cyclobenzaprine 10 mg Tablet 10 mg PO TID PRN (Reason: Spasms) clopidogrel [Plavix] 75 mg Tablet 75 mg PO DAILY aspirin [Aspir-Low] 81 mg Tablet,Delayed Release (Dr/Ec) 81 mg PO DAILY sertraline [Zoloft] 50 mg Tablet 50 mg PO DAILY cholecalciferol (vitamin D3) 2,000 unit Capsule 4,000 unit PO DAILY Levemir U-100 Insulin 100 unit/mL Solution 50 unit SUBCUT BID Rx Instructions: QAM and QHS ranolazine 500 mg tablet extended release 12 hr 500 mg PO BID Patient Comments: TAKE 1 TABLET BY MOUTH EVERY 12 HOURS insulin lispro 100 unit/mL solution 40 units subcut DIRECTED Rx Instructions: Takes 40 units with each meal plus sliding scale rosuvastatin [Crestor] 20 mg Tablet 40 mg PO HS 30 Days Qty: 30 11RF potassium chloride 20 mEq tablet extended release 20 meq PO DAILY Qty: 30 3RF Changed furosemide 40 mg tablet 80 mg PO BID 30 Days Qty: 120 0RF Discontinued amlodipine 5 mg tablet 5 mg PO DAILY Patient Comments: losartan 100 mg tablet 100 mg PO DAILY Patient Comments: metoprolol tartrate 25 mg tablet 50 mg PO BID Patient Comments: Other Ambulatory Orders: Basic Metabolic Panel (Routine) Timeframe: 20230512 Location: Determined by Patient Ordered By: Ari TEJADA Home Medical Equipment (Routine) Timeframe: 1 Day Location: Determined by Patient Ordered By: David Lane Follow Up: Latrice Bergeron MD [Primary Care Provider] - 05/12/23 2:30 pm (You have been scheduled for a follow up appointment with Nurse Practioner, for the following date and time, please call to reschedule if needed.) Sydnie Milian MD [Active Staff] - 05/29/23 9:40 am (You have been scheduled for afollow up appointment for the following date and time, please call to rescheduleif needed.) Joceline Ortega MD [Courtesy/Consulting Physician] - 10/02/23 9:45 am Documented By: David Lane MD 05/09/23 1319 Signed By: <Electronically signed by David Lane MD> 05/09/23 1325 [facility] Work Phone: Discharge summary Author Fahad Dobson [facility] June 01, 2023 11:30am Note Date/Time June 01, 2023 11: 30am [facility] [address] [place] [address] Discharge Summary Signed Patient: Namrata Jack MR#: [id number] : 1955 Acct:[id number] Age/Sex: 67 / F Adm Date: 3 Loc: Room: [address] [place] [address]: Fahad Dobson MD Copies to: MD aLtrice Acevedo MD~ Providers Date of Discharge: 06/01/23 Discharging Provider: Fahad Dobson Primary Care Provider: Latrice Bergeron Consults: 05/28/23 04:12 Consult to Occupational Therapy Routine Consult to Physical Therapy Routine 05/28/23 04:13 Consult to Cardiology Routine 05/28/23 15:18 Consult to Infectious Diseases Routine 05/30/23 07:37 Consult to Nephrology Routine 05/30/23 09:52 Consult to Speech Therapy Routine Discharge Diagnosis (1) Acute kidney injury superimposed on CKD: (2) CKD (chronic kidney disease) stage 3, GFR 30-59 ml/min: (3) Type 2 diabetes mellitus with diabetic chronic kidney disease: (4) Hypertensive chronic kidney disease with stage 1 through stage 4 chronic kidney disease, or unspecified chronic kidney disease: (5) Chronic diastolic (congestive) heart failure: (6) Bacteremia: (7) Hyponatremia: (8) Hypokalemia: Final Diagnosis Final Discharge Diagnosis: Sepsis Possible UTI Summary Hospital Course Hospital course: 63F with PMH of HTN, DM, HLD, Diabetic neuropathy, CAD s/p Stenting, Mild MR, GERD, diverticulosis, Morbid Obesity who p/w N/V/Chest pain. found with Fever, lactic acidosis? and admitted for possible UTI Acute metabolic encephalopathy due to hypoglycemia: resolved Hypoglycemia: resolved Seen and examined Resolved Clinically better More awake Blood sugar is improving D10 was discontinued Chest pain/Elevated Troponin rule out NSTEMI Resolved No more chest pain Seen by cardiology No further cardiac work up Continue aspirin and Plavix Continue Lopressor Continue Ranexa Septicemia Febrile illness ,? suspected due to urinary tract Clinically better ? No fever 1 blood culture grew Streptococcus Repeat Blood cultures are negative Urine culture is negative ID was consulted Treated initially with Rocephin and she was discharged cefdinir p.o. for 1 Gastroenteritis? Resolved No more diarrhea NO abdominal pain Hyponatremia: Improving / BMP in am Acute on CKD Treated with gentle hydration Losartan and Aldactone were held Lasix was held Nephrology was consulted Ultrasound no hydronephrosis Lasix was resumed per nephrology Keep holding losartan and Aldactone on discharge per nephrology recommended Chronic left lower extremity wound wound care nurse consulted Diabetes mellitus type, Insulin was held due to hypoglycemia was placed on D10 Blood sugar is improving Hypomagnesemia?replaced She was discharged to SNF in stable She is going to need a sleep apnea study as outpatient Condition Condition at Discharge: Stable Status at Discharge Functional status at discharge: independent ambulation Time Spent with Patient Time spent providing/coordinating discharge services (# min): 35 Complications Complications: None Diagnostic Studies Completed and Pending Studies Pending studies at discharge: 05/27/23 23:20 Blood Culture Stat 05/29/23 06:21 Blood Culture IN AM Preliminary micro results at discharge 05/29/23 06:21 Blood Culture - Preliminary Blood - Right Antecubital No Growth 3 Days 05/29/23 06:28 Blood Culture - Preliminary Blood - Right Hand No Growth 3 Days 05/27/23 22:42 Blood Culture - Preliminary Blood - Right Antecubital No Growth 4 Days Labs on day of discharge: 06/01/23 06:35: PHA Creatinine Clear 44.95, Sodium 127 L, Potassium 4.0, Chloride 93 L, Carbon Dioxide 28.3, Anion Gap 9.7, BUN 39 H, Creatinine 1.76 H, Est GFR (CKD-EPI) 31.139, Glucose 282 H, Calcium 8.5 L 06/01/23 06:25: POC Glucose 319 05/31/23 20:35: POC Glucose 364 05/31/23 15:55: POC Glucose 311 Exam Physical Exam Vital Signs: Temp Pulse Resp BP Pulse Ox O2 Del Method O2 Flow Rate 98.4 F 69 16 117/72 97 Room Air 2 06/01/23 08:00 06/01/23 08:00 06/01/23 04:00 06/01/23 08:00 06/01/23 08:00 06/01/23 08:00 05/31/23 16:30 Narrative: General patient laying in bed alert awake oriented x3 HEENT pupils are equal round reactive light Neck supple no JVD no carotid bruit CVS S1-S2 regular rate and rhythm no murmur no gallop Chest clear to auscultation percussion Abdomen soft bowel sounds normoactive no rebound no Extremities +1 edema Neurologic exam oriented x3 alert awake no focal deficit Skin exam normal no skin rash or lesion Musculoskeletal exam normal no movement limitation no joint effusion Discharge Plan Discharge Plan Activity: No Activity Restriction Diet: Diabetic and Low-Sodium Additional Instructions: Skin care BID: Theraworx protect to gluteal cleft and coccyx, thern apply zinx barrier Daily wound care to left lower leg- clean wounds with vashe, apply xeroform gauze to wound beds, top with abd pads and secure with kerlix then lisa wraps Instructions: Heart Failure, Adult (DC), Chronic kidney disease Prescriptions: New atorvastatin 80 mg Tablet 80 mg PO HS 30 Days Qty: 30 12RF cefdinir 300 mg Capsule 300 mg PO BID Qty: 14 0RF Continued hydrocodone-acetaminophen 10-325 mg tablet 10 - 325 mg PO QID PRN (Reason: Pain) Patient Comments: can have [id number] if needed zolpidem 5 mg tablet 5 mg PO HS PRN (Reason: Insomnia) Patient Comments: oxybutynin chloride 5 mg tablet 5 mg PO BID Patient Comments: Levemir U-100 Insulin 100 unit/mL solution 40 units Sub-Q HS Patient Comments: gabapentin 300 mg capsule 600 mg PO BID Patient Comments: cyclobenzaprine 10 mg Tablet 10 mg PO TID PRN (Reason: Spasms) clopidogrel [Plavix] 75 mg Tablet 75 mg PO DAILY aspirin [Aspir-Low] 81 mg Tablet,Delayed Release (Dr/Ec) 81 mg PO DAILY sertraline [Zoloft] 50 mg Tablet 100 mg PO DAILY cholecalciferol (vitamin D3) 2,000 unit Capsule 4,000 unit PO DAILY Levemir U-100 Insulin 100 unit/mL Solution 50 unit SUBCUT [id number].[id number] Rx Instructions: QAM ranolazine 500 mg tablet extended release 12 hr 500 mg PO BID Patient Comments: TAKE 1 TABLET BY MOUTH EVERY 12 HOURS famotidine 20 mg Tablet 20 mg PO QHS 30 Days Qty: 30 0RF metoprolol tartrate 25 mg Tablet 12.5 mg PO BID 30 Days Qty: 30 0RF insulin lispro 100 unit/mL solution 40 units subcut DIRECTED Rx Instructions: Takes 40 units with each meal plus sliding scale potassium chloride 20 mEq tablet extended release 20 meq PO DAILY Qty: 30 3RF furosemide 40 mg tablet 40 mg PO BID Discontinued spironolactone 25 mg Tablet 25 mg PO BID 30 Days Qty: 60 0RF losartan 25 mg Tablet 25 mg PO DAILY 30 Days Qty: 30 0RF rosuvastatin [Crestor] 20 mg Tablet 40 mg PO HS 30 Days Qty: 30 11RF Follow Up: Joceline Ortega MD [Courtesy/Consulting Physician] - 06/26/23 12:45 pm Documented By: Fahad Dobson MD 06/01/23 1124 Signed By: <Electronically signed by Fahad Dobson MD> 06/01/23 1130 [facility] Work Phone: Evaluation noteNo assessment information available [facility] Work Phone: Evaluation note* Diagnosis Onset Date Resolution Status Acute on chronic diastolic heart failure acute Diabetes mellitus acute GERD (gastroesophageal reflux disease) acute HTN (hypertension) acute Urinary tract infection acut e [facility] Work Phone: Evaluation note* Diagnosis Onset Date Resolution Status Acute on chronic diastolic heart failure acute CAD (coronary artery disease) acute Coronary angioplasty status acute Diabetes mellitus acute GERD (gastroesophageal reflux disease) acute HTN (hypertension) acute Hypomagnesemia acute Morbid obesity with BMI of 50.0-59.9, adult acute Pickwickian syndrome acute Right heart failure acute Urinary tract infection acut e [facility] Work Phone: Evaluation note* Diagnosis Onset Date Resolution Status Acute on chronic diastolic heart failure acute CAD (coronary artery disease) acute Coronary angioplasty status acute Diabetes mellitus acute GERD (gastroesophageal reflux disease) acute HTN (hypertension) acute Hypomagnesemia acute Morbid obesity with BMI of 50.0-59.9, adult acute Pickwickian syndrome acute Right heart failure acute Urinary tract infection acut e Acute on chronic diastolic heart failure acute Acute UTI acute Elevated troponin acute Hypomagnesemia acute Morbid obesity acute Weakness acute [facility] Work Phone: Evaluation note* Diagnosis Onset Date Resolution Status Acute on chronic diastolic heart failure acute CAD (coronary artery disease) acute Coronary angioplasty status acute Diabetes mellitus acute GERD (gastroesophageal reflux disease) acute HTN (hypertension) acute Hypomagnesemia acute Morbid obesity with BMI of 50.0-59.9, adult acute Pickwickian syndrome acute Urinary tract infection acut e Acute kidney injury superimposed on CKD acute Acute on chronic diastolic heart failure acute Acute UTI acute Bacteremia acute Chronic diastolic (congestive) heart failure acute CKD (chronic kidney disease) stage 3, GFR 30-59 ml/min acute Elevated troponin acute [id number] acute Hypokalemia acute Hypomagnesemia acute Hyponatremia acute Morbid obesity acute Positive blood culture acute Type 2 diabetes mellitus wit h diabetic chronic kidney disease acute Weakness acute [facility] Work Phone: Evaluation note* Diagnosis Onset Date Resolution Status Abdominal pain acute Cellulitis acute CKD (chronic kidney disease) stage 3, GFR 30-59 ml/min acute Constipation acute Fever acute Hypokalemia acute Increased urinary frequency acute Sepsis acute Type 2 diabetes mellitus wit h diabetic chronic kidney disease acute [facility] Work Phone: Evaluation note* Diagnosis Onset Date Resolution Status Abdominal pain acute Cellulitis acute CKD (chronic kidney disease) stage 3, GFR 30-59 ml/min acute Constipation acute Diverticulitis acute Fever acute GERD (gastroesophageal reflux disease) acute HTN (hypertension) acute Hypokalemia acute Increased urinary frequency acute Morbid obesity acute Morbid obesity with BMI of 50.0-59.9, adult acute Sepsis acute Type 2 diabetes mellitus wit h diabetic chronic kidney disease acute [facility] Work Phone: Evaluation note* Diagnosis Chest pain, unspecified Peripheral vascular angioplasty status Atherosclerotic heart disease of [place] coronary artery with angina pectoris with documented spasm ([facility]) Hyperlipidemia, unspecified Essential (primary) hypertension Unspecified essential hypertension Type 2 diabetes mellitus without complications ([facility]) Morbid (severe) obesity due to excess calories ([facility]) Body mass index (BMI) 50.0-59.9, adult ([facility]) Presence of coronary angioplasty implant and graft documented in this encounter [facility] Work Phone: Evaluation note* Diagnosis Onset Date Resolution Status Diabetic neuropathy acute Hemosiderin pigmentation of skin acute Hyperpigmentation acute Inflammation acute Lymphedema of both lower extremities acute Lymphorrhea acute Morbid obesity with BMI of 50.0-59.9, adult acute Type 2 diabetes mellitus wit h diabetic chronic kidney disease acute Ulcer of left lower leg acut e Ulcer of right lower leg acu te Venous (peripheral) insufficiency acute Weakness acute [facility] Work Phone: Evaluation note* Diagnosis Onset Date Resolution Status Venous stasis ulcers of both lower extremities acute Diabetic neuropathy acute Hemosiderin pigmentation of skin acute Hyperpigmentation acute Inflammation acute Lymphedema of both lower extremities acute Lymphorrhea acute Morbid obesity with BMI of 50.0-59.9, adult acute Papillomatosis acute Type 2 diabetes mellitus wit h diabetic chronic kidney disease acute Ulcer of left lower leg acut e Ulcer of right lower leg acu te Venous (peripheral) insufficiency acute Weakness acute [facility] Work Phone: Evaluation note* Diagnosis Onset Date Resolution Status Venous stasis ulcers of both lower extremities acute Diabetic neuropathy acute Hemosiderin pigmentation of skin acute Hyperpigmentation acute Inflammation acute Lymphedema of both lower extremities acute Lymphorrhea acute Morbid obesity with BMI of 50.0-59.9, adult acute Papillomatosis acute Type 2 diabetes mellitus wit h diabetic chronic kidney disease acute Ulcer of left lower leg acut e Ulcer of right lower leg acu te Venous (peripheral) insufficiency acute Weakness acute Acute hyponatremia acute Acute respiratory failure with hypoxia acute BMI 50.0-59.9, adult acute CAD (coronary artery disease) acute Dehydration acute Diabetes mellitus with hyperglycemia acute Diabetic neuropathy acute Diabetic retinopathy acute Diarrhea acute Fever acute Hypovolemia acute Intractable nausea and vomiting acute Morbid obesity with BMI of 50.0-59.9, adult acute Nausea & vomiting acute Pickwickian syndrome acute [facility] Work Phone: Evaluation note* Diagnosis Onset Date Resolution Status Venous stasis ulcers of both lower extremities acute Diabetic neuropathy acute Hemosiderin pigmentation of skin acute Hyperpigmentation acute Inflammation acute Lymphedema of both lower extremities acute Lymphorrhea acute Morbid obesity with BMI of 50.0-59.9, adult acute Papillomatosis acute Type 2 diabetes mellitus wit h diabetic chronic kidney disease acute Ulcer of left lower leg acut e Ulcer of right lower leg acu te Venous (peripheral) insufficiency acute Weakness acute Acute hyponatremia acute Acute respiratory failure with hypoxia acute BMI 50.0-59.9, adult acute CAD (coronary artery disease) acute CKD (chronic kidney disease) stage 3, GFR 30-59 ml/min acute Coronary angioplasty status acute Dehydration acute Diabetes mellitus with hyperglycemia acute Diabetic neuropathy acute Diabetic retinopathy acute Fever acute GERD (gastroesophageal reflux disease) acute Hypokalemia acute Hypomagnesemia acute Hyponatremia acute Hypovolemia acute Inflammation acute Intractable nausea and vomiting acute Leukocytosis acute Morbid obesity acute Morbid obesity with BMI of 50.0-59.9, adult acute Nausea & vomiting acute NSVT (nonsustained ventricular tachycardia) acute Pickwickian syndrome acute Venous stasis ulcers of both lower extremities acute [facility] Work Phone: History and physical note Author Paige Aburto [facility] May 29, 2023 6:44am Note Date/Time May 28, 2023 4:21 am [facility] [address] [place] [address] Hospitalist H&P Signed Patient: Namrata Jack MR#: [id number] : 1955 Acct:[id number] Age/Sex: 67 / F Adm Date: 3 Loc: Room: [address] [place] [address] Type: ADM IN Attending Dr: Rohit Francis MD Copies to: MD Latrice Harrison MD Ruta Semaskiene, MD~ HPI DATE OF EXAMINATION: 05/28/23 CHIEF COMPLAINT: Nausea/vomiting HISTORY OF PRESENT ILLNESS: 67 years old female who was discharged from this institution on May 09, 2023. She was treated for acute on chronic congestive heart failure. Today she presented with multiple episodes of nausea associated with nonbloody vomitus andnonbloody diarrhea since yesterday. Patient complained of poor appetite. She denied any abdominal pain. She complained of weakness, it seems like she sustained a fall without loss of consciousness. She complains of pain in her left inner thigh significant trauma. Also she complains of intermittent chest pains. Per patient she has been having chest pains for couple of months. She is following NOMs and it seems like she underwent cardiac cath in February, at that time no intervention was done per patient report. However this time chest pain did not subside after 1 nitroglycerin so she took 2. Currently patient is asymptomatic and denies any chest pain. But she admits worsening cough exertional shortness of breath. She also complains of fevers, but denied any urinary symptoms such as dysuria urgency frequency 10 systems are reviewed and are negative apart as mentioned in H&P General -patient is awake alert oriented ?3, does not appear to be in distress HEENT dry oropharyngeal mucosa without any ulcers or exudates Cardiovascular -S1 plus S2, with regular rate, without any murmurs, gallops, rubs Pulmonary -clear to auscultation bilaterally Gastrointestinal -abdomen is soft, nondistended, diffusely tender, bowel sounds positive, no rigidity, no rebound Genitourinary -deferred Musculoskeletal -no back tenderness, no significant joint swelling, full range of motion Neurological -no focal Skin -ulcer on the left leg noted, but without any significant signs of Extremities - no edema in bilateral lower extremities noted Tenderness in the right inner thigh but no significant skin lesions, fluctuation, redness or erythema noted Psychiatry - appropriate affect Laboratory work up, imaging studies reviewed EKG personally reviewed by me normal sinus rhythm without acute ST-T wave changes Previous records in the computer system reviewed [facility] Medical History Asthma allergy induced CAD (coronary artery disease) Diabetes mellitus Diverticulosis GERD (gastroesophageal reflux disease) HTN (hypertension) Morbid obesity Morbid obesity with BMI of 50.0-59.9, adult Neuropathy Osteoarthritis Pickwickian syndrome Surgical History History of back surgery Hx of appendectomy Hx of cholecystectomy Hx of heart artery stent X6 Hx of hysterectomy Hx of knee surgery Hx of neck surgery Family History Father CAD (coronary artery disease) AMI (acute myocardial infarction) Sister CAD (coronary artery disease) AMI (acute myocardial infarction) Sister CAD (coronary artery disease) AMI (acute myocardial infarction) Brother CAD (coronary artery disease) Social History Smoking Status: Never smoker Tobacco Type: cigarettes Substance Use Type: None Meds Medications and Allergies Allergies Penicillins Allergy (Severe, Verified 05/27/23 22:27) Anaphylaxis IV Dye Allergy (Severe, Uncoded 05/27/23 22:27) Anaphylaxis Home Medications hydrocodone 10 mg-acetaminophen 325 mg tablet 10 - 325 mg PO QID PRN Pain 01/20/18 [History Confirmed 05/28/23] insulin detemir U-100 100 unit/mL subcutaneous solution (Levemir U-100 Insulin) 40 units subcut HS 01/20/18 [History Confirmed 05/28/23] oxybutynin chloride 5 mg tablet 5 mg PO BID 01/20/18 [History Confirmed 05/28/23] zolpidem 5 mg tablet 5 mg PO HS PRN Insomnia 01/20/18 [History Confirmed 05/28/23] gabapentin 300 mg capsule 600 mg PO BID 02/24/18 [History Confirmed 05/28/23] aspirin 81 mg tablet,delayed release (Aspir-Low) 81 mg PO DAILY 06/01/19 [History Confirmed 05/28/23] cholecalciferol (vitamin D3) 50 mcg (2,000 unit) capsule 4,000 unit PO DAILY 06/01/19 [History Confirmed 05/28/23] clopidogrel 75 mg tablet (Plavix) 75 mg PO DAILY 06/01/19 [History Confirmed 05/28/23] cyclobenzaprine 10 mg tablet 10 mg PO TID PRN Spasms 06/01/19 [History Confirmed 05/28/23] sertraline 50 mg tablet (Zoloft) 100 mg PO DAILY 06/01/19 [History Confirmed 05/28/23] insulin lispro 100 unit/mL subcutaneous solution 40 units subcut DIRECTED 06/09/19 [History Confirmed 05/28/23] potassium chloride 20 mEq tablet,extended release 20 meq PO DAILY #30 tabs 06/11/19 [Rx Confirmed 05/28/23] rosuvastatin 20 mg tablet (Crestor) 40 mg PO HS 30 days #30 tabs 06/11/19 [Rx Confirmed 05/28/23] insulin detemir U-100 100 unit/mL subcutaneous solution (Levemir U-100 Insulin) 50 unit subcut DAILY.0730A 05/04/23 [History Confirmed 05/28/23] ranolazine 500 mg tablet,extended release,12 hr 500 mg PO BID 05/04/23 [History Confirmed 05/28/23] famotidine 20 mg tablet 20 mg PO QHS 30 days #30 tabs 05/09/23 [Rx Confirmed 05/28/23] losartan 25 mg tablet 25 mg PO DAILY 30 days #30 tabs 05/09/23 [Rx Confirmed 05/28/23] metoprolol tartrate 25 mg tablet 12.5 mg PO BID 30 days #30 tabs 05/09/23 [Rx Confirmed 05/28/23] spironolactone 25 mg tablet 25 mg PO BID 30 days #60 tabs 05/09/23 [Rx Confirmed 05/28/23] furosemide 40 mg tablet 40 mg PO BID 05/28/23 [History Confirmed 05/28/23] Exam Physical Exam Vital Signs: Temp Pulse Resp BP Pulse Ox O2 Del Method 37.7 C H 78 20 124/70 93 L Room Air 05/28/23 03:36 05/28/23 03:36 05/28/23 03:36 05/28/23 03:36 05/28/23 03:36 05/28/23 03:36 Results Lab Results Labs: Laboratory Last Values Corrected WBC 11.7 X10E3/uL (3.8-11.6) H 05/27/23 22:42 Uncorrected WBC Count 11.7 x10E3/uL (3.8-11.6) H 05/27/23 22:42 RBC 4.12 X10E6/uL (3.60-5.00) 05/27/23 22:42 Hgb 12.8 g/dL (11.8-15.4) 05/27/23 22:42 Hct 38.5 % (34.0-46.4) 05/27/23 22:42 MCV 93.4 fl (80-100) 05/27/23 22:42 MCH 31.0 pg (24.7-34.3) 05/27/23 22:42 MCHC 33.2 g/dL (32.0-35.0) 05/27/23 22:42 RDW 13.5 % (11.9-15.3) 05/27/23 22:42 Plt Count 264 x10E3/uL (150-450) 05/27/23 22:42 MPV 7.5 fl (6.3-10.7) 05/27/23 22:42 Neut % (Auto) 95.2 % (.) 05/27/23 22:42 Lymph % (Auto) 3.1 % (.) 05/27/23 22:42 [place] % (Auto) 1.4 % (.) 05/27/23 22:42 Eos % (Auto) 0.0 % (.) 05/27/23 22:42 Baso % (Auto) 0.3 % (.) 05/27/23 22:42 Nucleat RBC Rel Count 0.0 /100 WBC (0-0.5) 05/27/23 22:42 Neut # (Auto) 11.2 x10E3/uL (1.8-7.7) H 05/27/23 22:42 Lymph # (Auto) 0.4 x10E3/uL (1.00-4.8) L 05/27/23 22:42 [place] # (Auto) 0.2 x10E3/uL (0.0-0.8) 05/27/23 22:42 Eos # (Auto) 0.0 x10E3/uL (0.0-0.45) 05/27/23 22:42 Baso # (Auto) 0.0 x10E3/uL (0.0-0.2) 05/27/23 22:42 Monocyte Dist Width 40.58 % (0.00-20.00) H 05/27/23 22:42 Platelet Estimate Normal (Normal) 05/27/23 22:42 Plt Morphology Comment Normal (Normal) 05/27/23 22:42 RBC Morphology Normal (Normal) 05/27/23 22:42 PHA Creatinine Clear 42.25 05/27/23 22:42 Sodium 131 mmol/L (136-145) L 05/27/23 22:42 Potassium 4.2 mmol/L (3.5-5.1) 05/27/23 22:42 Chloride 93 mmol/L (98-107) L 05/27/23 22:42 Carbon Dioxide 22.2 mmol/L (21.0-31.0) 05/27/23 22:42 Anion Gap 20.0 mEq/L (6.0-15.0) H 05/27/23 22:42 BUN 31 mg/dL (7-25) H 05/27/23 22:42 Creatinine 1.83 mg/dL (0.60-1.20) H 05/27/23 22:42 Est GFR (CKD-EPI) 29.715 mL/Min 05/27/23 22:42 Glucose 376 mg/dL (70-100) H 05/27/23 22:42 POC Glucose 397 mg/dl 05/27/23 22:56 Lactic Acid 5.8 mmol/L (0.5-2.2) H* 05/27/23 22:42 Calcium 9.1 mg/dL (8.6-10.3) 05/27/23 22:42 Magnesium 1.4 mg/dL (1.9-2.7) L 05/27/23 22:42 Total Bilirubin 0.8 mg/dl (0.3-1.0) 05/27/23 22:42 AST 17 U/L (13-39) 05/27/23 22:42 ALT 13 U/L (7-52) 05/27/23 22:42 Alkaline Phosphatase 54 U/L (34-104) 05/27/23 22:42 Total Creatine Kinase 137 U/L (30-223) 05/27/23 22:42 Troponin I High Sens 382.2 pg/mL (0.0-15.0) H* 05/28/23 00:10 Total Protein 7.1 gm/dL (6.4-8.9) 05/27/23 22:42 Albumin 3.8 gm/dL (3.5-5.7) 05/27/23 22:42 Globulin 3.3 gm/dL 05/27/23 22:42 Albumin/Globulin Ratio 1.2 05/27/23 22:42 Urine Color Yellow (Yellow) 05/28/23 00:42 Urine Appearance Clear (Clear) 05/28/23 00:42 Urine pH 5.5 (5.0-9.0) 05/28/23 00:42 Ur Specific [place] 1.017 (1.001-1.030) 05/28/23 00:42 Urine Protein 30 mg/dL (Negative) H 05/28/23 00:42 Urine Glucose (UA) 500 mg/dL (Normal) H 05/28/23 00:42 Urine Ketones Trace (Negative) H 05/28/23 00:42 Urine Occult Blood Negative (Negative) 05/28/23 00:42 Urine Nitrite Negative (Negative) 05/28/23 00:42 Urine Bilirubin Negative (Negative) 05/28/23 00:42 Urine Urobilinogen Normal mg/dL (Normal) 05/28/23 00:42 Ur Leukocyte Esterase 1+ (Negative) H 05/28/23 00:42 Urine RBC 0-1 /HPF (0-4) 05/28/23 00:42 Urine WBC 5-9 /HPF (0-4) H 05/28/23 00:42 Ur Squamous Epith Cells 1-2 /HPF (0-2) 05/28/23 00:42 Urine Bacteria None seen (None Seen) 05/28/23 00:42 Hyaline Casts 0-8 /LPF (0-8) 05/28/23 00:42 Assessment & Plan Assessment/Plan (1) Acute UTI: Plan 1. Fever suspected due to urinary tract I could not appreciate any other focal signs of infection, however patient complains of diarrhea as well but no abdominal pain. We will check for C. difficile. For now continue with Rocephin Await cultures 2. Mild acute kidney injury, start gentle hydration, recheck in a.m. 3. Chronic left lower extremity wound, I do not appreciate any active signs of infection, wound care nurse consulted 4. Chest pain, with underlying coronary artery disease, status post multiple intervention, with last cardiac cath in February 2023, no intervention done at that time. Troponins slightly elevated, EKG nonischemic, will consult cardiology For now continue with antiplatelets, troponins flat 5. Elevated lactic acid -again patient denies any abdominal pain but she does have diarrhea For now continue with hydration, blood pressure seems to be stable, no hypotension noted Unlikely mesenteric ischemia as the patient denies abdominal pain Recheck lactic acid 6. Diabetes mellitus type 2, continue with home medical therapy, add sliding 7. Hypomagnesemia replacement IP vs OBS Justification Based on differential dx, clinical care plan, and risk of adverse events, if untreated, in my clinical judgement this patient requires an acute care setting as: INPATIENT because of an expectation of an over 2 midnight stay. Estimated length of stay (# of days): 3 Documented By: Paige Aburto MD 05/28/23 0414 Signed By: <Electronically signed by Paige Aburto MD> 05/29/23 0644 [facility] Work Phone: History and physical note Author Vincenzo Ragsdale [facility] February 13, 2024 8:57pm Note Date/Time February 13, 2024 8:4 7pm [facility] [address] [place] [address] Hospitalist H&P Signed Patient: Namrata Jack MR#: [id number] : 1955 Acct:[id number] Age/Sex: 68 / F Adm Date: 4 Loc: Room: [address] [place] [address] Type: ADM IN Attending Dr: Vincenzo Ragsdale DO Copies to: DO Latrice Mcdaniel MD~ HPI DATE OF EXAMINATION: 02/13/24 CHIEF COMPLAINT: non-stop nausea, vomiting, and diarrhrea. HISTORY OF PRESENT ILLNESS: This is a 68-year-old woman who has now had 2 ER visits in less than 24 hours due to intractable nausea and vomiting along with diarrhea. She said that all of her problems started yesterday and the vomiting started suddenly. She had large profuse amounts of vomiting. She came to the emergencyroom. A CT scan was done in emergency room which showed no acute problems. Shewas medicated and apparently wanted to go home. It seems that at home she took 2 doses of Zofran but has been at home having vomiting all day today. She also describes that in beginning from when she came to the emergency room yesterday she was having a tremendous amount of diarrhea. The emergency room physicians notes from around midnight last night described her as being diffusely tender all over which is the reason that the CT scan of the abdomen pelvis was done. Urinalysis on that visit was perfectly normal. On her repeat visit here swab for COVID and influenza and RSV is negative. She did begin spiking a temperature of 99.3 and then 100.4. She received Tylenol and Zofran and a liter of IV fluids. She received morphine which seems to causerespiratory sedation that she has had to be placed on 2 L oxygen by nasal cannula. The patient tells me that she does not believe that she has any sleep apnea. 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 She says that her has sleep apnea, and uses his machine but she has never needed a machine and she has never needed supplemental oxygen. She is extremely weak. One of the main reasons for admission is that the patient just does not have the strength to stand or walk at all. In the ER whenI come to room the bedside nurses try to get her to sign her admission consent as she is so weak and people that she cannot sign this form. It is clear that she would not have the strength even try and stand up out of bed at this time. Fortunately she says that the pain in her belly is better than it was last nightand she has been able to take sips of liquids. Despite all the vomiting at homeshe believes that she was able to keep down all of her routine medications. She was in the hospital for something similar in August of 2023, and she stayed for about a week and was treated with Flagyl and Rocephin out of concern for possible diverticulitis. Of note her lab work portends worsening diarrhea and hydration leading to the risk of acute kidney injury and worsening hyponatremia. Her white blood count last night was 14.9 but today it is much lower at 4.7. Her monocyte distribution width, and early marker for bacterial infection has gone from a high 29.27 up to an astonishingly high at 44.14. Her sodium dropped in this 15-hour timeframe from 136 down to 129. And her BUN is risen from 40-43 and her serum creatinine is risen from a baseline of 1.29 up to 1.57 last night and then1.81 today. Review of Systems Review of Systems Review of systems: 10 systems are reviewed and are negative except as mentioned elsewhere in the documentation. [facility] Medical History (Updated 02/13/24 @ 20:53 by Vincenzo Ragsdale DO) BMI 50.0-59.9, adult Presence of neurostimulator nonfunctioning Pickwickian syndrome Morbid obesity with BMI of 50.0-59.9, adult Neuropathy CAD (coronary artery disease) Morbid obesity Diverticulosis Diabetes mellitus HTN (hypertension) Osteoarthritis GERD (gastroesophageal reflux disease) Asthma allergy induced Surgical History Hx of neck surgery History of back surgery Hx of knee surgery Hx of cholecystectomy Hx of hysterectomy Hx of appendectomy Hx of heart artery stent X6 Family History Father CAD (coronary artery disease) AMI (acute myocardial infarction) Sister CAD (coronary artery disease) AMI (acute myocardial infarction) Sister CAD (coronary artery disease) AMI (acute myocardial infarction) Brother CAD (coronary artery disease) Father History of stroke [facility] Problem: Diagnosed with Stroke Heart disease Hypertension Diabetes Mother History of malignant neoplasm of cervix Cancer [facility] Problem: Diagnosed with Cancer Family history of mental disorder [facility] Problem: Diagnosed with Mental Illness Social History Smoking Status: Never smoker Substance Use Type: None Meds Medications and Allergies Allergies Penicillins Allergy (Severe, Verified 02/13/24 17:20) Anaphylaxis Iodinated Contrast Media Allergy (Mild, Verified 02/13/24 17:20) Anaphylaxis Home Medications oxybutynin chloride 5 mg tablet 5 mg PO BID 01/20/18 [History Confirmed 02/13/24] zolpidem 5 mg tablet 5 mg PO HS PRN Insomnia 01/20/18 [History Confirmed 02/13/24] gabapentin 300 mg capsule 600 mg PO BID 02/24/18 [History Confirmed 02/13/24] cholecalciferol (vitamin D3) 50 mcg (2,000 unit) capsule 4,000 unit PO DAILY 06/01/19 [History Confirmed 02/13/24] clopidogrel 75 mg tablet (Plavix) 75 mg PO DAILY 06/01/19 [History Confirmed 02/13/24] cyclobenzaprine 10 mg tablet 10 mg PO TID PRN Spasms 06/01/19 [History Confirmed 02/13/24] potassium chloride 20 mEq tablet,extended release 20 meq PO DAILY #30 tabs 06/11/19 [Rx Confirmed 02/13/24] insulin detemir U-100 100 unit/mL subcutaneous solution (Levemir U-100 Insulin) 50 unit subcut DAILY 05/04/23 [History Confirmed 12/21/23] amlodipine 5 mg tablet 5 mg PO BID 08/31/23 [History Confirmed 02/13/24] ascorbic acid (vitamin C) 1,000 mg tablet (Vitamin C) 1,000 mg PO DAILY 08/31/23[History Confirmed 02/13/24] aspirin 81 mg tablet,delayed release 81 mg PO DAILY 08/31/23 [History Confirmed 02/13/24] hydrocodone 10 mg-acetaminophen 325 mg tablet 10 - 325 mg PO Q6H PRN Pain 08/31/23 [History Confirmed 02/13/24] insulin aspart U-100 100 unit/mL subcutaneous solution (Novolog U-100 Insulin aspart) 30 unit subcut TID.AC 08/31/23 [History Confirmed 02/13/24] insulin detemir U-100 100 unit/mL subcutaneous solution (Levemir U-100 Insulin) 30 unit subcut QHS 08/31/23 [History Confirmed 02/13/24] losartan 100 mg tablet 100 mg PO DAILY 08/31/23 [History Confirmed 02/13/24] metolazone 5 mg tablet 5 mg PO DAILY 08/31/23 [History Confirmed 02/13/24] metoprolol tartrate 25 mg tablet 12.5 mg PO BID 08/31/23 [History Confirmed 02/13/24] vitamin B complex 1 cap PO DAILY 08/31/23 [History Confirmed 02/13/24] polyethylene glycol 3350 17 gram oral powder packet (HealthyLax) 17 g PO BID #0 ea 09/05/23 [Rx Confirmed 02/13/24] furosemide 40 mg tablet 40 mg PO DAILY #30 tabs 09/06/23 [Rx Confirmed 02/13/24] ranolazine 500 mg tablet,extended release,12 hr 500 mg PO Q12H 11/30/23 [History Confirmed 02/13/24] sertraline 100 mg tablet 100 mg PO Q24H 11/30/23 [History Confirmed 02/13/24] spironolactone 25 mg tablet 25 mg PO DAILY 11/30/23 [History Confirmed 02/13/24] ondansetron HCl 4 mg tablet 4 mg PO Q8HR PRN nausea and vomiting 5 days #15 tabs04 [Rx Confirmed 02/13/24] Exam Physical Exam Vital Signs: Temp Pulse Resp BP Pulse Ox O2 Del Method O2 Flow Rate 100.4 F H 90 18 164/80 H 93 L Nasal Cannula 2 02/13/24 19:28 02/13/24 20:15 02/13/24 20:15 02/13/24 20:15 02/13/24 20:15 02/13/24 20:15 02/13/24 20:15 Narrative: GEN: Profoundly weak and malaised and needs help from the nurse to sign Admission Department needs help for me to hold a cup to her lips so that she candrink sips of water with a straw. Head: Normal Cephalic, Atraumatic. Eyes: Conjunctiva and sclera clear bilaterally. Nose: External nose and nares normal bilaterally. Mouth: Lips and tongue normal. No erythema in the posterior oropharynx. No thrush on the tongue. Neck: No JVD. No thyromegaly. No lymphadenopathy. Lungs: Clear to auscultation bilaterally, no wheezing, no crackles. Heart: Regular rate and rhythm, no murmurs, rubs, or gallops. Abdomen: Soft, and really does not have any tenderness to palpation of my examination. Auscultation bowel sounds are very hypoactive. Extremities: She does have chronic 2+ pitting edema from her knees down to her ankles bilaterally with resultant chronic venous stasis changes in the bottom half of her legs. Skin: Rest of her body has no systemic rashes or lesions. Psychiatric: Calm. Conversant. Cooperative. Results - Hospitalist H&P Lab Results Labs: Laboratory Last Values Corrected WBC 4.7 X10E3/uL (3.8-11.6) 02/13/24 18:30 Uncorrected WBC Count 4.7 x10E3/uL (3.8-11.6) 02/13/24 18:30 RBC 4.80 X10E6/uL (3.60-5.00) 02/13/24 18:30 Hgb 15.2 g/dL (11.8-15.4) 02/13/24 18:30 Hct 44.8 % (34.0-46.4) 02/13/24 18:30 MCV 93.3 fl (80-100) 02/13/24 18:30 MCH 31.6 pg (24.7-34.3) 02/13/24 18: MCHC 33.9 g/dL (32.0-35.0) 02/13/24 18:30 RDW 13.9 % (11.9-15.3) 02/13/24 18:30 Plt Count 304 x10E3/uL (150-450) 02/13/24 18: MPV 7.4 fl (6.3-10.7) 02/13/24 18:30 Neut % (Auto) 83.3 % (.) 02/13/24 18:30 Lymph % (Auto) 11.6 % (.) 02/13/24 18: [place] % (Auto) 4.8 % (.) 02/13/24 18:30 Eos % (Auto) 0.1 % (.) 02/13/24 18:30 Baso % (Auto) 0.2 % (.) 02/13/24 18: Nucleat RBC Rel Count 0.1 /100 WBC (0-0.5) 02/13/24 18:30 Neut # (Auto) 3.9 x10E3/uL (1.8-7.7) 02/13/24 18:30 Lymph # (Auto) 0.5 x10E3/uL (1.00-4.8) L 02/13/24 18:30 [place] # (Auto) 0.2 x10E3/uL (0.0-0.8) 02/13/24 18:30 Eos # (Auto) 0.0 x10E3/uL (0.0-0.45) 02/13/24 18:30 Baso # (Auto) 0.0 x10E3/uL (0.0-0.2) 02/13/24 18:30 Monocyte Dist Width 44.14 % (0.00-20.00) H 02/13/24 18:30 PHA Creatinine Clear 41.53 02/13/24 18:08 Sodium 129 mmol/L (136-145) L D 02/13/24 18:08 Potassium 3.7 mmol/L (3.5-5.1) 02/13/24 19:15 Chloride 89 mmol/L (98-107) L 02/13/24 18:08 Carbon Dioxide 25.2 mmol/L (21.0-31.0) 02/13/24 18:08 Anion Gap TNP 02/13/24 18:08 BUN 43 mg/dL (7-25) H 02/13/24 18:08 Creatinine 1.81 mg/dL (0.60-1.20) H 02/13/24 18:08 Est GFR (CKD-EPI) 29.923 mL/Min 02/13/24 18:08 Glucose 229 mg/dL (70-100) H D 02/13/24 18:08 Calcium 9.0 mg/dL (8.6-10.3) 02/13/24 18:08 Total Bilirubin 1.1 mg/dl (0.3-1.0) H 02/13/24 18:08 AST 45 U/L (13-39) H 02/13/24 19:15 ALT 25 U/L (7-52) 02/13/24 18:08 Alkaline Phosphatase 52 U/L (34-104) 02/13/24 18:08 B-Natriuretic Peptide 242.0 pg/mL (5-100) H 02/13/24 18:30 Total Protein 6.8 gm/dL (6.4-8.9) 02/13/24 18:08 Albumin 3.5 gm/dL (3.5-5.7) 02/13/24 18:08 Globulin 3.3 gm/dL 02/13/24 18:08 Albumin/Globulin Ratio 1.1 02/13/24 18:08 Assessment & Plan Assessment/Plan (1) Intractable nausea and vomiting: (2) Diarrhea: (3) Dehydration: (4) Diabetic neuropathy: (5) Diabetic retinopathy: (6) Diabetes mellitus with hyperglycemia: (7) CAD (coronary artery disease): (8) Acute respiratory failure with hypoxia: (9) Fever: (10) Morbid obesity with BMI of 50.0-59.9, adult: (11) Pickwickian syndrome: (12) BMI 50.0-59.9, adult: Plan Assessment: Intractable nausea and vomiting, with diarrhea. Clinical dehydration acute kidney injury. Laboratory markers raising suspicion of early development of sepsis. Acute hypoxic respiratory failure in the emergency room requiring application ofsupplemental oxygen. Fever. The exact infectious etiology is not clear. BMI of 56. Pickwickian syndrome. Artery disease. Diabetes with hyperglycemia. Plan: Hospital admission, inpatient status. Gentle hydration with IV fluids overnight. If he continues to need supplemental oxygen BiPAP may need to be applied I wouldput her at 12/5 with FiO2 of 30% and infraduction saturations of 90 to 92%. If she has another bout of diarrhea his stool will be sent for culture, PCR testing for infectious organisms, and C. difficile. Blood cultures x 2 were ordered while he was on the phone with the ER provider. Recheck labs in the morning. Insulin scale level 3. Clear liquid diet overnight and then consider advancing diet when she is showingclinical progress. It is possible that she has diverticulitis or an enterocolitis which has not yetdeclared itself on the CT scanning last night. Given the presence of the fever and progression and worsening of the symptoms I will start her on IV Levaquin and IV Flagyl and then monitor clinical progress. DVT prophylaxis with heparin 5000 units subcutaneously every 8 hours. IP vs OBS Justification Based on differential dx, clinical care plan, and risk of adverse events, if untreated, in my clinical judgement this patient requires an acute care setting as: INPATIENT because of an expectation of an over 2 midnight stay. Estimated length of stay (# of days): 4 Documented By: Vincenzo Ragsdale DO 2044 Signed By: <Electronically signed by Vincenzo Ragsdale DO> 02/13/242056 [facility] Work Phone: History general Narrative - Reported* Type Description Date Medical History type 2 diabetes Medical History hypertension Medical History overactve bladder Medical History heart failure Medical History CAD Medical History high cholesterol Medical History neuropathy Medical History problems with lower back Medical History neck pain Surgical History appendectomy Surgical History cholecystectomy Surgical History RENE with BSM Surgical History Left Knee Surgery Surgical History Sinus Surgery Surgical History Back Surgery- Lumbarectomy- L3 & L4 Surgical History Interior Cervical Fusion- C5 & C6 Hospitalization History See above [email or web address] Other History of Present illness Narrative* Patient with multiple comorbidities, some of which involve morbid obesity obstructive sleep apnea Long history of diabetes atherosclerotic [place] vessel coronary artery disease angina pectoris functional class II sedentary lifestyle chronic lower extremity edema, presents for follow-up after cardiac catheterization. * Technically challenging procedure, due to body habitus, right radial access unsuccessful. * Reports feeling reasonably well, no issues pertaining to the right groin, no swelling tenderness, right radial pulse strong to palpation today, no vascular compromise. * Continues to have anginal symptoms takes sublingual nitroglycerin occasionally, pattern is stable, usually with activity. Sometimes with emotional distress. * Was examined in the wheelchair. * Patient's health insurance nurse increased furosemide temporarily to 40 mg p.o. twice daily, and then patient says there was no improvement in lower extremity edema, her feet do not look much swollento me, currently on 40 mg daily, BMP shows GFR in the 30s. Potassium is within normal limits * No symptoms of hypoglycemia. * Cardiac catheterization findings were reviewed, patient has moderate coronary artery disease, and also subtotal occlusion of the distal LAD proximal segment followed by a tortuous underfilled diffusely diseased relatively small caliber LAD. LVEF is normal discussed with Dr. Fink my interventionalcolleague, decision is to continue medical therapy as the risk benefit does not favor proceeding with an intervention. * On 03/16/2023 glucose was 242 creatinine 1.38 GFR 42. * Assessment: * 1. Atherosclerotic [place] vessel coronary artery disease with crescendo/class III angina pectoris * 2. Morbid obesity * 3. Diabetes mellitus, insulin-dependent * 4. Difficulty with ambulation-predominantly gets around in the wheelchair * 5. Echocardiogram November 2021-LVEF 60 to 65%, impaired diastolic filling, aortic sclerosis, RV systolic pressure 26 mmHg, TAPSE 2.2 cm, left atrial volume index 41 mL per metered square. * 6. Left heart catheterization May 2019-right femoral approach-right dominant, normal left main, multiple stents overlapping mid LAD, patent, first diagonal branch 0% stenosis left circumflex nondominant, 1 major obtuse marginal branch, 50% proximal stenosis in the obtuse marginal branch, RCA rach nant large, multiple stents positioned in the midsegment with no indication of in-stent restenosis LVEF 65% LVEDP 32 mmHg. Report suggested diffuse typical diabetic coronary artery disease patient was hypertensive * 7. Patient's most recent PCI was to the distal RCA and that was done in April 2017 * 8. History of diverticulosis * 9. History of back surgery cholecystectomy * 10. Anaphylaxis to iodinated contrast * 11. Cardiac catheterization February 2023-LVEF 50% no regional wall motion abnormality in the SALAS view LVEDP 25 to 30 mmHg no systolic gradient across the aortic valve no appreciable mitral regurgitation.Right dominant system with mild diffuse disease, mid RCA 40 to 50% smooth stenosis left main 20% ashwini nosis left circumflex relatively large 50% to 60%ostial [...] Fink, functionally ostial circumflex was not significant. * We have a patient with class II/III angina pectoris with multiple comorbidities, and chronic diastolic heart failure hypertensive and diabetic kidney disease. * Recommendations: I suggested that we add oral nitrates, she declined, says she is already on too many medications and does not want to add any more. She cannot participate in cardiac rehab habilitation because her mobility is still restricted. She also has a blistering rash in the left leg, for which she sees primary care/dermatology. * Aggressive risk factor modification and medical therapy will be recommended. * Follow-up in August 2023 with comprehensive profile lipid profile and hemoglobin A1c prior to visit. * Regular follow-up with primary care and endocrinology. Patient was present during this visit. -[facility] 250 DO Work Phone: History of Present illness Narrative* This is a hospital discharge follow-up * Accompanied by to the office. * Reviewed extensive records from the hospital at [facility]. * Patient was admitted with acute metabolic encephalopathy related to hypoglycemia, she says her blood sugar was in the 20s * Patient was septic, related to urinary tract infection. Blood culture grew Streptococcus. Repeat cultures were negative and urine culture was negative. Treated initially with Rocephin and discharged on cefdinir. Infectious disease was involved * Gastroenteritis * Hyponatremia * Acute on chronic kidney injury, treated with gentle hydration seen by nephrology losartan and Aldactone were held Lasix was held initially and then resumed by nephrology at the time of discharge losartan and Aldactone were placed on hold. * Rehabilitated for 10 days postdischarge * She says she lost 10 pounds during the course of the hospitalization and after that * Laboratory data from May reviewed GFR is back to baseline. Potassium is normal. Blood pressure today is at target. * Gets around in a motorized wheelchair. * Denies chest pressure tightness or heaviness. * Cardiology saw patient during hospital stay, medical therapy recommended, I agree, particularly given her recent coronary angiography findings. * Has chronic 2+ lower extremity edema which is multifactorial. There is a dressing on the left leg, where a bleb had burst. * On 03/16/2023 glucose was 242 creatinine 1.38 GFR 42. RAD 23 glucose 286 BUN 28 creatinine 1.37 GFR 42 sodium 137 potassium 4.5 * Assessment: * 1. Atherosclerotic [place] vessel coronary artery disease with crescendo/class III angina pectoris * 2. Morbid obesity * 3. Diabetes mellitus, insulin-dependent * 4. Difficulty with ambulation-predominantly gets around in the wheelchair * 5. Echocardiogram November 2021-LVEF 60 to 65%, impaired diastolic filling, aortic sclerosis, RV systolic pressure 26 mmHg, TAPSE 2.2 cm, left atrial volume index 41 mL per metered square. * 6. Left heart catheterization May 2019-right femoral approach-right dominant, normal left main, multiple stents overlapping mid LAD, patent, first diagonal branch 0% stenosis left circumflex nondominant, 1 major obtuse marginal branch, 50% proximal stenosis in the obtuse marginal branch, RCA rach nant large, multiple stents positioned in the midsegment with no indication of in-stent restenosis LVEF 65% LVEDP 32 mmHg. Report suggested diffuse typical diabetic coronary artery disease patient was hypertensive * 7. Patient's most recent PCI was to the distal RCA and that was done in April 2017 * 8. History of diverticulosis * 9. History of back surgery cholecystectomy * 10. Anaphylaxis to iodinated contrast * 11. Cardiac catheterization February 2023-LVEF 50% no regional wall motion abnormality in the SALAS view LVEDP 25 to 30 mmHg no systolic gradient across the aortic valve no appreciable mitral regurgitation.Right dominant system with mild diffuse disease, mid RCA 40 to 50% smooth stenosis left main 20% ashwini nosis left circumflex relatively large 50% to 60%ostial [...] Fink, functionally ostial circumflex was not significant. * 12. Echocardiogram April 2023-LVEF 65 to 70%, diastolic dysfunction, elevated left atrial pressure, peak gradient across aortic valve 25 mmHg. Left atrial diameter 4.7 cm RV systolic pressure 40 mmHg,left atrial volume index 37 ml per metered square * Patient has multiple comorbidities as noted above. She has lost 10 pounds after her hospital stay with picture of sepsis acute on chronic kidney injury and several medications were changed. From now on, I think it is better if nephrology manages her diuretics and some of her antihypertensives such as LISA inhibitors and angiotensin receptor blockers. Angiotensin receptor maria esther and spironolactonewere held during hospital stay, and I defer to nephrology about resuming these agents or holding them, and I understand the rationale. Her kidney function is now back to baseline. She has chronic lower extremity edema which is multifactorial. She is not complaining of any angina pectoris. * Recommendations are to see her back in summer 2023, with comprehensive profile CBC lipid profile and hemoglobin A1c prior to that next visit. Patient's accompanied her to the office today. I also completely concur with cardiology recommendations for ongoing medical therapy, based on this pat ient's prior and most recent coronary angiography. [facility] 250 DO Work Phone: Hospital Discharge instructions Additional Instructions Continue current [facility] Work Phone: Hospital Discharge instructions Additional Instructions Follow-up with your primary care doctor Return to ED if develop worsening [facility]: Hospital Discharge instructionsAmbulatory Orders* Initiate Home Health Time Frame: 1 Day, Location: Determined By Patient * DME Home Medical Equipment Time Frame: 1 Day, Location: Determined By Patient Additional Instructions Please have blood work done first thing Monday morning, please call Dr. Milian's office (before 11:30am) and let them know when it is done so they can watch for the results. Please weigh your self daily and keep a log to take with you to your follow up appointments. Please call Dr. Milian's office if you gain 2 pounds in 24 hours or 5 pounds in 1 week. Apply Lisa Bandage to bilateral lower extremities during day time, starting from toes to knee height Wound care: -- Daily - left lower leg ulcers- clean wounds with vashe, wipe free loose debris, apply xeroform gauze, abd pads, kerlix then stockinette Home health to manage: - PT to eval and treat - Monitor VS routine - Hx. HTN - CHF assessments/education -- Daily weights - Please encourage to keep a daily log * Please call Dr. Milian's office if you gain 2 pounds in 24 hours or 5 pounds in 1 week. -- Apply Lisa Bandage to bilateral lower extremities during day time, starting from toes to knee height - Monitor blood sugars - Dx. DM - Wound care: -- Daily - left lower leg ulcers- clean wounds with vashe, wipe free loose debris, apply xeroform gauze, abd pads, kerlix then stockinette - Labs: -- BMP to be drawn Monday05/12/23 *Please have blood work done first thing Monday morning, please call Dr. Milian's office (before 11:30am) and let them know when it is done so they can watch for the results. [facility] Work Phone: Hospital Discharge instructions Additional Instructions SNF TO MANAGE: PT/OT to eval and treat Please follow Speech Therapy recommendations as listed in patient's discharge packet Monitor VS per protocol--Hx of HTN Monitor FSBS ACHS Monitor daily weights Monitor assessment--JOY with CKD Monitor Respiratory and Cardiovascular assessments--CHF Monitor Urinary assessment and for increased signs of infection--UTI, Bacteremia Monitor Skin assessment Skin care BID: *Theraworx protect to gluteal cleft and coccyx, then apply zinx barrier Daily wound care to left lower leg: *Clean wounds with vashe, apply xeroform gauze to wound beds, top with abd pads *and secure with kerlix then lisa wraps Maintain high risk fall precautions Care to be managed by [facility] Work Phone: Hospital Discharge instructionsAmbulatory Orders* DME Home Medical Equipment Time Frame: 1 Day, Location: Determined By Patient Additional Instructions Wound care daliy to lower leg ulcers: clean with vashe, wipe free loose debris, apply xeroform gauze to areas, 4x4s and secure with conforming [facility] Work Phone: Progress note Author Rohit Francis [facility] May 28, 2023 3:33pm Note Date/Time May 28, 2023 7:53 am [facility] [address] [place] [address] Hospitalist Progress Note Signed Patient: Namrata Jack MR#: [id number] : 1955 Acct:[id number] Age/Sex: 67 / F Adm Date: 3 Loc: Room: [address] [place] [address] Type: ADM IN Attending Dr: Rohit Francis MD Copies to: ~ Date of Service: 05/28/2023 Subjective Subjective Narrative: Assessment And Plan 63F with PMH of HTN, DM, HLD, Diabetic neuropathy, CAD s/p Stenting, Mild MR, GERD, diverticulosis, Morbid Obesity who p/w N/V/Chest pain. found with Fever, lactic acidosis and admitted for possible UTI Chest pain/Elevated Troponin rule out NSTEMI no chest pain now but reported that she has intermittent chest pain EKG normal Troponin is up to 500s likely type two NC due to sepsis. however given her CAD history NSTEMI can't be ruled out Telemetry Cardiology consult start Leponex ASA , Plavix , Metoprolol and statin Febrile illness , suspected due to urinary tract The patient received around 2L of IVF in the ED which done at 1 am . i did a revelation after giving IVF within 6 hours. the Capillary refill is more than 3 seconds,? Pulses present bilaterally and? Skin normal for ethnicity. repeat lactate level was better continue with Rocephin Await cultures IV hydration Clear diet Gastroenteritis C. difficile pending Stool study Supportive CKD Cr at baseline Chronic left lower extremity wound wound care nurse consulted Diabetes mellitus type, continue with home medical therapy, add sliding Hypomagnesemia replacement Addendum: blood Cx came back positive will increase ceftriaxone dose to 2 g daily and consult to ID . blood Cx to be repeated too in the am INTERVAL HPI: As Above, Pt resting in bed. feeling the same . Denies any chest pain, SOB now. didn't have any BMP so far. Chronic diseases: Unless mentioned Above, Essential home medications have been continued. DVT Px: Addressed Disposition: To be determined Plan of care Discussed with: the medical team, the patient Exam Physical Exam Vital Signs: Temp Pulse Resp BP Pulse Ox O2 Del Method 37.7 C H 95 H 18 146/78 H 95 Room Air 05/28/23 07:36 05/28/23 07:36 05/28/23 07:36 05/28/23 07:36 05/28/23 07:36 05/28/23 07:36 Narrative: GENERAL:Pleasant, cooperative, Not in acute distress. NECK: no JVD LUNGS: Lungs clear to auscultation. Normal respiratory effort. CARDIAC: normal S1 and S2; no rubs, murmurs, or gallops. ABDOMEN: Abdomen soft, minimal non focal tenderest . BS normal. No palpable masses or organomegaly. EXTREMITIES: no edema in LE bilaterally, both legs wrapped with lisa bandage no calf muscle tenderness. NEURO: No focal neurological deficits Objective Lab Results 05/28/23 05:51 05/28/23 05:51 Meds Allergies and Active Meds Allergies Penicillins Allergy (Severe, Verified 05/27/23 22:27) Anaphylaxis IV Dye Allergy (Severe, Uncoded 05/27/23 22:27) Anaphylaxis Active Meds: Active Medications Generic Name Dose Route Start Last Admin Trade Name Ellie PRN Reason Stop Dose Admin Acetaminophen 650 mg 05/28/23 04:10 Acetaminophen 325 Mg Tablet PO 05/27/24 04:09 Q4H PRN Pain Scale 1 - 5 Hydrocodone Bitart/Acetaminophen 1 tab 05/28/23 04:08 05/28/23 05:08 Hydrocodone/Acetaminophen 10-325 Mg Tablet PO 1 tab QID PRN Administration Pain Albuterol 2.5 mg 05/28/23 04:10 Albuterol Neb 2.5 Mg/3 Ml Vial.Neb INHALATION 05/27/24 04:09 Q2H PRN Shortness Of Breath Aspirin 81 mg 05/28/23 09:00 Aspirin 81 Mg Tablet. PO 05/27/24 08:59 DAILY TONY Atorvastatin Calcium 80 mg 05/28/23 22:00 Atorvastatin 80 Mg Tablet PO 05/27/24 21:59 HS [facility] Clopidogrel Bisulfate 75 mg 05/28/23 09:00 Clopidogrel Bisulfate 75 Mg Tablet PO 05/27/24 08:59 DAILY TONY Cyclobenzaprine HCl 10 mg 05/28/23 04:08 Cyclobenzaprine 10 Mg Tablet PO 05/27/24 04:07 TID PRN Spasms Dextrose 0 gm 05/28/23 04:10 Dextrose 50% In Water 25 Gm/50 Ml Syringe IV-PUSH 05/27/24 04:09 PRN PRN Hypoglycemia Docusate Sodium 200 mg 05/28/23 04:10 Docusate 100 Mg Capsule PO 05/27/24 04:09 BID PRN Constipation Enoxaparin Sodium 150 mg 05/28/23 09:00 Enoxaparin 150 Mg/Ml Syringe SUBCUT 05/27/24 08:59 Q12HR TONY Famotidine 20 mg 05/28/23 22:00 Famotidine 20 Mg Tablet PO 05/27/24 21:59 QHS TONY Gabapentin 600 mg 05/28/23 09:00 Gabapentin 300 Mg Capsule PO 05/27/24 08:59 BID TONY Glucose 0 gm 05/28/23 04:10 Dextrose 40% Gel 15 Gm Tube PO 05/27/24 04:09 PRN PRN Hypoglycemia Ceftriaxone Sodium 1 gm in 50 mls @ 100 mls/hr 05/29/23 02:00 Rocephin IV Q24H TONY Sodium Chloride 1,000 mls @ 100 mls/hr 05/28/23 04:15 05/28/23 05:08 0.9% Sodium Chloride 1,000 Ml IV 05/28/23 15:03 75 mls/hr .Q10H TONY Administration Magnesium Sulfate 2 gm in 50 mls @ 12.5 mls/hr 05/28/23 04:23 05/28/23 05:22 Magnesium Sulf 2gm-*Swfi* IV 05/28/23 08:22 12.5 mls/hr ONCE ONE Administration Insulin Aspart 0 units 05/28/23 08:00 Insulin Aspart 300 Units/3 Ml Insuln.Pen SUBCUT 05/27/24 07:59 TID.WM.HS [facility] Protocol Insulin Aspart 40 units 05/28/23 08:00 Insulin Aspart 300 Units/3 Ml Insuln.Pen SUBCUT 05/27/24 07:59 TID.WITH.MEALS [facility] Insulin Glargine 50 units 05/28/23 07:30 Insulin Glargine 300 Units/3 Ml Insuln.Pen SUBCUT 05/27/24 07:29 DAILY.0730A [facility] Insulin Glargine 40 units 05/28/23 22:00 Insulin Glargine 300 Units/3 Ml Insuln.Pen SUBCUT 05/27/24 21:59 HS [facility] Metoprolol Tartrate 12.5 mg 05/28/23 09:00 Metoprolol Tartrate 12.5 Mg Tablet PO 05/27/24 08:59 BID TONY Oxybutynin Chloride 5 mg 05/28/23 09:00 Oxybutynin Chloride 5 Mg Tablet PO 05/27/24 08:59 BID TONY Prochlorperazine Edisylate 5 mg 05/28/23 04:10 05/28/23 05:23 Prochlorperazine Edisylate 10 Mg/2 Ml Vial IV-PUSH 05/27/24 04:09 5 mg Q4H PRN Administration Nausea And Vomiting Ranolazine 500 mg 05/28/23 09:00 Ranolazine 500 Mg Tab.Er.12h PO 05/27/24 08:59 BID [facility] Sertraline HCl 100 mg 05/28/23 09:00 Sertraline 100 Mg Tablet PO 07/29/24 08:59 DAILY TONY Spironolactone 25 mg 05/28/23 09:00 Spironolactone 25 Mg Tablet PO 05/27/24 08:59 BID TONY Zolpidem Tartrate 5 mg 05/28/23 04:08 Zolpidem 5 Mg Tablet PO 11/24/23 04:07 HS PRN Insomnia Documented By: Rohit Francis MD 05/28/23 0741 Signed By: <Electronically signed by Rohit Francis MD> 05/28/23 5476 [facility] Work Phone: Progress note Author Fahad Dobson [facility] May 29, 2023 9:02am Note Date/Time May 29, 2023 8:54 am [facility] [address] [place] [address] Hospitalist Progress Note Signed Patient: Namrata Jack MR#: [id number] : 1955 Acct:[id number] Age/Sex: 67 / F Adm Date: 3 Loc: Room: [address] [place] [address] Type: ADM IN Attending Dr: Fahad Dobson MD Copies to: ~ Date of Service: 05/29/2023 Subjective Subjective Narrative: Assessment And Plan 63F with PMH of HTN, DM, HLD, Diabetic neuropathy, CAD s/p Stenting, Mild MR, GERD, diverticulosis, Morbid Obesity who p/w N/V/Chest pain. found with Fever, lactic acidosis and admitted for possible UTI Chest pain/Elevated Troponin rule out NSTEMI Seen and examined Clinically stable No more chest pain Seen by cardiology No further cardiac work up Continue aspirin and Plavix Continue Lopressor Continue Ranexa Febrile illness , suspected due to urinary tract Clinically better No fever Chest: Cardiomegaly with vascular congestion.? No consolidation pneumothorax pleural effusion or free air. Left shoulder: Evidence of calcific tendinitis.? No acute bony process is seen.?Mild degenerative changes of the AC and glenohumeral joints.? Blood cultures are pending Urine cultures is pending Rocephin IV daily Gastroenteritis No more diarrhea Mild nausea NO abdominal pain Hyponatremia: Improving / BMP in am Acute on CKD Kidney function slightly worse today creatinine up to 2.04 Hold Losartan BMP in am Chronic left lower extremity wound wound care nurse consulted Diabetes mellitus type, continue with home medical therapy, add sliding Hypomagnesemia replacement Exam Physical Exam Vital Signs: Temp Pulse Resp BP Pulse Ox O2 Del Method 98.8 F 80 18 132/78 93 L Room Air 05/29/23 04:00 05/29/23 04:00 05/29/23 04:00 05/29/23 04:00 05/29/23 04:00 05/29/23 04:00 Objective Lab Results 05/29/23 06:28 05/29/23 06:28 Microbiology Results Microbiology 05/27/23 23:20 Blood - Left Antecubital Blood Culture - Preliminary Presumptive Viridans Strep 05/27/23 23:20 Blood - Left Antecubital Bacterial ID (NA Multiplex Assay) - Final 05/29/23 02:00 Stool Stool Lactoferrin - Final Meds Allergies and Active Meds Allergies Penicillins Allergy (Severe, Verified 05/27/23 22:27) Anaphylaxis IV Dye Allergy (Severe, Uncoded 05/27/23 22:27) Anaphylaxis Active Meds: Active Medications Generic Name Dose Route Start Last Admin Trade Name Barryq PRN Reason Stop Dose Admin Acetaminophen 650 mg 05/28/23 04:10 05/28/23 09:02 Acetaminophen 325 Mg Tablet PO 05/27/24 04:09 650 mg Q4H PRN Administration Pain Scale 1 - 5 Hydrocodone Bitart/Acetaminophen 1 tab 05/28/23 04:08 05/29/23 06:31 Hydrocodone/Acetaminophen 10-325 Mg Tablet PO 1 tab QID PRN Administration Pain Albuterol 2.5 mg 05/28/23 04:10 Albuterol Neb 2.5 Mg/3 Ml Vial.Neb INHALATION 05/27/24 04:09 Q2H PRN Shortness Of Breath Aspirin 81 mg 05/28/23 09:00 05/28/23 09:03 Aspirin 81 Mg Tablet.Dr OERLLANA 05/27/24 08:59 81 mg DAILY TONY Administration Atorvastatin Calcium 80 mg 05/28/23 22:00 05/28/23 21:10 Atorvastatin 80 Mg Tablet PO 05/27/24 21:59 80 mg HS TONY Administration Clopidogrel Bisulfate 75 mg 05/28/23 09:00 05/28/23 09:02 Clopidogrel Bisulfate 75 Mg Tablet PO 05/27/24 08:59 75 mg DAILY TONY Administration Cyclobenzaprine HCl 10 mg 05/28/23 04:08 Cyclobenzaprine 10 Mg Tablet PO 05/27/24 04:07 TID PRN Spasms Dextrose 0 gm 05/28/23 04:10 Dextrose 50% In Water 25 Gm/50 Ml Syringe IV-PUSH 05/27/24 04:09 PRN PRN Hypoglycemia Docusate Sodium 200 mg 05/28/23 04:10 05/28/23 18:21 Docusate 100 Mg Capsule PO 05/27/24 04:09 200 mg BID PRN Administration Constipation Enoxaparin Sodium 150 mg 05/28/23 09:00 05/29/23 04:25 Enoxaparin 150 Mg/Ml Syringe SUBCUT 05/27/24 08:59 Not Given Q12HR [facility] Famotidine 20 mg 05/28/23 22:00 05/28/23 21:10 Famotidine 20 Mg Tablet PO 05/27/24 21:59 20 mg QHS TONY Administration Gabapentin 600 mg 05/28/23 09:00 05/28/23 21:11 Gabapentin 300 Mg Capsule PO 05/27/24 08:59 600 mg BID TONY Administration Glucose 0 gm 05/28/23 04:10 Dextrose 40% Gel 15 Gm Tube PO 05/27/24 04:09 PRN PRN Hypoglycemia Ceftriaxone Sodium 2 gm in 50 mls @ 100 mls/hr 05/28/23 16:00 05/28/23 16:00 Rocephin IV 100 mls/hr Q24H TONY Administration Insulin Aspart 0 units 05/28/23 08:00 05/28/23 21:13 Insulin Aspart 300 Units/3 Ml Insuln.Pen SUBCUT 05/27/24 07:59 Not Given TID.WM.HS [facility] Protocol Insulin Aspart 40 units 05/28/23 08:00 05/28/23 16:56 Insulin Aspart 300 Units/3 Ml Insuln.Pen SUBCUT 05/27/24 07:59 Not Given TID.WITH.MEALS TONY Insulin Glargine 50 units 05/28/23 07:30 05/28/23 09:17 Insulin Glargine 300 Units/3 Ml Insuln.Pen SUBCUT 05/27/24 07:29 50 units DAILY.0730A TONY Administration Insulin Glargine 40 units 05/28/23 22:00 05/28/23 21:12 Insulin Glargine 300 Units/3 Ml Insuln.Pen SUBCUT 05/27/24 21:59 Not Given HS TONY Metoprolol Tartrate 12.5 mg 05/28/23 09:00 05/28/23 21:10 Metoprolol Tartrate 12.5 Mg Tablet PO 05/27/24 08:59 12.5 mg BID TONY Administration Oxybutynin Chloride 5 mg 05/28/23 09:00 05/28/23 21:10 Oxybutynin Chloride 5 Mg Tablet PO 05/27/24 08:59 5 mg BID TONY Administration Prochlorperazine Edisylate 5 mg 05/28/23 04:10 05/29/23 06:31 Prochlorperazine Edisylate 10 Mg/2 Ml Vial IV-PUSH 05/27/24 04:09 5 mg Q4H PRN Administration Nausea And Vomiting Ranolazine 500 mg 05/28/23 09:00 05/28/23 21:10 Ranolazine 500 Mg Tab.Er.12h PO 05/27/24 08:59 500 mg BID TONY Administration Sertraline HCl 100 mg 05/28/23 09:00 05/28/23 09:02 Sertraline 100 Mg Tablet PO 05/27/24 08:59 100 mg DAILY TONY Administration Spironolactone 25 mg 05/28/23 09:00 Spironolactone 25 Mg Tablet PO 05/27/24 08:59 BID TONY Zolpidem Tartrate 5 mg 05/28/23 04:08 Zolpidem 5 Mg Tablet PO 11/24/23 04:07 HS PRN Insomnia A&P - Hospitalist Assessment/Plan (1) Acute UTI: Plan 1. Fever suspected due to urinary tract I could not appreciate any other focal signs of infection, however patient complains of diarrhea as well but no abdominal pain. We will check for C. difficile. For now continue with Rocephin Await cultures 2. Mild acute kidney injury, start gentle hydration, recheck in a.m. 3. Chronic left lower extremity wound, I do not appreciate any active signs of infection, wound care nurse consulted 4. Chest pain, with underlying coronary artery disease, status post multiple intervention, with last cardiac cath in February 2023, no intervention done at that time. Troponins slightly elevated, EKG nonischemic, will consult cardiology For now continue with antiplatelets, troponins flat 5. Elevated lactic acid -again patient denies any abdominal pain but she does have diarrhea For now continue with hydration, blood pressure seems to be stable, no hypotension noted Unlikely mesenteric ischemia as the patient denies abdominal pain Recheck lactic acid 6. Diabetes mellitus type 2, continue with home medical therapy, add sliding 7. Hypomagnesemia replacement Documented By: Fahad Dobson MD 05/29/23 0844 Signed By: <Electronically signed by Fahad Dobson MD> 05/29/23 0902 [facility] Work Phone: Progress note Author Pinky Kern [facility] May 29, 2023 10:22am Note Date/Time May 29, 2023 10:2 2am [facility] [address] [place] [address] Cardiology Progress Note Signed Patient: Namrata Jack MR#: [id number] : 1955 Acct:[id number] Age/Sex: 67 / F Adm Date: 3 Loc: Room: [address] [place] [address] Type: ADM IN Attending Dr: Fahad Dobson MD Copies to: ~ Date of Service: 05/29/2023 Subjective Interval history: Patient feels better. Afebrile. No chest pain Exam Physical Exam Vital Signs: Temp Pulse Resp BP Pulse Ox O2 Del Method 98.8 F 80 18 132/78 93 L Room Air 05/29/23 04:00 05/29/23 04:00 05/29/23 04:00 05/29/23 04:00 05/29/23 04:00 05/29/23 04:00 HEENT Head: atraumatic Mouth: oral mucosae normal Eyes General: appearance normal, both eyes and all related structures Pupils: PERRL Neck Neck: normal visual inspection, supple and no lymphadenopathy noted Neck mass: No Thyroid: thyroid normal Carotids: normal carotid upstroke Chest Chest palpation & inspection: normal inspection of the chest Resp Effort & Inspection: normal respiratory effort Auscultation: clear to auscultation bilaterally Cardio Palpation: normal PMI Rate: regular rate Rhythm: regular rhythm Heart Sounds: S1 normal, S2 normal and murmur systolic II/ and at the left sternal border GI Palpation: soft and no hepatosplenomegaly Percussion: normal to percussion Auscultation: normal bowel sounds Extrem General: full ROM, capillary refill normal and no clubbing, cyanosis or edema Objective Labs 05/29/23 06:28 05/29/23 06:28 Labs: Laboratory Results - last 24 hr 05/28/23 05/28/23 05/28/23 11:44 12:16 14:53 Corrected WBC RBC Hgb Hct MCV MCH MCHC RDW Plt Count MPV PHA Creatinine Clear Sodium Potassium Chloride Carbon Dioxide Anion Gap BUN Creatinine Est GFR (CKD-EPI) Glucose POC Glucose 229 POC Glucose Comment Glu2: cleaned meter Lactic Acid 1.5 Calcium Troponin I High Sens 476.9 H* C. difficile Tox B Gene 05/28/23 05/28/23 05/29/23 16:28 16:51 02:00 Corrected WBC RBC Hgb Hct MCV MCH MCHC RDW Plt Count MPV PHA Creatinine Clear Sodium Potassium Chloride Carbon Dioxide Anion Gap BUN Creatinine Est GFR (CKD-EPI) Glucose POC Glucose 52 L* 82 POC Glucose Comment Glu2: cleaned meter Lactic Acid Calcium Troponin I High Sens C. difficile Tox B Gene Negative 05/29/23 05/29/23 05/29/23 06:28 06:28 06:43 Corrected WBC 12.7 H RBC 3.71 Hgb 11.6 L Hct 34.1 MCV 92.0 MCH 31.2 MCHC 33.9 RDW 13.8 Plt Count 228 MPV 7.6 PHA Creatinine Clear 38.83 Sodium 132 L Potassium 3.9 Chloride 95 L Carbon Dioxide 27.4 Anion Gap 13.5 BUN 39 H Creatinine 2.04 H Est GFR (CKD-EPI) 26.083 Glucose 161 H D POC Glucose 174 POC Glucose Comment Lactic Acid Calcium 7.9 L Troponin I High Sens C. difficile Tox B Gene A&P - Cardiology (1) Acute UTI: Code(s): N39.0 - Urinary tract infection, site not specified Status: Acute Plan Assessment 1. Acute coronary syndrome I suspect likely due to type II myocardial infarction. Patient is known to have a history of severe disease affecting the apical segment of the LAD. Her last heart cath was 2 months ago. She had no recurrence of her chest pain. She appears to be hemodynamically stable. Her EKG is nonacute. 2. Febrile illness treated for presumed urinary tract infection the patient hadsignificant GI symptomatology including recurrent nausea and vomiting 3. Mild aortic stenosis 4. Recurrent nausea and vomiting seem to have improved 5. Hypertension 6. Hyperlipidemia 7. Diabetes mellitus 8. Stage III chronic kidney disease 9. Morbid obesity with BMI 59 Plan 1. Continue aspirin, Plavix, metoprolol, Ranexa and heparin 2. Her febrile illness being addressed by the hospitalist service 3. I reviewed with the patient invasive or conservative management. Considering she had recent heart cath and her anatomy is well known medical therapy was chosen by the patient 4. Continue with aggressive approach risk factor modification Documented By: Pinky Kern MD 05/29/23 1021 Signed By: <Electronically signed by MD Pinky Kern> 05/29/23 1022 [facility] Work Phone: Progress note Author Fahad Dobson [facility] May 30, 2023 7:37am Note Date/Time May 30, 2023 7:1 1am [facility] [address] [place] [address] Hospitalist Progress Note Signed Patient: Namrata Jack MR#: [id number] : 1955 Acct:[id number] Age/Sex: 67 / F Adm Date: 3 Loc: 3T Room: [address] [place] [address] Type: ADM IN Attending Dr: Fahad Dobson MD Copies to: ~ Date of Service: 05/30/2023 Subjective Subjective Narrative: Assessment And Plan 63F with PMH of HTN, DM, HLD, Diabetic neuropathy, CAD s/p Stenting, Mild MR, GERD, diverticulosis, Morbid Obesity who p/w N/V/Chest pain. found with Fever, lactic acidosis and admitted for possible UTI Acute metabolic encephalopathy Seen and examined Clinically better More awake Blood sugar is improving ON d10 at 50 cc per hour Chest pain/Elevated Troponin rule out NSTEMI Resolved No more chest pain Seen by cardiology No further cardiac work up Continue aspirin and Plavix Continue Lopressor Continue Ranexa Febrile illness , suspected due to urinary tract Clinically better No fever Blood cultures are negative On Rocephin IV daily Gastroenteritis Resolved No more diarrhea NO abdominal pain Hyponatremia: Improving / BMP in am Acute on CKD Kidney function slightly worse today creatinine up to 2.29 Hold Losartan BMP in am kidney Nephrology consult Chronic left lower extremity wound wound care nurse consulted Diabetes mellitus type, Insulin was held due to hypoglycemia was placed on D10 Blood sugar is improving Hypomagnesemia replaced Exam Physical Exam Vital Signs: Temp Pulse Resp BP Pulse Ox O2 Del Method O2 Flow Rate 97.8 F 72 18 133/76 100 Nasal Cannula 2 05/30/23 04:45 05/30/23 05:21 05/30/23 05:21 05/30/23 04:45 05/30/23 04:45 05/30/23 04:45 05/30/23 04:45 Narrative: General patient laying in bed alert awake oriented x3 HEENT pupils are equal round reactive light Neck supple no JVD no carotid bruit CVS S1-S2 regular rate and rhythm no murmur no gallop Chest clear to auscultation percussion Abdomen soft bowel sounds normoactive no rebound no Extremities +1 edema Neurologic exam oriented x3 alert awake no focal deficit Skin exam normal no skin rash or lesion Musculoskeletal exam normal no movement limitation no joint effusion Objective Lab Results 05/30/23 05:43 05/29/23 06:28 Microbiology Results Microbiology 05/29/23 06:21 Blood - Right Antecubital Blood Culture - Preliminary No Growth 1 Day 05/29/23 06:28 Blood - Right Hand Blood Culture - Preliminary No Growth 1 Day 05/27/23 22:42 Blood - Right Antecubital Blood Culture - Preliminary No Growth 2 Days 05/27/23 23:20 Blood - Left Antecubital Blood Culture - Preliminary Strep dysgalactiae 05/27/23 23:20 Blood - Left Antecubital Bacterial ID (NA Multiplex Assay) - Final 05/28/23 00:42 Urine - Straight Cath Urine Culture - Preliminary No Growth 1 Day Meds Allergies and Active Meds Allergies Penicillins Allergy (Severe, Verified 05/27/23 22:27) Anaphylaxis IV Dye Allergy (Severe, Uncoded 05/27/23 22:27) Anaphylaxis Active Meds: Active Medications Generic Name Dose Route Start Last Admin Trade Name Freq PRN Reason Stop Dose Admin Acetaminophen 650 mg 05/28/23 04:10 05/28/23 09:02 Acetaminophen 325 Mg Tablet PO 05/27/24 04:09 650 mg Q4H PRN Administration Pain Scale 1 - 5 Hydrocodone Bitart/Acetaminophen 1 tab 05/28/23 04:08 05/29/23 06:31 Hydrocodone/Acetaminophen 10-325 Mg Tablet PO 1 tab QID PRN Administration Pain Albuterol 2.5 mg 05/28/23 04:10 05/30/23 05:16 Albuterol Neb 2.5 Mg/3 Ml Vial.Neb INHALATION 05/27/24 04:09 2.5 mg Q2H PRN Administration Shortness Of Breath Aspirin 81 mg 05/28/23 09:00 05/29/23 08:46 Aspirin 81 Mg Tablet. PO 05/27/24 08:59 81 mg DAILY TONY Administration Atorvastatin Calcium 80 mg 05/28/23 22:00 05/29/23 21:44 Atorvastatin 80 Mg Tablet PO 05/27/24 21:59 80 mg HS TONY Administration Clopidogrel Bisulfate 75 mg 05/28/23 09:00 05/29/23 08:46 Clopidogrel Bisulfate 75 Mg Tablet PO 05/27/24 08:59 75 mg DAILY TONY Administration Cyclobenzaprine HCl 10 mg 05/28/23 04:08 Cyclobenzaprine 10 Mg Tablet PO 05/27/24 04:07 TID PRN Spasms Dextrose 0 gm 05/28/23 04:10 05/29/23 16:52 Dextrose 50% In Water 25 Gm/50 Ml Syringe IV-PUSH 05/27/24 04:09 25 gm PRN PRN Administration Hypoglycemia Docusate Sodium 200 mg 05/28/23 04:10 05/28/23 18:21 Docusate 100 Mg Capsule PO 05/27/24 04:09 200 mg BID PRN Administration Constipation Enoxaparin Sodium 150 mg 05/28/23 09:00 05/29/23 22:08 Enoxaparin 150 Mg/Ml Syringe SUBCUT 05/27/24 08:59 150 mg Q12HR TONY Administration Famotidine 20 mg 05/28/23 22:00 05/29/23 21:45 Famotidine 20 Mg Tablet PO 05/27/24 21:59 20 mg QHS TONY Administration Gabapentin 600 mg 05/28/23 09:00 05/29/23 21:45 Gabapentin 300 Mg Capsule PO 05/27/24 08:59 600 mg BID TONY Administration Glucose 0 gm 05/28/23 04:10 Dextrose 40% Gel 15 Gm Tube PO 05/27/24 04:09 PRN PRN Hypoglycemia Ceftriaxone Sodium 2 gm in 50 mls @ 100 mls/hr 05/28/23 16:00 05/29/23 17:05 Rocephin IV 100 mls/hr Q24H TONY Administration Dextrose 1,000 mls @ 50 mls/hr 05/29/23 17:15 05/29/23 17:27 10 % Dextrose In Water IV 05/28/24 17:14 50 mls/hr .Q20H TOYN Administration Insulin Aspart 0 units 05/28/23 08:00 05/29/23 17:05 Insulin Aspart 300 Units/3 Ml Insuln.Pen SUBCUT 05/27/24 07:59 Not Given TID.[facility] Protocol Insulin Aspart 40 units 05/28/23 08:00 05/29/23 17:05 Insulin Aspart 300 Units/3 Ml Insuln.Pen SUBCUT 05/27/24 07:59 Not Given TID.WITH.MEALS [facility] Insulin Glargine 50 units 05/28/23 07:30 05/29/23 08:49 Insulin Glargine 300 Units/3 Ml Insuln.Pen SUBCUT 05/27/24 07:29 50 units DAILY.0730A [facility] Administration Insulin Glargine 40 units 05/28/23 22:00 05/28/23 21:12 Insulin Glargine 300 Units/3 Ml Insuln.Pen SUBCUT 05/27/24 21:59 Not Given [facility] Metoprolol Tartrate 12.5 mg 05/28/23 09:00 05/29/23 21:44 Metoprolol Tartrate 12.5 Mg Tablet PO 05/27/24 08:59 12.5 mg BID TONY Administration Oxybutynin Chloride 5 mg 05/28/23 09:00 05/29/23 21:45 Oxybutynin Chloride 5 Mg Tablet PO 05/27/24 08:59 5 mg BID TONY Administration Prochlorperazine Edisylate 5 mg 05/28/23 04:10 05/29/23 06:31 Prochlorperazine Edisylate 10 Mg/2 Ml Vial IV-PUSH 05/27/24 04:09 5 mg Q4H PRN Administration Nausea And Vomiting Ranolazine 500 mg 05/28/23 09:00 05/29/23 21:45 Ranolazine 500 Mg Tab.Er.12h PO 05/27/24 08:59 500 mg BID TONY Administration Sertraline HCl 100 mg 05/28/23 09:00 05/29/23 08:46 Sertraline 100 Mg Tablet PO 05/27/24 08:59 100 mg DAILY TONY Administration Spironolactone 25 mg 05/28/23 09:00 Spironolactone 25 Mg Tablet PO 05/27/24 08:59 BID TONY Zinc Oxide 1 applic 05/29/23 10:52 Zinc Oxide 20% Ointment 56 Gm Tube TOPICAL 05/28/24 10:51 PRN PRN Rash Zolpidem Tartrate 5 mg 05/28/23 04:08 Zolpidem 5 Mg Tablet PO 11/24/23 04:07 HS PRN Insomnia A&P - Hospitalist Assessment/Plan (1) Acute UTI: Plan 1. Fever suspected due to urinary tract I could not appreciate any other focal signs of infection, however patient complains of diarrhea as well but no abdominal pain. We will check for C. difficile. For now continue with Rocephin Await cultures 2. Mild acute kidney injury, start gentle hydration, recheck in a.m. 3. Chronic left lower extremity wound, I do not appreciate any active signs of infection, wound care nurse consulted 4. Chest pain, with underlying coronary artery disease, status post multiple intervention, with last cardiac cath in February 2023, no intervention done at that time. Troponins slightly elevated, EKG nonischemic, will consult cardiology For now continue with antiplatelets, troponins flat 5. Elevated lactic acid -again patient denies any abdominal pain but she does have diarrhea For now continue with hydration, blood pressure seems to be stable, no hypotension noted Unlikely mesenteric ischemia as the patient denies abdominal pain Recheck lactic acid 6. Diabetes mellitus type 2, continue with home medical therapy, add sliding 7. Hypomagnesemia replacement Documented By: Fahad Dobson MD 05/30/23 0708 Signed By: <Electronically signed by Fahad Dobson MD> 05/30/23 0737 [facility] Work Phone: Progress note Author Deep Eubanks [facility] May 30, 2023 9:55am Note Date/Time May 30, 2023 9:5 5am [facility] [address] [place] [address] Infect. Disease Progress Note Signed Patient: Namrata Jack MR#: [id number] : 1955 Acct:[id number] Age/Sex: 67 / F Adm Date: 3 Loc: Room: [address] [place] [address] Type: ADM IN Attending Dr: Fahad Dobson MD Copies to: ~ Date of Service: 05/30/2023 Subjective Interval history: Patient no longer having nausea but states when she tries to eat food is gettingstuck. This occurs with liquids as well. Exam Physical Exam Vital Signs: Temp Pulse Resp BP Pulse Ox O2 Del Method O2 Flow Rate 97.8 F 75 14 120/72 97 Nasal Cannula 2 05/30/23 07:41 05/30/23 07:41 05/30/23 07:41 05/30/23 07:41 05/30/23 07:41 05/30/23 08:00 05/30/23 08:00 Const General: cooperative and no acute distress Orientation: oriented x3 HEENT Head: normal to inspection Ears: hearing grossly normal bilaterally Mouth: oral mucosae normal Eyes General: appearance normal, both eyes and all related structures Neck Neck: normal visual inspection Chest Chest palpation & inspection: normal inspection of the chest Resp Effort & Inspection: normal respiratory effort Auscultation: clear to auscultation bilaterally Cardio Palpation: normal PMI Rate: regular rate Rhythm: regular rhythm GI Inspection: normal to inspection Palpation: soft and nontender Auscultation: normal bowel sounds Skin General: other (Left lower extremity visualized. Superficial ulcerations noted. ) Other: Erythematous changes on left lower extremity chronic do not appear cellulitic Neuro General: patient oriented x3 Extrem General: abnormal to inspection (Lisa bandages) Objective Labs CBC/BMP: CBC, BMP 05/30/23 05/30/23 05:43 05:43 Corrected WBC 12.3 H Uncorrected WBC Count 12.3 H RBC 3.53 L Hgb 10.9 L Hct 32.1 L Plt Count 202 Sodium 131 L Potassium 3.2 L Chloride 95 L Carbon Dioxide 29.6 Anion Gap 9.6 BUN 45 H Creatinine 2.29 H Calcium 8.4 L Labs: 05/30/23 05:43 BUN 45 H Creatinine 2.29 H Microbiology Microbiology: Microbiology - Results from entire visit 05/28/23 00:42 Urine - Straight Cath Urine Culture - Final No Growth 2 Days 05/27/23 23:20 Blood - Left Antecubital Blood Culture - Preliminary Strep dysgalactiae 05/27/23 23:20 Blood - Left Antecubital Bacterial ID (NA Multiplex Assay) - Final 05/29/23 06:21 Blood - Right Antecubital Blood Culture - Preliminary No Growth 1 Day 05/29/23 06:28 Blood - Right Hand Blood Culture - Preliminary No Growth 1 Day 05/27/23 22:42 Blood - Right Antecubital Blood Culture - Preliminary No Growth 2 Days 05/29/23 02:00 Stool Stool Lactoferrin - Final Allergies and Medications Allergies and Active Meds Allergies Penicillins Allergy (Severe, Verified 05/27/23 22:27) Anaphylaxis IV Dye Allergy (Severe, Uncoded 05/27/23 22:27) Anaphylaxis Active Medications Acetaminophen (Acetaminophen 325 Mg Tablet) 650 mg PO Q4H PRN PRN Reason: Pain Scale 1 - 5 Stop: 05/27/24 04:09 Last Admin: 05/28/23 09:02 Dose: 650 mg Hydrocodone Bitart/Acetaminophen (Hydrocodone/Acetaminophen 10-325 Mg Tablet) 1tab PO QID PRN PRN Reason: Pain Last Admin: 05/29/23 06:31 Dose: 1 tab Albuterol (Albuterol Neb 2.5 Mg/3 Ml Vial.Neb) 2.5 mg INHALATION Q2H PRN PRN Reason: Shortness Of Breath Stop: 05/27/24 04:09 Last Admin: 05/30/23 05:16 Dose: 2.5 mg Aspirin (Aspirin 81 Mg Tablet.Dr) 81 mg PO DAILY [facility] Stop: 05/27/24 08:59 Last Admin: 05/30/23 08:25 Dose: 81 mg Atorvastatin Calcium (Atorvastatin 80 Mg Tablet) 80 mg PO HS [facility] Stop: 05/27/24 21:59 Last Admin: 05/29/23 21:44 Dose: 80 mg Clopidogrel Bisulfate (Clopidogrel Bisulfate 75 Mg Tablet) 75 mg PO DAILY [facility] Stop: 05/27/24 08:59 Last Admin: 05/30/23 08:25 Dose: 75 mg Cyclobenzaprine HCl (Cyclobenzaprine 10 Mg Tablet) 10 mg PO TID PRN PRN Reason: Spasms Stop: 05/27/24 04:07 Dextrose (Dextrose 50% In Water 25 Gm/50 Ml Syringe) 0 gm IV-PUSH PRN PRN PRN Reason: Hypoglycemia Stop: 05/27/24 04:09 Last Admin: 05/29/23 16:52 Dose: 25 gm Docusate Sodium (Docusate 100 Mg Capsule) 200 mg PO BID PRN PRN Reason: Constipation Stop: 05/27/24 04:09 Last Admin: 05/28/23 18:21 Dose: 200 mg Enoxaparin Sodium (Enoxaparin 150 Mg/Ml Syringe) 150 mg SUBCUT Q12HR [facility] Stop: 05/27/24 08:59 Last Admin: 05/30/23 08:54 Dose: 150 mg Famotidine (Famotidine 20 Mg Tablet) 20 mg PO QHS [facility] Stop: 05/27/24 21:59 Last Admin: 05/29/23 21:45 Dose: 20 mg Gabapentin (Gabapentin 300 Mg Capsule) 600 mg PO BID [facility] Stop: 05/27/24 08:59 Last Admin: 05/30/23 08:24 Dose: 600 mg Glucose (Dextrose 40% Gel 15 Gm Tube) 0 gm PO PRN PRN PRN Reason: Hypoglycemia Stop: 05/27/24 04:09 Ceftriaxone Sodium (Rocephin) 2 gm in 50 mls @ 100 mls/hr IV Q24H [facility] Last Admin: 05/29/23 17:05 Dose: 100 mls/hr Dextrose (10 % Dextrose In Water) 1,000 mls @ 50 mls/hr IV .Q20H [facility] Stop: 05/28/24 17:14 Last Admin: 05/29/23 17:27 Dose: 50 mls/hr Insulin Aspart (Insulin Aspart 300 Units/3 Ml Insuln.Pen) 0 units SUBCUT TID.[facility]; Protocol Stop: 05/27/24 07:59 Last Admin: 05/29/23 17:05 Dose: Not Given Insulin Aspart (Insulin Aspart 300 Units/3 Ml Insuln.Pen) 40 units SUBCUT TID.WITH.MEALS [facility] Stop: 05/27/24 07:59 Last Admin: 05/29/23 17:05 Dose: Not Given Insulin Glargine (Insulin Glargine 300 Units/3 Ml Insuln.Pen) 50 units SUBCUT DAILY.0730A [facility] Stop: 05/27/24 07:29 Last Admin: 05/29/23 08:49 Dose: 50 units Insulin Glargine (Insulin Glargine 300 Units/3 Ml Insuln.Pen) 40 units SUBCUT HS [facility] Stop: 05/27/24 21:59 Last Admin: 05/28/23 21:12 Dose: Not Given Metoprolol Tartrate (Metoprolol Tartrate 12.5 Mg Tablet) 12.5 mg PO BID [facility] Stop: 05/27/24 08:59 Last Admin: 05/30/23 08:24 Dose: 12.5 mg Oxybutynin Chloride (Oxybutynin Chloride 5 Mg Tablet) 5 mg PO BID [facility] Stop: 05/27/24 08:59 Last Admin: 05/30/23 08:24 Dose: 5 mg Prochlorperazine Edisylate (Prochlorperazine Edisylate 10 Mg/2 Ml Vial) 5 mg IV- PUSH Q4H PRN PRN Reason: Nausea And Vomiting Stop: 05/27/24 04:09 Last Admin: 05/29/23 06:31 Dose: 5 mg Ranolazine (Ranolazine 500 Mg Tab.Er.12h) 500 mg PO BID [facility] Stop: 05/27/24 08:59 Last Admin: 05/30/23 08:24 Dose: 500 mg Sertraline HCl (Sertraline 100 Mg Tablet) 100 mg PO DAILY [facility] Stop: 05/27/24 08:59 Last Admin: 05/30/23 08:25 Dose: 100 mg Spironolactone (Spironolactone 25 Mg Tablet) 25 mg PO BID TONY Stop: 05/27/24 08:59 Zinc Oxide (Zinc Oxide 20% Ointment 56 Gm Tube) 1 applic TOPICAL PRN PRN PRN Reason: Rash Stop: 05/28/24 10:51 Zolpidem Tartrate (Zolpidem 5 Mg Tablet) 5 mg PO HS PRN PRN Reason: Insomnia Stop: 11/24/23 04:07 A&P - Infectious Disease Assessment/Plan (1) Positive blood culture: Code(s): R78.81 - Bacteremia Status: Acute Plan Patient blood culture 1 set had strep dysgalactiae. Blood cultures today remainnegative. Urinalysis not that impressive but her creatinine was higher than her baseline and it appears they are considering UTI as a diagnosis. She clearly came in due to vomiting and then was admitted with fever and concerns ofchest pain. It seemed that she had acute onset of persistent nausea and vomiting that has now resolved. She denies any sick contacts around her. She was having diarrhea prior to coming to the hospital but has not had diarrhea since. Bowel movement last night she tells me was formed. She is not having abdominal pain at this time. No longer feels nauseated but then told me she hasbeen getting food and liquid stuck when she attempts to swallow which is new. Discussed with the charge nurse who is going to relate this to the hospitalist. In the meantime continuing ceftriaxone. Feel source of positive blood culture could be translocation from her vomiting episode versus just the left lower extremity wound infection. Clearly there is no significant findings suggestive of infection. She came in with vomiting and now is having difficulties with eating. GI may need to be consulted. Documented By: Deep Eubanks MD 05/30/23 0951 Signed By: <Electronically signed by MD Deep Eubanks> 05/30/23 0955 [facility] Work Phone: Progress note Author Pinky Kern [facility] May 30, 2023 1:08pm Note Date/Time May 30, 2023 1:0 7pm [facility] [address] [place] [address] Cardiology Progress Note Signed Patient: Namrata Jack MR#: [id number] : 1955 Acct:[id number] Age/Sex: 67 / F Adm Date: 3 Loc: 3T Room: [address] [place] [address] Type: ADM IN Attending Dr: Fahad Dobson MD Copies to: ~ Date of Service: 05/30/2023 Subjective Interval history: Patient feels better. Afebrile. No chest pain Exam Physical Exam Vital Signs: Temp Pulse Resp BP Pulse Ox O2 Del Method O2 Flow Rate 97.6 F 70 16 118/75 99 Nasal Cannula 2 05/30/23 12:00 05/30/23 12:00 05/30/23 12:00 05/30/23 12:00 05/30/23 12:00 05/30/23 12:00 05/30/23 12:00 Eyes General: appearance normal, both eyes and all related structures Pupils: PERRL Neck Neck: normal visual inspection, supple and no lymphadenopathy noted Neck mass: No Thyroid: thyroid normal Carotids: normal carotid upstroke Chest Chest palpation & inspection: normal inspection of the chest Resp Effort & Inspection: normal respiratory effort Auscultation: clear to auscultation bilaterally Cardio Palpation: normal PMI Rate: regular rate Rhythm: regular rhythm Heart Sounds: S1 normal, S2 normal and murmur systolic II/ and at the left sternal border GI Palpation: soft and no hepatosplenomegaly Percussion: normal to percussion Auscultation: normal bowel sounds Skin General: no rashes or lesions noted and dry skin Neuro General: patient alert, patient awake, patient oriented x3, tone normal and moves all extremities Extrem General: full ROM, capillary refill normal and no clubbing, cyanosis or edema Psych Mental Status: mental status grossly normal Objective Labs 05/30/23 05:43 05/30/23 05:43 Labs: Laboratory Results - last 24 hr 05/29/23 05/29/23 05/29/23 16:48 17:00 18:02 Corrected WBC Uncorrected WBC Count RBC Hgb Hct MCV MCH MCHC RDW Plt Count MPV Neut % (Auto) Lymph % (Auto) Mesa % (Auto) Eos % (Auto) Baso % (Auto) Nucleat RBC Rel Count Neut # (Auto) Lymph # (Auto) Mesa # (Auto) Eos # (Auto) Baso # (Auto) PHA Creatinine Clear Sodium Potassium Chloride Carbon Dioxide Anion Gap BUN Creatinine Est GFR (CKD-EPI) Glucose POC Glucose 24 L* 122 78 POC Glucose Comment Glu2: cleaned meter Glu2: cleaned meter Calcium Magnesium Total Creatine Kinase TSH 3rd Generation Total Cortisol 05/29/23 05/29/23 05/30/23 19:06 20:52 00:01 Corrected WBC Uncorrected WBC Count RBC Hgb Hct MCV MCH MCHC RDW Plt Count MPV Neut % (Auto) Lymph % (Auto) Mesa % (Auto) Eos % (Auto) Baso % (Auto) Nucleat RBC Rel Count Neut # (Auto) Lymph # (Auto) Mesa # (Auto) Eos # (Auto) Baso # (Auto) PHA Creatinine Clear Sodium Potassium Chloride Carbon Dioxide Anion Gap BUN Creatinine Est GFR (CKD-EPI) Glucose POC Glucose 70 81 144 POC Glucose Comment Glu2: cleaned meter Calcium Magnesium Total Creatine Kinase TSH 3rd Generation Total Cortisol 05/30/23 05/30/23 05/30/23 04:40 05:43 05:43 Corrected WBC 12.3 H Uncorrected WBC Count 12.3 H RBC 3.53 L Hgb 10.9 L Hct 32.1 L MCV 91.1 MCH 30.9 MCHC 33.9 RDW 13.7 Plt Count 202 MPV 7.6 Neut % (Auto) 88.1 Lymph % (Auto) 5.6 Mesa % (Auto) 3.3 Eos % (Auto) 2.8 Baso % (Auto) 0.2 Nucleat RBC Rel Count 0.1 Neut # (Auto) 10.9 H Lymph # (Auto) 0.7 L Mesa # (Auto) 0.4 Eos # (Auto) 0.3 Baso # (Auto) 0.0 PHA Creatinine Clear 34.34 Sodium 131 L Potassium 3.2 L Chloride 95 L Carbon Dioxide 29.6 Anion Gap 9.6 BUN 45 H Creatinine 2.29 H Est GFR (CKD-EPI) 22.705 Glucose 164 H POC Glucose 156 POC Glucose Comment Calcium 8.4 L Magnesium Total Creatine Kinase TSH 3rd Generation Total Cortisol 05/30/23 05/30/23 05/30/23 06:29 11:10 11:58 Corrected WBC Uncorrected WBC Count RBC Hgb Hct MCV MCH MCHC RDW Plt Count MPV Neut % (Auto) Lymph % (Auto) Mesa % (Auto) Eos % (Auto) Baso % (Auto) Nucleat RBC Rel Count Neut # (Auto) Lymph # (Auto) Mesa # (Auto) Eos # (Auto) Baso # (Auto) PHA Creatinine Clear Sodium Potassium Chloride Carbon Dioxide Anion Gap BUN Creatinine Est GFR (CKD-EPI) Glucose POC Glucose 177 228 POC Glucose Comment Calcium Magnesium Total Creatine Kinase 295 H TSH 3rd Generation Total Cortisol 05/30/23 05/30/23 11:58 11:58 Corrected WBC Uncorrected WBC Count RBC Hgb Hct MCV MCH MCHC RDW Plt Count MPV Neut % (Auto) Lymph % (Auto) Mesa % (Auto) Eos % (Auto) Baso % (Auto) Nucleat RBC Rel Count Neut # (Auto) Lymph # (Auto) [place]a # (Auto) Eos # (Auto) Baso # (Auto) PHA Creatinine Clear Sodium Potassium Chloride Carbon Dioxide Anion Gap BUN Creatinine Est GFR (CKD-EPI) Glucose POC Glucose POC Glucose Comment Calcium Magnesium 2.1 Total Creatine Kinase TSH 3rd Generation 1.35 Total Cortisol 20.9 A&P - Cardiology (1) Acute UTI: Code(s): N39.0 - Urinary tract infection, site not specified Status: Acute Plan Assessment 1. Acute coronary syndrome I suspect likely due to type II myocardial infarction. Patient is known to have a history of severe disease affecting the apical segment of the LAD. Her last heart cath was 2 months ago. She had no recurrence of her chest pain. She appears to be hemodynamically stable. Her EKG is nonacute. 2. Febrile illness treated for presumed urinary tract infection the patient hadsignificant GI symptomatology including recurrent nausea and vomiting 3. Mild aortic stenosis 4. Recurrent nausea and vomiting seem to have improved 5. Hypertension 6. Hyperlipidemia 7. Diabetes mellitus 8. Stage III chronic kidney disease with evidence of acute kidney injury 9. Morbid obesity with BMI 59 Plan 1. Continue aspirin, Plavix, metoprolol, Ranexa and heparin 2. Her febrile illness being addressed by the hospitalist service 3. I reviewed with the patient invasive or conservative management. Considering she had recent heart cath and her anatomy is well known medical therapy was chosen by the patient 4. Can be switch to DVT prophylaxis Lovenox dose or subcu heparin. 5. Would recommend to continue with medical therapy cardiac velazquez. I will follow on as-needed basis Documented By: Pinky Kern MD 05/30/23 1306 Signed By: <Electronically signed by MD Pinky Kern> 05/30/23 1308 [facility] Work Phone: Progress note Author Fahad Dobson [facility] May 31, 2023 8:41am Note Date/Time May 31, 2023 7:0 8am [facility] [address] [place] [address] Hospitalist Progress Note Signed Patient: Namrata Jack MR#: [id number] : 1955 Acct:[id number] Age/Sex: 67 / F Adm Date: 3 Loc: 3T Room: [address] [place] [address] Type: ADM IN Attending Dr: Fahad Dobson MD Copies to: ~ Date of Service: 05/31/2023 Subjective Subjective Narrative: Assessment And Plan 63F with PMH of HTN, DM, HLD, Diabetic neuropathy, CAD s/p Stenting, Mild MR, GERD, diverticulosis, Morbid Obesity who p/w N/V/Chest pain. found with Fever, lactic acidosis and admitted for possible UTI Acute metabolic encephalopathy due to hypoglycemia: resolved Hypoglycemia: resolved Seen and examined Resolved Clinically better More awake Blood sugar is improving D10 was discontinued Chest pain/Elevated Troponin rule out NSTEMI Resolved No more chest pain Seen by cardiology No further cardiac work up Continue aspirin and Plavix Continue Lopressor Continue Ranexa Febrile illness , suspected due to urinary tract Clinically better No fever Blood cultures are negative Urine culture is negative Discontinue Rocephin Gastroenteritis Resolved No more diarrhea NO abdominal pain Hyponatremia: Improving / BMP in am Acute on CKD Kidney function is improving down to 1.9 Hold Losartan Keep holding Lasix US kidney : No acute finding Nephrology input appreciated Chronic left lower extremity wound wound care nurse consulted Diabetes mellitus type, Insulin was held due to hypoglycemia was placed on D10 Blood sugar is improving Hypomagnesemia replaced PT OT evaluation Disposition: Plan to discharge to acute rehab Waiting for pre-CERT Exam Physical Exam Vital Signs: Temp Pulse Resp BP Pulse Ox O2 Del Method O2 Flow Rate 97.7 F 64 18 121/64 98 Room Air 2 05/31/23 03:42 05/31/23 06:53 05/31/23 06:53 05/31/23 03:42 05/31/23 03:42 05/31/23 03:42 05/31/23 03:38 Narrative: General patient laying in bed alert awake oriented x3 HEENT pupils are equal round reactive light Neck supple no JVD no carotid bruit CVS S1-S2 regular rate and rhythm no murmur no gallop Chest clear to auscultation percussion Abdomen soft bowel sounds normoactive no rebound no Extremities +1 edema Neurologic exam oriented x3 alert awake no focal deficit Skin exam normal no skin rash or lesion Musculoskeletal exam normal no movement limitation no joint effusion Objective Lab Results 05/30/23 05:43 05/30/23 05:43 Microbiology Results Microbiology 05/29/23 06:28 Blood - Right Hand Blood Culture - Preliminary No Growth 2 Days 05/29/23 06:21 Blood - Right Antecubital Blood Culture - Preliminary No Growth 2 Days 05/27/23 22:42 Blood - Right Antecubital Blood Culture - Preliminary No Growth 3 Days 05/29/23 02:00 Stool Stool Culture - Preliminary 05/28/23 00:42 Urine - Straight Cath Urine Culture - Final No Growth 2 Days 05/27/23 23:20 Blood - Left Antecubital Blood Culture - Preliminary Strep dysgalactiae 05/27/23 23:20 Blood - Left Antecubital Bacterial ID (NA Multiplex Assay) - Final Meds Allergies and Active Meds Allergies Penicillins Allergy (Severe, Verified 05/27/23 22:27) Anaphylaxis IV Dye Allergy (Severe, Uncoded 05/27/23 22:27) Anaphylaxis Active Meds: Active Medications Generic Name Dose Route Start Last Admin Trade Name Freq PRN Reason Stop Dose Admin Acetaminophen 650 mg 05/28/23 04:10 05/28/23 09:02 Acetaminophen 325 Mg Tablet PO 05/27/24 04:09 650 mg Q4H PRN Administration Pain Scale 1 - 5 Hydrocodone Bitart/Acetaminophen 1 tab 05/28/23 04:08 05/30/23 20:41 Hydrocodone/Acetaminophen 10-325 Mg Tablet PO 1 tab QID PRN Administration Pain Albuterol 2.5 mg 05/28/23 04:10 05/31/23 06:46 Albuterol Neb 2.5 Mg/3 Ml Vial.Neb INHALATION 05/27/24 04:09 2.5 mg Q2H PRN Administration Shortness Of Breath Aspirin 81 mg 05/28/23 09:00 05/30/23 08:25 Aspirin 81 Mg Tablet. PO 05/27/24 08:59 81 mg DAILY TONY Administration Atorvastatin Calcium 80 mg 05/28/23 22:00 05/30/23 20:41 Atorvastatin 80 Mg Tablet PO 05/27/24 21:59 80 mg HS TONY Administration Clopidogrel Bisulfate 75 mg 05/28/23 09:00 05/30/23 08:25 Clopidogrel Bisulfate 75 Mg Tablet PO 05/27/24 08:59 75 mg DAILY TONY Administration Cyclobenzaprine HCl 10 mg 05/28/23 04:08 05/30/23 20:41 Cyclobenzaprine 10 Mg Tablet PO 05/27/24 04:07 10 mg TID PRN Administration Spasms Dextrose 0 gm 05/28/23 04:10 05/29/23 16:52 Dextrose 50% In Water 25 Gm/50 Ml Syringe IV-PUSH 05/27/24 04:09 25 gm PRN PRN Administration Hypoglycemia Docusate Sodium 200 mg 05/28/23 04:10 05/28/23 18:21 Docusate 100 Mg Capsule PO 05/27/24 04:09 200 mg BID PRN Administration Constipation Enoxaparin Sodium 30 mg 05/31/23 10:00 Enoxaparin 30 Mg/0.3 Ml Syringe SUBCUT 05/30/24 09:59 DAILY@1000 TONY Famotidine 20 mg 05/28/23 22:00 05/30/23 20:42 Famotidine 20 Mg Tablet PO 05/27/24 21:59 20 mg QHS TONY Administration Gabapentin 600 mg 05/28/23 09:00 05/30/23 20:41 Gabapentin 300 Mg Capsule PO 05/27/24 08:59 600 mg BID TONY Administration Glucose 0 gm 05/28/23 04:10 Dextrose 40% Gel 15 Gm Tube PO 05/27/24 04:09 PRN PRN Hypoglycemia Ceftriaxone Sodium 2 gm in 50 mls @ 100 mls/hr 05/28/23 16:00 05/30/23 15:18 Rocephin IV 100 mls/hr Q24H TONY Administration Dextrose 1,000 mls @ 50 mls/hr 05/29/23 17:15 05/30/23 16:12 10 % Dextrose In Water IV 05/28/24 17:14 50 mls/hr .Q20H TONY Infusion Insulin Aspart 0 units 05/28/23 08:00 05/29/23 17:05 Insulin Aspart 300 Units/3 Ml Insuln.Pen SUBCUT 05/27/24 07:59 Not Given TID.WM.HS [facility] Protocol Insulin Aspart 40 units 05/28/23 08:00 05/29/23 17:05 Insulin Aspart 300 Units/3 Ml Insuln.Pen SUBCUT 05/27/24 07:59 Not Given TID.WITH.MEALS TONY Insulin Glargine 50 units 05/28/23 07:30 05/29/23 08:49 Insulin Glargine 300 Units/3 Ml Insuln.Pen SUBCUT 05/27/24 07:29 50 units DAILY.0730A TONY Administration Insulin Glargine 40 units 05/28/23 22:00 05/28/23 21:12 Insulin Glargine 300 Units/3 Ml Insuln.Pen SUBCUT 05/27/24 21:59 Not Given [facility] Metoprolol Tartrate 12.5 mg 05/28/23 09:00 05/30/23 20:42 Metoprolol Tartrate 12.5 Mg Tablet PO 05/27/24 08:59 12.5 mg BID TONY Administration Oxybutynin Chloride 5 mg 05/28/23 09:00 05/30/23 20:42 Oxybutynin Chloride 5 Mg Tablet PO 05/27/24 08:59 5 mg BID TONY Administration Prochlorperazine Edisylate 5 mg 05/28/23 04:10 05/30/23 17:54 Prochlorperazine Edisylate 10 Mg/2 Ml Vial IV-PUSH 05/27/24 04:09 5 mg Q4H PRN Administration Nausea And Vomiting Ranolazine 500 mg 05/28/23 09:00 05/30/23 20:42 Ranolazine 500 Mg Tab.Er.12h PO 05/27/24 08:59 500 mg BID TONY Administration Sertraline HCl 100 mg 05/28/23 09:00 05/30/23 08:25 Sertraline 100 Mg Tablet PO 05/27/24 08:59 100 mg DAILY TONY Administration Spironolactone 25 mg 05/28/23 09:00 Spironolactone 25 Mg Tablet PO 05/27/24 08:59 BID TONY Zinc Oxide 1 applic 05/29/23 10:52 Zinc Oxide 20% Ointment 56 Gm Tube TOPICAL 05/28/24 10:51 PRN PRN Rash Zolpidem Tartrate 5 mg 05/28/23 04:08 05/30/23 20:41 Zolpidem 5 Mg Tablet PO 11/24/23 04:07 5 mg HS PRN Administration Insomnia A&P - Hospitalist Assessment/Plan (1) Acute UTI: Plan 1. Fever suspected due to urinary tract I could not appreciate any other focal signs of infection, however patient complains of diarrhea as well but no abdominal pain. We will check for C. difficile. For now continue with Rocephin Await cultures 2. Mild acute kidney injury, start gentle hydration, recheck in a.m. 3. Chronic left lower extremity wound, I do not appreciate any active signs of infection, wound care nurse consulted 4. Chest pain, with underlying coronary artery disease, status post multiple intervention, with last cardiac cath in February 2023, no intervention done at that time. Troponins slightly elevated, EKG nonischemic, will consult cardiology For now continue with antiplatelets, troponins flat 5. Elevated lactic acid -again patient denies any abdominal pain but she does have diarrhea For now continue with hydration, blood pressure seems to be stable, no hypotension noted Unlikely mesenteric ischemia as the patient denies abdominal pain Recheck lactic acid 6. Diabetes mellitus type 2, continue with home medical therapy, add sliding 7. Hypomagnesemia replacement Documented By: Fahad Dobson MD 05/31/23 0706 Signed By: <Electronically signed by Fahad Dobson MD> 05/31/23 0841 [facility] Work Phone: Progress note Author Deep Eubanks [facility] May 31, 2023 9:48am Note Date/Time May 31, 2023 9:4 8am [facility] [address] [place] [address] Infect. Disease Progress Note Signed Patient: Namrata Jack MR#: [id number] : 1955 Acct:[id number] Age/Sex: 67 / F Adm Date: 3 Loc: 3T Room: [address] [place] [address] Type: ADM IN Attending Dr: Fahad Dobson MD Copies to: ~ Date of Service: 05/31/2023 Subjective Interval history: Patient is asleep in a chair. Appears comfortable. Exam Physical Exam Vital Signs: Temp Pulse Resp BP Pulse Ox O2 Del Method O2 Flow Rate 97.7 F 66 14 115/71 98 Nasal Cannula 2 05/31/23 08:00 05/31/23 08:00 05/31/23 08:00 05/31/23 08:00 05/31/23 08:00 05/31/23 08:00 05/31/23 08:00 Const General: no acute distress Orientation: other (sleeping) HEENT Head: normal to inspection Ears: hearing grossly normal bilaterally Mouth: oral mucosae normal Eyes General: appearance normal, both eyes and all related structures Neck Neck: normal visual inspection Chest Chest palpation & inspection: normal inspection of the chest Resp Effort & Inspection: normal respiratory effort Auscultation: clear to auscultation bilaterally Cardio Palpation: normal PMI Rate: regular rate Rhythm: regular rhythm GI Inspection: normal to inspection Palpation: soft and nontender Auscultation: normal bowel sounds Skin General: other (Left lower extremity visualized. Superficial ulcerations noted. ) Other: LLE wrapped but erythematous changes on left lower extremity chronic do not appear cellulitic seen yesterday Neuro General: other (sleeping) Extrem General: abnormal to inspection (Lisa bandages) Objective Labs CBC/BMP: CBC, BMP 05/31/23 06:11 Sodium 127 L Potassium 3.5 Chloride 93 L Carbon Dioxide 28.7 Anion Gap 8.8 BUN 41 H Creatinine 1.91 H Calcium 8.3 L Labs: 05/31/23 06:11 BUN 41 H Creatinine 1.91 H Microbiology Microbiology: Microbiology - Results from entire visit 05/29/23 02:00 Stool Stool Culture - Preliminary 05/27/23 23:20 Blood - Left Antecubital Blood Culture - Final Strep dysgalactiae 05/27/23 23:20 Blood - Left Antecubital Bacterial ID (NA Multiplex Assay) - Final 05/29/23 06:28 Blood - Right Hand Blood Culture - Preliminary No Growth 2 Days 05/29/23 06:21 Blood - Right Antecubital Blood Culture - Preliminary No Growth 2 Days 05/27/23 22:42 Blood - Right Antecubital Blood Culture - Preliminary No Growth 3 Days 05/28/23 00:42 Urine - Straight Cath Urine Culture - Final No Growth 2 Days 05/29/23 02:00 Stool Stool Lactoferrin - Final Allergies and Medications Allergies and Active Meds Allergies Penicillins Allergy (Severe, Verified 05/27/23 22:27) Anaphylaxis IV Dye Allergy (Severe, Uncoded 05/27/23 22:27) Anaphylaxis Active Medications Acetaminophen (Acetaminophen 325 Mg Tablet) 650 mg PO Q4H PRN PRN Reason: Pain Scale 1 - 5 Stop: 05/27/24 04:09 Last Admin: 05/28/23 09:02 Dose: 650 mg Hydrocodone Bitart/Acetaminophen (Hydrocodone/Acetaminophen 10-325 Mg Tablet) 1tab PO QID PRN PRN Reason: Pain Last Admin: 05/31/23 09:03 Dose: 1 tab Albuterol (Albuterol Neb 2.5 Mg/3 Ml Vial.Neb) 2.5 mg INHALATION Q2H PRN PRN Reason: Shortness Of Breath Stop: 05/27/24 04:09 Last Admin: 05/31/23 06:46 Dose: 2.5 mg Aspirin (Aspirin 81 Mg Tablet.) 81 mg PO DAILY [facility] Stop: 05/27/24 08:59 Last Admin: 05/31/23 08:52 Dose: 81 mg Atorvastatin Calcium (Atorvastatin 80 Mg Tablet) 80 mg PO [facility] Stop: 05/27/24 21:59 Last Admin: 05/30/23 20:41 Dose: 80 mg Clopidogrel Bisulfate (Clopidogrel Bisulfate 75 Mg Tablet) 75 mg PO DAILY [facility] Stop: 05/27/24 08:59 Last Admin: 05/31/23 08:52 Dose: 75 mg Cyclobenzaprine HCl (Cyclobenzaprine 10 Mg Tablet) 10 mg PO TID PRN PRN Reason: Spasms Stop: 05/27/24 04:07 Last Admin: 05/30/23 20:41 Dose: 10 mg Dextrose (Dextrose 50% In Water 25 Gm/50 Ml Syringe) 0 gm IV-PUSH PRN PRN PRN Reason: Hypoglycemia Stop: 05/27/24 04:09 Last Admin: 05/29/23 16:52 Dose: 25 gm Docusate Sodium (Docusate 100 Mg Capsule) 200 mg PO BID PRN PRN Reason: Constipation Stop: 05/27/24 04:09 Last Admin: 05/28/23 18:21 Dose: 200 mg Enoxaparin Sodium (Enoxaparin 30 Mg/0.3 Ml Syringe) 30 mg SUBCUT DAILY@1000 [facility] Stop: 05/30/24 09:59 Gabapentin (Gabapentin 300 Mg Capsule) 600 mg PO BID [facility] Stop: 05/27/24 08:59 Last Admin: 05/31/23 08:52 Dose: 600 mg Glucose (Dextrose 40% Gel 15 Gm Tube) 0 gm PO PRN PRN PRN Reason: Hypoglycemia Stop: 05/27/24 04:09 Insulin Aspart (Insulin Aspart 300 Units/3 Ml Insuln.Pen) 0 units SUBCUT TID.WM.[facility]; Protocol Stop: 05/27/24 07:59 Last Admin: 05/29/23 17:05 Dose: Not Given Insulin Aspart (Insulin Aspart 300 Units/3 Ml Insuln.Pen) 40 units SUBCUT TID.WITH.MEALS [facility] Stop: 05/27/24 07:59 Last Admin: 05/29/23 17:05 Dose: Not Given Insulin Glargine (Insulin Glargine 300 Units/3 Ml Insuln.Pen) 50 units SUBCUT DAILY.0730A [facility] Stop: 05/27/24 07:29 Last Admin: 05/29/23 08:49 Dose: 50 units Insulin Glargine (Insulin Glargine 300 Units/3 Ml Insuln.Pen) 40 units SUBCUT [facility] Stop: 05/27/24 21:59 Last Admin: 05/28/23 21:12 Dose: Not Given Metoprolol Tartrate (Metoprolol Tartrate 12.5 Mg Tablet) 12.5 mg PO BID [facility] Stop: 05/27/24 08:59 Last Admin: 05/31/23 08:52 Dose: 12.5 mg Nystatin (Nystatin Susp 500,000 Unit/5 Ml Udc) 500,000 unit PO QID [facility] Stop: 05/30/24 08:59 Oxybutynin Chloride (Oxybutynin Chloride 5 Mg Tablet) 5 mg PO BID [facility] Stop: 05/27/24 08:59 Last Admin: 05/31/23 08:51 Dose: 5 mg Pantoprazole Sodium (Pantoprazole 40 Mg Tablet.) 40 mg PO BID [facility] Stop: 05/30/24 08:59 Prochlorperazine Edisylate (Prochlorperazine Edisylate 10 Mg/2 Ml Vial) 5 mg IV- PUSH Q4H PRN PRN Reason: Nausea And Vomiting Stop: 05/27/24 04:09 Last Admin: 05/31/23 09:03 Dose: 5 mg Ranolazine (Ranolazine 500 Mg Tab.Er.12h) 500 mg PO BID [facility]ON[facility] Stop: 05/27/24 08:59 Last Admin: 05/31/23 08:52 Dose: 500 mg Sertraline HCl (Sertraline 100 Mg Tablet) 100 mg PO DAILY [facility] Stop: 05/27/24 08:59 Last Admin: 05/31/23 08:52 Dose: 100 mg Spironolactone (Spironolactone 25 Mg Tablet) 25 mg PO BID [facility] Stop: 05/27/24 08:59 Sucralfate (Sucralfate 1 Gm Tablet) 1 gm PO Q6HR [facility] Stop: 05/30/24 11:59 Zinc Oxide (Zinc Oxide 20% Ointment 56 Gm Tube) 1 applic TOPICAL PRN PRN PRN Reason: Rash Stop: 05/28/24 10:51 Zolpidem Tartrate (Zolpidem 5 Mg Tablet) 5 mg PO HS PRN PRN Reason: Insomnia Stop: 11/24/23 04:07 Last Admin: 05/30/23 20:41 Dose: 5 mg A&P - Infectious Disease Assessment/Plan (1) Positive blood culture: Code(s): R78.81 - Bacteremia Status: Acute Plan Patient blood culture 1 set had strep dysgalactiae. Blood cultures today remainnegative. Urinalysis not that impressive but her creatinine was higher than her baseline and it appears they are considering UTI as a diagnosis. She clearly came in due to vomiting and then was admitted with fever and concerns ofchest pain. It seemed that she had acute onset of persistent nausea and vomiting that has now resolved. She denies any sick contacts around her. She was having diarrhea prior to coming to the hospital but has not had diarrhea since. Patient completed 3 days of ceftriaxone. The hospitalist note today states continue ceftriaxone blood the hospitalist is also going to discontinue this antibiotic. Again without obvious source perhaps it was just translocationwhich would not require a significant course of antibiotics. At this point in time we will not adjust anything until I speak with the hospitalist. Documented By: Deep Eubanks MD 05/31/2342 Signed By: <Electronically signed by MD Deep Eubanks> 05/31/2348 [facility] Work Phone: Progress note Author Sydnie Milian [facility] May 31, 2023 11:37am Note Date/Time May 31, 2023 11: 32am [facility] [address] [place] [address] Nephrology Progress Note Signed Patient: Namrata Jack MR#: [id number] : 1955 Acct:[id number] Age/Sex: 67 / F Adm Date: 3 Loc: Room: [address] [place] [address] Type: ADM IN Attending Dr: Fahad Dobson MD Copies to: ~ Date of Service: 05/31/2023 Subjective Subjective Narrative: This is a 67-year-old female with a medical history of type 2 diabetes mellitus,hypertension, chronic diastolic congestive heart failure, mild aortic stenosis, CAD s/p PCI, dyslipidemia was presented to the emergency room for nausea and vomiting. On presentation in the emergency room patient was noticed to have a serum creatinine 1.0 mg/dL, hyponatremia with serum sodium 131 mmol/L. She was given fluid bolus in the emergency room and was started on maintenance fluid forpossible hypovolemia. Patient was recently admitted at [facility] for acute on chronic diastolic congestive heart failure and was discharged home on oral Lasix losartan and spironolactone. Patient was also found to have a elevated troponin and was seen by cardiology for type II NC. She was also found to have a fever and had a blood culture done on presentation which came out positive for strep. She was empirically started on IV ceftriaxone for possible UTI. Her hospital course was also complicated by hypoglycemia so insulin glargine was held and she was started on D10 water. Patient was seen by ID for positive blood culture and bacteremia. Her renal function continues to decline during the hospital stay despite holding diureticsand IV fluid resuscitation. Her serum creatinine went up to 2.2 mg/dL and she continues to have a persistent hyponatremia. Nephrology is consulted for JOY onCKD and hyponatremia management. Interval history Patient was seen and examined bedside. She is feeling better denies any chest pain palpitation cough nausea vomiting diarrhea shortness of breath. Her blood sugars has improved and D10 was discontinued. Exam Physical Exam Vital Signs: Temp Pulse Resp BP Pulse Ox O2 Del Method O2 Flow Rate 97.7 F 66 14 115/71 98 Nasal Cannula 2 05/31/23 08:00 05/31/23 08:00 05/31/23 08:00 05/31/23 08:00 05/31/23 08:00 05/31/23 08:00 05/31/23 08:00 Narrative: General: Appears comfortable and not in distress Heart: S1-S2, no rub Lung: Bilateral air entry, no wheezing or crackles Abdomen: Soft, positive bowel sounds Extremities: Bilateral chronic lymphedema, no cyanosis Head: Atraumatic, normocephalic Ear: No gross hearing Deficit or external ear redness Eyes: No pallor or redness Neck: No JVD or visible mass Skin: No rashes or warm to touch [employer]: Awake,Alert, following simple command Musculoskeletal: No joint swelling or limitation of movement Psychiatric: Cooperative, normal mood and affect Objective Intake and Output I&O: Intake & Output 05/28/23 05/29/23 05/30/23 05/31/23 23:59 23:59 23:59 23:59 Intake Total 4990 / 4990 550 / 550 1450 / 1450 50 / 50 Output Total 400 / 400 900 / 900 1250 / 1250 Balance 4590 / 4590 550 / 550 550 / 550 -1200 / -1200 Weight 151.5 kg 154.4 kg 152.7 kg 153.6 kg Meds and Allergies Meds: Active Medications Acetaminophen (Acetaminophen 325 Mg Tablet) 650 mg PO Q4H PRN PRN Reason: Pain Scale 1 - 5 Stop: 05/27/24 04:09 Last Admin: 05/28/23 09:02 Dose: 650 mg Hydrocodone Bitart/Acetaminophen (Hydrocodone/Acetaminophen 10-325 Mg Tablet) 1tab PO QID PRN PRN Reason: Pain Last Admin: 05/31/23 09:03 Dose: 1 tab Albuterol (Albuterol Neb 2.5 Mg/3 Ml Vial.Neb) 2.5 mg INHALATION Q2H PRN PRN Reason: Shortness Of Breath Stop: 05/27/24 04:09 Last Admin: 05/31/23 06:46 Dose: 2.5 mg Aspirin (Aspirin 81 Mg Tablet.Dr) 81 mg PO DAILY [facility] Stop: 05/27/24 08:59 Last Admin: 05/31/23 08:52 Dose: 81 mg Atorvastatin Calcium (Atorvastatin 80 Mg Tablet) 80 mg PO [facility] Stop: 05/27/24 21:59 Last Admin: 05/30/23 20:41 Dose: 80 mg Clopidogrel Bisulfate (Clopidogrel Bisulfate 75 Mg Tablet) 75 mg PO DAILY [facility] Stop: 05/27/24 08:59 Last Admin: 05/31/23 08:52 Dose: 75 mg Cyclobenzaprine HCl (Cyclobenzaprine 10 Mg Tablet) 10 mg PO TID PRN PRN Reason: Spasms Stop: 05/27/24 04:07 Last Admin: 05/30/23 20:41 Dose: 10 mg Dextrose (Dextrose 50% In Water 25 Gm/50 Ml Syringe) 0 gm IV-PUSH PRN PRN PRN Reason: Hypoglycemia Stop: 05/27/24 04:09 Last Admin: 05/29/23 16:52 Dose: 25 gm Docusate Sodium (Docusate 100 Mg Capsule) 200 mg PO BID PRN PRN Reason: Constipation Stop: 05/27/24 04:09 Last Admin: 05/28/23 18:21 Dose: 200 mg Enoxaparin Sodium (Enoxaparin 30 Mg/0.3 Ml Syringe) 30 mg SUBCUT DAILY@1000 [facility] Stop: 05/30/24 09:59 Last Admin: 05/31/23 09:53 Dose: 30 mg Gabapentin (Gabapentin 300 Mg Capsule) 600 mg PO BID [facility] Stop: 05/27/24 08:59 Last Admin: 05/31/23 08:52 Dose: 600 mg Glucose (Dextrose 40% Gel 15 Gm Tube) 0 gm PO PRN PRN PRN Reason: Hypoglycemia Stop: 05/27/24 04:09 Insulin Aspart (Insulin Aspart 300 Units/3 Ml Insuln.Pen) 0 units SUBCUT TID.[facility]; Protocol Stop: 05/27/24 07:59 Last Admin: 05/29/23 17:05 Dose: Not Given Insulin Aspart (Insulin Aspart 300 Units/3 Ml Insuln.Pen) 40 units SUBCUT TID.WITH.MEALS [facility] Stop: 05/27/24 07:59 Last Admin: 05/29/23 17:05 Dose: Not Given Insulin Glargine (Insulin Glargine 300 Units/3 Ml Insuln.Pen) 50 units SUBCUT DAILY.0730A [facility] Stop: 05/27/24 07:29 Last Admin: 05/29/23 08:49 Dose: 50 units Insulin Glargine (Insulin Glargine 300 Units/3 Ml Insuln.Pen) 40 units SUBCUT HS [facility] Stop: 05/27/24 21:59 Last Admin: 05/28/23 21:12 Dose: Not Given Metoprolol Tartrate (Metoprolol Tartrate 12.5 Mg Tablet) 12.5 mg PO BID [facility] Stop: 05/27/24 08:59 Last Admin: 05/31/23 08:52 Dose: 12.5 mg Nystatin (Nystatin Susp 500,000 Unit/5 Ml Udc) 500,000 unit PO QID [facility] [place] Stop: 05/30/24 08:59 Last Admin: 05/31/23 09:52 Dose: 500,000 unit Oxybutynin Chloride (Oxybutynin Chloride 5 Mg Tablet) 5 mg PO BID [facility] [place] Stop: 05/27/24 08:59 Last Admin: 05/31/23 08:51 Dose: 5 mg Pantoprazole Sodium (Pantoprazole 40 Mg Tablet.Dr) 40 mg PO BID [facility] [place] Stop: 05/30/24 08:59 Last Admin: 05/31/23 09:52 Dose: 40 mg Prochlorperazine Edisylate (Prochlorperazine Edisylate 10 Mg/2 Ml Vial) 5 mg IV- PUSH Q4H PRN PRN Reason: Nausea And Vomiting Stop: 05/27/24 04:09 Last Admin: 05/31/23 09:03 Dose: 5 mg Ranolazine (Ranolazine 500 Mg Tab.Er.12h) 500 mg PO BID [facility] [place] Stop: 05/27/24 08:59 Last Admin: 05/31/23 08:52 Dose: 500 mg Sertraline HCl (Sertraline 100 Mg Tablet) 100 mg PO DAILY [facility] [place] Stop: 05/27/24 08:59 Last Admin: 05/31/23 08:52 Dose: 100 mg Spironolactone (Spironolactone 25 Mg Tablet) 25 mg PO BID [facility] [place] Stop: 05/27/24 08:59 Sucralfate (Sucralfate 1 Gm Tablet) 1 gm PO Q6HR [facility] Stop: 05/30/24 11:59 Last Admin: 05/31/23 11:16 Dose: 1 gm Zinc Oxide (Zinc Oxide 20% Ointment 56 Gm Tube) 1 applic TOPICAL PRN PRN PRN Reason: Rash Stop: 05/28/24 10:51 Zolpidem Tartrate (Zolpidem 5 Mg Tablet) 5 mg PO HS PRN PRN Reason: Insomnia Stop: 11/24/23 04:07 Last Admin: 05/30/23 20:41 Dose: 5 mg Allergies Penicillins Allergy (Severe, Verified 05/27/23 22:27) Anaphylaxis IV Dye Allergy (Severe, Uncoded 05/27/23 22:27) Anaphylaxis Results Labs 05/30/23 05:43 05/31/23 06:11 Labs: 05/31/23 06:11 BUN 41 H Creatinine 1.91 H Radiology Impressions Impressions - last 24 hours: Impressions Renal Ultrasound 05/30/23 11:40 IMPRESSION: No acute findings. Impression dictated by: Chapin Maher Jr., D.O.05/30/2023 8:39 PM Dictation Location: [place] [address] Any impression(s) listed above is documentation that was entered by the reading physician into a diagnostic report(s) for Namrata Jack. I have reviewed the report(s) and am incorporating any findings in the treatment plan of this patient where applicable. A&P - Nephrology Assessment/Plan (1) Acute kidney injury superimposed on CKD: Plan: She has JOY possibly due to the relative hypotension in setting of infection andurinary retention (2) CKD (chronic kidney disease) stage 3, GFR 30-59 ml/min: Plan: She has CKD due to the longstanding DM, HTN and chronic cardiorenal syndrome with baseline serum creatinine 1.3 mg/dL. (3) Type 2 diabetes mellitus with diabetic chronic kidney disease: Plan: She has insulin-dependent type 2 diabetes mellitus. She was taking insulin glargine at home. (4) Hypertensive chronic kidney disease with stage 1 through stage 4 chronic kidney disease, or unspecified chronic kidney disease: Plan: Her blood pressure is relatively low. She was taking losartan, spironolactone, Lasix and metoprolol at home. (5) Chronic diastolic (congestive) heart failure: Plan: She appears to be well compensated. Her echocardiogram in April 2023 showed EF 65-70%, mild to moderate diastolic dysfunction, mild aortic stenosis (6) Bacteremia: Plan: Patient was presented with fever and has a positive blood culture with strep dysgalactiae. She is currently on ceftriaxone ID has been following the patient. (7) Hyponatremia: Plan: She has hyponatremia but appears to be euvolemic. This may be due to the nauseainduced or medication related like sertraline. (8) Hypokalemia: Plan: She has hypokalemia possibly due to the vomiting. Plan * Continue to hold home dose of the spironolactone, Lasix and losartan. * Her renal ultrasound showed urinary retention. Garrett catheter has been placed and she is having good urine output. * Continue DM management as per the primary hospitalist team. * Continue management of the bacteremia as per ID. * Check renal function daily monitor input output * Documented By: Sydnie Milian MD 05/31/23 1128 Signed By: <Electronically signed by Sydnie Milian MD> 05/31/23 1137 [facility] Work Phone: Progress note Author Sydnie Milian [facility] June 01, 2023 1:39pm Note Date/Time June 01, 2023 8:5 7am [facility] [address] [place] [address] Nephrology Progress Note Signed Patient: Namrata Jack MR#: [id number] : 1955 Acct:[id number] Age/Sex: 67 / F Adm Date: 3 Loc: Room: [address] [place] [address] Type: ADM IN Attending Dr: Fahad Dobson MD Copies to: ~ Date of Service: 06/01/2023 Subjective Subjective Narrative: This is a 67-year-old female with a medical history of type 2 diabetes mellitus,hypertension, chronic diastolic congestive heart failure, mild aortic stenosis, CAD s/p PCI, dyslipidemia was presented to the emergency room for nausea and vomiting. On presentation in the emergency room patient was noticed to have a serum creatinine 1.0 mg/dL, hyponatremia with serum sodium 131 mmol/L. She was given fluid bolus in the emergency room and was started on maintenance fluid forpossible hypovolemia. Patient was recently admitted at [facility] for acute on chronic diastolic congestive heart failure and was discharged home on oral Lasix losartan and spironolactone. Patient was also found to have a elevated troponin and was seen by cardiology for type II NC. She was also found to have a fever and had a blood culture done on presentation which came out positive for strep. She was empirically started on IV ceftriaxone for possible UTI. Her hospital course was also complicated by hypoglycemia so insulin glargine was held and she was started on D10 water. Patient was seen by ID for positive blood culture and bacteremia. Her renal function continues to decline during the hospital stay despite holding diureticsand IV fluid resuscitation. Her serum creatinine went up to 2.2 mg/dL and she continues to have a persistent hyponatremia. Nephrology is consulted for JOY onCKD and hyponatremia management. Interval history She is feeling better denies any chest pain palpitation cough nausea vomiting diarrhea shortness of breath. She reported that her appetite has improved. Sheate all of her breakfast this morning. Exam Physical Exam Vital Signs: Temp Pulse Resp BP Pulse Ox O2 Del Method O2 Flow Rate 97.8 F 68 16 125/76 96 Room Air 2 06/01/23 00:00 06/01/23 04:00 06/01/23 04:00 06/01/23 04:00 06/01/23 04:00 06/01/23 04:00 05/31/23 16:30 Narrative: General: Appears comfortable and not in distress Heart: S1-S2, no rub Lung: Bilateral air entry, no wheezing or crackles Abdomen: Soft, positive bowel sounds Extremities: Bilateral chronic lymphedema, no cyanosis Head: Atraumatic, normocephalic Ear: No gross hearing Deficit or external ear redness Eyes: No pallor or redness Neck: No JVD or visible mass Skin: No rashes or warm to touch [employer]: Awake,Alert, following simple command Musculoskeletal: No joint swelling or limitation of movement Psychiatric: Cooperative, normal mood and affect Objective Intake and Output I&O: Intake & Output 05/29/23 05/30/23 05/31/23 06/01/23 23:59 23:59 23:59 23:59 Intake Total 550 / 550 1450 / 1450 590 / 590 250 / 250 Output Total 900 / 900 1650 / 1650 Balance 550 / 550 550 / 550 -1060 / -1060 250 / 250 Weight 154.4 kg 152.7 kg 153.6 kg 154.1 kg Meds and Allergies Meds: Active Medications Acetaminophen (Acetaminophen 325 Mg Tablet) 650 mg PO Q4H PRN PRN Reason: Pain Scale 1 - 5 Stop: 05/27/24 04:09 Last Admin: 05/28/23 09:02 Dose: 650 mg Hydrocodone Bitart/Acetaminophen (Hydrocodone/Acetaminophen 10-325 Mg Tablet) 1tab PO QID PRN PRN Reason: Pain Last Admin: 05/31/23 09:03 Dose: 1 tab Albuterol (Albuterol Neb 2.5 Mg/3 Ml Vial.Neb) 2.5 mg INHALATION Q2H PRN PRN Reason: Shortness Of Breath Stop: 05/27/24 04:09 Last Admin: 06/01/23 01:10 Dose: 2.5 mg Aspirin (Aspirin 81 Mg Tablet.) 81 mg PO DAILY [facility] [place] Stop: 05/27/24 08:59 Last Admin: 05/31/23 08:52 Dose: 81 mg Atorvastatin Calcium (Atorvastatin 80 Mg Tablet) 80 mg PO HS [facility] [place] Stop: 05/27/24 21:59 Last Admin: 05/31/23 22:31 Dose: 80 mg Clopidogrel Bisulfate (Clopidogrel Bisulfate 75 Mg Tablet) 75 mg PO DAILY [facility] [place] Stop: 05/27/24 08:59 Last Admin: 05/31/23 08:52 Dose: 75 mg Cyclobenzaprine HCl (Cyclobenzaprine 10 Mg Tablet) 10 mg PO TID PRN PRN Reason: Spasms Stop: 05/27/24 04:07 Last Admin: 05/30/23 20:41 Dose: 10 mg Dextrose (Dextrose 50% In Water 25 Gm/50 Ml Syringe) 0 gm IV-PUSH PRN PRN PRN Reason: Hypoglycemia Stop: 05/27/24 04:09 Last Admin: 05/29/23 16:52 Dose: 25 gm Docusate Sodium (Docusate 100 Mg Capsule) 200 mg PO BID PRN PRN Reason: Constipation Stop: 05/27/24 04:09 Last Admin: 05/28/23 18:21 Dose: 200 mg Enoxaparin Sodium (Enoxaparin 40 Mg/0.4 Ml Syringe) 40 mg SUBCUT DAILY@1000 [facility] [place] Stop: 05/31/24 09:59 Gabapentin (Gabapentin 300 Mg Capsule) 600 mg PO BID [facility] [place] Stop: 05/27/24 08:59 Last Admin: 05/31/23 22:35 Dose: 600 mg Glucose (Dextrose 40% Gel 15 Gm Tube) 0 gm PO PRN PRN PRN Reason: Hypoglycemia Stop: 05/27/24 04:09 Insulin Aspart (Insulin Aspart 300 Units/3 Ml Insuln.Pen) 0 units SUBCUT TID.WM.[facility]; Protocol Stop: 05/27/24 07:59 Last Admin: 05/29/23 17:05 Dose: Not Given Insulin Aspart (Insulin Aspart 300 Units/3 Ml Insuln.Pen) 40 units SUBCUT TID.WITH.MEALS [facility] [place] Stop: 05/27/24 07:59 Last Admin: 05/29/23 17:05 Dose: Not Given Insulin Glargine (Insulin Glargine 300 Units/3 Ml Insuln.Pen) 50 units SUBCUT DAILY.0730A [facility] [place] Stop: 05/27/24 07:29 Last Admin: 05/29/23 08:49 Dose: 50 units Insulin Glargine (Insulin Glargine 300 Units/3 Ml Insuln.Pen) 40 units SUBCUT [facility] Stop: 05/27/24 21:59 Last Admin: 05/28/23 21:12 Dose: Not Given Metoprolol Tartrate (Metoprolol Tartrate 12.5 Mg Tablet) 12.5 mg PO BID [facility] [place] Stop: 05/27/24 08:59 Last Admin: 05/31/23 22:31 Dose: 12.5 mg Nystatin (Nystatin Susp 500,000 Unit/5 Ml Udc) 500,000 unit PO QID [facility] [place] Stop: 05/30/24 08:59 Last Admin: 05/31/23 22:31 Dose: 500,000 unit Oxybutynin Chloride (Oxybutynin Chloride 5 Mg Tablet) 5 mg PO BID [facility] [place] Stop: 05/27/24 08:59 Last Admin: 05/31/23 22:31 Dose: 5 mg Pantoprazole Sodium (Pantoprazole 40 Mg Tablet.Dr) 40 mg PO BID [facility] [place] Stop: 05/30/24 08:59 Last Admin: 05/31/23 22:31 Dose: 40 mg Prochlorperazine Edisylate (Prochlorperazine Edisylate 10 Mg/2 Ml Vial) 5 mg IV- PUSH Q4H PRN PRN Reason: Nausea And Vomiting Stop: 05/27/24 04:09 Last Admin: 05/31/23 09:03 Dose: 5 mg Ranolazine (Ranolazine 500 Mg Tab.Er.12h) 500 mg PO BID [facility] Stop: 05/27/24 08:59 Last Admin: 05/31/23 22:32 Dose: 500 mg Sertraline HCl (Sertraline 100 Mg Tablet) 100 mg PO DAILY [facility] Stop: 05/27/24 08:59 Last Admin: 05/31/23 08:52 Dose: 100 mg Spironolactone (Spironolactone 25 Mg Tablet) 25 mg PO BID [facility] Stop: 05/27/24 08:59 Sucralfate (Sucralfate 1 Gm Tablet) 1 gm PO Q6HR [facility] Stop: 05/30/24 11:59 Last Admin: 06/01/23 07:02 Dose: 1 gm Zinc Oxide (Zinc Oxide 20% Ointment 56 Gm Tube) 1 applic TOPICAL PRN PRN PRN Reason: Rash Stop: 05/28/24 10:51 Zolpidem Tartrate (Zolpidem 5 Mg Tablet) 5 mg PO HS PRN PRN Reason: Insomnia Stop: 11/24/23 04:07 Last Admin: 05/30/23 20:41 Dose: 5 mg Allergies Penicillins Allergy (Severe, Verified 05/27/23 22:27) Anaphylaxis IV Dye Allergy (Severe, Uncoded 05/27/23 22:27) Anaphylaxis Results Labs 05/30/23 05:43 06/01/23 06:35 Labs: 06/01/23 06:35 BUN 39 H Creatinine 1.76 H Radiology Impressions Impressions - last 24 hours: Any impression(s) listed above is documentation that was entered by the reading physician into a diagnostic report(s) for Namrata Jack. I have reviewed the report(s) and am incorporating any findings in the treatment plan of this patient where applicable. A&P - Nephrology Assessment/Plan (1) Acute kidney injury superimposed on CKD: Plan: She has JOY possibly due to the relative hypotension in setting of infection andurinary retention (2) CKD (chronic kidney disease) stage 3, GFR 30-59 ml/min: Plan: She has CKD due to the longstanding DM, HTN and chronic cardiorenal syndrome with baseline serum creatinine 1.3 mg/dL. (3) Type 2 diabetes mellitus with diabetic chronic kidney disease: Plan: She has insulin-dependent type 2 diabetes mellitus. She was taking insulin glargine at home. (4) Hypertensive chronic kidney disease with stage 1 through stage 4 chronic kidney disease, or unspecified chronic kidney disease: Plan: Her blood pressure has improved. She was taking losartan, spironolactone, Lasixand metoprolol at home. (5) Chronic diastolic (congestive) heart failure: Plan: She appears to be well compensated. Her echocardiogram in April 2023 showed EF 65-70%, mild to moderate diastolic dysfunction, mild aortic stenosis (6) Bacteremia: Plan: Patient was presented with fever and has a positive blood culture with strep dysgalactiae. She is currently on ceftriaxone ID has been following the patient. (7) Hyponatremia: Plan: She has hyponatremia but appears to be euvolemic. This may be due to the nauseainduced or medication related like sertraline. (8) Hypokalemia: Plan: She has hypokalemia possibly due to the vomiting. Plan * Okay to resume the home dose of the Lasix * Will continue to hold home dose of the spironolactone and losartan. * Continue DM management as per the primary hospitalist team. * Continue management of the bacteremia as per ID. * Check renal function 2 to 3 days after discharge. Patient can be discharged from renal standpoint. Outpatient follow-up in our office 4 to 6 weeks. Documented By: Sydnie Milian MD 06/01/23 0853 Signed By: <Electronically signed by Sydnie Milian MD> 06/01/23 0253 [facility] Work Phone: Progress note Author Mauro Nelson [facility] February 22, 2024 11:38am Note Date/Time February 22, 2024 11: 38am [facility] [address] [place] [address] Nephrology Progress Note Signed Patient: Namrata Jack MR#: [id number] : 1955 Acct:[id number] Age/Sex: 68 / F Adm Date: 4 Loc: Room: [address] [place] [address] Type: ADM IN Attending Dr: Sawyer Dozier MD Copies to: ~ Date of Service: 02/22/2024 Subjective Subjective Narrative: Ms. Jack is a 68-year-old white female with PMH of CKD III, T2DM, diastolic heart failure with chronic edema on diuretics, mild aortic stenosis, CAD s/p 6 stents. Patient has baseline creatinine around 1.3 to 1.6 mg/dL over the last year with intermittent JOY related to diastolic CHF on diuretics. She did require Bumex drip during admission in April 2023 for volume overload. Patient was admitted on 02/12 with intractable nausea, vomiting and diarrhea that has been going on for the last 1 week. She had 2 ER visits with the same problem and she was prescribed Zofran during the previous visits however does not work for her and she has to come back to the ER. Patient had low-grade fever on admission 99.3 with peaked 100.4. Patient had generalized weakness and not ableto stand at home. Abdomen was diffusely tender. Patient had CT scan of the abdomen and pelvis without contrast on admission that was unremarkable. Urine analysis does not suggest UTI. COVID-19, flu and RSV were negative. Patient was started on IV fluid, 2 L/min oxygen and she was admitted for further evaluation. Creatinine admission was 1.5 mg/dL however creatinine continued to increase up to 3.37 mg/dL today despite IV hydration and holding amlodipine. 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 She is supposed to follow- up with renal clinic however she had multiple doctor appointments and shewas not able to do that. Creatinine has been variable between 1.5 to 1.8 mg/dL on diuretics. She had another hospitalization August 2023 with abdominal discomfort and vomiting and she was treated with Flagyl and Rocephin for what appears to be diverticulitis and she stated that she felt better. Interval history: Patient was seen and examined in her room. Denied nausea vomiting. No diarrhea. No shortness of breath. Continues to be on room air. Blood pressure has been well-controlled since resuming metoprolol and Norvasc Patient remains on Lasix 40 mg oral twice daily Currently on Invanz and Zyvox for lower extremity cellulitis Exam Physical Exam Vital Signs: Temp Pulse Resp BP Pulse Ox O2 Del Method O2 Flow Rate 97.5 F L 71 16 155/73 H 95 Room Air 1 02/22/24 07:49 02/22/24 07:49 02/22/24 07:49 02/22/24 07:49 02/22/24 07:49 02/22/24 07:49 02/15/24 20:00 FiO2 21 02/15/24 22:35 Narrative: General: No acute distress Head :atraumatic normocephalic Eyes: PERRLA. Neck: no JVD no bruit. Heart: S1-S2. RRR Respiratory: Clear to auscultation. No wheezing. No crackles Abdomen: Soft, positive bowel sounds,no tenderness. Neurology: Awake alert oriented x3. No focal deficits Extremity. No cyanosis. Both legs are wrapped up to the knees Skin: No skin rash Objective Intake and Output I&O: Intake & Output 02/19/24 02/20/24 02/21/24 02/22/24 23:59 23:59 23:59 23:59 Intake Total 1700 / 1700 100 / 100 1300 / 1300 500 / 500 Output Total 1800 / 1800 2600 / 2600 200 / 200 Balance -100 / -100 -2500 / -2500 1100 / 1100 500 / 500 Weight 332 lb 7.313 oz 382 lb 0.977 oz 380 lb 15.34 oz 381 lb 6.395 oz Meds and Allergies Meds: Active Medications Acetaminophen (Acetaminophen 325 Mg Tablet) 650 mg PO Q4H PRN PRN Reason: Pain Scale 1 - 3 or fever Stop: 02/12/25 20:56 Last Admin: 02/22/24 01:38 Dose: 650 mg Hydrocodone Bitart/Acetaminophen (Hydrocodone/Acetaminophen 5-325 Mg Tablet) 1 tab PO Q4H PRN PRN Reason: Pain Scale 6 - 10 Last Admin: 02/22/24 11:13 Dose: 1 tab Amlodipine Besylate (Amlodipine 5 Mg Tablet) 5 mg PO DAILY [facility] Stop: 02/13/25 08:59 Last Admin: 02/22/24 08:48 Dose: 5 mg Ascorbic Acid (Ascorbic Acid 500 Mg Tablet) 1,000 mg PO DAILY [facility] Stop: 02/15/25 08:59 Last Admin: 02/22/24 08:48 Dose: 1,000 mg Aspirin (Aspirin 81 Mg Tablet.Dr) 81 mg PO DAILY [facility] Stop: 02/13/25 08:59 Last Admin: 02/22/24 08:48 Dose: 81 mg Balsam Buffalo/[place] Oil (Balsam Buffalo/[place] Oil Oint 60 Gm Tube) 1 applic TOPICAL TID [facility] Stop: 02/13/25 13:59 Last Admin: 02/22/24 08:49 Dose: 1 applic Clopidogrel Bisulfate (Clopidogrel Bisulfate 75 Mg Tablet) 75 mg PO DAILY [facility] Stop: 02/13/25 08:59 Last Admin: 02/22/24 08:48 Dose: 75 mg Dextrose (Dextrose 50% In Water 25 Gm/50 Ml Syringe) 0 gm IV-PUSH PRN PRN PRN Reason: Hypoglycemia Stop: 02/12/25 20:40 Diclofenac Sodium (Diclofenac Sodium 1% Gel 100 Gm Tube) 4 gm TOPICAL QID [facility] Stop: 02/12/25 21:59 Last Admin: 02/22/24 08:49 Dose: 4 gm Docusate Sodium (Docusate 100 Mg Capsule) 100 mg PO BID [facility] Stop: 02/16/25 20:59 Last Admin: 02/22/24 08:48 Dose: 100 mg Enoxaparin Sodium (Enoxaparin 40 Mg/0.4 Ml Syringe) 40 mg SUBCUT BID@1000,2200 [facility] Stop: 02/20/25 21:59 Last Admin: 02/22/24 11:13 Dose: 40 mg Folic Acid (Cyanocobalamin/Fa/Pyridoxine 1 Tab Tablet) 1 tab PO DAILY [facility] Stop: 02/15/25 08:59 Last Admin: 02/22/24 08:48 Dose: 1 tab Furosemide (Furosemide 40 Mg Tablet) 40 mg PO BID@0800,1600 [facility] Stop: 02/17/25 15:59 Last Admin: 02/22/24 08:49 Dose: 40 mg Gabapentin (Gabapentin 600 Mg Tablet) 600 mg PO BID [facility] Stop: 02/12/25 21:29 Last Admin: 02/13/24 22:29 Dose: 600 mg Gabapentin (Gabapentin 100 Mg Capsule) 200 mg PO BID [facility] Stop: 02/13/25 08:59 Last Admin: 02/22/24 08:48 Dose: 200 mg Glucose (Dextrose 40% Gel 15 Gm Tube) 0 gm PO PRN PRN PRN Reason: Hypoglycemia Stop: 02/12/25 20:40 Hydromorphone HCl (Hydromorphone 0.5 Mg/0.5 Ml Syringe) 0.5 mg IV-PUSH Q4H PRN PRN Reason: Pain Scale 6 - 10 Last Admin: 02/22/24 11:27 Dose: 0.5 mg Ertapenem (Invanz) 1 gm in 100 mls @ 200 mls/hr IV Q24H [facility] [place] Last Admin: 02/22/24 11:13 Dose: 200 mls/hr Insulin Aspart (Insulin Aspart 300 Units/3 Ml Insuln.Pen) 0 units SUBCUT TID..[facility]; Protocol Stop: 02/12/25 21:59 Last Admin: 02/22/24 08:49 Dose: Not Given Insulin Glargine (Insulin Glargine 300 Units/3 Ml Insuln.Pen) 25 units SUBCUT BID [facility] [place] Stop: 02/15/25 20:59 Last Admin: 02/22/24 08:50 Dose: 25 units Linezolid (Linezolid 600 Mg Tablet) 600 mg PO BID [facility] [place] Stop: 02/24/24 20:59 Last Admin: 02/22/24 08:48 Dose: 600 mg Magnesium Oxide (Magnesium Oxide 400 Mg Tablet) 400 mg PO DAILY [facility] [place] Stop: 02/20/25 17:59 Last Admin: 02/22/24 08:48 Dose: 400 mg Metoclopramide HCl (Metoclopramide 10 Mg/2 Ml Vial) 5 mg IV-PUSH Q6H PRN PRN Reason: Nausea/Vomiting Stop: 02/12/25 20:40 Metoprolol Tartrate (Metoprolol Tartrate 12.5 Mg Tablet) 12.5 mg PO BID [facility] [place] Stop: 02/12/25 21:29 Last Admin: 02/22/24 08:48 Dose: 12.5 mg Oxybutynin Chloride (Oxybutynin Chloride 5 Mg Tablet) 5 mg PO BID [facility] [place] Stop: 02/14/25 20:59 Last Admin: 02/22/24 08:49 Dose: 5 mg Potassium Chloride (Potassium Chloride Er 10 Meq Tablet.Er) 30 meq PO BID [facility] Stop: 02/20/25 20:59 Last Admin: 02/22/24 08:48 Dose: 30 meq Ranolazine (Ranolazine 500 Mg Tab.Er.12h) 500 mg PO Q12H [facility] Stop: 02/12/25 20:44 Last Admin: 02/22/24 08:49 Dose: 500 mg Sertraline HCl (Sertraline 100 Mg Tablet) 100 mg PO DAILY [facility] Stop: 02/13/25 08:59 Last Admin: 02/22/24 08:48 Dose: 100 mg Simethicone (Simethicone 80 Mg Tab.Chew) 80 mg PO TID.WM.HS PRN PRN Reason: Abdominal Distention Stop: 02/19/25 20:40 Last Admin: 02/20/24 22:00 Dose: 80 mg Sodium Chloride (Sodium Chloride 0.9 % 10 Ml Syringe) 0 ml IV-PUSH PRN PRN PRN Reason: Flush Stop: 02/12/25 17:17 Last Admin: 02/18/24 08:38 Dose: 10 ml Sodium Chloride (Sodium Chloride 0.9 % 10 Ml Syringe) 0 ml IV-PUSH PRN PRN PRN Reason: Flush Stop: 02/12/25 20:56 Last Admin: 02/16/24 15:07 Dose: 10 ml Vitamin D (Cholecalciferol 25 Mcg (1,000 Units) Tablet) 100 mcg PO DAILY [facility] Stop: 02/15/25 08:59 Last Admin: 02/22/24 08:48 Dose: 100 mcg Allergies Penicillins Allergy (Severe, Verified 02/13/24 17:20) Anaphylaxis Iodinated Contrast Media Allergy (Mild, Verified 02/13/24 17:20) Anaphylaxis Results - Nephrology Labs 02/22/24 06:31 02/22/24 06:31 Labs: 02/22/24 06:31 BUN 44 H Creatinine 1.30 H Radiology Impressions Impressions - last 24 hours: Any impression(s) listed above is documentation that was entered by the reading physician into a diagnostic report(s) for Namrata Jack. I have reviewed the report(s) and am incorporating any findings in the treatment plan of this patient where applicable. A&P - Nephrology Assessment/Plan (1) Acute kidney injury: Assessment/Problem Details: Patient presented with JOY with progressive rise of serum creatinine in setting of low blood pressure, nausea, vomiting and diarrhea. Patient on IV fluid however serum creatinine still rising. Patient has no Garrett catheter however itwas reported that she has multiple voids. Although JOY could be prerenal related to nausea and vomiting, patient may possibly had ATN by the time of admission and the creatinine continues to increase. Clinically she is euvolemicto mildly hypervolemic with history of CHF. Chest x-ray on admission also showed cardiomegaly with mild congestion. * CT scan of the abdomen without contrast on admission showed no evidence of hydronephrosis * Urine analysis showed no bacteriuria or significant proteinuria. No casts. * Furosemide, metolazone and spironolactone are on hold on admission. * IV fluid was stopped on 02/14 for concern about volume overload. Urinary sodium is only 19 mmol/L, with edema and mild pulmonary congestion on chest x- ray suggestive of CHF. Patient was given a trial of furosemide with improvement of renal function * Amlodipine, metoprolol and Ranexa are on hold because of low blood pressure (2) CKD (chronic kidney disease) stage 3, GFR 30-59 ml/min: Assessment/Problem Details: Patient has CKD stage III related to diabetes and atherosclerotic renovascular disease. Baseline creatinine variable between 1.5 to 1.8 mg/dL. (3) Hyponatremia: Assessment/Problem Details: Sodium is lower than 130 in the setting of JOY, nausea and vomiting. She looks hypovolemic as well at this point (4) Leukocytosis: Assessment/Problem Details: Patient has leukocytosis with abdominal tenderness on admission. * On empirical treatment with Levaquin and Flagyl for colitis. Blood cultures are negative x 4 days. Stool for C. difficile is negative * Patient was evaluated by ID and linezolid was added to cover possible left lower extremity cellulitis (5) Intractable nausea and vomiting: Assessment/Problem Details: Patient presented with nausea and vomiting, workup still pending. GI profile was sent. Patient on Flagyl and levofloxacin (6) BMI 50.0-59.9, adult: Plan * Renal function continues to improve with diuretics suggestive that JOY is related to right-sided heart failure with renal congestion. Kidney function remains baseline * I will continue same diuretics doses with Lasix 40 mg twice daily since the patient continues to have edema. * Blood pressure improved with resuming home blood pressure medications. Will continue same doses of amlodipine and metoprolol Will continue to monitor blood pressure adjust medication as needed * Serum sodium level corrected. Will continue to monitor sodium level with Lasix. Keep output more than input * Patient is on ertapenem and Zyvox for lower extremities cellulitis. Wound care service following the patient for lower extremity wounds * Monitor daily intake, output and renal panel She is stable from nephrology standpoint to be discharged today with the currentdiuretics dose Renal team will continue to follow. Call if any question or concern Documented By: Mauro Nelson MD 02/22/24 1136 Signed By: <Electronically signed by Mauro Nelson MD> 02/22/24 1138 [facility] Work Phone: Chief Complaint and Reason for Visit Chief Complaint fall Chief Complaint I25.110 E78.5 R07.9 Z98.62 Z01.818 Chief Complaint I25.110 E78.5 R07.9 Z98.62 Z01.818 fall Chief Complaint I25.110 E78.5 R07.9 Z98.[address] CALHOUN IN VAG AREA AND LT LEG Reason for Visit Acute on chronic david stolic heart failure Diabetes mellitus GERD (gastroesophageal reflux disease) HTN (hypertension) Urinary tract infection Chief Complaint I25.110 E78.5 R07.9 Z98.[address] CALHOUN IN VAG AREA AND LT LEG Reason for Visit Acute on chronic david stolic heart failure CAD (coronary artery disease) Coronary angioplasty status Diabetes mellitus GERD (gastroesophageal reflux disease) HTN (hypertension) Hypomagnesemia Morbid obesity with BMI of 50.0-59.9, adult Pickwickian syndrome Right heart failure Urinary tract infection Chief Complaint I25.110 E78.5 R07.9 Z98.[address] CALHOUN IN VAG AREA AND LT LEG weakness I50.810;N17.9 Reason for Visit Acute on chronic david stolic heart failure CAD (coronary artery disease) Coronary angioplasty status Diabetes mellitus GERD (gastroesophageal reflux disease) HTN (hypertension) Hypomagnesemia Morbid obesity with BMI of 50.0-59.9, adult Pickwickian syndrome Right heart failure Urinary tract infection Chief Complaint I25.110 E78.5 R07.9 Z98.[address] CALHOUN IN VAG AREA AND LT LEG weakness I50.810;N17.9 gen weakness/n/v Reason for Visit Acute on chronic david stolic heart failure CAD (coronary artery disease) Coronary angioplasty status Diabetes mellitus GERD (gastroesophageal reflux disease) HTN (hypertension) Hypomagnesemia Morbid obesity with BMI of 50.0-59.9, adult Pickwickian syndrome Right heart failure Urinary tract infection Acute on chronic diastolic heart failure Acute UTI Elevated troponin Hypomagnesemia Morbid obesity Weakness Chief Complaint I25.110 E78.5 R07.9 Z98.[address] CALHOUN IN VAG AREA AND LT LEG weakness I50.810;N17.9 gen weakness/n/v Reason for Visit Acute on chronic david stolic heart failure CAD (coronary artery disease) Coronary angioplasty status Diabetes mellitus GERD (gastroesophageal reflux disease) HTN (hypertension) Hypomagnesemia Morbid obesity with BMI of 50.0-59.9, adult Pickwickian syndrome Urinary tract infection Acute kidney injury superimposed on CKD Acute on chronic diastolic heart failure Acute UTI Bacteremia Chronic diastolic (congestive) heart failure CKD (chronic kidney disease) stage 3, GFR 30-59 ml/min Elevated troponin [id number] Hypokalemia Hypomagnesemia Hyponatremia Morbid obesity Positive blood culture Type 2 diabetes mellitus with diabetic chronic kidney disease Weakness Chief Complaint fall PER DR CALHOUN IN VAG AREA AND LT LEG weakness I50.810;N17.9 gen weakness/n/v Reason for Visit Acute on chronic david stolic heart failure CAD (coronary artery disease) Coronary angioplasty status Diabetes mellitus GERD (gastroesophageal reflux disease) HTN (hypertension) Hypomagnesemia Morbid obesity with BMI of 50.0-59.9, adult Pickwickian syndrome Urinary tract infection Acute kidney injury superimposed on CKD Acute on chronic diastolic heart failure Acute UTI Bacteremia Chronic diastolic (congestive) heart failure CKD (chronic kidney disease) stage 3, GFR 30-59 ml/min Elevated troponin [id number] Hypokalemia Hypomagnesemia Hyponatremia Morbid obesity Positive blood culture Type 2 diabetes mellitus with diabetic chronic kidney disease Weakness Chief Complaint N17.9 I50.32 E11.22 N/V Reason for Visit Abdominal pain Cellulitis CKD (chronic kidney disease) stage 3, GFR 30-59 ml/min Constipation Fever Hypokalemia Increased urinary frequency Sepsis Type 2 diabetes mellitus with diabetic chronic kidney disease Chief Complaint N/V Reason for Visit Abdominal pain Cellulitis CKD (chronic kidney disease) stage 3, GFR 30-59 ml/min Constipation Diverticulitis Fever GERD (gastroesophageal reflux disease) HTN (hypertension) Hypokalemia Increased urinary frequency Morbid obesity Morbid obesity with BMI of 50.0-59.9, adult Sepsis Type 2 diabetes mellitus with diabetic chronic kidney disease Chief Complaint N/V fall Reason for Visit Abdominal pain Cellulitis CKD (chronic kidney disease) stage 3, GFR 30-59 ml/min Constipation Diverticulitis Fever GERD (gastroesophageal reflux disease) HTN (hypertension) Hypokalemia Increased urinary frequency Morbid obesity Morbid obesity with BMI of 50.0-59.9, adult Sepsis Type 2 diabetes mellitus with diabetic chronic kidney disease Chief Complaint Ref By Lashonda santiago For Cellulitis Of Open Wound i70.213 i83.813 Reason for Visit Diabetic neuropathy Hemosiderin pigmentation of skin Hyperpigmentation Inflammation Lymphedema of both lower extremities Lymphorrhea Morbid obesity with BMI of 50.0-59.9, adult Type 2 diabetes mellitus with diabetic chronic kidney disease Ulcer of left lower leg Ulcer of right lower leg Venous (peripheral) insufficiency Weakness Chief Complaint Ref By Lashonda santiago For Cellulitis Of Open Wound i70.213 i83.813 Fall Reason for Visit Diabetic neuropathy Hemosiderin pigmentation of skin Hyperpigmentation Inflammation Lymphedema of both lower extremities Lymphorrhea Morbid obesity with BMI of 50.0-59.9, adult Type 2 diabetes mellitus with diabetic chronic kidney disease Ulcer of left lower leg Ulcer of right lower leg Venous (peripheral) insufficiency Weakness Chief Complaint Ref By Lashonda santiago For Cellulitis Of i70.213 i83.813 Fall Open Wound 3 WK F/U; PVR'S, FULL FUNCTIONAL BOTH LEGS [facility] Reason for Visit Diabetic neuropathy Hemosiderin pigmentation of skin Hyperpigmentation Inflammation Lymphedema of both lower extremities Lymphorrhea Morbid obesity with BMI of 50.0-59.9, adult Type 2 diabetes mellitus with diabetic chronic kidney disease Ulcer of left lower leg Ulcer of right lower leg Venous (peripheral) insufficiency Weakness Chief Complaint Ref By Lashonda santiago For Cellulitis Of i70.213 i83.813 Fall 3 WK F/U; PVR'S, FULL FUNCTIONAL BOTH LEGS [facility] [place] Open Wound flu symptoms Reason for Visit Venous stasis ulcers of both lower extremities Diabetic neuropathy Hemosiderin pigmentation of skin Hyperpigmentation Inflammation Lymphedema of both lower extremities Lymphorrhea Morbid obesity with BMI of 50.0-59.9, adult 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 Ulcer of left lower leg Ulcer of right lower leg Venous (peripheral) insufficiency Weakness Chief Complaint Ref By Lashonda santiago For Cellulitis Of i70.213 i83.813 Fall 3 WK F/U; PVR'S, FULL FUNCTIONAL BOTH LEGS [facility] [place] Wound flu symptoms gen weakness gen weakness Reason for Visit Venous stasis ulcers of both lower extremities Diabetic neuropathy Hemosiderin pigmentation of skin Hyperpigmentation Inflammation Lymphedema of both lower extremities Lymphorrhea Morbid obesity with BMI of 50.0-59.9, adult 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 Ulcer of left lower leg Ulcer of right lower leg Venous (peripheral) insufficiency Weakness Acute hyponatremia Acute respiratory failure with hypoxia BMI 50.0-59.9, adult CAD (coronary artery disease) Dehydration Diabetes mellitus with hyperglycemia Diabetic neuropathy Diabetic retinopathy Diarrhea Fever Hypovolemia Intractable nausea and vomiting Morbid obesity with BMI of 50.0-59.9, adult Nausea & vomiting Pickwickian syndrome Chief Complaint Ref By Lashonda santiago For Cellulitis Of i70.213 i83.813 Fall 3 WK F/U; PVR'S, FULL FUNCTIONAL BOTH LEGS [facility] [place] Open Wound flu symptoms gen weakness gen weakness gen weakness gen weakness gen weakness gen weakness gen weakness Reason for Visit Venous stasis ulcers of both lower extremities Diabetic neuropathy Hemosiderin pigmentation of skin Hyperpigmentation Inflammation Lymphedema of both lower extremities Lymphorrhea Morbid obesity with BMI of 50.0-59.9, adult 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 Ulcer of left lower leg Ulcer of right lower leg Venous (peripheral) insufficiency Weakness Acute hyponatremia Acute respiratory failure with hypoxia BMI 50.0-59.9, adult CAD (coronary artery disease) CKD (chronic kidney disease) stage 3, GFR 30-59 ml/min Coronary angioplasty status Dehydration Diabetes mellitus with hyperglycemia Diabetic neuropathy Diabetic retinopathy Fever GERD (gastroesophageal reflux disease) Hypokalemia Hypomagnesemia Hyponatremia Hypovolemia Inflammation Intractable nausea and vomiting Leukocytosis Morbid obesity Morbid obesity with BMI of 50.0-59.9, adult Nausea & vomiting NSVT (nonsustained ventricular tachycardia) Pickwickian syndrome Venous stasis ulcers of both lower extremities Family History No Family History Records Found Relationship Condition Age at Onset Recorded Date/T marva father Coronary artery disease Unknown sister Coronary artery disease Unknown brother Coronary artery disease Unknown Unknown Family Member Name Dates Details Family history of myocardial infarction: Father, Sister, Brother(V17.3, Z82.49) Status:Active Family history of PTCA: Brot her(V17.49, Z82.49) Status:Active Family history of arterioscl erotic cardiovascular disease: Brother(V17.49, Z82.49) Status:Active Unknown Family Member Name Dates Details Family history of myocardial infarction: Father, Sister, Brother(V17.3, Z82.49) Status:Active Family history of PTCA: Brot her(V17.49, Z82.49) Status:Active Family history of arterioscl erotic cardiovascular disease: Brother(V17.49, Z82.49) Status:Active Unknown Family Member Name Dates Details Family history of myocardial infarction: Father, Sister, Brother(V17.3, Z82.49) Status:Active Family history of PTCA: Brot her(V17.49, Z82.49) Status:Active Family history of arterioscl erotic cardiovascular disease: Brother(V17.49, Z82.49) Status:Active Unknown Family Member Name Dates Details Family history of myocardial infarction: Father, Sister, Brother(V17.3, Z82.49) Status:Active Family history of PTCA: Brot her(V17.49, Z82.49) Status:Active Family history of arterioscl erotic cardiovascular disease: Brother(V17.49, Z82.49) Status:Active Relationship Condition Age at Onset Recorded Date/T marva father Coronary artery disease Unknown Acute myocardial infarction Unknown sister Coronary artery disease Unknown brother Coronary artery disease Unknown Unknown Family Member Name Dates Details Family history of myocardial infarction: Father, Sister, Brother(V17.3, Z82.49) Status:Active Family history of PTCA: Brot her(V17.49, Z82.49) Status:Active Family history of arterioscl erotic cardiovascular disease: Brother(V17.49, Z82.49) Status:Active Relationship Condition Age at Onset Recorded Date/T marva father Coronary artery disease Unknown Acute myocardial infarction Unknown sister Coronary artery disease Unknown brother Coronary artery disease Unknown father Unknown History of stroke Unknown Heart disease Unknown Hypertension Unknown Diabetes mellitus Unknown Not Specified History of malignant neoplasm of cervix Unknown Malignant neoplasm Unknown Unknown Family history of mental disorder Unknown Advance Directives No Advanced Directives Records Found Advance Directive Response Recorded Date/ Time Advance Directives Yes June 08, 2019 8:33pm Directive Description Status Resuscitation FULL CODE Verified By [facility] Record Only Advance Directive Response Recorded Date/ Time Advance Directives No June 10, 2023 10:16am Advance Directive Response Recorded Date/ Time Advance Directives No June 10, 2023 9:16am Summary Purpose Chief Complaint NAMRATA JACK is being seen for follow-up of a hospitalization for.[facility] [place]/23.[facility] [place] 05/30/23. Additional Source Comments Care Teams (unrecognized sec tion and content) Team Status: Active Member Role Status Susana Bergeron MD Primary Care Provider Active Team Status: Inactive Member Role Status Susana Bergeron MD Primary Care Provider Active Andres Orellana DO Emergency Provider Active Medardo Darling DO Admit Provider Active Mazin Ortiz MD Attending Provider Active Team Status: Active Member Role Status Susana Bergeron MD Primary Care Provider Active Andres Orellana DO Emergency Provider Active Medardo Darling DO Admit Provider, Attending Provider Active Team Status: Inactive Member Role Status Susana Bergeron MD Primary Care Provider Active Aleksandr Pascual MD Attending Provider Active Team Status: Inactive Member Role Status Susana Bergeron MD Primary Care Provider Active Yury Barry DO RES Active Antolin Apodaca Jr, MD Emergency Provider Active Team Status: Inactive Member Role Status Susana Bergeron MD Primary Care Provider Active Joceline Ortega MD Attending Provider Active Team Status: Inactive Member Role Status Susana Bergeron MD Primary Care Provider Active Antolin Apodaca Jr, MD Emergency Provider Active Team Status: Active Member Role Status Susana Bergeron MD Primary Care Provider Active Ann Gillis MD Emergency Provider Active Medardo Darling DO Admit Provider, Attending Provider Active Team Status: Inactive Member Role Status Susana Bergeron MD Primary Care Provider Active Ann Gillis MD Emergency Provider Active Medardo Darling DO Admit Provider Active Ari Fernández MD Other Provider Active David Lane MD Attending Provider Active Team Status: Inactive Member Role Status Susana Burnham , DO Emergency Provider Active Latrice Bergeron MD Primary Care Provider Active Team Status: Inactive Member Role Status Susana Bergeron MD Primary Care Provider Active Ari Fernández MD Attending Provider Active Team Status: Active Member Role Status Susana Bergeron MD Primary Care Provider Active Hamzah Burnham , DO Emergency Provider Active Paige Aburto MD Admit Provider, Attending Provide r Active Team Status: Inactive Member Role Status Susana Bergeron MD Primary Care Provider Active Hamzah Burnham , DO Emergency Provider Active Paige Aburto MD Admit Provider Active Deep Eubanks MD Other Provider Active Fahad Dobson MD Attending Provider Active Sydnie Milian MD Other Provider Active Team Status: Inactive Member Role Status Susana Bergeron MD Primary Care Provider Active Hamzah Burnham , DO Emergency Provider Active Parking Meter Attendant Relationship Specialty Start Date End Latrice Adhikari MD [address] [place] [address] PCP - General 03/06/23 Team Status: Inactive Member Role Status Susana Monterroso MD Attending Provider Active Start: November 30, 2023 End: November 30, 2023 Team Status: Active Member Role Status Susana Bergeron MD Primary Care Provider Active St art: November 30, 2023 Cheryl De La Garza APRN Attending Provider Active St art: November 30, 2023 Team Status: Inactive Member Role Status Susana Bergeron MD Primary Care Provider Active St art: December 13, 2023 End: December 13, 2023 Andres Monterroso MD Attending Provider Active Start: December 13, 2023 End: December 13, 2023 Team Status: Inactive Member Role Status Susana Kellogg DO Emergency Provider Active Sta rt: December 14, 2023 End: December 14, 2023 Latrice Bergeron MD Primary Care Provider Active St art: December 14, 2023 End: December 14, 2023 Team Status: Active Member Role Status Susana Bergeron MD Primary Care Provider Active St art: December 21, 2023 Cheryl De La Garza APRN Attending Provider Active St art: December 21, 2023 Team Status: Inactive Member Role Status Susana Bergeron MD Primary Care Provider Active St art: December 21, 2023 End: December 21, 2023 Andres Monterroso MD Attending Provider Active Start: December 21, 2023 End: December 21, 2023 Team Status: Inactive Member Role Status Susana Bergeron MD Primary Care Provider Active St art: January 04, 2024 End: January 04, 2024 Cheryl De La Garza APRN Attending Provider Active St art: January 04, 2024 End: January 04, 2024 Team Status: Inactive Member Role Status Susana Bergeron MD Primary Care Provider Active St art: February 13, 2024 End: February 13, 2024 Cas Martins MD RES Active Sta rt: February 13, 2024 End: February 13, 2024 Andres Orellana DO Emergency Provider Active Start: February 13, 2024 End: February 13, 2024 Team Status: Active Member Role Status Susana Bergeron MD Primary Care Provider Active St art: February 13, 2024 Celsa Ratliff , [facility]- Emergency Provider Active Start: February 13, 2024 Vincenzo Ragsdale DO Admit Provider , Attending Provider Active Start: February 13, 2024 Team Status: Active Member Role Status Susana Bergeron MD Primary Care Provider Active St art: February 13, 2024 Celsa Ratliff , [facility] Emergency Provider Active Start: February 13, 2024 Vincenzo Ragsdale , DO Admit Provider , Attending Provider, Other Provider Active Start: February 13, 2024 Team Status: Inactive Member Role Status Susana Bergeron MD Primary Care Provider Active St art: February 13, 2024 End: February 22, 2024 Celsa Ratliff , [facility] Emergency Provider Active Start: February 13, 2024 End: February 22, 2024 Vincenzo Ragsdale , DO Admit Provider Active Start: February 13, 2024 End: February 22, 2024 Ari Fernández MD Other Provider Active Start: A pril 2023 End: February 22, 2024 Deep Eubanks MD Other Provider Active Start: February 13, 2024 End: February 22, 2024 Sawyer Dozier MD Attending Provider Active Sta rt: February 13, 2024 End: February 22, 2024 Brooke Del Cid RN Other Provider Active Star t: February 13, 2024 End: February 22, 2024 W Piter Benson DO Other Provider Active Start : February 13, 2024 End: February 22, 2024 Christa Jaime MD Other Provider Active Start: February 13, 2024 End: February 22, 2024 Jermaine Rogel MD Other Provider Active Start: February 13, 2024 End: February 22, 2024 Pinky Kern MD Other Provider Active St art: February 13, 2024 End: February 22, 2024 Galileo Kennedy MD Other Provider Active Start: February 13, 2024 End: February 22, 2024 Brinda Grimes APRN Other Provider Active Start : February 13, 2024 End: February 22, 2024 Joceline Ortega MD Other Provider Active Start: A pril 2023 End: February 22, 2024 Olinda Mccarthy MD Other Provider Active Start: February 13, 2024 End: February 22, 2024 Connie Alba MD Other Provider Active Start: A pril 2023 End: February 22, 2024 Raquel Schneider , [facility]- Other Provider Active Sta rt: February 13, 2024 End: February 22, 2024 Clarice Mcguire MD Other Provider Active Start: February 13, 2024 End: February 22, 2024 Team Status: Active Member Role Status Dates Latrice Bergeron MD Primary Care Provider Active St art: February 15, 2024 Celsa Ratliff [facility]- Emergency Provider Active Start: February 15, 2024 Vincenzo Ragsdale DO Admit Provider , Other Provider Active Start: February 15, 2024 Ari Fernández MD Other Provider Active Start: A pril 2023 Deep Eubanks MD Attending Provider, Other Provider Active Start: February 15, 2024 Team Status: Active Member Role Status Dates Latrice Bergeron MD Primary Care Provider Active St art: February 15, 2024 Celsa Ratliff [facility] Emergency Provider Active Start: February 15, 2024 Vincenzo Ragsdale DO Admit Provider , Other Provider Active Start: February 15, 2024 Ari Fernández MD Attending Provider, Other Provider Active Start: February 15, 2024 Deep Eubanks MD Other Provider Active Start: February 15, 2024 Team Status: Active Member Role Status Dates Latrice Bergeron MD Primary Care Provider Active St art: February 20, 2024 Celsa Ratliff , [facility] Emergency Provider Active Start: February 20, 2024 Vincenzo Ragsdale , Admit Provider Active Start: February 20, 2024 Ari Fernández MD Other Provider Active Start: A pril 2023 Deep Eubanks MD Other Provider Active Start: February 20, 2024 Sawyer Dozier MD Attending Provider, Other Provider Active Start: February 20, 2024 Team Status: Active Member Role Status Dates Latrice Bergeron MD Primary Care Provider Active St art: February 22, 2024 Celsa Ratliff , [facility] Emergency Provider Active Start: February 22, 2024 Vincenzo Ragsdale , Admit Provider Active Start: February 22, 2024 Ari Fernández MD Other Provider Active Start: A pril 2023 Deep Eubanks MD Attending Provider, Other Provider Active Start: February 22, 2024 Sawyer Dozier MD Other Provider Active Start: February 22, 2024 Brooke Del Cid RN Other Provider Active Star t: February 22, 2024 Rui Benson DO Other Provider Active Start : February 22, 2024 Christa Jaime MD Other Provider Active Start: February 22, 2024 Jermaine Rogel MD Other Provider Active Start: February 22, 2024 Pinky Kern MD Other Provider Active St art: February 22, 2024 Galileo Kennedy MD Other Provider Active Start: February 22, 2024 Brinda Grimes APRN Other Provider Active Start : February 22, 2024 Joceline Ortega MD Other Provider Active Start: A pril 2023 Olinda Mccarthy MD Other Provider Active Start: February 22, 2024 Connie Alba MD Other Provider Active Start: A pril 2023 Raquel Schneider [facility] Other Provider Active Sta rt: February 22, 2024 Clarice Mcguire MD Other Provider Active Start: February 22, 2024 Team Status: Active Member Role Status Dates Latrice Bergeron MD Primary Care Provider Active St art: February 22, 2024 Celsa Ratliff , [facility]- Emergency Provider Active Start: February 22, 2024 Vincenzo Ragsdale DO Admit Provider Active Start: February 22, 2024 Ari Fernández MD Other Provider Active Start: A 2023 Deep Eubanks MD Other Provider Active Start: February 22, 2024 Sawyer Dozier MD Other Provider Active Start: February 22, 2024 Brooke Del Cid RN Other Provider Active Star t: February 22, 2024 Rui Benson DO Other Provider Active Start : February 22, 2024 Christa Jaime MD Other Provider Active Start: February 22, 2024 Jermaine Rogel MD Other Provider Active Start: February 22, 2024 Pinky Kern MD Other Provider Active St art: February 22, 2024 Galileo Kennedy MD Other Provider Active Start: February 22, 2024 Brinda Grimes APRN Other Provider Active Start : February 22, 2024 Joceline Ortega MD Other Provider Active Start: A 2023 Olinda Mccarthy MD Other Provider Active Start: February 22, 2024 Connie Alba MD Other Provider Active Start: A 2023 Raquel Schneider [facility] Other Provider Active Sta rt: February 22, 2024 Clarice Mcguire MD Other Provider Active Start: February 22, 2024 Mauro Nelson MD Attending Provider Active Star t: February 22, 2024 Goals (unrecognized section and content) Goals may be documented in a n alternate sectionGoals may be documented in an alternate sectionGoals may be documented in an alternate sectionGoals may be documented in an alternate sectionNo InformationGoals may be documented in an alternate sectionGoals may be documented in an alternate sectionGoals may be documented in an alternate sectionGoals may be documented in an alternate sectionGoals may be documented in an alternate section INFORMATION SOURCE (unrecogn ized section and content) DATE CREATED AUTHOR 08/02/2022 [facility] Specialist DATE CREATED AUTHOR AUTHOR'S ORGANIZ ATION 06/27/2023 [facility] DATE CREATED AUTHOR AUTHOR'S ORGANIZ ATION 06/27/2023 [employer] DATE CREATED AUTHOR AUTHOR'S ORGANIZ ATION 01/20/2024 [facility] EPIC DATE CREATED AUTHOR AUTHOR'S ORGANIZ ATION 03/02/2024 [facility] Reason for Visit (unrecogniz ed section and content) Reason Comments Other [facility] CATH POSSIBLE PCI RT RADIAL APPR CP R07.9 I25.110 HIST OF ANGIO Z98.62 FOR RECORDS PERTAINING TO PATIENTS WHO ARE OR HAVE BEEN ENROLLED IN A CHEMICAL DEPENDENCY/SUBSTANCEABUSE PROGRAM, SOME INFORMATION MAY BE OMITTED. This clinical summary was aggregated from multiple sources. Caution should be exercised in using it in the provision of clinical care. This summary normalizes information from multiple sources, and as a consequence, information in this document may materially change the coding, format and clinical context of patient data. In addition, data may be omitted in some cases. CLINICAL DECISIONS SHOULD BE BASED ON THE PRIMARY CLINICAL RECORDS. [facility] provides no warranty or guarantee of the accuracy or completeness of information in this document.
[2024-03-11 07:40] LABS: Basophils Absolute Auto 0.1 10^3/uL (0.0-0.1); Eosinophils Absolute Auto 0.3 10^3/uL (0.0-0.7); Hematocrit 32.9 % (36.0-48.0); Hemoglobin 10.7 g/dL (12.0-16.0); Immature Granulocytes Abs Auto 0.05 10^3/uL (0.00-0.03); Immature Granulocytes Pct Auto 0.7 % (0.0-0.5); Lymphocytes Absolute Auto 1.6 10^3/uL (1.2-3.8); Mean Corpuscular HGB Conc 32.5 g/dL (29.9-35.2); Mean Corpuscular Hemoglobin 31.6 pg (26.7-34.0); Mean Corpuscular Volume 97.1 fL (81.0-99.0); Mean Platelet Volume 9.4 fL (9.5-13.5); Monocytes Absolute Auto 0.6 10^3/uL (0.3-0.8); Monocytes Percent Auto 9.3 % (1.7-12.0); Neutrophils Absolute Auto 4.1 10^3/uL (1.4-6.5); Platelet Count 341 10^3/uL (150-450); Red Blood Count 3.39 10^6/uL (4.20-5.40); Red Cell Distribution Width 15.1 % (11.0-15.0); White Blood Count 6.8 10^3/uL (4.0-11.0)
[2024-03-11 09:07] LABS: Anion Gap 10.2; BUN Creatinine Ratio 16.2; Carbon Dioxide 28.7 mmol/L (21.0-32.0); Chloride 106 mmol/L (98-107); Estimated GFR (African America 56 (>=60); Estimated GFR (Non-African Ame 46 (>=60); Glucose 101 mg/dL (74-106); Potassium 3.9 mmol/L (3.5-5.1); Sodium 141 mmol/L (136-145)
== END 2024-03-11 01:06 | disposition home or self-care (01) ==
LOC: LAB 01:05
PROVIDERS: Visit Provider Family Medicine
DX: A41.9 Sepsis, unspecified organism (principal)
CPT/HCPCS: 36415; 80048; 85025